=== PATIENT | female | born 1955 | race Caucasian/White ===

== ENCOUNTER 2018-10-20 13:19 | Inpatient (IN) | payer MEDICARE, SELFPAY ==
[2018-10-20 13:20] VITALS: BP 154/105; PULSE 89; RESP 16; TEMP 37.1; O2SAT 97; BMI 44.1
[2018-10-20] MEDS: 0.9% Normal Saline 1,000 ML 1000 ML IV (14:17)
[2018-10-20] MEDS: Morphine 4 MG/ML Syringe IV ×2 (14:17→16:26)
[2018-10-20] MEDS: Ondansetron 4 MG/2 ML Vial IV ×2 (14:17→19:42)
[2018-10-20 14:21] LABS: Absolute Lymphocyte Count 1.23 X10^3/ul (0.83-4.51); Absolute Neutrophil Count 5.7 X10^3/uL (2.0-7.7); Basophil# 0.02 X10^3/uL; Basophil% 0.3 % (0-1); Eosinophil# 0.09 X10^3/uL; Eosinophils% 1.2 % (0-5); Hematocrit 39.9 % (37-47); Hemoglobin 13.1 g/dl (12.0-15.0); Lymphocyte # 1.23 X10^3/ul (4.0); Mean Corp Hgb Conc 32.8 g/gl (32-36); Mean Corpuscular Hgb 28.1 pg (27.0-32.0); Mean Corpuscular Volume 85.6 fL (81-99); Mean Platelet Vol. 9.4 fl (6.2-12.0); Monocyte# 0.69 X10^3/uL; Monocyte% 8.9 % (0-10); Neutrophil # 5.66 X10^3/uL (2.7-7.7); Neutrophil % 73.3 % (47-70); POSITIVE COUNT NO; POSITIVE DIFFERENTIAL NO; POSITIVE MORPHOLOGY NO; Platelet Count 237 K/mm3 (150-450); RBC Distribution Width SD 40.8 fl (35.1-43.9); Red Blood Count 4.66 M/mm3 (4.2-5.4); White Blood Count 7.7 K/mm3 (4.4-11.0)
[2018-10-20 14:40] LABS: ALB/GLOB Ratio 1.1 RATIO (0.9-2.4); AST(SGOT) 21 U/L (15-37); Alanine Aminotransfer ALT/SGPT 17 U/L (13-56); Albumin, Serum 3.9 g/dL (3.2-5.0); Alkaline Phosphatase 84 U/L (45-117); Anion Gap 8 (5-15); BUN 24 mg/dL (7-18); BUN/Creat Ratio 27.7 RATIO (10-20); Calcium,Total 8.5 mg/dL (8.5-10.1); Chloride 107 mmol/L (98-107); Creatinine, Serum 0.86 mg/dL (0.55-1.02); EST Glomerular Filtration Rate 70 mL/min (>60); Est Glom Filt Rate - Afr Amer 85 mL/min (>60); Estimated Creatinine Clearance 50.53 ml/min; Globulin 3.4 g/dL (2.2-4.2); Glucose 96 mg/dL (74-106); Lipase 3101 U/L (73-393); Potassium 4.4 mmol/L (3.5-5.1); Protein, Total 7.3 g/dL (6.4-8.2); Sodium Level 138 mmol/L (136-145)
--- NOTE | 2018-10-20 14:55 | CT_ITS ---
STUDY: CT ABDOMEN AND PELVIS WITH CONTRAST REASON FOR EXAM: Female, 63 years old. Abdominal pain with nausea and vomiting. Body aches. RADIATION DOSAGE (If Supplied By Facility): CTDIvol = ( 15.37 ) mGy, DLP = ( 1200.75 ) mGycm TECHNIQUE: Transaxial images were obtained from the dome of the diaphragm to the symphysis pubis without oral contrast. Isovue 300 100ml IV was administered. Sagittal and coronal images were reconstructed. Individualized dose optimization techniques were used for this CT. COMPARISON: Comparison is made with prior study dated October 07, 2016. FINDINGS: Mild increased markings at the lung bases suggestive of atelectasis. The visualized portions of the heart are within normal limits. Mild dilatation of the intrahepatic biliary ducts. This is unchanged. The patient is status post cholecystectomy. There is mild splenomegaly. Stable 5.5 mm cyst in the posterior lateral aspect of the superior aspect of the spleen. There is diffuse enlargement of the pancreas with stephanie-pancreatic edema suggesting acute pancreatitis. Normal bilateral adrenal glands. Normal right kidney. Normal left kidney. There is a small hiatal hernia. Normal small intestine. There are multiple colonic diverticula consistent with diverticulosis. The appendix is visualized and appears normal. Normal abdominal aorta. Normal inferior vena cava. Normal retroperitoneum. Normal urinary bladder. Normal abdominal wall. Normal osseous structures. CT/Abdomen/Pelvis W IV Cont ONLY IMPRESSION: Mild degree of bibasilar atelectasis. Peripancreatic inflammatory changes suggestive of acute pancreatitis. Electronically Signed: César Do, at 15:31 EDT , Service support ,
[2018-10-20 15:20] VITALS: BP 157/84; PULSE 75; RESP 18; O2SAT 96
--- NOTE | 2018-10-20 15:42 | ED.VISSUMM ---
- ER Visit Summary Date of Service: 10/20/18 Chief Complaint: Abdominal and chest pain History of Present Illness: The patient is a 63 F who tells me that she has not been feeling well for over a month. However yesterday she began to have pain all over her chest all over her abdomen and into her back. She states that the same type of pain when she had pancreatitis several years ago. She had a cholecystectomy at that time and was felt to be gallstone pancreatitis. This morning she had vomiting and the pain was much worse. She sees Dr. Juárez for surgery former smoker Physical Examination: Afebrile vital signs are stable Gen: Well-nourished well-developed morbidly obese Head: Normocephalic atraumatic Eyes: Perrl EOMI ENT: TMs clear no rhinorrhea moist mucous membranes Neck: Supple no lymphadenopathy no JVD nontender CVS: Regular rate rhythm no murmurs normal S1-S2 Respiratory: No distress clear to auscultation bilaterally chest nontender Abdomen: Soft diffusely tender to palpation nondistended normal bowel sounds no masses Back: Nontender Extremity: Nontender no edema Skin: Normal color no rash Neuro: alert orientated ?3 CN II-XII intact normal strength sensation reflexes gait cerebellar Psych: Normal affect normal mood Test Results: White count is normal at 7.7. Lipase elevated 3101. No evidence of biliary obstruction. CT demonstrates peripancreatic inflammatory changes. EKG shows sinus rhythm at a rate of 71 Emergency Department Course and Treatment: Patient received IV fluids Zofran and morphine. Plan is admission Impression: 1. Acute pancreatitis This note was generated with [employer] dictation software. It may contain incorrect words, spelling, and punctuation that were not noted in review of the chart prior to signing ED Disposition - Plan for ED Patient: Referrals: Mauro Hastings MD [Primary Care Provider] -
--- NOTE | 2018-10-20 16:00 | EKG12_ITS ---
Test Reason : ABNL PAIN Blood Pressure : / mmHG Vent. Rate : 066 BPM Atrial Rate : 066 BPM P-R Int : 186 ms QRS Dur : 086 ms QT Int : 424 ms P-R-T Axes : 042 -24 041 degrees QTc Int : 444 ms Normal sinus rhythm Moderate voltage criteria for LVH, may be normal variant Inferior infarct , age undetermined Abnormal ECG Confirmed by INGA GROSSMAN, JORI ([id number]), business editor DEIDRE MENDEZ ([id number]) on 10/23/2018 10:40:04 AM Referred By: Wilbur Wolff Confirmed By:JORI XIONG MD
--- NOTE | 2018-10-20 16:12 | EKG12_ITS ---
Test Reason : ABNL PAIN Blood Pressure : / mmHG Vent. Rate : 071 BPM Atrial Rate : 071 BPM P-R Int : 202 ms QRS Dur : 090 ms QT Int : 422 ms P-R-T Axes : 057 -18 036 degrees QTc Int : 458 ms Normal sinus rhythm Septal infarct , age undetermined Inferior infarct , age undertermined Abnormal ECG Confirmed by INGA GROSSMAN, JORI ([id number]), society editor DEIDRE MENDEZ ([id number]) on 10/24/2018 9:28:35 AM Referred By: Wilbur Wolff Confirmed By:JORI XIONG MD
[2018-10-20] MEDS: 0.9% Normal Saline 1,000 ML 125 ML IV ×2 (16:27→23:45)
--- NOTE | 2018-10-20 16:27 | PCM.HP.STD ---
<Marco Anderson - Last Filed: 10/20/18 16:40> Problem List (1) Pancreatitis, acute Status: Acute (2) Morbid obesity Status: Chronic (3) GERD (gastroesophageal reflux disease) Status: Chronic (4) HLD (hyperlipidemia) Status: Chronic (5) HTN (hypertension) Status: Chronic (6) Depression Status: Chronic History of Present Illness Date of Admission: 10/20/18 Chief Complaint: abdominal pain The patient is a 63 year old F with pmhx of gallstone pancreatitis s/p cholecystectomy, hx morbid obesity, hld, depression, gerd, who presents to the ER with c/o 3 day hx of abdominal pain radiating into the back and chest pain. She describes the pain as being similar to her last episode of pancreatitis. She has sharp pain in the LUQ and midepigastric region, and aching pain in the midsternal region. This has progressively worsened for the last three days. She notes chills at home. This morning she had nausea and vomiting and has been unable to keep down any oral intake. No diarrhea. She had her GB removed after the last episode by Dr. Canas. She does not see a GI specialist. CT abdomen shows pancreatitis. [] Past Medical History Past Medical History (Chronic Problems): Chronic Problems Morbid obesity (Chronic) GERD (gastroesophageal reflux disease) (Chronic) Poor dentition (Chronic) Osteoarthritis (Chronic) HLD (hyperlipidemia) (Chronic) Multiple thyroid nodules (Chronic) biopsies negative for malignancy HTN (hypertension) (Chronic) Depression (Chronic) Obesity (Chronic) Colon polyps (Chronic) Former smoker (Chronic) Allergies No Known Allergies Allergy (Verified 10/20/18 13:19) Home Medications: Ambulatory Orders Medication Instructions Recorded Sertraline HCl [Zoloft] 150 mg PO DAILY 10/03/16 Omeprazole [Prilosec] 20 mg PO DAILY 10/25/16 Quetiapine Fumarate [Seroquel] 50 mg PO DAILY 10/20/18 Simvastatin [Zocor] 40 mg PO QHS 10/20/18 Surgical History: cholecystectomy, hysterectomy - with oophorectomy for fibroids, - - endoscopic removal of colon polyps Psychiatric History: Depression [employer] History: uterine fibroids - She has had a hysterectomy Lives: Alone Smoking Status: Former smoker Tobacco Use: Non-smoker Alcohol: None Drugs: None - *Family History Maternal History Items: Cancer - Mother of colon cancer Paternal History Items: - - Father when she was quite young due to pneumonia Sibling History Items: Cancer - She has a brother who is from lung cancer Review of Systems Constitutional: Reports: Chills. Denies: Fever, Weight Change HEENT: Denies: Head Aches, Sinus Congestion, Sinus Drainage Cardiovascular: Reports: Chest Pain. Denies: Palpitations Respiratory: Reports: Shortness of Breath. Denies: Cough, Shortness of breath at rest, Sputum production Gastrointestinal: Reports: Abdominal Pain, Nausea, Vomiting. Denies: Diarrhea Genitourinary: Denies: Dysuria Musculoskeletal: Denies: Joint Pain, Joint Tenderness Skin: Denies: Rash, Wounds Neurological: Denies: Numbness, Tingling, Focal weakness Psychiatric: Denies: Anxiety, Depression, Homicidal Ideations, Suicidal Ideations Hematologic/ Lymphatic: Denies: Easy Bruising, Easy Bleeding VTE Information - Inpt Only VTE Present on Admission: No VTE Mechan Device Prophylaxis: None VTE Pharm Prophylaxis ordered?: Yes - Physical Exam General: Alert, Oriented x3, Cooperative HEENT: Atraumatic, PERRLA, EOMI, Normocephalic Neck: Supple, No JVD, Negative Carotid Bruits Lungs: Clear to auscultation, Normal air movement Cardiovascular: Regular rate, No murmurs Abdomen: Bowel Sounds Present, Soft, Obese, Tender - worst LUQ, also tender RUQ, midepigastric Extremities: No edema, Capillary Refill Less than 3 Seconds Skin: No rashes, No breakdown Musculoskeletal: No Tenderness to Palpation of Joints or Extremities Neurological: Cranial nerves II-XII grossly intact Psych/Mental Status: Normal Affect, Appropriate, Alert and oriented to time, place, person, mood and affect Vital Signs Temp Pulse Resp BP Pulse Ox 98.8 F 75 18 157/84 H 96 10/20/18 13:20 10/20/18 15:20 10/20/18 15:20 10/20/18 15:20 10/20/18 15:20 Oxygen Delivery Method Room Air Weight: 233 lb 7.512 oz Body Mass Index (BMI) 44.1 Laboratory Tests Past 24 Hrs 10/20/18 10/20/18 13:45 13:45 WBC 7.7 RBC 4.66 Hgb 13.1 Hct 39.9 MCV 85.6 MCH 28.1 MCHC 32.8 RDW 13.0 RDW Differential 40.8 Plt Count 237 MPV 9.4 Immature Gran % (Auto) 0.300 Neut % (Auto) 73.3 H Lymph % (Auto) 16.0 L [place] % (Auto) 8.9 Eos % (Auto) 1.2 Baso % (Auto) 0.3 Absolute Neuts (auto) 5.7 Absolute Lymphs (auto) 1.23 Total Counted Not Reportable Sodium 138 Potassium 4.4 Chloride 107 Carbon Dioxide 23.0 Anion Gap 8 BUN 24 H Creatinine 0.86 Estim Creat Clear Calc 50.53 Est GFR (MDRD) Af Amer 85 Est GFR (MDRD) Non-Af 70 BUN/Creatinine Ratio 27.7 H Glucose 96 Calcium 8.5 Total Bilirubin 0.60 AST 21 ALT 17 Alkaline Phosphatase 84 Total Protein 7.3 Albumin 3.9 Globulin 3.4 Albumin/Globulin Ratio 1.1 Lipase 3101 H Assessment/Plan All Active Problems Increased anion gap metabolic acidosis (Acute) Dehydration (Acute) Pancreatitis, acute (Acute) 1. Acute pancreatitis - abdominal pain/chest pain with elevated lipase, CT abdomen demonstrating pancreatitis. Hx GB pancreatitis, no longer has GB 2/[address] Canas. No WBC elevation, no fever. Intolerant of oral intake at this time. -NPO -IV fluids -supportive care with pain control/antiemetics -check lipase in am -check lipid panel -hold simvastatin, seroquel, omeprazole (all possible causes of pancreatitis) 2. Chest pain - 2/2 above. Troponin and EKG x 2 negative. No hx coronary dz. 3. GERD - iv pepcid. 4. HLD - hold statin given pancreatitis DVT ppx: lovenox This patient was seen by Marco Anderson PA-C under the supervision of Dr. Wolff. <Wilbur Wolff - Last Filed: 10/20/18 21:38> History of Present Illness This 63-year-old female with history of gallstone pancreatitis status post cholecystectomy about [address] Juárez admitted with abdominal pain radiating to back as mentioned above along with elevated lipase H consistent with acute pancreatitis. CT abdomen was done in ER and shows peripancreatic inflammatory changes. Past Medical History Allergies No Known Allergies Allergy (Verified 10/20/18 13:19) - Physical Exam General: Alert, Oriented x3, Cooperative HEENT: Atraumatic, PERRLA, EOMI, Normocephalic Neck: Supple, No JVD, Negative Carotid Bruits Lungs: No rhonchi, No wheeze, No rales, Diminished - Air entry diminished in bilateral lung bases Cardiovascular: Regular rate, No murmurs Abdomen: Bowel Sounds Present, Soft, Obese, Tender Extremities: No edema, Capillary Refill Less than 3 Seconds Skin: No rashes, No breakdown Musculoskeletal: No Tenderness to Palpation of Joints or Extremities, Arthritic Changes Lymphatic: No Cervical, Supraclavicular, or Inguinal Adenopathy Neurological: Cranial nerves II-XII grossly intact, Deep Tendon Reflexes 2+/4 and Symmetrical, Neuro grossly intact Psych/Mental Status: Normal Affect, Appropriate Vital Signs Temp Pulse Resp BP Pulse Ox 98.1 F 77 16 146/69 H 92 10/20/18 19:53 10/20/18 19:53 10/20/18 19:53 10/20/18 19:53 10/20/18 19:53 Oxygen Delivery Method Room Air Weight: 229 lb 0.964 oz Body Mass Index (BMI) 43.2 Intake and Output for Last 24 Hours 10/18/18 10/19/18 10/20/18 22:59 23:59 23:59 Intake Total 141 / 141 Output Total 0 / 0 Balance 141 / 141 Laboratory Tests Past 24 Hrs 10/20/18 10/20/18 13:45 13:45 WBC 7.7 RBC 4.66 Hgb 13.1 Hct 39.9 MCV 85.6 MCH 28.1 MCHC 32.8 RDW 13.0 RDW Differential 40.8 Plt Count 237 MPV 9.4 Immature Gran % (Auto) 0.300 Neut % (Auto) 73.3 H Lymph % (Auto) 16.0 L [place] % (Auto) 8.9 Eos % (Auto) 1.2 Baso % (Auto) 0.3 Absolute Neuts (auto) 5.7 Absolute Lymphs (auto) 1.23 Total Counted Not Reportable Sodium 138 Potassium 4.4 Chloride 107 Carbon Dioxide 23.0 Anion Gap 8 BUN 24 H Creatinine 0.86 Estim Creat Clear Calc 50.53 Est GFR (MDRD) Af Amer 85 Est GFR (MDRD) Non-Af 70 BUN/Creatinine Ratio 27.7 H Glucose 96 Calcium 8.5 Total Bilirubin 0.60 AST 21 ALT 17 Alkaline Phosphatase 84 Total Protein 7.3 Albumin 3.9 Globulin 3.4 Albumin/Globulin Ratio 1.1 Lipase 3101 H Assessment/Plan This patient was seen in conjunction with Marco JIMENEZ. I have independently interviewed and examined the patient and reviewed pertinent history, examination findings, laboratory and plan of management. I have reviewed the note and agree with the documented findings with the few additional points. In brief, patient is admitted for acute abdominal pain and elevated lipase and CT abdomen suggestive of acute pancreatitis. Currently n.p.o., IV fluid and supportive care. If abdominal pain or pancreatitis does not improve will need right upper quadrant sonogram/MRCP to look for CBD or pancreatic duct obstruction I have discussed my assessment with Marco JIMENEZ and orders have been reviewed. Code Visit Inpatient E&M: 93451 Init Hosp L3
[2018-10-20 16:28] VITALS: BMI 44.1
[2018-10-20 16:51] VITALS: BMI 43.2
[2018-10-20 17:01] VITALS: BP 155/83; PULSE 73; RESP 16; TEMP 36.7; O2SAT 95
[2018-10-20] MEDS: Enoxaparin 40 MG/0.4 ML Syringe SC (17:15)
[2018-10-20] MEDS: Morphine 2 MG/ML Syringe IV ×4 (17:16→23:45)
--- NOTE | 2018-10-20 17:44 | CASEMGMT ---
RN CM Assessment Introduced role of RN CM to patient. Patient is alert, oriented and able to participate in RN CM Assessment. Care providers, pharmacy, and demographics verified. Presentation: Admitted for Acute Pancreatitis. Was admitted 10/03-10/11/16 for Gallstone Pancreatitis. CC: Abd pain, Cp, Back pain. PCP: Dr Mauro Hastings Specialists: Cardio- Cannot recall name Preferred Pharmacy: [facility] Insurance: [employer] [facility] Prescription Benefit: Yes LNOK: Dtr Jerri Schwartz Living Arrangements: Lives alone in a ground level apartment, there is a sidewalk with 10 steps to get to her apt, however can go all the way around to avoid stairs. Ambulates with cane, using it more lately d/t dizziness. Independent with ADL's- states has been getting more difficult. 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 Transportation: Patient does not drive; utilizes Taxi, Bus, People. 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 DME: Cane, Shower Chair. Preference through Insurance. HHC: None in past, Preference through Insurance. SNF: [facility]. DC PLAN: Home with no anticipated needs. NOELLE Oshea
[2018-10-20 19:53] VITALS: BP 146/69; PULSE 77; RESP 16; TEMP 36.7; O2SAT 92
[2018-10-20 23:57] VITALS: BP 127/87; PULSE 95; RESP 18; TEMP 36.8; O2SAT 96
[2018-10-21] MEDS: Morphine 2 MG/ML Syringe IV ×7 (02:52→19:48)
[2018-10-21] MEDS: Ondansetron 4 MG/2 ML Vial IV ×3 (02:52→19:48)
[2018-10-21 05:04] VITALS: BP 153/71; PULSE 81; RESP 18; TEMP 36.8; O2SAT 93
[2018-10-21 07:23] LABS: Absolute Lymphocyte Count 0.63 X10^3/ul (0.83-4.51); Absolute Neutrophil Count 6.8 X10^3/uL (2.0-7.7); Basophil# 0.01 X10^3/uL; Basophil% 0.1 % (0-1); Eosinophil# 0.02 X10^3/uL; Eosinophils% 0.2 % (0-5); Hemoglobin 12.6 g/dl (12.0-15.0); Lymphocyte # 0.63 X10^3/ul (4.0); Lymphocyte % 7.8 % (19-41); Mean Corp Hgb Conc 32.3 g/gl (32-36); Mean Corpuscular Volume 86.7 fL (81-99); Mean Platelet Vol. 9.7 fl (6.2-12.0); Monocyte# 0.61 X10^3/uL; Monocyte% 7.6 % (0-10); Neutrophil # 6.78 X10^3/uL (2.7-7.7); Neutrophil % 84.2 % (47-70); POSITIVE COUNT NO; POSITIVE DIFFERENTIAL NO; POSITIVE MORPHOLOGY NO; Platelet Count 236 K/mm3 (150-450); RBC Distribution Width CV 12.8 % (11.6-14.6); RBC Distribution Width SD 41.1 fl (35.1-43.9); White Blood Count 8.1 K/mm3 (4.4-11.0)
[2018-10-21 08:02] LABS: Anion Gap 9 (5-15); BUN 17 mg/dL (7-18); BUN/Creat Ratio 29.7 RATIO (10-20); Calcium,Total 7.9 mg/dL (8.5-10.1); Chloride 109 mmol/L (98-107); Cholesterol 124 mg/dL (200); Creatinine, Serum 0.57 mg/dL (0.55-1.02); EST Glomerular Filtration Rate 113 mL/min (>60); Est Glom Filt Rate - Afr Amer 137 mL/min (>60); Estimated Creatinine Clearance 76.23 ml/min; Glucose 73 mg/dL (74-106); High Density Lipoprotein 49 mg/dL; Lipase 2324 U/L (73-393); Potassium 4.2 mmol/L (3.5-5.1); Sodium Level 140 mmol/L (136-145); Triglycerides 52 mg/dL; Very Low Density Lipoprotein 10 mg/dL (5-40)
[2018-10-21] MEDS: 0.9% Normal Saline 1,000 ML 125 ML IV ×3 (08:06→23:55)
[2018-10-21] MEDS: 0.9% NaCl Peripheral Flush Adult/Peds IV ×4 (08:06→15:07)
[2018-10-21 08:10] VITALS: BP 165/82; PULSE 78; RESP 18; TEMP 37.1; O2SAT 92
[2018-10-21] MEDS: Sertraline 100 MG Tablet 150 MG PO (10:08)
[2018-10-21] MEDS: Enoxaparin 40 MG/0.4 ML Syringe SC (10:08)
--- NOTE | 2018-10-21 13:12 | PCM.PROGNOTE ---
<Marco Anderson - Last Filed: 10/21/18 13:12> Subjective: Pain improved. Chills overnight. Vomited last night. None this AM. Tolerating clears now. No BM yet. - Physical Exam General: Alert, Oriented x3, Cooperative HEENT: Atraumatic, PERRLA, EOMI, Normocephalic Neck: Supple, No JVD, Negative Carotid Bruits Lungs: Clear to auscultation, Normal air movement Cardiovascular: Regular rate, No murmurs Abdomen: Bowel Sounds Present, Soft, Tender - LUQ worst, also Midepigastric. None RUQ. Extremities: No edema, Capillary Refill Less than 3 Seconds Skin: No rashes, No breakdown Musculoskeletal: No Tenderness to Palpation of Joints or Extremities Neurological: Cranial nerves II-XII grossly intact Psych/Mental Status: Normal Affect, Appropriate, Alert and oriented to time, place, person, mood and affect Vital Signs Temp Pulse Resp BP Pulse Ox 98.8 F 78 18 165/82 H 92 10/21/18 08:10 10/21/18 08:10 10/21/18 08:10 10/21/18 08:10 10/21/18 08:10 Oxygen Delivery Method Room Air Weight: 229 lb 0.964 oz Body Mass Index (BMI) 43.2 Intake and Output for Last 24 Hours 10/19/18 10/20/18 10/21/18 23:59 23:59 23:59 Intake Total 855 / 855 662 / 662 Output Total 100 / 100 Balance 755 / 755 662 / 662 Laboratory Tests Past 24 Hrs 10/20/18 10/20/18 10/21/18 13:45 13:45 06:28 WBC 7.7 8.1 RBC 4.66 4.50 Hgb 13.1 12.6 Hct 39.9 39.0 MCV 85.6 86.7 MCH 28.1 28.0 MCHC 32.8 32.3 RDW 13.0 12.8 RDW Differential 40.8 41.1 Plt Count 237 236 MPV 9.4 9.7 Immature Gran % (Auto) 0.300 0.100 Neut % (Auto) 73.3 H 84.2 H Lymph % (Auto) 16.0 L 7.8 L [place] % (Auto) 8.9 7.6 Eos % (Auto) 1.2 0.2 Baso % (Auto) 0.3 0.1 Absolute Neuts (auto) 5.7 6.8 Absolute Lymphs (auto) 1.23 0.63 L Total Counted Not Reportable Not Reportable Sodium 138 Potassium 4.4 Chloride 107 Carbon Dioxide 23.0 Anion Gap 8 BUN 24 H Creatinine 0.86 Estim Creat Clear Calc 50.53 Est GFR (MDRD) Af Amer 85 Est GFR (MDRD) Non-Af 70 BUN/Creatinine Ratio 27.7 H Glucose 96 Calcium 8.5 Total Bilirubin 0.60 AST 21 ALT 17 Alkaline Phosphatase 84 Total Protein 7.3 Albumin 3.9 Globulin 3.4 Albumin/Globulin Ratio 1.1 Triglycerides Cholesterol LDL Cholesterol VLDL Cholesterol HDL Cholesterol Lipase 3101 H 10/21/18 06:28 WBC RBC Hgb Hct MCV MCH MCHC RDW RDW Differential Plt Count MPV Immature Gran % (Auto) Neut % (Auto) Lymph % (Auto) [place] % (Auto) Eos % (Auto) Baso % (Auto) Absolute Neuts (auto) Absolute Lymphs (auto) Total Counted Sodium 140 Potassium 4.2 Chloride 109 H Carbon Dioxide 22.0 Anion Gap 9 BUN 17 Creatinine 0.57 Estim Creat Clear Calc 76.23 Est GFR (MDRD) Af Amer 137 Est GFR (MDRD) Non-Af 113 BUN/Creatinine Ratio 29.7 H Glucose 73 L Calcium 7.9 L Total Bilirubin AST ALT Alkaline Phosphatase Total Protein Albumin Globulin Albumin/Globulin Ratio Triglycerides 52 Cholesterol 124 LDL Cholesterol 65 VLDL Cholesterol 10 HDL Cholesterol 49 Lipase 2324 H Medical Necessity - Tobacco Use Smoking Status: Former smoker Tobacco Use: Non-smoker Assessment/Plan All Active Problems Increased anion gap metabolic acidosis (Acute) Dehydration (Acute) Pancreatitis, acute (Acute) 1. Acute pancreatitis - abdominal pain/chest pain with elevated lipase, CT abdomen demonstrating pancreatitis. Hx GB pancreatitis, no longer has GB 2/[address] Cnaas. No WBC elevation, no fever. -pain and nausea improved -Lipase down -advance diet as tolerated. -IV fluids -supportive care with pain control/antiemetics -lipid panel with normal triglycerides -hold simvastatin, seroquel, omeprazole (all possible causes of pancreatitis) -consider outpatient GI follow up 2. Chest pain - 2/2 above. Troponin and EKG x 2 negative. No hx coronary dz. No further workup. 3. GERD - iv pepcid. 4. HLD - hold statin given pancreatitis 5. Depression - ssri continued. DVT ppx: lovenox This patient was seen by Marco Anderson PA-C under the supervision of Dr. Laboy <Veena Laboy - Last Filed: 10/21/18 16:14> - Physical Exam Vital Signs Temp Pulse Resp BP Pulse Ox 98.2 F 74 18 151/60 H 96 10/21/18 15:00 10/21/18 15:00 10/21/18 15:00 10/21/18 15:00 10/21/18 15:00 Oxygen Delivery Method Room Air Weight: 229 lb 0.964 oz Body Mass Index (BMI) 43.2 Intake and Output for Last 24 Hours 10/19/18 10/20/18 10/21/18 23:59 23:59 23:59 Intake Total 855 / 855 1778 / 1778 Output Total 100 / 100 1100 / 1100 Balance 755 / 755 678 / 678 Laboratory Tests Past 24 Hrs 10/21/18 10/21/18 06:28 06:28 WBC 8.1 RBC 4.50 Hgb 12.6 Hct 39.0 MCV 86.7 MCH 28.0 MCHC 32.3 RDW 12.8 RDW Differential 41.1 Plt Count 236 MPV 9.7 Immature Gran % (Auto) 0.100 Neut % (Auto) 84.2 H Lymph % (Auto) 7.8 L [place] % (Auto) 7.6 Eos % (Auto) 0.2 Baso % (Auto) 0.1 Absolute Neuts (auto) 6.8 Absolute Lymphs (auto) 0.63 L Total Counted Not Reportable Sodium 140 Potassium 4.2 Chloride 109 H Carbon Dioxide 22.0 Anion Gap 9 BUN 17 Creatinine 0.57 Estim Creat Clear Calc 76.23 Est GFR (MDRD) Af Amer 137 Est GFR (MDRD) Non-Af 113 BUN/Creatinine Ratio 29.7 H Glucose 73 L Calcium 7.9 L Triglycerides 52 Cholesterol 124 LDL Cholesterol 65 VLDL Cholesterol 10 HDL Cholesterol 49 Lipase 2324 H Assessment/Plan Patient seen by Marco Anderson PA-C under my supervision Patient was admitted with a complaint of abdominal pain and was found to have elevated lipase and CT also confirmed pancreatitis. He does have a history of previous pancreatitis attributed to gallstones and she is status post cholecystectomy. She is been managed for acute pancreatitis. Patient seen and examined this morning. Abdominal pain had resolved. She had a complaint of nausea and vomiting. She denied any fever chills or palpitations. Review of systems otherwise negative. Labs and vitals reviewed. o/e: Vital Signs Height 5 ft 1 in Weight: 229 lb 0.964 oz Weight in Pounds 229.1 lbs Pulse Ox 96 Temperature 98.2 F Pulse Rate 74 Respiratory Rate 18 Blood Pressure 151/60 Blood Pressure Position Semi-Fowlers General: Alert, Oriented x3, Cooperative HEENT: Atraumatic, PERRLA, EOMI, Normocephalic Neck: Supple, No JVD, Negative Carotid Bruits Lungs: Clear to auscultation, Normal air movement Cardiovascular: Regular rate, No murmurs Abdomen: Bowel Sounds Present, Soft, no abdominal tenderness, no guarding or rebound tenderness. Extremities: No edema, Capillary Refill Less than 3 Seconds Skin: No rashes, No breakdown Musculoskeletal: No Tenderness to Palpation of Joints or Extremities Neurological: Cranial nerves II-XII grossly intact Psych/Mental Status: Normal Affect, Appropriate, Alert and oriented to time, place, person, mood and affect Plan is to is continue hydration with IV fluid. Start on clear liquid diet and advance as tolerated. Continue current pain medication. Rest of management as per Marco Anderson PA-C's note which I have reviewed and agree with. Code Visit Inpatient E&M: 54551 Subs Hosp L3
--- NOTE | 2018-10-21 13:16 | NURSING ---
PT RESTING QUIETLY IN BED, EYES CLOSED, RESP EASY
[2018-10-21 15:00] VITALS: BP 151/60; PULSE 74; RESP 18; TEMP 36.8; O2SAT 96
[2018-10-21 20:00] VITALS: BP 137/97; PULSE 83; RESP 16; TEMP 37.1; O2SAT 97
[2018-10-22] VITALS (10 sets, daily range): BP systolic 155–200; BP diastolic 69–106; PULSE 70–81; RESP 14–18; TEMP 36.6–37.2; O2SAT 92–96
[2018-10-22] MEDS: Ondansetron 4 MG/2 ML Vial IV ×4 (02:54→23:22)
[2018-10-22] MEDS: Morphine 2 MG/ML Syringe IV ×7 (02:54→23:22)
--- NOTE | 2018-10-22 04:29 | NURSING ---
This RN went into patients room to VS and do assessment this Am, patient stated she had vomited again this shift, emesis bag present at bedside- emptied at this RN, bile present. This RN noted that patient was very diaphoretic, patient wanted to take a shower. VS assessed- BP 155/80 and T 98.9. This RN assisted patient into the shower. New bed linens applied during this time.
[2018-10-22] MEDS: 0.9% NaCl Peripheral Flush Adult/Peds IV ×5 (07:25→20:13)
[2018-10-22] MEDS: 0.9% Normal Saline 1,000 ML 125 ML IV ×2 (08:55→17:03)
[2018-10-22] MEDS: Enoxaparin 40 MG/0.4 ML Syringe SC (09:33)
[2018-10-22] MEDS: Sertraline 100 MG Tablet 150 MG PO (09:33)
[2018-10-22] MEDS: proMETHazine 25 MG/ML Syringe 12.5 MG IV ×2 (11:41→20:13)
--- NOTE | 2018-10-22 12:17 | PCM.PROGNOTE ---
<Marco Anderson - Last Filed: 10/22/18 12:17> Subjective: Increased N/V and LUQ / Midepigastric abd pain this AM. Added phenergan/kpad. Discussed careful, slow, trial of clears today - Physical Exam General: Alert, Oriented x3, Cooperative HEENT: Atraumatic, PERRLA, EOMI, Normocephalic Neck: Supple, No JVD, Negative Carotid Bruits Lungs: Clear to auscultation, Normal air movement Cardiovascular: Regular rate, No murmurs Abdomen: Bowel Sounds Present, Soft, Non Tender Extremities: No edema, Capillary Refill Less than 3 Seconds Skin: No rashes, No breakdown Musculoskeletal: No Tenderness to Palpation of Joints or Extremities Neurological: Cranial nerves II-XII grossly intact Psych/Mental Status: Normal Affect, Appropriate, Alert and oriented to time, place, person, mood and affect Vital Signs Temp Pulse Resp BP Pulse Ox 98.3 F 76 14 166/69 H 92 10/22/18 07:42 10/22/18 07:48 10/22/18 07:48 10/22/18 09:39 10/22/18 07:48 Oxygen Delivery Method Room Air Weight: 229 lb 0.964 oz Body Mass Index (BMI) 43.2 Intake and Output for Last 24 Hours 10/20/18 10/21/18 10/22/18 23:59 23:59 23:59 Intake Total 855 / 855 3730 / 3730 657 / 657 Output Total 100 / 100 1600 / 1600 400 / 400 Balance 755 / 755 2130 / 2130 257 / 257 Medical Necessity - Tobacco Use Smoking Status: Former smoker Tobacco Use: Non-smoker Assessment/Plan All Active Problems Increased anion gap metabolic acidosis (Acute) Dehydration (Acute) Pancreatitis, acute (Acute) 1. Acute pancreatitis - increased n/v/pain. Add phenergan/kpad. Advance diet slowly. Possible pancreatitis inducing home meds held. -non drinker -GB removed last admission for pancreatitis -trigs normal -Consider GI eval as o/p 2. Chest pain - 2/2 above. Troponin and EKG x 2 negative. No hx coronary dz. No further workup. 3. GERD - iv pepcid. 4. HLD - hold statin given pancreatitis 5. Depression - ssri continued. DVT ppx: lovenox This patient was seen by Marco Anderson PA-C under the supervision of Dr. Laboy <TamibárbaraVeena - Last Filed: 10/22/18 15:39> - Physical Exam Vital Signs Temp Pulse Resp BP Pulse Ox 98.1 F 76 18 181/78 H 93 10/22/18 14:00 10/22/18 14:00 10/22/18 14:00 10/22/18 14:00 10/22/18 14:00 Oxygen Delivery Method Room Air Weight: 229 lb 0.964 oz Body Mass Index (BMI) 43.2 Intake and Output for Last 24 Hours 10/20/18 10/21/18 10/22/18 23:59 23:59 23:59 Intake Total 855 / 855 3730 / 3730 657 / 657 Output Total 100 / 100 1600 / 1600 400 / 400 Balance 755 / 755 2130 / 2130 257 / 257 Assessment/Plan Patient seen by Marco Anderson PA-C under my supervision Patient complains of nausea and vomiting and inability to tolerate clear liquids overnight. Still complains of mild abdominal pain. Review of systems otherwise negative. Labs and vitals reviewed. o/e: Vital Signs Height 5 ft 1 in Weight: 229 lb 0.964 oz Weight in Pounds 229.1 lbs Pulse Ox 93 Temperature 98.1 F Pulse Rate 76 Respiratory Rate 18 Blood Pressure [BP] 181/78 Blood Pressure 188/91 Blood Pressure Position [BP] Semi-Fowlers Blood Pressure Position Supine General: Alert, Oriented x3, Cooperative HEENT: Atraumatic, PERRLA, EOMI, Normocephalic Neck: Supple, No JVD, Negative Carotid Bruits Lungs: Clear to auscultation, Normal air movement Cardiovascular: Regular rate, No murmurs Abdomen: Bowel Sounds Present, Soft, minimal epigastric tenderness, no guarding or rebound tenderness. Extremities: No edema, Capillary Refill Less than 3 Seconds Skin: No rashes, No breakdown Musculoskeletal: No Tenderness to Palpation of Joints or Extremities Neurological: Cranial nerves II-XII grossly intact Psych/Mental Status: Normal Affect, Appropriate, Alert and oriented to time, place, person, mood and affect Plan is to try to give clear liquids today and advance if she tolerates it. Continue current pain medication continue gentle hydration with IV fluids. Zofran for nausea. Of note, patient's blood pressure has been elevated and has been as high as 200 systolic. He has not a known hypertensive. Abdominal pain may be contributing to this. Will put on IV hydralazine as needed. If BP still remains elevated, will consider starting oral BP meds Rest of management as per Marco Anderson PA-C's note which I have reviewed and agree with. Code Visit Inpatient E&M: 42757 Subs Hosp L3
--- NOTE | 2018-10-22 14:10 | NURSING ---
STUDENT NURSES CHARTING REVIEWED AND USED FOR EDUCATIONAL LEARNING PURPOSES. BY KLAUS GERMAIN
[2018-10-22] MEDS: hydrALAZINE 20 MG/ML Vial 10 MG IV (17:02)
--- NOTE | 2018-10-22 17:17 | NURSING ---
DARNELL HERNANDEZ NOTIFIED OF PT BP 169/106. NEW ORDER RECEIVED.
--- NOTE | 2018-10-22 18:45 | NURSING ---
PT RESTING IN CHAIR, EYES CLOSED, RESP EASY
[2018-10-22] MEDS: Lisinopril 40 MG Tablet PO (20:04)
[2018-10-23] VITALS (15 sets, daily range): BP systolic 155–201; BP diastolic 68–92; PULSE 70–90; RESP 16–20; TEMP 36.8–37.5; O2SAT 94–96
[2018-10-23] MEDS: 0.9% Normal Saline 1,000 ML 125 ML IV ×3 (00:12→17:24)
[2018-10-23] MEDS: 0.9% NaCl Peripheral Flush Adult/Peds IV ×4 (01:07→22:37)
[2018-10-23] MEDS: hydrALAZINE 20 MG/ML Vial 10 MG IV ×4 (04:14→22:37)
[2018-10-23] MEDS: proMETHazine 25 MG/ML Syringe 12.5 MG IV (04:14)
[2018-10-23] MEDS: Morphine 2 MG/ML Syringe IV ×6 (04:17→22:38)
[2018-10-23 06:48] LABS: Absolute Neutrophil Count 8.5 X10^3/uL (2.0-7.7); Basophil# 0.03 X10^3/uL; Basophil% 0.3 % (0-1); Eosinophil# 0.01 X10^3/uL; Eosinophils% 0.1 % (0-5); Hematocrit 36.2 % (37-47); Lymphocyte % 7.9 % (19-41); Mean Corp Hgb Conc 33.1 g/gl (32-36); Mean Corpuscular Hgb 28.4 pg (27.0-32.0); Mean Corpuscular Volume 85.6 fL (81-99); Mean Platelet Vol. 9.8 fl (6.2-12.0); Monocyte# 0.67 X10^3/uL; Monocyte% 6.6 % (0-10); Neutrophil # 8.46 X10^3/uL (2.7-7.7); Neutrophil % 83.7 % (47-70); Platelet Count 248 K/mm3 (150-450); RBC Distribution Width CV 12.6 % (11.6-14.6); RBC Distribution Width SD 38.5 fl (35.1-43.9); Red Blood Count 4.23 M/mm3 (4.2-5.4); White Blood Count 10.1 K/mm3 (4.4-11.0)
[2018-10-23 06:56] LABS: POSITIVE COUNT NO; POSITIVE DIFFERENTIAL NO; POSITIVE MORPHOLOGY NO
[2018-10-23 07:02] LABS: Anion Gap 14 (5-15); BUN 8 mg/dL (7-18); BUN/Creat Ratio 14.9 RATIO (10-20); Calcium,Total 8.5 mg/dL (8.5-10.1); Chloride 109 mmol/L (98-107); Creatinine, Serum 0.54 mg/dL (0.55-1.02); EST Glomerular Filtration Rate 122 mL/min (>60); Est Glom Filt Rate - Afr Amer 148 mL/min (>60); Estimated Creatinine Clearance 80.47 ml/min; Glucose 76 mg/dL (74-106); Potassium 3.9 mmol/L (3.5-5.1); Sodium Level 139 mmol/L (136-145)
[2018-10-23] MEDS: Ondansetron 4 MG/2 ML Vial IV ×2 (08:33→17:07)
[2018-10-23] MEDS: Sertraline 100 MG Tablet 150 MG PO (09:53)
[2018-10-23] MEDS: Enoxaparin 40 MG/0.4 ML Syringe SC (09:54)
[2018-10-23] MEDS: Lisinopril 40 MG Tablet PO (09:54)
--- NOTE | 2018-10-23 11:37 | PCM.PROGNOTE ---
<Rosanna Arteaga - Last Filed: 10/23/18 11:45> Subjective: Patient seen and examined. Continues to complain of abdominal pain although she states improved since admission. Complains of nausea. Tolerating clear liquid diet without emesis. No other complaints. - Physical Exam General: Alert, Oriented x3, Cooperative HEENT: Atraumatic, PERRLA, EOMI, Normocephalic Neck: Supple, No JVD, Negative Carotid Bruits Lungs: Clear to auscultation, Normal air movement Cardiovascular: Regular rate, No murmurs Abdomen: Bowel Sounds Present, Soft, Non Tender, Non-Distended, Obese Extremities: No clubbing, No cyanosis, No edema, Capillary Refill Less than 3 Seconds Skin: No rashes, No breakdown Musculoskeletal: No Tenderness to Palpation of Joints or Extremities Neurological: Cranial nerves II-XII grossly intact, Neuro grossly intact Psych/Mental Status: Normal Affect, Appropriate Vital Signs Temp Pulse Resp BP Pulse Ox 98.6 F 88 16 155/68 H 94 10/23/18 08:20 10/23/18 08:20 10/23/18 08:20 10/23/18 08:20 10/23/18 08:20 Oxygen Delivery Method Room Air Weight: 229 lb 0.964 oz Body Mass Index (BMI) 43.2 Intake and Output for Last 24 Hours 10/21/18 10/22/18 10/23/18 23:59 23:59 23:59 Intake Total 3730 / 3730 2265 / 2265 756 / 756 Output Total 1600 / 1600 1200 / 1200 100 / 100 Balance 2130 / 2130 1065 / 1065 656 / 656 Laboratory Tests Past 24 Hrs 10/23/18 10/23/18 05:58 05:58 WBC 10.1 RBC 4.23 Hgb 12.0 Hct 36.2 L MCV 85.6 MCH 28.4 MCHC 33.1 RDW 12.6 RDW Differential 38.5 Plt Count 248 MPV 9.8 Immature Gran % (Auto) 1.400 H Neut % (Auto) 83.7 H Lymph % (Auto) 7.9 L [place] % (Auto) 6.6 Eos % (Auto) 0.1 Baso % (Auto) 0.3 Absolute Neuts (auto) 8.5 H Absolute Lymphs (auto) 0.80 L Total Counted Not Reportable Sodium 139 Potassium 3.9 Chloride 109 H Carbon Dioxide 16.0 L Anion Gap 14 BUN 8 Creatinine 0.54 L Estim Creat Clear Calc 80.47 Est GFR (MDRD) Af Amer 148 Est GFR (MDRD) Non-Af 122 BUN/Creatinine Ratio 14.9 Glucose 76 Calcium 8.5 Medical Necessity - Tobacco Use Smoking Status: Former smoker Tobacco Use: Non-smoker Assessment/Plan All Active Problems Increased anion gap metabolic acidosis (Acute) Dehydration (Acute) Pancreatitis, acute (Acute) 1. Acute pancreatitis-lipase trending down. Patient reports abdominal pain is improving. Continues to have intermittent nausea. Continue IV fluids. Trend lipase. Continue clear liquids for now. Patient had cholecystectomy 10/25/[address] Canas due to biliary pancreatitis. Anticipate discharge tomorrow if continued improvement with outpatient follow-up with Dr. Canas. 2. Chest pain, resolved-secondary to #1. Troponin negative. EKG without ST-T changes. 3. GERD-continue IV Pepcid. 4. Hyperlipidemia-statin regimen on hold. 5. Depression-continue SSRI. 6. Hypertension-continue lisinopril regimen. DVT prophylaxis-Lovenox subcu This patient was seen by DOM Reyna under the supervision of Dr. Laboy. <Veena Laboy - Last Filed: 10/23/18 15:32> - Physical Exam Vital Signs Temp Pulse Resp BP Pulse Ox 98.3 F 90 20 H 197/87 H 95 10/23/18 14:32 10/23/18 14:32 10/23/18 14:32 10/23/18 14:32 10/23/18 14:32 Oxygen Delivery Method Room Air Weight: 229 lb 0.964 oz Body Mass Index (BMI) 43.2 Intake and Output for Last 24 Hours 10/21/18 10/22/18 10/23/18 23:59 23:59 23:59 Intake Total 3730 / 3730 2265 / 2265 2199 / 2199 Output Total 1600 / 1600 1200 / 1200 500 / 500 Balance 2130 / 2130 1065 / 1065 1699 / 1699 Laboratory Tests Past 24 Hrs 10/23/18 10/23/18 10/23/18 05:58 05:58 05:58 WBC 10.1 RBC 4.23 Hgb 12.0 Hct 36.2 L MCV 85.6 MCH 28.4 MCHC 33.1 RDW 12.6 RDW Differential 38.5 Plt Count 248 MPV 9.8 Immature Gran % (Auto) 1.400 H Neut % (Auto) 83.7 H Lymph % (Auto) 7.9 L [place] % (Auto) 6.6 Eos % (Auto) 0.1 Baso % (Auto) 0.3 Absolute Neuts (auto) 8.5 H Absolute Lymphs (auto) 0.80 L Total Counted Not Reportable Sodium 139 Potassium 3.9 Chloride 109 H Carbon Dioxide 16.0 L Anion Gap 14 BUN 8 Creatinine 0.54 L Estim Creat Clear Calc 80.47 Est GFR (MDRD) Af Amer 148 Est GFR (MDRD) Non-Af 122 BUN/Creatinine Ratio 14.9 Glucose 76 Calcium 8.5 Lipase 406 H Assessment/Plan Patient seen by Rosanna Arteaga NP-Anthony under my supervision Patient seen and examined this morning. She still complains of nausea and some abdominal pain. She states she was unable to keep down much overnight. Denies any fever or chills, palpitations or dizziness or diarrhea. Review of systems otherwise negative. o/e: Vital Signs Height 5 ft 1 in Weight: 229 lb 0.964 oz Weight in Pounds 229.1 lbs Pulse Ox 95 Temperature 98.3 F Pulse Rate 90 Respiratory Rate 20 Blood Pressure [BP] 179/70 Blood Pressure 197/87 Blood Pressure Position [BP] Semi-Fowlers Blood Pressure Position Semi-Fowlers General: Alert, Oriented x3, Cooperative HEENT: Atraumatic, PERRLA, EOMI, Normocephalic Neck: Supple, No JVD, Negative Carotid Bruits Lungs: Clear to auscultation, Normal air movement Cardiovascular: Regular rate, No murmurs Abdomen: Bowel Sounds Present, Soft, minimal epigastric tenderness, no guarding or rebound tenderness. Extremities: No edema, Capillary Refill Less than 3 Seconds Skin: No rashes, No breakdown Musculoskeletal: No Tenderness to Palpation of Joints or Extremities Neurological: Cranial nerves II-XII grossly intact Psych/Mental Status: Normal Affect, Appropriate, Alert and oriented to time, place, person, mood and affect Plan is to advance to full liquids today to see how patient tolerates it. BP continues to be elevated with BP going up into the 200s systolic. She is on PO lisinopril 40mg daily. Will start amlodipine 10mg daily and monitor BP. IV hydralazine prn. Code Visit Inpatient E&M: 38473 Subs Hosp L3
[2018-10-23 12:21] LABS: Lipase 406 U/L (73-393)
--- NOTE | 2018-10-23 14:18 | EKG12_ITS ---
Test Reason : CP Blood Pressure : / mmHG Vent. Rate : 084 BPM Atrial Rate : 084 BPM P-R Int : 176 ms QRS Dur : 086 ms QT Int : 396 ms P-R-T Axes : 059 -21 042 degrees QTc Int : 467 ms Normal sinus rhythm Septal infarct , age undetermined Inferior infarct , age undetermined Abnormal ECG Confirmed by TERESA MCNULTY ([id number]), index editor MURALI NEWELL ([id number]) on 10/27/2018 5:11:33 PM Referred By: Wilbur Wolff Confirmed By:TERESA MCNULTY
[2018-10-23] MEDS: amLODIPine 10 MG Tablet PO (15:37)
[2018-10-23] MEDS: Polyethylene Glycol 3350 17 GM PACKET PO (17:01)
[2018-10-24] VITALS (10 sets, daily range): BP systolic 151–184; BP diastolic 63–100; PULSE 75–89; RESP 16–20; TEMP 36.7–37.1; O2SAT 87–95
[2018-10-24] MEDS: 0.9% Normal Saline 1,000 ML 125 ML IV ×2 (01:10→21:06)
[2018-10-24] MEDS: 0.9% NaCl Peripheral Flush Adult/Peds IV ×4 (05:10→21:06)
[2018-10-24] MEDS: Ondansetron 4 MG/2 ML Vial IV ×2 (05:10→21:07)
[2018-10-24] MEDS: Morphine 2 MG/ML Syringe IV ×2 (05:10→08:14)
[2018-10-24 06:11] LABS: Absolute Lymphocyte Count 0.75 X10^3/ul (0.83-4.51); Absolute Neutrophil Count 9.4 X10^3/uL (2.0-7.7); Basophil# 0.03 X10^3/uL; Basophil% 0.3 % (0-1); Eosinophil# 0.04 X10^3/uL; Eosinophils% 0.4 % (0-5); Hematocrit 35.9 % (37-47); Hemoglobin 11.9 g/dl (12.0-15.0); Lymphocyte # 0.75 X10^3/ul (4.0); Lymphocyte % 6.6 % (19-41); Mean Corp Hgb Conc 33.1 g/gl (32-36); Mean Corpuscular Hgb 28.3 pg (27.0-32.0); Mean Corpuscular Volume 85.3 fL (81-99); Mean Platelet Vol. 9.1 fl (6.2-12.0); Monocyte# 1.04 X10^3/uL; Monocyte% 9.2 % (0-10); Neutrophil # 9.42 X10^3/uL (2.7-7.7); Platelet Count 230 K/mm3 (150-450); RBC Distribution Width CV 13.3 % (11.6-14.6); RBC Distribution Width SD 41.4 fl (35.1-43.9); Red Blood Count 4.21 M/mm3 (4.2-5.4); White Blood Count 11.3 K/mm3 (4.4-11.0)
[2018-10-24 06:20] LABS: POSITIVE COUNT NO; POSITIVE DIFFERENTIAL NO; POSITIVE MORPHOLOGY NO
[2018-10-24 06:21] LABS: ALB/GLOB Ratio 0.8 RATIO (0.9-2.4); AST(SGOT) 13 U/L (15-37); Alanine Aminotransfer ALT/SGPT 15 U/L (13-56); Albumin, Serum 2.8 g/dL (3.2-5.0); Alkaline Phosphatase 85 U/L (45-117); Anion Gap 7 (5-15); BUN 8 mg/dL (7-18); Calcium,Total 7.7 mg/dL (8.5-10.1); Chloride 107 mmol/L (98-107); Creatinine, Serum 0.62 mg/dL (0.55-1.02); EST Glomerular Filtration Rate 104 mL/min (>60); Est Glom Filt Rate - Afr Amer 126 mL/min (>60); Estimated Creatinine Clearance 70.08 ml/min; Globulin 3.4 g/dL (2.2-4.2); Glucose 101 mg/dL (74-106); Potassium 3.6 mmol/L (3.5-5.1); Protein, Total 6.2 g/dL (6.4-8.2); Sodium Level 133 mmol/L (136-145)
[2018-10-24] MEDS: Lisinopril 40 MG Tablet PO (08:05)
[2018-10-24] MEDS: amLODIPine 10 MG Tablet PO (08:10)
--- NOTE | 2018-10-24 10:24 | DCINST_ITS ---
- Discharge Diagnoses Current Active Problems: Current Active and Chronic Problems Morbid obesity (Chronic) GERD (gastroesophageal reflux disease) (Chronic) You will use the following diet at home:: Cardiac Discharge Activity: Return to Normal Activity Call your doctor if you observe: Shortness of breath, Dizziness, Fainting spells, Chest pain Allergies/Adverse Reactions: Allergies No Known Allergies Allergy (Verified 10/20/18 13:19) Medications to take at Discharge Sertraline HCl [Zoloft] 150 mg PO DAILY 10/03/16 Omeprazole [Prilosec] 20 mg PO DAILY 10/25/16 Quetiapine Fumarate [Seroquel] 50 mg PO DAILY 10/20/18 Simvastatin [Zocor] 40 mg PO QHS 10/20/18 Lisinopril 40 mg PO DAILY 10/22/18 Amlodipine [Norvasc] 10 mg PO DAILY #30 tablet 10/24/18 The following prescriptions were given: Amlodipine [Norvasc] 10 mg PO DAILY #30 tablet Primary Care Physician: Mauro Hastings MD [Primary Care Provider] - Please follow up with your Primary Care Physician in: 1 Week Test Results: Test results from this visit will be discussed in further detail at your follow- up appointment, if applicable. Please Follow Up With: Terrence Canas MD When: 1-2 Weeks
--- NOTE | 2018-10-24 10:26 | PCM.DC.SUM ---
<Rosanna Arteaga - Last Filed: 10/24/18 10:31> Discharge Date and Diagnosis Date of Admission: 10/20/18 Date of Discharge: 10/24/18 - Primary Discharge Diagnosis 1. Acute pancreatitis 2. Chest pain, resolved-secondary to #1. 3. GERD 4. Hyperlipidemia 5. Depression 6. Hypertension, poorly controlled - Secondary Discharge Diagnosis Chronic Problems Morbid obesity (Chronic) GERD (gastroesophageal reflux disease) (Chronic) Poor dentition (Chronic) Osteoarthritis (Chronic) HLD (hyperlipidemia) (Chronic) Multiple thyroid nodules (Chronic) biopsies negative for malignancy HTN (hypertension) (Chronic) Depression (Chronic) Obesity (Chronic) Colon polyps (Chronic) Former smoker (Chronic) Hospital Course and Treatment Imaging Results: Diagnostic Data Abdomen/Pelvis CT 10/20/18 14:55 IMPRESSION: Mild degree of bibasilar atelectasis. Peripancreatic inflammatory changes suggestive of acute pancreatitis. Electronically Signed: César Hi, at 15:31 EDT , Service support , Operations: None Procedures: None Summary of Care Provided: The patient is a 63 year old F admitted 10/20/2018 due to abdominal pain. 1. Acute pancreatitis-lipase trended down from 3101 on admission to 406 at discharge. Tolerating regular diet. Patient had cholecystectomy 10/25/[address] Canas due to biliary pancreatitis. Follow-up with primary care physician in 1 week. Follow-up with Dr. Canas in 1-2 weeks. 2. Chest pain, resolved-secondary to #1. Troponin negative. EKG without ST-T changes. 3. GERD-continue home omeprazole regimen. 4. Hyperlipidemia-continue statin. 5. Depression-continue SSRI. 6. Hypertension-continue lisinopril regimen. Blood pressure poorly controlled during admission. Started on amlodipine 10 mg p.o. daily. Patient will need further monitoring at discharge with medication adjustments if necessary. General: Alert, Oriented x3, Cooperative HEENT: Atraumatic, PERRLA, EOMI, Normocephalic Neck: Supple, No JVD, Negative Carotid Bruits Lungs: Clear to auscultation, Normal air movement Cardiovascular: Regular rate, No murmurs Abdomen: Bowel Sounds Present, Soft, Non Tender, Non-Distended, Obese Extremities: No clubbing, No cyanosis, No edema, Capillary Refill Less than 3 Seconds Skin: No rashes, No breakdown Musculoskeletal: No Tenderness to Palpation of Joints or Extremities Neurological: Cranial nerves II-XII grossly intact, Neuro grossly intact Psych/Mental Status: Normal Affect, Appropriate Patient seen and examined prior to discharge. Physical assessment as noted above. Patient is stable for discharge with follow up recommendations as noted above. This patient was seen by DOM Reyna under the supervision of Dr. Laboy. - Physical Exam Vital Signs Temp Pulse Resp BP Pulse Ox 98.4 F 79 18 173/86 H 95 10/24/18 08:03 10/24/18 08:03 10/24/18 08:03 10/24/18 08:03 10/24/18 08:03 Oxygen Delivery Method Room Air Weight: 229 lb 0.964 oz Body Mass Index (BMI) 43.2 Intake and Output for Last 24 Hours 10/22/18 10/23/18 10/24/18 23:59 23:59 23:59 Intake Total 2265 / 2265 2199 / 2199 2302 / 2302 Output Total 1200 / 1200 1100 / 1100 Balance 1065 / 1065 1099 / 1099 2302 / 2302 Laboratory Tests Past 24 Hrs 10/23/18 10/23/18 10/24/18 05:58 22:45 05:28 WBC 11.3 H RBC 4.21 Hgb 11.9 L Hct 35.9 L MCV 85.3 MCH 28.3 MCHC 33.1 RDW 13.3 RDW Differential 41.4 Plt Count 230 MPV 9.1 Immature Gran % (Auto) 0.500 Neut % (Auto) 83.0 H Lymph % (Auto) 6.6 L [place] % (Auto) 9.2 Eos % (Auto) 0.4 Baso % (Auto) 0.3 Absolute Neuts (auto) 9.4 H Absolute Lymphs (auto) 0.75 L Total Counted Not Reportable Sodium Potassium Chloride Carbon Dioxide Anion Gap BUN Creatinine Estim Creat Clear Calc Est GFR (MDRD) Af Amer Est GFR (MDRD) Non-Af BUN/Creatinine Ratio Glucose Calcium Total Bilirubin AST ALT Alkaline Phosphatase Troponin I 0.029 Total Protein Albumin Globulin Albumin/Globulin Ratio Lipase 406 H 10/24/18 05:28 WBC RBC Hgb Hct MCV MCH MCHC RDW RDW Differential Plt Count MPV Immature Gran % (Auto) Neut % (Auto) Lymph % (Auto) [place] % (Auto) Eos % (Auto) Baso % (Auto) Absolute Neuts (auto) Absolute Lymphs (auto) Total Counted Sodium 133 L Potassium 3.6 Chloride 107 Carbon Dioxide 19.0 L Anion Gap 7 BUN 8 Creatinine 0.62 Estim Creat Clear Calc 70.08 Est GFR (MDRD) Af Amer 126 Est GFR (MDRD) Non-Af 104 BUN/Creatinine Ratio 13.0 Glucose 101 Calcium 7.7 L Total Bilirubin 0.60 AST 13 L ALT 15 Alkaline Phosphatase 85 Troponin I Total Protein 6.2 L Albumin 2.8 L Globulin 3.4 Albumin/Globulin Ratio 0.8 L Lipase Discharge Diet: Low fat/ Low Cholesterol Discharge Activity: Return to Normal Activity Call your doctor if you observe: Shortness of breath, Dizziness, Fainting spells, Chest pain Home Medications: Medications to take at Discharge Sertraline HCl [Zoloft] 150 mg PO DAILY 10/03/16 Omeprazole [Prilosec] 20 mg PO DAILY 10/25/16 Quetiapine Fumarate [Seroquel] 50 mg PO DAILY 10/20/18 Simvastatin [Zocor] 40 mg PO QHS 10/20/18 Lisinopril 40 mg PO DAILY 10/22/18 Amlodipine [Norvasc] 10 mg PO DAILY #30 tablet 10/24/18 Following Prescrptions Were Given to Patient: Amlodipine [Norvasc] 10 mg PO DAILY #30 tablet Primary Care Physician: Mauro Hastings MD [Primary Care Provider] - Please follow up with your Primary Care Physician in: 1 Week Please Follow Up With: Terrence Canas MD When: 1-2 Weeks Disposition: Home Minutes spent on discharge:: 35 Patient Condition:: Stable Medical Necessity - Tobacco Use Smoking Status: Former smoker Tobacco Use: Non-smoker Meaningful Use Info Meaningful Use Diagnoses (Choose all that apply): None applicable <Veena Laboy - Last Filed: 10/24/18 15:44> Discharge Date and Diagnosis - Secondary Discharge Diagnosis Chronic Problems Morbid obesity (Chronic) GERD (gastroesophageal reflux disease) (Chronic) Poor dentition (Chronic) Osteoarthritis (Chronic) HLD (hyperlipidemia) (Chronic) Multiple thyroid nodules (Chronic) biopsies negative for malignancy HTN (hypertension) (Chronic) Depression (Chronic) Obesity (Chronic) Colon polyps (Chronic) Former smoker (Chronic) Hospital Course and Treatment Summary of Care Provided: Patient seen by Rosanna FERNANDES under my supervision. The patient is a 63 year old F with a past medical history of gallstone pancreatitis status post cholecystectomy, hyperlipidemia, morbid obesity and GERD. She was admitted through the ED on 10/20/2018 epigastric pain radiating to the back with assisted chest pain. She also had pain in her left upper quadrant and said was similar to the last episode of pancreatitis. She also had assisted nausea and vomiting but no diarrhea. CT of the abdomen confirmed pancreatitis and her lipase was also elevated at around 6000. She was kept n.p.o. and started on IV fluids and pain meds. Pain improved but patient still had which was rated at about 4/5. She initially could not tolerate clear liquid diet a prescription of having nausea and vomiting. This subsided and patient was able to transition to a full liquid diet which she tolerated. Of note, her blood pressure remained elevated during admission despite her being on lisinopril. She was also started on amlodipine 10 mg daily to help control her blood pressure further. Blood pressure control improved and patient remained stable. Of note, because of pancreatitis was not clear during this admission as she noted to have hyper triglyceridemia or hypercalcemia and she had had a cholecystectomy. Patient informed that she would have to follow-up with her primary care doctor for workup of possible autoimmune pancreatitis if pancreatitis recurs. She was discharged home on 10/24/2018. She is follow-up with her primary care doctor in 1 week. Patient seen and examined prior to discharge. She had no complaints and felt well. Review of systems otherwise negative. Labs and vitals reviewed. Home medications reviewed and reconciled. o/e: Vital Signs Height 5 ft 1 in Weight: 229 lb 0.964 oz Weight in Pounds 229.1 lbs Pulse Ox 93 Temperature 98.8 F Pulse Rate 83 Respiratory Rate 16 Blood Pressure [BP] 170/80 Blood Pressure 170/80 Blood Pressure Position [BP] Semi-Fowlers Blood Pressure Position Sitting General: Alert, Oriented x3, Cooperative HEENT: Atraumatic, PERRLA, EOMI, Normocephalic Neck: Supple, No JVD, Negative Carotid Bruits Lungs: Clear to auscultation, Normal air movement Cardiovascular: Regular rate, No murmurs Abdomen: Bowel Sounds Present, Soft, no abdominal tenderness, no guarding or rebound tenderness. Extremities: No edema, Capillary Refill Less than 3 Seconds Skin: No rashes, No breakdown Musculoskeletal: No Tenderness to Palpation of Joints or Extremities Neurological: Cranial nerves II-XII grossly intact Psych/Mental Status: Normal Affect, Appropriate, Alert and oriented to time, place, person, mood and affect [] Plan as above. Management as per Rosanna Arteaga PROFESSOR [employer]IES-C's note which I have reviewed and agree with. - Physical Exam Vital Signs Temp Pulse Resp BP Pulse Ox 98.8 F 83 16 170/80 H 93 10/24/18 11:00 10/24/18 12:23 10/24/18 11:00 10/24/18 12:23 10/24/18 11:00 Oxygen Delivery Method Room Air Weight: 229 lb 0.964 oz Body Mass Index (BMI) 43.2 Intake and Output for Last 24 Hours 10/22/18 10/23/18 10/24/18 23:59 23:59 23:59 Intake Total 2265 / 2265 2199 / 2199 2302 / 2302 Output Total 1200 / 1200 1100 / 1100 Balance 1065 / 1065 1099 / 1099 2302 / 2302 Laboratory Tests Past 24 Hrs 10/23/18 10/24/18 10/24/18 22:45 05:28 05:28 WBC 11.3 H RBC 4.21 Hgb 11.9 L Hct 35.9 L MCV 85.3 MCH 28.3 MCHC 33.1 RDW 13.3 RDW Differential 41.4 Plt Count 230 MPV 9.1 Immature Gran % (Auto) 0.500 Neut % (Auto) 83.0 H Lymph % (Auto) 6.6 L [place] % (Auto) 9.2 Eos % (Auto) 0.4 Baso % (Auto) 0.3 Absolute Neuts (auto) 9.4 H Absolute Lymphs (auto) 0.75 L Total Counted Not Reportable Sodium 133 L Potassium 3.6 Chloride 107 Carbon Dioxide 19.0 L Anion Gap 7 BUN 8 Creatinine 0.62 Estim Creat Clear Calc 70.08 Est GFR (MDRD) Af Amer 126 Est GFR (MDRD) Non-Af 104 BUN/Creatinine Ratio 13.0 Glucose 101 Calcium 7.7 L Total Bilirubin 0.60 AST 13 L ALT 15 Alkaline Phosphatase 85 Troponin I 0.029 Total Protein 6.2 L Albumin 2.8 L Globulin 3.4 Albumin/Globulin Ratio 0.8 L
[2018-10-24] MEDS: Sertraline 100 MG Tablet 150 MG PO (10:48)
[2018-10-24] MEDS: Polyethylene Glycol 3350 17 GM PACKET PO (10:49)
[2018-10-24] MEDS: Enoxaparin 40 MG/0.4 ML Syringe SC (10:50)
--- NOTE | 2018-10-24 11:13 | NURSING ---
BP continues to be elevated. Checked manually by Nai GERMAIN recently. 170/80 manually. This nurse texted Dr. Laboy to inform.
[2018-10-24] MEDS: hydrALAZINE 50 MG Tablet PO (12:23)
--- NOTE | 2018-10-24 16:00 | NURSING ---
Care assumed at this time from Lori Vasquez RN
--- NOTE | 2018-10-24 18:37 | NURSING ---
pt has complaining about abd pain and nausea since eating only a few bites of lunch. Cortexted Dr. Laboy who wanted this nurse to cortext Rosanna Arteaga. Rosanna said she still wants pt to be discharged tonight. Nai GERMAIN in to tell pt. I dont have a ride now they cant come until morning, they said I was staying. This nurse had pt prior to Nai GERMAIN taking over and never once mentioned not leaving today.
--- NOTE | 2018-10-24 19:18 | CT_ITS ---
STUDY: CTA CHEST REASON FOR EXAM: Female, 63 years old. Hypoxia. RADIATION DOSAGE (If Supplied By Facility): CTDIvol = ( 11.35 ) mGy, DLP = ( 483.28 ) mGycm TECHNIQUE: The examination was performed with the intravenous administration of Isovue 370 100ml IV. Post-processing of the angiographic images was performed, with multiplanar reformation and 3D reconstruction. Individualized dose optimization techniques were used for this CT. COMPARISON: CT of the chest, September 25, 2011. FINDINGS: Normal enhancement of the main pulmonary artery and right and left pulmonary arteries. Normal enhancement of the bilateral peripheral pulmonary arteries. There is no demonstrated pulmonary embolism. The ascending thoracic aorta measures 4 x 3.5 cm at the level of the right pulmonary artery. This tapers into the arch. There is minimal degenerative changes of the descending aorta appear The There is no demonstrated aortic dissection. Normal heart and pericardium. Normal mediastinum. Normal hilar regions. Normal visualized trachea and bronchi. The lungs are well expanded. Normal pulmonary parenchyma. Normal pleura. Normal chest wall structures. Normal osseous structures. Calcified granulomata within the dome of the liver. Spleen is borderline enlarged. There is a type I hiatal hernia. CT/CTA Chest W/WO Contrast IMPRESSION: 1. No evidence of pulmonary embolus. 2. Prominent ascending thoracic aorta without dissection. 3. No acute pulmonary disease. 4. Hiatal hernia. 5. Borderline splenomegaly. Electronically Signed: Moshe Valiente DO at 21:37 EDT Tel [phone], Service support ,
--- NOTE | 2018-10-24 19:22 | NURSING ---
Change in vitals, htn and hypoxia. Dr. Laboy made aware of this, cancelled discharge and ordered CT with contrast. Ole GERMAIN aware that nursing attempted IV access x5 from 3 different nurses earlier today and will be up to attempt to re-start iv.
--- NOTE | 2018-10-24 19:29 | NURSING ---
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 jasiel Matos from ED called and states he will be up.
[2018-10-24] MEDS: oxyCODONE 5 MG Tablet PO (21:07)
[2018-10-24] MEDS: hydrALAZINE 20 MG/ML Vial 10 MG IV (21:17)
[2018-10-25 01:15] VITALS: BP 180/80; PULSE 86; RESP 16; TEMP 36.9; O2SAT 94
[2018-10-25 01:18] VITALS: PULSE 86
[2018-10-25] MEDS: hydrALAZINE 20 MG/ML Vial 10 MG IV (01:18)
[2018-10-25] MEDS: oxyCODONE 5 MG Tablet PO ×2 (03:28→09:58)
[2018-10-25 03:29] VITALS: BP 145/73; PULSE 86; RESP 16; TEMP 36.8; O2SAT 93
[2018-10-25] MEDS: 0.9% Normal Saline 1,000 ML 125 ML IV (05:32)
[2018-10-25 09:40] VITALS: BP 146/62; PULSE 92; RESP 16; TEMP 37.1; O2SAT 95
[2018-10-25] MEDS: 0.9% NaCl Peripheral Flush Adult/Peds IV (09:42)
[2018-10-25] MEDS: Enoxaparin 40 MG/0.4 ML Syringe SC (09:42)
[2018-10-25] MEDS: Polyethylene Glycol 3350 17 GM PACKET PO (09:42)
[2018-10-25] MEDS: Lisinopril 40 MG Tablet PO (09:44)
[2018-10-25] MEDS: amLODIPine 10 MG Tablet PO (09:44)
[2018-10-25] MEDS: Sertraline 100 MG Tablet 150 MG PO (09:47)
--- NOTE | 2018-10-25 11:06 | PCM.PROGNOTE ---
<Rosanna Arteaga - Last Filed: 10/25/18 11:10> Subjective: Please date progress note 10/24/2018. Patient was seen and examined. Planed for discharge 10/24/18 however patient had increased pain in the evening and reported she did not have a ride until the next morning. At time of exam, patient denied significant abdominal pain, nausea, vomiting and was tolerating regular diet. - Physical Exam General: Alert, Oriented x3, Cooperative HEENT: Atraumatic, PERRLA, EOMI, Normocephalic Neck: Supple, No JVD, Negative Carotid Bruits Lungs: Clear to auscultation, Normal air movement Cardiovascular: Regular rate, No murmurs Abdomen: Bowel Sounds Present, Soft, Non Tender, Non-Distended, Obese Extremities: No clubbing, No cyanosis, No edema, Capillary Refill Less than 3 Seconds Skin: No rashes, No breakdown Musculoskeletal: No Tenderness to Palpation of Joints or Extremities Neurological: Cranial nerves II-XII grossly intact, Neuro grossly intact Psych/Mental Status: Normal Affect, Appropriate Vital Signs Temp Pulse Resp BP Pulse Ox 98.8 F 92 16 146/62 H 95 10/25/18 09:40 10/25/18 09:40 10/25/18 09:40 10/25/18 09:40 10/25/18 09:40 Oxygen Delivery Method Room Air Weight: 229 lb 0.964 oz Body Mass Index (BMI) 43.2 Intake and Output for Last 24 Hours 10/23/18 10/24/18 10/25/18 23:59 23:59 23:59 Intake Total 2199 / 2199 2702 / 2702 1664 / 1664 Output Total 1100 / 1100 Balance 1099 / 1099 2702 / 2702 1664 / 1664 Medical Necessity - Tobacco Use Smoking Status: Former smoker Tobacco Use: Non-smoker Assessment/Plan All Active Problems Increased anion gap metabolic acidosis (Acute) Dehydration (Acute) Pancreatitis, acute (Acute) 1. Acute pancreatitis-lipase trended down from 3101 on admission to 406 at discharge. Tolerating regular diet. Patient had cholecystectomy 10/25/[address] Canas due to biliary pancreatitis. Follow-up with primary care physician in 1 week. Follow-up with Dr. Canas in 1-2 weeks. 2. Chest pain, resolved-secondary to #1. Troponin negative. EKG without ST-T changes. 3. GERD-continue home omeprazole regimen. 4. Hyperlipidemia-continue statin. 5. Depression-continue SSRI. 6. Hypertension-continue lisinopril regimen. Blood pressure poorly controlled during admission. Started on amlodipine 10 mg p.o. daily. Patient will need further monitoring at discharge with medication adjustments if necessary. DVT prophylaxis-Lovenox sc This patient was seen by DOM Reyna under the supervision of Dr. Laboy. <Veena Laboy - Last Filed: 10/25/18 16:04> - Physical Exam Vital Signs Temp Pulse Resp BP Pulse Ox 98.8 F 92 16 146/62 H 95 10/25/18 09:40 10/25/18 09:40 10/25/18 09:40 10/25/18 09:40 10/25/18 09:40 Oxygen Delivery Method Room Air Weight: 229 lb 0.964 oz Body Mass Index (BMI) 43.2 Intake and Output for Last 24 Hours 10/23/18 10/24/18 10/25/18 23:59 23:59 23:59 Intake Total 2199 / 2199 2702 / 2702 1664 / 1664 Output Total 1100 / 1100 Balance 1099 / 1099 2702 / 2702 1664 / 1664 Assessment/Plan Patient seen my supervision by Rosanna Arteaga NPC She was scheduled to be discharged on 10/24/2018. However on the evening of 5018, patient stated that she did not have a ride. She also complained of chest pain and was found to be hypoxic saturating at 87%. CT angiogram done was negative for PE. Discharge was counseled and patient was to be observed overnight. She was seen earlier in the day and had no complaints. Abdominal pain had improved and she had tolerated a full liquid diet. Review of systems otherwise negative. Labs and vitals reviewed. o/e: Vital Signs Height 5 ft 1 in Weight: 229 lb 0.964 oz Weight in Pounds 229.1 lbs Pulse Ox 93 Temperature 98.8 F Pulse Rate 83 Respiratory Rate 16 Blood Pressure [BP] 170/80 Blood Pressure 170/80 Blood Pressure Position [BP] Semi-Fowlers Blood Pressure Position Sitting General: Alert, Oriented x3, Cooperative HEENT: Atraumatic, PERRLA, EOMI, Normocephalic Neck: Supple, No JVD, Negative Carotid Bruits Lungs: Clear to auscultation, Normal air movement Cardiovascular: Regular rate, No murmurs Abdomen: Bowel Sounds Present, Soft, no abdominal tenderness, no guarding or rebound tenderness. Extremities: No edema, Capillary Refill Less than 3 Seconds Skin: No rashes, No breakdown Musculoskeletal: No Tenderness to Palpation of Joints or Extremities Neurological: Cranial nerves II-XII grossly intact Psych/Mental Status: Normal Affect, Appropriate, Alert and oriented to time, place, person, mood and affect discharge cancelled. Patient was monitored overnight. Rest of management as per Rosanna Sanford's note. Code Visit Inpatient E&M: 58907 Subs Hosp L2
== END 2018-10-25 12:28 | disposition home or self-care (01) | DRG 439 ==
LOC: ED 16:23 → MS3 16:26
PROVIDERS: Family Medicine; Nurse Practitioner Family; Physician Assistant; Admitting Provider Internal Medicine; Emergency Provider Emergency Medicine; Family Provider Family Medicine; PCP Family Medicine; Referring Provider Internal Medicine; Visit Provider Student in an Organized Health Care Education/Training Program
DX: K85.90 Acute pancreatitis without necrosis or infection, unspecified (principal); Z68.41 Body mass index [BMI] 40.0-44.9, adult; E66.01 Morbid (severe) obesity due to excess calories; Z90.49 Acquired absence of other specified parts of digestive tract; Z87.891 Personal history of nicotine dependence; E78.5 Hyperlipidemia, unspecified; F32.9 Major depressive disorder, single episode, unspecified; I10 Essential (primary) hypertension; K21.9 Gastro-esophageal reflux disease without esophagitis; M19.90 Unspecified osteoarthritis, unspecified site
CPT/HCPCS: 36415; 71275; 74177; 80048; 80053; 80061; 83690; 84484; 85025; 93005; 97116; 97162; 97165; 97530; 99285; J7030; Q9967; A4216; J2405; J3490

== ENCOUNTER 2019-04-18 03:55 | Inpatient (IN) | payer MEDICARE, SELFPAY ==
[2019-04-18] VITALS (8 sets, daily range): BP systolic 133–154; BP diastolic 80–90; PULSE 64–73; RESP 14–18; TEMP 36.7–37.4; O2SAT 92–99; BMI 41.3; BMI 41.0
--- NOTE | 2019-04-18 05:06 | ED.VIS.GEN ---
History of Present Illness Chief Complaint: Abd Pain Narrative: This patient is a 63-year-old female who presents with abdominal pain. It began yesterday. She has a sharp pain in the left upper quadrant as well as a deep aching pain. This radiates through to the back. She states it feels exactly the same as prior episodes of pancreatitis. She initially rated her pain a 7 out of 10 on arrival here but states it has worsened. She reports nausea without vomiting. No diarrhea. She has felt hot but has not checked her temperature no documented fevers. She did have pancreatitis in October of this year and states this feels very similar. She also had a hepatobiliary endoscopic ultrasound a couple of weeks ago which was normal. Gastroenterology thought that this may be related to her medications. Past Medical History - Allergies and Home Meds Allergies/Adverse Reactions: Allergies No Known Allergies Allergy (Verified 10/20/18 13:19) Primary Care Physician: Mauro Hastings MD [Primary Care Provider] - Past Medical History: - - Pancreatitis Surgical History: cholecystectomy, hysterectomy - with oophorectomy for fibroids, - - endoscopic removal of colon polyps Smoking Status: Former smoker - Family History Maternal Family History: Reports: Cancer - Mother of colon cancer Paternal Family History: Reports: - - Father when she was quite young due to pneumonia Sibling Family History: Reports: Cancer - She has a brother who is from lung cancer Review of Systems All systems negative except as indicated General: Reports: Sweats Cardiovascular: Denies: Chest pain Respiratory: Denies: Dyspnea Gastrointestinal: Reports: Abdominal pain, Nausea. Denies: Vomiting, Diarrhea Physical Exam Vital Signs/Narrative: Vital Signs Temp Pulse Resp BP Pulse Ox 04/18/19 03:56 98.8 F 64 16 133/88 H 95 Inital Vital Signs reviewed: Yes General: Well nourished Head: Normocephalic ENT: Moist mucous membranes Neck: Supple Cardiovascular: Regular rate Respiratory: No distress Abdomen: Soft, Nondistended, Tender - Epigastric and left upper quadrant tenderness without guarding without rebound Skin: Normal color Neurological: Alert Psychological: Normal affect Diagnostic/Tx/Re-eval Laboratory Results 04/18/19 04/18/19 04:15 04:15 WBC 6.5 RBC 3.99 L Hgb 11.3 L Hct 34.7 L MCV 87.0 MCH 28.3 MCHC 32.6 RDW Std Deviation 39.7 RDW Coeff of Janey 12.6 Plt Count 269 MPV 9.9 Immature Gran % (Auto) 0.300 Neut % (Auto) 73.7 H Lymph % (Auto) 16.0 L Meriwether % (Auto) 8.3 Eos % (Auto) 1.4 Baso % (Auto) 0.3 Absolute Neuts (auto) 4.8 Absolute Lymphs (auto) 1.04 Nucleated RBC % 0 Sodium 143 Potassium 3.4 L Chloride 107 Carbon Dioxide 27.0 Anion Gap 9 BUN 17 Creatinine 0.81 Estim Creat Clear Calc 53.64 Est GFR (MDRD) Af Amer 92 Est GFR (MDRD) Non-Af 76 BUN/Creatinine Ratio 21.0 H Glucose 97 Calcium 8.7 Total Bilirubin 0.60 AST 20 ALT 16 Alkaline Phosphatase 90 Total Protein 7.1 Albumin 3.4 Globulin 3.7 Albumin/Globulin Ratio 0.9 Lipase 988 H - Medical Decision Making Labs notable for lipase of 988. Patient was treated here with IV fluids, morphine, Zofran. She is improved on reevaluation although while sleeping oxygen saturation was 8%. This is likely related to the sedative effect of morphine. She was placed on 2 L oxygen by nasal cannula. She will be admitted to the hospitalist for further symptomatic care and repeat labs. ED Disposition - Plan for ED Patient: Disposition: Acute Care Hospital [facility] Diagnosis: Pancreatitis Referrals: Mauro Hastings MD [Primary Care Provider] -
[2019-04-18 05:15] LABS: Absolute Lymphocyte Count 1.04 X10^3/uL (0.83-4.51); Absolute Neutrophil Count 4.8 X10^3/uL (2.0-7.7); Basophil# 0.02 X10^3/uL; Basophil% 0.3 % (0-1); Eosinophil# 0.09 X10^3/uL; Eosinophils% 1.4 % (0-5); Hematocrit 34.7 % (37-47); Hemoglobin 11.3 g/dL (12.0-15.0); Lymphocyte # 1.04 X10^3/ul (4.0); Mean Corp Hgb Conc 32.6 g/dL (32-36); Mean Corpuscular Hgb 28.3 pg (27.0-32.0); Mean Platelet Vol. 9.9 fl (6.2-12.0); Monocyte# 0.54 X10^3/uL; Monocyte% 8.3 % (0-10); NRBC Flagged by Analyzer 0 % (0-5); Neutrophil # 4.79 X10^3/uL (2.7-7.7); Neutrophil % 73.7 % (47-70); Platelet Count 269 K/mm3 (150-450); RBC Distribution Width CV 12.6 % (11.6-14.6); RBC Distribution Width SD 39.7 fl (35.1-43.9); Red Blood Count 3.99 M/mm3 (4.2-5.4); White Blood Count 6.5 K/mm3 (4.4-11.0)
[2019-04-18] MEDS: Ondansetron 4 MG/2 ML Vial IV ×2 (05:18→16:27)
[2019-04-18] MEDS: Morphine 4 MG/ML Syringe IV ×2 (05:18→07:14)
[2019-04-18] MEDS: 0.9% Normal Saline 1,000 ML 1000 ML IV (05:18)
[2019-04-18 05:27] LABS: ALB/GLOB Ratio 0.9 RATIO (0.9-2.4); AST(SGOT) 20 U/L (15-37); Alanine Aminotransfer ALT/SGPT 16 U/L (13-56); Albumin, Serum 3.4 g/dL (3.2-5.0); Alkaline Phosphatase 90 U/L (45-117); Anion Gap 9 (5-15); BUN 17 mg/dL (7-18); Calcium,Total 8.7 mg/dL (8.5-10.1); Chloride 107 mmol/L (98-107); Creatinine, Serum 0.81 mg/dL (0.55-1.02); EST Glomerular Filtration Rate 76 mL/min (>60); Est Glom Filt Rate - Afr Amer 92 mL/min (>60); Estimated Creatinine Clearance 53.64 ml/min; Globulin 3.7 g/dL (2.2-4.2); Glucose 97 mg/dL (74-106); Lipase 988 U/L (73-393); Potassium 3.4 mmol/L (3.5-5.1); Protein, Total 7.1 g/dL (6.4-8.2); Sodium Level 143 mmol/L (136-145)
--- NOTE | 2019-04-18 06:04 | PCM.HP.STD ---
Problem List (1) Acute recurrent pancreatitis Status: Acute (2) HLD (hyperlipidemia) Status: Chronic (3) HTN (hypertension) Status: Chronic Qualifiers: (4) Increased anion gap metabolic acidosis Status: Inactive History of Present Illness Date of Admission: 04/18/19 Chief Complaint: left sided abdominal pain The patient is a 63 year old F with a significant history of pancreatitis x2 times; cholecystectomy; hypertension; depression and anxiety who presented to emergency department with severe left-sided abdominal pain that radiated to her back. Her pain has been gradually worsening. Her pain started a day before presentation. Her pain increases with movement. Her pain improves when she supports her left side and when she drinks chicken broth.. Associated with her symptoms is anorexia; malaise; nausea without vomiting. At the emergency department patient was found to have severely elevated lipase. She was diagnosed with pancreatitis and was given morphine. Following morphine administration patient was noted to be hypoxic for which reason she was placed on oxygen by nasal cannula. Past Medical History Past Medical History (Chronic Problems): Chronic Problems Morbid obesity (Chronic) GERD (gastroesophageal reflux disease) (Chronic) Poor dentition (Chronic) Osteoarthritis (Chronic) HLD (hyperlipidemia) (Chronic) Multiple thyroid nodules (Chronic) biopsies negative for malignancy HTN (hypertension) (Chronic) Depression (Chronic) Obesity (Chronic) Colon polyps (Chronic) Former smoker (Chronic) Allergies No Known Allergies Allergy (Verified 10/20/18 13:19) Home Medications: Ambulatory Orders Medication Instructions Recorded Sertraline HCl [Zoloft] 150 mg PO DAILY 10/03/16 Omeprazole [Prilosec] 20 mg PO DAILY 10/25/16 Quetiapine Fumarate [Seroquel] 50 mg PO DAILY 10/20/18 Simvastatin [Zocor] 40 mg PO QHS 10/20/18 Lisinopril 40 mg PO DAILY 10/22/18 Amlodipine [Norvasc] 10 mg PO DAILY #30 tab 10/24/18 Surgical History: cholecystectomy, hysterectomy - with oophorectomy for fibroids, - - endoscopic removal of colon polyps 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 Denies: Weight Change HEENT: Denies: Head Aches, Sinus Congestion, Sinus Drainage Cardiovascular: Denies: Chest Pain, Palpitations Respiratory: Denies: Cough, Shortness of breath at rest, Sputum production Gastrointestinal: Reports: Abdominal Pain, Nausea. Denies: Vomiting Genitourinary: Denies: Dysuria Musculoskeletal: Denies: Joint Pain, Joint Tenderness Skin: Denies: Rash, Wounds Neurological: Denies: Numbness, Tingling, Focal weakness Psychiatric: Reports: Anxiety, Depression. Denies: Homicidal Ideations, Suicidal Ideations Hematologic/ Lymphatic: Denies: Easy Bruising, Easy Bleeding VTE Information - Inpt Only VTE Present on Admission: No VTE Mechan Device Prophylaxis: None VTE Pharm Prophylaxis ordered?: Yes Patient Problems: Active and Suspected Problems Pancreatitis (Acute) Acute recurrent pancreatitis (Acute) - Physical Exam General: Alert, Oriented x3, Cooperative HEENT: Atraumatic, PERRLA, EOMI, Normocephalic Neck: Supple, No JVD, Negative Carotid Bruits Lungs: Clear to auscultation, Normal air movement Cardiovascular: Regular rate, No murmurs Abdomen: Bowel Sounds Present, Soft, Tender - severe tenderness of entire left side; mild tenderness of right side. Extremities: No edema, Capillary Refill Less than 3 Seconds Skin: No rashes, No breakdown Musculoskeletal: No Tenderness to Palpation of Joints or Extremities Neurological: Cranial nerves II-XII grossly intact Psych/Mental Status: Normal Affect, Appropriate Vital Signs Temp Pulse Resp BP Pulse Ox 98.8 F 64 16 133/88 H 95 04/18/19 03:56 04/18/19 03:56 04/18/19 03:56 04/18/19 03:56 04/18/19 03:56 Oxygen Delivery Method Room Air Weight: 99.3 kg Body Mass Index (BMI) 41.3 Laboratory Tests Past 24 Hrs 04/18/19 04/18/19 04:15 04:15 WBC 6.5 RBC 3.99 L Hgb 11.3 L Hct 34.7 L MCV 87.0 MCH 28.3 MCHC 32.6 RDW Std Deviation 39.7 RDW Coeff of Janey 12.6 Plt Count 269 MPV 9.9 Immature Gran % (Auto) 0.300 Neut % (Auto) 73.7 H Lymph % (Auto) 16.0 L Bulloch % (Auto) 8.3 Eos % (Auto) 1.4 Baso % (Auto) 0.3 Absolute Neuts (auto) 4.8 Absolute Lymphs (auto) 1.04 Nucleated RBC % 0 Sodium 143 Potassium 3.4 L Chloride 107 Carbon Dioxide 27.0 Anion Gap 9 BUN 17 Creatinine 0.81 Estim Creat Clear Calc 53.64 Est GFR (MDRD) Af Amer 92 Est GFR (MDRD) Non-Af 76 BUN/Creatinine Ratio 21.0 H Glucose 97 Calcium 8.7 Total Bilirubin 0.60 AST 20 ALT 16 Alkaline Phosphatase 90 Total Protein 7.1 Albumin 3.4 Globulin 3.7 Albumin/Globulin Ratio 0.9 Lipase 988 H Assessment/Plan All Active Problems Pancreatitis (Acute) Acute recurrent pancreatitis (Acute) Dehydration (Acute) Pancreatitis, acute (Acute) The patient is a 63 year old F with a significant history of pancreatitis x2 times; cholecystectomy; hypertension; depression and anxiety who presented to emergency department with severe left-sided abdominal pain that radiated to her back; anorexia; malaise; nausea without vomiting and elevated lipase in the setting of recent negative endoscopic ultrasound and two previous history of pancreatitis consistent with likely acute recurrent pancreatitis. Acute recurrent pancreatitis Etiology is unclear at this time. Patient reports that her lipids about a month ago was in controlled range. Patient denies alcoholism. She is post cholecystectomy and recent endoscopic ultrasound was unremarkable. Likely cause would indeed include medication as stated by GI specialist. We will repeat lipid level. Receive normal saline bolus in the emergency department. We will continue patient on lactated Ringer's. Received morphine and Zofran the emergency department. Continue patient on PRN morphine and PRN Zofran. Shared decision with patient to start solid diet as she can tolerate. For now will continue all home medications. In the long-term patient may need changes in her medication to see which of her medications may likely be a culprit of her recurrent pancreatitis. Hypokalemia Likely secondary to intake Potassium supplementation ordered. Trend BMP. Hypertension On presentation her blood pressure was not within goal Lisinopril and amlodipine continued. Trend blood pressure and adjust bp meds GERD Prilosec continued Depression anxiety disorder Seroquel and Zoloft continued DVT prophylaxis Subcutaneous Lovenox.
[2019-04-18 08:15] LABS: Cholesterol 186 mg/dL (200); High Density Lipoprotein 44 mg/dL; Triglycerides 140 mg/dL; Very Low Density Lipoprotein 28 mg/dL (5-40)
[2019-04-18] MEDS: Lactated Ringers 1,000 ML 200 ML IV ×2 (08:15→13:32)
[2019-04-18] MEDS: Pantoprazole Sodium 20 MG Tablet PO (09:47)
[2019-04-18] MEDS: Lisinopril 40 MG Tablet PO (09:47)
[2019-04-18] MEDS: amLODIPine 10 MG Tablet PO (09:47)
[2019-04-18] MEDS: Morphine 2 MG/ML Syringe IV ×5 (10:01→22:14)
--- NOTE | 2019-04-18 11:19 | CM.UR ---
RN CM Assessment Introduced role of RN CM to patient. Patient is alert, oriented and able to participate in RN CM Assessment. Care providers, pharmacy, and demographics verified. Presentation: Abd pain DX: Acute Pancreatitis. PCP: Dr Mauro Hastings Specialists: [facility]. Preferred Pharmacy: [facility] Insurance: [employer] [facility] Prescription Benefit: Yes States no copays since switched to [employer]. LNOK: Daughter Jerri Schwartz LW/HPOA: none; declines information. Living Arrangements: Lives alone in a ground level apartment, there is a sidewalk with 10 steps to get to her apt, however can go around back to avoid stairs. Ambulates with cane. Independent with ADL's. states everything is getting more difficult. Was to have [employer] to see her at home tomorrow to assess needs. Transportation: Patient does not drive; utilizes Taxi, Bus, People. 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 DME: Cane, Shower Chair, wheelchair, rollator. DME co: anyone within network HHC: None in past SNF: [facility]. DC PLAN: Home with no anticipated needs. No Denny RN, CCM.
[2019-04-18] MEDS: Enoxaparin 40 MG/0.4 ML Syringe SC (11:32)
[2019-04-18] MEDS: Sertraline 100 MG Tablet 150 MG PO (11:32)
--- NOTE | 2019-04-18 17:05 | CCHN_ITS ---
Hospitalist Note Patient was seen and examined briefly today, she is still complaining of abdominal pain and receiving IV morphine, she is on a regular diet at this time- I change this to a full liquid diet, I also placed her on continuing vigorous IV fluid. Patient states she was told recently by a specialist that lisinopril or simvastatin could cause pancreatitis-I am not aware of this. Patient confirmed to me that she does not have a gallbladder and she was checked for stones recently via ERCP according to the patient.
[2019-04-18] MEDS: Lactated Ringers 1,000 ML 175 ML IV (18:41)
[2019-04-18] MEDS: Atorvastatin Calcium 20 MG Tablet PO (21:26)
[2019-04-18] MEDS: QUEtiapine 25 MG Tablet 50 MG PO (21:26)
[2019-04-18] MEDS: 0.9% NaCl Peripheral Flush Adult/Peds IV (22:14)
[2019-04-19] MEDS: Lactated Ringers 1,000 ML 175 ML IV ×2 (00:01→05:26)
[2019-04-19] MEDS: 0.9% NaCl Peripheral Flush Adult/Peds IV ×3 (02:01→09:02)
[2019-04-19] MEDS: Ondansetron 4 MG/2 ML Vial IV ×2 (02:01→19:56)
[2019-04-19] MEDS: Morphine 2 MG/ML Syringe IV ×4 (02:01→19:57)
[2019-04-19 02:07] VITALS: BP 162/84; PULSE 78; RESP 16; TEMP 36.8; O2SAT 94
[2019-04-19] MEDS: proCHLORPERazine 10 MG/2 ML Vial 5 MG IV (05:53)
[2019-04-19 06:15] LABS: Anion Gap 8 (5-15); BUN 6 mg/dL (7-18); BUN/Creat Ratio 11.2 RATIO (10-20); Calcium,Total 8.6 mg/dL (8.5-10.1); Chloride 105 mmol/L (98-107); Creatinine, Serum 0.53 mg/dL (0.55-1.02); EST Glomerular Filtration Rate 123 mL/min (>60); Est Glom Filt Rate - Afr Amer 148 mL/min (>60); Estimated Creatinine Clearance 81.98 ml/min; Glucose 97 mg/dL (74-106); Lipase 326 U/L (73-393); Potassium 3.9 mmol/L (3.5-5.1); Sodium Level 138 mmol/L (136-145)
[2019-04-19 07:10] VITALS: O2SAT 94
[2019-04-19 08:07] VITALS: BP 144/68; PULSE 71; RESP 18; TEMP 37.1; O2SAT 98
[2019-04-19] MEDS: Enoxaparin 40 MG/0.4 ML Syringe SC (09:03)
[2019-04-19] MEDS: Lisinopril 40 MG Tablet PO (09:03)
[2019-04-19] MEDS: amLODIPine 10 MG Tablet PO (09:04)
[2019-04-19] MEDS: Pantoprazole Sodium 20 MG Tablet PO (09:04)
[2019-04-19] MEDS: Sertraline 100 MG Tablet 150 MG PO (09:04)
[2019-04-19] MEDS: 0.9% Normal Saline 1,000 ML 100 ML IV ×2 (11:50→21:39)
--- NOTE | 2019-04-19 15:48 | PCM.PROGNOTE ---
Patient Problems: Active and Suspected Problems Pancreatitis (Acute) Acute recurrent pancreatitis (Acute) Subjective: Patient was seen and examined today, she still complains of generalized abdominal pain, lipase today was 326. Patient does not think she is able to go home today, I have decided to keep the patient on IV fluids and to advance diet this afternoon to a full liquid if she is doing better. I look for information in the patient's chart today (paper chart) to see if there is any documentation of what test the patient had in March 2019 at [facility], and talking with my colleagues, it appears that the patient had an endoscopic ultrasound rather than an ERCP at that time. I do not have record of the patient's consultation with GI in [place], her physician is not on-call this weekend and I did not contact the on-call physician to see if I could obtain information. This may have to be done tomorrow. - Physical Exam General: Alert, Oriented x3, Cooperative, No apparent distress, Well developed HEENT: Atraumatic, PERRLA, EOMI, Normocephalic Oral: Moist Mucosa Neck: Supple, No JVD, Trachea Midline, Thyroid Normal Size and Texture Lungs: Clear to auscultation, Normal air movement, No rhonchi, No wheeze, No rales Cardiovascular: Regular rate, No murmurs Abdomen: Bowel Sounds Present, Soft, Hypoactive Bowel Sounds, Tender - Mild diffuse abdominal tenderness is noted to palpation Extremities: No clubbing, No cyanosis, No edema, Capillary Refill Less than 3 Seconds Skin: No rashes, No breakdown Musculoskeletal: No Tenderness to Palpation of Joints or Extremities Neurological: Cranial nerves II-XII grossly intact, Neuro grossly intact, Sensory exam intact to light touch and pain Psych/Mental Status: Normal Affect, Appropriate, Alert and oriented to time, place, person, mood and affect Vital Signs Temp Pulse Resp BP Pulse Ox 98.7 F 71 18 144/68 H 98 04/19/19 08:07 04/19/19 08:07 04/19/19 08:07 04/19/19 08:07 04/19/19 08:07 Oxygen Flow Rate (L/min) 2 Oxygen Delivery Method Room Air Weight: 98.5 kg Body Mass Index (BMI) 41.0 Intake and Output for Last 24 Hours 09/06/19 09/07/19 09/08/19 23:59 23:59 23:59 Intake Total 3839.58 / 3839.58 4131.25 / 4131.25 Output Total 1150 / 1150 3000 / 3000 Balance 2689.58 / 2689.58 1131.25 / 1131.25 Laboratory Tests Past 24 Hrs 04/19/19 05:45 Sodium 138 Potassium 3.9 Chloride 105 Carbon Dioxide 25.0 Anion Gap 8 BUN 6 L Creatinine 0.53 L Estim Creat Clear Calc 81.98 Est GFR (MDRD) Af Amer 148 Est GFR (MDRD) Non-Af 123 BUN/Creatinine Ratio 11.2 Glucose 97 Calcium 8.6 Lipase 326 Medical Necessity - Tobacco Use Smoking Status: Former smoker Assessment/Plan All Active Problems Pancreatitis (Acute) Acute recurrent pancreatitis (Acute) Dehydration (Acute) Pancreatitis, acute (Acute) #1 acute recurrent pancreatitis-etiology unclear at this point, again, patient's physician may need to be contacted tomorrow to obtain records from her consultation at the [facility] in [place]. At this point, I will stop the patient's statin as it has been implicated in causing pancreatitis in certain cases. I will continue to give the patient fluids for now, she will need to be reevaluated tomorrow. #2 hypertension #3 chronic depression #4 GERD Code Visit Inpatient E&M: 71756 Subs Hosp L2
[2019-04-19 15:50] VITALS: BP 149/75; PULSE 74; RESP 18; TEMP 37.2; O2SAT 98
[2019-04-19 19:49] VITALS: BP 151/76; PULSE 79; RESP 16; TEMP 37.2; O2SAT 96
[2019-04-19] MEDS: QUEtiapine 25 MG Tablet 50 MG PO (21:37)
[2019-04-20 00:22] VITALS: BP 144/84; PULSE 76; RESP 18; TEMP 37.1; O2SAT 97
[2019-04-20] MEDS: proCHLORPERazine 10 MG/2 ML Vial 5 MG IV (00:39)
[2019-04-20] MEDS: Morphine 2 MG/ML Syringe IV (00:40)
[2019-04-20 04:59] VITALS: BP 159/86; PULSE 77; RESP 18; TEMP 37; O2SAT 97
[2019-04-20 07:20] VITALS: BP 146/73; PULSE 76; RESP 14; TEMP 36.8; O2SAT 95
[2019-04-20] MEDS: 0.9% Normal Saline 1,000 ML 100 ML IV ×2 (09:30→18:20)
[2019-04-20] MEDS: Enoxaparin 40 MG/0.4 ML Syringe SC (09:48)
[2019-04-20] MEDS: amLODIPine 10 MG Tablet PO (09:48)
[2019-04-20] MEDS: Sertraline 100 MG Tablet 150 MG PO (09:49)
[2019-04-20] MEDS: Pantoprazole Sodium 20 MG Tablet PO (09:49)
[2019-04-20] MEDS: Lisinopril 40 MG Tablet PO (09:49)
--- NOTE | 2019-04-20 10:15 | CASEMGMT ---
Social Work Note NATALIA received note from RN that pt would like [facility]. NATALIA met with pt, introduced self and role at [facility]. Pt is alert and orientated x3. NATALIA asked pt about going to SNF. Pt states well I would prefer to go home. Pt states interest in getting help at home. NATALIA explained that HHC can be arranged and also this worker can make direction home referral to see if pt qualifies for services. Pt states understanding. NATALIA informed pt that JESSA ARORA will be in to see pt in regards to HHC. NATALIA completed and faxed referral form to [facility]. JESSA ARORA updated on pt's request for HHC. Plan: Home with HHC Nai CORDOBA, PRIOR AUTHORIZATION NURSE
--- NOTE | 2019-04-20 12:16 | CASEMGMT ---
Addendum entered by Gee Luna 04/20/19 13:43: [facility] is able to accept referral. Graciela PEACE Addendum entered by Gee Luna 04/20/19 12:56: Return call and message left with Sarah requesting review of referral. Call back information given. Per Maria Del Carmen [facility]- [facility] is [facility]. Original Note: JESSA ARORA Note: Pt declined SNF and plan is home with C. List of [facility] agencies given to patient to review. She states she does not have a preference but would start with [facility] or [facility]. JESSA ARORA called to Sarah [facility]. Message left to inquire re: accepting of pt's insurance. Awaiting return call. Graciela PEACE
[2019-04-20 13:20] VITALS: BP 144/78; PULSE 81; RESP 16; TEMP 36.8; O2SAT 97
--- NOTE | 2019-04-20 13:47 | PN_ITS ---
Patient Problems: Active and Suspected Problems Pancreatitis (Acute) Acute recurrent pancreatitis (Acute) Subjective: The patient does not have pain, tachycardia but he still has abdominal pain with radiation to left upper and lower quadrant and back although it is getting better, 6-8/10 intensity. Patient able to tolerate clear liquid diet advance to soft transitional diet. Vitals/I&O's: Vital Signs Temp Pulse Resp BP Pulse Ox 98.3 F 81 16 144/78 H 97 04/20/19 13:20 04/20/19 13:20 04/20/19 13:20 04/20/19 13:20 04/20/19 13:20 Oxygen Flow Rate (L/min) 2 Oxygen Delivery Method Room Air Weight: 217 lb 2.485 oz Body Mass Index (BMI) 41.0 Intake and Output for Last 24 Hours 04/18/19 04/19/19 04/20/19 23:59 23:59 23:59 Intake Total 3839.58 / 3839.58 6462.92 / 6762.92 1800 / 1800 Output Total 1150 / 1150 3000 / 3400 1250 / 1250 Balance 2689.58 / 2689.58 3462.92 / 3362.92 550 / 550 General: Alert, Oriented x3, Cooperative HEENT: Atraumatic, PERRLA, EOMI, Normocephalic Neck: Supple, No JVD, Negative Carotid Bruits Lungs: Clear to auscultation, Normal air movement, No rhonchi, No wheeze, No rales Cardiovascular: Regular rate, Regular Rhythm, Normal S1, Normal S2, No murmurs Abdomen: Bowel Sounds Present, Soft, Non Tender, Non-Distended Extremities: No edema, Capillary Refill Less than 3 Seconds Skin: No rashes, No breakdown Musculoskeletal: No Tenderness to Palpation of Joints or Extremities, Arthritic Changes Lymphatic: No Cervical, Supraclavicular, or Inguinal Adenopathy Neurological: Cranial nerves II-XII grossly intact, Deep Tendon Reflexes 2+/4 and Symmetrical, Neuro grossly intact Psych/Mental Status: Normal Affect, Appropriate Current Medications Amlodipine Besylate (Norvasc) 10 mg PO DAILY [facility] Last Admin: 04/20/19 09:48 Dose: 10 mg Documented by: Dextrose (D50w Syringe) 0 gm IV X1 PRN; Protocol PRN Reason: Hypoglycemia Enoxaparin Sodium (Lovenox) 40 mg SC DAILY@1000 [facility] Last Admin: 04/20/19 09:48 Dose: 40 mg Documented by: Glucagon () 1 mg IM .X1 PRN PRN Reason: Hypoglycemia Sodium Chloride () 1,000 mls @ 100 mls/hr IV .Q10H [facility] Last Admin: 04/20/19 09:30 Dose: 100 mls/hr Documented by: Lisinopril (Zestril) 40 mg PO DAILY [facility] Last Admin: 04/20/19 09:49 Dose: 40 mg Documented by: Melatonin (Melatonin) 3 mg PO QHS PRN PRN PRN Reason: INSOMNIA Morphine Sulfate () 2 mg IV Q4H PRN PRN PRN Reason: Severe pain (7-05/21) Last Admin: 04/20/19 00:40 Dose: 2 mg Documented by: Ondansetron HCl (Zofran) 4 mg IV Q8H PRN PRN PRN Reason: NAUSEA/VOMITING Last Admin: 04/19/19 19:56 Dose: 4 mg Documented by: Pantoprazole Sodium (Protonix) 20 mg PO DAILY [facility] Last Admin: 04/20/19 09:49 Dose: 20 mg Documented by: Prochlorperazine Edisylate (Compazine Iv) 5 mg IV Q6H PRN PRN PRN Reason: NAUSEA/VOMITING Last Admin: 04/20/19 00:39 Dose: 5 mg Documented by: Quetiapine Fumarate (Seroquel) 50 mg PO QHS [facility] Last Admin: 04/19/19 21:37 Dose: 50 mg Documented by: Sertraline HCl (Zoloft) 150 mg PO DAILY [facility] Last Admin: 04/20/19 09:49 Dose: 150 mg Documented by: Sodium Chloride () 10 - 40 ml IV UD PRN PRN Reason: SALINE FLUSH Last Admin: 04/19/19 09:02 Dose: 10 ml Documented by: Medical Necessity - Tobacco Use Smoking Status: Former smoker Assessment/Plan All Active Problems Pancreatitis (Acute) Acute recurrent pancreatitis (Acute) Dehydration (Acute) Pancreatitis, acute (Acute) The patient is a 63 year old F with a significant history of pancreatitis x2 times; in September 2016 when she had cholecystectomy for presumed gallstone pancreatitis then October 2018; hypertension; depression and anxiety who is being admitted for severe left-sided abdominal pain that radiated to her back; anorexia; malaise; nausea without vomiting and elevated lipase in the setting of recent negative endoscopic ultrasound consistent with acute on recurrent otitis 1 acute on recurrent pancreatitis-that is post lap cholecystectomy: Etiology unclear at this point. Endoscopic ultrasound did not show evidence of p ancreatitis dilatation of CBD. No stone or sludge in CBD. No pseudocyst. At this time, statin is discontinued with hope it will prevent further bouts of pancreatitis. Patient wants nonnarcotic medications therefore on Tylenol and Toradol as needed for mild to moderate and severe pain respectively. Lipid profile within normal limit. Patient advised to follow-up with the [facility] pancreatic specialist for discharge. #2 hypertension: Blood pressure is controlled. #3 chronic depression #4 GERD: On PPI DVT prophylaxis: Discontinue if platelet count drops less than 50,000 or hemoglo bin less than 8 g% on Lovenox 40 mg subcu daily Code Visit Inpatient E&M: 85880 Subs Hosp L2
[2019-04-20 16:22] VITALS: BP 151/83; PULSE 81; RESP 16; TEMP 37.2; O2SAT 97
[2019-04-20] MEDS: 0.9% NaCl Peripheral Flush Adult/Peds IV (16:24)
[2019-04-20] MEDS: Ketorolac 15 MG/ML Vial IV (16:24)
[2019-04-20] MEDS: Acetaminophen 325 MG Tablet 650 MG PO (19:51)
[2019-04-20 19:58] VITALS: BP 146/73; PULSE 81; RESP 16; TEMP 36.6; O2SAT 93
[2019-04-20] MEDS: QUEtiapine 25 MG Tablet 50 MG PO (22:00)
[2019-04-21] MEDS: Ketorolac 15 MG/ML Vial IV ×2 (00:29→09:20)
[2019-04-21] MEDS: 0.9% Normal Saline 1,000 ML 100 ML IV (04:32)
[2019-04-21 04:45] VITALS: BP 151/79; PULSE 85; RESP 18; TEMP 36.5; O2SAT 96
[2019-04-21 09:15] VITALS: BP 161/82; PULSE 85; RESP 18; TEMP 36.8; O2SAT 99
[2019-04-21] MEDS: 0.9% NaCl Peripheral Flush Adult/Peds IV (09:21)
[2019-04-21] MEDS: Pantoprazole Sodium 20 MG Tablet PO (09:21)
[2019-04-21] MEDS: Enoxaparin 40 MG/0.4 ML Syringe SC (09:21)
[2019-04-21] MEDS: amLODIPine 10 MG Tablet PO (09:21)
[2019-04-21] MEDS: Lisinopril 40 MG Tablet PO (09:22)
[2019-04-21] MEDS: Sertraline 100 MG Tablet 150 MG PO (09:22)
[2019-04-21] MEDS: proCHLORPERazine 10 MG/2 ML Vial 5 MG IV (09:34)
--- NOTE | 2019-04-21 10:39 | DCINST_ITS ---
- Discharge Diagnoses Current Active Problems: Current Active and Chronic Problems Pancreatitis (Acute) Acute recurrent pancreatitis (Acute) You will use the following diet at home:: Cardiac - soft diet for 3 days and then advance to solid diet. Discharge Activity: May Not Drive Call your doctor if you observe: Fever of 101 or Higher, Numbness or Tingling, Inability to urinate, Inability to have a bowel movement, Shortness of breath, Dizziness, Fainting spells, Swelling in the ankles, Chest pain, Increased palpitations (irregular heartbeat) Allergies/Adverse Reactions: Allergies No Known Allergies Allergy (Verified 10/20/18 13:19) Medications to take at Discharge Sertraline HCl [Zoloft] 150 mg PO DAILY 10/03/16 Omeprazole [Prilosec] 20 mg PO DAILY 10/25/16 Quetiapine Fumarate [Seroquel] 50 mg PO QHS 10/20/18 Lisinopril 40 mg PO DAILY 10/22/18 Amlodipine [Norvasc] 10 mg PO DAILY #30 tab 10/24/18 Primary Care Physician: Mauro Hastings MD [Primary Care Provider] - Please follow up with your Primary Care Physician in: in 1-2 weeks Test Results: Test results from this visit will be discussed in further detail at your follow- up appointment, if applicable. Please Follow Up With: Terrence Canas MD When: for recurrent pancreatitis
--- NOTE | 2019-04-21 10:41 | PCM.DC.SUM ---
Discharge Date and Diagnosis - Problem List Patient Problems: Active and Suspected Problems Pancreatitis (Acute) Acute recurrent pancreatitis (Acute) Date of Admission: 04/18/19 Date of Discharge: 04/21/19 - Primary Discharge Diagnosis Active and Suspected Problems Pancreatitis (Acute) Acute recurrent pancreatitis (Acute) - Secondary Discharge Diagnosis Chronic Problems Morbid obesity (Chronic) GERD (gastroesophageal reflux disease) (Chronic) Poor dentition (Chronic) Osteoarthritis (Chronic) HLD (hyperlipidemia) (Chronic) Multiple thyroid nodules (Chronic) biopsies negative for malignancy HTN (hypertension) (Chronic) Depression (Chronic) Obesity (Chronic) Colon polyps (Chronic) Former smoker (Chronic) Hospital Course and Treatment Operations: None Summary of Care Provided: [] The patient is a 63 year old F with a significant history of pancreatitis x2 times; in September 2016 when she had cholecystectomy for presumed gallstone pancreatitis then October 2018; hypertension; depression and anxiety who is being admitted for severe left-sided abdominal pain that radiated to her back; anorexia; malaise; nausea without vomiting and elevated lipase in the setting of recent negative endoscopic ultrasound consistent with acute on recurrent otitis 1 acute on recurrent pancreatitis-that is post lap cholecystectomy: Etiology unclear at this point. Endoscopic ultrasound did not show evidence of pancreatitis dilatation of CBD. No stone or sludge in CBD. No pseudocyst. At this time, statin is discontinued with hope it will prevent further bouts of pancreatitis. Patient wants nonnarcotic medications therefore on Tylenol and Toradol as needed for mild to moderate and severe pain respectively. Lipid profile within normal limit. #2 hypertension: Blood pressure is controlled. Home medications continued #3 chronic depression #4 GERD: On PPI DVT prophylaxis: Discontinue if platelet count drops less than 50,000 or hemoglobin less than 8 g% on Lovenox 40 mg subcu daily Discharge medication reconciliation done. Discharge follow-up instructions completed. Discharge process discussed with the patient and all questions were answered to patient's satisfaction. Patient said [facility] pain Pancreatologist discharged her as the endoscopy ultrasound was negative. Patient was advised to follow-up with Dr. Canas, [facility] surgeon if needed for episode of abdominal pain/pancreatitis. Total time spent, exact 35 minutes on discharge meds reconciliation, examination, review of imaging and blood test and discussion with the patient on follow-up instructions. Patient Problems: Active and Suspected Problems Pancreatitis (Acute) Acute recurrent pancreatitis (Acute) Subjective: Seen and examined. Patient does not have abdominal pain. No fever or tachycardia. Patient has tolerated soft diet. Objective: General: Alert, Oriented x3, Cooperative HEENT: Atraumatic, PERRLA, EOMI, Normocephalic Neck: Supple, No JVD, Negative Carotid Bruits Lungs: Clear to auscultation, Normal air movement, No rhonchi, No wheeze, No rales Cardiovascular: Regular rate, Regular Rhythm, Normal S1, Normal S2, No murmurs Abdomen: Bowel Sounds Present, Soft, Non Tender, Non-Distended, no palpable mass Extremities: No edema, Capillary Refill Less than 3 Seconds Skin: No rashes, No breakdown Musculoskeletal: No Tenderness to Palpation of Joints or Extremities, Arthritic Changes Lymphatic: No Cervical, Supraclavicular, or Inguinal Adenopathy Neurological: Cranial nerves II-XII grossly intact, Deep Tendon Reflexes 2+/4 and Symmetrical, Neuro grossly intact Psych/Mental Status: Normal Affect, Appropriate - Physical Exam Vital Signs Temp Pulse Resp BP Pulse Ox 98.3 F 85 18 161/82 H 99 04/21/19 09:15 04/21/19 09:15 04/21/19 09:15 04/21/19 09:15 04/21/19 09:15 Oxygen Flow Rate (L/min) 2 Oxygen Delivery Method Room Air Weight: 217 lb 2.485 oz Body Mass Index (BMI) 41.0 Intake and Output for Last 24 Hours 04/19/19 04/20/19 04/21/19 23:59 23:59 23:59 Intake Total 6462.92 / 6762.92 3721.67 / 3721.67 590 / 590 Output Total 3000 / 3400 2450 / 2450 650 / 650 Balance 3462.92 / 3362.92 1271.67 / 1271.67 -60 / -60 Discharge Activity: May Not Drive Call your doctor if you observe: Fever of 101 or Higher, Numbness or Tingling, Inability to urinate, Inability to have a bowel movement, Shortness of breath, Dizziness, Fainting spells, Swelling in the ankles, Chest pain, Increased palpitations (irregular heartbeat) Home Medications: Medications to take at Discharge Sertraline HCl [Zoloft] 150 mg PO DAILY 10/03/16 Omeprazole [Prilosec] 20 mg PO DAILY 10/25/16 Quetiapine Fumarate [Seroquel] 50 mg PO QHS 10/20/18 Lisinopril 40 mg PO DAILY 10/22/18 Amlodipine [Norvasc] 10 mg PO DAILY #30 tab 10/24/18 Primary Care Physician: Mauro Hastings MD [Primary Care Provider] - Please follow up with your Primary Care Physician in: in 1-2 weeks Please Follow Up With: Terrence Canas MD When: for recurrent pancreatitis Medical Necessity - Tobacco Use Smoking Status: Former smoker Meaningful Use Info Meaningful Use Diagnoses (Choose all that apply): None applicable Code Visit Inpatient E&M: 46148 Disch Hosp
[2019-04-21 13:40] VITALS: BP 157/86; PULSE 87; RESP 18; TEMP 37.1; O2SAT 97
== END 2019-04-21 13:53 | disposition home or self-care (01) | DRG 439 ==
LOC: ED 05:57 → MS3 07:04
PROVIDERS: Admitting Provider Hospitalist; Emergency Provider Emergency Medicine; Family Provider Family Medicine; PCP Family Medicine; Visit Provider Internal Medicine
DX: K85.90 Acute pancreatitis without necrosis or infection, unspecified (principal); Z68.41 Body mass index [BMI] 40.0-44.9, adult; T50.995A Adverse effect of other drugs, medicaments and biological substances, initial encounter; K86.1 Other chronic pancreatitis; E78.5 Hyperlipidemia, unspecified; E66.01 Morbid (severe) obesity due to excess calories; K21.9 Gastro-esophageal reflux disease without esophagitis; E87.6 Hypokalemia; Z87.891 Personal history of nicotine dependence; M19.90 Unspecified osteoarthritis, unspecified site; I10 Essential (primary) hypertension; Z90.49 Acquired absence of other specified parts of digestive tract; Z86.010 Personal history of colon polyps; Z90.710 Acquired absence of both cervix and uterus; Z80.1 Family history of malignant neoplasm of trachea, bronchus and lung; Z80.0 Family history of malignant neoplasm of digestive organs
CPT/HCPCS: 36415; 80048; 80053; 80061; 83690; 85025; 97162; 97165; 97530; 97535; 99285; J7030; J7120; A4216; J2405

== ENCOUNTER 2019-05-20 10:53 | Inpatient (IN) | payer MEDICARE, SELFPAY ==
[2019-05-14 13:54] VITALS: BMI 40.3
[2019-05-20 10:57] VITALS: BP 141/67; PULSE 67; PULSE 78; RESP 16; RESP 18; TEMP 37.1; O2SAT 98; BMI 40.9
--- NOTE | 2019-05-20 11:21 | EKG12_ITS ---
Test Reason : ABDNL PAIN Blood Pressure : / mmHG Vent. 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
--- NOTE | 2019-05-20 11:23 | ED.VIS.GEN ---
History of Present Illness Chief Complaint: Abd Pain Informant: Patient Onset: Yesterday Context: Gradual Onset Timing: Continuous Narrative: Patient is a 63-year-old female with history of pancreatitis, initially thought to be gallstone pancreatitis, presenting with abdominal pain. Patient states last night she developed pain in her left upper quadrant. The pain is also now in her left lower chest. It worsened this morning when she woke up. She had an episode of vomiting and has associated nausea. Her bowel movements have been normal. She denies any blood in her vomit. She describes her emesis is green in color. She states this feels like her prior episodes of pancreatitis. She denies any alcohol use. She does not use any illicit drugs has not had any recent medication changes. Patient does not know why she always gets pancreatitis. She denies any other complaints at this time. Past Medical History - Allergies and Home Meds Allergies/Adverse Reactions: Allergies No Known Allergies Allergy (Verified 05/20/19 10:54) Past Medical History: - - Depression, hypertension, hyperlipidemia, pancreatitis, abdominal aorta aneurysm- monitored Surgical History: cholecystectomy, hysterectomy - with oophorectomy for fibroids, - - endoscopic removal of colon polyps Smoking Status: Former smoker - Family History Maternal Family History: Family History (Last Reviewed 05/14/19 @ 13:58 by Sarah Covington) Mother Colon cancer Father Cancer Sister Breast cancer Brother Cancer Family History: Reports: Cancer - Mother of colon cancer Paternal Family History: Family History (Last Reviewed 05/14/19 @ 13:58 by Sarah Covington) Mother Colon cancer Father Cancer Sister Breast cancer Brother Cancer Family History: Reports: - - Father when she was quite young due to pneumonia Sibling Family History: Family History (Last Reviewed 05/14/19 @ 13:58 by Sarah Covington) Mother Colon cancer Father Cancer Sister Breast cancer Brother Cancer Family History: Reports: Cancer - She has a brother who is from lung cancer Review of Systems All systems negative except as indicated Cardiovascular: Reports: Chest pain - left lower chest Gastrointestinal: Reports: Abdominal pain, Nausea, Vomiting Physical Exam Vital Signs/Narrative: Vital Signs Temp Pulse Resp BP Pulse Ox 05/20/19 10:57 98.7 F 67 18 141/67 H 98 Inital Vital Signs reviewed: Yes General: Well nourished, Well developed, No Acute Distress Head: Normocephalic, Atraumatic Eyes: Perrl, EOMI ENT: Moist mucous membranes, No rhinorrhea Neck: Supple, Nontender Cardiovascular: Regular rate, Regular rhythm, No murmurs Respiratory: No distress, CTA bilaterally, Chest nontender Abdomen: Soft, Nondistended, Normal bowel sounds, Tender - LUQ/epigastric. Negative for: Guarding, Rebound tenderness, Pulsatile mass Back: Nontender, Normal Inspection Extremities: Nontender, No edema Skin: Normal color, No rash Neurological: Alert, Oriented x3, Cranial nerves II-XII grossly intact, Normal Strength, Normal Sensation Psychological: Normal affect, Normal Mood Diagnostic/Tx/Re-eval Chest X-Ray - ED: 2 View, Read by ED Physician, Read by Radiologist, No Acute Disease Clinical Impression(s) from Imaging Studies Chest X-Ray 05/20/19 12:13 IMPRESSION: Normal chest. Electronically Signed: Salvador Hamm, at 12:38 EDT Tel , Service support , Laboratory Data 05/20/19 05/20/19 05/20/19 11:43 11:43 11:43 WBC 6.8 RBC 3.92 L Hgb 11.0 L Hct 34.3 L MCV 87.5 MCH 28.1 MCHC 32.1 RDW Std Deviation 43.1 RDW Coeff of Janey 13.4 Plt Count 220 MPV 10.2 Immature Gran % (Auto) 0.300 Neut % (Auto) 74.9 H Lymph % (Auto) 15.6 L Swain % (Auto) 7.6 Eos % (Auto) 1.2 Baso % (Auto) 0.4 Absolute Neuts (auto) 5.1 Absolute Lymphs (auto) 1.06 Nucleated RBC % 0 Sodium 139 Potassium 3.7 Chloride 107 Carbon Dioxide 22.0 Anion Gap 10 BUN 17 Creatinine 0.87 Estim Creat Clear Calc 49.94 Est GFR (MDRD) Af Amer 85 Est GFR (MDRD) Non-Af 70 BUN/Creatinine Ratio 19.6 Glucose 55 L Lactic Acid 0.6 Calcium 8.7 Total Bilirubin 0.70 Direct Bilirubin 0.17 AST 28 ALT 18 Alkaline Phosphatase 90 Troponin I < 0.015 Total Protein 6.6 Albumin 3.1 L Globulin 3.5 Lipase Urine Color Urine Clarity Urine pH Ur Specific [place] Urine Protein Urine Glucose (UA) Urine Ketones Urine Occult Blood Urine Nitrite Urine Bilirubin Urine Urobilinogen Ur Leukocyte Esterase Urine RBC Urine WBC Ur Squamous Epith Cells Urine Bacteria Urine Mucus 05/20/19 05/20/19 11:43 13:28 WBC RBC Hgb Hct MCV MCH MCHC RDW Std Deviation RDW Coeff of Janey Plt Count MPV Immature Gran % (Auto) Neut % (Auto) Lymph % (Auto) Swain % (Auto) Eos % (Auto) Baso % (Auto) Absolute Neuts (auto) Absolute Lymphs (auto) Nucleated RBC % Sodium Potassium Chloride Carbon Dioxide Anion Gap BUN Creatinine Estim Creat Clear Calc Est GFR (MDRD) Af Amer Est GFR (MDRD) Non-Af BUN/Creatinine Ratio Glucose Lactic Acid Calcium Total Bilirubin Direct Bilirubin AST ALT Alkaline Phosphatase Troponin I Total Protein Albumin Globulin Lipase 536 H Urine Color Yellow Urine Clarity Sl. Cloudy Urine pH 5.0 Ur Specific [place] 1.020 Urine Protein 15 H Urine Glucose (UA) Normal Urine Ketones 150 H Urine Occult Blood Negative Urine Nitrite Negative Urine Bilirubin Negative Urine Urobilinogen Normal Ur Leukocyte Esterase 25 H Urine RBC 0 SEEN Urine WBC 0-5 SEEN Ur Squamous Epith Cells 0-5 SEEN Urine Bacteria 0 SEEN Urine Mucus 0 SEEN - Rhythm Strip Rhythm Strip: Sinus Rhythm Rate: 67 Ectopy: None - EKG Initial EKG Interpretation: Sinus Rhythm, - - Normal sinus rhythm at a rate of 67 SC interval 168 QRS 84 QT/QTc 424/448 Left axis deviation Normal ST segments - Medical Decision Making Patient is evaluated for worsening right upper quadrant abdominal pain which is consistent with her prior episodes of pancreatitis. She appears nontoxic in no acute distress. Patient is given IV morphine and Zofran for her pain and nausea control. Patient does have an elevated lipase but otherwise her lab work is normal. Her urinalysis does show 150 ketones consistent with dehydration. Patient recently had a CT of the abdomen and pelvis for similar presentation a month ago I did not repeat it at this time. Patient did complain of some associated chest pain but I think this is also from pancreatitis. EKG and troponin are normal. Patient does require re-dose of morphine in the emergency room. She is intermittently hypertensive with a systolic pressure above 180 however she did not take her blood pressure medication today. Patient is initially order her home dose of Norvasc as well as IV labetalol, however her blood pressure improved with a re-dose of morphine. Patient labetalol order is canceled and she is given her Norvasc. Patient be admitted to [facility] floor for further evaluation. She is agreeable with this. She stable for the general medical floor at time of disposition. Discussed the case with Dr. Branham. ED Disposition - Plan for ED Patient: Disposition: Acute Care [facility] Diagnosis: Pancreatitis, Dehydration
[2019-05-20] MEDS: Ondansetron 4 MG/2 ML Vial IV ×2 (11:41→20:02)
[2019-05-20] MEDS: Morphine 4 MG/ML Syringe IV ×2 (11:42→15:06)
[2019-05-20] MEDS: 0.9% Normal Saline 1,000 ML 1000 ML IV (11:42)
[2019-05-20 11:54] LABS: Absolute Lymphocyte Count 1.06 X10^3/uL (0.83-4.51); Absolute Neutrophil Count 5.1 X10^3/uL (2.0-7.7); Basophil# 0.03 X10^3/uL; Basophil% 0.4 % (0-1); Eosinophil# 0.08 X10^3/uL; Eosinophils% 1.2 % (0-5); Hematocrit 34.3 % (37-47); Lymphocyte # 1.06 X10^3/ul (4.0); Lymphocyte % 15.6 % (19-41); Mean Corp Hgb Conc 32.1 g/dL (32-36); Mean Corpuscular Hgb 28.1 pg (27.0-32.0); Mean Corpuscular Volume 87.5 fL (81-99); Mean Platelet Vol. 10.2 fl (6.2-12.0); Monocyte# 0.52 X10^3/uL; Monocyte% 7.6 % (0-10); NRBC Flagged by Analyzer 0 % (0-5); Neutrophil % 74.9 % (47-70); Platelet Count 220 K/mm3 (150-450); RBC Distribution Width CV 13.4 % (11.6-14.6); RBC Distribution Width SD 43.1 fl (35.1-43.9); Red Blood Count 3.92 M/mm3 (4.2-5.4); White Blood Count 6.8 K/mm3 (4.4-11.0)
[2019-05-20 12:12] LABS: AST(SGOT) 28 U/L (15-37); Alanine Aminotransfer ALT/SGPT 18 U/L (13-56); Albumin, Serum 3.1 g/dL (3.2-5.0); Alkaline Phosphatase 90 U/L (45-117); Anion Gap 10 (5-15); BUN 17 mg/dL (7-18); BUN/Creat Ratio 19.6 RATIO (10-20); Bilirubin, Direct 0.17 mg/dL (0.00-0.30); Calcium,Total 8.7 mg/dL (8.5-10.1); Chloride 107 mmol/L (98-107); Creatinine, Serum 0.87 mg/dL (0.55-1.02); EST Glomerular Filtration Rate 70 mL/min (>60); Est Glom Filt Rate - Afr Amer 85 mL/min (>60); Estimated Creatinine Clearance 49.94 ml/min; Globulin 3.5 g/dL (2.2-4.2); Glucose 55 mg/dL (74-106); Potassium 3.7 mmol/L (3.5-5.1); Protein, Total 6.6 g/dL (6.4-8.2); Sodium Level 139 mmol/L (136-145)
--- NOTE | 2019-05-20 12:13 | RAD_ITS ---
EXAM DESCRIPTION: PA and lateral chest CLINICAL HISTORY: 63 years Female, chest pain COMPARISON: Previous CT scan of the chest obtained on 10/24/2018 FINDINGS: The thorax is intact. The heart and mediastinum appear to be within normal limits. The lungs appear to be well areated without evidence of pneumonic consolidation or pleural effusion. RAD/Chest PA and Lateral IMPRESSION: Normal chest. Electronically Signed: Salvador Hansel, at 12:38 EDT Tel , Service support ,
[2019-05-20 12:17] LABS: Lactic Acid 0.6 mmol/L (0.4-2.0)
[2019-05-20 13:26] VITALS: BP 130/59
[2019-05-20 13:47] LABS: Lipase 536 U/L (73-393)
[2019-05-20 13:48] LABS: Bacteria 0 SEEN /hpf (None Seen); Mucous, Urine 0 SEEN /hpf (<or=2+); Red Blood Cells-Urine 0 SEEN /hpf (0-5)
[2019-05-20 14:04] LABS: Color, Urine Yellow (Yellow); Glucose, Dipstick Normal (Normal); Leukocyte Esterase-Dipstick 25 /ul (Negative); Nitrite-Dipstick Negative (Negative); Occult Blood-Urine Negative /ul (Negative); Protein-Dipstick 15 mg/dl (Negative); Urine Bilirubin Dipstick Negative (Negative); Urine Clarity Sl. Cloudy (Clear); Urine Urobilinogen Normal (Normal)
[2019-05-20 14:10] LABS: Ketone-Dipstick 150 mg/dl (Negative)
[2019-05-20 14:14] LABS: Squamous Epithelial Cells - UA 0-5 SEEN /hpf (5-10); White Blood Cells 0-5 SEEN /hpf (0-5)
--- NOTE | 2019-05-20 14:19 | PCM.HP.STD ---
Problem List (1) Acute recurrent pancreatitis Status: Acute (2) Anxiety and depression Status: Chronic (3) Pure hypercholesterolemia Status: Chronic (4) Thoracic aortic aneurysm without rupture Status: Chronic (5) Essential hypertension Status: Chronic (6) Morbid obesity Status: Chronic (7) GERD (gastroesophageal reflux disease) Status: Chronic Qualifiers: Esophagitis presence: esophagitis presence not specified Qualified Code(s): K21.9 - Gastro-esophageal reflux disease without esophagitis History of Present Illness Date of Admission: 05/20/19 Chief Complaint: Abdominal pain The patient is a 63 y/o F w/ PMHx: Morbid Obesity, HTN, HLD, Former Tobacco use, Anxiety and Depression, GERD, Hx Thoracic AA without rupture, Hx Thyroid nodules, Hx Pancreatitis with recent discharge on 04/21/2019 with acute recurrent pancreatitis with history status post cholecystectomy 10/2018 with presumed history of gallstone pancreatitis at that time per who re-presents to the [facility] ED on 05/20/19 with history of onset epigastric and left upper quadrant abdominal pain, severe, 10 out of 10 with associated nausea and emesis, not improving with lack of oral intake vomiting eventual ED presentation starting the evening prior and continuing. Work-up in the ED included T 98.7, heart rate 78, BP 141/67, respiratory rate 16, 98% on room air, CBC with WBC 6.8, hemoglobin 11, platelet 220 without market shift, CMP with glucose 55 otherwise not market appearing, troponin less than 0.015, lipase 536, urinalysis with elevated specific gravity, 150 ketones suggestive of dehydration otherwise no acute obvious evidence of UTI, chest x-ray with no acute cardiopulmonary findings. In the ED patient ministered normal saline, Zofran, morphine. Past Medical History Past Medical History (Chronic Problems): Chronic Problems (Last Reviewed 05/14/19 @ 13:58 by Sarah Covington) Anxiety and depression (Chronic) Pure hypercholesterolemia (Chronic) Thoracic aortic aneurysm without rupture (Chronic) Essential hypertension (Chronic) Morbid obesity (Chronic) GERD (gastroesophageal reflux disease) (Chronic) Medical History: Medical History (Last Reviewed 05/14/19 @ 13:58 by Sarah Covington) Pure hypercholesterolemia (Chronic) E78.00 Thoracic aortic aneurysm without rupture (Chronic) I71.2 Essential hypertension (Chronic) I10 Morbid obesity (Chronic) E66.01 GERD (gastroesophageal reflux disease) (Chronic) K21.9 Pancreatitis (Acute) K85.90 Acute recurrent pancreatitis (Acute) K85.90 Colon polyps K63.5 Depression F32.9 Former smoker Z87.891 Lung nodules R91.8 Multiple thyroid nodules E04.2 biopsies negative for malignancy Obesity E66.9 Osteoarthritis M19.90 Poor dentition K08.9 Allergies No Known Allergies Allergy (Verified 05/20/19 10:54) Home Medications: Ambulatory Orders Medication Instructions Recorded Sertraline HCl [Zoloft] 150 mg PO DAILY 10/03/16 Omeprazole [Prilosec] 20 mg PO DAILY 10/25/16 Quetiapine Fumarate [Seroquel] 50 mg PO QHS 10/20/18 Lisinopril 40 mg PO DAILY 10/22/18 Amlodipine [Norvasc] 10 mg PO DAILY #30 tab 10/24/18 metoprolol succinate ER 25 mg 25 mg PO DAILY #30 tab 05/14/19 tablet,extended release 24 hr Surgical History: Surgical History (Last Reviewed 05/14/19 @ 13:58 by Sarah Covington) History of carpal tunnel surgery Z98.890 History of cholecystectomy Z90.49 History of total hysterectomy Z90.710 Surgical History: cholecystectomy, hysterectomy - with oophorectomy for fibroids, - - Endoscopic removal of colon polyps, cholecystectomy, hysterectomy, bilateral carpal tunnel surgery. 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 Tobacco Use: Non-smoker Alcohol: None Drugs: None - *Family History Maternal Family History: Family History (Last Reviewed 05/14/19 @ 13:58 by Sarah Covington) Mother Colon cancer Father Cancer Sister Breast cancer Brother Cancer History Items: Cancer - Mother of colon cancer Paternal Family History: Family History (Last Reviewed 05/14/19 @ 13:58 by Sarah Covington) Mother Colon cancer Father Cancer Sister Breast cancer Brother Cancer History Items: - - Father when she was quite young due to pneumonia Sibling Family History: Family History (Last Reviewed 05/14/19 @ 13:58 by Sarah Covington) Mother Colon cancer Father Cancer Sister Breast cancer Brother Cancer History Items: Cancer - She has a brother who is from lung cancer Review of Systems Constitutional: Reports: Anorexia, Malaise, Weakness, Fatigue. Denies: Chills, Fever, Weight Change HEENT: Denies: Head Aches, Sinus Congestion, Sinus Drainage Cardiovascular: Denies: Chest Pain, Palpitations Respiratory: Denies: Cough, Shortness of breath at rest, Sputum production Gastrointestinal: Reports: Abdominal Pain, Nausea, Vomiting Genitourinary: Denies: Dysuria Musculoskeletal: Reports: Joint Pain. Denies: Joint Tenderness Skin: Denies: Rash, Wounds Neurological: Denies: Numbness, Tingling, Focal weakness Psychiatric: Reports: Anxiety, Depression. Denies: Homicidal Ideations, Suicidal Ideations Hematologic/ Lymphatic: Denies: Easy Bruising, Easy Bleeding VTE Information - Inpt Only VTE Present on Admission: No VTE Mechan Device Prophylaxis: SCD's VTE Pharm Prophylaxis ordered?: Yes Subjective: Laying in the ED bed, notes ongoing discomfort to the epigastric region, emesis bag in hand, mildly improved since initial ED presentation. Objective: Physical Examination: General: awake, alert, oriented x 3 and cooperative, seated upright in the ED bed, fatigued, mildly ear appearing, holding emesis bag Skin: normal color, turgor, no icterus, cyanosis. HEENT: AT/NC, EOMI, PERRLA, dry MM, no carotid bruits or JVD noted. Lungs: CTA bilaterally, moderate effort, moderate decrease BL bases, no rales, ronchi or wheezing. Heart: Regular rate and rhythm; no gallop, rub audible. Abdomen: soft, morbidly obese, epigastric and mild right upper quadrant tenderness, no rebound or guarding, difficult to assess distention given habitus, distant bowel sounds, difficult to assess HSM secondary to habitus and acute pain. Extremities: no cyanosis, clubbing, or edema. Neurological: patient awake, alert, oriented x 3; cognitive function intact; pupils equally reactive to light and accomodation; cranial nerves II-XII grossly normal, moving all 4 extremities, no focal deficits, strength moderately to severely global decrease secondary to acute presentation. Psychiatric: affect appears fatigued, no acute evidence of depressive or anxiety feelings. - Physical Exam Vital Signs Temp Pulse Resp BP Pulse Ox 98.7 F 78 18 130/59 H 98 05/20/19 10:57 05/20/19 10:57 05/20/19 10:57 05/20/19 13:26 05/20/19 10:57 Oxygen Delivery Method Room Air Weight: 216 lb 11.43 oz Body Mass Index (BMI) 40.9 Intake and Output for Last 24 Hours 05/18/19 05/19/19 05/20/19 23:59 23:59 23:59 Intake Total 1000 / 1000 Balance 1000 / 1000 Laboratory Tests Past 24 Hrs 05/20/19 05/20/19 05/20/19 11:43 11:43 11:43 WBC 6.8 RBC 3.92 L Hgb 11.0 L Hct 34.3 L MCV 87.5 MCH 28.1 MCHC 32.1 RDW Std Deviation 43.1 RDW Coeff of Janey 13.4 Plt Count 220 MPV 10.2 Immature Gran % (Auto) 0.300 Neut % (Auto) 74.9 H Lymph % (Auto) 15.6 L [place] % (Auto) 7.6 Eos % (Auto) 1.2 Baso % (Auto) 0.4 Absolute Neuts (auto) 5.1 Absolute Lymphs (auto) 1.06 Nucleated RBC % 0 Sodium 139 Potassium 3.7 Chloride 107 Carbon Dioxide 22.0 Anion Gap 10 BUN 17 Creatinine 0.87 Estim Creat Clear Calc 49.94 Est GFR (MDRD) Af Amer 85 Est GFR (MDRD) Non-Af 70 BUN/Creatinine Ratio 19.6 Glucose 55 L Lactic Acid 0.6 Calcium 8.7 Total Bilirubin 0.70 Direct Bilirubin 0.17 AST 28 ALT 18 Alkaline Phosphatase 90 Troponin I < 0.015 Total Protein 6.6 Albumin 3.1 L Globulin 3.5 Lipase Urine Color Urine Clarity Urine pH Ur Specific [place] Urine Protein Urine Glucose (UA) Urine Ketones Urine Occult Blood Urine Nitrite Urine Bilirubin Urine Urobilinogen Ur Leukocyte Esterase Urine RBC Urine WBC Ur Squamous Epith Cells Urine Bacteria Urine Mucus 05/20/19 05/20/19 11:43 13:28 WBC RBC Hgb Hct MCV MCH MCHC RDW Std Deviation RDW Coeff of Janey Plt Count MPV Immature Gran % (Auto) Neut % (Auto) Lymph % (Auto) [place] % (Auto) Eos % (Auto) Baso % (Auto) Absolute Neuts (auto) Absolute Lymphs (auto) Nucleated RBC % Sodium Potassium Chloride Carbon Dioxide Anion Gap BUN Creatinine Estim Creat Clear Calc Est GFR (MDRD) Af Amer Est GFR (MDRD) Non-Af BUN/Creatinine Ratio Glucose Lactic Acid Calcium Total Bilirubin Direct Bilirubin AST ALT Alkaline Phosphatase Troponin I Total Protein Albumin Globulin Lipase 536 H Urine Color Yellow Urine Clarity Sl. Cloudy Urine pH 5.0 Ur Specific [place] 1.020 Urine Protein 15 H Urine Glucose (UA) Normal Urine Ketones 150 H Urine Occult Blood Negative Urine Nitrite Negative Urine Bilirubin Negative Urine Urobilinogen Normal Ur Leukocyte Esterase 25 H Urine RBC 0 SEEN Urine WBC 0-5 SEEN Ur Squamous Epith Cells 0-5 SEEN Urine Bacteria 0 SEEN Urine Mucus 0 SEEN Assessment/Plan All Active Problems (Last Reviewed 05/14/19 @ 13:58 by Sarah Covington) Pancreatitis (Acute) Acute recurrent pancreatitis (Acute) The patient is a 63 y/o F w/ PMHx: Morbid Obesity, HTN, HLD, Former Tobacco use, Anxiety and Depression, GERD, Hx Thoracic AA without rupture, Hx Thyroid nodules, Hx Pancreatitis with recent discharge on 04/21/2019 with acute recurrent pancreatitis with history status post cholecystectomy 10/2018 with presumed history of gallstone pancreatitis at that time per who re-presents to the [facility] ED on 05/20/19 with history of onset epigastric and left upper quadrant abdominal pain, severe, 10 out of 10 with associated nausea and emesis, not improving with lack of oral intake vomiting. (1) Acute recurrent pancreatitis: Will admit to medical surgical floor, maintain on IVFs, NPO, PPI, IV/po pain control, trend lipase, CMP. Patient with history of cholecystectomy, recent lipid panel not market appearing, no alcohol abuse history. Will consult general surgeon, Dr. Canas who is familiar with patient as increased recurrent presentations with pancreatitis. Patient noting recent upper EGD 1.5 months prior at the noted to be unremarkable. Discussed case with Dr. Canas and he will evaluate the patient today. (2) Hypertension: Continue home regimen including lisinopril, metoprolol, Norvasc, PRN hydralazine. (3) Hyperlipidemia: Not on regimen, defer to outpatient. (4) GERD: IV famotidine while n.p.o. status. (5) History thoracic AA: Encourage continued outpatient monitoring and management, following w/ Dr. Miller with recent initiation of beta-adair therapy to assist with blood pressure management and plan continued outpatient imaging assessment. (6) Former tobacco use: Encouraged continued tobacco cessation. (7) History thyroid nodules: Status post multiple biopsies noted to be benign. (8) Morbid Obesity: Weight loss and lifestyle changes encouraged, nutrition consulted. (9) Anxiety and depression: We will continue home Seroquel, sertraline regimen. (10) DVT prophylaxis: SCDs, Lovenox. Code Visit Inpatient E&M: 75584 Init Hosp L3
[2019-05-20 15:00] VITALS: BP 113/52; PULSE 69; PULSE 72; RESP 14; O2SAT 95; O2SAT 96
[2019-05-20 15:01] VITALS: BMI 40.9
[2019-05-20] MEDS: 0.9% Normal Saline 1,000 ML 999 ML IV (15:06)
[2019-05-20 15:32] VITALS: BP 127/66; PULSE 71; RESP 12; O2SAT 92
--- NOTE | 2019-05-20 15:38 | ED.RN ---
CALLED PHARMACY FOR [facility].
--- NOTE | 2019-05-20 15:45 | ED.RN ---
NORVASC COME THROUGH TUBE SYSTEM ADMISSION NURSE WAS TRANSPORTING PT. NORVASC GIVEN TO ADMISSION NURSE TO TAKE TO THE FLOOR.
--- NOTE | 2019-05-20 15:48 | ED.RN ---
DR. GALLAGHER AWARE OF PT BP AND THAT NORVASC WAS NOT GIVEN IN ED.
[2019-05-20 16:08] VITALS: BMI 39.5
[2019-05-20 16:10] VITALS: BP 118/58; PULSE 67; RESP 18; TEMP 36.7; O2SAT 98
[2019-05-20] MEDS: 0.9% Normal Saline 1,000 ML 150 ML IV ×2 (17:21→23:14)
[2019-05-20 19:54] VITALS: BP 115/50; PULSE 63; RESP 17; TEMP 36.8; O2SAT 98
[2019-05-20] MEDS: 0.9% NaCl Peripheral Flush Adult/Peds IV (19:58)
[2019-05-20] MEDS: Morphine 2 MG/ML Syringe IV (19:58)
--- NOTE | 2019-05-20 20:57 | CON.PCM_ITS ---
Reason for Consult Date of Consultation: 05/20/19 Reason for Consultation: recurrent pancreatitis History of Present Illness: The patient is a 63 year old F who presents for a third episode of recurring pancreatitis. the patient and her first attack of pancreatitis in October 03, 2016. At the time of admission she was found to have acute pancreatitis and had a CT scan that demonstrated significant peripancreatic inflammation extending to the right upper quadrant. She had a somewhat protracted course but actually had resolution of her symptoms and then underwent laparoscopic cholecystectomy on October 25, 2016. Intraoperative cholangiogram was obtained which demonstrated no common duct stones and is otherwise unremarkable. Pathology returned as chronic cholecystitis. No gallstones were detected. the patient was doing well until October 20, 2018 when she was readmitted to the hospital with abdominal pain. She was found to have an elevated lipase levelof [address] scan interpreted as acute pancreatitis. The patient's symptoms resolved. the patient denies alcohol use. She has no other obvious inciting events. She had triglycerides obtained which were not elevated. MRCP was obtained to the [facility] system. This returned as no abnormalities-specifically: IMPRESSION: Minimal peripancreatic infiltration compatible with the patient's recent history of pancreatitis. No peripancreatic fluid collection. No pancreatic mass or duct dilation. she was referred to gastroenterology at [facility] for idiopathic pancreatitis. his plan was to perform endoscopic ultrasound and if no other etiologies were obtained to switch the patient off lisinopril and simvastatin. the patient underwent upper endoscopy with endoscopic ultrasound on April 01, 2019. This demonstrated findings of: Findings: ? ? ?ENDOSCOPIC FINDING: : ? ? ?The examined esophagus was normal. ? ? ?The entire examined stomach was normal. ? ? ?The examined duodenum was normal. ? ? ?ENDOSONOGRAPHIC FINDING: : ? ? ?Endosonographic imaging in the pancreatic head, genu of the pancreas, ? ? ?pancreatic body and pancreatic tail showed no chronic pancreatitis, ? ? ?mass or stones. ? ? ?Endosonographic imaging in the common bile duct showed no stones or ? ? ?sludge. Impression: ? Normal hepatobiliary endosonographic examination Estimated Blood Loss: Estimated blood loss: none. Recommendation: ? ? ? Discuss with primary care physician regarding ? finding alternative to Simivastatin and Lisinopril. the patient has since had 2 additional episodes of upper mid abdominal pain consistent with pancreatitis. Past Medical History Past Medical History (Chronic Problems): Chronic Problems (Last Reviewed 05/14/19 @ 13:58 by Sarah Covington) Anxiety and depression (Chronic) Pure hypercholesterolemia (Chronic) Thoracic aortic aneurysm without rupture (Chronic) Essential hypertension (Chronic) Morbid obesity (Chronic) GERD (gastroesophageal reflux disease) (Chronic) Medical History: Medical History (Last Reviewed 05/14/19 @ 13:58 by Sarah Covington) Pure hypercholesterolemia (Chronic) E78.00 Thoracic aortic aneurysm without rupture (Chronic) I71.2 Essential hypertension (Chronic) I10 Morbid obesity (Chronic) E66.01 GERD (gastroesophageal reflux disease) (Chronic) K21.9 Pancreatitis (Acute) K85.90 Acute recurrent pancreatitis (Acute) K85.90 Colon polyps K63.5 Depression F32.9 Former smoker Z87.891 Lung nodules R91.8 Multiple thyroid nodules E04.2 biopsies negative for malignancy Obesity E66.9 Osteoarthritis M19.90 Poor dentition K08.9 Allergies No Known Allergies Allergy (Verified 05/20/19 10:54) Home Medications: Ambulatory Orders Medication Instructions Recorded Sertraline HCl [Zoloft] 150 mg PO DAILY 10/03/16 Omeprazole [Prilosec] 20 mg PO DAILY 10/25/16 Quetiapine Fumarate [Seroquel] 50 mg PO QHS 10/20/18 Lisinopril 40 mg PO DAILY 10/22/18 Metoprolol Succinate [Toprol Xl] 25 mg PO DAILY 05/20/19 Surgical History: Surgical History (Last Reviewed 05/14/19 @ 13:58 by Sarah Covington) History of carpal tunnel surgery Z98.890 History of cholecystectomy Z90.49 History of total hysterectomy Z90.710 Surgical History: cholecystectomy, hysterectomy - with oophorectomy for fibroids, - - Endoscopic removal of colon polyps, cholecystectomy, hysterectomy, bilateral carpal tunnel surgery. 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, uterine fibroids - She has had a hysterectomy Lives: Alone Smoking Status: Former smoker Tobacco Use: Non-smoker Alcohol: None Drugs: None - *Family History Maternal Family History: Family History (Last Reviewed 05/14/19 @ 13:58 by Sarah Covington) Mother Colon cancer Father Cancer Sister Breast cancer Brother Cancer History Items: Cancer - Mother of colon cancer Paternal Family History: Family History (Last Reviewed 05/14/19 @ 13:58 by Sarah Covington) Mother Colon cancer Father Cancer Sister Breast cancer Brother Cancer History Items: - - Father when she was quite young due to pneumonia Sibling Family History: Family History (Last Reviewed 05/14/19 @ 13:58 by Sarah Covington) Mother Colon cancer Father Cancer Sister Breast cancer Brother Cancer History Items: Cancer - She has a brother who is from lung cancer Review of Systems Constitutional: Reports: Anorexia. Denies: Chills, Fever, Weight Change HEENT: Denies: Head Aches, Sinus Congestion, Sinus Drainage Cardiovascular: Denies: Chest Pain, Palpitations Respiratory: Denies: Cough, Shortness of breath at rest, Sputum production Gastrointestinal: Reports: Abdominal Pain. Denies: Nausea, Vomiting Genitourinary: Denies: Dysuria Musculoskeletal: Denies: Joint Pain, Joint Tenderness Skin: Denies: Rash, Wounds Neurological: Denies: Numbness, Tingling, Focal weakness Psychiatric: Denies: Anxiety, Depression, Homicidal Ideations, Suicidal Ideations Hematologic/ Lymphatic: Denies: Easy Bruising, Easy Bleeding Patient Problems: Active and Suspected Problems (Last Reviewed 05/14/19 @ 13:58 by Sarah Covington) Dehydration (Acute) Pancreatitis (Acute) - Physical Exam General: Alert, Oriented x3, Cooperative Lungs: Clear to auscultation, Normal air movement Cardiovascular: Regular rate, No murmurs Abdomen: Bowel Sounds Present, Soft, Non Tender - except mildly tender in the superumbilical area Vital Signs Temp Pulse Resp BP Pulse Ox 98.2 F 63 17 115/50 L 98 05/20/19 19:54 05/20/19 19:54 05/20/19 19:54 05/20/19 19:54 05/20/19 19:54 Oxygen Delivery Method Room Air Weight: 95 kg Body Mass Index (BMI) 39.5 Intake and Output for Last 24 Hours 05/18/19 05/19/19 05/20/19 23:59 23:59 23:59 Intake Total 2009 Balance 2009 Laboratory Tests Past 24 Hrs 05/20/19 05/20/19 05/20/19 11:43 11:43 11:43 WBC 6.8 RBC 3.92 L Hgb 11.0 L Hct 34.3 L MCV 87.5 MCH 28.1 MCHC 32.1 RDW Std Deviation 43.1 RDW Coeff of Janey 13.4 Plt Count 220 MPV 10.2 Immature Gran % (Auto) 0.300 Neut % (Auto) 74.9 H Lymph % (Auto) 15.6 L [place] % (Auto) 7.6 Eos % (Auto) 1.2 Baso % (Auto) 0.4 Absolute Neuts (auto) 5.1 Absolute Lymphs (auto) 1.06 Nucleated RBC % 0 Sodium 139 Potassium 3.7 Chloride 107 Carbon Dioxide 22.0 Anion Gap 10 BUN 17 Creatinine 0.87 Estim Creat Clear Calc 49.94 Est GFR (MDRD) Af Amer 85 Est GFR (MDRD) Non-Af 70 BUN/Creatinine Ratio 19.6 Glucose 55 L Lactic Acid 0.6 Calcium 8.7 Total Bilirubin 0.70 Direct Bilirubin 0.17 AST 28 ALT 18 Alkaline Phosphatase 90 Troponin I < 0.015 Total Protein 6.6 Albumin 3.1 L Globulin 3.5 Lipase Urine Color Urine Clarity Urine pH Ur Specific [place] Urine Protein Urine Glucose (UA) Urine Ketones Urine Occult Blood Urine Nitrite Urine Bilirubin Urine Urobilinogen Ur Leukocyte Esterase Urine RBC Urine WBC Ur Squamous Epith Cells Urine Bacteria Urine Mucus 05/20/19 05/20/19 11:43 13:28 WBC RBC Hgb Hct MCV MCH MCHC RDW Std Deviation RDW Coeff of Janey Plt Count MPV Immature Gran % (Auto) Neut % (Auto) Lymph % (Auto) [place] % (Auto) Eos % (Auto) Baso % (Auto) Absolute Neuts (auto) Absolute Lymphs (auto) Nucleated RBC % Sodium Potassium Chloride Carbon Dioxide Anion Gap BUN Creatinine Estim Creat Clear Calc Est GFR (MDRD) Af Amer Est GFR (MDRD) Non-Af BUN/Creatinine Ratio Glucose Lactic Acid Calcium Total Bilirubin Direct Bilirubin AST ALT Alkaline Phosphatase Troponin I Total Protein Albumin Globulin Lipase 536 H Urine Color Yellow Urine Clarity Sl. Cloudy Urine pH 5.0 Ur Specific [place] 1.020 Urine Protein 15 H Urine Glucose (UA) Normal Urine Ketones 150 H Urine Occult Blood Negative Urine Nitrite Negative Urine Bilirubin Negative Urine Urobilinogen Normal Ur Leukocyte Esterase 25 H Urine RBC 0 SEEN Urine WBC 0-5 SEEN Ur Squamous Epith Cells 0-5 SEEN Urine Bacteria 0 SEEN Urine Mucus 0 SEEN Assessment/Plan All Active Problems (Last Reviewed 05/14/19 @ 13:58 by Sarah Covington) Dehydration (Acute) Pancreatitis (Acute) Acute recurrent pancreatitis (Acute) recurring pancreatitis-unknown etiology I would plan to obtain a repeat MRCP to assure that there were no other abnormalities noted. Otherwise I would most likely plan to stop simvastatin and lisinopril per GI recommendations from [facility]. I also asked pharmacy to evaluate her home medication list for other medications that could rarely cause recurring pancreatitis..
[2019-05-20] MEDS: QUEtiapine 25 MG Tablet 50 MG PO (22:57)
[2019-05-21] VITALS (7 sets, daily range): BP systolic 100–154; BP diastolic 48–79; PULSE 73–90; RESP 16–20; TEMP 36.4–36.9; O2SAT 93–97
[2019-05-21] MEDS: 0.9% NaCl Peripheral Flush Adult/Peds IV ×4 (04:01→17:21)
[2019-05-21] MEDS: Ondansetron 4 MG/2 ML Vial IV (04:02)
[2019-05-21] MEDS: Morphine 2 MG/ML Syringe IV ×5 (04:02→22:38)
[2019-05-21] MEDS: 0.9% Normal Saline 1,000 ML 150 ML IV ×3 (05:13→20:46)
--- NOTE | 2019-05-21 07:08 | PN_ITS ---
Patient Problems: Active and Suspected Problems (Last Reviewed 05/14/19 @ 13:58 by Sarah Covington) Dehydration (Acute) Pancreatitis (Acute) Subjective: CC acute recurrent pancreatitis Patient is a 63-year-old lady with history of recurrent pancreatitis admitted with abdominal pain. Objective: GENERAL: cooperative HEENT: Atraumatic; moist oral mucosa EYES; Anicteric, Normal Conjunctiva NECK; supple, normal thyroid, RESPIRATORY: Diminished to auscultation CARDIOVASCULAR: Regular S1 S2, GI: soft, non-tender, normoactive bowel sounds, : No Renal angle tenderness; EXTREMITIES: No edema, no clubbing, MUSCULOSKELETAL: No Joint Tenderness; NEURO: Awake; no lateralizing signs. SKIN: No Rash PSYCH;flat affect Vitals/I&O's: Vital Signs Temp Pulse Resp BP Pulse Ox 98.1 F 73 16 124/48 H 95 05/21/19 03:59 05/21/19 03:59 05/21/19 03:59 05/21/19 03:59 05/21/19 03:59 Oxygen Delivery Method Room Air Weight: 95 kg Body Mass Index (BMI) 39.5 Intake and Output for Last 24 Hours 05/19/19 05/20/19 05/21/19 23:59 23:59 23:59 Intake Total 2892.5 / 2892.5 897.5 / 897.5 Output Total 850 / 850 650 / 650 Balance 2042.5 / 2042.5 247.5 / 247.5 Laboratory Results 05/20/19 11:43: WBC 6.8, RBC 3.92 L, Hgb 11.0 L, Hct 34.3 L, MCV 87.5, MCH 28.1, MCHC 32.1, RDW Std Deviation 43.1, RDW Coeff of Janey 13.4, Plt Count 220, MPV 10.2, Immature Gran % (Auto) 0.300, Neut % (Auto) 74.9 H, Lymph % (Auto) 15.6 L, Sharkey % (Auto) 7.6, Eos % (Auto) 1.2, Baso % (Auto) 0.4, Absolute Neuts (auto) 5.1, Absolute Lymphs (auto) 1.06, Nucleated RBC % 0 05/20/19 11:43: Sodium 139, Potassium 3.7, Chloride 107, Carbon Dioxide 22.0, Anion Gap 10, BUN 17, Creatinine 0.87, Estim Creat Clear Calc 49.94, Est GFR (MDRD) Af Amer 85, Est GFR (MDRD) Non-Af 70, BUN/Creatinine Ratio 19.6, Glucose 55 L, Calcium 8.7, Total Bilirubin 0.70, Direct Bilirubin 0.17, AST 28, ALT 18, Alkaline Phosphatase 90, Troponin I < 0.015, Total Protein 6.6, Albumin 3.1 L, Globulin 3.5 05/20/19 11:43: Lactic Acid 0.6 05/20/19 11:43: Lipase 536 H 05/20/19 13:28: Urine Color Yellow, Urine Clarity Sl. Cloudy, Urine pH 5.0, Ur Specific [place] 1.020, Urine Protein 15 H, Urine Glucose (UA) Normal, Urine Ketones 150 H, Urine Occult Blood Negative, Urine Nitrite Negative, Urine Bilirubin Negative, Urine Urobilinogen Normal, Ur Leukocyte Esterase 25 H, Urine RBC 0 SEEN, Urine WBC 0-5 SEEN, Ur Squamous Epith Cells 0-5 SEEN, Urine Bacteria 0 SEEN, Urine Mucus 0 SEEN Current Medications Acetaminophen (Tylenol) 650 mg PO Q6H PRN PRN PRN Reason: Non-cardiac pain (mod-severe) Hydrocodone Bitart/Acetaminophen ([place] 5mg-325mg) 1 - 2 tablet PO Q4H PRN PRN PRN Reason: Pain Score 4-10/10 Al Hydroxide/Mg Hydroxide (Mylanta Ii) 15 - 30 ml PO Q4H PRN PRN PRN Reason: INDIGESTION Albuterol Sulfate (Ventolin Aerosols) 2.5 mg INHALATION Q2H PRN PRN PRN Reason: dyspnea, wheezing Dextrose (D50w Syringe) 0 gm IV X1 PRN; Protocol PRN Reason: Hypoglycemia Enoxaparin Sodium (Lovenox) 40 mg SC DAILY@1000 SHARAN Glucagon () 1 mg IM .X1 PRN PRN Reason: Hypoglycemia Hydralazine HCl (Apresoline Iv) 10 mg IV Q4H PRN PRN PRN Reason: SBP > 160 Sodium Chloride () 1,000 mls @ 150 mls/hr IV .Q6H40M SHARAN Last Admin: 05/21/19 05:13 Dose: 150 mls/hr Documented by: Famotidine 20 mg/ Sodium (Chloride) 10 mls @ 300 mls/hr IV Q12 [facility] Last Infusion: 05/20/19 17:22 Dose: Infused Documented by: Lisinopril (Zestril) 40 mg PO DAILY [facility] Magnesium Hydroxide (Milk Of Magnesia) 30 ml PO DAILY PRN PRN Reason: Constipation Melatonin (Melatonin) 3 mg PO QHS PRN PRN PRN Reason: INSOMNIA Metoprolol Succinate (Toprol Xl (Beta Mitul)) 25 mg PO DAILY [facility] Morphine Sulfate () 2 - 4 mg IV Q4H PRN PRN PRN Reason: Pain Score 1-10/10 Last Admin: 05/21/19 04:02 Dose: 2 mg Documented by: Morphine Sulfate () 2 - 4 mg IV Q4H PRN PRN PRN Reason: Pain Score 1-10/10 Nitroglycerin (Nitrostat) 0.4 mg SUBLINGUAL Q5M PRN PRN Reason: CARDIAC/CHEST PAIN Ondansetron HCl (Zofran) 4 mg IV Q8H PRN PRN PRN Reason: NAUSEA/VOMITING Last Admin: 05/21/19 04:02 Dose: 4 mg Documented by: Prochlorperazine Edisylate (Compazine Iv) 5 mg IV Q4H PRN PRN PRN Reason: NAUSEA/VOMITING Quetiapine Fumarate (Seroquel) 50 mg PO QHS [facility] Last Admin: 05/20/19 22:57 Dose: 50 mg Documented by: Sertraline HCl (Zoloft) 150 mg PO DAILY [facility] Sodium Chloride () 5 - 15 ml IV UD PRN PRN Reason: SALINE FLUSH Last Admin: 05/21/19 04:01 Dose: 10 ml Documented by: Medical Necessity - Tobacco Use Smoking Status: Former smoker Tobacco Use: Non-smoker Assessment/Plan All Active Problems (Last Reviewed 05/14/19 @ 13:58 by Sarah Covington) Dehydration (Acute) Pancreatitis (Acute) Acute recurrent pancreatitis (Acute) Patient is a 63-year-old lady with history of recurrent pancreatitis admitted with abdominal pain. 1. Acute recurrent pancreatitis. ~Patient has apparently undergone extensive work-up at the [facility] without any identifiable etiology. She apparently underwent cholecystectomy in October 2018 for suspected gallstone pancreatitis however sentence continues to be recurrent. She was advised to stop taking her lisinopril and simvastatin. Admitted to regular nursing floor managed conservatively. Consult was placed to general surgery seen by the abdomen who recommended for patient undergo MRCP 2. Hypertension ~ blood pressure controlled, home medications except for lisinopril continued with dose adjustment as needed 3. Dyslipidemia ~Previously on statins discontinued as a result of patient's recurrent pancreatitis 4. Morbid obesity with BMI of 39.6 ~ Weight loss advised 5. Depression with anxiety ~ Patient is on SSRI as well as Seroquel 6. Thyroid nodules ~ patient is undergoing evaluation as outpatient nodules assessed to be benign 7. DVT prophylaxis SC Lovenox Active Medications Acetaminophen (Tylenol) 650 mg PO Q6H PRN PRN PRN Reason: Non-cardiac pain (mod-severe) Hydrocodone Bitart/Acetaminophen ([place] 5mg-325mg) 1 - 2 tablet PO Q4H PRN PRN PRN Reason: Pain Score 4-10/10 Al Hydroxide/Mg Hydroxide (Mylanta Ii) 15 - 30 ml PO Q4H PRN PRN PRN Reason: INDIGESTION Albuterol Sulfate (Ventolin Aerosols) 2.5 mg INHALATION Q2H PRN PRN PRN Reason: dyspnea, wheezing Dextrose (D50w Syringe) 0 gm IV X1 PRN; Protocol PRN Reason: Hypoglycemia Enoxaparin Sodium (Lovenox) 40 mg SC DAILY@1000 SHARAN Glucagon () 1 mg IM .X1 PRN PRN Reason: Hypoglycemia Hydralazine HCl (Apresoline Iv) 10 mg IV Q4H PRN PRN PRN Reason: SBP > 160 Sodium Chloride () 1,000 mls @ 150 mls/hr IV .Q6H40M [facility] Last Admin: 05/21/19 05:13 Dose: 150 mls/hr Documented by: Famotidine 20 mg/ Sodium (Chloride) 10 mls @ 300 mls/hr IV Q12 [facility] Last Infusion: 05/20/19 17:22 Dose: Infused Documented by: Magnesium Hydroxide (Milk Of Magnesia) 30 ml PO DAILY PRN PRN Reason: Constipation Melatonin (Melatonin) 3 mg PO QHS PRN PRN PRN Reason: INSOMNIA Metoprolol Succinate (Toprol Xl (Beta Mitul)) 25 mg PO DAILY [facility] Morphine Sulfate () 2 - 4 mg IV Q4H PRN PRN PRN Reason: Pain Score 1-10/10 Last Admin: 05/21/19 07:23 Dose: 2 mg Documented by: Morphine Sulfate () 2 - 4 mg IV Q4H PRN PRN PRN Reason: Pain Score 1-10/10 Nitroglycerin (Nitrostat) 0.4 mg SUBLINGUAL Q5M PRN PRN Reason: CARDIAC/CHEST PAIN Ondansetron HCl (Zofran) 4 mg IV Q8H PRN PRN PRN Reason: NAUSEA/VOMITING Last Admin: 05/21/19 04:02 Dose: 4 mg Documented by: Prochlorperazine Edisylate (Compazine Iv) 5 mg IV Q4H PRN PRN PRN Reason: NAUSEA/VOMITING Last Admin: 05/21/19 07:22 Dose: 5 mg Documented by: Quetiapine Fumarate (Seroquel) 50 mg PO QHS [facility] Last Admin: 05/20/19 22:57 Dose: 50 mg Documented by: Sertraline HCl (Zoloft) 150 mg PO DAILY [facility] Sodium Chloride () 5 - 15 ml IV UD PRN PRN Reason: SALINE FLUSH Last Admin: 05/21/19 07:23 Dose: 10 ml Documented by: Clinical Impression(s) from Imaging Studies Chest X-Ray 05/20/19 12:13 IMPRESSION: Normal chest. Electronically Signed: Salvador Hamm, at 12:38 EDT Tel , Service support , Code Visit Inpatient E&M: 57169 [facility] L2
[2019-05-21] MEDS: proCHLORPERazine 10 MG/2 ML Vial 5 MG IV ×4 (07:22→22:44)
[2019-05-21 07:35] LABS: Absolute Lymphocyte Count 1.03 X10^3/uL (0.83-4.51); Absolute Neutrophil Count 4.6 X10^3/uL (2.0-7.7); Basophil# 0.03 X10^3/uL; Basophil% 0.5 % (0-1); Eosinophil# 0.02 X10^3/uL; Eosinophils% 0.3 % (0-5); Hematocrit 34.3 % (37-47); Hemoglobin 10.6 g/dL (12.0-15.0); Lymphocyte # 1.03 X10^3/ul (4.0); Lymphocyte % 16.6 % (19-41); Mean Corp Hgb Conc 30.9 g/dL (32-36); Mean Corpuscular Hgb 28.1 pg (27.0-32.0); Mean Platelet Vol. 10.1 fl (6.2-12.0); Monocyte% 6.5 % (0-10); NRBC Flagged by Analyzer 0 % (0-5); Neutrophil # 4.63 X10^3/uL (2.7-7.7); Neutrophil % 74.6 % (47-70); Platelet Count 194 K/mm3 (150-450); RBC Distribution Width CV 13.8 % (11.6-14.6); RBC Distribution Width SD 46.5 fl (35.1-43.9); Red Blood Count 3.77 M/mm3 (4.2-5.4); White Blood Count 6.2 K/mm3 (4.4-11.0)
[2019-05-21 07:50] LABS: ALB/GLOB Ratio 0.9 RATIO (0.9-2.4); AST(SGOT) 33 U/L (15-37); Alanine Aminotransfer ALT/SGPT 19 U/L (13-56); Albumin, Serum 2.8 g/dL (3.2-5.0); Alkaline Phosphatase 95 U/L (45-117); Anion Gap 15 (5-15); BUN 11 mg/dL (7-18); BUN/Creat Ratio 16.1 RATIO (10-20); Calcium,Total 7.9 mg/dL (8.5-10.1); Chloride 114 mmol/L (98-107); Creatinine, Serum 0.68 mg/dL (0.55-1.02); EST Glomerular Filtration Rate 92 mL/min (>60); Est Glom Filt Rate - Afr Amer 111 mL/min (>60); Globulin 3.2 g/dL (2.2-4.2); Glucose 52 mg/dL (74-106); Lipase 432 U/L (73-393); Potassium 4.2 mmol/L (3.5-5.1); Sodium Level 144 mmol/L (136-145)
--- NOTE | 2019-05-21 11:30 | MRI_ITS ---
STUDY: MR CHOLANGIOPANCREATOGRAPHY (MRCP) REASON FOR EXAM: Female, 63 years old. TECHNIQUE: Standard MRCP technique was utilized. COMPARISON: CT 10/20/2018 FINDINGS: Gall Bladder: Gall bladder is not visualized, which may reflect contraction or obstruction of the cystic duct. Cystic duct: Normal with no demonstrated fixed filling defect. Intrahepatic ducts: Normal visualized intrahepatic ducts with no demonstrated fixed filling defect, dilation or stricture. Common hepatic duct: Normal with no demonstrated fixed filling defect, dilation or stricture. Common bile duct: Normal with no demonstrated fixed filling defect, dilation or stricture. Pancreatic duct: Normal with no demonstrated fixed filling defect, dilation or stricture. MRI/MRCP Abdomen without Contrast IMPRESSION: Normal MR Cholangiopancreatography (MRCP) after cholecystectomy. Electronically Signed: Terrence Durham MD at 14:30 EDT Tel , Service support ,
[2019-05-21] MEDS: Enoxaparin 40 MG/0.4 ML Syringe SC (11:46)
--- NOTE | 2019-05-21 11:59 | CASEMGMT ---
RN CM Readmission Note Previous Admission: 04/18/19-04/21/19 Diagnosis: Acute Pancreatitis DC Disposition: Home with [facility] referral. Pt refused services once home. Current Admission Presentation: Acute Pancreatitis Intro role of CM and purpose of RN CM assessment. Demographics, PCP and Pharmacy verified. See previous assessment for details. Pt sleepy but able to participate in assessment. Pt states when [facility] called she was sleepy and confused and didn't realize she had refused. Pt is agreeable to [facility] again if recommended, and [facility] is first choice. PCP: Dr. Hastings Specialists: [facility] Preferred Pharmacy: [facility] [place]: Yareli Chaves, daughter [place] PLAN: Anticipate Home with [facility]. Message left with Sarah [facility] to request review of referral. Graciela BROWNN RN ACM
--- NOTE | 2019-05-21 17:34 | PN.SURG_ITS ---
Patient Problems: Active and Suspected Problems (Last Reviewed 05/14/19 @ 13:58 by Sarah Covington) Dehydration (Acute) Pancreatitis (Acute) Subjective: worsening pain and nausea and vomiting - Physical Exam General: Alert, Oriented x3, Cooperative Lungs: Clear to auscultation, Normal air movement Cardiovascular: Regular rate, No murmurs Abdomen: Bowel Sounds Present, Soft, Tender - supraumbilical Vital Signs Temp Pulse Resp BP Pulse Ox 97.5 F L 86 18 153/73 H 97 05/21/19 17:10 05/21/19 17:10 05/21/19 17:10 05/21/19 17:10 05/21/19 17:10 Oxygen Delivery Method Room Air Weight: 95 kg Body Mass Index (BMI) 39.5 Intake and Output for Last 24 Hours 05/19/19 05/20/19 05/21/19 23:59 23:59 23:59 Intake Total 2892.5 / 2892.5 2915.0 / 2915.0 Output Total 850 / 850 3200 / 3200 Balance 2042.5 / 2042.5 -285.0 / -285.0 Laboratory Tests Past 24 Hrs 05/21/19 05/21/19 07:03 07:03 WBC 6.2 RBC 3.77 L Hgb 10.6 L Hct 34.3 L MCV 91.0 MCH 28.1 MCHC 30.9 L RDW Std Deviation 46.5 H RDW Coeff of Janey 13.8 Plt Count 194 MPV 10.1 Immature Gran % (Auto) 1.500 H Neut % (Auto) 74.6 H Lymph % (Auto) 16.6 L Weber % (Auto) 6.5 Eos % (Auto) 0.3 Baso % (Auto) 0.5 Absolute Neuts (auto) 4.6 Absolute Lymphs (auto) 1.03 Nucleated RBC % 0 Sodium 144 Potassium 4.2 Chloride 114 H Carbon Dioxide 15.0 L Anion Gap 15 BUN 11 Creatinine 0.68 Estim Creat Clear Calc 63.90 Est GFR (MDRD) Af Amer 111 Est GFR (MDRD) Non-Af 92 BUN/Creatinine Ratio 16.1 Glucose 52 L Calcium 7.9 L Total Bilirubin 0.50 AST 33 ALT 19 Alkaline Phosphatase 95 Total Protein 6.0 L Albumin 2.8 L Globulin 3.2 Albumin/Globulin Ratio 0.9 Lipase 432 H Medical Necessity - Tobacco Use Smoking Status: Former smoker Tobacco Use: Non-smoker Assessment/Plan All Active Problems (Last Reviewed 05/14/19 @ 13:58 by Sarah Covington) Dehydration (Acute) Pancreatitis (Acute) Acute recurrent pancreatitis (Acute) recurring pancreatitis-unknown etiology Repeat MRCP - no abnormalities noted. Patient also had negative IgG4 subclass, negative enteric panels and negative cryptosporidium and giardia panels She has stopped her simvastatin. GI recommendations from [facility] included recommending stopping lisinopril. I would ask pharmacy to evaluate her home medication list for other medications that could cause recurring pancreatitis. She was noting continued nausea and vomiting this morning. I ordered Compazine to see if this was more effective than Zofran.
[2019-05-21] MEDS: QUEtiapine 25 MG Tablet 50 MG PO (22:36)
[2019-05-22] VITALS (7 sets, daily range): BP systolic 142–171; BP diastolic 63–83; PULSE 72–81; RESP 16–18; TEMP 36.3–36.9; O2SAT 84–97
[2019-05-22] MEDS: 0.9% Normal Saline 1,000 ML 150 ML IV ×4 (02:38→23:09)
[2019-05-22] MEDS: Morphine 2 MG/ML Syringe IV ×3 (04:31→14:39)
[2019-05-22] MEDS: 0.9% NaCl Peripheral Flush Adult/Peds IV (04:35)
--- NOTE | 2019-05-22 08:35 | PCM.PN.HOSP ---
Patient Problems: Active and Suspected Problems (Last Reviewed 05/14/19 @ 13:58 by Sarah Covington) Dehydration (Acute) Pancreatitis (Acute) Subjective: CC follow-up acute pancreatitis Patient seen MRCP obtained the day prior was unremarkable. Patient was started on clear liquid however she has not been able to tolerate it. Was on Pepcid switched to Protonix Objective: GENERAL: cooperative HEENT: Atraumatic; moist oral mucosa EYES; Anicteric, Normal Conjunctiva NECK; supple, normal thyroid, RESPIRATORY: Diminished to auscultation CARDIOVASCULAR: Regular S1 S2, GI: soft, non-tender, normoactive bowel sounds, : No Renal angle tenderness; EXTREMITIES: No edema, no clubbing, MUSCULOSKELETAL: No Joint Tenderness; NEURO: Awake; no lateralizing signs. SKIN: No Rash PSYCH;flat affect Vitals/I&O's: Vital Signs Temp Pulse Resp BP Pulse Ox 98.4 F 80 16 142/70 H 94 05/22/19 02:35 05/22/19 02:35 05/22/19 02:35 05/22/19 02:35 05/22/19 02:35 Oxygen Delivery Method Room Air Weight: 95 kg Body Mass Index (BMI) 39.5 Intake and Output for Last 24 Hours 05/20/19 05/21/19 05/22/19 23:59 23:59 23:59 Intake Total 2892.5 / 2892.5 3392.5 / 3632.5 1560 / 1560 Output Total 850 / 850 3200 / 4200 1000 / 1000 Balance 2042.5 / 2042.5 192.5 / -567.5 560 / 560 Current Medications Acetaminophen (Tylenol) 650 mg PO Q6H PRN PRN PRN Reason: Non-cardiac pain (mod-severe) Hydrocodone Bitart/Acetaminophen ([place] 5mg-325mg) 1 - 2 tablet PO Q4H PRN PRN PRN Reason: Pain Score 4-10/10 Al Hydroxide/Mg Hydroxide (Mylanta Ii) 15 - 30 ml PO Q4H PRN PRN PRN Reason: INDIGESTION Albuterol Sulfate (Ventolin Aerosols) 2.5 mg INHALATION Q2H PRN PRN PRN Reason: dyspnea, wheezing Dextrose (D50w Syringe) 0 gm IV X1 PRN; Protocol PRN Reason: Hypoglycemia Enoxaparin Sodium (Lovenox) 40 mg SC DAILY@1000 [facility] Last Admin: 05/21/19 11:46 Dose: 40 mg Documented by: Glucagon () 1 mg IM .X1 PRN PRN Reason: Hypoglycemia Hydralazine HCl (Apresoline Iv) 10 mg IV Q4H PRN PRN PRN Reason: SBP > 160 Sodium Chloride () 1,000 mls @ 150 mls/hr IV .Q6H40M [facility] Last Admin: 05/22/19 02:38 Dose: 150 mls/hr Documented by: Pantoprazole Sodium 40 mg/ (Sodium Chloride) 110 mls @ 330 mls/hr IV Q24 [facility] Magnesium Hydroxide (Milk Of Magnesia) 30 ml PO DAILY PRN PRN Reason: Constipation Melatonin (Melatonin) 3 mg PO QHS PRN PRN PRN Reason: INSOMNIA Metoprolol Succinate (Toprol Xl (Beta Mitul)) 25 mg PO DAILY [facility] Last Admin: 05/21/19 17:18 Dose: Not Given Documented by: Morphine Sulfate () 2 - 4 mg IV Q4H PRN PRN PRN Reason: Pain Score 1-10/10 Last Admin: 05/22/19 04:31 Dose: 2 mg Documented by: Morphine Sulfate () 2 - 4 mg IV Q4H PRN PRN PRN Reason: Pain Score 1-10/10 Nitroglycerin (Nitrostat) 0.4 mg SUBLINGUAL Q5M PRN PRN Reason: CARDIAC/CHEST PAIN Ondansetron HCl (Zofran) 4 mg IV Q8H PRN PRN PRN Reason: NAUSEA/VOMITING Last Admin: 05/21/19 04:02 Dose: 4 mg Documented by: Prochlorperazine Edisylate (Compazine Iv) 5 mg IV Q4H PRN PRN PRN Reason: NAUSEA/VOMITING Last Admin: 05/21/19 22:44 Dose: 5 mg Documented by: Quetiapine Fumarate (Seroquel) 50 mg PO QHS [facility] Last Admin: 05/21/19 22:36 Dose: 50 mg Documented by: Sertraline HCl (Zoloft) 150 mg PO DAILY [facility] Last Admin: 05/21/19 17:18 Dose: Not Given Documented by: Sodium Chloride () 5 - 15 ml IV UD PRN PRN Reason: SALINE FLUSH Last Admin: 05/22/19 04:35 Dose: 10 ml Documented by: Medical Necessity - Tobacco Use Smoking Status: Former smoker Tobacco Use: Non-smoker Assessment/Plan All Active Problems (Last Reviewed 05/14/19 @ 13:58 by Sarah Covington) Dehydration (Acute) Pancreatitis (Acute) Acute recurrent pancreatitis (Acute) Patient is a 63-year-old lady with history of recurrent pancreatitis admitted with abdominal pain. 1. Acute recurrent pancreatitis. ~Patient has apparently undergone extensive work-up at the [facility] without any identifiable etiology. She apparently underwent cholecystectomy in October 2018 for suspected gallstone pancreatitis however sentence continues to be recurrent. She was advised to stop taking her lisinopril and simvastatin. Admitted to regular nursing floor managed conservatively. Consult was placed to general surgery seen by the abdomen who recommended for patient undergo MRCP ~05/22/2019; Patient seen MRCP obtained the day prior was unremarkable. Patient was started on clear liquid however she has not been able to tolerate it. Was on Pepcid switched to Protonix 2. Hypertension ~ blood pressure controlled, home medications except for lisinopril continued with dose adjustment as needed 3. Dyslipidemia ~Previously on statins discontinued as a result of patient's recurrent pancreatitis 4. Morbid obesity with BMI of 39.6 ~ Weight loss advised 5. Depression with anxiety ~ Patient is on SSRI as well as Seroquel 6. Thyroid nodules ~ patient is undergoing evaluation as outpatient nodules assessed to be benign 7. DVT prophylaxis SC Lovenox Clinical Impression(s) from Imaging Studies MRCP 05/21/19 11:30 IMPRESSION: Normal MR Cholangiopancreatography (MRCP) after cholecystectomy. Electronically Signed: Terrence Durham MD at 14:30 EDT Tel , Service support , Code Visit Inpatient E&M: [id number] Subs Hosp L2
[2019-05-22] MEDS: proCHLORPERazine 10 MG/2 ML Vial 5 MG IV (09:04)
[2019-05-22] MEDS: Enoxaparin 40 MG/0.4 ML Syringe SC (10:36)
[2019-05-22] MEDS: Metoprolol(XL)Succ 25 MG Tablet PO (14:39)
--- NOTE | 2019-05-22 14:51 | CASEMGMT ---
RN CM reviewed therapy notes, therapy recommending additional therapy. RN CM in to discuss with patient. Patient is agreeable to [facility] and prefers [facility]. RN CM sent referral to [facility] and they are able to accept the patient. RN CM updated the patient. CM will continue to follow this patient and plan for a safe discharge.
--- NOTE | 2019-05-22 18:02 | PCM.PN.SRG ---
Patient Problems: Active and Suspected Problems (Last Reviewed 05/14/19 @ 13:58 by Sarah Covington) Dehydration (Acute) Pancreatitis (Acute) Subjective: nausea better with compazine - Physical Exam Lungs: Clear to auscultation Cardiovascular: Regular rate, No murmurs Abdomen: Bowel Sounds Present, Soft, Tender - epigastrium Vital Signs Temp Pulse Resp BP Pulse Ox 98.1 F 81 16 171/83 H 95 05/22/19 14:35 05/22/19 14:39 05/22/19 14:35 05/22/19 14:35 05/22/19 14:35 Oxygen Delivery Method Room Air Weight: 95 kg Body Mass Index (BMI) 39.5 Intake and Output for Last 24 Hours 05/20/19 05/21/19 05/22/19 23:59 23:59 23:59 Intake Total 2892.5 / 2892.5 3392.5 / 3632.5 3622.5 / 3622.5 Output Total 850 / 850 3200 / 4200 2250 / 2250 Balance 2042.5 / 2042.5 192.5 / -567.5 1372.5 / 1372.5 Medical Necessity - Tobacco Use Smoking Status: Former smoker Tobacco Use: Non-smoker Assessment/Plan All Active Problems (Last Reviewed 05/14/19 @ 13:58 by Sarah Covington) Dehydration (Acute) Pancreatitis (Acute) Acute recurrent pancreatitis (Acute) recurring pancreatitis-unknown etiology Repeat MRCP - no abnormalities noted. Patient also had negative IgG4 subclass, negative enteric panels and negative cryptosporidium and giardia panels She has stopped her simvastatin. GI recommendations from [facility] included recommending stopping lisinopril. I would ask pharmacy to evaluate her home medication list for other medications that could cause recurring pancreatitis. She was noting continued nausea and vomiting yesterday. Compazine was more effective than Zofran.
[2019-05-22] MEDS: QUEtiapine 25 MG Tablet 50 MG PO (20:49)
[2019-05-23] VITALS (10 sets, daily range): BP systolic 150–184; BP diastolic 74–94; PULSE 56–72; RESP 10–16; TEMP 36.8–37.1; O2SAT 92–98
[2019-05-23] MEDS: Morphine 2 MG/ML Syringe IV ×5 (00:23→23:39)
[2019-05-23] MEDS: 0.9% Normal Saline 1,000 ML 150 ML IV (05:50)
[2019-05-23 07:30] LABS: Absolute Neutrophil Count 5.8 X10^3/uL (2.0-7.7); Basophil# 0.02 X10^3/uL; Basophil% 0.3 % (0-1); Eosinophil# 0.02 X10^3/uL; Eosinophils% 0.3 % (0-5); Hematocrit 32.2 % (37-47); Hemoglobin 10.6 g/dL (12.0-15.0); Lymphocyte % 8.4 % (19-41); Mean Corp Hgb Conc 32.9 g/dL (32-36); Mean Corpuscular Hgb 28.5 pg (27.0-32.0); Mean Corpuscular Volume 86.6 fL (81-99); Mean Platelet Vol. 10.1 fl (6.2-12.0); Monocyte% 8.4 % (0-10); NRBC Flagged by Analyzer 0 % (0-5); Neutrophil # 5.78 X10^3/uL (2.7-7.7); Neutrophil % 81.2 % (47-70); POSITIVE DIFFERENTIAL YES; Platelet Count 163 K/mm3 (150-450); RBC Distribution Width CV 13.5 % (11.6-14.6); RBC Distribution Width SD 42.1 fl (35.1-43.9); Red Blood Count 3.72 M/mm3 (4.2-5.4); White Blood Count 7.1 K/mm3 (4.4-11.0)
[2019-05-23] MEDS: 0.9% NaCl Peripheral Flush Adult/Peds IV ×8 (07:43→23:39)
[2019-05-23] MEDS: Metoprolol(XL)Succ 25 MG Tablet PO (07:46)
[2019-05-23 07:48] LABS: Differential Indicated SCAN CRITERIA MET
[2019-05-23 07:52] LABS: ALB/GLOB Ratio 0.8 RATIO (0.9-2.4); AST(SGOT) 27 U/L (15-37); Alanine Aminotransfer ALT/SGPT 18 U/L (13-56); Albumin, Serum 2.6 g/dL (3.2-5.0); Alkaline Phosphatase 85 U/L (45-117); Amylase 39 U/L (25-115); Anion Gap 12 (5-15); BUN 4 mg/dL (7-18); BUN/Creat Ratio 5.2 RATIO (10-20); Calcium,Total 7.8 mg/dL (8.5-10.1); Chloride 111 mmol/L (98-107); Creatinine, Serum 0.76 mg/dL (0.55-1.02); EST Glomerular Filtration Rate 81 mL/min (>60); Est Glom Filt Rate - Afr Amer 98 mL/min (>60); Estimated Creatinine Clearance 57.17 ml/min; Globulin 3.1 g/dL (2.2-4.2); Glucose 75 mg/dL (74-106); Lipase 223 U/L (73-393); Potassium 3.1 mmol/L (3.5-5.1); Protein, Total 5.7 g/dL (6.4-8.2); Sodium Level 141 mmol/L (136-145)
[2019-05-23 08:07] LABS: Differential Comment SCANNED
--- NOTE | 2019-05-23 08:10 | PCM.PN.HOSP ---
Patient Problems: Active and Suspected Problems (Last Reviewed 05/14/19 @ 13:58 by Sarah Covington) Dehydration (Acute) Pancreatitis (Acute) Subjective: Follow-up on pathology Patient seen still complains of significant epigastric discomfort as well as nausea. Did discuss case with Dr. Juárez with general surgery recommended for patient to undergo endoscopic evaluation to rule out either gastritis or peptic ulcer which may explain patient's persistent nausea Objective: GENERAL: cooperative HEENT: Atraumatic; moist oral mucosa EYES; Anicteric, Normal Conjunctiva NECK; supple, normal thyroid, RESPIRATORY: Diminished to auscultation CARDIOVASCULAR: Regular S1 S2, GI: soft, non-tender, normoactive bowel sounds, : No Renal angle tenderness; EXTREMITIES: No edema, no clubbing, MUSCULOSKELETAL: No Joint Tenderness; NEURO: Awake; no lateralizing signs. SKIN: No Rash PSYCH;flat affect Vitals/I&O's: Vital Signs Temp Pulse Resp BP Pulse Ox 98.5 F 69 12 173/93 H 96 05/23/19 07:41 05/23/19 07:46 05/23/19 07:41 05/23/19 07:41 05/23/19 07:41 Oxygen Delivery Method Room Air Weight: 95 kg Body Mass Index (BMI) 39.5 Intake and Output for Last 24 Hours 05/21/19 05/22/19 05/23/19 23:59 23:59 23:59 Intake Total 3392.5 / 3632.5 4972.5 / 5092.5 1220 / 1220 Output Total 3200 / 4200 2900 / 3800 1800 / 1800 Balance 192.5 / -567.5 2072.5 / 1292.5 -580 / -580 Laboratory Results 05/23/19 06:39: Sodium 141, Potassium 3.1 L, Chloride 111 H, Carbon Dioxide 18.0 L, Anion Gap 12, BUN 4 L, Creatinine 0.76, Estim Creat Clear Calc 57.17, Est GFR (MDRD) Af Amer 98, Est GFR (MDRD) Non-Af 81, BUN/Creatinine Ratio 5.2 L, Glucose 75, Calcium 7.8 L, Total Bilirubin 0.40, AST 27, ALT 18, Alkaline Phosphatase 85, Total Protein 5.7 L, Albumin 2.6 L, Globulin 3.1, Albumin/Globulin Ratio 0.8 L, Amylase 39, Lipase 223 05/23/19 06:39: WBC 7.1, RBC 3.72 L, Hgb 10.6 L, Hct 32.2 L, MCV 86.6, MCH 28.5, MCHC 32.9, RDW Std Deviation 42.1, RDW Coeff of Janey 13.5, Plt Count 163, MPV 10.1, Immature Gran % (Auto) 1.400 H, Neut % (Auto) 81.2 H, Lymph % (Auto) 8.4 L, [place] % (Auto) 8.4, Eos % (Auto) 0.3, Baso % (Auto) 0.3, Absolute Neuts (auto) 5.8, Absolute Lymphs (auto) 0.60 L, Nucleated RBC % 0, Differential Comment SCANNED Current Medications Acetaminophen (Tylenol) 650 mg PO Q6H PRN PRN PRN Reason: Non-cardiac pain (mod-severe) Hydrocodone Bitart/Acetaminophen ([place] 5mg-325mg) 1 - 2 tablet PO Q4H PRN PRN PRN Reason: Pain Score 4-10/10 Al Hydroxide/Mg Hydroxide (Mylanta Ii) 15 - 30 ml PO Q4H PRN PRN PRN Reason: INDIGESTION Albuterol Sulfate (Ventolin Aerosols) 2.5 mg INHALATION Q2H PRN PRN PRN Reason: dyspnea, wheezing Dextrose (D50w Syringe) 0 gm IV X1 PRN; Protocol PRN Reason: Hypoglycemia Enoxaparin Sodium (Lovenox) 40 mg SC DAILY@1000 SHARAN Last Admin: 05/22/19 10:36 Dose: 40 mg Documented by: Glucagon () 1 mg IM .X1 PRN PRN Reason: Hypoglycemia Hydralazine HCl (Apresoline Iv) 10 mg IV Q4H PRN PRN PRN Reason: SBP > 160 Pantoprazole Sodium 40 mg/ (Sodium Chloride) 110 mls @ 330 mls/hr IV Q24 [facility] Last Infusion: 05/22/19 10:55 Dose: Infused Documented by: Potassium Chloride/Dextrose/Sod Cl (Kcl 20meq In D5.45ns 1000ml) 1,000 mls @ 70 mls/hr IV .[id number] [facility] Magnesium Hydroxide (Milk Of Magnesia) 30 ml PO DAILY PRN PRN Reason: Constipation Melatonin (Melatonin) 3 mg PO QHS PRN PRN PRN Reason: INSOMNIA Metoprolol Succinate (Toprol Xl (Beta Mitul)) 25 mg PO DAILY [facility] Last Admin: 05/23/19 07:46 Dose: 25 mg Documented by: Morphine Sulfate () 2 - 4 mg IV Q4H PRN PRN PRN Reason: Pain Score 1-1010 Last Admin: 05/23/19 07:44 Dose: 2 mg Documented by: Morphine Sulfate () 2 - 4 mg IV Q4H PRN PRN PRN Reason: Pain Score 1-10/10 Nitroglycerin (Nitrostat) 0.4 mg SUBLINGUAL Q5M PRN PRN Reason: CARDIAC/CHEST PAIN Ondansetron HCl (Zofran) 4 mg IV Q6H PRN PRN PRN Reason: NAUSEA/VOMITING Prochlorperazine Edisylate (Compazine Iv) 5 mg IV Q4H PRN PRN PRN Reason: NAUSEA/VOMITING Last Admin: 05/22/19 09:04 Dose: 5 mg Documented by: Quetiapine Fumarate (Seroquel) 50 mg PO QHS [facility] Last Admin: 05/22/19 20:49 Dose: 50 mg Documented by: Sertraline HCl (Zoloft) 150 mg PO DAILY [facility] Last Admin: 05/22/19 12:51 Dose: Not Given Documented by: Sodium Chloride () 5 - 15 ml IV UD PRN PRN Reason: SALINE FLUSH Last Admin: 05/23/19 07:43 Dose: 10 ml Documented by: Medical Necessity - Tobacco Use Smoking Status: Former smoker Tobacco Use: Non-smoker Assessment/Plan All Active Problems (Last Reviewed 05/14/19 @ 13:58 by Sarah Covington) Dehydration (Acute) Pancreatitis (Acute) Acute recurrent pancreatitis (Acute) Patient is a 63-year-old lady with history of recurrent pancreatitis admitted with abdominal pain. 1. Acute recurrent pancreatitis. ~Patient has apparently undergone extensive work-up at the [facility] without any identifiable etiology. She apparently underwent cholecystectomy in October 2018 for suspected gallstone pancreatitis however sentence continues to be recurrent. She was advised to stop taking her lisinopril and simvastatin. Admitted to regular nursing floor managed conservatively. Consult was placed to general surgery seen by the abdomen who recommended for patient undergo MRCP ~05/22/2019; Patient seen MRCP obtained the day prior was unremarkable. Patient was started on clear liquid however she has not been able to tolerate it. Was on Pepcid switched to Protonix ~05/23/2019; Patient seen still complains of significant epigastric discomfort as well as nausea. Did discuss case with Dr. Juárez with general surgery recommended for patient to undergo endoscopic evaluation to rule out either gastritis or peptic ulcer which may explain patient's persistent nausea 2. Hypertension ~ blood pressure controlled, home medications except for lisinopril continued with dose adjustment as needed 3. Dyslipidemia ~Previously on statins discontinued as a result of patient's recurrent pancreatitis 4. Morbid obesity with BMI of 39.6 ~ Weight loss advised 5. Depression with anxiety ~ Patient is on SSRI as well as Seroquel 6. Thyroid nodules ~ patient is undergoing evaluation as outpatient nodules assessed to be benign 7. DVT prophylaxis SC Lovenox Clinical Impression(s) from Imaging Studies MRCP 05/21/19 11:30 IMPRESSION: Normal MR Cholangiopancreatography (MRCP) after cholecystectomy. Electronically Signed: Terrence Durham MD at 14:30 EDT Tel , Service support , Code Visit Inpatient E&M: 61755 Subs Hosp L2
--- NOTE | 2019-05-23 08:20 | NURSING ---
Dr. Canas called and states that per Dr. Amador's request he plans to perform an upper scope for pt today at 1000. Order for NPO now- (npo order and sign on door placed by this RN) and to have consent for EGD. Mike, RN notified of same.
--- NOTE | 2019-05-23 09:08 | NURSING ---
Report called to Kimberly Story.
--- NOTE | 2019-05-23 09:15 | NURSING ---
central reg and ER reg called and notified of pt adm in ED.M-- corrected at this time. Pt was admitted 05/20/19
[2019-05-23 09:45] LABS: International Normalized Ratio 1.2; Partial Thromboplast Time 31.9 Seconds (24.1-36.2); Prothrombin Time (Protime)PT. 15.1 SECONDS (11.7-14.9)
[2019-05-23] MEDS: Sertraline 50 MG Tablet 150 MG PO (10:33)
[2019-05-23] MEDS: Enoxaparin 40 MG/0.4 ML Syringe SC (10:35)
--- NOTE | 2019-05-23 11:10 | NURSING ---
Dr. Canas called in and states that anesthesiologist is unavailable to complete 1000 upper scope and so pt is scheduled for 0700 tomorrow morning instead. Ok to give clear liquids tonight.
[2019-05-23] MEDS: Ondansetron 4 MG/2 ML Vial IV ×2 (12:29→21:16)
--- NOTE | 2019-05-23 14:03 | PN.SURG_ITS ---
Patient Problems: Active and Suspected Problems (Last Reviewed 05/14/19 @ 13:58 by Sarah Covington) Dehydration (Acute) Pancreatitis (Acute) Subjective: still nauseated, still superumbilical and epigastric pain - Physical Exam General: Alert, Oriented x3, Cooperative Lungs: Clear to auscultation, Normal air movement Cardiovascular: Regular rate, No murmurs Abdomen: Bowel Sounds Present, Soft, Non Tender Vital Signs Temp Pulse Resp BP Pulse Ox 98.8 F 67 12 152/76 H 92 05/23/19 09:29 05/23/19 09:29 05/23/19 09:29 05/23/19 09:29 05/23/19 11:09 Oxygen Delivery Method Room Air Weight: 95 kg Body Mass Index (BMI) 39.5 Intake and Output for Last 24 Hours 05/21/19 05/22/19 05/23/19 23:59 23:59 23:59 Intake Total 3392.5 / 3632.5 4972.5 / 5092.5 2055.67 / 2055.67 Output Total 3200 / 4200 2900 / 3800 3320 / 3320 Balance 192.5 / -567.5 2072.5 / 1292.5 -1264.33 / -1264.33 Laboratory Tests Past 24 Hrs 05/23/19 05/23/19 05/23/19 06:39 06:39 09:02 WBC 7.1 RBC 3.72 L Hgb 10.6 L Hct 32.2 L MCV 86.6 MCH 28.5 MCHC 32.9 RDW Std Deviation 42.1 RDW Coeff of Janey 13.5 Plt Count 163 MPV 10.1 Immature Gran % (Auto) 1.400 H Neut % (Auto) 81.2 H Lymph % (Auto) 8.4 L [place] % (Auto) 8.4 Eos % (Auto) 0.3 Baso % (Auto) 0.3 Absolute Neuts (auto) 5.8 Absolute Lymphs (auto) 0.60 L Nucleated RBC % 0 Differential Comment SCANNED PT 15.1 H INR 1.2 APTT 31.9 Sodium 141 Potassium 3.1 L Chloride 111 H Carbon Dioxide 18.0 L Anion Gap 12 BUN 4 L Creatinine 0.76 Estim Creat Clear Calc 57.17 Est GFR (MDRD) Af Amer 98 Est GFR (MDRD) Non-Af 81 BUN/Creatinine Ratio 5.2 L Glucose 75 Calcium 7.8 L Total Bilirubin 0.40 AST 27 ALT 18 Alkaline Phosphatase 85 Total Protein 5.7 L Albumin 2.6 L Globulin 3.1 Albumin/Globulin Ratio 0.8 L Amylase 39 Lipase 223 Medical Necessity - Tobacco Use Smoking Status: Former smoker Tobacco Use: Non-smoker Assessment/Plan All Active Problems (Last Reviewed 05/14/19 @ 13:58 by Sarah Covington) Dehydration (Acute) Pancreatitis (Acute) Acute recurrent pancreatitis (Acute) recurring pancreatitis-unknown etiology Repeat MRCP - no abnormalities noted. Patient also had negative IgG4 subclass, negative enteric panels and negative cryptosporidium and giardia panels She has stopped her simvastatin. GI recommendations from [facility] included recommending stopping lisinopril. I would ask pharmacy to evaluate her home medication list for other medications that could cause recurring pancreatitis. She was noting continued nausea and vomiting yesterday. Compazine was more effective than Zofran. will plan for upper endoscopy tomorrow morning to assure that symptoms are not caused by peptic ulcer disease.
[2019-05-23] MEDS: hydrALAZINE 20 MG/ML Vial 10 MG IV (19:57)
[2019-05-23] MEDS: QUEtiapine 25 MG Tablet 50 MG PO (21:26)
[2019-05-24] VITALS (14 sets, daily range): BP systolic 128–171; BP diastolic 67–95; PULSE 54–74; RESP 12–18; TEMP 36.5–37.1; O2SAT 87–100
--- NOTE | 2019-05-24 | IMM_PTH ---
PATIENT: AUGUSTINE PENA LOC: MS3 U#:[id number] AGE/SX: 63/F ROOM: MS312 RE05/20/[address]: Dr. Tony Shine MD : 1955 BED: 1 DIS: 05/25/2019 SPEC #: [id number] RECD: 05/25/19 10:02 STATUS: MARY KATE BILLIE #: [id number] NICOLE: 05/24/19 00:[address]: Terrence Canas DEPT: IMMUNOHISTOCHEMISTRY RECD BY: Cristela Costa ENTERED: 05/25/19 10:04 SP TYPE: IMMUNO OTHR DR: MD Dr. Tony Dixon MD Dr. William Lago, MD Tissues: Gastric mucous membrane Procedures: H Pylori (initial) PHYSICIAN & INSTITUTION [place] [id number] SPECIMEN INFORMATION: Tissue Source: Antrum biopsy Clinical Info: Nausea and epigastric pain Specimen Number: [id number] CPT code: 46061 METHODOLOGY: Deparaffinized sections of prefer/formalin-fixed tissue or PAP/DQ stained slides are incubated with monoclonal/polyclonal antibodies/oligonucleotide probes. Localization is made via biotin free immunoperoxidase method. Appropriate controls are performed and reacted as expected. Results on target cell population are indicated in the following table: RESULTS: ANTIBODY / CLONE RESULT H Pylori (polyclonal) negative These tests were developed and their performance characteristics determined by [facility]. They may not have been cleared or approved by the U.S. Food and Drug Administration. The FDA has determined that such clearance or approval is not necessary. INTERPRETATION: Antrum biopsy: Negative for Helicobacter pylori organisms. SJ:hiro 05/26/19
[2019-05-24] MEDS: Morphine 2 MG/ML Syringe IV ×3 (04:28→22:08)
[2019-05-24] MEDS: 0.9% NaCl Peripheral Flush Adult/Peds IV ×2 (05:45→17:48)
[2019-05-24] MEDS: Lactated Ringers 1,000 ML 100 ML IV (06:42)
--- NOTE | 2019-05-24 07:05 | EGD_PTH ---
PATIENT: AUGUSTINE PENA LOC: MS3 U#:[id number] AGE/SX: 63/F ROOM: MS312 RE05/20/[address]: Dr. Tony Shine MD : 1955 BED: 1 DIS: 05/25/2019 SPEC #: [id number] RECD: 05/24/19 09:13 STATUS: MARY KATE BILLIE #: [id number] NICOLE: 05/24/19 07:[address]: Terrence Canas DEPT: SURGICAL PATHOLOGY RECD BY: Cristela Costa ENTERED: 05/25/19 09:32 SP TYPE: EGD BIOPSY [facility] DR: MD Dr. Tony Dixon MD Dr. William Lago, MD Tissues: Gastric mucous membrane Procedures: Surgery Specimen Level IV HEADER OPERATION: EGD ([facility]) PRE-OP DIAGNOSIS: Nausea and epigastric pain TISSUE SUBMITTED: Antrum biopsy for H. pylori and path MICROSCOPIC DIAGNOSIS Antrum biopsy: Mild gastritis. See microscopic description and comment. CASSANDRA:hiro 05/26/19 COMMENT The results of immunohistochemistry for Helicobacter pylori will be reported separately ([id number]). MICROSCOPIC DESCRIPTION Slides are reviewed. The specimen shows fragments of gastric mucosa with chronic inflammatory cell infiltrates in the lamina propria consisting of lymphocytes and plasma cells, consistent with mild chronic gastritis. GROSS DESCRIPTION Received in fixative is one container labeled with the patient's name and designated antrum biopsy. The specimen consists of one irregular fragment of light mendez soft tissue that measures 0.3 x 0.3 x 0.1 cm. The specimen is totally submitted in one cassette. / CASSANDRA:hiro 05/25/19 TC:4 CPT: 34931
--- NOTE | 2019-05-24 07:22 | OP.ENDO_ITS ---
05/24/2019 Mauro Hastings Re : Upper GI endoscopy procedure for Radha Retana Venkata This procedure was performed on Friday, May 24, 2019. My impressions and recommendations are as follows: Impressions : - Normal examined jejunum. - Normal examined duodenum. - Normal stomach. Biopsied. - Normal esophagus. Recommendations : - [facility]. - Resume previous diet. - Continue present medications. My findings are described in the full procedure note, which is enclosed. If I can be of further assistance, please feel free to contact me at Doctor phone number(s): , Work: . Sincerely, Terrence Canas MD 05/24/2019 7:21:48 AM This report has been signed electronically.
[2019-05-24] MEDS: Metoprolol(XL)Succ 25 MG Tablet PO (09:22)
[2019-05-24] MEDS: Sertraline 50 MG Tablet 150 MG PO (09:23)
[2019-05-24] MEDS: Enoxaparin 40 MG/0.4 ML Syringe SC (09:24)
[2019-05-24 09:38] LABS: Potassium 2.9 mmol/L (3.5-5.1)
--- NOTE | 2019-05-24 09:54 | PN_ITS ---
Patient Problems: Active and Suspected Problems (Last Reviewed 05/14/19 @ 13:58 by Sarah Covington) Dehydration (Acute) Pancreatitis (Acute) Subjective: CC; follow-up acute bronchitis/persistent nausea Patient seen underwent EGD this a.m. no evidence of a peptic ulcer gastritis was found. Plan is advance patient's diet. Potassium however is down to 2.9 Objective: GENERAL: cooperative HEENT: Atraumatic; moist oral mucosa EYES; Anicteric, Normal Conjunctiva NECK; supple, normal thyroid, RESPIRATORY: Diminished to auscultation CARDIOVASCULAR: Regular S1 S2, GI: soft, non-tender, normoactive bowel sounds, : No Renal angle tenderness; EXTREMITIES: No edema, no clubbing, MUSCULOSKELETAL: No Joint Tenderness; NEURO: Awake; no lateralizing signs. SKIN: No Rash PSYCH;flat affect Vitals/I&O's: Vital Signs Temp Pulse Resp BP Pulse Ox 97.8 F 69 14 157/90 H 95 05/24/19 09:00 05/24/19 09:22 05/24/19 09:00 05/24/19 09:00 05/24/19 09:00 Oxygen Flow Rate (L/min) 3 Oxygen Delivery Method Room Air Weight: 95 kg Body Mass Index (BMI) 39.5 Intake and Output for Last 24 Hours 05/22/19 05/23/19 05/24/19 23:59 23:59 23:59 Intake Total 4972.5 / 5092.5 2852.50 / 2852.50 986.83 / 986.83 Output Total 2900 / 3800 4520 / 4520 Balance 2072.5 / 1292.5 -1667.50 / -1667.50 986.83 / 986.83 Laboratory Results 05/24/19 09:18: Potassium 2.9 L Current Medications Acetaminophen (Tylenol) 650 mg PO Q6H PRN PRN PRN Reason: Non-cardiac pain (mod-severe) Hydrocodone Bitart/Acetaminophen ([place] 5mg-325mg) 1 - 2 tablet PO Q4H PRN PRN PRN Reason: Pain Score 4-10/10 Al Hydroxide/Mg Hydroxide (Mylanta Ii) 15 - 30 ml PO Q4H PRN PRN PRN Reason: INDIGESTION Albuterol Sulfate (Ventolin Aerosols) 2.5 mg INHALATION Q2H PRN PRN PRN Reason: dyspnea, wheezing Dextrose (D50w Syringe) 0 gm IV X1 PRN; Protocol PRN Reason: Hypoglycemia Enoxaparin Sodium (Lovenox) 40 mg SC DAILY@1000 SHARAN Last Admin: 05/24/19 09:24 Dose: 40 mg Documented by: Glucagon () 1 mg IM .X1 PRN PRN Reason: Hypoglycemia Hydralazine HCl (Apresoline Iv) 10 mg IV Q4H PRN PRN PRN Reason: SBP > 160 Last Admin: 05/23/19 19:57 Dose: 10 mg Documented by: Pantoprazole Sodium 40 mg/ (Sodium Chloride) 110 mls @ 330 mls/hr IV Q24 [facility] Last Admin: 05/24/19 09:15 Dose: 330 mls/hr Documented by: Potassium Chloride/Dextrose/Sod Cl (Kcl 20meq In D5.45ns 1000ml) 1,000 mls @ 70 mls/hr IV .[id number] [facility] Last Infusion: 05/24/19 09:20 Dose: 0 mls/hr Documented by: Lactated Ringer's () 1,000 mls @ 100 mls/hr IV .Q10H [facility] Last Infusion: 05/24/19 08:08 Dose: Infused Documented by: Potassium Chloride 10 meq/ N/A 100 mls @ 100 mls/hr IV Q1H [facility] Stop: 05/24/19 13:59 Magnesium Hydroxide (Milk Of Magnesia) 30 ml PO DAILY PRN PRN Reason: Constipation Melatonin (Melatonin) 3 mg PO QHS PRN PRN PRN Reason: INSOMNIA Metoprolol Succinate (Toprol Xl (Beta Mitul)) 25 mg PO DAILY [facility] Last Admin: 05/24/19 09:22 Dose: 25 mg Documented by: Morphine Sulfate () 2 - 4 mg IV Q4H PRN PRN PRN Reason: Pain Score 1-10/10 Last Admin: 05/24/19 04:28 Dose: 2 mg Documented by: Morphine Sulfate () 2 - 4 mg IV Q4H PRN PRN PRN Reason: Pain Score 1-10/10 Nitroglycerin (Nitrostat) 0.4 mg SUBLINGUAL Q5M PRN PRN Reason: CARDIAC/CHEST PAIN Nutritional Formula (Lactose Free) (Ensure Clear) 120 ml PO TIDCM [facility] Last Admin: 05/24/19 09:21 Dose: Not Given Documented by: Ondansetron HCl (Zofran) 4 mg IV Q6H PRN PRN PRN Reason: NAUSEA/VOMITING Last Admin: 05/23/19 21:16 Dose: 4 mg Documented by: Potassium Chloride (K-Dur) 40 meq PO BIDCM [facility] Prochlorperazine Edisylate (Compazine Iv) 5 mg IV Q4H PRN PRN PRN Reason: NAUSEA/VOMITING Last Admin: 05/22/19 09:04 Dose: 5 mg Documented by: Quetiapine Fumarate (Seroquel) 50 mg PO QHS [facility] Last Admin: 05/23/19 21:26 Dose: 50 mg Documented by: Sertraline HCl (Zoloft) 150 mg PO DAILY [facility] Last Admin: 05/24/19 09:23 Dose: 150 mg Documented by: Sodium Chloride () 5 - 15 ml IV UD PRN PRN Reason: SALINE FLUSH Last Admin: 05/24/19 05:45 Dose: 10 ml Documented by: Medical Necessity - Tobacco Use Smoking Status: Former smoker Tobacco Use: Non-smoker Assessment/Plan All Active Problems (Last Reviewed 05/14/19 @ 13:58 by Sarah Covington) Dehydration (Acute) Pancreatitis (Acute) Acute recurrent pancreatitis (Acute) Patient is a 63-year-old lady with history of recurrent pancreatitis admitted with abdominal pain. 1. Acute recurrent pancreatitis. ~Patient has apparently undergone extensive work-up at the [facility] without any identifiable etiology. She apparently underwent cholecystectomy in October 2018 for suspected gallstone pancreatitis however sentence continues to be recurrent. She was advised to stop taking her lisinopril and simvastatin. Admitted to regular nursing floor managed conservatively. Consult was placed to general surgery seen by the abdomen who recommended for patient undergo MRCP ~05/22/2019; Patient seen MRCP obtained the day prior was unremarkable. Patient was started on clear liquid however she has not been able to tolerate it. Was on Pepcid switched to Protonix ~05/23/2019; Patient seen still complains of significant epigastric discomfort as well as nausea. Did discuss case with Dr. Juárez with general surgery dashawn mmended for patient to undergo endoscopic evaluation to rule out either gastritis or peptic ulcer which may explain patient's persistent nausea ~05/24/2019: EGD performed this a.m. failed to demonstrate any pathology to explain for patient's symptoms. Plan is advance patient's diet as tolerated 2. Hypokalemia ~05/24/2019 with potassium of 2.9 repletion initiated 3. Dyslipidemia ~Previously on statins discontinued as a result of patient's recurrent pancreatitis 4. Morbid obesity with BMI of 39.6 ~ Weight loss advised 5. Depression with anxiety ~ Patient is on SSRI as well as Seroquel 6. Thyroid nodules ~ patient is undergoing evaluation as outpatient nodules assessed to be benign 7. Hypertension ~ blood pressure controlled, home medications except for lisinopril continued with dose adjustment as needed 8. DVT prophylaxis ~SC Lovenox Code Visit Inpatient E&M: 52765 Subs Hosp L2
--- NOTE | 2019-05-24 11:39 | PN.SURG_ITS ---
Patient Problems: Active and Suspected Problems (Last Reviewed 05/14/19 @ 13:58 by Sarah Covington) Dehydration (Acute) Pancreatitis (Acute) Subjective: less pain, tolerating liquids from last night - Physical Exam General: Alert, Oriented x3, Cooperative Lungs: Clear to auscultation, Normal air movement Cardiovascular: Regular rate, No murmurs Abdomen: Bowel Sounds Present, Soft, Non Tender Vital Signs Temp Pulse Resp BP Pulse Ox 97.8 F 69 14 157/90 H 95 05/24/19 09:00 05/24/19 09:22 05/24/19 09:00 05/24/19 09:00 05/24/19 09:00 Oxygen Flow Rate (L/min) 3 Oxygen Delivery Method Room Air Weight: 95 kg Body Mass Index (BMI) 39.5 Intake and Output for Last 24 Hours 05/22/19 05/23/19 05/24/19 23:59 23:59 23:59 Intake Total 4972.5 / 5092.5 2852.50 / 2852.50 1111.83 / 1111.83 Output Total 2900 / 3800 4520 / 4520 150 / 150 Balance 2072.5 / 1292.5 -1667.50 / -1667.50 961.83 / 961.83 Laboratory Tests Past 24 Hrs 05/24/19 09:18 Potassium 2.9 L Medical Necessity - Tobacco Use Smoking Status: Former smoker Tobacco Use: Non-smoker Assessment/Plan All Active Problems (Last Reviewed 05/14/19 @ 13:58 by Sarah Covington) Dehydration (Acute) Pancreatitis (Acute) Acute recurrent pancreatitis (Acute) recurring pancreatitis-unknown etiology Repeat MRCP - no abnormalities noted. Patient also had negative IgG4 subclass, negative enteric panels and negative cryptosporidium and giardia panels She has stopped her simvastatin. GI recommendations from [facility] included recommending stopping lisinopril. I would ask pharmacy to evaluate her home medication list for other medications that could cause recurring pancreatitis. She was noting continued nausea and vomiting yesterday. Compazine was more effective than Zofran. upper endoscopy demonstrated no specific abnormalities but H. pylori and gastric biopsies were performed.
[2019-05-24 16:56] LABS: Potassium 3.2 mmol/L (3.5-5.1)
[2019-05-24] MEDS: Potassium Chloride 10mEq/100mL 10 MEQ/100 ML IV.SOLN. 80 MEQ IV BOLUS ×3 (17:54→22:26)
[2019-05-24] MEDS: hydrALAZINE 20 MG/ML Vial 10 MG IV (20:26)
[2019-05-24] MEDS: Ondansetron 4 MG/2 ML Vial IV (20:30)
[2019-05-24] MEDS: QUEtiapine 25 MG Tablet 50 MG PO (22:08)
[2019-05-25] MEDS: Potassium Chloride 10mEq/100mL 10 MEQ/100 ML IV.SOLN. 80 MEQ IV BOLUS (00:23)
[2019-05-25 01:13] VITALS: BP 133/79; PULSE 66; RESP 16; TEMP 36.8; O2SAT 94
[2019-05-25 05:40] LABS: Anion Gap 6 (5-15); BUN 2 mg/dL (7-18); BUN/Creat Ratio 3.1 RATIO (10-20); Calcium,Total 7.9 mg/dL (8.5-10.1); Chloride 105 mmol/L (98-107); Creatinine, Serum 0.64 mg/dL (0.55-1.02); EST Glomerular Filtration Rate 100 mL/min (>60); Est Glom Filt Rate - Afr Amer 121 mL/min (>60); Estimated Creatinine Clearance 67.89 ml/min; Glucose 104 mg/dL (74-106); Magnesium 1.4 mg/dL (1.6-2.6); Potassium 3.9 mmol/L (3.5-5.1); Sodium Level 139 mmol/L (136-145)
[2019-05-25 06:08] VITALS: BP 133/80; PULSE 66; RESP 16; TEMP 36.9; O2SAT 93
[2019-05-25 10:00] VITALS: BP 147/76; PULSE 70; RESP 16; TEMP 36.8; O2SAT 95
--- NOTE | 2019-05-25 10:03 | DCINST_ITS ---
- Discharge Diagnoses Current Active Problems: Current Active and Chronic Problems (Last Reviewed 05/14/19 @ 13:58 by Sarah Covington) Anxiety and depression (Chronic) Dehydration (Acute) Pancreatitis (Acute) You will use the following diet at home:: Regular Your food should be the consistency of: Regular Your liquids should be the consistency of: Regular/Thin Discharge Activity: Return to Normal Activity Call your doctor if you observe: Fever of 101 or Higher, Shortness of breath, Dizziness, Fainting spells, Swelling in the ankles, Chest pain, Increased palpitations (irregular heartbeat) Allergies/Adverse Reactions: Allergies No Known Allergies Allergy (Verified 05/20/19 10:54) Medications to take at Discharge Sertraline HCl [Zoloft] 150 mg PO DAILY 10/03/16 Omeprazole [Prilosec] 20 mg PO DAILY 10/25/16 Quetiapine Fumarate [Seroquel] 50 mg PO QHS 10/20/18 Metoprolol Succinate [Toprol Xl] 25 mg PO DAILY 05/20/19 Primary Care Physician: Mauro Hastings MD [Primary Care Provider] - Please follow up with your Primary Care Physician in: 3-5 days Test Results: Test results from this visit will be discussed in further detail at your follow- up appointment, if applicable. Please Follow Up With: Terrence Canas MD When: 1 week
[2019-05-25 10:04] VITALS: BP 153/99; PULSE 72; RESP 16; TEMP 36.8; O2SAT 99
[2019-05-25 10:56] VITALS: PULSE 71
[2019-05-25] MEDS: Sertraline 50 MG Tablet 150 MG PO (10:56)
[2019-05-25] MEDS: Metoprolol(XL)Succ 25 MG Tablet PO (10:56)
[2019-05-25] MEDS: Enoxaparin 40 MG/0.4 ML Syringe SC (10:58)
--- NOTE | 2019-05-25 12:39 | CHAPLAIN ---
patient was asleep
[2019-05-25] MEDS: Ondansetron 4 MG/2 ML Vial IV (12:47)
[2019-05-25] MEDS: 0.9% NaCl Peripheral Flush Adult/Peds IV (12:47)
--- NOTE | 2019-05-25 14:25 | PHA.DC.MR ---
Pharmacy Service has performed discharge medication reconciliation for this patient. The patient's discharge medication list was reviewed for discrepancies and discrepancies were resolved. Request made to evaluate meds for any that may cause pancreatitis. A review of current meds (including home meds) shows patient not on any meds to cause pancreatitis. Home Medications Sertraline HCl [Zoloft] 150 mg PO DAILY 10/03/16 Omeprazole [Prilosec] 20 mg PO DAILY 10/25/16 Quetiapine Fumarate [Seroquel] 50 mg PO QHS 10/20/18 Metoprolol Succinate [Toprol Xl] 25 mg PO DAILY 05/20/19
--- NOTE | 2019-05-25 15:26 | DS.PCM_ITS ---
Discharge Date and Diagnosis - Problem List Patient Problems: Active and Suspected Problems (Last Reviewed 05/14/19 @ 13:58 by Sarah Covington) Dehydration (Acute) Pancreatitis (Acute) Date of Admission: 05/20/19 Date of Discharge: 05/25/19 - Primary Discharge Diagnosis Active and Suspected Problems (Last Reviewed 05/14/19 @ 13:58 by Sarah Covington) Dehydration (Acute) Pancreatitis (Acute) - Secondary Discharge Diagnosis Chronic Problems (Last Reviewed 05/14/19 @ 13:58 by Sarah Covington) Anxiety and depression (Chronic) Pure hypercholesterolemia (Chronic) Thoracic aortic aneurysm without rupture (Chronic) Essential hypertension (Chronic) Morbid obesity (Chronic) GERD (gastroesophageal reflux disease) (Chronic) Hospital Course and Treatment Imaging Results: CXR: IMPRESSION: Normal chest. MRCP: IMPRESSION: Normal MR Cholangiopancreatography (MRCP) after cholecystectomy. EGD: Impressions : - Normal examined jejunum. - Normal examined duodenum. - Normal stomach. Biopsied. - Normal esophagus. Recommendations : - [facility]. - Resume previous diet. - Continue present medications. Consults: General Surgery Operations: None Procedures: EGD Summary of Care Provided: Per HPI: The patient is a 63 y/o F w/ PMHx: Morbid Obesity, HTN, HLD, Former Tobacco use, Anxiety and Depression, GERD, Hx Thoracic AA without rupture, Hx Thyroid nodules, Hx Pancreatitis with recent discharge on 04/21/2019 with acute recurrent pancreatitis with history status post cholecystectomy 10/2018 with presumed history of gallstone pancreatitis at that time per who re-presents to the [facility] ED on 05/20/19 with history of onset epigastric and left upper quadrant abdominal pain, severe, 10 out of 10 with associated nausea and emesis, not improving with lack of oral intake vomiting eventual ED presentation starting the evening prior and continuing. Work-up in the ED included T 98.7, heart rate 78, BP 141/67, respiratory rate 16, 98% on room air, CBC with WBC 6.8, hemoglobin 11, platelet 220 without market shift, CMP with glucose 55 otherwise not market appearing, troponin less than 0.015, lipase 536, urinalysis with elevated specific gravity, 150 ketones suggestive of dehydration otherwise no acute obvious evidence of UTI, chest x-ray with no acute cardiopulmonary findings. In the ED patient ministered normal saline, Zofran, morphine. Hospital Course: 1. Acute recurrent [id number] female presenting with epigastric and left upper quadrant abdominal pain. She had an elevated lipase consistent with pancreatitis, because she has had pink otitis in the past when symptoms started 24 hours prior to admission, she stopped eating to see if that could help it resolve. She continued to have pain and therefore came into the ER. Her lipase on admission was 536 which is not diagnostic however it may have been higher 24 to 48 hours prior to admission when she first started having pain. She denies any alcohol intake, and had her gallbladder removed. She has had an MRCP during this admission which was negative for any choledocholithiasis. Her triglycerides in April 2019 were normal and she has had a work-up for autoimmune pancreatitis in the past which was also negative. Of note she is on simvastatin and lisinopril as an outpatient both of which have been implicated in medication induced pancreatitis. Both were stopped and she did have improvement. On the day of discharge she was tolerating breakfast and she tolerated lunch. She wanted to go home and she understood the risks of going home. I discussed with her the need to follow-up with her primary care doctor and general surgery in 1 week. 2. HTN/HLD-discontinued her statin secondary to the most part of it causing medications pancreatitis. She was also on lisinopril which were discontinued on admission. She will need to follow-up with her primary care doctor for blood pressure management as an outpatient. On the day of discharge blood pressure was fluctuant between the 130s in the 140 systolic. 3. Her other medical diagnoses were evaluated and her home medications were continued where appropriate Patient Problems: Active and Suspected Problems (Last Reviewed 05/14/19 @ 13:58 by Sarah Covington) Dehydration (Acute) Pancreatitis (Acute) - Physical Exam General: Alert, Oriented x3, Cooperative, No apparent distress HEENT: Atraumatic, PERRLA, EOMI, Normocephalic Oral: Moist Mucosa Neck: Supple, No JVD Lungs: Clear to auscultation, Normal air movement, No rhonchi, No wheeze, No rales, Diminished Cardiovascular: Regular rate, Regular Rhythm, Normal S1, Normal S2, No murmurs Abdomen: Soft, Non Tender, Non-Distended, No Hepato-splenomegaly, Obese Extremities: No edema, Capillary Refill Less than 3 Seconds Skin: No rashes, No breakdown Neurological: Neuro grossly intact, Sensory exam intact to light touch and pain Psych/Mental Status: Normal Affect, Appropriate Vital Signs Temp Pulse Resp BP Pulse Ox 98.2 F 71 16 147/76 H 95 05/25/19 10:00 05/25/19 10:56 05/25/19 10:00 05/25/19 10:00 05/25/19 10:00 Oxygen Flow Rate (L/min) 3 Oxygen Delivery Method Room Air Weight: 209 lb 7.026 oz Body Mass Index (BMI) 39.5 Intake and Output for Last 24 Hours 05/23/19 05/24/19 05/25/19 23:59 23:59 23:59 Intake Total 2852.50 / 2852.50 2540.00 / 3020.00 1480.34 / 1480.34 Output Total 4520 / 4520 150 / 150 800 / 800 Balance -1667.50 / -1667.50 2390.00 / 2870.00 680.34 / 680.34 Laboratory Tests Past 24 Hrs 05/24/19 05/25/19 16:30 05:02 Sodium 139 Potassium 3.2 L 3.9 Chloride 105 Carbon Dioxide 28.0 Anion Gap 6 BUN 2 L Creatinine 0.64 Estim Creat Clear Calc 67.89 Est GFR (MDRD) Af Amer 121 Est GFR (MDRD) Non-Af 100 BUN/Creatinine Ratio 3.1 L Glucose 104 Calcium 7.9 L Magnesium 1.4 L Discharge Activity: Return to Normal Activity Call your doctor if you observe: Fever of 101 or Higher, Shortness of breath, Dizziness, Fainting spells, Swelling in the ankles, Chest pain, Increased palpitations (irregular heartbeat) Home Medications: Medications to take at Discharge Sertraline HCl [Zoloft] 150 mg PO DAILY 10/03/16 Omeprazole [Prilosec] 20 mg PO DAILY 10/25/16 Quetiapine Fumarate [Seroquel] 50 mg PO QHS 10/20/18 Metoprolol Succinate [Toprol Xl] 25 mg PO DAILY 05/20/19 Primary Care Physician: Mauro Hastings MD [Primary Care Provider] - Please follow up with your Primary Care Physician in: 3-5 days Please Follow Up With: Terrence Canas MD When: 1 week Disposition: Home Minutes spent on discharge:: 35 Medical Necessity - Tobacco Use Smoking Status: Former smoker Tobacco Use: Non-smoker Meaningful Use Info Meaningful Use Diagnoses (Choose all that apply): None applicable Code Visit Inpatient E&M: 86225 Disch Hosp
--- NOTE | 2019-05-25 16:07 | CHAPLAIN ---
Type of Pastoral Visit _x__ Initial Visit ___ Follow-up Visit ___ On-call Visit ___ General Patient Visit ___ Spiritual Assessment ___ Family Conference ___ Bereavement ___ Rapid Response ___ Code Blue ___ Other (describe below) Pastoral Care Referral From _x__ Patient ___ Family ___ Nurse ___ Physician ___ Filter Press Operator ___ Protective Officer ___ Other (describe below) Sacrament/Intervention _x__ Active listening ___ Anointing ___ Hoahaoism ___ Bereavement ___ Communion ___ [place] exploration ___ ___ Life review _x__ Prayer ___ Reconciliation ___ Sacrament of Sick _x__ Supportive presence ___ Wedding ___ Other (describe below) Pastoral Comments
--- NOTE | 2019-05-25 18:03 | PN.SURG_ITS ---
Patient Problems: Active and Suspected Problems (Last Reviewed 05/14/19 @ 13:58 by Sarah Covington) Dehydration (Acute) Pancreatitis (Acute) Subjective: tolerating a diet, less pain today. - Physical Exam General: Alert, Oriented x3, Cooperative Lungs: Clear to auscultation, Normal air movement Cardiovascular: Regular rate, No murmurs Abdomen: Bowel Sounds Present, Soft, Non Tender Vital Signs Temp Pulse Resp BP Pulse Ox 98.2 F 71 16 147/76 H 95 05/25/19 10:00 05/25/19 10:56 05/25/19 10:00 05/25/19 10:00 05/25/19 10:00 Oxygen Flow Rate (L/min) 3 Oxygen Delivery Method Room Air Weight: 95 kg Body Mass Index (BMI) 39.5 Intake and Output for Last 24 Hours 05/23/19 05/24/19 05/25/19 23:59 23:59 23:59 Intake Total 2852.50 / 2852.50 2540.00 / 3020.00 1480.34 / 1480.34 Output Total 4520 / 4520 150 / 150 800 / 800 Balance -1667.50 / -1667.50 2390.00 / 2870.00 680.34 / 680.34 Laboratory Tests Past 24 Hrs 05/25/19 05:02 Sodium 139 Potassium 3.9 Chloride 105 Carbon Dioxide 28.0 Anion Gap 6 BUN 2 L Creatinine 0.64 Estim Creat Clear Calc 67.89 Est GFR (MDRD) Af Amer 121 Est GFR (MDRD) Non-Af 100 BUN/Creatinine Ratio 3.1 L Glucose 104 Calcium 7.9 L Magnesium 1.4 L Medical Necessity - Tobacco Use Smoking Status: Former smoker Tobacco Use: Non-smoker Assessment/Plan All Active Problems (Last Reviewed 05/14/19 @ 13:58 by Sarah Covington) Dehydration (Acute) Pancreatitis (Acute) Acute recurrent pancreatitis (Acute) recurring pancreatitis-unknown etiology Repeat MRCP - no abnormalities noted. Patient also had negative IgG4 subclass, negative enteric panels and negative cryptosporidium and giardia panels She has stopped her simvastatin. GI recommendations from [facility] included recommending stopping lisinopril. I would ask pharmacy to evaluate her home medication list for other medications that could cause recurring pancreatitis. She was noting continued nausea and vomiting yesterday. Compazine was more effective than Zofran. upper endoscopy demonstrated no specific abnormalities but H. pylori and gastric biopsies were performed. please have the patient follow-up in my office in one week.
== END 2019-05-25 19:45 | disposition home or self-care (01) | DRG 440 ==
LOC: ED 11:37 → MS3 14:48
PROVIDERS: Anesthesiology; Internal Medicine; Surgery; Admitting Provider Family Medicine; Emergency Provider Emergency Medicine; Family Provider Family Medicine; PCP Family Medicine; Referring Provider Family Medicine; Visit Provider Family Medicine
PROC: 0DJ08ZZ Inspection of Upper Intestinal Tract, Via Natural or Artificial Opening Endoscopic (ICD-10-PCS; CPT 43235; principal; 2019-05-24 07:00)
DX: K85.90 Acute pancreatitis without necrosis or infection, unspecified (principal); I10 Essential (primary) hypertension; E66.01 Morbid (severe) obesity due to excess calories; Z68.39 Body mass index [BMI] 39.0-39.9, adult; E04.2 Nontoxic multinodular goiter; F41.8 Other specified anxiety disorders; Z87.891 Personal history of nicotine dependence; E87.6 Hypokalemia; K21.9 Gastro-esophageal reflux disease without esophagitis; I71.2 Thoracic aortic aneurysm, without rupture; E78.00 Pure hypercholesterolemia, unspecified; Z90.49 Acquired absence of other specified parts of digestive tract; K29.70 Gastritis, unspecified, without bleeding
CPT/HCPCS: 36415; 71046; 74181; 80048; 80053; 80076; 81001; 82150; 83605; 83690; 83735; 84132; 84484; 85025; 85610; 85730; 88305; 88342; 93005; 97162; 97166; 97530; 97802; 99285; J7030; J7040; J7120; A4216; J2405; J3490

== ENCOUNTER 2020-10-18 10:38 | Emergency (ER) | payer MEDICARE, MEDICAID, SELFPAY ==
[2020-10-18 10:41] VITALS: BP 166/83; PULSE 72; RESP 22; TEMP 38.1; O2SAT 94; BMI 41.3
--- NOTE | 2020-10-18 10:57 | RAD_ITS ---
STUDY: X-RAY CHEST REASON FOR EXAM: Female, 65 years old. fever, cough TECHNIQUE: Single AP portable view of the chest. COMPARISON: None. FINDINGS: The lungs are clear and expanded. There is no demonstrated pleural abnormality. Normal size heart. Normal mediastinum and ivan. Normal visualized pulmonary arteries. Normal visualized aortic arch and descending thoracic aorta. Normal visualized thoracic spine. Normal visualized ribs, clavicles, and shoulders. There is no demonstrated abnormality of the visualized soft tissue structures of the upper abdomen. RAD/Chest 1 View (Portable) IMPRESSION: Normal x-ray examination of the chest. Electronically Signed: Manohar Radford MD at 13:10 EST Tel , Service support ,
--- NOTE | 2020-10-18 10:58 | CT_ITS ---
STUDY: CT ABDOMEN AND PELVIS WITH CONTRAST REASON FOR EXAM: Female, 65 years old. abd pain RADIATION DOSAGE (If Supplied By Facility): CTDIvol = ( 14.44 ) mGy, DLP = ( 1183.62 ) mGycm TECHNIQUE: Transaxial images were obtained from the dome of the diaphragm to the symphysis pubis without oral contrast. IV 100mL Isovue-300 was administered. Sagittal and coronal images were reconstructed. Individualized dose optimization techniques were used for this CT. COMPARISON: None. FINDINGS: The visualized lung bases are unremarkable. The visualized portions of the heart are within normal limits. Normal liver. There are surgical clips in the gallbladder fossa consistent with a prior cholecystectomy. Mild splenomegaly. The spleen measures approximately 14 x 9 x 14 cm. Multiple hypoattenuation lesions are seen in the spleen the largest measures 1 cm most likely represent cysts or hemangiomas. Normal pancreas. Normal bilateral adrenal glands. Normal right kidney. Normal left kidney. There is a small hiatal hernia. Normal small intestine. Normal colon. The appendix is visualized and appears normal. Normal abdominal aorta. Normal inferior vena cava. Normal retroperitoneum. Normal urinary bladder. Normal abdominal wall. Normal osseous structures. CT/Abdomen/Pelvis W IV Cont ONLY IMPRESSION: Small hiatal hernia. Mild splenomegaly. The spleen measures approximately 14 x 9 x 14 cm. Multiple hypoattenuation lesions are seen in the spleen the largest measures 1 cm most likely represent cysts or hemangiomas. Electronically Signed: Manohar Radford MD at 13:14 EST Tel , Service support ,
--- NOTE | 2020-10-18 11:01 | ED.VISSUMM ---
- ER Visit Summary Date of Service: 10/18/20 Chief Complaint: Vomiting and diarrhea History of Present Illness: The patient is a 65 F presenting with vomiting and diarrhea which started yesterday. She states she has had several episodes of both vomiting and diarrhea. She denies blood in her emesis or stool. She is having left upper quadrant pain. She has history of pancreatitis and states this feels similar. She had chills at home. She has had shortness of breath and productive cough. She has myalgias. She lost her sense of taste a few weeks ago. She has not been tested for Covid. She also states that she is suicidal. She has had thoughts of running in front of a car versus cutting herself with a razor blade versus drowning herself in the bathtub. No history of past suicide attempts. Physical Examination: Vitals are stable. Temperature 100.5. Alert no acute distress. HEENT exam is unremarkable. Neck is supple. Lungs are clear and equal bilaterally. Heart is regular rate and rhythm. Abdomen is soft left upper quadrant tenderness with no guarding or rebound Extremities are unremarkable. Skin is warm and dry. No focal neurologic deficit. Depressed affect Remainder of exam is unremarkable. Emergency Department Course and Treatment: She was given morphine, Zofran IV. She was given Tylenol. Chest x-ray read by myself and radiology shows no acute process. CT abdomen pelvis shows small hiatal hernia. Mild splenomegaly. The spleen measures approximately 14 x 9 x 14 cm. Multiple hypoattenuation lesions are seen in the spleen the largest measures 1 cm most likely represent cysts or hemangiomas. CBC, chemistries unremarkable other than glucose 126, BUN 21. Lipase is 49. Urinalysis unremarkable. Troponin is negative. Lactic acid 2.0. Alcohol negative, tox positive for opiates. Covid is negative. Discussed with social work who evaluated the patient. Patient states that her suicidal thoughts are ongoing and she has no plan and would never act on these thoughts. Social work feels she is safe for discharge to follow-up with the counseling center who she follows with. Patient is also comfortable with this plan. She is able to tolerate p.o. in the emergency department. Advised return to ED for worsening complaints. Disposition: Discharged home Impression: Vomiting and diarrhea This note was generated with [employer] dictation software. It may contain incorrect words, spelling, and punctuation that were not noted in review of the chart prior to signing ED Disposition - Plan for ED Patient: Referrals: Mauro Hastings MD [Primary Care Provider] -
[2020-10-18] MEDS: Morphine 4 MG/ML Syringe IV (11:28)
[2020-10-18] MEDS: Ondansetron 4 MG/2 ML Vial IV (11:28)
[2020-10-18] MEDS: 0.9% Normal Saline 1,000 ML 1000 ML IV (11:29)
[2020-10-18] MEDS: Acetaminophen 500 MG Tablet 1000 MG PO (11:30)
[2020-10-18 11:31] LABS: Absolute Lymphocyte Count 0.12 X10^3/uL (0.83-4.51); Absolute Neutrophil Count 8.6 X10^3/uL (2.0-7.7); Basophil# 0.01 X10^3/uL; Basophil% 0.1 % (0-1); Eosinophil# 0.07 X10^3/uL; Eosinophils% 0.8 % (0-5); Hematocrit 37.2 % (37-47); Hemoglobin 12.3 g/dL (12.0-15.0); Lymphocyte # 0.12 X10^3/ul (4.0); Lymphocyte % 1.3 % (19-41); Mean Corp Hgb Conc 33.1 g/dL (32-36); Mean Corpuscular Hgb 27.2 pg (27.0-32.0); Mean Corpuscular Volume 82.3 fL (81-99); Mean Platelet Vol. 8.7 fl (6.2-12.0); Monocyte# 0.32 X10^3/uL; Monocyte% 3.5 % (0-10); NRBC Flagged by Analyzer 0 % (0-5); Neutrophil # 8.62 X10^3/uL (2.7-7.7); Neutrophil % 93.8 % (47-70); POSITIVE DIFFERENTIAL YES; Platelet Count 196 K/mm3 (150-450); RBC Distribution Width CV 12.3 % (11.6-14.6); RBC Distribution Width SD 37.1 fl (35.1-43.9); Red Blood Count 4.52 M/mm3 (4.2-5.4); White Blood Count 9.2 K/mm3 (4.4-11.0)
[2020-10-18 11:41] VITALS: BP 137/119; PULSE 76; RESP 16; TEMP 37.7; O2SAT 95
[2020-10-18 11:45] LABS: Differential Indicated SCAN CRITERIA MET
[2020-10-18 11:49] LABS: ALB/GLOB Ratio 0.9 RATIO (0.9-2.4); AST(SGOT) 17 U/L (15-37); Alanine Aminotransfer ALT/SGPT 17 U/L (13-56); Albumin, Serum 3.3 g/dL (3.2-5.0); Alkaline Phosphatase 116 U/L (45-117); Anion Gap 8 (5-15); BUN 21 mg/dL (7-18); BUN/Creat Ratio 24.2 RATIO (10-20); Calcium,Total 8.3 mg/dL (8.5-10.1); Chloride 107 mmol/L (98-107); Creatinine, Serum 0.87 mg/dL (0.55-1.02); EST Glomerular Filtration Rate 70 mL/min (>60); Est Glom Filt Rate - Afr Amer 84 mL/min (>60); Estimated Creatinine Clearance 48.65 ml/min; Globulin 3.7 g/dL (2.2-4.2); Glucose 126 mg/dL (74-106); Lipase 49 U/L (73-393); Potassium 3.8 mmol/L (3.5-5.1); Sodium Level 142 mmol/L (136-145)
[2020-10-18 12:01] LABS: Differential Comment SCANNED
[2020-10-18 13:01] VITALS: BP 163/77; PULSE 72; RESP 16; TEMP 37.2; O2SAT 94
--- NOTE | 2020-10-18 13:20 | CM.ED ---
SOCIAL WORK ASSESSMENT Informant: Dr. Madrigal Reason for Consult: Suicidal ideation Chief Compliant: Patient presents to ER for illness. When asked suicidal risk questions patient reported suicidal ideation with plan. Marital/Social History: Living Situation: Home alone in an apartment Support/Resources: [facility], daughter, and 2 sisters, Sergio Home Health aide History: N/A Education and Employment History: High School grad, disabled Mental Health Treatment/History: Depression. Patient reports is prescribed medication and follows with [facility]. school social worker is Taz Ortiz. Triggers/Stressors: illness Coping Skills: talking with sisters and Valance Cutter, Taz Substance Abuse History: Patient reports history of drug use in younger years. Patient states rarely drinks alcohol. Risk to Self/Others: Suicidal- Patient reports suicidal ideation reporting it comes and goes. Patient states I have thought of ways. Patient denies any specific plan to this worker. Patient states, I would never do it. Patient report prior hospitalizations 10 years ago. Homicidal- Patient denies any homicidal ideation. Mental Status Exam: Orientation- A&Ox3 Memory- Good Appearance/General Behavior: clean/appropriate, calm Mood/Affect: depressed, smiles and laughs with this worker during conversation at appropriate times Communication Pattern: responds to questions Thought Process: forward thinking, appropriate General Intellectual Functioning: Judgment: good Assessment: Met with patient in room. Introduced role and reason for referral. Patient open to talking with this worker. Patient reports has not been feeling well for some time. Patient states was worried pancreatitis was acting up. Patient openly discussed history of mental health and suicidal ideation. Patient states, I just wanted to be honest when they asked. Patient denies any specific plan to this worker. Patient stating I would never do it. Patient feels safe returning home with follow up through [facility]. Patient reports will be calling Taz her shoe caser through [facility]. Patient stating, I just want to know why I have been feeling so sick. Much emotional support and active listening provided throughout. Collaboration with Dr. Madrigal. Patient does not require hospitalization at this time. Medical work up being completed. Plan: TBD pending medical work up Maria Ines Cruz MSW, PRESIDENT CELEBRITY ACQUISTION
[2020-10-18 13:35] LABS: Bacteria 0 SEEN /hpf (None Seen); Mucous, Urine 0 SEEN /hpf (<or=2+); Red Blood Cells-Urine 0 SEEN /hpf (0-5)
[2020-10-18 13:49] LABS: Amphetamine Urine VISTA NEGATIVE (<1000 ng/mL); Barbiturate Urine VISTA NEGATIVE (< 200 ng/mL); Benzodiazepine Urine VISTA NEGATIVE (< 200 ng/mL); Cocaine Urine VISTA NEGATIVE (< 300 ng/mL); Ecstacy Urine VISTA NEGATIVE (< 500 ng/mL); Methadone Urine VISTA NEGATIVE (< 300 ng/mL); PCP Urine VISTA NEGATIVE (< 25 ng/mL); THC Urine VISTA NEGATIVE (< 50 ng/mL); Vista UDS pH Range 6
[2020-10-18 13:51] LABS: Color, Urine Yellow (Yellow); Glucose, Dipstick Normal (Normal); Ketone-Dipstick Negative (Negative); Leukocyte Esterase-Dipstick 25 /ul (Negative); Nitrite-Dipstick Negative (Negative); Occult Blood-Urine Negative /ul (Negative); Protein-Dipstick 15 mg/dl (Negative); Urine Bilirubin Dipstick Negative (Negative); Urine Clarity Sl. Cloudy (Clear); Urine Urobilinogen Normal (Normal)
[2020-10-18 14:03] LABS: Squamous Epithelial Cells - UA 0-5 SEEN /hpf (5-10); White Blood Cells 0-5 SEEN /hpf (0-5)
[2020-10-18 14:16] VITALS: BP 134/98; PULSE 71; RESP 16; TEMP 37.3; O2SAT 96
--- NOTE | 2020-10-18 15:15 | CM.ED ---
SOCIAL WORK Met with patient in room to discuss discharge plan. Patient believes would benefit from skilled home health services and states had [facility] in the past. Patient reports feels safe with returning home and mind is at ease. Dr. Madrigal updated and in agreement with home health for half-way and physical therapy. Maria Ines Cruz, LOG RAFT WORKER, ENVIRONMENTAL EDUCATOR
--- NOTE | 2020-10-18 15:25 | ED.DEP ---
ED Disposition - Plan for ED Patient: Instructions: ED Vomiting and Diarrhea ... Prescriptions: Ondansetron [Zofran Odt] 4 mg PO Q8H PRN PRN #10 tab PRN Reason: Nausea Prescription Printed Referrals: Mauro Hastings MD [Primary Care Provider] - [facility]ing[facility]Center [GROUP OF PHYSICIANS] -
[2020-10-18 15:27] LABS: Reflex Lactate? Y
--- NOTE | 2020-10-18 15:55 | CM.ED ---
SOCIAL WORK Call to [facility] to update on referral. Maria Ines Cruz, SAGGER SOAK, BOWLING OR SKATING FRONT DESK CLERK
--- NOTE | 2020-10-18 16:08 | CM.ED ---
SOCIAL WORK Received call back from Makayla with [facility]. Unable to accept patient at this time. Reviewed with patient. Patient requests referral to [facility]. Left message with [facility], awaiting call back. Maria Ines Cruz MSW, IT RISK AND ASSURANCE MANAGER
--- NOTE | 2020-10-18 16:35 | CM.ED ---
SOCIAL WORK Received call back from Stefani with [facility]. Referral and order faxed. Maria Ines Cruz, PRODUCTION ASSEMBLY OPERATOR, BOXER OPERATOR
== END 2020-10-18 16:12 | disposition home or self-care (01) ==
LOC: ED 11:28
PROVIDERS: Emergency Provider Emergency Medicine; PCP Family Medicine
DX: R19.7 Diarrhea, unspecified (principal); R11.2 Nausea with vomiting, unspecified; I10 Essential (primary) hypertension; Z79.899 Other long term (current) drug therapy
CPT/HCPCS: 71045; 74177; 80053; 80307; 81001; 82077; 83605; 83690; 84484; 85025; 87426; 96361; 96374; 96375; 99285; J7030; Q9967; A4216; J2405

== ENCOUNTER 2021-10-16 14:34 | Observation (INO) | payer MEDICARE, MEDICAID, SELFPAY ==
[2021-10-16] VITALS (8 sets, daily range): BP systolic 103–151; BP diastolic 59–89; PULSE 62–68; RESP 12–18; TEMP 36.4–36.9; O2SAT 96–100; BMI 43.0; BMI 41.9
--- NOTE | 2021-10-16 14:59 | CT_ITS ---
HISTORY: dizziness, falls. TECHNIQUE: Multiple axial images were obtained of the brain without intravenous contrast. A radiation dose optimization technique was used for this scan. # of images incl. paperwork: 239. COMPARISON: 10/04/2014. FINDINGS: BRAIN PARENCHYMA:Multiple small foci and zones of low attenuation in the cerebral white matter most compatible with chronic small vessel ischemic gliosis. INTRACRANIAL HEMORRHAGE: No acute intracranial hemorrhage. CSF SPACES/MASS EFFECT: Diffuse atrophy with compensatory ventricular enlargement. No midline shift or other significant mass effect. ORBITS: Unremarkable. CALVARIUM: Intact. PARANASAL SINUSES AND MASTOID AIR CELLS: Clear. CT/Brain/Head without Contrast IMPRESSION: No acute intracranial process identified. Chronic small vessel ischemic gliosis. Individualized dose optimization techniques were used for this CT. at 1612 Reported and signed by: Tomeka Hager MD Electronically Signed: Tomeka Hager MD at 16:11 EST ,
--- NOTE | 2021-10-16 14:59 | EKG12_ITS ---
Test Reason : DIZZINESS Blood Pressure : / mmHG Vent. Rate : 063 BPM Atrial Rate : 063 BPM P-R Int : 192 ms QRS Dur : 092 ms QT Int : 446 ms P-R-T Axes : 043 -16 025 degrees QTc Int : 456 ms Normal sinus rhythm Inferior infarct , age undetermined Abnormal ECG Confirmed by INGA GROSSMAN, JORI ([id number]), book or script editor DEIDRE MENDEZ ([id number]) on 10/17/2021 9:58:08 AM Referred By: MARK Confirmed By:JORI XIONG MD
[2021-10-16 15:19] LABS: Absolute Lymphocyte Count 1.08 X10^3/uL (0.83-4.51); Absolute Neutrophil Count 5.5 X10^3/uL (2.0-7.7); Basophil# 0.05 X10^3/uL; Basophil% 0.7 % (0-1); Eosinophil# 0.15 X10^3/uL; Hemoglobin 13.2 g/dL (12.0-15.0); Lymphocyte # 1.08 X10^3/ul (0.83-4.51); Lymphocyte % 14.7 % (19-41); Mean Corpuscular Volume 87.9 fL (81-99); Mean Platelet Vol. 9.8 fl (6.2-12.0); Monocyte# 0.57 X10^3/uL; Monocyte% 7.8 % (0-10); NRBC Flagged by Analyzer 0 % (0-5); Neutrophil # 5.46 X10^3/uL (2.7-7.7); Neutrophil % 74.5 % (47-70); Platelet Count 299 K/mm3 (150-450); RBC Distribution Width CV 13.5 % (11.6-14.6); RBC Distribution Width SD 43.1 fl (35.1-43.9); Red Blood Count 4.55 M/mm3 (4.2-5.4); White Blood Count 7.3 K/mm3 (4.4-11.0)
--- NOTE | 2021-10-16 15:20 | EDS_ITS ---
HPI History of Present Illness Chief Complaint: Weakness Informant: patient Narrative Narrative: Patient is a 66-year-old female presenting with dizziness and generalized weakness. Patient states she fell out of her bed on evening, 4 days ago. She states she has been feeling unsteady with walking ever since. She notes her dizziness is worsening and she does have associated nausea with it. She notes she does not have nausea at rest when she not dizzy. The dizziness is made worse with turning her head especially when she moves her head to the left or looks to the left. She feels that her legs are weak. She is on any blood thinners. She does live home alone and does not feel safe at home. Denies any associated headache, numbness, back pain or urinary symptoms. No change in bowel movements. No fever or chills. No ringing or ears or hearing changes. No other complaints at this time. [facility] Medical History Acute recurrent pancreatitis Colon polyps Depression Essential hypertension Former smoker GERD (gastroesophageal reflux disease) Lung nodules Morbid obesity Multiple thyroid nodules Obesity Osteoarthritis Pancreatitis Poor dentition Pure hypercholesterolemia Thoracic aortic aneurysm without rupture Home Medications sertraline 200 mg PO DAILY 10/03/16 [History Last Taken 10/17/20] omeprazole 20 mg PO DAILY 10/25/16 [History Last Taken 10/17/20] metoprolol succinate 25 mg tablet,extended release 24 hr 25 mg PO DAILY #90 tab 03/23/21 [Rx Last Taken Unknown] bupropion HCl 300 mg PO DAILY 10/16/21 [History Last Taken Unknown] Allergy/AdvReac Type Severity Reaction Status Date / Time No Known Allergies Allergy Verified 10/16/21 14:38 Family History Mother Colon cancer Father Cancer Lung Sister Breast cancer Brother Cancer Lung Surgical History History of carpal tunnel surgery History of cholecystectomy History of total hysterectomy Social History Smoking Status: Former smoker alcohol intake: never substance use type: does not use caffeine: Yes Type: coffee Number of servings: 2 ROS ROS ED Constitutional Constitutional ED: Reports other Details: dizziness ; Denies chills or fever(s) Eyes Eyes: Denies blurry vision, change in vision or diplopia ENT ENT ED: Denies ear pain, rhinorrhea or sore throat Cardiovascular Cardiovascular: Denies chest pain Respiratory/Chest Respiratory/Chest: Denies cough or dyspnea Gastrointestinal Gastrointestinal: Reports nausea; Denies abdominal pain, diarrhea or vomiting Genitourinary Genitourinary ED: Denies dysuria or hematuria Musculoskeletal Musculoskeletal: Denies arthralgias, back pain, myalgias or neck pain Integumentary Denies rash Neurologic Neurologic: Reports weakness; Denies headache(s) or paresthesias Psychiatric Psychiatric: Denies depression EXAM Physical Exam Const Vital Signs: 10/16/21 14:35 10/16/21 14:40 Temperature 98.3 F Temperature Source Temporal Pulse Rate 64 Respiratory Rate 12 Respiratory Effort Normal Non-Labored Respiratory Pattern Normal Blood Pressure 151/74 H Blood Pressure Mean 99 Pulse Ox 96 Oxygen Delivery Method Room Air Positive well nourished and well developed General Appearance ED: well developed and NAD HEENT Reports TM's clear and moist mucous membranes Negative for trauma or tenderness Tympanic Membrane ED: Yes TM's clear Eyes PERRL and EOMs intact bilaterally Eyes Narrative: Patient does not like to look towards the left. Does appear to have some nystagmus with leftward gaze when I am able to get her to look to the left Neck supple and no JVD Chest Wall inspection of chest normal Resp normal respiratory effort and clear to auscultation bilaterally Cardio regular rate, regular rhythm and no murmurs GI normal to inspection, nondistended, normoactive bowel sounds and non-tender Palpation: soft Extremity normal to inspection General Extremety ED: Negative for edema or tenderness General Extremity: Negative for edema Neuro oriented x3, CN's II-XII intact bilaterally and no sensory deficits noted Neuro Narrative: NIH=0 Normal coordination with normal [id number] Sensorium / Orientation: alert Motor Exam: strength 5/5 throughout Psych mental status grossly normal Skin no rashes or lesions noted and no wounds MDM MDM MDM Narrative Medical decision making narrative: Patient evaluated for weakness, dizziness and falls. She appears nontoxic in no acute distress. Patient does have difficulty looking to the left stating that reproduces her dizziness and makes her feel nauseous. On exam patient appears mildly dehydrated. She is hemodynamically stable. CBC is normal. BMP largely unremarkable. Creatinine is 1.08. Her baseline appears to be closer to 0.8. Urinalysis is concerning for UTI with 500 with esterase and positive nitrites. Culture is added on and she is given a dose of Rocephin. Patient is given a dose of Valium for what I presume to be peripheral vertigo. CT the brain is added on and she did have a fall 4 days ago as well. This is negative for any acute process. Patient be admitted for further monitoring and evaluation. She is agreeable this plan of care. Lab Data Attestation: I reviewed the patient's lab results. Labs: Laboratory Results - last 24 hr 10/16/21 10/16/21 10/16/21 14:45 14:45 15:25 WBC 7.3 RBC 4.55 Hgb 13.2 Hct 40.0 MCV 87.9 MCH 29.0 MCHC 33.0 RDW Std Deviation 43.1 RDW Coeff of Janey 13.5 Plt Count 299 MPV 9.8 Immature Gran % (Auto) 0.300 Neut % (Auto) 74.5 H Lymph % (Auto) 14.7 L Blount % (Auto) 7.8 Eos % (Auto) 2.0 Baso % (Auto) 0.7 Absolute Neuts (auto) 5.5 Absolute Lymphs (auto) 1.08 Nucleated RBC % 0 Sodium 138 Potassium 4.7 Chloride 108 H Carbon Dioxide 25.0 Anion Gap 5 BUN 18 Creatinine 1.08 H Estim Creat Clear Calc 38.67 Est GFR (MDRD) Af Amer 65 Est GFR (MDRD) Non-Af 54 L BUN/Creatinine Ratio 16.7 Glucose 99 Calcium 8.9 Total Bilirubin 0.50 AST 43 H ALT 37 Alkaline Phosphatase 95 Troponin I High Sens 7 C-React Prot Ext Range 5.73 H Total Protein 7.3 Albumin 3.3 Globulin 4.0 Albumin/Globulin Ratio 0.8 L Urine Color Yellow Urine Clarity Sl. Cloudy Urine pH 5.0 Ur Specific [place] 1.025 Urine Protein 30 H Urine Glucose (UA) Normal Urine Ketones 5 H Urine Occult Blood Negative Urine Nitrite Positive H Urine Bilirubin Negative Urine Urobilinogen 1 H Ur Leukocyte Esterase 500 H Radiography Chest X-Ray - ED: 1 View, Read by ED Physician, Read by Radiologist and No Acute Disease Diagnostic Testing: Clinical Impression(s) from Imaging Studies Brain CT 10/16/21 14:59 IMPRESSION: No acute intracranial process identified. Chronic small vessel ischemic gliosis. Individualized dose optimization techniques were used for this CT. at 1612 Reported and signed by: Tomeka Hager MD Electronically Signed: Tomeka Hager MD at 16:11 EST Reading Location ID and State: [facility] / [place] Tel , Service support , Chest X-Ray 10/16/21 15:40 IMPRESSION: No radiographic evidence of acute cardiopulmonary disease. at 1557 Reported and signed by: Tomeka Hager MD Electronically Signed: Tomeka Hager MD at 15:56 EST , Rhythm Strip Rhythm Strip: Sinus Rhythm Rate: 63 Ectopy: None EKG Initial EKG: Attestation: I personally reviewed and interpreted this EKG as follows: Interpretation: Sinus Rhythm Comments: Normal sinus rhythm rate of 63 Normal axis Normal intervals Normal ST segments Discharge Plan Triage Chief Complaint: Weakness ED Provider: Marci Diamond Dx/Rx/DC Orders Clinical Impression: Vertigo, UTI (urinary tract infection), Debility Prescriptions: No Action sertraline 100 MG tablet 200 mg PO DAILY RF: 0 omeprazole 20 MG capsule 20 mg PO DAILY RF: 0 bupropion HCl 300 mg tablet extended release 24 hr 300 mg PO DAILY RF: 0 metoprolol succinate 25 mg tablet extended release 24 hr 25 mg PO DAILY Qty: 90 RF: 3 Primary Care Provider: Mauro Hastings Referrals: Mauro Hastings MD [Primary Care Provider] - Disposition Disposition: [facility]
[2021-10-16 15:34] LABS: Red Blood Cells-Urine 0 SEEN /hpf (0-5); Squamous Epithelial Cells - UA 0 SEEN /hpf (5-10)
[2021-10-16 15:40] LABS: Albumin, Serum 3.3 g/dL (3.2-5.0); BUN 18 mg/dL (7-18); BUN/Creat Ratio 16.7 RATIO (10-20); Creatinine, Serum 1.08 mg/dL (0.55-1.02); EST Glomerular Filtration Rate 54 mL/min (>60); Est Glom Filt Rate - Afr Amer 65 mL/min (>60); Estimated Creatinine Clearance 38.67 ml/min; Glucose 99 mg/dL (74-106); Protein, Total 7.3 g/dL (6.4-8.2)
--- NOTE | 2021-10-16 15:40 | RAD_ITS ---
HISTORY: weakness. TECHNIQUE: XR Chest 1 View. # of images incl. paperwork: 1. COMPARISON: 10/18/2020. FINDINGS: CARDIOMEDIASTINAL STRUCTURES: Cardiac silhouette not enlarged. Mediastinal contour unremarkable. LUNGS: Radiographically clear. PLEURA: No pleural effusion or pneumothorax. OSSEOUS STRUCTURES: Unremarkable. RAD/Chest 1 View (Portable) IMPRESSION: No radiographic evidence of acute cardiopulmonary disease. at 1557 Reported and signed by: Tomeka Hager MD Electronically Signed: Tomeka Hager MD at 15:56 EST ,
[2021-10-16 15:41] LABS: ALB/GLOB Ratio 0.8 RATIO (0.9-2.4); AST(SGOT) 43 U/L (15-37); Alanine Aminotransfer ALT/SGPT 37 U/L (13-56); Alkaline Phosphatase 95 U/L (45-117); Anion Gap 5 (5-15); CRP 5.73 mg/L (0.0-3.0); Calcium,Total 8.9 mg/dL (8.5-10.1); Chloride 108 mmol/L (98-107); Potassium 4.7 mmol/L (3.5-5.1); Sodium Level 138 mmol/L (136-145); Troponin-I HS 7 pg/mL (3.0-54.0)
[2021-10-16 15:44] LABS: Color, Urine Yellow (Yellow); Glucose, Dipstick Normal (Normal); Ketone-Dipstick 5 mg/dl (Negative); Leukocyte Esterase-Dipstick 500 /ul (Negative); Nitrite-Dipstick Positive (Negative); Occult Blood-Urine Negative /ul (Negative); Protein-Dipstick 30 mg/dl (Negative); Specific Gravity, Urine 1.025 (1.002-1.030); Urine Bilirubin Dipstick Negative (Negative); Urine Clarity Sl. Cloudy (Clear); Urine Urobilinogen 1 mg/dl (Normal)
[2021-10-16] MEDS: diazePAM 5 MG Tablet 2.5 MG PO (15:47)
[2021-10-16] MEDS: 0.9% Normal Saline 1,000 ML 999 ML IV (15:51)
--- NOTE | 2021-10-16 16:08 | HP.PCM.HOS_ITS ---
HPI - General General Date of Admission: 10/16/21 HPI Narrative AUGUSTINE PENA, is a 66 F with a PMH as outlined who presents with a complaint of weakness and dizziness. SHe fell out of her bed 4 nights ago and has been weak since then. Dizziness is worsening and exacerbated by turning her head. She denied any numbness or tingling, headache or any weakness in any extremities. SHe denied any urinary symptoms. She has no history of vertigo. She admits to not eating or drinking well recently. Review of systems is otherwise negative. Vitals in the ED were BP of 151/74, UT of 64, RR of 12 and temp of 98.3F. He was saturating at 96% on room air. CBC was unremarkable and BMP showed Cr of 1.08 but was otherwise negative. UA showed evidence of UTI with positive nitrites nad LE of 500/hpf. She is being admitted to be managed for vertigo, due to probable BPPV or orthostatic hypotension and dehydration, as well as UTI and debility. [facility] Medical History (Updated 10/16/21 @ 17:12 by Nai Washington) Acute recurrent pancreatitis Anemia Chronic pain Colon polyps Depression Essential hypertension Former smoker GERD (gastroesophageal reflux disease) Lung nodules Morbid obesity Multiple thyroid nodules Obesity Osteoarthritis Osteoporosis Pancreatitis Poor dentition Pure hypercholesterolemia Thoracic aortic aneurysm without rupture Home Medications sertraline 200 mg PO DAILY 10/03/16 [History Last Taken 10/16/21] omeprazole 20 mg PO DAILY 10/25/16 [History Last Taken 10/16/21] metoprolol succinate 25 mg tablet,extended release 24 hr 25 mg PO DAILY #90 tab 03/23/21 [Rx Last Taken 10/16/21] aripiprazole 5 mg PO DAILY 10/16/21 [History Last Taken 10/16/21] bupropion HCl 300 mg PO DAILY 10/16/21 [History Last Taken 10/16/21] calcium carbonate-vitamin D3 1 tab PO DAILY 10/16/21 [History Last Taken 10/16/21] melatonin 3 mg PO QHS 10/16/21 [History Last Taken 10/14/21] Allergy/AdvReac Type Severity Reaction Status Date / Time No Known Allergies Allergy Verified 10/16/21 14:38 Family History Mother Colon cancer Father Cancer Lung Sister Breast cancer Brother Cancer Lung Surgical History History of carpal tunnel surgery History of cholecystectomy History of total hysterectomy Social History Smoking Status: Former smoker alcohol intake: never substance use type: does not use caffeine: Yes Type: coffee Number of servings: 2 ROS Constitutional Constitutional: Reports anorexia, fatigue, malaise and weakness; Denies change in weight, chills or fever(s) Eyes Eyes: Denies change in vision ENT HEENT: Denies dysphagia, nasal congestion or nasal discharge Cardiovascular Cardiovascular: Denies chest pain, dyspnea on exertion, lightheadedness, orthopnea, palpitations, paroxysmal nocturnal dyspnea or rapid heart rate Respiratory/Chest Respiratory/Chest: Denies cough, dyspnea, productive cough, shortness of breath at rest or shortness of breath with exertion Gastrointestinal Gastrointestinal: Denies abdominal pain, constipation, diarrhea, nausea or other Genitourinary Genitourinary: Reports urinary hesitancy; Denies burning urination, hematuria or urinary frequency Musculoskeletal Musculoskeletal: Denies joint pain or joint swelling Neurologic Neurologic: Denies confusion, dizziness, focal weakness or seizure-like activity Psychiatric Psychiatric: Denies anxiety or depression Endocrine Endocrinology: Denies change in body appearance Hematologic/Lymphatic Hematologic/Lymphatic: Denies anemia Vital Signs Vital Signs Vital Signs: 10/16/21 14:35 10/16/21 14:40 Temperature 98.3 F Temperature Source Temporal Pulse Rate 64 Respiratory Rate 12 Respiratory Effort Normal Non-Labored Respiratory Pattern Normal Blood Pressure 151/74 H Blood Pressure Mean 99 Pulse Ox 96 Oxygen Delivery Method Room Air Weight Weight: 227 lb 15.327 oz Body Mass Index (BMI) 43.0 Physical Exam Const alert, oriented x3 and no apparent distress General Appearance: cooperative HEENT normocephalic, head/scalp atraumatic, hearing grossly normal bilaterally and moist oral mucous membranes Eyes PERRL, EOMs intact bilaterally and conjunctivae normal Neck no lymphadenopathy, supple and no JVD Resp normal respiratory effort, no retractions, no use of accessory muscles and clear to auscultation bilaterally Cardio regular rate, regular rhythm, S1 normal heart sound, S2 normal heart sound and no murmurs GI normal to inspection, nondistended, normoactive bowel sounds, soft to palpation, non-tender and non-distended Extremity normal to inspection, full ROM and no clubbing, cyanosis or edema Peripheral Pulses: Yes pulses 2+ throughout Skin no rashes or lesions noted Neuro oriented x3, CN's II-XII intact bilaterally and moves all extremities Sensorium / Orientation: awake and alert Motor Exam: strength 5/5 throughout Psych affect normal Results Lab / Micro Data Result Diagrams: 10/16/21 14:45 10/16/21 14:45 Labs: Laboratory Results - last 24 hr 10/16/21 14:45: WBC 7.3, RBC 4.55, Hgb 13.2, Hct 40.0, MCV 87.9, MCH 29.0, MCHC 33.0, RDW Std Deviation 43.1, RDW Coeff of Janey 13.5, Plt Count 299, MPV 9.8, Immature Gran % (Auto) 0.300, Neut % (Auto) 74.5 H, Lymph % (Auto) 14.7 L, [place] % (Auto) 7.8, Eos % (Auto) 2.0, Baso % (Auto) 0.7, Absolute Neuts (auto) 5.5, Absolute Lymphs (auto) 1.08, Nucleated RBC % 0 10/16/21 14:45: Sodium 138, Potassium 4.7, Chloride 108 H, Carbon Dioxide 25.0, Anion Gap 5, BUN 18, Creatinine 1.08 H, Estim Creat Clear Calc 38.67, Est GFR (MDRD) Af Amer 65, Est GFR (MDRD) Non-Af 54 L, BUN/Creatinine Ratio 16.7, Glucos e 99, Calcium 8.9, Total Bilirubin 0.50, AST 43 H, ALT 37, Alkaline Phosphatase 95, Troponin I High Sens 7, C-React Prot Ext Range 5.73 H, Total Protein 7.3, Albumin 3.3, Globulin 4.0, Albumin/Globulin Ratio 0.8 L 10/16/21 15:25: Urine Color Yellow, Urine Clarity Sl. Cloudy, Urine pH 5.0, Ur Specific [place] 1.025, Urine Protein 30 H, Urine Glucose (UA) Normal, Urine Ket ones 5 H, Urine Occult Blood Negative, Urine Nitrite Positive H, Urine Bilirubin Negative, Urine Urobilinogen 1 H, Ur Leukocyte Esterase 500 H Radiology Impression Chest X-Ray 10/16/21 15:40 IMPRESSION: No radiographic evidence of acute cardiopulmonary disease. at 1557 Reported and signed by: Tomeka Hager MD Electronically Signed: Tomeka Hager MD at 15:56 EST Reading Location ID and State: [facility] / [place] Tel , Service support , Assessment & Plan Assessment/Plan (1) Vertigo: (2) UTI (urinary tract infection): (3) Debility: PLAN: #VErtigo * admit to PCU * appears to be BPPV, as the dizziness worsens with movement of her head; orthostatics cannot be ruled out also * CT of the brain negative for any acute intracranial pathology and showed chronic small vessel ischemic gliosis * Hydrate with IV fluid normal saline. PT OT consult. * Fall precautions. * check orthostatics * Get MRI of the brain to rule out a stroke #UTI: Urinalysis positive for UTI. We will get urine cultures. Start on IV ceftriaxone. #Hypertension: On metoprolol #Depression: On bupropion and sertraline #GERD: On omeprazole DVT prophylaxis: Lovenox. CODE STATUS: full code * Patient counseled extensively about different types of CODE STATUS including full code, DNR CCA and DNR CCA. Patient elects to be full code. * Total [id number] time 17 minutes. Charges/Coding Visit Charges OBSV E&M: 59313 Initial observation care L3 Procedures Hospitalists Procedures: 68811 Advncd Care Plan 30 Min
--- NOTE | 2021-10-16 16:17 | MRI_ITS ---
EXAM: MR HEAD WITHOUT INTRAVENOUS CONTRAST CLINICAL INDICATION: vertigo TECHNIQUE: Multiplanar and multisequence MR images of the brain were obtained without intravenous contrast. This report was created using [employer] report generation technology. COMPARISON: None. FINDINGS: BRAIN AND EXTRA-AXIAL SPACES: No acute intracranial hemorrhage, mass effect or edema. No evidence of acute cortical stroke. Periventricular small vessel ischemic change. No midline shift or hydrocephalus. Diffuse parenchymal atrophy. Posterior fossa structures are unremarkable. Basal cisterns are patent. SELLA: Unremarkable. Normal sella turcica, pituitary gland, infundibular stalk, optic chiasm and hypothalamus. AUDITORY SYSTEM: Unremarkable. The internal auditory canals are patent. BONES/JOINTS: Unremarkable. No discrete lytic or blastic abnormalities. SINUSES: Unremarkable as visualized. Clear. MASTOID AIR CELLS: Visualized sinuses and mastoid air cells are clear. ORBITS: Unremarkable as visualized. Both globes, extraocular muscles, optic nerves and retrobulbar fat appear unremarkable. VASCULATURE: Unremarkable as visualized. Normal flow voids in the major intracranial circulation. MRI/Brain without Contrast IMPRESSION: 1. No evidence of acute intracranial pathology. 2. Diffuse involutional changes and chronic ischemic small vessel white matter disease. Electronically Signed: Navneet Shook MD at 18:33 EST ,
[2021-10-16 16:34] LABS: Bacteria 4+ /hpf (None Seen); Mucous, Urine 3+ /hpf (<or=2+); White Blood Cells 10-25 SEEN /hpf (0-5)
[2021-10-16] MEDS: Ceftriaxone 1 GM/50 ML BAG IV (16:38)
[2021-10-16 16:39] LABS: CPK Total, Creatine Kinase 53 U/L (26-192)
[2021-10-16] MEDS: Nystatin Powder 15gm Bottle 1 APPLIC TOPICAL (21:52)
[2021-10-16] MEDS: MELATONIN 3 MG TABLET PO (21:52)
[2021-10-17] VITALS (10 sets, daily range): BP systolic 98–128; BP diastolic 58–86; PULSE 61–71; RESP 16–18; TEMP 36.2–36.8; O2SAT 94–99
[2021-10-17] MEDS: Nystatin Powder 15gm Bottle 1 APPLIC TOPICAL ×3 (05:24→21:07)
[2021-10-17 06:43] LABS: Absolute Neutrophil Count 3.8 X10^3/uL (2.0-7.7); Basophil# 0.05 X10^3/uL; Basophil% 0.8 % (0-1); Eosinophil# 0.22 X10^3/uL; Eosinophils% 3.6 % (0-5); Hematocrit 34.4 % (37-47); Hemoglobin 11.1 g/dL (12.0-15.0); Lymphocyte % 24.5 % (19-41); Mean Corp Hgb Conc 32.3 g/dL (32-36); Mean Corpuscular Hgb 28.5 pg (27.0-32.0); Mean Corpuscular Volume 88.2 fL (81-99); Mean Platelet Vol. 9.3 fl (6.2-12.0); Monocyte# 0.54 X10^3/uL; Monocyte% 8.8 % (0-10); NRBC Flagged by Analyzer 0 % (0-5); Neutrophil # 3.79 X10^3/uL (2.7-7.7); Platelet Count 212 K/mm3 (150-450); RBC Distribution Width CV 13.5 % (11.6-14.6); RBC Distribution Width SD 43.3 fl (35.1-43.9); White Blood Count 6.1 K/mm3 (4.4-11.0)
[2021-10-17 07:14] LABS: Anion Gap 4 (5-15); BUN 16 mg/dL (7-18); BUN/Creat Ratio 19.4 RATIO (10-20); Chloride 109 mmol/L (98-107); Creatinine, Serum 0.83 mg/dL (0.55-1.02); EST Glomerular Filtration Rate 74 mL/min (>60); Est Glom Filt Rate - Afr Amer 89 mL/min (>60); Estimated Creatinine Clearance 50.31 ml/min; Glucose 95 mg/dL (74-106); Sodium Level 139 mmol/L (136-145)
[2021-10-17] MEDS: Sertraline 100 MG Tablet 200 MG PO (08:47)
[2021-10-17] MEDS: buPROPion (XL) 300 MG TABLET.XL PO (08:47)
[2021-10-17] MEDS: Enoxaparin 40 MG/0.4 ML Syringe SC (08:47)
[2021-10-17] MEDS: Ceftriaxone 1 GM/50 ML BAG IV (08:47)
[2021-10-17] MEDS: Pantoprazole Sodium 20 MG Tablet PO (08:48)
[2021-10-17] MEDS: Metoprolol(XL)Succ 25 MG Tablet PO (08:48)
--- NOTE | 2021-10-17 10:45 | CASEMGMT ---
Per physician and PA, [place] patient is agreeable to SNF if recommended. SW met with patient, introduced self and role at [facility]. [facility]. Patient said if she is being discharged today or tomorrow she is too weak to go home. SW provided patient with a list of SNF providers including quality and resource use data and consistent with the patient?s preferred geographic region, medical needs, and insurance network. SW told patient we can see how she does with therapy and SW will check back. Gela Quintero [employer]
--- NOTE | 2021-10-17 12:10 | CASEMGMT ---
Therapy updated this RN CM on pt eval and this RN CM to room to discuss with pt. Pt is undecided on C vs SNF at this time. This RN CM to check back with pt later. [place] RN CM
--- NOTE | 2021-10-17 12:27 | PCM.PN.HOSP ---
Documented by User: Salvador JIMENEZ 10/17/21 12:37 Subjective Subjective Patient is a 66-year-old female who is comfortably resting in bed, alert and oriented x3. Patient reports that her vertigo has resolved for admission, but does endorse chronic weakness. Denies development of any new symptoms overnight. Does not appear in acute distress. Objective Data Objective Data Vital Signs: Vital Signs Temp Pulse Resp BP Pulse Ox 97.9 F 62 16 128/61 H 99 10/17/21 08:36 10/17/21 08:48 10/17/21 08:36 10/17/21 08:48 10/17/21 08:36 Oxygen Delivery Method Room Air Weight: 221 lb 14.4 oz Body Mass Index (BMI) 41.9 Intake & Output: Intake and Output for Last 24 Hours 10/15/21 10/16/21 10/17/21 23:59 23:59 23:59 Intake Total 1290 / 1390 220 / 220 Output Total 400 / 400 Balance 1290 / 1390 -180 / -180 Lab / Micro Data Result Diagrams: 10/17/21 06:13 10/17/21 06:13 Labs: Laboratory Results - last 24 hr 10/16/21 14:45: WBC 7.3, RBC 4.55, Hgb 13.2, Hct 40.0, MCV 87.9, MCH 29.0, MCHC 33.0, RDW Std Deviation 43.1, RDW Coeff of Janey 13.5, Plt Count 299, MPV 9.8, Immature Gran % (Auto) 0.300, Neut % (Auto) 74.5 H, Lymph % (Auto) 14.7 L, Henry % (Auto) 7.8, Eos % (Auto) 2.0, Baso % (Auto) 0.7, Absolute Neuts (auto) 5.5, Absolute Lymphs (auto) 1.08, Nucleated RBC % 0 10/16/21 14:45: Sodium 138, Potassium 4.7, Chloride 108 H, Carbon Dioxide 25.0, Anion Gap 5, BUN 18, Creatinine 1.08 H, Estim Creat Clear Calc 38.67, Est GFR (MDRD) Af Amer 65, Est GFR (MDRD) Non-Af 54 L, BUN/Creatinine Ratio 16.7, Glucose 99, Calcium 8.9, Total Bilirubin 0.50, AST 43 H, ALT 37, Alkaline Phosphatase 95, Troponin I High Sens 7, C-React Prot Ext Range 5.73 H, Total Protein 7.3, Albumin 3.3, Globulin 4.0, Albumin/Globulin Ratio 0.8 L 10/16/21 15:09: Total Creatine Kinase 53 10/16/21 15:25: Urine Color Yellow, Urine Clarity Sl. Cloudy, Urine pH 5.0, Ur Specific Matthews 1.025, Urine Protein 30 H, Urine Glucose (UA) Normal, Urine Ketones 5 H, Urine Occult Blood Negative, Urine Nitrite Positive H, Urine Bilirubin Negative, Urine Urobilinogen 1 H, Ur Leukocyte Esterase 500 H, Urine RBC 0 SEEN, Urine WBC 10-25 SEEN, Ur Squamous Epith Cells 0 SEEN, Urine Bacteria 4+, Urine Mucus 3+ 10/17/21 06:13: WBC 6.1, RBC 3.90 L, Hgb 11.1 L, Hct 34.4 L, MCV 88.2, MCH 28.5, MCHC 32.3, RDW Std Deviation 43.3, RDW Coeff of Janey 13.5, Plt Count 212, MPV 9.3, Immature Gran % (Auto) 0.300, Neut % (Auto) 62.0, Lymph % (Auto) 24.5, Henry % (Auto) 8.8, Eos % (Auto) 3.6, Baso % (Auto) 0.8, Absolute Neuts (auto) 3.8, Absolute Lymphs (auto) 1.50, Nucleated RBC % 0 10/17/21 06:13: Sodium 139, Potassium 4.0, Chloride 109 H, Carbon Dioxide 26.0, Anion Gap 4 L, BUN 16, Creatinine 0.83, Estim Creat Clear Calc 50.31, Est GFR (MDRD) Af Amer 89, Est GFR (MDRD) Non-Af 74, BUN/Creatinine Ratio 19.4, Glucose 95, Calcium 8.0 L Micro: Microbiology 10/16/21 15:25 Urine Catheter - Catheter Urine Culture - Preliminary Presumptive E. coli Radiography Diagnostic Testing: Radiology Impression Brain CT 10/16/21 14:59 IMPRESSION: No acute intracranial process identified. Chronic small vessel ischemic gliosis. Individualized dose optimization techniques were used for this CT. at 1612 Reported and signed by: Tomeka Hager MD Electronically Signed: Tomeka Hager MD at 16:11 EST Reading Location ID and State: [facility] / [place] Tel , Service support , Chest X-Ray 10/16/21 15:40 IMPRESSION: No radiographic evidence of acute cardiopulmonary disease. at 1557 Reported and signed by: Tomeka Hager MD Electronically Signed: Tomeka Hager MD at 15:56 EST Reading Location ID and State: [facility] / [place] Tel , Service support , Brain MRI 10/16/21 16:17 IMPRESSION: 1. No evidence of acute intracranial pathology. 2. Diffuse involutional changes and chronic ischemic small vessel white matter disease. Electronically Signed: Navneet Shook MD at 18:33 EST , Rhythm Strip Rhythm Strip: Sinus Rhythm Rate: 63 Ectopy: None Physical Exam Const alert, oriented x3 and no apparent distress HEENT head/scalp atraumatic and moist oral mucous membranes Head and Scalp: normocephalic Eyes PERRL and conjunctivae normal Neck no lymphadenopathy, supple and no JVD Resp normal respiratory effort, no retractions and no use of accessory muscles Cardio regular rate, regular rhythm and no JVD GI normal to inspection, nondistended, normoactive bowel sounds Extremity normal to inspection Skin no rashes or lesions noted Neuro CN's II-XII intact bilaterally Psych affect normal Assessment & Plan Assessment/Plan (1) Vertigo: (2) UTI (urinary tract infection): (3) Debility: PLAN: Day 1 Discharge planning: Current plan is for patient to discharge home with home health care when medically ready. 1) vertigo/stroke rule out Patient reports that vertigo has resolved and patient does not complain of nor did she demonstrate any focal neurological deficits. Brain MRI did not demonstrate any acute stroke. Could be BPPV or orthostatic hypotension. Check orthostatic vitals and have patient follow-up with primary care provider. 2) debility Patient reports chronic weakness and difficulty completing her ADLs/IADLs at home. Assessed by PT/OT, home health care established by case management. 3) UTI UA on admission showed yellow cloudy urine with positive nitrites, 500 leukocyte esterase, 10-25 urine WBCs and 4+ bacteria. UC preliminarily shows presumptive E. coli. We will continue IV Rocephin, await cultures for sensitivities and speciation.\ 4) HTN Continue metoprolol. 5) depression Continue bupropion and sertraline. 6) GERD Continue PPI. DVT prophylaxis - Lovenox. Patient seen by Salvador Rolle PA-C, under the supervision of Dr. Amador. Documented by User: Dr. Leonidas Amador MD 10/17/21 13:01 Objective Data Lab / Micro Data Result Diagrams: 10/17/21 06:13 10/17/21 06:13 Assessment & Plan Addt'l Comments This patient was seen in conjunction with Salvador Rolle PA-C. I have independently interviewed and examined the patient and reviewed pertinent historical, laboratory, and other data. Please refer to Salvador Rolle PA-C's note for details of this patient's presentation, findings, and recommendations. I have reviewed Salvador Rolle PA-C's note and concur with documented findings. In brief, patient is a 66-year-old lady brought to the hospital with progressive generalized weakness and acute vertigo. Found to have acute cystitis admitted to a monitored bed for subsequent management Physical Examination: GENERAL: cooperative HEENT: Atraumatic; EYES; Anicteric, Normal Conjunctiva NECK; supple, normal thyroid, RESPIRATORY: Diminished to auscultation CARDIOVASCULAR: Regular S1 S2, GI: soft, normoactive bowel sounds, : No Renal angle tenderness; EXTREMITIES: No edema, no clubbing, MUSCULOSKELETAL: no muscle wasting NEURO: Awake; no lateralizing signs. SKIN: No Rash PSYCH; Flat affect Assessment: 1. Acute vertigo 2. Acute cystitis with E. coli 3. Physical deconditioning 4. Essential tension 5. GERD 6. Depression with anxiety 7. DVT prophylaxis Recommendations: 1. I have discussed the results of my overview and impressions with the patient 2. Options for management were reviewed Total time spent by myself and the advanced practice practitioner evaluating patient, reviewing labs, subsequent management decisions, discussion with patient as well as other providers 40 minutes ( 25 of which was spent by myself) Charges/Coding Visit Charges Inpatient E&M: 32362 Subs Hosp L3
--- NOTE | 2021-10-17 14:55 | CASEMGMT ---
This RN CM back to room and pt states that she has had increased weakness prior to current UTI and states would still like to have short term rehab prior to going home. Pt states would like TCU as first choice then [facility]. Cyndi FISHER updated, voices understanding. SStena GERMAIN CM
--- NOTE | 2021-10-17 15:07 | CASEMGMT ---
NATALIA was informed patient would like to go to [facility]. NATALIA spoke with Anayeli and she will review patient's chart. Gela CAMPBELL
--- NOTE | 2021-10-17 15:34 | CASEMGMT ---
NATALIA spoke with [facility] and they can accept patient in TCU. NATALIA will notify patient. Plan: [facility] Gela CAMPBELL
--- NOTE | 2021-10-17 15:46 | CASEMGMT ---
This RN MAITE to room with VALVERDE form, explanation done-pt voices understanding, and signs VALVERDE form. Original to chart and copy to pt. Pt voices no further questions/concerns/needs. SStaten JESSA CM
[2021-10-17] MEDS: MELATONIN 3 MG TABLET PO (21:07)
[2021-10-18] VITALS (8 sets, daily range): BP systolic 115–121; BP diastolic 66–83; PULSE 63–82; RESP 18; TEMP 36.4–36.6; O2SAT 94–97
[2021-10-18] MEDS: Nystatin Powder 15gm Bottle 1 APPLIC TOPICAL (05:24)
[2021-10-18] MEDS: Metoprolol(XL)Succ 25 MG Tablet PO (10:14)
[2021-10-18] MEDS: Pantoprazole Sodium 20 MG Tablet PO (10:14)
[2021-10-18] MEDS: buPROPion (XL) 300 MG TABLET.XL PO (10:14)
[2021-10-18] MEDS: Sertraline 100 MG Tablet 200 MG PO (10:14)
[2021-10-18] MEDS: Enoxaparin 40 MG/0.4 ML Syringe SC (10:15)
[2021-10-18] MEDS: Ceftriaxone 1 GM/50 ML BAG IV (10:15)
--- NOTE | 2021-10-18 10:41 | PCM.TXEXTCAR ---
Diet 10/16/21 17:16 Diet: Cardiac - Heart Healthy Food consistency:: Regular Liquid Consistency:: Regular/Thin Type of Dietary Supplement:: Ensure Enlive Diet Comments: 120mL strawberry ensure enlive w/ meals Therapies Weight Bearing: Weight bearing as tolerated Extremity Affected:: Bilateral Lower Physical Therapy: Eval and Treat Occupational Therapy: Eval and Treat Problem/Diagnosis (1) Vertigo: Status: Acute (2) UTI (urinary tract infection): Status: Acute (3) Debility: Status: Acute Allergies/Procedures Done in Hospital Allergies No Known Allergies Allergy (Verified 10/16/21 14:38) Type of Care/Length of Stay Estimated LOS: Convalescent Care Less Than 30 days Type of Care Needed: Skilled Rehab Potential: Good Prognosis: Good Additional Orders/Day of Discharge Day of Discharge: 10/18/21 Dietary and Speech Recommendations Dietitian Recommendations/Changes: continue cardiac diet- mechanical soft foods if requested by pt; will add 120mL ensure enlive TID for additional protein if consumed as PO intake appears compromised by dentition. Discharge Plan Admission Admit Date/Time: 10/16/21 16:15 Primary Reason for Your Visit: Vertigo Attending Provider: Leonidas Amador Primary Care Provider: Mauro Hastings Discharge Orders/Prescriptions Prescriptions: Continued sertraline 100 MG tablet 200 mg PO DAILY RF: 0 omeprazole 20 MG capsule 20 mg PO DAILY RF: 0 bupropion HCl 300 mg tablet extended release 24 hr 300 mg PO DAILY RF: 0 melatonin 3 mg Tablet 3 mg PO QHS RF: 0 aripiprazole 5 mg tablet 5 mg PO DAILY RF: 0 calcium carbonate-vitamin D3 600 mg-10 mcg (400 unit) tablet 1 tab PO DAILY RF: 0 metoprolol succinate 25 mg tablet extended release 24 hr 25 mg PO DAILY Qty: 90 RF: 3 Referrals / Follow Up: Mauro Hastings MD [Primary Care Provider] - Within 2 Weeks Disposition Disposition (needs filled in before D/C Order can be placed): Senior Living Facility
--- NOTE | 2021-10-18 11:41 | CASEMGMT ---
Patient is ready for discharge to [facility]. Orders were copied and originals placed in packet. Plan: d/c to [facility] under skilled level of care. Gela CAMPBELL
--- NOTE | 2021-10-18 12:14 | NURSING ---
Report called to nurse Bunn for pt d/c to TCU.
--- NOTE | 2021-10-18 12:29 | DS.PCM_ITS ---
Documented by User: Salvador JIMENEZ 10/18/21 12:33 Providers Date of Admission: 10/16/21 Date of Discharge: 10/18/21 Primary Care Physician: Dr. Mauro Hastings MD Reason For Visit: VERTIGO, DEBILITY Diagnosis Discharge Diagnosis (1) Vertigo: Status: Acute Code(s): R42 - Dizziness and giddiness (2) UTI (urinary tract infection): Status: Acute Code(s): N39.0 - Urinary tract infection, site not specified (3) Debility: Status: Acute Code(s): R53.81 - Other malaise Medications at Discharge Home Medications sertraline 200 mg PO DAILY 10/03/16 omeprazole 20 mg PO DAILY 10/25/16 metoprolol succinate 25 mg tablet,extended release 24 hr 25 mg PO DAILY #90 tab 03/23/21 aripiprazole 5 mg PO DAILY 10/16/21 bupropion HCl 300 mg PO DAILY 10/16/21 calcium carbonate-vitamin D3 1 tab PO DAILY 10/16/21 melatonin 3 mg PO QHS 10/16/21 Hospital Course Summary of Care Provided Minutes Spent on Discharge: 20 Hospital Course: Patient is a 66-year-old female who was admitted to [facility] on 10/16/2021 for evaluation and management of vertigo. Course and management as below. 1) vertigo/stroke rule out Patient reports that vertigo has resolved and patient does not complain of nor did she demonstrate any focal neurological deficits. Brain MRI did not demonstrate any acute stroke. Could be BPPV or orthostatic hypotension. Fluids provided and vertigo seem to have improved. Patient was advised to follow-up with primary care provider for management of her vertigo. 2) debility Patient reports chronic weakness and difficulty completing her ADLs/IADLs at home. PT/OT eval ordered and patient was deemed appropriate for SNF. Patient to discharge to transitional care unit for ongoing skilled therapy and rehab. 3) UTI UA on admission showed yellow cloudy urine with positive nitrites, 500 leukocyte esterase, 10-25 urine WBCs and 4+ bacteria. UC preliminarily shows presumptive E. coli, repeat cultures demonstrate no growth. Patient was given 3 doses of Rocephin while admitted, antibiotics were not provided on discharge due to asymptomatic course. 4) HTN Continue metoprolol. 5) depression Continue bupropion and sertraline. 6) GERD Continue PPI. Patient seen by Salvador Rolle PA-C, under the supervision of Dr. Amador. Physical Exam Narrative Patient is a 66-year-old female comfortably resting in a chair, alert and oriented x3. Patient denies any new symptoms overnight, but reports being anxious about going to the transitional care unit. Support was provided to patient and patient anxiety seemed improved. Does not appear in acute distress. Const alert, oriented x3 and no apparent distress HEENT normocephalic, head/scalp atraumatic and hearing grossly normal bilaterally Eyes PERRL and conjunctivae normal Neck no lymphadenopathy and no JVD Resp normal respiratory effort, no retractions and no use of accessory muscles Cardio regular rate, regular rhythm and no JVD GI normal to inspection, nondistended, normoactive bowel sounds Extremity normal to inspection Skin no rashes or lesions noted Neuro CN's II-XII intact bilaterally Psych affect normal Weight / BMI Weight Weight: 221 lb 14.395 oz Body Mass Index (BMI) 41.9 ABG / Lab / Microbiology Data Result Diagrams: 10/17/21 06:13 10/17/21 06:13 Microbiology: Microbiology 10/18/21 10:55 Nasal Secretion SARS-CoV-2 Antigen (Rapid) - Final 10/17/21 04:37 Urine, Random Urine Culture - Preliminary Culture exhibits no growth. 10/16/21 15:25 Urine Catheter - Catheter Urine Culture - Final Presumptive E. coli Meaningful Use Info Meaningful Use Diagnoses (Choose all that apply): None applicable Discharge Plan Admission Admit Date/Time: 10/16/21 16:15 Primary Reason for Your Visit: Vertigo Attending Provider: Leonidas Amador Primary Care Provider: Mauro Hastings Discharge Orders/Prescriptions Prescriptions: Continued sertraline 100 MG tablet 200 mg PO DAILY RF: 0 omeprazole 20 MG capsule 20 mg PO DAILY RF: 0 bupropion HCl 300 mg tablet extended release 24 hr 300 mg PO DAILY RF: 0 melatonin 3 mg Tablet 3 mg PO QHS RF: 0 aripiprazole 5 mg tablet 5 mg PO DAILY RF: 0 calcium carbonate-vitamin D3 600 mg-10 mcg (400 unit) tablet 1 tab PO DAILY RF: 0 metoprolol succinate 25 mg tablet extended release 24 hr 25 mg PO DAILY Qty: 90 RF: 3 Referrals / Follow Up: Mauro Hastings MD [Primary Care Provider] - Within 2 Weeks Disposition Disposition (needs filled in before D/C Order can be placed): [facility] Facility Documented by User: Dr. Leonidas Amador MD 10/18/21 13:13 Providers Date of Admission: 10/16/21 Reason For Visit: VERTIGO, DEBILITY Medications at Discharge Home Medications sertraline 200 mg PO DAILY 10/03/16 omeprazole 20 mg PO DAILY 10/25/16 metoprolol succinate 25 mg tablet,extended release 24 hr 25 mg PO DAILY #90 tab 03/23/21 aripiprazole 5 mg PO DAILY 10/16/21 bupropion HCl 300 mg PO DAILY 10/16/21 calcium carbonate-vitamin D3 1 tab PO DAILY 10/16/21 melatonin 3 mg PO QHS 10/16/21 Hospital Course Operations None Summary of Care Provided Minutes Spent on Discharge: 45 Hospital Course: This patient was seen in conjunction with Salvador Rolle PA-C. I have independently interviewed and examined the patient and reviewed pertinent historical, laboratory, and other data. Please refer to Salvador Rolle PA-C's note for details of this patient's presentation, findings, and recommendations. I have reviewed Salvador Rolle PA-C's note and concur with documented findings. In brief, patient is a 66-year-old lady brought to the hospital with progressive generalized weakness and acute vertigo. Found to have acute cystitis admitted to a monitored bed for subsequent management Physical Examination: GENERAL: cooperative HEENT: Atraumatic; EYES; Anicteric, Normal Conjunctiva NECK; supple, normal thyroid, RESPIRATORY: Diminished to auscultation CARDIOVASCULAR: Regular S1 S2, GI: soft, normoactive bowel sounds, : No Renal angle tenderness; EXTREMITIES: No edema, no clubbing, MUSCULOSKELETAL: no muscle wasting NEURO: Awake; no lateralizing signs. SKIN: No Rash PSYCH; Flat affect Assessment: 1. Acute vertigo 2. Acute cystitis with E. coli 3. Physical deconditioning 4. Essential tension 5. GERD 6. Depression with anxiety 7. DVT prophylaxis Hospital course: As documented above Total time spent by myself and the advanced practice practitioner evaluating patient, reviewing labs, subsequent management decisions, discussion with patient as well as other providers 45 minutes ( 25 of which was spent by myself) ABG / Lab / Microbiology Data Result Diagrams: 10/17/21 06:13 10/17/21 06:13 Discharge Plan Admission Admit Date/Time: 10/16/21 16:15 Primary Reason for Your Visit: Vertigo Attending Provider: Leonidas Amador Primary Care Provider: Mauro Hastings Discharge Orders/Prescriptions Prescriptions: Continued sertraline 100 MG tablet 200 mg PO DAILY RF: 0 omeprazole 20 MG capsule 20 mg PO DAILY RF: 0 bupropion HCl 300 mg tablet extended release 24 hr 300 mg PO DAILY RF: 0 melatonin 3 mg Tablet 3 mg PO QHS RF: 0 aripiprazole 5 mg tablet 5 mg PO DAILY RF: 0 calcium carbonate-vitamin D3 600 mg-10 mcg (400 unit) tablet 1 tab PO DAILY RF: 0 metoprolol succinate 25 mg tablet extended release 24 hr 25 mg PO DAILY Qty: 90 RF: 3 Referrals / Follow Up: Mauro Hastings MD [Primary Care Provider] - Within 2 Weeks Disposition Disposition (needs filled in before D/C Order can be placed): [facility] Facility Hospital Course Operations None
== END 2021-10-18 10:47 | disposition skilled nursing facility (03) ==
LOC: ED 16:26 → PCU 16:51
PROVIDERS: Admitting Provider Student in an Organized Health Care Education/Training Program; Emergency Provider Emergency Medicine; PCP Family Medicine; Visit Provider Internal Medicine
DX: R42 Dizziness and giddiness (principal); E66.01 Morbid (severe) obesity due to excess calories; Z68.41 Body mass index [BMI] 40.0-44.9, adult; E78.00 Pure hypercholesterolemia, unspecified; R53.81 Other malaise; N30.00 Acute cystitis without hematuria; B96.20 Unspecified Escherichia coli [E. coli] as the cause of diseases classified elsewhere; K21.9 Gastro-esophageal reflux disease without esophagitis; F41.8 Other specified anxiety disorders; R53.1 Weakness; I10 Essential (primary) hypertension; Z87.891 Personal history of nicotine dependence; Z79.899 Other long term (current) drug therapy; R94.31 Abnormal electrocardiogram [ECG] [EKG]; M19.90 Unspecified osteoarthritis, unspecified site
CPT/HCPCS: 36415; 70450; 70551; 71045; 80048; 80053; 81001; 82550; 84484; 85025; 86140; 87086; 87088; 87186; 87426; 93005; 96361; 96365; 96366; 96372; 97162; 97166; 97530; 97535; 97802; 99218; 99285; J7030; J7040; A4216; G0378

== ENCOUNTER 2021-10-18 12:37 | Inpatient (IN) | payer MEDICARE, MEDICAID, SELFPAY ==
[2021-10-18 13:07] VITALS: BP 126/69; PULSE 65; RESP 16; TEMP 35.8; O2SAT 95
[2021-10-18 13:20] VITALS: BMI 41.7
[2021-10-18] MEDS: Cephalexin 500 MG Capsule PO (17:07)
[2021-10-18] MEDS: Menthol/Lanolin/Calamine/Znox 113 GM Tube 1 APPLIC TOPICAL (17:11)
[2021-10-18] MEDS: Nystatin Powder 15gm Bottle 1 APPLIC TOPICAL (17:11)
--- NOTE | 2021-10-18 17:37 | HP.PCM_ITS ---
HPI - General General Date of Admission: 10/18/21 HPI Narrative 10/16/2021 AUGUSTINE PENA, is a 66 Female who presents to [facility] Emergency Department with weakness. 10/16/2021 EKG normal sinus rhythm, inferior infarct, age undetermined, abnormal EKG. Dizziness, weakness. Fell out of bed 4 days prior, unsteady with walking. Worsening dizziness, positive nausea, dizziness worse with turning head. Lives alone, does not feel safe home alone. Look to left makes her dizzy, nauseous. Mild dehydration. UA consistent with urinary tract infection, Urine culture sent, Rocephin 1gm iv x [address] head negative, Diazepam given for vertigo. 10/16/2021 Admit to Hospital. PT/OT, IV fluids, MRI brain for vertigo. Rocephin iv for urinary tract infection. 10/17/2021 Vertigo resolved. MRI brain negative stroke. PT/OT for Alf Facility. Rocephin iv for E. Coli urinary tract infection. 10/18/2021 Admit to TCU with debility, here for rehabilitation, strengthening, prior to discharge home alone. [facility] Medical History Acute recurrent pancreatitis Anemia Chronic pain Colon polyps Depression Essential hypertension Former smoker GERD (gastroesophageal reflux disease) Lung nodules Morbid obesity Multiple thyroid nodules Obesity Osteoarthritis Osteoporosis Pancreatitis Poor dentition Pure hypercholesterolemia Thoracic aortic aneurysm without rupture Home Medications sertraline 200 mg PO DAILY 10/03/16 [History Last Taken 10/16/21] omeprazole 20 mg PO DAILY 10/25/16 [History Last Taken 10/16/21] metoprolol succinate 25 mg tablet,extended release 24 hr 25 mg PO DAILY #90 tab 03/23/21 [Rx Last Taken 10/16/21] aripiprazole 5 mg PO DAILY 10/16/21 [History Last Taken 10/16/21] bupropion HCl 300 mg PO DAILY 10/16/21 [History Last Taken 10/16/21] calcium carbonate-vitamin D3 1 tab PO DAILY 10/16/21 [History Last Taken 10/16/21] melatonin 3 mg PO QHS 10/16/21 [History Last Taken 10/14/21] Allergy/AdvReac Type Severity Reaction Status Date / Time No Known Allergies Allergy Verified 10/16/21 14:38 Family History Mother Colon cancer Father Cancer Lung Sister Breast cancer Brother Cancer Lung Surgical History History of carpal tunnel surgery History of cholecystectomy History of total hysterectomy Social History (Updated 10/18/21 @ 17:[address] Chris Dixon MD) household members: none Smoking Status: Former smoker alcohol intake: never substance use type: does not use caffeine: Yes Type: coffee Number of servings: 2 ROS Constitutional Constitutional: Denies chills, fever(s) or weight gain ENT HEENT: Denies headache(s), nasal congestion or nasal discharge Cardiovascular Cardiovascular: Denies chest pain or palpitations Respiratory/Chest Respiratory/Chest: Denies cough, excessive phlegm production or shortness of breath with exertion Gastrointestinal Gastrointestinal: Denies abdominal pain, nausea or vomiting Genitourinary Genitourinary: Denies dysuria Musculoskeletal Musculoskeletal: Denies joint pain or joint swelling Integumentary Integumentary: Denies rash or wounds Neurologic Neurologic: Denies focal weakness, numbness or tingling Psychiatric Psychiatric: Denies anxiety, auditory hallucinations, depression, homicidal ideation or suicidal ideation Vital Signs Vital Signs Vital Signs: 10/18/21 13:02 10/18/21 13:07 Temperature 96.5 F L Temperature Source Temporal Pulse Rate 65 Pulse Rhythm Regular Pulse Strength Normal (2+) Respiratory Rate 16 Respiratory Effort Normal Non-Labored Respiratory Depth Normal Respiratory Pattern Normal Blood Pressure 126/69 H Blood Pressure Mean 88 Blood Pressure Source Monitor Blood Pressure Position Sitting Blood Pressure Location Left Arm Pulse Ox 95 Oxygen Delivery Method Room Air Room Air Weight Weight: 100.244 kg Body Mass Index (BMI) 41.7 Physical Exam Const alert General Appearance: cooperative HEENT normocephalic Eyes PERRL and EOMs intact bilaterally Neck supple, no JVD and no carotid bruits Resp normal respiratory effort, normal air movement and clear to auscultation bilaterally Cardio regular rate and regular rhythm GI normal to inspection, nondistended, normoactive bowel sounds, non-tender and non-distended Extremity normal capillary refill General Extremity: Negative for edema Skin no rashes or lesions noted General Skin Exam: no breakdown Psych affect normal Appearance: appropriate Assessment & Plan Assessment/Plan (1) Debility: (2) Dizziness: (3) Benign paroxysmal positional vertigo: (4) Orthostatic hypotension: (5) Nausea: (6) Dehydration: (7) Urinary tract infection: (8) Depression: (9) Gastroesophageal reflux disease: (10) Hypertension: PLAN: 66 year old female with below past medical history hospitalized for dizziness secondary to bppv/orthostatic hypotension, stroke ruled out, weakness secondary to urinary tract infection, admitted to TCU with debility, here for rehabilitation, strengthening, prior to discharge home alone. * Debility - PT/OT. * Pain - Tylenol 1000mg q6h prn pain (1-10). * Bowel - Miralax 17gm daily, Senna/colace 1 tablet twice daily, Dulcolax 10mg daily prn. * Adult immunization - Administer prevnar 20, fluzone, covid19 vaccine as appropriate. * DVT prophylaxis - Has-BLED score 1, Hodan Score 5, Rx Xarelto 10mg daily x 7 days. 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 * Calcium deficiency - Calcium D 1 tablet daily. * E. Coli urinary tract infection - Keflex 500mg q12h thru 10/22/2021. * Insomnia - Melatonin 3mg qhs. * Skin irritation - Calmoseptine topical bid. * Hypertension - Metoprolol succinate 25mg daily. * Tinea Corporis - Nystatin powder topical bid. * GERD - Pantoprazole 20mg daily.
[2021-10-18] MEDS: Polyethylene Glycol 3350 17 GM PACKET PO (18:11)
[2021-10-18] MEDS: Senna/Docusate Sodium 1 Tablet PO (18:11)
[2021-10-18] MEDS: MELATONIN 3 MG TABLET PO (20:17)
[2021-10-18] MEDS: Acetaminophen 500 MG Tablet 1000 MG PO (20:18)
[2021-10-19] MEDS: Nystatin Powder 15gm Bottle 1 APPLIC TOPICAL ×2 (04:30→18:03)
[2021-10-19] MEDS: Menthol/Lanolin/Calamine/Znox 113 GM Tube 1 APPLIC TOPICAL ×2 (04:30→18:02)
[2021-10-19] MEDS: Cephalexin 500 MG Capsule PO ×2 (04:43→18:01)
[2021-10-19] MEDS: ARIPiprazole 5 MG Tablet PO (04:43)
[2021-10-19] MEDS: Polyethylene Glycol 3350 17 GM PACKET PO (04:43)
[2021-10-19 04:44] VITALS: BP 127/74; PULSE 60
[2021-10-19] MEDS: Senna/Docusate Sodium 1 Tablet PO ×2 (04:44→18:01)
[2021-10-19] MEDS: Pantoprazole Sodium 20 MG Tablet PO (04:44)
[2021-10-19] MEDS: Calcium Carb/Vitamin D 1 TABLET Tablet PO (04:44)
[2021-10-19] MEDS: Sertraline 100 MG Tablet 200 MG PO (04:44)
[2021-10-19] MEDS: Metoprolol(XL)Succ 25 MG Tablet PO (04:44)
[2021-10-19] MEDS: buPROPion (XL) 300 MG TABLET.XL PO (04:44)
[2021-10-19 05:53] LABS: Absolute Lymphocyte Count 1.47 X10^3/uL (0.83-4.51); Absolute Neutrophil Count 2.9 X10^3/uL (2.0-7.7); Basophil# 0.02 X10^3/uL; Basophil% 0.4 % (0-1); Eosinophil# 0.22 X10^3/uL; Eosinophils% 4.4 % (0-5); Hematocrit 33.6 % (37-47); Hemoglobin 11.2 g/dL (12.0-15.0); Lymphocyte # 1.47 X10^3/ul (0.83-4.51); Lymphocyte % 29.2 % (19-41); Mean Corp Hgb Conc 33.3 g/dL (32-36); Mean Corpuscular Hgb 28.9 pg (27.0-32.0); Mean Corpuscular Volume 86.6 fL (81-99); Mean Platelet Vol. 9.4 fl (6.2-12.0); Monocyte# 0.45 X10^3/uL; Monocyte% 8.9 % (0-10); NRBC Flagged by Analyzer 0 % (0-5); Neutrophil # 2.85 X10^3/uL (2.7-7.7); Neutrophil % 56.7 % (47-70); Platelet Count 207 K/mm3 (150-450); RBC Distribution Width CV 13.2 % (11.6-14.6); RBC Distribution Width SD 41.3 fl (35.1-43.9); Red Blood Count 3.88 M/mm3 (4.2-5.4)
[2021-10-19 06:24] LABS: Anion Gap 4 (5-15); BUN 17 mg/dL (7-18); BUN/Creat Ratio 17.3 RATIO (10-20); Calcium,Total 8.8 mg/dL (8.5-10.1); Chloride 108 mmol/L (98-107); Creatinine, Serum 0.98 mg/dL (0.55-1.02); EST Glomerular Filtration Rate 60 mL/min (>60); Est Glom Filt Rate - Afr Amer 73 mL/min (>60); Estimated Creatinine Clearance 42.61 ml/min; Glucose 104 mg/dL (74-106); Potassium 3.8 mmol/L (3.5-5.1); Sodium Level 139 mmol/L (136-145)
[2021-10-19] MEDS: Tuberculin,Purif.prot.deriv. 50 TU/ML Vial 0.1 ML ID (12:16)
[2021-10-19 16:18] VITALS: BP 138/77; PULSE 60; RESP 18; TEMP 36.9; O2SAT 97
--- NOTE | 2021-10-19 16:21 | CASEMGMT ---
Social Work Completed chart review and noted dx of depression and anxiety; being managed by several medications. Met with patient to complete initial assessment. Introduced self and role. Explained Medicare benefit and noted pt has [facility] secondary insurance. Explained TCU is not in network with Medicaid, thus, pt would be discharged by 11/07, on day 21 that starts copays days, or SW to coordinate transfer to in network SNF for continued care. Pt expressed understanding. Explored current mood. Pt acknowledged she has chronic depression and anxiety, however, the last year or two, it has gotten worse, mostly due to COVID isolation. Pt reports she used to attend [employer] and had built a good mooretown of friends, but since she has not attended for 6 months or more, the [employer] no longer considers her a member (a policy for all of their members). Pt expressed feeling the loss of that support. SW offered to contact [employer] to reconnect with pt. Pt denied. Offered for hospital grinder chipper to visit. Pt agreed. Referral made. Explored pt's support system further. Pt and SW discussed her strained relationship with her five children. Thus, wishing not to have dtr contacted, or any family member/friend, for updates or involvement in DC plans. SW removed dtr from facesheet. However, after discussion, pt agreed per SW suggestion, to not make the decision for dtr on not wanting to be involved in pt's care, and agreed on contacting dtr to notify her of pt's admission and inquire if she would like updated. Pt did state she does have frequent conversations with her sister out of state, but denied adding her to contact list. Pt explained [facility]. She used to have a therapist that she grew to trust and connect with, but recently she changed jobs and had been reassigned to a new CM. Pt states she sees psychiatrist Dr. Ranjeet Chicas. Inquired if medications have been effective for managing depression/anxiety. Pt stated they have not been since pandemic and agreeable to have them adjusted. Explained since pt has a psychiatrist, Dr. Dixon typically does not adjust meds. Suggested to discuss changes to meds at next appt. Pt agreed. Pt reports since COVID, her sessions have been via phone and prefers to be in person. Suggested requesting in person meetings for future appts. Discussed continuity of care and having the psychiatrist/counselor meeting her where she's at in regards to topics discussed in sessions. Offered to be a liaison to the [facility] to advocate for those changes. Pt agreeable. Throughout conversation, provided supportive listening, verbal and emotional support, validated feelings, and acknowledged pt's strengths. Reflected on past experiences and coping skills. Validated resiliency to overcome past hardships and have forward thinking. Explored suicidal ideations. Pt admitted to having past thoughts of being better off , but no plan or intent to harm self or others. Denies any current thoughts, plans, intent and denies any past attempts or planning. Pt was tearful throughout conversation. Demeanor and affect were appropriate for topic of discussion; pt maintained good eye contact. SW commended for willingness to discuss and open up to this worker. Offered ongoing support throughout stay, but stated if pt does not want to discuss further, SW will not revisit to eliminate any retraumatization of topics. Pt expressed understanding and appreciative of time and support from this worker. --- [facility]. Pt has appt for 10/[address] Ranjeet Chicas. SW canceled and rescheduled for 11/13 as pt is likely to remain until day 21. Added to appts in DC plan. Spoke with nurse for Dr. Chicas whom explained pt has not been seen by him yet. Her first appt was 10/25, thus, if Dr. Dixon feels any medication changes are appropriate, he can do so. Communicated to Dr. Dixon. Medication changes were made. Nurse also explained psychiatry sees pt about every 2 months and can refer to counselor at that first visit for pt. Pt does have new CM Sarah Loomis, which her duties are truly case management. Left message for dtr requesting return phone call to this worker. SW to continue to follow. Kerri Suarez, BERYL AYALAW
[2021-10-19] MEDS: Rivaroxaban 10 MG Tablet PO (18:01)
[2021-10-19] MEDS: MELATONIN 3 MG TABLET PO (19:43)
[2021-10-19 21:13] VITALS: PULSE 61; RESP 16
[2021-10-20] MEDS: Cephalexin 500 MG Capsule PO ×2 (05:11→18:16)
[2021-10-20] MEDS: Senna/Docusate Sodium 1 Tablet PO ×2 (05:11→18:16)
[2021-10-20] MEDS: Calcium Carb/Vitamin D 1 TABLET Tablet PO (05:11)
[2021-10-20] MEDS: Pantoprazole Sodium 20 MG Tablet PO (05:11)
[2021-10-20] MEDS: Polyethylene Glycol 3350 17 GM PACKET PO (05:11)
[2021-10-20] MEDS: ARIPiprazole 5 MG Tablet PO (05:12)
[2021-10-20] MEDS: Menthol/Lanolin/Calamine/Znox 113 GM Tube 1 APPLIC TOPICAL ×2 (05:12→18:18)
[2021-10-20] MEDS: Sertraline 100 MG Tablet PO (05:12)
[2021-10-20] MEDS: Nystatin Powder 15gm Bottle 1 APPLIC TOPICAL ×2 (05:13→18:17)
[2021-10-20] MEDS: buPROPion (XL) 150 MG TABLET.XL PO ×2 (05:14→05:17)
[2021-10-20] MEDS: Citalopram 10 MG Tablet PO (05:17)
[2021-10-20 05:20] VITALS: BP 126/64; PULSE 63
[2021-10-20] MEDS: Metoprolol(XL)Succ 25 MG Tablet PO (05:20)
[2021-10-20] MEDS: Acetaminophen 500 MG Tablet 1000 MG PO ×2 (10:18→20:38)
[2021-10-20 14:01] VITALS: BP 118/64; PULSE 57; RESP 16; TEMP 36.9; O2SAT 93
--- NOTE | 2021-10-20 14:40 | PCM.PN.RX ---
Progress Note - Pharmacy Subjective: [] TCU Admission Objective: Allergies No Known Allergies Allergy (Verified 10/16/21 14:38) Current Medications Generic Name Dose Route Start Last Admin Trade Name Sari PRN Reason Stop Dose Admin Acetaminophen 1,000 mg 10/18/21 17:53 10/20/21 10:18 Acetaminophen 500 Mg Tablet PO 1,000 mg Q6H PRN PRN Administration Pain Score 1-10 Aripiprazole 5 mg 10/19/21 06:00 10/20/21 05:12 Aripiprazole 5 Mg Tablet PO 5 mg DAILY SHARAN Administration Bisacodyl 10 mg 10/18/21 17:53 Bisacodyl 5 Mg Tablet PO DAILY PRN Constipation Bupropion HCl 150 mg 10/20/21 06:00 10/20/21 05:17 Bupropion (Xl) 150 Mg Tablet.Xl PO 10/27/21 06:01 150 mg DAILY SHARAN Administration Calamine/Phenol 1 applic 10/18/21 18:00 10/20/21 05:12 Menthol/Lanolin/Calamine/Znox 113 Gm Tube TOPICAL 1 applic BID SHARAN Administration Protocol Calcium/Vitamin D 1 tablet 10/19/21 06:00 10/20/21 05:11 Calcium Carb/Vitamin D 1 Tablet Tablet PO 1 tablet DAILY SHARAN Administration Cephalexin 500 mg 10/18/21 18:00 10/20/21 05:11 Cephalexin 500 Mg Capsule PO 10/22/21 18:01 500 mg Q12 SHARAN Administration Citalopram Hydrobromide 10 mg 10/20/21 06:00 10/20/21 05:17 Citalopram 10 Mg Tablet PO 10/27/21 06:01 10 mg DAILY SHARAN Administration Citalopram Hydrobromide 20 mg 10/28/21 06:00 Citalopram 20 Mg Tablet PO DAILY SHARAN Melatonin 3 mg 10/18/21 22:00 10/19/21 19:43 Melatonin 3 Mg Tablet PO 3 mg QHS SHARAN Administration Metoprolol Succinate 25 mg 10/19/21 06:00 10/20/21 05:20 Metoprolol(Xl)Succ 25 Mg Tablet PO 25 mg DAILY SHARAN Administration Nystatin 1 applic 10/18/21 18:00 10/20/21 05:13 Nystatin Powder 15gm Bottle TOPICAL 1 applic BID SHARAN Administration Protocol Pantoprazole Sodium 20 mg 10/19/21 06:00 10/20/21 05:11 Pantoprazole Sodium 20 Mg Tablet PO 20 mg DAILY SHARAN Administration Polyethylene Glycol 17 gm 10/18/21 18:00 10/20/21 05:11 Polyethylene Glycol 3350 17 Gm Packet PO 17 gm DAILY SHARAN Administration Rivaroxaban 10 mg 10/19/21 17:00 10/19/21 18:01 Rivaroxaban 10 Mg Tablet PO 10/26/21 17:01 10 mg DINNER SHARAN Administration Senna/Docusate Sodium 1 tablet 10/18/21 18:00 10/20/21 05:11 Senna/Docusate Sodium 1 Tablet PO 1 tablet BID SHARAN Administration Sertraline HCl 100 mg 10/20/21 06:00 10/20/21 05:12 Sertraline 100 Mg Tablet PO 10/27/21 06:01 100 mg DAILY SHARAN Administration Sertraline HCl 50 mg 10/28/21 06:00 Sertraline 50 Mg Tablet PO 11/04/21 06:01 DAILY SHARAN Tuberculin PPD 0.1 ml 10/26/21 10:00 Tuberculin,Purif.Prot.Deriv. 50 Tu/Ml Vial ID 10/26/21 10:01 X1 ONE Problem List (Last Reviewed 10/18/21 @ 17:[address] Chris Dixon MD) Hypertension (Chronic) Gastroesophageal reflux disease (Acute) Depression (Acute) Urinary tract infection (Acute) Dehydration (Acute) Nausea (Acute) Orthostatic hypotension (Acute) Benign paroxysmal positional vertigo (Acute) Dizziness (Acute) Debility (Acute) Vital Signs Temp Pulse Resp BP Pulse Ox 98.4 F 57 L 16 118/64 93 10/20/21 14:01 10/20/21 14:01 10/20/21 14:01 10/20/21 14:01 10/20/21 14:01 Oxygen Delivery Method Room Air Weight: 100.244 kg Body Mass Index (BMI) 41.7 Sodium 139 mmol/L (136-145) 10/19/21 05:30 Potassium 3.8 mmol/L (3.5-5.1) 10/19/21 05:30 Chloride 108 mmol/L (98-107) H 10/19/21 05:30 Carbon Dioxide 27.0 mmol/L (21.0-32.0) 10/19/21 05:30 Anion Gap 4 (5-15) L 10/19/21 05:30 BUN 17 mg/dL (7-18) 10/19/21 05:30 Creatinine 0.98 mg/dL (0.55-1.02) 10/19/21 05:30 Est GFR (MDRD) Af Amer 73 mL/min (>60) 10/19/21 05:30 Est GFR (MDRD) Non-Af 60 mL/min (>60) 10/19/21 05:30 BUN/Creatinine Ratio 17.3 RATIO (10-20) 10/19/21 05:30 Glucose 104 mg/dL (74-106) 10/19/21 05:30 Assessment/Plan: 1) Pain: Acetaminophen 1000mg po q6h prn for pain 1-10. Please continue to monitor prn usage and for signs/symptoms of increased pain. --PRN note: There have been 2 administrations to date 2) GERD: Pantoprazole 20mg po daily. Please continue to monitor for signs/symptoms of GERD 3) Hypertension: Metoprolol Succinate 25mg po daily. Pt's average BP is 127/69.6. Please continue to monitor. 4) UTI: Cephalexin 500mg po q12h thru 10/22/2021. Pt's CrCl is 42.61ml/min. FDA recommendations for pt's with a CrCl of 30-59ml/min is a max dose of 1gm per day. Dose is appropriate for pt's renal function. Psychotropic Medications: Sertraline 200mg po daily for depression. Medication is currently being dose reduced. Please continue to monitor for signs/symptoms of depression Bupropion XL 300mg po daily for depression. Medication is currently being dose reduced. Please continue to monitor for signs/symptoms of depression Abilify 5mg po daily for depression. Pt is currently having other depression related medications reduced. GDR not recommended at this time. Please continue to monitor for signs/symptoms of depression Citalopram 10mg po daily for depression. Medication is a new start. Pt is transitioning from Sertraline and Bupropion to Citalopram for depression. Please continue to monitor for signs/symptoms of depression Melatonin 3mg po qhs for insomnia. Medication due for GDR 01/2022. Pt is on lowest possible dose available on formulary. Unnecessary Medications: Bowel Regimen: Bisacodyl 10mg po daily prn for constipation, Miralax 17gm po daily, Senna/Docusate 1 tablet po bid. Please continue to monitor prn usage and for signs/symptoms of constipation/diarrhea Date of Note:: 10/20/21
[2021-10-20 14:43] VITALS: PULSE 68; RESP 18; O2SAT 94
[2021-10-20] MEDS: Rivaroxaban 10 MG Tablet PO (18:16)
[2021-10-20] MEDS: MELATONIN 3 MG TABLET PO (20:38)
[2021-10-21] MEDS: Calcium Carb/Vitamin D 1 TABLET Tablet PO (05:53)
[2021-10-21] MEDS: Polyethylene Glycol 3350 17 GM PACKET PO (05:53)
[2021-10-21] MEDS: Sertraline 100 MG Tablet PO (05:54)
[2021-10-21] MEDS: ARIPiprazole 5 MG Tablet PO (05:54)
[2021-10-21] MEDS: Senna/Docusate Sodium 1 Tablet PO ×2 (05:54→17:55)
[2021-10-21] MEDS: Cephalexin 500 MG Capsule PO ×2 (05:54→17:55)
[2021-10-21] MEDS: Citalopram 10 MG Tablet PO (05:54)
[2021-10-21] MEDS: Pantoprazole Sodium 20 MG Tablet PO (05:54)
[2021-10-21 05:56] VITALS: BP 116/55; PULSE 61
[2021-10-21] MEDS: Metoprolol(XL)Succ 25 MG Tablet PO (05:56)
[2021-10-21] MEDS: buPROPion (XL) 150 MG TABLET.XL PO (05:58)
[2021-10-21] MEDS: Nystatin Powder 15gm Bottle 1 APPLIC TOPICAL ×2 (06:03→17:56)
[2021-10-21] MEDS: Menthol/Lanolin/Calamine/Znox 113 GM Tube 1 APPLIC TOPICAL ×2 (06:04→18:00)
[2021-10-21 13:52] VITALS: BP 120/69; PULSE 60; RESP 18; TEMP 36.4; O2SAT 95
[2021-10-21] MEDS: Rivaroxaban 10 MG Tablet PO (17:55)
--- NOTE | 2021-10-21 18:01 | NURSING ---
TB test site with ring of bruising surrounding it. Verified with JESSA Julien.
[2021-10-21] MEDS: MELATONIN 3 MG TABLET PO (19:59)
[2021-10-21 21:45] VITALS: PULSE 63; RESP 16; O2SAT 95
[2021-10-22] MEDS: Polyethylene Glycol 3350 17 GM PACKET PO (05:13)
[2021-10-22] MEDS: Citalopram 10 MG Tablet PO (05:14)
[2021-10-22] MEDS: Cephalexin 500 MG Capsule PO ×2 (05:14→16:54)
[2021-10-22] MEDS: buPROPion (XL) 150 MG TABLET.XL PO (05:14)
[2021-10-22] MEDS: Pantoprazole Sodium 20 MG Tablet PO (05:14)
[2021-10-22] MEDS: ARIPiprazole 5 MG Tablet PO (05:14)
[2021-10-22] MEDS: Calcium Carb/Vitamin D 1 TABLET Tablet PO (05:14)
[2021-10-22] MEDS: Senna/Docusate Sodium 1 Tablet PO (05:14)
[2021-10-22] MEDS: Sertraline 100 MG Tablet PO (05:14)
[2021-10-22 05:15] VITALS: BP 126/63; PULSE 64
[2021-10-22] MEDS: Metoprolol(XL)Succ 25 MG Tablet PO (05:15)
[2021-10-22] MEDS: Nystatin Powder 15gm Bottle 1 APPLIC TOPICAL ×2 (05:15→16:55)
[2021-10-22] MEDS: Menthol/Lanolin/Calamine/Znox 113 GM Tube 1 APPLIC TOPICAL ×2 (05:15→16:56)
[2021-10-22 08:44] VITALS: PULSE 67; RESP 18; O2SAT 96
[2021-10-22 15:39] VITALS: BP 121/66; PULSE 60; RESP 18; TEMP 36.6; O2SAT 95
[2021-10-22] MEDS: Rivaroxaban 10 MG Tablet PO (16:54)
[2021-10-22] MEDS: MELATONIN 3 MG TABLET PO (21:40)
[2021-10-22] MEDS: Acetaminophen 500 MG Tablet 1000 MG PO (21:44)
[2021-10-23] MEDS: Citalopram 10 MG Tablet PO (05:05)
[2021-10-23] MEDS: Menthol/Lanolin/Calamine/Znox 113 GM Tube 1 APPLIC TOPICAL ×2 (05:05→17:07)
[2021-10-23] MEDS: Calcium Carb/Vitamin D 1 TABLET Tablet PO (05:05)
[2021-10-23] MEDS: ARIPiprazole 5 MG Tablet PO (05:05)
[2021-10-23 05:06] VITALS: BP 127/65; PULSE 60
[2021-10-23] MEDS: Pantoprazole Sodium 20 MG Tablet PO (05:06)
[2021-10-23] MEDS: Polyethylene Glycol 3350 17 GM PACKET PO (05:06)
[2021-10-23] MEDS: Sertraline 100 MG Tablet PO (05:06)
[2021-10-23] MEDS: Senna/Docusate Sodium 1 Tablet PO ×2 (05:06→17:07)
[2021-10-23] MEDS: Nystatin Powder 15gm Bottle 1 APPLIC TOPICAL ×2 (05:06→17:07)
[2021-10-23] MEDS: buPROPion (XL) 150 MG TABLET.XL PO (05:06)
[2021-10-23] MEDS: Metoprolol(XL)Succ 25 MG Tablet PO (05:06)
[2021-10-23 15:03] VITALS: BP 122/67; PULSE 58; RESP 16; TEMP 36.4; O2SAT 92
[2021-10-23] MEDS: Rivaroxaban 10 MG Tablet PO (17:07)
[2021-10-23] MEDS: Acetaminophen 500 MG Tablet 1000 MG PO (20:36)
[2021-10-23] MEDS: MELATONIN 3 MG TABLET PO (20:36)
[2021-10-23 20:38] VITALS: O2SAT 94
[2021-10-24] MEDS: Calcium Carb/Vitamin D 1 TABLET Tablet PO (04:57)
[2021-10-24] MEDS: ARIPiprazole 5 MG Tablet PO (04:57)
[2021-10-24] MEDS: Citalopram 10 MG Tablet PO (04:57)
[2021-10-24] MEDS: Sertraline 100 MG Tablet PO (04:58)
[2021-10-24] MEDS: Senna/Docusate Sodium 1 Tablet PO ×2 (04:58→16:35)
[2021-10-24] MEDS: buPROPion (XL) 150 MG TABLET.XL PO (04:58)
[2021-10-24] MEDS: Pantoprazole Sodium 20 MG Tablet PO (04:58)
[2021-10-24 04:59] VITALS: BP 103/52; PULSE 58
[2021-10-24] MEDS: Polyethylene Glycol 3350 17 GM PACKET PO (04:59)
[2021-10-24] MEDS: Nystatin Powder 15gm Bottle 1 APPLIC TOPICAL ×2 (05:03→16:37)
[2021-10-24] MEDS: Acetaminophen 500 MG Tablet 1000 MG PO ×2 (10:06→16:44)
[2021-10-24 15:18] VITALS: BP 133/86; PULSE 67; RESP 16; TEMP 36.3; O2SAT 96
[2021-10-24] MEDS: Rivaroxaban 10 MG Tablet PO (16:35)
[2021-10-24] MEDS: Menthol/Lanolin/Calamine/Znox 113 GM Tube 1 APPLIC TOPICAL (16:37)
[2021-10-24] MEDS: MELATONIN 3 MG TABLET PO (20:01)
[2021-10-25] MEDS: Calcium Carb/Vitamin D 1 TABLET Tablet PO (06:07)
[2021-10-25] MEDS: Acetaminophen 500 MG Tablet 1000 MG PO ×2 (06:07→17:21)
[2021-10-25] MEDS: Polyethylene Glycol 3350 17 GM PACKET PO (06:07)
[2021-10-25 06:08] VITALS: BP 127/57; PULSE 74
[2021-10-25] MEDS: Sertraline 100 MG Tablet PO (06:08)
[2021-10-25] MEDS: ARIPiprazole 5 MG Tablet PO (06:08)
[2021-10-25] MEDS: Senna/Docusate Sodium 1 Tablet PO ×2 (06:08→17:16)
[2021-10-25] MEDS: Metoprolol(XL)Succ 25 MG Tablet PO (06:08)
[2021-10-25] MEDS: Pantoprazole Sodium 20 MG Tablet PO (06:08)
[2021-10-25] MEDS: Citalopram 10 MG Tablet PO (06:08)
[2021-10-25] MEDS: buPROPion (XL) 150 MG TABLET.XL PO (06:08)
--- NOTE | 2021-10-25 06:22 | NURSING ---
Pt. c/o feeling stuffy, runny nose and headache. Rapid covid test sent to lab, ordered for this date. Written communication left for Dr. Dixon regarding patient new symptoms. Enhanced isolation precautions in place. Afebrile
--- NOTE | 2021-10-25 09:06 | CASEMGMT ---
Social Work IDT met with patient for care plan meeting. Discussed patient's progress in PT/OT and nursing. Pt progressing well. Explained Medicare benefit. Pt has [employer] secondary thus will need to DC by day 21 which is 11/07 either home or another SNF. Pt progressing well and IDT agreeable pt will be safe to return home alone on 11/07. SW to order skilled HHC and any DME needs. Reiterated SW is available for ongoing support during stay. Pt expressed understanding. Pt inquired about contacting her dtr. SW did leave a message but have not received a return phone call. Offer to call again, but does not want to overstep. Pt agrees and stated the number should not have changed and to not call again. SW to continue to follow for DC plans and support. BERYL GongoraW
[2021-10-25 13:30] VITALS: BP 124/69; PULSE 63; RESP 18; TEMP 36.4; O2SAT 98
[2021-10-25] MEDS: Nystatin Powder 15gm Bottle 1 APPLIC TOPICAL (17:15)
[2021-10-25] MEDS: Rivaroxaban 10 MG Tablet PO (17:16)
[2021-10-25] MEDS: Menthol/Lanolin/Calamine/Znox 113 GM Tube 1 APPLIC TOPICAL (17:18)
[2021-10-25 20:00] VITALS: PULSE 59; RESP 18; O2SAT 98
[2021-10-25] MEDS: MELATONIN 3 MG TABLET PO (20:16)
[2021-10-26 05:40] LABS: Absolute Lymphocyte Count 1.04 X10^3/uL (0.83-4.51); Absolute Neutrophil Count 3.2 X10^3/uL (2.0-7.7); Basophil# 0.02 X10^3/uL; Basophil% 0.4 % (0-1); Eosinophil# 0.26 X10^3/uL; Eosinophils% 5.2 % (0-5); Hematocrit 34.3 % (37-47); Hemoglobin 11.6 g/dL (12.0-15.0); Lymphocyte # 1.04 X10^3/ul (0.83-4.51); Lymphocyte % 20.9 % (19-41); Mean Corp Hgb Conc 33.8 g/dL (32-36); Mean Corpuscular Hgb 28.9 pg (27.0-32.0); Mean Corpuscular Volume 85.3 fL (81-99); Mean Platelet Vol. 9.3 fl (6.2-12.0); Monocyte# 0.41 X10^3/uL; Monocyte% 8.2 % (0-10); NRBC Flagged by Analyzer 0 % (0-5); Neutrophil # 3.21 X10^3/uL (2.7-7.7); Neutrophil % 64.7 % (47-70); Platelet Count 182 K/mm3 (150-450); RBC Distribution Width CV 13.2 % (11.6-14.6); RBC Distribution Width SD 41.1 fl (35.1-43.9); Red Blood Count 4.02 M/mm3 (4.2-5.4)
[2021-10-26 05:56] LABS: Anion Gap 3 (5-15); BUN 16 mg/dL (7-18); BUN/Creat Ratio 20.5 RATIO (10-20); Calcium,Total 8.9 mg/dL (8.5-10.1); Chloride 106 mmol/L (98-107); Creatinine, Serum 0.78 mg/dL (0.55-1.02); EST Glomerular Filtration Rate 79 mL/min (>60); Est Glom Filt Rate - Afr Amer 95 mL/min (>60); Estimated Creatinine Clearance 41.76 ml/min; Glucose 84 mg/dL (74-106); Potassium 4.1 mmol/L (3.5-5.1); Sodium Level 138 mmol/L (136-145)
[2021-10-26] MEDS: Nystatin Powder 15gm Bottle 1 APPLIC TOPICAL ×2 (06:05→17:02)
[2021-10-26] MEDS: buPROPion (XL) 150 MG TABLET.XL PO (06:06)
[2021-10-26] MEDS: Menthol/Lanolin/Calamine/Znox 113 GM Tube 1 APPLIC TOPICAL ×2 (06:06→17:02)
[2021-10-26] MEDS: Senna/Docusate Sodium 1 Tablet PO ×2 (06:06→17:01)
[2021-10-26 06:07] VITALS: BP 120/62; PULSE 63
[2021-10-26] MEDS: Citalopram 10 MG Tablet PO (06:07)
[2021-10-26] MEDS: Polyethylene Glycol 3350 17 GM PACKET PO (06:07)
[2021-10-26] MEDS: Sertraline 100 MG Tablet PO (06:07)
[2021-10-26] MEDS: ARIPiprazole 5 MG Tablet PO (06:07)
[2021-10-26] MEDS: Calcium Carb/Vitamin D 1 TABLET Tablet PO (06:07)
[2021-10-26] MEDS: Metoprolol(XL)Succ 25 MG Tablet PO (06:07)
[2021-10-26] MEDS: Pantoprazole Sodium 20 MG Tablet PO (06:07)
[2021-10-26 06:46] LABS: Bedside Glucose 100 mg/dL (74-106)
[2021-10-26] MEDS: Acetaminophen 500 MG Tablet 1000 MG PO ×2 (09:27→22:45)
[2021-10-26] MEDS: Tuberculin,Purif.prot.deriv. 50 TU/ML Vial 0.1 ML ID (10:50)
[2021-10-26 15:40] VITALS: BP 129/71; PULSE 62; RESP 16; TEMP 36; O2SAT 95
--- NOTE | 2021-10-26 15:40 | CASEMGMT ---
Social Work Met with patient to discuss DC plans. Pt confirmed she will be ready to DC on 11/07 on the day. Provided skilled HHC list to decide on HHC agency. SW to continue to follow for DC plans. BERYL GongoraW
[2021-10-26] MEDS: Rivaroxaban 10 MG Tablet PO (17:01)
[2021-10-26] MEDS: MELATONIN 3 MG TABLET PO (22:45)
[2021-10-27 04:57] VITALS: BP 135/59; PULSE 66
[2021-10-27] MEDS: buPROPion (XL) 150 MG TABLET.XL PO (04:58)
[2021-10-27] MEDS: ARIPiprazole 5 MG Tablet PO (04:58)
[2021-10-27 04:59] VITALS: PULSE 66
[2021-10-27] MEDS: Senna/Docusate Sodium 1 Tablet PO ×2 (04:59→16:18)
[2021-10-27] MEDS: Pantoprazole Sodium 20 MG Tablet PO (04:59)
[2021-10-27] MEDS: Calcium Carb/Vitamin D 1 TABLET Tablet PO (04:59)
[2021-10-27] MEDS: Sertraline 100 MG Tablet PO (04:59)
[2021-10-27] MEDS: Citalopram 10 MG Tablet PO (04:59)
[2021-10-27] MEDS: Metoprolol(XL)Succ 25 MG Tablet PO (04:59)
[2021-10-27] MEDS: Nystatin Powder 15gm Bottle 1 APPLIC TOPICAL ×2 (04:59→16:18)
[2021-10-27] MEDS: Menthol/Lanolin/Calamine/Znox 113 GM Tube 1 APPLIC TOPICAL ×2 (05:00→16:18)
[2021-10-27 16:00] VITALS: BP 132/66; PULSE 63; RESP 16; TEMP 36.7; O2SAT 92
[2021-10-27] MEDS: Acetaminophen 500 MG Tablet 1000 MG PO (21:26)
[2021-10-27] MEDS: MELATONIN 3 MG TABLET PO (21:26)
[2021-10-27 21:30] VITALS: O2SAT 96
[2021-10-28 05:46] VITALS: BP 135/75; PULSE 60
[2021-10-28] MEDS: Pantoprazole Sodium 20 MG Tablet PO (05:46)
[2021-10-28] MEDS: ARIPiprazole 5 MG Tablet PO (05:46)
[2021-10-28] MEDS: Senna/Docusate Sodium 1 Tablet PO ×2 (05:46→16:37)
[2021-10-28] MEDS: Sertraline 50 MG Tablet PO (05:46)
[2021-10-28] MEDS: Metoprolol(XL)Succ 25 MG Tablet PO (05:46)
[2021-10-28] MEDS: Citalopram 20 MG Tablet PO (05:46)
[2021-10-28] MEDS: Calcium Carb/Vitamin D 1 TABLET Tablet PO (05:47)
[2021-10-28] MEDS: Nystatin Powder 15gm Bottle 1 APPLIC TOPICAL ×2 (05:49→16:38)
[2021-10-28] MEDS: Menthol/Lanolin/Calamine/Znox 113 GM Tube 1 APPLIC TOPICAL ×2 (05:50→16:38)
[2021-10-28] MEDS: Acetaminophen 500 MG Tablet 1000 MG PO (15:15)
[2021-10-28 15:48] VITALS: BP 119/69; PULSE 87; RESP 17; TEMP 36.7; O2SAT 95
[2021-10-28] MEDS: MELATONIN 3 MG TABLET PO (20:11)
[2021-10-29] MEDS: Pantoprazole Sodium 20 MG Tablet PO (05:08)
[2021-10-29] MEDS: ARIPiprazole 5 MG Tablet PO (05:08)
[2021-10-29] MEDS: Citalopram 20 MG Tablet PO (05:08)
[2021-10-29] MEDS: Sertraline 50 MG Tablet PO (05:08)
[2021-10-29 05:09] VITALS: BP 135/73; PULSE 63
[2021-10-29] MEDS: Calcium Carb/Vitamin D 1 TABLET Tablet PO (05:09)
[2021-10-29] MEDS: Metoprolol(XL)Succ 25 MG Tablet PO (05:09)
[2021-10-29] MEDS: Senna/Docusate Sodium 1 Tablet PO ×2 (05:09→16:30)
[2021-10-29] MEDS: Nystatin Powder 15gm Bottle 1 APPLIC TOPICAL ×2 (05:10→16:30)
[2021-10-29] MEDS: Menthol/Lanolin/Calamine/Znox 113 GM Tube 1 APPLIC TOPICAL ×2 (05:12→16:30)
[2021-10-29] MEDS: Acetaminophen 500 MG Tablet 1000 MG PO ×2 (10:13→20:18)
[2021-10-29 15:48] VITALS: BP 127/64; PULSE 61; RESP 19; TEMP 36.1; O2SAT 97
[2021-10-29] MEDS: MELATONIN 3 MG TABLET PO (20:18)
[2021-10-29 20:30] VITALS: PULSE 61; RESP 14; O2SAT 98
[2021-10-30] MEDS: ARIPiprazole 5 MG Tablet PO (05:04)
[2021-10-30] MEDS: Pantoprazole Sodium 20 MG Tablet PO (05:04)
[2021-10-30] MEDS: Senna/Docusate Sodium 1 Tablet PO ×2 (05:04→17:22)
[2021-10-30] MEDS: Nystatin Powder 15gm Bottle 1 APPLIC TOPICAL ×2 (05:04→17:24)
[2021-10-30] MEDS: Calcium Carb/Vitamin D 1 TABLET Tablet PO (05:04)
[2021-10-30] MEDS: Sertraline 50 MG Tablet PO (05:04)
[2021-10-30] MEDS: Citalopram 20 MG Tablet PO (05:04)
[2021-10-30 05:05] VITALS: BP 123/69; PULSE 60
[2021-10-30] MEDS: Metoprolol(XL)Succ 25 MG Tablet PO (05:05)
[2021-10-30] MEDS: Menthol/Lanolin/Calamine/Znox 113 GM Tube 1 APPLIC TOPICAL ×2 (05:06→17:25)
[2021-10-30] MEDS: Acetaminophen 500 MG Tablet 1000 MG PO ×2 (10:51→21:45)
[2021-10-30 14:42] VITALS: BP 128/75; PULSE 65; RESP 16; TEMP 36.2; O2SAT 95
[2021-10-30] MEDS: MELATONIN 3 MG TABLET PO (21:45)
[2021-10-31 05:55] VITALS: BP 130/73; PULSE 57
[2021-10-31] MEDS: Citalopram 20 MG Tablet PO (05:55)
[2021-10-31] MEDS: Metoprolol(XL)Succ 25 MG Tablet PO (05:55)
[2021-10-31] MEDS: Calcium Carb/Vitamin D 1 TABLET Tablet PO (05:55)
[2021-10-31] MEDS: ARIPiprazole 5 MG Tablet PO (05:55)
[2021-10-31] MEDS: Pantoprazole Sodium 20 MG Tablet PO (05:55)
[2021-10-31] MEDS: Sertraline 50 MG Tablet PO (05:55)
[2021-10-31] MEDS: Senna/Docusate Sodium 1 Tablet PO ×2 (05:58→18:11)
[2021-10-31] MEDS: Nystatin Powder 15gm Bottle 1 APPLIC TOPICAL ×2 (06:01→18:12)
[2021-10-31] MEDS: Menthol/Lanolin/Calamine/Znox 113 GM Tube 1 APPLIC TOPICAL (06:02)
[2021-10-31] MEDS: Acetaminophen 500 MG Tablet 1000 MG PO ×2 (10:06→21:27)
--- NOTE | 2021-10-31 10:31 | MDS.RN ---
Information for the mds was obtained from review of the clinical record, interview of resident, staff, and direct observation of resident's care.
[2021-10-31 14:07] VITALS: BP 151/74; PULSE 72; RESP 19; TEMP 35.7; O2SAT 97
[2021-10-31 14:37] VITALS: O2SAT 97
[2021-10-31] MEDS: Bisacodyl 5 MG Tablet 10 MG PO (15:13)
--- NOTE | 2021-10-31 15:44 | CASEMGMT ---
Social Work Followed up with pt to answer DC questions and finalize plans. Confirmed pt DC 11/07, [facility]. Pt choses [facility]. Referral made to [facility] PT/OT/GALINDO. PT requesting rollator. Inquired to [facility] about coverage with NAZIA secondary. Awaiting outcome. Pt has someone to transport her home between 10-12p. Plan: DC home alone 11/07, [facility] PT/OT/GALINDO, rollator Kerri Suarez, BERYL AYALAW
[2021-10-31] MEDS: MELATONIN 3 MG TABLET PO (21:28)
[2021-10-31 22:17] VITALS: PULSE 61; RESP 16; O2SAT 97
[2021-11-01] MEDS: ARIPiprazole 5 MG Tablet PO (05:06)
[2021-11-01] MEDS: Pantoprazole Sodium 20 MG Tablet PO (05:06)
[2021-11-01] MEDS: Citalopram 20 MG Tablet PO (05:06)
[2021-11-01] MEDS: Sertraline 50 MG Tablet PO (05:06)
[2021-11-01] MEDS: Senna/Docusate Sodium 1 Tablet PO ×2 (05:06→17:23)
[2021-11-01] MEDS: Calcium Carb/Vitamin D 1 TABLET Tablet PO (05:06)
[2021-11-01 05:07] VITALS: BP 125/70; PULSE 62
[2021-11-01] MEDS: Metoprolol(XL)Succ 25 MG Tablet PO (05:07)
[2021-11-01] MEDS: Nystatin Powder 15gm Bottle 1 APPLIC TOPICAL ×2 (05:07→17:24)
[2021-11-01] MEDS: Polyethylene Glycol 3350 17 GM PACKET PO (05:07)
[2021-11-01] MEDS: Acetaminophen 500 MG Tablet 1000 MG PO ×2 (14:44→23:18)
[2021-11-01 15:35] VITALS: BP 124/61; PULSE 66; RESP 20; TEMP 36; O2SAT 99
[2021-11-01] MEDS: Menthol/Lanolin/Calamine/Znox 113 GM Tube 1 APPLIC TOPICAL (17:24)
--- NOTE | 2021-11-01 20:31 | DS.PCM_ITS ---
Providers Date of Admission: 10/18/21 Primary Care Physician: Dr. Mauro Hastings MD Reason For Visit: VERTIGO/DEBILITY Diagnosis Discharge Diagnosis (1) Debility: Status: Acute Code(s): R53.81 - Other malaise (2) Dizziness: Status: Acute Code(s): R42 - Dizziness and giddiness (3) Benign paroxysmal positional vertigo: Status: Acute Code(s): H81.10 - Benign paroxysmal vertigo, unspecified ear (4) Orthostatic hypotension: Status: Acute Code(s): I95.1 - Orthostatic hypotension (5) Nausea: Status: Acute Code(s): R11.0 - Nausea (6) Dehydration: Status: Acute Code(s): E86.0 - Dehydration (7) Urinary tract infection: Status: Acute Code(s): N39.0 - Urinary tract infection, site not specified (8) Depression: Status: Acute Code(s): F32.A - Depression, unspecified (9) Gastroesophageal reflux disease: Status: Acute Code(s): K21.9 - Gastro-esophageal reflux disease without esophagitis (10) Hypertension: Status: Chronic Code(s): I10 - Essential (primary) hypertension Medications at Discharge Home Medications omeprazole 20 mg PO DAILY 10/25/16 metoprolol succinate 25 mg tablet,extended release 24 hr 25 mg PO DAILY #90 tab 03/23/21 aripiprazole 5 mg PO DAILY 10/16/21 calcium carbonate-vitamin D3 1 tab PO DAILY 10/16/21 melatonin 3 mg PO QHS 10/16/21 acetaminophen 1,000 mg PO Q6H PRN PRN #0 tab 11/01/21 citalopram 20 mg PO DAILY 30 Days #30 tab 11/01/21 Hospital Course Operations None Procedures None Summary of Care Provided Minutes Spent on Discharge: 35 Hospital Course: 66 year old female with below past medical history hospitalized for dizziness secondary to bppv/orthostatic hypotension, stroke ruled out, weakness secondary to urinary tract infection, admitted to TCU with debility, here for rehabilitation, strengthening, prior to discharge home alone. Discharge home alone 11/07/2021, [facility] PT/OT/GALINDO, Rollator. Physical Exam Const alert General Appearance: cooperative HEENT normocephalic Eyes PERRL and EOMs intact bilaterally Neck supple, no JVD and no carotid bruits Resp normal respiratory effort, normal air movement and clear to auscultation bilaterally Cardio regular rate and regular rhythm GI normal to inspection, nondistended, normoactive bowel sounds, non-tender and non-distended Extremity normal capillary refill General Extremity: Negative for edema Skin no rashes or lesions noted General Skin Exam: no breakdown Psych affect normal Appearance: appropriate Weight / BMI Weight Weight: 101.695 kg Body Mass Index (BMI) 41.7 ABG / Lab / Microbiology Data Result Diagrams: 10/26/21 05:23 10/26/21 05:23 Microbiology: Microbiology 10/26/21 12:20 Nasal Secretion SARS-CoV-2 Antigen (Rapid) - Final 10/25/21 05:58 Nasal Secretion SARS-CoV-2 Antigen (Rapid) - Final D/C Instructions Discharge Diet: No restrictions Discharge Activity: Return to Normal Activity, May Shower and Use Walker Weight Bearing Status: Weight bearing as tolerated Call your doctor if you observe: Fever of 101 or Higher, Inability to urinate, Inability to have a bowel movement, Shortness of breath, Dizziness, Fainting spells, Swelling in the ankles, Chest pain and Uncontrolled pain Additional Instructions: Discharge home alone 11/07/2021, [facility] PT/OT/GALINDO, Rollator. Please Follow Up With: Mauro Hastings When: Within 1 week. Meaningful Use Info Meaningful Use Diagnoses (Choose all that apply): None applicable Discharge Plan Admission Admit Date/Time: 10/18/21 12:37 Primary Reason for Your Visit: Debility. Attending Provider: Chris Dixon Chi Primary Care Provider: Mauro Hastings Instructions Additional Instructions / Restrictions: Discharge home alone 11/07/2021, [facility] PT/OT/GALINDO, Rollator. Discharge Orders/Prescriptions Prescriptions: New acetaminophen 500 mg Tablet 1,000 mg PO Q6H PRN PRN (Reason: Pain Score 1-10) Qty: 0 RF: 0 citalopram 20 mg Tablet 20 mg PO DAILY 30 Days Qty: 30 RF: 0 Continued omeprazole 20 MG capsule 20 mg PO DAILY RF: 0 melatonin 3 mg Tablet 3 mg PO QHS RF: 0 aripiprazole 5 mg tablet 5 mg PO DAILY RF: 0 calcium carbonate-vitamin D3 600 mg-10 mcg (400 unit) tablet 1 tab PO DAILY RF: 0 metoprolol succinate 25 mg tablet extended release 24 hr 25 mg PO DAILY Qty: 90 RF: 3 Discontinued sertraline 100 MG tablet 200 mg PO DAILY RF: 0 bupropion HCl 300 mg tablet extended release 24 hr 300 mg PO DAILY RF: 0 [facility]errals [facility]: [facility]Other] - 11/13/21 11:00 am Mauro Hastings MD [Primary Care Provider] - Disposition Disposition (needs filled in before D/C Order can be placed): Home Health Service
[2021-11-01] MEDS: MELATONIN 3 MG TABLET PO (22:04)
[2021-11-02] MEDS: Calcium Carb/Vitamin D 1 TABLET Tablet PO (05:12)
[2021-11-02] MEDS: Pantoprazole Sodium 20 MG Tablet PO (05:12)
[2021-11-02] MEDS: Senna/Docusate Sodium 1 Tablet PO ×2 (05:12→16:21)
[2021-11-02] MEDS: Polyethylene Glycol 3350 17 GM PACKET PO (05:12)
[2021-11-02] MEDS: Sertraline 50 MG Tablet PO (05:12)
[2021-11-02] MEDS: ARIPiprazole 5 MG Tablet PO (05:12)
[2021-11-02] MEDS: Nystatin Powder 15gm Bottle 1 APPLIC TOPICAL ×2 (05:12→16:21)
[2021-11-02] MEDS: Citalopram 20 MG Tablet PO (05:12)
[2021-11-02 05:13] VITALS: BP 116/56; PULSE 62
[2021-11-02] MEDS: Metoprolol(XL)Succ 25 MG Tablet PO (05:13)
[2021-11-02] MEDS: Acetaminophen 500 MG Tablet 1000 MG PO ×2 (05:20→13:15)
[2021-11-02 05:49] LABS: Absolute Lymphocyte Count 0.86 X10^3/uL (0.83-4.51); Absolute Neutrophil Count 3.3 X10^3/uL (2.0-7.7); Basophil# 0.04 X10^3/uL; Basophil% 0.8 % (0-1); Eosinophil# 0.25 X10^3/uL; Eosinophils% 5.2 % (0-5); Hematocrit 33.3 % (37-47); Lymphocyte # 0.86 X10^3/ul (0.83-4.51); Lymphocyte % 17.8 % (19-41); Mean Corpuscular Hgb 28.6 pg (27.0-32.0); Mean Corpuscular Volume 86.5 fL (81-99); Monocyte# 0.34 X10^3/uL; NRBC Flagged by Analyzer 0 % (0-5); Neutrophil # 3.31 X10^3/uL (2.7-7.7); Neutrophil % 68.6 % (47-70); Platelet Count 206 K/mm3 (150-450); RBC Distribution Width CV 13.3 % (11.6-14.6); RBC Distribution Width SD 41.4 fl (35.1-43.9); Red Blood Count 3.85 M/mm3 (4.2-5.4); White Blood Count 4.8 K/mm3 (4.4-11.0)
[2021-11-02 06:11] LABS: Anion Gap 5 (5-15); BUN 17 mg/dL (7-18); BUN/Creat Ratio 18.6 RATIO (10-20); Calcium,Total 8.2 mg/dL (8.5-10.1); Chloride 107 mmol/L (98-107); Creatinine, Serum 0.91 mg/dL (0.55-1.02); EST Glomerular Filtration Rate 66 mL/min (>60); Est Glom Filt Rate - Afr Amer 79 mL/min (>60); Estimated Creatinine Clearance 45.89 ml/min; Glucose 87 mg/dL (74-106); Potassium 3.9 mmol/L (3.5-5.1); Sodium Level 138 mmol/L (136-145)
[2021-11-02 14:40] VITALS: BP 123/73; PULSE 67; RESP 16; TEMP 35.8; O2SAT 98
[2021-11-02] MEDS: MELATONIN 3 MG TABLET PO (21:03)
[2021-11-02 22:22] VITALS: PULSE 73; RESP 16; O2SAT 96
[2021-11-03 05:12] VITALS: BP 135/66; PULSE 64
[2021-11-03] MEDS: Sertraline 50 MG Tablet PO (05:12)
[2021-11-03] MEDS: Senna/Docusate Sodium 1 Tablet PO ×2 (05:12→17:00)
[2021-11-03] MEDS: Metoprolol(XL)Succ 25 MG Tablet PO (05:12)
[2021-11-03] MEDS: Calcium Carb/Vitamin D 1 TABLET Tablet PO (05:12)
[2021-11-03] MEDS: Citalopram 20 MG Tablet PO (05:12)
[2021-11-03] MEDS: ARIPiprazole 5 MG Tablet PO (05:12)
[2021-11-03] MEDS: Polyethylene Glycol 3350 17 GM PACKET PO (05:12)
[2021-11-03] MEDS: Pantoprazole Sodium 20 MG Tablet PO (05:12)
[2021-11-03] MEDS: Nystatin Powder 15gm Bottle 1 APPLIC TOPICAL ×2 (05:13→17:07)
[2021-11-03 15:47] VITALS: BP 113/65; PULSE 59; RESP 16; TEMP 35.9; O2SAT 94
[2021-11-03] MEDS: Acetaminophen 500 MG Tablet 1000 MG PO (16:59)
[2021-11-03] MEDS: MELATONIN 3 MG TABLET PO (20:26)
[2021-11-03 20:33] VITALS: PULSE 62; RESP 14; O2SAT 94
[2021-11-04 05:57] VITALS: BP 128/56; PULSE 60
[2021-11-04] MEDS: Calcium Carb/Vitamin D 1 TABLET Tablet PO (05:57)
[2021-11-04] MEDS: Citalopram 20 MG Tablet PO (05:57)
[2021-11-04] MEDS: Senna/Docusate Sodium 1 Tablet PO ×2 (05:57→16:55)
[2021-11-04] MEDS: Pantoprazole Sodium 20 MG Tablet PO (05:57)
[2021-11-04] MEDS: ARIPiprazole 5 MG Tablet PO (05:57)
[2021-11-04] MEDS: Metoprolol(XL)Succ 25 MG Tablet PO (05:57)
[2021-11-04] MEDS: Nystatin Powder 15gm Bottle 1 APPLIC TOPICAL ×2 (05:58→16:56)
[2021-11-04] MEDS: Polyethylene Glycol 3350 17 GM PACKET PO (05:59)
[2021-11-04] MEDS: Sertraline 50 MG Tablet PO (06:00)
[2021-11-04 16:00] VITALS: BP 113/65; PULSE 59; RESP 16; TEMP 36.5; O2SAT 94
[2021-11-04] MEDS: MELATONIN 3 MG TABLET PO (22:41)
[2021-11-05] MEDS: Polyethylene Glycol 3350 17 GM PACKET PO (05:45)
[2021-11-05] MEDS: ARIPiprazole 5 MG Tablet PO (05:47)
[2021-11-05] MEDS: Calcium Carb/Vitamin D 1 TABLET Tablet PO (05:47)
[2021-11-05] MEDS: Pantoprazole Sodium 20 MG Tablet PO (05:47)
[2021-11-05 05:48] VITALS: BP 107/78; PULSE 61
[2021-11-05] MEDS: Citalopram 20 MG Tablet PO (05:48)
[2021-11-05] MEDS: Metoprolol(XL)Succ 25 MG Tablet PO (05:48)
[2021-11-05] MEDS: Senna/Docusate Sodium 1 Tablet PO ×2 (05:48→16:48)
[2021-11-05] MEDS: Nystatin Powder 15gm Bottle 1 APPLIC TOPICAL ×2 (05:51→16:49)
--- NOTE | 2021-11-05 05:53 | NURSING ---
Patient noted to have some nasal congestion this AM. No other symptoms noted. Will continue to monitor.
[2021-11-05 16:00] VITALS: BP 135/77; PULSE 60; RESP 16; TEMP 36.2; O2SAT 96
[2021-11-05 20:20] VITALS: RESP 18
[2021-11-05] MEDS: MELATONIN 3 MG TABLET PO (20:20)
[2021-11-06 04:55] VITALS: BP 136/71; PULSE 57; RESP 18; TEMP 36.6; O2SAT 97
[2021-11-06] MEDS: Calcium Carb/Vitamin D 1 TABLET Tablet PO (04:55)
[2021-11-06] MEDS: Polyethylene Glycol 3350 17 GM PACKET PO (04:58)
[2021-11-06 04:59] VITALS: BP 136/71; PULSE 57
[2021-11-06] MEDS: Metoprolol(XL)Succ 25 MG Tablet PO (04:59)
[2021-11-06] MEDS: Citalopram 20 MG Tablet PO (04:59)
[2021-11-06] MEDS: ARIPiprazole 5 MG Tablet PO (04:59)
[2021-11-06] MEDS: Pantoprazole Sodium 20 MG Tablet PO (04:59)
[2021-11-06] MEDS: Nystatin Powder 15gm Bottle 1 APPLIC TOPICAL ×2 (05:00→16:34)
[2021-11-06] MEDS: Acetaminophen 500 MG Tablet 1000 MG PO (10:54)
[2021-11-06 12:33] VITALS: PULSE 58; RESP 18; O2SAT 97
[2021-11-06 14:27] VITALS: BP 126/68; PULSE 60; RESP 17; TEMP 36.3; O2SAT 97
[2021-11-06] MEDS: MELATONIN 3 MG TABLET PO (21:24)
[2021-11-07 05:46] VITALS: BP 129/76; PULSE 61
[2021-11-07] MEDS: Senna/Docusate Sodium 1 Tablet PO (05:46)
[2021-11-07] MEDS: Pantoprazole Sodium 20 MG Tablet PO (05:46)
[2021-11-07] MEDS: Calcium Carb/Vitamin D 1 TABLET Tablet PO (05:46)
[2021-11-07] MEDS: Metoprolol(XL)Succ 25 MG Tablet PO (05:46)
[2021-11-07] MEDS: Citalopram 20 MG Tablet PO (05:46)
[2021-11-07] MEDS: ARIPiprazole 5 MG Tablet PO (05:46)
[2021-11-07] MEDS: Polyethylene Glycol 3350 17 GM PACKET PO (05:47)
[2021-11-07] MEDS: Nystatin Powder 15gm Bottle 1 APPLIC TOPICAL ×2 (05:47→11:02)
--- NOTE | 2021-11-07 09:19 | CASEMGMT ---
Social Work BIMS and PHQ-9 completed for MDS assessment. Pt reports her depressive symptoms has improved. She remains agreeable to attend [facility] appt 11[facility]13 and expressed appreciation for support from this worker. BERYL GongoraW
[2021-11-07 10:45] VITALS: BP 133/81; PULSE 59; RESP 22; TEMP 35.3; O2SAT 93
[2021-11-07] MEDS: Acetaminophen 500 MG Tablet 1000 MG PO (10:54)
[2021-11-07] MEDS: Menthol/Lanolin/Calamine/Znox 113 GM Tube 1 APPLIC TOPICAL (11:03)
== END 2021-11-07 12:20 | disposition home health service (06) | DRG 690 ==
PROVIDERS: Admitting Provider Family Medicine Geriatric Medicine; PCP Family Medicine; Visit Provider Family Medicine Geriatric Medicine
DX: N39.0 Urinary tract infection, site not specified (principal); Z68.41 Body mass index [BMI] 40.0-44.9, adult; B35.4 Tinea corporis; E66.01 Morbid (severe) obesity due to excess calories; B96.20 Unspecified Escherichia coli [E. coli] as the cause of diseases classified elsewhere; E78.00 Pure hypercholesterolemia, unspecified; K21.9 Gastro-esophageal reflux disease without esophagitis; I10 Essential (primary) hypertension; H81.10 Benign paroxysmal vertigo, unspecified ear; F32.A Depression, unspecified; Z87.891 Personal history of nicotine dependence; Z79.899 Other long term (current) drug therapy; Z23 Encounter for immunization
CPT/HCPCS: 0064A; 36415; 80048; 82962; 85025; 87426; 87811; 91306; 92507; 92523; 92610; 97110; 97116; 97162; 97166; 97530; 97535; 97802

== ENCOUNTER 2022-04-13 10:37 | Emergency (ER) | payer MEDICARE, MEDICAID, SELFPAY ==
[2022-04-13 10:38] VITALS: PULSE 66; RESP 18; TEMP 36.8; O2SAT 93; BMI 42.7
[2022-04-13 10:40] VITALS: BP 163/95
--- NOTE | 2022-04-13 10:49 | EKG12_ITS ---
Test Reason : Blood Pressure : / mmHG Vent. Rate : 066 BPM Atrial Rate : 066 BPM P-R Int : 184 ms QRS Dur : 086 ms QT Int : 418 ms P-R-T Axes : 043 -23 028 degrees QTc Int : 438 ms Normal sinus rhythm Minimal voltage criteria for LVH, may be normal variant ( R in aVL ) Inferior infarct , age undetermined Abnormal ECG Confirmed by KALLI GROSSMAN, LISA ([id number]), television news video editor DEIDRE MENDEZ ([id number]) on 04/17/2022 8:55:48 AM Referred By: Confirmed By:SMITHA MAHAN MD
--- NOTE | 2022-04-13 10:50 | EX.ED.DYSGE1 ---
HPI History of Present Illness Chief Complaint: Complaint Detail of Chief Complaint: Weakness Informant: patient Onset/Context/Timing Onset: Days Context: Gradual Onset Timing: Continuous Current Severity: Mild Maximum Severity: Mild Narrative Narrative: 66-year-old female complaining of generalized weakness and urinary incontinence. She says he has a history of urinary incontinence but is gotten worse and she has had type of like this before when she has a urinary tract infection. Denies fever. No dysuria. No chest or abdominal pain. Denies any nausea or vomiting. Denies any diarrhea or fever. She lives alone at home. Denies any recent admissions. Denies any recent medication changes. Prior similar symptoms: Yes Recent Illness/Hospitalization: No PFSH PFS Medical History Acute recurrent pancreatitis Anemia Chronic pain Colon polyps Depression Essential hypertension Former smoker GERD (gastroesophageal reflux disease) Lung nodules Morbid obesity Multiple thyroid nodules Obesity Osteoarthritis Osteoporosis Pancreatitis Poor dentition Pure hypercholesterolemia Thoracic aortic aneurysm without rupture Home Medications omeprazole 20 mg capsule,delayed release 20 mg PO DAILY gerd 10/25/16 [History Last Taken 10/16/21] aripiprazole 5 mg tablet 5 mg PO DAILY MENTAL HEALTH 10/16/21 [History Last Taken 10/16/21] calcium carbonate 600 mg-vitamin D3 10 mcg (400 unit) tablet 1 tab PO DAILY SUPPLEMENT 10/16/21 [History Last Taken 10/16/21] melatonin 3 mg tablet 3 mg PO QHS SLEEP 10/16/21 [History Last Taken 10/14/21] acetaminophen 500 mg tablet 1,000 mg PO Q6H PRN PRN Pain Score 1-10 #0 tabs 11/01/21 [Rx Last Taken Unknown] citalopram 20 mg tablet 20 mg PO DAILY 30 days #30 tabs 11/01/21 [Rx Last Taken Unknown] metoprolol succinate 25 mg tablet,extended release 24 hr 25 mg PO DAILY bp #90 tabs 03/09/22 [Rx Last Taken Unknown] Allergy/AdvReac Type Severity Reaction Status Date / Time No Known Allergies Allergy Verified 10/16/21 14:38 Family History Mother Colon cancer Father Cancer Lung Sister Breast cancer Brother Cancer Lung Surgical History History of carpal tunnel surgery History of cholecystectomy History of total hysterectomy Social History household members: none Smoking Status: Former smoker alcohol intake: never substance use type: does not use caffeine: Yes Type: coffee Number of servings: 2 ROS ROS ED ROS Narrative Generalized weakness. Incontinence. Review of Systems ROS Unobtainable: Denies due to encephalopathy Constitutional Constitutional ED: Denies chills or fever(s) Eyes Eyes: Denies blurry vision ENT ENT ED: Denies ear pain Cardiovascular Cardiovascular: Denies chest pain Respiratory/Chest Respiratory/Chest: Denies cough or dyspnea Gastrointestinal Gastrointestinal: Denies abdominal pain Genitourinary Genitourinary ED: Denies dysuria or hematuria Musculoskeletal Musculoskeletal: Denies arthralgias Integumentary Denies abscess Neurologic Neurologic: Denies headache(s) Psychiatric Psychiatric: Denies anxiety Endocrine Endocrinology: Denies cold intolerance Hematologic/Lymphatic Hematologic/Lymphatic: Denies none Allergic/Immunologic Allergic/Immunologic ED: Denies mouth swelling or tongue swelling EXAM Physical Exam Narrative Exam Narrative: 66-year-old female. Vital signs stable afebrile. Pulse ox 93% on room air no hypoxia. She is in no distress. H EENT exam unremarkable. Moist Riis membranes. Neck nontender no JVD. Lungs clear to auscultation. Heart regular rhythm rate about 66 no murmur. Abdomen soft nontender normal bowel sounds no peritoneal signs. Obese. Moving all 4 extremities. Calves nontender. No edema. Neurologically she is awake and alert. No focal motor deficits. Answering questions and following commands. Const Vital Signs: 04/13/22 10:38 04/13/22 10:40 04/13/22 10:41 Temperature 98.2 F Temperature Source Temporal Pulse Rate 66 Respiratory Rate 18 Respiratory Effort Normal Non-Labored Respiratory Pattern Normal Blood Pressure 163/95 H Blood Pressure Mean 117 Pulse Ox 93 Oxygen Delivery Method Room Air Positive well nourished, well developed and obese; Negative for cachectic, contractures or unkempt General Appearance ED: well developed and NAD; Negative for unkempt, cachectic, contractures, cyanotic or diaphoretic Nutritional Appearance: obese; Negative for cachectic HEENT Reports moist mucous membranes Negative for trauma Eyes PERRL and EOMs intact bilaterally General Eye ED: Negative for pale conjunctiva or scleral icterus Neck no lymphadenopathy, supple and no JVD General: Negative for tenderness Lymph Lymphatic: Negative for other Chest Wall inspection of chest normal and palpation of chest normal Chest: Negative for other Resp normal respiratory effort and clear to auscultation bilaterally Effort and Inspection: Negative for retractions Auscultation: Negative for rales, rhonchi or wheezes Cardio regular rate, regular rhythm, S1 normal heart sound, S2 normal heart sound and no murmurs Palpation: Negative for palpable S3 Rate: Negative for bradycardia Rhythm: Negative for abnormal rhythm GI normal to inspection, nondistended, normoactive bowel sounds, non-tender, non-distended and no masses Inspection: Negative for abdominal distention Auscultation: normoactive bowel sounds Palpation: soft; Negative for tender or guarding Back/Spine no CVA tenderness General Back: Negative for CVA tenderness Cervical Spine: Negative for cervical spine tenderness Thoracic Spine / Upper Back: Negative for thoracic spinal tenderness Extremity normal to inspection General Extremety ED: Negative for edema or tenderness General Extremity: Negative for edema Neuro oriented x3 Sensorium / Orientation: alert; Negative for orientation impaired, lethargic or stuporous Motor Exam: strength 5/5 throughout Psych mental status grossly normal Appearance: Negative for unkempt Attitude: No agitated Mood & Affect: Negative for depressed or anxious Skin no rashes or lesions noted Lesions: No lesion noted Rashes: No rashes noted Trauma: Negative for abrasion Wounds: Negative for wounds noted MDM MDM MDM Narrative Medical decision making narrative: 66-year-old female complaining of generalized weakness and urinary incontinence. Exam benign. Screening labs will be obtained including a urinalysis. She will be treated with IV fluids. Repeat exam patient is doing well at 12:30 PM. Went over test results. Nurses can ambulate her she ambulates Lab Data Attestation: I reviewed the patient's lab results. Lab results narrative: CBC shows a white count of 5.1. H&H 11.0 and 34 which is her baseline chronic anemia. Platelets 276. Electrolytes are 19 135 gap is 7 BUN and creatinine 20 and 0.78. Glucose 106. UA is normal. Labs not significant change from prior. Labs: Laboratory Results - last 24 hr 04/13/22 04/13/22 04/13/22 11:00 11:00 11:40 WBC 5.1 RBC 4.19 L Hgb 11.0 L Hct 34.3 L MCV 81.9 MCH 26.3 L MCHC 32.1 RDW Std Deviation 36.7 RDW Coeff of Janey 12.5 Plt Count 276 MPV 8.3 Immature Gran % (Auto) 0.600 Neut % (Auto) 76.7 H Lymph % (Auto) 13.5 L [place] % (Auto) 8.6 Eos % (Auto) 0.2 Baso % (Auto) 0.4 Absolute Neuts (auto) 3.9 Absolute Lymphs (auto) 0.69 L Nucleated RBC % 0 Sodium 135 L Potassium 4.1 Chloride 102 Carbon Dioxide 26.0 Anion Gap 7 BUN 20 H Creatinine 0.78 Estim Creat Clear Calc 41.76 Est GFR (MDRD) Af Amer 95 Est GFR (MDRD) Non-Af 79 BUN/Creatinine Ratio 25.7 H Glucose 106 Calcium 8.6 Urine Color Yellow Urine Clarity Clear Urine pH 6.0 Ur Specific [place] 1.010 Urine Protein Negative Urine Glucose (UA) Normal Urine Ketones Negative Urine Occult Blood 10 H Urine Nitrite Negative Urine Bilirubin Negative Urine Urobilinogen Normal Ur Leukocyte Esterase Negative Urine RBC 0 SEEN Urine WBC 0 SEEN Ur Squamous Epith Cells 0 SEEN Urine Bacteria RARE Urine Mucus 0 SEEN Radiography Chest X-Ray - ED: 1 View, Read by ED Physician, Read by Radiologist, Heart, Lungs, Mediastinum, Bony Structures, No Acute Disease and Chronic Changes Diagnostic Testing: Clinical Impression(s) from Imaging Studies Chest X-Ray 04/13/22 11:25 IMPRESSION: No acute abnormality is seen. Electronically Signed: César Do MD at 12:07 EDT , Chest x-ray, single view, portable interpreted myself and radiologist shows no emergent abnormality. Normal cardiac silhouette. No infiltrate. Rhythm Strip Rhythm Strip: Sinus Rhythm Rate: 66 EKG Initial EKG: Attestation: I personally reviewed and interpreted this EKG as follows: Interpretation: Sinus Rhythm and No Acute Injury Pattern Comments: Consciousness normal sinus rhythm rate of 66. No acute signs of CT or ischemia. Unchanged from prior EKG from October of this year. Prior EKG tracings: available for review Prior: Unchanged Discharge Plan Triage Chief Complaint: Complaint Other Complaint: Fever Weakness ED Provider: Sharif Rodriguez Dx/Rx/DC Orders Clinical Impression: Generalized weakness Instructions: ED Weakness (Uncertain Cause) Prescriptions: No Action omeprazole 20 MG capsule 20 mg PO DAILY melatonin 3 mg Tablet 3 mg PO QHS aripiprazole 5 mg tablet 5 mg PO DAILY calcium carbonate-vitamin D3 600 mg-10 mcg (400 unit) tablet 1 tab PO DAILY acetaminophen 500 mg Tablet 1,000 mg PO Q6H PRN PRN (Reason: Pain Score 1-10) Qty: 0 0RF citalopram 20 mg Tablet 20 mg PO DAILY 30 Days Qty: 30 0RF metoprolol succinate 25 mg tablet extended release 24 hr 25 mg PO DAILY Qty: 90 3RF Primary Care Provider: Mauro Hastings Referrals: Mauro Hastings MD [Primary Care Provider] - 3-5 Days if not improving Activity Restrictions/Additional Instructions: Plenty of fluids and rest. Follow-up with your primary care physician to ensure you are improving. Return if worse. Your labs, EKG, chest x-ray and urinalysis today were unremarkable. Disposition Disposition: Home, Self Care
[2022-04-13 11:09] LABS: Absolute Lymphocyte Count 0.69 X10^3/uL (0.83-4.51); Absolute Neutrophil Count 3.9 X10^3/uL (2.0-7.7); Basophil# 0.02 X10^3/uL; Basophil% 0.4 % (0-1); Eosinophil# 0.01 X10^3/uL; Eosinophils% 0.2 % (0-5); Hematocrit 34.3 % (37-47); Lymphocyte # 0.69 X10^3/ul (0.83-4.51); Lymphocyte % 13.5 % (19-41); Mean Corp Hgb Conc 32.1 g/dL (32-36); Mean Corpuscular Hgb 26.3 pg (27.0-32.0); Mean Corpuscular Volume 81.9 fL (81-99); Mean Platelet Vol. 8.3 fl (6.2-12.0); Monocyte# 0.44 X10^3/uL; Monocyte% 8.6 % (0-10); NRBC Flagged by Analyzer 0 % (0-5); Neutrophil # 3.92 X10^3/uL (2.7-7.7); Neutrophil % 76.7 % (47-70); Platelet Count 276 K/mm3 (150-450); RBC Distribution Width CV 12.5 % (11.6-14.6); RBC Distribution Width SD 36.7 fl (35.1-43.9); Red Blood Count 4.19 M/mm3 (4.2-5.4); White Blood Count 5.1 K/mm3 (4.4-11.0)
[2022-04-13 11:24] LABS: Anion Gap 7 (5-15); BUN 20 mg/dL (7-18); BUN/Creat Ratio 25.7 RATIO (10-20); Calcium,Total 8.6 mg/dL (8.5-10.1); Chloride 102 mmol/L (98-107); Creatinine, Serum 0.78 mg/dL (0.55-1.02); EST Glomerular Filtration Rate 79 mL/min (>60); Est Glom Filt Rate - Afr Amer 95 mL/min (>60); Estimated Creatinine Clearance 41.76 ml/min; Glucose 106 mg/dL (74-106); Potassium 4.1 mmol/L (3.5-5.1); Sodium Level 135 mmol/L (136-145)
--- NOTE | 2022-04-13 11:25 | RAD_ITS ---
STUDY: X-RAY CHEST REASON FOR EXAM: Female, 66 years old. Weakness TECHNIQUE: Single AP portable view of the chest. COMPARISON: Comparison is made with prior study 10/16/2021. FINDINGS: EKG electrodes are seen. The lungs are clear and expanded. There is no demonstrated pleural abnormality. Normal size heart. Normal mediastinum and ivan. Normal visualized pulmonary arteries. There is atherosclerotic calcification of the aortic arch with tortuosity. Normal visualized thoracic spine. Normal visualized ribs, clavicles, and shoulders. There is no demonstrated abnormality of the visualized soft tissue structures of the upper abdomen. RAD/Chest 1 View (Portable) IMPRESSION: No acute abnormality is seen. Electronically Signed: César Do MD at 12:07 EDT ,
[2022-04-13 11:47] LABS: Mucous, Urine 0 SEEN /hpf (<or=2+); Squamous Epithelial Cells - UA 0 SEEN /hpf (5-10); White Blood Cells 0 SEEN /hpf (0-5)
[2022-04-13 11:52] LABS: Color, Urine Yellow (Yellow); Glucose, Dipstick Normal (Normal); Ketone-Dipstick Negative (Negative); Leukocyte Esterase-Dipstick Negative /ul (Negative); Nitrite-Dipstick Negative (Negative); Occult Blood-Urine 10 /ul (Negative); Protein-Dipstick Negative (Negative); Urine Bilirubin Dipstick Negative (Negative); Urine Clarity Clear (Clear); Urine Urobilinogen Normal (Normal)
[2022-04-13] MEDS: Acetaminophen 325 MG Tablet 650 MG PO (11:56)
[2022-04-13 12:03] LABS: Bacteria RARE /hpf (None Seen); Red Blood Cells-Urine 0 SEEN /hpf (0-5)
--- NOTE | 2022-04-13 13:15 | CM.ED ---
Patient needs a ride home. NATALIA was advised that patient has [employer] insurance. NATALIA reviewed chart and noted that patient has medicare a and B and [employer] insurance. NATALIA spoke to PCU NATALIA Ren who confirmed that patient can be transported home in a wheelchair van from the ED with [employer] insurance. NATALIA updated Rasheeda Mata RN. Maria De Jesus PINTO
--- NOTE | 2022-04-13 13:24 | NURSING ---
ETA IS 40 TO 45 MIN
== END 2022-04-13 14:12 | disposition home or self-care (01) ==
PROVIDERS: Emergency Provider Emergency Medicine; PCP Family Medicine; Visit Provider Emergency Medicine
DX: R53.1 Weakness (principal); R32 Unspecified urinary incontinence; E78.00 Pure hypercholesterolemia, unspecified; I10 Essential (primary) hypertension; R50.9 Fever, unspecified; E66.9 Obesity, unspecified; Z79.899 Other long term (current) drug therapy; Z87.891 Personal history of nicotine dependence
CPT/HCPCS: 71045; 80048; 81001; 85025; 93005; 96360; 99285; J7040; P9612; A4216

== ENCOUNTER 2022-06-29 12:30 | Outpatient (RCR) | payer MEDICARE, MEDICAID, SELFPAY ==
--- NOTE | 2022-05-17 15:35 | HP.PTEVAL ---
Patient's Visit Information AUGUSTINE PENA is a 66 year old F referred to Physical Therapy by Dr. Mauro Hastings MD with a diagnosis of LE Weakness. Date of Evaluation: 05/17/22 Physical Therapist: Nicole Perrin DPT - Visit Plan Frequency: 2x /Week Duration: 4 Weeks Plan: LE and core strength/stabilization with functional mobility. HEP Given IEL: quad set, glut set, supine marching, seated marching, seated HR/TR: Up every hour - Subjective Patient reports that she has had a lot of muscle pains- she is barely able to get in/out of bed for the last few months. Her MD put her on Predisone and is sending her to [facility]. She had a few sicknessess that she was in the hospital for the last year and they couldn't find anything- its gotten worse. She spends a lot of time in bed- due to the pain in her legs. She is never pain free. She has pain her whole right leg from hip to ankle. The left leg is hard to get around and is now getting pains all over her body. Best: 3/10 Eases: laying down. Worst: 8/10 Agg: any sort of movement. She uses the quad cane to get around her tiny apartment- she uses her w/c to get in/out of her home- she can get in/out of a car but not a raised vehicle- they brought her in the w/c today in an accessible van. Describes the pain in her leg its sharp an shooting but just sitting its dull and achy. She has had x-rays on her back but none on her right leg. Was in the [facility] in October and has been home since then. No home health services. No exercise for her legs- but did have PT come in last year. She has not had any falls. She has a home health aid that comes in 2x a week that does her cleaning, laundry and grocery. She has a hand held shower so she can do her own bathing. Sleep: disturbed. PMHx/Meds: see chart from ED visit- but does now take predisone - Objective Posture: FH, RS- can correct but is unable to maintain. Gait: antlagic- quad cane in her left LE- decreased stance on right LE with poor heel/toe pattern. HR/TR: able with UE A. SLS: weight shift but is unable to SLS- increased pain right>left. ROM: WFL in all planes. Strength: Core: poor, Left: 4/5 throughout, Right: Hip: 4-/5, Knee: 4/5 with crepetis and pain, Ankle: 4/5. Flex: HS: severe, Gastroc: severe. Sensation: diminished on right LE. Palpation: tender along posterior knee, quad, hamstrings and greater troch on the. Sit to Stand: bilateral UE - Balance/Special Test Scores Lower Extremity Functional Score: 13 TUG Test Time Seconds: 35 - Goals Goal 1:: Patient will be I with HEP and progression Goal Time Frame: 4-6 Weeks Goal 2:: Patient will ambulate >150 feet with LRD Goal Time Frame: 4-6 Weeks Goal 3:: Patient will sit to stand x2 without UE A Goal Time Frame: 4-6 Weeks Goal 4:: Patient will report 80% improvement Goal Time Frame: 4-6 Weeks - Rehabilitation Potential Physical Therapy Diagnosis: Patient presents with hypomobility- she has decreased LE and core strength/stabilization, flex and muscular endurance leading to inability to perform ADL's Rehabilitation Potential: Fair - Anticipated Interventions Patient/Client Instruction: Educate patient on: Benefits of Fitness Program Therapeutic Exercise to Include: Strength training, Endurance training, Balance training, Agility training, Body mechanics, Postural training, Flexibilty training, Gait and locomotor training, Dynamic Lumbar Stabilization, Scapular Strength/Stabilization For the Purpose of:: To improve muscle performance and motor function Thank you for the opportunity to evaluate your patient. For Medicare and Medicare HMO plans, please review the plan of care and approve it. It will need to be FAXED BACK to us at [phone] for Medicare purposes. For Medicare only, by signing this I certify the plan of care. Please let me know if there are questions or concerns regarding this plan of care. Physician Signature: Date:
--- NOTE | 2022-11-05 07:14 | HP.PT.NRP ---
AUGUSTINE PENA was seen in my office for initial evaluation on 05/17/22. The following Plan of Care was established for this patient: Initial Frequency: 2x /Week Initial Duration: 4 Weeks Patient/Client Instruction: Educate patient on: Benefits of Fitness Program Therapeutic Exercise to Include: Strength training, Endurance training, Balance training, Agility training, Body mechanics, Postural training, Flexibilty training, Gait and locomotor training, Dynamic Lumbar Stabilization, Scapular Strength/Stabilization For the Purpose of:: To improve muscle performance and motor function This patient was last seen in our office . Pertinent comments regarding their Physical therapy will appear below: Patient has not attended PT in over 30 days- appropriate to be d/c from PT and return to MD as appropriate At this point I will be discontinuing this patient from physical therapy. I would be happy to see this patient again in the future if found appropriate by the physician. Thank you! SULEMAN SifuentesT Balance/Gait/Functional tests - Balance/Special Test Scores Lower Extremity Functional Score: 13 TUG Test Time Seconds: 35 Tug Test: >30sec.=impaired mobility
== END 2022-06-29 19:00 | disposition home or self-care (01) ==
LOC: PT 12:30
PROVIDERS: PCP Family Medicine; Referring Provider Family Medicine; Visit Provider Family Medicine
DX: M17.11 Unilateral primary osteoarthritis, right knee (principal); M62.81 Muscle weakness (generalized); R27.0 Ataxia, unspecified
CPT/HCPCS: 97110; 97162

== ENCOUNTER 2022-12-12 17:27 | Emergency (ER) | payer MEDICARE, MEDICAID, SELFPAY ==
[2022-12-12 17:28] VITALS: BP 155/86; PULSE 87; RESP 18; TEMP 37.2; O2SAT 95; BMI 48.6
--- NOTE | 2022-12-12 17:56 | EDS_ITS ---
HPI History of Present Illness Chief Complaint: Lower Extremity Injury Narrative Narrative: 67-year-old female here with concern for shortness of breath and right lower extremity swelling and pain. Patient was told to come in by her primary care physician Dr. Hastings for possible blood clot given elevated D-dimer. [facility] Medical History Acute recurrent pancreatitis Anemia Chronic pain Colon polyps Depression Essential hypertension Former smoker GERD (gastroesophageal reflux disease) Lung nodules Morbid obesity Multiple thyroid nodules Obesity Osteoarthritis Osteoporosis Pancreatitis Poor dentition Pure hypercholesterolemia Thoracic aortic aneurysm without rupture Home Medications omeprazole 20 mg capsule,delayed release 20 mg PO DAILY gerd 10/25/16 [History Last Taken 10/16/21] aripiprazole 5 mg tablet 5 mg PO DAILY MENTAL HEALTH 10/16/21 [History Last Taken 10/16/21] calcium carbonate 600 mg-vitamin D3 10 mcg (400 unit) tablet 1 tab PO DAILY SUPPLEMENT 10/16/21 [History Last Taken 10/16/21] melatonin 3 mg tablet 3 mg PO QHS SLEEP 10/16/21 [History Last Taken 10/14/21] acetaminophen 500 mg tablet 1,000 mg PO Q6H PRN PRN Pain Score 1-10 #0 tabs 11/01/21 [Rx Last Taken Unknown] citalopram 20 mg tablet 20 mg PO DAILY 30 days #30 tabs 11/01/21 [Rx Last Taken Unknown] metoprolol succinate 25 mg tablet,extended release 24 hr 25 mg PO DAILY bp #90 tabs 03/09/22 [Rx Last Taken Unknown] Allergy/AdvReac Type Severity Reaction Status Date / Time No Known Allergies Allergy Verified 12/12/22 17:30 Family History Mother Colon cancer Father Cancer Lung Sister Breast cancer Brother Cancer Lung Surgical History History of carpal tunnel surgery History of cholecystectomy History of total hysterectomy Social History household members: none Smoking Status: Former smoker alcohol intake: never substance use type: does not use caffeine: Yes Type: coffee Number of servings: 2 ROS ROS ED ROS Narrative Constitutional: Denies fever HEENT: Denies sore throat Neck: Denies neck pain Cardiovascular: Denies chest pain, syncope Respiratory: Endorses dyspnea GI: Denies nausea vomiting or abdominal pain : Denies changes in urinary habits Musculoskeletal: Denies muscle or joint pain, endorses leg swelling Neurologic: Denies numbness weakness or loss of sensation Skin denies rash EXAM Physical Exam Narrative Exam Narrative: Nursing triage notes reviewed, Vital signs reviewed Constitutional: please see mdm HENT: MMM Eyes: Pupils equal round and reactive to light, Extraocular muscles intact Neck: No stridor, no JVD, full neck ROM Lungs: Clear to auscultation, No wheezing or rales. No increased work of breathing, no conversational dyspnea, no accessory muscle use, no nasal flaring. No respiratory distress noted Heart: Regular rate and rhythm, No murmurs, No rubs and No gallops, 2+ distal pulses (radial, femoral, posterior tibial) in all extremities Abdomen: Soft, there is no tenderness, rigidity, rebound or guarding, no obvious peritoneal signs, no palpable pulsatile abdominal masses, no auscultated abdominal bruit : No CVAT Extremities: Trace edema to right lower extremity Neuro: No focal neurological deficits, cranial nerves II through XII intact, 5/5 strength in all extremities. Intact sensation to light touch in all extremities, 2+ reflexes bilateral patella dens. Normal gait. No ataxia. Skin: No rash or lesions noted Const Vital Signs: 12/12/22 17:28 12/12/22 17:36 12/12/22 21:06 Temperature 98.9 F Temperature Source Oral Pulse Rate 87 73 Respiratory Rate 18 15 Respiratory Effort Short of Breath Blood Pressure 155/86 H Blood Pressure Mean 109 Pulse Ox 95 94 Oxygen Delivery Method Room Air Room Air 12/12/22 21:48 Temperature Temperature Source Pulse Rate 73 Respiratory Rate 19 H Respiratory Effort Blood Pressure Blood Pressure Mean Pulse Ox 96 Oxygen Delivery Method [facility] MDM MDM Narrative Medical decision making narrative: Chief Complaint: Shortness of breath, leg swelling External records reviewed: D-dimer from earlier today was 1.89 MDM: Patient was hemodynamically stable, afebrile, nontoxic-appearing I considered the following differential diagnosis: PE, DVT, ACS, arrhythmia, anemia, electrolyte abnormalities I obtained a broad lab and imaging work-up to further elucidate the etiology of the patient's complaints. Labs were negative for COVID, flu, signs of volume overload or increased transmural wall pressure. EKG troponin were negative for myocardial ischemia. Patient's CTA of the chest showed no evidence of PE and DVT study was negative. Patient symptoms are unclear at this time but likely do not represent a life limiting etiology given stable vitals, negative labs and images and reassuring exam. Factors affecting care: History of hypertension, hyperlipidemia Social determinants of health: None History obtained from others: None Shared decision making: I will have a discussion with the patient and or visitors regarding risk/benefits of further testing or admission. They will be made aware of of the risk/benefits inherent in this decision they will be given the opportunity to voice understanding. Consults: None Lab Data Attestation: I reviewed the patient's lab results. Lab results narrative: EKG with normal sinus rhythm, left axis deviation, normal intervals, no STEMI CBC with leukocytosis suggestive of systemic inflammation, no anemia or thrombocytopenia noted BMP without evidence of significant electrolyte abnormalities, no anion gap, no acute kidney injury. Troponin is negative, no evidence of myocardial ischemia BNP within normal limits suggestive of no volume overload, increased transmural wall pressure or ventricular stretch COVID, flu negative Labs: Laboratory Results - last 24 hr 12/12/22 12/12/22 12/12/22 18:37 18:37 18:37 WBC 12.8 H RBC 4.41 Hgb 12.5 Hct 39.1 MCV 88.7 MCH 28.3 MCHC 32.0 RDW Std Deviation 43.0 RDW Coeff of Janey 13.3 Plt Count 297 MPV 8.3 Immature Gran % (Auto) 1.200 H Neut % (Auto) 86.9 H Lymph % (Auto) 8.6 L [place] % (Auto) 3.1 Eos % (Auto) 0.0 Baso % (Auto) 0.2 Absolute Neuts (auto) 11.1 H Absolute Lymphs (auto) 1.10 Nucleated RBC % 0 Sodium 139 Potassium 4.1 Chloride 105 Carbon Dioxide 27.0 Anion Gap 7 BUN 19 H Creatinine 0.97 Estim Creat Clear Calc 42.47 Est GFR (MDRD) Af Amer 74 Est GFR (MDRD) Non-Af 61 BUN/Creatinine Ratio 19.6 Glucose 149 H Calcium 8.9 Troponin I High Sens 11 B-Natriuretic Peptide 98.8 Radiography Diagnostic Testing: Clinical Impression(s) from Imaging Studies Venous Duplex 12/12/22 19:07 IMPRESSION: No sonographic evidence of deep venous thrombosis. Electronically Signed: Blas Woodruff MD at 20:03 EDT , Chest CTA 12/12/22 19:40 IMPRESSION: No pulmonary embolism or aortic dissection. Electronically Signed: Blas Woodruff MD at 20:22 EDT , Discharge Plan Triage Chief Complaint: Lower Extremity Injury ED Provider: Kartik Roe Dx/Rx/DC Orders Clinical Impression: SOB (shortness of breath), Leg swelling Instructions: ED Dyspnea Prescriptions: No Action omeprazole 20 MG capsule 20 mg PO DAILY melatonin 3 mg Tablet 3 mg PO QHS aripiprazole 5 mg tablet 5 mg PO DAILY calcium carbonate-vitamin D3 600 mg-10 mcg (400 unit) tablet 1 tab PO DAILY acetaminophen 500 mg Tablet 1,000 mg PO Q6H PRN PRN (Reason: Pain Score 1-10) Qty: 0 0RF citalopram 20 mg Tablet 20 mg PO DAILY 30 Days Qty: 30 0RF metoprolol succinate 25 mg tablet extended release 24 hr 25 mg PO DAILY Qty: 90 3RF Primary Care Provider: Mauro Hastings Referrals: Mauro Hastings MD [Primary Care Provider] - Activity Restrictions/Additional Instructions: Thank you for trusting us with your care today! Please take Tylenol (2 pills, 650 mg), ibuprofen (2 pills, 400 mg) every 6 hours as needed for pain and fever control. Please return to the emergency department if your symptoms change or worsen. Specifically if you develop worsening chest pain, shortness of breath, you lose consciousness. Please return if you develop worsening swelling in your lower extremities. Please follow your primary care physician for outpatient eval uation and further treatment. Please follow with your primary care physician for further outpatient evaluation and management. Disposition Disposition: Home, Self Care
[2022-12-12 18:44] LABS: Absolute Neutrophil Count 11.1 X10^3/uL (2.0-7.7); Basophil# 0.03 X10^3/uL; Basophil% 0.2 % (0-1); Hematocrit 39.1 % (37-47); Hemoglobin 12.5 g/dL (12.0-15.0); Lymphocyte % 8.6 % (19-41); Mean Corpuscular Hgb 28.3 pg (27.0-32.0); Mean Corpuscular Volume 88.7 fL (81-99); Mean Platelet Vol. 8.3 fl (6.2-12.0); Monocyte% 3.1 % (0-10); NRBC Flagged by Analyzer 0 % (0-5); Neutrophil # 11.12 X10^3/uL (2.7-7.7); Neutrophil % 86.9 % (47-70); Platelet Count 297 K/mm3 (150-450); RBC Distribution Width CV 13.3 % (11.6-14.6); Red Blood Count 4.41 M/mm3 (4.2-5.4); White Blood Count 12.8 K/mm3 (4.4-11.0)
[2022-12-12 19:06] LABS: BNP,B-Type NATRIURETIC PEPTIDE 98.8 pg/mL (0-100)
--- NOTE | 2022-12-12 19:07 | US_ITS ---
INDICATION: RIGHT UPPER POSTERIOR CALF PAIN EXAMINATION: Ultrasound Venous Duplex LE Unilat / Limited TECHNIQUE: Meza scale, pulse wave, and color flow Doppler imaging was performed of the lower extremity venous system. The RIGHT greater saphenous, common femoral, femoral, and popliteal veins were interrogated. COMPARISON: None. FINDINGS: There is normal compression, augmentation, and signal throughout the visualized deep lower extremity veins. No mass or fluid collection. US/Venous Duplex Imag/Limited/Uni IMPRESSION: No sonographic evidence of deep venous thrombosis. Electronically Signed: Blas Woodruff MD at 20:03 EDT ,
[2022-12-12 19:10] LABS: Anion Gap 7 (5-15); BUN 19 mg/dL (7-18); BUN/Creat Ratio 19.6 RATIO (10-20); Calcium,Total 8.9 mg/dL (8.5-10.1); Chloride 105 mmol/L (98-107); Creatinine, Serum 0.97 mg/dL (0.55-1.02); EST Glomerular Filtration Rate 61 mL/min (>60); Est Glom Filt Rate - Afr Amer 74 mL/min (>60); Estimated Creatinine Clearance 42.47 ml/min; Glucose 149 mg/dL (74-106); Potassium 4.1 mmol/L (3.5-5.1); Sodium Level 139 mmol/L (136-145); Troponin-I HS 11 pg/mL (3.0-54.0)
--- NOTE | 2022-12-12 19:40 | CT_ITS ---
STUDY: CTA CHEST REASON FOR EXAM: Female, 67 years old. Shortness of breath, elevated D-dimer RADIATION DOSAGE (If Supplied By Facility): CTDIvol = ( 12.65 ) mGy, DLP = ( 544.85 ) mGycm TECHNIQUE: The examination was performed with the intravenous administration of IV 100mL [id number]-370. Post-processing of the angiographic images was performed, with multiplanar reformation and 3D reconstruction. Individualized dose optimization techniques were used for this CT. COMPARISON: CTA chest exam October 24, 2018. Lower extremity ultrasound December 12, 2022. Chest x-ray April 13, 2022 FINDINGS: Normal enhancement of the main pulmonary artery and right and left pulmonary arteries. Normal enhancement of the bilateral peripheral pulmonary arteries. There is no demonstrated pulmonary embolism. Ectasia of the ascending aorta, 3.9 cm diameter. This appearance is stable. Great vessel origins are patent. There is tortuosity of the great vessels suggesting systemic hypertension. Tortuosity of the descending thoracic aorta. No dissection. Mild atherosclerotic calcification of the thoracic aorta. Normal heart size. No pericardial effusion. No significant coronary artery calcification. No focal airspace disease. No pleural effusion or pneumothorax. Normal thyroid gland. No mediastinal or hilar adenopathy. Small hiatal hernia. Trachea and esophagus are unremarkable. No acute abnormality in the visualized upper abdomen. Cholecystectomy. Mild degenerative changes of the thoracic spine. No acute osseous injury. CT/CTA Chest W/WO Contrast IMPRESSION: No pulmonary embolism or aortic dissection. Electronically Signed: Blas Woodruff MD at 20:22 EDT ,
[2022-12-12 21:06] VITALS: PULSE 73; RESP 15; O2SAT 94
[2022-12-12 21:48] VITALS: PULSE 73; RESP 19; O2SAT 96
== END 2022-12-13 00:01 | disposition home or self-care (01) ==
PROVIDERS: Emergency Provider Emergency Medicine; PCP Family Medicine; Visit Provider Emergency Medicine
DX: R06.02 Shortness of breath (principal); M79.89 Other specified soft tissue disorders; I10 Essential (primary) hypertension; Z87.891 Personal history of nicotine dependence; E78.00 Pure hypercholesterolemia, unspecified
CPT/HCPCS: 71275; 80048; 83880; 84484; 85025; 87428; 93005; 93971; 99285; Q9967; A4216

== ENCOUNTER → 2022-12-12 | Outpatient (CLI) | payer MEDICARE, MEDICAID, SELFPAY ==
[2022-12-12 16:35] LABS: D-Dimer Quantitative (DVT/PE) 1.89 FEU/ug/m (0.27-0.49)
== END | disposition home or self-care (01) ==
PROVIDERS: PCP Family Medicine; Visit Provider Family Medicine
DX: M79.604 Pain in right leg (principal); R60.9 Edema, unspecified
CPT/HCPCS: 85379

== ENCOUNTER 2023-02-04 05:03 | Inpatient (IN) | payer MEDICARE, MEDICAID, SELFPAY ==
[2023-02-04 05:04] VITALS: BP 170/106; PULSE 103; RESP 18; TEMP 36.8; O2SAT 96; BMI 46.9
--- NOTE | 2023-02-04 05:31 | EDS_ITS ---
HPI History of Present Illness Chief Complaint: Abd Pain Informant: patient and EMS Narrative Narrative: Patient is a 67-year-old female from home with past medical history of anxiety and depression as well as hypertension hyperlipidemia. She states roughly 6 mon ths ago she was diagnosed with giant cell arteritis and started on low-dose prednisone. She states in the last 10 days she had her prednisone increased to 60 mg a day. She states this is the only new medication that she has been taking compared to her baseline meds. She states that she also mid upper abdominal pain last evening and does have a history of pancreatitis and is concerned for this once again. She also states that she has had trace amount of blood in her urine and is also concerned about a UTI. Secondary to these concerns she called EMS and she was brought in for evaluation [facility] Medical History Acute recurrent pancreatitis Anemia Chronic pain Colon polyps Depression Essential hypertension Former smoker GCA (giant cell arteritis) GERD (gastroesophageal reflux disease) Lung nodules Morbid obesity Multiple thyroid nodules Obesity Osteoarthritis Osteoporosis Pancreatitis Poor dentition Pure hypercholesterolemia Thoracic aortic aneurysm without rupture Home Medications omeprazole 20 mg capsule,delayed release 20 mg PO DAILY gerd 10/25/16 [History Last Taken 10/16/21] calcium carbonate 600 mg-vitamin D3 10 mcg (400 unit) tablet 1 tab PO DAILY SUPPLEMENT 10/16/21 [History Last Taken 10/16/21] acetaminophen 500 mg tablet 1,000 mg PO Q6H PRN PRN Pain Score 1-10 #0 tabs 11/01/21 [Rx Last Taken Unknown] metoprolol succinate 25 mg tablet,extended release 24 hr 25 mg PO DAILY bp #90 tabs 01/08/23 [Rx Last Taken Unknown] bupropion HCl 150 mg 24 hr tablet, extended release 150 mg PO DAILY 02/04/23 [History Last Taken Unknown] prednisone 20 mg tablet 60 mg PO DAILY 02/04/23 [History Last Taken Unknown] sertraline 50 mg tablet 50 mg PO DAILY 02/04/23 [History Last Taken Unknown] tocilizumab 162 mg/0.9 mL subcutaneous pen injector (Actemra ACTPen) 162 mg subcut QWEEK 02/04/23 [History Last Taken Unknown] Allergy/AdvReac Type Severity Reaction Status Date / Time No Known Allergies Allergy Verified 02/04/23 05:09 Family History Mother Colon cancer Father Cancer Lung Sister Breast cancer Brother Cancer Lung Surgical History History of carpal tunnel surgery History of cholecystectomy History of total hysterectomy Social History household members: none Smoking Status: Former smoker alcohol intake: never substance use type: does not use caffeine: Yes Type: coffee Number of servings: 2 ROS ROS ED Constitutional Constitutional ED: Denies chills or fever(s) ENT ENT ED: Denies sore throat Cardiovascular Cardiovascular: Denies chest pain Respiratory/Chest Respiratory/Chest: Denies cough or dyspnea Gastrointestinal Gastrointestinal: Reports abdominal pain, nausea and vomiting; Denies diarrhea Genitourinary Genitourinary ED: Reports dysuria, hematuria and urinary frequency Musculoskeletal Musculoskeletal: Denies back pain or myalgias Integumentary Denies rash Neurologic Neurologic: Denies headache(s) Psychiatric Psychiatric: Reports anxiety and depression Hematologic/Lymphatic Hematologic/Lymphatic: Denies easy bleeding or easy bruising EXAM Physical Exam Const Vital Signs: 02/04/23 05:04 02/04/23 07:04 Temperature 98.3 F Temperature Source Temporal Pulse Rate 103 H 81 Respiratory Rate 18 16 Blood Pressure 170/106 H 161/96 H Blood Pressure Mean 127 117 Pulse Ox 96 97 Oxygen Delivery Method Room Air Positive well nourished, well developed and obese General Appearance ED: well developed Nutritional Appearance: obese HEENT Reports moist mucous membranes HEENT Narrative: No signs of infection in the posterior pharynx no airway edema or compromise Eyes PERRL and EOMs intact bilaterally Neck supple Resp normal respiratory effort and clear to auscultation bilaterally Cardio regular rhythm Rate: tachycardic and other Other Details: Radial pulses are plus 2 out of 4 bilaterally are equal and symmetric GI non-distended and no masses GI Narrative: Mild tenderness to palpation in the midepigastric region without voluntary guarding or rigidity. No pulsatile mass or fluid wave. Auscultation: normoactive bowel sounds Palpation: soft Back/Spine no CVA tenderness Extremity normal to inspection Neuro oriented x3 and CN's II-XII intact bilaterally Sensorium / Orientation: alert Psych Psych Narrative: Patient has a nervous/anxious affect Skin no rashes or lesions noted General Skin Exam: Negative for jaundice MDM MDM MDM Narrative Medical decision making narrative: Patient presented to the ER mildly hypertensive otherwise with stable vitals and she does have a past medical history of this and is in pains this is not unexpected. She does have a history of previous pancreatitis and her pain is in the midepigastric region concerning for this. However she is also reported some dysuria and hematuria concerning for UTI versus kidney stone. Her abdomen was soft and nonsurgical so I elected to start with basic laboratory studies. Patient's white count is drastically elevated at 29.9 but she has been on 60 mg of prednisone/steroid daily for almost 2 weeks which could account for the high elevation to her white blood cell count. The patient's lactic is also elevated at 3.5 and her creatinine which normally has a baseline of 0.9 is now elevated at 1.9. Indicating acute kidney injury which could be related from a possible kidney stone based on her history of hematuria and abdominal pain. Based on her JUDE and creatinine clearance of 21 I cannot provide IV contrast and therefore I will get a noncontrast CT of her abdomen and pelvis looking for pancreatic inflammation as well as possible kidney stone. The patient was treated with IV fluids given 2 L. She is also medicated with morphine and Zofran Pepcid and a GI cocktail and has had improvement of pain. The patient is urine did show signs of infection therefore sent for culture and she was started on Rocephin. CT scan did show inflammation around the pancreas consistent with acute pancreatitis and this correlates with her elevated lipase and location of pain. At this time based on her UTI and acute pancreatitis she will be admitted to the hospital for further care. Secondary to this the case was discussed with the hospitalist who does agree to accept the patient at this time. History & Record Review Discussion w/independent historian: EMS personnel and Patient Lab Data Attestation: I reviewed the patient's lab results. Labs: Laboratory Results - last 24 hr 02/04/23 02/04/23 02/04/23 05:15 05:15 05:15 WBC 29.9 H RBC 4.70 Hgb 13.1 Hct 40.4 MCV 86.0 MCH 27.9 MCHC 32.4 RDW Std Deviation 38.8 RDW Coeff of Janey 12.5 Plt Count 384 MPV 9.0 Immature Gran % (Auto) 1.600 H Neut % (Auto) 84.0 H Lymph % (Auto) 5.8 L [place] % (Auto) 8.3 Eos % (Auto) 0.0 Baso % (Auto) 0.3 Absolute Neuts (auto) 25.1 H Absolute Lymphs (auto) 1.72 Nucleated RBC % 0 Diff Path Review May foll ESR 24 Sodium 142 Potassium 3.6 Chloride 110 H Carbon Dioxide 19.0 L Anion Gap 13 BUN 40 H Creatinine 1.88 H Estim Creat Clear Calc 21.91 Est GFR (MDRD) Af Amer 34 L Est GFR (MDRD) Non-Af 28 L BUN/Creatinine Ratio 21.3 H Glucose 127 H Lactic Acid 3.5 H* Calcium 9.1 Total Bilirubin 1.50 H Direct Bilirubin 0.28 AST 36 ALT 30 Alkaline Phosphatase 71 C-React Prot Ext Range 9.46 H Total Protein 6.9 Albumin 3.7 Globulin 3.2 Lipase 565 H Urine Color Urine Clarity Urine pH Ur Specific [place] Urine Protein Urine Glucose (UA) Urine Ketones Urine Occult Blood Urine Nitrite Urine Bilirubin Urine Urobilinogen Ur Leukocyte Esterase Urine RBC Urine WBC Ur Squamous Epith Cells Urine Bacteria Hyaline Casts Urine Mucus 02/04/23 05:45 WBC RBC Hgb Hct MCV MCH MCHC RDW Std Deviation RDW Coeff of Janey Plt Count MPV Immature Gran % (Auto) Neut % (Auto) Lymph % (Auto) [place] % (Auto) Eos % (Auto) Baso % (Auto) Absolute Neuts (auto) Absolute Lymphs (auto) Nucleated RBC % Diff Path Review ESR Sodium Potassium Chloride Carbon Dioxide Anion Gap BUN Creatinine Estim Creat Clear Calc Est GFR (MDRD) Af Amer Est GFR (MDRD) Non-Af BUN/Creatinine Ratio Glucose Lactic Acid Calcium Total Bilirubin Direct Bilirubin AST ALT Alkaline Phosphatase C-React Prot Ext Range Total Protein Albumin Globulin Lipase Urine Color Yellow Urine Clarity Clear Urine pH 5.0 Ur Specific [place] 1.030 Urine Protein 30 H Urine Glucose (UA) Normal Urine Ketones 5 H Urine Occult Blood 25 H Urine Nitrite Positive H Urine Bilirubin 1 H Urine Urobilinogen 4 H Ur Leukocyte Esterase 100 H Urine RBC 0-5 SEEN Urine WBC 10-25 SEEN Ur Squamous Epith Cells 0-5 SEEN Urine Bacteria 1+ Hyaline Casts 10-25 SEEN Urine Mucus 0 SEEN Radiography Diagnostic Testing: Clinical Impression(s) from Imaging Studies Abdomen/Pelvis CT 02/04/23 06:30 IMPRESSION: Peripancreatic inflammatory changes, correlate for acute on chronic pancreatitis. Additional chronic changes as above. Electronically Signed: Bhanu Grant MD at 7:26 EDT , Management Discussion w/another healthcare provider: Hospitalist Discharge Plan Triage Chief Complaint: Abd Pain ED Provider: Navneet Anthony Dx/Rx/DC Orders Clinical Impression: Acute kidney injury, GCA (giant cell arteritis), UTI (urinary tract infection), Acute pancreatitis Prescriptions: No Action omeprazole 20 MG capsule 20 mg PO DAILY calcium carbonate-vitamin D3 600 mg-10 mcg (400 unit) tablet 1 tab PO DAILY acetaminophen 500 mg Tablet 1,000 mg PO Q6H PRN PRN (Reason: Pain Score 1-10) Qty: 0 0RF prednisone 20 mg tablet 60 mg PO DAILY sertraline 50 mg tablet 50 mg PO DAILY bupropion HCl 150 mg tablet extended release 24 hr 150 mg PO DAILY Actemra ACTPen 162 mg/0.9 mL pen injector 162 mg SUBCUT QWEEK metoprolol succinate 25 mg tablet extended release 24 hr 25 mg PO DAILY Qty: 90 3RF Primary Care Provider: Mauro Hastings Referrals: Mauro Hastings MD [Primary Care Provider] - Disposition Disposition: Acute Care Hospital [facility]
[2023-02-04] MEDS: 0.9% Normal Saline 1,000 ML 999 ML IV ×2 (05:34→06:37)
[2023-02-04] MEDS: Ondansetron 4 MG/2 ML Vial IV ×2 (05:34→14:03)
[2023-02-04] MEDS: Morphine 4 MG/ML Syringe IV ×2 (05:34→13:24)
[2023-02-04] MEDS: Famotidine 200 MG/20 ML MDV 20 MG in 0.9% Normal Saline (Pres. free 8 ML 300 MG IV (05:36)
[2023-02-04] MEDS: Mag Hydrox/Al Hydrox/Simeth 30 ML UDC PO (05:37)
[2023-02-04 05:52] LABS: Absolute Lymphocyte Count 1.72 X10^3/uL (0.83-4.51); Absolute Neutrophil Count 25.1 X10^3/uL (2.0-7.7); Basophil% 0.3 % (0-1); Hematocrit 40.4 % (37-47); Hemoglobin 13.1 g/dL (12.0-15.0); Lymphocyte # 1.72 X10^3/ul (0.83-4.51); Lymphocyte % 5.8 % (19-41); Mean Corp Hgb Conc 32.4 g/dL (32-36); Mean Corpuscular Hgb 27.9 pg (27.0-32.0); Monocyte# 2.49 X10^3/uL; Monocyte% 8.3 % (0-10); NRBC Flagged by Analyzer 0 % (0-5); Neutrophil # 25.06 X10^3/uL (2.7-7.7); POSITIVE DIFFERENTIAL YES; Platelet Count 384 K/mm3 (150-450); RBC Distribution Width CV 12.5 % (11.6-14.6); RBC Distribution Width SD 38.8 fl (35.1-43.9); White Blood Count 29.9 K/mm3 (4.4-11.0)
[2023-02-04 05:58] LABS: Mucous, Urine 0 SEEN /hpf (<or=2+)
[2023-02-04 06:21] LABS: Differential Indicated SCAN CRITERIA MET
[2023-02-04 06:24] LABS: AST(SGOT) 36 U/L (15-37); Alanine Aminotransfer ALT/SGPT 30 U/L (13-56); Albumin, Serum 3.7 g/dL (3.2-5.0); Alkaline Phosphatase 71 U/L (45-117); Anion Gap 13 (5-15); BUN 40 mg/dL (7-18); BUN/Creat Ratio 21.3 RATIO (10-20); Bilirubin, Direct 0.28 mg/dL (0.00-0.30); CRP 9.46 mg/L (0.0-3.0); Calcium,Total 9.1 mg/dL (8.5-10.1); Chloride 110 mmol/L (98-107); Creatinine, Serum 1.88 mg/dL (0.55-1.02); EST Glomerular Filtration Rate 28 mL/min (>60); Est Glom Filt Rate - Afr Amer 34 mL/min (>60); Estimated Creatinine Clearance 21.91 ml/min; Globulin 3.2 g/dL (2.2-4.2); Glucose 127 mg/dL (74-106); Lipase 565 U/L (13-75); Potassium 3.6 mmol/L (3.5-5.1); Protein, Total 6.9 g/dL (6.4-8.2); Sodium Level 142 mmol/L (136-145)
[2023-02-04 06:25] LABS: Lactic Acid 3.5 mmol/L (0.4-1.9)
[2023-02-04 06:26] LABS: Color, Urine Yellow (Yellow); Glucose, Dipstick Normal (Normal); Ketone-Dipstick 5 mg/dl (Negative); Leukocyte Esterase-Dipstick 100 /ul (Negative); Nitrite-Dipstick Positive (Negative); Occult Blood-Urine 25 /ul (Negative); Protein-Dipstick 30 mg/dl (Negative); Urine Clarity Clear (Clear); Urine Urobilinogen 4 mg/dl (Normal)
[2023-02-04 06:29] LABS: Erythrocyte Sedimentation Rate 24 mm/hr (0-30)
--- NOTE | 2023-02-04 06:30 | CT_ITS ---
INDICATION: abd pain EXAMINATION: CT ABDOMEN AND PELVIS WITHOUT CONTRAST - CT Abdomen And Pelvis W/O Contrast Injection TECHNIQUE: Helically acquired images were obtained of the abdomen and pelvis without oral or IV contrast. A radiation dose optimization technique was used for this scan. IV Contrast dosage and agent: None. Oral contrast: None. RADIATION DOSAGE (If Supplied By Facility): CTDIvol = ( 22.70 ) mGy, DLP = ( 1094.45 ) mGycm COMPARISON: CT abdomen and pelvis 10/18/2020 FINDINGS: LOWER CHEST: 3 mm pulmonary nodule in the medial right lower lobe, similar compared to the prior.. LIVER: Coarse calcifications in the liver, likely sequela of prior granulomatous disease.. GALLBLADDER/BILE DUCTS: Not visualized, may be surgically absent.. PANCREAS: Coarse calcifications in the atrophic pancreas, may represent vascular calcifications or chronic pancreatitis. Mild peripancreatic fat stranding. SPLEEN: Normal. ADRENAL GLANDS: Normal. KIDNEYS/URETERS/BLADDER: Normal. RETROPERITONEUM/AORTA: Mild atherosclerotic calcifications. BOWEL/MESENTERY: No bowel dilatation or bowel wall thickening. There are a few scattered colonic diverticula, no evidence of acute diverticulitis. APPENDIX: Identified and normal. PERITONEUM: Normal. REPRODUCTIVE ORGANS: Status post hysterectomy. BONES/SOFT TISSUES: No acute abnormality. OTHER: Small fat-containing umbilical hernia. CT/Abdomen/Pelvis without Cont IMPRESSION: Peripancreatic inflammatory changes, correlate for acute on chronic pancreatitis. Additional chronic changes as above. Electronically Signed: Bhanu Grant MD at 7:26 EDT ,
[2023-02-04 06:46] LABS: Urine Bilirubin Dipstick 1 mg/dL (Negative)
[2023-02-04 06:48] LABS: Bacteria 1+ /hpf (None Seen); Hyaline Cast 10-25 SEEN /lpf (0-5); Red Blood Cells-Urine 0-5 SEEN /hpf (0-5); Squamous Epithelial Cells - UA 0-5 SEEN /hpf (5-10); White Blood Cells 10-25 SEEN /hpf (0-5)
[2023-02-04 07:04] VITALS: BP 161/96; PULSE 81; RESP 16; O2SAT 97
[2023-02-04] MEDS: Ceftriaxone 1 GM/50 ML BAG IV (07:04)
--- NOTE | 2023-02-04 07:41 | NURSING ---
DR GOMES FOR DR LIZAMA
[2023-02-04 07:47] VITALS: BP 180/85; PULSE 79; RESP 16; TEMP 36.8; O2SAT 95
--- NOTE | 2023-02-04 07:56 | NURSING ---
MED SURG [place] ACUTE PANCREATITIS AND UTI
[2023-02-04 08:33] VITALS: BMI 47.8
[2023-02-04 08:34] VITALS: BP 157/81; PULSE 76; RESP 18; TEMP 36.9; O2SAT 97
--- NOTE | 2023-02-04 08:51 | NURSING ---
pt refused family be notified for admission. 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 Dr. Shine contacted requesting ordering PT/OT as pt states increased weakness at home.
[2023-02-04] MEDS: 0.9% Saline Lock 10 ML Syringe IV ×2 (08:53→14:03)
[2023-02-04] MEDS: 0.9% Normal Saline 1,000 ML 150 ML IV ×2 (08:53→17:46)
--- NOTE | 2023-02-04 09:09 | NURSING ---
talked with Dr. Hastings's nurse requesting home med list, she states they are currently having house wide computer issues but if are able will fax a list.
[2023-02-04 09:11] LABS: Cholesterol 281 mg/dL (200); High Density Lipoprotein 75 mg/dL; Triglycerides 181 mg/dL; Very Low Density Lipoprotein 36 mg/dL (5-40)
[2023-02-04] MEDS: Morphine 2 MG/ML Syringe IV (09:14)
[2023-02-04 09:38] LABS: Reflex Lactate? Y
[2023-02-04 10:29] LABS: Lactic Acid 1.7 mmol/L (0.4-1.9)
[2023-02-04 13:03] LABS: Pathologist Review Reviewed
--- NOTE | 2023-02-04 13:11 | MRI_ITS ---
INDICATION: Chronic Pancreatitis EXAMINATION: MRI - MR MRCP W/O Contrast TECHNIQUE: Multiplanar and multisequence MR images of the abdomen were obtained with MRCP sequence. Three-dimensional post-processing reconstructions were performed. IV Contrast Dosage and Agent: None. COMPARISON: CT abdomen and pelvis 02/04/2023, MRI 05/21/2019 FINDINGS: LIVER: No mass. Normal morphology. GALLBLADDER AND BILIARY TREE: Gallbladder not seen. The CBD measures 5 mm. No intra- or extrahepatic biliary dilation. No choledochal filling defect. PANCREAS: No mass. No pancreatic duct dilation. Mild peripancreatic fatty edema. SPLEEN: Non-enlarged. ADRENAL GLANDS: No nodules. KIDNEYS: Normal renal size and position. No hydronephrosis. No mass. LYMPH NODES: No enlarged periportal or retroperitoneal lymph nodes. PERITONEUM: No ascites or fluid collection. VESSELS: Aorta is non-dilated. LOWER CHEST: No pleural effusion. MRI/MRCP Abdomen without Contrast IMPRESSION: No biliary dilation or choledocholithiasis. Postcholecystectomy changes. Mild peripancreatic fatty edema consistent with pancreatitis. Electronically Signed: Isaac May MD at 18:46 EDT ,
--- NOTE | 2023-02-04 13:27 | HP.PCM.HOS_ITS ---
HPI - General General Date of Admission: 02/04/23 HPI Narrative AUGUSTINE PENA, is a 67 F who presents to the hospital with epigastric abdominal pain that started yesterday. She says prior to this she is been fine in regards to any abdominal pain. She denies any significant fevers or chills but she has noticed some blood in her urine. In the ER she was found to have a UTI based on the UA and was given a dose of Rocephin. CT scan and lipase demonstrates pancreatitis with the calcifications present indicating probable chronic pancreatitis. Of note about 6 months ago she was diagnosed with giant cell arteritis and is on both prednisone and tocilizumab. [facility] Medical History (Updated 02/04/23 @ 08:45 by Zoey Goel) Acute recurrent pancreatitis Anemia Anxiety Chronic pain Colon polyps Depression Essential hypertension Former smoker GCA (giant cell arteritis) GERD (gastroesophageal reflux disease) Lung nodules Morbid obesity Multiple thyroid nodules Obesity Osteoarthritis Osteoporosis Pancreatitis Poor dentition Pure hypercholesterolemia Thoracic aortic aneurysm without rupture Vision changes Home Medications omeprazole 20 mg capsule,delayed release 20 mg PO DAILY gerd 10/25/16 [History Last Taken 10/16/21] calcium carbonate 600 mg-vitamin D3 10 mcg (400 unit) tablet 1 tab PO DAILY SUPPLEMENT 10/16/21 [History Last Taken 10/16/21] acetaminophen 500 mg tablet 1,000 mg PO Q6H PRN PRN Pain Score 1-10 #0 tabs 11/01/21 [Rx Last Taken Unknown] metoprolol succinate 25 mg tablet,extended release 24 hr 25 mg PO DAILY bp #90 tabs 01/08/23 [Rx Last Taken Unknown] aripiprazole 5 mg tablet 5 mg PO DAILY Check with primary doctor 02/04/23 [History Last Taken Unknown] benzonatate 100 mg capsule 100 mg PO TID PRN Cough 02/04/23 [History Last Taken Unknown] bupropion HCl 150 mg 24 hr tablet, extended release 150 mg PO DAILY 02/04/23 [History Last Taken Unknown] citalopram 20 mg tablet (Celexa) 20 mg PO DAILY Check with primary doctor 02/04/23 [History Last Taken Unknown] ergocalciferol (vitamin D2) 1,250 mcg (50,000 unit) capsule 1,250 mcg PO QWEEK Check with primary doctor 02/04/23 [History Last Taken Unknown] lorazepam 0.5 mg tablet 0.5 mg PO DAILY PRN Anxiety 02/04/23 [History Last Taken Unknown] melatonin 3 mg tablet 3 mg PO QHS Check with primary doctor 02/04/23 [History Last Taken Unknown] nystatin 100,000 unit/gram topical cream 1 applic topical BID Check with primary doctor 02/04/23 [History Last Taken Unknown] prednisone 20 mg tablet 60 mg PO DAILY 02/04/23 [History Last Taken Unknown] psyllium husk 3.4 gram/5.4 gram oral powder (Metamucil) 1 tbsp PO DAILY Check with primary doctor 02/04/23 [History Last Taken Unknown] quetiapine 50 mg tablet (Seroquel) 50 mg PO QHS Check with primary doctor 02/04/23 [History Last Taken Unknown] sertraline 50 mg tablet 50 mg PO DAILY 02/04/23 [History Last Taken Unknown] tocilizumab 162 mg/0.9 mL subcutaneous pen injector (Actemra ACTPen) 162 mg subcut QWEEK Check with primary doctor 02/04/23 [History Last Taken Unknown] Allergy/AdvReac Type Severity Reaction Status Date / Time No Known Allergies Allergy Verified 02/04/23 05:09 Family History Mother Colon cancer Father Cancer Lung Sister Breast cancer Brother Cancer Lung Surgical History History of carpal tunnel surgery History of cholecystectomy History of total hysterectomy Social History household members: none Smoking Status: Former smoker alcohol intake: never substance use type: does not use caffeine: Yes Type: coffee Number of servings: 2 ROS Constitutional Constitutional: Denies chills, fatigue, fever(s) or malaise Eyes Eyes: Denies blurry vision ENT HEENT: Denies headache(s) or nasal discharge Cardiovascular Cardiovascular: Denies chest pain, dyspnea on exertion or syncope Respiratory/Chest Respiratory/Chest: Denies cough, shortness of breath at rest or shortness of breath with exertion Gastrointestinal Gastrointestinal: Reports abdominal pain, nausea and vomiting; Denies constipation or diarrhea Genitourinary Genitourinary: Reports burning urination and dysuria Neurologic Neurologic: Denies focal weakness, numbness or tremor(s) Psychiatric Psychiatric: Denies anxiety or depression Vital Signs Vital Signs Vital Signs: 02/04/23 05:04 02/04/23 07:04 02/04/23 07:47 Temperature 98.3 F 98.2 F Temperature Source Temporal Temporal Pulse Rate 103 H 81 79 Respiratory Rate 18 16 16 Blood Pressure 170/106 H 161/96 H 180/85 H Blood Pressure Mean 127 117 116 Blood Pressure Source Blood Pressure Position Blood Pressure Location Pulse Ox 96 97 95 Oxygen Delivery Method Room Air Room Air Oxygen Flow Rate (L/min) 02/04/23 08:34 Temperature 98.5 F Temperature Source Oral Pulse Rate 76 Respiratory Rate 18 Blood Pressure 157/81 H Blood Pressure Mean 106 Blood Pressure Source Monitor Blood Pressure Position Semi-Fowlers Blood Pressure Location Right Arm Pulse Ox 97 Oxygen Delivery Method Nasal Cannula Oxygen Flow Rate (L/min) 2 Weight Weight: 253 lb 6.4 oz Body Mass Index (BMI) 47.8 Physical Exam Narrative General: Alert, Oriented x3, Cooperative, No apparent distress HEENT: Atraumatic, PERRLA, EOMI, Normocephalic Oral: Moist Mucosa Neck: Supple, No JVD Lungs: Diminished, Normal air movement, No rhonchi, No wheeze, No rales Cardiovascular: Regular rate, Regular Rhythm, Normal S1, Normal S2, No murmurs Abdomen: Soft, mild epigastric tenderness, Non-Distended, No Hepato-splenomegaly Extremities: No edema, Capillary Refill Less than 3 Seconds Skin: No rashes, No breakdown Musculoskeletal: No Tenderness to Palpation of Joints or Extremities Neurological: Cranial nerves II-XII grossly intact, Motor Exam 5/5 strength th roughout, Sensory exam intact to light touch and pain Psych/Mental Status: Flat affect Results Lab / Micro Data Result Diagrams: 02/04/23 05:15 02/04/23 05:15 Labs: Laboratory Results - last 24 hr 02/04/23 05:15: WBC 29.9 H, RBC 4.70, Hgb 13.1, Hct 40.4, MCV 86.0, MCH 27.9, MCHC 32.4, RDW Std Deviation 38.8, RDW Coeff of Janey 12.5, Plt Count 384, MPV 9.0, Immature Gran % (Auto) 1.600 H, Neut % (Auto) 84.0 H, Lymph % (Auto) 5.8 L, Emanuel % (Auto) 8.3, Eos % (Auto) 0.0, Baso % (Auto) 0.3, Absolute Neuts (auto) 25.1 H, Absolute Lymphs (auto) 1.72, Nucleated RBC % 0, Diff Path Review Rev iewed, ESR 24 02/04/23 05:15: Sodium 142, Potassium 3.6, Chloride 110 H, Carbon Dioxide 19.0 L , Anion Gap 13, BUN 40 H, Creatinine 1.88 H, Estim Creat Clear Calc 21.91, Est GFR (MDRD) Af Amer 34 L, Est GFR (MDRD) Non-Af 28 L, BUN/Creatinine Ratio 21.3 H , Glucose 127 H, Calcium 9.1, Total Bilirubin 1.50 H, Direct Bilirubin 0.28, AST 36, ALT 30, Alkaline Phosphatase 71, C-React Prot Ext Range 9.46 H, Total Protein 6.9, Albumin 3.7, Globulin 3.2, Lipase 565 H 02/04/23 05:15: Lactic Acid 3.5 H* 02/04/23 05:15: Triglycerides 181, Cholesterol 281 H, LDL Cholesterol 170 H, VLDL Cholesterol 36, HDL Cholesterol 75 02/04/23 05:45: Urine Color Yellow, Urine Clarity Clear, Urine pH 5.0, Ur Specific [place] 1.030, Urine Protein 30 H, Urine Glucose (UA) Normal, Urine Ketones 5 H, Urine Occult Blood 25 H, Urine Nitrite Positive H, Urine Bilirubin 1 H, Urine Urobilinogen 4 H, Ur Leukocyte Esterase 100 H, Urine RBC 0-5 SEEN, Urine WBC 10-25 SEEN, Ur Squamous Epith Cells 0-5 SEEN, Urine Bacteria 1+, Hyaline Casts 10-25 SEEN, Urine Mucus 0 SEEN 02/04/23 09:50: Lactic Acid 1.7 Radiology Impression Abdomen/Pelvis CT 02/04/23 06:30 IMPRESSION: Peripancreatic inflammatory changes, correlate for acute on chronic pancreatitis. Additional chronic changes as above. Electronically Signed: Bhanu Grant MD at 7:26 EDT , Assessment & Plan Assessment/Plan (1) Acute pancreatitis: PLAN: Plan 1. Acute pancreatitis/JUDE ? Unclear at the moment as the etiology, she does have signs of chronic pancreatitis ? She is status postcholecystectomy so stone is unlikely ? We will check a triglyceride level ? We will continue with aggressive IV fluids as she does have an JUDE ? Pain management ? N.p.o. though can continue her prednisone for her giant cell arteritis ? Given the chronicity of her pancreatitis based on the calcifications in the pancreatic duct will obtain repeat MR imaging for better characterization as well as as well as autoimmune studies to better characterize the source of her chronic pancreatitis 2. UTI ? UA is consistent with UTI ? Continue with Rocephin ? Urine cultures pending 3. HTN ? Stable, slightly elevated on admission today due to pain ? Continue with her home metoprolol 4. Anxiety/depression ? Stable ? Continue with all of her home medications with sips of clears DVT: SCDs 75 minutes was spent on direct patient care as well as chart review and collaboration with colleagues Charges/Coding Visit Charges Inpatient E&M: 09831 Init Hosp L3
--- NOTE | 2023-02-04 13:42 | NURSING ---
locked off for MRI
[2023-02-04 13:48] VITALS: BP 163/83; PULSE 69; RESP 18; TEMP 36.7; O2SAT 95
[2023-02-04] MEDS: LORazepam 0.5 MG Tablet PO (14:03)
--- NOTE | 2023-02-04 15:30 | CHAPLAIN ---
Type of Pastoral Visit _x__ Initial Visit ___ Follow-up Visit ___ On-call Visit ___ General Patient Visit ___ Spiritual Assessment ___ Family Conference ___ Bereavement ___ Rapid Response ___ Code Blue ___ Other (describe below) Pastoral Care Referral From _x__ Patient ___ Family ___ Nurse ___ Physician ___ Compounding Technician ___ Double End Sewer ___ Other (describe below) Sacrament/Intervention _x__ Active listening ___ Anointing ___ Rastafari ___ Bereavement ___ Communion _x__ Mariposa exploration ___ _x__ Life review _x__ Prayer ___ Reconciliation ___ Sacrament of Sick _x__ Supportive presence ___ Wedding ___ Other (describe below) Pastoral Comments patient said she wanted just a short visit but then proceeded to describe her health and that she is out of fellowship with her last islam and that she has walked away from God; pt is tearful and expresses anxiety over her spiritual state and condition; pt wants to be in good relationship with God but states it is my fault and I walked away; pt given reassurances about God, joão, and support for her concerns; pt continues to express anxiety and illustrates some of her worries stemming from life issues, moves, and divorce; supportive listening, prayers, and offer of ongoing presence and prayer given
[2023-02-04 20:55] VITALS: BP 141/75; PULSE 62; RESP 18; TEMP 36.6; O2SAT 94
[2023-02-05] MEDS: 0.9% Normal Saline 1,000 ML 150 ML IV ×4 (00:23→20:47)
[2023-02-05 02:55] VITALS: BP 136/70; PULSE 65; RESP 18; TEMP 36.6; O2SAT 94
[2023-02-05] MEDS: Morphine 4 MG/ML Syringe IV ×3 (05:58→20:46)
[2023-02-05 06:11] LABS: Absolute Lymphocyte Count 1.84 X10^3/uL (0.83-4.51); Absolute Neutrophil Count 8.9 X10^3/uL (2.0-7.7); Basophil# 0.02 X10^3/uL; Basophil% 0.2 % (0-1); Eosinophil# 0.04 X10^3/uL; Eosinophils% 0.3 % (0-5); Hematocrit 34.7 % (37-47); Hemoglobin 10.4 g/dL (12.0-15.0); Lymphocyte # 1.84 X10^3/ul (0.83-4.51); Lymphocyte % 15.6 % (19-41); Mean Corpuscular Volume 93.3 fL (81-99); Mean Platelet Vol. 8.6 fl (6.2-12.0); Monocyte# 0.83 X10^3/uL; Monocyte% 7.1 % (0-10); NRBC Flagged by Analyzer 0 % (0-5); Neutrophil # 8.94 X10^3/uL (2.7-7.7); Platelet Count 194 K/mm3 (150-450); RBC Distribution Width SD 44.3 fl (35.1-43.9); Red Blood Count 3.72 M/mm3 (4.2-5.4); White Blood Count 11.8 K/mm3 (4.4-11.0)
[2023-02-05 07:00] LABS: AST(SGOT) 46 U/L (15-37); Alanine Aminotransfer ALT/SGPT 29 U/L (13-56); Albumin, Serum 2.8 g/dL (3.2-5.0); Alkaline Phosphatase 57 U/L (45-117); Anion Gap 7 (5-15); BUN 27 mg/dL (7-18); BUN/Creat Ratio 38.5 RATIO (10-20); Calcium,Total 7.6 mg/dL (8.5-10.1); Chloride 114 mmol/L (98-107); EST Glomerular Filtration Rate 88 mL/min (>60); Est Glom Filt Rate - Afr Amer 107 mL/min (>60); Estimated Creatinine Clearance 41.19 ml/min; Globulin 2.9 g/dL (2.2-4.2); Glucose 60 mg/dL (74-106); Potassium 3.4 mmol/L (3.5-5.1); Protein, Total 5.7 g/dL (6.4-8.2); Sodium Level 142 mmol/L (136-145)
[2023-02-05 08:55] VITALS: BP 157/76; PULSE 69; RESP 16; TEMP 37.2; O2SAT 99
[2023-02-05] MEDS: predniSONE 20 MG Tablet 60 MG PO (09:00)
--- NOTE | 2023-02-05 09:32 | PCM.PN.HOSP ---
Subjective Subjective Doing well, no issues overnight. Resting comfortably pain is minimal Objective Data Objective Data Vital Signs: Vital Signs Temp Pulse Resp BP Pulse Ox O2 Del Method O2 Flow Rate 97.8 F 65 18 136/70 H 94 Nasal Cannula 2 02/05/23 02:55 02/05/23 02:55 02/05/23 02:55 02/05/23 02:55 02/05/23 02:55 02/05/23 02:55 02/05/23 02:55 Oxygen Flow Rate (L/min) 2 Oxygen Delivery Method Nasal Cannula Weight: 253 lb 6.389 oz Body Mass Index (BMI) 47.8 Intake & Output: Intake and Output for Last 24 Hours 02/04/23 02/05/23 02/06/23 03:59 03:59 03:59 Intake Total 3977.5 / 3977.5 1000 / 1000 Output Total 200 / 200 250 / 250 Balance 3777.5 / 3777.5 750 / 750 Lab / Micro Data Result Diagrams: 02/05/23 05:40 02/05/23 05:40 Labs: Laboratory Results - last 24 hr 02/04/23 05:15: Diff Path Review Reviewed 02/04/23 09:50: Lactic Acid 1.7 02/05/23 05:40: WBC 11.8 H, RBC 3.72 L, Hgb 10.4 L, Hct 34.7 L, MCV 93.3 D, MCH 28.0, MCHC 30.0 L D, RDW Std Deviation 44.3 H, RDW Coeff of Janey 13.0, Plt Count 194, MPV 8.6, Immature Gran % (Auto) 0.800, Neut % (Auto) 76.0 H, Lymph % (Auto) 15.6 L, Mcnairy % (Auto) 7.1, Eos % (Auto) 0.3, Baso % (Auto) 0.2, Absolute Neuts (auto) 8.9 H, Absolute Lymphs (auto) 1.84, Nucleated RBC % 0 02/05/23 05:40: Sodium 142, Potassium 3.4 L, Chloride 114 H, Carbon Dioxide 21.0, Anion Gap 7, BUN 27 H, Creatinine 0.70, Estim Creat Clear Calc 41.19, Est GFR (MDRD) Af Amer 107, Est GFR (MDRD) Non-Af 88, BUN/Creatinine Ratio 38.5 H, Glucose 60 L, Calcium 7.6 L, Total Bilirubin 1.20 H, AST 46 H, ALT 29, Alkaline Phosphatase 57, Total Protein 5.7 L, Albumin 2.8 L, Globulin 2.9, Albumin/Globulin Ratio 1.0 Radiography Diagnostic Testing: Radiology Impression MRCP 02/04/23 13:11 IMPRESSION: No biliary dilation or choledocholithiasis. Postcholecystectomy changes. Mild peripancreatic fatty edema consistent with pancreatitis. Electronically Signed: Isaac May MD at 18:46 EDT Reading Location ID and State: [facility] / [place] Tel , Service support , Physical Exam Narrative General: Alert, Oriented x3, Cooperative, No apparent distress HEENT: Atraumatic, PERRLA, EOMI, Normocephalic Oral: Moist Mucosa Neck: Supple, No JVD Lungs: Diminished, Normal air movement, No rhonchi, No wheeze, No rales Cardiovascular: Regular rate, Regular Rhythm, Normal S1, Normal S2, No murmurs Abdomen: Soft, mild epigastric tenderness, Non-Distended, No Hepato-splenomegaly Extremities: No edema, Capillary Refill Less than 3 Seconds Skin: No rashes, No breakdown Musculoskeletal: No Tenderness to Palpation of Joints or Extremities Neurological: Cranial nerves II-XII grossly intact, Motor Exam 5/5 strength throughout, Sensory exam intact to light touch and pain Psych/Mental Status: Flat affect Assessment & Plan Assessment/Plan (1) Acute pancreatitis: PLAN: Plan 1. Acute pancreatitis/JUDE ? Unclear at the moment as the etiology, she does have signs of chronic pancreatitis ? She is status postcholecystectomy so stone is unlikely ?Triglycerides of 181 ? We will continue with aggressive IV fluids as she does have an JUDE ? Pain management ? N.p.o. though can continue her prednisone for her giant cell arteritis ? Given the chronicity of her pancreatitis based on the calcifications in the pancreatic duct an MRI was obtained which was unremarkable ? Lab work for evaluation of autoimmune pancreatitis is also pending 2. UTI ? UA is consistent with UTI ? Continue with Rocephin ? Urine cultures pending 3. HTN ? Stable, slightly elevated on admission today due to pain ? Continue with her home metoprolol 4. Anxiety/depression ? Stable ? Continue with all of her home medications with sips of clears DVT: SCDs Charges/Coding Visit Charges Inpatient E&M: 02129 Subs Hosp L2
--- NOTE | 2023-02-05 10:28 | CASEMGMT ---
Addendum entered by Montserrat Fan 02/05/23 11:23: Received tc back, [facility] has accepted pt and will see pt on Saturday. Pt aware. Addendum entered by Montserrat Fan 02/05/23 11:22: TC to Makayla at [facility], left message with referral, will await acceptance. Original Note: JESSA ARORA Assessment: Face to Face with pt for initial transition planning/care coordination assessment. JESSA ARORA introduced self and role at [facility], pt voices understanding and consents to assessment. Pt is A/O x4 and answers all questions appropriately at this time. Pt sitting up in bed with oxygen on in no distress, visitor just left. Care providers, pharmacy, and demographics verified/updated. Admitting Dx: acute pancreatitis, UTI PCP:Venkata Specialists:garrett Willis; cardio- pt cannot recall name Preferred Pharmacy: [facility] Prescription Benefit: yes LNOK: Yareli Chaves dtr Living Arrangements: Pt lives alone in a ground level apt with 8 steps to enter with a rail. Pt reports she is I in ADL's but it is difficult. Pt has an aide who does her shopping, laundry and household cleaning. Pt receives Mom's meals. Transportation: Pt does not drive. Pt uses [employer] services twice a week but states it is not going to be covered any longer through her insurance. She states that she is going to start using [employer]. DME/HHC/SNF: Pt has a w/c, cane that she mostly uses because her rollator is too big for her apt. Pt would like to have a FWW. She will pay if it is not covered through her insurance. Provided pt with a verbal local in network list of DME companies, pt chose [employer]. Pt has an aide through [facility] twice a week. 6 mos ago pt did therapy at [facility] and has [facility] in the past. Pt has been to [facility]. Pt states no concerns with going home at time of dc. Pt is interested in [facility] again as she states she has declined since not having services. Pt would like [facility] again. She denies need for a list of other agencies for options. Discussed pt having SN, PT and OT. Pt agreeable to this. Pt states she does not have transportation home and is interested in the [facility] van. She is aware on day of dc, RN CM will check availability. Pt states no further concerns/needs. CM to follow. Advised pt to ask CM if any further question/concerns/needs arise, voices understanding. Pt Goal: Home with HHC Plan: Home with HHC, FWW, transportation home and follow for oxygen
[2023-02-05 11:00] VITALS: BP 159/78; PULSE 65
[2023-02-05] MEDS: Citalopram 20 MG Tablet PO (11:00)
[2023-02-05] MEDS: Metoprolol(XL)Succ 25 MG Tablet PO (11:00)
[2023-02-05] MEDS: buPROPion (XL) 150 MG TABLET.XL PO (11:00)
[2023-02-05] MEDS: Sertraline 50 MG Tablet PO (11:00)
[2023-02-05] MEDS: Ceftriaxone 1 GM/50 ML BAG IV (11:00)
[2023-02-05] MEDS: Ondansetron 4 MG/2 ML Vial IV (11:03)
[2023-02-05] MEDS: 0.9% Saline Lock 10 ML Syringe IV (11:06)
--- NOTE | 2023-02-05 11:27 | CASEMGMT ---
Discharge Planning [facility] Puja Maldonado, Discharge Planning Asst.
[2023-02-05 13:19] VITALS: O2SAT 96
[2023-02-05 14:55] VITALS: BP 155/78; PULSE 72; RESP 18; TEMP 37.1; O2SAT 98
[2023-02-05 20:45] VITALS: BP 162/86; PULSE 73; RESP 16; TEMP 36.8; O2SAT 96
[2023-02-06 01:57] VITALS: BP 150/75; PULSE 64; RESP 16; TEMP 36.5; O2SAT 99
[2023-02-06] MEDS: 0.9% Normal Saline 1,000 ML 150 ML IV ×2 (03:30→09:47)
[2023-02-06 07:36] LABS: Anion Gap 7 (5-15); BUN 14 mg/dL (7-18); BUN/Creat Ratio 27.7 RATIO (10-20); Calcium,Total 7.2 mg/dL (8.5-10.1); Chloride 117 mmol/L (98-107); Creatinine, Serum 0.51 mg/dL (0.55-1.02); EST Glomerular Filtration Rate 129 mL/min (>60); Est Glom Filt Rate - Afr Amer 156 mL/min (>60); Estimated Creatinine Clearance 41.19 ml/min; Glucose 58 mg/dL (74-106); Sodium Level 140 mmol/L (136-145)
[2023-02-06 08:04] LABS: Absolute Lymphocyte Count 1.41 X10^3/uL (0.83-4.51); Absolute Neutrophil Count 10.5 X10^3/uL (2.0-7.7); Basophil# 0.02 X10^3/uL; Basophil% 0.2 % (0-1); Eosinophil# 0.01 X10^3/uL; Eosinophils% 0.1 % (0-5); Hematocrit 34.8 % (37-47); Hemoglobin 11.1 g/dL (12.0-15.0); Lymphocyte # 1.41 X10^3/ul (0.83-4.51); Mean Corp Hgb Conc 31.9 g/dL (32-36); Mean Corpuscular Hgb 28.5 pg (27.0-32.0); Mean Corpuscular Volume 89.2 fL (81-99); Mean Platelet Vol. 8.4 fl (6.2-12.0); Monocyte# 0.68 X10^3/uL; Monocyte% 5.3 % (0-10); NRBC Flagged by Analyzer 0 % (0-5); Neutrophil # 10.47 X10^3/uL (2.7-7.7); Platelet Count 159 K/mm3 (150-450); RBC Distribution Width CV 12.5 % (11.6-14.6); RBC Distribution Width SD 40.6 fl (35.1-43.9); White Blood Count 12.8 K/mm3 (4.4-11.0)
[2023-02-06 09:33] VITALS: BP 170/90; PULSE 61; RESP 18; TEMP 36.8; O2SAT 100
--- NOTE | 2023-02-06 09:39 | PCM.PN.HOSP ---
Subjective Subjective Doing well, no issues overnight Objective Data Objective Data Vital Signs: Vital Signs Temp Pulse Resp BP Pulse Ox O2 Del Method O2 Flow Rate 98.3 F 61 18 170/90 H 100 Nasal Cannula 2 02/06/23 09:33 02/06/23 09:33 02/06/23 09:33 02/06/23 09:33 02/06/23 09:33 02/06/23 09:33 02/06/23 09:33 Oxygen Flow Rate (L/min) 2 Oxygen Delivery Method Nasal Cannula Weight: 253 lb 6.389 oz Body Mass Index (BMI) 47.8 Intake & Output: Intake and Output for Last 24 Hours 02/05/23 02/06/23 02/07/23 03:59 03:59 03:59 Intake Total 3977.5 / 3977.5 3807.5 / 3807.5 Output Total 200 / 200 1200 / 1200 Balance 3777.5 / 3777.5 2607.5 / 2607.5 Lab / Micro Data 02/06/23 07:55 02/06/23 06:25 Labs: Laboratory Results - last 24 hr 02/06/23 06:25: WBC Cancelled, Corrected WBC Cancelled, RBC Cancelled, Hgb Cancelled, Hct Cancelled, MCV Cancelled, MCH Cancelled, MCHC Cancelled, RDW Std Deviation Cancelled, RDW Coeff of Janey Cancelled, Plt Count Cancelled, MPV Cancelled, Immature Gran % (Auto) Cancelled, Neut % (Auto) Cancelled, Lymph % (Auto) Cancelled, [place] % (Auto) Cancelled, Eos % (Auto) Cancelled, Baso % (Auto) Cancelled, Absolute Neuts (auto) Cancelled, Absolute Lymphs (auto) Cancelled, Total Counted Cancelled, Neutrophils % (Manual) Cancelled, Band Neutrophils % Cancelled, Lymphocytes % (Manual) Cancelled, Monocytes % (Manual) Cancelled, Eosinophils % (Manual) Cancelled, Basophils % (Manual) Cancelled, Metamyelocytes % Cancelled, Myelocytes % Cancelled, Promyelocytes % Cancelled, Blast Cells % Cancelled, Plasma Cell % (Manual) Cancelled, Other Cells % Cancelled, Nucleated RBC % Cancelled, Nucleated RBCs/100 WBC Cancelled, Differential Comment Cancelled, Diff Path Review Cancelled, Hypersegmented Neuts Cancelled, Atypical Lymphocytes Cancelled, Reactive Lymphocytes Cancelled, Smudge Cells Cancelled, Toxic Granulation Cancelled, Toxic Vacuolation Cancelled, Dohle Bodies Cancelled, Andre Rods Cancelled, Platelet Estimate Cancelled, Plt Morphology Comment Cancelled, RBC Morphology Cancelled 02/06/23 06:25: RBC Morphology Cancelled, Polychromasia Cancelled, Hypochromasia Cancelled, Poikilocytosis Cancelled, Basophilic Stippling Cancelled, Anisocytosis Cancelled, Microcytosis Cancelled, Macrocytosis Cancelled, Spherocytes Cancelled, Sickle Cells Cancelled, Target Cells Cancelled, Tear Drop Cells Cancelled, Ovalocytes Cancelled, Stomatocytes Cancelled, Perez-[place] Bodies Cancelled, Kym Cells Cancelled, Bite Cells Cancelled, Crenated Cell Cancelled, Acanthocytes (Spur) Cancelled, Rouleaux Cancelled, Schistocytes Cancelled, Sodium 140, Potassium 4.0, Chloride 117 H, Carbon Dioxide 16.0 L, Anion Gap 7, BUN 14, Creatinine 0.51 L, Estim Creat Clear Calc 41.19, Est GFR (MDRD) Af Amer 156, Est GFR (MDRD) Non-Af 129, BUN/Creatinine Ratio 27.7 H, Glucose 58 L, Calcium 7.2 L 02/06/23 07:55: WBC 12.8 H, RBC 3.90 L, Hgb 11.1 L, Hct 34.8 L, MCV 89.2, MCH 28.5, MCHC 31.9 L D, RDW Std Deviation 40.6, RDW Coeff of Janey 12.5, Plt Count 159, MPV 8.4, Immature Gran % (Auto) 1.400 H, Neut % (Auto) 82.0 H, Lymph % (Auto) 11.0 L, [place] % (Auto) 5.3, Eos % (Auto) 0.1, Baso % (Auto) 0.2, Absolute Neuts (auto) 10.5 H, Absolute Lymphs (auto) 1.41, Nucleated RBC % 0 Micro: Microbiology 02/04/23 05:45 Urine, Clean Catch Urine Culture - Final Escherichia coli Physical Exam Narrative General: Alert, Oriented x3, Cooperative, No apparent distress HEENT: Atraumatic, PERRLA, EOMI, Normocephalic Oral: Moist Mucosa Neck: Supple, No JVD Lungs: Diminished, Normal air movement, No rhonchi, No wheeze, No rales Cardiovascular: Regular rate, Regular Rhythm, Normal S1, Normal S2, No murmurs Abdomen: Soft, mild epigastric tenderness, Non-Distended, No Hepato-splenomegaly Extremities: No edema, Capillary Refill Less than 3 Seconds Skin: No rashes, No breakdown Musculoskeletal: No Tenderness to Palpation of Joints or Extremities Neurological: Cranial nerves II-XII grossly intact, Motor Exam 5/5 strength throughout, Sensory exam intact to light touch and pain Psych/Mental Status: Flat affect Assessment & Plan Assessment/Plan (1) Acute pancreatitis: PLAN: Plan 1. Acute pancreatitis/JUDE ? Unclear at the moment as the etiology, she does have signs of chronic pancreatitis ? She is status postcholecystectomy so stone is unlikely ?Triglycerides of 181 ? We will continue with aggressive IV fluids, renal function is improved we will continue to monitor ? Pain management ? N.p.o. though can continue her prednisone for her giant cell arteritis ? Given the chronicity of her pancreatitis based on the calcifications in the pancreatic duct an MRI was obtained which was unremarkable ? Lab work for evaluation of autoimmune pancreatitis is also pending 2. UTI due to pansensitive E. coli ? UA is consistent with UTI ? Continue with Rocephin 3. HTN ? Stable, slightly elevated on admission today due to pain ? Continue with her home metoprolol, will will add lisinopril 4. Anxiety/depression ? Stable ? Continue with all of her home medications with sips of clears DVT: SCDs Charges/Coding Visit Charges Inpatient E&M: 58970 Subs Hosp L2
[2023-02-06] MEDS: Nystatin Powder 15gm Bottle 1 APPLIC TOPICAL ×2 (09:45→21:08)
[2023-02-06] MEDS: predniSONE 20 MG Tablet 60 MG PO (09:45)
[2023-02-06] MEDS: Citalopram 20 MG Tablet PO (09:45)
[2023-02-06 09:46] VITALS: BP 170/90; PULSE 61
[2023-02-06] MEDS: Sertraline 50 MG Tablet PO (09:46)
[2023-02-06] MEDS: Metoprolol(XL)Succ 25 MG Tablet PO (09:46)
[2023-02-06] MEDS: buPROPion (XL) 150 MG TABLET.XL PO (09:46)
[2023-02-06] MEDS: Morphine 4 MG/ML Syringe IV ×4 (09:47→21:08)
[2023-02-06] MEDS: Ceftriaxone 1 GM/50 ML BAG IV (09:50)
[2023-02-06] MEDS: Lisinopril 10 MG Tablet PO (10:24)
--- NOTE | 2023-02-06 10:37 | CASEMGMT ---
Social Work SW received phone call from Zoey Lin CM at [facility]. Pt has services including home health aids through [facility] 3x week, [facility] 2x week, home delivered meals and a medical alert. NATALIA will send discharging information to [facility] Language [facility] at time of discharge. ART Humphrey
[2023-02-06 13:08] LABS: Anti-Centromere B Ab <0.2 AI (0.0-0.9); Anti-Chromatin <0.2 AI (0.0-0.9); Anti-Jo <0.2 AI (0.0-0.9); Anti-Scleroderma-70 AB <0.2 AI (0.0-0.9); Anti-dsDNA Ab <1 IU/mL (0-9); RNP Ab <0.2 AI (0.0-0.9); SJOGREN'S Anti-SS-A test < 0.2 AI (0.0-0.9); SJOGREN'S Anti-SS-B test < 0.2 AI (0.0-0.9); Smith Ab <0.2 AI (0.0-0.9)
--- NOTE | 2023-02-06 15:00 | CHAPLAIN ---
Type of Pastoral Visit ___ Initial Visit _x__ Follow-up Visit ___ On-call Visit ___ General Patient Visit ___ Spiritual Assessment ___ Family Conference ___ Bereavement ___ Rapid Response ___ Code Blue ___ Other (describe below) Pastoral Care Referral From _x_ Patient ___ Family ___ Nurse ___ Physician ___ Hand Hardener ___ Engineering Secretary ___ Other (describe below) Sacrament/Intervention _x__ Active listening ___ Anointing ___ Hoahaoism ___ Bereavement ___ Communion _x__ Mariposa exploration ___ _x__ Life review _x__ Prayer ___ Reconciliation ___ Sacrament of Sick _x__ Supportive presence ___ Wedding ___ Other (describe below) Pastoral Comments patient is sitting up in chair and acknowledges some improvement with some unresolved issues still in progress; pt reports a reconnection with her former christianity since her admission and states it brings great relief and comfort to her; pt is expecting to go to rehab upon discharge but uncertain about details; pt asks that this pretzel twister can continue to visit her while in the hospital; prayer and presence given
[2023-02-06 16:09] LABS: Albumin 3.1 g/dL (2.9-4.4); Alpha-1-Globulins 0.2 g/dL (0.0-0.4); Alpha-2-Globulins 0.6 g/dL (0.4-1.0); Gamma Globulin 0.3 g/dL (0.4-1.8); IgG, Quant 346 mg/dL (586-1602); Immunoglobulin A 85 mg/dL (87-352); Immunoglobulin G, Subclass 1 161 mg/dL (248-810); Immunoglobulin G, Subclass 2 144 mg/dL (130-555); Immunoglobulin G, Subclass 3 18 mg/dL (15-102); Immunoglobulin G, Subclass 4 9 mg/dL (2-96); Immunoglobulin M 70 mg/dL (26-217); PROEL- TOTAL PROTEIN 5.1 g/dL (6.0-8.5)
[2023-02-06 16:39] VITALS: BP 148/89; PULSE 67; RESP 18; TEMP 36.5; O2SAT 98
[2023-02-06] MEDS: 0.9% Normal Saline 1,000 ML 100 ML IV (17:52)
[2023-02-06] MEDS: 0.9% Saline Lock 10 ML Syringe IV (17:53)
[2023-02-06 21:00] VITALS: BP 151/91; PULSE 67; RESP 16; TEMP 36.6; O2SAT 97
[2023-02-06] MEDS: Ondansetron 4 MG/2 ML Vial IV (21:08)
[2023-02-07] VITALS (10 sets, daily range): BP systolic 159–219; BP diastolic 83–112; PULSE 59–66; RESP 16–18; TEMP 36.4–36.7; O2SAT 95–98
[2023-02-07] MEDS: Morphine 4 MG/ML Syringe IV ×3 (01:56→10:13)
[2023-02-07] MEDS: 0.9% Normal Saline 1,000 ML 100 ML IV ×3 (01:57→21:26)
[2023-02-07] MEDS: Ondansetron 4 MG/2 ML Vial IV ×2 (06:58→11:13)
[2023-02-07 07:13] LABS: Absolute Lymphocyte Count 0.98 X10^3/uL (0.83-4.51); Absolute Neutrophil Count 10.3 X10^3/uL (2.0-7.7); Basophil# 0.04 X10^3/uL; Basophil% 0.3 % (0-1); Eosinophil# 0.01 X10^3/uL; Eosinophils% 0.1 % (0-5); Hematocrit 33.7 % (37-47); Hemoglobin 10.6 g/dL (12.0-15.0); Lymphocyte # 0.98 X10^3/ul (0.83-4.51); Lymphocyte % 7.9 % (19-41); Mean Corp Hgb Conc 31.5 g/dL (32-36); Mean Corpuscular Hgb 27.6 pg (27.0-32.0); Mean Corpuscular Volume 87.8 fL (81-99); Mean Platelet Vol. 8.7 fl (6.2-12.0); Monocyte# 0.75 X10^3/uL; NRBC Flagged by Analyzer 0 % (0-5); Neutrophil # 10.33 X10^3/uL (2.7-7.7); Neutrophil % 83.4 % (47-70); Platelet Count 216 K/mm3 (150-450); RBC Distribution Width CV 12.6 % (11.6-14.6); RBC Distribution Width SD 39.6 fl (35.1-43.9); Red Blood Count 3.84 M/mm3 (4.2-5.4); White Blood Count 12.4 K/mm3 (4.4-11.0)
[2023-02-07 07:43] LABS: Anion Gap 4 (5-15); BUN 7 mg/dL (7-18); BUN/Creat Ratio 11.9 RATIO (10-20); Calcium,Total 7.6 mg/dL (8.5-10.1); Chloride 111 mmol/L (98-107); Creatinine, Serum 0.59 mg/dL (0.55-1.02); EST Glomerular Filtration Rate 109 mL/min (>60); Est Glom Filt Rate - Afr Amer 132 mL/min (>60); Estimated Creatinine Clearance 41.19 ml/min; Glucose 122 mg/dL (74-106); Potassium 3.9 mmol/L (3.5-5.1); Sodium Level 139 mmol/L (136-145)
[2023-02-07] MEDS: predniSONE 20 MG Tablet 60 MG PO (07:43)
[2023-02-07] MEDS: Metoprolol(XL)Succ 25 MG Tablet PO (07:43)
[2023-02-07] MEDS: Lisinopril 10 MG Tablet PO ×2 (07:43→20:34)
[2023-02-07] MEDS: Sertraline 50 MG Tablet PO (07:43)
[2023-02-07] MEDS: buPROPion (XL) 150 MG TABLET.XL PO (07:44)
[2023-02-07] MEDS: Nystatin Powder 15gm Bottle 1 APPLIC TOPICAL ×2 (07:44→21:25)
--- NOTE | 2023-02-07 09:42 | PN.HOSP_ITS ---
Subjective Subjective Tolerated clear liquids, no issues overnight Objective Data Objective Data Vital Signs: Vital Signs Temp Pulse Resp BP Pulse Ox O2 Del Method O2 Flow Rate 97.8 F 59 L 16 159/95 H 98 Nasal Cannula 2 02/07/23 02:11 02/07/23 07:43 02/07/23 02:11 02/07/23 02:11 02/07/23 02:11 02/07/23 02:11 02/07/23 02:11 Oxygen Flow Rate (L/min) 2 Oxygen Delivery Method Nasal Cannula Weight: 253 lb 6.389 oz Body Mass Index (BMI) 47.8 Intake & Output: Intake and Output for Last 24 Hours 02/06/23 02/07/23 02/08/23 03:59 03:59 03:59 Intake Total 3807.5 / 3807.5 2577.50 / 2577.50 Output Total 1200 / 1200 725 / 725 600 / 600 Balance 2607.5 / 2607.5 1852.50 / 1852.50 -600 / -600 Lab / Micro Data 02/07/23 06:40 02/07/23 06:40 Labs: Laboratory Results - last 24 hr 02/05/23 05:40: Total Protein (PEP) 5.1 L, Globulin 2.0 L, IgG Not Reportable, IgG Total 346 L, IgG1 161 L, IgG2 144, IgG3 18, IgG4 9, IgA 85 L, IgM 70, Immunofixation Screen Comment, Albumin (MALACHI) 3.1, Albumin/Globulin (MALACHI) 1.6, Tvfeh-9-Vauveastv MALACHI 0.2, Yfzkr-3-Ksslvmyua MALACHI 0.6, Beta-Globulins (MALACHI) 0.9, Gamma Globulins (MALACHI) 0.3 L, MALACHI M-Shad , MALACHI Comments Comment, UMU-1 Antibody <0.2, SS-A/Ro IgG Antibody < 0.2, SS-B/La IgG Antibody < 0.2, Sm (Saenz) Antibody <0.2, BURNING MACHINE OPERATOR Antibody <0.2, Scl-70 Scleroderma Ab <0.2, Double Strand DNA Ab <1, Centromere B Antibody <0.2 02/07/23 06:40: WBC 12.4 H, RBC 3.84 L, Hgb 10.6 L, Hct 33.7 L, MCV 87.8, MCH 27.6, MCHC 31.5 L, RDW Std Deviation 39.6, RDW Coeff of Janey 12.6, Plt Count 216, MPV 8.7, Immature Gran % (Auto) 2.300 H, Neut % (Auto) 83.4 H, Lymph % (Auto) 7.9 L, [place] % (Auto) 6.0, Eos % (Auto) 0.1, Baso % (Auto) 0.3, Absolute Neuts (auto) 10.3 H, Absolute Lymphs (auto) 0.98, Nucleated RBC % 0, Sodium 139, Potassium 3.9, Chloride 111 H, Carbon Dioxide 24.0, Anion Gap 4 L, BUN 7, Creatinine 0.59, Estim Creat Clear Calc 41.19, Est GFR (MDRD) Af Amer 132, Est GFR (MDRD) Non-Af 109, BUN/Creatinine Ratio 11.9, Glucose 122 H, Calcium 7.6 L Micro: Microbiology 02/04/23 05:45 Urine, Clean Catch Urine Culture - Final Escherichia coli Physical Exam Narrative General: Alert, Oriented x3, Cooperative, No apparent distress HEENT: Atraumatic, PERRLA, EOMI, Normocephalic Oral: Moist Mucosa Neck: Supple, No JVD Lungs: Diminished, Normal air movement, No rhonchi, No wheeze, No rales Cardiovascular: Regular rate, Regular Rhythm, Normal S1, Normal S2, No murmurs Abdomen: Soft, mild epigastric tenderness, Non-Distended, No Hepato-splenomegaly Extremities: No edema, Capillary Refill Less than 3 Seconds Skin: No rashes, No breakdown Musculoskeletal: No Tenderness to Palpation of Joints or Extremities Neurological: Cranial nerves II-XII grossly intact, Motor Exam 5/5 strength throughout, Sensory exam intact to light touch and pain Psych/Mental Status: Flat affect Assessment & Plan Assessment/Plan (1) Acute pancreatitis: PLAN: Plan 1. Acute pancreatitis/JUDE ? Unclear at the moment as the etiology, she does have signs of chronic pancreatitis ? She is status postcholecystectomy so stone is unlikely ?Triglycerides of 181 ? We will continue with aggressive IV fluids, renal function is improved we will continue to monitor ? Pain management ? Tolerated clears, advance as tolerated ? Given the chronicity of her pancreatitis based on the calcifications in the pancreatic duct an MRI was obtained which was unremarkable ? Lab work for evaluation of autoimmune pancreatitis is also pending, will have her follow-up as an outpatient with gastroenterology 2. UTI due to pansensitive E. coli ? UA is consistent with UTI ? Continue with Rocephin 3. HTN ? Stable, slightly elevated on admission today due to pain ? Continue with her home metoprolol, will will add lisinopril 4. Anxiety/depression ? Stable ? Continue with all of her home medications with sips of clears DVT: SCDs Charges/Coding Visit Charges Inpatient E&M: 57362 Subs Hosp L2
[2023-02-07] MEDS: 0.9% Saline Lock 10 ML Syringe IV ×2 (10:14→11:14)
[2023-02-07] MEDS: Ceftriaxone 1 GM/50 ML BAG IV (10:14)
--- NOTE | 2023-02-07 10:20 | EKG12_ITS ---
Test Reason : SOB Blood Pressure : / mmHG Vent. Rate : 060 BPM Atrial Rate : 060 BPM P-R Int : 190 ms QRS Dur : 090 ms QT Int : 452 ms P-R-T Axes : 049 -14 003 degrees QTc Int : 452 ms Normal sinus rhythm Inferior infarct , age undetermined Abnormal ECG No previous ECGs available Confirmed by INGA GROSSMAN, JORI ([id number]), photographic editor DEIDRE MENDEZ ([id number]) on 02/11/2023 1:00:34 PM Referred By: MIREYA Confirmed By:JORI XIONG MD
--- NOTE | 2023-02-07 13:55 | CASEMGMT ---
Updated Makayla at [facility] that pt will not dc today.
[2023-02-07] MEDS: Pantoprazole Sodium 20 MG Tablet PO (22:27)
[2023-02-07] MEDS: hydrALAZINE 20 MG/ML Vial 10 MG IV (22:48)
[2023-02-08] VITALS (13 sets, daily range): BP systolic 150–181; BP diastolic 73–94; PULSE 61–68; RESP 16–18; TEMP 36.6–37; O2SAT 94–99
[2023-02-08] MEDS: Morphine 4 MG/ML Syringe IV ×2 (01:59→11:42)
[2023-02-08] MEDS: 0.9% Saline Lock 10 ML Syringe IV ×5 (01:59→22:44)
[2023-02-08] MEDS: Ondansetron 4 MG/2 ML Vial IV ×2 (01:59→10:23)
[2023-02-08 06:44] LABS: Absolute Lymphocyte Count 1.59 X10^3/uL (0.83-4.51); Absolute Neutrophil Count 11.8 X10^3/uL (2.0-7.7); Basophil# 0.03 X10^3/uL; Basophil% 0.2 % (0-1); Eosinophil# 0.01 X10^3/uL; Eosinophils% 0.1 % (0-5); Hematocrit 33.1 % (37-47); Hemoglobin 10.9 g/dL (12.0-15.0); Lymphocyte # 1.59 X10^3/ul (0.83-4.51); Lymphocyte % 10.6 % (19-41); Mean Corp Hgb Conc 32.9 g/dL (32-36); Mean Corpuscular Hgb 28.8 pg (27.0-32.0); Mean Corpuscular Volume 87.6 fL (81-99); Mean Platelet Vol. 8.6 fl (6.2-12.0); Monocyte# 1.14 X10^3/uL; Monocyte% 7.6 % (0-10); NRBC Flagged by Analyzer 0 % (0-5); Neutrophil # 11.82 X10^3/uL (2.7-7.7); Neutrophil % 78.9 % (47-70); Platelet Count 216 K/mm3 (150-450); RBC Distribution Width CV 12.7 % (11.6-14.6); RBC Distribution Width SD 39.9 fl (35.1-43.9); Red Blood Count 3.78 M/mm3 (4.2-5.4)
[2023-02-08] MEDS: 0.9% Normal Saline 1,000 ML 100 ML IV ×2 (07:03→16:57)
[2023-02-08 07:18] LABS: Anion Gap 6 (5-15); BUN 6 mg/dL (7-18); BUN/Creat Ratio 10.3 RATIO (10-20); Calcium,Total 7.8 mg/dL (8.5-10.1); Chloride 110 mmol/L (98-107); Creatinine, Serum 0.58 mg/dL (0.55-1.02); EST Glomerular Filtration Rate 110 mL/min (>60); Est Glom Filt Rate - Afr Amer 133 mL/min (>60); Estimated Creatinine Clearance 41.19 ml/min; Glucose 88 mg/dL (74-106); Potassium 3.8 mmol/L (3.5-5.1); Sodium Level 141 mmol/L (136-145)
[2023-02-08] MEDS: Ceftriaxone 1 GM/50 ML BAG IV (10:33)
[2023-02-08] MEDS: Nystatin Powder 15gm Bottle 1 APPLIC TOPICAL ×2 (10:35→21:12)
[2023-02-08] MEDS: Pantoprazole Sodium 20 MG Tablet PO ×2 (11:09→21:12)
[2023-02-08] MEDS: predniSONE 20 MG Tablet 60 MG PO (11:09)
[2023-02-08] MEDS: Metoprolol(XL)Succ 25 MG Tablet PO (11:09)
[2023-02-08] MEDS: Sertraline 50 MG Tablet PO (11:10)
[2023-02-08] MEDS: buPROPion (XL) 150 MG TABLET.XL PO (11:10)
[2023-02-08] MEDS: Lisinopril 10 MG Tablet PO ×2 (11:10→20:34)
--- NOTE | 2023-02-08 11:50 | CASEMGMT ---
JESSA ARORA into pt room to discuss dc plans. Pt aware that [facility] will be out to see her once she is home, [place] [facility] [place] to see if she qualifies for [place]. Pt is aware that the [facility] van does not transport pt home on the weekend. Pt states she does not have any person who can transport her home. Discussed using her [employer] and pt states she needs to go in a stretcher or w/c. Pt states she would like [facility] to take her home. She states last time she was dc'd from the hospital this is what happened. Pt aware that this may not be paid for, pt states it was last time. Noted last [facility] TCU stay pt had a person take her home. Spoke with pt nurse to see if pt requires stretcher or w/c to go home. Spoke with therapy who will work with with her and see how pt does. JESSA ARORA to follow.
--- NOTE | 2023-02-08 15:07 | CASEMGMT ---
Social work Pt stating she does not have transportation home. [facility] confirms they can transport pts home from hospital 04/03. [facility] can be reached at [phone] ART Humphrey
--- NOTE | 2023-02-08 16:07 | PN.HOSP_ITS ---
Subjective Subjective Abdominal pain is improved a little bit today. So is nausea. She does have a leukocytosis of unclear significance as she is afebrile Objective Data Objective Data Vital Signs: Vital Signs Temp Pulse Resp BP Pulse Ox O2 Del Method O2 Flow Rate 98.2 F 62 16 153/73 H 94 Nasal Cannula 2 02/08/23 14:00 02/08/23 14:00 02/08/23 14:00 02/08/23 14:00 02/08/23 14:00 02/08/23 14:00 02/08/23 14:00 Oxygen Flow Rate (L/min) 2 Oxygen Delivery Method Nasal Cannula Weight: 253 lb 6.389 oz Body Mass Index (BMI) 47.8 Intake & Output: Intake and Output for Last 24 Hours 02/07/23 02/08/23 02/09/23 03:59 03:59 03:59 Intake Total 2577.50 / 2577.50 1896.67 / 1896.67 1081.67 / 1081.67 Output Total 725 / 725 2500 / 2500 1450 / 1450 Balance 1852.50 / 1852.50 -603.33 / -603.33 -368.33 / -368.33 Lab / Micro Data 02/08/23 06:05 02/08/23 06:05 Labs: Laboratory Results - last 24 hr 02/08/23 06:05: WBC 15.0 H, RBC 3.78 L, Hgb 10.9 L, Hct 33.1 L, MCV 87.6, MCH 28.8, MCHC 32.9, RDW Std Deviation 39.9, RDW Coeff of Janey 12.7, Plt Count 216, M PV 8.6, Immature Gran % (Auto) 2.600 H, Neut % (Auto) 78.9 H, Lymph % (Auto) 10.6 L, [place] % (Auto) 7.6, Eos % (Auto) 0.1, Baso % (Auto) 0.2, Absolute Neuts (auto) 11.8 H, Absolute Lymphs (auto) 1.59, Nucleated RBC % 0, Sodium 141, Potassium 3.8, Chloride 110 H, Carbon Dioxide 25.0, Anion Gap 6, BUN 6 L, Creatinine 0.58, Estim Creat Clear Calc 41.19, Est GFR (MDRD) Af Amer 133, Est GFR (MDRD) Non-Af 110, BUN/Creatinine Ratio 10.3, Glucose 88, Calcium 7.8 L Micro: Microbiology 02/04/23 05:45 Urine, Clean Catch Urine Culture - Final Escherichia coli Physical Exam Narrative General: Alert, Oriented x3, Cooperative, No apparent distress HEENT: Atraumatic, PERRLA, EOMI, Normocephalic Oral: Moist Mucosa Neck: Supple, No JVD Lungs: Diminished, Normal air movement, No rhonchi, No wheeze, No rales Cardiovascular: Regular rate, Regular Rhythm, Normal S1, Normal S2, No murmurs Abdomen: Soft, mild epigastric tenderness, Non-Distended, No Hepato-splenomegaly Extremities: No edema, Capillary Refill Less than 3 Seconds Skin: No rashes, No breakdown Musculoskeletal: No Tenderness to Palpation of Joints or Extremities Neurological: Cranial nerves II-XII grossly intact, Motor Exam 5/5 strength throughout, Sensory exam intact to light touch and pain Psych/Mental Status: Flat affect Assessment & Plan Assessment/Plan (1) Acute pancreatitis: PLAN: Plan 1. Acute pancreatitis/JUDE ? Unclear at the moment as the etiology, she does have signs of chronic pancreatitis ? She is status postcholecystectomy so stone is unlikely ?Triglycerides of 181 ? We will continue with aggressive IV fluids, renal function is improved we will continue to monitor ? Pain management ? We will restart clears today and see how she feels ? Given the chronicity of her pancreatitis based on the calcifications in the pancreatic duct an MRI was obtained which was unremarkable ? Lab work for evaluation of autoimmune pancreatitis is also pending, will have her follow-up as an outpatient with gastroenterology ? We will repeat CBC in the morning this could be all secondary to her predn isone though she has had extreme fluctuations 2. UTI due to pansensitive E. coli ? UA is consistent with UTI ? Continue with Rocephin 3. HTN ? Stable, slightly elevated on admission today due to pain ? Continue with her home metoprolol, will will add lisinopril 4. Anxiety/depression ? Stable ? Continue with all of her home medications with sips of clears DVT: SCDs Charges/Coding Visit Charges Inpatient E&M: 87782 Subs Hosp L2
--- NOTE | 2023-02-08 16:30 | NURSING ---
Patient ambulated in halls with this RN.
[2023-02-08] MEDS: hydrALAZINE 20 MG/ML Vial 10 MG IV (22:44)
[2023-02-09] VITALS (7 sets, daily range): BP systolic 147–163; BP diastolic 78–90; PULSE 62–69; RESP 16–18; TEMP 36.6–36.7; O2SAT 97–100
[2023-02-09] MEDS: 0.9% Normal Saline 1,000 ML 100 ML IV ×3 (02:40→21:09)
[2023-02-09 06:36] LABS: Absolute Lymphocyte Count 0.98 X10^3/uL (0.83-4.51); Absolute Neutrophil Count 8.1 X10^3/uL (2.0-7.7); Basophil# 0.02 X10^3/uL; Basophil% 0.2 % (0-1); Hematocrit 32.1 % (37-47); Hemoglobin 10.3 g/dL (12.0-15.0); Lymphocyte # 0.98 X10^3/ul (0.83-4.51); Lymphocyte % 9.8 % (19-41); Mean Corp Hgb Conc 32.1 g/dL (32-36); Mean Corpuscular Volume 87.2 fL (81-99); Mean Platelet Vol. 8.4 fl (6.2-12.0); NRBC Flagged by Analyzer 0 % (0-5); Neutrophil # 8.09 X10^3/uL (2.7-7.7); Neutrophil % 80.6 % (47-70); Platelet Count 187 K/mm3 (150-450); RBC Distribution Width CV 13.1 % (11.6-14.6); RBC Distribution Width SD 40.2 fl (35.1-43.9); Red Blood Count 3.68 M/mm3 (4.2-5.4)
[2023-02-09 07:18] LABS: AST(SGOT) 20 U/L (15-37); Alanine Aminotransfer ALT/SGPT 36 U/L (13-56); Albumin, Serum 2.7 g/dL (3.2-5.0); Alkaline Phosphatase 53 U/L (45-117); Anion Gap 5 (5-15); BUN 7 mg/dL (7-18); BUN/Creat Ratio 12.8 RATIO (10-20); Calcium,Total 7.5 mg/dL (8.5-10.1); Chloride 110 mmol/L (98-107); Creatinine, Serum 0.55 mg/dL (0.55-1.02); EST Glomerular Filtration Rate 118 mL/min (>60); Est Glom Filt Rate - Afr Amer 143 mL/min (>60); Estimated Creatinine Clearance 41.19 ml/min; Globulin 2.6 g/dL (2.2-4.2); Glucose 106 mg/dL (74-106); Potassium 3.3 mmol/L (3.5-5.1); Protein, Total 5.3 g/dL (6.4-8.2); Sodium Level 142 mmol/L (136-145)
[2023-02-09] MEDS: predniSONE 20 MG Tablet 60 MG PO (07:55)
[2023-02-09] MEDS: Metoprolol(XL)Succ 25 MG Tablet PO (08:00)
[2023-02-09] MEDS: buPROPion (XL) 150 MG TABLET.XL PO (08:01)
[2023-02-09] MEDS: Sertraline 50 MG Tablet PO (08:01)
[2023-02-09] MEDS: Lisinopril 10 MG Tablet PO ×2 (08:01→21:02)
--- NOTE | 2023-02-09 08:34 | PCM.PN.HOSP ---
Reason for Visit Reason for Visit: Diagnoses Acute pancreatitis without necrosis or infection, unspecified (02/04/23) Subjective Subjective Pt had tolerated food last night but after breakfast reports some pain and nausea, also no BM x5 days Objective Data Objective Data Vital Signs: Vital Signs Temp Pulse Resp BP Pulse Ox O2 Del Method O2 Flow Rate 98.0 F 64 18 158/90 H 97 Nasal Cannula 3.5 02/09/23 08:02/09/23 08:02/09/23 08:02/09/23 08:02/09/23 08:02/09/23 08:02/09/23 02:42 Oxygen Flow Rate (L/min) 3.5 Oxygen Delivery Method Nasal Cannula Weight: 114.94 kg Body Mass Index (BMI) 47.8 Intake & Output: Intake and Output for Last 24 Hours 02/07/23 02/08/23 02/09/23 23:59 23:59 23:59 Intake Total 2705.00 / 2705.00 2271.67 / 2471.67 1271.67 / 1271.67 Output Total 2775 / 2775 1800 / 1800 Balance -70.00 / -70.00 471.67 / 671.67 1271.67 / 1271.67 Lab / Micro Data 02/09/23 06:10 02/09/23 06:10 Labs: Laboratory Results - last 24 hr 02/09/23 06:10: WBC 10.0, RBC 3.68 L, Hgb 10.3 L, Hct 32.1 L, MCV 87.2, MCH 28.0, MCHC 32.1, RDW Std Deviation 40.2, RDW Coeff of Janey 13.1, Plt Count 187, MPV 8.4, Immature Gran % (Auto) 2.400 H, Neut % (Auto) 80.6 H, Lymph % (Auto) 9.8 L, [place] % (Auto) 7.0, Eos % (Auto) 0.0, Baso % (Auto) 0.2, Absolute Neuts (auto) 8.1 H, Absolute Lymphs (auto) 0.98, Nucleated RBC % 0, Sodium 142, Potassium 3.3 L, Chloride 110 H, Carbon Dioxide 27.0, Anion Gap 5, BUN 7, Creatinine 0.55, Estim Creat Clear Calc 41.19, Est GFR (MDRD) Af Amer 143, Est GFR (MDRD) Non-Af 118, BUN/Creatinine Ratio 12.8, Glucose 106, Calcium 7.5 L, Total Bilirubin 0.60, AST 20, ALT 36, Alkaline Phosphatase 53, Total Protein 5.3 L, Albumin 2.7 L, Globulin 2.6, Albumin/Globulin Ratio 1.0 Micro: Microbiology 02/04/23 05:45 Urine, Clean Catch Urine Culture - Final Escherichia coli Physical Exam Const alert and no apparent distress Constitutional Narrative: Oriented HEENT normocephalic and head/scalp atraumatic Eyes Eyes Narrative: EOM grossly intact, anicteric Neck supple Resp normal respiratory effort and clear to auscultation bilaterally Cardio regular rate and regular rhythm GI GI Narrative: Does not appear in pain on palpation but reports some tenderness in both upper quadrants on palpation, no r/g/r Extremity Extremity Narrative: No edema appreciated Neuro moves all extremities Neuro Narrative: No overt focal deficits appreciated Psych Psych Narrative: Overall Cooperative Assessment & Plan Assessment/Plan (1) Acute pancreatitis: PLAN: Plan # Acute pancreatitis/JUDE ? Unclear at the moment as the etiology, she does have signs of chronic pancreatitis ? She is status postcholecystectomy so stone is unlikely ?Triglycerides of 181 ? We will continue with aggressive IV fluids, renal function is improved we will continue to monitor ? Pain management ? We will restart clears today and see how she feels ? Given the chronicity of her pancreatitis based on the calcifications in the pancreatic duct an MRI was obtained which was unremarkable ? Lab work for evaluation of autoimmune pancreatitis is also pending, will have her follow-up as an outpatient with gastroenterology ? We will repeat CBC in the morning this could be all secondary to her prednisone though she has had extreme fluctuations -02/09: JUDE resolved. White blood cell count returned to normal limits. Patient started on clear liquid diet yesterday, tolerated in the PM but AM had some more pain and nausea, advised to try to eat more slowly for lunch and will work on pain and nausea control, can resume NPO if needed. Will add bowel regimen #UTI due to pansensitive E. coli ? UA is consistent with UTI ? Continue with Rocephin, started on antibiotics 02/05 #HTN ? Stable, slightly elevated on admission today due to pain ? Continue with her home metoprolol, will will add lisinopril #Anxiety/depression ? Stable ? Continue with all of her home medications #Hx GCA -Continue prednisone DVT: SCDs Time spent w/ chart review, pt interview/evaluation, discussing with team members 38mins Charges/Coding Visit Charges Inpatient E&M: 05824 Subs Hosp L3
[2023-02-09] MEDS: Ceftriaxone 1 GM/50 ML BAG IV (09:44)
[2023-02-09] MEDS: Nystatin Powder 15gm Bottle 1 APPLIC TOPICAL ×2 (09:48→21:03)
[2023-02-09] MEDS: Pantoprazole Sodium 20 MG Tablet PO ×2 (09:48→21:01)
[2023-02-09] MEDS: oxyCODONE 5 MG Tablet PO (10:00)
[2023-02-09] MEDS: Ondansetron 4 MG/2 ML Vial IV (10:01)
[2023-02-09] MEDS: Potassium Chloride 10mEq/100mL 10 MEQ/100 ML IV.SOLN. 100 MEQ IV BOLUS ×2 (10:42→12:38)
[2023-02-09] MEDS: Polyethylene Glycol 3350 17 GM PACKET PO ×2 (13:50→21:02)
[2023-02-10] VITALS (7 sets, daily range): BP systolic 149–178; BP diastolic 78–94; PULSE 59–69; RESP 18–20; TEMP 36.3–37.2; O2SAT 97–100
[2023-02-10] MEDS: 0.9% Normal Saline 1,000 ML 100 ML IV ×2 (06:26→17:14)
[2023-02-10 07:05] LABS: Absolute Lymphocyte Count 1.58 X10^3/uL (0.83-4.51); Absolute Neutrophil Count 7.3 X10^3/uL (2.0-7.7); Basophil# 0.03 X10^3/uL; Basophil% 0.3 % (0-1); Eosinophil# 0.04 X10^3/uL; Eosinophils% 0.4 % (0-5); Hemoglobin 9.8 g/dL (12.0-15.0); Lymphocyte # 1.58 X10^3/ul (0.83-4.51); Mean Corp Hgb Conc 31.6 g/dL (32-36); Mean Corpuscular Volume 88.6 fL (81-99); Monocyte# 0.76 X10^3/uL; Monocyte% 7.7 % (0-10); NRBC Flagged by Analyzer 0 % (0-5); Neutrophil # 7.26 X10^3/uL (2.7-7.7); Neutrophil % 73.5 % (47-70); Platelet Count 201 K/mm3 (150-450); RBC Distribution Width CV 13.2 % (11.6-14.6); RBC Distribution Width SD 41.1 fl (35.1-43.9); White Blood Count 9.9 K/mm3 (4.4-11.0)
[2023-02-10 07:34] LABS: ALB/GLOB Ratio 1.1 RATIO (0.9-2.4); AST(SGOT) 13 U/L (15-37); Alanine Aminotransfer ALT/SGPT 31 U/L (13-56); Albumin, Serum 2.6 g/dL (3.2-5.0); Alkaline Phosphatase 46 U/L (45-117); Anion Gap 4 (5-15); BUN 6 mg/dL (7-18); BUN/Creat Ratio 9.1 RATIO (10-20); Calcium,Total 7.3 mg/dL (8.5-10.1); Chloride 112 mmol/L (98-107); Creatinine, Serum 0.66 mg/dL (0.55-1.02); EST Glomerular Filtration Rate 95 mL/min (>60); Est Glom Filt Rate - Afr Amer 114 mL/min (>60); Estimated Creatinine Clearance 41.19 ml/min; Globulin 2.3 g/dL (2.2-4.2); Glucose 92 mg/dL (74-106); Potassium 2.8 mmol/L (3.5-5.1); Protein, Total 4.9 g/dL (6.4-8.2); Sodium Level 144 mmol/L (136-145)
--- NOTE | 2023-02-10 08:12 | PN.HOSP_ITS ---
Reason for Visit Reason for Visit: Diagnoses Acute pancreatitis without necrosis or infection, unspecified (02/04/23) Subjective Subjective Still some abdominal pain but improving and is tolerating clear liquids better now, not having nausea Objective Data Objective Data Vital Signs: Vital Signs Temp Pulse Resp BP Pulse Ox O2 Del Method O2 Flow Rate 98.4 F 59 L 19 H 178/94 H 99 Nasal Cannula 4 02/10/23 07:58 02/10/23 07:58 02/10/23 07:58 02/10/23 07:58 02/10/23 07:58 02/10/23 07:58 02/10/23 07:58 Oxygen Flow Rate (L/min) 4 Oxygen Delivery Method Nasal Cannula Weight: 114.94 kg Body Mass Index (BMI) 47.8 Intake & Output: Intake and Output for Last 24 Hours 02/08/23 02/09/23 02/10/23 23:59 23:59 23:59 Intake Total 2271.67 / 2471.67 4014.34 / 4014.34 928.33 / 928.33 Output Total 1800 / 1800 Balance 471.67 / 671.67 4014.34 / 4014.34 928.33 / 928.33 Lab / Micro Data 02/10/23 06:01 02/10/23 06:01 Labs: Laboratory Results - last 24 hr 02/10/23 06:01: WBC 9.9, RBC 3.50 L, Hgb 9.8 L, Hct 31.0 L, MCV 88.6, MCH 28.0, MCHC 31.6 L, RDW Std Deviation 41.1, RDW Coeff of Janey 13.2, Plt Count 201, MPV 9.0, Immature Gran % (Auto) 2.100 H, Neut % (Auto) 73.5 H, Lymph % (Auto) 16.0 L , [place] % (Auto) 7.7, Eos % (Auto) 0.4, Baso % (Auto) 0.3, Absolute Neuts (auto) 7.3, Absolute Lymphs (auto) 1.58, Nucleated RBC % 0, Sodium 144, Potassium 2.8 L , Chloride 112 H, Carbon Dioxide 28.0, Anion Gap 4 L, BUN 6 L, Creatinine 0.66, Estim Creat Clear Calc 41.19, Est GFR (MDRD) Af Amer 114, Est GFR (MDRD) Non-Af 95, BUN/Creatinine Ratio 9.1 L, Glucose 92, Calcium 7.3 L, Total Bilirubin 0.60, AST 13 L, ALT 31, Alkaline Phosphatase 46, Total Protein 4.9 L, Albumin 2.6 L, Globulin 2.3, Albumin/Globulin Ratio 1.1 Micro: Microbiology 02/04/23 05:45 Urine, Clean Catch Urine Culture - Final Escherichia coli Physical Exam Narrative General: Alert, oriented, no apparent distress HEENT: Atraumatic, normocephalic Eyes: Anicteric, normal conjunctiva, extraocular movements grossly intact Neck: Supple Respiratory: Clear to auscultation bilaterally, normal respiratory effort Cardiovascular: Regular rate and rhythm GI: Nondistended, not acutely distressed Extremities: No significant pitting edema Musculoskeletal: Moving all extremities Neuro: No overt focal neurological deficits Skin: No rashes appreciated Psych: Cooperative Assessment & Plan Assessment/Plan (1) Acute pancreatitis: PLAN: Plan # Acute pancreatitis/JUDE ? Unclear at the moment as the etiology, she does have signs of chronic pancreatitis ? She is status postcholecystectomy so stone is unlikely ?Triglycerides of 181 ? We will continue with aggressive IV fluids, renal function is improved we will continue to monitor ? Pain management ? We will restart clears today and see how she feels ? Given the chronicity of her pancreatitis based on the calcifications in the pancreatic duct an MRI was obtained which was unremarkable ? Lab work for evaluation of autoimmune pancreatitis is also pending, will have her follow-up as an outpatient with gastroenterology ? We will repeat CBC in the morning this could be all secondary to her prednison e though she has had extreme fluctuations -02/09: JUDE resolved. White blood cell count returned to normal limits. Patient started on clear liquid diet yesterday, tolerated in the PM but AM had some more pain and nausea, advised to try to eat more slowly for lunch and will work on pain and nausea control, can resume NPO if needed. Will add bowel regimen -02/10: Escalated bowel regimen, continue supportive care and advance diet to full liquids, can likely try transitional diet tomorrow and proceed with DC planning #UTI due to pansensitive E. coli ? UA is consistent with UTI ? Continue with Rocephin, started on antibiotics 02/05 #HTN ? Stable, slightly elevated on admission today due to pain ? Continue with her home metoprolol, will add lisinopril -02/10: Increase lisinopril, was on 10 twice daily, increased to 20 mg in the a.m. and 10 in the PM #Anxiety/depression ? Stable ? Continue with all of her home medications #Hx GCA -Continue prednisone DVT: SCDs Time spent w/ chart review, pt interview/evaluation, discussing with team members 30 mins Charges/Coding Visit Charges Inpatient E&M: 73933 Subs Hosp L2
[2023-02-10] MEDS: Ceftriaxone 1 GM/50 ML BAG IV (08:14)
[2023-02-10] MEDS: Nystatin Powder 15gm Bottle 1 APPLIC TOPICAL ×2 (08:18→22:40)
[2023-02-10] MEDS: predniSONE 20 MG Tablet 60 MG PO (08:19)
[2023-02-10] MEDS: Metoprolol(XL)Succ 25 MG Tablet PO (08:20)
[2023-02-10] MEDS: Pantoprazole Sodium 20 MG Tablet PO ×2 (08:20→22:40)
[2023-02-10] MEDS: Lisinopril 10 MG Tablet PO ×2 (08:20→22:40)
[2023-02-10] MEDS: buPROPion (XL) 150 MG TABLET.XL PO (08:21)
[2023-02-10] MEDS: Sertraline 50 MG Tablet PO (08:21)
[2023-02-10] MEDS: Polyethylene Glycol 3350 17 GM PACKET PO ×2 (08:28→22:41)
[2023-02-10] MEDS: 0.9% Saline Lock 10 ML Syringe IV (08:29)
[2023-02-10] MEDS: Potassium Chloride 10mEq/100mL 10 MEQ/100 ML IV.SOLN. 100 MEQ IV BOLUS ×4 (10:34→14:37)
[2023-02-10] MEDS: Senna/Docusate Sodium 1 Tablet 2 TABLET PO ×2 (12:03→22:40)
[2023-02-11] VITALS (8 sets, daily range): BP systolic 137–171; BP diastolic 82–98; PULSE 61–71; RESP 16–18; TEMP 36.6–36.8; O2SAT 94–100
[2023-02-11] MEDS: 0.9% Normal Saline 1,000 ML 100 ML IV (03:21)
[2023-02-11 07:06] LABS: Anion Gap 5 (5-15); BUN 5 mg/dL (7-18); BUN/Creat Ratio 7.1 RATIO (10-20); Calcium,Total 7.8 mg/dL (8.5-10.1); Chloride 110 mmol/L (98-107); EST Glomerular Filtration Rate 88 mL/min (>60); Est Glom Filt Rate - Afr Amer 107 mL/min (>60); Estimated Creatinine Clearance 41.19 ml/min; Glucose 94 mg/dL (74-106); Sodium Level 143 mmol/L (136-145)
[2023-02-11] MEDS: Potassium Chloride Oral Tablet 20 MEQ 60 MEQ PO (09:02)
[2023-02-11] MEDS: Nystatin Powder 15gm Bottle 1 APPLIC TOPICAL (09:03)
[2023-02-11] MEDS: predniSONE 20 MG Tablet 60 MG PO (09:03)
[2023-02-11] MEDS: Pantoprazole Sodium 20 MG Tablet PO (09:04)
[2023-02-11] MEDS: Ceftriaxone 1 GM/50 ML BAG IV (09:04)
[2023-02-11] MEDS: Lisinopril 10 MG Tablet PO ×2 (09:08→09:10)
[2023-02-11] MEDS: buPROPion (XL) 150 MG TABLET.XL PO (09:08)
[2023-02-11] MEDS: Sertraline 50 MG Tablet PO (09:09)
[2023-02-11] MEDS: Metoprolol(XL)Succ 25 MG Tablet PO (09:09)
--- NOTE | 2023-02-11 09:53 | DS.PCM_ITS ---
Providers Date of Admission: 02/04/23 Date of Discharge: 02/11/23 Primary Care Physician: Dr. Mauro Hastings MD Reason For Visit: ACUTE PANCREATITIS, UTI Diagnosis Discharge Diagnosis (1) Acute pancreatitis: Status: Acute Code(s): K85.90 - Acute pancreatitis without necrosis or infection, unspecified Plan # Acute pancreatitis/JUDE- resolved #UTI due to pansensitive E. coli #HTN #Anxiety/depression #Hx GCA Medications at Discharge Home Medications omeprazole 20 mg capsule,delayed release 20 mg PO DAILY gerd 10/25/16 calcium carbonate 600 mg-vitamin D3 10 mcg (400 unit) tablet 1 tab PO DAILY SUPPLEMENT 10/16/21 acetaminophen 500 mg tablet 1,000 mg (2 x 500 mg) PO Q6H PRN PRN Pain Score 1-10 #0 tabs 11/01/21 metoprolol succinate 25 mg tablet,extended release 24 hr 25 mg PO DAILY bp #90 tabs 01/08/23 benzonatate 100 mg capsule 100 mg PO TID PRN Cough 02/04/23 bupropion HCl 150 mg 24 hr tablet, extended release 150 mg PO DAILY 02/04/23 ergocalciferol (vitamin D2) 1,250 mcg (50,000 unit) capsule 1,250 mcg PO QWEEK Check with primary doctor 02/04/23 lorazepam 0.5 mg tablet 0.5 mg PO DAILY PRN Anxiety 02/04/23 melatonin 3 mg tablet 3 mg PO QHS Check with primary doctor 02/04/23 nystatin 100,000 unit/gram topical cream 1 applic topical BID Check with primary doctor 02/04/23 prednisone 20 mg tablet 60 mg PO DAILY 02/04/23 psyllium husk 3.4 gram/5.4 gram oral powder (Metamucil) 1 tbsp PO DAILY Check with primary doctor 02/04/23 quetiapine 50 mg tablet (Seroquel) 50 mg PO QHS Check with primary doctor 02/04/23 sertraline 50 mg tablet 50 mg PO DAILY 02/04/23 tocilizumab 162 mg/0.9 mL subcutaneous pen injector (Actemra ACTPen) 162 mg subcut QWEEK Check with primary doctor 02/04/23 lisinopril 10 mg tablet See Rx Instructions .Route .COMPLEX 30 days #90 tabs 02/11/23 polyethylene glycol 3350 17 gram oral powder packet 17 g PO BID 30 days #100 ea 02/11/23 potassium chloride 20 mEq tablet,extended release 20 meq PO DAILY 7 days #7 tabs 02/11/23 Hospital Course Summary of Care Provided Minutes Spent on Discharge: 35 Hospital Course: Patient is a 67-year-old female with a history of recurrent pancreatitis, GCA on prednisone, MRI, GERD who presented to [facility] 02/04/2023 with epigastric abdominal pain for [address] scan and lipase demonstrate pancreatitis as well as calcifications indicating probable chronic pancreatitis. Patient was also noted to have pansensitive E. coli UTI during her hospitalization was treated with a course of Rocephin. Patient had very slow improvement during her hospitalization but did continue to improve in a day of discharge was tolerating diet. She had JUDE on presentation which also improved with aggressive fluid resuscitation. On day of discharge patient anxious about going home due to living alone but was feeling better and was having bowel movements and nausea improved, ultimately due to patient doing well medically and doing well with physical therapy she was discharged home in stable condition with outpatient resources and home health. Discharge instructions as follows: -It is recommended to follow-up with Dr. Massey with GI in his office upon discharge due to your repeat episode of pancreatitis. Please call his office to schedule your establish care appointment (ph. [phone]) - It is recommended you take 20 mg of lisinopril in the morning and 10 at bedtime to help with her blood pressure -Would also recommend taking MiraLAX twice daily 17 g to maintain regular bowel movements -Recommend taking potassium 20 meq daily for 7 days and having lab work rechecked by your primary care physician (BMP) to check your potassium and kidney function at that time to assess for any further changes or continuations that may be needed. Please call their office upon discharge to obtain order for lab work -Any new prescriptions have been sent to your preferred pharmacy on file -Please call your primary care provider's office upon discharge to schedule a hospital follow up within 1 week. -For any concerning signs or symptoms please call 911 or proceed to the nearest emergency department Physical Exam Narrative General: Alert, oriented, no apparent distress HEENT: Atraumatic, normocephalic Eyes: Anicteric, normal conjunctiva, extraocular movements grossly intact Neck: Supple Respiratory: Clear to auscultation bilaterally, normal respiratory effort Cardiovascular: Regular rate and rhythm GI: Nondistended, nontender, no rebound, guarding, rigidity Extremities: No significant pitting edema Musculoskeletal: Moving all extremities Neuro: No overt focal neurological deficits Skin: No rashes appreciated Psych: Cooperative Weight / BMI Weight Weight: 114.94 kg Body Mass Index (BMI) 47.8 ABG / Lab / Microbiology Data 02/10/23 06:01 02/11/23 05:15 Laboratory: Laboratory Results - last 24 hr 02/11/23 05:15: Sodium 143, Potassium 3.0 L, Chloride 110 H, Carbon Dioxide 28.0, Anion Gap 5, BUN 5 L, Creatinine 0.70, Estim Creat Clear Calc 41.19, Est GFR (MDRD) Af Amer 107, Est GFR (MDRD) Non-Af 88, BUN/Creatinine Ratio 7.1 L, Glucose 94, Calcium 7.8 L Microbiology: Microbiology 02/04/23 05:45 Urine, Clean Catch Urine Culture - Final Escherichia coli D/C Instructions Discharge Diet: Light diet - advance as tolerated Meaningful Use Info Meaningful Use Diagnoses (Choose all that apply): None applicable Discharge Plan Admission Admit Date/Time: 02/04/23 07:49 Primary Reason for Your Visit: Pancreatitis Attending Provider: Samra Agee Primary Care Provider: Mauro Hastings Consulting Providers: Tony Shine Instructions Patient Instructions: Pancreatitis Acute Dc Additional Instructions / Restrictions: DISCHARGE INSTRUCTIONS PLEASE READ *Please take this with you to your next doctors appointment* -It is recommended to follow-up with Dr. Masesy with GI in his office upon discharge due to your repeat episode of pancreatitis. Please call his office to schedule your establish care appointment (ph. [phone]) - It is recommended you take 20 mg of lisinopril in the morning and 10 at bedtime to help with her blood pressure -Would also recommend taking MiraLAX twice daily 17 g to maintain regular bowel movements -Recommend taking potassium 20 meq daily for 7 days and having lab work rechecked by your primary care physician (BMP) to check your potassium and kidney function at that time to assess for any further changes or continuations that may be needed. Please call their office upon discharge to obtain order for lab work -Any new prescriptions have been sent to your preferred pharmacy on file -Please call your primary care provider's office upon discharge to schedule a hospital follow up within 1 week. -For any concerning signs or symptoms please call 911 or proceed to the nearest emergency department Discharge Orders/Prescriptions Prescriptions: New polyethylene glycol 3350 17 gram Powder In Packet 17 g PO BID 30 Days Qty: 100 0RF lisinopril 10 mg Tablet See Rx Instructions .ROUTE .COMPLEX 30 Days Qty: 90 0RF Rx Instructions: 20mg (2 tabs) in the morning and 10mg (1 tab) at night potassium chloride 20 mEq tablet extended release 20 meq PO DAILY 7 Days Qty: 7 0RF Continued omeprazole 20 MG capsule 20 mg PO DAILY calcium carbonate-vitamin D3 600 mg-10 mcg (400 unit) tablet 1 tab PO DAILY acetaminophen 500 mg Tablet 1,000 mg PO Q6H PRN PRN (Reason: Pain Score 1-10) Qty: 0 0RF prednisone 20 mg tablet 60 mg PO DAILY sertraline 50 mg tablet 50 mg PO DAILY bupropion HCl 150 mg tablet extended release 24 hr 150 mg PO DAILY Actemra ACTPen 162 mg/0.9 mL pen injector 162 mg SUBCUT QWEEK Patient Comments: pt states that she was to start it this past Saturday02/01/23 but was unsure how to give it so she did not take it. Pt will call the MD who prescribed it on Saturday to figure out what she needs to since she did not get her first dose. melatonin 3 mg Tablet 3 mg PO QHS lorazepam 0.5 mg Tablet 0.5 mg PO DAILY PRN (Reason: Anxiety) benzonatate 100 mg Capsule 100 mg PO TID PRN (Reason: Cough) nystatin 100,000 unit/gram Cream 1 applic TOPICAL BID ergocalciferol (vitamin D2) 1,250 mcg (50,000 unit) Capsule 1,250 mcg PO QWEEK quetiapine [Seroquel] 50 mg Tablet 50 mg PO QHS Patient Comments: Patient says she is not taking this, stopped in December 02 Metamucil 3.4 gram/5.4 gram Powder 1 tbsp PO DAILY Rx Instructions: mix into at least 8 oz of water or juice before administering metoprolol succinate 25 mg tablet extended release 24 hr 25 mg PO DAILY Qty: 90 3RF Discontinued citalopram [Celexa] 20 mg Tablet 20 mg PO DAILY Referrals / Follow Up: Friend,Milan, DO [Med Staff - Active Staff] - (It is recommended to follow-up with Dr. Massey with GI in his office upon discharge due to your repeat episode of pancreatitis. Please call his office to schedule your establish care appointment (ph. [phone])) Mauro Hastings MD [Primary Care Provider] - 02/18/23 2:00 pm (Arrive at 1:45PM Bring Insurance Card and Photo ID. ) Disposition Disposition (needs filled in before D/C Order can be placed): Home Health Service Charges/Coding Visit Charges Inpatient E&M: 80621 Disch Hosp >30min
--- NOTE | 2023-02-11 09:58 | CASEMGMT ---
Addendum entered by Montserrat Fan 02/11/23 12:29: Pt delivered FWW, signed consignment form. Referral to [employer] via careport with documents. Addendum entered by Montserrat Fan 02/11/23 11:31: Pt does not qualify for home oxygen. Notified trust evaluation supervisor of need for FWW. Addendum entered by Montserrat Fan 02/11/23 10:24: Pt to be taken home by w/c van via caresource. Cancelled [facility] van. [facility] will see pt on Saturday. Addendum entered by Montserrat Fan 02/11/23 10:11: JESSA ARORA into pt room, pt is aware that [facility] is set up for her, she will receive a FWW to go home with, she will be tested for oxygen and that that [facility] will transport her home at 2pm. Pt also aware that the RN MAITE will be in touch with her CM so her services can resume. Pt states Zoey Curry has already touched base with her this morning. Pt states she cannot go home with [facility] van. TC to therapy to confirm. Pt wishes to pay for an ambulette. Discussed with SW. Original Note: JESSA ARORA made aware that pt is ready for dc. TC to Jacqueline at [facility] to make aware, she will call back to make aware of SOC date. TC to [facility] transportation, pt can be taken home at 2pm. Notified pt nurse.
--- NOTE | 2023-02-11 10:30 | CASEMGMT ---
Social Work Pt to be discharged home today with concerns regarding transportation. SW called [facility] Prov[facility] a Ride and requested transport via Wheelchair van with wheelchair to be provided. nutritional yeast supervisor time between 2-4pm. Confirmation #[id number]. Pt and nurse updated on d/c time. Discharge information faxed to Zeoy Lin Sexual Assault Counselor at [facility] with request to restart services. ART Humphrey
--- NOTE | 2023-02-13 12:36 | NURSING ---
pt called at home regarding home medication left behind JIM Medina. pt states she has no transportation or contacts that would be able to machine operator picker the medication and requests [facility] disposes of the medication. Discussed with Case demetria Mariano.
== END 2023-02-11 14:03 | disposition home health service (06) | DRG 439 ==
LOC: ED 07:49 → MS3 08:18
PROVIDERS: Admitting Provider Family Medicine; Emergency Provider Emergency Medicine; PCP Family Medicine; Visit Provider Internal Medicine
DX: K85.90 Acute pancreatitis without necrosis or infection, unspecified (principal); N17.9 Acute kidney failure, unspecified; Z68.42 Body mass index [BMI] 45.0-49.9, adult; N39.0 Urinary tract infection, site not specified; M31.6 Other giant cell arteritis; E66.01 Morbid (severe) obesity due to excess calories; F41.9 Anxiety disorder, unspecified; I10 Essential (primary) hypertension; E78.00 Pure hypercholesterolemia, unspecified; F32.A Depression, unspecified; Z87.891 Personal history of nicotine dependence; Z79.52 Long term (current) use of systemic steroids; B96.20 Unspecified Escherichia coli [E. coli] as the cause of diseases classified elsewhere; Z79.899 Other long term (current) drug therapy
CPT/HCPCS: 36415; 74176; 74181; 80048; 80053; 80061; 80076; 81001; 82784; 82787; 83605; 83690; 84165; 85025; 85652; 86140; 86225; 86235; 86334; 87077; 87086; 87088; 87186; 93005; 97110; 97116; 97162; 97166; 97530; 97535; 99285; J7030; J7040; A4216; J2405; J3490

== ENCOUNTER 2023-02-20 09:17 | Outpatient (RCR) | payer MEDICARE, MEDICAID, SELFPAY ==
[2023-02-20 09:29] LABS: Mucous, Urine 0 SEEN /hpf (<or=2+); Red Blood Cells-Urine 0 SEEN /hpf (0-5)
[2023-02-20 09:34] LABS: Color, Urine Yellow (Yellow); Glucose, Dipstick Normal (Normal); Ketone-Dipstick 15 mg/dl (Negative); Leukocyte Esterase-Dipstick 100 /ul (Negative); Nitrite-Dipstick Negative (Negative); Occult Blood-Urine Negative /ul (Negative); Protein-Dipstick 15 mg/dl (Negative); Specific Gravity, Urine 1.025 (1.002-1.030); Urine Bilirubin Dipstick Negative (Negative); Urine Clarity Sl. Cloudy (Clear); Urine Urobilinogen Normal (Normal)
[2023-02-20 09:43] LABS: Bacteria 1+ /hpf (None Seen); Squamous Epithelial Cells - UA 0-5 SEEN /hpf (5-10); White Blood Cells 10-25 SEEN /hpf (0-5)
== END 2023-03-11 21:05 | disposition home or self-care (01) ==
LOC: HHLAB 09:17
PROVIDERS: PCP Family Medicine; Referring Provider Family Medicine; Visit Provider Family Medicine
DX: K85.90 Acute pancreatitis without necrosis or infection, unspecified (principal); M31.6 Other giant cell arteritis; I10 Essential (primary) hypertension
CPT/HCPCS: 81001; 87086

== ENCOUNTER 2023-02-22 11:39 | Inpatient (IN) | payer MEDICARE, MEDICAID, SELFPAY ==
[2023-02-22 11:40] VITALS: BP 186/87; PULSE 64; RESP 18; TEMP 36.9; O2SAT 95; BMI 46.6
[2023-02-22] MEDS: Morphine 4 MG/ML Syringe IV (12:09)
[2023-02-22] MEDS: 0.9% Normal Saline 1,000 ML 1000 ML IV (12:09)
[2023-02-22] MEDS: Ondansetron 4 MG/2 ML Vial IV (12:09)
--- NOTE | 2023-02-22 12:14 | CT_ITS ---
STUDY: CT ABDOMEN AND PELVIS WITH CONTRAST REASON FOR EXAM: Female, 67 years old. Left lower quadrant pain. Recent history of pancreatitis. RADIATION DOSAGE (If Supplied By Facility): CTDIvol = ( 23.34 ) mGy, DLP = ( 1706.72 ) mGycm TECHNIQUE: Transaxial images were obtained from the dome of the diaphragm to the symphysis pubis without oral contrast. IV 100mL Isovue-370 was administered. Sagittal and coronal images were reconstructed. Individualized dose optimization techniques were used for this CT. COMPARISON: Comparison is made with prior study dated February 04, 2023. FINDINGS: The visualized lung bases are unremarkable. The visualized portions of the heart are within normal limits. Normal liver. The patient is status post cholecystectomy. Several subcentimeter cysts are seen in the spleen. There are pancreatic calcifications in the distribution of the ducts consistent with chronic pancreatitis. Normal bilateral adrenal glands. Normal right kidney. Normal left kidney. Incidental note is made of a left retroaortic renal vein. Normal visualized stomach. Normal small intestine. There are scattered colonic diverticula consistent with diverticulosis. There is non-visualization of the appendix. Normal abdominal aorta. Normal inferior vena cava. Normal retroperitoneum. Normal urinary bladder. The patient is status post cholecystectomy. Normal abdominal wall. Normal osseous structures. CT/Abdomen/Pelvis W IV Cont ONLY IMPRESSION: Punctate calcifications throughout the pancreas suggestive of chronic pancreatitis. No acute abnormality is seen. The patient is status post cholecystectomy and hysterectomy. Electronically Signed: César Do MD at 13:43 EDT ,
[2023-02-22 12:18] LABS: Absolute Lymphocyte Count 1.14 X10^3/uL (0.83-4.51); Absolute Neutrophil Count 4.1 X10^3/uL (2.0-7.7); Basophil# 0.02 X10^3/uL; Basophil% 0.3 % (0-1); Eosinophil# 0.03 X10^3/uL; Eosinophils% 0.5 % (0-5); Hematocrit 38.3 % (37-47); Hemoglobin 12.3 g/dL (12.0-15.0); Lymphocyte # 1.14 X10^3/ul (0.83-4.51); Lymphocyte % 18.5 % (19-41); Mean Corp Hgb Conc 32.1 g/dL (32-36); Mean Corpuscular Hgb 28.2 pg (27.0-32.0); Mean Corpuscular Volume 87.8 fL (81-99); Monocyte# 0.77 X10^3/uL; Monocyte% 12.5 % (0-10); NRBC Flagged by Analyzer 0 % (0-5); Neutrophil # 4.13 X10^3/uL (2.7-7.7); Neutrophil % 67.1 % (47-70); Platelet Count 219 K/mm3 (150-450); RBC Distribution Width CV 14.3 % (11.6-14.6); Red Blood Count 4.36 M/mm3 (4.2-5.4); White Blood Count 6.2 K/mm3 (4.4-11.0)
--- NOTE | 2023-02-22 12:26 | ED.VIS.GI ---
HPI HPI - GI History of Present Illness Chief Complaint: Abd Pain Narrative Narrative: 67-year-old female presenting with abdominal pain. She has history of recurrent pancreatitis. She was just hospitalized for this and also had a UTI at the same time. She is on antibiotics in the hospital. She states that her pain never actually went away but it was tolerable and over the last 24 hours her pain is worse. She does state her pain is typically just to the left of center of her epigastrium and today she is having bilateral lower back pain in addition to it and states that the left lower quadrant of her abdomen is tender. She had some diarrhea over the last 24 hours. She reports that her home health health care manager took her urine a couple of days ago and she was told she has UTI now. She has not had a fever. No black or bloody stools. [facility] Medical History Acute recurrent pancreatitis Anemia Anxiety Chronic pain Colon polyps Depression Essential hypertension Former smoker GCA (giant cell arteritis) GERD (gastroesophageal reflux disease) Lung nodules Morbid obesity Multiple thyroid nodules Obesity Osteoarthritis Osteoporosis Pancreatitis Poor dentition Pure hypercholesterolemia Thoracic aortic aneurysm without rupture Vision changes Home Medications omeprazole 20 mg capsule,delayed release 20 mg PO DAILY gerd 10/25/16 [History Last Taken 10/16/21] calcium carbonate 600 mg-vitamin D3 10 mcg (400 unit) tablet 1 tab PO DAILY SUPPLEMENT 10/16/21 [History Last Taken 10/16/21] acetaminophen 500 mg tablet 1,000 mg (2 x 500 mg) PO Q6H PRN PRN Pain Score 1-10 #0 tabs 11/01/21 [Rx Last Taken Unknown] metoprolol succinate 25 mg tablet,extended release 24 hr 25 mg PO DAILY bp #90 tabs 01/08/23 [Rx Last Taken Unknown] bupropion HCl 150 mg 24 hr tablet, extended release 150 mg PO DAILY 02/04/23 [History Last Taken Unknown] ergocalciferol (vitamin D2) 1,250 mcg (50,000 unit) capsule 1,250 mcg PO TH 02/04/23 [History Last Taken 02/21/23] nystatin 100,000 unit/gram topical cream 1 applic topical BID Check with primary doctor 02/04/23 [History Last Taken Unknown] sertraline 50 mg tablet 50 mg PO DAILY 02/04/23 [History Last Taken Unknown] tocilizumab 162 mg/0.9 mL subcutaneous pen injector (Actemra ACTPen) 162 mg subcut QWEEK Check with primary doctor 02/04/23 [History Last Taken Unknown] lisinopril 10 mg tablet See Rx Instructions .Route .COMPLEX 30 days #90 tabs 02/11/23 [Rx Last Taken Unknown] potassium chloride 20 mEq tablet,extended release 20 meq PO DAILY 7 days #7 tabs 02/11/23 [Rx Last Taken Unknown] Allergy/AdvReac Type Severity Reaction Status Date / Time No Known Allergies Allergy Verified 02/04/23 05:09 Family History Mother Colon cancer Father Cancer Lung Sister Breast cancer Brother Cancer Lung Surgical History History of carpal tunnel surgery History of cholecystectomy History of total hysterectomy Social History household members: none Smoking Status: Former smoker alcohol intake: never substance use type: does not use caffeine: Yes Type: coffee Number of servings: 2 EXAM Physical Exam Const Vital Signs: 02/22/23 11:40 02/22/23 14:00 Temperature 98.5 F Temperature Source Temporal Pulse Rate 64 64 Respiratory Rate 18 14 Blood Pressure 186/87 H 183/61 H Blood Pressure Mean 120 101 Pulse Ox 95 98 Oxygen Delivery Method Room Air Room Air Positive well nourished General Appearance ED: NAD; Negative for pallor HEENT Reports moist mucous membranes normocephalic and atraumatic Eyes PERRL and EOMs intact bilaterally General Eye ED: Negative for pale conjunctiva or scleral icterus Neck no lymphadenopathy Resp normal respiratory effort and clear to auscultation bilaterally Cardio regular rate and regular rhythm GI Palpation: tender epigastric, LLQ and LUQ Back/Spine no CVA tenderness Neuro CN's II-XII intact bilaterally and moves all extremities Sensorium / Orientation: alert Motor Exam: strength 5/5 throughout Psych mental status grossly normal Skin no wounds General Skin Exam: Negative for jaundice or pallor MDM MDM MDM Narrative Medical decision making narrative: Patient presenting with abdominal pain which is somewhat atypical of her pancreatitis. She does have pain in that area but also has flank pain bilaterally and left lower quadrant pain and she is having diarrhea. Differential includes pancreatitis, colitis, gastritis, diverticulitis, UTI, pyelonephritis, small bowel obstruction, C. difficile colitis. CBC was obtained to assess white blood cell count, hemoglobin, platelets. CMP to assess liver function, renal function, electrolytes, glucose. Lipase to assess for pancreatitis. Urinalysis to assess for UTI. Patient given IV fluids, morphine, Zofran. CBC showed no significant leukocytosis. Hemoglobin chronic are stable. Platelets normal. Creatinine is slightly elevated at 1.22 she was given IV fluids already. Potassium slight low at 3.1. Lipase 172 however this is going down. Urinalysis was negative for infection. I obtained a CT of the abdomen pelvis with IV contrast which shows punctate calcifications of the pancreas and the patient does have chronic pancreatitis. Went over the results with the patient and she did not feel comfortable going home given her pain and she feels weak. I discussed this with the hospitalist and they are amenable to admission. Impression: 1. Abdominal pain 2. Nausea/vomiting Lab Data Labs: Laboratory Results - last 24 hr 02/22/23 02/22/23 12:10 13:58 WBC 6.2 RBC 4.36 Hgb 12.3 Hct 38.3 MCV 87.8 MCH 28.2 MCHC 32.1 RDW Std Deviation 44.0 H RDW Coeff of Janey 14.3 Plt Count 219 MPV 9.0 Immature Gran % (Auto) 1.100 H Neut % (Auto) 67.1 Lymph % (Auto) 18.5 L [place] % (Auto) 12.5 H Eos % (Auto) 0.5 Baso % (Auto) 0.3 Absolute Neuts (auto) 4.1 Absolute Lymphs (auto) 1.14 Nucleated RBC % 0 Sodium 138 Potassium 3.1 L Chloride 104 Carbon Dioxide 25.0 Anion Gap 9 BUN 28 H Creatinine 1.22 H Estim Creat Clear Calc 33.77 Est GFR (MDRD) Af Amer 57 L Est GFR (MDRD) Non-Af 47 L BUN/Creatinine Ratio 23.0 H Glucose 111 H Calcium 8.7 Total Bilirubin 2.20 H AST 37 ALT 50 Alkaline Phosphatase 64 Total Protein 6.3 L Albumin 3.5 Globulin 2.8 Albumin/Globulin Ratio 1.2 Lipase 172 H Urine Color Yellow Urine Clarity Clear Urine pH 5.0 Ur Specific [place] 1.020 Urine Protein 15 H Urine Glucose (UA) Normal Urine Ketones 5 H Urine Occult Blood Negative Urine Nitrite Negative Urine Bilirubin Negative Urine Urobilinogen Normal Ur Leukocyte Esterase 25 H Urine RBC 0 SEEN Urine WBC 0-5 SEEN Ur Squamous Epith Cells 0 SEEN Urine Bacteria 0 SEEN Urine Mucus 0 SEEN Radiography Diagnostic Testing: Clinical Impression(s) from Imaging Studies Abdomen/Pelvis CT 02/22/23 12:14 IMPRESSION: Punctate calcifications throughout the pancreas suggestive of chronic pancreatitis. No acute abnormality is seen. The patient is status post cholecystectomy and hysterectomy. Electronically Signed: César Do MD at 13:43 EDT , Discharge Plan Triage Chief Complaint: Abd Pain ED Provider: Kyler Fox Dx/Rx/DC Orders Prescriptions: No Action omeprazole 20 MG capsule 20 mg PO DAILY calcium carbonate-vitamin D3 600 mg-10 mcg (400 unit) tablet 1 tab PO DAILY acetaminophen 500 mg Tablet 1,000 mg PO Q6H PRN PRN (Reason: Pain Score 1-10) Qty: 0 0RF sertraline 50 mg tablet 50 mg PO DAILY bupropion HCl 150 mg tablet extended release 24 hr 150 mg PO DAILY Actemra ACTPen 162 mg/0.9 mL pen injector 162 mg SUBCUT QWEEK Patient Comments: pt states that she was to start it this past Saturday02/01/23 but was unsure how to give it so she did not take it. Pt will call the MD who prescribed it on Saturday to figure out what she needs to since she did not get her first dose. nystatin 100,000 unit/gram Cream 1 applic TOPICAL BID ergocalciferol (vitamin D2) 1,250 mcg (50,000 unit) Capsule 1,250 mcg PO TH lisinopril 10 mg Tablet See Rx Instructions .ROUTE .COMPLEX 30 Days Qty: 90 0RF Rx Instructions: 20mg (2 tabs) in the morning and 10mg (1 tab) at night potassium chloride 20 mEq tablet extended release 20 meq PO DAILY 7 Days Qty: 7 0RF metoprolol succinate 25 mg tablet extended release 24 hr 25 mg PO DAILY Qty: 90 3RF Primary Care Provider: Mauro Hastings Referrals: Mauro Hastings MD [Primary Care Provider] -
[2023-02-22 12:36] LABS: ALB/GLOB Ratio 1.2 RATIO (0.9-2.4); AST(SGOT) 37 U/L (15-37); Alanine Aminotransfer ALT/SGPT 50 U/L (13-56); Albumin, Serum 3.5 g/dL (3.2-5.0); Alkaline Phosphatase 64 U/L (45-117); Anion Gap 9 (5-15); BUN 28 mg/dL (7-18); Calcium,Total 8.7 mg/dL (8.5-10.1); Chloride 104 mmol/L (98-107); Creatinine, Serum 1.22 mg/dL (0.55-1.02); EST Glomerular Filtration Rate 47 mL/min (>60); Est Glom Filt Rate - Afr Amer 57 mL/min (>60); Estimated Creatinine Clearance 33.77 ml/min; Globulin 2.8 g/dL (2.2-4.2); Glucose 111 mg/dL (74-106); Lipase 172 U/L (13-75); Potassium 3.1 mmol/L (3.5-5.1); Protein, Total 6.3 g/dL (6.4-8.2); Sodium Level 138 mmol/L (136-145)
[2023-02-22 14:00] VITALS: BP 183/61; PULSE 64; RESP 14; O2SAT 98
[2023-02-22 14:02] LABS: Bacteria 0 SEEN /hpf (None Seen); Mucous, Urine 0 SEEN /hpf (<or=2+); Red Blood Cells-Urine 0 SEEN /hpf (0-5); Squamous Epithelial Cells - UA 0 SEEN /hpf (5-10)
[2023-02-22 14:06] LABS: Color, Urine Yellow (Yellow); Glucose, Dipstick Normal (Normal); Ketone-Dipstick 5 mg/dl (Negative); Leukocyte Esterase-Dipstick 25 /ul (Negative); Nitrite-Dipstick Negative (Negative); Occult Blood-Urine Negative /ul (Negative); Protein-Dipstick 15 mg/dl (Negative); Urine Bilirubin Dipstick Negative (Negative); Urine Clarity Clear (Clear); Urine Urobilinogen Normal (Normal)
[2023-02-22 14:20] LABS: White Blood Cells 0-5 SEEN /hpf (0-5)
--- NOTE | 2023-02-22 16:44 | NURSING ---
DR MCCONNELL FOR DR CANDELARIA
[2023-02-22 16:50] VITALS: BP 177/87; PULSE 64; PULSE 76; RESP 14; TEMP 36.4; O2SAT 98
--- NOTE | 2023-02-22 16:50 | HP.PCM.HOS_ITS ---
HPI - General General Date of Admission: 02/22/23 Date of Service: 02/22/23 Chief Complaint: Nausea vomiting and abdominal pain mainly upper quadrants HPI Narrative AUGUSTINE PENA, is a 67 F with history of chronic pancreatitis and recent adm ission between 02/04/2023 to 02/11/2023 came to ER for upper quadrant abdominal pain mainly left upper quadrant that is started about 02/16/2023. She denies abdominal pain in lower quadrants. Abdominal pain is mainly left upper quadrant is goes to back. She has chronic abdominal pain from pancreatitis but got worse since 02/16/2023. She also has nausea vomiting and diarrhea that is started on 02/19/2023. No fever or chills. She was recently treated with antibiotic ceftriaxone for 7 days during hospital course for E. coli UTI. It is also morbidly obese and arthritis of right knee, difficult ambulation and not able to take care of herself. Vitals in the ED shows BP 186/87. Heart rate normal. No hypoxia or tachypnea. Labs reviewed. She had CT abdomen which shows punctate calcifications thro ughout the pancreas suggestive of chronic pancreatitis. No acute abnormality seen. Status post cholecystectomy and hysterectomy. [facility] Medical History (Updated 02/22/23 @ 17:[address] Wilbur Wolff MD) Acute recurrent pancreatitis Anemia Anxiety Chronic pain Colon polyps Depression Essential hypertension Former smoker GCA (giant cell arteritis) GERD (gastroesophageal reflux disease) Lung nodules Morbid obesity Multiple thyroid nodules Obesity Osteoarthritis Osteoporosis Pancreatitis Poor dentition Pure hypercholesterolemia Thoracic aortic aneurysm without rupture Vision changes Home Medications omeprazole 20 mg capsule,delayed release 20 mg PO DAILY ACID REFLUX 10/25/16 [History Last Taken 02/21/23] calcium carbonate 600 mg-vitamin D3 10 mcg (400 unit) tablet 1 tab PO DAILY SUPPLEMENT 10/16/21 [History Last Taken 02/21/23] metoprolol succinate 25 mg tablet,extended release 24 hr 25 mg PO DAILY BLOOD PRESSURE #90 tabs 01/08/23 [Rx Last Taken 02/21/23] bupropion HCl 150 mg 24 hr tablet, extended release 150 mg PO DAILY DEPRESSION 02/04/23 [History Last Taken 02/21/23] ergocalciferol (vitamin D2) 1,250 mcg (50,000 unit) capsule 1,250 mcg PO TH 02/04/23 [History Last Taken 02/21/23] nystatin 100,000 unit/gram topical cream 1 applic topical BID PRN ANTIFUNGAL 02/04/23 [History Last Taken Unknown] sertraline 50 mg tablet 50 mg PO DAILY DEPRESSION 02/04/23 [History Last Taken 02/21/23] tocilizumab 162 mg/0.9 mL subcutaneous pen injector (Actemra ACTPen) 162 mg subcut TU RHEUMATOID ARTHRITIS 02/04/23 [History Last Taken 02/19/23] potassium chloride 20 mEq tablet,extended release 20 meq PO DAILY SUPPLEMENT 7 days #7 tabs 02/11/23 [Rx Last Taken 02/21/23] lisinopril 10 mg tablet 10 mg PO QHS BLOOD PRESSURE 02/22/23 [History Last Taken 02/21/23] lisinopril 10 mg tablet 20 mg PO DAILY BLOOD PRESSURE 02/22/23 [History Last Taken 02/21/23] prednisone 5 mg tablet See Taper PO DAILY STEROID 02/22/23 [History Last Taken 02/21/23] Allergy/AdvReac Type Severity Reaction Status Date / Time No Known Allergies Allergy Verified 02/04/23 05:09 Family History Mother Colon cancer Father Cancer Lung Sister Breast cancer Brother Cancer Lung Surgical History History of carpal tunnel surgery History of cholecystectomy History of total hysterectomy Social History household members: none Smoking Status: Former smoker alcohol intake: never substance use type: does not use caffeine: Yes Type: coffee Number of servings: 2 ROS ROS Narrative Constitutional: Reports fatigue and weakness. No fever. HEENT: Reports systems reviewed and no addt'l complaints, except as documented Respiratory/Chest: No acute shortness of breath or respiratory distress or wheezing. CVS: No chest pain or pressure or tightness Gastrointestinal: Denies coffee ground emesis, hematemesis. Rest as described in HPI Genitourinary: Denies burning urination or new urinary tract symptoms Musculoskeletal: Chronic back pain mainly lumbar region. Bilateral knee arthritis. ROM limited. Neurologic: Denies seizure-like symptoms. No acute strokelike symptoms. skin: No ulcer. No rash Endocrinology: Reports systems reviewed and no addt'l complaints, except as documented Hematologic/Lymphatic: Reports systems reviewed and no addt'l complaints, except as documented Rest 14 ROS are negative except as mentioned in HPI Vital Signs Vital Signs Vital Signs: 02/22/23 11:40 02/22/23 14:00 Temperature 98.5 F Temperature Source Temporal Pulse Rate 64 64 Respiratory Rate 18 14 Blood Pressure 186/87 H 183/61 H Blood Pressure Mean 120 101 Pulse Ox 95 98 Oxygen Delivery Method Room Air Room Air Weight Weight: 246 lb 14.684 oz Body Mass Index (BMI) 46.6 Physical Exam Narrative General: Alert, Oriented x3, Cooperative, morbid obese BMI 46.7 kg/m?. HEENT: Atraumatic, PERRLA, EOMI, Normocephalic Oral: Oral mucosa dry. No Gingival or Mucosal Lesions/ Ulcerations Neck: Supple, No JVD, Negative Carotid Bruits Lungs: Air entry diminished in bilateral lung bases. No crepitation/rhonchi Cardiovascular: Regular rate, Regular Rhythm, Normal S1, Normal S2, No murmurs Abdomen: Tenderness present over left upper quadrant. Bowel Sounds Present, Soft, Non-Distended : Denies acute dysuria or Tract symptoms. No renal angle tenderness. No suprapubic tenderness. Extremities: Mild bilateral nonpitting edema, Capillary Refill Less than 3 Seconds Skin: No rashes, No breakdown Musculoskeletal/spine: Tenderness present on the left paraspinal muscles. Jorge Luis ateral knee arthritis right worse than left. Disequilibrium Neurological: Cranial nerves II-XII grossly intact, DTR 2+/4 and Symmetrical, Neuro grossly intact Psych/Mental Status: Flat affect. Results Lab / Micro Data 02/22/23 12:10 02/22/23 12:10 Labs: Laboratory Results - last 24 hr 02/22/23 12:10: WBC 6.2, RBC 4.36, Hgb 12.3, Hct 38.3, MCV 87.8, MCH 28.2, MCHC 32.1, RDW Std Deviation 44.0 H, RDW Coeff of Janey 14.3, Plt Count 219, MPV 9.0, Immature Gran % (Auto) 1.100 H, Neut % (Auto) 67.1, Lymph % (Auto) 18.5 L, [place] % (Auto) 12.5 H, Eos % (Auto) 0.5, Baso % (Auto) 0.3, Absolute Neuts (auto) 4.1, Absolute Lymphs (auto) 1.14, Nucleated RBC % 0, Sodium 138, Potassium 3.1 L, Chloride 104, Carbon Dioxide 25.0, Anion Gap 9, BUN 28 H, Creatinine 1.22 H, Estim Creat Clear Calc 33.77, Est GFR (MDRD) Af Amer 57 L, Est GFR (MDRD) Non-Af 47 L, BUN/Creatinine Ratio 23.0 H, Glucose 111 H, Calcium 8.7, Total Bilirubin 2.20 H, AST 37, ALT 50, Alkaline Phosphatase 64, Total Protein 6.3 L, Albumin 3.5, Globulin 2.8, Albumin/Globulin Ratio 1.2, Lipase 172 H 02/22/23 13:58: Urine Color Yellow, Urine Clarity Clear, Urine pH 5.0, Ur Specific [place] 1.020, Urine Protein 15 H, Urine Glucose (UA) Normal, Urine Ketones 5 H, Urine Occult Blood Negative, Urine Nitrite Negative, Urine Bilirubin Negative, Urine Urobilinogen Normal, Ur Leukocyte Esterase 25 H, Urine RBC 0 SEEN, Urine WBC 0-5 SEEN, Ur Squamous Epith Cells 0 SEEN, Urine Bacteria 0 SEEN, Urine Mucus 0 SEEN Radiology Impression Abdomen/Pelvis CT 02/22/23 12:14 IMPRESSION: Punctate calcifications throughout the pancreas suggestive of chronic pancreatitis. No acute abnormality is seen. The patient is status post cholecystectomy and hysterectomy. Electronically Signed: César Do MD at 13:43 EDT , Assessment & Plan Assessment/Plan (1) Acute recurrent pancreatitis: PLAN: Plan This 67-year-old female came to ED for severe abdominal pain almost 1 week along with nausea vomiting and diarrhea for 3 days 1. Acute on recurrent abdominal pain most likely due to acute on chronic pancreatitis/C. difficile colitis: [facility] IV fluid Ringer lactate. Mild hypokalemia and potassium replacement ordered. Keep patient n.p.o. Lipase mildly elevated 172. 2. Acute diarrhea with suspicion of C. difficile colitis:CT abdomen reviewed and shows scattered colonic diverticula but no diverticulitis. High suspicion of C. difficile. C. difficile test ordered. If positive will need oral vancomy landon. Patient recently had ceftriaxone for E. coli UTI. 3. JUDE most likely due to diarrhea/prerenal: Creatinine 0.7 baseline. Creatinine 1.2 on admission. Patient also had JUDE during previous admission. At that time creatinine was 1.88 on 02/04/2023 which returned to normal. IV fluid resuscitation. Hold lisinopril 4. Hypertension: Blood pressure is elevated. IV hydralazine for SBP more than 180 mmHg. Oral antihypertensive n.p.o. is allowed. 5. Chronic degenerative arthritis mainly knee arthritis, decreased ADL with with limited mobility and anxiety/depression: PT and OT ordered. Patient also looks mildly depressed. Home medication reconciliation done 6. Hx GCA -Continue prednisone DVT: Lovenox 40 mg subcu daily. Living will/advanced directive/end of life care: Patient does not have living will or advanced directive. After discussion of benefits/risks procedures invol brenda with full code, DNR CC arrest and DNR CC, the patient Was indecisive even after thinking a lot. She looked depressed from her quality of life. I suggested if she is unsure, she can be full code until further decision is made. She agreed with that Patient does want artificial life support including intubation, tube feed, ventilator and/chest compression, central venous catheter, vasopressor and DC shock if needed Total time spent in [id number] encounter in discussion of advanced dir ective 17 minutes. Charges/Coding Visit Charges Inpatient E&M: 63163 Init Hosp L3 Procedures Hospitalists Procedures: 26266 Advncd Care Plan 30 Min
--- NOTE | 2023-02-22 17:08 | NURSING ---
317 ENEDINA ABD PAIN, WEAKNESS
[2023-02-22 18:39] VITALS: BMI 44.9
[2023-02-22 18:48] VITALS: BP 160/78; PULSE 79; RESP 18; TEMP 36.3; O2SAT 95
[2023-02-22 19:31] LABS: Magnesium 1.9 mg/dL (1.6-2.6); Phosphorus 1.9 mg/dL (2.5-4.9)
[2023-02-22] MEDS: Lactated Ringers 1,000 ML 100 ML IV (20:13)
[2023-02-22] MEDS: Enoxaparin 40 MG/0.4 ML Syringe SC (20:13)
[2023-02-22] MEDS: predniSONE 10 MG Tablet 40 MG PO (20:14)
[2023-02-22] MEDS: Acetaminophen 325 MG Tablet 650 MG PO (20:14)
[2023-02-22] MEDS: 0.9% Saline Lock 10 ML Syringe IV (20:15)
[2023-02-22 20:29] VITALS: PULSE 62
[2023-02-22] MEDS: Metoprolol(XL)Succ 25 MG Tablet PO (20:29)
[2023-02-22] MEDS: Sertraline 50 MG Tablet PO (20:31)
[2023-02-22] MEDS: buPROPion (XL) 150 MG TABLET.XL PO (20:32)
[2023-02-22] MEDS: Potassium Chloride 10mEq/100mL 10 MEQ/100 ML IV.SOLN. 100 MEQ IV BOLUS ×2 (20:41→21:49)
[2023-02-22 20:54] VITALS: BP 167/85; PULSE 62; RESP 18; TEMP 36.3; O2SAT 96
[2023-02-23] MEDS: Lactated Ringers 1,000 ML 100 ML IV (06:19)
[2023-02-23] MEDS: Acetaminophen 325 MG Tablet 650 MG PO (06:19)
[2023-02-23 06:36] VITALS: BP 164/87; PULSE 60; RESP 16; TEMP 36.9; O2SAT 96
[2023-02-23 06:40] LABS: Absolute Lymphocyte Count 0.37 X10^3/uL (0.83-4.51); Absolute Neutrophil Count 2.8 X10^3/uL (2.0-7.7); Hematocrit 35.4 % (37-47); Lymphocyte # 0.37 X10^3/ul (0.83-4.51); Lymphocyte % 11.2 % (19-41); Mean Corp Hgb Conc 31.1 g/dL (32-36); Mean Corpuscular Volume 90.1 fL (81-99); NRBC Flagged by Analyzer 0 % (0-5); Neutrophil # 2.75 X10^3/uL (2.7-7.7); Neutrophil % 83.4 % (47-70); POSITIVE DIFFERENTIAL YES; Platelet Count 195 K/mm3 (150-450); RBC Distribution Width CV 14.2 % (11.6-14.6); RBC Distribution Width SD 45.5 fl (35.1-43.9); Red Blood Count 3.93 M/mm3 (4.2-5.4); White Blood Count 3.3 K/mm3 (4.4-11.0)
[2023-02-23 06:53] LABS: Differential Indicated SCAN CRITERIA MET
[2023-02-23 07:04] LABS: Anion Gap 7 (5-15); BUN 21 mg/dL (7-18); BUN/Creat Ratio 26.2 RATIO (10-20); Calcium,Total 7.9 mg/dL (8.5-10.1); Chloride 109 mmol/L (98-107); EST Glomerular Filtration Rate 76 mL/min (>60); Est Glom Filt Rate - Afr Amer 92 mL/min (>60); Estimated Creatinine Clearance 51.49 ml/min; Glucose 114 mg/dL (74-106); Potassium 4.5 mmol/L (3.5-5.1); Sodium Level 141 mmol/L (136-145)
[2023-02-23 08:08] VITALS: O2SAT 95
[2023-02-23 08:20] VITALS: BP 156/88; PULSE 67; RESP 16; TEMP 36.7; O2SAT 92
[2023-02-23] MEDS: Nystatin Powder 15gm Bottle 1 APPLIC TOPICAL (08:35)
[2023-02-23] MEDS: Enoxaparin 40 MG/0.4 ML Syringe SC (08:35)
[2023-02-23] MEDS: Potassium Chloride Oral Tablet 20 MEQ PO (08:35)
[2023-02-23] MEDS: predniSONE 10 MG Tablet 40 MG PO (08:35)
[2023-02-23 08:36] VITALS: PULSE 67
[2023-02-23] MEDS: Sertraline 50 MG Tablet PO (08:36)
[2023-02-23] MEDS: buPROPion (XL) 150 MG TABLET.XL PO (08:36)
[2023-02-23] MEDS: Metoprolol(XL)Succ 25 MG Tablet PO (08:36)
[2023-02-23 10:39] LABS: Platelet Estimate ADEQUATE (ADEQ); Red Cell Morphology NORM C+C NORMAL (NORM C&C)
[2023-02-23 12:06] VITALS: BP 143/100; PULSE 69; RESP 16; TEMP 36.5; O2SAT 94
--- NOTE | 2023-02-23 12:31 | DCINST_ITS ---
Discharge Instructions Diet Discharge Diet: Low fat / Low cholesterol and 2000 mg Sodium Diet Activity Discharge Activity: Return to Normal Activity Weight Bearing Status: Weight bearing as tolerated Dressing / Incision Call your doctor if you observe: Fever of 101 or Higher, Coldness, Increased Pain, Numbness or Tingling, Change in Color, Inability to urinate, Inability to have a bowel movement, Using more than 1 pad per hour, Shortness of breath, Dizziness, Fainting spells, Swelling in the ankles, Chest pain, Prolonged hiccupping, Increased palpitations (irregular heartbeat) and Calf discomfort Follow Up Care When: IN 2 WEEKS Test Results: Test results from this visit will be discussed in further detail at your follow- up appointment, if applicable. Discharge Plan Admission Admit Date/Time: 02/22/23 16:50 Primary Reason for Your Visit: Chronic Pancreatitis Attending Provider: Wilbur Wolff Primary Care Provider: Mauro Hastings Discharge Orders/Prescriptions Prescriptions: New Creon 36,000-114,000- 180,000 unit capsule,delayed release(DR/EC) 2 cap PO TID 30 Days Qty: 180 2RF Rx Instructions: administer with meals and/or snacks Continued calcium carbonate-vitamin D3 600 mg-10 mcg (400 unit) tablet 1 tab PO DAILY sertraline 50 mg tablet 50 mg PO DAILY bupropion HCl 150 mg tablet extended release 24 hr 150 mg PO DAILY Actemra ACTPen 162 mg/0.9 mL pen injector 162 mg SUBCUT Patient Comments: PT STATES THEY HAD THEIR FIRST INJECTION THIS PREVIOUS SATURDAY (02-19-23) nystatin 100,000 unit/gram Cream 1 applic TOPICAL BID PRN (Reason: ANTIFUNGAL) ergocalciferol (vitamin D2) 1,250 mcg (50,000 unit) Capsule 1,250 mcg PO TH potassium chloride 20 mEq tablet extended release 20 meq PO DAILY 7 Days Qty: 7 0RF prednisone 5 mg tablet See Taper PO DAILY Taper: Prednisone Taper 40 mg DAILY for 7 Days 35 mg DAILY for 7 Days 30 mg DAILY for 7 Days 25 mg DAILY for 7 Days 20 mg DAILY for 7 Days Rx Instructions: PT IS ON DAY 5 OF THIS TAPERED PREDNISONE PRESCRIPTION. THE PT STILL NEEDS TO TAKE THEIR DOSE FOR DAY 5 lisinopril 10 mg Tablet 10 mg PO QHS Patient Comments: PER RX INSTRUCTIONS, TAKE TWO TABLETS (20MG) BY MOUTH ONCE DAILY IN THE MORNING AND ONE TABLET (10MG) AT BEDTIME metoprolol succinate 25 mg tablet extended release 24 hr 25 mg PO DAILY Qty: 90 3RF Changed omeprazole 20 MG capsule 40 mg PO DAILY 30 Days Qty: 0 0RF Held lisinopril 10 mg tablet 20 mg PO DAILY Hold Instructions: Hold it Patient Comments: PER RX INSTRUCTIONS, TAKE TWO TABLETS (20MG) BY MOUTH ONCE DAILY IN THE MORNING AND ONE TABLET (10MG) AT BEDTIME Referrals / Follow Up: Milan Massey DO [Med Staff - Active Staff] - Within 1 Month ( For chronic pancreatitis) Mauro Hastings MD [Primary Care Provider] - Disposition Disposition (needs filled in before D/C Order can be placed): Home Health Service
--- NOTE | 2023-02-23 13:30 | CASEMGMT ---
JESSA ARORA chart review: Patient was admitted 02/04-02/11/23 for Acute pancreatitis and UTI. See JESSA ARORA assessment from 02/05. Patient was discharge to home with resumption of aide services, [facility], and [facility]. Patient returned 02/22/23 for N/V/D and abdominal pain and was admitted. Patient states she attended her follow-up appt with PCP. Patient did not call Dr. Massey's office to schedule appointment. JESSA AROAR encouraged patien to call and schedule appt. Patient wishes to return home with resumption of HHC with [facility]. Patient declined further needs or concerns at this time.
--- NOTE | 2023-02-23 14:57 | PCM.DC.SUM ---
Providers Date of Admission: 02/22/23 Date of Discharge: 02/23/23 Primary Care Physician: Dr. Mauro Hastings MD Reason For Visit: ABDOMINAL PAIN Diagnosis Discharge Diagnosis (1) Acute recurrent pancreatitis: Status: Acute Code(s): K85.90 - Acute pancreatitis without necrosis or infection, unspecified Plan Has Tomy 67-year-old female came to ED for severe abdominal pain almost 1 week along with nausea vomiting and diarrhea for 3 days 1. Acute on recurrent abdominal pain most likely due to acute on chronic pancreatitis: Patient is being admitted on MedSurg floor. IV fluid Ringer lactate. Mild hypokalemia and potassium replacement ordered. Keep patient n.p.o. Lipase mildly elevated 172. 02/23: Patient abdominal pain much better but he still feels discomfort over left upper quadrant due to chronic pancreatitis. Patient did not had bowel movement after admission therefore C. difficile unlikely. No fever. Patient is discharged on Creon and follow with GI Dr. Friend 2. Acute diarrhea, exact reason unclear:CT abdomen reviewed and shows scattered colonic diverticula but no diverticulitis. C. difficile test was ordered. There was suspicion of Clostridium difficile infection because she had antibiotic during recent admission for E. coli UTI but patient did not had bowel movement after admission therefore C. difficile colitis unlikely. 3. JUDE most likely due to diarrhea/prerenal: Creatinine 0.7 baseline. Creatinine 1.2 on admission. Patient also had JUDE during previous admission. At that time creatinine was 1.88 on 02/04/2023 which returned to normal. IV fluid resuscitation. Hold lisinopril 02/23: JUDE resolved. Resume lisinopril 10 mg daily. Gradually uptitrate. Patient was on 30 mg lisinopril daily. 4. Hypertension: Blood pressure is elevated. IV hydralazine for SBP more than 180 mmHg. Oral antihypertensive n.p.o. is allowed. 5. Chronic degenerative arthritis mainly knee arthritis, decreased ADL with with limited mobility and anxiety/depression: PT and OT ordered. Patient also looks mildly depressed. Home medication reconciliation done 6. Hx GCA -Continue prednisone as per taper DVT: Lovenox 40 mg subcu daily. Discharge plan discussed with the patient and case manager specialist. Patient agreeable for going home and resumption of home health with home physical therapy. Patient was admitted as inpatient and expected to stay 2 midnight but had rapid recovery, sooner than expected in context of improvement of abdominal pain and resolution of diarrhea. She has chronic pancreatitis was discharged on Creon and follow-up with GI. Discharge medication reconciliation done. Discharge follow-up instructions completed. Discharge process discussed with the patient and all questions were answered to patient's satisfaction. Total time spent, exact 35 minutes on discharge meds reconciliation, examination, coordination of care with nurses and ancillary staff, review of imaging and blood test and discussion with the patient on follow-up instructions. Living will/advanced directive/end of life care: Patient does not have living will or advanced directive. After discussion of benefits/risks procedures involved with full code, DNR CC arrest and DNR CC, the patient Was indecisive even after thinking a lot. She looked depressed from her quality of life. I suggested if she is unsure, she can be full code until further decision is made. She agreed with that Patient does want artificial life support including intubation, tube feed, ventilator and/chest compression, central venous catheter, vasopressor and DC shock if needed Medications at Discharge Home Medications calcium carbonate 600 mg-vitamin D3 10 mcg (400 unit) tablet 1 tab PO DAILY SUPPLEMENT 10/16/21 metoprolol succinate 25 mg tablet,extended release 24 hr 25 mg PO DAILY BLOOD PRESSURE #90 tabs 01/08/23 bupropion HCl 150 mg 24 hr tablet, extended release 150 mg PO DAILY DEPRESSION 02/04/23 ergocalciferol (vitamin D2) 1,250 mcg (50,000 unit) capsule 1,250 mcg PO TH 02/04/23 nystatin 100,000 unit/gram topical cream 1 applic topical BID PRN ANTIFUNGAL 02/04/23 sertraline 50 mg tablet 50 mg PO DAILY DEPRESSION 02/04/23 tocilizumab 162 mg/0.9 mL subcutaneous pen injector (Actemra ACTPen) 162 mg subcut TU RHEUMATOID ARTHRITIS 02/04/23 potassium chloride 20 mEq tablet,extended release 20 meq PO DAILY SUPPLEMENT 7 days #7 tabs 02/11/23 lisinopril 10 mg tablet 10 mg PO QHS BLOOD PRESSURE 02/22/23 lisinopril 10 mg tablet 20 mg PO DAILY BLOOD PRESSURE 02/22/23 prednisone 5 mg tablet See Taper PO DAILY STEROID 02/22/23 [id number] 36,000-114,000-180,000 unit capsule,delay rel (Creon) 2 cap PO TID 30 days #180 [facility] 02/23/23 omeprazole 20 mg capsule,delayed release 40 mg (2 x 20 mg) PO DAILY ACID REFLUX 30 days #0 [facility] 02/23/23 Physical Exam Narrative General: Alert, Oriented x3, Cooperative, morbid obese BMI 46.7 kg/m?. HEENT: Atraumatic, PERRLA, EOMI, Normocephalic Oral: Oral mucosa dry. No Gingival or Mucosal Lesions/ Ulcerations Neck: Supple, No JVD, Negative Carotid Bruits Lungs: Air entry diminished in bilateral lung bases. No crepitation/rhonchi Cardiovascular: Regular rate, Regular Rhythm, Normal S1, Normal S2, No murmurs Abdomen: Mild tenderness present over left upper quadrant consistent with chronic pancreatitis bowel Sounds Present, Soft, Non-Distended : Denies acute dysuria or acute UTI symptoms. No renal angle tenderness. No suprapubic tenderness. Extremities: Mild bilateral nonpitting edema, Capillary Refill Less than 3 Seconds Skin: No rashes, No breakdown Musculoskeletal/spine: Tenderness present on the left paraspinal muscles. Bilateral knee arthritis right worse than left. Disequilibrium Neurological: Cranial nerves II-XII grossly intact, DTR 2+/4 and Symmetrical, Neuro grossly intact Psych/Mental Status: Flat affect. Weight / BMI Weight Weight: 237 lb 10.533 oz Body Mass Index (BMI) 44.9 ABG / Lab / Microbiology Data 02/23/23 06:14 02/23/23 06:14 Laboratory: Laboratory Results - last 24 hr 02/22/23 12:10: Phosphorus 1.9 L, Magnesium 1.9 02/23/23 06:14: WBC 3.3 L, RBC 3.93 L, Hgb 11.0 L, Hct 35.4 L, MCV 90.1, MCH 28.0, MCHC 31.1 L, RDW Std Deviation 45.5 H, RDW Coeff of Janey 14.2, Plt Count 195, MPV 9.0, Immature Gran % (Auto) 2.400 H, Neut % (Auto) 83.4 H, Lymph % (Auto) 11.2 L, [place] % (Auto) 3.0, Eos % (Auto) 0.0, Baso % (Auto) 0.0, Absolute Neuts (auto) 2.8, Absolute Lymphs (auto) 0.37 L, Nucleated RBC % 0, Diff Path Review May foll, Platelet Estimate ADEQUATE, RBC Morphology NORM C+C, Sodium 141, Potassium 4.5, Chloride 109 H, Carbon Dioxide 25.0, Anion Gap 7, BUN 21 H, Creatinine 0.80, Estim Creat Clear Calc 51.49, Est GFR (MDRD) Af Amer 92, Est GFR (MDRD) Non-Af 76, BUN/Creatinine Ratio 26.2 H, Glucose 114 H, Calcium 7.9 L Microbiology: Microbiology 02/22/23 13:58 Urine, Clean Catch Urine Culture - Preliminary Mixed Gram Positive Organisms D/C Instructions Discharge Diet: Low fat / Low cholesterol and 2000 mg Sodium Diet Weight Bearing Status: Weight bearing as tolerated Call your doctor if you observe: Fever of 101 or Higher, Coldness, Increased Pain, Numbness or Tingling, Change in Color, Inability to urinate, Inability to have a bowel movement, Using more than 1 pad per hour, Shortness of breath, Dizziness, Fainting spells, Swelling in the ankles, Chest pain, Prolonged hiccupping, Increased palpitations (irregular heartbeat) and Calf discomfort When: IN 2 WEEKS Meaningful Use Info Meaningful Use Diagnoses (Choose all that apply): None applicable Discharge Plan Admission Admit Date/Time: 02/22/23 16:50 Primary Reason for Your Visit: Chronic Pancreatitis Attending Provider: Wilbur Wolff Primary Care Provider: Mauro Hastings Discharge Orders/Prescriptions Prescriptions: New Creon 36,000-114,000- 180,000 unit capsule,delayed release(DR/EC) 2 cap PO TID 30 Days Qty: 180 2RF Rx Instructions: administer with meals and/or snacks Continued calcium carbonate-vitamin D3 600 mg-10 mcg (400 unit) tablet 1 tab PO DAILY sertraline 50 mg tablet 50 mg PO DAILY bupropion HCl 150 mg tablet extended release 24 hr 150 mg PO DAILY Actemra ACTPen 162 mg/0.9 mL pen injector 162 mg SUBCUT Patient Comments: PT STATES THEY HAD THEIR FIRST INJECTION THIS PREVIOUS SATURDAY (02-19-23) nystatin 100,000 unit/gram Cream 1 applic TOPICAL BID PRN (Reason: ANTIFUNGAL) ergocalciferol (vitamin D2) 1,250 mcg (50,000 unit) Capsule 1,250 mcg PO TH potassium chloride 20 mEq tablet extended release 20 meq PO DAILY 7 Days Qty: 7 0RF prednisone 5 mg tablet See Taper PO DAILY Taper: Prednisone Taper 40 mg DAILY for 7 Days 35 mg DAILY for 7 Days 30 mg DAILY for 7 Days 25 mg DAILY for 7 Days 20 mg DAILY for 7 Days Rx Instructions: PT IS ON DAY 5 OF THIS TAPERED PREDNISONE PRESCRIPTION. THE PT STILL NEEDS TO TAKE THEIR DOSE FOR DAY 5 lisinopril 10 mg Tablet 10 mg PO QHS Patient Comments: PER RX INSTRUCTIONS, TAKE TWO TABLETS (20MG) BY MOUTH ONCE DAILY IN THE MORNING AND ONE TABLET (10MG) AT BEDTIME metoprolol succinate 25 mg tablet extended release 24 hr 25 mg PO DAILY Qty: 90 3RF Changed omeprazole 20 MG capsule 40 mg PO DAILY 30 Days Qty: 0 0RF Held lisinopril 10 mg tablet 20 mg PO DAILY Hold Instructions: Hold it Patient Comments: PER RX INSTRUCTIONS, TAKE TWO TABLETS (20MG) BY MOUTH ONCE DAILY IN THE MORNING AND ONE TABLET (10MG) AT BEDTIME Referrals / Follow Up: Milan Massey DO [Med Staff - Active Staff] - Within 1 Month ( For chronic pancreatitis) Mauro Hastings MD [Primary Care Provider] - Disposition Disposition (needs filled in before D/C Order can be placed): Home Health Service Charges/Coding Visit Charges Inpatient E&M: 76704 Disch Hosp >30min
--- NOTE | 2023-02-23 20:08 | NURSING ---
pt leaving with ambulance, has her home meds & phone in her bag.
[2023-02-26 12:07] LABS: Pathologist Review Reviewed
== END 2023-02-23 20:00 | disposition home health service (06) | DRG 439 ==
LOC: ED 17:02 → MS3 17:10
PROVIDERS: Admitting Provider Internal Medicine; Emergency Provider Student in an Organized Health Care Education/Training Program; PCP Family Medicine; Visit Provider Internal Medicine
DX: K85.90 Acute pancreatitis without necrosis or infection, unspecified (principal); Z68.42 Body mass index [BMI] 45.0-49.9, adult; N17.9 Acute kidney failure, unspecified; M31.6 Other giant cell arteritis; E66.01 Morbid (severe) obesity due to excess calories; K86.1 Other chronic pancreatitis; E78.00 Pure hypercholesterolemia, unspecified; K57.30 Diverticulosis of large intestine without perforation or abscess without bleeding; I10 Essential (primary) hypertension; M17.11 Unilateral primary osteoarthritis, right knee; E87.6 Hypokalemia; G89.29 Other chronic pain; Z79.52 Long term (current) use of systemic steroids; Z79.899 Other long term (current) drug therapy; Z87.891 Personal history of nicotine dependence
CPT/HCPCS: 36415; 74177; 80048; 80053; 81001; 83690; 83735; 84100; 85025; 87086; 87088; 87493; 94668; 97162; 97165; 99252; 99285; J7050; J7120; Q9967; A4216; G0463; J2405

== ENCOUNTER 2023-02-24 16:02 | Inpatient (IN) | payer MEDICARE, MEDICAID, SELFPAY ==
[2023-02-24 16:04] VITALS: BP 151/82; PULSE 85; RESP 18; TEMP 36.6; O2SAT 96
[2023-02-24 16:11] VITALS: BMI 45.8
--- NOTE | 2023-02-24 16:41 | EDS_ITS ---
HPI HPI - GI History of Present Illness Chief Complaint: Nausea/Vomiting/Diarrhea Narrative Narrative: 67-year-old female presenting with nausea, vomiting, abdominal pain. Apparently she has a recurrent pancreatitis which is an issue. She has been referred to [facility] as an outpatient but has not been able to make it because she returns to the ER with abdominal pain. Patient just released yesterday. She was admitted for placement because she states she could not take care of her herself at home. At that point her lipase had been trending downward. She was a little bit dehydrated. She states the pain is never really gone away. [facility] Medical History (Updated 02/24/23 @ 21:[address] Araceli Branham MD) Anemia Anxiety and depression Chronic pain Colon polyps Essential hypertension Former smoker GCA (giant cell arteritis) GERD (gastroesophageal reflux disease) Lung nodules Morbid obesity Morbid obesity Multiple thyroid nodules Osteoarthritis Osteoporosis Pancreatitis Poor dentition Pure hypercholesterolemia Thoracic aortic aneurysm without rupture Vision changes Home Medications calcium carbonate 600 mg-vitamin D3 10 mcg (400 unit) tablet 1 tab PO DAILY SUPPLEMENT 10/16/21 [History Last Taken 02/21/23] metoprolol succinate 25 mg tablet,extended release 24 hr 25 mg PO DAILY BLOOD PRESSURE #90 tabs 01/08/23 [Rx Last Taken 02/21/23] bupropion HCl 150 mg 24 hr tablet, extended release 150 mg PO DAILY DEPRESSION 02/04/23 [History Last Taken 02/21/23] ergocalciferol (vitamin D2) 1,250 mcg (50,000 unit) capsule 1,250 mcg PO TH 02/04/23 [History Last Taken 02/21/23] nystatin 100,000 unit/gram topical cream 1 applic topical BID PRN ANTIFUNGAL 02/04/23 [History Last Taken Unknown] sertraline 50 mg tablet 50 mg PO DAILY DEPRESSION 02/04/23 [History Last Taken 02/21/23] tocilizumab 162 mg/0.9 mL subcutaneous pen injector (Actemra ACTPen) 162 mg subcut TU RHEUMATOID ARTHRITIS 02/04/23 [History Last Taken 02/19/23] potassium chloride 20 mEq tablet,extended release 20 meq PO DAILY SUPPLEMENT 7 days #7 tabs 02/11/23 [Rx Last Taken 02/21/23] lisinopril 10 mg tablet 10 mg PO QHS BLOOD PRESSURE 02/22/23 [History Last Taken 02/21/23] lisinopril 10 mg tablet 20 mg PO DAILY BLOOD PRESSURE 02/22/23 [History Last Taken 02/21/23] prednisone 5 mg tablet See Taper PO DAILY STEROID 02/22/23 [History Last Taken 02/21/23] [id number]-[id number] 36,000-114,000-180,000 unit capsule,delay rel (Creon) 2 cap PO TID 30 days #180 caps 02/23/23 [Rx Last Taken Unknown] omeprazole 20 mg capsule,delayed release 40 mg (2 x 20 mg) PO DAILY ACID REFLUX 30 days #0 caps 02/23/23 [Rx Last Taken 02/21/23] Allergy/AdvReac Type Severity Reaction Status Date / Time No Known Allergies Allergy Verified 02/24/23 16:05 Family History Mother Colon cancer Father Cancer Lung Sister Breast cancer Brother Cancer Lung Surgical History History of carpal tunnel surgery History of cholecystectomy History of total hysterectomy Social History household members: none Smoking Status: Former smoker alcohol intake: never substance use type: does not use caffeine: Yes Type: coffee Number of servings: 2 ROS ROS ED Constitutional Constitutional ED: Denies chills or fever(s) ENT ENT ED: Denies rhinorrhea or sore throat Cardiovascular Cardiovascular: Denies chest pain or palpitations Respiratory/Chest Respiratory/Chest: Denies cough or dyspnea Gastrointestinal Gastrointestinal: Reports abdominal pain, nausea and vomiting Genitourinary Genitourinary ED: Denies dysuria or hematuria Musculoskeletal Musculoskeletal: Denies arthralgias or back pain Integumentary Denies abscess Neurologic Neurologic: Denies headache(s) Psychiatric Psychiatric: Denies anxiety or depression EXAM Physical Exam Const Vital Signs: 02/24/23 16:04 Temperature 97.8 F Temperature Source Temporal Pulse Rate 85 Respiratory Rate 18 Blood Pressure 151/82 H Blood Pressure Mean 105 Pulse Ox 96 Positive well nourished General Appearance ED: NAD HEENT Reports moist mucous membranes normocephalic Eyes PERRL and EOMs intact bilaterally Resp normal respiratory effort Auscultation: Negative for rales, rhonchi or wheezes Cardio regular rate and regular rhythm GI Palpation: tender LLQ Back/Spine no CVA tenderness Neuro CN's II-XII intact bilaterally Sensorium / Orientation: alert Motor Exam: strength 5/5 throughout Psych mental status grossly normal Skin no wounds MDM MDM MDM Narrative Medical decision making narrative: Patient with recurrent pancreatitis. She is presenting with abdominal pain, nausea, vomiting. She was recently admitted for placement. The patient states that she thought she was going to be okay when she went home for the first day was okay and now she says the pain and nausea vomiting is back. She has not had a fever. She denies chest pain differential includes pancreatitis, colitis, diverticulitis, gastritis. CBC to assess white blood cell count, hemoglobin, platelet. BMP to assess renal function, electrolytes. Liver panel to assess for elevated liver enzymes. Lipase to assess for pancreatitis. Patient given a liter normal saline. Discussed with Dr. Massey who recommended a pancreas debility CT. This was ordered. Creatinine is slightly elevated again today at 1.37. White count is normal. Hemoglobin hematocrit are stable. Patient given IV fluids. It is noted that her LFTs are slightly elevated again today. Dr. Massey had been order lactate dehydrogenase, ESR, CRP. ESR and CRP are unremarkable however the lactate etiology needs is 49. EtOH was negative. High-sensitivity troponin was negative. EKG on my interpretation was normal sinus rhythm with ventricular to 66 bpm without sign of ischemic change or ectopy. Patient was discussed with the hospitalist for admission. CT scan is pending on admission. Impression: 1. Dehydration 2. Acute on chronic pancreatitis 3. Nausea/vomiting Lab Data Labs: Laboratory Results - last 24 hr 02/24/23 02/24/23 02/24/23 16:15 16:55 18:20 WBC 6.9 RBC 4.25 Hgb 12.0 Hct 38.0 MCV 89.4 MCH 28.2 MCHC 31.6 L RDW Std Deviation 46.1 H RDW Coeff of Janey 14.5 Plt Count 210 MPV 9.2 Immature Gran % (Auto) 2.600 H Neut % (Auto) 58.7 Lymph % (Auto) 26.8 [place] % (Auto) 10.4 H Eos % (Auto) 0.9 Baso % (Auto) 0.6 Absolute Neuts (auto) 4.1 Absolute Lymphs (auto) 1.86 Nucleated RBC % 0 ESR Sodium 140 Potassium 3.6 Chloride 106 Carbon Dioxide 25.0 Anion Gap 9 BUN 21 H Creatinine 1.37 H Estim Creat Clear Calc 30.07 Est GFR (MDRD) Af Amer 49 L Est GFR (MDRD) Non-Af 41 L BUN/Creatinine Ratio 15.3 Glucose 80 Calcium 8.7 Phosphorus 1.4 L Magnesium 1.7 Total Bilirubin 1.80 H Direct Bilirubin 0.35 H AST 64 H ALT 63 H Alkaline Phosphatase 60 Lactate Dehydrogenase Troponin I High Sens 27 C-React Prot Ext Range Total Protein 6.4 Albumin 3.8 Globulin 2.6 Lipase 174 H Ethyl Alcohol 02/24/23 20:20 WBC RBC Hgb Hct MCV MCH MCHC RDW Std Deviation RDW Coeff of Janey Plt Count MPV Immature Gran % (Auto) Neut % (Auto) Lymph % (Auto) [place] % (Auto) Eos % (Auto) Baso % (Auto) Absolute Neuts (auto) Absolute Lymphs (auto) Nucleated RBC % ESR 2 Sodium Potassium Chloride Carbon Dioxide Anion Gap BUN Creatinine Estim Creat Clear Calc Est GFR (MDRD) Af Amer Est GFR (MDRD) Non-Af BUN/Creatinine Ratio Glucose Calcium Phosphorus Magnesium Total Bilirubin Direct Bilirubin AST ALT Alkaline Phosphatase Lactate Dehydrogenase 489 H Troponin I High Sens C-React Prot Ext Range < 2.90 Total Protein Albumin Globulin Lipase Ethyl Alcohol < 3.0 Discharge Plan Triage Chief Complaint: Nausea/Vomiting/Diarrhea ED Provider: Kyler Fox Dx/Rx/DC Orders Primary Care Provider: Mauro Hastings
[2023-02-24 17:08] LABS: Absolute Lymphocyte Count 1.86 X10^3/uL (0.83-4.51); Absolute Neutrophil Count 4.1 X10^3/uL (2.0-7.7); Basophil# 0.04 X10^3/uL; Basophil% 0.6 % (0-1); Eosinophil# 0.06 X10^3/uL; Eosinophils% 0.9 % (0-5); Lymphocyte # 1.86 X10^3/ul (0.83-4.51); Lymphocyte % 26.8 % (19-41); Mean Corp Hgb Conc 31.6 g/dL (32-36); Mean Corpuscular Hgb 28.2 pg (27.0-32.0); Mean Corpuscular Volume 89.4 fL (81-99); Mean Platelet Vol. 9.2 fl (6.2-12.0); Monocyte# 0.72 X10^3/uL; Monocyte% 10.4 % (0-10); NRBC Flagged by Analyzer 0 % (0-5); Neutrophil # 4.08 X10^3/uL (2.7-7.7); Neutrophil % 58.7 % (47-70); Platelet Count 210 K/mm3 (150-450); RBC Distribution Width CV 14.5 % (11.6-14.6); RBC Distribution Width SD 46.1 fl (35.1-43.9); Red Blood Count 4.25 M/mm3 (4.2-5.4); White Blood Count 6.9 K/mm3 (4.4-11.0)
[2023-02-24] MEDS: Ondansetron 4 MG/2 ML Vial IV (18:04)
[2023-02-24 18:05] LABS: AST(SGOT) 64 U/L (15-37); Alanine Aminotransfer ALT/SGPT 63 U/L (13-56); Albumin, Serum 3.8 g/dL (3.2-5.0); Alkaline Phosphatase 60 U/L (45-117); Anion Gap 9 (5-15); BUN 21 mg/dL (7-18); BUN/Creat Ratio 15.3 RATIO (10-20); Bilirubin, Direct 0.35 mg/dL (0.00-0.30); Calcium,Total 8.7 mg/dL (8.5-10.1); Chloride 106 mmol/L (98-107); Creatinine, Serum 1.37 mg/dL (0.55-1.02); EST Glomerular Filtration Rate 41 mL/min (>60); Est Glom Filt Rate - Afr Amer 49 mL/min (>60); Estimated Creatinine Clearance 30.07 ml/min; Globulin 2.6 g/dL (2.2-4.2); Glucose 80 mg/dL (74-106); Lipase 174 U/L (13-75); Potassium 3.6 mmol/L (3.5-5.1); Protein, Total 6.4 g/dL (6.4-8.2); Sodium Level 140 mmol/L (136-145)
[2023-02-24] MEDS: Morphine 4 MG/ML Syringe IV (18:05)
[2023-02-24 18:43] LABS: Troponin-I HS 27 pg/mL (3.0-54.0)
--- NOTE | 2023-02-24 19:29 | CT_ITS ---
EXAM: CT ABDOMEN AND PELVIS WITHOUT AND WITH INTRAVENOUS CONTRAST CLINICAL INDICATION: abdominal -- Pancreatic protocol TECHNIQUE: Helically acquired images were obtained of the abdomen and pelvis without and with intravenous contrast. CTDIvol = ( 26.53 ) mGy, DLP = ( 2243.17 ) mGycm This CT exam was performed using one or more of the following dose reduction techniques: automated exposure control, adjustment of the mA and/or kV according to patient size, and/or use of iterative reconstruction technique. CONTRAST: [id number] 100ML COMPARISON: No relevant prior studies available. FINDINGS: LOWER THORAX: Unremarkable. Lung bases are clear. No cardiomegaly. No significant pericardial effusion. ABDOMEN: LIVER: Unremarkable. Homogeneous. No focal mass. GALLBLADDER AND BILE DUCTS: Unremarkable. No calcified gallstones. No gallbladder distention or wall edema. No intra- or extrahepatic biliary ductal dilation. PANCREAS: Stranding about the pancreas is concerning for pancreatitis. No complications. Few small scattered pancreatic calcifications. No focal cystic or solid mass. SPLEEN: Unremarkable. Normal size without focal cystic or solid mass. ADRENALS: Unremarkable. No nodules. KIDNEYS AND URETERS: Unremarkable. Normal renal size and position. No hydronephrosis. STOMACH AND BOWEL: Unremarkable. No stomach or bowel distention. No focal inflammatory change. PELVIS: APPENDIX: No evidence of acute appendicitis. BLADDER: Unremarkable. REPRODUCTIVE: Unremarkable as visualized. No mass. ABDOMEN and PELVIS: INTRAPERITONEAL SPACE: Unremarkable. No ascites or other fluid collection. No free air. BONES/JOINTS: Unremarkable. No suspicious lytic or blastic abnormality. SOFT TISSUES: Unremarkable. No discrete abdominal or pelvic wall hernia. VASCULATURE: Unremarkable. Abdominal aorta is non-dilated. LYMPH NODES: Unremarkable. No enlarged lymph nodes. CT/CT Abd/Pelvis W/WO Contrast IMPRESSION: Uncomplicated acute interstitial appendicitis. Electronically Signed: Navneet Shook MD at 23:12 EDT ,
[2023-02-24] MEDS: 0.9% Normal Saline 1,000 ML 999 ML IV (19:45)
--- NOTE | 2023-02-24 20:10 | PCM.HP.STD ---
HPI - General General Date of Admission: 02/24/23 Date of Service: 02/24/23 Chief Complaint: Recurrent N/V, abdominal pain. HPI Narrative The patient is a 67 y/o F w/ PMHx: Morbid obesity, Anxiety and Depression, Chronic pain syndrome, Chronic anemia, Former tobacco use, HTN, HLD, , Thoracic AAA, Known Lung nodules, Hx Giant cell arteritis, recent discharge 02/23/2023 with acute on chronic recurrent abdominal pain secondary to chronic pancreatitis discharged on Creon with reportedly initially diarrhea however she had no bowel movements during presentation with JUDE felt secondary to noted GI losses who now re-presents to the [facility] ED on 02/24/23 with history of recurrent nausea, emesis and abdominal pain primarily epigastric in location with inability to maintain appropriate hydration reporting that her pain and never really completely resolved but it certainly worsened since she discharged to home prompting ED return. States again she had recurrent loose stools for approximately 4-5 and to even have 1 again in the ED as when she was here recently she reported diarrhea but then had no diarrheal episodes during admission. She describes her abdominal pain as cramping and occasionally sharp, more so in the epigastric region rated 4-5 out of 10 in severity waxing and waning. She states she is felt weak and lightheaded because of her GI losses and dehydration and unable to safely care for self at home. Work-up in the ED included T97.8, heart rate 85, BP 151/82, respiratory rate 18, 96% on room air, CBC with WC 6.9, hemoglobin 12, platelet 210 with increased immature granulocytes, CMP with BUN/creatinine 21/1.37, T. bili 1.80, D bili 0.35, AST/ALT 64/63, troponin 27, lipase 174, CT abdomen pelvis with and without contrast pending upon requested evaluation of patient. In the ED patient administered IV zofran and IV morphine. ED discussed case with Gastroenterology Dr. Massey. [facility] Medical History (Updated 02/24/23 @ 21:[address] Araceli Branham MD) Anemia Anxiety and depression Chronic pain Colon polyps Essential hypertension Former smoker GCA (giant cell arteritis) GERD (gastroesophageal reflux disease) Lung nodules Morbid obesity Morbid obesity Multiple thyroid nodules Osteoarthritis Osteoporosis Pancreatitis Poor dentition Pure hypercholesterolemia Thoracic aortic aneurysm without rupture Vision changes Home Medications calcium carbonate 600 mg-vitamin D3 10 mcg (400 unit) tablet 1 tab PO DAILY SUPPLEMENT 10/16/21 [History Last Taken 02/21/23] metoprolol succinate 25 mg tablet,extended release 24 hr 25 mg PO DAILY BLOOD PRESSURE #90 tabs 01/08/23 [Rx Last Taken 02/21/23] bupropion HCl 150 mg 24 hr tablet, extended release 150 mg PO DAILY DEPRESSION 02/04/23 [History Last Taken 02/21/23] ergocalciferol (vitamin D2) 1,250 mcg (50,000 unit) capsule 1,250 mcg PO TH 02/04/23 [History Last Taken 02/21/23] nystatin 100,000 unit/gram topical cream 1 applic topical BID PRN ANTIFUNGAL 02/04/23 [History Last Taken Unknown] sertraline 50 mg tablet 50 mg PO DAILY DEPRESSION 02/04/23 [History Last Taken 02/21/23] tocilizumab 162 mg/0.9 mL subcutaneous pen injector (Actemra ACTPen) 162 mg subcut TU RHEUMATOID ARTHRITIS 02/04/23 [History Last Taken 02/19/23] potassium chloride 20 mEq tablet,extended release 20 meq PO DAILY SUPPLEMENT 7 days #7 tabs 02/11/23 [Rx Last Taken 02/21/23] lisinopril 10 mg tablet 10 mg PO QHS BLOOD PRESSURE 02/22/23 [History Last Taken 02/21/23] lisinopril 10 mg tablet 20 mg PO DAILY BLOOD PRESSURE 02/22/23 [History Last Taken 02/21/23] prednisone 5 mg tablet See Taper PO DAILY STEROID 02/22/23 [History Last Taken 02/21/23] [id number]-gryalnuw-[id number] 36,000-114,000-180,000 unit capsule,delay rel (Creon) 2 cap PO TID 30 days #180 caps 02/23/23 [Rx Last Taken Unknown] omeprazole 20 mg capsule,delayed release 40 mg (2 x 20 mg) PO DAILY ACID REFLUX 30 days #0 caps 02/23/23 [Rx Last Taken 02/21/23] Allergy/AdvReac Type Severity Reaction Status Date / Time No Known Allergies Allergy Verified 02/24/23 16:05 Family History Mother Colon cancer Father Cancer Lung Sister Breast cancer Brother Cancer Lung Surgical History History of carpal tunnel surgery History of cholecystectomy History of total hysterectomy Social History household members: none Smoking Status: Former smoker alcohol intake: never substance use type: does not use caffeine: Yes Type: coffee Number of servings: 2 ROS ROS Narrative Admission Review of Systems: CONSTITUTIONAL: No weight loss, fever, chills, + weakness or fatigue. HEENT: Eyes: No visual loss, blurred vision, double vision or yellow sclerae. Ears, Nose, Throat: No hearing loss, sneezing, congestion, runny nose or sore throat. SKIN: No rash or itching, lesions, wounds. CARDIOVASCULAR:+ Lightheadedness, dizziness. No chest pain, chest pressure or chest discomfort, palpitations, edema, orthopnea, syncopal events. RESPIRATORY: No shortness of breath, cough or sputum, wheezing, hemoptysis. GASTROINTESTINAL: + anorexia, nausea, vomiting, diarrhea, abdominal pain. No melena, BRBPR. GENITOURINARY: No dysuria, frequency, urgency or retention. NEUROLOGICAL: + Lightheadedness, dizziness. No headache, paralysis, ataxia, numbness or tingling in the extremities, focal weakness, change in bowel or bladder control, seizure. MUSCULOSKELETAL: + muscle, back pain, joint pain or stiffness. HEMATOLOGIC: + anemia, bleeding or bruising. LYMPHATICS: No enlarged nodes. No history of splenectomy. PSYCHIATRIC: + history of depression or anxiety. ENDOCRINOLOGIC: No reports of sweating, cold or heat intolerance. No polyuria or polydipsia. ALLERGIES: No history of asthma, hives, eczema or rhinitis. Vital Signs Vital Signs Vital Signs: 02/24/23 16:04 Temperature 97.8 F Temperature Source Temporal Pulse Rate 85 Respiratory Rate 18 Blood Pressure 151/82 H Blood Pressure Mean 105 Pulse Ox 96 Weight Weight: 242 lb 15.19 oz Body Mass Index (BMI) 45.8 Physical Exam Narrative Physical Examination: General: Awake, alert, oriented x 3 and cooperative, seated upright in the ED bed, fatigued and ill-appearing. Skin: Normal color, normal turgor, no icterus, no cyanosis except for very staged ecchymoses likely with recent IV access and lab draws. HEENT: AT/NC, EOMI, PERRLA, dry MM, no carotid bruits or JVD noted; however, thickened neck makes evaluation difficult. Lungs: Distant, diminished, greater bases, appropriate effort, no rales, ronchi or wheezing. Heart: Regular rate and rhythm; no gallop, rub audible. Abdomen: Soft, morbidly obese, mild epigastric tenderness but no rebound or guarding no any specific right upper quadrant pain, difficult to assess distention and HSM secondary to morbidly obese habitus, hyperactive bowel sounds. Extremities: No cyanosis, clubbing, or edema. Neurological: Patient awake, alert, oriented as noted, cognitive function intact; pupils equally reactive to light and accommodation, cranial nerves II-XII grossly normal, moving all 4 extremities, no focal deficits, strength moderately to severely global decrease secondary to acute presentation complaints. Psychiatric: Affect appears flat, fatigued, ill-appearing, no acute evidence of depressive or anxiety feelings. Results Lab / Micro Data 02/24/23 16:55 02/24/23 16:15 Labs: Laboratory Results - last 24 hr 02/24/23 16:15: Sodium 140, Potassium 3.6, Chloride 106, Carbon Dioxide 25.0, Anion Gap 9, BUN 21 H, Creatinine 1.37 H, Estim Creat Clear Calc 30.07, Est GFR (MDRD) Af Amer 49 L, Est GFR (MDRD) Non-Af 41 L, BUN/Creatinine Ratio 15.3, Glucose 80, Calcium 8.7, Total Bilirubin 1.80 H, Direct Bilirubin 0.35 H, AST 64 H, ALT 63 H, Alkaline Phosphatase 60, Total Protein 6.4, Albumin 3.8, Globulin 2.6, Lipase 174 H 02/24/23 16:55: WBC 6.9, RBC 4.25, Hgb 12.0, Hct 38.0, MCV 89.4, MCH 28.2, MCHC 31.6 L, RDW Std Deviation 46.1 H, RDW Coeff of Janey 14.5, Plt Count 210, MPV 9.2, Immature Gran % (Auto) 2.600 H, Neut % (Auto) 58.7, Lymph % (Auto) 26.8, [place] % (Auto) 10.4 H, Eos % (Auto) 0.9, Baso % (Auto) 0.6, Absolute Neuts (auto) 4.1, Absolute Lymphs (auto) 1.86, Nucleated RBC % 0 02/24/23 18:20: Troponin I High Sens 27 Assessment & Plan Assessment/Plan (1) Acute recurrent pancreatitis: PLAN: Plan The patient is a 67 y/o F w/ PMHx: Morbid obesity, Anxiety and Depression, Chronic pain syndrome, Chronic anemia, Former tobacco use, HTN, HLD, , Thoracic AAA, Known Lung nodules, Hx Giant cell arteritis, recent discharge 02/23/2023 with acute on chronic recurrent abdominal pain secondary to chronic pancreatitis discharged on Creon with reportedly initially diarrhea however she had no bowel movements during presentation with JUDE felt secondary to noted GI losses who now re-presents to the [facility] ED on 02/24/23 with history of recurrent nausea, emesis and abdominal pain primarily epigastric in location with inability to maintain appropriate hydration reporting that her pain and never really completely resolved but it certainly worsened since she discharged to home prompting ED return. #1. Recurrent abdominal pain suspected secondary to again acute on chronic pancreatitis with mild hyperbilirubinemia and transaminitis, Possible Pancreatic divisum versus possible gastritis/GI/duodenal ulceration: Recent presentation over the last several weeks with 02/04/2023 MRCP with no biliary dilatation or choledocholithiasis with postcholecystectomy changes with at that time mild peripancreatic fatty edema consistent with pancreatitis, follow-up recent admission 02/22/2023 CT abdomen pelvis with punctate calcifications throughout the pancreas suggesting chronic pancreatitis with no acute abnormality seen otherwise with evidence of status postcholecystectomy and hysterectomy status, will admit to medical surgical floor, maintain on judicious IV fluids, transition to IV PPI, will continue with consultation with gastroenterology, will allow clears if tolerated until midnight then n.p.o. status pending GI evaluation, maintain on Creon, as needed antiemetic and pain regimen. Per gastroenterology LDH, protein electrophoresis, ESR, CRP and alcohol levels requested. Possible plan for ERCP pending imaging results pending upon requested ED evaluation. #2. Acute kidney injury: Secondary to GI losses. Admission BUN/Cr 21/1.37, prior baseline creatinine noted to be primarily 0.5-0.8 to maximum. Will hydrate, hold nephrotoxic medications and repeat chemistry in AM. If no improvement would plan FeNa assessment. #3. Hypertension: Continue home regimen including metoprolol, temporally holding home lisinopril regimen given JUDE, PRN hydralazine. #4. Hyperlipidemia: We will defer any statin consideration especially given transaminitis and hyperbilirubinemia. #5. Anxiety and depression: We will continue patient on sertraline as well as bupropion regimen with close renal function monitoring and hold as needed. #6. Giant cell arteritis, history of: Given presentation concerns we will cautiously continue prednisone but do believe the patient may benefit from an upper endoscopy as certainly some type of ulcer or gastritis could be contributing to her presentation as well therefore may need to decide to hold this if absolutely necessary. Certainly would be best to attempt to decrease this dosing further. #7. Morbid Obesity: Weight loss and lifestyle changes encouraged. #8. Former tobacco use: Encourage continued tobacco cessation. #9. Known thoracic AAA: Recent chest CTA 12/12/2022 with noted ectasia of the ascending aorta 3.9 cm in diameter stable from previous imaging, encourage continued outpatient follow-up. #10. GERD: We will maintain on IV PPI. #11. DVT prophylaxis: SCDs, given recurrent ongoing persistent abdominal pain will hold on chemoprophylaxis as possible ERCP planned per GI. #12. CODE STATUS: Full code. Charges/Coding Visit Charges Inpatient E&M: 77550 Init Hosp L3
[2023-02-24 20:43] VITALS: BP 187/76; PULSE 72; RESP 20; TEMP 36.8; O2SAT 96
[2023-02-24 20:49] LABS: Alcohol, Blood (Medical)-Serum < 3.0 mg/dL
[2023-02-24 20:51] LABS: Erythrocyte Sedimentation Rate 2 mm/hr (0-30)
[2023-02-24 21:05] LABS: CRP < 2.90 mg/L (0.0-3.0); LDH 489 U/L (84-246)
[2023-02-24 21:41] LABS: Magnesium 1.7 mg/dL (1.6-2.6); Phosphorus 1.4 mg/dL (2.5-4.9)
[2023-02-25] VITALS (8 sets, daily range): BP systolic 121–193; BP diastolic 65–97; PULSE 70–83; RESP 16–20; TEMP 36.8–37.1; O2SAT 93–98; BMI 45.6; BMI 46.4
[2023-02-25] MEDS: Morphine 4 MG/ML Syringe IV (00:02)
[2023-02-25] MEDS: Ondansetron 4 MG/2 ML Vial IV ×3 (00:02→19:56)
[2023-02-25] MEDS: 0.9% Normal Saline 1,000 ML 125 ML IV ×3 (01:11→21:28)
[2023-02-25] MEDS: hydrALAZINE 20 MG/ML Vial 10 MG IV (01:14)
[2023-02-25] MEDS: Morphine 2 MG/ML Syringe IV ×3 (06:18→19:56)
[2023-02-25 06:20] LABS: Absolute Lymphocyte Count 1.82 X10^3/uL (0.83-4.51); Absolute Neutrophil Count 2.1 X10^3/uL (2.0-7.7); Basophil# 0.02 X10^3/uL; Basophil% 0.4 % (0-1); Eosinophils% 2.1 % (0-5); Hematocrit 32.2 % (37-47); Hemoglobin 9.9 g/dL (12.0-15.0); Lymphocyte # 1.82 X10^3/ul (0.83-4.51); Lymphocyte % 38.9 % (19-41); Mean Corp Hgb Conc 30.7 g/dL (32-36); Monocyte# 0.47 X10^3/uL; NRBC Flagged by Analyzer 0 % (0-5); Neutrophil # 2.09 X10^3/uL (2.7-7.7); Neutrophil % 44.8 % (47-70); Platelet Count 164 K/mm3 (150-450); RBC Distribution Width CV 14.5 % (11.6-14.6); RBC Distribution Width SD 47.7 fl (35.1-43.9); Red Blood Count 3.54 M/mm3 (4.2-5.4); White Blood Count 4.7 K/mm3 (4.4-11.0)
[2023-02-25 06:58] LABS: ALB/GLOB Ratio 1.3 RATIO (0.9-2.4); AST(SGOT) 37 U/L (15-37); Alanine Aminotransfer ALT/SGPT 45 U/L (13-56); Albumin, Serum 2.7 g/dL (3.2-5.0); Alkaline Phosphatase 47 U/L (45-117); Anion Gap 6 (5-15); BUN 15 mg/dL (7-18); BUN/Creat Ratio 16.5 RATIO (10-20); Calcium,Total 7.3 mg/dL (8.5-10.1); Chloride 111 mmol/L (98-107); Creatinine, Serum 0.91 mg/dL (0.55-1.02); EST Glomerular Filtration Rate 66 mL/min (>60); Est Glom Filt Rate - Afr Amer 79 mL/min (>60); Estimated Creatinine Clearance 45.27 ml/min; Globulin 2.1 g/dL (2.2-4.2); Glucose 73 mg/dL (74-106); Lipase 79 U/L (13-75); Potassium 3.1 mmol/L (3.5-5.1); Protein, Total 4.8 g/dL (6.4-8.2); Sodium Level 142 mmol/L (136-145)
[2023-02-25] MEDS: Sertraline 50 MG Tablet PO (08:21)
[2023-02-25] MEDS: buPROPion (XL) 150 MG TABLET.XL PO (08:21)
[2023-02-25] MEDS: Creon 24,000 unit DR Capsule 3 CAP PO ×3 (08:21→17:47)
[2023-02-25] MEDS: Metoprolol(XL)Succ 25 MG Tablet PO (08:21)
--- NOTE | 2023-02-25 11:25 | CASEMGMT ---
Social Work SW met w/pt in regard to discharge plan. Pt was just here and discharged, readmitted. Pt states on the last admission the physician seems so sure she could manage at home, agreed for home discharge. Pt is agreeable to SNF placement after this hospitalization. SW did provide to pt a list of fpc facilities in pt's preferred geographic area, insurance network, and complete with quality and resource use data. Pt has been to [facility], she is not sure where she would like a referral sent. SW reviewed the facilities in [place] as she would like to stay within [place]. SW explained we can check back w/her in regard to choices. SW also spoke w/pt about completing LW/POA. Pt states she needs to think about who she would put down. Pt has 5 children, but has strained relationships w/some of them since she and her . She also states some of them would not want to be decision makers. SW explained without POA documentation, if decisions need made all five children would need to make decisions together. Pt states she may ask her sister Yesenia Monsivais to be her POA. SW explained we can assist with the document should she want to complete it. SW let Zoey Curry, pt's Oil Laboratory Analyst with [employer], know pt is going to SNF, facility TBD. Plan: SNF, facility TBD. SW to check back w/pt in regard to where she would like a referral sent. Also, please note, pt had a qualifying stay within 30 days, in order for Medicare to cover SNF (02/06-02/11). DYLAN Abbott
[2023-02-25] MEDS: 0.9% Saline Lock 10 ML Syringe IV ×2 (14:19→19:56)
--- NOTE | 2023-02-25 14:56 | CASEMGMT ---
JESSA CM Readmission Note Previous Admission:? 02/22/23-02/23/23? Diagnosis:? abd pain DC Disposition: Home with?[facility] resumption SN, PT and OT Current Admission? Current Diagnosis: intractable N/V/abd pain, chronic pancreatitis Pt dc'd on 02/23 and readmitted on 02/24 with pain and nausea. Pt felt she was unable to safely care for herself at home. Pt reports [facility] was not able to resume care as pt returned to hospital so quickly. Pt also states she has been working with her PCP to see about another GI physician in [place] to see as Dr. Massey's office was scheduling out into May and June. Pt agreeable to SNF at this time until she gets stronger as she lives alone. [facility] aware pt is admitted with likely SNF plan at ok. DC Plan: SNF
--- NOTE | 2023-02-25 15:19 | PN.HOSP_ITS ---
Reason for Visit Reason for Visit: Abdominal pain nausea and vomiting Subjective Subjective Patient is a 67-year-old morbidly obese white female who presented to the emergency department at [facility] on 02/24/2023 with recurrent nausea, vomiting, and abdominal pain. She has had 2 recent hospitalizations here for the same. 1 was at the end of January at which time she was discharged on 02/11/2023 and most recently from 02/22/2023 through 02/23/2023. She has a known history of chronic pancreatitis and was discharged with Creon on the . She presented on the with recurrent nausea, emesis, and abdominal pain that was predominantly in the epigastric location and notes radiation around bilateral upper quadrants to her back. She indicated she was unable to maintain appropriate hydration due to her pain and stated that she never completely resolved her symptoms when discharged on the but worsened since discharge which led to her returning to the emergency department. She reports recurrent loose stools and diarrhea however had no diarrhea during her previous admission. She reported the pain is cramping in nature with occasional sharp pain in the epigastric region and waxes and wanes. She felt unable to care for herself at home due to lightheadedness and weakness. Vital signs were unremarkable on presentation. Her CBC was unremarkable. Her total bili was slightly elevated at 1.8 and serum creatinine was mildly elevated at 1.37. CT of the abdomen pelvis was performed and showed stranding about the pancreas that was concerning for pancreatitis and uncomplicated acute interstitial pancreatitis was noted on the final read. GI was called and patient was admitted. Per gastroenterology request LDH, SPEP, ESR, CRP, and alcohol levels were requested. It sounds as if they are planning on possibly performing an ERCP. After reviewing previous records it sounds like patient's had intermittent problems with this since 2019. Her gallbladder was removed at that time and she was referred to GI specialist at [facility]. I have looked in records for any documentation from this physician however there are no records in clinisync prior to 2021. She states her pain is improving and she had not required any pain medication since 6 AM. She is having ongoing nausea. She states the Zofran does help some however would like something either more frequently or something on top of the Zofran to help with her nausea. I will go ahead and start a scopolamine patch to see if this does not help. Objective Data Objective Data Vital Signs: Vital Signs Temp Pulse Resp BP Pulse Ox O2 Del Method 98.7 F 74 18 121/65 H 94 Room Air 02/25/23 14:31 02/25/23 14:31 02/25/23 14:31 02/25/23 14:31 02/25/23 14:31 02/25/23 14:31 Oxygen Delivery Method Room Air Weight: 111.5 kg Body Mass Index (BMI) 46.4 Intake & Output: Intake and Output for Last 24 Hours 02/23/23 02/24/23 02/25/23 23:59 23:59 23:59 Intake Total 1000 / 1000 1270 / 1270 Balance 1000 / 1000 1270 / 1270 Lab / Micro Data 02/25/23 05:30 02/25/23 05:30 Labs: Laboratory Results - last 24 hr 02/24/23 16:15: Sodium 140, Potassium 3.6, Chloride 106, Carbon Dioxide 25.0, Anion Gap 9, BUN 21 H, Creatinine 1.37 H, Estim Creat Clear Calc 30.07, Est GFR (MDRD) Af Amer 49 L, Est GFR (MDRD) Non-Af 41 L, BUN/Creatinine Ratio 15.3, Glucose 80, Calcium 8.7, Total Bilirubin 1.80 H, Direct Bilirubin 0.35 H, AST 64 H, ALT 63 H, Alkaline Phosphatase 60, Total Protein 6.4, Albumin 3.8, Globulin 2.6, Lipase 174 H 02/24/23 16:55: WBC 6.9, RBC 4.25, Hgb 12.0, Hct 38.0, MCV 89.4, MCH 28.2, MCHC 31.6 L, RDW Std Deviation 46.1 H, RDW Coeff of Janey 14.5, Plt Count 210, MPV 9.2, Immature Gran % (Auto) 2.600 H, Neut % (Auto) 58.7, Lymph % (Auto) 26.8, Rowan % (Auto) 10.4 H, Eos % (Auto) 0.9, Baso % (Auto) 0.6, Absolute Neuts (auto) 4.1, Absolute Lymphs (auto) 1.86, Nucleated RBC % 0 02/24/23 18:20: Phosphorus 1.4 L, Magnesium 1.7, Troponin I High Sens 27 02/24/23 20:20: ESR 2, Lactate Dehydrogenase 489 H, C-React Prot Ext Range < 2.90, Ethyl Alcohol < 3.0 02/25/23 05:30: WBC 4.7, RBC 3.54 L, Hgb 9.9 L, Hct 32.2 L, MCV 91.0, MCH 28.0, MCHC 30.7 L, RDW Std Deviation 47.7 H, RDW Coeff of Janey 14.5, Plt Count 164, MPV 9.0, Immature Gran % (Auto) 3.800 H, Neut % (Auto) 44.8 L, Lymph % (Auto) 38.9, Rowan % (Auto) 10.0, Eos % (Auto) 2.1, Baso % (Auto) 0.4, Absolute Neuts (auto) 2.1, Absolute Lymphs (auto) 1.82, Nucleated RBC % 0, Sodium 142, Potassium 3.1 L , Chloride 111 H, Carbon Dioxide 25.0, Anion Gap 6, BUN 15, Creatinine 0.91, Estim Creat Clear Calc 45.27, Est GFR (MDRD) Af Amer 79, Est GFR (MDRD) Non-Af 66, BUN/Creatinine Ratio 16.5, Glucose 73 L, Calcium 7.3 L, Total Bilirubin 1.20 H, AST 37, ALT 45, Alkaline Phosphatase 47, Total Protein 4.8 L, Albumin 2.7 L, Globulin 2.1 L, Albumin/Globulin Ratio 1.3, Lipase 79 H Radiography Diagnostic Testing: Radiology Impression Abdomen/Pelvis CT 02/24/23 19:29 IMPRESSION: Uncomplicated acute interstitial appendicitis. Electronically Signed: Navneet Shook MD at 23:12 EDT , ADDENDUM: 02/25/23 0010 IMPRESSION: Uncomplicated acute interstitial pancreatitis. (Not appendicitis). Electronically Signed: Navneet Shook MD at 0:03 EDT , Physical Exam Const alert, oriented x3, no apparent distress and well nourished Constitutional Narrative: Upper middle-aged, morbidly obese, white female, sitting up in bed, watching TV and appears comfortable at this time, nontoxic HEENT head/scalp atraumatic and moist oral mucous membranes HEENT Narrative: Edentulous, Mallampati is 2, no thrush Head and Scalp: normocephalic Resp normal respiratory effort, no retractions, no use of accessory muscles and clear to auscultation bilaterally Auscultation: Negative for rales, rhonchi or wheezes Cardio regular rate, regular rhythm, S1 normal heart sound, S2 normal heart sound, no murmurs, no rub, no gallops and no clicks GI normal to inspection, nondistended, normoactive bowel sounds and soft to palpati on; Negative for non-tender GI Narrative: Tenderness in epigastric region predominantly Extremity no clubbing, cyanosis or edema Extremity Narrative: pulses are 2+ Neuro oriented x3, CN's II-XII intact bilaterally, moves all extremities and no focal motor deficits Speech: speech normal Psych Psych Narrative: Affect is flat and mood seems depressed Assessment & Plan Assessment/Plan (1) Acute recurrent pancreatitis: (2) Diarrhea: (3) Hypokalemia: (4) Hypophosphatemia: PLAN: Plan Acute on chronic pancreatitis -N.p.o. -IV fluids at 125 cc/h -As needed morphine -Continue home Creon -N.p.o. -Has had recent MRCP that was unremarkable -Lipase was only mildly elevated at 79 -GI consultation for possible ERCP -Autoimmune work-up pending--> CRP is within normal limits/ESR is within normal limits/LDH is elevated Nausea/vomiting/diarrhea -C. difficile is unremarkable -Check enteric panel -Continue as needed Zofran and add scopolamine patch -There is some question whether or not this could be psychosomatic -GI consultation pending Hypokalemia -Potassium 3.1 -Replace and recheck in a.m. Hypophosphatemia -K-Phos bolus -Recheck in a.m. JUDE -Serum creatinine on presentation was 1.37 -Serum creatinine is resolved and back to baseline is 0.91 -Continue IV fluids Hyperbilirubinemia -Trending down -1.81 on admission and down to 1.20 today -Etiology is unclear -GI is following Hypertension -Continue home metoprolol -Lisinopril on hold -If renal function remains normal will restart lisinopril tomorrow -Continue as needed hydralazine Hyperlipidemia -patient is not take a statin at baseline -Recommend outpatient follow-up History of giant cell arteritis -Patient has been on prednisone previously -Currently no longer taking prednisone -Sed rate CRP are normal History of abdominal aortic aneurysm -CTA of chest from 12/12/2022 notes ectasia of the ascending aorta at 3.9 cm -Continue blood pressure control GERD -Continue PPI via IV Protonix History of tobacco abuse -Encouraged ongoing cessation Anxiety/depression -Continue sertraline -Continue bupropion DVT prophylaxis -Continue SCDs -Await GI input for any procedures and consider chemoprophylaxis once procedures are completed CODE STATUS -Full code Charges/Coding Visit Charges Inpatient E&M: 43577 Subs Hosp L2
--- NOTE | 2023-02-25 15:41 | CASEMGMT ---
Discharge Planning Referral sent to [facility] via [facility]. Puja Maldonado, Discharge Planning Asst.
--- NOTE | 2023-02-25 16:43 | CON.PCM.GI_ITS ---
HPI Consult Data Date of Consult: 02/25/23 Attending Care Provider: Pancreatitis HPI Narrative Reason for Consultation: Pancreatitis HPI Narrative: AUGUSTINE PENA, is a 67 F who presents with worsening abdominal pain. She has a history of chronic pancreatitis and recent admission between 02/04/2023 to 02/11/2023 came to ER for upper quadrant abdominal pain mainly left upper quadrant that is started about 02/16/2023. She denies abdominal pain in lower quadrants. Abdominal pain is mainly left upper quadrant is goes to back. She has chronic abdominal pain from pancreatitis but got worse since 02/16/2023. She also has nausea vomiting and diarrhea that is started on 02/19/2023. No fever or chills. She was recently treated with antibiotic ceftriaxone for 7 days during hospital course for E. coli UTI. It is also morbidly obese and arthritis of right knee, difficult ambulation and not able to take care of herself. Vitals in the ED shows BP 186/87. Heart rate normal. No hypoxia or tachypnea. Labs reviewed. She had CT abdomen which shows punctate calcifications throughout the pancreas suggestive of chronic pancreatitis. No acute abnormality seen. Status post cholecystectomy and hysterectomy. She underwent MRCP that did not show any signs of choledocholithiasis or double duct sign. [facility] Medical History (Updated 02/25/23 @ 16:[address] Yates Friend, DO) Anemia Anxiety and depression Chronic pain Colon polyps Essential hypertension Former smoker GCA (giant cell arteritis) GERD (gastroesophageal reflux disease) Lung nodules Morbid obesity Morbid obesity Multiple thyroid nodules Osteoarthritis Osteoporosis Pancreatitis Poor dentition Pure hypercholesterolemia Thoracic aortic aneurysm without rupture Vision changes Home Medications calcium carbonate 600 mg-vitamin D3 10 mcg (400 unit) tablet 1 tab PO DAILY SUPPLEMENT 10/16/21 [History Last Taken 02/21/23] metoprolol succinate 25 mg tablet,extended release 24 hr 25 mg PO DAILY BLOOD PRESSURE #90 tabs 01/08/23 [Rx Last Taken 02/21/23] bupropion HCl 150 mg 24 hr tablet, extended release 150 mg PO DAILY DEPRESSION 02/04/23 [History Last Taken 02/21/23] ergocalciferol (vitamin D2) 1,250 mcg (50,000 unit) capsule 1,250 mcg PO TH 02/04/23 [History Last Taken 02/21/23] nystatin 100,000 unit/gram topical cream 1 applic topical BID PRN ANTIFUNGAL 02/04/23 [History Last Taken Unknown] sertraline 50 mg tablet 50 mg PO DAILY DEPRESSION 02/04/23 [History Last Taken 02/21/23] tocilizumab 162 mg/0.9 mL subcutaneous pen injector (Actemra ACTPen) 162 mg subcut TU RHEUMATOID ARTHRITIS 02/04/23 [History Last Taken 02/19/23] potassium chloride 20 mEq tablet,extended release 20 meq PO DAILY SUPPLEMENT 7 days #7 tabs 02/11/23 [Rx Last Taken 02/21/23] lisinopril 10 mg tablet 10 mg PO QHS BLOOD PRESSURE 02/22/23 [History Last Taken 02/21/23] lisinopril 10 mg tablet 20 mg PO DAILY BLOOD PRESSURE 02/22/23 [History Last Taken 02/21/23] prednisone 5 mg tablet See Taper PO DAILY STEROID 02/22/23 [History Last Taken 02/21/23] ahstau-hoguxuih-pmfqxdo 36,000-114,000-180,000 unit capsule,delay rel (Creon) 2 cap PO TID 30 days #180 caps 02/23/23 [Rx Last Taken Unknown] omeprazole 20 mg capsule,delayed release 40 mg (2 x 20 mg) PO DAILY ACID REFLUX 30 days #0 caps 02/23/23 [Rx Last Taken 02/21/23] Allergy/AdvReac Type Severity Reaction Status Date / Time No Known Allergies Allergy Verified 02/24/23 16:05 Family History Mother Colon cancer Father Cancer Lung Sister Breast cancer Brother Cancer Lung Surgical History History of carpal tunnel surgery History of cholecystectomy History of total hysterectomy Social History household members: none Smoking Status: Former smoker alcohol intake: never substance use type: does not use caffeine: Yes Type: coffee Number of servings: 2 ROS ROS Narrative Admission Review of Systems: CONSTITUTIONAL: No weight loss, fever, chills, + weakness or fatigue. HEENT: Eyes: No visual loss, blurred vision, double vision or yellow sclerae. Ears, Nose, Throat: No hearing loss, sneezing, congestion, runny nose or sore throat. SKIN: No rash or itching, lesions, wounds. CARDIOVASCULAR:+ Lightheadedness, dizziness. No chest pain, chest pressure or chest discomfort, palpitations, edema, orthopnea, syncopal events. RESPIRATORY: No shortness of breath, cough or sputum, wheezing, hemoptysis. GASTROINTESTINAL: + anorexia, nausea, vomiting, diarrhea, abdominal pain. No melena, BRBPR. GENITOURINARY: No dysuria, frequency, urgency or retention. NEUROLOGICAL: + Lightheadedness, dizziness. No headache, paralysis, ataxia, numbness or tingling in the extremities, focal weakness, change in bowel or bladder control, seizure. MUSCULOSKELETAL: + muscle, back pain, joint pain or stiffness. HEMATOLOGIC: + anemia, bleeding or bruising. LYMPHATICS: No enlarged nodes. No history of splenectomy. PSYCHIATRIC: + history of depression or anxiety. ENDOCRINOLOGIC: No reports of sweating, cold or heat intolerance. No polyuria or polydipsia. ALLERGIES: No history of asthma, hives, eczema or rhinitis. Physical Exam Narrative Physical Examination: General: Awake, alert, oriented x 3 and cooperative, seated upright in the ED bed, fatigued and ill-appearing. Skin: Normal color, normal turgor, no icterus, no cyanosis except for very staged ecchymoses likely with recent IV access and lab draws. HEENT: AT/NC, EOMI, PERRLA, dry MM, no carotid bruits or JVD noted; however, thickened neck makes evaluation difficult. Lungs: Distant, diminished, greater bases, appropriate effort, no rales, ronchi or wheezing. Heart: Regular rate and rhythm; no gallop, rub audible. Abdomen: Soft, morbidly obese, mild epigastric tenderness but no rebound or guarding no any specific right upper quadrant pain, difficult to assess distention and HSM secondary to morbidly obese habitus, hyperactive bowel sounds. Extremities: No cyanosis, clubbing, or edema. Neurological: Patient awake, alert, oriented as noted, cognitive function intact; pupils equally reactive to light and accommodation, cranial nerves II- XII grossly normal, moving all 4 extremities, no focal deficits, strength moderately to severely global decrease secondary to acute presentation complaints. Psychiatric: Affect appears flat, fatigued, ill-appearing, no acute evidence of depressive or anxiety feelings. Lab / Micro Data 02/25/23 05:30 02/25/23 05:30 Labs: Laboratory Results - last 24 hr 02/24/23 16:15: Sodium 140, Potassium 3.6, Chloride 106, Carbon Dioxide 25.0, Anion Gap 9, BUN 21 H, Creatinine 1.37 H, Estim Creat Clear Calc 30.07, Est GFR (MDRD) Af Amer 49 L, Est GFR (MDRD) Non-Af 41 L, BUN/Creatinine Ratio 15.3, Glucose 80, Calcium 8.7, Total Bilirubin 1.80 H, Direct Bilirubin 0.35 H, AST 64 H, ALT 63 H, Alkaline Phosphatase 60, Total Protein 6.4, Albumin 3.8, Globulin 2.6, Lipase 174 H 02/24/23 16:55: WBC 6.9, RBC 4.25, Hgb 12.0, Hct 38.0, MCV 89.4, MCH 28.2, MCHC 31.6 L, RDW Std Deviation 46.1 H, RDW Coeff of Janey 14.5, Plt Count 210, MPV 9.2, Immature Gran % (Auto) 2.600 H, Neut % (Auto) 58.7, Lymph % (Auto) 26.8, [place] % (Auto) 10.4 H, Eos % (Auto) 0.9, Baso % (Auto) 0.6, Absolute Neuts (auto) 4.1, Absolute Lymphs (auto) 1.86, Nucleated RBC % 0 02/24/23 18:20: Phosphorus 1.4 L, Magnesium 1.7, Troponin I High Sens 27 02/24/23 20:20: ESR 2, Lactate Dehydrogenase 489 H, C-React Prot Ext Range < 2.90, Ethyl Alcohol < 3.0 02/25/23 05:30: WBC 4.7, RBC 3.54 L, Hgb 9.9 L, Hct 32.2 L, MCV 91.0, MCH 28.0, MCHC 30.7 L, RDW Std Deviation 47.7 H, RDW Coeff of Janey 14.5, Plt Count 164, MPV 9.0, Immature Gran % (Auto) 3.800 H, Neut % (Auto) 44.8 L, Lymph % (Auto) 38.9, [place] % (Auto) 10.0, Eos % (Auto) 2.1, Baso % (Auto) 0.4, Absolute Neuts (auto) 2.1, Absolute Lymphs (auto) 1.82, Nucleated RBC % 0, Sodium 142, Potassium 3.1 L , Chloride 111 H, Carbon Dioxide 25.0, Anion Gap 6, BUN 15, Creatinine 0.91, Estim Creat Clear Calc 45.27, Est GFR (MDRD) Af Amer 79, Est GFR (MDRD) Non-Af 66, BUN/Creatinine Ratio 16.5, Glucose 73 L, Calcium 7.3 L, Total Bilirubin 1.20 H, AST 37, ALT 45, Alkaline Phosphatase 47, Total Protein 4.8 L, Albumin 2.7 L, Globulin 2.1 L, Albumin/Globulin Ratio 1.3, Lipase 79 H Radiology Impression Abdomen/Pelvis CT 02/24/23 19:29 IMPRESSION: Uncomplicated acute interstitial appendicitis. Electronically Signed: Navneet Shook MD at 23:12 EDT , ADDENDUM: 02/25/23 0010 IMPRESSION: Uncomplicated acute interstitial pancreatitis. (Not appendicitis). Electronically Signed: Navneet Shook MD at 0:03 EDT , Assessment & Plan Assessment/Plan (1) Chronic pancreatitis: PLAN: The main goal of initial treatment is to alleviate symptoms and prevent complications by reducing pancreatic secretory stimuli and correction of fluid and electrolyte abnormalities. Initially, patients should be fluid resuscitated and kept nil by mouth with bowel rest when nausea, vomiting or abdominal pain are present. Supportive care continues until pain is resolved and diet restar tori. The majority of patients will improve within 3?7 days of conservative management.??Hypocalcaemia and hypomagnesemia should be monitored very carefully. She has chronic pancreatitis by imaging and by history. She will need to take at least 120 to 160,000 international units of pancreatic enzymes per day. I would avoid pain medicine is much as possible. She may benefit from an upper endoscopy to see if she has a pancreatic rest that is in area outside of the biliary tract that leads to pancreatitis. I will send off an IgG4, protein electrophoresis and start her on empiric steroids. Charges/Coding Visit Charges Inpatient E&M: 29688 Init Hosp L3
[2023-02-25] MEDS: Methylprednisolone Sod Succ 40 MG/ML VIAL IV (17:47)
[2023-02-25] MEDS: Scopolamine 1mg/72hr Patch 1 PATCH TD (17:47)
[2023-02-26] MEDS: 0.9% Saline Lock 10 ML Syringe IV (02:06)
[2023-02-26] MEDS: Morphine 2 MG/ML Syringe IV (02:09)
[2023-02-26 02:30] VITALS: BP 165/83; PULSE 66; RESP 16; TEMP 36.5; O2SAT 95
[2023-02-26 04:14] VITALS: BMI 46.5
[2023-02-26] MEDS: 0.9% Normal Saline 1,000 ML 125 ML IV ×3 (05:47→23:22)
[2023-02-26 06:59] LABS: Absolute Lymphocyte Count 0.32 X10^3/uL (0.83-4.51); Absolute Neutrophil Count 3.8 X10^3/uL (2.0-7.7); Basophil# 0.01 X10^3/uL; Basophil% 0.2 % (0-1); Hematocrit 32.6 % (37-47); Lymphocyte # 0.32 X10^3/ul (0.83-4.51); Lymphocyte % 7.2 % (19-41); Mean Corp Hgb Conc 30.7 g/dL (32-36); Mean Corpuscular Hgb 27.7 pg (27.0-32.0); Mean Corpuscular Volume 90.3 fL (81-99); Mean Platelet Vol. 8.8 fl (6.2-12.0); Monocyte# 0.08 X10^3/uL; Monocyte% 1.8 % (0-10); NRBC Flagged by Analyzer 0 % (0-5); Neutrophil # 3.82 X10^3/uL (2.7-7.7); Neutrophil % 85.9 % (47-70); POSITIVE DIFFERENTIAL YES; Platelet Count 143 K/mm3 (150-450); RBC Distribution Width CV 14.6 % (11.6-14.6); RBC Distribution Width SD 47.3 fl (35.1-43.9); Red Blood Count 3.61 M/mm3 (4.2-5.4); White Blood Count 4.5 K/mm3 (4.4-11.0)
[2023-02-26 07:00] LABS: Differential Indicated SCAN CRITERIA MET
[2023-02-26 08:02] LABS: ALB/GLOB Ratio 1.2 RATIO (0.9-2.4); AST(SGOT) 31 U/L (15-37); Alanine Aminotransfer ALT/SGPT 45 U/L (13-56); Albumin, Serum 2.7 g/dL (3.2-5.0); Alkaline Phosphatase 47 U/L (45-117); Anion Gap 11 (5-15); BUN 10 mg/dL (7-18); BUN/Creat Ratio 13.2 RATIO (10-20); Calcium,Total 6.8 mg/dL (8.5-10.1); Chloride 111 mmol/L (98-107); Creatinine, Serum 0.76 mg/dL (0.55-1.02); EST Glomerular Filtration Rate 81 mL/min (>60); Est Glom Filt Rate - Afr Amer 98 mL/min (>60); Estimated Creatinine Clearance 41.19 ml/min; Globulin 2.3 g/dL (2.2-4.2); Glucose 131 mg/dL (74-106); Magnesium 1.5 mg/dL (1.6-2.6); Potassium 4.2 mmol/L (3.5-5.1); Sodium Level 143 mmol/L (136-145)
[2023-02-26 09:35] VITALS: BP 154/84; PULSE 64; RESP 16; TEMP 36.5; O2SAT 97
[2023-02-26 09:46] VITALS: BP 154/84; PULSE 64
[2023-02-26] MEDS: Methylprednisolone Sod Succ 40 MG/ML VIAL IV (09:46)
[2023-02-26] MEDS: Creon 24,000 unit DR Capsule 3 CAP PO ×3 (09:46→16:57)
[2023-02-26] MEDS: buPROPion (XL) 150 MG TABLET.XL PO (09:46)
[2023-02-26] MEDS: Metoprolol(XL)Succ 25 MG Tablet PO (09:46)
[2023-02-26] MEDS: Sertraline 50 MG Tablet PO (09:47)
[2023-02-26] MEDS: Lisinopril 20 MG Tablet PO (09:50)
[2023-02-26] MEDS: oxyCODONE 5 MG Tablet PO (09:50)
--- NOTE | 2023-02-26 11:23 | CASEMGMT ---
Social Work [facility] is unable to accept pt. SW met with pt and introduced self and role of SW. SW updated pt that [facility] and [facility] are unable to accept. Pt's next choices are [facility] and [facility]. [employer] assistant principal to send referrals. Plan: [facility], pending acceptance [facility]
--- NOTE | 2023-02-26 11:36 | CASEMGMT ---
Discharge Planning [facility] d/t no bed availability. Referral sent to [facility] via [facility]. Puja Maldonado, Discharge Planning Asst.
--- NOTE | 2023-02-26 12:34 | PCM.PN.HOSP ---
Reason for Visit Reason for Visit: Abdominal pain/nausea/vomiting Subjective Subjective Still having some intermittent abdominal pain. Patient does states she is hungry and that Dr. Massey indicated to her that she could start clear liquid diet. I did clarify this with Dr. Massey and we will go ahead and order clear liquids. No EGD required this admission. Overall patient is feeling better. Objective Data Objective Data Vital Signs: Vital Signs Temp Pulse Resp BP Pulse Ox O2 Del Method 97.7 F L 64 16 154/84 H 97 Room Air 02/26/23 09:35 02/26/23 09:46 02/26/23 09:35 02/26/23 09:46 02/26/23 09:35 02/26/23 09:40 Oxygen Delivery Method Room Air Weight: 111.8 kg Body Mass Index (BMI) 46.5 Intake & Output: Intake and Output for Last 24 Hours 02/24/23 02/25/23 02/26/23 23:59 23:59 23:59 Intake Total 1000 / 1000 2490.42 / 2490.42 1853.33 / 1853.33 Balance 1000 / 1000 2490.42 / 2490.42 1853.33 / 1853.33 Lab / Micro Data 02/26/23 06:35 02/26/23 06:35 Labs: Laboratory Results - last 24 hr 02/26/23 06:35: WBC 4.5, RBC 3.61 L, Hgb 10.0 L, Hct 32.6 L, MCV 90.3, MCH 27.7, MCHC 30.7 L, RDW Std Deviation 47.3 H, RDW Coeff of Janey 14.6, Plt Count 143 L, MPV 8.8, Immature Gran % (Auto) 4.900 H, Neut % (Auto) 85.9 H, Lymph % (Auto) 7.2 L, [place] % (Auto) 1.8, Eos % (Auto) 0.0, Baso % (Auto) 0.2, Absolute Neuts (auto) 3.8, Absolute Lymphs (auto) 0.32 L, Nucleated RBC % 0, Differential Comment COMMENT, Sodium 143, Potassium 4.2, Chloride 111 H, Carbon Dioxide 21.0, Anion Gap 11, BUN 10, Creatinine 0.76, Estim Creat Clear Calc 41.19, Est GFR (MDRD) Af Amer 98, Est GFR (MDRD) Non-Af 81, BUN/Creatinine Ratio 13.2, Glucose 131 H, Calcium 6.8 L, Phosphorus 3.0, Magnesium 1.5 L, Total Bilirubin 1.30 H, AST 31, ALT 45, Alkaline Phosphatase 47, Total Protein 5.0 L, Albumin 2.7 L, Globulin 2.3, Albumin/Globulin Ratio 1.2 Physical Exam Const alert, oriented x3, no apparent distress and well nourished Constitutional Narrative: Upper middle-aged, morbidly obese, white female, lying in bed, resting comfortably, appears comfortable and nontoxic HEENT head/scalp atraumatic and moist oral mucous membranes HEENT Narrative: Edentulous, Mallampati 2, no thrush Head and Scalp: normocephalic Resp normal respiratory effort, no retractions, no use of accessory muscles and clear to auscultation bilaterally Auscultation: Negative for rales, rhonchi or wheezes Cardio regular rate, regular rhythm, S1 normal heart sound, S2 normal heart sound, no murmurs, no rub, no gallops and no clicks GI normal to inspection, nondistended, normoactive bowel sounds and soft to palpation; Negative for non-tender GI Narrative: Tenderness in epigastric region Extremity no clubbing, cyanosis or edema Extremity Narrative: pulses are 2+ Neuro oriented x3, moves all extremities and no focal motor deficits Speech: speech normal Psych Psych Narrative: Affect is flat and mood seems depressed Assessment & Plan Assessment/Plan (1) Acute recurrent pancreatitis: (2) Diarrhea: (3) Hypokalemia: (4) Hypophosphatemia: PLAN: Plan Acute on chronic pancreatitis -Okay per GI to start clear liquid diet -Continue IV fluids at 125 cc/h and will discontinue tomorrow with clear liquids go okay -Continue as needed morphine -Continue home Creon -Has had recent MRCP that was unremarkable -Lipase was only mildly elevated at 79 -GI following-appreciate input -Autoimmune work-up pending--> CRP is within normal limits/ESR is within normal limits/LDH is elevated Nausea/vomiting/diarrhea -C. difficile is unremarkable -Enteric panel is pending patient's had no further diarrhea -Continue as needed Zofran -Continue scopolamine patch -There is some question whether or not this could be psychosomatic -GI following Hypokalemia -Resolved Hypomagnesemia -Magnesium levels 1.5 -2 g bolus next-repeat lab in a.m. Hypophosphatemia -Resolved JUDE -Resolved Hyperbilirubinemia -Has stabilized between 1.2 and 1.3 -1.81 on admission -Etiology is unclear -IV steroids initiated -GI is following Debility -PT/OT following -Social work working on SNF placement at discharge Hypertension -Continue home metoprolol -Restart home lisinopril -Continue as needed hydralazine Hyperlipidemia -patient is not take a statin at baseline -Recommend outpatient follow-up History of giant cell arteritis -Patient has been on prednisone previously -Currently no longer taking prednisone -Sed rate/CRP are normal History of abdominal aortic aneurysm -CTA of chest from 12/12/2022 notes ectasia of the ascending aorta at 3.9 cm -Continue blood pressure control GERD -Continue PPI via IV Protonix History of tobacco abuse -Encouraged ongoing cessation Anxiety/depression -Continue sertraline -Continue bupropion DVT prophylaxis -Continue SCDs -Await GI input for any procedures and consider chemoprophylaxis once procedures are completed CODE STATUS -Full code Charges/Coding Visit Charges Inpatient E&M: 59962 Subs Hosp L2
--- NOTE | 2023-02-26 13:15 | CHAPLAIN ---
Type of Pastoral Visit ___ Initial Visit ___ Follow-up Visit ___ On-call Visit ___ General Patient Visit ___ Spiritual Assessment ___ Family Conference ___ Bereavement ___ Rapid Response ___ Code Blue ___ Other (describe below) Pastoral Care Referral From ___ Patient ___ Family ___ Nurse ___ Physician ___ Operator And Truck Driver ___ Meteorological Technician ___ Other (describe below) Sacrament/Intervention ___ Active listening ___ Anointing ___ Hindu ___ Bereavement ___ Communion ___ Mariposa exploration ___ ___ Life review ___ Prayer ___ Reconciliation ___ Sacrament of Sick ___ Supportive presence ___ Wedding ___ Other (describe below) Pastoral Comments patient is sleeping and did not awaken when room entered by this label printing machinist
--- NOTE | 2023-02-26 14:11 | CASEMGMT ---
Social Work [facility] is able to accept pt. SW met [facility] pt and updated and pt is agreeable to d/c plan. Plan: [facility], when medically ready ART Potter
[2023-02-26 15:31] VITALS: BP 150/79; PULSE 72; RESP 16; TEMP 36.7; O2SAT 94
[2023-02-26 16:10] LABS: Albumin 3.4 g/dL (2.9-4.4); Alpha-1-Globulins 0.2 g/dL (0.0-0.4); Alpha-2-Globulins 0.8 g/dL (0.4-1.0); Gamma Globulin 0.5 g/dL (0.4-1.8); Immunoglobulin A 79 mg/dL (87-352); Immunoglobulin G 370 mg/dL (586-1602); Immunoglobulin M 65 mg/dL (26-217); PROEL- TOTAL PROTEIN 5.8 g/dL (6.0-8.5)
--- NOTE | 2023-02-26 16:48 | PN.GI_ITS ---
Subjective Subjective Patient stated this morning that she was on steroids prior to her coming to the hospital due to recent diagnosis of giant cell arteritis. She said she was on 60 mg of prednisone and was titrating down to which she thought was 40 mg of prednisone per day. She did notice that her abdominal pain got a little bit wor se as she titrated down the steroids. I had given her steroid yesterday as a trial to see if her symptoms got better with steroids. Also she was not able to picker box operator the pancreatic enzymes after leaving the hospital. Objective Data Objective Data Vital Signs: Vital Signs Temp Pulse Resp BP Pulse Ox O2 Del Method 98.1 F 72 16 150/79 H 94 Room Air 02/26/23 15:31 02/26/23 15:31 02/26/23 15:31 02/26/23 15:31 02/26/23 15:31 02/26/23 15:31 Oxygen Delivery Method Room Air Weight: 246 lb 7.629 oz Body Mass Index (BMI) 46.5 Intake & Output: Intake and Output for Last 24 Hours 02/24/23 02/25/23 02/26/23 23:59 23:59 23:59 Intake Total 1000 / 1000 2490.42 / 2490.42 2424.00 / 2424.00 Balance 1000 / 1000 2490.42 / 2490.42 2424.00 / 2424.00 Lab / Micro Data 02/26/23 06:35 02/26/23 06:35 Labs: Laboratory Results - last 24 hr 02/24/23 20:20: Total Protein (PEP) 5.8 L, Globulin 2.4, IgG 370 L, IgA 79 L, IgM 65, Immunofixation Screen Comment, Albumin (MALACHI) 3.4, Albumin/Globulin (MALACHI) 1.5, Wyviz-8-Qqknlulup MALACHI 0.2, Wvmgb-7-Nrnjolxdg MALACHI 0.8, Beta-Globulins (MALACHI) 0.9, Gamma Globulins (MALACHI) 0.5, MALACHI Comments Comment 02/26/23 06:35: WBC 4.5, RBC 3.61 L, Hgb 10.0 L, Hct 32.6 L, MCV 90.3, MCH 27.7, MCHC 30.7 L, RDW Std Deviation 47.3 H, RDW Coeff of Janey 14.6, Plt Count 143 L, MPV 8.8, Immature Gran % (Auto) 4.900 H, Neut % (Auto) 85.9 H, Lymph % (Auto) 7.2 L, Dewitt % (Auto) 1.8, Eos % (Auto) 0.0, Baso % (Auto) 0.2, Absolute Neuts ( auto) 3.8, Absolute Lymphs (auto) 0.32 L, Nucleated RBC % 0, Differential Com ment COMMENT, Sodium 143, Potassium 4.2, Chloride 111 H, Carbon Dioxide 21.0, Anion Gap 11, BUN 10, Creatinine 0.76, Estim Creat Clear Calc 41.19, Est GFR (MDRD) Af Amer 98, Est GFR (MDRD) Non-Af 81, BUN/Creatinine Ratio 13.2, Glucose 131 H, Calcium 6.8 L, Phosphorus 3.0, Magnesium 1.5 L, Total Bilirubin 1.30 H, AST 31, ALT 45, Alkaline Phosphatase 47, Total Protein 5.0 L, Albumin 2.7 L, Globulin 2.3, Albumin/Globulin Ratio 1.2 Physical Exam Const alert, oriented x3, no apparent distress and well nourished HEENT head/scalp atraumatic and moist oral mucous membranes HEENT Narrative: Edentulous, Mallampati 2, no thrush Head and Scalp: normocephalic Resp normal respiratory effort, no retractions, no use of accessory muscles and clear to auscultation bilaterally Auscultation: Negative for rales, rhonchi or wheezes Cardio regular rate, regular rhythm, S1 normal heart sound, S2 normal heart sound, no murmurs, no rub, no gallops and no clicks GI normal to inspection, nondistended, normoactive bowel sounds and soft to palpation; Negative for non-tender GI Narrative: Tenderness in epigastric region Extremity no clubbing, cyanosis or edema Extremity Narrative: pulses are 2+ Neuro oriented x3, moves all extremities and no focal motor deficits Speech: speech normal Psych Psych Narrative: Affect is flat and mood seems depressed Assessment & Plan Assessment/Plan (1) Chronic pancreatitis: PLAN: The main goal of initial treatment is to alleviate symptoms and prevent complications by reducing pancreatic secretory stimuli and correction of fluid and electrolyte abnormalities. Initially, patients should be fluid resuscitated and kept nil by mouth with bowel rest when nausea, vomiting or abdominal pain are present. Supportive care continues until pain is resolved and diet restarted. The majority of patients will improve within 3?7 days of conservative management.??Hypocalcaemia and hypomagnesemia should be monitored very carefully. She has chronic pancreatitis by imaging and by history. She will need to take at least 120 to 160,000 international units of pancreatic enzymes per day. I would avoid pain medicine is much as possible. She may be nefit from an upper endoscopy to see if she has a pancreatic rest that is in area outside of the biliary tract that leads to pancreatitis. I will send off an IgG4, protein electrophoresis and start her on empiric steroids. 02/26: Her ESR and CRP are both within normal limits. I think her lipase could be coming from another place other than the pancreas. The differential diagnosis would be pancreatic divisum although the that was not clearly seen on MRCP. However due to motion artifact it was not a very good study. It also could come from a pancreatic rest differential diagnosis for hyper lipase anemia She does not meet 2 criteria for acute pancreatitis and she meets the criteria for chronic pancreatitis with the calcifications. I cannot tell if she has small duct chronic pancreatitis or large the duct chronic pancreatitis by her current imaging. Pancreatitis Diagnostic Criteria ? Has to meet 2 of 3 criteria ? Lipase >3x the upper limit of normal ? Imaging findings consistent with pancreatitis ? Mid-epigastric abdominal pain, classically radiating straight through to back Continue steroids for now as she was on them as an outpatient. Start pancreatic enzymes. Await IgG4. Check protein electrophoresis, celiac markers, CLAYTON level, ferritin, iron plus iron saturation. Charges/Coding Visit Charges Inpatient E&M: 64831 Subs Hosp L3
[2023-02-26 17:48] LABS: Ferritin 71 ng/mL (8-252); Iron 34 ug/dL (50-170); Iron Binding Capacity,Total 285 ug/dL (250-450); PERCENT IRON SATURATION 11.9 % (15.0-55.0)
[2023-02-26 21:00] VITALS: BP 160/78; PULSE 71; RESP 16; TEMP 36.3; O2SAT 97
[2023-02-27] VITALS (16 sets, daily range): BP systolic 138–194; BP diastolic 72–102; PULSE 65–78; RESP 16–18; TEMP 36.6–37.1; O2SAT 93–100; BMI 46.4
[2023-02-27] MEDS: oxyCODONE 5 MG Tablet PO (03:59)
[2023-02-27] MEDS: hydrALAZINE 20 MG/ML Vial 10 MG IV ×2 (04:03→21:41)
[2023-02-27] MEDS: 0.9% Saline Lock 10 ML Syringe IV ×2 (04:04→09:05)
[2023-02-27 06:41] LABS: Absolute Lymphocyte Count 1.25 X10^3/uL (0.83-4.51); Absolute Neutrophil Count 6.1 X10^3/uL (2.0-7.7); Basophil# 0.03 X10^3/uL; Basophil% 0.4 % (0-1); Eosinophil# 0.01 X10^3/uL; Eosinophils% 0.1 % (0-5); Hematocrit 32.3 % (37-47); Hemoglobin 10.2 g/dL (12.0-15.0); Lymphocyte # 1.25 X10^3/ul (0.83-4.51); Lymphocyte % 14.8 % (19-41); Mean Corp Hgb Conc 31.6 g/dL (32-36); Mean Corpuscular Hgb 28.2 pg (27.0-32.0); Mean Corpuscular Volume 89.2 fL (81-99); Monocyte# 0.69 X10^3/uL; Monocyte% 8.2 % (0-10); NRBC Flagged by Analyzer 0 % (0-5); Neutrophil # 6.14 X10^3/uL (2.7-7.7); Neutrophil % 72.7 % (47-70); Platelet Count 181 K/mm3 (150-450); RBC Distribution Width CV 14.9 % (11.6-14.6); RBC Distribution Width SD 47.3 fl (35.1-43.9); Red Blood Count 3.62 M/mm3 (4.2-5.4); White Blood Count 8.4 K/mm3 (4.4-11.0)
[2023-02-27 07:13] LABS: ALB/GLOB Ratio 1.4 RATIO (0.9-2.4); AST(SGOT) 24 U/L (15-37); Alanine Aminotransfer ALT/SGPT 44 U/L (13-56); Alkaline Phosphatase 47 U/L (45-117); Anion Gap 7 (5-15); BUN 9 mg/dL (7-18); BUN/Creat Ratio 11.8 RATIO (10-20); Calcium,Total 6.9 mg/dL (8.5-10.1); Chloride 111 mmol/L (98-107); Creatinine, Serum 0.76 mg/dL (0.55-1.02); EST Glomerular Filtration Rate 81 mL/min (>60); Est Glom Filt Rate - Afr Amer 98 mL/min (>60); Estimated Creatinine Clearance 41.19 ml/min; Globulin 2.1 g/dL (2.2-4.2); Glucose 95 mg/dL (74-106); Magnesium 1.8 mg/dL (1.6-2.6); Potassium 3.1 mmol/L (3.5-5.1); Protein, Total 5.1 g/dL (6.4-8.2); Sodium Level 141 mmol/L (136-145)
[2023-02-27] MEDS: 0.9% Normal Saline 1,000 ML 125 ML IV ×3 (09:04→21:41)
[2023-02-27] MEDS: Potassium Chloride Oral Tablet 20 MEQ 60 MEQ PO (09:05)
[2023-02-27] MEDS: Creon 24,000 unit DR Capsule 3 CAP PO ×3 (09:05→17:40)
[2023-02-27] MEDS: buPROPion (XL) 150 MG TABLET.XL PO (09:06)
[2023-02-27] MEDS: Metoprolol(XL)Succ 25 MG Tablet PO (09:06)
[2023-02-27] MEDS: Lisinopril 20 MG Tablet PO (09:06)
[2023-02-27] MEDS: Sertraline 50 MG Tablet PO (09:06)
[2023-02-27] MEDS: amLODIPine 5 MG Tablet PO (09:56)
[2023-02-27] MEDS: Methylprednisolone Sod Succ 40 MG/ML VIAL IV (09:57)
--- NOTE | 2023-02-27 10:05 | CASEMGMT ---
Discharge Planning Updates sent to [facility] via [employer]. Informed them that patient will have GI consult and will not discharge today. Puja Maldonado, Discharge Planning Asst.
--- NOTE | 2023-02-27 12:44 | OP.CCLET_ITS ---
02/27/2023 Mauro Hastings Re : Upper GI endoscopy procedure for Radha Retana Venkata This procedure was performed on Monday, February 27, 2023. My impressions and recommendations are as follows: Impressions : - Normal esophagus. - Medium-sized hiatal hernia. - Erythematous mucosa in the cardia. Biopsied. - Erythematous duodenopathy. Biopsied. Recommendations : - Discharge patient to home. - Resume previous diet. - Continue present medications. - Await pathology results. My findings are described in the full procedure note, which is enclosed. If I can be of further assistance, please feel free to contact me at . Sincerely, Milan Massey, 02/27/2023 12:43:56 PM This report has been signed electronically.
--- NOTE | 2023-02-27 12:44 | OP.EGD_ITS ---
Patient Name: Radha Schwartz Procedure Date: 02/27/2023 12:23 PM Date of : 1955 Age: 67 Procedure: Upper GI endoscopy Indications: Failure to respond to medical treatment Providers: Milan Massey DO Medicines: Monitored Anesthesia Care Patient Profile: This is a 67 year old female. Refer to note in patient chart for documentation of history and physical. Patient has symptoms of acute epigastric abdominal pain. Complications: No immediate complications. Procedure: Pre-Anesthesia Assessment: - Prior to the procedure, a History and Physical was performed, and patient medications and allergies were reviewed. The patient is competent. The risks and benefits of the procedure and the sedation options and risks were discussed with the patient. All questions were answered and informed consent was obtained. Patient identification and proposed procedure were verified by the physician. Mental Status Examination: normal. CV Examination: normal. Prophylactic Antibiotics: The patient does not require prophylactic antibiotics. Prior Anticoagulants: The patient has taken no previous anticoagulant or antiplatelet agents. After reviewing the risks and benefits, the patient was deemed in satisfactory condition to undergo the procedure. The anesthesia plan was to use minimal sedation / analgesia (anxiolysis). Immediately prior to administration of medications, the patient was re-assessed for adequacy to receive sedatives. The heart rate, respiratory rate, oxygen saturations, blood pressure, adequacy of pulmonary ventilation, and response to care were monitored throughout the procedure. The physical status of the patient was re-assessed after the procedure. After obtaining informed consent, the endoscope was passed under direct vision. Throughout the procedure, the patient's blood pressure, pulse, and oxygen saturations were monitored continuously. The gastroscope was introduced through the mouth, and advanced to the second part of duodenum. The upper GI endoscopy was accomplished without difficulty. The patient tolerated the procedure well. Scope In: 12:34:44 PM Scope Out: 12:37:28 PM Total Procedure Duration Time 0 hours 2 minutes 44 seconds Findings: The examined esophagus was normal. A medium-sized hiatal hernia was present. Patchy mildly erythematous mucosa without bleeding was found in the cardia. Biopsies were taken with a cold forceps for histology. Verification of patient identification for the specimen was done. Estimated blood loss was minimal. Patchy mildly erythematous mucosa without active bleeding and with no stigmata of bleeding was found in the duodenal bulb. Biopsies were taken with a cold forceps for histology. Verification of patient identification for the specimen was done. Estimated blood loss was minimal. Impression: - Normal esophagus. - Medium-sized hiatal hernia. - Erythematous mucosa in the cardia. Biopsied. - Erythematous duodenopathy. Biopsied. Recommendation: - Discharge patient to home. - Resume previous diet. - Continue present medications. - Await pathology results. Procedure Code(s): --- Professional --- 46287, Esophagogastroduodenoscopy, flexible, transoral; with biopsy, single or multiple CPT copyright 2017 [employer]. All rights reserved. The codes documented in this report are preliminary and upon auto emissions technician review may be revised to meet current compliance requirements. Milan Massey DO 02/27/2023 12:43:56 PM This report has been signed electronically. Number of Addenda: 0 Note Initiated On: 02/27/2023 12:23 PM
--- NOTE | 2023-02-27 13:30 | IMM_PTH ---
PATIENT: AUGUSTINE PENA LOC: MS3 U#:[id number] AGE/SX: 67/F ROOM: [facility] [place] RE02/24/[address]: Dr. Anny Leach DO : 1955 BED: 1 DIS: 03/02/2023 SPEC #: [id number] RECD: 02/28/23 13:05 STATUS: MARY KATE REQ #: [id number] NICOLE: 02/27/23 13:[address]: Ra Shilpahsaan DEPT: IMMUNOHISTOCHEMISTRY RECD BY: Anna Montelongo ENTERED: 02/28/23 13:05 SP TYPE: IMMUNO OTHR DR: MD Dr. Anny Dixon DO Dr. William Lago, MD Tissues: B - Stomach, NOS Procedures: H Pylori (initial) PHYSICIAN & INSTITUTION [place] [id number] SPECIMEN INFORMATION: Tissue Source: B - Gastric cardia Clinical Info: Abdomen pain, pancreatitis Specimen Number: [id number] CPT code: 66106 METHODOLOGY: Deparaffinized sections of prefer/formalin-fixed tissue or PAP/DQ stained slides are incubated with monoclonal/polyclonal antibodies/oligonucleotide probes. Localization is made via biotin free immunoperoxidase method. Appropriate controls are performed and reacted as expected. Results on target cell population are indicated in the following table: RESULTS: ANTIBODY / CLONE RESULT Block B H Pylori (polyclonal) negative These tests were developed and their performance characteristics determined by [facility]. They may not have been cleared or approved by the U.S. Food and Drug Administration. The FDA has determined that such clearance or approval is not necessary. The above immunohistochemical/dualISH markers are ordered and reviewed by the Pathologist. INTERPRETATION: B. Gastric cardia, biopsy: Negative for Helicobacter pylori organisms. SJ:hiro 03/01/2023
--- NOTE | 2023-02-27 13:30 | EGD_PTH ---
PATIENT: AUGUSTINE PENA LOC: MS3 U#:[id number] AGE/SX: 67/F ROOM: [facility] RE02/24/[address]: Dr. Anny Leach DO : 1955 BED: 1 DIS: 03/02/2023 SPEC #: [id number] RECD: 02/27/23 14:27 STATUS: MARY KATE REKirit #: [id number] NICOLE: 02/27/23 13:[address]: Milan Massey DEPT: SURGICAL PATHOLOGY RECD BY: Milla Terry ENTERED: 02/28/23 09:50 SP TYPE: EGD BIOPSY OT DR: MD Dr. Anny Dixon DO Dr. William Lago, MD Tissues: A - Duodenum, NOS B - Gastric mucous membrane Procedures: Surgery Specimen Level IV Comments: @ Ordering doctor for SUIV edited from to @ by MASHA at 02/28/23 1305 @ Submitting doctor edited from to @ by MASHA at 02/28/23 1305 HEADER OPERATION: EGD, biopsy PRE-OP DIAGNOSIS: Abdomen pain, pancreatitis TISSUE SUBMITTED: A - Duodenum biopsy, B - Gastric cardia biopsy MICROSCOPIC DIAGNOSIS A. Duodenum, biopsy: A fragment of duodenal mucosa, no pathologic diagnosis. B. Gastric cardia, biopsy: Minimal gastritis. See microscopic description and comment. SJ:hiro 03/01/2023 COMMENT B. The results of immunohistochemistry for Helicobacter pylori will be reported separately ([id number]). MICROSCOPIC DESCRIPTION Slides are reviewed. B. The specimen shows fragments of gastric mucosa with chronic inflammatory cell infiltrates in the lamina propria consisting of lymphocytes and plasma cells, consistent with minimal chronic gastritis. GROSS DESCRIPTION A - Received in fixative is one container labeled with the patient's name and designated duodenum biopsy. The specimen consists of one irregular fragment of light mendez soft tissue that measures 0.3 x 0.3 x 0.1 cm. The specimen is totally submitted in one cassette. B - Received in fixative is one container labeled with the patient's name and designated gastric cardia biopsy. The specimen consists of two irregular fragments of light mendez soft tissue that in aggregate measure 0.8 x 0.2 x 0.1 cm. The specimen is totally submitted in one cassette. / SJ:rg 02/28/2023 TC:3 CPT: 07370 x2
--- NOTE | 2023-02-27 14:13 | PCM.PN.HOSP ---
Reason for Visit Reason for Visit: Abdominal pain/nausea/vomiting Subjective Subjective Patient states she did well with clear liquids yesterday but developed abdominal pain and nausea and vomiting earlier this morning. She rates her pain at 8 out of 10. I will go ahead and make her n.p.o. again and continue IV fluids. Case was discussed with Dr. Massey and he plans on EGD later today since she is having ongoing issues. Objective Data Objective Data Vital Signs: Vital Signs Temp Pulse Resp BP Pulse Ox O2 Del Method 98.5 F 71 18 168/75 H 93 Room Air 02/27/23 13:26 02/27/23 13:26 02/27/23 13:26 02/27/23 13:26 02/27/23 13:26 02/27/23 13:26 Oxygen Delivery Method Room Air Weight: 111.6 kg Body Mass Index (BMI) 46.4 Intake & Output: Intake and Output for Last 24 Hours 02/25/23 02/26/23 02/27/23 23:59 23:59 23:59 Intake Total 2490.42 / 2490.42 3534.00 / 3534.00 1110 / 1110 Balance 2490.42 / 2490.42 3534.00 / 3534.00 1110 / 1110 Lab / Micro Data 02/27/23 06:30 02/27/23 06:30 Labs: Laboratory Results - last 24 hr 02/24/23 20:20: Total Protein (PEP) 5.8 L, Globulin 2.4, IgG 370 L, IgA 79 L, IgM 65, Immunofixation Screen Comment, Albumin (MALACHI) 3.4, Albumin/Globulin (MALACHI) 1.5, Vanmd-5-Jrhouwxpy MALACHI 0.2, Vvlsw-6-Bjocxlnsv MALACHI 0.8, Beta-Globulins (MALACHI) 0.9, Gamma Globulins (MALACHI) 0.5, MALACHI Comments Comment 02/26/23 06:35: Iron 34 L, TIBC 285, Iron Saturation 11.9 L, Ferritin 71 02/27/23 06:30: WBC 8.4, RBC 3.62 L, Hgb 10.2 L, Hct 32.3 L, MCV 89.2, MCH 28.2, MCHC 31.6 L, RDW Std Deviation 47.3 H, RDW Coeff of Janey 14.9 H, Plt Count 181, MPV 9.0, Immature Gran % (Auto) 3.800 H, Neut % (Auto) 72.7 H, Lymph % (Auto) 14.8 L, [place] % (Auto) 8.2, Eos % (Auto) 0.1, Baso % (Auto) 0.4, Absolute Neuts (auto) 6.1, Absolute Lymphs (auto) 1.25, Nucleated RBC % 0, Sodium 141, Potassium 3.1 L, Chloride 111 H, Carbon Dioxide 23.0, Anion Gap 7, BUN 9, Creatinine 0.76, Estim Creat Clear Calc 41.19, Est GFR (MDRD) Af Amer 98, Est GFR (MDRD) Non-Af 81, BUN/Creatinine Ratio 11.8, Glucose 95, Calcium 6.9 L, Magnesium 1.8, Total Bilirubin 1.10 H, AST 24, ALT 44, Alkaline Phosphatase 47, Total Protein 5.1 L, Albumin 3.0 L, Globulin 2.1 L, Albumin/Globulin Ratio 1.4 Physical Exam Const alert, oriented x3, no apparent distress and well nourished Constitutional Narrative: Upper middle-aged, morbidly obese, white female, lying in bed, resting comfortably, appears as if she is not feeling well at this time however is not toxic HEENT head/scalp atraumatic and moist oral mucous membranes HEENT Narrative: Edentulous, Mallampati 2, no thrush Head and Scalp: normocephalic Resp normal respiratory effort, no retractions, no use of accessory muscles and clear to auscultation bilaterally Auscultation: Negative for rales, rhonchi or wheezes Cardio regular rate, regular rhythm, S1 normal heart sound, S2 normal heart sound, no murmurs, no rub, no gallops and no clicks GI normal to inspection, nondistended, normoactive bowel sounds and soft to palpation; Negative for non-tender GI Narrative: Tenderness in epigastric region and around left and right upper abdomen Extremity no clubbing, cyanosis or edema Extremity Narrative: Pedal pulses are 2+ Neuro oriented x3, moves all extremities and no focal motor deficits Speech: speech normal Psych Psych Narrative: Affect is flat and mood seems depressed Assessment & Plan Assessment/Plan (1) Acute recurrent pancreatitis: (2) Diarrhea: (3) Hypokalemia: (4) Hypophosphatemia: PLAN: Plan Acute on chronic pancreatitis -N.p.o. since worsening pain and nausea and vomiting -Plan for EGD later today -Continue IV fluids at 125 cc/h -Continue as needed morphine -Continue home Creon -Has had recent MRCP that was unremarkable -Lipase was only mildly elevated at 79 -GI following-appreciate input -Autoimmune work-up still pending--> CRP is within normal limits/ESR is within normal limits/LDH is elevated -Wait for further input after EGD done Nausea/vomiting/diarrhea -C. difficile is unremarkable -Enteric panel is pending patient's had no further diarrhea -Continue as needed Zofran -Continue scopolamine patch -There is some question whether or not this could be psychosomatic -GI following Hypokalemia -Recurrent hypokalemia -P.o. potassium replacement -Recheck in a.m. Hypomagnesemia -Resolved in a.m. mag levels 1.8 JUDE -Resolved Hyperbilirubinemia -Has stabilized between 1.2 and 1.3 - currently has dropped down to 1.1 -Etiology is unclear -Continue IV steroids per GI -GI is following Debility -PT/OT following -Social work working on SNF placement at discharge Hypertension -Continue home metoprolol -Continue home lisinopril -Add amlodipine 5 mg daily as pressures have been elevated -Continue as needed hydralazine Hyperlipidemia -patient is not take a statin at baseline -Recommend outpatient follow-up History of giant cell arteritis -Patient has been on prednisone previously -Currently no longer taking prednisone -Sed rate/CRP are normal History of abdominal aortic aneurysm -CTA of chest from 12/12/2022 notes ectasia of the ascending aorta at 3.9 cm -Continue blood pressure control GERD -Continue PPI via IV Protonix History of tobacco abuse -Encouraged ongoing cessation Anxiety/depression -Continue sertraline -Continue bupropion DVT prophylaxis -Start Lovenox subcu CODE STATUS -Full code Charges/Coding Visit Charges Inpatient E&M: 78758 Subs Hosp L2
--- NOTE | 2023-02-27 16:07 | CHAPLAIN ---
Type of Pastoral Visit ___ Initial Visit ___ Follow-up Visit ___ On-call Visit ___ General Patient Visit ___ Spiritual Assessment ___ Family Conference ___ Bereavement ___ Rapid Response ___ Code Blue ___ Other (describe below) Pastoral Care Referral From ___ Patient ___ Family ___ Nurse ___ Physician ___ Hand Almond Blancher ___ Ups Driver ___ Other (describe below) Sacrament/Intervention ___ Active listening ___ Anointing ___ Restorationist ___ Bereavement ___ Communion ___ Mariposa exploration ___ ___ Life review ___ Prayer ___ Reconciliation ___ Sacrament of Sick ___ Supportive presence ___ Wedding ___ Other (describe below) Pastoral Comments patient was on the phone and asked that this pricer bagger would come back later
[2023-02-27] MEDS: Enoxaparin 40 MG/0.4 ML Syringe SC (21:40)
[2023-02-28] VITALS (9 sets, daily range): BP systolic 145–201; BP diastolic 70–94; PULSE 67–76; RESP 16–18; TEMP 36.6–36.8; O2SAT 91–96; BMI 46.7
[2023-02-28] MEDS: 0.9% Normal Saline 1,000 ML 125 ML IV (05:33)
[2023-02-28] MEDS: hydrALAZINE 20 MG/ML Vial 10 MG IV (06:24)
[2023-02-28 06:52] LABS: Hematocrit 32.1 % (37-47); Hemoglobin 10.3 g/dL (12.0-15.0); Mean Corp Hgb Conc 32.1 g/dL (32-36); Mean Corpuscular Hgb 28.5 pg (27.0-32.0); Mean Corpuscular Volume 88.9 fL (81-99); Mean Platelet Vol. 8.7 fl (6.2-12.0); NRBC Flagged by Analyzer 0.3 % (0-5); POSITIVE COUNT YES; POSITIVE MORPHOLOGY YES; Platelet Count 144 K/mm3 (150-450); RBC Distribution Width CV 15.5 % (11.6-14.6); RBC Distribution Width SD 48.6 fl (35.1-43.9); Red Blood Count 3.61 M/mm3 (4.2-5.4); White Blood Count 7.2 K/mm3 (4.4-11.0)
[2023-02-28 06:55] LABS: Differential Indicated SCAN CRITERIA MET
[2023-02-28 07:10] LABS: Scan Smear per Review Criteria MANUAL DIFF
[2023-02-28 07:11] LABS: Lymphocyte 16 % (19-41); Monocyte 7 % (0-10); Myelocyte 2 % (0-0); Neutrophil-Band 1 % (0-5); Neutrophil-Segmented 74 % (47-70); Platelet Estimate ADEQUATE (ADEQ); Red Cell Morphology NORM C+C NORMAL (NORM C&C); Total Cells Counted 100 (MANUAL DIFF)
[2023-02-28 07:12] LABS: Absolute Lymphocyte Count 1.16 X10^3/uL (0.83-4.51); Absolute Neutrophil Count 5.4 X10^3/uL (2.0-7.7); Lymphocyte # 1.16 X10^3/ul (0.83-4.51); Neutrophil # 5.43 X10^3/uL (2.7-7.7)
[2023-02-28 07:25] LABS: ALB/GLOB Ratio 1.3 RATIO (0.9-2.4); AST(SGOT) 18 U/L (15-37); Alanine Aminotransfer ALT/SGPT 40 U/L (13-56); Albumin, Serum 2.9 g/dL (3.2-5.0); Alkaline Phosphatase 44 U/L (45-117); Anion Gap 8 (5-15); BUN 7 mg/dL (7-18); Chloride 110 mmol/L (98-107); Creatinine, Serum 0.63 mg/dL (0.55-1.02); EST Glomerular Filtration Rate 99 mL/min (>60); Est Glom Filt Rate - Afr Amer 120 mL/min (>60); Estimated Creatinine Clearance 41.19 ml/min; Globulin 2.2 g/dL (2.2-4.2); Glucose 101 mg/dL (74-106); Potassium 3.4 mmol/L (3.5-5.1); Protein, Total 5.1 g/dL (6.4-8.2); Sodium Level 142 mmol/L (136-145)
[2023-02-28] MEDS: Metoprolol(XL)Succ 25 MG Tablet PO (09:11)
[2023-02-28] MEDS: Lisinopril 20 MG Tablet PO (09:11)
[2023-02-28] MEDS: Creon 24,000 unit DR Capsule 3 CAP PO ×3 (09:11→17:55)
[2023-02-28] MEDS: Enoxaparin 40 MG/0.4 ML Syringe SC ×2 (09:12→21:32)
[2023-02-28] MEDS: Sertraline 50 MG Tablet PO (09:12)
[2023-02-28] MEDS: buPROPion (XL) 150 MG TABLET.XL PO (09:12)
[2023-02-28] MEDS: Methylprednisolone Sod Succ 40 MG/ML VIAL IV (09:14)
[2023-02-28] MEDS: amLODIPine 10 MG Tablet PO (09:18)
--- NOTE | 2023-02-28 11:18 | PN.HOSP_ITS ---
Reason for Visit Reason for Visit: Abdominal pain/nausea/vomiting Subjective Subjective Patient states she feels about the same as yesterday however she objectively looks better. EGD yesterday was unremarkable. GI is now questioning gastroparesis. Thus far her work-up has been essentially unremarkable. Objective Data Objective Data Vital Signs: Vital Signs Temp Pulse Resp BP Pulse Ox O2 Del Method 98.2 F 76 16 161/70 H 94 Room Air 02/28/23 09:22 02/28/23 09:22 02/28/23 09:22 02/28/23 09:22 02/28/23 09:22 02/28/23 09:22 Oxygen Delivery Method Room Air Weight: 112.2 kg Body Mass Index (BMI) 46.7 Intake & Output: Intake and Output for Last 24 Hours 02/26/23 02/27/23 02/28/23 23:59 23:59 23:59 Intake Total 3534.00 / 3534.00 2797.08 / 2797.08 1454.16 / 1454.16 Balance 3534.00 / 3534.00 2797.08 / 2797.08 1454.16 / 1454.16 Lab / Micro Data 02/28/23 06:33 02/28/23 06:33 Labs: Laboratory Results - last 24 hr 02/24/23 20:20: MALACHI M-Shad 02/28/23 06:33: WBC 7.2, RBC 3.61 L, Hgb 10.3 L, Hct 32.1 L, MCV 88.9, MCH 28.5, MCHC 32.1, RDW Std Deviation 48.6 H, RDW Coeff of Janey 15.5 H, Plt Count 144 L, MPV 8.7, Immature Gran % (Auto) [employer], Neut % (Auto) [employer], Lymph % (Auto) [employer], Mcdowell % (Auto) [employer], Eos % (Auto) [employer], Baso % (Auto) [employer], Absolute Neuts (auto) 5.4, Absolute Lymphs (auto) 1.16, Total Counted 100, Neutrophils % (Manual) 74 H, Band Neutrophils % 1, Lymphocytes % (Manual) 16 L, Monocytes % (Manual) 7, Myelocytes % 2 H, Nucleated RBC % 0.3, Diff Path Review December, Platelet Estimate ADEQUATE, RBC Morphology NORM C+C, Sodium 142, Potassium 3.4 L, Chloride 110 H, Carbon Dioxide 24.0, Anion Gap 8, BUN 7, Creatinine 0.63, Estim Creat Clear Calc 41.19, Est GFR (MDRD) Af Amer 120, Est GFR (MDRD) Non-Af 99, BUN/Creatinine Ratio 11.0, Glucose 101, Calcium 7.0 L, Total Bilirubin 1.00, AST 18, ALT 40, Alkaline Phosphatase 44 L, Total Protein 5.1 L, Albumin 2.9 L, Globulin 2.2, Albumin/Globulin Ratio 1.3 Physical Exam Const alert, oriented x3, no apparent distress and well nourished Constitutional Narrative: Upper middle-aged, morbidly obese, white female, transitioning out of bed with therapy at the bedside, appears if she is feeling better than she appeared yesterday, nontoxic HEENT head/scalp atraumatic and moist oral mucous membranes Head and Scalp: normocephalic Resp normal respiratory effort, no retractions, no use of accessory muscles and clear to auscultation bilaterally Auscultation: Negative for rales, rhonchi or wheezes Cardio regular rate, regular rhythm, S1 normal heart sound, S2 normal heart sound, no murmurs, no rub, no gallops and no clicks GI normal to inspection, nondistended, normoactive bowel sounds and soft to palpation; Negative for non-tender GI Narrative: Tenderness in epigastric region and around left and right upper abdomen Extremity no clubbing, cyanosis or edema Extremity Narrative: Pedal pulses are 2+ Neuro oriented x3, moves all extremities and no focal motor deficits Neuro Narrative: Is able to transition herself from lying to sitting up on the edge of the bed independently Speech: speech normal Psych Psych Narrative: Affect is flat and mood seems depressed Assessment & Plan Assessment/Plan (1) Acute recurrent pancreatitis: (2) Diarrhea: (3) Hypokalemia: (4) Hypophosphatemia: PLAN: Plan Acute on chronic pancreatitis -We will retrial clear liquid diet -EGD was unremarkable -Decrease IV fluid rate -Continue as needed morphine -Continue home Creon -Has had recent MRCP that was unremarkable -Lipase was only mildly elevated at 79 -GI following-appreciate input -Autoimmune work-up still pending--> CRP is within normal limits/ESR is within normal limits/LDH is elevated Nausea/vomiting/diarrhea -C. difficile is unremarkable -Enteric panel is pending patient's had no further diarrhea -Continue as needed Zofran -Continue scopolamine patch -Add Reglan 10 Q8 -If the Reglan does not help we will add Xanax per GI recommendations but will titrate and add medication slowly -There is some question whether or not this could be psychosomatic -GI following--> questioning gastroparesis with negative work-up thus far Hypokalemia -Recurrent hypokalemia--> trending up but not resolved -P.o. potassium replacement -Recheck in a.m. Hyperbilirubinemia -Resolved and has normalized at 1.0 today -Continue IV steroids per GI -GI is following Debility -PT/OT following -Social work working on SNF placement at discharge Hypertension -Continue home metoprolol -Continue home lisinopril -Blood pressure still elevated above desired goal -Increase amlodipine to 10 mg from 5 mg -Continue as needed hydralazine Hyperlipidemia -patient is not take a statin at baseline -Recommend outpatient follow-up History of giant cell arteritis -Patient has been on prednisone previously -Currently no longer taking prednisone -Sed rate/CRP are normal History of abdominal aortic aneurysm -CTA of chest from 12/12/2022 notes ectasia of the ascending aorta at 3.9 cm -Continue blood pressure control GERD -Continue PPI via IV Protonix History of tobacco abuse -Encouraged ongoing cessation Anxiety/depression -Continue sertraline -Continue bupropion DVT prophylaxis -Start Lovenox subcu CODE STATUS -Full code Charges/Coding Visit Charges Inpatient E&M: 66854 Subs Hosp L2
[2023-02-28] MEDS: Potassium Chloride Oral Tablet 20 MEQ 60 MEQ PO (11:59)
[2023-02-28] MEDS: Metoclopramide 10 MG/2 ML Vial IV ×2 (14:42→21:21)
[2023-02-28] MEDS: Scopolamine 1mg/72hr Patch 1 PATCH TD (14:42)
--- NOTE | 2023-02-28 15:21 | CHAPLAIN ---
Type of Pastoral Visit ___ Initial Visit _x__ Follow-up Visit ___ On-call Visit ___ General Patient Visit ___ Spiritual Assessment ___ Family Conference ___ Bereavement ___ Rapid Response ___ Code Blue ___ Other (describe below) Pastoral Care Referral From _x__ Patient ___ Family ___ Nurse ___ Physician ___ Html Web Developer ___ Nail Setter ___ Other (describe below) Sacrament/Intervention _x__ Active listening ___ Anointing ___ Buddhist ___ Bereavement ___ Communion _x__ [place] exploration ___ ___ Life review _x__ Prayer ___ Reconciliation ___ Sacrament of Sick _x__ Supportive presence ___ Wedding ___ Other (describe below) Pastoral Comments patient gives updates from her last admission which is very recent; pt is more hopeful today as DR has addressed more of the issue; pt speaks of a plan for better life ahead and how to achieve that with diet and participation in druze; prayer and presence welcomed
[2023-02-28] MEDS: 0.9% Normal Saline 1,000 ML 70 ML IV (15:24)
--- NOTE | 2023-02-28 15:57 | CASEMGMT ---
Discharge Planning Updates sent to [facility] Puja Maldonado, Discharge Planning Asst.
[2023-02-28] MEDS: Acetaminophen 325 MG Tablet 650 MG PO (21:21)
[2023-03-01] VITALS (8 sets, daily range): BP systolic 120–179; BP diastolic 67–97; PULSE 64–75; RESP 18; TEMP 35.8–37.2; O2SAT 93–98; BMI 46.5
[2023-03-01] MEDS: hydrALAZINE 20 MG/ML Vial 10 MG IV (03:48)
[2023-03-01] MEDS: 0.9% Normal Saline 1,000 ML 70 ML IV (03:49)
[2023-03-01] MEDS: Metoclopramide 10 MG/2 ML Vial IV ×3 (05:22→22:35)
[2023-03-01 07:10] LABS: Anion Gap 7 (5-15); BUN 5 mg/dL (7-18); BUN/Creat Ratio 7.3 RATIO (10-20); Calcium,Total 7.4 mg/dL (8.5-10.1); Chloride 112 mmol/L (98-107); Creatinine, Serum 0.68 mg/dL (0.55-1.02); EST Glomerular Filtration Rate 91 mL/min (>60); Est Glom Filt Rate - Afr Amer 111 mL/min (>60); Estimated Creatinine Clearance 41.19 ml/min; Glucose 97 mg/dL (74-106); Potassium 3.5 mmol/L (3.5-5.1); Sodium Level 145 mmol/L (136-145)
--- NOTE | 2023-03-01 07:38 | CT_ITS ---
INDICATION: Diffuse abdominal pain, elevated LFTs EXAMINATION: CTA abdomen and pelvis - TECHNIQUE: Routine abdominal CT angiogram protocol was performed with IV contrast. MIP images provided. A radiation dose optimization technique was used for this scan. IV Contrast dosage and agent: 100 mL Isovue-370 contrast Radiation dose DLP mGy / cm. COMPARISON: 02/24/2023 FINDINGS: Lung bases: Interstitial changes in the lung bases with nonspecific pleural thickening, tiny bilateral pleural effusions with associated atelectasis. Liver: Normal. No bile ductal dilatation. Gallbladder: Not visualized, likely absent Spleen: Normal. Adrenal gland: Normal. Kidneys: Normal. No hydronephrosis or stone formation. Pancreas:Stable punctate pancreatic calcifications likely sequela from previous pancreatitis. Previously noted inflammatory stranding around the pancreas is no longer seen. Bowel gas pattern: Nonobstructive. Small bowel loops are unremarkable, there are few scattered colonic diverticula without CT evidence of acute diverticulitis. Appendix: Normal. Seen on coronal recon images 68 through 72 Free air: None. Free fluid: None. Pelvis: Pelvic organs: No mass lesion noted. Bone survey: No aggressive bony lesions. No acute fractures. Bony structures show degenerative change Adenopathy: No significant pathologic adenopathy detected. Other: None. Vascular: The abdominal aorta is ectatic without aneurysm or dissection. No suspicious periaortic fluid. No significant stenosis or occlusive disease in the celiac axis, SMA, or either renal artery. CT/CTA Abd/Pelvis W/WO Contrast IMPRESSION: Previously noted inflammatory changes around the periphery of the pancreas no longer identified suggesting resolution of previously noted pancreatitis. No acute solid organ abnormality No free intraperitoneal fluid, air, or suspicious adenopathy Ectatic aorta without aneurysm or dissection Electronically Signed: Vamshi Mcelroy MD at 8:42 EDT ,
[2023-03-01 07:45] LABS: Basophil# 0.03 X10^3/uL; Basophil% 0.4 % (0-1); Eosinophil# 0.01 X10^3/uL; Eosinophils% 0.1 % (0-5); Hematocrit 33.1 % (37-47); Hemoglobin 10.3 g/dL (12.0-15.0); Lymphocyte % 16.3 % (19-41); Mean Corp Hgb Conc 31.1 g/dL (32-36); Mean Corpuscular Volume 89.9 fL (81-99); Mean Platelet Vol. 8.9 fl (6.2-12.0); Monocyte# 0.72 X10^3/uL; Monocyte% 9.8 % (0-10); NRBC Flagged by Analyzer 0.3 % (0-5); Neutrophil # 5.02 X10^3/uL (2.7-7.7); Neutrophil % 68.5 % (47-70); Platelet Count 156 K/mm3 (150-450); RBC Distribution Width CV 15.7 % (11.6-14.6); RBC Distribution Width SD 50.4 fl (35.1-43.9); Red Blood Count 3.68 M/mm3 (4.2-5.4); White Blood Count 7.3 K/mm3 (4.4-11.0)
[2023-03-01] MEDS: Sertraline 50 MG Tablet PO (09:41)
[2023-03-01] MEDS: amLODIPine 10 MG Tablet PO (09:41)
[2023-03-01] MEDS: Enoxaparin 40 MG/0.4 ML Syringe SC ×2 (09:41→22:35)
[2023-03-01] MEDS: Metoprolol(XL)Succ 25 MG Tablet PO (09:41)
[2023-03-01] MEDS: buPROPion (XL) 150 MG TABLET.XL PO (09:42)
[2023-03-01] MEDS: Creon 24,000 unit DR Capsule 3 CAP PO ×2 (09:42→17:24)
[2023-03-01] MEDS: Methylprednisolone Sod Succ 40 MG/ML VIAL IV (09:43)
[2023-03-01] MEDS: Lisinopril 40 MG Tablet PO (09:47)
[2023-03-01] MEDS: Acetaminophen 325 MG Tablet 650 MG PO (10:02)
--- NOTE | 2023-03-01 11:16 | CASEMGMT ---
Discharge Planning [facility] updated regarding tentative weekend discharge. Requested phone/fax for report. Puja Maldonado, Discharge Planning Asst.
--- NOTE | 2023-03-01 12:34 | CASEMGMT ---
Social Work Per physician, pt is not ready for discharge today but possibly tomorrow. [facility] updated and they are able to accept when pt is medically ready. SW met with pt who continues to feel she needs care home placement. SW reviewed [facility] information and pt agreeable to d/c to [facility]. Pt does not want staff to contact her daughter but states she will notify her family. Plan: [facility], when medically ready [facility]rey
[2023-03-01 14:59] LABS: Pathologist Review Reviewed
--- NOTE | 2023-03-01 15:57 | PCM.PN.HOSP ---
Reason for Visit Reason for Visit: Abdominal pain/nausea/vomiting Subjective Subjective Rating pain at 4-5 out of 10. Is having intermittent nausea but was to able to tolerate clears yesterday without difficulty. Is willing to advance to full liquid diet and then regular diet if tolerates full's for lunch. We did discuss thus far we have not found anything organic causing this with multiple diagnostic tests. The last diagnostic test I discussed with her that we would perform was a CT of her abdomen and pelvis to rule out any mesenteric ischemia however this is doubtful. Objective Data Objective Data Vital Signs: Vital Signs Temp Pulse Resp BP Pulse Ox O2 Del Method 98.9 F 75 18 130/67 H 96 Room Air 03/01/23 14:10 03/01/23 14:10 03/01/23 14:10 03/01/23 14:10 03/01/23 14:10 03/01/23 14:10 Oxygen Delivery Method Room Air Weight: 111.8 kg Body Mass Index (BMI) 46.5 Intake & Output: Intake and Output for Last 24 Hours 02/27/23 02/28/23 03/01/23 23:59 23:59 23:59 Intake Total 2797.08 / 2797.08 2075.49 / 2075.49 1632.50 / 1632.50 Balance 2797.08 / 2797.08 2075.49 / 2075.49 1632.50 / 1632.50 Lab / Micro Data 03/01/23 07:35 03/01/23 06:45 Labs: Laboratory Results - last 24 hr 02/27/23 06:30: Miscellaneous Test 02/28/23 06:33: Diff Path Review Reviewed 03/01/23 06:45: WBC Cancelled, Corrected WBC Cancelled, RBC Cancelled, Hgb Cancelled, Hct Cancelled, MCV Cancelled, MCH Cancelled, MCHC Cancelled, RDW Std Deviation Cancelled, RDW Coeff of Janey Cancelled, Plt Count Cancelled, MPV Cancelled, Immature Gran % (Auto) Cancelled, Neut % (Auto) Cancelled, Lymph % (Auto) Cancelled, [place] % (Auto) Cancelled, Eos % (Auto) Cancelled, Baso % (Auto) Cancelled, Absolute Neuts (auto) Cancelled, Absolute Lymphs (auto) Cancelled, Total Counted Cancelled, Neutrophils % (Manual) Cancelled, Band Neutrophils % Cancelled, Lymphocytes % (Manual) Cancelled, Monocytes % (Manual) Cancelled, Eosinophils % (Manual) Cancelled, Basophils % (Manual) Cancelled, Metamyelocytes % Cancelled, Myelocytes % Cancelled, Promyelocytes % Cancelled, Blast Cells % Cancelled, Plasma Cell % (Manual) Cancelled, Other Cells % Cancelled, Nucleated RBC % Cancelled, Nucleated RBCs/100 WBC Cancelled, Differential Comment Cancelled, Diff Path Review Cancelled, Hypersegmented Neuts Cancelled, Atypical Lymphocytes Cancelled, Reactive Lymphocytes Cancelled, Smudge Cells Cancelled, Toxic Granulation Cancelled, Toxic Vacuolation Cancelled, Dohle Bodies Cancelled, Andre Rods Cancelled, Platelet Estimate Cancelled, Plt Morphology Comment Cancelled, RBC Morphology Cancelled 03/01/23 06:45: RBC Morphology Cancelled, Polychromasia Cancelled, Hypochromasia Cancelled, Poikilocytosis Cancelled, Basophilic Stippling Cancelled, Anisocytosis Cancelled, Microcytosis Cancelled, Macrocytosis Cancelled, Spherocytes Cancelled, Sickle Cells Cancelled, Target Cells Cancelled, Tear Drop Cells Cancelled, Ovalocytes Cancelled, Stomatocytes Cancelled, Perez-Dundarrach Bodies Cancelled, Kym Cells Cancelled, Bite Cells Cancelled, Crenated Cell Cancelled, Acanthocytes (Spur) Cancelled, Rouleaux Cancelled, Schistocytes Cancelled, Sodium 145, Potassium 3.5, Chloride 112 H, Carbon Dioxide 26.0, Anion Gap 7, BUN 5 L, Creatinine 0.68, Estim Creat Clear Calc 41.19, Est GFR (MDRD) Af Amer 111, Est GFR (MDRD) Non-Af 91, BUN/Creatinine Ratio 7.3 L, Glucose 97, Calcium 7.4 L 03/01/23 07:35: WBC 7.3, RBC 3.68 L, Hgb 10.3 L, Hct 33.1 L, MCV 89.9, MCH 28.0, MCHC 31.1 L, RDW Std Deviation 50.4 H, RDW Coeff of Janey 15.7 H, Plt Count 156, MPV 8.9, Immature Gran % (Auto) 4.900 H, Neut % (Auto) 68.5, Lymph % (Auto) 16.3 L, [place] % (Auto) 9.8, Eos % (Auto) 0.1, Baso % (Auto) 0.4, Absolute Neuts (auto) 5.0, Absolute Lymphs (auto) 1.20, Nucleated RBC % 0.3 Micro: Microbiology 03/01/23 00:19 Stool Enteric Bacteriology - Final Radiography Diagnostic Testing: Radiology Impression Abdomen/Pelvis CTA 03/01/23 07:38 IMPRESSION: Previously noted inflammatory changes around the periphery of the pancreas no longer identified suggesting resolution of previously noted pancreatitis. No acute solid organ abnormality No free intraperitoneal fluid, air, or suspicious adenopathy Ectatic aorta without aneurysm or dissection Electronically Signed: Vamshi Mcelroy MD at 8:42 EDT , Physical Exam Const alert, oriented x3, no apparent distress and well nourished Constitutional Narrative: Upper middle-aged, morbidly obese, white female, sitting up in a chair at the bedside, watching television, appears very comfortable at this time, nontoxic HEENT head/scalp atraumatic and moist oral mucous membranes HEENT Narrative: Edentulous, Mallampati 2 Resp normal respiratory effort, no retractions, no use of accessory muscles and clear to auscultation bilaterally Auscultation: Negative for rales, rhonchi or wheezes Cardio regular rate, regular rhythm, S1 normal heart sound, S2 normal heart sound, no murmurs, no rub, no gallops and no clicks GI normal to inspection, nondistended, normoactive bowel sounds, soft to palpation and non-tender GI Narrative: No significant tenderness noted on exam today Extremity no clubbing, cyanosis or edema Extremity Narrative: Pedal pulses are 2+ Neuro oriented x3, moves all extremities and no focal motor deficits Speech: speech normal Psych Psych Narrative: Affect is flat and mood seems depressed Assessment & Plan Assessment/Plan (1) Acute recurrent pancreatitis: (2) Diarrhea: (3) Hypokalemia: (4) Hypophosphatemia: PLAN: Plan Acute on chronic pancreatitis -Did okay with clear liquid diet yesterday will advance to full's and if does well to a regular diet this evening -EGD was unremarkable -Discontinue IV fluids -Continue as needed morphine -Continue home Creon -Has had recent MRCP that was unremarkable -Repeat CT today with contrast IV to assess for mesenteric ischemia this will also allow us to reassess her pancreas -Lipase was only mildly elevated at 79 -GI following-appreciate input -Autoimmune work-up is unremarkable thus far with still a few labs pending--> CRP is within normal limits/ESR is within normal limits/LDH is elevated Nausea/vomiting/diarrhea -C. difficile is unremarkable -Enteric panel is pending patient's had no further diarrhea -Continue as needed Zofran -Continue scopolamine patch -Continue Reglan 10 Q8 -Would like to avoid Xanax -There is some question whether or not this could be psychosomatic -GI following--> questioning gastroparesis with negative work-up thus far Hypokalemia -Resolved Hyperbilirubinemia -Resolved Debility -PT/OT following -Social work working on SNF placement at discharge Hypertension -Blood pressure still elevated above desired goal despite changes made yesterday -Continue home metoprolol -Continue home lisinopril but increase from 20 to 40 mg daily -Continue amlodipine 10 mg -Continue as needed hydralazine Hyperlipidemia -patient is not take a statin at baseline -Recommend outpatient follow-up History of giant cell arteritis -Patient has been on prednisone previously -Currently no longer taking prednisone -Sed rate/CRP are normal History of abdominal aortic aneurysm -CTA of chest from 12/12/2022 notes ectasia of the ascending aorta at 3.9 cm -Continue blood pressure control GERD -Continue PPI via IV Protonix History of tobacco abuse -Encouraged ongoing cessation Anxiety/depression -Continue sertraline -Continue bupropion DVT prophylaxis -Start Lovenox subcu CODE STATUS -Full code Charges/Coding Visit Charges Inpatient E&M: 32519 Subs Hosp L2
[2023-03-01 16:09] LABS: Albumin 3.1 g/dL (2.9-4.4); Alpha-1-Globulins 0.2 g/dL (0.0-0.4); Alpha-2-Globulins 0.5 g/dL (0.4-1.0); Angiotensin Convert Enzyme < 15 U/L (14-82); Deamidated Gliadin IgA 4 units (0-19); Deamidated Gliadin IgG 2 units (0-19); Endomysial Antibody IgA Negative (Negative); Gamma Globulin 0.3 g/dL (0.4-1.8); Gastrin, Serum 742 pg/mL (0-115); Immunoglobulin A 63 mg/dL (87-352); Immunoglobulin G 322 mg/dL (586-1602); Immunoglobulin M 49 mg/dL (26-217); PROEL- TOTAL PROTEIN 4.9 g/dL (6.0-8.5); t-Transglutaminase IgA <2 U/mL (0-3)
--- NOTE | 2023-03-01 17:22 | PN.GI_ITS ---
Subjective Subjective Patient is still complaining of abdominal pain. She is tolerating a diet but she says she is in excruciating pain. She has not been active. She has not left the room. She did have 1 small bowel movement. She had a CT scan abdomen pelvis today. Objective Data Objective Data Vital Signs: Vital Signs Temp Pulse Resp BP Pulse Ox O2 Del Method 98.9 F 75 18 130/67 H 96 Room Air 03/01/23 14:10 03/01/23 14:10 03/01/23 14:10 03/01/23 14:10 03/01/23 14:10 03/01/23 14:10 Oxygen Delivery Method Room Air Weight: 246 lb 7.629 oz Body Mass Index (BMI) 46.5 Intake & Output: Intake and Output for Last 24 Hours 02/27/23 02/28/23 03/01/23 23:59 23:59 23:59 Intake Total 2797.08 / 2797.08 2075.49 / 2075.49 1632.50 / 1632.50 Balance 2797.08 / 2797.08 2075.49 / 2075.49 1632.50 / 1632.50 Lab / Micro Data 03/01/23 07:35 03/01/23 06:45 Labs: Laboratory Results - last 24 hr 02/27/23 06:30: Total Protein (PEP) 4.9 L, Globulin 1.8 L, Angiotensin Convert Enz < 15, Gastrin 742 H, IgG 322 L, IgA 63 L, IgM 49, Immunofixation Screen Comment, Albumin (MALACHI) 3.1, Albumin/Globulin (MALACHI) 1.8 H, Teapb-9-Podoyfxeb MALACHI 0.2, Xulmy-1-Ipuyhzmyy MALACHI 0.5, Beta-Globulins (MALACHI) 0.7, Gamma Globulins (MALACHI) 0.3 L, MALACHI M-Shad , MALACHI Comments Comment, Endomysial IgA Ab Negative, Tiss Transglutamin IgG <2, Tiss Transglutamin IgA <2, Anti-Gliadin IgG Ab 2, Anti- Gliadin IgA Ab 4, Miscellaneous Test 02/28/23 06:33: Diff Path Review Reviewed 03/01/23 06:45: WBC Cancelled, Corrected WBC Cancelled, RBC Cancelled, Hgb Cancelled, Hct Cancelled, MCV Cancelled, MCH Cancelled, MCHC Cancelled, RDW Std Deviation Cancelled, RDW Coeff of Janey Cancelled, Plt Count Cancelled, MPV Cancelled, Immature Gran % (Auto) Cancelled, Neut % (Auto) Cancelled, Lymph % (Auto) Cancelled, Motley % (Auto) Cancelled, Eos % (Auto) Cancelled, Baso % (Auto) Cancelled, Absolute Neuts (auto) Cancelled, Absolute Lymphs (auto) Cancelled, Total Counted Cancelled, Neutrophils % (Manual) Cancelled, Band Neutrophils % Cancelled, Lymphocytes % (Manual) Cancelled, Monocytes % (Manual) Cancelled, Eosinophils % (Manual) Cancelled, Basophils % (Manual) Cancelled, Metamyelocytes % Cancelled, Myelocytes % Cancelled, Promyelocytes % Cancelled, Blast Cells % Cancelled, Plasma Cell % (Manual) Cancelled, Other Cells % Cancelled, Nucleated RBC % Cancelled, Nucleated RBCs/100 WBC Cancelled, Differential Comment Cancelled, Diff Path Review Cancelled, Hypersegmented Neuts Cancelled, Atypical Lymphocytes Cancelled, Reactive Lymphocytes Cancelled, Smudge Cells Cancelled, Toxic Granulation Cancelled, Toxic Vacuolation Cancelled, Dohle Bodies Cancelled, Andre Rods Cancelled, Platelet Estimate Cancelled, Plt Morphology Comment Cancelled, RBC Morphology Cancelled 03/01/23 06:45: RBC Morphology Cancelled, Polychromasia Cancelled, Hypochromasia Cancelled, Poikilocytosis Cancelled, Basophilic Stippling Cancelled, Anisocytosis Cancelled, Microcytosis Cancelled, Macrocytosis Cancelled, Spherocytes Cancelled, Sickle Cells Cancelled, Target Cells Cancelled, Tear Drop Cells Cancelled, Ovalocytes Cancelled, Stomatocytes Cancelled, Perez-Harrington Bodies Cancelled, Kym Cells Cancelled, Bite Cells Cancelled, Crenated Cell Cancelled, Acanthocytes (Spur) Cancelled, Rouleaux Cancelled, Schistocytes Cancelled, Sodium 145, Potassium 3.5, Chloride 112 H, Carbon Dioxide 26.0, Anion Gap 7, BUN 5 L, Creatinine 0.68, Estim Creat Clear Calc 41.19, Est GFR (MDRD) Af Amer 111, Est GFR (MDRD) Non-Af 91, BUN/Creatinine Ratio 7.3 L, Glucose 97, Calcium 7.4 L 03/01/23 07:35: WBC 7.3, RBC 3.68 L, Hgb 10.3 L, Hct 33.1 L, MCV 89.9, MCH 28.0, MCHC 31.1 L, RDW Std Deviation 50.4 H, RDW Coeff of Janey 15.7 H, Plt Count 156, MPV 8.9, Immature Gran % (Auto) 4.900 H, Neut % (Auto) 68.5, Lymph % (Auto) 16.3 L, Motley % (Auto) 9.8, Eos % (Auto) 0.1, Baso % (Auto) 0.4, Absolute Neuts (auto) 5.0, Absolute Lymphs (auto) 1.20, Nucleated RBC % 0.3 Micro: Microbiology 03/01/23 00:19 Stool Enteric Bacteriology - Final Radiography Diagnostic Testing: Radiology Impression Abdomen/Pelvis CTA 03/01/23 07:38 IMPRESSION: Previously noted inflammatory changes around the periphery of the pancreas no longer identified suggesting resolution of previously noted pancreatitis. No acute solid organ abnormality No free intraperitoneal fluid, air, or suspicious adenopathy Ectatic aorta without aneurysm or dissection Electronically Signed: Vamshi Mcelroy MD at 8:42 EDT Reading Location ID and State: [address] [place] [address] , Service support , Physical Exam Const alert, oriented x3, no apparent distress and well nourished HEENT head/scalp atraumatic and moist oral mucous membranes HEENT Narrative: Edentulous, Mallampati 2 Resp normal respiratory effort, no retractions, no use of accessory muscles and clear to auscultation bilaterally Auscultation: Negative for rales, rhonchi or wheezes Cardio regular rate, regular rhythm, S1 normal heart sound, S2 normal heart sound, no murmurs, no rub, no gallops and no clicks GI normal to inspection, nondistended, normoactive bowel sounds, soft to palpation and non-tender GI Narrative: No significant tenderness noted on exam today Extremity no clubbing, cyanosis or edema Extremity Narrative: Pedal pulses are 2+ Neuro oriented x3, moves all extremities and no focal motor deficits Speech: speech normal Psych Psych Narrative: Affect is flat and mood seems depressed Assessment & Plan Assessment/Plan (1) Chronic pancreatitis: QUALIFIERS: Pancreatitis type: unspecified pancreatitis type Qualified Code(s): K86.1 - Other chronic pancreatitis PLAN: The main goal of initial treatment is to alleviate symptoms and prevent complications by reducing pancreatic secretory stimuli and correction of fluid and electrolyte abnormalities. Initially, patients should be fluid resuscitated and kept nil by mouth with bowel rest when nausea, vomiting or abdominal pain are present. Supportive care continues until pain is resolved and diet restarted. The majority of patients will improve within 3?7 days of conservative management.??Hypocalcaemia and hypomagnesemia should be monitored very careful ly. She has chronic pancreatitis by imaging and by history. She will need to take at least 120 to 160,000 international units of pancreatic enzymes per day. I would avoid pain medicine is much as possible. She may benefit from an upper endoscopy to see if she has a pancreatic rest that is in area outside of the biliary tract that leads to pancreatitis. I will send off an IgG4, protein electrophoresis and start her on empiric steroids. 02/26: Her ESR and CRP are both within normal limits. I think her lipase could be coming from another place other than the pancreas. The differential diag nosis would be pancreatic divisum although the that was not clearly seen on MRCP. However due to motion artifact it was not a very good study. It also could come from a pancreatic rest differential diagnosis for hyper lipase anemia She does not meet 2 criteria for acute pancreatitis and she meets the criteria for chronic pancreatitis with the calcifications. I cannot tell if she has small duct chronic pancreatitis or large the duct chronic pancreatitis by her current imaging. Pancreatitis Diagnostic Criteria ? Has to meet 2 of 3 criteria ? Lipase >3x the upper limit of normal ? Imaging findings consistent with pancreatitis ? Mid-epigastric abdominal pain, classically radiating straight through to back Continue steroids for now as she was on them as an outpatient. Start pancreatic enzymes. Await IgG4. Check protein electrophoresis, celiac markers, CLAYTON level, ferritin, iron plus iron saturation. 03/01: Her labs show significant elevation in chromogranin A to 1600, gastrin 700. These are neuroendocrine hormones that could indicate the presence of a neuroendocrine tumor and has not seen. Her IgG 1 is low along with her IgA. That does indicate malnutrition without immunodeficiency. I would get a oncology consult. I will put in an octreotide scan. Her recent CT scan does show improvement in pancreatitis. Since her CHALINO and IgG4 is normal she would not benefit from steroids as she does not meet the criteria for autoimmune pancreatitis type I. I will start her on gabapentin 300 mg p.o. 3 times daily for her pain and try to avoid narcotics as much as possible as she is high risk for narcotic bowel syndrome. Charges/Coding Visit Charges Inpatient E&M: 66430 Subs Hosp L3
[2023-03-01] MEDS: LORazepam 0.5 MG Tablet PO ×2 (17:51→22:34)
[2023-03-02 03:26] VITALS: BMI 46.5
[2023-03-02] MEDS: LORazepam 0.5 MG Tablet PO ×2 (06:35→14:44)
[2023-03-02] MEDS: Metoclopramide 10 MG/2 ML Vial IV ×2 (06:35→14:44)
[2023-03-02 06:45] VITALS: BP 145/75; PULSE 68; RESP 18; TEMP 36.6; O2SAT 95
[2023-03-02 07:28] LABS: Anion Gap 4 (5-15); BUN 10 mg/dL (7-18); BUN/Creat Ratio 12.1 RATIO (10-20); Chloride 110 mmol/L (98-107); Creatinine, Serum 0.83 mg/dL (0.55-1.02); EST Glomerular Filtration Rate 73 mL/min (>60); Est Glom Filt Rate - Afr Amer 89 mL/min (>60); Estimated Creatinine Clearance 49.63 ml/min; Glucose 91 mg/dL (74-106); Potassium 3.5 mmol/L (3.5-5.1); Sodium Level 142 mmol/L (136-145); Thyroid Stim Hormone (TSH) 1.55 uIU/mL (0.358-3.74)
--- NOTE | 2023-03-02 08:56 | CT_ITS ---
HISTORY: Chromogranin A elevation. TECHNIQUE: Helically acquired images were obtained of the chest without contrast. A radiation dose optimization technique was used for this scan. 857 images. COMPARISON: CTA 12/12/2022. FINDINGS: LARGE AIRWAYS: Patent. LUNGS: Calcified granulomas in the right upper and lower lobes again seen. Minimal atelectasis or scarring in the lung bases. No suspicious nodule, mass, or acute alveolar consolidation. PLEURA: No pneumothorax or significant pleural effusion. HEART/PERICARDIUM: Heart within normal limits in size with minimal coronary artery calcification. No pericardial effusion. VESSELS: Stable 3.9 cm ectasia of the ascending aorta. Tortuous aorta. Mild atherosclerosis. MEDIASTINUM/ROSITA: No pathologically enlarged adenopathy. UPPER ABDOMEN: Calcified hepatic granulomas. BONES: Mild degenerative change without suspicious osseous lesion. CT/Chest without Contrast IMPRESSION: No evidence for acute abnormality in the chest. Chronic granulomatous disease of the chest and abdomen. No suspicious pulmonary mass or pathologically enlarged lymphadenopathy in the chest. Electronically Signed: Tomeka Hager MD at 11:09 EDT ,
[2023-03-02 09:50] VITALS: BP 141/78; PULSE 75; RESP 18; TEMP 37; O2SAT 96
[2023-03-02] MEDS: Enoxaparin 40 MG/0.4 ML Syringe SC (10:00)
[2023-03-02] MEDS: 0.9% Saline Lock 10 ML Syringe IV (10:00)
[2023-03-02] MEDS: Creon 24,000 unit DR Capsule 3 CAP PO ×2 (10:00→14:44)
[2023-03-02 10:01] VITALS: PULSE 75
[2023-03-02] MEDS: amLODIPine 10 MG Tablet PO (10:01)
[2023-03-02] MEDS: Metoprolol(XL)Succ 25 MG Tablet PO (10:01)
[2023-03-02] MEDS: buPROPion (XL) 150 MG TABLET.XL PO (10:01)
[2023-03-02] MEDS: Lisinopril 40 MG Tablet PO (10:01)
[2023-03-02] MEDS: Methylprednisolone Sod Succ 40 MG/ML VIAL IV (10:01)
[2023-03-02] MEDS: Sertraline 50 MG Tablet PO (10:02)
[2023-03-02 11:02] VITALS: O2SAT 96
--- NOTE | 2023-03-02 12:00 | PN.GI_ITS ---
Subjective Subjective Patient says that her pain is a lot better. She is tolerating a diet. Objective Data Objective Data Vital Signs: Vital Signs Temp Pulse Resp BP Pulse Ox O2 Del Method 98.6 F 75 18 141/78 H 96 Room Air 03/02/23 09:50 03/02/23 10:01 03/02/23 09:50 03/02/23 09:50 03/02/23 11:02 03/02/23 11:02 Oxygen Delivery Method Room Air Weight: 246 lb 7.629 oz Body Mass Index (BMI) 46.5 Intake & Output: Intake and Output for Last 24 Hours 02/28/23 03/01/23 03/02/23 23:59 23:59 23:59 Intake Total 2075.49 / 2075.49 2222.00 / 2222.00 500 / 500 Balance 2075.49 / 2075.49 2222.00 / 2222.00 500 / 500 Lab / Micro Data 03/01/23 07:35 03/02/23 06:28 Labs: Laboratory Results - last 24 hr 02/27/23 06:30: Total Protein (PEP) 4.9 L, Globulin 1.8 L, Angiotensin Convert Enz < 15, Gastrin 742 H, IgG 322 L, IgA 63 L, IgM 49, Immunofixation Screen Comment, Albumin (MALACHI) 3.1, Albumin/Globulin (MALACHI) 1.8 H, Pgkby-1-Xtslmxqes MALACHI 0.2, Oiiog-5-Nuogxjqii MALACHI 0.5, Beta-Globulins (MALACHI) 0.7, Gamma Globulins (MALACHI) 0.3 L, MALACHI M-Shad , MALACHI Comments Comment, Endomysial IgA Ab Negative, Tiss Transglutamin IgG <2, Tiss Transglutamin IgA <2, Anti-Gliadin IgG Ab 2, Anti- Gliadin IgA Ab 4 03/02/23 06:28: Sodium 142, Potassium 3.5, Chloride 110 H, Carbon Dioxide 28.0, Anion Gap 4 L, BUN 10, Creatinine 0.83, Estim Creat Clear Calc 49.63, Est GFR (M DRD) Af Amer 89, Est GFR (MDRD) Non-Af 73, BUN/Creatinine Ratio 12.1, Glucose 91, Calcium 8.0 L, TSH 1.55 Micro: Microbiology 03/02/23 14:40 Nasal Secretion SARS-CoV-2 Antigen (Rapid) - Final 03/01/23 00:19 Stool Enteric Bacteriology - Final Radiography Diagnostic Testing: Radiology Impression Chest CT 03/02/23 08:56 IMPRESSION: No evidence for acute abnormality in the chest. Chronic granulomatous disease of the chest and abdomen. No suspicious pulmonary mass or pathologically enlarged lymphadenopathy in the chest. Electronically Signed: Tomeka Hager MD at 11:09 EDT , Physical Exam Const alert, oriented x3, no apparent distress and well nourished General Appearance: cooperative, comfortable, well kempt and well developed Orientation / Consciousness: awake, oriented to person, oriented to place and oriented to time Exam Limitations: no limitations Nutritional Appearance: morbidly obese HEENT normocephalic, head/scalp atraumatic, hearing grossly normal bilaterally and moist oral mucous membranes HEENT Narrative: Mallampati 2-3, no thrush Eyes PERRL, EOMs intact bilaterally and conjunctivae normal Eyes Narrative: No scleral icterus Neck no lymphadenopathy and supple Neck Narrative: Achy midline, no thyroid enlargement, neck is short and thick Resp normal respiratory effort, no retractions, no use of accessory muscles and clear to auscultation bilaterally Auscultation: Negative for rales, rhonchi or wheezes Cardio regular rate, regular rhythm, S1 normal heart sound, S2 normal heart sound, no murmurs, no rub, no gallops and no clicks GI normal to inspection, nondistended, normoactive bowel sounds, soft to palpation and non-tender GI Narrative: No significant tenderness noted on exam today Extremity no clubbing, cyanosis or edema Extremity Narrative: Pedal pulses are 2+ Skin no rashes or lesions noted, no wounds, skin turgor normal and no jaundice Neuro oriented x3, CN's II-XII intact bilaterally, moves all extremities and no focal motor deficits Neuro Narrative: Is able to transition herself from lying to sitting up on the edge of the bed independently Speech: speech normal Psych Psych Narrative: Affect is flat and mood seems depressed Assessment & Plan Assessment/Plan (1) Chronic pancreatitis: QUALIFIERS: Pancreatitis type: unspecified pancreatitis type Qualified Code(s): K86.1 - Other chronic pancreatitis PLAN: The main goal of initial treatment is to alleviate symptoms and prevent complications by reducing pancreatic secretory stimuli and correction of fluid and electrolyte abnormalities. Initially, patients should be fluid resuscitated and kept nil by mouth with bowel rest when nausea, vomiting or abdominal pain are present. Supportive care continues until pain is resolved and diet restarted. The majority of patients will improve within 3?7 days of conservative management.??Hypocalcaemia and hypomagnesemia should be monitored very carefully. She has chronic pancreatitis by imaging and by history. She will need to take at least 120 to 160,000 international units of pancreatic enzymes per day. I would avoid pain medicine is much as possible. She may benefit from an upper endoscopy to see if she has a pancreatic rest that is in area outside of the biliary tract that leads to pancreatitis. I will send off an IgG4, protein electrophoresis and start her on empiric steroids. 02/26: Her ESR and CRP are both within normal limits. I think her lipase could be coming from another place other than the pancreas. The differential diagnosis would be pancreatic divisum although the that was not clearly seen on MRCP. However due to motion artifact it was not a very good study. It also could come from a pancreatic rest differential diagnosis for hyper lipase anemia She does not meet 2 criteria for acute pancreatitis and she meets the criteria for chronic pancreatitis with the calcifications. I cannot tell if she has small duct chronic pancreatitis or large the duct chronic pancreatitis by her current imaging. Pancreatitis Diagnostic Criteria ? Has to meet 2 of 3 criteria ? Lipase >3x the upper limit of normal ? Imaging findings consistent with pancreatitis ? Mid-epigastric abdominal pain, classically radiating straight through to back Continue steroids for now as she was on them as an outpatient. Start pancreatic enzymes. Await IgG4. Check protein electrophoresis, celiac markers, CLAYTON level, ferritin, iron plus iron saturation. 03/01: Her labs show significant elevation in chromogranin A to 1600, gastrin 700. These are neuroendocrine hormones that could indicate the presence of a neuroendocrine tumor and has not seen. Her IgG 1 is low along with her IgA. That does indicate malnutrition without immunodeficiency. I would get a oncology consult. I will put in an octreotide scan. Her recent CT scan does show improvement in pancreatitis. Since her CHALINO and IgG4 is normal she would not benefit from steroids as she does not meet the criteria for autoimmune pancreatitis type I. I will start her on gabapentin 300 mg p.o. 3 times daily for her pain and try to avoid narcotics as much as possible as she is high risk for narcotic bowel syndrome. 03/02: Patient is doing well with the changes in her medicines. The rest of the work-up can be done as an outpatient. She can be DC from GI standpoint. Charges/Coding Visit Charges Inpatient E&M: 88593 Subs Hosp L3
--- NOTE | 2023-03-02 13:02 | CASEMGMT ---
Social Work Pt's nurse called regarding patient d/c and testing ordered. Pt had Octrescan ordered for Saturday and is ready for d/c to [facility]. Nursing inquired if [facility] will be able to transport patient for this scan on Saturday. SW called [facility] to confirm that patient could have multi-day transport for this as outpatient status. [facility] reports patient is able to be transported for testing as needed. Pt's nurse notified. Shawna Gunderson [employer], [employer]UTION [employer]IST
--- NOTE | 2023-03-02 14:20 | PCM.DC.SUM ---
Providers Date of Admission: 02/24/23 Date of Discharge: 03/02/23 Primary Care Physician: Dr. Mauro Hastings MD Consultations 02/25/23 00:39 Consult: Gastroenterology Routine Consulting Provider: [facility] Reason for Consult: Recurrent abd pain, Chronic pancreatitis EMERGENT Consult: No MD Notified: Yes Date Notified: 02/24/23 Time Notified: 21:22 Method of Notification: ED Physician Initiated Reason For Visit: INTRACTABLE N/V/ABD PAIN, CHRONIC PANCREATITIS Diagnosis Discharge Diagnosis (1) Chronic pancreatitis: Status: Chronic Code(s): K86.1 - Other chronic pancreatitis Qualifiers: Pancreatitis type: unspecified pancreatitis type Qualified Code(s): K86.1 - Other chronic pancreatitis Medications at Discharge Home Medications calcium carbonate 600 mg-vitamin D3 10 mcg (400 unit) tablet 1 tab PO DAILY SUPPLEMENT 10/16/21 metoprolol succinate 25 mg tablet,extended release 24 hr 25 mg PO DAILY BLOOD PRESSURE #90 tabs 01/08/23 bupropion HCl 150 mg 24 hr tablet, extended release 150 mg PO DAILY DEPRESSION 02/04/23 ergocalciferol (vitamin D2) 1,250 mcg (50,000 unit) capsule 1,250 mcg PO TH 02/04/23 nystatin 100,000 unit/gram topical cream 1 applic topical BID PRN ANTIFUNGAL 02/04/23 sertraline 50 mg tablet 50 mg PO DAILY DEPRESSION 02/04/23 tocilizumab 162 mg/0.9 mL subcutaneous pen injector (Actemra ACTPen) 162 mg subcut TU RHEUMATOID ARTHRITIS 02/04/23 potassium chloride 20 mEq tablet,extended release 20 meq PO DAILY SUPPLEMENT 7 days #7 tabs 02/11/23 [id number] 36,000-114,000-180,000 unit capsule,delay rel (Creon) 2 cap PO TID 30 days #180 caps 02/23/23 omeprazole 20 mg capsule,delayed release 40 mg (2 x 20 mg) PO DAILY ACID REFLUX 30 days #0 caps 02/23/23 amlodipine 10 mg tablet 10 mg PO DAILY #0 tabs 03/02/23 lorazepam 0.5 mg tablet 0.5 mg PO Q8 #3 tabs 03/02/23 metoclopramide HCl 5 mg tablet (Reglan) 5 mg PO Q8 #1 TAB 03/02/23 oxycodone 5 mg tablet 5 mg PO Q4H PRN PRN Pain Score 4-10 1 day #6 tabs 03/02/23 scopolamine base 1 mg over 3 days transdermal patch 1 patch transdermal Q3D #0 ea 03/02/23 Hospital Course Procedures - (CT chest/CT abdomen pelvis/CTA abdomen and pelvis) Summary of Care Provided Minutes Spent on Discharge: 41 Hospital Course: Ms. Schwartz is a 67-year-old morbidly obese white female who presented to the emergency department at [facility] on 02/24/2023 with recurrent nausea, vomiting, and abdominal pain. She has had 2 recent hospitalizations here for the same. 1 was at the end of January at which time she was discharged on 02/11/2023 and most recently from 02/22/2023 through 02/23/2023. She has a known history of chronic pancreatitis and was discharged with Creon on the . She presented on the with recurrent nausea, emesis, and abdominal pain that was predominantly in the epigastric location and notes radiation around bilateral upper quadrants to her back. She indicated she was unable to maintain appropriate hydration due to her pain and stated that she never completely resolved her symptoms when discharged on the but worsened since discharge which led to her returning to the emergency department. She reports recurrent loose stools and diarrhea however had no diarrhea during her previous admission. She reported the pain is cramping in nature with occasional sharp pain in the epigastric region and waxes and wanes. She felt unable to care for herself at home due to lightheadedness and weakness. Vital signs were unremarkable on presentation. Her CBC was unremarkable. Her total bili was slightly elevated at 1.8 and serum creatinine was mildly elevated at 1.37. CT of the abdomen pelvis was performed and showed stranding about the pancreas that was concerning for pancreatitis and uncomplicated acute interstitial pancreatitis was noted on the final read. She was made n.p.o., placed on IV fluids and given antiemetics and pain medication. Gastroenterology was consulted and ordered autoimmune work-up along with LDH, CRP, ESR, gastrin level and chromogranin a level. She felt somewhat better with the above treatment and clear liquids were started. She tolerated them well for about 18 hours and then developed worsening abdominal pain, nausea and vomiting. Given her worsening of symptoms an EGD was performed on 02/27/2023 and demonstrated a normal esophagus, medium size helical hernia, patchy mild erythematous mucosa without bleeding in the cardia that were biopsied, and patchy mild erythematous areas in the mucosa in the duodenal bulb that were biopsied as well. It was recommended she stay on her home Protonix and resume an oral diet. GI was concerned that maybe she have gastroparesis and we started Reglan. She was already on scopolamine. She did not get significant relief from Reglan so Ativan was started by GI 0.53 times daily. Her abdominal pain, nausea, and vomiting significantly improved after the initiation of Ativan and she was able to tolerate a full liquid diet and this was advanced to a regular diet which she tolerated well. Progressed and level came back was noted to be elevated however not significantly elevated for someone who is on a PPI. Her chromogranin A came back extremely elevated at 1638. I discussed this with GI and they were concerned she could have a neuroendocrine tumor and an octreotide scan was ordered. We also get a CT of the chest to rule out any masses or concerning findings that could explain the elevated chromogranin level. CT was unremarkable. The octreotide scan could not be set up until next week and it is a 3-day scan. The medication for the scan need to be ordered and will likely not be until Saturday. With the patient tolerating a regular diet without difficulty we felt she was stable for discharge. See previous discharge summaries and lab work as the patient has had extensive work-up for this issue as she has had multiple admissions including an MRCP which was unremarkable. Case was discussed with GI and he felt she could obtain the octreotide scan as an outpatient and outpatient order was written. We discussed the case with the nursing facility as physical and Occupational Therapy recommended ongoing care at discharge. They indicated they would be able to get her to the hospital for her scan. Her blood pressure was markedly elevated throughout her stay we did titrate medications including increasing her lisinopril from 20 mg to 40 mg daily. It does not sound like she was taking her lisinopril at home. We also added amlodipine 10 mg daily. Her blood pressures were much improved at the time of discharge. She was able to be discharged to the nursing facility in stable condition on 03/02/2023 tolerating a regular diet. We did continue the Reglan 5 g 3 times daily and Ativan 0.5 3 times daily. I have recommended that the Ativan be continued for no longer than 2 weeks and that at that time wean the Ativan off. She is to follow-up with Dr. Massey in the next month for biopsy results and results of the octreotide scan. I recommend that she follow-up with her primary care physician within the next month or 1 to 2 weeks after discharge from the skilled facility. Discharge diagnoses: Acute on chronic pancreatitis-acute resolved Nausea and vomiting-resolved Diarrhea-resolved Abdominal pain-improved Hypokalemia-resolved Hyperbilirubinemia-resolved Chromogranin A elevation GERD Debility Hypertension Hyperlipidemia History of giant cell arteritis History of abdominal aortic aneurysm GERD History of tobacco abuse Anxiety Depression Physical Exam Const alert, oriented x3, no apparent distress and well nourished Constitutional Narrative: Upper middle-aged, morbidly obese, white female, sitting up in bed, watching television and eating a regular diet, appears very comfortable at this time, nontoxic, nursing at bedside General Appearance: cooperative, comfortable, well kempt and well developed Orientation / Consciousness: awake, oriented to person, oriented to place and oriented to time Exam Limitations: no limitations Nutritional Appearance: morbidly obese HEENT normocephalic, head/scalp atraumatic, hearing grossly normal bilaterally and moist oral mucous membranes HEENT Narrative: Mallampati 2-3, no thrush Eyes PERRL, EOMs intact bilaterally and conjunctivae normal Eyes Narrative: No scleral icterus Neck no lymphadenopathy and supple Neck Narrative: Achy midline, no thyroid enlargement, neck is short and thick Resp normal respiratory effort, no retractions, no use of accessory muscles and clear to auscultation bilaterally Auscultation: Negative for rales, rhonchi or wheezes Cardio regular rate, regular rhythm, S1 normal heart sound, S2 normal heart sound, no murmurs, no rub, no gallops and no clicks GI normal to inspection, nondistended, normoactive bowel sounds, soft to palpation and non-tender GI Narrative: No significant tenderness noted on exam today Extremity no clubbing, cyanosis or edema Extremity Narrative: Pedal pulses are 2+ Skin no rashes or lesions noted, no wounds, skin turgor normal and no jaundice Neuro oriented x3, CN's II-XII intact bilaterally, moves all extremities and no focal motor deficits Neuro Narrative: Is able to transition herself from lying to sitting up on the edge of the bed independently Speech: speech normal Psych Psych Narrative: Affect is flat and mood seems depressed Weight / BMI Weight Weight: 111.8 kg Body Mass Index (BMI) 46.5 ABG / Lab / Microbiology Data 03/01/23 07:35 03/02/23 06:28 Laboratory: Laboratory Results - last 24 hr 02/27/23 06:30: Total Protein (PEP) 4.9 L, Globulin 1.8 L, Angiotensin Convert Enz < 15, Gastrin 742 H, IgG 322 L, IgA 63 L, IgM 49, Immunofixation Screen Comment, Albumin (MALACHI) 3.1, Albumin/Globulin (MALACHI) 1.8 H, [id number]-[id number] MALACHI 0.2, Nnlkn-1-[id number] MALACHI 0.5, Beta-Globulins (MALACHI) 0.7, Gamma Globulins (MALACHI) 0.3 L, MALACHI M-Shad , MALACHI Comments Comment, Endomysial IgA Ab Negative, Tiss Transglutamin IgG <2, Tiss Transglutamin IgA <2, Anti-Gliadin IgG Ab 2, Anti-Gliadin IgA Ab 4 02/28/23 06:33: Diff Path Review Reviewed 03/02/23 06:28: Sodium 142, Potassium 3.5, Chloride 110 H, Carbon Dioxide 28.0, Anion Gap 4 L, BUN 10, Creatinine 0.83, Estim Creat Clear Calc 49.63, Est GFR (MDRD) Af Amer 89, Est GFR (MDRD) Non-Af 73, BUN/Creatinine Ratio 12.1, Glucose 91, Calcium 8.0 L, TSH 1.55 Microbiology: Microbiology 03/01/23 00:19 Stool Enteric Bacteriology - Final Radiography Diagnostic Testing: Radiology Impression Chest CT 03/02/23 08:56 IMPRESSION: No evidence for acute abnormality in the chest. Chronic granulomatous disease of the chest and abdomen. No suspicious pulmonary mass or pathologically enlarged lymphadenopathy in the chest. Electronically Signed: Tomeka Hager MD at 11:09 EDT , Meaningful Use Info Meaningful Use Diagnoses (Choose all that apply): None applicable Discharge Plan Admission Admit Date/Time: 02/24/23 20:43 Primary Reason for Your Visit: Abdominal pain/nausea/vomiting Attending Provider: Anny Leach Primary Care Provider: Mauro Hastings Consulting Providers: Araceli Branham Instructions Additional Instructions / Restrictions: 1. Octreotide scan is scheduled for next week. Likely on Saturday in the nursing facility indicated that they would transport you for this testing. Discharge Orders/Prescriptions Prescriptions: New lorazepam 0.5 mg Tablet 0.5 mg PO Q8 Qty: 3 0RF Rx Instructions: would recommend using only for 2 week max then taper off amlodipine 10 mg Tablet 10 mg PO DAILY Qty: 0 0RF scopolamine base 1 mg over 3 days Patch 3 Day 1 patch transdermal Q3D Qty: 0 0RF oxycodone 5 mg Tablet 5 mg PO Q4H PRN PRN (Reason: Pain Score 4-10) 1 Days Qty: 6 0RF metoclopramide HCl [Reglan] 5 mg tablet 5 mg PO Q8 Qty: 1 0RF Continued calcium carbonate-vitamin D3 600 mg-10 mcg (400 unit) tablet 1 tab PO DAILY sertraline 50 mg tablet 50 mg PO DAILY bupropion HCl 150 mg tablet extended release 24 hr 150 mg PO DAILY Actemra ACTPen 162 mg/0.9 mL pen injector 162 mg SUBCUT Patient Comments: PT STATES THEY HAD THEIR FIRST INJECTION THIS PREVIOUS SATURDAY (02-19-23) nystatin 100,000 unit/gram Cream 1 applic TOPICAL BID PRN (Reason: ANTIFUNGAL) ergocalciferol (vitamin D2) 1,250 mcg (50,000 unit) Capsule 1,250 mcg PO TH potassium chloride 20 mEq tablet extended release 20 meq PO DAILY 7 Days Qty: 7 0RF Creon 36,000-114,000- 180,000 unit capsule,delayed release(DR/EC) 2 cap PO TID 30 Days Qty: 180 2RF Patient Comments: hasn't filled from pharmacy Rx Instructions: administer with meals and/or snacks omeprazole 20 MG capsule 40 mg PO DAILY 30 Days Qty: 0 0RF metoprolol succinate 25 mg tablet extended release 24 hr 25 mg PO DAILY Qty: 90 3RF Discontinued lisinopril 10 mg tablet 20 mg PO DAILY Hold Instructions: Hold it Patient Comments: PER RX INSTRUCTIONS, TAKE TWO TABLETS (20MG) BY MOUTH ONCE DAILY IN THE MORNING AND ONE TABLET (10MG) AT BEDTIME prednisone 5 mg tablet See Taper PO DAILY Taper: Prednisone Taper 40 mg DAILY for 7 Days 35 mg DAILY for 7 Days 30 mg DAILY for 7 Days 25 mg DAILY for 7 Days 20 mg DAILY for 7 Days Rx Instructions: PT IS ON DAY 5 OF THIS TAPERED PREDNISONE PRESCRIPTION. THE PT STILL NEEDS TO TAKE THEIR DOSE FOR DAY 5 lisinopril 10 mg Tablet 10 mg PO QHS Hold Instructions: on hold Patient Comments: PER RX INSTRUCTIONS, TAKE TWO TABLETS (20MG) BY MOUTH ONCE DAILY IN THE MORNING AND ONE TABLET (10MG) AT BEDTIME Referrals / Follow Up: Milan Massey DO [Med Staff - Active Staff] - Within 1 Month Mauro Hastings MD [Primary Care Provider] - Within 1 Month Disposition Disposition (needs filled in before D/C Order can be placed): [facility] Charges/Coding Visit Charges Inpatient E&M: 72201 SNF Disch >30 Min
--- NOTE | 2023-03-02 16:04 | NURSING ---
Patient is to have an Octreotide scan as an outpatient on Saturday at 8AM per Salvador, from Nuclear Medicine. NATALIA Matos was in touch with [facility] transportation and they state they are able to provide transportation for this three day testing. Salvador reports that the order that is in the computer would be sufficient for the testing on Saturday. He also states that there have been times when the medication needed for the scan is not available. He was given two phone numbers for [facility] that could be used to notify [facility] should the medication be unavailable ([phone] and [phone]). Yeimy, nurse at [facility] and patient were both made aware of the same information.
[2023-03-02 16:10] VITALS: BP 142/88; PULSE 81; RESP 18; TEMP 37.1; O2SAT 93
== END 2023-03-02 17:16 | disposition skilled nursing facility (03) | DRG 439 ==
LOC: ED 20:39 → MS3 21:07
PROVIDERS: Internal Medicine Gastroenterology; Admitting Provider Family Medicine; Emergency Provider Student in an Organized Health Care Education/Training Program; PCP Family Medicine; Visit Provider Internal Medicine
PROC: 0DJ08ZZ Inspection of Upper Intestinal Tract, Via Natural or Artificial Opening Endoscopic (ICD-10-PCS; CPT 43235; principal; 2023-02-27 13:25)
DX: K85.80 Other acute pancreatitis without necrosis or infection (principal); N17.9 Acute kidney failure, unspecified; Z68.42 Body mass index [BMI] 45.0-49.9, adult; E83.39 Other disorders of phosphorus metabolism; E66.01 Morbid (severe) obesity due to excess calories; M31.6 Other giant cell arteritis; K86.1 Other chronic pancreatitis; E78.00 Pure hypercholesterolemia, unspecified; F32.A Depression, unspecified; K21.9 Gastro-esophageal reflux disease without esophagitis; I10 Essential (primary) hypertension; E86.0 Dehydration; R19.7 Diarrhea, unspecified; E87.6 Hypokalemia; F41.9 Anxiety disorder, unspecified; E80.6 Other disorders of bilirubin metabolism; E83.42 Hypomagnesemia; K31.84 Gastroparesis; G89.4 Chronic pain syndrome; Z79.52 Long term (current) use of systemic steroids; Z87.891 Personal history of nicotine dependence
CPT/HCPCS: 36415; 71250; 74174; 74178; 80048; 80053; 80076; 82077; 82164; 82728; 82784; 82941; 83516; 83540; 83550; 83615; 83690; 83735; 84100; 84165; 84443; 84484; 85025; 85652; 86140; 86255; 86334; 87506; 87811; 88305; 88342; 93005; 97110; 97162; 97166; 97530; 97535; 97802; 99285; J7030; J7050; Q9967; A4216; J2405

== ENCOUNTER → 2023-03-05 | Outpatient (CLI) | payer MEDICARE, MEDICAID, SELFPAY ==
--- NOTE | 2023-03-05 07:53 | NM_ITS ---
CLINICAL: 67-year-old female with suspected neuroendocrine tumor, chronic pancreatitis. OCTREOTIDE-SOMATOSTATIN RECEPTOR SCINTIGRAPHY COMPARISON: CT of the chest 03/02/2023, CT of the abdomen pelvis report 03/01/2023 FINDINGS: Following the intravenous administration of 7.1 mCi of In 111 Octreotide, whole body, spot planar projections and emission computed tomographic reconstructions of the abdomen and pelvis (SPECT-CT) obtained at 4, 24 and 48 hours post radiopharmaceutical administration reveal: 1. Physiologic tracer distribution is noted in the hepatic and splenic parenchyma, bilateral renal units and urinary bladder at 4 hours post tracer injection. 2. 24 and 48 hour acquisitions demonstrate redefined physiologic uptake noted in the hepatic and splenic parenchyma, bilateral renal units, urinary bladder and visualized intestinal tract. Uptake is demonstrated in the right hemithorax at 24 hours post tracer injection not seen on the 4 and 48 hour acquisitions. NM/Tumor Localization SPECT IMPRESSION: 1. NEGATIVE In-111 OCTREOTIDE SOMATOSTATIN RECEPTOR SCINTIGRAPHY 2. No scintigraphic abnormalities are identified on sequential image acquisition. The uptake defined in the right hemithorax at 24 hours post tracer injection as no definitive anatomic correlate, is of uncertain etiology and likely of limited clinical significance. Electronically Signed: Terrence Kim, at 10:02 EDT ,
== END | disposition home or self-care (01) ==
LOC: NM 07:53
PROVIDERS: PCP Family Medicine; Referring Provider Internal Medicine Gastroenterology; Visit Provider Internal Medicine Gastroenterology
DX: K85.90 Acute pancreatitis without necrosis or infection, unspecified (principal)
CPT/HCPCS: 78803; A9572

== ENCOUNTER → 2023-04-16 | Outpatient (REF) | payer MEDICARE, MEDICAID, SELFPAY ==
[2023-04-16 07:00] LABS: Absolute Lymphocyte Count 1.65 X10^3/uL (0.83-4.51); Absolute Neutrophil Count 3.4 X10^3/uL (2.0-7.7); Basophil# 0.02 X10^3/uL; Basophil% 0.3 % (0-1); Eosinophil# 0.08 X10^3/uL; Eosinophils% 1.3 % (0-5); Hematocrit 31.6 % (37-47); Hemoglobin 9.9 g/dL (12.0-15.0); Lymphocyte # 1.65 X10^3/ul (0.83-4.51); Lymphocyte % 27.6 % (19-41); Mean Corp Hgb Conc 31.3 g/dL (32-36); Mean Corpuscular Volume 92.7 fL (81-99); Mean Platelet Vol. 9.3 fl (6.2-12.0); Monocyte# 0.81 X10^3/uL; Monocyte% 13.6 % (0-10); NRBC Flagged by Analyzer 0 % (0-5); Neutrophil # 3.35 X10^3/uL (2.7-7.7); Neutrophil % 56.2 % (47-70); Platelet Count 227 K/mm3 (150-450); RBC Distribution Width SD 50.3 fl (35.1-43.9); Red Blood Count 3.41 M/mm3 (4.2-5.4)
[2023-04-16 07:15] LABS: ALB/GLOB Ratio 1.4 RATIO (0.9-2.4); AST(SGOT) 14 U/L (15-37); Alanine Aminotransfer ALT/SGPT 20 U/L (13-56); Albumin, Serum 3.4 g/dL (3.2-5.0); Alkaline Phosphatase 46 U/L (45-117); Anion Gap 7 (5-15); BUN 30 mg/dL (7-18); Calcium,Total 8.6 mg/dL (8.5-10.1); Chloride 110 mmol/L (98-107); Creatinine, Serum 0.94 mg/dL (0.55-1.02); EST Glomerular Filtration Rate 63 mL/min (>60); Est Glom Filt Rate - Afr Amer 77 mL/min (>60); Globulin 2.5 g/dL (2.2-4.2); Glucose 85 mg/dL (74-106); Potassium 3.3 mmol/L (3.5-5.1); Protein, Total 5.9 g/dL (6.4-8.2); Sodium Level 141 mmol/L (136-145)
== END ==
LOC: OLS.WHLEAS 05:00
PROVIDERS: PCP Family Medicine; Visit Provider Internal Medicine
DX: D50.9 Iron deficiency anemia, unspecified (principal)
CPT/HCPCS: 36415; 80053; 85025

== ENCOUNTER → 2023-04-22 | Outpatient (REF) | payer MEDICARE, MEDICAID, SELFPAY ==
[2023-04-22 08:25] LABS: CRP < 2.90 mg/L (0.0-3.0)
[2023-04-22 08:38] LABS: Erythrocyte Sedimentation Rate 1 mm/hr (0-30)
== END ==
LOC: OLS.WHLEAS 04:00
PROVIDERS: PCP Family Medicine; Referring Provider Internal Medicine; Visit Provider Internal Medicine
DX: M31.6 Other giant cell arteritis (principal); K85.90 Acute pancreatitis without necrosis or infection, unspecified; N17.9 Acute kidney failure, unspecified
CPT/HCPCS: 36415; 85652; 86140

== ENCOUNTER → 2023-04-23 | Outpatient (REF) | payer MEDICARE, MEDICAID, SELFPAY ==
[2023-04-23 08:29] LABS: Absolute Lymphocyte Count 2.57 X10^3/uL (0.83-4.51); Absolute Neutrophil Count 1.8 X10^3/uL (2.0-7.7); Basophil# 0.03 X10^3/uL; Basophil% 0.6 % (0-1); Eosinophil# 0.16 X10^3/uL; Eosinophils% 3.1 % (0-5); Hematocrit 32.9 % (37-47); Hemoglobin 10.3 g/dL (12.0-15.0); Lymphocyte # 2.57 X10^3/ul (0.83-4.51); Lymphocyte % 49.4 % (19-41); Mean Corp Hgb Conc 31.3 g/dL (32-36); Mean Corpuscular Hgb 28.9 pg (27.0-32.0); Mean Corpuscular Volume 92.2 fL (81-99); Mean Platelet Vol. 9.1 fl (6.2-12.0); Monocyte# 0.66 X10^3/uL; Monocyte% 12.7 % (0-10); NRBC Flagged by Analyzer 0 % (0-5); Neutrophil # 1.75 X10^3/uL (2.7-7.7); Neutrophil % 33.6 % (47-70); Platelet Count 265 K/mm3 (150-450); RBC Distribution Width CV 14.5 % (11.6-14.6); RBC Distribution Width SD 48.9 fl (35.1-43.9); Red Blood Count 3.57 M/mm3 (4.2-5.4); White Blood Count 5.2 K/mm3 (4.4-11.0)
[2023-04-23 08:42] LABS: ALB/GLOB Ratio 1.5 RATIO (0.9-2.4); AST(SGOT) 19 U/L (15-37); Alanine Aminotransfer ALT/SGPT 27 U/L (13-56); Albumin, Serum 3.7 g/dL (3.2-5.0); Alkaline Phosphatase 42 U/L (45-117); Anion Gap 6 (5-15); BUN 19 mg/dL (7-18); BUN/Creat Ratio 18.6 RATIO (10-20); Chloride 112 mmol/L (98-107); Creatinine, Serum 1.02 mg/dL (0.55-1.02); EST Glomerular Filtration Rate 57 mL/min (>60); Est Glom Filt Rate - Afr Amer 69 mL/min (>60); Globulin 2.5 g/dL (2.2-4.2); Glucose 86 mg/dL (74-106); Potassium 3.9 mmol/L (3.5-5.1); Protein, Total 6.2 g/dL (6.4-8.2); Sodium Level 144 mmol/L (136-145)
== END ==
LOC: OLS.WHLEAS 05:55
PROVIDERS: PCP Family Medicine; Visit Provider Internal Medicine
DX: D50.9 Iron deficiency anemia, unspecified (principal)
CPT/HCPCS: 36415; 80053; 85025

== ENCOUNTER → 2023-04-30 | Outpatient (REF) | payer MEDICARE, MEDICAID, SELFPAY ==
[2023-04-30 07:53] LABS: Absolute Lymphocyte Count 1.25 X10^3/uL (0.83-4.51); Absolute Neutrophil Count 2.4 X10^3/uL (2.0-7.7); Basophil# 0.02 X10^3/uL; Basophil% 0.4 % (0-1); Eosinophil# 0.16 X10^3/uL; Eosinophils% 3.5 % (0-5); Hematocrit 29.9 % (37-47); Hemoglobin 9.5 g/dL (12.0-15.0); Lymphocyte # 1.25 X10^3/ul (0.83-4.51); Lymphocyte % 27.2 % (19-41); Mean Corp Hgb Conc 31.8 g/dL (32-36); Mean Corpuscular Hgb 29.1 pg (27.0-32.0); Mean Corpuscular Volume 91.7 fL (81-99); Mean Platelet Vol. 9.1 fl (6.2-12.0); Monocyte% 15.3 % (0-10); NRBC Flagged by Analyzer 0 % (0-5); Neutrophil # 2.44 X10^3/uL (2.7-7.7); Neutrophil % 53.2 % (47-70); Platelet Count 196 K/mm3 (150-450); RBC Distribution Width CV 13.7 % (11.6-14.6); RBC Distribution Width SD 46.4 fl (35.1-43.9); Red Blood Count 3.26 M/mm3 (4.2-5.4); White Blood Count 4.6 K/mm3 (4.4-11.0)
[2023-04-30 08:08] LABS: ALB/GLOB Ratio 1.5 RATIO (0.9-2.4); AST(SGOT) 20 U/L (15-37); Alanine Aminotransfer ALT/SGPT 22 U/L (13-56); Albumin, Serum 3.2 g/dL (3.2-5.0); Alkaline Phosphatase 39 U/L (45-117); Anion Gap 5 (5-15); BUN 16 mg/dL (7-18); BUN/Creat Ratio 16.4 RATIO (10-20); Calcium,Total 8.5 mg/dL (8.5-10.1); Chloride 112 mmol/L (98-107); Creatinine, Serum 0.98 mg/dL (0.55-1.02); EST Glomerular Filtration Rate 60 mL/min (>60); Est Glom Filt Rate - Afr Amer 73 mL/min (>60); Globulin 2.1 g/dL (2.2-4.2); Glucose 90 mg/dL (74-106); Potassium 3.6 mmol/L (3.5-5.1); Protein, Total 5.3 g/dL (6.4-8.2); Sodium Level 142 mmol/L (136-145)
== END ==
LOC: OLS.WHLEAS 05:00
PROVIDERS: PCP Family Medicine; Visit Provider Internal Medicine
DX: D50.9 Iron deficiency anemia, unspecified (principal)
CPT/HCPCS: 36415; 80053; 85025

== ENCOUNTER → 2023-05-03 | Outpatient (REF) | payer MEDICARE, MEDICAID, SELFPAY ==
[2023-05-03 08:44] LABS: Erythrocyte Sedimentation Rate 7 mm/hr (0-30)
[2023-05-03 08:54] LABS: CRP 3.96 mg/L (0.0-3.0)
== END ==
LOC: OLS.WHLEAS 05:00
PROVIDERS: PCP Family Medicine; Visit Provider Internal Medicine
DX: M15.0 Primary generalized (osteo)arthritis (principal); D50.9 Iron deficiency anemia, unspecified; I10 Essential (primary) hypertension; E78.5 Hyperlipidemia, unspecified; M62.561 Muscle wasting and atrophy, not elsewhere classified, right lower leg; M62.562 Muscle wasting and atrophy, not elsewhere classified, left lower leg
CPT/HCPCS: 36415; 85652; 86140

== ENCOUNTER → 2023-05-07 | Outpatient (REF) | payer MEDICARE, MEDICAID, SELFPAY ==
[2023-05-07 08:46] LABS: Absolute Lymphocyte Count 1.45 X10^3/uL (0.83-4.51); Absolute Neutrophil Count 1.1 X10^3/uL (2.0-7.7); Basophil# 0.03 X10^3/uL; Basophil% 0.9 % (0-1); Eosinophil# 0.13 X10^3/uL; Eosinophils% 3.9 % (0-5); Hematocrit 28.7 % (37-47); Lymphocyte # 1.45 X10^3/ul (0.83-4.51); Lymphocyte % 43.5 % (19-41); Mean Corp Hgb Conc 31.4 g/dL (32-36); Mean Corpuscular Hgb 28.8 pg (27.0-32.0); Mean Corpuscular Volume 91.7 fL (81-99); Mean Platelet Vol. 9.3 fl (6.2-12.0); NRBC Flagged by Analyzer 0 % (0-5); Neutrophil # 1.11 X10^3/uL (2.7-7.7); Neutrophil % 33.4 % (47-70); Platelet Count 192 K/mm3 (150-450); RBC Distribution Width CV 13.6 % (11.6-14.6); RBC Distribution Width SD 45.5 fl (35.1-43.9); Red Blood Count 3.13 M/mm3 (4.2-5.4); White Blood Count 3.3 K/mm3 (4.4-11.0)
[2023-05-07 08:59] LABS: ALB/GLOB Ratio 1.4 RATIO (0.9-2.4); AST(SGOT) 16 U/L (15-37); Alanine Aminotransfer ALT/SGPT 21 U/L (13-56); Albumin, Serum 3.2 g/dL (3.2-5.0); Alkaline Phosphatase 40 U/L (45-117); Anion Gap 5 (5-15); BUN 16 mg/dL (7-18); BUN/Creat Ratio 17.5 RATIO (10-20); Calcium,Total 8.5 mg/dL (8.5-10.1); Chloride 113 mmol/L (98-107); Creatinine, Serum 0.91 mg/dL (0.55-1.02); EST Glomerular Filtration Rate 65 mL/min (>60); Est Glom Filt Rate - Afr Amer 79 mL/min (>60); Globulin 2.3 g/dL (2.2-4.2); Glucose 76 mg/dL (74-106); Potassium 3.8 mmol/L (3.5-5.1); Protein, Total 5.5 g/dL (6.4-8.2); Sodium Level 144 mmol/L (136-145)
== END ==
LOC: OLS.WHLEAS 04:00
PROVIDERS: PCP Family Medicine; Referring Provider Internal Medicine; Visit Provider Internal Medicine
DX: D50.9 Iron deficiency anemia, unspecified (principal)
CPT/HCPCS: 36415; 80053; 85025

== ENCOUNTER → 2023-05-14 | Outpatient (REF) | payer MEDICARE, MEDICAID, SELFPAY ==
[2023-05-14 09:15] LABS: Absolute Lymphocyte Count 1.55 X10^3/uL (0.83-4.51); Absolute Neutrophil Count 0.9 X10^3/uL (2.0-7.7); Basophil# 0.04 X10^3/uL; Basophil% 1.2 % (0-1); Eosinophil# 0.14 X10^3/uL; Eosinophils% 4.2 % (0-5); Hematocrit 30.3 % (37-47); Hemoglobin 9.7 g/dL (12.0-15.0); Lymphocyte # 1.55 X10^3/ul (0.83-4.51); Lymphocyte % 46.8 % (19-41); Mean Corpuscular Volume 90.7 fL (81-99); Mean Platelet Vol. 9.2 fl (6.2-12.0); Monocyte# 0.67 X10^3/uL; Monocyte% 20.2 % (0-10); NRBC Flagged by Analyzer 0 % (0-5); Neutrophil # 0.89 X10^3/uL (2.7-7.7); POSITIVE DIFFERENTIAL YES; Platelet Count 221 K/mm3 (150-450); RBC Distribution Width CV 13.1 % (11.6-14.6); RBC Distribution Width SD 42.8 fl (35.1-43.9); Red Blood Count 3.34 M/mm3 (4.2-5.4); White Blood Count 3.3 K/mm3 (4.4-11.0)
[2023-05-14 09:41] LABS: ALB/GLOB Ratio 1.5 RATIO (0.9-2.4); AST(SGOT) 23 U/L (15-37); Alanine Aminotransfer ALT/SGPT 27 U/L (13-56); Albumin, Serum 3.5 g/dL (3.2-5.0); Alkaline Phosphatase 40 U/L (45-117); Anion Gap 7 (5-15); BUN 19 mg/dL (7-18); BUN/Creat Ratio 18.8 RATIO (10-20); Calcium,Total 8.7 mg/dL (8.5-10.1); Chloride 111 mmol/L (98-107); Creatinine, Serum 1.01 mg/dL (0.55-1.02); EST Glomerular Filtration Rate 58 mL/min (>60); Est Glom Filt Rate - Afr Amer 70 mL/min (>60); Globulin 2.3 g/dL (2.2-4.2); Glucose 84 mg/dL (74-106); Potassium 3.5 mmol/L (3.5-5.1); Protein, Total 5.8 g/dL (6.4-8.2); Sodium Level 143 mmol/L (136-145)
[2023-05-14 09:46] LABS: Differential Indicated SCAN CRITERIA MET
[2023-05-14 09:47] LABS: Differential Comment SCANNED
== END ==
LOC: OLS.WHLEAS 05:00
PROVIDERS: PCP Family Medicine; Visit Provider Internal Medicine
DX: D50.9 Iron deficiency anemia, unspecified (principal)
CPT/HCPCS: 36415; 80053; 85025

== ENCOUNTER → 2023-05-20 | Outpatient (REF) | payer MEDICARE, MEDICAID, SELFPAY ==
[2023-05-21 09:23] LABS: Color, Urine Straw (Yellow); Glucose, Dipstick Normal (Normal); Ketone-Dipstick Negative (Negative); Leukocyte Esterase-Dipstick 25 /ul (Negative); Nitrite-Dipstick Negative (Negative); Occult Blood-Urine Negative /ul (Negative); Protein-Dipstick Negative (Negative); Specific Gravity, Urine 1.005 (1.002-1.030); Urine Bilirubin Dipstick Negative (Negative); Urine Clarity Clear (Clear); Urine Urobilinogen Normal (Normal)
== END ==
LOC: OLS.WHLEAS 17:00
PROVIDERS: PCP Family Medicine; Visit Provider Internal Medicine
DX: R35.89 Other polyuria (principal)
CPT/HCPCS: 81002; 87077; 87086; 87088; 87186

== ENCOUNTER → 2023-05-28 | Outpatient (REF) | payer MEDICARE, MEDICAID, SELFPAY ==
[2023-05-28 08:49] LABS: Absolute Lymphocyte Count 1.21 X10^3/uL (0.83-4.51); Absolute Neutrophil Count 0.8 X10^3/uL (2.0-7.7); Basophil# 0.04 X10^3/uL; Basophil% 1.4 % (0-1); Eosinophil# 0.22 X10^3/uL; Eosinophils% 7.9 % (0-5); Hematocrit 31.8 % (37-47); Hemoglobin 10.1 g/dL (12.0-15.0); Lymphocyte # 1.21 X10^3/ul (0.83-4.51); Lymphocyte % 43.2 % (19-41); Mean Corp Hgb Conc 31.8 g/dL (32-36); Mean Corpuscular Hgb 28.5 pg (27.0-32.0); Mean Corpuscular Volume 89.6 fL (81-99); Mean Platelet Vol. 9.4 fl (6.2-12.0); Monocyte# 0.55 X10^3/uL; Monocyte% 19.6 % (0-10); NRBC Flagged by Analyzer 0 % (0-5); Neutrophil # 0.78 X10^3/uL (2.7-7.7); Neutrophil % 27.9 % (47-70); POSITIVE DIFFERENTIAL YES; Platelet Count 213 K/mm3 (150-450); RBC Distribution Width CV 12.5 % (11.6-14.6); Red Blood Count 3.55 M/mm3 (4.2-5.4); White Blood Count 2.8 K/mm3 (4.4-11.0)
[2023-05-28 08:57] LABS: Differential Indicated SCAN CRITERIA MET
[2023-05-28 09:03] LABS: ALB/GLOB Ratio 1.5 RATIO (0.9-2.4); AST(SGOT) 23 U/L (15-37); Alanine Aminotransfer ALT/SGPT 31 U/L (13-56); Albumin, Serum 3.4 g/dL (3.2-5.0); Alkaline Phosphatase 43 U/L (45-117); Anion Gap 8 (5-15); BUN 14 mg/dL (7-18); BUN/Creat Ratio 11.9 RATIO (10-20); Calcium,Total 8.8 mg/dL (8.5-10.1); Chloride 111 mmol/L (98-107); Creatinine, Serum 1.18 mg/dL (0.55-1.02); EST Glomerular Filtration Rate 48 mL/min (>60); Est Glom Filt Rate - Afr Amer 59 mL/min (>60); Globulin 2.3 g/dL (2.2-4.2); Glucose 93 mg/dL (74-106); Potassium 3.9 mmol/L (3.5-5.1); Protein, Total 5.7 g/dL (6.4-8.2); Sodium Level 143 mmol/L (136-145)
== END ==
LOC: OLS.WHLEAS 05:00
PROVIDERS: PCP Family Medicine; Visit Provider Internal Medicine
DX: D50.9 Iron deficiency anemia, unspecified (principal)
CPT/HCPCS: 36415; 80053; 85025

== ENCOUNTER → 2023-05-30 | Outpatient (REF) | payer MEDICARE, MEDICAID, SELFPAY ==
[2023-05-30 09:43] LABS: Color, Urine Straw (Yellow); Glucose, Dipstick Normal (Normal); Ketone-Dipstick Negative (Negative); Leukocyte Esterase-Dipstick Negative /ul (Negative); Nitrite-Dipstick Negative (Negative); Occult Blood-Urine Negative /ul (Negative); Protein-Dipstick Negative (Negative); Urine Bilirubin Dipstick Negative (Negative); Urine Clarity Clear (Clear); Urine Urobilinogen Normal (Normal)
== END ==
LOC: OLS.WHLEAS 03:00
PROVIDERS: PCP Family Medicine; Visit Provider Internal Medicine
DX: N39.0 Urinary tract infection, site not specified (principal)
CPT/HCPCS: 81002; 87086; 87088

== ENCOUNTER → 2023-05-31 | Outpatient (REF) | payer MEDICARE, MEDICAID, SELFPAY ==
[2023-05-31 08:28] LABS: Erythrocyte Sedimentation Rate 3 mm/hr (0-30)
[2023-05-31 08:45] LABS: CRP < 2.90 mg/L (0.0-3.0)
== END ==
LOC: OLS.WHLEAS 05:00
PROVIDERS: PCP Family Medicine; Visit Provider Internal Medicine
DX: M15.0 Primary generalized (osteo)arthritis (principal); D50.9 Iron deficiency anemia, unspecified; I10 Essential (primary) hypertension; E78.5 Hyperlipidemia, unspecified; E87.6 Hypokalemia; M62.561 Muscle wasting and atrophy, not elsewhere classified, right lower leg; M62.562 Muscle wasting and atrophy, not elsewhere classified, left lower leg
CPT/HCPCS: 36415; 85652; 86140

== ENCOUNTER → 2023-06-04 | Outpatient (REF) | payer MEDICARE, MEDICAID, SELFPAY ==
[2023-06-04 08:46] LABS: Absolute Lymphocyte Count 1.14 X10^3/uL (0.83-4.51); Absolute Neutrophil Count 0.7 X10^3/uL (2.0-7.7); Basophil# 0.03 X10^3/uL; Basophil% 1.1 % (0-1); Eosinophils% 7.5 % (0-5); Hematocrit 29.6 % (37-47); Hemoglobin 9.4 g/dL (12.0-15.0); Lymphocyte # 1.14 X10^3/ul (0.83-4.51); Lymphocyte % 42.5 % (19-41); Mean Corp Hgb Conc 31.8 g/dL (32-36); Mean Corpuscular Hgb 27.8 pg (27.0-32.0); Mean Corpuscular Volume 87.6 fL (81-99); Mean Platelet Vol. 9.5 fl (6.2-12.0); Monocyte# 0.58 X10^3/uL; Monocyte% 21.6 % (0-10); NRBC Flagged by Analyzer 0 % (0-5); Neutrophil # 0.73 X10^3/uL (2.7-7.7); Neutrophil % 27.3 % (47-70); POSITIVE DIFFERENTIAL YES; Platelet Count 164 K/mm3 (150-450); RBC Distribution Width CV 12.5 % (11.6-14.6); RBC Distribution Width SD 39.8 fl (35.1-43.9); Red Blood Count 3.38 M/mm3 (4.2-5.4); White Blood Count 2.7 K/mm3 (4.4-11.0)
[2023-06-04 08:47] LABS: Differential Indicated SCAN CRITERIA MET
[2023-06-04 08:54] LABS: ALB/GLOB Ratio 1.5 RATIO (0.9-2.4); AST(SGOT) 22 U/L (15-37); Alanine Aminotransfer ALT/SGPT 23 U/L (13-56); Albumin, Serum 3.2 g/dL (3.2-5.0); Alkaline Phosphatase 42 U/L (45-117); Anion Gap 5 (5-15); BUN 16 mg/dL (7-18); BUN/Creat Ratio 12.1 RATIO (10-20); Calcium,Total 8.5 mg/dL (8.5-10.1); Chloride 113 mmol/L (98-107); Creatinine, Serum 1.32 mg/dL (0.55-1.02); EST Glomerular Filtration Rate 43 mL/min (>60); Est Glom Filt Rate - Afr Amer 52 mL/min (>60); Globulin 2.1 g/dL (2.2-4.2); Glucose 92 mg/dL (74-106); Potassium 3.9 mmol/L (3.5-5.1); Protein, Total 5.3 g/dL (6.4-8.2); Sodium Level 143 mmol/L (136-145)
== END ==
LOC: OLS.WHLEAS 05:00
PROVIDERS: PCP Family Medicine; Visit Provider Internal Medicine
DX: D50.9 Iron deficiency anemia, unspecified (principal)
CPT/HCPCS: 36415; 80053; 85025

== ENCOUNTER → 2023-06-11 | Outpatient (REF) | payer MEDICARE, MEDICAID, SELFPAY ==
[2023-06-11 08:28] LABS: Absolute Lymphocyte Count 1.19 X10^3/uL (0.83-4.51); Absolute Neutrophil Count 0.8 X10^3/uL (2.0-7.7); Basophil# 0.02 X10^3/uL; Basophil% 0.8 % (0-1); Eosinophil# 0.15 X10^3/uL; Eosinophils% 5.7 % (0-5); Hematocrit 30.1 % (37-47); Hemoglobin 9.4 g/dL (12.0-15.0); Lymphocyte # 1.19 X10^3/ul (0.83-4.51); Lymphocyte % 45.4 % (19-41); Mean Corp Hgb Conc 31.2 g/dL (32-36); Mean Corpuscular Hgb 27.2 pg (27.0-32.0); Mean Corpuscular Volume 87.2 fL (81-99); Mean Platelet Vol. 9.5 fl (6.2-12.0); Monocyte# 0.47 X10^3/uL; Monocyte% 17.9 % (0-10); NRBC Flagged by Analyzer 0 % (0-5); Neutrophil # 0.79 X10^3/uL (2.7-7.7); Neutrophil % 30.2 % (47-70); POSITIVE DIFFERENTIAL YES; Platelet Count 186 K/mm3 (150-450); RBC Distribution Width CV 12.4 % (11.6-14.6); RBC Distribution Width SD 39.6 fl (35.1-43.9); Red Blood Count 3.45 M/mm3 (4.2-5.4); White Blood Count 2.6 K/mm3 (4.4-11.0)
[2023-06-11 08:32] LABS: Differential Indicated SCAN CRITERIA MET
[2023-06-11 08:52] LABS: ALB/GLOB Ratio 1.5 RATIO (0.9-2.4); AST(SGOT) 21 U/L (15-37); Alanine Aminotransfer ALT/SGPT 21 U/L (13-56); Albumin, Serum 3.2 g/dL (3.2-5.0); Alkaline Phosphatase 38 U/L (45-117); Anion Gap 7 (5-15); BUN 16 mg/dL (7-18); BUN/Creat Ratio 15.2 RATIO (10-20); Calcium,Total 8.7 mg/dL (8.5-10.1); Chloride 112 mmol/L (98-107); Creatinine, Serum 1.05 mg/dL (0.55-1.02); EST Glomerular Filtration Rate 55 mL/min (>60); Est Glom Filt Rate - Afr Amer 67 mL/min (>60); Globulin 2.1 g/dL (2.2-4.2); Glucose 85 mg/dL (74-106); Potassium 3.8 mmol/L (3.5-5.1); Protein, Total 5.3 g/dL (6.4-8.2); Sodium Level 142 mmol/L (136-145)
== END ==
LOC: OLS.WHLEAS 05:20
PROVIDERS: PCP Family Medicine; Visit Provider Internal Medicine
DX: D50.9 Iron deficiency anemia, unspecified (principal)
CPT/HCPCS: 36415; 80053; 85025

== ENCOUNTER → 2023-06-18 | Outpatient (REF) | payer MEDICARE, MEDICAID, SELFPAY ==
[2023-06-18 08:41] LABS: Absolute Lymphocyte Count 1.22 X10^3/uL (0.83-4.51); Absolute Neutrophil Count 0.8 X10^3/uL (2.0-7.7); Basophil# 0.04 X10^3/uL; Basophil% 1.5 % (0-1); Eosinophil# 0.16 X10^3/uL; Hemoglobin 9.3 g/dL (12.0-15.0); Lymphocyte # 1.22 X10^3/ul (0.83-4.51); Lymphocyte % 45.5 % (19-41); Mean Corpuscular Hgb 27.2 pg (27.0-32.0); Mean Corpuscular Volume 87.7 fL (81-99); Monocyte% 18.7 % (0-10); NRBC Flagged by Analyzer 0 % (0-5); Neutrophil # 0.75 X10^3/uL (2.7-7.7); Neutrophil % 27.9 % (47-70); POSITIVE DIFFERENTIAL YES; Platelet Count 189 K/mm3 (150-450); RBC Distribution Width CV 12.6 % (11.6-14.6); RBC Distribution Width SD 40.3 fl (35.1-43.9); Red Blood Count 3.42 M/mm3 (4.2-5.4); White Blood Count 2.7 K/mm3 (4.4-11.0)
[2023-06-18 08:44] LABS: Differential Indicated SCAN CRITERIA MET
[2023-06-18 08:57] LABS: ALB/GLOB Ratio 1.6 RATIO (0.9-2.4); AST(SGOT) 24 U/L (15-37); Alanine Aminotransfer ALT/SGPT 21 U/L (13-56); Albumin, Serum 3.3 g/dL (3.2-5.0); Alkaline Phosphatase 41 U/L (45-117); Anion Gap 5 (5-15); BUN 16 mg/dL (7-18); BUN/Creat Ratio 15.8 RATIO (10-20); Calcium,Total 8.6 mg/dL (8.5-10.1); Chloride 112 mmol/L (98-107); Creatinine, Serum 1.01 mg/dL (0.55-1.02); EST Glomerular Filtration Rate 58 mL/min (>60); Est Glom Filt Rate - Afr Amer 70 mL/min (>60); Globulin 2.1 g/dL (2.2-4.2); Glucose 87 mg/dL (74-106); Potassium 3.8 mmol/L (3.5-5.1); Protein, Total 5.4 g/dL (6.4-8.2); Sodium Level 142 mmol/L (136-145)
== END ==
LOC: OLS.WHLEAS 05:00
PROVIDERS: PCP Family Medicine; Visit Provider Internal Medicine
DX: D50.9 Iron deficiency anemia, unspecified (principal); K85.90 Acute pancreatitis without necrosis or infection, unspecified
CPT/HCPCS: 36415; 80053; 85025

== ENCOUNTER 2024-08-25 08:27 | Inpatient (IN) | payer MEDICARE, MEDICAID, SELFPAY ==
[2024-08-25] VITALS (8 sets, daily range): BP systolic 140–158; BP diastolic 62–94; PULSE 67–91; RESP 16–18; TEMP 36.7–37.4; O2SAT 95–99; BMI 42.7; BMI 40.9
--- NOTE | 2024-08-25 08:46 | CT_ITS ---
STUDY: CT ABDOMEN AND PELVIS WITH CONTRAST - URINARY TRACT REASON FOR EXAM: Female, 69 years old. Abdominal pain, recurrent pancreatitis, nausea RADIATION DOSAGE (If Supplied By Facility): CTDIvol = ( 19.95 ) mGy, DLP = ( 1131.13 ) mGycm TECHNIQUE: IV 100mL Isovue-300 was administered. Transaxial images were obtained from the dome of the diaphragm to the symphysis pubis subsequent to intravenous contrast administration. Multiplanar coronal and sagittal images were reformatted. The protocol utilizes one or more of the following dose reduction techniques: automated exposure control, adjustment of mA and/or kV according to patient size,and/or use of iterative reconstruction technique. COMPARISON: February 24, 2023 FINDINGS: The visualized lung bases are unremarkable. The visualized portions of the heart are within normal limits. Normal liver. There is non-visualization of the gallbladder, which may be secondary to either contraction or a prior cholecystectomy. Normal spleen. There is peripancreatic stranding adjacent to the head and body of the pancreas consistent with acute pancreatitis. There are scattered calcifications throughout the body and head of the pancreas associated with mild pancreatic ductal dilatation system with a history of chronic pancreatitis. Normal bilateral adrenal glands. There is a small hiatal hernia. Normal small intestine. There are multiple colonic diverticula consistent with diverticulosis. There is non-visualization of the appendix. Normal abdominal aorta. No retroperitoneal adenopathy. Normal right kidney. There is a too small to characterize low-attenuation focus within the left kidney suggestive of a cyst. Normal urinary bladder. Normal abdominal wall. Normal osseous structures. CT/Abdomen/Pelvis W IV Cont ONLY IMPRESSION: Acute on chronic pancreatitis. Colonic diverticulosis. Electronically Signed: Hayley Valencia MD at 9:53 EST ,
[2024-08-25 08:59] LABS: Absolute Lymphocyte Count 0.73 X10^3/uL (0.83-4.51); Absolute Neutrophil Count 8.3 X10^3/uL (2.0-7.7); Basophil# 0.03 X10^3/uL; Basophil% 0.3 % (0-1); Eosinophil# 0.03 X10^3/uL; Eosinophils% 0.3 % (0-5); Hematocrit 37.9 % (37-47); Hemoglobin 12.9 g/dL (12.0-15.0); Lymphocyte # 0.73 X10^3/ul (0.83-4.51); Lymphocyte % 7.5 % (19-41); Mean Corpuscular Hgb 27.2 pg (27.0-32.0); Mean Platelet Vol. 9.3 fl (6.2-12.0); Monocyte# 0.58 X10^3/uL; NRBC Flagged by Analyzer 0 % (0-5); Neutrophil # 8.26 X10^3/uL (2.7-7.7); Neutrophil % 85.1 % (47-70); Platelet Count 236 K/mm3 (150-450); RBC Distribution Width CV 12.4 % (11.6-14.6); RBC Distribution Width SD 35.7 fl (35.1-43.9); Red Blood Count 4.74 M/mm3 (4.2-5.4); White Blood Count 9.7 K/mm3 (4.4-11.0)
--- NOTE | 2024-08-25 08:59 | EDS_ITS ---
HPI History of Present Illness Chief Complaint: Abd Pain Narrative Narrative: Chief complaint and HPI: 69-year-old female with past medical history of HTN, chronic/recurrent pancreatitis, GERD presents for evaluation of epigastric abdominal pain. Patient states she has a previous history of pancreatitis secondary to cholelithiasis. She had a cholecystectomy. Since then she has had recurrent/chronic pancreatitis. Patient used to follow with Dr. Massey but has not seen him in a while given that her symptoms improved when started on pancreatic enzymes. She denies any alcohol abuse. Patient states yesterday she developed nausea and vomiting. States she thought she was developing a viral illness. She states her epigastric abdominal pain then appeared and has progressively worsened. States this feels similar to her pancreatitis flares. She denies any fever, chills, shortness of breath, chest pain, diarrhea, constipation, dysuria. Review of systems: See HPI Medications: As listed on the chart Allergies: As listed on the chart PFSH: Per chart Vital signs: As listed on the chart. Reviewed. Physical exam: Gen: A&O x3, NAD Head: Normocephalic, atraumatic Eyes: No sclera icterus, conjunctiva clear ENT: Moist mucous membranes Neck: Trachea midline, No JVD CV: RRR, no murmurs, no peripheral edema Resp: Lungs CTA BL, no w/r/c GI: Abd soft, non-distended, mildly tender to palpation in the epigastric, no r/r/g Musc: Full ROM, no deformity Skin: Warm, dry Neuro: Alert, oriented, grossly intact, sensation intact Psych: Cooperative, appropriate mood and affect [facility] Medical History Morbid obesity Vision changes GCA (giant cell arteritis) Anemia Chronic pain Osteoporosis Anxiety and depression Lung nodules Pure hypercholesterolemia Thoracic aortic aneurysm without rupture Essential hypertension Pancreatitis GERD (gastroesophageal reflux disease) Morbid obesity Colon polyps Former smoker Poor dentition Osteoarthritis Multiple thyroid nodules Home Medications ?Medication ?Instructions ?Recorded ?Last Taken ?Type calcium 600 mg (as 1 tab PO DAILY SUPPLEMENT 10/16/21 02/21/23 History carbonate)-vitamin D3 10 mcg (400 unit) tablet metoprolol succinate 25 mg 25 mg PO DAILY BLOOD PRESSURE #90 01/08/23 02/21/23 Rx tablet,extended release 24 hr tabs bupropion HCl 150 mg 24 hr tablet, 150 mg PO DAILY DEPRESSION 02/04/23 02/21/23 History extended release ergocalciferol (vitamin D2) 1,250 1,250 mcg PO TH 02/04/23 02/21/23 History mcg (50,000 unit) capsule nystatin 100,000 unit/gram topical 1 applic topical BID PRN ANTIFUNGAL 02/04/23 Unknown History cream sertraline 50 mg tablet 50 mg PO DAILY DEPRESSION 02/04/23 02/21/23 History tocilizumab 162 mg/0.9 mL 162 mg subcut TU RHEUMATOID 02/04/23 02/19/23 History subcutaneous pen injector (Actemra ARTHRITIS ACTPen) potassium chloride 20 mEq 20 meq PO DAILY SUPPLEMENT 7 days 02/11/23 02/21/23 Rx tablet,extended release #7 tabs omeprazole 20 mg capsule,delayed 40 mg (2 x 20 mg) PO DAILY ACID 02/23/23 02/21/23 Rx release REFLUX 30 days #0 caps amlodipine 10 mg tablet 10 mg PO DAILY #0 tabs 03/02/23 Unknown Rx oxycodone 5 mg tablet 5 mg PO Q4H PRN PRN Pain Score 03/02/23 Unknown Rx 4-10 1 day #6 tabs scopolamine base 1 mg over 3 days 1 patch transdermal Q3D #0 ea 03/02/23 Unknown Rx transdermal patch [id number] See Rx Instructions PO .COMPLEX 09/02/23 Unknown Rx 40,000-126,000-168,000 unit #320 caps capsule, delay rel (Zenpep) Allergy/AdvReac Type Severity Reaction Status Date / Time No Known Allergies Allergy Verified 08/25/24 08:32 Family History Mother Colon cancer Father Cancer Lung Sister Breast cancer Brother Cancer Lung Surgical History History of total hysterectomy History of carpal tunnel surgery History of cholecystectomy Social History household members: none Smoking Status: Former smoker alcohol intake: never substance use type: does not use caffeine: Yes Type: coffee Number of servings: 2 EXAM Physical Exam Const Vital Signs: 08/25/24 08:29 08/25/24 10:28 08/25/24 11:20 Temperature 98.6 F 98.2 F Temperature Source Temporal Pulse Rate 91 86 70 Respiratory Rate 18 16 18 Blood Pressure 151/94 H 156/68 H 150/62 H Blood Pressure Mean 113 97 91 Pulse Ox 98 99 99 Oxygen Delivery Method Room Air 08/25/24 11:22 Temperature 98.2 F Temperature Source Oral Pulse Rate 72 Respiratory Rate 16 Blood Pressure 150/62 H Blood Pressure Mean 91 Pulse Ox 96 Oxygen Delivery Method Room Air MDM MDM MDM Narrative Medical decision making narrative: 69-year-old female with past medical history of HTN, chronic/recurrent pancreatitis, GERD presents for evaluation of epigastric abdominal pain. Differential diagnosis includes but is not limited to recurrent pancreatitis, electrolyte abnormality, JUDE, viral illness, colitis. NS bolus, Zofran, morphine ordered for pain. Abdominal pain workup ordered. CBC without leukocytosis or anemia. CMP without JUDE or transaminitis. Patient's lipase is elevated at 474, this is 3 times the upper limit of normal consistent with acute pancreatitis. UA shows ketones for mild dehydration. No UTI. CT abdomen pelvis shows findings of acute on chronic pancreatitis. On reevaluation patient still endorsing epigastric abdominal pain. More IV morphine ordered. Patient will warrant admission for continued pain control and IV hydration. Patient was updated of all the results and confirmed understanding of the plan. Patient was discussed with the hospitalist service who accepted admission. Impression: 1. Acute on chronic pancreatitis 2. Dehydration Lab Data Labs: Laboratory Results - last 24 hr 08/25/24 08/25/24 08:47 10:18 WBC 9.7 RBC 4.74 Hgb 12.9 Hct 37.9 MCV 80.0 L MCH 27.2 MCHC 34.0 RDW Std Deviation 35.7 RDW Coeff of Janey 12.4 Plt Count 236 MPV 9.3 Immature Gran % (Auto) 0.800 Neut % (Auto) 85.1 H Lymph % (Auto) 7.5 L [place] % (Auto) 6.0 Eos % (Auto) 0.3 Baso % (Auto) 0.3 Absolute Neuts (auto) 8.3 H Absolute Lymphs (auto) 0.73 L Nucleated RBC % 0 Sodium 136 Potassium 3.6 Chloride 104 Carbon Dioxide 20.0 L Anion Gap 13 BUN 17 Creatinine 0.83 Estim Creat Clear Calc 70.45 Est GFR (MDRD) Af Amer 87 Est GFR (MDRD) Non-Af 72 BUN/Creatinine Ratio 20.4 H Glucose 133 H Calcium 9.5 Total Bilirubin 1.40 H AST 20 ALT 15 Alkaline Phosphatase 108 Total Protein 7.2 Albumin 3.6 Globulin 3.6 Albumin/Globulin Ratio 1.0 Lipase 474 H Urine Color Yellow Urine Clarity Clear Urine pH 5.0 Ur Specific [place] 1.020 Urine Protein 30 H Urine Glucose (UA) Normal Urine Ketones 150 A* Urine Occult Blood 25 H Urine Nitrite Negative Urine Bilirubin Negative Urine Urobilinogen Normal Ur Leukocyte Esterase 500 H Urine RBC 0-5 SEEN Urine WBC 10-25 SEEN Ur Squamous Epith Cells 0-5 SEEN Urine Bacteria 0 SEEN Urine Mucus 0 SEEN Radiography Diagnostic Testing: Clinical Impression(s) from Imaging Studies Abdomen/Pelvis CT 08/25/24 08:46 IMPRESSION: Acute on chronic pancreatitis. Colonic diverticulosis. Electronically Signed: Hayley Valencia MD at 9:53 EST , Discharge Plan Triage Chief Complaint: Abd Pain ED Provider: Elmer Barajas Dx/Rx/DC Orders Prescriptions: No Action Zenpep 40,000-126,000- 168,000 unit capsule,delayed release(DR/EC) See Rx Instructions PO .COMPLEX Qty: 320 11RF Rx Instructions: take 1-2 with snacks and 2-3 with meals calcium carbonate-vitamin D3 600 mg-10 mcg (400 unit) tablet 1 tab PO DAILY sertraline 50 mg tablet 50 mg PO DAILY bupropion HCl 150 mg tablet extended release 24 hr 150 mg PO DAILY Actemra ACTPen 162 mg/0.9 mL pen injector 162 mg SUBCUT Patient Comments: PT STATES THEY HAD THEIR FIRST INJECTION THIS PREVIOUS SATURDAY (02-19-23) nystatin 100,000 unit/gram Cream 1 applic TOPICAL BID PRN (Reason: ANTIFUNGAL) ergocalciferol (vitamin D2) 1,250 mcg (50,000 unit) Capsule 1,250 mcg PO TH potassium chloride 20 mEq tablet extended release 20 meq PO DAILY 7 Days Qty: 7 0RF omeprazole 20 MG capsule 40 mg PO DAILY 30 Days Qty: 0 0RF amlodipine 10 mg Tablet 10 mg PO DAILY Qty: 0 0RF scopolamine base 1 mg over 3 days Patch 3 Day 1 patch transdermal Q3D Qty: 0 0RF oxycodone 5 mg Tablet 5 mg PO Q4H PRN PRN (Reason: Pain Score 4-10) 1 Days Qty: 6 0RF metoprolol succinate 25 mg tablet extended release 24 hr 25 mg PO DAILY Qty: 90 3RF Primary Care Provider: Mauro Hastings Referrals: Mauro Hastings MD [Primary Care Provider] - Print Language: Monegasque
[2024-08-25] MEDS: 0.9% Normal Saline (1000mL) 1,000 ML 999 ML IV (09:01)
[2024-08-25] MEDS: Morphine 4 MG/ML Syringe IV ×2 (09:01→11:18)
[2024-08-25] MEDS: Ondansetron 4 MG/2 ML Vial IV ×2 (09:02→20:59)
[2024-08-25 09:20] LABS: AST(SGOT) 20 U/L (15-37); Alanine Aminotransfer ALT/SGPT 15 U/L (13-56); Albumin, Serum 3.6 g/dL (3.2-5.0); Alkaline Phosphatase 108 U/L (45-117); Anion Gap 13 (5-15); BUN 17 mg/dL (7-18); BUN/Creat Ratio 20.4 RATIO (10-20); Calcium,Total 9.5 mg/dL (8.5-10.1); Chloride 104 mmol/L (98-107); Creatinine, Serum 0.83 mg/dL (0.55-1.02); EST Glomerular Filtration Rate 72 mL/min (>60); Est Glom Filt Rate - Afr Amer 87 mL/min (>60); Estimated Creatinine Clearance 70.45 ml/min; Globulin 3.6 g/dL (2.2-4.2); Glucose 133 mg/dL (74-106); Lipase 474 U/L (13-75); Potassium 3.6 mmol/L (3.5-5.1); Protein, Total 7.2 g/dL (6.4-8.2); Sodium Level 136 mmol/L (136-145)
[2024-08-25 10:21] LABS: Bacteria 0 SEEN /hpf (None Seen); Mucous, Urine 0 SEEN /hpf (<or=2+)
[2024-08-25 10:24] LABS: Color, Urine Yellow (Yellow); Glucose, Dipstick Normal (Normal); Leukocyte Esterase-Dipstick 500 /ul (Negative); Nitrite-Dipstick Negative (Negative); Occult Blood-Urine 25 /ul (Negative); Protein-Dipstick 30 mg/dl (Negative); Urine Bilirubin Dipstick Negative (Negative); Urine Clarity Clear (Clear); Urine Urobilinogen Normal (Normal)
[2024-08-25 10:27] LABS: Ketone-Dipstick 150 mg/dl (Negative)
[2024-08-25 10:30] LABS: White Blood Cells 10-25 SEEN /hpf (0-5)
[2024-08-25 10:31] LABS: Red Blood Cells-Urine 0-5 SEEN /hpf (0-5); Squamous Epithelial Cells - UA 0-5 SEEN /hpf (5-10)
--- NOTE | 2024-08-25 11:59 | CASEMGMT ---
Care Management Face to Face with patient for initial transition planning/care coordination assessment in the ED. This information writer introduced self and role at [facility]. Patient lying in bed, alert and oriented. Patient willing to participate in assessment and is able to answer all questions appropriately. Care providers, pharmacy, and demographics verified. Admitting Diagnosis: Acute on chronic pancreatitis; dehydration Other diagnosis history: HTN, chronic/recurrent pancreatitis, GERD PCP: Dr. Hastings Specialists: Dr. Willis, embroidery patternmaker. Dr. Massey, mr teacher. Preferred Pharmacy: [facility] Insurance: Medicare A and B (primary). [employer] (secondary). Prescription Benefit: yes Living Will/HPOA: none; denies needing information LNOK: 4 sons and 1 daughter; expresses a desire to only have daughter, Yareli, listed as emergency contact Living Arrangements: lives alone, single story apartment with no steps to enter; independent at baseline with all ADLs. Transportation: patient reports not driving and using [employer] to get to medical appointments. DME: wheelchair, walker, shower chair, and grab bars in bathroom HHC: has done PT in home, but could not recall the name of the agencies. SNF/Rehab: [facility] Community Resources: [employer]; patient reports having an aide through insurance that comes 2x per week for 3 hours at a time. Behavioral Health History: patient reports being active through [facility] with psychiatry and case management. Patient reports being diagnosed with recurrent situational depression. Patient goals: Patient wishes to discharge home and denies need for SNF at this time, but patient states the plan may change depending on how long patient has to stay admitted. Patient states the pain may become too severe to where short term placement somewhere is needed. Disposition Plan: admission to acute; RN CM/SW to follow for discharge planning needs that may arise. Lilia Mcmahon, HAIR DRYER, AERONAUTICAL RESEARCH ENGINEER
--- NOTE | 2024-08-25 15:24 | CASEMGMT ---
Social Work Pt has a hospice case manager through [facility], Zoey Curry. SW spoke w/Zoey, she is aware pt is here at [facility]. SW will continue to follow. DYLAN Abbott
[2024-08-25] MEDS: 0.9% Saline Lock 10 ML Syringe IV ×2 (15:42→20:59)
[2024-08-25] MEDS: HYDROmorphone 1 MG/ML Syringe IV ×2 (15:42→20:59)
[2024-08-25] MEDS: 0.9% Normal Saline (1000mL) 1,000 ML 175 ML IV ×2 (15:43→21:33)
--- NOTE | 2024-08-25 19:43 | PCM.HP.STD ---
HPI - General General Date of Admission: 08/25/24 Date of Service: 08/25/24 Chief Complaint: Abdominal pain HPI Narrative AUGUSTINE PENA, is a 69 F who presents to the emergency room at [facility] with epigastric abdominal pain. Patient has a previous history of pancreatitis and this was felt to be secondary to cholelithiasis. She had a cholecystectomy in the past. Since then she has had an episode of pancreatitis. Patient used to follow-up with gastroenterology but has not followed up with them in a while. She is currently on pancreatic enzyme supplements. Patient denies any alcohol abuse. Patient stated that yesterday she developed nausea and vomiting and thought it was a viral illness. She then had epigastric pain that is progressively worsened. Labs were obtained in the emergency room, CBC was unremarkable, chemistry profile was unremarkable, bilirubin was elevated at 1.4, liver enzymes were unremarkable, lipase was elevated at 474. CT of the abdomen and pelvis showed acute on chronic pancreatitis. Patient was admitted to [place] [id number] for acute recurrent pancreatitis, he will be placed on IV fluids and a liquid diet, IV pain medications will be administered as needed. [facility] Medical History (Updated 08/26/24 @ 17:[address] Ranjeet Escobar, DO) Morbid obesity Vision changes GCA (giant cell arteritis) Anemia Chronic pain Osteoporosis Anxiety and depression Lung nodules Pure hypercholesterolemia Thoracic aortic aneurysm without rupture Essential hypertension Pancreatitis GERD (gastroesophageal reflux disease) Morbid obesity Colon polyps Former smoker Poor dentition Osteoarthritis Multiple thyroid nodules Home Medications ?Medication ?Instructions ?Recorded ?Last Taken ?Type calcium 600 mg (as 1 tab PO DAILY SUPPLEMENT 10/16/21 02/21/23 History carbonate)-vitamin D3 10 mcg (400 unit) tablet metoprolol succinate 25 mg 25 mg PO DAILY BLOOD PRESSURE #90 01/08/23 02/21/23 Rx tablet,extended release 24 hr tabs bupropion HCl 150 mg 24 hr tablet, 150 mg PO DAILY DEPRESSION 02/04/23 02/21/23 History extended release ergocalciferol (vitamin D2) 1,250 1,250 mcg PO TH 02/04/23 02/21/23 History mcg (50,000 unit) capsule sertraline 50 mg tablet 100 mg PO DAILY DEPRESSION 02/04/23 02/21/23 History tocilizumab 162 mg/0.9 mL 162 mg subcut Q7D RHEUMATOID 02/04/23 08/17/24 History subcutaneous pen injector (Actemra ARTHRITIS ACTPen) potassium chloride 20 mEq 20 meq PO DAILY SUPPLEMENT 7 days 02/11/23 02/21/23 Rx tablet,extended release #7 tabs omeprazole 20 mg capsule,delayed 40 mg (2 x 20 mg) PO DAILY ACID 02/23/23 02/21/23 Rx release REFLUX 30 days #0 caps amlodipine 10 mg tablet 10 mg PO DAILY #0 tabs 03/02/23 Unknown Rx [id number] See Rx Instructions PO .COMPLEX 09/02/23 Unknown Rx 40,000-126,000-168,000 unit #320 caps capsule, delay rel (Zenpep) scopolamine base 1 mg over 3 days 1 patch transdermal Q3D PRN nausea 08/25/24 Unknown History transdermal patch Allergy/AdvReac Type Severity Reaction Status Date / Time No Known Allergies Allergy Verified 08/25/24 08:32 Family History Mother Colon cancer Father Cancer Lung Sister Breast cancer Brother Cancer Lung Surgical History History of total hysterectomy History of carpal tunnel surgery History of cholecystectomy Social History household members: none Smoking Status: Former smoker alcohol intake: never substance use type: does not use caffeine: Yes Type: coffee Number of servings: 2 ROS Constitutional Constitutional: Denies anorexia, change in weight, chills, fatigue, fever(s), night sweats or weakness Eyes Eyes: Denies blurry vision, change in vision, discharge from eye(s) or eye pain Cardiovascular Cardiovascular: Denies chest pain, claudication, edema or palpitations Respiratory/Chest Respiratory/Chest: Denies cough, hemoptysis, shortness of breath at rest or shortness of breath with exertion Gastrointestinal Gastrointestinal: Reports abdominal pain; Denies constipation, diarrhea, dyspepsia, hematemesis, hematochezia, melena, nausea or vomiting Genitourinary Genitourinary: Denies dysuria, hematuria, urinary frequency, urinary hesitancy, urinary incontinence or urinary urgency Musculoskeletal Musculoskeletal: Denies back pain, joint pain, joint stiffness, joint swelling, myalgias or neck pain Neurologic Neurologic: Denies abnormal gait, abnormal speech, dizziness, focal weakness, headache(s), loss of vision, numbness, other visual disturbances, paresthesias, syncope or tingling Psychiatric Psychiatric: Denies anxiety, cognitive impairment, depression, irritability, mood swings or suicidal ideation Endocrine Endocrinology: Denies change in body appearance, cold intolerance, excessive sweating, heat intolerance, polydipsia or polyuria Hematologic/Lymphatic Hematologic/Lymphatic: Denies none, anemia, easy bleeding, easy bruising or lymphadenopathy Allergic/Immunologic Allergic/Immunologic: Denies rhinitis, urticaria, eczemia or asthma Vital Signs Vital Signs Vital Signs: 08/25/24 08:29 08/25/24 10:28 08/25/24 11:20 Temperature 98.6 F 98.2 F Temperature Source Temporal Pulse Rate 91 86 70 Respiratory Rate 18 16 18 Blood Pressure 151/94 H 156/68 H 150/62 H Blood Pressure Mean 113 97 91 Blood Pressure Source Blood Pressure Position Blood Pressure Location Pulse Ox 98 99 99 Oxygen Delivery Method Room Air 08/25/24 11:22 08/25/24 12:00 08/25/24 14:00 Temperature 98.2 F Temperature Source Oral Pulse Rate 72 80 67 Respiratory Rate 16 16 18 Blood Pressure 150/62 H 140/62 H 157/76 H Blood Pressure Mean 91 88 103 Blood Pressure Source Blood Pressure Position Blood Pressure Location Pulse Ox 96 99 97 Oxygen Delivery Method Room Air Room Air 08/25/24 14:43 Temperature 99.4 F H Temperature Source Oral Pulse Rate 72 Respiratory Rate 16 Blood Pressure 158/85 H Blood Pressure Mean 109 Blood Pressure Source Monitor Blood Pressure Position Semi-Fowlers Blood Pressure Location Left Arm Pulse Ox 95 Oxygen Delivery Method Room Air Weight Weight: 98.3 kg Body Mass Index (BMI) 40.9 Physical Exam Const alert, oriented x3 and no apparent distress Constitutional Narrative: Patient has class III obesity General Appearance: cooperative, well kempt and well developed Orientation / Consciousness: awake, oriented to person, oriented to place and oriented to time HEENT normocephalic, head/scalp atraumatic, hearing grossly normal bilaterally and moist oral mucous membranes Eyes PERRL, EOMs intact bilaterally and conjunctivae normal Neck supple, no JVD, thyroid normal and no carotid bruits General: trachea midline Resp normal respiratory effort, no retractions, no use of accessory muscles and clear to auscultation bilaterally Auscultation: Negative for rales, rhonchi or wheezes Cardio regular rate, regular rhythm, S1 normal heart sound, S2 normal heart sound, no murmurs, no rub and no gallops GI normal to inspection, nondistended, normoactive bowel sounds, soft to palpation and non-distended GI Narrative: Patient has moderate abdominal tenderness across the mid abdomen to palpation, no rebound abdominal tenderness is noted Auscultation: hypoactive bowel sounds Extremity no clubbing, cyanosis or edema Skin no rashes or lesions noted General Skin Exam: no breakdown Neuro oriented x3, CN's II-XII intact bilaterally, moves all extremities, no focal motor deficits and no sensory deficits noted Sensorium / Orientation: awake and alert Speech: speech normal Psych affect normal Results Lab / Micro Data 08/26/24 04:56 08/26/24 04:56 Labs: Laboratory Results - last 24 hr 08/25/24 08:47: WBC 9.7, RBC 4.74, Hgb 12.9, Hct 37.9, MCV 80.0 L, MCH 27.2, MCHC 34.0, RDW Std Deviation 35.7, RDW Coeff of Janey 12.4, Plt Count 236, MPV 9.3, Immature Gran % (Auto) 0.800, Neut % (Auto) 85.1 H, Lymph % (Auto) 7.5 L, [place] % (Auto) 6.0, Eos % (Auto) 0.3, Baso % (Auto) 0.3, Absolute Neuts (auto) 8.3 H, Absolute Lymphs (auto) 0.73 L, Nucleated RBC % 0, Sodium 136, Potassium 3.6, Chloride 104, Carbon Dioxide 20.0 L, Anion Gap 13, BUN 17, Creatinine 0.83, Estim Creat Clear Calc 70.45, Est GFR (MDRD) Af Amer 87, Est GFR (MDRD) Non-Af 72, BUN/Creatinine Ratio 20.4 H, Glucose 133 H, Calcium 9.5, Total Bilirubin 1.40 H, AST 20, ALT 15, Alkaline Phosphatase 108, Total Protein 7.2, Albumin 3.6, Globulin 3.6, Albumin/Globulin Ratio 1.0, Lipase 474 H 08/25/24 10:18: Urine Color Yellow, Urine Clarity Clear, Urine pH 5.0, Ur Specific [place] 1.020, Urine Protein 30 H, Urine Glucose (UA) Normal, Urine Ketones 150 A*, Urine Occult Blood 25 H, Urine Nitrite Negative, Urine Bilirubin Negative, Urine Urobilinogen Normal, Ur Leukocyte Esterase 500 H, Urine RBC 0-5 SEEN, Urine WBC 10-25 SEEN, Ur Squamous Epith Cells 0-5 SEEN, Urine Bacteria 0 SEEN, Urine Mucus 0 SEEN Imaging Radiology Impression Abdomen/Pelvis CT 08/25/24 08:46 IMPRESSION: Acute on chronic pancreatitis. Colonic diverticulosis. Electronically Signed: Hayley Valencia MD at 9:53 EST , Assessment & Plan Assessment/Plan (1) Recurrent pancreatitis: PLAN: Plan 1. Recurrent pancreatitis-patient will be admitted to [facility] 3, IV fluids will be administered, patient will be on a clear liquid diet, IV pain medications will be given as needed #2 essential hypertension-patient will remain on her home medications, they will be adjusted as necessary #3 chronic depression-patient is on Wellbutrin and Zoloft #4 class III obesity-complicates care, management, recovery, and prognosis Total clinical time spent by myself addressing patient's medical issues, reviewing all of her data, and collaborating with patient's care team: 55 minutes Charges/Coding Visit Charges Inpatient E&M: 59044 Init Hosp L2
[2024-08-25] MEDS: Heparin Injection (Vial) 5,000 UNIT/ML VIAL 5000 UNIT SC (20:59)
[2024-08-26] VITALS (7 sets, daily range): BP systolic 127–160; BP diastolic 58–77; PULSE 57–65; RESP 16–18; TEMP 36.5–37.1; O2SAT 92–94
[2024-08-26] MEDS: 0.9% Normal Saline (1000mL) 1,000 ML 175 ML IV ×2 (03:15→09:12)
[2024-08-26] MEDS: 0.9% Saline Lock 10 ML Syringe IV ×3 (03:29→18:55)
[2024-08-26] MEDS: HYDROmorphone 1 MG/ML Syringe IV ×3 (03:31→18:53)
[2024-08-26 05:39] LABS: Absolute Lymphocyte Count 1.01 X10^3/uL (0.83-4.51); Absolute Neutrophil Count 6.5 X10^3/uL (2.0-7.7); Basophil# 0.03 X10^3/uL; Basophil% 0.3 % (0-1); Eosinophil# 0.15 X10^3/uL; Eosinophils% 1.7 % (0-5); Hematocrit 33.1 % (37-47); Hemoglobin 11.2 g/dL (12.0-15.0); Lymphocyte # 1.01 X10^3/ul (0.83-4.51); Lymphocyte % 11.7 % (19-41); Mean Corp Hgb Conc 33.8 g/dL (32-36); Mean Corpuscular Hgb 27.7 pg (27.0-32.0); Mean Corpuscular Volume 81.9 fL (81-99); Mean Platelet Vol. 9.1 fl (6.2-12.0); Monocyte# 0.85 X10^3/uL; Monocyte% 9.8 % (0-10); NRBC Flagged by Analyzer 0 % (0-5); Neutrophil # 6.53 X10^3/uL (2.7-7.7); Neutrophil % 75.8 % (47-70); Platelet Count 206 K/mm3 (150-450); RBC Distribution Width CV 12.6 % (11.6-14.6); RBC Distribution Width SD 37.7 fl (35.1-43.9); Red Blood Count 4.04 M/mm3 (4.2-5.4); White Blood Count 8.6 K/mm3 (4.4-11.0)
[2024-08-26 06:07] LABS: ALB/GLOB Ratio 1.1 RATIO (0.9-2.4); AST(SGOT) 18 U/L (15-37); Alanine Aminotransfer ALT/SGPT 15 U/L (13-56); Alkaline Phosphatase 82 U/L (45-117); Anion Gap 4 (5-15); BUN 12 mg/dL (7-18); BUN/Creat Ratio 18.7 RATIO (10-20); Calcium,Total 8.3 mg/dL (8.5-10.1); Chloride 109 mmol/L (98-107); Creatinine, Serum 0.64 mg/dL (0.55-1.02); EST Glomerular Filtration Rate 97 mL/min (>60); Est Glom Filt Rate - Afr Amer 118 mL/min (>60); Estimated Creatinine Clearance 71.25 ml/min; Globulin 2.8 g/dL (2.2-4.2); Glucose 102 mg/dL (74-106); Potassium 3.8 mmol/L (3.5-5.1); Protein, Total 5.8 g/dL (6.4-8.2); Sodium Level 138 mmol/L (136-145)
[2024-08-26] MEDS: Heparin Injection (Vial) 5,000 UNIT/ML VIAL 5000 UNIT SC ×2 (08:07→23:48)
[2024-08-26] MEDS: Metoprolol(XL)Succ 25 MG Tablet PO (08:08)
[2024-08-26] MEDS: amLODIPine 10 MG Tablet PO (08:08)
[2024-08-26] MEDS: Pantoprazole Sodium 40 MG Tablet PO (08:11)
[2024-08-26] MEDS: buPROPion (XL) 150 MG TABLET.XL PO (08:11)
[2024-08-26] MEDS: Sertraline 100 MG Tablet PO (08:12)
--- NOTE | 2024-08-26 12:31 | CASEMGMT ---
Social Work- NATALIA received a call from Zoey Cruz CM Direction Home. Zoey reports that pt has an aide three times per week, uses mom's meals, attends [place], and has services through [facility]. Zoey reports that pt needs to be up frequently or looses strength, but feels if she is encouraged to get up frequently, that pt will be safe to return home with aide services. Zoey requests that discharge paperwork be faxed to her at [phone]. NATALIA remains available to follow. ART Sarkar
--- NOTE | 2024-08-26 18:40 | PCM.PN.HOSP ---
Subjective Subjective Patient was seen and examined today, she does not want her diet advanced, she is still having some generalized abdominal pain. Objective Data Objective Data Vital Signs: Vital Signs Temp Pulse Resp BP Pulse Ox O2 Del Method 98.1 F 60 16 127/71 H 94 Room Air 08/26/24 07:39 08/26/24 08:08 08/26/24 07:39 08/26/24 07:39 08/26/24 07:43 08/26/24 07:43 Oxygen Delivery Method Room Air Weight: 98.3 kg Body Mass Index (BMI) 40.9 Intake & Output: Intake and Output for Last 24 Hours 08/24/24 08/25/24 08/26/24 23:59 23:59 23:59 Intake Total 2119 3377.5 / 3377.5 Balance 2119 3377.5 / 3377.5 Lab / Micro Data 08/26/24 04:56 08/26/24 04:56 Labs: Laboratory Results - last 24 hr 08/26/24 04:56: WBC 8.6, RBC 4.04 L, Hgb 11.2 L, Hct 33.1 L, MCV 81.9, MCH 27.7, MCHC 33.8, RDW Std Deviation 37.7, RDW Coeff of Janey 12.6, Plt Count 206, MPV 9.1, Immature Gran % (Auto) 0.700, Neut % (Auto) 75.8 H, Lymph % (Auto) 11.7 L, [place] % (Auto) 9.8, Eos % (Auto) 1.7, Baso % (Auto) 0.3, Absolute Neuts (auto) 6.5, Absolute Lymphs (auto) 1.01, Nucleated RBC % 0, Sodium 138, Potassium 3.8, Chloride 109 H, Carbon Dioxide 25.0, Anion Gap 4 L, BUN 12, Creatinine 0.64, Estim Creat Clear Calc 71.25, Est GFR (MDRD) Af Amer 118, Est GFR (MDRD) Non-Af 97, BUN/Creatinine Ratio 18.7, Glucose 102, Calcium 8.3 L, Total Bilirubin 0.90, AST 18, ALT 15, Alkaline Phosphatase 82, Total Protein 5.8 L, Albumin 3.0 L, Globulin 2.8, Albumin/Globulin Ratio 1.1 Physical Exam Narrative alert, oriented x3 and no apparent distress Constitutional Narrative: Patient has class III obesity General Appearance: cooperative, well kempt and well developed Orientation / Consciousness: awake, oriented to person, oriented to place and oriented to time HEENT normocephalic, head/scalp atraumatic, hearing grossly normal bilaterally and moist oral mucous membranes Eyes PERRL, EOMs intact bilaterally and conjunctivae normal Neck supple, no JVD, thyroid normal and no carotid bruits General: trachea midline Resp normal respiratory effort, no retractions, no use of accessory muscles and clear to auscultation bilaterally Auscultation: Negative for rales, rhonchi or wheezes Cardio regular rate, regular rhythm, S1 normal heart sound, S2 normal heart sound, no murmurs, no rub and no gallops GI normal to inspection, nondistended, normoactive bowel sounds, soft to palpation and non-distended GI Narrative: Patient has moderate abdominal tenderness across the mid abdomen to palpation, no rebound abdominal tenderness is noted Auscultation: hypoactive bowel sounds Extremity no clubbing, cyanosis or edema Skin no rashes or lesions noted General Skin Exam: no breakdown Neuro oriented x3, CN's II-XII intact bilaterally, moves all extremities, no focal motor deficits and no sensory deficits noted Sensorium / Orientation: awake and alert Speech: speech normal Psych affect normal Assessment & Plan Assessment/Plan (1) Recurrent pancreatitis: (2) Chronic pancreatitis: QUALIFIERS: Pancreatitis type: unspecified pancreatitis type Qualified Code(s): K86.1 - Other chronic pancreatitis PLAN: Plan 1. Recurrent pancreatitis-patient's diet will be remain as a full liquid diet for now, I will attempt to advance it tomorrow #2 essential hypertension-patient will remain on her home medications, they will be adjusted as necessary #3 chronic depression-patient is on Wellbutrin and Zoloft #4 class III obesity-complicates care, management, recovery, and prognosis Total clinical time spent by myself addressing patient's medical issues, reviewing all of her data, and collaborating with patient's care team: 35 minutes Charges/Coding Visit Charges Inpatient E&M: 90511 Subs Hosp L2
[2024-08-27 04:30] VITALS: BP 164/70; PULSE 62; RESP 16; TEMP 37; O2SAT 93
[2024-08-27] MEDS: Ondansetron 4 MG/2 ML Vial IV ×2 (04:35→21:30)
[2024-08-27] MEDS: HYDROmorphone 1 MG/ML Syringe IV ×4 (04:35→18:48)
[2024-08-27 08:00] VITALS: BP 131/81; PULSE 68; RESP 18; TEMP 36.6; O2SAT 93
[2024-08-27] MEDS: 0.9% Saline Lock 10 ML Syringe IV ×3 (08:13→18:49)
[2024-08-27] MEDS: Heparin Injection (Vial) 5,000 UNIT/ML VIAL 5000 UNIT SC ×2 (10:00→21:27)
[2024-08-27] MEDS: Sertraline 100 MG Tablet PO (10:00)
[2024-08-27 10:01] VITALS: PULSE 70
[2024-08-27] MEDS: Pantoprazole Sodium 40 MG Tablet PO (10:01)
[2024-08-27] MEDS: buPROPion (XL) 150 MG TABLET.XL PO (10:01)
[2024-08-27] MEDS: amLODIPine 10 MG Tablet PO (10:01)
[2024-08-27] MEDS: Metoprolol(XL)Succ 25 MG Tablet PO (10:01)
[2024-08-27 14:13] VITALS: BP 161/67; PULSE 63; RESP 16; TEMP 36.6; O2SAT 93
[2024-08-27 18:45] VITALS: BP 156/63; PULSE 60; RESP 18; TEMP 36.6; O2SAT 93
--- NOTE | 2024-08-27 19:02 | PCM.PN.HOSP ---
Subjective Subjective Patient was seen and examined today, patient is eating poorly, I told her that she must try to eat and I have advanced her diet. Patient still complains of abdominal pain. Objective Data Objective Data Vital Signs: Vital Signs Temp Pulse Resp BP Pulse Ox O2 Del Method 97.8 F 60 18 156/63 H 93 Room Air 08/27/24 18:45 08/27/24 18:45 08/27/24 18:45 08/27/24 18:45 08/27/24 18:45 08/27/24 18:45 Oxygen Delivery Method Room Air Weight: 98.3 kg Body Mass Index (BMI) 40.9 Intake & Output: Intake and Output for Last 24 Hours 08/25/24 08/26/24 08/27/24 23:59 23:59 23:59 Intake Total 2119 3377.5 / 3427.5 500 / 500 Balance 2119 3377.5 / 3427.5 500 / 500 Lab / Micro Data 08/26/24 04:56 08/26/24 04:56 Physical Exam Narrative alert, oriented x3 and no apparent distress Constitutional Narrative: Patient has class III obesity General Appearance: cooperative, well kempt and well developed Orientation / Consciousness: awake, oriented to person, oriented to place and oriented to time HEENT normocephalic, head/scalp atraumatic, hearing grossly normal bilaterally and moist oral mucous membranes Eyes PERRL, EOMs intact bilaterally and conjunctivae normal Neck supple, no JVD, thyroid normal and no carotid bruits General: trachea midline Resp normal respiratory effort, no retractions, no use of accessory muscles and clear to auscultation bilaterally Auscultation: Negative for rales, rhonchi or wheezes Cardio regular rate, regular rhythm, S1 normal heart sound, S2 normal heart sound, no murmurs, no rub and no gallops GI normal to inspection, nondistended, normoactive bowel sounds, soft to palpation and non-distended GI Narrative: Patient has moderate abdominal tenderness across the mid abdomen to palpation, no rebound abdominal tenderness is noted Auscultation: hypoactive bowel sounds Extremity no clubbing, cyanosis or edema Skin no rashes or lesions noted General Skin Exam: no breakdown Neuro oriented x3, CN's II-XII intact bilaterally, moves all extremities, no focal motor deficits and no sensory deficits noted Sensorium / Orientation: awake and alert Speech: speech normal Psych affect normal Assessment & Plan Assessment/Plan (1) Recurrent pancreatitis: PLAN: Plan 1. Recurrent pancreatitis-patient's diet will be advanced today, she will be reevaluated tomorrow for possible discharge #2 essential hypertension-patient will remain on her home medications, they will be adjusted as necessary #3 chronic depression-patient is on Wellbutrin and Zoloft #4 class III obesity-complicates care, management, recovery, and prognosis Total clinical time spent by myself addressing patient's medical issues, reviewing all of her data, and collaborating with patient's care team: 35 minutes Charges/Coding Visit Charges Inpatient E&M: 64682 Subs Hosp L2
[2024-08-27 21:22] VITALS: BP 157/66; PULSE 60; RESP 14; TEMP 36.8; O2SAT 93
[2024-08-27] MEDS: Acetaminophen 325 MG Tablet 650 MG PO (21:29)
[2024-08-28 03:44] VITALS: BP 155/70; PULSE 63; RESP 14; TEMP 36.7; O2SAT 96
[2024-08-28] MEDS: 0.9% Saline Lock 10 ML Syringe IV ×3 (03:49→10:01)
[2024-08-28] MEDS: HYDROmorphone 1 MG/ML Syringe IV (03:49)
[2024-08-28 08:05] VITALS: BP 150/64; PULSE 60; RESP 18; TEMP 36.8; O2SAT 93
[2024-08-28] MEDS: Ondansetron 4 MG/2 ML Vial IV (08:14)
[2024-08-28] MEDS: HYDROmorphone 0.5 MG/0.5 ML SYRINGE IV (10:00)
[2024-08-28 10:01] VITALS: PULSE 62
[2024-08-28] MEDS: Pantoprazole Sodium 40 MG Tablet PO (10:01)
[2024-08-28] MEDS: Heparin Injection (Vial) 5,000 UNIT/ML VIAL 5000 UNIT SC (10:01)
[2024-08-28] MEDS: Metoprolol(XL)Succ 25 MG Tablet PO (10:01)
[2024-08-28] MEDS: amLODIPine 10 MG Tablet PO (10:01)
[2024-08-28] MEDS: buPROPion (XL) 150 MG TABLET.XL PO (10:01)
[2024-08-28] MEDS: Sertraline 100 MG Tablet PO (10:02)
--- NOTE | 2024-08-28 10:44 | CASEMGMT ---
Addendum entered by Montserrat Fan 08/28/24 13:06: JESSA ARORA into pt room per request of pt, pt asks for transportation home to be obtained by [employer] in w/c. Updated escrow secretary who will schedule this. Original Note: JESSA ARORA into pt room, pt lying in bed in no distress. Pt states that she feels safe to go home when it is time. She denies any needs other than her aide services to resume. JESSA ARORA to follow.
--- NOTE | 2024-08-28 12:49 | DCINST_ITS ---
Discharge Instructions Diet Discharge Diet: No restrictions DC O2, CPAP, BIPAP needs Home O2 Discharge instructions: No Dressing / Incision Discharge Activity: Return to Normal Activity Weight Bearing Status: Full weight bearing Follow Up Care Test Results: Test results from this visit will be discussed in further detail at your follow- up appointment, if applicable. Discharge Plan Admission Admit Date/Time: 08/25/24 11:11 Primary Reason for Your Visit: Recurrent pancreatitis Attending Provider: Ranjeet Escobar Primary Care Provider: Mauro Hastings Discharge Orders/Prescriptions Prescriptions: New oxycodone 5 mg tablet 5 mg PO Q4H PRN (Reason: pain) 5 Days Qty: 30 0RF Rx Instructions: one or two every four hours as needed for pain, may take with 650 mg of Tylenol if desired Continued Zenpep 40,000-126,000- 168,000 unit capsule,delayed release(DR/EC) See Rx Instructions PO .COMPLEX Qty: 320 11RF Rx Instructions: take 1-2 with snacks and 2-3 with meals calcium carbonate-vitamin D3 600 mg-10 mcg (400 unit) tablet 1 tab PO DAILY sertraline 50 mg tablet 100 mg PO DAILY bupropion HCl 150 mg tablet extended release 24 hr 150 mg PO DAILY Actemra ACTPen 162 mg/0.9 mL pen injector 162 mg SUBCUT Q7D Patient Comments: takes on Mondays ergocalciferol (vitamin D2) 1,250 mcg (50,000 unit) Capsule 1,250 mcg PO TH potassium chloride 20 mEq tablet extended release 20 meq PO DAILY 7 Days Qty: 7 0RF omeprazole 20 MG capsule 40 mg PO DAILY 30 Days Qty: 0 0RF amlodipine 10 mg Tablet 10 mg PO DAILY Qty: 0 0RF scopolamine base 1 mg over 3 days Patch 3 Day 1 patch transdermal Q3D PRN (Reason: nausea) metoprolol succinate 25 mg tablet extended release 24 hr 25 mg PO DAILY Qty: 90 3RF Referrals / Follow Up: Milan Massey DO [Med Staff - Active Staff] - Within 1 Month Mauro Hastings MD [Primary Care Provider] - Disposition Disposition (needs filled in before D/C Order can be placed): Home, Self Care
--- NOTE | 2024-08-28 13:04 | DS.PCM_ITS ---
Providers Date of Admission: 08/25/24 Date of Discharge: 08/28/24 Primary Care Physician: Dr. Mauro Hastings MD Reason For Visit: RECURRENT PANCREATITIS Diagnosis Discharge Diagnosis (1) Recurrent pancreatitis: Status: Acute Plan 1. Recurrent pancreatitis-patient's diet will be advanced today, she will be reevaluated tomorrow for possible discharge #2 essential hypertension-patient will remain on her home medications, they will be adjusted as necessary #3 chronic depression-patient is on Wellbutrin and Zoloft #4 class III obesity-complicates care, management, recovery, and prognosis Total clinical time spent by myself addressing patient's medical issues, reviewing all of her data, and collaborating with patient's care team: 35 minutes Medications at Discharge Home Medications calcium 600 mg (as carbonate)-vitamin D3 10 mcg (400 unit) tablet 1 tab PO DAILY SUPPLEMENT 10/16/21 metoprolol succinate 25 mg tablet,extended release 24 hr 25 mg PO DAILY BLOOD PRESSURE #90 tabs 01/08/23 bupropion HCl 150 mg 24 hr tablet, extended release 150 mg PO DAILY DEPRESSION 02/04/23 ergocalciferol (vitamin D2) 1,250 mcg (50,000 unit) capsule 1,250 mcg PO TH 02/04/23 sertraline 50 mg tablet 100 mg PO DAILY DEPRESSION 02/04/23 tocilizumab 162 mg/0.9 mL subcutaneous pen injector (Actemra ACTPen) 162 mg subcut Q7D RHEUMATOID ARTHRITIS 02/04/23 potassium chloride 20 mEq tablet,extended release 20 meq PO DAILY SUPPLEMENT 7 days #7 tabs 02/11/23 omeprazole 20 mg capsule,delayed release 40 mg (2 x 20 mg) PO DAILY ACID REFLUX 30 days #0 caps 02/23/23 amlodipine 10 mg tablet 10 mg PO DAILY #0 tabs 03/02/23 [id number]-bydexeq 40,000-126,000-168,000 unit capsule, delay rel (Zenpep) See Rx Instructions PO .COMPLEX #320 caps 09/02/23 scopolamine base 1 mg over 3 days transdermal patch 1 patch transdermal Q3D PRN nausea 08/25/24 oxycodone 5 mg tablet 5 mg PO Q4H PRN pain 5 days #30 tabs 08/28/24 Hospital Course Operations None Procedures None Summary of Care Provided Minutes Spent on Discharge: 31 Hospital Course: This 69-year-old white female was seen in the emergency room and [facility] with chief complaint of diffuse abdominal pain. Patient had a history of pancreatitis in the past. Workup in the emergency room included a CT of the abdomen and pelvis which showed acute on chronic pancreatitis, patient's lipase was elevated. Patient was admitted to [place] [address] and given IV fluids and IV analgesics, her abdominal pain did not completely resolve but was under control with pain medication at the time of her discharge. I had a long talk with the patient's daughter by phone, it appears that the patient is noncompliant with her follow-up visits to gastroenterology. Patient's daughter also states the patient does not follow through with a number of things she is supposed to do. On 08/28/2024, patient was seen and examined: On examination she appeared in good health and spirits, she does not appear to be in any distress. Vital signs as documented. Skin warm and dry and without overt rashes. Neck without JVD, thyroid appears normal, trachea is midline, neck is supple. Lungs clear, normal air movement was noted. Heart exam notable for regular rhythm, normal sounds and absence of murmurs, rubs or gallops. Abdomen unremarkable and without evidence of organomegaly, masses, or abdominal aortic enlargement, bowel sounds are present in all 4 quadrants, no abdominal tenderness was noted. Extremities nonedematous, no cyanosis was noted, no clubbing was noted. Neuro: Cranial nerves II through XII are grossly intact, no focal motor deficits were noted, sensation to light touch and pinprick is intact, motor exam 5/5 throughout. Psych: Patient is alert and oriented x3, she does not appear anxious or depressed, she does not appear agitated. Patient was discharged home in stable condition on 08/28/2024 Weight / BMI Weight Weight: 98.3 kg Body Mass Index (BMI) 40.9 ABG / Lab / Microbiology Data 08/26/24 04:56 08/26/24 04:56 D/C Instructions Discharge Diet: No restrictions Weight Bearing Status: Full weight bearing DC O2, CPAP, BIPAP Needs Home O2 Discharge instructions: No Meaningful Use Info Meaningful Use Meaningful Use Diagnoses (Choose all that apply): None applicable Ischemic Stroke Statin Dosing Therapy Reference: STATIN DOSE THERAPY REFERENCE: * Patients > 75 years receive moderate or high dose statin therapy. * Patients 75 years or YOUNGER should receive HIGH intensity statin dose unless contraindicated. You will be required to document reason for non-treatment if statin daily dose does not meet guidelines. HIGH DOSE STATIN THERAPY DAILY Atorvastatin > than or = to 40 mg Rosuvastatin > than or = to 20 mg Amlodipine + Atorvastatin > than or = to 2.5/40 mg Ezetimibe + Simvastatin 10/80 mg Simvastatin 80mg Discharge Plan Admission Admit Date/Time: 08/25/24 11:11 Primary Reason for Your Visit: Recurrent pancreatitis Attending Provider: Ranjeet Escobar Primary Care Provider: Mauro Hastings Discharge Orders/Prescriptions Prescriptions: New oxycodone 5 mg tablet 5 mg PO Q4H PRN (Reason: pain) 5 Days Qty: 30 0RF Rx Instructions: one or two every four hours as needed for pain, may take with 650 mg of Tylenol if desired Continued Zenpep 40,000-126,000- 168,000 unit capsule,delayed release(DR/EC) See Rx Instructions PO .COMPLEX Qty: 320 11RF Rx Instructions: take 1-2 with snacks and 2-3 with meals calcium carbonate-vitamin D3 600 mg-10 mcg (400 unit) tablet 1 tab PO DAILY sertraline 50 mg tablet 100 mg PO DAILY bupropion HCl 150 mg tablet extended release 24 hr 150 mg PO DAILY Actemra ACTPen 162 mg/0.9 mL pen injector 162 mg SUBCUT Q7D Patient Comments: takes on Mondays ergocalciferol (vitamin D2) 1,250 mcg (50,000 unit) Capsule 1,250 mcg PO TH potassium chloride 20 mEq tablet extended release 20 meq PO DAILY 7 Days Qty: 7 0RF omeprazole 20 MG capsule 40 mg PO DAILY 30 Days Qty: 0 0RF amlodipine 10 mg Tablet 10 mg PO DAILY Qty: 0 0RF scopolamine base 1 mg over 3 days Patch 3 Day 1 patch transdermal Q3D PRN (Reason: nausea) metoprolol succinate 25 mg tablet extended release 24 hr 25 mg PO DAILY Qty: 90 3RF Referrals / Follow Up: Milan Massey DO [Med Staff - Active Staff] - Within 1 Month Mauro Hastings MD [Primary Care Provider] - Disposition Disposition (needs filled in before D/C Order can be placed): Home, Self Care Charges/Coding Visit Charges Inpatient E&M: 47581 Disch Hosp >30min
[2024-08-28 13:30] VITALS: BP 148/66; PULSE 61; RESP 18; TEMP 36.8; O2SAT 93
[2024-08-28] MEDS: oxyCODONE 5 MG Tablet PO (13:52)
--- NOTE | 2024-08-28 14:14 | CASEMGMT ---
Social Work- NATALIA faxed discharge paperwork to [facility] MA[facility] FISHER remains available to follow. ART Sarkar
== END 2024-08-28 14:44 | disposition home or self-care (01) | DRG 439 ==
LOC: ED 09:04 → MS3 14:07
PROVIDERS: Admitting Provider Internal Medicine; Emergency Provider Surgery; PCP Family Medicine; Visit Provider Internal Medicine
DX: K85.90 Acute pancreatitis without necrosis or infection, unspecified (principal); Z68.41 Body mass index [BMI] 40.0-44.9, adult; E66.813 Obesity, class 3; I10 Essential (primary) hypertension; F32.A Depression, unspecified; E78.00 Pure hypercholesterolemia, unspecified; E86.0 Dehydration; K21.9 Gastro-esophageal reflux disease without esophagitis; F41.9 Anxiety disorder, unspecified; M19.90 Unspecified osteoarthritis, unspecified site; E87.8 Other disorders of electrolyte and fluid balance, not elsewhere classified; Z90.710 Acquired absence of both cervix and uterus; Z80.0 Family history of malignant neoplasm of digestive organs; Z87.891 Personal history of nicotine dependence; Z90.49 Acquired absence of other specified parts of digestive tract; Z86.0100 Personal history of colon polyps, unspecified; Z79.899 Other long term (current) drug therapy
CPT/HCPCS: 36415; 74177; 80053; 81001; 83690; 85025; 99285; Q9967; A4216; J2405

== ENCOUNTER 2025-08-06 16:49 | Emergency (ER) | payer MEDICARE, MEDICAID, SELFPAY ==
[2025-08-06] VITALS (13 sets, daily range): BP systolic 107–157; BP diastolic 50–95; PULSE 62–86; RESP 18; TEMP 36.8–37.7; O2SAT 86–100; BMI 40.5
--- NOTE | 2025-08-06 17:16 | EX.ED.DYSGE1 ---
HPI History of Present Illness Chief Complaint: General Illness [facility] Medical History Recurrent pancreatitis Chronic pancreatitis Morbid obesity Vision changes GCA (giant cell arteritis) Anemia Chronic pain Osteoporosis Anxiety and depression Lung nodules Pure hypercholesterolemia Thoracic aortic aneurysm without rupture Essential hypertension Pancreatitis GERD (gastroesophageal reflux disease) Morbid obesity Colon polyps Former smoker Poor dentition Osteoarthritis Multiple thyroid nodules Home Medications ?Medication ?Instructions ?Recorded ?Last Taken ?Type calcium 600 mg (as 1 tab PO DAILY SUPPLEMENT 10/16/21 02/21/23 History carbonate)-vitamin D3 10 mcg (400 unit) tablet metoprolol succinate 25 mg 25 mg PO DAILY BLOOD PRESSURE #90 01/08/23 02/21/23 Rx tablet,extended release 24 hr tabs bupropion HCl 150 mg 24 hr tablet, 150 mg PO DAILY DEPRESSION 02/04/23 02/21/23 History extended release ergocalciferol (vitamin D2) 1,250 1,250 mcg PO TH 02/04/23 02/21/23 History mcg (50,000 unit) capsule sertraline 50 mg tablet 100 mg PO DAILY DEPRESSION 02/04/23 02/21/23 History tocilizumab 162 mg/0.9 mL 162 mg subcut Q7D RHEUMATOID 02/04/23 08/17/24 History subcutaneous pen injector (Actemra ARTHRITIS ACTPen) potassium chloride 20 mEq 20 meq PO DAILY SUPPLEMENT 7 days 02/11/23 02/21/23 Rx tablet,extended release #7 tabs omeprazole 20 mg capsule,delayed 40 mg (2 x 20 mg) PO DAILY ACID 02/23/23 02/21/23 Rx release REFLUX 30 days #0 caps amlodipine 10 mg tablet 10 mg PO DAILY #0 tabs 03/02/23 Unknown Rx scopolamine base 1 mg over 3 days 1 patch transdermal Q3D PRN nausea 08/25/24 Unknown History transdermal patch oxycodone 5 mg tablet 5 mg PO Q4H PRN pain 5 days #30 08/28/24 Unknown Rx tabs [id number](pork) See Rx Instructions PO .COMPLEX 10/15/24 Unknown Rx 40,000-126,000-168k unit #320 caps capsule,del rel (Zenpep) ciprofloxacin HCl 500 mg tablet 500 mg PO BID #14 TABLETS 08/06/25 Unknown Rx metronidazole 500 mg tablet 500 mg PO BID 7 days #14 tabs 08/06/25 Unknown Rx ondansetron 4 mg disintegrating 4 mg PO Q8H PRN PRN Nausea #10 tabs 08/06/25 Unknown Rx tablet Allergy/AdvReac Type Severity Reaction Status Date / Time No Known Allergies Allergy Verified 08/06/25 16:53 Family History Mother Colon cancer Father Cancer Lung Sister Breast cancer Brother Cancer Lung Surgical History History of total hysterectomy History of carpal tunnel surgery History of cholecystectomy Social History household members: none Smoking Status: Former smoker alcohol intake: never substance use type: does not use caffeine: Yes Type: coffee Number of servings: 2 EXAM Physical Exam Const Vital Signs: 08/06/25 16:49 08/06/25 16:52 08/06/25 17:01 Temperature 98.2 F 98.2 F Temperature Source Oral Oral Pulse Rate 62 62 Respiratory Rate 18 18 Respiratory Effort Normal Respiratory Pattern Normal Blood Pressure 131/95 H 131/95 H Blood Pressure Mean 107 107 Pulse Ox 100 100 Oxygen Delivery Method Room Air Room Air Oxygen Flow Rate (L/min) 08/06/25 17:52 08/06/25 18:00 08/06/25 19:00 Temperature 98.5 F 98.5 F 99.8 F H Temperature Source Oral Oral Oral Pulse Rate 77 82 77 Respiratory Rate 18 18 18 Respiratory Effort Respiratory Pattern Blood Pressure 154/61 H 154/61 H 157/61 H Blood Pressure Mean 92 92 93 Pulse Ox 97 99 94 Oxygen Delivery Method Room Air Room Air Room Air Oxygen Flow Rate (L/min) 08/06/25 19:31 08/06/25 19:32 08/06/25 20:00 Temperature 99.8 F H Temperature Source Oral Pulse Rate 79 Respiratory Rate 18 Respiratory Effort Respiratory Pattern Blood Pressure 120/50 L Blood Pressure Mean 73 Pulse Ox 86 99 98 Oxygen Delivery Method Room Air Nasal Cannula Nasal Cannula Oxygen Flow Rate (L/min) 1.5 1.5 08/06/25 21:00 08/06/25 22:00 08/06/25 22:52 Temperature 98.6 F 98.6 F 98.6 F Temperature Source Oral Oral Pulse Rate 78 79 86 Respiratory Rate 18 18 18 Respiratory Effort Respiratory Pattern Blood Pressure 118/51 L 107/50 L 125/86 H Blood Pressure Mean 73 69 99 Pulse Ox 98 92 92 Oxygen Delivery Method Nasal Cannula Room Air Oxygen Flow Rate (L/min) 1.5 08/06/25 23:00 Temperature Temperature Source Pulse Rate 80 Respiratory Rate 18 Respiratory Effort Respiratory Pattern Blood Pressure 121/52 H Blood Pressure Mean 75 Pulse Ox 92 Oxygen Delivery Method Room Air Oxygen Flow Rate (L/min) [facility] [place] [facility] [place] Narr[place] Medical decision making narrative: HISTORY OF PRESENT ILLNESS: Chief complaint: General Illness 69-year-old female presents with concern for nausea vomiting diarrhea. No she has not felt well for last 3 days. She has history of hypertension, hiatal hernia, hyperlipidemia, chronic pancreatitis, hypertension, GERD morbid obesity. She states notes RLQ abdominal pain. She also complains of nausea vomiting diarrhea. No sick contacts. Recent travel antibiotics noted. Denies fever. Denies chest pain or shortness of breath. Denies urinary complaints REVIEW OF SYSTEMS: Pertinent positives: Nausea vomiting diarrhea Pertinent negatives: Chest pain, shortness of breath, syncope PHYSICAL EXAM: Nursing triage notes reviewed, Vital signs reviewed Constitutional: please see mdm HENT: MMM Eyes: Pupils equal round and reactive to light, Extraocular muscles intact Neck: No stridor, no JVD, full neck ROM Lungs: Clear to auscultation, No wheezing or rales. No increased work of breathing, no conversational dyspnea, no accessory muscle use, no nasal flaring. No respiratory distress noted Heart: Regular rate and rhythm, No murmurs, No rubs and No gallops, 2+ distal pulses (radial, femoral, posterior tibial) in all extremities Abdomen: Soft, there is no tenderness, rigidity, rebound or guarding, no obvious peritoneal signs, no palpable pulsatile abdominal masses, no auscultated abdominal bruit : No CVAT Extremities: No edema Neuro: No new focal neurological deficits, cranial nerves II through XII intact, 5/5 strength in all present extremities. Intact sensation to light touch in all present extremities, 2+ reflexes bilateral patella tendons. Skin: No rash or lesions noted MEDICAL DECISION MAKING: Chief Complaint: please see HPI External records reviewed: Reviewed CT scan abdomen pelvis from August 2024 showed acute on chronic pancreatitis Factors affecting care: as per HPI Social determinants of health: none History obtained from others: none Consults: none [facility] [place] Narrative: The patient was initially hemodynamically stable, afebrile and nontoxic-appearing. Exam with right lower quad TTP but no peritoneal signs. I considered the following differential diagnosis: AAA, small bowel obstruction, abdominal perforation, appendicitis, pancreatitis, hepatobiliary pathology (acute cholecystitis), mesenteric ischemia, pathology (ie nephrolithiasis, pyelonephritis). I obtained broad lab and imaging work to further determine if the patient was suffering from a life-threatening etiology. Initially resuscitated patient with 1 L normal saline, gave morphine for pain Zofran for nausea and Toradol for additional anti-inflammatory effect ALL IMAGES (IF OBTAINED) HAVE BEEN PERSONALLY REVIEWED AND INTERPRETED BY MYSELF. EKG with normal sinus rhythm rate of 79, left ax deviation, prolonged QT interval at 499, no STEMI CBC with no leukocytosis, mild anemia but no thrombocytopenia BMP with hypokalemia 2.6, no acute kidney injury, no JUDE Lactate is wnl indicating no end-organ hypoperfusion and/or hypoxia. Lipase is wnl indicating no pancreatic inflammation. Urinalysis consistent with UTI CT scan shows sigmoiditis but no acute surgical pathology no perforation or abscess I have personally reviewed the patient's chest x-ray. Chest x-ray is unremarkable for pulmonary edema, pneumothorax, pneumonia or focal cardiopulmonary abnormality. Potassium was replaced with p.o. potassium Repeat abdominal exam remained benign. Of note the patient able to tolerate p.o. after Zofran here. Of note patient was transient hypoxic here likely owing to her somnolence and likely CHRISTOPHER. Patient is ambulated was able maintain oxygen level greater than 88%. Patient is appropriate for discharge home if she can tolerate p.o. including p.o. potassium replacement. She was prescribed ciprofloxacin and Flagyl given UTI and sigmoiditis. Will give GI follow-up. The patient and/or family, caregivers express understanding. The patient and/or family, caregivers agrees with the plan. Shared decision making: I will have a discussion with the patient and or visitors regarding risk/benefits of further testing or admission. They will be made aware of of the risk/benefits inherent in this decision they will be given the opportunity to voice understanding. Total critical care time today provided was at least 0 minutes. This excludes separately billable procedures. Critical care time (if documented) is secondary to the patient having high probability of clinically significant/life threatening deterioration in the patient's condition which required my urgent intervention. Impression: 1. Acute abdominal pain 2. Sigmoiditis 3. UTI Dispo: Discharge home This note was generated with [employer] dictation software. It may contain incorrect words, spelling, and punctuation that were not noted in review of the chart prior to signing. Lab Data Labs: Laboratory Results - last 24 hr 08/06/25 08/06/25 08/06/25 17:50 18:32 21:10 WBC 5.5 RBC 3.69 L Hgb 10.2 L Hct 30.8 L MCV 83.5 MCH 27.6 MCHC 33.1 RDW Std Deviation 43.6 RDW Coeff of Janey 14.2 Plt Count 239 MPV 9.9 Immature Gran % (Auto) 0.400 Neut % (Auto) 83.6 H Lymph % (Auto) 7.3 L Kleberg % (Auto) 8.2 Eos % (Auto) 0.0 Baso % (Auto) 0.5 Absolute Neuts (auto) 4.6 Absolute Lymphs (auto) 0.40 L Nucleated RBC % 0 Sodium 143 Potassium 2.6 L* Chloride 103 Carbon Dioxide 28.9 Anion Gap 11 BUN 23 H Creatinine 0.96 Estim Creat Clear Calc 59.02 Est GFR (MDRD) Non-Af 64 BUN/Creatinine Ratio 23.8 H Glucose 115 H Calcium 8.5 Total Bilirubin 0.83 AST 26 ALT 12 Alkaline Phosphatase 100 Troponin T High Sens 31 H Total Protein 5.7 L Albumin 3.2 L Globulin 2.5 Albumin/Globulin Ratio 1.3 Lipase 32 Urine Color Yellow Urine Clarity Turbid Urine pH 5.0 Ur Specific Bend 1.025 Urine Protein 30 H Urine Glucose (UA) Normal Urine Ketones 5 H Urine Occult Blood 25 H Urine Nitrite Positive H Urine Bilirubin 1 H Urine Urobilinogen 1 H Ur Leukocyte Esterase 500 H Urine RBC 5-10 SEEN Urine WBC >100 SEEN Ur Squamous Epith Cells 5-10 SEEN Ur Transition Epith Cell 0-5 SEEN Amorphous Sediment 3+ Urine Bacteria 4+ Urine Mucus 0 SEEN Radiography Diagnostic Testing: Clinical Impression(s) from Imaging Studies Abdomen/Pelvis CT 08/06/25 18:10 IMPRESSION: 1. Scattered sigmoid diverticulosis with wall thickening concerning for sigmoiditis. 2. Moderate hepatic steatosis with additional focal fatty infiltration along the falciform ligament. Reading Location: [facility] Chest X-Ray 08/06/25 21:10 IMPRESSION: No Acute Findings. Reading Location: [facility] Discharge Plan Triage Chief Complaint: General Illness ED Provider: Kartik Roe Dx/Rx/DC Orders Instructions: Diverticulitis Dc, ED UTIs Women Prescriptions: New ciprofloxacin HCl 500 mg tablet 500 mg PO BID Qty: 14 0RF metronidazole 500 mg tablet 500 mg PO BID 7 Days Qty: 14 0RF ondansetron 4 mg tablet,disintegrating 4 mg PO Q8H PRN PRN (Reason: Nausea) Qty: 10 0RF No Action calcium carbonate-vitamin D3 600 mg-10 mcg (400 unit) tablet 1 tab PO DAILY sertraline 50 mg tablet 100 mg PO DAILY bupropion HCl 150 mg tablet extended release 24 hr 150 mg PO DAILY Actemra ACTPen 162 mg/0.9 mL pen injector 162 mg SUBCUT Q7D Patient Comments: takes on Mondays ergocalciferol (vitamin D2) 1,250 mcg (50,000 unit) Capsule 1,250 mcg PO TH potassium chloride 20 mEq tablet extended release 20 meq PO DAILY 7 Days Qty: 7 0RF omeprazole 20 MG capsule 40 mg PO DAILY 30 Days Qty: 0 0RF amlodipine 10 mg Tablet 10 mg PO DAILY Qty: 0 0RF scopolamine base 1 mg over 3 days Patch 3 Day 1 patch transdermal Q3D PRN (Reason: nausea) oxycodone 5 mg tablet 5 mg PO Q4H PRN (Reason: pain) 5 Days Qty: 30 0RF Rx Instructions: one or two every four hours as needed for pain, may take with 650 mg of Tylenol if desired metoprolol succinate 25 mg tablet extended release 24 hr 25 mg PO DAILY Qty: 90 3RF Zenpep 40,000-126,000- 168,000 unit capsule,delayed release(DR/EC) See Rx Instructions PO .COMPLEX Qty: 320 11RF Rx Instructions: take 1-2 with snacks and 2-3 with meals Primary Care Provider: Mauro Hastings Referrals: Mauro Hastings MD [Primary Care Provider, Medical] Activity Restrictions/Additional Instructions: Thank you for trusting us with your care today! Your labs images consistent with diverticulitis/sigmoiditis as well as UTI. I prescribed antibiotics to treat your condition Please take Zofran as needed for nausea vomiting control. Please take Tylenol (2 pills, 650 mg), ibuprofen (2 pills, 400 mg) every 6 hours as needed for pain and fever control. Please return to the emergency department if your symptoms change or worsen. Please follow with your primary care physician for further outpatient evaluation and management. Print Language: Surinamese Disposition Disposition: Home, Self Care
--- OUTSIDE RECORDS SUMMARY | 2025-08-06 17:26 | XMS RPT_ITS | CCD ---
Author Organization [facility] Care Team Providers Care Air Intercept Controller Name Role Phone KEVIN HOUSTON Unavailable Unavailable KEVIN HOUSTON Unavailable Unavailable Mauro Krishnamurthy Unavailable Unavailable Dr. Mauro Krishnamurthy Primary Care Provider Dr. Marci Diamond Emergency Provider Dr. Veena Laboy Admit Provider Dr. Leonidas Amador Attending Provider Unavailable Dr. Leonidas Amador Other Provider Unavailable Mauro Krishnamurthy MD Primary Care Provider Mauro Krishnamurthy MD Primary Care Provider Mauro Krishnamurthy MD Primary Care Provider Mauro Krishnamurthy MD Primary Care Provider Dr. Mauro Krishnamurthy Primary Care Provider Dr. Navneet Anthony Emergency Provider Dr. Tony Shine Admit Provider Dr. Tony Shine Attending Provider Dr. Tony Shine Other Provider Dr. Samra Agee Attending Provider Dr. Samra Agee Other Provider Dr. Kyler Fox Emergency Provider Dr. Wilbur Wolff Admit Provider Dr. Wilbur Wolff Attending Provider Dr. Wilbur Wolff Other Provider Dr. Araceli Branham Admit Provider Dr. Araceli Branham Other Provider Dr. Anny Leach Attending Provider Dr. Anny Leach Other Provider Dr. Milan Massey Attending Provider Venkata, Dr. Wade Primary Care Provider Dr. Navneet Anthony Emergency Provider Dr. Tony Shine Admit Provider Dr. Tony Shine Other Provider Dr. Samra Agee Attending Provider Dr. Samra Agee Other Provider Dr. Kyler Fox Emergency Provider Dr. Wilbur Wolff Admit Provider Dr. Wilbur Wolff Attending Provider New, Dr. Bowles Other Provider Dr. Araceli Branham Admit Provider Dr. Araceli Branham Other Provider Dr. Anny Leach Attending Provider Dr. Anny Leach Other Provider Dr. Anny Leach Referring Provider Dr. Milan Massey Attending Provider Tran JOB COACH/JOB DEVELOPER, JOB COACH/JOB DEVELOPER-C Terri Attending Provider Dr. Vin Gore Attending Provider Dr. Mauro Krishnamurthy Primary Care Provider Venkata, Dr. Wade Primary Care Provider Dr. Kyler Fox Emergency Provider Dr. Wilbur Wolff Admit Provider Dr. Wilbur Wolff Attending Provider Dr. Wilbur Wolff Other Provider Dr. Araceli Branham Admit Provider Dr. Araceli Branham Other Provider Dr. Anny Leach Attending Provider Dr. Anny Leach Other Provider Dr. Anny Leach Referring Provider Dr. Milan Massey Attending Provider Tran JOB COACH/JOB DEVELOPER, JOB COACH/JOB DEVELOPER-C Terri Attending Provider Dr. Vin Gore Attending Provider Dr. Mauro Krishnamurthy Primary Care Provider Dr. Kyler Fox Emergency Provider Dr. Araceli Branham Admit Provider Dr. Araceli Branham Other Provider Dr. Anny Leach Attending Provider Dr. Anny Leach Other Provider Dr. Anny Leach Referring Provider Dr. Milan Massey Attending Provider Mauro Krishnamurthy MD Primary Care Provider Haagen DYE COLORIST DYER.Belle MARC Unavailable Suppan DYE COLORIST DYER.GROUNDS/MAINTENANCE SPECIALIST, Patriiza A Unavailable Suppan DYE COLORIST DYER.GROUNDS/MAINTENANCE SPECIALIST, Patrizia A Unavailable [phone] Suppan DYE COLORIST DYER.GROUNDS/MAINTENANCE SPECIALIST, Patrizia A Unavailable [phone] Mariajose Duval RN Unavailable Mauro Krishnamurthy Primary Care Unavailable Ranjeet Escobar Consulting Unavailable Ranjete Escobar Attending Unavailable Ranjeet Escobar Admitting Unavailable Ranjeet Escobar Admitting Unavailable Mauro Krishnamurthy Primary Care Unavailable Ranjeet Escobar Attending Unavailable Milan Massey Attending Unavailable Mauro Krishnamurthy Primary Care Unavailable Mauro Krishnamurthy Referring Unavailable BLANCHE ROGERS Referring Unavaila ble MAURO KRISHNAMURTHY Primary Care Unavailable BLANCHE ROGERS Attending Unavaila MAURO Flores Primary Care Unavailable MAURO KRISHNAMURTHY Referring Unavailable MAURO KRISHNAMURTHY Primary Care Unavailable MAURO KRISHNAMURTHY Referring Unavailable MAURO KRISHNAMURTHY Primary Care Unavailable MAURO KRISHNAMURTHY Referring Unavailable MAURO KRISHNAMURTHY Primary Care Unavailable MICHELLE MOORE Attending Unavailable PATRIZIA PABON Referring Unavailable MAURO KRISHNAMURTHY Primary Care Unavailable MICHELLE MOORE Referring Unavailable MAURO KRISHNAMURTHY Primary Care Unavailable PATRIZIA PABON Attending Unavailable MAURO KRISHNAMURTHY Primary Care Unavailable BLANCHE ROGERS Attending Unavaila ble Medications Current Medications Medication Drug Class(es) Dates Sig (Normalized) Sig (Original) amLODIPine 10 mg oral tablet (20 sources) Dihydropyridine Calcium Channel Mitul Start: 03-02-2023 End: 06-26-2025 take 1 tablet by mouth once daily amLODIPine (NORVASC) 10 mg tablet Take 1 tablet by mouth once daily. 90 tablet 3 06/26/2024 06/26/2025 Active Comment on above: Take 10 mg by mouth once daily. Take 1 tablet by aidan th once daily. amylase [id number] unt / lipase 60731 unt / protease 134654 unt delayed release oral capsule (20 sources) Start: 10-22-2023 ZENPEP 40,000-126,000- 168,000 unit delayed release capsule 10/22/2023 Active Start: 07-08-2023 End: 07-28-2024 take 3 capsules by mouth three times daily at mealtime CREON 24,000-76,000 -120,000 unit delayed release capsule Take 3 capsules by mouth three times a day with meals. 810 capsule 3 07/29/2023 07/28/2024 Active Start: 06-13-2023 End: 07-08-2023 CREON 24,000-76,000 -120,000 unit delayed release capsule Start: 02-23-2023 Start: 02-23-2023 take [id number] ca psules by mouth three times daily at mealtime Fypuoo-Wbhbvaob-Sdqwgnc (Creon) 36,000-114,000- 180,000 unit capsule,delayed release(DR/EC) Active 2 CAP PO THREE TIMES A DAY 180 February 23, 2023 12:00am administer with meals and/or snacks Comment on above: Take 3 capsules by m out three times a day with meals. ARIPiprazole 5 mg oral tablet (20 sources) Atypical Antipsychotic Start: End: take 5 mg by mouth once daily Aripiprazole Active 5 MG PO DAILY October 16, 2021 1:00am take 7.5 mg by mouth once daily ARIPiprazole (ABILIFY) 5 mg tablet Take 7.5 mg by mouth once daily. 0 Active Comment on above: Take 7.5 mg by mouth once daily. Take 5 mg by mouth o nce daily. 24 hr buPROPion hydrochloride 150 mg extended release oral tablet (20 sources) Aminoketone Start: 02-07-2023 buPROPion XL (WELLBUTRIN XL) 150 mg 24 hr tablet 02/07/2023 Active Start: 02-04-2023 take 1 tablet by aidan th once daily buPROPion XL (WELLBUTRIN XL) 150 mg 24 hr tablet Take 150 mg by mouth once daily. 02/07/2023 Active Start: 10-16-2021 End: 11-01-2021 Start: 03-29-2021 End: 02-18-2023 take 1 tablet by mouth twice daily buPROPion (WELLBUTRIN) 75 mg tablet Take 75 mg by mouth twice daily. 03/29/2021 02/18/2023 Discontinued Comment on above: Take 75 mg by mouth twice daily. 1 ml denosumab 60 mg/ml prefilled syringe (20 sources) RANK Ligand Inhibitor Start: 03-05-2025 End: 02-28-2026 denosumab 60 mg injection (PROLIA) Start: 09-27-2023 End: 09-20-2024 denosumab 60 mg injection (P ROLIA) Start: 08-22-2022 End: 08-17-2023 denosumab 60 mg injection (P ROLIA) Start: 08-12-2021 End: 08-06-2022 denosumab 60 mg injection (P ROLIA) ergocalciferol 1.25 mg oral capsule (20 sources) Provitamin D2 Compound Start: 08-06-2023 End: 03-30-2025 take 1 capsule by mouth every week ergocalciferol 50,000 unit capsule (VITAMIN D2, DRISDOL) Take 1 capsule by mouth one time a week. 12 capsule 1 03/30/2025 Active Start: 02-04-2023 Start: 02-04-2023 Ergocalciferol (Vitamin D2) Active 1250 MCG PO TH February 04, 2023 12:00am Start: 01-17-2023 End: 07-08-2023 take 1 capsule by mouth every week ergocalciferol 50,000 unit capsule (VITAMIN D2, DRISDOL) Take 1 capsule by mouth one time a week. 12 capsule 0 07/08/2023 Active Comment on above: Take [address] [facility] one time a week. ibuprofen 600 mg oral tablet (20 sources) Nonsteroidal Anti-inflammatory Drug ibuprofen (MOTRIN ORAL) Take 600 mg by mouth as needed. Active ibuprofen (MOTRI N ORAL) Take by mouth as needed. Active ibuprofen (MOTRI N ORAL) Take by mouth as needed. 0 Active Comment on above: Take by mouth as nee ded. Incontinence Pants, Reusable misc (20 sources) Start: 06-01-2019 Incontinence Pants, Reusable misc Indications: Recurrent pancreatitis 5 Units continuous. 6 Each 2 06/01/2019 Active Comment on above: 5 Units continuous. LORazepam 0.5 mg oral tablet (20 sources) Benzodiazepine Start: 03-02-2023 Start: 02-04-2023 End: 06-19-2023 take 0.5 mg by mouth once daily Lorazepam Discontinued 0.5 MG PO DAILY February 04, 2023 12:00am February 22, 2023 4:51pm Start: 02-04-2023 End: 02-22-2023 Comment on above: Take 0.5 mg by mouth once daily as needed. metoclopramide 5 mg oral tablet (7 sources) Dopamine-2 Receptor Antagonist Start: 3 24 hr metoprolol succinate 25 mg extended release oral tablet (20 sources) beta-Adrenergic Mitul Start: 9 End: 6 take 1 tablet by mouth once daily metoprolol succinate ER (TOPROL XL) 25 mg 24 hr tablet Take 1 tablet by mouth once daily. 90 tablet 3 01/05/2025 01/05/2026 Active Comment on above: Take 1 tablet by aidan once daily. nystatin [id number] unt/ml topical cream (20 sources) Polyene Antifungal Start: Start: 02-04-2023 Nystatin Activ e 1 APPLIC TOPICAL TWICE A DAY February 04, 2023 12:00am Start: 06-08-2019 End: 02-18-2023 nystatin (MYCOSTATIN) cream Indications: Dermatitis Apply 1 application to affected area twice daily. 45 g 05/24/2021 Active Comment on above: Apply 1 application to affected area twice daily. oxyCODONE hydrochloride 5 mg oral tablet (7 sources) Opioid Agonist Start: 03-02-20 pantoprazole 40 mg delayed release oral tablet (20 sources) Proton Pump Inhibitor Start: 06-13-20 End: 06-26-20 take 1 tablet by mouth once daily pantoprazole DR (PROTONIX) 40 mg tablet Take 1 tablet by mouth once daily. 90 tablet 3 06/26/2024 06/26/2025 Active Comment on above: Take 40 mg by mouth once daily. Take 1 tablet by aidan th once daily. microencapsulated potassium chloride 20 meq extended release oral tablet (20 sources) Start: 02-07-20 End: 07-04-20 take 1 tablet by mouth once daily potassium chloride ER (KLOR-CON) 20 mEq tablet Take 1 tablet by mouth once daily. 30 tablet 5 01/05/2025 07/04/2025 Active Start: 02-11-2023 End: 01-25-2024 take 1 tablet by mouth once daily potassium chloride ER (KLOR-CON) 20 mEq tablet Take 1 tablet by mouth once daily. 30 tablet 5 07/29/2023 01/25/2024 Active Start: 02-11-2023 Comment on above: Taking 40mEq in the AM and 20mEq at bedtime Take 1 tablet by aidan th once daily. Taking 40mEq in the AM and 20mEq at bedtime Take 1 tablet by aidan th once daily. sertraline 100 mg oral tablet (20 sources) Serotonin Reuptake Inhibitor Start: 09-22-2024 take 1 tablet by mouth once daily sertraline (ZOLOFT) 100 mg tablet Take 100 mg by mouth once daily. 09/22/2024 Active Start: 02-04-2023 End: 03-05-2025 take 1 tablet by mouth once daily, then take 3 tablets by mouth once daily sertraline (ZOLOFT) 50 mg tablet Take 50 mg by mouth once daily. Taking 150 mg Daily 06/13/2023 03/05/2025 Discontinued (Duplicate Entry) Start: 10-03-2016 End: 11-01-2021 End: 06-19-2023 take 2 tablets by mouth once daily sertraline 100 mg tablet Take 200 mg by mouth once daily. 06/19/2023 Discontinued (Other) Comment on above: Take 200 mg by mouth once daily. Take 50 mg by mouth once daily. Take 50 mg by mouth once daily. Taking 150 mg Daily Shower Chair with Back (20 sources) Start: 06-21-2023 Shower Chair with Back once daily. Use as directed 1 Each 06/21/2023 Active Start: 06-21-2023 Shower Chair w ith Back once daily. Use as directed 1 Each 0 06/21/2023 Active Comment on above: once daily. Use as d irected 0.9 ml tocilizumab 180 mg/ml auto-injector (20 sources) Interleukin-6 Receptor Antagonist Start: 01-18-20 End: 07-24-20 inject 162 mg by subcutaneous injection every week tocilizumab (ACTEMRA ACTPEN) 162 mg/0.9 mL Inject 162mg (1 pen) under the skin one time each week. 4 Each 07/24/2024 Active Comment on above: Inject 162mg (1 pen) under the skin one time each week. Completed/Discontinued Medications Medication Drug Class(es) Dates Sig (Normalized) Sig (Original) acetaminophen 500 mg oral tablet (20 sources) Start: 11-01-2021 End: 02-22-2023 Start: 11-01-2021 End: 02-22-2023 take 1000 mg by mouth every six hours as needed Acetaminophen Discontinued 1000 MG PO EVERY 6 HOURS NEEDED 0 November 01, 2021 12:00am February 22, 2023 4:54pm Comment on above: Take 1 tablet by aidan th every 6 hours as needed for pain. benzonatate 100 mg oral capsule (20 sources) Non-narcotic Antitussive Start: 3 End: 3 take 1 capsule by mouth three times daily as needed for cough benzonatate (TESSALON PERLES) 100 mg capsule Indications: Bronchitis Take 1 capsule by mouth three times daily as needed for cough. 30 capsule 12/12/2022 06/19/2023 Discontinued (Other) Comment on above: Take [address] [facility] three times daily as needed for cough. bisacodyl 5 mg delayed release oral tablet (20 sources) Stimulant Laxative Start: 1 End: 3 Bisacodyl (DULCOLAX) 5 mg tab Indications: Dysphagia, unspecified type , GERD without esophagitis Use as directed for Miralax / Gatorade Bowel Prep Kit 4 tablet 06/22/2021 06/19/2023 Discontinued (Other) Start: 02-17-2020 End: 06-19-2021 Bisacodyl (DULCOLAX) 5 mg ta b Indications: History of colonic polyps Use as directed for Miralax / Gatorade Bowel Prep Kit 4 tablet 02/17/2020 06/19/2021 Discontinued Comment on above: Use as directed for Miralax / Gatorade Bowel Prep Kit calcium carbonate 1500 mg / cholecalciferol 0.01 mg oral tablet (20 sources) Vitamin D Start: 3 End: 6 take 1 tablet by mouth once daily calcium carbonate 600 mg-cholecalciferol 400 units 600 mg-10 mcg (400 unit) tab Take 1 tablet by mouth once daily. 90 tablet 3 05/29/2024 04/27/2025 Discontinued Start: 06-13-2023 End: 07-01-2023 calcium carbonate 600 mg-cholecalciferol 400 units 600 mg-10 mcg (400 unit) tab Start: 07-18-2021 End: 01-17-2023 take 1 tablet by mouth once daily calcium carbonate 600 mg-cholecalciferol 400 units (CALCIUM 600 + D) 600 mg-10 mcg (400 unit) tab Indications: Age-related osteoporosis without current pathological fracture Take 1 tablet by mouth once daily. 90 tablet 3 06/28/2022 01/17/2023 Discontinued Comment on above: [facility] citalopram 20 mg oral tablet (20 sources) Serotonin Reuptake Inhibitor Start: 11-01-2021 End: 02-18-2023 Comment on above: Take 20 mg by mouth once daily. doxycycline monohydrate 100 mg oral tablet (7 sources) Tetracycline-class Drug Start: 12-12-2022 End: 12-22-2022 take 1 tablet by mouth twice daily doxycycline monohydrate 100 mg tablet Indications: Bronchitis Take 1 tablet by mouth twice daily for 10 days. 20 tablet 12/12/2022 12/22/2022 Start: 04-25-2022 End: 05-05-2022 take 1 tablet by mouth twice daily doxycycline monohydrate 100 mg tablet Indications: Cough, unspecified type Take 1 tablet by mouth twice daily for 10 days. 20 tablet 0 04/25/2022 05/05/2022 Active Comment on above: Take 1 tablet by aidan th twice daily for 10 days. lisinopril 10 mg oral tablet (20 sources) Angiotensin Converting Enzyme Inhibitor Start: 02-11-2023 End: 05-26-2024 Start: 02-11-2023 End: 03-02-2023 take 20 mg by mouth once daily Lisinopril Discontinued 20 MG PO DAILY February 22, 2023 12:00am March 02, 2023 2:21pm Start: 10-22-2018 End: 05-25-2019 Comment on above: Take 10 mg by mouth once daily. 2 tabs in the morning and 1 at night Take 1 tablet by aidan th once daily. 2 tabs in the morning and 1 at night melatonin 3 mg oral tablet (20 sources) Start: 02-04-2023 End: 02-22-2023 Start: 02-04-2023 End: 02-22-2023 take 3 mg by mouth at bedtime Melatonin Discontinued 3 MG PO AT BEDTIME February 04, 2023 12:00am February 22, 2023 4:51pm Start: 10-16-2021 take 3 mg by mouth at bedtime Melatonin Active 3 MG PO AT BEDTIME October 16, 2021 1:00am End: 02-18-2023 melatonin 3 mg capsules Take 3 mg by mouth. At night 02/18/2023 Discontinued (Other) Comment on above: Take 3 mg by mouth. At night olopatadine 1 mg/ml ophthalmic solution (12 sources) Histamine-1 Receptor Inhibitor Start: 3 End: 3 take 1 drop(s) into the eye(s) twice daily olopatadine (PATANOL) 0.1 % ophthalmic solution Indications: Allergic conjunctivitis of both eyes Use 1 Drop in both eyes twice daily for 30 days. 5 mL 11/22/2022 12/22/2022 Start: 11-22-2022 End: 12-22-2022 take 1 drop(s) into the eye(s) twice daily olopatadine (PATANOL) 0.1 % ophthalmic solution Indications: Allergic conjunctivitis of both eyes Use 1 Drop in both eyes twice daily for 30 days. 5 mL 0 11/22/2022 12/22/2022 Active Comment on above: Use 1 Drop in both e yes twice daily for 30 days. omeprazole 20 mg delayed release oral capsule (20 sources) Proton Pump Inhibitor Start: End: take 1 capsule by mouth once daily omeprazole (PRILOSEC) 20 mg capsule Take 1 capsule by mouth once daily. 30 capsule 11 02/03/2020 12/29/2020 Discontinued Start: 10-25-2016 End: 02-23-2023 Comment on above: Take 1 capsule by [facility] once daily. perflutren lipid microspheres 1.3 mL in NaCl (PF) 0.9% 10 mL injection (DEFINITY) (20 sources) Start: 10-08-2022 End: 01-07-2024 perflutren lipid microspheres 1.3 mL in NaCl (PF) 0.9% 10 mL injection (DEFINITY) polyethylene glycol 3350 20470 mg powder for oral solution (20 sources) Osmotic Laxative Start: 02-11-2023 End: 02-22-2023 Start: 06-22-2021 End: 06-19-2023 polyethylene glycol 3350 (GA RALAX, GLYCOLAX) 17 gram/dose powder Indications: Dysphagia, unspecified type , GERD without esophagitis Use as directed for Miralax / Gatorade Bowel Prep Kit 238 g 06/22/2021 06/19/2023 Discontinued (Other) Start: 02-17-2020 End: 06-19-2021 polyethylene glycol 3350 (GA RALAX, GLYCOLAX) 17 gram/dose powder Indications: History of colonic polyps Use as directed for Miralax / Gatorade Bowel Prep Kit 238 g 02/17/2020 06/19/2021 Discontinued Comment on above: Use as directed for Miralax / Gatorade Bowel Prep Kit predniSONE 5 mg oral tablet (20 sources) Start: 02-22-2023 End: 03-02-2023 Start: 02-13-2023 End: 02-18-2023 predniSONE (DELTASONE) 5 mg tablet 40 mg a day x1 week, then 35 mg a day x1 week, then 30 mg a day x1 week, then 25 mg a day x1 week, then 20 mg a day x1 week 210 tablet 0 02/13/2023 02/18/2023 Discontinued (Other) Start: 02-04-2023 End: 02-22-2023 Start: 01-28-2023 End: 02-13-2023 take 3 tablets by mouth once daily predniSONE (DELTASONE) 20 mg tablet Take 3 tablets by mouth once daily. 42 tablet 0 01/28/2023 02/13/2023 Discontinued Start: 12-21-2022 End: 01-19-2023 take 3 tablets by mouth once daily predniSONE (DELTASONE) 5 mg tablet Take 3 tablets by mouth once daily for 21 days. 63 tablet 12/21/2022 01/09/2023 Discontinued Start: 11-09-2022 End: 12-21-2022 take 5 tablets by mouth once daily predniSONE (DELTASONE) 2.5 mg tablet Take 5 tablets by mouth once daily. 150 tablet 12/07/2022 12/21/2022 Discontinued Start: 10-18-2022 End: 11-09-2022 predniSONE (DELTASONE) 5 mg tablet 15 mg a day x2 weeks, then blood work, then rheumatology will call you with additional dosing 60 tablet 0 10/18/2022 11/09/2022 Discontinued Start: 09-20-2022 End: 10-18-2022 predniSONE (DELTASONE) 10 mg tablet 40 mg a day x1 week, then 30 mg a day x1 week, then 20 mg a day x1 week, then 15 mg a day until rheumatology follow-up 90 tablet 0 09/20/2022 10/18/2022 Discontinued Start: 08-27-2022 take [address] [facility] once daily predniSONE (DELTASONE) 20 mg tablet Take 3 tablets by mouth once daily. 90 tablet 0 08/27/2022 Active Start: 08-02-2022 End: 10-31-2022 take 1 tablet by mouth once daily predniSONE (DELTASONE) 5 mg tablet Take 1 tablet by mouth once daily. 30 tablet 2 08/02/2022 08/27/2022 Discontinued Start: 07-04-2022 End: 08-03-2022 take 1 tablet by mouth once daily predniSONE (DELTASONE) 10 mg tablet Indications: Polyarthralgia , Elevated sed rate , Morning stiffness of joints , Neck pain , Hip pain Take 1 tablet by mouth once daily. 30 tablet 0 07/04/2022 08/02/2022 Discontinued Start: 05-16-2022 End: 06-15-2022 take 1 tablet by mouth once daily predniSONE (DELTASONE) 10 mg tablet Indications: PMR (polymyalgia rheumatica) ([facility]) Take 1 tablet by mouth once daily. 30 tablet 0 05/16/2022 06/15/2022 Active Start: 05-10-2022 End: 05-15-2022 take 1 tablet by mouth once daily at mealtime predniSONE (DELTASONE) 20 mg tablet Indications: Elevated sed rate , Polyarthralgia Take 1 tablet by mouth once daily for 5 days. Take daily with food. 5 tablet 0 05/10/2022 05/15/2022 Comment on above: Take 1 tablet by aidan once daily. Take 1 tablet by aidan once daily for 5 days. Take daily with food. Take [address] [facility] once daily. 40 mg a day x1 week, then 30 mg a day x1 week, then 20 mg a day x1 week, then 15 mg a day until rheumatology follow-up 15 mg a day x2 weeks , then blood work, then rheumatology will call you with additional dosing Take 5 pills a day x 2 weeks, then 4 pills a day until follow-up with rheumatology. Repeat blood work in 1 month. Take 5 tablets by mo [facility] once daily. Take [address] [facility] once daily for 21 days. Take [address] [facility] once daily for 10 days. 40 mg a day x1 week, then 35 mg a day x1 week, then 30 mg a day x1 week, then 25 mg a day x1 week, then 20 mg a day x1 week psyllium 3400 mg powder for oral suspension (20 sources) Start: 11-09-19 End: 06-19-20 take 3.4 g by mouth once daily psyllium husk (METAMUCIL) 3.4 gram/5.4 gram powd Take 3.4 g by mouth once daily. In 8 oz of water 660 g 3 11/08/2021 06/19/2023 Discontinued (Other) Comment on above: Take 3.4 g by mouth once daily. In 8 oz of water QUEtiapine 50 mg oral tablet (20 sources) Atypical Antipsychotic Start: 09-05-19 End: 06-19-20 take 1 tablet by mouth once daily at bedtime QUEtiapine (SEROQUEL) 50 mg tablet Take 50 mg by mouth daily at bedtime. 09/05/2017 06/19/2023 Discontinued (Other) Comment on above: Take 50 mg by mouth daily at bedtime. 72 hr scopolamine 0.0139 mg/hr transdermal system (20 sources) Anticholinergic Start: 03-02-20 End: 03-05-20 scopolamine (TRANSDERM-SCOP) patch 1.5 mg/72 hr (delivers 1 mg over 3 days) Indications: Dizziness Apply 1 Patch as directed every 72 hours. 24 Patch 04/03/2024 03/05/2025 Discontinued (Course of therapy completed) Comment on above: Apply 1 Patch as dir ected every 72 hours. simvastatin 40 mg oral tablet (20 sources) HMG-CoA Reductase Inhibitor Start: 04-24-20 End: 05-14-20 Start: 04-24-2019 End: 05-14-2019 take 40 mg by mouth at bedtime Simvastatin Discontinue d 40 MG PO AT BEDTIME April 24, 2019 12:00am May 14, 2019 1:56pm Start: 10-20-2018 End: 04-21-2019 Start: 10-20-2018 End: 04-21-2019 take 40 mg by mouth at bedtime Simvastatin Discontinue d 40 MG PO AT BEDTIME October 20, 2018 12:00am April 21, 2019 10:39am 125 ml sodium chloride 9 mg/ ml prefilled syringe (20 sources) Start: 10-08-2022 End: 01-07-2024 sodium chloride 0.9 % (flush ) 10 mL (BD POSIFLUSH) Problems Active Problems Problem Classification Problem Date Documented Da te Episodic/Chronic Administrative/social admission (2 sources) Counseling procedure with explicit context; 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: [Vaccine counseling] Episodic Anxiety disorders (15 sources) Mixed anxiety and depressive disorder; 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: [Anxiety disorder, unspecified] 05-20-2019 Chronic Aortic; peripheral; and visceral artery aneurysms (20 sources) Thoracic aortic aneurysm without rupture; 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: [Thoracic aortic aneurysm, without rupture] Onset: 01-28-2012 Resolved: 09-12-2022 01-28-2012 Chronic Chronic obstructive pulmonary disease and bronchiectasis (2 sources) Bronchitis; 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: [Bronchitis, not specified as acute or chronic] Episodic Deficiency and other anemia (2 sources) Anemia; 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: [Anemia, unspecified] 06-27-2023 Episodic Diseases of white blood cells (1 source) Leukopenia; 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: [Decreased white blood cell count, unspecified] 07-30-2023 Chronic Disorders of lipid metabolism (20 sources) Pure hypercholesterolemia; 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: [Pure hypercholesterolemia, unspecified] Onset: 04-09-2013 04-09-2013 Chronic Essential hypertension (20 sources) Essential hypertension; 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: [Essential (primary) hypertension] Onset: 11-28-2016 Resolved: 11-28-2016 Chronic Genitourinary symptoms and ill-defined conditions (3 sources) Microscopic hematuria; 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: [Other microscopic hematuria] Episodic Headache; including migraine (1 source) Headache; 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: [Headache above the eye region] Episodic Immunity disorders (1 source) Immunosuppression; 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: [Immunodeficiency, unspecified] 05-22-2024 Chronic Immunizations and screening for infectious disease (5 sources) Needs influenza immunization; 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: [Encounter for immunization] Episodic Inflammation; infection of eye (except that caused by tuberculosis or sexually transmitteddisease) (1 source) Allergic conjunctivitis of bilateral eyes; 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: [Acute atopic conjunctivitis, bilateral] Episodic Malaise and fatigue (20 sources) Asthenia; 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: [Other malaise] Episodic Mood disorders (20 sources) Depressive disorder; 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: [Depression] Onset: 10-11-2016 Resolved: 06-26-2023 Chronic Nausea and vomiting (16 sources) Nausea; 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: [Nausea] Episodic Osteoarthritis (20 sources) Osteoarthritis of right knee joint; 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: [Unilateral primary osteoarthritis, right knee] Onset: 06-14-2016 06-14-2016 Chronic Osteoporosis (20 sources) Senile osteoporosis; 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: [Age-related osteoporosis without current pathological fracture] Onset: 07-18-2021 07-18-2021 Chronic Other aftercare (1 source) Long-term current use of drug therapy; 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: [Other senior care (current) drug therapy] Episodic Other aftercare (6 sources) Long-term current use of systemic steroid; 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: [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] Episodic Other circulatory disease (1 source) Orthostatic hypotension; 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: [Orthostatic hypotension] Episodic Other connective tissue disease (20 sources) Polymyalgia rheumatica; 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: [Polymyalgia rheumatica] Onset: 08-23-2022 Chronic Other connective tissue disease (1 source) Polymyalgia; 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: [Polymyalgia rheumatica] Chronic Other connective tissue disease (1 source) Polymyalgia rheumatica; 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: [PMR (polymyalgia rheumatica) (HCC)] Onset: 08-23-2022 Chronic Other connective tissue disease (3 sources) Pain in right lower limb; 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: [Pain in right leg] Episodic Other connective tissue disease (1 source) Bilateral pain in upper arms; 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: [Pain in right upper arm] Episodic Other diseases of kidney and ureters (1 source) Renal impairment; 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: [Disorder of kidney and ureter, unspecified] 06-27-2023 Episodic Other endocrine disorders (20 sources) Hypoglycemia; 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: [Hypoglycemia, unspecified] Onset: 10-11-2016 02-18-2023 Chronic Other female genital disorders (20 sources) Complex atypical endometrial hyperplasia; 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: [Endometrial intraepithelial neoplasia [EIN]] Onset: 03-31-2013 08-07-2021 Chronic Other gastrointestinal disorders (7 sources) Diarrhea; 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: [Diarrhea, unspecified] 02-25-2023 Episodic Other gastrointestinal disorders (7 sources) Diarrhea, unspecified; 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: [Diarrhea] 03-02-2023 Episodic Other hematologic conditions (3 sources) ESR raised; 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: [Elevated erythrocyte sedimentation rate] Episodic Other lower respiratory disease (1 source) Dyspnea on exertion; 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: [Other forms of dyspnea] Episodic Other nervous system disorders (20 sources) Carpal tunnel syndrome of left wrist; 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: [Carpal tunnel syndrome, left upper limb] Onset: 10-29-2017 12-26-2017 Chronic Other non-traumatic joint disorders (20 sources) Pain in right knee; 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: [Pain in joint, lower leg] Onset: 06-14-2016 06-14-2016 Episodic Other non-traumatic joint disorders (2 sources) Multiple joint pain; 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: [Pain in unspecified joint] Episodic Other non-traumatic joint disorders (1 source) Morning stiffness - joint; 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: [Stiffness of unspecified joint, not elsewhere classified] Episodic Other non-traumatic joint disorders (2 sources) Hip pain; 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: [Pain in unspecified hip] Episodic Other nutritional; endocrine; and metabolic disorders (15 sources) Morbid obesity; 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: [Morbid (severe) obesity due to excess calories] 04-24-2019 Chronic Other nutritional; endocrine; and metabolic disorders (20 sources) Body mass index 40+ - severely obese; 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: [Morbid (severe) obesity due to excess calories] Onset: 04-10-2021 04-10-2021 Chronic Other nutritional; endocrine; and metabolic disorders (20 sources) Hypophosphatemia; 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: [Other disorders of phosphorus metabolism] Onset: 03-02-2023 02-25-2023 Chronic Other nutritional; endocrine; and metabolic disorders (7 sources) Other disorders of phosphorus metabolism; 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: [Disorders of phosphorus metabolism] 03-02-2023 Chronic Other nutritional; endocrine; and metabolic disorders (1 source) Body mass index (BMI) 40.0-44.9, adult; 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: [Body mass index (BMI) 40.0-44.9, adult (HCC)] Onset: 05-31-2025 Chronic Other nutritional; endocrine; and metabolic disorders (1 source) Excessive thirst; 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: [Polydipsia] Episodic Other screening for suspected conditions (not mental disorders or infectious disease) (13 sources) Patient encounter status; 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: [Encounter for other screening for malignant neoplasm of breast] Episodic Pancreatic disorders (not diabetes) (20 sources) Recurrent pancreatitis; 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: [Other chronic pancreatitis] Onset: 03-02-2023 02-18-2023 Chronic Residual codes; unclassified (1 source) Edema; 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: [Edema, unspecified] Episodic Spondylosis; intervertebral disc disorders; other back problems (3 sources) Neck pain; 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: [Cervicalgia] Episodic Systemic lupus erythematosus and connective tissue disorders (20 sources) Temporal arteritis; 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: [Other giant cell arteritis] Onset: 01-17-2023 02-04-2023 Chronic Thyroid disorders (20 sources) Non-toxic multinodular goiter; 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: [Nontoxic multinodular goiter] Onset: 11-28-2011 01-19-2021 Chronic Unclassified (1 source) Obesity, Class III, BMI 40-49.9 (morbid obesity) (HCC); 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: [Obesity, Class III, BMI 40-49.9 (morbid obesity) (HCC)] Onset: 04-10-2021 Past or Other Problems Problem Classification Problem Date Documented Da te Episodic/Chronic Abdominal pain (20 sources) Abdominal pain; 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: [Unspecified abdominal pain] Onset: 7 Resolved: 4 02-18-2023 Episodic Acute and unspecified renal failure (20 sources) Injury of kidney; 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: [Acute kidney failure, unspecified] Onset: 3 02-04-2023 Episodic Cardiac and circulatory congenital anomalies (20 sources) Aneurysm of aortic root; 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: [Congenital aneurysm of aorta] Onset: 2 Resolved: 3 09-12-2022 Chronic Conditions associated with dizziness or vertigo (20 sources) Benign paroxysmal positional vertigo; 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: [Benign paroxysmal vertigo, unspecified ear] Onset: 3 Episodic Disorders of teeth and jaw (20 sources) Tooth problem; 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: [Disorder of teeth and supporting structures, unspecified] Onset: 3 02-18-2023 Episodic Esophageal disorders (20 sources) Gastroesophageal reflux disease; 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: [Gastro-esophageal reflux disease without esophagitis] Onset: 3 Resolved: 4 Chronic Fluid and electrolyte disorders (20 sources) Dehydration; 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: [Dehydration] Onset: 7 Resolved: 3 Episodic Other and unspecified benign neoplasm (20 sources) History of polyp of colon; 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: [Personal history of colonic polyps] Onset: 6 09-25-2021 Episodic Other and unspecified benign neoplasm (20 sources) Polyp of colon; 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: [Polyp of colon] Onset: 3 02-18-2023 Episodic Other circulatory disease (20 sources) Orthostatic hypotension; 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: [Orthostatic hypotension] Onset: 3 11-15-2021 Episodic Other connective tissue disease (20 sources) Swelling of lower limb; 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: [Other specified soft tissue disorders] Onset: 3 Episodic Other connective tissue disease (20 sources) Muscle weakness; 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: [Muscle weakness (generalized)] Onset: 7 02-18-2023 Episodic Other disorders of stomach and duodenum (20 sources) Nonulcer dyspepsia; 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: [Functional dyspepsia] Onset: 7 02-18-2023 Episodic Other gastrointestinal disorders (20 sources) Dysphagia; 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: [Dysphagia, unspecified] Onset: 2 09-25-2021 Episodic Other gastrointestinal disorders (20 sources) Constipation; 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: [Constipation, unspecified] Onset: 7 02-18-2023 Episodic Other lower respiratory disease (20 sources) Multiple nodules of lung; 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: [Other nonspecific abnormal finding of lung field] Resolved: 4 11-18-2020 Episodic Other lower respiratory disease (20 sources) Dyspnea; 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: [Shortness of breath] Onset: 3 Resolved: 3 12-12-2022 Episodic Other lower respiratory disease (20 sources) Cough; 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: [Cough] Onset: 7 Resolved: 3 02-18-2023 Episodic Pancreatic disorders (not diabetes) (20 sources) Acute recurrent pancreatitis ; 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: [Acute pancreatitis without necrosis or infection, unspecified] Onset: 7 Resolved: 3 10-22-2016 Episodic Screening and history of mental health and substance abuse codes (20 sources) Ex-smoker; 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: [Personal history of nicotine dependence] Onset: 3 02-18-2023 Episodic Unclassified (1 source) Patient encounter status 01-05-2025 Urinary tract infections (20 sources) Urinary tract infectious disease; 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: [Urinary tract infection, site not specified] Onset: 3 Episodic Results Test Name Value Interpretation Reference Range Facility OV 05-31-2025 CNOV Office Visit (ORTHWS ) ----- AUGUSTINE PENA ([id number]) 1955 F Date Time Provider Department 05/31/25 11:00 AM MICHELLE MOORE During your visit today, we recorded the following information about you: Dee Dee Jacobs MA 06/04/2025 9:48 AM Signed AMB ROOMING INTAKE FLOWSHEET DATA Pain Pain Location: Knee-Right Description: Throbbing, Sharp Duration Amount of Time: (ongoing) Frequency: Continuous Intervention/Comfort measure: Other: See comment ([employer]) Michelle Moore PA-C 06/10/2025 1:35 PM Addendum Michelle Moore PA-C Department of Orthopaedics [facility] [address] [facility] [id number] Dept: [phone] Dept May 31, 2025 CHIEF COMPLAINT: Pain of the Right Knee Augustine is a 69-year-old female with a history of severe right knee arthritis, presenting for evaluation of a bubble on the back of the right knee. Right Knee Pain: - Noticed a bubble on the back of the right knee. - Long history of right knee issues, including severe arthritis. - Uses a walker or cane at home due to knee pain and balance issues. - Feels crooked and has poor balance. - Reports a crunchy sensation in the knee and difficulty straightening it. - Ice provides some relief. - History of cortisone injections in 2016 with some relief. - Interested in trying injections again to relieve pain and improve mobility. - Engages in stretching exercises. Right Leg Fracture: - Believes the fracture never healed properly, contributing to current knee issues. Pancreatitis: - Multiple hospitalizations for pancreatitis. - Gallbladder removed by Dr. Juárez, but still experiences digestive issues. - Unable to take certain medications for arthritis pain due to digestive issues; only takes acetaminophen occasionally. ASSESSMENT: M17.11 Primary osteoarthritis of right knee Z68.41 Body mass index (BMI) 40.0-44.9, adult ([facility]) PLAN: 1. Primary osteoarthritis of right knee (M17.11) - Chronic, severe right knee OA with worsening joint space narrowing and subluxation on X-rays compared to 2022. 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 - Discussed that MRI would not alter management given severity of OA. - Discussed treatment options: cortisone injection, gel injection, and total knee replacement. - Administered cortisone injection today; may repeat in 91 days if effective. - If cortisone not effective, may try gel injection after 1 week. - Advised use of ice and heat for symptomatic relief. - Discussed need for optimization of medical conditions and weight loss prior to considering knee replacement. - Encouraged patient to discuss surgical risk with GI and other specialists. - Discussed potential benefits and limitations of injections and surgery; patient expressed understanding. 2. Body mass index (BMI) 40.0-44.9, adult (HCC) (Z68.41) - BMI 44; discussed need to reduce BMI to <40 to meet surgical criteria for knee replacement. - Encouraged weight loss and optimization of medical conditions prior to surgery. Ms. Augustine Pena was advised as to contrast therapies and/or to take analgesics/anti-inflammat ories as needed and all contraindications were reviewed. OBJECTIVE: Ms. Augustine Pena is a pleasant 69 year old in no apparent distress. Gen:LMP 06/17/2016 nl development, obese, no deformities ENT: Normocephalic, normal hearing, moist mucosa CV: Pulses:DP/PT= 2+ and symmetric, capillary refill < 2 secs, no peripheral edema/varicosities Skin: no rash, bruising or lesions. Good turgor. Psych: cooperative and appropriate, alert and oriented x 3, good mood and affect. Musculoskeletal: KNEE EXAM: Right: Alignment: Fixed Valgus Range of motion is 15 degrees in extension and 80 degrees of flexion. Extension La-20 degrees Pain with ROM: Yes Effusion: Moderate Tender to the palpation of Pes anserine bursa, Patellar tendon, Posterior Knee, Medial femoral condyle, Lateral femoral condyle, Medial joint line, and Lateral joint line Pain with patellar compression: Yes Stability: Anterior/Posterior stable and Varus/Valgus stable Neurovascular Status: Sensation Intact, Moves foot and ankle up AND down, and 2+ dorsalis pedis In addition to the comprehensive evaluation, assessment and plan outlined above, and as a distinct and separate element to the visit today, separate from weight loss discussion , we have made the determination to proceed with an injection to aid in the management of the patient's condition. We discussed the risks, benefits, alternatives and expected outcomes of this injection in detail, and the patient agreed to proceed. The procedure was performed as detailed below. Large Joint Arthro/Inj 05/31/2025 1:11 PM Large Joint Arthro/Inj: R knee joint 05/31/2025 1:34 PM The procedure site was prepped in the usual st (more content not included)... Normal [facility] XR KNEE 4V AP/PA BOTH+LAT/ME R RTon 05-31-2025 XR KNEE 4V AP/PA BOTH+LAT/ARMANDO RT * * *Final Report* * * DATE OF EXAM: May 31 2025 11:42AM [id number] - XR KNEE 4V AP/PA BOTH+LAT/ARMANDO RT / PROCEDURE REASON: Right knee pain, unspecified chronicity * * * * Physician Interpretation * * * * EXAMINATION: XR KNEE 4V AP/PA BOTH+LAT/ARMANDO RT HISTORY: PT STATES RIGHT KNEE PAIN Right knee pain, unspecified chronicity . TECHNIQUE: XR KNEE 4V AP/PA BOTH+LAT/ARMANDO RT Laterality: RIGHT Number of different views (projections): 4 M: XB_1 COMPARISON: 12/21/2022 RESULT: Severe narrowing in the right medial compartment with subluxation laterally of the tibia and genu varus deformity. Moderate lateral compartment osteoarthritis with maintained patellofemoral compartment. Small to moderate right knee joint effusion. No acute fracture or dislocation. There are no bony erosions. IMPRESSION: Advanced right knee degenerative change. Carbide Grinder: PSCB Transcribe Date/Time: Jun 03 2025 5:51P Dictated by : JEMMA FARR MD This examination was interpreted and the report reviewed and electronically signed by: JEMMA FARR MD on Jun 03 2025 5:52PM EST [id number] Normal [facility] CNOVon 03-05-2025 CNOV Office Visit (FAMPWS ) ----- AUGUSTINE PENA ([id number]) 1955 F Date Time Provider Department 03/05/25 1:40 PM PATRIZIA PABON During your visit today, we recorded the following information about you: Pulse Blood pressure Weight 60/minute 127/77 107 kg Patrizia Pabon APRN.CNP 03/05/2025 2:51 PM Signed Chief Reason For Appointment No chief complaint on file. Augustine Pena is a 69 year old female who presents for annual exam. Last office visit date: 05/15/2024 Accompanied By self only Have you had any critical events, hospital stays, ER visits, surgeries or procedures since your last visit here in our office: No Specialists/Other Healthcare Providers Seen: Patient Care Team: Mauro Krishnamurthy MD as PCP - General (Family Medicine) Belle Neumann APRN.CNP as Information Systems Architect (Family Medicine) Patrizia Pabon APRN.CNP as Information Systems Architect (Family Medicine) Concerns today: Needs to get back into scheduling her Prolia shots HPI Needs to get Prolia set up[ Active Problems ACTIVE PROBLEM LIST Hypophosphatemia - 03/02/2023 Chronic Pancreatitis (Hcc) - 03/02/2023 Benign Paroxysmal Positional Vertigo - 02/18/2023 Dehydration - 02/18/2023 Disorder of Tooth - 02/18/2023 Former Smoker - 02/18/2023 Injury of Kidney - 02/18/2023 Orthostatic Hypotension - 02/18/2023 Polyp of Colon - 02/18/2023 Swelling of Lower Extremity - 02/18/2023 Urinary Tract Infection - 02/18/2023 Giant Cell Arteritis (Hcc) - 01/17/2023 Osteoarthritis - 11/07/2022 Pmr (Polymyalgia Rheumatica) (Hcc) - 08/23/2022 Dysphagia - 09/25/2021 Age-Related Osteoporosis Without Current Pathological Fracture - 07/18/2021 Obesity, Class III, BMI >= 40 - 04/10/2021 Carpal Tunnel Syndrome, Left - 10/29/2017 Comment: Added automatically from request for surgery [id number] Essential Hypertension - 11/28/2016 Thoracic Ascending Aortic Aneurysm - 11/28/2016 Functional Dyspepsia - 10/11/2016 Hypoglycemia, Unspecified - 10/11/2016 Major Depressive Disorder, Recurrent, Mild - 10/11/2016 Muscle Weakness (Generalized) - 10/11/2016 Constipation, Unspecified - 10/11/2016 Primary Osteoarthritis of Right Knee - 06/14/2016 Chronic Pain of Right Knee - 06/14/2016 History of Colonic Polyps - 04/05/2016 Hypercholesteremia Complex Endometrial Hyperplasia With Atypia - 03/31/2013 Comment: Focal to EM polyp Nontoxic Multinodular Goiter - 11/28/2011 Comment: 02/28/22-IMPRESSION: Thyroid nodule(s) is/are present. Surveillance imaging is recommended for one or more nodules as detailed in the synoptic report. TI-RADS Category: TR5 ACR Recommendation: TI-RADS 5 nodule. Follow up imaging is advised annually for 5 years. ROS: GENERAL: No weight loss, malaise or fevers/chills HEENT: Negative for frequent or significant headaches, No changes in hearing or vision. NECK: Negative for lumps, goiter, pain and significant neck swelling RESPIRATORY: Negative for cough, hemoptysis, wheezing, dyspnea or shortness of breath CARDIOVASCULAR: Negative for chest pain, leg swelling, orthopnea, or palpitations GI: No nausea, vomiting, or diarrhea/constipation. No hematochezia/melena. No heartburn or reflux symptoms. : No history of dysuria, frequency or incontinence MUSCULOSKELETAL: Negative for joint pain or swelling. SKIN: Negative for lesions, rash, and itching ENDOCRINE: Negative for cold or heat intolerance, polyuria, polydipsia and goiter NEURO: No history of headaches, syncope, paralysis, seizures or tremors MOOD: Negative for depression, anxiety, or suicidal ideation. PAST MEDICAL HISTORY Diagnosis Date Anxiety Depression Hypercholesteremia Hypertension Lung nodules unchanged ct 03/24 Pancreatitis 05/2019 Thoracic aortic aneurysm 09/23 followed by cardiology Thyroid goiter needs follow up in 05/28 PAST SURGICAL HISTORY Procedure Laterality Date COLONOSCOPY 09/25/2021 repeat in 5 years COLONOSCOPY FLX DX W/COLLJ SPEC WHEN PFRMD 03/31/2014 Colonoscopy COLONOSCOPY FLX DX W/COLLJ SPEC WHEN PFRMD 04/05/2016 Colonoscopy (MAC) EGD W/O BRSH SPEC VARICIES INJ 09/25/2021 LAPS SURG CHOLECYSTECTOMY W/CHOLANGIOGRAPHY 10/25/2016 normal [facility] NEUROPLASTY AND/TRANSPOS MEDIAN NRV CARPAL TUNNE Right 1989 Carpal tunnel decomp NEUROPLASTY AND/TRANSPOS MEDIAN NRV CARPAL TUNNE Left 12/26/2017 Left carpal tunnel release TOTAL ABDOMINAL HYSTERECT W/WO RMVL TUBE OVARY 10/01/2013 Medication List Current Outpatient Medications Medication Sig Dispense Refill ergocalciferol 50,000 unit capsule (VITAMIN D2, DRISDOL) Take 1 capsule by mouth one time a week. 12 capsule 0 metoprolol succinate ER (TOPROL XL) 25 mg 24 hr tablet Take 1 tablet by mouth once daily. 90 tablet 3 potassium chloride ER (KLOR-CON) 20 mEq tablet Take 1 tablet by mouth once daily. 30 tablet 5 sertraline (ZOLOFT) 100 mg tablet Ta (more content not included)... Normal [facility] CNOVon 10-22-2024 CNOV Office Visit (ENWSTR ) ----- AUGUSTINE PENA ([id number]) 1955 F Date Time Provider Department 10/22/24 2:00 PM BLANCHE ROGERS ENWSTR During your visit today, we recorded the following information about you: Temperature Pulse Blood pressure Weight 97.6 degrees 59/minute 117/71 101 kg Blanche Rogers MD 10/22/2024 2:39 PM Signed Fine needle aspiration of Thyroid Nodule (October 22, 2024) Referring Physician: No ref. provider found Primary Care Physician: Mauro Krishnamurthy MD Indication: (E04.1) Thyroid nodule (primary encounter diagnosis) Plan: CYTOLOGY NON-BEER COIL CLEANER, ENDO THYROID/LYMPH NODE FNA, US THYROID/PARATHYROID (POC) ENDO USE ONLY Augustine Lawton Lana was identified by name and date, acknowledges here to have an FNA of Nodule in middle right lobe performed. Patient on anti-platelet or anticoagulant drugs: No The risks, benefits and anticipated outcomes of the procedure, the risks and benefits of the alternatives to the procedure, and the roles and tasks of the personnel to be involved, were discussed with the patient. UNIVERSAL PROTOCOL / SAFETY CHECKLIST Procedure to be Performed: FNAB of 1.8x1.3x1.2 cm right mid thyroid nodule Sign In: A Moment of CARE was completed. Special equipment utilized ultrasound device. Patient/Surrogate Stated/Verified: Patient name, Date of , Relevant allergies, and The intended procedure Time Out: Relevant labs, photos, and/or imaging studies have been reviewed. Intended patient and procedure match the source document(s) (e.g. consent, HANDP, associated studies [imaging, pathology]) match the intended patient and procedure. Consent obtained and matches the intended procedure. Yes. Correct side/site has been marked and visible. Medications required for this procedure are verified. Fire risk assessed and is not applicable. Implants: are not applicable. Sign Out: Specimens are all correctly labeled and sent. All instruments, equipment, possible retained foreign bodies are accounted for. Yes. The post-procedure plan of care has been communicated to the patient or surrogate. She was positionned in decubitus with the neck in extension. FNA of Nodule in middle right lobe: I used Ice pack and EMLA to numb the skin overlying the area of the nodule. The skin was prepped in the usual aseptic manner. I performed 4 passes through target nodule using G-23 needles under sonographic guidance. Character of the aspirate: A small drop of blood Afirma sample sent: Yes The patient tolerated the procedure. Complications: No She was told to go the emergency room if there is severe pain or swelling in the neck area. She will be notified of the result by telephone. Follow up: With me MD Ken Meza Snigdha Reddy, MD 10/22/2024 2:33 PM Signed You had Fine needle aspiration of right mid thyroid nodule. 1) If there is soreness to touch or swallowing, can use ice over the area as needed 2) Can use Tylenol 500 mg every 6-8 hrs as needed (avoid using Ibuprofen,Aleeve as these can cause increased bleeding) 3) If you develop intense pain and/or swelling at the site of biopsy, please go to the ER 4) Results with be available in one week. If you do not hear from us in that time frame, please call the office for an update. Allergies As of Date: 10/22/2024 (No Known Allergies) Date Reviewed: 10/22/2024 Reviewed by: Radha Reynolds MA - Fully Assessed Reason for Visit: Thyroid Nodule [3960] Cmt: FNAB right mid Primary Visit Diagnosis:Thyroid nodule [E04.1] Order(s):CYTOLOGY NON-BEER COIL CLEANER [[id number]] Order #: [id number]. #:[id number] ENDO THYROID/LYMPH NODE FNA [[id number]] Order #: [id number] THYROID/PARATHYROID (POC) ENDO USE ONLY [[id number]] Order #: [id number]. #:[id number]: 1 Prescriptions as of 10/22/2024 - ergocalciferol 50,000 unit capsule (VITAMIN D2, DRISDOL) Take 1 capsule by mouth one time a week. - sertraline (ZOLOFT) 100 mg tablet Take 100 mg by mouth once daily. - potassium chloride ER (KLOR-CON) 20 mEq tablet Take 1 tablet by mouth once daily. - tocilizumab (ACTEMRA ACTPEN) 162 mg/0.9 mL Inject 162mg (1 pen) under the skin one time each week. - amLODIPine (NORVASC) 10 mg tablet Take 1 tablet by mouth once daily. - pantoprazole DR (PROTONIX) 40 mg tablet Take 1 tablet by mouth once daily. - calcium carbonate 600 mg-cholecalciferol 400 units 600 mg-10 mcg (400 unit) tab Take 1 tablet by mouth once daily. - scopolamine (TRANSDERM-SCOP) patch 1.5 mg/72 hr (delivers 1 mg over 3 days) Apply 1 Patch as directed every 72 hours. - metoprolol succinate ER (TOPROL XL) 25 mg 24 hr tablet Take 1 tablet by mouth once daily. - ZENPEP 40,000-126,000- 168,000 unit delayed release capsule - Shower Chair with Back once daily. Use as directed - sertraline (ZOLOFT) 50 mg tablet Take 50 m (more content not included)... Normal [facility] CYTOLOGY NON-GYNon 5 AP DISCLAIMER Normal [facility] Comment on above: Order Comment: Speci men Type: SPECIMEN OBTAINED BY ASPIRATIONOrdering Facility: [facility] Address: [address] [place] [address] Result Comment: Thelma Dominguez Test (LDT) Disclaimer: Performance characteristics of immunohistochemical, immunofluorescent, and chromogenic in-situ hybridization tests have been determined by the performing laboratory within [facility]'s [facility] Pathology and Laboratory Medicine Department ([facility], [facility], [facility], [facility], [facility], [facility], or [facility]) in a manner consistent with CLIA requirements. One or more of these tests may not have been cleared or approved by the FDA. [facility] is regulated under CLIA as qualified to perform high-complexity testing. These tests are used for clinical purposes. These should not be regarded as investigational or for research. Positive and negative controls stain appropriately. Performed By: #### C YTONON ####[facility] LABCLIA [id number] [place] [address] [place] CASE REPORT Normal [facility] Comment on above: Order Comment: Speci men Type: SPECIMEN OBTAINED BY ASPIRATIONOrdering Facility: [facility] Address: [address] [place] [address] Result Comment: [facility] Cytology Report Case: [id number] Authorizing Provider: Blanche Rogers, Collected: 10/22/2024 02:33 PM Ordering Location: Endocrinology Received: 10/22/2024 05:03 PM Pathologist: Omero Bernard MD Specimen: Thyroid, Right, Lobe, MID - 1.8 x 1.3 x 1.2 cm Performed By: #### C YTONON ####[facility] LABCLIA [id number] [place] [address] [place] CLINICAL HISTORY thyroid nodule Normal [facility] Comment on above: Order Comment: Speci men Type: SPECIMEN OBTAINED BY ASPIRATIONOrdering Facility: [facility] Address: [address] [place] [address] Result Comment: Afirma sample received Performed By: #### C YTONON ####[facility] LABCLIA [id number] [address] STATES OF [facility] FINAL DIAGNOSIS Normal [facility] Comment on above: Order Comment: Speci men Type: SPECIMEN OBTAINED BY ASPIRATIONOrdering Facility: [facility] Address: [address] [place] [address] Result Comment: A. T hyroid, Right Lobe, Mid 1.8 x 1.3 x 1.2 cm, FNA: Benign. [place] follicular cells and abundant colloid. The following cell blocks were associated with this case: A1 Cell Block, Alcohol Fixed at 1604 EDT Performed By: #### C YTONON ####[facility] LABCLIA [id number] [address] OF [facility] FINAL PERFORMING LAB Normal [facility] Comment on above: Order Comment: Speci men Type: SPECIMEN OBTAINED BY ASPIRATIONOrdering Facility: [facility] Address: [address] [place] [address] Result Comment: Tech nical component, road hogger operator screening performed at: [facility], [address] [place] [address] CLIA: [id number] Diagnostic interpretation performed at: [facility], [address] [place], [place] [id number] CLIA# [id number] Kitchen Assistant: Raj Mittal MD Performed By: #### C YTONON ####[facility] LABIA [id number] [address] OF [facility] GROSS DESCRIPTION Normal [place] Comment on above: Order Comment: Speci men Type: SPECIMEN OBTAINED BY ASPIRATIONOrdering Facility: [facility] Address: [address] [place] [address] Result Comment: A. T hyroid, Right, Lobe 30 cc cloudy red CytoLyt with particles. ThinPrep and Cell Block prepared. Afirma sample received Performed By: #### C YTONON ####[facility] LABCLDANIELLE [id number] [address] [place] Thyroid glandon [facility] Radiology Study observation (narrative) Hossein kaiden [facility] CNOVon 10-09-2024 CNOV Office Visit (ENWSTR ) ----- AUGUSTINE PENA ([id number]) 1955 F Date Time Provider Department 10/09/24 10:40 AM BLANCHE ROGERS ENWSTR During your visit today, we recorded the following information about you: Pulse Respiration Blood pressure Weight 58/minute 19/minute 132/84 100.9 kg Height 1.549 m Blanche Rogers MD 10/10/2024 7:35 PM Signed [facility] Initial Clinic Visit Note NAME: Augustine Pena PCP: Mauro Krishnamurthy MD Requesting Provider: Mauro Krihsnamurthy MD (PCP) [address] [facility] [address] My final recommendations will be communicated back to the requesting physician by way of shared medical record or letter via [place] mail. Chief Complaint: nodular goiter HPI: Augustine Pena is a 69 year old female was referred for evaluation of thyroid nodules. History in brief, she was noted to have thyroid nodule incidentally in 2012, never had a biopsy. Further evaluation with thyroid US revealed multinodular goiter initiually, she has been undergoing monitoring with thyroid US since. Now she reports referral due to changes She is in wheel chair, reports it takes long time for her to recover after hospitalization for GI issues, like gall stones Related symptoms: Swallowing difficulty: no Shortness of breath when lying flat: no Hoarseness of voice: no History of radiation exposure to the neck: no No environmental or occupational exposure to radioactive materials such as proximity to nuclear plants or living in areas of endemic high radioactivity History of smoking: quit 20 years, on and off smoker, upto 1 pack a day Family history of thyroid cancer: no Family history of thyroid nodules: no PAST MEDICAL HISTORY Diagnosis Date Anxiety Depression Hypercholesteremia Hypertension Lung nodules unchanged ct 03/24 Pancreatitis 05/2019 Thoracic aortic aneurysm (HCC) 09/23 followed by cardiology Thyroid goiter needs follow up in 05/28 PAST SURGICAL HISTORY Procedure Laterality Date COLONOSCOPY 09/25/2021 repeat in 5 years COLONOSCOPY FLX DX W/COLLJ SPEC WHEN PFRMD 03/31/2014 Colonoscopy COLONOSCOPY FLX DX W/COLLJ SPEC WHEN PFRMD 04/05/2016 Colonoscopy (MAC) EGD W/O BRSH SPEC VARICIES INJ 09/25/2021 LAPS SURG CHOLECYSTECTOMY W/CHOLANGIOGRAPHY 10/25/2016 normal IOC NEUROPLASTY AND/TRANSPOS MEDIAN NRV CARPAL TUNNE Right 1989 Carpal tunnel decomp NEUROPLASTY AND/TRANSPOS MEDIAN NRV CARPAL TUNNE Left 12/26/2017 Left carpal tunnel release TOTAL ABDOMINAL HYSTERECT W/WO RMVL TUBE OVARY 10/01/2013 ALLERGIES No Known Allergies Social History Tobacco Use Smoking status: Former Current packs/day: 0.00 Average packs/day: 0.5 packs/day for 12.0 years (6.0 ttl pk-yrs) Types: Cigarettes Start date: 05/29/1999 Quit date: 05/29/2011 Years since quittin.3 Smokeless tobacco: Former Vaping Use Vaping status: Never Used Substance Use Topics Alcohol use: Not Currently Drug use: No Comment: marijuana only as teen FAMILY HISTORY Problem Relation Age of Onset Colon Cancer Mother Cancer Father lung Breast Cancer Sister Cancer Brother lung Thyroid Cancer No Family History MEDICATIONS: Current Outpatient Medications on File Prior to Visit Medication Sig sertraline (ZOLOFT) 100 mg tablet Take 100 mg by mouth once daily. potassium chloride ER (KLOR-CON) 20 mEq tablet Take 1 tablet by mouth once daily. ergocalciferol 50,000 unit capsule (VITAMIN D2, DRISDOL) Take 1 capsule by mouth one time a week. tocilizumab (ACTEMRA ACTPEN) 162 mg/0.9 mL Inject 162mg (1 pen) under the skin one time each week. amLODIPine (NORVASC) 10 mg tablet Take 1 tablet by mouth once daily. pantoprazole DR (PROTONIX) 40 mg tablet Take 1 tablet by mouth once daily. calcium carbonate 600 mg-cholecalciferol 400 units 600 mg-10 mcg (400 unit) tab Take 1 tablet by mouth once daily. metoprolol succinate ER (TOPROL XL) 25 mg 24 hr tablet Take 1 tablet by mouth once daily. ZENPEP 40,000-126,000- 168,000 unit delayed release capsule (Patient taking differently: Take 2-3 capsules by mouth three times a day with meals. Takes 3 capsules with meals, takes 2 capsules with snacks) Shower Chair with Back once daily. Use as directed buPROPion XL (WELLBUTRIN XL) 150 mg 24 hr tablet Take 150 mg by mouth once daily. ibuprofen (MOTRIN ORAL) Take 600 mg by mouth as needed. nystatin (MYCOSTATIN) cream Apply 1 application to affected area twice daily. (Patient taking differently: Apply 1 application to affected area two times a day as needed for dry skin.) Incontinence Pants, Reusable misc 5 Units continuous. scopolamine (TRANSDERM-SCOP) patch 1.5 mg/72 hr (delivers 1 mg over 3 days) Apply 1 Patch as directed every 72 hours. (Patient not taking: Reported on 10/09/2024) sertraline (ZOLOFT) 50 mg tablet Take 50 mg by (more content not included)... Normal [facility] THYROID STIMULATING HORMONEo n 10-09-2024 TSH Qn 1.72 m[IU]/L [facility] TSH Qnon 10-09-2024 Interpretation and review of laboratory results Normal [facility] TSH SerPl-aCncon 10-09-2024 TSH Qn 1.720 m[IU]/L Normal 0.270-4.20 0 [facility] Comment on above: Order Comment: Speci men Type: BLOOD SPECIMENOrdering Facility: [facility] Address: [address] [place] [address] Performed By: #### 3 016-3 ####[facility] LABORATORYCLIA [id number] [place] [address] [place] Discharge Instructionon 08-12 Discharge Instruction [facility] Medical Records Department [address] [place] [address] Instructions for Home/Discharge Instructions 08/28/24 1249 MR#: [id number] Acct: [id number] Name: AUGUSTINE PENA Rep #: [id number] : 1955 69 From: Ranjeet Escobar DO PCP: Dr. Mauro Krishnamurthy MD Status:ADM IN Discharge Instructions Diet Discharge Diet: No restrictions DC O2, CPAP, BIPAP needs Home O2 Discharge instructions: No Dressing / Incision Discharge Activity: Return to Normal Activity Weight Bearing Status: Full weight bearing Follow Up Care Test Results: Test results from this visit will be discussed in further detail at your follow-up appointment, if applicable. Discharge Plan Admission Admit Date/Time: 08/25/24 11:11 Primary Reason for Your Visit: Recurrent pancreatitis Attending Provider: Ranjeet Escobar Primary Care Provider: Mauro Krishnamurthy Discharge Orders/Prescriptions Prescriptions: New oxycodone 5 mg tablet 5 mg PO Q4H PRN (Reason: pain) 5 Days Qty: 30 0RF Rx Instructions: one or two every four hours as needed for pain, may take with 650 mg of Tylenol if desired Continued Zenpep 40,000-126,000- 168,000 unit capsule,delayed release(DR/EC) See Rx Instructions PO .COMPLEX Qty: 320 11RF Rx Instructions: take 1-2 with snacks and 2-3 with meals calcium carbonate-vitamin D3 600 mg-10 mcg (400 unit) tablet 1 tab PO DAILY sertraline 50 mg tablet 100 mg PO DAILY bupropion HCl 150 mg tablet extended release 24 hr 150 mg PO DAILY Actemra ACTPen 162 mg/0.9 mL pen injector 162 mg SUBCUT Q7D Patient Comments: takes on Mondays ergocalciferol (vitamin D2) 1,250 mcg (50,000 unit) Capsule 1,250 mcg PO TH potassium chloride 20 mEq tablet extended release 20 meq PO DAILY 7 Days Qty: 7 0RF omeprazole 20 MG capsule 40 mg PO DAILY 30 Days Qty: 0 0RF amlodipine 10 mg Tablet 10 mg PO DAILY Qty: 0 0RF scopolamine base 1 mg over 3 days Patch 3 Day 1 patch transdermal Q3D PRN (Reason: nausea) metoprolol succinate 25 mg tablet extended release 24 hr 25 mg PO DAILY Qty: 90 3RF Referrals / Follow Up: FriendMilan DO [Med Staff - Active Staff] - Within 1 Month Mauro Krishnamurthy MD [Primary Care Provider] - Disposition Disposition (needs filled in before D/C Order can be placed): Home, Self Care 08/28/24 1304 Ranjeet Escobar DO CC: Dr. Mauro Krishnamurthy MD Signed Normal [facility] CBC W/Diff, Automatedon 08-12 Absolute Lymph 1.01 X10 3/uL Normal 0.83-4.51 [facility] Comment on above: Performed By: #### L 500.4050, L100.0100 #### [facility] [address] [place], [address] Absolute Neut 6.5 X10 3/uL Normal 2.0-7.7 [facility] Comment on above: Performed By: #### L 500.4050, L100.0100 #### [facility] [address] [place], [address] Basophils/100 WBC (Bld) 0.3 % Normal 0-1 [facility] Comment on above: Performed By: #### L 500.4050, L100.0100 #### [facility] [address] [place], [address] Eosinophils/100 WBC (Bld) 1.7 % Normal 0-5 [facility] Comment on above: Performed By: #### L 500.4050, L100.0100 #### [facility] [address] [place], [address] Erythrocyte distribution width (RBC) [Ratio] 12.6 % Normal 11.6-14.6 [facility] Comment on above: Performed By: #### L 500.4050, L100.0100 #### [facility] [address] [place], [address] Hematocrit (Bld) [Volume fraction] 33.1 % Low 37-47 [facility] Comment on above: Performed By: #### L 500.4050, L100.0100 #### [facility] [address] [place], [address] Hemoglobin (Bld) [Mass/Vol] 11.2 g/dL Low 12.0-15.0 [facility] Comment on above: Performed By: #### L 500.4050, L100.0100 #### [facility] [address] [place], [address] IG% 0.700 Normal 0.0-0.9 [facility] Comment on above: Result Comment: IG% - Immature Granulocytes (promyelocytes, myelocytes and metamyelocytes) > 1% indicates that a LEFT SHIFT is Present. Performed By: #### L 500.4050, L100.0100 #### [facility] [address] [place], [address] Lymphocytes/100 WBC (Bld) 11.7 % Low 19-41 [facility] Comment on above: Performed By: #### L 500.4050, L100.0100 #### [facility] [address] [place], [address] MCH (RBC) [Entitic mass] 27.7 pg Normal 27.0-32.0 [facility] Comment on above: Performed By: #### L 500.4050, L100.0100 #### [facility] [address] [place], [address] MCHC (RBC) [Mass/Vol] 33.8 g/dL Normal 32-36 [facility] Comment on above: Performed By: #### L 500.4050, L100.0100 #### [facility] [address] [place], [address] MCV (RBC) [Entitic vol] 81.9 fL Normal 81-99 [facility] Comment on above: Performed By: #### L 500.4050, L100.0100 #### [facility] [address] [place], [address] Monocytes/100 WBC (Bld) 9.8 % Normal 0-10 [facility] Comment on above: Performed By: #### L 500.4050, L100.0100 #### [facility] [address] [place], [address] Neutrophils/100 WBC (Bld) 75.8 % High 47-70 [facility] Comment on above: Performed By: #### L 500.4050, L100.0100 #### [facility] [address] [place], [address] Nucleated RBC (Bld) [#/Vol] 0 10*3/uL Normal 0-5 [facility] Comment on above: Performed By: #### L 500.4050, L100.0100 #### [facility] [address] [place], [address] Platelet mean volume (Bld) [Entitic vol] 9.1 fL Normal 6.2-12.0 [facility] Comment on above: Performed By: #### L 500.4050, L100.0100 #### [facility] [address] [place], [address] Platelets (Bld) [#/Vol] 206 10*3/uL Normal 150-450 [facility] Comment on above: Performed By: #### L 500.4050, L100.0100 #### [facility] [address] [place], [address] RBC (Bld) [#/Vol] 4.04 10*6/uL Low 4.2-5.4 [facility] Comment on above: Performed By: #### L 500.4050, L100.0100 #### [facility] [address] [place], [address] RDW SD 37.7 fl Normal 35.1-43.9 [facility] Comment on above: Performed By: #### L 500.4050, L100.0100 #### [facility] [address] [place], [address] WBC (Bld) [#/Vol] 8.6 10*3/uL Normal 4.4-11.0 [facility] Comment on above: Performed By: #### L 500.4050, L100.0100 #### [facility] [address] [place], [address] CNPNon 08-26-2024 [facility] ----- AUGUSTINE PENA ([id number]) 1955 F Date Time Provider Department 08/26/24 MAURO KRISHNAMURTHY [facility] During your visit today, we recorded the following information about you: Terri Mcdaniel, RN 08/26/2024 10:10 AM Signed Zoey case liner with [facility] calling to let Dr. Krishnamurthy know that pt has been admitted to [facility]. She was admitted yesterday for pancreatitis. Allergies As of Date: 08/26/2024 (No Known Allergies) Date Reviewed: 05/22/2024 Reviewed by: Dee Dee Cooper MA - Fully Assessed Reason for Visit: Patient Update [1234] Cmt: Admitted to [facility] Prescriptions as of 08/26/2024 - potassium chloride ER (KLOR-CON) 20 mEq tablet Take 1 tablet by mouth once daily. - ergocalciferol 50,000 unit capsule (VITAMIN D2, DRISDOL) Take 1 capsule by mouth one time a week. - tocilizumab (ACTEMRA ACTPEN) 162 mg/0.9 mL Inject 162mg (1 pen) under the skin one time each week. - amLODIPine (NORVASC) 10 mg tablet Take 1 tablet by mouth once daily. - pantoprazole DR (PROTONIX) 40 mg tablet Take 1 tablet by mouth once daily. - calcium carbonate 600 mg-cholecalciferol 400 units 600 mg-10 mcg (400 unit) tab Take 1 tablet by mouth once daily. - scopolamine (TRANSDERM-SCOP) patch 1.5 mg/72 hr (delivers 1 mg over 3 days) Apply 1 Patch as directed every 72 hours. - metoprolol succinate ER (TOPROL XL) 25 mg 24 hr tablet Take 1 tablet by mouth once daily. - ZENPEP 40,000-126,000- 168,000 unit delayed release capsule - Shower Chair with Back once daily. Use as directed - sertraline (ZOLOFT) 50 mg tablet Take 50 mg by mouth once daily. Taking 150 mg Daily - buPROPion XL (WELLBUTRIN XL) 150 mg 24 hr tablet - ibuprofen (MOTRIN ORAL) Take by mouth as needed. - nystatin (MYCOSTATIN) cream Apply 1 application to affected area twice daily. - Incontinence Pants, Reusable misc 5 Units continuous. 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 AAA (abdominal aortic aneurysm) [I71.40] 04/09/2013 Depression [F32.A] 06/26/2023 Lung nodules [R91.8] 05/15/2024 Hypercholesteremia [E78.00] Hypertension [I10] 11/28/2016 History of colonic polyps [Z86.0100] 04/05/2016 Primary osteoarthritis of right knee [M17.11] 06/14/2016 Chronic pain of right knee [M25.561, G89.29] 06/14/2016 Acute biliary pancreatitis without infection or*10/22/2016 06/26/2023 Essential hypertension [I10] 11/28/2016 Thoracic ascending aortic aneurysm (HCC) [I71.2*11/28/2016 Carpal tunnel syndrome, left [G56.02] 10/29/2017 Obesity, Class III, BMI >= 40 [E66.01] 04/10/2021 Age-related osteoporosis without current pathol*07/18/2021 Dysphagia [R13.10] 09/25/2021 PMR (polymyalgia rheumatica) ([facility]) [M35.3] 08/23/2022 Ectatic thoracic aorta ([facility]) [I77.810] 09/12/2022 09/12/2022 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[facility]) [M31.6] 01/17/2023 Acidosis [E87.20] 10/11/2016 04/20/2023 Benign paroxysmal positional vertigo [H81.10] 02/18/2023 Diagnosed: 02/18/2023 Cough [R05.9] 10/11/2016 06/26/2023 Diagnosed: 02/18/2023 Dehydration [E86.0] 02/18/2023 Diagnosed: 02/18/2023 Disorder of tooth [K08.9] 02/18/2023 Diagnosed: 02/18/2023 Former smoker [Z87.891] 02/18/2023 Diagnosed: 02/18/2023 Functional dyspepsia [K30] 10/11/2016 Diagnosed: 02/18/2023 Gastroesophageal reflux disease [K21.9] 02/18/2023 05/15/2024 Diagnosed: 02/18/2023 Hypoglycemia, unspecified [E16.2] 10/11/2016 Diagnosed: 02/18/2023 Injury of kidney [S37.009A] 02/18/2023 Diagnosed: 02/18/2023 Major depressive disorder, recurrent, mild ([facility]*10/11/2016 Diagnosed: 02/18/2023 Muscle weakness (generalized) [M62.81] 10/11/2016 Diagnosed: 02/18/2023 Constipation, unspecified [K59.00] 10/11/2016 Diagnosed: 02/18/2023 Orthostatic hypotension [I95.1] 02/18/2023 Diagnosed: 02/18/2023 Osteoarthritis [M19.90] 11/07/2022 Diagnosed: 02/18/2023 Polyp of colon [K63.5] 02/18/2023 Diagnosed: 02/18/2023 Shortness of breath [R06.02] 12/19/2022 06/26/2023 Diagnosed: 02/18/2023 Swelling of lower extremity [M79.89] 02/18/2023 Diagnosed: 02/18/2023 Unspecified abdominal pain [R10.9] 10/11/2016 05/15/2024 Diagnosed: 02/18/2023 Urinary tract infection [N39.0] 02/18/2023 Diagnosed: 02/18/2023 Hypophosphatemia [E83.39] 03/02/2023 Diagnosed: 07/29/2023 Chronic pancreatitis (HCC) [K86.1] 03/02/2023 Diagnosed: 07/29/2023 Encounter Status:Closed by TERRI MCDANIEL on 08/26/24 Normal [facility] Metabolic Prof ilyoko 08-26-2024 Albumin [Mass/Vol] 3.0 g/dL Low 3.2-5.0 [facility] Comment on above: Performed By: #### L 500.4050, L100.0100 #### [facility] [address] [place], [address] Albumin/Globulin [Mass ratio] 1.1 {ratio} Normal 0.9-2.4 [facility] Comment on above: Performed By: #### L 500.4050, L100.0100 #### [facility] [address] [place], [address] ALK P 82 U/L Normal 45-117 [facility] Comment on above: Performed By: #### L 500.4050, L100.0100 #### [facility] [address] [place], [address] ALT [Catalytic activity/Vol] 15 U/L Normal 13-56 [facility] Comment on above: Performed By: #### L 500.4050, L100.0100 #### [facility] [address] [place], [address] AST [Catalytic activity/Vol] 18 U/L Normal 15-37 [facility] Comment on above: Performed By: #### L 500.4050, L100.0100 #### [facility] [address] [place], [address] Bilirubin [Mass/Vol] 0.90 mg/dL Normal 0.20-1.00 [facility] Comment on above: Result Comment: For patients on eltrombopag therapy, use of Dimension [place] TBIL is not recommended. Performed By: #### L 500.4050, L100.0100 #### [facility] [address] [place], [address] BUN/CRE 18.7 RATIO Normal 10-20 [facility] Comment on above: Performed By: #### L 500.4050, L100.0100 #### [facility] Laboratory [address] [place], [address] CA,Total 8.3 mg/dL Low 8.5-10.1 [facility] Comment on above: Performed By: #### L 500.4050, L100.0100 #### [facility] Laboratory [address] [place], [address] Chloride [Moles/Vol] 109 mmol/L High 98-107 [facility] Comment on above: Performed By: #### L 500.4050, L100.0100 #### [facility] Laboratory [address] [place], [address] CO2 [Moles/Vol] 25.0 mmol/L Normal 21.0-32.0 [facility] Comment on above: Performed By: #### L 500.4050, L100.0100 #### [facility] Laboratory [address] [place], [address] Creatinine [Mass/Vol] 0.64 mg/dL Normal 0.55-1.02 [facility] Comment on above: Result Comment: The validity of the calculated GFR GFRAA in patients over 70 years has not been determined. Clinical correlation is essential. Performed By: #### L 500.4050, L100.0100 #### [facility] [address] [place], [address] ECRCL 71.25 ml/min Normal [facility] Comment on above: Performed By: #### L 500.4050, L100.0100 #### [facility] [address] [place], [address] EST GFR - AA 118 mL/min Normal >60 [facility] Comment on above: Result Comment: Afri can Belgian GFR Calc Performed By: #### L 500.4050, L100.0100 #### [facility] Laboratory [address] [place], [address] GAP 4 Low 5-15 [facility] Comment on above: Performed By: #### L 500.4050, L100.0100 #### [facility] Laboratory [address] [place], [address] GFR/1.73 sq M.predicted among non-blacks MDRD (S/P/Bld) [Vol rate/Area] 97 mL/min/{1.73_m2} Normal >60 [facility] Comment on above: Result Comment: Non- GFR Calc Performed By: #### L 500.4050, L100.0100 #### [facility] Laboratory [address] [place], [address] Globulin (S) [Mass/Vol] 2.8 g/dL Normal 2.2-4.2 [facility] Comment on above: Performed By: #### L 500.4050, L100.0100 #### [facility] [address] [place], [address] Glucose [Mass/Vol] 102 mg/dL Normal 74-106 [facility] Comment on above: Result Comment: Fast ing Glucose result from 100 to 125 mg/dL suggests IMPAIRED HOMEOSTASIS per A.D.A. criteria. Performed By: #### L 500.4050, L100.0100 #### [facility] Laboratory [address] [place], [address] Potassium [Moles/Vol] 3.8 mmol/L Normal 3.5-5.1 [facility] Comment on above: Performed By: #### L 500.4050, L100.0100 #### [facility] [address] [place], [address] Sodium [Moles/Vol] 138 mmol/L Normal 136-145 [facility] Comment on above: Performed By: #### L 500.4050, L100.0100 #### [facility] [address] [place], [address] T PROT 5.8 g/dL Low 6.4-8.2 [facility] Comment on above: Performed By: #### L 500.4050, L100.0100 #### [facility] Laboratory [address] [place], [address] Urea nitrogen [Mass/Vol] 12 mg/dL Normal 7-18 [facility] Comment on above: Performed By: #### L 500.4050, L100.0100 #### [facility] Laboratory [address] [place], [address] Abdomen/Pelvis W IV Cont ONL Yon 08-25-2024 Abdomen/Pelvis W IV Cont ONLY [facility] Imaging Services [address] [place] [address] Abdomen/Pelvis W IV Cont ONLY MR#: [id number] Acct: [id number] Name: AUGUSTINE PENA GOPAL Rep #: [id number] : 1955 F 69 From: Hayley Valencia MD PCP: Dr. Mauro Krishnamurthy MD Status: REG ER Study: Abdomen/Pelvis W IV Cont ONLY Date of Exam: Exam# [id number] Ordering Dr: Elmer Barajas DO [id number] STUDY: CT ABDOMEN AND PELVIS WITH CONTRAST - URINARY TRACT REASON FOR EXAM: Female, 69 years old. Abdominal pain, recurrent pancreatitis, nausea RADIATION DOSAGE (If Supplied By Facility): CTDIvol = ( 19.95 ) mGy, DLP = ( 1131.13 ) mGycm TECHNIQUE: IV 100mL Isovue-300 was administered. Transaxial images were obtained from the dome of the diaphragm to the symphysis pubis subsequent to intravenous contrast administration. Multiplanar coronal and sagittal images were reformatted. The protocol utilizes one or more of the following dose reduction techniques: automated exposure control, adjustment of mA and/or kV according to patient size,and/or use of iterative reconstruction technique. COMPARISON: February 24, 2023 FINDINGS: The visualized lung bases are unremarkable. The visualized portions of the heart are within normal limits. Normal liver. There is non-visualization of the gallbladder, which may be secondary to either contraction or a prior cholecystectomy. Normal spleen. There is peripancreatic stranding adjacent to the head and body of the pancreas consistent with acute pancreatitis. There are scattered calcifications throughout the body and head of the pancreas associated with mild pancreatic ductal dilatation system with a history of chronic pancreatitis. Normal bilateral adrenal glands. There is a small hiatal hernia. Normal small intestine. There are multiple colonic diverticula consistent with diverticulosis. There is non-visualization of the appendix. Normal abdominal aorta. No retroperitoneal adenopathy. Normal right kidney. There is a too small to characterize low-attenuation focus within the left kidney suggestive of a cyst. Normal urinary bladder. Normal abdominal wall. Normal osseous structures. CT/Abdomen/Pelvis W IV Cont ONLY IMPRESSION: Acute on chronic pancreatitis. Colonic diverticulosis. Electronically Signed: Hayley Valencia MD at 9:53 EST , CC: Dr. Elmer Barajas DO; Dr. Mauro Krishnamurthy MD Carbide Grinder: Signed Normal [facility] CBC W/Diff, Automatedon 08-12 Absolute Lymph 0.73 X10 3/uL Low 0.83-4.51 [facility] Comment on above: Performed By: #### L 501.2450, L500.4050, L100.0100 #### [facility] Laboratory [address] [place], [address] Absolute Neut 8.3 X10 3/uL High 2.0-7.7 [facility] Comment on above: Performed By: #### L 501.2450, L500.4050, L100.0100 #### [facility] Laboratory [address] [place], [address] Basophils/100 WBC (Bld) 0.3 % Normal 0-1 [facility] Comment on above: Performed By: #### L 501.2450, L500.4050, L100.0100 #### [facility] Laboratory [address] [place], [address] Eosinophils/100 WBC (Bld) 0.3 % Normal 0-5 [facility] Comment on above: Performed By: #### L 501.2450, L500.4050, L100.0100 #### [facility] [address] [place], [address] Erythrocyte distribution width (RBC) [Ratio] 12.4 % Normal 11.6-14.6 [facility] Comment on above: Performed By: #### L 501.2450, L500.4050, L100.0100 #### [facility] [address] [place], [address] Hematocrit (Bld) [Volume fraction] 37.9 % Normal 37-47 [facility] Comment on above: Performed By: #### L 501.2450, L500.4050, L100.0100 #### [facility] Laboratory [address] [place], [address] Hemoglobin (Bld) [Mass/Vol] 12.9 g/dL Normal 12.0-15.0 [facility] Comment on above: Performed By: #### L 501.2450, L500.4050, L100.0100 #### [facility] [address] [place], [address] IG% 0.800 Normal 0.0-0.9 [facility] Comment on above: Result Comment: IG% - Immature Granulocytes (promyelocytes, myelocytes and metamyelocytes) > 1% indicates that a LEFT SHIFT is Present. Performed By: #### L 501.2450, L500.4050, L100.0100 #### [facility] [address] [place], [address] Lymphocytes/100 WBC (Bld) 7.5 % Low 19-41 [facility] Comment on above: Performed By: #### L 501.2450, L500.4050, L100.0100 #### [facility] Laboratory [address] [place], [address] MCH (RBC) [Entitic mass] 27.2 pg Normal 27.0-32.0 [facility] Comment on above: Performed By: #### L 501.2450, L500.4050, L100.0100 #### [facility] Laboratory [address] [place], [address] MCHC (RBC) [Mass/Vol] 34.0 g/dL Normal 32-36 [facility] Comment on above: Performed By: #### L 501.2450, L500.4050, L100.0100 #### [facility] [address] [place], [address] MCV (RBC) [Entitic vol] 80.0 fL Low 81-99 [facility] Comment on above: Performed By: #### L 501.2450, L500.4050, L100.0100 #### [facility] [address] [place], [address] Monocytes/100 WBC (Bld) 6.0 % Normal 0-10 [facility] Comment on above: Performed By: #### L 501.2450, L500.4050, L100.0100 #### [facility] [address] [place], [address] Neutrophils/100 WBC (Bld) 85.1 % High 47-70 [facility] Comment on above: Performed By: #### L 501.2450, L500.4050, L100.0100 #### [facility] [address] [place], [address] Nucleated RBC (Bld) [#/Vol] 0 10*3/uL Normal 0-5 [facility] Comment on above: Performed By: #### L 501.2450, L500.4050, L100.0100 #### [facility] [address] [place], [address] Platelet mean volume (Bld) [Entitic vol] 9.3 fL Normal 6.2-12.0 [facility] Comment on above: Performed By: #### L 501.2450, L500.4050, L100.0100 #### [facility] [address] [place], [address] Platelets (Bld) [#/Vol] 236 10*3/uL Normal 150-450 [facility] Comment on above: Performed By: #### L 501.2450, L500.4050, L100.0100 #### [facility] [address] [place], [address] RBC (Bld) [#/Vol] 4.74 10*6/uL Normal 4.2-5.4 [facility] Comment on above: Performed By: #### L 501.2450, L500.4050, L100.0100 #### [facility] [address] [place], [address] RDW SD 35.7 fl Normal 35.1-43.9 [facility] Comment on above: Performed By: #### L 501.2450, L500.4050, L100.0100 #### [facility] [address] [place], [address] WBC (Bld) [#/Vol] 9.7 10*3/uL Normal 4.4-11.0 [facility] Comment on above: Performed By: #### L 501.2450, L500.4050, L100.0100 #### [facility] [address] [place], [address] Comprehensive Metabolic Prof [facility] 08-25-2024 Albumin [Mass/Vol] 3.6 g/dL Normal 3.2-5.0 [facility] Comment on above: Performed By: #### L 501.2450, L500.4050, L100.0100 #### [facility] [address] [place], [address] Albumin/Globulin [Mass ratio] 1.0 {ratio} Normal 0.9-2.4 [facility] Comment on above: Performed By: #### L 501.2450, L500.4050, L100.0100 #### [facility] [address] [place], [address] ALK P 108 U/L Normal 45-117 [facility] Comment on above: Performed By: #### L 501.2450, L500.4050, L100.0100 #### [facility] [address] [place], [address] ALT [Catalytic activity/Vol] 15 U/L Normal 13-56 [facility] Comment on above: Performed By: #### L 501.2450, L500.4050, L100.0100 #### [facility] [address] [place], [address] AST [Catalytic activity/Vol] 20 U/L Normal 15-37 [facility] Comment on above: Performed By: #### L 501.2450, L500.4050, L100.0100 #### [facility] [address] [place], [address] Bilirubin [Mass/Vol] 1.40 mg/dL High 0.20-1.00 [facility] Comment on above: Result Comment: For patients on eltrombopag therapy, use of Dimension [place] TBIL is not recommended. Performed By: #### L 501.2450, L500.4050, L100.0100 #### [facility] [address] [place], [address] BUN/CRE 20.4 RATIO High 10-20 [facility] Comment on above: Performed By: #### L 501.2450, L500.4050, L100.0100 #### [facility] [address] [place], [address] CA,Total 9.5 mg/dL Normal 8.5-10.1 [facility] Comment on above: Performed By: #### L 501.2450, L500.4050, L100.0100 #### [facility] [address] [place], [address] Chloride [Moles/Vol] 104 mmol/L Normal 98-107 [facility] Comment on above: Performed By: #### L 501.2450, L500.4050, L100.0100 #### [facility] [address] [place], [address] CO2 [Moles/Vol] 20.0 mmol/L Low 21.0-32.0 [facility] Comment on above: Performed By: #### L 501.2450, L500.4050, L100.0100 #### [facility] [address] [place], [address] Creatinine [Mass/Vol] 0.83 mg/dL Normal 0.55-1.02 [facility] Comment on above: Result Comment: The validity of the calculated GFR GFRAA in patients over 70 years has not been determined. Clinical correlation is essential. Performed By: #### L 501.2450, L500.4050, L100.0100 #### [facility] [address] [place], [address] ECRCL 70.45 ml/min Normal [facility] Comment on above: Performed By: #### L 501.2450, L500.4050, L100.0100 #### [facility] [address] [place], [address] EST GFR - AA 87 mL/min Normal >60 [facility] Comment on above: Result Comment: Afri can Belgian GFR Calc Performed By: #### L 501.2450, L500.4050, L100.0100 #### [facility] [address] [place], [address] GAP 13 Normal 5-15 [facility] Comment on above: Performed By: #### L 501.2450, L500.4050, L100.0100 #### [facility] [address] [place], [address] GFR/1.73 sq M.predicted among non-blacks MDRD (S/P/Bld) [Vol rate/Area] 72 mL/min/{1.73_m2} Normal >60 [facility] Comment on above: Result Comment: Non- GFR Calc Performed By: #### L 501.2450, L500.4050, L100.0100 #### [facility] [address] [place], [address] Globulin (S) [Mass/Vol] 3.6 g/dL Normal 2.2-4.2 [facility] Comment on above: Performed By: #### L 501.2450, L500.4050, L100.0100 #### [facility] [address] [place], [address] Glucose [Mass/Vol] 133 mg/dL High 74-106 [facility] Comment on above: Result Comment: Fast ing Glucose result greater than or equal to 126 mg/dL suggests DIABETES MELLITUS per A.D.A. criteria. Performed By: #### L 501.2450, L500.4050, L100.0100 #### [facility] [address] [place], [address] Potassium [Moles/Vol] 3.6 mmol/L Normal 3.5-5.1 [facility] Comment on above: Performed By: #### L 501.2450, L500.4050, L100.0100 #### [facility] [address] [place], [address] Sodium [Moles/Vol] 136 mmol/L Normal 136-145 [facility] Comment on above: Performed By: #### L 501.2450, L500.4050, L100.0100 #### [facility] [address] [place], [address] T PROT 7.2 g/dL Normal 6.4-8.2 [facility] Comment on above: Performed By: #### L 501.2450, L500.4050, L100.0100 #### [facility] [address] [place], [address] Urea nitrogen [Mass/Vol] 17 mg/dL Normal 7-18 [facility] Comment on above: Performed By: #### L 501.2450, L500.4050, L100.0100 #### [facility] [address] [place], [address] Emergency Department Summary on 08-25-2024 Emergency Department Summary [facility] Medical Records Department [address] [place] [address] Emergency Department Summary 08/25/24 MR#: [id number] Acct: [id number] Name: AUGUSTINE PENA GOPAL Rep #: [id number] : 1955 69 From: Elmer Barajas DO PCP: Dr. Mauro Krishnamurthy MD Status:REG ER Location: ED HPI History of Present Illness Chief Complaint: Abd Pain Narrative Narrative: Chief complaint and HPI: 69-year-old female with past medical history of HTN, chronic/recurrent pancreatitis, GERD presents for evaluation of epigastric abdominal pain. Patient states she has a previous history of pancreatitis secondary to cholelithiasis. She had a cholecystectomy. Since then she has had recurrent/chronic pancreatitis. Patient used to follow with Dr. Massey but has not seen him in a while given that her symptoms improved when started on pancreatic enzymes. She denies any alcohol abuse. Patient states yesterday she developed nausea and vomiting. States she thought she was developing a viral illness. She states her epigastric abdominal pain then appeared and has progressively worsened. States this feels similar to her pancreatitis flares. She denies any fever, chills, shortness of breath, chest pain, diarrhea, constipation, dysuria. Review of systems: See HPI Medications: As listed on the chart Allergies: As listed on the chart PFSH: Per chart Vital signs: As listed on the chart. Reviewed. Physical exam: Gen: A O x3, NAD Head: Normocephalic, atraumatic Eyes: No sclera icterus, conjunctiva clear ENT: Moist mucous membranes Neck: Trachea midline, No JVD CV: RRR, no murmurs, no peripheral edema Resp: Lungs CTA BL, no w/r/c GI: Abd soft, non-distended, mildly tender to palpation in the epigastric, no r/r/g Musc: Full ROM, no deformity Skin: Warm, dry Neuro: Alert, oriented, grossly intact, sensation intact Psych: Cooperative, appropriate mood and affect [facility] Medical History Morbid obesity Vision changes GCA (giant cell arteritis) Anemia Chronic pain Osteoporosis Anxiety and depression Lung nodules Pure hypercholesterolemia Thoracic aortic aneurysm without rupture Essential hypertension Pancreatitis GERD (gastroesophageal reflux disease) Morbid obesity Colon polyps Former smoker Poor dentition Osteoarthritis Multiple thyroid nodules Home Medications ???Medication ???Instructions ???Recorded ???Last Taken ???Type calcium 600 mg (as 1 tab PO DAILY SUPPLEMENT 10/16/21 02/21/23 History carbonate)-vitamin D3 10 mcg (400 unit) tablet metoprolol succinate 25 mg 25 mg PO DAILY BLOOD PRESSURE #90 01/08/23 02/21/23 Rx tablet,extended release 24 hr tabs bupropion HCl 150 mg 24 hr tablet, 150 mg PO DAILY DEPRESSION 02/04/23 02/21/23 History extended release ergocalciferol (vitamin D2) 1,250 1,250 mcg PO TH 02/04/23 02/21/23 History mcg (50,000 unit) capsule nystatin 100,000 unit/gram topical 1 applic topical BID PRN ANTIFUNGAL 02/04/23 Unknown History cream sertraline 50 mg tablet 50 mg PO DAILY DEPRESSION 02/04/23 02/21/23 History tocilizumab 162 mg/0.9 mL 162 mg subcut TU RHEUMATOID 02/04/23 02/19/23 History subcutaneous pen injector (Actemra ARTHRITIS ACTPen) potassium chloride 20 mEq 20 meq PO DAILY SUPPLEMENT 7 days 02/11/23 02/21/23 Rx tablet,extended release #7 tabs omeprazole 20 mg capsule,delayed 40 mg (2 x 20 mg) PO DAILY ACID 02/23/23 02/21/23 Rx release REFLUX 30 days #0 caps amlodipine 10 mg tablet 10 mg PO DAILY #0 tabs 03/02/23 Unknown Rx oxycodone 5 mg tablet 5 mg PO Q4H PRN PRN Pain Score 03/02/23 Unknown Rx 4-10 1 day #6 tabs scopolamine base 1 mg over 3 days 1 patch transdermal Q3D #0 ea 03/02/23 Unknown Rx transdermal patch [id number] See Rx Instructions PO .COMPLEX 09/02/23 Unknown Rx 40,000-126,000-168,000 unit #320 caps capsule, delay rel (Zenpep) Allergy/AdvReac Type Severity Reaction Status Date / Time No Known Allergies Allergy Verified 08/25/24 08:32 Family History Mother Colon cancer Father Cancer Lung Sister Breast cancer Brother Cancer Lung Surgical History History of total hysterectomy History of carpal tunnel surgery History of cholecystectomy Social History household members: none Smoking Status: Former smoker alcohol intake: never substance use type: does not use caffeine: Yes Type: coffee Number of servings: 2 EXAM Physical Exam Const Vital Signs: 08/25/24 08:29 08/25/24 10:28 08/25/24 11:20 Temperature 98.6 F 98.2 F Temperature Source Temporal Pulse Rate 91 86 70 Respiratory Rate 18 16 18 Blood Pressure 151/94 (more content not included)... Normal [facility] H AND P Exam - [facility] 08-25-2024 H&P Exam - Hospitalist [facility] Medical Records Department [address] [place] [address] H P Exam - Hospitalist 08/25/241942 MR#: [id number] Acct: [id number] Name: AUGUSTINE PENA GOPAL Rep #: [id number] : 1955 69 From: Ranjeet Escobar DO PCP: Dr. Mauro Krishnamurthy MD Status:ADM IN [place] [facility] [facility] HPI - General General Date of Admission: 08/25/24 Date of Service: 08/25/24 Chief Complaint: Abdominal pain HPI Narrative AUGUSTINE PENA, is a 69 F who presents to the emergency room at [facility] with epigastric abdominal pain. Patient has a previous history of pancreatitis and this was felt to be secondary to cholelithiasis. She had a cholecystectomy in the past. Since then she has had an episode of pancreatitis. Patient used to follow-up with gastroenterology but has not followed up with them in a while. She is currently on pancreatic enzyme supplements. Patient denies any alcohol abuse. Patient stated that yesterday she developed nausea and vomiting and thought it was a viral illness. She then had epigastric pain that is progressively worsened. Labs were obtained in the emergency room, CBC was unremarkable, chemistry profile was unremarkable, bilirubin was elevated at 1.4, liver enzymes were unremarkable, lipase was elevated at 474. CT of the abdomen and pelvis showed acute on chronic pancreatitis. Patient was admitted to [place] [address] for acute recurrent pancreatitis, he will be placed on IV fluids and a liquid diet, IV pain medications will be administered as needed. [facility] Medical History (Updated 08/26/24 @ 17:[address] Ranjeet Escobar, DO) Morbid obesity Vision changes GCA (giant cell arteritis) Anemia Chronic pain Osteoporosis Anxiety and depression Lung nodules Pure hypercholesterolemia Thoracic aortic aneurysm without rupture Essential hypertension Pancreatitis GERD (gastroesophageal reflux disease) Morbid obesity Colon polyps Former smoker Poor dentition Osteoarthritis Multiple thyroid nodules Home Medications ???Medication ???Instructions ???Recorded ???Last Taken ???Type calcium 600 mg (as 1 tab PO DAILY SUPPLEMENT 10/16/21 02/21/23 History carbonate)-vitamin D3 10 mcg (400 unit) tablet metoprolol succinate 25 mg 25 mg PO DAILY BLOOD PRESSURE #90 01/08/23 02/21/23 Rx tablet,extended release 24 hr tabs bupropion HCl 150 mg 24 hr tablet, 150 mg PO DAILY DEPRESSION 02/04/23 02/21/23 History extended release ergocalciferol (vitamin D2) 1,250 1,250 mcg PO TH 02/04/23 02/21/23 History mcg (50,000 unit) capsule sertraline 50 mg tablet 100 mg PO DAILY DEPRESSION 02/04/23 02/21/23 History tocilizumab 162 mg/0.9 mL 162 mg subcut Q7D RHEUMATOID 02/04/23 08/17/24 History subcutaneous pen injector (Actemra ARTHRITIS ACTPen) potassium chloride 20 mEq 20 meq PO DAILY SUPPLEMENT 7 days 02/11/23 02/21/23 Rx tablet,extended release #7 tabs omeprazole 20 mg capsule,delayed 40 mg (2 x 20 mg) PO DAILY ACID 02/23/23 02/21/23 Rx release REFLUX 30 days #0 caps amlodipine 10 mg tablet 10 mg PO DAILY #0 tabs 03/02/23 Unknown Rx [id number] See Rx Instructions PO .COMPLEX 09/02/23 Unknown Rx 40,000-126,000-168,000 unit #320 caps capsule, delay rel (Zenpep) scopolamine base 1 mg over 3 days 1 patch transdermal Q3D PRN nausea 08/25/24 Unknown History transdermal patch Allergy/AdvReac Type Severity Reaction Status Date / Time No Known Allergies Allergy Verified 08/25/24 08:32 Family History Mother Colon cancer Father Cancer Lung Sister Breast cancer Brother Cancer Lung Surgical History History of total hysterectomy History of carpal tunnel surgery History of cholecystectomy Social History household members: none Smoking Status: Former smoker alcohol intake: never substance use type: does not use caffeine: Yes Type: coffee Number of servings: 2 ROS Constitutional Constitutional: Denies anorexia, change in weight, chills, fatigue, fever(s), night sweats or weakness Eyes Eyes: Denies blurry vision, change in vision, discharge from eye(s) or eye pain Cardiovascular Cardiovascular: Denies chest pain, claudication, edema or palpitations Respiratory/Chest Respiratory/Chest: Denies cough, hemoptysis, shortness of breath at rest or shortness of breath with exertion Gastrointestinal Gastrointestinal: Reports abdominal pain; Denies constipation, diarrhea, dyspepsia, hematemesis, hematochezia, melena, nausea or vomiting Genitourinary Genitourinary: Denies dysuria, hematuria, urinary frequency, urinary hesitancy, urinary incontinence or urinary urgency Musculoskeletal Musculoskeletal: Denies back pain, joint pain, joint stiffness, joint swel (more content not included)... Normal [facility] Lipaseon 08-25-2024 Lipase [Catalytic activity/Vol] 474 U/L High 13-75 [facility] Comment on above: Result Comment: Robert blair note: LIPASE revised reference range effective 22. New Lipase methodology. Expected to produce lower values than the previous assay method. NEW Reference Range: 13 - 75 U/L Performed By: #### L 501.2450, L500.4050, L100.0100 #### [facility] [address] [place], [place], [id number] Urinalysis, Completeon 08-25 EPI,SQUAMOUS 0-5 SEEN Normal 5-10 [facility] Comment on above: Order Comment: CLEAN CATCH Performed By: #### L 400.0001 #### [facility] [address] [place], [address] RBC 0-5 SEEN Normal 0-5 [facility] Comment on above: Order Comment: CLEAN CATCH Performed By: #### L 400.0001 #### [facility] [address] [place], [address] WBC 10-25 SEEN Normal 0-5 [facility] Comment on above: Order Comment: CLEAN CATCH Performed By: #### L 400.0001 #### [facility] [address] [place], [address] BACTERIA 0 SEEN Normal None Seen [facility] Comment on above: Order Comment: CLEAN CATCH Performed By: #### L 400.0001 #### [facility] [address] [place], [address] Mucus Ql (Urine sed) 0 SEEN Normal [facility] Comment on above: Order Comment: CLEAN CATCH Performed By: #### L 400.0001 #### [facility] [address] [place], [place], [id number] [facility]20[facility] ----- AUGUSTINE PENA ([id number]) 1955 F Date Time Provider Department 06/30/24 MAURO KRISHNAMURTHY [facility] During your visit today, we recorded the following information about you: Mauro Krishnamurthy MD 06/30/2024 4:59 PM Signed Thryoid us still shows several nodules that could bear closer watching.. lets have endo follow them Lolly Stover, JESSA 07/01/2024 9:40 AM Signed Pt called and is notified of providers results and instructions. Pt voices understanding. Lolly Stover RN Allergies As of Date: 06/30/2024 (No Known Allergies) Date Reviewed: 05/22/2024 Reviewed by: Dee Dee Cooper MA - Fully Assessed Reason for Visit: Results [95] Primary Visit Diagnosis:Thyroid nodule [E04.1] Order(s):CONSULT TO ENDOCRINOLOGY [9002] Order #: [id number]: 1 FUTURE Prescriptions as of 07/01/2024 - amLODIPine (NORVASC) 10 mg tablet Take 1 tablet by mouth once daily. - pantoprazole DR (PROTONIX) 40 mg tablet Take 1 tablet by mouth once daily. - calcium carbonate 600 mg-cholecalciferol 400 units 600 mg-10 mcg (400 unit) tab Take 1 tablet by mouth once daily. - ergocalciferol 50,000 unit capsule (VITAMIN D2, DRISDOL) Take 1 capsule by mouth one time a week. - scopolamine (TRANSDERM-SCOP) patch 1.5 mg/72 hr (delivers 1 mg over 3 days) Apply 1 Patch as directed every 72 hours. - potassium chloride ER (KLOR-CON) 20 mEq tablet Take 1 tablet by mouth once daily. - metoprolol succinate ER (TOPROL XL) 25 mg 24 hr tablet Take 1 tablet by mouth once daily. - ZENPEP 40,000-126,000- 168,000 unit delayed release capsule - tocilizumab (ACTEMRA ACTPEN) 162 mg/0.9 mL Inject 162mg (1 pen) under the skin one time each week. - Shower Chair with Back once daily. Use as directed - sertraline (ZOLOFT) 50 mg tablet Take 50 mg by mouth once daily. Taking 150 mg Daily - buPROPion XL (WELLBUTRIN XL) 150 mg 24 hr tablet - ibuprofen (MOTRIN ORAL) Take by mouth as needed. - nystatin (MYCOSTATIN) cream Apply 1 application to affected area twice daily. - Incontinence Pants, Reusable misc 5 Units continuous. 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 AAA (abdominal aortic aneurysm) [I71.40] 04/09/2013 Depression [F32.A] 06/26/2023 Lung nodules [R91.8] 05/15/2024 Hypercholesteremia [E78.00] Hypertension [I10] 11/28/2016 History of colonic polyps [Z86.0100] 04/05/2016 Primary osteoarthritis of right knee [M17.11] 06/14/2016 Chronic pain of right knee [M25.561, G89.29] 06/14/2016 Acute biliary pancreatitis without infection or*10/22/2016 06/26/2023 Essential hypertension [I10] 11/28/2016 Thoracic ascending aortic aneurysm (HCC) [I71.2*11/28/2016 Carpal tunnel syndrome, left [G56.02] 10/29/2017 Obesity, Class III, BMI >= 40 [E66.01] 04/10/2021 Age-related osteoporosis without current pathol*07/18/2021 Dysphagia [R13.10] 09/25/2021 PMR (polymyalgia rheumatica) (HCC) [M35.3] 08/23/2022 Ectatic thoracic aorta (HCC) [I77.810] 09/12/2022 09/12/2022 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] 01/17/2023 Acidosis [E87.20] 10/11/2016 04/20/2023 Benign paroxysmal positional vertigo [H81.10] 02/18/2023 Diagnosed: 02/18/2023 Cough [R05.9] 10/11/2016 06/26/2023 Diagnosed: 02/18/2023 Dehydration [E86.0] 02/18/2023 Diagnosed: 02/18/2023 Disorder of tooth [K08.9] 02/18/2023 Diagnosed: 02/18/2023 Former smoker [Z87.891] 02/18/2023 Diagnosed: 02/18/2023 Functional dyspepsia [K30] 10/11/2016 Diagnosed: 02/18/2023 Gastroesophageal reflux disease [K21.9] 02/18/2023 05/15/2024 Diagnosed: 02/18/2023 Hypoglycemia, unspecified [E16.2] 10/11/2016 Diagnosed: 02/18/2023 Injury of kidney [S37.009A] 02/18/2023 Diagnosed: 02/18/2023 Major depressive disorder, recurrent, mild (HCC*10/11/2016 Diagnosed: 02/18/2023 Muscle weakness (generalized) [M62.81] 10/11/2016 Diagnosed: 02/18/2023 Constipation, unspecified [K59.00] 10/11/2016 Diagnosed: 02/18/2023 Orthostatic hypotension [I95.1] 02/18/2023 Diagnosed: 02/18/2023 Osteoarthritis [M19.90] 11/07/2022 Diagnosed: 02/18/2023 Polyp of colon [K63.5] 02/18/2023 Diagnosed: 02/18/2023 Shortness of breath [R06.02] 12/19/2022 06/26/2023 Diagnosed: 02/18/2023 Swelling of lower extremity [M79.89] 02/18/2023 Diagnosed: 02/18/2023 Unspecified abdominal pain [R10.9] 10/11/2016 05/15/2024 Diagnosed: 02/18/2023 Urinary tract infection [N39.0] 02/18/2023 Diagnosed: 02/18/2023 Hypophosphatemia [E83.39] 03/02/2023 Diagnosed: 07/29/2023 Chronic pancreatitis (HCC) [K86.1] 03/02/2023 Diagnosed: 07/29/2023 Encounter Status:Closed by LOLLY STOVER on 07/01/24 [facility] Martita 06-29-2024 CNPN Telephone ([facility]) ----- AUGUSTINE PENA ([id number]) 1955 F Date Time Provider Department 06/29/24 MAURO KRISHNAMURTHY [facility] During your visit today, we recorded the following information about you: Mauro Krishnamurthy MD 06/29/2024 4:19 PM Signed Bone density shows osteoporosis. Spine is worse than it had been in the past. If willing to consider meds, come in to discuss with one of us Patrizia Moser LPN 06/30/2024 9:00 AM Signed Patient notified. Verbalized understanding. Scheduled. Allergies As of Date: 06/29/2024 (No Known Allergies) Date Reviewed: 05/22/2024 Reviewed by: Dee Dee Cooper MA - Fully Assessed Reason for Visit: Results [95] Prescriptions as of 06/30/2024 - amLODIPine (NORVASC) 10 mg tablet Take 1 tablet by mouth once daily. - pantoprazole DR (PROTONIX) 40 mg tablet Take 1 tablet by mouth once daily. - calcium carbonate 600 mg-cholecalciferol 400 units 600 mg-10 mcg (400 unit) tab Take 1 tablet by mouth once daily. - ergocalciferol 50,000 unit capsule (VITAMIN D2, DRISDOL) Take 1 capsule by mouth one time a week. - scopolamine (TRANSDERM-SCOP) patch 1.5 mg/72 hr (delivers 1 mg over 3 days) Apply 1 Patch as directed every 72 hours. - potassium chloride ER (KLOR-CON) 20 mEq tablet Take 1 tablet by mouth once daily. - metoprolol succinate ER (TOPROL XL) 25 mg 24 hr tablet Take 1 tablet by mouth once daily. - ZENPEP 40,000-126,000- 168,000 unit delayed release capsule - tocilizumab (ACTEMRA ACTPEN) 162 mg/0.9 mL Inject 162mg (1 pen) under the skin one time each week. - Shower Chair with Back once daily. Use as directed - sertraline (ZOLOFT) 50 mg tablet Take 50 mg by mouth once daily. Taking 150 mg Daily - buPROPion XL (WELLBUTRIN XL) 150 mg 24 hr tablet - ibuprofen (MOTRIN ORAL) Take by mouth as needed. - nystatin (MYCOSTATIN) cream Apply 1 application to affected area twice daily. - Incontinence Pants, Reusable misc 5 Units continuous. 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*03/31/2013 AAA (abdominal aortic aneurysm) [I71.40] 04/09/2013 Depression [F32.A] 06/26/2023 Lung nodules [R91.8] 05/15/2024 Hypercholesteremia [E78.00] Hypertension [I10] 11/28/2016 History of colonic polyps [Z86.0100] 04/05/2016 Primary osteoarthritis of right knee [M17.11] 06/14/2016 Chronic pain of right knee [M25.561, G89.29] 06/14/2016 Acute biliary pancreatitis without infection or*10/22/2016 06/26/2023 Essential hypertension [I10] 11/28/2016 Thoracic ascending aortic aneurysm (HCC) [I71.2*11/28/2016 Carpal tunnel syndrome, left [G56.02] 10/29/2017 Obesity, Class III, BMI >= 40 [E66.01] 04/10/2021 Age-related osteoporosis without current pathol*07/18/2021 Dysphagia [R13.10] 09/25/2021 PMR (polymyalgia rheumatica) (HCC) [M35.3] 08/23/2022 Ectatic thoracic aorta (HCC) [I77.810] 09/12/2022 09/12/2022 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] 01/17/2023 Acidosis [E87.20] 10/11/2016 04/20/2023 Benign paroxysmal positional vertigo [H81.10] 02/18/2023 Diagnosed: 02/18/2023 Cough [R05.9] 10/11/2016 06/26/2023 Diagnosed: 02/18/2023 Dehydration [E86.0] 02/18/2023 Diagnosed: 02/18/2023 Disorder of tooth [K08.9] 02/18/2023 Diagnosed: 02/18/2023 Former smoker [Z87.891] 02/18/2023 Diagnosed: 02/18/2023 Functional dyspepsia [K30] 10/11/2016 Diagnosed: 02/18/2023 Gastroesophageal reflux disease [K21.9] 02/18/2023 05/15/2024 Diagnosed: 02/18/2023 Hypoglycemia, unspecified [E16.2] 10/11/2016 Diagnosed: 02/18/2023 Injury of kidney [S37.009A] 02/18/2023 Diagnosed: 02/18/2023 Major depressive disorder, recurrent, mild (HCC*10/11/2016 Diagnosed: 02/18/2023 Muscle weakness (generalized) [M62.81] 10/11/2016 Diagnosed: 02/18/2023 Constipation, unspecified [K59.00] 10/11/2016 Diagnosed: 02/18/2023 Orthostatic hypotension [I95.1] 02/18/2023 Diagnosed: 02/18/2023 Osteoarthritis [M19.90] 11/07/2022 Diagnosed: 02/18/2023 Polyp of colon [K63.5] 02/18/2023 Diagnosed: 02/18/2023 Shortness of breath [R06.02] 12/19/2022 06/26/2023 Diagnosed: 02/18/2023 Swelling of lower extremity [M79.89] 02/18/2023 Diagnosed: 02/18/2023 Unspecified abdominal pain [R10.9] 10/11/2016 05/15/2024 Diagnosed: 02/18/2023 Urinary tract infection [N39.0] 02/18/2023 Diagnosed: 02/18/2023 Hypophosphatemia [E83.39] 03/02/2023 Diagnosed: 07/29/2023 Chronic pancreatitis (HCC) [K86.1] 03/02/2023 Diagnosed: 07/29/2023 Encounter Status:Closed by PATRIZIA MOSER on 06/30/24 [facility] BD DXA - AXIAL SKELETONon BD DXA - AXIAL SKELETON * * *Final Repor t* * * DATE OF EXAM: Jun 26 2024 9:46AM WRB 0804 - BD DXA - AXIAL SKELETON / PROCEDURE REASON: Other osteoporosis * * * * Physician Interpretation * * * * EXAMINATION: DXA BONE DENSITOMETRY BD DXA - AXIAL SKELETON PATIENT DEMOGRAPHICS: Age: 68 years, Gender: Female SCANNER INFORMATION: DXA Model: [employer] - Bjond C [id number] Date Scanned: 06/26/2024 9:46 AM CLINICAL HISTORY: DIAGNOSTIC Other osteoporosis . RISK FACTORS FOR OSTEOPOROSIS AND ASSOCIATED FRACTURES REPORTED BY THIS PATIENT: Please refer to Bone Health Questionnaire in the EMR CURRENT THERAPY: Please refer to Bone Health Questionnaire in the EMR TECHNICAL LIMITATIONS: None RESULTS: Lumbar spine (L1, L2, L3, L4): 0.877 g/cm2, T-score -1.5, Z-score 0.5 Lumbar spine: 2020: 0.813 g/cm2 Statistically significant increase Right Femoral Neck: 0.519 g/cm2, T-score -3.0, Z-score -1.2 Right Femoral Neck: 2020: 0.545 g/cm2 No statistically significant change Right Total Hip: 0.666 g/cm2, T-score -2.3, Z-score -0.8 Right Total Hip: 2020: 0.659 g/cm2 No statistically significant change Left Femoral Neck: 0.605 g/cm2, T-score -2.2, Z-score -0.5 Left Femoral Neck: 2020: 0.597 g/cm2 No statistically significant change Left Total Hip: 0.787 g/cm2, T-score -1.3, Z-score 0.2 Left Total Hip: 2020: 0.796 g/cm2 No statistically significant change CHANGE IS STATISTICALLY SIGNIFICANT IN THE SPINE OR HIP IF GREATER THAN OR EQUAL TO 0.04 g/cm2 VERTEBRAL FRACTURE ASSESSMENT Not performed. IMPRESSION: THE LOWEST T-SCORE IS -3.0 IN THE RIGHT HIP 1) DIAGNOSIS (based on BMD alone): OSTEOPOROSIS Caution: Medical conditions other than osteoporosis may cause low bone density, such as osteomalacia or renal osteodystrophy. Clinical correlation is necessary. 2) FRACTURE RISK (based on FRAX): 10-year absolute fracture risk: - major osteoporotic fracture = 23 % - hip fracture = 6.8 % - A diagnosis of Osteoporosis, a 10 year probability of hip fracture greater than or equal to 3% or a 10 year probability of any major osteoporosis-related fracture greater than or equal to 20% should be considered for treatment. - DXA scanner generated FRAX calculations may slightly differ from online FRAX calculations due to differences in software versions. - All recommendations and calculations are to be considered as guidelines and should not replace sound clinical judgement - Caution: Fracture risk may be increased independent of BMD in patients with corticosteroid use, age greater than 65 years, or a history of prior fragility fracture. RECOMMENDATIONS: Follow-up in 2 years or as clinically indicated. Patients that are taking corticosteroids, are transplant recipients or have hyperparathyroidism should have annual follow-up. Follow-up scans should always be done on the same machine for accurate comparison. FOR MORE INFORMATION ABOUT DIAGNOSIS AND TREATMENT: [facility] Osteoporosis and Metabolic Bone Disease:? www.ccf.org/arthritis/ost eo National Osteoporosis Foundation:? www.nof.org International Society of Clinical Densitometry www.iscd.org Carbide Grinder: NELL Transcribe Date/Time: Jun 29 2024 12:55P Dictated by : CARLOS LESLIE MD This examination was interpreted and the report reviewed and electronically signed by: CARLOS LESLIE MD on Jun 29 2024 12:57PM EST [id number] -3.0 Normal [facility] US THYROID/PARATHYROIDon US THYROID/PARATHYROID * * *Final Report * * * DATE OF EXAM: Jun 26 2024 10:29AM U 1048 - US THYROID/PARATHYROID / PROCEDURE REASON: Thyroid nodule * * * * Physician Interpretation * * * * EXAMINATION: THYROID ULTRASOUND CLINICAL HISTORY: Thyroid nodule TECHNIQUE: Sonography and Doppler imaging of the thyroid was performed. Images were obtained and stored in a permanent archive. MQ: UST_1 COMPARISON: 02/27/2022 and 01/18/2021 RESULT: Right Lobe: 4 x 1.8 x 1.7 cm; homogeneous echogenicity, expected vascular flow. Left Lobe: 4.2 x 1.5 x 1.1 cm; homogeneous echogenicity, expected vascular flow. Isthmus: 0.6 cm The most suspicious thyroid nodule(s) (up to four) as below: NODULE 1: Location: Right mid Size: 1.8 x 1.3 x 1.2 cm Characteristics: Composition: Solid or almost completely solid, 2 points Echogenicity: Echogenicity cannot be determined, 1 point Shape: Ukqvh-xepy-wyid, 0 points Margin: Smooth, 0 points Echogenic foci (add points for all that apply): Punctate echogenic foci, 3 points Internal vascularity: present Interval growth: No significant growth given differences in technique TI-RADS Category: TR4 ACR Recommendation: TI-RADS 4 nodule. FNA is recommended. NODULE 2: Location: Inferior right Size: 1 x 1 x 0.7 cm Characteristics: Composition: Solid or almost completely solid, 2 points Echogenicity: Echogenicity cannot be determined, 1 point Shape: Divmx-pxqv-npja, 0 points Margin: Smooth, 0 points Echogenic foci (add points for all that apply): None, 0 points Internal vascularity: present Interval growth: No significant growth given differences in technique TI-RADS Category: TR3 ACR Recommendation: TI-RADS 3 nodule. No FNA or further imaging is advised. IMPRESSION: Thyroid nodule(s) is/are present. Fine needle aspiration is recommended if not previously performed. TI-RADS Category: TR4 ACR Recommendation: TI-RADS 4 nodule. FNA is recommended. ACR recommendations are strictly based on the size and imaging appearance at the time of the exam and do not consider stability or previous biopsy results. ACTIONABLE RESULT: FOLLOW-UP Acuity: Actionable Findings: Endocrine (thyroid) Routing Code: EMI_1 Recommendation: Unlisted Recommendation (see report) Time Frame: At the discretion of the clinical team. COMMUNICATION: Results will be communicated with the ordering provider via fsboWOW staff message or phone message by [facility] within 2 business days of report finalization. --END OF FINDING-- Carbide Grinder: NELL Transcribe Date/Time: Jun 30 2024 4:27P Dictated by : BAR ZAMORA MD This examination was interpreted and the report reviewed and electronically signed by: BAR ZAMORA MD on Jun 30 2024 4:39PM EST [id number] ACTIONABLE Invalid Interpretation Code [facility] CBC W Auto Differential pane l (Bld)on 05-22-2024 Basophils (Bld) [#/Vol] 0.06 10*3/uL [facility] Basophils/100 WBC (Bld) 0.9 % C [facility] Differential cell count method Nom (Bld) Auto [facility] Eosinophils (Bld) [#/Vol] 0.27 10*3/uL [facility] Eosinophils/100 WBC (Bld) 4.0 % [facility] Erythrocyte distribution width (RBC) [Ratio] 12.7 % 11.5 - 15.0 % [facility] Hematocrit (Bld) [Volume fraction] 34.8 % Low 36.0 - 46.0 % [facility] Hemoglobin (Bld) [Mass/Vol] 11.5 g/dL 11.5 - 15.5 g/dL [facility] Immature granulocytes (Bld) [#/Vol] 0.03 10*3/uL [facility] Immature granulocytes/100 WBC (Bld) 0.4 % [facility] Interpretation and review of laboratory results Abnormal [facility] Lymphocytes (Bld) [#/Vol] 1.62 10*3/uL [facility] Lymphocytes/100 WBC (Bld) 24.1 % [facility] MCH (RBC) [Entitic mass] 28.0 pg 26. 0 - 34.0 pg [facility] MCHC (RBC) [Mass/Vol] 33.0 g/dL 30.5 - 36.0 g/dL [facility] MCV (RBC) [Entitic vol] 84.9 fL 80.0 - 100.0 fL [facility] Monocytes (Bld) [#/Vol] 0.57 10*3/uL [facility] Monocytes/100 WBC (Bld) 8.5 % [facility] Neutrophils (Bld) [#/Vol] 4.18 10*3/uL [facility] Neutrophils/100 WBC (Bld) 62.1 % [facility] Nucleated RBC (Bld) [#/Vol] [facility] Nucleated RBC/100 WBC (Bld) [Ratio] 0.0 % /100 WBC [facility] Platelet mean volume (Bld) [Entitic vol] 8.8 fL Low 9.0 - 12.7 fL [facility] Platelets (Bld) [#/Vol] 172 10*3/uL [facility] RBC (Bld) [#/Vol] 4.10 10*6/uL 3.90 - 5.20 m/uL [facility] WBC (Bld) [#/Vol] 6.73 10*3/uL [facility] Comprehensive metabolic 2000 panelOrdered By: Noni Hemphill on 10-11-2024 Albumin [Mass/Vol] 4.4 g/dL 3.9 - 4.9 g/dL [facility] ALP [Catalytic activity/Vol] 54 U/L 34 - 123 U/L [facility] ALT [Catalytic activity/Vol] 9 U/L 7 - 38 U/L [facility] Anion gap [Moles/Vol] 9 mmol/L 8 - 15 mmol/L [facility] AST [Catalytic activity/Vol] 14 U/L 13 - 35 U/L [facility] Bilirubin [Mass/Vol] 0.6 mg/dL 0.2 - 1 .3 mg/dL [facility] Calcium [Mass/Vol] 9.2 mg/dL 8.5 - 10. 2 mg/dL [facility] Chloride [Moles/Vol] 108 mmol/L High 98 - 10 7 mmol/L [facility] CO2 [Moles/Vol] 26 mmol/L 22 - 30 mmol/L [facility] Creatinine [Mass/Vol] 0.94 mg/dL 0.58 - 0.96 mg/dL [facility] GFR/1.73 sq M.predicted among non-blacks MDRD (S/P/Bld) [Vol rate/Area] 66 mL/min/{1.73_m2} - PINF [facility] Comment on above: Estimated Glomerular Filtration Rate (eGFR) is calculated using the 2020 CKD-EPI creatinine equation. This equation utilizes serum creatinine, sex, and age as parameters. The creatinine assay has traceable calibration to isotope dilution-mass spectrometry. Refer to KDIGO guidelines for clinical interpretation. In patients with unstable renal function, e.g. those with acute kidney injury, the eGFR may not accurately reflect actual GFR. Glucose [Mass/Vol] 90 mg/dL 74 - 99 mg/dL [facility] Comment on above: The [place] Diab[employer] s Association (ADA) provides guidance for cutoff values for fasting glucose and random glucose. The ADA defines fasting as no caloric intake for at least 8 hours. Fasting plasma glucose results between 100 to 125 mg/dL indicate increased risk for diabetes (prediabetes). Fasting plasma glucose results greater than or equal to 126 mg/dL meet the criteria for diagnosis of diabetes. In the absence of unequivocal hyperglycemia, results should be confirmed by repeat testing. In a patient with classic symptoms of hyperglycemia or hyperglycemic crisis, random plasma glucose results greater than or equal to 200 mg/dL meet the criteria for diagnosis of diabetes. Reference: Standards of Medical Care in Diabetes 2016, [place] Diabetes Association. Diabetes Care. 2016.39(Suppl 1). Interpretation and review of laboratory results Abnormal [facility] Potassium [Moles/Vol] 4.9 mmol/L 3.7 - 5.1 mmol/L [facility] Protein [Mass/Vol] 6.2 g/dL Low 6.3 - 8.0 g/dL [facility] Sodium [Moles/Vol] 143 mmol/L 136 - 144 mmol/L [facility] Urea nitrogen [Mass/Vol] 20 mg/dL 7 - 21 mg/dL [facility] ECG COMPLETEon 10-09-2023 Atrial Rate 54 BPM [facility] Calculated P [place] 49 degrees [facility] Calculated R [place] -28 degrees [facility] Calculated T [place] 18 degrees [facility] P-R Interval 208 ms [facility] QRS Duration 80 ms [facility] QT Interval 460 ms [facility] QTC Calculation ([place]) 436 ms [facility] Center Ventricular Rate 54 BPM [facility] Basic metabolic 2000 panelon 06-27-2023 Anion gap [Moles/Vol] 9 mmol/L 9 - 18 mmol/L [facility] Calcium [Mass/Vol] 10.0 mg/dL 8.5 - 10. 2 mg/dL [facility] Chloride [Moles/Vol] 105 mmol/L 97 - 10 5 mmol/L [facility] CO2 [Moles/Vol] 25 mmol/L 22 - 30 mmol/L [facility] Creatinine [Mass/Vol] 1.17 mg/dL High 0.58 - 0.96 mg/dL [facility] Estimated Glomerular Filtration Rate 51 mL/min/1.73m Low >=60 mL/min/1.7 3m [facility] Glucose [Mass/Vol] 81 mg/dL 74 - 99 mg/dL [facility] Potassium [Moles/Vol] 5.1 mmol/L 3.7 - 5.1 mmol/L [facility] Sodium [Moles/Vol] 139 mmol/L 136 - 144 mmol/L [facility] Urea nitrogen [Mass/Vol] 21 mg/dL 7 - 21 mg/dL [facility] C-REACTIVE PROTEIN (CRP)on 08-27-2022 CRP [Mass/Vol] <0.9 mg/dL [facility] ESR Westergren method (Bld) [Velocity]on 06-27-2023 ESR (Bld) [Velocity] 5 mm/h 0 - 20 mm/hr [facility] CBC W Auto Differential pane l (Bld)on 06-26-2023 Basophils (Bld) [#/Vol] 0.05 10*3/uL <0.11 k/uL [facility] Basophils/100 WBC (Bld) 1.3 % C [facility] Differential cell count method Nom (Bld) Auto [facility] Eosinophils (Bld) [#/Vol] 0.16 10*3/uL <0.46 k/uL [facility] Eosinophils/100 WBC (Bld) 4.3 % [facility] Erythrocyte distribution width (RBC) [Ratio] 12.8 % 11.5 - 15.0 % [facility] Hematocrit (Bld) [Volume fraction] 33.5 % Low 36.0 - 46.0 % [facility] Hemoglobin (Bld) [Mass/Vol] 11.1 g/dL Low 11.5 - 15.5 g/dL [facility] Immature granulocytes (Bld) [#/Vol] <0.10 k/uL [facility] Immature granulocytes/100 WBC (Bld) 0.3 % [facility] Lymphocytes (Bld) [#/Vol] 1.24 10*3/uL 1.00 - 4.00 k/uL [facility] Lymphocytes/100 WBC (Bld) 33.2 % [facility] MCH (RBC) [Entitic mass] 28.4 pg 26. 0 - 34.0 pg [facility] MCHC (RBC) [Mass/Vol] 33.1 g/dL 30.5 - 36.0 g/dL [facility] MCV (RBC) [Entitic vol] 85.7 fL 80.0 - 100.0 fL [facility] Monocytes (Bld) [#/Vol] 0.72 10*3/uL <0.87 k/uL [facility] Monocytes/100 WBC (Bld) 19.3 % [facility] Neutrophils (Bld) [#/Vol] 1.56 10*3/uL 1.45 - 7.50 k/uL [facility] Neutrophils/100 WBC (Bld) 41.6 % [facility] Nucleated RBC (Bld) [#/Vol] <0.01 k/uL [facility] Nucleated RBC/100 WBC (Bld) [Ratio] 0.0 /100 WBC [facility] Platelet mean volume (Bld) [Entitic vol] 9.6 fL 9.0 - 12.7 fL [facility] Platelets (Bld) [#/Vol] 218 10*3/uL 150 - 400 k/uL [facility] RBC (Bld) [#/Vol] 3.91 10*6/uL 3.90 - 5.20 m/uL [facility] WBC (Bld) [#/Vol] 3.74 10*3/uL 3.70 - 11.00 k/uL [facility] Absolute lymphocyte countOrd ered By: Vin Gatica on 06-18-2023 Lymphocytes Auto (Unsp spec) [#/Vol] 1.22 10*3/uL 0.83-4.51 [facility] Basophil percentageOrdered B y: Vin Gatica on 06-18-2023 Basophil percentage 87 mg/dL 74-106 [facility] Basophil percentage 5.4 g/dL 6.4-8.2 [facility] Basophil percentage 1.30 mg/dL 0.20-1.00 [facility] Basophil percentage 142 mmol/L 136-145 [facility] Basophil percentage 3.8 mmol/L 3.5-5.1 [facility] Basophil percentage 112 mmol/L 98-107 [facility] Basophils (Bld) [#/Vol] 2.7 10*3/uL 4.4-11.0 [facility] Basophils (Bld) [#/Vol] 0.8 10*3/uL 2.0-7.7 [facility] Basophils/100 WBC (Bld) 27.9 % 47-70 [facility] Basophils/100 WBC (Bld) 6.0 % 0-5 [facility] Basophils/100 WBC (Bld) 1.5 % 0-1 [facility] Blood erythrocytes count (nu mber/volume)Ordered By: Vin Gatica on 06-18-2023 RBC (Bld) [#/Vol] 3.42 10*6/uL 4.2-5.4 [facility] Blood hemoglobin measurement (mass/volume)Ordered By: Vin Gatica on 06-18-2023 Hemoglobin (Bld) [Mass/Vol] 9.3 g/dL 12.0-15.0 [facility] Blood lymphocytes/100 leukoc ytesOrdered By: Vin Gatica on 06-18-2023 Lymphocytes/100 WBC (Bld) 45.5 % 19-41 [facility] Blood manual differential co mment interpretation (narrative result)Ordered By: Vin Gatica on 06-18-2023 Manual differential comment Angel (Bld) [Interp] COMMENT [facility] Blood monocytes/100 leukocyt esOrdered By: Vin Gatica on 06-18-2023 Monocytes/100 WBC (Bld) 18.7 % 0-10 [facility] Blood platelet mean volumeOr dered By: Vin Gatica on 06-18-2023 Platelet mean volume (Bld) [Entitic vol] 10.0 fL 6.2-12.0 [facility] Determination of erythrocyte mean corpuscular volume (MCV)Ordered By: Vin Gatica on 06-18-2023 MCV (RBC) [Entitic vol] 87.7 fL 81-99 [facility] Hematocrit Auto (Bld) [Volum e fraction]Ordered By: Vin Gatica on 06-18-2023 Hematocrit (Bld) [Volume fraction] 30.0 % 37-47 [facility] MCHC Auto (RBC) [Mass/Vol]Or dered By: Vin Gatica on 06-18-2023 MCHC (RBC) [Mass/Vol] 31.0 g/dL 32-36 [facility] No Panel InformationOrdered By: Vin Gatica on 06-18-2023 27.2 pg 27.0-32.0 [facility] 12.6 % 11.6-14.6 [facility] 40.3 fl 35.1-43.9 [facility] 0.400 % 0.0-0.9 [facility] 0 % 0-5 [facility] 58 mL/min >60 [facility] 70 mL/min >60 [facility] 15.8 RATIO 10-20 [facility] 2.1 g/dL 2.2-4.2 [facility] 41 U/L 45-117 [facility] 21 U/L 13-56 [facility] 25.0 mmol/L 21.0-32.0 [facility] Platelets bldOrdered By: Anton yadeepti Gatica on 06-18-2023 Platelets (Bld) [#/Vol] 189 10*3/uL 150-450 [facility] Serum or plasma albumin shannan urement (mass/volume)Ordered By: Vin Gatica on 06-18-2023 Albumin [Mass/Vol] 3.3 g/dL 3.2-5.0 [facility] Serum or plasma albumin/glob ulin mass ratioOrdered By: Vin Gatica on 06-18-2023 Albumin/Globulin [Mass ratio] 1.6 {ratio} 0.9-2.4 [facility] Serum or plasma calcium shannan urement (mass/volume)Ordered By: Vin Gatica on 06-18-2023 Calcium [Mass/Vol] 8.6 mg/dL 8.5-10.1 [facility] Serum or plasma creatinine m easurement (mass/volume)Ordered By: Vin Gatica on 06-18-2023 Creatinine [Mass/Vol] 1.01 mg/dL 0.55-1.02 [facility] Serum or plasma urea nitroge n measurement (mass/volume)Ordered By: Vin Gatica on 06-18-2023 Urea nitrogen [Mass/Vol] 16 mg/dL 7-18 [facility] Thin prep Papanicolaou smear with manual screeningOrdered By: Vin Gatica on 06-18-2023 Thin prep Papanicolaou smear with manual screening 24 U/L 15-37 [facility] Thin prep Papanicolaou smear with manual screening 5 5-15 [facility] Absolute lymphocyte countOrd ered By: Vin Gatica on 06-11-2023 Lymphocytes Auto (Unsp spec) [#/Vol] 1.19 10*3/uL 0.83-4.51 [facility] Basophil percentageOrdered B y: Vin Gatica on 06-11-2023 Basophil percentage 85 mg/dL 74-106 [facility] Basophil percentage 5.3 g/dL 6.4-8.2 [facility] Basophil percentage 1.30 mg/dL 0.20-1.00 [facility] Basophil percentage 142 mmol/L 136-145 [facility] Basophil percentage 3.8 mmol/L 3.5-5.1 [facility] Basophil percentage 112 mmol/L 98-107 [facility] Basophils (Bld) [#/Vol] 2.6 10*3/uL 4.4-11.0 [facility] Basophils (Bld) [#/Vol] 0.8 10*3/uL 2.0-7.7 [facility] Basophils/100 WBC (Bld) 30.2 % 47-70 [facility] Basophils/100 WBC (Bld) 5.7 % 0-5 [facility] Basophils/100 WBC (Bld) 0.8 % 0-1 [facility] Blood erythrocytes count (nu mber/volume)Ordered By: Vin Gatica on 06-11-2023 RBC (Bld) [#/Vol] 3.45 10*6/uL 4.2-5.4 [facility] Blood hemoglobin measurement (mass/volume)Ordered By: Vin Gatica on 06-11-2023 Hemoglobin (Bld) [Mass/Vol] 9.4 g/dL 12.0-15.0 [facility] Blood lymphocytes/100 leukoc ytesOrdered By: Vin Gatica on 06-11-2023 Lymphocytes/100 WBC (Bld) 45.4 % 19-41 [facility] Blood manual differential co mment interpretation (narrative result)Ordered By: Vin Gatica on 06-11-2023 Manual differential comment Angel (Bld) [Interp] COMMENT [facility] Blood monocytes/100 leukocyt esOrdered By: Vin Gatica on 06-11-2023 Monocytes/100 WBC (Bld) 17.9 % 0-10 [facility] Blood platelet mean volumeOr dered By: Vin Gatica on 06-11-2023 Platelet mean volume (Bld) [Entitic vol] 9.5 fL 6.2-12.0 [facility] Determination of erythrocyte mean corpuscular volume (MCV)Ordered By: Vin Gatica on 06-11-2023 MCV (RBC) [Entitic vol] 87.2 fL 81-99 [facility] Hematocrit Auto (Bld) [Volum e fraction]Ordered By: Vin Gatica on 06-11-2023 Hematocrit (Bld) [Volume fraction] 30.1 % 37-47 [facility] MCHC Auto (RBC) [Mass/Vol]Or dered By: Vin Gatica on 06-11-2023 MCHC (RBC) [Mass/Vol] 31.2 g/dL 32-36 [facility] No Panel InformationOrdered By: Vin Gatica on 06-11-2023 27.2 pg 27.0-32.0 [facility] 12.4 % 11.6-14.6 [facility] 39.6 fl 35.1-43.9 [facility] 0.000 % 0.0-0.9 [facility] 0 % 0-5 [facility] 55 mL/min >60 [facility] 67 mL/min >60 [facility] 15.2 RATIO 10-20 [facility] 2.1 g/dL 2.2-4.2 [facility] 38 U/L 45-117 [facility] 21 U/L 13-56 [facility] 23.0 mmol/L 21.0-32.0 [facility] Platelets bldOrdered By: Anton Gatica on 06-11-2023 Platelets (Bld) [#/Vol] 186 10*3/uL 150-450 [facility] Serum or plasma albumin shannan urement (mass/volume)Ordered By: Vin Gatica on 06-11-2023 Albumin [Mass/Vol] 3.2 g/dL 3.2-5.0 [facility] Serum or plasma albumin/glob ulin mass ratioOrdered By: Vin Gatica on 06-11-2023 Albumin/Globulin [Mass ratio] 1.5 {ratio} 0.9-2.4 [facility] Serum or plasma calcium shannan urement (mass/volume)Ordered By: Vin Strangeghe on 06-11-2023 Calcium [Mass/Vol] 8.7 mg/dL 8.5-10.1 [facility] Serum or plasma creatinine m easurement (mass/volume)Ordered By: Vin Weaverluz on 06-11-2023 Creatinine [Mass/Vol] 1.05 mg/dL 0.55-1.02 [facility] Serum or plasma urea nitroge n measurement (mass/volume)Ordered By: Vin Alexandrdiandraluz on 06-11-2023 Urea nitrogen [Mass/Vol] 16 mg/dL 7-18 [facility] Thin prep Papanicolaou smear with manual screeningOrdered By: teresa Alexandrdiandraluz on 06-11-2023 Thin prep Papanicolaou smear with manual screening 21 U/L 15-37 [facility] Thin prep Papanicolaou smear with manual screening 7 5-15 [facility] Absolute lymphocyte countOrd ered By: Vin Gatica on 06-04-2023 Lymphocytes Auto (Unsp spec) [#/Vol] 1.14 10*3/uL 0.83-4.51 [facility] Basophil percentageOrdered B y: Vin Gatica on 06-04-2023 Basophil percentage 92 mg/dL 74-106 [facility] Basophil percentage 5.3 g/dL 6.4-8.2 [facility] Basophil percentage 1.40 mg/dL 0.20-1.00 [facility] Basophil percentage 143 mmol/L 136-145 [facility] Basophil percentage 3.9 mmol/L 3.5-5.1 [facility] Basophil percentage 113 mmol/L 98-107 [facility] Basophils (Bld) [#/Vol] 2.7 10*3/uL 4.4-11.0 [facility] Basophils (Bld) [#/Vol] 0.7 10*3/uL 2.0-7.7 [facility] Basophils/100 WBC (Bld) 27.3 % 47-70 [facility] Basophils/100 WBC (Bld) 7.5 % 0-5 [facility] Basophils/100 WBC (Bld) 1.1 % 0-1 [facility] Blood erythrocytes count (nu mber/volume)Ordered By: Vin Gatica on 06-04-2023 RBC (Bld) [#/Vol] 3.38 10*6/uL 4.2-5.4 [facility] Blood hemoglobin measurement (mass/volume)Ordered By: Vin Gatica on 06-04-2023 Hemoglobin (Bld) [Mass/Vol] 9.4 g/dL 12.0-15.0 [facility] Blood lymphocytes/100 leukoc ytesOrdered By: Vin Gatica on 06-04-2023 Lymphocytes/100 WBC (Bld) 42.5 % 19-41 [facility] Blood manual differential co mment interpretation (narrative result)Ordered By: Vin Gatica on 06-04-2023 Manual differential comment Angel (Bld) [Interp] COMMENT [facility] Blood monocytes/100 leukocyt esOrdered By: Vin Gatica on 06-04-2023 Monocytes/100 WBC (Bld) 21.6 % 0-10 [facility] Blood platelet mean volumeOr dered By: Vin Gatica on 06-04-2023 Platelet mean volume (Bld) [Entitic vol] 9.5 fL 6.2-12.0 [facility] Determination of erythrocyte mean corpuscular volume (MCV)Ordered By: Vin Gatica on 06-04-2023 MCV (RBC) [Entitic vol] 87.6 fL 81-99 [facility] Hematocrit Auto (Bld) [Volum e fraction]Ordered By: Vin Gatica on 06-04-2023 Hematocrit (Bld) [Volume fraction] 29.6 % 37-47 [facility] MCHC Auto (RBC) [Mass/Vol]Or dered By: iVn Gatica on 06-04-2023 MCHC (RBC) [Mass/Vol] 31.8 g/dL 32-36 [facility] No Panel InformationOrdered By: Vin Gatica on 06-04-2023 27.8 pg 27.0-32.0 [facility] 12.5 % 11.6-14.6 [facility] 39.8 fl 35.1-43.9 [facility] 0.000 % 0.0-0.9 [facility] 0 % 0-5 [facility] 43 mL/min >60 [facility] 52 mL/min >60 [facility] 12.1 RATIO 10-20 [facility] 2.1 g/dL 2.2-4.2 [facility] 42 U/L 45-117 [facility] 23 U/L 13-56 [facility] 25.0 mmol/L 21.0-32.0 [facility] Platelets bldOrdered By: Anton Gatica on 06-04-2023 Platelets (Bld) [#/Vol] 164 10*3/uL 150-450 [facility] Serum or plasma albumin shannan urement (mass/volume)Ordered By: Vin Gatica on 06-04-2023 Albumin [Mass/Vol] 3.2 g/dL 3.2-5.0 [facility] Serum or plasma albumin/glob ulin mass ratioOrdered By: Vin Gatica on 06-04-2023 Albumin/Globulin [Mass ratio] 1.5 {ratio} 0.9-2.4 [facility] Serum or plasma calcium shannan urement (mass/volume)Ordered By: Vin Gatica on 06-04-2023 Calcium [Mass/Vol] 8.5 mg/dL 8.5-10.1 [facility] Serum or plasma creatinine m easurement (mass/volume)Ordered By: Vin Gatica on 06-04-2023 Creatinine [Mass/Vol] 1.32 mg/dL 0.55-1.02 [facility] Serum or plasma urea nitroge n measurement (mass/volume)Ordered By: Vin Gatica on 06-04-2023 Urea nitrogen [Mass/Vol] 16 mg/dL 7-18 [facility] Thin prep Papanicolaou smear with manual screeningOrdered By: Vin Gatica on 06-04-2023 Thin prep Papanicolaou smear with manual screening 22 U/L 15-37 [facility] Thin prep Papanicolaou smear with manual screening 5 5-15 [facility] Erythrocyte sedimentation ra teOrdered By: Vin Gatica on 05-31-2023 ESR (Bld) [Velocity] 3 mm/h 0-30 [facility] Serum or plasma C reactive p rotein measurement (mass/volume)Ordered By: Vin Gatica on 05-31-2023 CRP [Mass/Vol] mg/L 0.0-3.0 [facility] Bacteria identified Cx Nom ( U)Ordered By: Vin Gatica on 05-30-2023 Culture, urine Positive [facility] Bilirubin Test strip Ql (U)O rdered By: Vin Gatica on 05-30-2023 Bilirubin Ql (U) Negative Negative [facility] Ketones Test strip Ql (U)Ord ered By: Vin Gatica on 05-30-2023 Ketones Ql (U) Negative Negative [facility] Nitrite Test strip Ql (U)Ord ered By: Vin Gatica on 05-30-2023 Nitrite Ql (U) Negative Negative [facility] Protein Test strip Ql (U)Ord ered By: Vin Gatica on 05-30-2023 Protein Ql (U) Negative Negative [facility] Urine blood detectionOrdered By: Vin Gatica on 05-30-2023 RBC Ql (U) Negative Negative [facility] Urine clarityOrdered By: Anton Gatica on 05-30-2023 Clarity (U) Clear Clear [facility] Urine color determinationOrd ered By: Vin Gatica on 05-30-2023 Color (U) Straw Yellow [facility] Urine glucose detectionOrder ed By: Vin Gatica on 05-30-2023 Glucose Ql (U) Normal mg/dl Normal [facility] Urine leukocyte esterase det ection by dipstickOrdered By: Vin Gatica on 05-30-2023 Leukocyte esterase Test strip Ql (U) Negative Negative [facility] Urine pHOrdered By: Ana Luisa Gatica on 05-30-2023 pH (U) 6.0 [pH] 5.0 - 8.0 [facility] Urine specific gravity measu rementOrdered By: Vin Gatica on 05-30-2023 Specific gravity (U) [Rel density] 1.020 1.002-1.03 0 [facility] Urobilinogen Auto test strip Ql (U)Ordered By: Vin Gatica on 05-30-2023 Urobilinogen Ql (U) Normal mg/dl Normal [facility] Absolute lymphocyte countOrd ered By: Vin Gatica on 05-28-2023 Lymphocytes Auto (Unsp spec) [#/Vol] 1.21 10*3/uL 0.83-4.51 [facility] Basophil percentageOrdered B y: Vin Gatica on 05-28-2023 Basophil percentage 93 mg/dL 74-106 [facility] Basophil percentage 5.7 g/dL 6.4-8.2 [facility] Basophil percentage 1.50 mg/dL 0.20-1.00 [facility] Basophil percentage 143 mmol/L 136-145 [facility] Basophil percentage 3.9 mmol/L 3.5-5.1 [facility] Basophil percentage 111 mmol/L 98-107 [facility] Basophils (Bld) [#/Vol] 2.8 10*3/uL 4.4-11.0 [facility] Basophils (Bld) [#/Vol] 0.8 10*3/uL 2.0-7.7 [facility] Basophils/100 WBC (Bld) 27.9 % 47-70 [facility] Basophils/100 WBC (Bld) 7.9 % 0-5 [facility] Basophils/100 WBC (Bld) 1.4 % 0-1 [facility] Blood erythrocytes count (nu mber/volume)Ordered By: Vin Gatica on 05-28-2023 RBC (Bld) [#/Vol] 3.55 10*6/uL 4.2-5.4 [facility] Blood hemoglobin measurement (mass/volume)Ordered By: Vin Gatica on 05-28-2023 Hemoglobin (Bld) [Mass/Vol] 10.1 g/dL 12.0-15.0 [facility] Blood lymphocytes/100 leukoc ytesOrdered By: Vin Gatica on 05-28-2023 Lymphocytes/100 WBC (Bld) 43.2 % 19-41 [facility] Blood manual differential co mment interpretation (narrative result)Ordered By: Vin Gatica on 05-28-2023 Manual differential comment Angel (Bld) [Interp] COMMENT [facility] Blood monocytes/100 leukocyt esOrdered By: Vin Gatica on 05-28-2023 Monocytes/100 WBC (Bld) 19.6 % 0-10 [facility] Blood platelet mean volumeOr dered By: Vin Gatica on 05-28-2023 Platelet mean volume (Bld) [Entitic vol] 9.4 fL 6.2-12.0 [facility] Determination of erythrocyte mean corpuscular volume (MCV)Ordered By: Vin Gatica on 05-28-2023 MCV (RBC) [Entitic vol] 89.6 fL 81-99 [facility] Hematocrit Auto (Bld) [Volum e fraction]Ordered By: Vin Gatica on 05-28-2023 Hematocrit (Bld) [Volume fraction] 31.8 % 37-47 [facility] MCHC Auto (RBC) [Mass/Vol]Or dered By: Vin Gatica on 05-28-2023 MCHC (RBC) [Mass/Vol] 31.8 g/dL 32-36 [facility] No Panel InformationOrdered By: Vin Gatica on 05-28-2023 28.5 pg 27.0-32.0 [facility] 12.5 % 11.6-14.6 [facility] 41.0 fl 35.1-43.9 [facility] 0.000 % 0.0-0.9 [facility] 0 % 0-5 [facility] 48 mL/min >60 [facility] 59 mL/min >60 [facility] 11.9 RATIO 10-20 [facility] 2.3 g/dL 2.2-4.2 [facility] 43 U/L 45-117 [facility] 31 U/L 13-56 [facility] 24.0 mmol/L 21.0-32.0 [facility] Platelets bldOrdered By: Anton Gatica on 05-28-2023 Platelets (Bld) [#/Vol] 213 10*3/uL 150-450 [facility] Serum or plasma albumin shannan urement (mass/volume)Ordered By: Vin Gatica on 05-28-2023 Albumin [Mass/Vol] 3.4 g/dL 3.2-5.0 [facility] Serum or plasma albumin/glob ulin mass ratioOrdered By: Vin Gatica on 05-28-2023 Albumin/Globulin [Mass ratio] 1.5 {ratio} 0.9-2.4 [facility] Serum or plasma calcium shannan urement (mass/volume)Ordered By: Vin Gatica on 05-28-2023 Calcium [Mass/Vol] 8.8 mg/dL 8.5-10.1 [facility] Serum or plasma creatinine m easurement (mass/volume)Ordered By: Vin Gatica on 05-28-2023 Creatinine [Mass/Vol] 1.18 mg/dL 0.55-1.02 [facility] Serum or plasma urea nitroge n measurement (mass/volume)Ordered By: Vin Gatica on 05-28-2023 Urea nitrogen [Mass/Vol] 14 mg/dL 7-18 [facility] Thin prep Papanicolaou smear with manual screeningOrdered By: Vin Gatica on 05-28-2023 Thin prep Papanicolaou smear with manual screening 23 U/L 15-37 [facility] Thin prep Papanicolaou smear with manual screening 8 5-15 [facility] Bacteria identified Cx Nom ( U)Ordered By: Vin Gatica on 05-20-2023 Culture, urine Citrobacter freundii [facility] Bilirubin Test strip Ql (U)O rdered By: Vin Gatica on 05-20-2023 Bilirubin Ql (U) Negative Negative [facility] Ketones Test strip Ql (U)Ord ered By: Vin Gatica on 05-20-2023 Ketones Ql (U) Negative Negative [facility] Nitrite Test strip Ql (U)Ord ered By: Vin Gatica on 05-20-2023 Nitrite Ql (U) Negative Negative [facility] Protein Test strip Ql (U)Ord ered By: Vin Gatica on 05-20-2023 Protein Ql (U) Negative Negative [facility] Urine blood detectionOrdered By: Vin Gatica on 05-20-2023 RBC Ql (U) Negative Negative [facility] Urine clarityOrdered By: Anton Gatica on 05-20-2023 Clarity (U) Clear Clear [facility] Urine color determinationOrd ered By: Vin Gatica on 05-20-2023 Color (U) Straw Yellow [facility] Urine glucose detectionOrder ed By: Vin Gatica on 05-20-2023 Glucose Ql (U) Normal mg/dl Normal [facility] Urine leukocyte esterase det ection by dipstickOrdered By: Vin Gatica on 05-20-2023 Leukocyte esterase Test strip Ql (U) 25 /ul Negative [facility] Urine pHOrdered By: Ana Luisa Gatica on 05-20-2023 pH (U) 7.0 [pH] 5.0 - 8.0 [facility] Urine specific gravity measu rementOrdered By: Vin Gatica on 05-20-2023 Specific gravity (U) [Rel density] 1.005 1.002-1.03 0 [facility] Urobilinogen Auto test strip Ql (U)Ordered By: Vin Gatica on 05-20-2023 Urobilinogen Ql (U) Normal mg/dl Normal [facility] Absolute lymphocyte countOrd ered By: Vin Gatica on 05-14-2023 Lymphocytes Auto (Unsp spec) [#/Vol] 1.55 10*3/uL 0.83-4.51 [facility] Basophil percentageOrdered B y: Vin Gatica on 05-14-2023 Basophil percentage 84 mg/dL 74-106 [facility] Basophil percentage 5.8 g/dL 6.4-8.2 [facility] Basophil percentage 0.90 mg/dL 0.20-1.00 [facility] Basophil percentage 143 mmol/L 136-145 [facility] Basophil percentage 3.5 mmol/L 3.5-5.1 [facility] Basophil percentage 111 mmol/L 98-107 [facility] Basophils (Bld) [#/Vol] 3.3 10*3/uL 4.4-11.0 [facility] Basophils (Bld) [#/Vol] 0.9 10*3/uL 2.0-7.7 [facility] Basophils/100 WBC (Bld) 27.0 % 47-70 [facility] Basophils/100 WBC (Bld) 4.2 % 0-5 [facility] Basophils/100 WBC (Bld) 1.2 % 0-1 [facility] Blood erythrocytes count (nu mber/volume)Ordered By: Vin Gatica on 05-14-2023 RBC (Bld) [#/Vol] 3.34 10*6/uL 4.2-5.4 [facility] Blood hemoglobin measurement (mass/volume)Ordered By: Vin Gatica on 05-14-2023 Hemoglobin (Bld) [Mass/Vol] 9.7 g/dL 12.0-15.0 [facility] Blood lymphocytes/100 leukoc ytesOrdered By: Vin Gatica on 05-14-2023 Lymphocytes/100 WBC (Bld) 46.8 % 19-41 [facility] Blood manual differential co mment interpretation (narrative result)Ordered By: Vin Gatica on 05-14-2023 Manual differential comment Angel (Bld) [Interp] SCANNED [facility] Blood monocytes/100 leukocyt esOrdered By: Vin Gatica on 05-14-2023 Monocytes/100 WBC (Bld) 20.2 % 0-10 [facility] Blood platelet mean volumeOr dered By: Vin Gatica on 05-14-2023 Platelet mean volume (Bld) [Entitic vol] 9.2 fL 6.2-12.0 [facility] Determination of erythrocyte mean corpuscular volume (MCV)Ordered By: Vin Gatica on 05-14-2023 MCV (RBC) [Entitic vol] 90.7 fL 81-99 [facility] Hematocrit Auto (Bld) [Volum e fraction]Ordered By: Vin Gatica on 05-14-2023 Hematocrit (Bld) [Volume fraction] 30.3 % 37-47 [facility] MCHC Auto (RBC) [Mass/Vol]Or dered By: Vin Gatica on 05-14-2023 MCHC (RBC) [Mass/Vol] 32.0 g/dL 32-36 [facility] No Panel InformationOrdered By: Vin Gatica on 05-14-2023 29.0 pg 27.0-32.0 [facility] 13.1 % 11.6-14.6 [facility] 42.8 fl 35.1-43.9 [facility] 0.600 % 0.0-0.9 [facility] 0 % 0-5 [facility] 58 mL/min >60 [facility] 70 mL/min >60 [facility] 18.8 RATIO 10-20 [facility] 2.3 g/dL 2.2-4.2 [facility] 40 U/L 45-117 [facility] 27 U/L 13-56 [facility] 25.0 mmol/L 21.0-32.0 [facility] Platelets bldOrdered By: Anton Gatica on 05-14-2023 Platelets (Bld) [#/Vol] 221 10*3/uL 150-450 [facility] Serum or plasma albumin shannan urement (mass/volume)Ordered By: Vin Gatica on 05-14-2023 Albumin [Mass/Vol] 3.5 g/dL 3.2-5.0 [facility] Serum or plasma albumin/glob ulin mass ratioOrdered By: Vin Gatica on 05-14-2023 Albumin/Globulin [Mass ratio] 1.5 {ratio} 0.9-2.4 [facility] Serum or plasma calcium shannan urement (mass/volume)Ordered By: Vin Gatica on 05-14-2023 Calcium [Mass/Vol] 8.7 mg/dL 8.5-10.1 [facility] Serum or plasma creatinine m easurement (mass/volume)Ordered By: Vin Gatica on 05-14-2023 Creatinine [Mass/Vol] 1.01 mg/dL 0.55-1.02 [facility] Serum or plasma urea nitroge n measurement (mass/volume)Ordered By: Vin Gatica on 05-14-2023 Urea nitrogen [Mass/Vol] 19 mg/dL 7-18 [facility] Thin prep Papanicolaou smear with manual screeningOrdered By: Vin Gatica on 05-14-2023 Thin prep Papanicolaou smear with manual screening 23 U/L 15-37 [facility] Thin prep Papanicolaou smear with manual screening 7 5-15 [facility] Absolute lymphocyte countOrd ered By: Vin Gatica on 05-07-2023 Lymphocytes Auto (Unsp spec) [#/Vol] 1.45 10*3/uL 0.83-4.51 [facility] Basophil percentageOrdered B y: Vin Gatica on 05-07-2023 Basophil percentage 76 mg/dL 74-106 [facility] Basophil percentage 5.5 g/dL 6.4-8.2 [facility] Basophil percentage 0.70 mg/dL 0.20-1.00 [facility] Basophil percentage 144 mmol/L 136-145 [facility] Basophil percentage 3.8 mmol/L 3.5-5.1 [facility] Basophil percentage 113 mmol/L 98-107 [facility] Basophils (Bld) [#/Vol] 3.3 10*3/uL 4.4-11.0 [facility] Basophils (Bld) [#/Vol] 1.1 10*3/uL 2.0-7.7 [facility] Basophils/100 WBC (Bld) 33.4 % 47-70 [facility] Basophils/100 WBC (Bld) 3.9 % 0-5 [facility] Basophils/100 WBC (Bld) 0.9 % 0-1 [facility] Blood erythrocytes count (nu mber/volume)Ordered By: Vin Alexandrdiandraluz on 05-07-2023 RBC (Bld) [#/Vol] 3.13 10*6/uL 4.2-5.4 [facility] Blood hemoglobin measurement (mass/volume)Ordered By: Vin Gatica on 05-07-2023 Hemoglobin (Bld) [Mass/Vol] 9.0 g/dL 12.0-15.0 [facility] Blood lymphocytes/100 leukoc ytesOrdered By: Vin Gatica on 05-07-2023 Lymphocytes/100 WBC (Bld) 43.5 % 19-41 [facility] Blood monocytes/100 leukocyt esOrdered By: Vin Gatica on 05-07-2023 Monocytes/100 WBC (Bld) 18.0 % 0-10 [facility] Blood platelet mean volumeOr dered By: Vin Gatica on 05-07-2023 Platelet mean volume (Bld) [Entitic vol] 9.3 fL 6.2-12.0 [facility] Determination of erythrocyte mean corpuscular volume (MCV)Ordered By: Vin Gatica on 05-07-2023 MCV (RBC) [Entitic vol] 91.7 fL 81-99 [facility] Hematocrit Auto (Bld) [Volum e fraction]Ordered By: Nicoleorovilledeepti Gatica on 05-07-2023 Hematocrit (Bld) [Volume fraction] 28.7 % 37-47 [facility] MCHC Auto (RBC) [Mass/Vol]Or dered By: teresa Gatica on 05-07-2023 MCHC (RBC) [Mass/Vol] 31.4 g/dL 32-36 [facility] No Panel InformationOrdered By: teresa Gatica on 05-07-2023 28.8 pg 27.0-32.0 [facility] 13.6 % 11.6-14.6 [facility] 45.5 fl 35.1-43.9 [facility] 0.300 % 0.0-0.9 [facility] 0 % 0-5 [facility] 65 mL/min >60 [facility] 79 mL/min >60 [facility] 17.5 RATIO 10-20 [facility] 2.3 g/dL 2.2-4.2 [facility] 40 U/L 45-117 [facility] 21 U/L 13-56 [facility] 26.0 mmol/L 21.0-32.0 [facility] Platelets bldOrdered By: Anton Gatica on 05-07-2023 Platelets (Bld) [#/Vol] 192 10*3/uL 150-450 [facility] Serum or plasma albumin shannan urement (mass/volume)Ordered By: Vin Gatica on 05-07-2023 Albumin [Mass/Vol] 3.2 g/dL 3.2-5.0 [facility] Serum or plasma albumin/glob ulin mass ratioOrdered By: Vin Gatica on 05-07-2023 Albumin/Globulin [Mass ratio] 1.4 {ratio} 0.9-2.4 [facility] Serum or plasma calcium shannan urement (mass/volume)Ordered By: Vin Gatica on 05-07-2023 Calcium [Mass/Vol] 8.5 mg/dL 8.5-10.1 [facility] Serum or plasma creatinine m easurement (mass/volume)Ordered By: Vin Gatica on 05-07-2023 Creatinine [Mass/Vol] 0.91 mg/dL 0.55-1.02 [facility] Serum or plasma urea nitroge n measurement (mass/volume)Ordered By: Vin Gatica on 05-07-2023 Urea nitrogen [Mass/Vol] 16 mg/dL 7-18 [facility] Thin prep Papanicolaou smear with manual screeningOrdered By: Vin Gatica on 05-07-2023 Thin prep Papanicolaou smear with manual screening 16 U/L 15-37 [facility] Thin prep Papanicolaou smear with manual screening 5 5-15 [facility] Erythrocyte sedimentation ra teOrdered By: Vin Gatica on 05-03-2023 ESR (Bld) [Velocity] 7 mm/h 0-30 [facility] Serum or plasma C reactive p rotein measurement (mass/volume)Ordered By: Vin Gatica on 05-03-2023 CRP [Mass/Vol] 3.96 mg/L 0.0-3.0 [facility] Absolute lymphocyte countOrd ered By: Vin Gatica on 04-30-2023 Lymphocytes Auto (Unsp spec) [#/Vol] 1.25 10*3/uL 0.83-4.51 [facility] Basophil percentageOrdered B y: Vin Gatica on 04-30-2023 Basophil percentage 90 mg/dL 74-106 [facility] Basophil percentage 5.3 g/dL 6.4-8.2 [facility] Basophil percentage 0.90 mg/dL 0.20-1.00 [facility] Basophil percentage 142 mmol/L 136-145 [facility] Basophil percentage 3.6 mmol/L 3.5-5.1 [facility] Basophil percentage 112 mmol/L 98-107 [facility] Basophils (Bld) [#/Vol] 4.6 10*3/uL 4.4-11.0 [facility] Basophils (Bld) [#/Vol] 2.4 10*3/uL 2.0-7.7 [facility] Basophils/100 WBC (Bld) 53.2 % 47-70 [facility] Basophils/100 WBC (Bld) 3.5 % 0-5 [facility] Basophils/100 WBC (Bld) 0.4 % 0-1 [facility] Blood erythrocytes count (nu mber/volume)Ordered By: Vin Gatica on 04-30-2023 RBC (Bld) [#/Vol] 3.26 10*6/uL 4.2-5.4 [facility] Blood hemoglobin measurement (mass/volume)Ordered By: Vin Gatica on 04-30-2023 Hemoglobin (Bld) [Mass/Vol] 9.5 g/dL 12.0-15.0 [facility] Blood lymphocytes/100 leukoc ytesOrdered By: Vin Gatica on 04-30-2023 Lymphocytes/100 WBC (Bld) 27.2 % 19-41 [facility] Blood monocytes/100 leukocyt esOrdered By: Vin Gatica on 04-30-2023 Monocytes/100 WBC (Bld) 15.3 % 0-10 [facility] Blood platelet mean volumeOr dered By: Vin Gatica on 04-30-2023 Platelet mean volume (Bld) [Entitic vol] 9.1 fL 6.2-12.0 [facility] Determination of erythrocyte mean corpuscular volume (MCV)Ordered By: Vin Gatica on 04-30-2023 MCV (RBC) [Entitic vol] 91.7 fL 81-99 [facility] Hematocrit Auto (Bld) [Volum e fraction]Ordered By: Vin Gatica on 04-30-2023 Hematocrit (Bld) [Volume fraction] 29.9 % 37-47 [facility] MCHC Auto (RBC) [Mass/Vol]Or dered By: Vin Gatiac on 04-30-2023 MCHC (RBC) [Mass/Vol] 31.8 g/dL 32-36 [facility] No Panel InformationOrdered By: Vin Gatica on 04-30-2023 29.1 pg 27.0-32.0 [facility] 13.7 % 11.6-14.6 [facility] 46.4 fl 35.1-43.9 [facility] 0.400 % 0.0-0.9 [facility] 0 % 0-5 [facility] 60 mL/min >60 [facility] 73 mL/min >60 [facility] 16.4 RATIO 10-20 [facility] 2.1 g/dL 2.2-4.2 [facility] 39 U/L 45-117 [facility] 22 U/L 13-56 [facility] 25.0 mmol/L 21.0-32.0 [facility] Platelets bldOrdered By: Anton Gatica on 04-30-2023 Platelets (Bld) [#/Vol] 196 10*3/uL 150-450 [facility] Serum or plasma albumin shannan urement (mass/volume)Ordered By: Vin Gatica on 04-30-2023 Albumin [Mass/Vol] 3.2 g/dL 3.2-5.0 [facility] Serum or plasma albumin/glob ulin mass ratioOrdered By: Vin Gatica on 04-30-2023 Albumin/Globulin [Mass ratio] 1.5 {ratio} 0.9-2.4 [facility] Serum or plasma calcium shannan urement (mass/volume)Ordered By: Vin Gatica on 04-30-2023 Calcium [Mass/Vol] 8.5 mg/dL 8.5-10.1 [facility] Serum or plasma creatinine m easurement (mass/volume)Ordered By: Vin Gatica on 04-30-2023 Creatinine [Mass/Vol] 0.98 mg/dL 0.55-1.02 [facility] Serum or plasma urea nitroge n measurement (mass/volume)Ordered By: Vin Gatica on 04-30-2023 Urea nitrogen [Mass/Vol] 16 mg/dL 7-18 [facility] Thin prep Papanicolaou smear with manual screeningOrdered By: addytrentdeepti Gatica on 04-30-2023 Thin prep Papanicolaou smear with manual screening 20 U/L 15-37 [facility] Thin prep Papanicolaou smear with manual screening 5 5-15 [facility] Absolute lymphocyte countOrd ered By: Nicoletrentdeepti Gatica on 04-23-2023 Lymphocytes Auto (Unsp spec) [#/Vol] 2.57 10*3/uL 0.83-4.51 [facility] Basophil percentageOrdered B y: Meldeepti Gatica on 04-23-2023 Basophil percentage 86 mg/dL 74-106 [facility] Basophil percentage 6.2 g/dL 6.4-8.2 [facility] Basophil percentage 0.70 mg/dL 0.20-1.00 [facility] Basophil percentage 144 mmol/L 136-145 [facility] Basophil percentage 3.9 mmol/L 3.5-5.1 [facility] Basophil percentage 112 mmol/L 98-107 [facility] Basophils (Bld) [#/Vol] 5.2 10*3/uL 4.4-11.0 [facility] Basophils (Bld) [#/Vol] 1.8 10*3/uL 2.0-7.7 [facility] Basophils/100 WBC (Bld) 33.6 % 47-70 [facility] Basophils/100 WBC (Bld) 3.1 % 0-5 [facility] Basophils/100 WBC (Bld) 0.6 % 0-1 [facility] Blood erythrocytes count (nu mber/volume)Ordered By: Vin Gatica on 04-23-2023 RBC (Bld) [#/Vol] 3.57 10*6/uL 4.2-5.4 [facility] Blood hemoglobin measurement (mass/volume)Ordered By: Vin Gatica on 04-23-2023 Hemoglobin (Bld) [Mass/Vol] 10.3 g/dL 12.0-15.0 [facility] Blood lymphocytes/100 leukoc ytesOrdered By: addyorovilledeepti Gatica on 04-23-2023 Lymphocytes/100 WBC (Bld) 49.4 % 19-41 [facility] Blood monocytes/100 leukocyt esOrdered By: Vin Gatica on 04-23-2023 Monocytes/100 WBC (Bld) 12.7 % 0-10 [facility] Blood platelet mean volumeOr dered By: Vin Gatica on 04-23-2023 Platelet mean volume (Bld) [Entitic vol] 9.1 fL 6.2-12.0 [facility] Determination of erythrocyte mean corpuscular volume (MCV)Ordered By: Vin Gatica on 04-23-2023 MCV (RBC) [Entitic vol] 92.2 fL 81-99 [facility] Hematocrit Auto (Bld) [Volum e fraction]Ordered By: Vin Gatica on 04-23-2023 Hematocrit (Bld) [Volume fraction] 32.9 % 37-47 [facility] MCHC Auto (RBC) [Mass/Vol]Or dered By: Vin Gatica on 04-23-2023 MCHC (RBC) [Mass/Vol] 31.3 g/dL 32-36 [facility] No Panel InformationOrdered By: Vin Gatica on 04-23-2023 28.9 pg 27.0-32.0 [facility] 14.5 % 11.6-14.6 [facility] 48.9 fl 35.1-43.9 [facility] 0.600 % 0.0-0.9 [facility] 0 % 0-5 [facility] 57 mL/min >60 [facility] 69 mL/min >60 [facility] 18.6 RATIO 10-20 [facility] 2.5 g/dL 2.2-4.2 [facility] 42 U/L 45-117 [facility] 27 U/L 13-56 [facility] 26.0 mmol/L 21.0-32.0 [facility] Platelets bldOrdered By: Anton Gatica on 04-23-2023 Platelets (Bld) [#/Vol] 265 10*3/uL 150-450 [facility] Serum or plasma albumin shannan urement (mass/volume)Ordered By: Vin Gatica on 04-23-2023 Albumin [Mass/Vol] 3.7 g/dL 3.2-5.0 [facility] Serum or plasma albumin/glob ulin mass ratioOrdered By: Vin Gatica on 04-23-2023 Albumin/Globulin [Mass ratio] 1.5 {ratio} 0.9-2.4 [facility] Serum or plasma calcium shannan urement (mass/volume)Ordered By: Vin Gatica on 04-23-2023 Calcium [Mass/Vol] 9.0 mg/dL 8.5-10.1 [facility] Serum or plasma creatinine m easurement (mass/volume)Ordered By: Vin Gatica on 04-23-2023 Creatinine [Mass/Vol] 1.02 mg/dL 0.55-1.02 [facility] Serum or plasma urea nitroge n measurement (mass/volume)Ordered By: Vin Gatica on 04-23-2023 Urea nitrogen [Mass/Vol] 19 mg/dL 7-18 [facility] Thin prep Papanicolaou smear with manual screeningOrdered By: Vin Gatica on 04-23-2023 Thin prep Papanicolaou smear with manual screening 19 U/L 15-37 [facility] Thin prep Papanicolaou smear with manual screening 6 5-15 [facility] Erythrocyte sedimentation ra teOrdered By: Vin Gatica on 04-22-2023 ESR (Bld) [Velocity] 1 mm/h 0-30 [facility] Serum or plasma C reactive p rotein measurement (mass/volume)Ordered By: Vin Gatica on 04-22-2023 CRP [Mass/Vol] mg/L 0.0-3.0 [facility] Absolute lymphocyte countOrd ered By: Vin Gatica on 04-16-2023 Lymphocytes Auto (Unsp spec) [#/Vol] 1.65 10*3/uL 0.83-4.51 [facility] Basophil percentageOrdered B y: Vin Gatica on 04-16-2023 Basophil percentage 85 mg/dL 74-106 [facility] Basophil percentage 5.9 g/dL 6.4-8.2 [facility] Basophil percentage 0.70 mg/dL 0.20-1.00 [facility] Basophil percentage 141 mmol/L 136-145 [facility] Basophil percentage 3.3 mmol/L 3.5-5.1 [facility] Basophil percentage 110 mmol/L 98-107 [facility] Basophils (Bld) [#/Vol] 6.0 10*3/uL 4.4-11.0 [facility] Basophils (Bld) [#/Vol] 3.4 10*3/uL 2.0-7.7 [facility] Basophils/100 WBC (Bld) 56.2 % 47-70 [facility] Basophils/100 WBC (Bld) 1.3 % 0-5 [facility] Basophils/100 WBC (Bld) 0.3 % 0-1 [facility] Blood erythrocytes count (nu mber/volume)Ordered By: Vin Gatica on 04-16-2023 RBC (Bld) [#/Vol] 3.41 10*6/uL 4.2-5.4 [facility] Blood hemoglobin measurement (mass/volume)Ordered By: Vin Gatica on 04-16-2023 Hemoglobin (Bld) [Mass/Vol] 9.9 g/dL 12.0-15.0 [facility] Blood lymphocytes/100 leukoc ytesOrdered By: Vin Gatica on 04-16-2023 Lymphocytes/100 WBC (Bld) 27.6 % 19-41 [facility] Blood monocytes/100 leukocyt esOrdered By: Vin Gatica on 04-16-2023 Monocytes/100 WBC (Bld) 13.6 % 0-10 [facility] Blood platelet mean volumeOr dered By: Vin Gatica on 04-16-2023 Platelet mean volume (Bld) [Entitic vol] 9.3 fL 6.2-12.0 [facility] Determination of erythrocyte mean corpuscular volume (MCV)Ordered By: Vin Gatica on 04-16-2023 MCV (RBC) [Entitic vol] 92.7 fL 81-99 [facility] Hematocrit Auto (Bld) [Volum e fraction]Ordered By: Vin Gatica on 04-16-2023 Hematocrit (Bld) [Volume fraction] 31.6 % 37-47 [facility] MCHC Auto (RBC) [Mass/Vol]Or dered By: Vin Gatica on 04-16-2023 MCHC (RBC) [Mass/Vol] 31.3 g/dL 32-36 [facility] No Panel InformationOrdered By: Vin Gatica on 04-16-2023 29.0 pg 27.0-32.0 [facility] 15.0 % 11.6-14.6 [facility] 50.3 fl 35.1-43.9 [facility] 1.000 % 0.0-0.9 [facility] 0 % 0-5 [facility] 63 mL/min >60 [facility] 77 mL/min >60 [facility] 32.0 RATIO 10-20 [facility] 2.5 g/dL 2.2-4.2 [facility] 46 U/L 45-117 [facility] 20 U/L 13-56 [facility] 24.0 mmol/L 21.0-32.0 [facility] Platelets bldOrdered By: Anton Gatica on 04-16-2023 Platelets (Bld) [#/Vol] 227 10*3/uL 150-450 [facility] Serum or plasma albumin shannan urement (mass/volume)Ordered By: Vin Gatica on 04-16-2023 Albumin [Mass/Vol] 3.4 g/dL 3.2-5.0 [facility] Serum or plasma albumin/glob ulin mass ratioOrdered By: Vin Gatica on 04-16-2023 Albumin/Globulin [Mass ratio] 1.4 {ratio} 0.9-2.4 [facility] Serum or plasma calcium shannan urement (mass/volume)Ordered By: Vin Strangediandraluz on 04-16-2023 Calcium [Mass/Vol] 8.6 mg/dL 8.5-10.1 [facility] Serum or plasma creatinine m easurement (mass/volume)Ordered By: Nicoletrentdeepti Strangediandraluz on 04-16-2023 Creatinine [Mass/Vol] 0.94 mg/dL 0.55-1.02 [facility] Serum or plasma urea nitroge n measurement (mass/volume)Ordered By: Lizbetaddyamelia Alexandrdiandraluz on 04-16-2023 Urea nitrogen [Mass/Vol] 30 mg/dL 7-18 [facility] Thin prep Papanicolaou smear with manual screeningOrdered By: Lizbetaddyamelia Alexandrmolly on 04-16-2023 Thin prep Papanicolaou smear with manual screening 14 U/L 15-37 [facility] Thin prep Papanicolaou smear with manual screening 7 5-15 [facility] Absolute lymphocyte countOrd ered By: Vin Gatica on 04-09-2023 Lymphocytes Auto (Unsp spec) [#/Vol] 2.37 10*3/uL 0.83-4.51 [facility] Basophil percentageOrdered B y: Vin Gatica on 04-09-2023 Basophil percentage 80 mg/dL 74-106 [facility] Basophil percentage 6.6 g/dL 6.4-8.2 [facility] Basophil percentage 1.30 mg/dL 0.20-1.00 [facility] Basophil percentage 138 mmol/L 136-145 [facility] Basophil percentage 3.7 mmol/L 3.5-5.1 [facility] Basophil percentage 106 mmol/L 98-107 [facility] Basophils (Bld) [#/Vol] 9.0 10*3/uL 4.4-11.0 [facility] Basophils (Bld) [#/Vol] 5.4 10*3/uL 2.0-7.7 [facility] Basophils/100 WBC (Bld) 60.3 % 47-70 [facility] Basophils/100 WBC (Bld) 0.9 % 0-5 [facility] Basophils/100 WBC (Bld) 0.4 % 0-1 [facility] Blood erythrocytes count (nu mber/volume)Ordered By: Vin Gatica on 04-09-2023 RBC (Bld) [#/Vol] 3.96 10*6/uL 4.2-5.4 [facility] Blood hemoglobin measurement (mass/volume)Ordered By: Vin Gatica on 04-09-2023 Hemoglobin (Bld) [Mass/Vol] 11.4 g/dL 12.0-15.0 [facility] Blood lymphocytes/100 leukoc ytesOrdered By: Vin Gatica on 04-09-2023 Lymphocytes/100 WBC (Bld) 26.5 % 19-41 [facility] Blood monocytes/100 leukocyt esOrdered By: Vin Gatica on 04-09-2023 Monocytes/100 WBC (Bld) 10.8 % 0-10 [facility] Blood platelet mean volumeOr dered By: Vin Gatica on 04-09-2023 Platelet mean volume (Bld) [Entitic vol] 9.1 fL 6.2-12.0 [facility] Determination of erythrocyte mean corpuscular volume (MCV)Ordered By: Vin Gatica on 04-09-2023 MCV (RBC) [Entitic vol] 91.9 fL 81-99 [facility] Hematocrit Auto (Bld) [Volum e fraction]Ordered By: Vin Gatica on 04-09-2023 Hematocrit (Bld) [Volume fraction] 36.4 % 37-47 [facility] MCHC Auto (RBC) [Mass/Vol]Or dered By: Vin Gatica on 04-09-2023 MCHC (RBC) [Mass/Vol] 31.3 g/dL 32-36 [facility] No Panel InformationOrdered By: Vin Gatica on 04-09-2023 28.8 pg 27.0-32.0 [facility] 15.4 % 11.6-14.6 [facility] 52.0 fl 35.1-43.9 [facility] 1.100 % 0.0-0.9 [facility] 0.2 % 0-5 [facility] 55 mL/min >60 [facility] 66 mL/min >60 [facility] 17.0 RATIO 10-20 [facility] 2.6 g/dL 2.2-4.2 [facility] 41 U/L 45-117 [facility] 28 U/L 13-56 [facility] 25.0 mmol/L 21.0-32.0 [facility] Platelets bldOrdered By: Anton Gatica on 04-09-2023 Platelets (Bld) [#/Vol] 240 10*3/uL 150-450 [facility] [facility] or plasma albumin shannan urement (mass/volume)Ordered By: Vin Gatica on 04-09-2023 Albumin [Mass/Vol] 4.0 g/dL 3.2-5.0 [facility] Serum or plasma albumin/glob ulin mass ratioOrdered By: Vin Gatica on 04-09-2023 Albumin/Globulin [Mass ratio] 1.5 {ratio} 0.9-2.4 [facility] Serum or plasma calcium shannan urement (mass/volume)Ordered By: Vin Gatica on 04-09-2023 Calcium [Mass/Vol] 9.3 mg/dL 8.5-10.1 [facility] Serum or plasma creatinine m easurement (mass/volume)Ordered By: Vin aGtica on 04-09-2023 Creatinine [Mass/Vol] 1.06 mg/dL 0.55-1.02 [facility] Serum or plasma urea nitroge n measurement (mass/volume)Ordered By: Vin Gatica on 04-09-2023 Urea nitrogen [Mass/Vol] 18 mg/dL 7-18 [facility] Thin prep Papanicolaou smear with manual screeningOrdered By: Vin Gatica on 04-09-2023 Thin prep Papanicolaou smear with manual screening 18 U/L 15-37 [facility] Thin prep Papanicolaou smear with manual screening 7 5-15 [facility] Absolute lymphocyte countOrd ered By: Nicoletrentdeepti Strangediandraluz on 04-02-2023 Lymphocytes Auto (Unsp spec) [#/Vol] 2.22 10*3/uL 0.83-4.51 [facility] Basophil percentageOrdered B y: Vin Gatica on 04-02-2023 Basophil percentage 79 mg/dL 74-106 [facility] Basophil percentage 6.1 g/dL 6.4-8.2 [facility] Basophil percentage 1.10 mg/dL 0.20-1.00 [facility] Basophil percentage 142 mmol/L 136-145 [facility] Basophil percentage 3.4 mmol/L 3.5-5.1 [facility] Basophil percentage 109 mmol/L 98-107 [facility] Basophils (Bld) [#/Vol] 4.5 10*3/uL 4.4-11.0 [facility] Basophils (Bld) [#/Vol] 1.5 10*3/uL 2.0-7.7 [facility] Basophils/100 WBC (Bld) 32.1 % 47-70 [facility] Basophils/100 WBC (Bld) 2.2 % 0-5 [facility] Basophils/100 WBC (Bld) 0.7 % 0-1 [facility] Blood erythrocytes count (nu mber/volume)Ordered By: Vin Gatica on 04-02-2023 RBC (Bld) [#/Vol] 3.58 10*6/uL 4.2-5.4 [facility] Blood hemoglobin measurement (mass/volume)Ordered By: Vin Gatica on 04-02-2023 Hemoglobin (Bld) [Mass/Vol] 10.3 g/dL 12.0-15.0 [facility] Blood lymphocytes/100 leukoc ytesOrdered By: Vin Gatica on 04-02-2023 Lymphocytes/100 WBC (Bld) 49.1 % 19-41 [facility] Blood monocytes/100 leukocyt esOrdered By: Vin Gatica on 04-02-2023 Monocytes/100 WBC (Bld) 15.0 % 0-10 [facility] Blood platelet mean volumeOr dered By: Vin Gatica on 04-02-2023 Platelet mean volume (Bld) [Entitic vol] 9.0 fL 6.2-12.0 [facility] Determination of erythrocyte mean corpuscular volume (MCV)Ordered By: Vin Gatica on 04-02-2023 MCV (RBC) [Entitic vol] 91.9 fL 81-99 [facility] Hematocrit Auto (Bld) [Volum e fraction]Ordered By: Vin Gatica on 04-02-2023 Hematocrit (Bld) [Volume fraction] 32.9 % 37-47 [facility] MCHC Auto (RBC) [Mass/Vol]Or dered By: Vin Gatica on 04-02-2023 MCHC (RBC) [Mass/Vol] 31.3 g/dL 32-36 [facility] No Panel InformationOrdered By: Vin Gatica on 04-02-2023 28.8 pg 27.0-32.0 [facility] 15.9 % 11.6-14.6 [facility] 53.7 fl 35.1-43.9 [facility] 0.900 % 0.0-0.9 [facility] 0 % 0-5 [facility] 63 mL/min >60 [facility] 77 mL/min >60 [facility] 20.3 RATIO 10-20 [facility] 2.3 g/dL 2.2-4.2 [facility] 36 U/L 45-117 [facility] 31 U/L 13-56 [facility] 24.0 mmol/L 21.0-32.0 [facility] Platelets bldOrdered By: Anton Gatica on 04-02-2023 Platelets (Bld) [#/Vol] 194 10*3/uL 150-450 [facility] Serum or plasma albumin shannan urement (mass/volume)Ordered By: Vin Gatica on 04-02-2023 Albumin [Mass/Vol] 3.8 g/dL 3.2-5.0 [facility] Serum or plasma albumin/glob ulin mass ratioOrdered By: Nicoletrentdeepti Gatica on 04-02-2023 Albumin/Globulin [Mass ratio] 1.7 {ratio} 0.9-2.4 [facility] Serum or plasma calcium shannan urement (mass/volume)Ordered By: Vin Gatica on 04-02-2023 Calcium [Mass/Vol] 9.0 mg/dL 8.5-10.1 [facility] Serum or plasma creatinine m easurement (mass/volume)Ordered By: Vin Gatica on 04-02-2023 Creatinine [Mass/Vol] 0.94 mg/dL 0.55-1.02 [facility] Serum or plasma urea nitroge n measurement (mass/volume)Ordered By: Vin Gatica on 04-02-2023 Urea nitrogen [Mass/Vol] 19 mg/dL 7-18 [facility] Thin prep Papanicolaou smear with manual screeningOrdered By: Vin Gatica on 04-02-2023 Thin prep Papanicolaou smear with manual screening 21 U/L 15-37 [facility] Thin prep Papanicolaou smear with manual screening 9 5-15 [facility] Absolute lymphocyte countOrd ered By: Vin Gatica on 03-27-2023 Lymphocytes Auto (Unsp spec) [#/Vol] 0.89 10*3/uL 0.83-4.51 [facility] Basophil percentageOrdered B y: Nicoletrentdeepti Gatica on 03-27-2023 Basophil percentage 131 mg/dL 74-106 [facility] Basophil percentage 6.7 g/dL 6.4-8.2 [facility] Basophil percentage 0.80 mg/dL 0.20-1.00 [facility] Basophil percentage 140 mmol/L 136-145 [facility] Basophil percentage 4.1 mmol/L 3.5-5.1 [facility] Basophil percentage 109 mmol/L 98-107 [facility] Basophils (Bld) [#/Vol] 7.6 10*3/uL 4.4-11.0 [facility] Basophils (Bld) [#/Vol] 6.1 10*3/uL 2.0-7.7 [facility] Basophils/100 WBC (Bld) 80.6 % 47-70 [facility] Basophils/100 WBC (Bld) 0.0 % 0-5 [facility] Basophils/100 WBC (Bld) 0.3 % 0-1 [facility] Blood erythrocytes count (nu mber/volume)Ordered By: Vin Gatica on 03-27-2023 RBC (Bld) [#/Vol] 3.77 10*6/uL 4.2-5.4 [facility] Blood hemoglobin measurement (mass/volume)Ordered By: Vin Gatica on 03-27-2023 Hemoglobin (Bld) [Mass/Vol] 11.0 g/dL 12.0-15.0 [facility] Blood lymphocytes/100 leukoc ytesOrdered By: Vin Gatica on 03-27-2023 Lymphocytes/100 WBC (Bld) 11.7 % 19-41 [facility] Blood monocytes/100 leukocyt esOrdered By: Vin Gatica on 03-27-2023 Monocytes/100 WBC (Bld) 5.4 % 0-10 [facility] Blood platelet mean volumeOr dered By: Vin Gatica on 03-27-2023 Platelet mean volume (Bld) [Entitic vol] 9.1 fL 6.2-12.0 [facility] Determination of erythrocyte mean corpuscular volume (MCV)Ordered By: Vin Gatica on 03-27-2023 MCV (RBC) [Entitic vol] 90.2 fL 81-99 [facility] Hematocrit Auto (Bld) [Volum e fraction]Ordered By: Vin Gatica on 03-27-2023 Hematocrit (Bld) [Volume fraction] 34.0 % 37-47 [facility] INR in Blood by Coagulation assayOrdered By: Vin Gatica on 03-27-2023 INR Coag (Bld) [Relative time] 1.0 {INR} [facility] MCHC Auto (RBC) [Mass/Vol]Or dered By: Vin Gatica on 03-27-2023 MCHC (RBC) [Mass/Vol] 32.4 g/dL 32-36 [facility] No Panel InformationOrdered By: Vin Gatica on 03-27-2023 29.2 pg 27.0-32.0 [facility] 16.2 % 11.6-14.6 [facility] 52.6 fl 35.1-43.9 [facility] 2.000 % 0.0-0.9 [facility] 0 % 0-5 [facility] 13.4 SECONDS 11.7-14.9 [facility] 49 mL/min >60 [facility] 59 mL/min >60 [facility] 16.1 RATIO 10-20 [facility] 3.0 g/dL 2.2-4.2 [facility] 47 U/L 45-117 [facility] 34 U/L 13-56 [facility] 22.0 mmol/L 21.0-32.0 [facility] Platelets bldOrdered By: Anton Gatica on 03-27-2023 Platelets (Bld) [#/Vol] 241 10*3/uL 150-450 [facility] Serum or plasma albumin shannan urement (mass/volume)Ordered By: Vin Gatica on 03-27-2023 Albumin [Mass/Vol] 3.7 g/dL 3.2-5.0 [facility] Serum or plasma albumin/glob ulin mass ratioOrdered By: Vin Gatica on 03-27-2023 Albumin/Globulin [Mass ratio] 1.2 {ratio} 0.9-2.4 [facility] Serum or plasma calcium shannan urement (mass/volume)Ordered By: Vin Gatica on 03-27-2023 Calcium [Mass/Vol] 9.1 mg/dL 8.5-10.1 [facility] Serum or plasma creatinine m easurement (mass/volume)Ordered By: Vin Gatica on 03-27-2023 Creatinine [Mass/Vol] 1.18 mg/dL 0.55-1.02 [facility] Serum or plasma urea nitroge n measurement (mass/volume)Ordered By: Vin Gatica on 03-27-2023 Urea nitrogen [Mass/Vol] 19 mg/dL 7-18 [facility] Thin prep Papanicolaou smear with manual screeningOrdered By: Vin Gatica on 03-27-2023 Thin prep Papanicolaou smear with manual screening 22 U/L 15-37 [facility] Thin prep Papanicolaou smear with manual screening 9 5-15 [facility] Absolute lymphocyte countOrd ered By: Nicoletrentdeepti Gatica on 03-26-2023 Lymphocytes Auto (Unsp spec) [#/Vol] 2.67 10*3/uL 0.83-4.51 [facility] Basophil percentageOrdered B y: Vin Gatica on 03-26-2023 Basophil percentage 71 mg/dL 74-106 [facility] Basophil percentage 6.4 g/dL 6.4-8.2 [facility] Basophil percentage 0.80 mg/dL 0.20-1.00 [facility] Basophil percentage 141 mmol/L 136-145 [facility] Basophil percentage 3.7 mmol/L 3.5-5.1 [facility] Basophil percentage 108 mmol/L 98-107 [facility] Basophils (Bld) [#/Vol] 8.8 10*3/uL 4.4-11.0 [facility] Basophils (Bld) [#/Vol] 4.9 10*3/uL 2.0-7.7 [facility] Basophils/100 WBC (Bld) 55.9 % 47-70 [facility] Basophils/100 WBC (Bld) 1.4 % 0-5 [facility] Basophils/100 WBC (Bld) 0.6 % 0-1 [facility] Blood erythrocytes count (nu mber/volume)Ordered By: Vin Gatica on 03-26-2023 RBC (Bld) [#/Vol] 3.75 10*6/uL 4.2-5.4 [facility] Blood hemoglobin measurement (mass/volume)Ordered By: Vin Gatica on 03-26-2023 Hemoglobin (Bld) [Mass/Vol] 10.7 g/dL 12.0-15.0 [facility] Blood lymphocytes/100 leukoc ytesOrdered By: Vin Gatica on 03-26-2023 Lymphocytes/100 WBC (Bld) 30.5 % 19-41 [facility] Blood monocytes/100 leukocyt esOrdered By: Vin Gatica on 03-26-2023 Monocytes/100 WBC (Bld) 9.9 % 0-10 [facility] Blood platelet mean volumeOr dered By: Vin Gatica on 03-26-2023 Platelet mean volume (Bld) [Entitic vol] 9.3 fL 6.2-12.0 [facility] Determination of erythrocyte mean corpuscular volume (MCV)Ordered By: Vin Gatica on 03-26-2023 MCV (RBC) [Entitic vol] 91.7 fL 81-99 [facility] Erythrocyte sedimentation ra teOrdered By: Vin Gatica on 03-26-2023 ESR (Bld) [Velocity] 7 mm/h 0-30 [facility] Hematocrit Auto (Bld) [Volum e fraction]Ordered By: Vin Gatica on 03-26-2023 Hematocrit (Bld) [Volume fraction] 34.4 % 37-47 [facility] MCHC Auto (RBC) [Mass/Vol]Or dered By: Vin Gatica on 03-26-2023 MCHC (RBC) [Mass/Vol] 31.1 g/dL 32-36 [facility] No Panel InformationOrdered By: Vin Gatica on 03-26-2023 28.5 pg 27.0-32.0 [facility] 16.5 % 11.6-14.6 [facility] 54.9 fl 35.1-43.9 [facility] 1.700 % 0.0-0.9 [facility] 0 % 0-5 [facility] 53 mL/min >60 [facility] 64 mL/min >60 [facility] 17.3 RATIO 10-20 [facility] 2.8 g/dL 2.2-4.2 [facility] 43 U/L 45-117 [facility] 33 U/L 13-56 [facility] 25.0 mmol/L 21.0-32.0 [facility] Platelets bldOrdered By: Antonluz silva Alexandrdiandraluz on 03-26-2023 Platelets (Bld) [#/Vol] 241 10*3/uL 150-450 [facility] Serum or plasma C reactive p rotein measurement (mass/volume)Ordered By: Vin Gatica on 03-26-2023 CRP [Mass/Vol] mg/L 0.0-3.0 [facility] Serum or plasma albumin shannan urement (mass/volume)Ordered By: Vin Gatica on 03-26-2023 Albumin [Mass/Vol] 3.6 g/dL 3.2-5.0 [facility] Serum or plasma albumin/glob ulin mass ratioOrdered By: Vin Gatica on 03-26-2023 Albumin/Globulin [Mass ratio] 1.3 {ratio} 0.9-2.4 [facility] Serum or plasma calcium shannan urement (mass/volume)Ordered By: Vin Gatica on 03-26-2023 Calcium [Mass/Vol] 9.0 mg/dL 8.5-10.1 [facility] Serum or plasma creatinine m easurement (mass/volume)Ordered By: Vin Gatica on 03-26-2023 Creatinine [Mass/Vol] 1.10 mg/dL 0.55-1.02 [facility] Serum or plasma urea nitroge n measurement (mass/volume)Ordered By: Vin Gatica on 03-26-2023 Urea nitrogen [Mass/Vol] 19 mg/dL 7-18 [facility] Thin prep Papanicolaou smear with manual screeningOrdered By: Vin Gatica on 03-26-2023 Thin prep Papanicolaou smear with manual screening 19 U/L 15-37 [facility] Thin prep Papanicolaou smear with manual screening 8 5-15 [facility] Absolute lymphocyte countOrd ered By: Vin Gatica on 03-19-2023 Lymphocytes Auto (Unsp spec) [#/Vol] 1.76 10*3/uL 0.83-4.51 [facility] Bacteria identified Cx Nom ( U)Ordered By: Vin Gatica on 03-19-2023 Culture, urine Presumptive E. coli [facility] Basophil percentageOrdered B y: Vin Gatica on 03-19-2023 Basophil percentage 64 mg/dL 74-106 [facility] Basophil percentage 5.6 g/dL 6.4-8.2 [facility] Basophil percentage 1.00 mg/dL 0.20-1.00 [facility] Basophil percentage 139 mmol/L 136-145 [facility] Basophil percentage 3.7 mmol/L 3.5-5.1 [facility] Basophil percentage 106 mmol/L 98-107 [facility] Basophils (Bld) [#/Vol] 7.8 10*3/uL 4.4-11.0 [facility] Basophils (Bld) [#/Vol] 4.7 10*3/uL 2.0-7.7 [facility] Basophils/100 WBC (Bld) 60.8 % 47-70 [facility] Basophils/100 WBC (Bld) 1.2 % 0-5 [facility] Basophils/100 WBC (Bld) 0.6 % 0-1 [facility] Bilirubin Test strip Ql (U)O rdered By: Vin Gatica on 03-19-2023 Bilirubin Ql (U) Negative Negative [facility] Blood erythrocytes count (nu mber/volume)Ordered By: Vin Gatica on 03-19-2023 RBC (Bld) [#/Vol] 3.57 10*6/uL 4.2-5.4 [facility] Blood hemoglobin measurement (mass/volume)Ordered By: Vin Gatica on 03-19-2023 Hemoglobin (Bld) [Mass/Vol] 10.1 g/dL 12.0-15.0 [facility] Blood lymphocytes/100 leukoc ytesOrdered By: Vin Gatica on 03-19-2023 Lymphocytes/100 WBC (Bld) 22.7 % 19-41 [facility] Blood monocytes/100 leukocyt esOrdered By: Vin Gatica on 03-19-2023 Monocytes/100 WBC (Bld) 10.7 % 0-10 [facility] Blood platelet mean volumeOr dered By: Vin Gatica on 03-19-2023 Platelet mean volume (Bld) [Entitic vol] 9.0 fL 6.2-12.0 [facility] Determination of erythrocyte mean corpuscular volume (MCV)Ordered By: Vin Gatica on 03-19-2023 MCV (RBC) [Entitic vol] 91.9 fL 81-99 [facility] Hematocrit Auto (Bld) [Volum e fraction]Ordered By: Vin Gatica on 03-19-2023 Hematocrit (Bld) [Volume fraction] 32.8 % 37-47 [facility] Ketones Test strip Ql (U)Ord ered By: Vin Gatica on 03-19-2023 Ketones Ql (U) Negative Negative [facility] MCHC Auto (RBC) [Mass/Vol]Or dered By: Vin Gatica on 03-19-2023 MCHC (RBC) [Mass/Vol] 30.8 g/dL 32-36 [facility] Nitrite Test strip Ql (U)Ord ered By: Vin Gatica on 03-19-2023 Nitrite Ql (U) Negative Negative [facility] No Panel InformationOrdered By: Vin Gatica on 03-19-2023 28.3 pg 27.0-32.0 [facility] 15.8 % 11.6-14.6 [facility] 51.1 fl 35.1-43.9 [facility] 4.000 % 0.0-0.9 [facility] 0.4 % 0-5 [facility] 59 mL/min >60 [facility] 71 mL/min >60 [facility] 23.0 RATIO 10-20 [facility] 2.4 g/dL 2.2-4.2 [facility] 43 U/L 45-117 [facility] 38 U/L 13-56 [facility] 27.0 mmol/L 21.0-32.0 [facility] Platelets bldOrdered By: Anton Gatica on 03-19-2023 Platelets (Bld) [#/Vol] 184 10*3/uL 150-450 [facility] Protein Test strip Ql (U)Ord ered By: Vin Gatica on 03-19-2023 Protein Ql (U) Negative Negative [facility] Serum or plasma albumin shannan urement (mass/volume)Ordered By: Vin Gatica on 03-19-2023 Albumin [Mass/Vol] 3.2 g/dL 3.2-5.0 [facility] Serum or plasma albumin/glob ulin mass ratioOrdered By: Vin Gatica on 03-19-2023 Albumin/Globulin [Mass ratio] 1.3 {ratio} 0.9-2.4 [facility] Serum or plasma calcium shannan urement (mass/volume)Ordered By: Vin Gatica on 03-19-2023 Calcium [Mass/Vol] 8.7 mg/dL 8.5-10.1 [facility] Serum or plasma creatinine m easurement (mass/volume)Ordered By: Vin Gatica on 03-19-2023 Creatinine [Mass/Vol] 1.00 mg/dL 0.55-1.02 [facility] Serum or plasma urea nitroge n measurement (mass/volume)Ordered By: Vin Gatica on 03-19-2023 Urea nitrogen [Mass/Vol] 23 mg/dL 7-18 [facility] Thin prep Papanicolaou smear with manual screeningOrdered By: Vin Gatica on 03-19-2023 Thin prep Papanicolaou smear with manual screening 18 U/L 15-37 [facility] Thin prep Papanicolaou smear with manual screening 6 5-15 [facility] Urine blood detectionOrdered By: Vin Gatcia on 03-19-2023 RBC Ql (U) 10 /ul Negative [facility] Urine clarityOrdered By: Anton Gatica on 03-19-2023 Clarity (U) Sl. Cloudy Clear [facility] Urine color determinationOrd ered By: Vin Gatica on 03-19-2023 Color (U) Yellow Yellow [facility] Urine glucose detectionOrder ed By: Vin Gatica on 03-19-2023 Glucose Ql (U) Normal mg/dl Normal [facility] Urine leukocyte esterase det ection by dipstickOrdered By: Vin Gatica on 03-19-2023 Leukocyte esterase Test strip Ql (U) 500 /ul Negative [facility] Urine pHOrdered By: Ana Luisa luz Gavi on 03-19-2023 pH (U) 6.0 [pH] 5.0 - 8.0 [facility] Urine specific gravity measu rementOrdered By: Vin Gatica on 03-19-2023 Specific gravity (U) [Rel density] 1.015 1.002-1.03 0 [facility] Urobilinogen Auto test strip Ql (U)Ordered By: Vin Gatica on 03-19-2023 Urobilinogen Ql (U) Normal mg/dl Normal [facility] Absolute lymphocyte countOrd ered By: Vin Gatica on 03-12-2023 Lymphocytes Auto (Unsp spec) [#/Vol] 1.43 10*3/uL 0.83-4.51 [facility] Basophil percentageOrdered B y: Vin Gatica on 03-12-2023 Basophil percentage Not Reportable [facility] Basophil percentage 88 mg/dL 74-106 [facility] Basophil percentage 5.6 g/dL 6.4-8.2 [facility] Basophil percentage 0.60 mg/dL 0.20-1.00 [facility] Basophil percentage 142 mmol/L 136-145 [facility] Basophil percentage 3.7 mmol/L 3.5-5.1 [facility] Basophil percentage 109 mmol/L 98-107 [facility] Basophils (Bld) [#/Vol] 9.5 10*3/uL 4.4-11.0 [facility] Basophils (Bld) [#/Vol] 7.5 10*3/uL 2.0-7.7 [facility] Blood band neutrophil count as percentage of total leukocytesOrdered By: Vin Gatica on 03-12-2023 Band form neutrophils/100 WBC (Bld) 2 % 0-5 [facility] Blood erythrocytes count (nu mber/volume)Ordered By: Vin Gatica on 03-12-2023 RBC (Bld) [#/Vol] 3.87 10*6/uL 4.2-5.4 [facility] Blood hemoglobin measurement (mass/volume)Ordered By: Vin Gatica on 03-12-2023 Hemoglobin (Bld) [Mass/Vol] 10.9 g/dL 12.0-15.0 [facility] Blood lymphocytes/100 leukoc ytesOrdered By: Vin Gatica on 03-12-2023 Lymphocytes/100 WBC (Bld) 15 % 19-41 [facility] Blood metamyelocytes/100 jaleesa kocytesOrdered By: Vin Gatica on 03-12-2023 Metamyelocytes/100 WBC (Bld) 2 % 0-1 [facility] Blood monocytes/100 leukocyt esOrdered By: Vin Gatica on 03-12-2023 Monocytes/100 WBC (Bld) 6 % 0-10 [facility] Blood platelet adequacy dete ction by light microscopyOrdered By: Vin Gatica on 03-12-2023 Platelets LM Ql (Bld) ADEQUATE ADEQ [facility] Blood platelet mean volumeOr dered By: Vin Gatica on 03-12-2023 Platelet mean volume (Bld) [Entitic vol] 9.1 fL 6.2-12.0 [facility] Blood segmented neutrophils/ 100 leukocytesOrdered By: Vin Gatica on 03-12-2023 Segmented neutrophils/100 WBC (Bld) 71 % 47-70 [facility] Determination of erythrocyte mean corpuscular volume (MCV)Ordered By: Vin Gatica on 03-12-2023 MCV (RBC) [Entitic vol] 89.1 fL 81-99 [facility] Hematocrit Auto (Bld) [Volum e fraction]Ordered By: Vin Gatica on 03-12-2023 Hematocrit (Bld) [Volume fraction] 34.5 % 37-47 [facility] MCHC Auto (RBC) [Mass/Vol]Or dered By: Vin Gatica on 03-12-2023 MCHC (RBC) [Mass/Vol] 31.6 g/dL 32-36 [facility] No Panel InformationOrdered By: Vin Gatica on 03-12-2023 28.2 pg 27.0-32.0 [facility] 15.0 % 11.6-14.6 [facility] 47.6 fl 35.1-43.9 [facility] 4 % 0-0 [facility] 68 mL/min >60 [facility] 82 mL/min >60 [facility] 27.1 RATIO 10-20 [facility] 2.6 g/dL 2.2-4.2 [facility] 63 U/L 45-117 [facility] 61 U/L 13-56 [facility] 27.0 mmol/L 21.0-32.0 [facility] Platelets bldOrdered By: Anton Gatica on 03-12-2023 Platelets (Bld) [#/Vol] 171 10*3/uL 150-450 [facility] RBC morphologyOrdered By: Lizbet Gatica on 03-12-2023 RBC morphology finding Nom (Bld) NORM C+C NORMAL NORM C&C [facility] Review by pathologistOrdered By: Vin Gatica on 03-12-2023 Pathologist review Angel (Unsp spec) [Interp] Reviewed [facility] Serum or plasma albumin shannan urement (mass/volume)Ordered By: Vin Gatica on 03-12-2023 Albumin [Mass/Vol] 3.0 g/dL 3.2-5.0 [facility] Serum or plasma albumin/glob ulin mass ratioOrdered By: Vin Gatica on 03-12-2023 Albumin/Globulin [Mass ratio] 1.2 {ratio} 0.9-2.4 [facility] Serum or plasma calcium shannan urement (mass/volume)Ordered By: Vin Gatica on 03-12-2023 Calcium [Mass/Vol] 8.7 mg/dL 8.5-10.1 [facility] Serum or plasma creatinine m easurement (mass/volume)Ordered By: Vin Gatica on 03-12-2023 Creatinine [Mass/Vol] 0.88 mg/dL 0.55-1.02 [facility] Serum or plasma urea nitroge n measurement (mass/volume)Ordered By: Vin Gatica on 03-12-2023 Urea nitrogen [Mass/Vol] 24 mg/dL 7-18 [facility] Thin prep Papanicolaou smear with manual screeningOrdered By: Vin Gatica on 03-12-2023 Thin prep Papanicolaou smear with manual screening 29 U/L 15-37 [facility] Thin prep Papanicolaou smear with manual screening 6 5-15 [facility] Total cell countOrdered By: Vin Gatica on 03-12-2023 Cells counted Molgen (Bld/Tiss) [#] 100 MANUAL DIFF [facility] Basophil percentageOrdered B y: Vin Gatica on 03-08-2023 Basophil percentage 3.4 mmol/L 3.5-5.1 [facility] Potassium [Moles/Vol] 3.4 mmol/L 3.5-5.1 [facility] Erythrocyte sedimentation ra teOrdered By: Vin Gatica on 03-06-2023 ESR (Bld) [Velocity] 16 mm/h 0-30 [facility] Serum or plasma C reactive p rotein measurement (mass/volume)Ordered By: Vin Gatica on 03-06-2023 CRP [Mass/Vol] 10.40 mg/L 0.0-3.0 [facility] Comment on above: C-Reactive Protein ( CRP) provides useful information for thediagnosis, therapy and monitoring of inflammatory processesand associated diseases. For the evaluation of Relative Riskfor Cardiovascular Disease, a High Sensitivity CRP (HSCRP)should be ordered. Absolute lymphocyte countOrd ered By: Vin Gatica on 03-05-2023 Lymphocytes Auto (Unsp spec) [#/Vol] 1.02 10*3/uL 0.83-4.51 [facility] Basophil percentageOrdered B y: Vin Gatica on 03-05-2023 Basophil percentage 121 mg/dL 74-106 [facility] Basophil percentage 5.4 g/dL 6.4-8.2 [facility] Basophil percentage 1.00 mg/dL 0.20-1.00 [facility] Basophil percentage 140 mmol/L 136-145 [facility] Basophil percentage 3.4 mmol/L 3.5-5.1 [facility] Basophil percentage 105 mmol/L 98-107 [facility] Basophils (Bld) [#/Vol] 6.2 10*3/uL 4.4-11.0 [facility] Basophils (Bld) [#/Vol] 4.4 10*3/uL 2.0-7.7 [facility] Basophils/100 WBC (Bld) 0.3 % 0-1 [facility] Basophils/100 WBC (Bld) 70.9 % 47-70 [facility] Basophils/100 WBC (Bld) 1.6 % 0-5 [facility] Bilirubin [Mass/Vol] 1.00 mg/dL 0.20-1.00 [facility] Comment on above: For patients on eltr ombopag therapy, use of Dimension [place] TBIL is not recommended. Chloride [Moles/Vol] 105 mmol/L 98-107 [facility] Eosinophils/100 WBC (Bld) 1.6 % 0-5 [facility] Glucose [Mass/Vol] 121 mg/dL 74-106 [facility] Comment on above: Fasting Glucose resu lt from 100 to 125 mg/dL suggests IMPAIRED HOMEOSTASIS per A.D.A. criteria. Neutrophils (Bld) [#/Vol] 4.4 10*3/uL 2.0-7.7 [facility] Neutrophils/100 WBC (Bld) 70.9 % 47-70 [facility] Potassium [Moles/Vol] 3.4 mmol/L 3.5-5.1 [facility] Protein [Mass/Vol] 5.4 g/dL 6.4-8.2 [facility] Sodium [Moles/Vol] 140 mmol/L 136-145 [facility] WBC (Bld) [#/Vol] 6.2 10*3/uL 4.4-11.0 [facility] Blood erythrocytes count (nu mber/volume)Ordered By: Vin Gatica on 03-05-2023 RBC (Bld) [#/Vol] 4.20 10*6/uL 4.2-5.4 [facility] Blood hemoglobin measurement (mass/volume)Ordered By: Vin Gatica on 03-05-2023 Hemoglobin (Bld) [Mass/Vol] 11.8 g/dL 12.0-15.0 [facility] Blood lymphocytes/100 leukoc ytesOrdered By: pingdeepti Strangediandraluz on 03-05-2023 Lymphocytes/100 WBC (Bld) 16.5 % 19-41 [facility] Blood monocytes/100 leukocyt esOrdered By: [facility] Str[facility] on 03-05-2023 Monocytes/100 WBC (Bld) 8.6 % 0-10 [facility] Blood platelet mean volumeOr dered By: addyorovilledeepti Strangediandraluz on 03-05-2023 Platelet mean volume (Bld) [Entitic vol] 9.2 fL 6.2-12.0 [facility] Determination of erythrocyte mean corpuscular volume (MCV)Ordered By: addyorovilledeepti Gatica on 03-05-2023 MCV (RBC) [Entitic vol] 89.0 fL 81-99 [facility] Hematocrit Auto (Bld) [Volum e fraction]Ordered By: addyorovilledeepti Strangediandraluz on 03-05-2023 Hematocrit (Bld) [Volume fraction] 37.4 % 37-47 [facility] Laboratory - Chemistry and C hemistry - challengeOrdered By: teresa Gatica on 03-05-2023 ALP [Catalytic activity/Vol] 63 U/L 45-117 [facility] ALT [Catalytic activity/Vol] 63 U/L 13-56 [facility] CO2 [Moles/Vol] 30.0 mmol/L 21.0-32.0 [facility] Globulin (S) [Mass/Vol] 2.4 g/dL 2.2-4.2 [facility] Urea nitrogen/Creatinine [Mass ratio] 19.7 mg/mg 10-20 [facility] Laboratory - Hematology and Cell countsOrdered By: addyorovilledeepti Gatica on 03-05-2023 Erythrocyte distribution width (RBC) [Entitic vol] 48.7 fL 35.1-43.9 [facility] Erythrocyte distribution width (RBC) [Ratio] 15.3 % 11.6-14.6 [facility] Immature granulocytes/100 WBC (Bld) 2.100 % 0.0-0.9 [facility] Comment on above: IG% - Immature Granu locytes (promyelocytes, myelocytes and metamyelocytes) > 1% indicates that a LEFT SHIFT is Present. MCH (RBC) [Entitic mass] 28.1 pg 27.0-32.0 [facility] Nucleated RBC/100 WBC (Bld) [Ratio] 0 % 0-5 [facility] MCHC Auto (RBC) [Mass/Vol]Or dered By: Vin Gatica on 03-05-2023 MCHC (RBC) [Mass/Vol] 31.6 g/dL 32-36 [facility] No Panel InformationOrdered By: Vin Gatica on 03-05-2023 Estimated GFR (MDRD) Amer 90 mL/min >60 [facility] Comment on above: GFR Calc Estimated GFR (MDRD) Non-Af Amer 75 mL/min >60 [facility] Comment on above: Non- GFR Calc 28.1 pg 27.0-32.0 [facility] 15.3 % 11.6-14.6 [facility] 48.7 fl 35.1-43.9 [facility] 2.100 % 0.0-0.9 [facility] 0 % 0-5 [facility] 75 mL/min >60 [facility] 90 mL/min >60 [facility] 19.7 RATIO 10-20 [facility] 2.4 g/dL 2.2-4.2 [facility] 63 U/L 13-56 [facility] 30.0 mmol/L 21.0-32.0 [facility] Platelets bldOrdered By: Anton Gatica on 03-05-2023 Platelets (Bld) [#/Vol] 114 10*3/uL 150-450 [facility] Serum or plasma albumin shannan urement (mass/volume)Ordered By: Vin Gatica on 03-05-2023 Albumin [Mass/Vol] 3.0 g/dL 3.2-5.0 [facility] Serum or plasma albumin/glob ulin mass ratioOrdered By: Vin Gatica on 03-05-2023 Albumin/Globulin [Mass ratio] 1.2 {ratio} 0.9-2.4 [facility] Serum or plasma calcium shannan urement (mass/volume)Ordered By: Vin Gatica on 03-05-2023 Calcium [Mass/Vol] 9.1 mg/dL 8.5-10.1 [facility] Serum or plasma creatinine m easurement (mass/volume)Ordered By: Vin Gatica on 03-05-2023 Creatinine [Mass/Vol] 0.81 mg/dL 0.55-1.02 [facility] Comment on above: The validity of the calculated GFR & GFRAA in patients over 70 years has not been determined. Clinical correlation is essential. Serum or plasma urea nitroge n measurement (mass/volume)Ordered By: Vin Gatica on 03-05-2023 Urea nitrogen [Mass/Vol] 16 mg/dL 7-18 [facility] Thin prep Papanicolaou smear with manual screeningOrdered By: Vin Gatica on 03-05-2023 Thin prep Papanicolaou smear with manual screening 52 U/L 15-37 [facility] Thin prep Papanicolaou smear with manual screening 5 5-15 [facility] Basophil percentageOrdered B y: Anny Leach on 03-02-2023 Basophil percentage 91 mg/dL 74-106 [facility] Basophil percentage 142 mmol/L 136-145 [facility] Basophil percentage 3.5 mmol/L 3.5-5.1 [facility] Basophil percentage 110 mmol/L 98-107 [facility] Chloride [Moles/Vol] 110 mmol/L 98-107 [facility] Glucose [Mass/Vol] 91 mg/dL 74-106 [facility] Potassium [Moles/Vol] 3.5 mmol/L 3.5-5.1 [facility] Sodium [Moles/Vol] 142 mmol/L 136-145 [facility] COVID-19 virus antigen assay Ordered By: Anny Leach on 03-02-2023 SARS-CoV-2 (COVID-19) Ag IA.rapid Ql (Resp) [facility] SARS-CoV-2 (COVID-19) Ag IA.rapid Ql (Resp) [facility] Laboratory - Chemistry and C hemistry - challengeOrdered By: Anny Leach on 03-02-2023 CO2 [Moles/Vol] 28.0 mmol/L 21.0-32.0 [facility] Urea nitrogen/Creatinine [Mass ratio] 12.1 mg/mg 10- [facility] No Panel InformationOrdered By: Anny Leach on 03-02-2023 Estimated Creatinine Clearance Calc 49.63 ml/min [facility] Estimated GFR (MDRD) Amer 89 mL/min >60 [facility] Comment on above: GFR Calc Estimated GFR (MDRD) Non-Af Amer 73 mL/min >60 [facility] Comment on above: Non- GFR Calc Thyroid Stimulating Hormone (TSH) 1.55 uIU/mL 0.358-3.74 [facility] 73 mL/min >60 [facility] 89 mL/min >60 [facility] 49.63 ml/min [facility] 12.1 RATIO 10- [facility] 28.0 mmol/L 21.0-32.0 [facility] 1.55 uIU/mL 0.358-3.74 [facility] Serum or plasma calcium shannan urement (mass/volume)Ordered By: Anny Leach on 03-02-2023 Calcium [Mass/Vol] 8.0 mg/dL 8.5-10.1 [facility] Serum or plasma creatinine m easurement (mass/volume)Ordered By: Anny Leach on 03-02-2023 Creatinine [Mass/Vol] 0.83 mg/dL 0.55-1.02 [facility] Comment on above: The validity of the calculated GFR & GFRAA in patients over 70 years has not been determined. Clinical correlation is essential. Serum or plasma urea nitroge n measurement (mass/volume)Ordered By: Anny Leach on 03-02-2023 Urea nitrogen [Mass/Vol] 10 mg/dL -18 [facility] Thin prep Papanicolaou smear with manual screeningOrdered By: Anny Leach on 03-02-2023 Thin prep Papanicolaou smear with manual screening 4 5-15 [facility] Absolute lymphocyte countOrd ered By: Anny Leach on 03-01-2023 Lymphocytes Auto (Unsp spec) [#/Vol] 1.20 10*3/uL 0.83-4.51 [facility] Basophil percentageOrdered B y: Anny Leach on 03-01-2023 Basophils (Bld) [#/Vol] 7.3 10*3/uL 4.4-11.0 [facility] Basophils (Bld) [#/Vol] 5.0 10*3/uL 2.0-7.7 [facility] Basophils/100 WBC (Bld) 0.4 % 0-1 [facility] Basophils/100 WBC (Bld) 68.5 % 47-70 [facility] Basophils/100 WBC (Bld) 0.1 % 0-5 [facility] Eosinophils/100 WBC (Bld) 0.1 % 0-5 [facility] Neutrophils (Bld) [#/Vol] 5.0 10*3/uL 2.0-7.7 [facility] Neutrophils/100 WBC (Bld) 68.5 % 47-70 [facility] WBC (Bld) [#/Vol] 7.3 10*3/uL 4.4-11.0 [facility] Blood erythrocytes count (nu mber/volume)Ordered By: Anny Leach on 03-01-2023 RBC (Bld) [#/Vol] 3.68 10*6/uL 4.2-5.4 [facility] Blood hemoglobin measurement (mass/volume)Ordered By: Anny Leach on 03-01-2023 Hemoglobin (Bld) [Mass/Vol] 10.3 g/dL 12.0-15.0 [facility] Blood lymphocytes/100 leukoc ytesOrdered By: Anny Leach on 03-01-2023 Lymphocytes/100 WBC (Bld) 16.3 % 19-41 [facility] Blood monocytes/100 leukocyt esOrdered By: Anny Leach on 03-01-2023 Monocytes/100 WBC (Bld) 9.8 % 0-10 [facility] Blood platelet mean volumeOr dered By: Anny Leach on 03-01-2023 Platelet mean volume (Bld) [Entitic vol] 8.9 fL 6.2-12.0 [facility] Determination of erythrocyte mean corpuscular volume (MCV)Ordered By: Anny Leach on 03-01-2023 MCV (RBC) [Entitic vol] 89.9 fL 81-99 [facility] Hematocrit Auto (Bld) [Volum e fraction]Ordered By: Anny Leach on 03-01-2023 Hematocrit (Bld) [Volume fraction] 33.1 % 37-47 [facility] Laboratory - Hematology and Cell countsOrdered By: Anny Leach on 03-01-2023 Erythrocyte distribution width (RBC) [Entitic vol] 50.4 fL 35.1-43.9 [facility] Erythrocyte distribution width (RBC) [Ratio] 15.7 % 11.6-14.6 [facility] Immature granulocytes/100 WBC (Bld) 4.900 % 0.0-0.9 [facility] Comment on above: IG% - Immature Granu locytes (promyelocytes, myelocytes and metamyelocytes) > 1% indicates that a LEFT SHIFT is Present. MCH (RBC) [Entitic mass] 28.0 pg 27.0-32.0 [facility] Nucleated RBC/100 WBC (Bld) [Ratio] 0.3 % 0-5 [facility] MCHC Auto (RBC) [Mass/Vol]Or dered By: Anny Leach on 03-01-2023 MCHC (RBC) [Mass/Vol] 31.1 g/dL 32-36 [facility] No Panel InformationOrdered By: Anny Leach on 03-01-2023 28.0 pg 27.0-32.0 [facility] 15.7 % 11.6-14.6 [facility] 50.4 fl 35.1-43.9 [facility] 4.900 % 0.0-0.9 [facility] 0.3 % 0-5 [facility] Platelets bldOrdered By: Sera Leach on 03-01-2023 Platelets (Bld) [#/Vol] 156 10*3/uL 150-450 [facility] Stool enteric pathogen panel by probe and target amplification methodOrdered By: Anny Leach on 03-01-2023 Gastrointestinal pathogens panel AMBROSE+probe (Stl) [facility] Gastrointestinal pathogens panel AMBROSE+probe (Stl) [facility] Basophil percentageOrdered B y: Anny Leach on 02-28-2023 Basophil percentage 5.1 g/dL 6.4-8.2 [facility] Basophil percentage 1.00 mg/dL 0.20-1.00 [facility] Bilirubin [Mass/Vol] 1.00 mg/dL 0.20-1.00 [facility] Comment on above: For patients on eltr ombopag therapy, use of Dimension [place] TBIL is not recommended. Protein [Mass/Vol] 5.1 g/dL 6.4-8.2 [facility] Blood band neutrophil count as percentage of total leukocytesOrdered By: Anny Leach on 02-28-2023 Band form neutrophils/100 WBC (Bld) 1 % 0-5 [facility] Blood lymphocytes/100 leukoc ytesOrdered By: Anny Leach on 02-28-2023 Lymphocytes/100 WBC (Bld) 16 % 19-41 [facility] Blood monocytes/100 leukocyt esOrdered By: Anny Leach on 02-28-2023 Monocytes/100 WBC (Bld) 7 % 0-10 [facility] Blood platelet adequacy dete ction by light microscopyOrdered By: Anny Leach on 02-28-2023 Platelets LM Ql (Bld) ADEQUATE ADEQ [facility] Blood segmented neutrophils/ 100 leukocytesOrdered By: Anny Leach on 02-28-2023 Segmented neutrophils/100 WBC (Bld) 74 % 47-70 [facility] Laboratory - Chemistry and C hemistry - challengeOrdered By: Anny Leach on 02-28-2023 ALP [Catalytic activity/Vol] 44 U/L 45-117 [facility] ALT [Catalytic activity/Vol] 40 U/L 13-56 [facility] Globulin (S) [Mass/Vol] 2.2 g/dL 2.2-4.2 [facility] Laboratory - Hematology and Cell countsOrdered By: Anny Leach on 02-28-2023 Myelocytes/100 WBC (Bld) 2 % 0-0 [facility] No Panel InformationOrdered By: Anny Leach on 02-28-2023 2 % 0-0 [facility] 2.2 g/dL 2.2-4.2 [facility] 44 U/L 45-117 [facility] 40 U/L 13-56 [facility] RBC morphologyOrdered By: Sonal Leach on 02-28-2023 RBC morphology finding Nom (Bld) NORM C+C NORMAL NORM C&C [facility] Review by pathologistOrdered By: Anny Leach on 02-28-2023 Pathologist review Angel (Unsp spec) [Interp] Reviewed [facility] Comment on above: Previous reported re sult: Carmencita gilmore Edited by: RGOCOURTNEY on 03/01/23:1459Neutrophilic left shift.Normocytic anemia.Clinical correlation necessary.Mo Bustamante M.D. 03/01/23 AMENDED REPORT 03/01/23 1459 PATH REV previously reported as: Carmencita gilmore Serum or plasma albumin shannan urement (mass/volume)Ordered By: Anny Leach on 02-28-2023 Albumin [Mass/Vol] 2.9 g/dL 3.2-5.0 [facility] Serum or plasma albumin/glob ulin mass ratioOrdered By: Anny Leach on 02-28-2023 Albumin/Globulin [Mass ratio] 1.3 {ratio} 0.9-2.4 [facility] Thin prep Papanicolaou smear with manual screeningOrdered By: Anny Leach on 02-28-2023 Thin prep Papanicolaou smear with manual screening 18 U/L 15-37 [facility] Total cell countOrdered By: Anny Leach on 02-28-2023 Cells counted Molgen (Bld/Tiss) [#] 100 MANUAL DIFF [facility] Albumin Elph [Mass/Vol]Order ed By: Milan Massey on 02-27-2023 Albumin [Mass/Vol] 3.1 g/dL 2.9-4.4 [facility] Interpretation of serum or p lasma protein pattern by immunofixation (narrative resultOrdered By: Milan Masesy on 02-27-2023 Protein Fractions Immunofixation Angel [Interp] See comment [facility] Comment on above: NOT OBSERVED Laboratory - Chemistry and C hemistry - challengeOrdered By: Anny Leach on 02-27-2023 Magnesium [Mass/Vol] 1.8 mg/dL 1.6-2.6 [facility] No Panel InformationOrdered By: Milan Friend on 02-27-2023 Addendum Document Comment . [facility] Comment on above: Protein electrophore sis scan will follow via computer,mail, or jewelry maker delivery. Anti-Gliadin IgA Antibody 4 units 0-19 [facility] Comment on above: Negative 0 - 19 Weak Positive 20 - 30 Moderate to Strong Positive >30 Anti-Gliadin IgG Antibody 2 units 0-19 [facility] Comment on above: Negative 0 - 19 Weak Positive 20 - 30 Moderate to Strong Positive >30 Endomysial IgA Antibody Negative Negative [facility] Miscellaneous Test See comment [facility] Comment on above: TEST RESULT LIMITSCh romogranin A, 1638.0 High ng/mL 0.0-101.8Chromogranin A performed by [employer] methodologyValues obtained with different assay methods or kits cannot be used interchangeably. TESTING PERFORMED AT [facility]. ORIGINAL REPORT ON FILE IN LAB CONTAINS ADDITIONAL TEST SITE INFORMATION. Tissue Transglutaminase IgG Ab <2 U/mL 0-5 [facility] Comment on above: Negative 0 - 5 Weak Positive 6 - 9 Positive >9 See comment [facility] 4 units 0-19 [facility] 2 units 0-19 [facility] <2 U/mL 0-5 [facility] Negative Negative [facility] No Panel InformationOrdered By: Anny Leach on 02-27-2023 1.8 mg/dL 1.6-2.6 [facility] Serum zapqs-2-bylwdhva measu rement by electrophoresisOrdered By: Milan Massey on 02-27-2023 Alpha 1 globulin Elph [Mass/Vol] 0.2 g/dL 0.0-0.4 [facility] Alpha 1 globulin Elph [Mass/Vol] 0.5 g/dL 0.4-1.0 [facility] Serum or plasma IgA measurem ent (mass/volume)Ordered By: Milan Massey on 02-27-2023 IgA [Mass/Vol] 63 mg/dL 87-352 [facility] Comment on above: *Additional results available. Contact laboratory/see report* Serum or plasma IgG measurem ent (mass/volume)Ordered By: Milan Massey on 02-27-2023 IgG [Mass/Vol] 322 mg/dL 586-1602 [facility] Serum or plasma IgM measurem ent (mass/volume)Ordered By: Milan Massey on 02-27-2023 IgM [Mass/Vol] 49 mg/dL 26-217 [facility] Serum or plasma angiotensin converting enzyme measurement (enzymatic activity/volume)Ordered By: Milan Massey on 02-27-2023 Angiotensin converting enzyme [Catalytic activity/Vol] U/L 14-82 [facility] Comment on above: Performed at: [facility] [employer] [id number] Director: Chato Nielsen PhD, Phone: [phone] at: [facility] [id number] Director: Quintin Cuellar MD, Phone: [phone] Serum or plasma beta globuli n measurement by electrophoresis (mass/volume)Ordered By: Milan Massey on 02-27-2023 Beta globulin Elph [Mass/Vol] 0.7 g/dL 0.7-1.3 [facility] Serum or plasma gamma globul in measurement by electrophoresis (mass/volume)Ordered By: Milan Massey on 02-27-2023 Gamma globulin Elph [Mass/Vol] 0.3 g/dL 0.4-1.8 [facility] Serum or plasma gastrin shannan urement (mass/volume)Ordered By: Milan Massey on 02-27-2023 Gastrin [Mass/Vol] 742 pg/mL 0-115 [facility] Comment on above: Siemens Caktusulite 200 0 Immunochemiluminometric assay (ICMA)Values obtained with different assay methods or kits cannotbe used interchangeably. Results cannot be interpreted asabsolute evidence of the presence or absence of malignantdisease. Serum or plasma immunoelectr ophoresis interpretation (nominal result)Ordered By: Milan Massey on 02-27-2023 Interpretation IEP [Interp] Comment . [facility] Comment on above: No monoclonality det ected. Serum tissue transglutaminas e IgA antibody assay (units/volume)Ordered By: Milan Massey on 02-27-2023 tTG IgA Qn (S) <2 U/mL 0-3 [facility] Comment on above: Negative 0 - 3 Weak Positive 4 - 10 Positive >10 Tissue Transglutaminase (tTG) has been identified as the endomysial antigen. Studies have demonstr- ated that endomysial IgA antibodies have over 99% specificity for gluten sensitive enteropathy. Thin prep Papanicolaou smear with manual screeningOrdered By: Milan Massey on 02-27-2023 Thin prep Papanicolaou smear with manual screening 1.8 0.7-1.7 [facility] Total protein bloodOrdered B y: Milan Massey on 02-27-2023 Protein [Mass/Vol] 4.9 g/dL 6.0-8.5 [facility] Basophil percentageOrdered B y: Anny Leach on 02-26-2023 Basophil percentage 3.0 mg/dL 2.5-4.9 [facility] Blood manual differential co mment interpretation (narrative result)Ordered By: Anny Leach on 02-26-2023 Manual differential comment Angel (Bld) [Interp] COMMENT [facility] Comment on above: LYMPHOPENIA. Iron measurement (mass/mass) Ordered By: Milan Massey on 02-26-2023 Iron (Unsp spec) [Mass/Mass] 34 ug/dL 50-170 [facility] No Panel InformationOrdered By: Milan Massey on 02-26-2023 Total Iron Binding Capacity 285 ug/dL 250-450 [facility] 285 ug/dL 250-450 [facility] Serum or plasma ferritin luan surement (mass/volume)Ordered By: Milan Massey on 02-26-2023 Ferritin [Mass/Vol] 71 ng/mL 8-252 [facility] Serum or plasma iron saturat ion measurement (mass fraction)Ordered By: Milan Massey on 02-26-2023 Iron saturation [Mass fraction] 11.9 % 15.0-55.0 [facility] Laboratory - Chemistry and C hemistry - challengeOrdered By: Araceli Branham on 02-25-2023 Lipase [Catalytic activity/Vol] 79 U/L 13-75 [facility] Comment on above: Please note:LIPASE r evised reference range effective 22. New Lipase methodology. Expected to produce lower values than the previous assay method. NEW Reference Range: 13 - 75 U/L No Panel InformationOrdered By: Araceli Branham on 02-25-2023 79 U/L 13-75 [facility] Absolute lymphocyte countOrd ered By: Kyler Fox on 02-24-2023 Lymphocytes Auto (Unsp spec) [#/Vol] 1.86 10*3/uL 0.83-4.51 [facility] Basophil percentageOrdered B y: Kyler Fox on 02-24-2023 Basophil percentage 489 U/L 84-246 [facility] LDH [Catalytic activity/Vol] 489 U/L 84-246 [facility] Basophils/100 WBC (Bld) 0.6 % 0-1 [facility] [facility] Eosinophils/100 WBC (Bld) 0.9 % 0-5 [facility] Neutrophils (Bld) [#/Vol] 4.1 10*3/uL 2.0-7.7 [facility] Neutrophils/100 WBC (Bld) 58.7 % 47-70 [facility] WBC (Bld) [#/Vol] 6.9 10*3/uL 4.4-11.0 [facility] Bilirubin [Mass/Vol] 1.80 mg/dL 0.20-1.00 [facility] Comment on above: For patients on eltr ombopag therapy, use of Dimension [place] TBIL is not recommended. Chloride [Moles/Vol] 106 mmol/L 98-107 [facility] Glucose [Mass/Vol] 80 mg/dL 74-106 [facility] Potassium [Moles/Vol] 3.6 mmol/L 3.5-5.1 [facility] Comment on above: Moderate Hemolysis, Result may be falsely increased. Protein [Mass/Vol] 6.4 g/dL 6.4-8.2 [facility] Sodium [Moles/Vol] 140 mmol/L 136-145 [facility] Basophil percentageOrdered B y: Araceli Branham on 02-24-2023 Basophil percentage 1.4 mg/dL 2.5-4.9 [facility] Blood erythrocytes count (nu mber/volume)Ordered By: Kyler Fox on 02-24-2023 RBC (Bld) [#/Vol] 4.25 10*6/uL 4.2-5.4 [facility] Blood hemoglobin measurement (mass/volume)Ordered By: Kyler Fox on 02-24-2023 Hemoglobin (Bld) [Mass/Vol] 12.0 g/dL 12.0-15.0 [facility] Blood lymphocytes/100 leukoc ytesOrdered By: Kyler Fox on 02-24-2023 Lymphocytes/100 WBC (Bld) 26.8 % 19-41 [facility] Blood monocytes/100 leukocyt esOrdered By: Kyler Fox on 02-24-2023 Monocytes/100 WBC (Bld) 10.4 % 0-10 [facility] Blood platelet mean volumeOr dered By: Kyler Fox on 02-24-2023 Platelet mean volume (Bld) [Entitic vol] 9.2 fL 6.2-12.0 [facility] Determination of erythrocyte mean corpuscular volume (MCV)Ordered By: Kyler Fox on 02-24-2023 MCV (RBC) [Entitic vol] 89.4 fL 81-99 [facility] Direct bilirubinOrdered By: Kyler Fox on 02-24-2023 Bilirubin.direct [Mass/Vol] 0.35 mg/dL 0.00-0.30 [facility] Erythrocyte sedimentation ra teOrdered By: Kyler Fox on 02-24-2023 ESR (Bld) [Velocity] 2 mm/h 0-30 [facility] Hematocrit Auto (Bld) [Volum e fraction]Ordered By: Kyler Fox on 02-24-2023 Hematocrit (Bld) [Volume fraction] 38.0 % 37-47 [facility] Laboratory - Chemistry and C hemistry - challengeOrdered By: Araceli Branham on 02-24-2023 Magnesium [Mass/Vol] 1.7 mg/dL 1.6-2.6 [facility] Laboratory - Chemistry and C hemistry - challengeOrdered By: Kyler Fox on 02-24-2023 ALP [Catalytic activity/Vol] 60 U/L 45-117 [facility] ALT [Catalytic activity/Vol] 63 U/L 13-56 [facility] CO2 [Moles/Vol] 25.0 mmol/L 21.0-32.0 [facility] Globulin (S) [Mass/Vol] 2.6 g/dL 2.2-4.2 [facility] Lipase [Catalytic activity/Vol] 174 U/L 13-75 [facility] Comment on above: Please note:LIPASE r evised reference range effective 22. New Lipase methodology. Expected to produce lower values than the previous assay method. NEW Reference Range: 13 - 75 U/L Urea nitrogen/Creatinine [Mass ratio] 15.3 mg/mg 10-20 [facility] Laboratory - Hematology and Cell countsOrdered By: Kyler Fox on 02-24-2023 Erythrocyte distribution width (RBC) [Entitic vol] 46.1 fL 35.1-43.9 [facility] Erythrocyte distribution width (RBC) [Ratio] 14.5 % 11.6-14.6 [facility] Immature granulocytes/100 WBC (Bld) 2.600 % 0.0-0.9 [facility] Comment on above: IG% - Immature Granu locytes (promyelocytes, myelocytes and metamyelocytes) > 1% indicates that a LEFT SHIFT is Present. MCH (RBC) [Entitic mass] 28.2 pg 27.0-32.0 [facility] Nucleated RBC/100 WBC (Bld) [Ratio] 0 % 0-5 [facility] MCHC Auto (RBC) [Mass/Vol]Or dered By: Kyler Fox on 02-24-2023 MCHC (RBC) [Mass/Vol] 31.6 g/dL 32-36 [facility] No Panel InformationOrdered By: Kyler Fox on 02-24-2023 Ethyl Alcohol Level < 3.0 mg/dL [facility] Comment on above: The serum:whole bloo d ethanol ratio is approximately 1.14and varies slightly with hematocrit. Medical Alcohol reference interval and critical value innon-tolerant individuals; 50 - 100 Impairment 100 Intoxication 100 - 250 Severe Poisoning 250 - 400 Deep/possible fatal coma < 3.0 mg/dL [facility] Troponin I High Sensitivity 27 pg/mL 3.0-54.0 [facility] Comment on above: Please Note: New Ana t Units and Gender Specific Reference Ranges. For more information see Policy Stat Procedure [place] High Sensitivity Troponin (TNIH) and attachments. 27 pg/mL 3.0-54.0 [facility] Estimated Creatinine Clearance Calc 30.07 ml/min [facility] Estimated GFR (MDRD) Amer 49 mL/min >60 [facility] Comment on above: GFR Calc Estimated GFR (MDRD) Non-Af Amer 41 mL/min >60 [facility] Comment on above: Non- GFR Calc Platelets bldOrdered By: Hi Fox on 02-24-2023 Platelets (Bld) [#/Vol] 210 10*3/uL 150-450 [facility] Serum or plasma C reactive p rotein measurement (mass/volume)Ordered By: Kyler Fox on 02-24-2023 CRP [Mass/Vol] mg/L 0.0-3.0 [facility] Comment on above: C-Reactive Protein ( CRP) provides useful information for thediagnosis, therapy and monitoring of inflammatory processesand associated diseases. For the evaluation of Relative Riskfor Cardiovascular Disease, a High Sensitivity CRP (HSCRP)should be ordered. Serum or plasma albumin shannan urement (mass/volume)Ordered By: Kyler Fox on 02-24-2023 Albumin [Mass/Vol] 3.8 g/dL 3.2-5.0 [facility] Serum or plasma calcium shannan urement (mass/volume)Ordered By: Kyler Fox on 02-24-2023 Calcium [Mass/Vol] 8.7 mg/dL 8.5-10.1 [facility] Serum or plasma creatinine m easurement (mass/volume)Ordered By: Kyler Fox on 02-24-2023 Creatinine [Mass/Vol] 1.37 mg/dL 0.55-1.02 [facility] Comment on above: The validity of the calculated GFR & GFRAA in patients over 70 years has not been determined. Clinical correlation is essential. Serum or plasma urea nitroge n measurement (mass/volume)Ordered By: Kyler Fox on 02-24-2023 Urea nitrogen [Mass/Vol] 21 mg/dL 7-18 [facility] Thin prep Papanicolaou smear with manual screeningOrdered By: Kyler Fox on 02-24-2023 Thin prep Papanicolaou smear with manual screening 64 U/L 15-37 [facility] Comment on above: Moderate Hemolysis, Result may be falsely increased. Thin prep Papanicolaou smear with manual screening 9 5-15 [facility] Absolute lymphocyte countOrd ered By: Wilbur Wolff on 02-23-2023 Lymphocytes Auto (Unsp spec) [#/Vol] 0.37 10*3/uL 0.83-4.51 [facility] Basophil percentageOrdered B y: Wilbur Wolff on 02-23-2023 Basophil percentage 114 mg/dL 74-106 [facility] Basophil percentage 141 mmol/L 136-145 [facility] Basophil percentage 4.5 mmol/L 3.5-5.1 [facility] Basophil percentage 109 mmol/L 98-107 [facility] Basophils (Bld) [#/Vol] 3.3 10*3/uL 4.4-11.0 [facility] Basophils (Bld) [#/Vol] 2.8 10*3/uL 2.0-7.7 [facility] Basophils/100 WBC (Bld) 0.0 % 0-1 [facility] Basophils/100 WBC (Bld) 83.4 % 47-70 [facility] Chloride [Moles/Vol] 109 mmol/L 98-107 [facility] Eosinophils/100 WBC (Bld) 0.0 % 0-5 [facility] Glucose [Mass/Vol] 114 mg/dL 74-106 [facility] Comment on above: Fasting Glucose resu lt from 100 to 125 mg/dL suggests IMPAIRED HOMEOSTASIS per A.D.A. criteria. Neutrophils (Bld) [#/Vol] 2.8 10*3/uL 2.0-7.7 [facility] Neutrophils/100 WBC (Bld) 83.4 % 47-70 [facility] Potassium [Moles/Vol] 4.5 mmol/L 3.5-5.1 [facility] Sodium [Moles/Vol] 141 mmol/L 136-145 [facility] WBC (Bld) [#/Vol] 3.3 10*3/uL 4.4-11.0 [facility] Blood erythrocytes count (nu mber/volume)Ordered By: Wilbur Wolff on 02-23-2023 RBC (Bld) [#/Vol] 3.93 10*6/uL 4.2-5.4 [facility] Blood hemoglobin measurement (mass/volume)Ordered By: Wilbur Wolff on 02-23-2023 Hemoglobin (Bld) [Mass/Vol] 11.0 g/dL 12.0-15.0 [facility] Blood lymphocytes/100 leukoc ytesOrdered By: Wilbur Wolff on 02-23-2023 Lymphocytes/100 WBC (Bld) 11.2 % 19-41 [facility] Blood monocytes/100 leukocyt esOrdered By: Wilbur Wolff on 02-23-2023 Monocytes/100 WBC (Bld) 3.0 % 0-10 [facility] Blood platelet adequacy dete ction by light microscopyOrdered By: Wilbur Wolff on 02-23-2023 Platelets LM Ql (Bld) ADEQUATE ADEQ [facility] Blood platelet mean volumeOr dered By: Wilbur Wolff on 02-23-2023 Platelet mean volume (Bld) [Entitic vol] 9.0 fL 6.2-12.0 [facility] Clostridium difficile detect ion by polymerase chain reactionOrdered By: Wilbur Wolff on 02-23-2023 C. difficile DNA AMBROSE+probe Ql (Unsp spec) [facility] C. difficile DNA AMBROSE+probe Ql (Unsp spec) [facility] Determination of erythrocyte mean corpuscular volume (MCV)Ordered By: Wilbur Wolff on 02-23-2023 MCV (RBC) [Entitic vol] 90.1 fL 81-99 [facility] Hematocrit Auto (Bld) [Volum e fraction]Ordered By: Wilbur Wolff on 02-23-2023 Hematocrit (Bld) [Volume fraction] 35.4 % 37-47 [facility] Laboratory - Chemistry and C hemistry - challengeOrdered By: Wilbur Wolff on 02-23-2023 CO2 [Moles/Vol] 25.0 mmol/L 21.0-32.0 [facility] Urea nitrogen/Creatinine [Mass ratio] 26.2 mg/mg 10- [facility] Laboratory - Hematology and Cell countsOrdered By: Wilbur Wolff on 02-23-2023 Erythrocyte distribution width (RBC) [Entitic vol] 45.5 fL 35.1-43.9 [facility] Erythrocyte distribution width (RBC) [Ratio] 14.2 % 11.6-14.6 [facility] Immature granulocytes/100 WBC (Bld) 2.400 % 0.0-0.9 [facility] Comment on above: IG% - Immature Granu locytes (promyelocytes, myelocytes and metamyelocytes) > 1% indicates that a LEFT SHIFT is Present. MCH (RBC) [Entitic mass] 28.0 pg 27.0-32.0 [facility] Nucleated RBC/100 WBC (Bld) [Ratio] 0 % 0- [facility] MCHC Auto (RBC) [Mass/Vol]Or dered By: Wilbur Wolff on 02-23-2023 MCHC (RBC) [Mass/Vol] 31.1 g/dL 32-36 [facility] No Panel InformationOrdered By: Wilbur Wolff on 02-23-2023 Estimated Creatinine Clearance Calc 51.49 ml/min [facility] Estimated GFR (MDRD) Amer 92 mL/min >60 [facility] Comment on above: GFR Calc Estimated GFR (MDRD) Non-Af Amer 76 mL/min >60 [facility] Comment on above: Non- GFR Calc 28.0 pg 27.0-32.0 [facility] 14.2 % 11.6-14.6 [facility] 45.5 fl 35.1-43.9 [facility] 2.400 % 0.0-0.9 [facility] 0 % 0-5 [facility] 76 mL/min >60 [facility] 92 mL/min >60 [facility] 51.49 ml/min [facility] 26.2 RATIO 05-31 [facility] 25.0 mmol/L 21.0-32.0 [facility] Platelets bldOrdered By: Allyn Wolff on 02-23-2023 Platelets (Bld) [#/Vol] 195 10*3/uL 150-450 [facility] RBC morphologyOrdered By: Candie Wolff on 02-23-2023 RBC morphology finding Nom (Bld) NORM C+C NORMAL NORM C&C [facility] Review by pathologistOrdered By: Wilbur Wolff on 02-23-2023 Pathologist review Angel (Unsp spec) [Interp] Carmencita gilmore [facility] Pathologist review Angel (Unsp spec) [Interp] Reviewed [facility] Comment on above: Previous reported re sult: Carmencita gilmore Edited by: RGOOD on 02/26/23:1207 AMENDED REPORT 02/26/23 1207 PATH REV previously reported as: Carmencita gilmore Serum or plasma calcium shannan urement (mass/volume)Ordered By: Wilbur Wolff on 02-23-2023 Calcium [Mass/Vol] 7.9 mg/dL 8.5-10.1 [facility] Serum or plasma creatinine m easurement (mass/volume)Ordered By: Wilbur Wolff on 02-23-2023 Creatinine [Mass/Vol] 0.80 mg/dL 0.55-1.02 [facility] Comment on above: The validity of the calculated GFR & GFRAA in patients over 70 years has not been determined. Clinical correlation is essential. Serum or plasma urea nitroge n measurement (mass/volume)Ordered By: Wilbur Wolff on 02-23-2023 Urea nitrogen [Mass/Vol] 21 mg/dL 02-26 [facility] Stool Clostridium difficile detectionOrdered By: Wilbur Wolff on 02-23-2023 C. difficile Ql (Stl) [facility] C. difficile Ql (Stl) [facility] Thin prep Papanicolaou smear with manual screeningOrdered By: Wilbur Wolff on 02-23-2023 Thin prep Papanicolaou smear with manual screening 12-24 [facility] Absolute lymphocyte countOrd ered By: Kyler Fox on 02-22-2023 Lymphocytes Auto (Unsp spec) [#/Vol] 1.14 10*3/uL 0.83-4.51 [facility] Bacteria identified Cx Nom ( U)Ordered By: Wilbur Wolff on 02-22-2023 Culture, urine Positive [facility] Culture, urine Positive [facility] Basophil percentageOrdered B y: Kyler Fox on 02-22-2023 Basophil percentage 0-5 SEEN /hpf 0-5 [facility] Basophil percentage 6.3 g/dL 6.4-8.2 [facility] Basophil percentage 2.20 mg/dL 0.20-1.00 [facility] Basophils/100 WBC (Bld) 0.3 % 0-1 [facility] Bilirubin [Mass/Vol] 2.20 mg/dL 0.20-1.00 [facility] Comment on above: For patients on eltr ombopag therapy, use of Dimension [place] TBIL is not recommended. Chloride [Moles/Vol] 104 mmol/L 98-107 [facility] Eosinophils/100 WBC (Bld) 0.5 % 0-5 [facility] Glucose [Mass/Vol] 111 mg/dL 74-106 [facility] Comment on above: Fasting Glucose resu lt from 100 to 125 mg/dL suggests IMPAIRED HOMEOSTASIS per A.D.A. criteria. Neutrophils (Bld) [#/Vol] 4.1 10*3/uL 2.0-7.7 [facility] Neutrophils/100 WBC (Bld) 67.1 % 47-70 [facility] Potassium [Moles/Vol] 3.1 mmol/L 3.5-5.1 [facility] Protein [Mass/Vol] 6.3 g/dL 6.4-8.2 [facility] Sodium [Moles/Vol] 138 mmol/L 136-145 [facility] WBC (Bld) [#/Vol] 6.2 10*3/uL 4.4-11.0 [facility] Basophil percentageOrdered B y: Wilbur Wolff on 02-22-2023 Basophil percentage 1.9 mg/dL 2.5-4.9 [facility] Bilirubin Test strip Ql (U)O rdered By: Kyler Fox on 02-22-2023 Bilirubin Ql (U) Negative Negative [facility] Blood erythrocytes count (nu mber/volume)Ordered By: Kyler Fox on 02-22-2023 RBC (Bld) [#/Vol] 4.36 10*6/uL 4.2-5.4 [facility] Blood hemoglobin measurement (mass/volume)Ordered By: Kyler Fox on 02-22-2023 Hemoglobin (Bld) [Mass/Vol] 12.3 g/dL 12.0-15.0 [facility] Blood lymphocytes/100 leukoc ytesOrdered By: Kyler Fox on 02-22-2023 Lymphocytes/100 WBC (Bld) 18.5 % 19-41 [facility] Blood monocytes/100 leukocyt esOrdered By: Kyler Fox on 02-22-2023 Monocytes/100 WBC (Bld) 12.5 % 0-10 [facility] Blood platelet mean volumeOr dered By: Kyler Fox on 02-22-2023 Platelet mean volume (Bld) [Entitic vol] 9.0 fL 6.2-12.0 [facility] Culture, urineOrdered By: Candie Wolff on 02-22-2023 Bacteria identified Cx Nom (U) Positive [facility] Determination of erythrocyte mean corpuscular volume (MCV)Ordered By: Kyler Fox on 02-22-2023 MCV (RBC) [Entitic vol] 87.8 fL 81-99 [facility] Hematocrit Auto (Bld) [Volum e fraction]Ordered By: Kyler Fox on 02-22-2023 Hematocrit (Bld) [Volume fraction] 38.3 % 37-47 [facility] Ketones Test strip Ql (U)Ord ered By: Kyler Fox on 02-22-2023 Ketones Ql (U) 5 mg/dl Negative [facility] Laboratory - Chemistry and C hemistry - challengeOrdered By: Kyler Fox on 02-22-2023 ALP [Catalytic activity/Vol] 64 U/L 45-117 [facility] ALT [Catalytic activity/Vol] 50 U/L 13-56 [facility] CO2 [Moles/Vol] 25.0 mmol/L 21.0-32.0 [facility] Globulin (S) [Mass/Vol] 2.8 g/dL 2.2-4.2 [facility] Lipase [Catalytic activity/Vol] 172 U/L 13-75 [facility] Comment on above: Please note:LIPASE r evised reference range effective 22. New Lipase methodology. Expected to produce lower values than the previous assay method. NEW Reference Range: 13 - 75 U/L Urea nitrogen/Creatinine [Mass ratio] 23.0 mg/mg 10-20 [facility] Laboratory - Chemistry and C hemistry - challengeOrdered By: Wilbur Wolff on 02-22-2023 Magnesium [Mass/Vol] 1.9 mg/dL 1.6-2.6 [facility] Comment on above: Slight Hemolysis, Re sult may be falsely increased. Laboratory - Hematology and Cell countsOrdered By: Kyler Fox on 02-22-2023 Erythrocyte distribution width (RBC) [Entitic vol] 44.0 fL 35.1-43.9 [facility] Erythrocyte distribution width (RBC) [Ratio] 14.3 % 11.6-14.6 [facility] Immature granulocytes/100 WBC (Bld) 1.100 % 0.0-0.9 [facility] Comment on above: IG% - Immature Granu locytes (promyelocytes, myelocytes and metamyelocytes) > 1% indicates that a LEFT SHIFT is Present. MCH (RBC) [Entitic mass] 28.2 pg 27.0-32.0 [facility] Nucleated RBC/100 WBC (Bld) [Ratio] 0 % 0-5 [facility] MCHC Auto (RBC) [Mass/Vol]Or dered By: Kyler Fox on 02-22-2023 MCHC (RBC) [Mass/Vol] 32.1 g/dL 32-36 [facility] Mucus LM Ql (Urine sed)Order ed By: Kyler Fox on 02-22-2023 Mucus Ql (Urine sed) 0 SEEN /hpf [facility] Nitrite Test strip Ql (U)Ord ered By: Kyler Fox on 02-22-2023 Nitrite Ql (U) Negative Negative [facility] No Panel InformationOrdered By: Kyler Fox on 02-22-2023 Estimated Creatinine Clearance Calc 33.77 ml/min [facility] Estimated GFR (MDRD) Amer 57 mL/min >60 [facility] Comment on above: GFR Calc Estimated GFR (MDRD) Non-Af Amer 47 mL/min >60 [facility] Comment on above: Non- GFR Calc 2.8 g/dL 2.2-4.2 [facility] 172 U/L 13-75 [facility] 64 U/L 45-117 [facility] 50 U/L 13-56 [facility] No Panel InformationOrdered By: Wilbur Wolff on 02-22-2023 1.9 mg/dL 1.6-2.6 [facility] Platelets bldOrdered By: Hi Fox on 02-22-2023 Platelets (Bld) [#/Vol] 219 10*3/uL 150-450 [facility] Protein Test strip Ql (U)Ord ered By: Kyler Fox on 02-22-2023 Protein Ql (U) 15 mg/dl Negative [facility] Serum or plasma albumin shannan urement (mass/volume)Ordered By: Kyler Fox on 02-22-2023 Albumin [Mass/Vol] 3.5 g/dL 3.2-5.0 [facility] Serum or plasma albumin/glob ulin mass ratioOrdered By: Kyler Fox on 02-22-2023 Albumin/Globulin [Mass ratio] 1.2 {ratio} 0.9-2.4 [facility] Serum or plasma calcium shannan urement (mass/volume)Ordered By: Kyler Fox on 02-22-2023 Calcium [Mass/Vol] 8.7 mg/dL 8.5-10.1 [facility] Serum or plasma creatinine m easurement (mass/volume)Ordered By: Kyler Fox on 02-22-2023 Creatinine [Mass/Vol] 1.22 mg/dL 0.55-1.02 [facility] Comment on above: The validity of the calculated GFR & GFRAA in patients over 70 years has not been determined. Clinical correlation is essential. Serum or plasma urea nitroge n measurement (mass/volume)Ordered By: Kyler Fox on 02-22-2023 Urea nitrogen [Mass/Vol] 28 mg/dL 7-18 [facility] Squamous epithelial cells de tection in urine sediment by light microscopyOrdered By: Kyler Fox on 02-22-2023 Epithelial cells.squamous LM Ql (Urine sed) 0 SEEN /hpf 5-10 [facility] Thin prep Papanicolaou smear with manual screeningOrdered By: Kyler Fox on 02-22-2023 Thin prep Papanicolaou smear with manual screening 37 U/L 15-37 [facility] Thin prep Papanicolaou smear with manual screening 9 5-15 [facility] Urine blood detectionOrdered By: Kyler Fox on 02-22-2023 RBC Ql (U) Negative Negative [facility] RBC Ql (U) 0 SEEN /hpf 0-5 [facility] Urine clarityOrdered By: Hi Fox on 02-22-2023 Clarity (U) Clear Clear [facility] Urine color determinationOrd ered By: Kyler Fox on 02-22-2023 Color (U) Yellow Yellow [facility] Urine glucose detectionOrder ed By: Kyler Fox on 02-22-2023 Glucose Ql (U) Normal mg/dl Normal [facility] Urine leukocyte esterase det ection by dipstickOrdered By: Kyler Fox on 02-22-2023 Leukocyte esterase Test strip Ql (U) 25 /ul Negative [facility] Urine pHOrdered By: Kyler galeas on 02-22-2023 pH (U) 5.0 [pH] 5.0 - 8.0 [facility] Urine sediment bacteria coun t by microscopy (number/high power field)Ordered By: Kyler Fox on 02-22-2023 Bacteria LM.HPF (Urine sed) [#/Area] 0 /[HPF] None Seen [facility] Urine specific gravity measu rementOrdered By: Kyler Fox on 02-22-2023 Specific gravity (U) [Rel density] 1.020 1.002-1.03 0 [facility] Urobilinogen Auto test strip Ql (U)Ordered By: Kyler Fox on 02-22-2023 Urobilinogen Ql (U) Normal mg/dl Normal [facility] Basophil percentageOrdered B y: Mauro Krishnamurthy on 02-20-2023 Basophil percentage 10-25 SEEN /hpf 0-5 [facility] Bilirubin Test strip Ql (U)O rdered By: Mauro Krishnamurthy on 02-20-2023 Bilirubin Ql (U) Negative Negative [facility] Culture, urineOrdered By: Tyler Krishnamurthy on 02-20-2023 Bacteria identified Cx Nom (U) Culture exhibits no growth. [facility] Bacteria identified Cx Nom (U) Culture exhibits no growth. [facility] Ketones Test strip Ql (U)Ord ered By: Mauro Krishnamurthy on 02-20-2023 Ketones Ql (U) 15 mg/dl Negative [facility] Mucus LM Ql (Urine sed)Order ed By: Mauro Krishnamurthy on 02-20-2023 Mucus Ql (Urine sed) 0 SEEN /hpf [facility] Nitrite Test strip Ql (U)Ord ered By: Mauro Krishnamurthy on 02-20-2023 Nitrite Ql (U) Negative Negative [facility] Protein Test strip Ql (U)Ord ered By: Mauro Krishnamurthy on 02-20-2023 Protein Ql (U) 15 mg/dl Negative [facility] Squamous epithelial cells de tection in urine sediment by light microscopyOrdered By: Mauro Krishnamurthy on 02-20-2023 Epithelial cells.squamous LM Ql (Urine sed) 0-5 SEEN /hpf 5-10 [facility] Urine blood detectionOrdered By: Mauro Krishnamurthy on 02-20-2023 RBC Ql (U) Negative Negative [facility] RBC Ql (U) 0 SEEN /hpf 0-5 [facility] Urine clarityOrdered By: Adan Krishnamurthy on 02-20-2023 Clarity (U) Sl. Cloudy Clear [facility] Urine color determinationOrd ered By: Mauro Krishnamurthy on 02-20-2023 Color (U) Yellow Yellow [facility] Urine glucose detectionOrder ed By: Mauro Krishnamurthy on 02-20-2023 Glucose Ql (U) Normal mg/dl Normal [facility] Urine leukocyte esterase det ection by dipstickOrdered By: Mauro Krishnamurthy on 02-20-2023 Leukocyte esterase Test strip Ql (U) 100 /ul Negative [facility] Urine pHOrdered By: Mauro Krishnamurthy on 02-20-2023 pH (U) 5.0 [pH] 5.0 - 8.0 [facility] Urine sediment bacteria coun t by microscopy (number/high power field)Ordered By: Mauro Krishnamurthy on 02-20-2023 Bacteria LM.HPF (Urine sed) [#/Area] 1 /[HPF] None Seen [facility] Urine specific gravity measu rementOrdered By: Mauro Krishnamurthy on 02-20-2023 Specific gravity (U) [Rel density] 1.025 1.002-1.03 0 [facility] Urobilinogen Auto test strip Ql (U)Ordered By: Mauro Krishnamurthy on 02-20-2023 Urobilinogen Ql (U) Normal mg/dl Normal [facility] CBC W Auto Differential pane l (Bld)on 02-19-2023 Basophils (Bld) [#/Vol] <0.11 k/uL [facility] Basophils/100 WBC (Bld) 0.2 % [facility] Differential cell count method Nom (Bld) Auto [facility] Eosinophils (Bld) [#/Vol] <0.46 k/uL [facility] Eosinophils/100 WBC (Bld) 0.0 % [facility] Erythrocyte distribution width (RBC) [Ratio] 14.0 % 11.5 - 15.0 % [facility] Hematocrit (Bld) [Volume fraction] 40.7 % 36.0 - 46.0 % [facility] Hemoglobin (Bld) [Mass/Vol] 12.4 g/dL 11.5 - 15.5 g/dL [facility] Immature granulocytes (Bld) [#/Vol] 0.13 10*3/uL High <0.10 k/uL [facility] Immature granulocytes/100 WBC (Bld) 1.0 % [facility] Lymphocytes (Bld) [#/Vol] 0.52 10*3/uL Low 1.00 - 4.00 k/uL [facility] Lymphocytes/100 WBC (Bld) 4.1 % [facility] MCH (RBC) [Entitic mass] 27.8 pg 26. 0 - 34.0 pg [facility] MCHC (RBC) [Mass/Vol] 30.5 g/dL 30.5 - 36.0 g/dL [facility] MCV (RBC) [Entitic vol] 91.3 fL 80.0 - 100.0 fL [facility] Monocytes (Bld) [#/Vol] 0.30 10*3/uL <0.87 k/uL [facility] Monocytes/100 WBC (Bld) 2.4 % [facility] Neutrophils (Bld) [#/Vol] 11.58 10*3/uL High 1.45 - 7.50 k/uL [facility] Neutrophils/100 WBC (Bld) 92.3 % [facility] Nucleated RBC (Bld) [#/Vol] <0.01 k/uL [facility] Nucleated RBC/100 WBC (Bld) [Ratio] 0.0 /100 WBC [facility] Platelet mean volume (Bld) [Entitic vol] 9.7 fL 9.0 - 12.7 fL [facility] Platelets (Bld) [#/Vol] 225 10*3/uL 150 - 400 k/uL [facility] RBC (Bld) [#/Vol] 4.46 10*6/uL 3.90 - 5.20 m/uL [facility] WBC (Bld) [#/Vol] 12.55 10*3/uL High 3.70 - 11.00 k/uL [facility] Basophil percentageOrdered B y: Samra Agee on 02-11-2023 Basophil percentage 94 mg/dL 74-106 [facility] Basophil percentage 143 mmol/L 136-145 [facility] Basophil percentage 3.0 mmol/L 3.5-5.1 [facility] Basophil percentage 110 mmol/L 98-107 [facility] Chloride [Moles/Vol] 110 mmol/L 98-107 [facility] Glucose [Mass/Vol] 94 mg/dL 74-106 [facility] Potassium [Moles/Vol] 3.0 mmol/L 3.5-5.1 [facility] Sodium [Moles/Vol] 143 mmol/L 136-145 [facility] Laboratory - Chemistry and C hemistry - challengeOrdered By: Samra Agee on 02-11-2023 CO2 [Moles/Vol] 28.0 mmol/L 21.0-32.0 [facility] Urea nitrogen/Creatinine [Mass ratio] 7.1 mg/mg 10- [facility] No Panel InformationOrdered By: Samra Agee on 02-11-2023 Estimated Creatinine Clearance Calc 41.19 ml/min [facility] Estimated GFR (MDRD) Amer 107 mL/min >60 [facility] Comment on above: GFR Calc Estimated GFR (MDRD) Non-Af Amer 88 mL/min >60 [facility] Comment on above: Non- GFR Calc 88 mL/min >60 [facility] 107 mL/min >60 [facility] 41.19 ml/min [facility] 7.1 RATIO 10-20 [facility] 28.0 mmol/L 21.0-32.0 [facility] Serum or plasma calcium shannan urement (mass/volume)Ordered By: Samra Agee on 02-11-2023 Calcium [Mass/Vol] 7.8 mg/dL 8.5-10.1 [facility] Serum or plasma creatinine m easurement (mass/volume)Ordered By: Samra Agee on 02-11-2023 Creatinine [Mass/Vol] 0.70 mg/dL 0.55-1.02 [facility] Comment on above: The validity of the calculated GFR & GFRAA in patients over 70 years has not been determined. Clinical correlation is essential. Serum or plasma urea nitroge n measurement (mass/volume)Ordered By: Samra Agee on 02-11-2023 Urea nitrogen [Mass/Vol] 5 mg/dL 7-18 [facility] Thin prep Papanicolaou smear with manual screeningOrdered By: Samra Agee on 02-11-2023 Thin prep Papanicolaou smear with manual screening 5 5-15 [facility] Absolute lymphocyte countOrd ered By: Samra Agee on 02-10-2023 Lymphocytes Auto (Unsp spec) [#/Vol] 1.58 10*3/uL 0.83-4.51 [facility] Basophil percentageOrdered B y: Samra Agee on 02-10-2023 Basophil percentage 4.9 g/dL 6.4-8.2 [facility] Basophil percentage 0.60 mg/dL 0.20-1.00 [facility] Basophils (Bld) [#/Vol] 9.9 10*3/uL 4.4-11.0 [facility] Basophils (Bld) [#/Vol] 7.3 10*3/uL 2.0-7.7 [facility] Basophils/100 WBC (Bld) 0.3 % 0-1 [facility] Basophils/100 WBC (Bld) 73.5 % 47-70 [facility] Basophils/100 WBC (Bld) 0.4 % 0-5 [facility] Bilirubin [Mass/Vol] 0.60 mg/dL 0.20-1.00 [facility] Comment on above: For patients on eltr ombopag therapy, use of Dimension [place] TBIL is not recommended. Eosinophils/100 WBC (Bld) 0.4 % 0-5 [facility] Neutrophils (Bld) [#/Vol] 7.3 10*3/uL 2.0-7.7 [facility] Neutrophils/100 WBC (Bld) 73.5 % 47-70 [facility] Protein [Mass/Vol] 4.9 g/dL 6.4-8.2 [facility] WBC (Bld) [#/Vol] 9.9 10*3/uL 4.4-11.0 [facility] Blood erythrocytes count (nu mber/volume)Ordered By: Samra Agee on 02-10-2023 RBC (Bld) [#/Vol] 3.50 10*6/uL 4.2-5.4 [facility] Blood hemoglobin measurement (mass/volume)Ordered By: Samra Agee on 02-10-2023 Hemoglobin (Bld) [Mass/Vol] 9.8 g/dL 12.0-15.0 [facility] Blood lymphocytes/100 leukoc ytesOrdered By: Samra Agee on 02-10-2023 Lymphocytes/100 WBC (Bld) 16.0 % 19-41 [facility] Blood monocytes/100 leukocyt esOrdered By: Samra Agee on 02-10-2023 Monocytes/100 WBC (Bld) 7.7 % 0-10 [facility] Blood platelet mean volumeOr dered By: Samra Agee on 02-10-2023 Platelet mean volume (Bld) [Entitic vol] 9.0 fL 6.2-12.0 [facility] Determination of erythrocyte mean corpuscular volume (MCV)Ordered By: Samra Agee on 02-10-2023 MCV (RBC) [Entitic vol] 88.6 fL 81-99 [facility] Hematocrit Auto (Bld) [Volum e fraction]Ordered By: Samra Agee on 02-10-2023 Hematocrit (Bld) [Volume fraction] 31.0 % 37-47 [facility] Laboratory - Chemistry and C hemistry - challengeOrdered By: Samra Agee on 02-10-2023 ALP [Catalytic activity/Vol] 46 U/L 45-117 [facility] ALT [Catalytic activity/Vol] 31 U/L 13-56 [facility] Globulin (S) [Mass/Vol] 2.3 g/dL 2.2-4.2 [facility] Laboratory - Hematology and Cell countsOrdered By: Samra Agee on 02-10-2023 Erythrocyte distribution width (RBC) [Entitic vol] 41.1 fL 35.1-43.9 [facility] Erythrocyte distribution width (RBC) [Ratio] 13.2 % 11.6-14.6 [facility] Immature granulocytes/100 WBC (Bld) 2.100 % 0.0-0.9 [facility] Comment on above: IG% - Immature Granu locytes (promyelocytes, myelocytes and metamyelocytes) > 1% indicates that a LEFT SHIFT is Present. MCH (RBC) [Entitic mass] 28.0 pg 27.0-32.0 [facility] Nucleated RBC/100 WBC (Bld) [Ratio] 0 % 0-5 [facility] MCHC Auto (RBC) [Mass/Vol]Or dered By: Samra Agee on 02-10-2023 MCHC (RBC) [Mass/Vol] 31.6 g/dL 32-36 [facility] No Panel InformationOrdered By: Samra Agee on 02-10-2023 28.0 pg 27.0-32.0 [facility] 13.2 % 11.6-14.6 [facility] 41.1 fl 35.1-43.9 [facility] 2.100 % 0.0-0.9 [facility] 0 % 0-5 [facility] 2.3 g/dL 2.2-4.2 [facility] 46 U/L 45-117 [facility] 31 U/L 13-56 [facility] Platelets bldOrdered By: Tamia Agee on 02-10-2023 Platelets (Bld) [#/Vol] 201 10*3/uL 150-450 [facility] Serum or plasma albumin shannan urement (mass/volume)Ordered By: Samra Agee on 02-10-2023 Albumin [Mass/Vol] 2.6 g/dL 3.2-5.0 [facility] Serum or plasma albumin/glob ulin mass ratioOrdered By: Samra Agee on 02-10-2023 Albumin/Globulin [Mass ratio] 1.1 {ratio} 0.9-2.4 [facility] Thin prep Papanicolaou smear with manual screeningOrdered By: Samra Agee on 02-10-2023 Thin prep Papanicolaou smear with manual screening 13 U/L 15-37 [facility] Albumin Elph [Mass/Vol]Order ed By: Tony Shine on 02-05-2023 Albumin [Mass/Vol] 3.1 g/dL 2.9-4.4 [facility] Basophil percentageOrdered B y: Tony Shine on 02-05-2023 Basophil percentage < 0.2 AI 0.0-0.9 [facility] Interpretation of serum or p lasma protein pattern by immunofixation (narrative resultOrdered By: Tony Shine on 02-05-2023 Protein Fractions Immunofixation Angel [Interp] See comment [facility] Comment on above: NOT OBSERVED No Panel InformationOrdered By: Tony Shine on 02-05-2023 Addendum Document Comment . [facility] Comment on above: Protein electrophore sis scan will follow via computer,mail, or jewelry maker delivery. Centrome[employer] B Antibody <0.2 AI 0.0-0.9 [facility] Immunoglobulin G4 9 mg/dL [facility] Comment on above: Performed at: [place] [id number] Director: Chato Nielsen PhD, Phone: [phone] [employer] Antibody <0.2 AI 0.0-0.9 [facility] 9 mg/dL [facility] <0.2 AI 0.0-0.9 [facility] Serum DNA double strand anti body assay (units/volume)Ordered By: Tony Shine on 02-05-2023 DNA double strand Ab Qn (S) [IU]/mL 0-9 [facility] Comment on above: Negative <5 Equivoca l 5 - 9 Positive >9 Serum IgG subclass 1 measure ment (mass/volume)Ordered By: Tony Shine on 02-05-2023 IgG subclass 1 (S) [Mass/Vol] 161 mg/dL 248-810 [facility] Serum IgG subclass 2 measure ment (mass/volume)Ordered By: Tony Shine on 02-05-2023 IgG subclass 2 (S) [Mass/Vol] 144 mg/dL 130-555 [facility] Serum IgG subclass 3 measure ment (mass/volume)Ordered By: Tony Shine on 02-05-2023 IgG subclass 3 (S) [Mass/Vol] 18 mg/dL 15-102 [facility] Serum Fallon-1 antibody assay (u nits/volume)Ordered By: Tony Shine on 02-05-2023 Fallon-1 extractable nuclear Ab Qn (S) <0.2 AI 0.0-0.9 [facility] Serum Scl-70 extractable nuc lear antibody assay (units/volume)Ordered By: Tony Shine on 02-05-2023 SCL-70 extractable nuclear Ab Qn (S) <0.2 AI 0.0-0.9 [facility] Serum Saenz extractable nucl ear antibody detectionOrdered By: Tony Shine on 02-05-2023 Saenz extractable nuclear Ab Ql (S) <0.2 AI 0.0-0.9 [facility] Serum [id number] measu rement by electrophoresisOrdered By: Tony Shine on 02-05-2023 Alpha 1 globulin Elph [Mass/Vol] 0.2 g/dL 0.0-0.4 [facility] Alpha 1 globulin Elph [Mass/Vol] 0.6 g/dL 0.4-1.0 [facility] Serum or plasma IgA measurem ent (mass/volume)Ordered By: Tony Shine on 02-05-2023 IgA [Mass/Vol] 85 mg/dL 87-352 [facility] Serum or plasma IgG measurem ent (mass/volume)Ordered By: Tony Shine on 02-05-2023 IgG [Mass/Vol] 346 mg/dL [phone] [facility] IgG [Mass/Vol] Not Reportable [facility] Serum or plasma IgM measurem ent (mass/volume)Ordered By: Tony Shine on 02-05-2023 IgM [Mass/Vol] 70 mg/dL 26-217 [facility] Serum or plasma beta globuli n measurement by electrophoresis (mass/volume)Ordered By: Tony Shine on 02-05-2023 Beta globulin Elph [Mass/Vol] 0.9 g/dL 0.7-1.3 [facility] Serum or plasma gamma globul in measurement by electrophoresis (mass/volume)Ordered By: Tony Shine on 02-05-2023 Gamma globulin Elph [Mass/Vol] 0.3 g/dL 0.4-1.8 [facility] Serum or plasma immunoelectr ophoresis interpretation (nominal result)Ordered By: Tony Shine on 02-05-2023 Interpretation IEP [Interp] Comment . [facility] Comment on above: No monoclonality det ected. Thin prep Papanicolaou smear with manual screeningOrdered By: Tony Shine on 02-05-2023 Thin prep Papanicolaou smear with manual screening 1.6 0.7-1.7 [facility] Total protein bloodOrdered B y: Tony Shine on 02-05-2023 Protein [Mass/Vol] 5.1 g/dL 6.0-8.5 [facility] Absolute lymphocyte countOrd ered By: Navneet Anthony on 02-04-2023 Lymphocytes Auto (Unsp spec) [#/Vol] 1.72 10*3/uL 0.83-4.51 [facility] Bacteria identified Cx Nom ( U)Ordered By: Navneet Anthony on 02-04-2023 Culture, urine Escherichia coli [facility] Basophil percentageOrdered B y: Navneet Anthony on 02-04-2023 Basophil percentage 1.7 mmol/L 0.4-2.0 [facility] Lactate [Moles/Vol] 1.7 mmol/L 0.4-2.0 [facility] Basophil percentage 10-25 SEEN /hpf 0-5 [facility] Basophils/100 WBC (Bld) 0.3 % 0-1 [facility] Bilirubin [Mass/Vol] 1.50 mg/dL 0.20-1.00 [facility] Comment on above: For patients on eltr ombopag therapy, use of Dimension [place] TBIL is not recommended. Chloride [Moles/Vol] 110 mmol/L 98-107 [facility] Eosinophils/100 WBC (Bld) 0.0 % 0-5 [facility] Glucose [Mass/Vol] 127 mg/dL 74-106 [facility] Comment on above: Fasting Glucose resu lt greater than or equal to 126 mg/dL suggests DIABETES MELLITUS per A.D.A. criteria. Lactate [Moles/Vol] 3.5 mmol/L 0.4-2.0 [facility] Comment on above: Critical Result(s) C alled at: 06:24:35 02/04/2023 by: Carolyn Lundberg. Results read back by same. Neutrophils (Bld) [#/Vol] 25.1 10*3/uL 2.0-7.7 [facility] Neutrophils/100 WBC (Bld) 84.0 % 47-70 [facility] Potassium [Moles/Vol] 3.6 mmol/L 3.5-5.1 [facility] Protein [Mass/Vol] 6.9 g/dL 6.4-8.2 [facility] Sodium [Moles/Vol] 142 mmol/L 136-145 [facility] WBC (Bld) [#/Vol] 29.9 10*3/uL 4.4-11.0 [facility] Basophil percentageOrdered B y: Tonytawana Shine on 02-04-2023 Basophil percentage 281 mg/dL <200 [facility] Basophil percentage 181 mg/dL <199 [facility] Cholesterol [Mass/Vol] 281 mg/dL <200 [facility] Comment on above: <200 mg/dL Desirable 200-240 mg/dL Borderline >240 mg/dL High Risk Triglyceride [Mass/Vol] 181 mg/dL <199 [facility] Comment on above: The drugs N-Acetylcy steine and Metamizole may falsely depress this assay.Serum Triglycerides Reference Interval Normal <150 mg/dL Borderline high 150 - 199 mg/dL High 200 - 499 mg/dL Very High > or = 500 mg/dL Bilirubin Test strip Ql (U)O rdered By: Navneet Anthony on 02-04-2023 Bilirubin Ql (U) 1 mg/dL Negative [facility] Comment on above: COLOR OF URINE MAY A FFECT DIPSTICK RESULTS. Blood erythrocytes count (nu mber/volume)Ordered By: Navneet Anthony on 02-04-2023 RBC (Bld) [#/Vol] 4.70 10*6/uL 4.2-5.4 [facility] Blood hemoglobin measurement (mass/volume)Ordered By: Navneet Anthony on 02-04-2023 Hemoglobin (Bld) [Mass/Vol] 13.1 g/dL 12.0-15.0 [facility] Blood lymphocytes/100 leukoc ytesOrdered By: Navneet Anthony on 02-04-2023 Lymphocytes/100 WBC (Bld) 5.8 % 19-41 [facility] Blood monocytes/100 leukocyt esOrdered By: Navneet Anthony on 02-04-2023 Monocytes/100 WBC (Bld) 8.3 % 0-10 [facility] Blood platelet mean volumeOr dered By: Navneet Anthony on 02-04-2023 Platelet mean volume (Bld) [Entitic vol] 9.0 fL 6.2-12.0 [facility] Culture, urineOrdered By: Yue Anthony on 02-04-2023 Bacteria identified Cx Nom (U) Escherichia coli [facility] Determination of erythrocyte mean corpuscular volume (MCV)Ordered By: Navneet Anthony on 02-04-2023 MCV (RBC) [Entitic vol] 86.0 fL 81-99 [facility] Direct bilirubinOrdered By: Navneet Anthony on 02-04-2023 Bilirubin.direct [Mass/Vol] 0.28 mg/dL 0.00-0.30 [facility] Erythrocyte sedimentation ra teOrdered By: Navneet Anthony on 02-04-2023 ESR (Bld) [Velocity] 24 mm/h 0-30 [facility] Hematocrit Auto (Bld) [Volum e fraction]Ordered By: Navneet Anthony on 02-04-2023 Hematocrit (Bld) [Volume fraction] 40.4 % 37-47 [facility] Hyaline casts LM.LPF (Urine sed) [#/Area]Ordered By: Navneet Anthony on 02-04-2023 Hyaline casts (Urine sed) [#/Area] 10 /[LPF] 0-5 [facility] Ketones Test strip Ql (U)Ord ered By: Navneet Anthony on 02-04-2023 Ketones Ql (U) 5 mg/dl Negative [facility] Laboratory - Chemistry and C hemistry - challengeOrdered By: Navneet Anthony on 02-04-2023 ALP [Catalytic activity/Vol] 71 U/L 45-117 [facility] ALT [Catalytic activity/Vol] 30 U/L 13-56 [facility] CO2 [Moles/Vol] 19.0 mmol/L 21.0-32.0 [facility] Globulin (S) [Mass/Vol] 3.2 g/dL 2.2-4.2 [facility] Lipase [Catalytic activity/Vol] 565 U/L 13-75 [facility] Comment on above: Please note:LIPASE r evised reference range effective 22. New Lipase methodology. Expected to produce lower values than the previous assay method. NEW Reference Range: 13 - 75 U/L Urea nitrogen/Creatinine [Mass ratio] 21.3 mg/mg 10-20 [facility] Laboratory - Hematology and Cell countsOrdered By: Navneet Anthony on 02-04-2023 Erythrocyte distribution width (RBC) [Entitic vol] 38.8 fL 35.1-43.9 [facility] Erythrocyte distribution width (RBC) [Ratio] 12.5 % 11.6-14.6 [facility] Immature granulocytes/100 WBC (Bld) 1.600 % 0.0-0.9 [facility] Comment on above: IG% - Immature Granu locytes (promyelocytes, myelocytes and metamyelocytes) > 1% indicates that a LEFT SHIFT is Present. MCH (RBC) [Entitic mass] 27.9 pg 27.0-32.0 [facility] Nucleated RBC/100 WBC (Bld) [Ratio] 0 % 0-5 [facility] MCHC Auto (RBC) [Mass/Vol]Or dered By: Navneet Anthony on 02-04-2023 MCHC (RBC) [Mass/Vol] 32.4 g/dL 32-36 [facility] Mucus LM Ql (Urine sed)Order ed By: Navneet Anthony on 02-04-2023 Mucus Ql (Urine sed) 0 SEEN /hpf [facility] Nitrite Test strip Ql (U)Ord ered By: Navneet Anthony on 02-04-2023 Nitrite Ql (U) Positive Negative [facility] No Panel InformationOrdered By: Navneet Anthony on 02-04-2023 Estimated Creatinine Clearance Calc 21.91 ml/min [facility] Estimated GFR (MDRD) Amer 34 mL/min >60 [facility] Comment on above: GFR Calc Estimated GFR (MDRD) Non-Af Amer 28 mL/min >60 [facility] Comment on above: Non- GFR Calc 565 U/L 13-75 [facility] Platelets bldOrdered By: Ethan Anthony on 02-04-2023 Platelets (Bld) [#/Vol] 384 10*3/uL 150-450 [facility] Protein Test strip Ql (U)Ord ered By: Navneet Anthony on 02-04-2023 Protein Ql (U) 30 mg/dl Negative [facility] Review by pathologistOrdered By: Navneet Anthony on 02-04-2023 Pathologist review Angel (Unsp spec) [Interp] Carmencita gilmore [facility] Pathologist review Angel (Unsp spec) [Interp] Reviewed [facility] Comment on above: Previous reported re sult: Carmencita gilmore Edited by: RGOOD on 02/04/23:1303Neutrophilic leukocytosis with left shift. Clinical correlation necessary.Mo Bustamante M.D. 02/04/23 AMENDED REPORT 02/04/23 1303 PATH REV previously reported as: Carmencita gilmore Serum or plasma C reactive p rotein measurement (mass/volume)Ordered By: Navneet Anthony on 02-04-2023 CRP [Mass/Vol] 9.46 mg/L 0.0-3.0 [facility] Comment on above: C-Reactive Protein ( CRP) provides useful information for thediagnosis, therapy and monitoring of inflammatory processesand associated diseases. For the evaluation of Relative Riskfor Cardiovascular Disease, a High Sensitivity CRP (HSCRP)should be ordered. Serum or plasma albumin shannan urement (mass/volume)Ordered By: Navneet Anthony on 02-04-2023 Albumin [Mass/Vol] 3.7 g/dL 3.2-5.0 [facility] Serum or plasma calcium shannan urement (mass/volume)Ordered By: Navneet Anthony on 02-04-2023 Calcium [Mass/Vol] 9.1 mg/dL 8.5-10.1 [facility] Serum or plasma cholesterol in HDL measurement (mass/volume)Ordered By: Tony Sihne on 02-04-2023 Cholesterol in HDL [Mass/Vol] 75 mg/dL >40 [facility] Comment on above: The drugs N-Acetylcy steine and Metamizole may falsely depress this assay. Reference Range HDL <40 mg/dL Low HDL Cholesterol HDL >or= 60 mg/dL High HDL Cholesterol Serum or plasma cholesterol in VLDL measurement (mass/volume)Ordered By: Tony Shine on 02-04-2023 Cholesterol in VLDL [Mass/Vol] 36 mg/dL 5-40 [facility] Serum or plasma creatinine m easurement (mass/volume)Ordered By: Navneet Antohny on 02-04-2023 Creatinine [Mass/Vol] 1.88 mg/dL 0.55-1.02 [facility] Comment on above: The validity of the calculated GFR & GFRAA in patients over 70 years has not been determined. Clinical correlation is essential. Serum or plasma low density lipoprotein (LDL) cholesterol measurement (mass/volume)Ordered By: Tony Shine on 02-04-2023 Cholesterol in LDL [Mass/Vol] 170 mg/dL 0-130 [facility] Serum or plasma urea nitroge n measurement (mass/volume)Ordered By: Navneet Anthony on 02-04-2023 Urea nitrogen [Mass/Vol] 40 mg/dL 7-18 [facility] Squamous epithelial cells de tection in urine sediment by light microscopyOrdered By: Navneet Anthony on 02-04-2023 Epithelial cells.squamous LM Ql (Urine sed) 0-5 SEEN /hpf 5-10 [facility] Thin prep Papanicolaou smear with manual screeningOrdered By: Navneet Anthony on 02-04-2023 Thin prep Papanicolaou smear with manual screening 36 U/L 15-37 [facility] Thin prep Papanicolaou smear with manual screening 13 5-15 [facility] Urine blood detectionOrdered By: Navneet Anthony on 02-04-2023 RBC Ql (U) 25 /ul Negative [facility] RBC Ql (U) 0-5 SEEN /hpf 0-5 [facility] Urine clarityOrdered By: Ethan Anthony on 02-04-2023 Clarity (U) Clear Clear [facility] Urine color determinationOrd ered By: Navneet Anthony on 02-04-2023 Color (U) Yellow Yellow [facility] Urine glucose detectionOrder ed By: Navneet Anthony on 02-04-2023 Glucose Ql (U) Normal mg/dl Normal [facility] Urine leukocyte esterase det ection by dipstickOrdered By: Navneet Anthony on 02-04-2023 Leukocyte esterase Test strip Ql (U) 100 /ul Negative [facility] Urine pHOrdered By: Navneet hayes on 02-04-2023 pH (U) 5.0 [pH] 5.0 - 8.0 [facility] Urine sediment bacteria coun t by microscopy (number/high power field)Ordered By: Navneet Anthony on 02-04-2023 Bacteria LM.HPF (Urine sed) [#/Area] 1 /[HPF] None Seen [facility] Urine specific gravity measu rementOrdered By: Navneet Anthony on 02-04-2023 Specific gravity (U) [Rel density] 1.030 1.002-1.03 0 [facility] Urobilinogen Auto test strip Ql (U)Ordered By: Navneet Anthony on 02-04-2023 Urobilinogen Ql (U) 4 mg/dl Normal [facility] XR Knee - bilateral 4 Viewso n 12-24-2022 IMPRESSION: 1. Severe right knee osteoarthritis with joint effusion relatively unchanged 2. Mild patellofemoral osteophytes at the left knee. [facility] Transcribe Date/Time: Dec 24 2022 1:00P Dictated by : ADELE TERRY MD This examination was interpreted and the report reviewed and electronically signed by: ADELE TERRY MD on Dec 24 2022 1:02PM [facility] DIVISION OF RADIOLOGY * * *Final Report* * * DATE OF EXAM: Dec 21 2022 3:04PM [id number] 5618 - XR KNEE 4V AP/PA/LAT/[facility] DANY[facility] / PROCEDURE REASON: multiple diagnoses * * * * Physician Interpretation * * * * Bilateral knee radiographs HISTORY: Acute right knee pain.: Myalgia rheumatica TECHNIQUE: 5 views of both knees COMPARISON: 07/04/2022 FINDINGS: Right knee: Tricompartmental joint space narrowing most severe at the medial compartment. Subchondral sclerosis, cystic changes and marginal osteophytes. Knee joint effusion. Left knee: Mild medial compartment joint space narrowing. Mild patellofemoral osteophytes. No fracture, erosions or avascular necrosis. No joint effusion. DIVISION OF RADIOLOGY Provider, [facility] - 12/24/2022 * * *Final Report* * * DATE OF EXAM: Dec 21 2022 3:04PM STX [id number] - XR KNEE 4V AP/PA/LAT/[facility] DANYA / PROCEDURE REASON: multiple diagnoses * * * * Physician Interpretation * * * * Bilateral knee radiographs HISTORY: Acute right knee pain.: Myalgia rheumatica TECHNIQUE: 5 views of both knees COMPARISON: 07/04/2022 FINDINGS: Right knee: Tricompartmental joint space narrowing most severe at the medial compartment. Subchondral sclerosis, cystic changes and marginal osteophytes. Knee joint effusion. Left knee: Mild medial compartment joint space narrowing. Mild patellofemoral osteophytes. No fracture, erosions or avascular necrosis. No joint effusion. IMPRESSION IMPRESSION: 1. Severe right knee osteoarthritis with joint effusion relatively unchanged 2. Mild patellofemoral osteophytes at the left knee. Carbide Grinder: [facility] Transcribe Date/Time: Dec 24 2022 1:00P Dictated by : ADELE TERRY MD This examination was interpreted and the report reviewed and electronically signed by: ADELE TERRY MD on Dec 24 2022 1:02PM EST [facility] XR Pelvis and Hip - right AP and Lateral frogon 12-24-2022 IMPRESSION: 1. No significant right hip joint abnormality Carbide Grinder: [facility] Transcribe Date/Time: Dec 24 2022 12:59P Dictated by : ADELE TERRY MD This examination was interpreted and the report reviewed and electronically signed by: ADELE TERRY MD on Dec 24 2022 1:00PM [facility] DIVISION OF RADIOLOGY * * *Final Report* * * DATE OF EXAM: Dec 21 2022 3:03PM STX 5352 - XR HIP 3V PELV+ AP/LAT RT / PROCEDURE REASON: multiple diagnoses * * * * Physician Interpretation * * * * Right hip radiographs HISTORY: Pain TECHNIQUE: 3 views of the right hip COMPARISON: 07/04/2022 FINDINGS: No fracture, erosions or avascular necrosis. Right hip joint space is preserved. Periarticular soft tissues are unremarkable. Chronic widening and mild sclerosis about the symphysis pubis. Mild degenerative changes at sacroiliac joints. DIVISION OF RADIOLOGY Provider, [facility] - 12/24/2022 * * *Final Report* * * DATE OF EXAM: Dec 21 2022 3:03PM STX 5352 - XR HIP 3V PELV+ AP/LAT RT / PROCEDURE REASON: multiple diagnoses * * * * Physician Interpretation * * * * Right hip radiographs HISTORY: Pain TECHNIQUE: 3 views of the right hip COMPARISON: 07/04/2022 FINDINGS: No fracture, erosions or avascular necrosis. Right hip joint space is preserved. Periarticular soft tissues are unremarkable. Chronic widening and mild sclerosis about the symphysis pubis. Mild degenerative changes at sacroiliac joints. IMPRESSION IMPRESSION: 1. No significant right hip joint abnormality Carbide Grinder: [facility] Transcribe Date/Time: Dec 24 2022 12:59P Dictated by : ADELE TERRY MD This examination was interpreted and the report reviewed and electronically signed by: ADELE TERRY MD on Dec 24 2022 1:00PM EST [facility] XR Pelvis and Hip - right AP and Lateral frogOrdered By: [facility] Provider on 12-24-2022 [facility] No Panel Informationon 12-21 Radiology Study observation (narrative) [facility] Absolute lymphocyte countOrd ered By: Dr. Roe on 12-12-2022 Lymphocytes Auto (Unsp spec) [#/Vol] 1.10 10*3/uL 0.83-4.51 [facility] Basophil percentageOrdered B y: Dr. Roe on 12-12-2022 Basophils/100 WBC (Bld) 0.2 % 0-1 [facility] Chloride [Moles/Vol] 105 mmol/L 98-107 [facility] Eosinophils/100 WBC (Bld) 0.0 % 0-5 [facility] Glucose [Mass/Vol] 149 mg/dL 74-106 [facility] Comment on above: Fasting Glucose resu lt greater than or equal to 126 mg/dL suggests DIABETES MELLITUS per A.D.A. criteria. Neutrophils (Bld) [#/Vol] 11.1 10*3/uL 2.0-7.7 [facility] Neutrophils/100 WBC (Bld) 86.9 % 47-70 [facility] Potassium [Moles/Vol] 4.1 mmol/L 3.5-5.1 [facility] Sodium [Moles/Vol] 139 mmol/L 136-145 [facility] WBC (Bld) [#/Vol] 12.8 10*3/uL 4.4-11.0 [facility] Blood erythrocytes count (nu mber/volume)Ordered By: Dr. Roe on 12-12-2022 RBC (Bld) [#/Vol] 4.41 10*6/uL 4.2-5.4 [facility] Blood hemoglobin measurement (mass/volume)Ordered By: Dr. Roe on 12-12-2022 Hemoglobin (Bld) [Mass/Vol] 12.5 g/dL 12.0-15.0 [facility] Blood lymphocytes/100 leukoc ytesOrdered By: Dr. Roe on 12-12-2022 Lymphocytes/100 WBC (Bld) 8.6 % 19-41 [facility] Blood monocytes/100 leukocyt esOrdered By: Dr. Roe on 12-12-2022 Monocytes/100 WBC (Bld) 3.1 % 0-10 [facility] Blood platelet mean volumeOr dered By: Dr. Roe on 12-12-2022 Platelet mean volume (Bld) [Entitic vol] 8.3 fL 6.2-12.0 [facility] CBC W Auto Differential pane l (Bld)on 12-12-2022 Basophils (Bld) [#/Vol] 0.07 10*3/uL <0.11 k/uL [facility] Basophils/100 WBC (Bld) 0.5 % [facility] Differential cell count method Nom (Bld) Auto [facility] Eosinophils (Bld) [#/Vol] 0.05 10*3/uL <0.46 k/uL [facility] Eosinophils/100 WBC (Bld) 0.3 % [facility] Erythrocyte distribution width (RBC) [Ratio] 13.6 % 11.5 - 15.0 % [facility] Hematocrit (Bld) [Volume fraction] 40.8 % 36.0 - 46.0 % [facility] Hemoglobin (Bld) [Mass/Vol] 13.3 g/dL 11.5 - 15.5 g/dL [facility] Immature granulocytes (Bld) [#/Vol] 0.16 10*3/uL High <0.10 k/uL [facility] Immature granulocytes/100 WBC (Bld) 1.1 % [facility] Lymphocytes (Bld) [#/Vol] 1.36 10*3/uL 1.00 - 4.00 k/uL [facility] Lymphocytes/100 WBC (Bld) 9.3 % [facility] MCH (RBC) [Entitic mass] 28.9 pg 26. 0 - 34.0 pg [facility] MCHC (RBC) [Mass/Vol] 32.6 g/dL 30.5 - 36.0 g/dL [facility] MCV (RBC) [Entitic vol] 88.7 fL 80.0 - 100.0 fL [facility] Monocytes (Bld) [#/Vol] 0.61 10*3/uL <0.87 k/uL [facility] Monocytes/100 WBC (Bld) 4.2 % [facility] Neutrophils (Bld) [#/Vol] 12.32 10*3/uL High 1.45 - 7.50 k/uL [facility] Neutrophils/100 WBC (Bld) 84.6 % [facility] Nucleated RBC (Bld) [#/Vol] <0.01 k/uL [facility] Nucleated RBC/100 WBC (Bld) [Ratio] 0.0 /100 WBC [facility] Platelet mean volume (Bld) [Entitic vol] 8.8 fL Low 9.0 - 12.7 fL [facility] Platelets (Bld) [#/Vol] 361 10*3/uL 150 - 400 k/uL [facility] RBC (Bld) [#/Vol] 4.60 10*6/uL 3.90 - 5.20 m/uL [facility] WBC (Bld) [#/Vol] 14.57 10*3/uL High 3.70 - 11.00 k/uL [facility] Determination of erythrocyte mean corpuscular volume (MCV)Ordered By: Dr. Reo on 12-12-2022 MCV (RBC) [Entitic vol] 88.7 fL 81-99 [facility] Hematocrit Auto (Bld) [Volum e fraction]Ordered By: Dr. Roe on 12-12-2022 Hematocrit (Bld) [Volume fraction] 39.1 % 37-47 [facility] Influenza virus A and B and SARS-CoV-2 (COVID-19) Ag panel - Upper respiratory specimOrdered By: Kartik Roe on 12-12-2022 SARS-CoV-2 (COVID-19) RNA AMBROSE+probe Ql (Resp) [facility] Influenza virus A and B and SARS-CoV-2 (COVID-19) Ag panel - Upper respiratory specimOrdered By: Dr. Roe on 12-12-2022 SARS-CoV-2 (COVID-19) RNA AMBROSE+probe Ql (Resp) [facility] Laboratory - Chemistry and C hemistry - challengeOrdered By: Dr. Roe on 12-12-2022 CO2 [Moles/Vol] 27.0 mmol/L 21.0-32.0 [facility] Natriuretic peptide B (Bld) [Mass/Vol] 98.8 pg/mL 0-100 [facility] Urea nitrogen/Creatinine [Mass ratio] 19.6 mg/mg 10-20 [facility] Laboratory - Hematology and Cell countsOrdered By: Dr. Roe on 12-12-2022 Erythrocyte distribution width (RBC) [Entitic vol] 43.0 fL 35.1-43.9 [facility] Erythrocyte distribution width (RBC) [Ratio] 13.3 % 11.6-14.6 [facility] Immature granulocytes/100 WBC (Bld) 1.200 % 0.0-0.9 [facility] Comment on above: IG% - Immature Granu locytes (promyelocytes, myelocytes and metamyelocytes) > 1% indicates that a LEFT SHIFT is Present. MCH (RBC) [Entitic mass] 28.3 pg 27.0-32.0 [facility] Nucleated RBC/100 WBC (Bld) [Ratio] 0 [facility] [Mass/Vol]Or dered By: Dr. Roe on 12-12-2022 MCHC (RBC) [Mass/Vol] 32.0 g/dL 32-36 [facility] No Panel InformationOrdered By: Dr. Roe on 12-12-2022 Estimated Creatinine Clearance Calc 42.47 ml/min [facility] Estimated GFR (MDRD) Amer 74 mL/min >60 [facility] Comment on above: GFR Calc Estimated GFR (MDRD) Non-Af Amer 61 mL/min >60 [facility] Comment on above: Non- GFR Calc Troponin I High Sensitivity 11 pg/mL 3.0-54.0 [facility] Comment on above: Please Note: New Ana t Units and Gender Specific Reference Ranges. For more information see Policy Stat Procedure [place] High Sensitivity Troponin (TNIH) and attachments. No Panel InformationOrdered By: Dr. Krishnamurthy on 12-12-2022 D-Dimer Quantitative (PE/DVT) 1.89 FEU/ug/m 0.27-0.49 [facility] Comment on above: D-Dimer ELEVATED (>0 .49): Additional studies and clinicalassessments are indicated to conclude diagnosis of:Deep Vein Thrombosis (DVT) or Pulmonary Embolism (PE)CRITICAL VALUE VERIFIED. CALLED TO MARIA DE JESUS SIMON12/12/22 1635 Lacey Floyd.RESULTS READ BACK BY SAME . Platelets bldOrdered By: Dr. Roe on 12-12-2022 Platelets (Bld) [#/Vol] 297 10*3/uL 150-450 [facility] Serum or plasma calcium shannan urement (mass/volume)Ordered By: Dr. Roe on 12-12-2022 Calcium [Mass/Vol] 8.9 mg/dL 8.5-10.1 [facility] Serum or plasma creatinine m easurement (mass/volume)Ordered By: Dr. Roe on 12-12-2022 Creatinine [Mass/Vol] 0.97 mg/dL 0.55-1.02 [facility] Comment on above: The validity of the calculated GFR & GFRAA in patients over 70 years has not been determined. Clinical correlation is essential. Serum or plasma urea nitroge n measurement (mass/volume)Ordered By: Dr. Roe on 12-12-2022 Urea nitrogen [Mass/Vol] 19 mg/dL 7-18 [facility] Thin prep Papanicolaou smear with manual screeningOrdered By: Dr. Roe on 12-12-2022 Thin prep Papanicolaou smear with manual screening 7 5-15 [facility] XR CHEST 2V FRONTAL/LATon [facility] XR Chest PA and Lateralon IMPRESSION: No acute radiographic abnormality. Carbide Grinder: [facility] Transcribe Date/Time: Dec 12 2022 4:16P Dictated by : VIELKA COOMBS MD This examination was interpreted and the report reviewed and electronically signed by: VIELKA COOMBS MD on Dec 12 2022 4:17PM [facility] DIVISION OF RADIOLOGY * * *Final Report* * * DATE OF EXAM: Dec 12 2022 2:49PM WOX 5291 - XR CHEST 2V FRONTAL/LAT / PROCEDURE REASON: Bronchitis * * * * Physician Interpretation * * * * EXAMINATION: CHEST RADIOGRAPH (2 VIEW FRONTAL & LATERAL) CLINICAL HISTORY: Bronchitis MQ: XC2_6 EXAM DATE/TIME: 12/12/2022 2:49 PM COMPARISON: No relevant prior studies available. RESULT: Lines, tubes, and devices: None. Lungs and pleura: No consolidation. No lung mass. No pleural effusion. No pneumothorax. There are large bilateral pericardial fat pads. Cardiomediastinal silhouette: The cardiac silhouette is within normal limits, with tortuosity of the thoracic aorta. Bones and soft tissues: Unremarkable. DIVISION OF RADIOLOGY Provider, [facility] - 12/12/2022 * * *Final Report* * * DATE OF EXAM: Dec 12 2022 2:49PM WOX 5291 - XR CHEST 2V FRONTAL/LAT / PROCEDURE REASON: Bronchitis * * * * Physician Interpretation * * * * EXAMINATION: CHEST RADIOGRAPH (2 VIEW FRONTAL & LATERAL) CLINICAL HISTORY: Bronchitis MQ: XC2_6 EXAM DATE/TIME: 12/12/2022 2:49 PM COMPARISON: No relevant prior studies available. RESULT: Lines, tubes, and devices: None. Lungs and pleura: No consolidation. No lung mass. No pleural effusion. No pneumothorax. There are large bilateral pericardial fat pads. Cardiomediastinal silhouette: The cardiac silhouette is within normal limits, with tortuosity of the thoracic aorta. Bones and soft tissues: Unremarkable. IMPRESSION IMPRESSION: No acute radiographic abnormality. Carbide Grinder: [facility] Transcribe Date/Time: Dec 12 2022 4:16P Dictated by : VIELKA COOMBS MD This examination was interpreted and the report reviewed and electronically signed by: VIELKA COOMBS MD on Dec 12 2022 4:17PM EST [facility] Radiology Study observation (narrative) [facility] XR Chest PA and LateralOrder ed By: [facility] Provider on 12-12-2022 [facility] No Panel Informationon 07-04 Radiology Study observation (narrative) [facility] XR Cervical spine AP and Lat eral and obliqueon 07-04-2022 IMPRESSION: Cervical spine degenerative changes as described above. Carbide Grinder: [facility] Transcribe Date/Time: Jul 04 2022 4:24P Dictated by : VIELKA COOMBS MD This examination was interpreted and the report reviewed and electronically signed by: VIELKA COOMBS MD on Jul 04 2022 4:26PM [facility] DIVISION OF RADIOLOGY * * *Final Report* * * DATE OF EXAM: Jul 04 2022 3:38PM WOX 5311 - XR CERVICAL 4V AP/LAT/OBL / PROCEDURE REASON: Neck pain * * * * Physician Interpretation * * * * EXAM TITLE: XR CERVICAL 4V AP/LAT/OBL EXAM DATE/TIME: 07/04/2022 3:38 PM COMPARISON: None. CLINICAL INDICATION/HISTORY: Neck pain. TECHNIQUE: AP, lateral and oblique views of the cervical spine are presented. FINDINGS: Limitations: Only 6 cervical vertebrae are visualized on lateral view, due to superimposed soft tissue from the shoulders. No acute fractures seen. There appears be minimal C4 on C5 anterolisthesis. C5-6 mild disc space narrowing is demonstrated. There is mild osteophyte formation. The neural foramina are grossly patent. The prevertebral soft tissues are normal. DIVISION OF RADIOLOGY Provider, Noni [facility] - 07/04/2022 * * *Final Report* * * DATE OF EXAM: Jul 04 2022 3:38PM WOX 5311 - XR CERVICAL 4V AP/LAT/OBL / PROCEDURE REASON: Neck pain * * * * Physician Interpretation * * * * EXAM TITLE: XR CERVICAL 4V AP/LAT/OBL EXAM DATE/TIME: 07/04/2022 3:38 PM COMPARISON: None. CLINICAL INDICATION/HISTORY: Neck pain. TECHNIQUE: AP, lateral and oblique views of the cervical spine are presented. FINDINGS: Limitations: Only 6 cervical vertebrae are visualized on lateral view, due to superimposed soft tissue from the shoulders. No acute fractures seen. There appears be minimal C4 on C5 anterolisthesis. C5-6 mild disc space narrowing is demonstrated. There is mild osteophyte formation. The neural foramina are grossly patent. The prevertebral soft tissues are normal. IMPRESSION IMPRESSION: Cervical spine degenerative changes as described above. Carbide Grinder: [facility] Transcribe Date/Time: Jul 04 2022 4:24P Dictated by : VIELKA COOMBS MD This examination was interpreted and the report reviewed and electronically signed by: VIELKA COOMBS MD on Jul 04 2022 4:26PM [facility] XR HIP BILATERAL 5V PEL/AP/L AT EACH HIPon 07-04-2022 IMPRESSION: No radiographic evidence of acute osseous abnormality Carbide Grinder: [facility] Transcribe Date/Time: Jul 04 2022 4:07P Dictated by : CARLOS LESLIE MD This examination was interpreted and the report reviewed and electronically signed by: CARLOS LESLIE MD on Jul 04 2022 4:13PM [facility] DIVISION OF RADIOLOGY * * *Final Report* * * DATE OF EXAM: Jul 04 2022 3:38PM WOX 5353 - XR HIP DANYA 5V PEL+ AP/LAT EA HIP / PROCEDURE REASON: Hip pain * * * * Physician Interpretation * * * * CLINICAL INDICATION: Pain TECHNIQUE: AP radiograph of the pelvis and AP/frog leg lateral radiographs of the bilateral hips COMPARISON: None FINDINGS: No acute fracture or dislocation identified. Joint spaces preserved. Degenerative changes about the pubic symphysis with subchondral sclerosis. DIVISION OF RADIOLOGY Provider, [facility] - 07/04/2022 * * *Final Report* * * DATE OF EXAM: Jul 04 2022 3:38PM WOX 5353 - XR HIP DANYA 5V PEL+ AP/LAT EA HIP / PROCEDURE REASON: Hip pain * * * * Physician Interpretation * * * * CLINICAL INDICATION: Pain TECHNIQUE: AP radiograph of the pelvis and AP/frog leg lateral radiographs of the bilateral hips COMPARISON: None FINDINGS: No acute fracture or dislocation identified. Joint spaces preserved. Degenerative changes about the pubic symphysis with subchondral sclerosis. IMPRESSION IMPRESSION: No radiographic evidence of acute osseous abnormality Carbide Grinder: [facility] Transcribe Date/Time: Jul 04 2022 4:07P Dictated by : CARLOS LESLIE MD This examination was interpreted and the report reviewed and electronically signed by: CARLOS LESLIE MD on Jul 04 2022 4:13PM [facility] XR Knee - right 4 Viewson IMPRESSION: 1. Large right suprapatellar joint effusion. 2. Osteoarthritis, as described, and severe on the right. Carbide Grinder: [facility] Transcribe Date/Time: Jul 04 2022 4:15P Dictated by : CARLOS LESLIE MD This examination was interpreted and the report reviewed and electronically signed by: CARLOS LESLIE MD on Jul 04 2022 4:17PM [facility] DIVISION OF RADIOLOGY * * *Final Report* * * DATE OF EXAM: Jul 04 2022 3:38PM WOX 5203 - XR KNEE 4V AP/PA BOTH+LAT/ARMANDO RT / PROCEDURE REASON: Right knee pain, unspecified chronicity * * * * Physician Interpretation * * * * CLINICAL INDICATION: Knee pain TECHNIQUE: AP/PA/merchant radiographs of both knees and lateral radiograph of the right knee COMPARISON: Radiograph dated November 18, 2020 FINDINGS: Right knee: Large suprapatellar joint effusion. No acute fracture. Mild lateral translation of the proximal tibia relative to the distal femur. Severe medial compartmental joint space narrowing with subchondral cystic change, subchondral sclerosis and marginal osteophyte formation. Moderate lateral compartmental joint space narrowing with subchondral cystic change. Minimal lateral patellar subluxation with mild to moderate patellofemoral compartmental joint space narrowing. Left knee: No acute fracture or dislocation. Mild medial and mild to moderate patellofemoral compartmental joint space narrowing. DIVISION OF RADIOLOGY Provider, [facility] [place] - 07/04/2022 * * *Final Report* * * DATE OF EXAM: Jul 04 2022 3:38PM WOX 5203 - XR KNEE 4V AP/PA BOTH+LAT/ARMANDO RT / PROCEDURE REASON: Right knee pain, unspecified chronicity * * * * Physician Interpretation * * * * CLINICAL INDICATION: Knee pain TECHNIQUE: AP/PA/merchant radiographs of both knees and lateral radiograph of the right knee COMPARISON: Radiograph dated November 18, 2020 FINDINGS: Right knee: Large suprapatellar joint effusion. No acute fracture. Mild lateral translation of the proximal tibia relative to the distal femur. Severe medial compartmental joint space narrowing with subchondral cystic change, subchondral sclerosis and marginal osteophyte formation. Moderate lateral compartmental joint space narrowing with subchondral cystic change. Minimal lateral patellar subluxation with mild to moderate patellofemoral compartmental joint space narrowing. Left knee: No acute fracture or dislocation. Mild medial and mild to moderate patellofemoral compartmental joint space narrowing. IMPRESSION IMPRESSION: 1. Large right suprapatellar joint effusion. 2. Osteoarthritis, as described, and severe on the right. Carbide Grinder: [facility] Transcribe Date/Time: Jul 04 2022 4:15P Dictated by : CARLOS LESLIE MD This examination was interpreted and the report reviewed and electronically signed by: CARLOS LESLIE MD on Jul 04 2022 4:17PM EST [facility] XR Knee - right 4 ViewsOrder ed By: [facility] Provider on 07-04-2022 [facility] Absolute lymphocyte counton 04-13-2022 Lymphocytes Auto (Unsp spec) [#/Vol] 0.69 10*3/uL 0.83-4.51 [facility] Work Phone: Basophil percentageon 2021 Basophil percentage 0 SEEN /hpf 0-5 [facility] Work Phone: [phone] Basophils/100 WBC (Bld) 0.4 % 0-1 [facility] Work Phone: Chloride [Moles/Vol] 102 mmol/L 98-107 [facility] Work Phone: Eosinophils/100 WBC (Bld) 0.2 % 0-5 [facility] Work Phone: Glucose [Mass/Vol] 106 mg/dL 74-106 [facility] Work Phone: [phone] Comment on above: Fasting Glucose resu lt from 100 to 125 mg/dL suggests IMPAIRED HOMEOSTASIS per A.D.A. criteria. Neutrophils (Bld) [#/Vol] 3.9 10*3/uL 2.0-7.7 [facility] Work Phone: Neutrophils/100 WBC (Bld) 76.7 % 47-70 [facility] Work Phone: Potassium [Moles/Vol] 4.1 mmol/L 3.5-5.1 [facility] Work Phone: [phone] Sodium [Moles/Vol] 135 mmol/L 136-145 [facility] Work Phone: WBC (Bld) [#/Vol] 5.1 10*3/uL 4.4-11.0 [facility] Work Phone: [phone] Bilirubin Test strip Ql (U)o n 04-13-2022 Bilirubin Ql (U) Negative Negative [facility] Work Phone: [phone] Blood erythrocytes count (nu mber/volume)on 04-13-2022 RBC (Bld) [#/Vol] 4.19 10*6/uL 4.2-5.4 [facility] Work Phone: Blood hemoglobin measurement (mass/volume)on 04-13-2022 Hemoglobin (Bld) [Mass/Vol] 11.0 g/dL 12.0-15.0 [facility] Work Phone: Blood lymphocytes/100 leukoc yteson 04-13-2022 Lymphocytes/100 WBC (Bld) 13.5 % 19-41 [facility] Work Phone: Blood monocytes/100 leukocyt eson 04-13-2022 Monocytes/100 WBC (Bld) 8.6 % 0-10 [facility] Work Phone: Blood platelet mean volumeon 04-13-2022 Platelet mean volume (Bld) [Entitic vol] 8.3 fL 6.2-12.0 [facility] Work Phone: Determination of erythrocyte mean corpuscular volume (MCV)on 04-13-2022 MCV (RBC) [Entitic vol] 81.9 fL 81-99 [facility] Work Phone: Hematocrit Auto (Bld) [Volum e fraction]on 04-13-2022 Hematocrit (Bld) [Volume fraction] 34.3 % 37-47 [facility] Work Phone: Ketones Test strip Ql (U)on 04-13-2022 Ketones Ql (U) Negative Negative [facility] Work Phone: Laboratory - Chemistry and C hemistry - challengeon 04-13-2022 CO2 [Moles/Vol] 26.0 mmol/L 21.0-32.0 [facility] Work Phone: Urea nitrogen/Creatinine [Mass ratio] 25.7 mg/mg 10-20 [facility] Work Phone: Laboratory - Hematology and Cell countson 04-13-2022 Erythrocyte distribution width (RBC) [Entitic vol] 36.7 fL 35.1-43.9 [facility] Work Phone: Erythrocyte distribution width (RBC) [Ratio] 12.5 % 11.6-14.6 [facility] Work Phone: Immature granulocytes/100 WBC (Bld) 0.600 % 0.0-0.9 [facility] Work Phone: Comment on above: IG% - Immature Granu locytes (promyelocytes, myelocytes and metamyelocytes) > 1% indicates that a LEFT SHIFT is Present. MCH (RBC) [Entitic mass] 26.3 pg 27.0-32.0 [facility] Work Phone: [phone] Nucleated RBC/100 WBC (Bld) [Ratio] 0 % 0-5 [facility] Work Phone: MCHC Auto (RBC) [Mass/Vol]on 04-13-2022 MCHC (RBC) [Mass/Vol] 32.1 g/dL 32-36 [facility] Work Phone: Mucus LM Ql (Urine sed)on Mucus Ql (Urine sed) 0 SEEN /hpf [facility] Work Phone: Nitrite Test strip Ql (U)on 04-13-2022 Nitrite Ql (U) Negative Negative [facility] Work Phone: No Panel Informationon 04-13 Estimated Creatinine Clearance Calc 41.76 ml/min [facility] Work Phone: Estimated GFR (MDRD) Amer 95 mL/min >60 [facility] Work Phone: Comment on above: GFR Calc Estimated GFR (MDRD) Non-Af Amer 79 mL/min >60 [facility] Work Phone: Comment on above: Non- GFR Calc Platelets bldon 04-13-2022 Platelets (Bld) [#/Vol] 276 10*3/uL 150-450 [facility] Work Phone: Protein Test strip Ql (U)on 04-13-2022 Protein Ql (U) Negative Negative [facility] Work Phone: Serum or plasma calcium shannan urement (mass/volume)on 04-13-2022 Calcium [Mass/Vol] 8.6 mg/dL 8.5-10.1 [facility] Work Phone: Serum or plasma creatinine m easurement (mass/volume)on 04-13-2022 Creatinine [Mass/Vol] 0.78 mg/dL 0.55-1.02 [facility] Work Phone: Comment on above: The validity of the calculated GFR & GFRAA in patients over 70 years has not been determined. Clinical correlation is essential. Serum or plasma urea nitroge n measurement (mass/volume)on 04-13-2022 Urea nitrogen [Mass/Vol] 20 mg/dL 7-18 [facility] Work Phone: Squamous epithelial cells de tection in urine sediment by light microscopyon 04-13-2022 Epithelial cells.squamous LM Ql (Urine sed) 0 SEEN /hpf 5-10 [facility] Work Phone: Thin prep Papanicolaou smear with manual screeningon 04-13-2022 Thin prep Papanicolaou smear with manual screening 7 5-15 [facility] Work Phone: [phone] Urine blood detectionon RBC Ql (U) 10 /ul Negative [facility] Work Phone: [phone] RBC Ql (U) 0 SEEN /hpf 0-5 [facility] Work Phone: [phone] Urine clarityon 04-13-2022 Clarity (U) Clear Clear [facility] Work Phone: Urine color determinationon 04-13-2022 Color (U) Yellow Yellow [facility] Work Phone: Urine glucose detectionon Glucose Ql (U) Normal mg/dl Normal [facility] Work Phone: [phone] Urine leukocyte esterase det ection by dipstickon 04-13-2022 Leukocyte esterase Test strip Ql (U) Negative Negative [facility] Work Phone: [phone] Urine pHon 04-13-2022 pH (U) 6.0 [pH] 5.0 - 8.0 [facility] Work Phone: Urine sediment bacteria coun t by microscopy (number/high power field)on 04-13-2022 Bacteria LM.HPF (Urine sed) [#/Area] RARE /hpf None Seen [facility] Work Phone: [phone] Urine specific gravity measu rementon 04-13-2022 Specific gravity (U) [Rel density] 1.010 1.002-1.03 0 [facility] Work Phone: [phone] Urobilinogen Auto test strip Ql (U)on 04-13-2022 Urobilinogen Ql (U) Normal mg/dl Normal [facility] Work Phone: Absolute lymphocyte counton 11-02-2021 Lymphocytes Auto (Unsp spec) [#/Vol] 0.86 10*3/uL 0.83-4.51 [facility] Work Phone: Basophil percentageon 2021 Basophils/100 WBC (Bld) 0.8 % 0-1 [facility] Work Phone: Chloride [Moles/Vol] 107 mmol/L 98-107 [facility]: Eosinophils/100 WBC (Bld) 5.2 % 0-5 [facility] Work Phone: Glucose [Mass/Vol] 87 mg/dL 74-106 [facility] Work Phone: Neutrophils (Bld) [#/Vol] 3.3 10*3/uL 2.0-7.7 [facility] Work Phone: Neutrophils/100 WBC (Bld) 68.6 % 47-70 [facility] Work Phone: Potassium [Moles/Vol] 3.9 mmol/L 3.5-5.1 [facility] Work Phone: Sodium [Moles/Vol] 138 mmol/L 136-145 [facility] Work Phone: WBC (Bld) [#/Vol] 4.8 10*3/uL 4.4-11.0 [facility] Work Phone: Blood erythrocytes count (nu mber/volume)on 11-02-2021 RBC (Bld) [#/Vol] 3.85 10*6/uL 4.2-5.4 [facility] Work Phone: Blood hemoglobin measurement (mass/volume)on 11-02-2021 Hemoglobin (Bld) [Mass/Vol] 11.0 g/dL 12.0-15.0 [facility] Work Phone: Blood lymphocytes/100 leukoc yteson 11-02-2021 Lymphocytes/100 WBC (Bld) 17.8 % 19-41 [facility] Work Phone: Blood monocytes/100 leukocyt eson 11-02-2021 Monocytes/100 WBC (Bld) 7.0 % 0-10 [facility] Work Phone: Blood platelet mean volumeon 11-02-2021 Platelet mean volume (Bld) [Entitic vol] 9.0 fL 6.2-12.0 [facility] Work Phone: [phone] Determination of erythrocyte mean corpuscular volume (MCV)on 11-02-2021 MCV (RBC) [Entitic vol] 86.5 fL 81-99 [facility] Work Phone: Hematocrit Auto (Bld) [Volum e fraction]on 11-02-2021 Hematocrit (Bld) [Volume fraction] 33.3 % 37-47 [facility] Work Phone: [phone] Laboratory - Chemistry and C hemistry - challengeon 11-02-2021 CO2 [Moles/Vol] 26.0 mmol/L 21.0-32.0 [facility] Work Phone: Urea nitrogen/Creatinine [Mass ratio] 18.6 mg/mg 10-20 [facility] Work Phone: Laboratory - Hematology and Cell countson 11-02-2021 Erythrocyte distribution width (RBC) [Entitic vol] 41.4 fL 35.1-43.9 [facility] Work Phone: [phone] Erythrocyte distribution width (RBC) [Ratio] 13.3 % 11.6-14.6 [facility] Work Phone: [phone] Immature granulocytes/100 WBC (Bld) 0.600 % 0.0-0.9 [facility] Work Phone: [phone] Comment on above: IG% - Immature Granu locytes (promyelocytes, myelocytes and metamyelocytes) > 1% indicates that a LEFT SHIFT is Present. MCH (RBC) [Entitic mass] 28.6 pg 27.0-32.0 [facility] Work Phone: Nucleated RBC/100 WBC (Bld) [Ratio] 0 % 0-5 [facility] Work Phone: MCHC Auto (RBC) [Mass/Vol]on 11-02-2021 MCHC (RBC) [Mass/Vol] 33.0 g/dL 32-36 [facility] Work Phone: No Panel Informationon 11-02 Estimated Creatinine Clearance Calc 45.89 ml/min [facility] Work Phone: Estimated GFR (MDRD) Amer 79 mL/min >60 [facility] Work Phone: Comment on above: GFR Calc Estimated GFR (MDRD) Non-Af Amer 66 mL/min >60 [facility] Work Phone: Comment on above: Non- GFR Calc Platelets bldon 11-02-2021 Platelets (Bld) [#/Vol] 206 10*3/uL 150-450 [facility] Work Phone: Serum or plasma calcium shannan urement (mass/volume)on 11-02-2021 Calcium [Mass/Vol] 8.2 mg/dL 8.5-10.1 [facility] Work Phone: Serum or plasma creatinine m easurement (mass/volume)on 11-02-2021 Creatinine [Mass/Vol] 0.91 mg/dL 0.55-1.02 [facility] Work Phone: Comment on above: The validity of the calculated GFR & GFRAA in patients over 70 years has not been determined. Clinical correlation is essential. Serum or plasma urea nitroge n measurement (mass/volume)on 11-02-2021 Urea nitrogen [Mass/Vol] 17 mg/dL 7-18 [facility] Work Phone: Thin prep Papanicolaou smear with manual screeningon 11-02-2021 Thin prep Papanicolaou smear with manual screening 5 5-15 [facility] Work Phone: Glucose Glucometer (BldC) [M ass/Vol]on 10-26-2021 Glucose [Mass/Vol] 100 mg/dL 74-106 [facility] Work Phone: Comment on above: MANAGEMENT OF PATIEN T CARE PER NURSING PROTOCOL Absolute lymphocyte counton 10-17-2021 Lymphocytes Auto (Unsp spec) [#/Vol] 1.50 10*3/uL 0.83-4.51 [facility] Work Phone: Basophil percentageon 2021 Basophils/100 WBC (Bld) 0.8 % 0-1 [facility] Work Phone: Chloride [Moles/Vol] 109 mmol/L 98-107 [facility] Work Phone: Eosinophils/100 WBC (Bld) 3.6 % 0-5 [facility] Work Phone: Glucose [Mass/Vol] 95 mg/dL 74-106 [facility] Work Phone: Neutrophils (Bld) [#/Vol] 3.8 10*3/uL 2.0-7.7 [facility] Work Phone: Neutrophils/100 WBC (Bld) 62.0 % 47-70 [facility] Work Phone: Potassium [Moles/Vol] 4.0 mmol/L 3.5-5.1 [facility] Work Phone: Sodium [Moles/Vol] 139 mmol/L 136-145 [facility] Work Phone: WBC (Bld) [#/Vol] 6.1 10*3/uL 4.4-11.0 [facility] Work Phone: Blood erythrocytes count (nu mber/volume)on 10-17-2021 RBC (Bld) [#/Vol] 3.90 10*6/uL 4.2-5.4 [facility] Work Phone: Blood hemoglobin measurement (mass/volume)on 10-17-2021 Hemoglobin (Bld) [Mass/Vol] 11.1 g/dL 12.0-15.0 [facility] Work Phone: Blood lymphocytes/100 leukoc yteson 10-17-2021 Lymphocytes/100 WBC (Bld) 24.5 % 19-41 [facility] Work Phone: Blood monocytes/100 leukocyt eson 10-17-2021 Monocytes/100 WBC (Bld) 8.8 % 0-10 [facility] Work Phone: [phone] Blood platelet mean volumeon 10-17-2021 Platelet mean volume (Bld) [Entitic vol] 9.3 fL 6.2-12.0 [facility] Work Phone: [phone] Culture, urineon 10-17-2021 Bacteria identified Cx Nom (U) Positive [facility] Work Phone: [phone] Determination of erythrocyte mean corpuscular volume (MCV)on 10-17-2021 MCV (RBC) [Entitic vol] 88.2 fL 81-99 [facility] Work Phone: [phone] Hematocrit Auto (Bld) [Volum e fraction]on 10-17-2021 Hematocrit (Bld) [Volume fraction] 34.4 % 37-47 [facility] Work Phone: [phone] Laboratory - Chemistry and C hemistry - challengeon 10-17-2021 CO2 [Moles/Vol] 26.0 mmol/L 21.0-32.0 [facility] Work Phone: [phone] Urea nitrogen/Creatinine [Mass ratio] 19.4 mg/mg 10-20 [facility] Work Phone: [phone] Laboratory - Hematology and Cell countson 10-17-2021 Erythrocyte distribution width (RBC) [Entitic vol] 43.3 fL 35.1-43.9 [facility] Work Phone: [phone] Erythrocyte distribution width (RBC) [Ratio] 13.5 % 11.6-14.6 [facility] Work Phone: [phone] Immature granulocytes/100 WBC (Bld) 0.300 % 0.0-0.9 [facility] Work Phone: [phone] Comment on above: IG% - Immature Granu locytes (promyelocytes, myelocytes and metamyelocytes) > 1% indicates that a LEFT SHIFT is Present. MCH (RBC) [Entitic mass] 28.5 pg 27.0-32.0 [facility] Work Phone: Nucleated RBC/100 WBC (Bld) [Ratio] 0 % 0-5 [facility] Work Phone: MCHC Auto (RBC) [Mass/Vol]on 10-17-2021 MCHC (RBC) [Mass/Vol] 32.3 g/dL 32-36 [facility] Work Phone: No Panel Informationon 10-17 Estimated Creatinine Clearance Calc 50.31 ml/min [facility] Work Phone: Estimated GFR (MDRD) Amer 89 mL/min >60 [facility] Work Phone: Comment on above: GFR Calc Estimated GFR (MDRD) Non-Af Amer 74 mL/min >60 [facility] Work Phone: Comment on above: Non- GFR Calc Platelets bldon 10-17-2021 Platelets (Bld) [#/Vol] 212 10*3/uL 150-450 [facility] Work Phone: Serum or plasma calcium shannan urement (mass/volume)on 10-17-2021 Calcium [Mass/Vol] 8.0 mg/dL 8.5-10.1 [facility] Work Phone: Serum or plasma creatinine m easurement (mass/volume)on 10-17-2021 Creatinine [Mass/Vol] 0.83 mg/dL 0.55-1.02 [facility] Work Phone: Comment on above: The validity of the calculated GFR & GFRAA in patients over 70 years has not been determined. Clinical correlation is essential. Serum or plasma urea nitroge n measurement (mass/volume)on 10-17-2021 Urea nitrogen [Mass/Vol] 16 mg/dL 7-18 [facility] Work Phone: Thin prep Papanicolaou smear with manual screeningon 10-17-2021 Thin prep Papanicolaou smear with manual screening 4 5-15 [facility] Work Phone: Basophil percentageon 2021 Basophil percentage 10-25 SEEN /hpf [facility] Work Phone: Bilirubin [Mass/Vol] 0.50 mg/dL 0.20-1.00 [facility] Work Phone: Comment on above: For patients on eltr ombopag therapy, use of Dimension [place] TBIL is not recommended. Protein [Mass/Vol] 7.3 g/dL 6.4-8.2 [facility] Work Phone: Bilirubin Test strip Ql (U)o n 10-16-2021 Bilirubin Ql (U) Negative Negative [facility] Work Phone: Ketones Test strip Ql (U)on 10-16-2021 Ketones Ql (U) 5 mg/dl Negative [facility] Work Phone: Laboratory - Chemistry and C hemistry - challengeon 10-16-2021 CK [Catalytic activity/Vol] 53 U/L 26-192 [facility] Work Phone: Comment on above: Moderate Hemolysis, Result may be falsely increased. ALP [Catalytic activity/Vol] 95 U/L 45-117 [facility] Work Phone: ALT [Catalytic activity/Vol] 37 U/L 13-56 [facility] Work Phone: Globulin (S) [Mass/Vol] 4.0 g/dL 2.2-4.2 [facility] Work Phone: Mucus LM Ql (Urine sed)on Mucus Ql (Urine sed) 3+ /hpf [facility] Work Phone: Nitrite Test strip Ql (U)on 10-16-2021 Nitrite Ql (U) Positive Negative [facility] Work Phone: No Panel Informationon 10-16 Troponin I High Sensitivity 7 pg/mL 3.0-54.0 [facility] Work Phone: Comment on above: Please Note: New Ana t Units and Gender Specific Reference Ranges. For more information see Policy Stat Procedure [place] High Sensitivity Troponin (TNIH) and attachments. Protein Test strip Ql (U)on 10-16-2021 Protein Ql (U) 30 mg/dl Negative [facility] Work Phone: Serum or plasma C reactive p rotein measurement (mass/volume)on 10-16-2021 CRP [Mass/Vol] 5.73 mg/L 0.0-3.0 [facility] Work Phone: Comment on above: C-Reactive Protein ( CRP) provides useful information for thediagnosis, therapy and monitoring of inflammatory processesand associated diseases. For the evaluation of Relative Riskfor Cardiovascular Disease, a High Sensitivity CRP (HSCRP)should be ordered. Serum or plasma albumin shannan urement (mass/volume)on 10-16-2021 Albumin [Mass/Vol] 3.3 g/dL 3.2-5.0 [facility] Work Phone: Serum or plasma albumin/glob ulin mass ratioon 10-16-2021 Albumin/Globulin [Mass ratio] 0.8 {ratio} 0.9-2.4 [facility] Work Phone: Squamous epithelial cells de tection in urine sediment by light microscopyon 10-16-2021 Epithelial cells.squamous LM Ql (Urine sed) 0 SEEN /hpf [facility] Work Phone: Thin prep Papanicolaou smear with manual screeningon 10-16-2021 Thin prep Papanicolaou smear with manual screening 43 U/L 15-37 [facility] Work Phone: Comment on above: Moderate Hemolysis, Result may be falsely increased. Urine blood detectionon - RBC Ql (U) Negative Negative [facility] Work Phone: RBC Ql (U) 0 SEEN /hpf [facility] Work Phone: Urine clarityon 10-16-2021 Clarity (U) Sl. Cloudy Clear [facility] Work Phone: Urine color determinationon 10-16-2021 Color (U) Yellow Yellow [facility] Work Phone: Urine glucose detectionon Glucose Ql (U) Normal mg/dl Normal [facility] Work Phone: Urine leukocyte esterase det ection by dipstickon 10-16-2021 Leukocyte esterase Test strip Ql (U) 500 /ul Negative [facility] Work Phone: Urine pHon 10-16-2021 pH (U) 5.0 [pH] [facility] Work Phone: Urine sediment bacteria coun t by microscopy (number/high power field)on 10-16-2021 Bacteria LM.HPF (Urine sed) [#/Area] 4 /[HPF] None Seen [facility] Work Phone: Urine specific gravity measu rementon 10-16-2021 Specific gravity (U) [Rel density] 1.025 [facility] Work Phone: Urobilinogen Auto test strip Ql (U)on 10-16-2021 Urobilinogen Ql (U) 1 mg/dl Normal [facility] Work Phone: ANES POSTPROC EVALon 022 ANES POSTPROC EVAL HNO ID: [id number] Author: Tony Roach MD Service: Anesthesiology Author Type: Anesthesiologist Type: Anesthesia Postprocedure Evaluation Filed: 09/25/2021 2:29 PM Note Text: POST ANESTHESIA EVALUATION NOTE : 1955 Procedure Summary Date: 09/25/21 Room / Location: [facility]oscopy Anesthesia Start: 1308 Anesthesia Stop: 1357 Procedures: COLONOSCOPY DIAGNOSTIC EGD DIAGNOSTIC Diagnosis: Constipation, unspecified constipation type Personal history of colonic polyps Screen for colon cancer Gastroesophageal reflux disease without esophagitis Dysphagia, unspecified type Acute biliary pancreatitis without infection or necrosis Family history of colon cancer (High risk colon cancer surveillance: Personal history of colonic polyps) (Dysphagia) Scheduled Providers: Terrence Canas MD; Fely Huizar APRN.MILIT[employer] SOURCE OPERATIONS SPECIALIST Responsible Provider: Tony Roach MD Anesthesia Type: MAC ASA Status: 4 Anesthesia Type: MAC Last Vitals Vitals Value Taken Time BP 126/59 09/25/21 1415 Temp 36.7 ?C (98.1 ?F) 09/25/21 1354 Pulse 65 09/25/21 1428 Resp 26 09/25/21 1428 SpO2 97 % 09/25/21 1428 Vitals shown include unvalidated device data. Post Anesthesia Patient Status Patient Evaluation: bedside. Anticipated Disposition: phase 2 then home. Neurological Status: aware and responsive. Pulmonary Status: breathing comfortably on room air Airway Control: returned to baseline unsupported. Cardiovascular Status: stable. Pain Management: clinically adequate Postoperative Hydration: acceptable. Intraoperative Events: no significant anesthesia events Post Operative Nausea/Vomiting Status: no significant post operative nausea or vomiting Anesthetic Observations: Recommendation: continue current plan of care. Anesthesia Observations No Documentation SIGNATURE: Tony Roach MD PATIENT NAME: Augustine Pena DATE: September 25, 2021 TIME: 2:29 PM CSN: [id number] Normal [facility] ANES PRE-OPon 09-25-2021 ANES PRE-OP HNO ID: [id number] Author: Tony Roach MD Service: Anesthesiology Author Type: Anesthesiologist Type: Anesthesia Preprocedure Evaluation Filed: 09/25/2021 11:56 AM Note Text: ANESTHESIOLOGY DAY OF SURGERY NOTE : 1955 Procedure Information Date/Time: 09/25/21 1000 Scheduled providers: Terrence Canas MD; Fely Huizar APRN.MILIT[employer] SOURCE OPERATIONS SPECIALIST Procedures: COLONOSCOPY DIAGNOSTIC EGD DIAGNOSTIC Location: [facility] Endoscopy Estimated body mass index is 42.7 kg/m? as calculated from the following: Height as of this encounter: 154.9 cm (5' 1). Weight as of this encounter: 102.5 kg (226 lb). Most recent hematocrit and potassium results: Hematocrit 40.3 11/18/2020 Potassium 4.5 11/18/2020 Relevant Problems CARDIO (+) Essential hypertension (+) Thoracic ascending aortic aneurysm (HCC) NEURO-PSYCH (+) History of colonic polyps I - PHYSICAL EVALUATION AIRWAY Patient intubated: No. Tracheostomy tube not present Mallampati: I. TM distance: >3 FB. Neck ROM: full ROM without neurological symptoms. Mouth opening: adequate. Short neck: no. Thick neck: no DENTAL Dental findings: edentulous. Additional exam findings: no II - ANESTHESIA PLAN ASA Score: 4 Anesthetic Plan: MAC The patient is not a current smoker. NPO Status: adequate Monitoring plan: standard ASA. Postoperative analgesic plan: parenteral or oral opioids. Anesthetic Risks, Benefits, Alternatives, Personnel Discussed. Consent obtained from: patient.Patient / Surrogate agrees to blood products: blood products not planned DNR status not reviewed with patient and/or family prior to surgery. Significant changes in the patient condition since the History and Physical, not otherwise documented in primary service progress note: no. Potential Anesthesia issues that may suggest increased risk of complications or contraindication to planned procedure: none. Vitals Value Taken Time BP 150/71 09/25/21 1147 Pulse 67 09/25/21 1147 Resp 16 09/25/21 1147 Temp 36.6 ?C (97.9 ?F) 09/25/21 1147 SpO2 100 % 09/25/21 114 Outpatient Medications as of 09/25/2021 Medication Sig - calcium carbonate 600 mg-cholecalciferol 400 units (CALCIUM 600 + D) 600 mg(1,500mg) -400 unit tab Take 1 tablet by mouth once daily. - buPROPion (WELLBUTRIN) 75 mg tablet Take 75 mg by mouth twice daily. - omeprazole (PRILOSEC) 20 mg capsule Take 1 capsule by mouth once daily. - ARIPiprazole (ABILIFY) 5 mg tablet Take 7.5 mg by mouth once daily. - metoprolol succinate ER (TOPROL XL) 25 mg 24 hr tablet Take 1 tablet by mouth once daily. - QUEtiapine (SEROQUEL) 50 mg tablet Take 50 mg by mouth daily at bedtime. - sertraline 100 mg tablet Take 200 mg by mouth once daily. - clotrimazole (LOTRIMIN, CLOTRIM) 1 % cream Apply to affected area twice daily for 14 days. - miconazole (ZEASORB AF) 2 % powder Apply 1 application to affected area as needed for up to 14 days. - polyethylene glycol 3350 (MIRALAX, GLYCOLAX) 17 gram/dose powder Use as directed for Miralax / Gatorade Bowel Prep Kit - Bisacodyl (DULCOLAX) 5 mg tab Use as directed for Miralax / Gatorade Bowel Prep Kit - ibuprofen (MOTRIN ORAL) Take by mouth as needed. - melatonin 3 mg capsules Take 3 mg by mouth. At night - nystatin (MYCOSTATIN) cream Apply 1 application to affected area twice daily. - LORazepam (ATIVAN) 0.5 mg tab Take 0.5 mg by mouth once daily as needed. (Patient not taking: Reported on 09/20/2021) - nystatin (MYCOSTATIN) cream Apply 1 application to affected area twice daily. - Incontinence Pants, Reusable misc 5 Units continuous. (Patient not taking: Reported on 09/20/2021 ) Facility-Administered Medications as of 09/25/2021 Medication Dose Route Frequency - lactated ringers iv infusion 30 mL/hr INTRAVENOUS CONTINUOUS - denosumab 60 mg injection (PROLIA) 60 mg SUBCUTANEOUS Q 6 MONTH I have interviewed and examined the patient. I have reviewed the medical record and/or the pre-anesthesia evaluation, pertinent labs, and test results. This contains updated information obtained within 48 hours of Surgery/Procedure. SIGNATURE: Tony Roach MD PATIENT NAME: Augustine Pena DATE: September 25, 2021 TIME: 11:55 AM CSN: [id number] [facility] HISTORY PHYSICALon HISTORY PHYSICAL HNO ID: [id number] Author: Terrence Canas MD Service: General Surgery Author Type: Physician Type: HANDP Filed: 09/25/2021 12:09 PM Note Text: DEPARTMENT OF GASTROENTEROLOGY - NEW PATIENT/CONSULT ? REASON FOR VISIT Augustine Pena is a 65 year old female who is scheduled at the request of Mauro Krishnamurthy for No chief complaint on file.. My final recommendations will be communicated back to the requesting physician by the way of the shared medical record, fax, or via US Mail The patient was seen by 04/05/2016 for colonoscopy for family history of colon cancer in first-degree relative, personal history of colonic polyps,previous colonoscopy 03/31/2014, preparation was poor one 5 mm polyp tubular adenoma. ?The procedures were performed with MAC sedation. The procedure report has been reviewed and findings as follows: Impression: ? - One 5 mm polyp at the ileocecal valve. Resected and ? retrieved. ? - One 10 mm polyp at 35 cm proximal to the anus. ? Resected and retrieved. ? FINAL DIAGNOSIS 1. Ileocecal valve polyp, biopsy (A) - Tubular adenoma. 2. Colon polyp at 35 cm, biopsy (B) - Tubular adenoma. ? HISTORY OF PRESENT ILLNESS Augustine Pena is a 65 year old female with a past medical history pancreatitis, lung nodules, hypertension, hypercholesteremia, thoracic aortic aneurysm, thyroid goiter, anxiety depression, suicidal ideation. Patient reports family history of colon cancer mother diagnosed at 63 years. ? Who presents today for an evaluation of colon cancer screening. ? The patient denies change in bowel habits, black stool, rectal bleeding or abdominal pain. Having a bowel movement every couple days BM form BM. ? Omeprazole 20mg controls heartburn symptoms ? Symptoms difficulty swallowing solid - feels like it's getting stuck. Reports hers appetite has decreased. She reports food makes her feel sick when eating and this causes bloating. She feels like she does not digest the food well. She reports her symptoms remind her like she has pancreatitis. Denies fever or chills or weight loss. She reports she has a weight gain. ? PAST MEDICAL HISTORY PAST MEDICAL HISTORY Diagnosis Date - Anxiety ? - Depression ? - Hypercholesteremia ? - Hypertension ? - Lung nodules ? ? unchanged ct 03/24 - Pancreatitis 05/2019 - Thoracic aortic aneurysm (HCC) 09/23 ? followed by cardiology - Thyroid goiter ? ? needs follow up in 05/28 ? PAST SURGICAL HISTORY PAST SURGICAL HISTORY Procedure Laterality Date - COLONOSCOP W/ OR W/O BRS SPEC ? 03/31/14 ? Colonoscopy - COLONOSCOP W/ OR W/O BRS SPEC ? 04/05/16 ? Colonoscopy (MAC) - COLONOSCOPY ? ? - LAP CHOLECYSTECT/CHOLANGIOGRA PHY ? 10/25/2016 ? normal IOC - REVISE MEDIAN N/CARPAL TUNNEL SURG Right 1989 ? Carpal tunnel decomp - REVISE MEDIAN N/CARPAL TUNNEL SURG Left 12/26/2017 ? Left carpal tunnel release - TOTAL ABDOM HYSTERECTOMY ? 10/01/2013 ? CURRENT MEDICATIONS Current Outpatient Medications Medication Sig Dispense Refill - ibuprofen (MOTRIN ORAL) Take by mouth as needed. ? ? - melatonin 3 mg capsules Take 3 mg by mouth. At night ? ? - buPROPion (WELLBUTRIN) 75 mg tablet Take 75 mg by mouth twice daily. ? ? ? - omeprazole (PRILOSEC) 20 mg capsule Take 1 capsule by mouth once daily. 30 capsule 11 - LORazepam (ATIVAN) 0.5 mg tab Take 0.5 mg by mouth once daily as needed. ? ? - Incontinence Pants, Reusable misc 5 Units continuous. 6 Each 2 - metoprolol succinate ER (TOPROL XL) 25 mg 24 hr tablet Take 1 tablet by mouth once daily. ? ? - sertraline 100 mg tablet Take 200 mg by mouth once daily. ? ? ? - polyethylene glycol 3350 (MIRALAX, GLYCOLAX) 17 gram/dose powder Use as directed for Miralax / Gatorade Bowel Prep Kit 238 g 0 - Bisacodyl (DULCOLAX) 5 mg tab Use as directed for Miralax / Gatorade Bowel Prep Kit 4 tablet 0 - magnesium citrate solution Take 296 mL by mouth one time only for 1 dose. 296 mL 0 - nystatin (MYCOSTATIN) cream Apply 1 application to affected area twice daily. 45 g 0 - ARIPiprazole (ABILIFY) 5 mg tablet Take 7.5 mg by mouth once daily. (Patient not taking: Reported on 06/19/2021 ) ? ? - nystatin (MYCOSTATIN) cream Apply 1 application to affected area twice daily. (Patient not taking: Reported on 12/19/2020 ) 45 g 1 - QUEtiapine (SEROQUEL) 50 mg tablet Take 50 mg by mouth daily at bedtime. (Patient not taking: Reported on 05/24/2021 ) ? ? ? No current facility-administered medications for this visit. ? ? ALLERGIES ALLERGIES No Known Allergies ? SOCIAL HISTORY Social History ? Tobacco Use - Smoking status: Former Smoker ? ? Packs/day: 0.50 ? ? Years: 12.00 ? ? Pack years: 6.00 ? ? Types: Cigarettes ? ? Quit date: 05/29/2011 ? ? Years since quittin.0 - Smokeless tobacco: Former User Substance Use Topics - Alcohol use: Not Currently - Drug use: N (more content not included)... [facility] NURSING PROGon 09-25-2021 NURSING PROG HNO ID: [id number] Author: Rosanna Valdez RN Service: Nursing Author Type: Registered Nurse Type: Nursing Progress Note Filed: 09/25/2021 2:05 PM Note Text: Nursing Progress Note Patient Name: Augustine Pena Patient Location: Room/bed info not found at bedside talking with pt, pt denies pain, VSS, passing flatus This note was completed by: Rosanna Wagner [facility] SURGICAL PATHOLOGYon 022 SURGICAL PATHOLOGY Specimen originated from [facility] Specimen #: [id number] Submitting Physician: Terrence Canas M.D. FINAL DIAGNOSIS 1. Cecum polyp, polypectomy (A) - Tubular adenoma. 2. Esophagus, distal, biopsy (B) - Squamous epithelium with features of reflux. - Inflamed gastric cardia-type mucosa. - No evidence of intestinal metaplasia or dysplasia. 3. Esophagus, mid, biopsy (C) - Squamous epithelium with no significant diagnostic alteration. 4. Stomach, antrum, biopsy (D) - Gastric antral mucosa with reactive change. - No morphological evidence of Helicobacter pylori organisms. ALISON DIAZ MD (Electronic Signature) SPECIMEN SUBMITTED A: CECUM POLYP B: DISTAL ESOPHAGUS, BIOPSY C: MID ESOPHAGUS, BIOPSY D: GASTRIC/ANTRAL, BIOPSY CLINICAL DATA N/A, LMP: NA, GERD D: R/O H. PYLORI GROSS DESCRIPTION A. Received in formalin are multiple pieces of mendez, soft tissue aggregating to 1.7 x 0.4 x 0.3 cm. Totally submitted in one cassette. Gross examination performed at [facility], [address] [place], [place] [id number] BC 09/25/2021 5:42:08 PM B. Received in formalin is one piece of mendez, soft tissue measuring 0.3 x 0.2 x 0.1 cm. Totally submitted in one cassette. C. Received in formalin is one piece of mendez, soft tissue measuring 0.4 x 0.2 x 0.1 cm. Totally submitted in one cassette. D. Received in formalin is one piece of mendez, soft tissue measuring 0.3 x 0.2 x 0.2 cm. Totally submitted in one cassette. Gross examination performed at [facility], [address] [place] [address] JTS 09/25/2021 8:11:51 PM Date of Report: 09/27/2021 Date of Procedure: 09/25/2021 Date of Receipt: 09/25/2021 Submitted by: Terrence Canas M.D. Location: [facility] Diagnostic interpretation performed at [facility], [address] [place] [address]. [place] Number: [id number] [facility] XR Knee - right 4 Viewson * * *Final Report* * * DATE OF EXAM: Nov 18 2020 4:06PM WOX 5203 - XR KNEE 4V AP/PA BOTH+LAT/ARMANDO RT / PROCEDURE REASON: Acute pain of right knee * * * * Physician Interpretation * * * * EXAMINATION: XR KNEE 4V AP/PA BOTH+LAT/ARMANDO RT PATIENT/TECHNOLOGIST PROVIDED HISTORY: pt states pain for 10 years and getting worse, pain in entire knee but mostly anterior area no inj CLINICAL INFORMATION: 65 years old Female with Acute pain of right knee TECHNIQUE: XR KNEE 4V AP/PA BOTH+LAT/ARMANDO RT Laterality: RIGHT Number of different views (projections): 4 COMPARISON: Right knee radiographs 10/21/2017 RESULT: Tricompartmental osteoarthritis with tricompartmental subchondral cystic change and marginal osteophytes. Severe medial compartment joint space narrowing with jmyx-eh-zyge contact and articular surface remodeling, progressed since 10/21/2017. Genu varus and lateral tibial translation. Moderate joint effusion. No fracture identified. Osteopenia. DIVISION OF RADIOLOGY Provider, [facility] - 11/18/2020 * * *Final Report* * * DATE OF EXAM: Nov 18 2020 4:06PM WOX 5203 - XR KNEE 4V AP/PA BOTH+LAT/ARMANDO RT / PROCEDURE REASON: Acute pain of right knee * * * * Physician Interpretation * * * * EXAMINATION: XR KNEE 4V AP/PA BOTH+LAT/ARMANDO RT PATIENT/TECHNOLOGIST PROVIDED HISTORY: pt states pain for 10 years and getting worse, pain in entire knee but mostly anterior area no inj CLINICAL INFORMATION: 65 years old Female with Acute pain of right knee TECHNIQUE: XR KNEE 4V AP/PA BOTH+LAT/ARMANDO RT Laterality: RIGHT Number of different views (projections): 4 COMPARISON: Right knee radiographs 10/21/2017 RESULT: Tricompartmental osteoarthritis with tricompartmental subchondral cystic change and marginal osteophytes. Severe medial compartment joint space narrowing with qsmy-ie-zpgb contact and articular surface remodeling, progressed since 10/21/2017. Genu varus and lateral tibial translation. Moderate joint effusion. No fracture identified. Osteopenia. IMPRESSION IMPRESSION: Severe right knee osteoarthritis progressed since 10/21/2017. Moderate joint effusion. Carbide Grinder: PSCB Transcribe Date/Time: Nov 18 2020 4:09P Dictated by : HOLLY MARAVILLA DO This examination was interpreted and the report reviewed and electronically signed by: HOLLY MARAVILLA DO on Nov 18 2020 4:13PM EST [facility] Radiology Study observation (narrative) Hossein garcia [facility] XR Knee - right 4 ViewsOrder ed By: [facility] Provider on 11-18-2020 [facility] CNCOon 10-04-2017 [facility] Letter Text [facility] [id number] [place] [address]Sfnj: [phone] SsvckqwKevin Houston MDFebruary 2017Padena [address]WooHas[facility] [id number] Augustine Pena,We missed seeing you for your scheduled appointment with Dr. Houston on10/02/17.Our goal is to offer the best possible care to our patients, so we areconcerned when you are unable to keep a scheduled appointment.Please call us at [phone] so that we can reschedule your appointment fora day and time that will work for you.If you find it difficult to keep your appointment, please notify our officeat least 24 hours in advance so that we may reschedule your appointment.We are glad that you [facility] for yourcardiovascular needs and hope to continue serving you in the future.Sincerely,Kevin Houston MD(Signed electronically to expedite mailing) [facility] Vital Signs Date Time Vital Sign Value Performing Clinician Facility 03-05-2025 13:55-0400 Body mass index (BMI) [Ratio] 44.59 kg/m2 Patrizia Suppan DYE COLORIST DYER.GROUNDS/MAINTENANCE SPECIALIST Work Phone: [facility] 03-05-2025 13:55-0400 Body weight 107.05 kg Patrizia Suppan DYE COLORIST DYER.GROUNDS/MAINTENANCE SPECIALIST Work Phone: [facility] 03-05-2025 13:55-0400 Diastolic blood pressure 77 mm[Hg] Patrizia Suppan DYE COLORIST DYER.GROUNDS/MAINTENANCE SPECIALIST Work Phone: [facility] 03-05-2025 13:55-0400 Heart rate 60 /min Patrizia Suppan DYE COLORIST DYER.GROUNDS/MAINTENANCE SPECIALIST Work Phone: [facility] 03-05-2025 13:55-0400 SaO2% (BldA) [Mass fraction] 99 % Patrizia Suppan DYE COLORIST DYER.GROUNDS/MAINTENANCE SPECIALIST Work Phone: [facility] 03-05-2025 13:55-0400 Systolic blood pressure 127 mm[Hg] Patrizia Suppan DYE COLORIST DYER.GROUNDS/MAINTENANCE SPECIALIST Work Phone: [facility] 10-22-2024 14:05-0400 Body mass index (BMI) [Ratio] 42.06 kg/m2 Blanche Rogers MD Work Phone: [facility] 10-22-2024 14:05-0400 Body temperature 97.59 [degF] Blanche Rogers MD Work Phone: [facility] 10-22-2024 14:05-0400 Body weight 100.97 kg Blanche Rogers MD Work Phone: [facility] 10-22-2024 14:05-0400 Diastolic blood pressure 71 mm[Hg] Blanche Rogers MD Work Phone: [facility] 10-22-2024 14:05-0400 Heart rate 59 /min Blanche Rogers MD Work Phone: [facility] 10-22-2024 14:05-0400 SaO2% (BldA) [Mass fraction] 100 % Blanche Rogers MD Work Phone: [facility] 10-22-2024 14:05-0400 Systolic blood pressure 117 mm[Hg] Blanche Rogers MD Work Phone: [facility] 10-09-2024 10:46-0500 Body height 154.9 cm Blanche Rogers MD Work Phone: [facility] 10-09-2024 10:46-0500 Body mass index (BMI) [Ratio] 42.02 kg/m2 Blanche Rogers MD Work Phone: [facility] 10-09-2024 10:46-0500 Body weight 100.88 kg Blanche Rogers MD Work Phone: [facility] 10-09-2024 10:46-0500 Diastolic blood pressure 84 mm[Hg] Blanche Rogers MD Work Phone: [facility] 10-09-2024 10:46-0500 Heart rate 58 /min Blanche Rogers MD Work Phone: [facility] 10-09-2024 10:46-0500 Respiratory rate 19 /min Blanche Rogers MD Work Phone: [facility] 10-09-2024 10:46-0500 SaO2% (BldA) [Mass fraction] 99 % Blanche Rogers MD Work Phone: [facility] 10-09-2024 10:46-0500 Systolic blood pressure 132 mm[Hg] Blanche Rogers MD Work Phone: [facility] 05-22-2024 10:52-0400 Body height 154.9 cm Radha Willis MD Work Phone: [facility] 05-22-2024 10:52-0400 Body mass index (BMI) [Ratio] 41.19 kg/m2 Radha Willis MD Work Phone: [facility] 05-22-2024 10:52-0400 Body weight 98.88 kg Radha Willis MD Work Phone: [facility] 05-22-2024 10:52-0400 Diastolic blood pressure 69 mm[Hg] Radha Willis MD Work Phone: [facility] 05-22-2024 10:52-0400 Heart rate 51 /min Radha Willis MD Work Phone: [facility] 05-22-2024 10:52-0400 Systolic blood pressure 138 mm[Hg] Radha Willis MD Work Phone: [facility] 05-15-2024 10:48-0400 Diastolic blood pressure 70 mm[Hg] Mauro Krishnamurthy MD Work Phone: [facility] 05-15-2024 10:48-0400 Systolic blood pressure 130 mm[Hg] Mauro Krishnamurthy MD Work Phone: [facility] 05-15-2024 10:08-0400 Body height 154.9 cm Mauro Krishnamurthy MD Work Phone: [facility] 05-15-2024 10:08-0400 Body mass index (BMI) [Ratio] 40.62 kg/m2 Mauro Krishnamurthy MD Work Phone: [facility] 05-15-2024 10:08-0400 Body weight 97.52 kg Mauro Krishnamurthy MD Work Phone: [facility] 05-15-2024 10:08-0400 Heart rate 58 /min Mauro Krishnamurthy MD Work Phone: [facility] 10-09-2023 11:10-0500 Body height 154.9 cm Joaquin Cantrell MD Work Phone: [facility] 10-09-2023 11:10-0500 Body weight 95.25 kg Joaquin Cantrell MD Work Phone: [facility] 10-09-2023 11:10-0500 Diastolic blood pressure 68 mm[Hg] Joaquin Cantrell MD Work Phone: [facility] 10-09-2023 11:10-0500 Heart rate 56 /min Joaquin Cantrell MD Work Phone: [facility] 10-09-2023 11:10-0500 SaO2% (BldA) [Mass fraction] 99 % Joaquin Cantrell MD Work Phone: [facility] 10-09-2023 11:10-0500 Systolic blood pressure 106 mm[Hg] Joaquin Cantrell MD Work Phone: [facility] 06-26-2023 14:36-0500 Body weight 99.79 kg Mauro Krishnamurthy MD Work Phone: [facility] 06-26-2023 14:36-0500 Diastolic blood pressure 82 mm[Hg] Mauro Krishnamurthy MD Work Phone: [facility] 06-26-2023 14:36-0500 Heart rate 64 /min Mauro Krishnamurthy MD Work Phone: [facility] 06-26-2023 14:36-0500 SaO2% (BldA) [Mass fraction] 100 % Mauro Krishnamurthy MD Work Phone: [facility] 06-26-2023 14:36-0500 Systolic blood pressure 124 mm[Hg] Mauro Krishnamurthy MD Work Phone: [facility] 03-02-2023 16:10-0400 Body temperature 98.8 [degF] Dr. Mauro Krishnamurthy Work Phone: [facility] 03-02-2023 16:10-0400 Diastolic blood pressure 88 mm[Hg] Dr. Mauro Krishnamurthy Work Phone: 8(012)758-060102 [place] [address] 03-02-2023 16:10-0400 Heart rate 81 /min Dr. Mauro Krishnamurthy Work Phone: 3(248)174-523902 [place] [address] 03-02-2023 16:10-0400 Respiratory rate 18 /min Dr. Mauro Krishnamurthy Work Phone: 4(693)032-596102 [place] [address] 03-02-2023 16:10-0400 SaO2% (BldA) [Mass fraction] 93 % Dr. Mauro Krishnamurthy Work Phone: 0(112)621-041802 [place] [address] 03-02-2023 16:10-0400 Systolic blood pressure 142 mm[Hg] Dr. Mauro Krishnamurthy Work Phone: 4(217)766-942802 [place] [address] 03-02-2023 03:26-0400 Body mass index (BMI) [Ratio] 46.5 kg/m2 Dr. Mauro Krishnamurthy Work Phone: 1(975)722-187002 [place] [address] 03-02-2023 03:26-0400 Body weight 111.[address] Mauro Krishnamurthy Work Phone: 1(803)615-199402 [place] [address] 02-27-2023 13:31-0400 Body height 154.[address] Mauro Krishnamurthy Work Phone: 5(207)948-822902 [place] [address] 02-25-2023 00:02-0400 Diastolic blood pressure 91 mm[Hg] Dr. Mauro Krishnamurthy Work Phone: 7(593)213-232302 [place] [address] 02-25-2023 00:02-0400 Heart rate 83 /min Dr. Mauro Krishnamurthy Work Phone: 9(039)658-232102 [place] [address] 02-25-2023 00:02-0400 Respiratory rate 20 /min Dr. Mauro Krishnamurthy Work Phone: 3(861)059-307802 [place] [address] 02-25-2023 00:02-0400 SaO2% (BldA) [Mass fraction] 94 % Dr. Mauro Krishnamurthy Work Phone: 7(184)544-452502 [place] [address] 02-25-2023 00:02-0400 Systolic blood pressure 174 mm[Hg] Dr. Mauro Krishnamurthy Work Phone: 2(309)961-976802 [place] [address] 02-24-2023 20:43-0400 Body temperature 98.3 [degF] Dr. Mauro Krishnamurthy Work Phone: 1(534)040-900502 [place] [address] 02-24-2023 16:11-0400 Body mass index (BMI) [Ratio] 45.8 kg/m2 Dr. Mauro Krishnamurthy Work Phone: 2(466)552-117502 [place] [address] 02-24-2023 16:11-0400 Body weight 110.[address] Mauro Krishnamurthy Work Phone: 6(621)051-929202 [place] [address] 02-24-2023 16:04-0400 Body height 154.[address] Mauro Krishnamurthy Work Phone: 6(127)469-725802 [place] [address] 02-23-2023 12:07-0400 Body height 154.[address] Mauro Krishnamurthy Work Phone: 6(381)339-599502 [place] [address] 02-23-2023 12:07-0400 Body weight 107.[address] Mauro Krishnamurthy Work Phone: 5(830)763-733002 [place] [address] 02-23-2023 12:06-0400 Body temperature 97.7 [degF] Dr. Mauro Krishnamurthy Work Phone: 9(091)968-206602 [place] [address] 02-23-2023 12:06-0400 Diastolic blood pressure 100 mm[Hg] Dr. Mauro Krishnamurthy Work Phone: 2(957)695-184802 [place] [address] 02-23-2023 12:06-0400 Heart rate 69 /min Dr. Mauro Krishnamurthy Work Phone: 4(796)066-557302 [place] [address] 02-23-2023 12:06-0400 Respiratory rate 16 /min Dr. Mauro Krishnamurthy Work Phone: 4(224)776-391702 [place] [address] 02-23-2023 12:06-0400 SaO2% (BldA) [Mass fraction] 94 % Dr. Mauro Krishnamurthy Work Phone: 4(986)985-276802 [place] [address] 02-23-2023 12:06-0400 Systolic blood pressure 143 mm[Hg] Dr. Mauro Krishnamurthy Work Phone: 6(455)925-707702 [place] [address] 02-22-2023 18:39-0400 Body mass index (BMI) [Ratio] 44.9 kg/m2 Dr. Maruo Krishnamurthy Work Phone: 0(336)826-436464 [place] [address] 02-22-2023 16:50-0400 Body temperature 97.6 [degF] Dr. Mauro Krishnamurthy Work Phone: 6(610)176-936502 [place] [address] 02-22-2023 16:50-0400 Diastolic blood pressure 87 mm[Hg] Dr. Mauro Krishnamurthy Work Phone: 5(366)077-933902 [place] [address] 02-22-2023 16:50-0400 Heart rate 64 /min Dr. Mauro Krishnamurthy Work Phone: 0(140)938-905602 [place] [address] 02-22-2023 16:50-0400 Respiratory rate 14 /min Dr. Mauro Krishnamurthy Work Phone: 3(638)312-709802 [place] [address] 02-22-2023 16:50-0400 SaO2% (BldA) [Mass fraction] 98 % Dr. Mauro Krishnamurthy Work Phone: 4(111)966-772802 [place] [address] 02-22-2023 16:50-0400 Systolic blood pressure 177 mm[Hg] Dr. Mauro Krishnamurthy Work Phone: 4(887)804-880402 [place] [address] 02-22-2023 11:40-0400 Body height 154.[address] Mauro Krishnamurthy Work Phone: 2(892)758-444002 [place] [address] 02-22-2023 11:40-0400 Body mass index (BMI) [Ratio] 46.6 kg/m2 Dr. Mauro Krishnamurthy Work Phone: 3(683)880-276602 [place] [address] 02-22-2023 11:40-0400 Body weight [address] Mauro Krishnamurthy Work Phone: [facility] 02-18-2023 13:31-0400 Body height 154.9 cm Mauro Krishnamurthy MD Work Phone: [facility] 02-18-2023 13:31-0400 Body weight 110.77 kg Mauro Krishnamurthy MD Work Phone: [facility] 02-18-2023 13:31-0400 Diastolic blood pressure 78 mm[Hg] Mauro Krishnamurthy MD Work Phone: [facility] 02-18-2023 13:31-0400 Heart rate 71 /min Mauro Krishnamurthy MD Work Phone: [facility] 02-18-2023 13:31-0400 SaO2% (BldA) [Mass fraction] 96 % Mauro Krishnamurthy MD Work Phone: [facility] 02-18-2023 13:31-0400 Systolic blood pressure 138 mm[Hg] Mauro Krishnamurthy MD Work Phone: [facility] 02-11-2023 11:18-0400 Inhaled oxygen flow rate 1 L/min Dr. Mauro Krishnamurthy Work Phone: [facility] 02-11-2023 11:18-0400 SaO2% (BldA) [Mass fraction] 96 % Dr. Mauro Krishnamurthy Work Phone: [facility] 02-11-2023 09:58-0400 Body temperature 98.2 [degF] Dr. Mauro Krishnamurthy Work Phone: 6(111)234-887164 [place] [address] 02-11-2023 09:58-0400 Diastolic blood pressure 98 mm[Hg] Dr. Mauro Krishnamurthy Work Phone: 6(098)810-766099 [address] 02-11-2023 09:58-0400 Heart rate 70 /min Dr. Mauro Krishnamurthy Work Phone: [facility] 02-11-2023 09:58-0400 Respiratory rate 16 /min Dr. Mauro Krishnamurthy Work Phone: [facility] 02-11-2023 09:58-0400 Systolic blood pressure 137 mm[Hg] Dr. Mauro Krishnamurthy Work Phone: [facility] 02-06-2023 15:15-0400 Body weight 114.[address] Mauro Krishnamurthy Work Phone: 1(511)883-736802 [place] [address] 02-04-2023 08:33-0400 Body mass index (BMI) [Ratio] 47.8 kg/m2 Dr. Mauro Krishnamurthy Work Phone: 6(034)022-122664 [place] [address] 02-04-2023 07:47-0400 Body temperature 98.2 [degF] [facility] 02-04-2023 07:47-0400 Diastolic blood pressure 85 mm[Hg] [facility] 02-04-2023 07:47-0400 Heart rate 79 /min [facility] 02-04-2023 07:47-0400 Respiratory rate 16 /min [facility] 02-04-2023 07:47-0400 SaO2% (BldA) [Mass fraction] 95 % [facility] 02-04-2023 07:47-0400 Systolic blood pressure 180 mm[Hg] [facility] 02-04-2023 05:04-0400 Body height 154.[address] [facility] 02-04-2023 05:04-0400 Body mass index (BMI) [Ratio] 46.9 kg/m2 [facility] 02-04-2023 05:04-0400 Body weight 112.[address] [facility] 12-12-2022 21:48-0400 Heart rate 73 /min [facility] 12-12-2022 21:48-0400 Respiratory rate 19 /min [facility] 12-12-2022 21:48-0400 SaO2% (BldA) [Mass fraction] 96 % [facility] 12-12-2022 17:28-0400 Body height 154.[address] [facility] 12-12-2022 17:28-0400 Body mass index (BMI) [Ratio] 48.6 kg/m2 [facility] 12-12-2022 17:28-0400 Body temperature 98.9 [degF] [facility] 12-12-2022 17:28-0400 Body weight 116.[address] [facility] 12-12-2022 17:28-0400 Diastolic blood pressure 86 mm[Hg] [facility] 12-12-2022 17:28-0400 Systolic blood pressure 155 mm[Hg] [facility] 12-12-2022 14:44-0400 Body height 154.9 cm Mauro Krishnamurthy MD Work Phone: [facility] 12-12-2022 14:44-0400 Body weight 113.85 kg Mauro Krishnamurthy MD Work Phone: [facility] 12-12-2022 14:44-0400 Diastolic blood pressure 92 mm[Hg] Mauro Krishnamurthy MD Work Phone: [facility] 12-12-2022 14:44-0400 Heart rate 83 /min Mauro Krishnamurthy MD Work Phone: [facility] 12-12-2022 14:44-0400 SaO2% (BldA) [Mass fraction] 97 % Mauro Krishnamurthy MD Work Phone: [facility] 12-12-2022 14:44-0400 Systolic blood pressure 136 mm[Hg] Mauro Krishnamurthy MD Work Phone: [facility] 11-22-2022 12:55-0400 Body temperature 97.81 [degF] Marisol Praisler-Wood DYE COLORIST DYER.GROUNDS/MAINTENANCE SPECIALIST Work Phone: [facility] 11-22-2022 12:55-0400 Diastolic blood pressure 78 mm[Hg] Marisol Praisler-Wood DYE COLORIST DYER.GROUNDS/MAINTENANCE SPECIALIST Work Phone: [facility] 11-22-2022 12:55-0400 Heart rate 83 /min Marisol Praisler-Wood DYE COLORIST DYER.GROUNDS/MAINTENANCE SPECIALIST Work Phone: [facility] 11-22-2022 12:55-0400 Respiratory rate 16 /min Marisol Praisler-Wood DYE COLORIST DYER.GROUNDS/MAINTENANCE SPECIALIST Work Phone: [facility] 11-22-2022 12:55-0400 SaO2% (BldA) [Mass fraction] 98 % Marisol Praisler-Wood DYE COLORIST DYER.GROUNDS/MAINTENANCE SPECIALIST Work Phone: [facility] 11-22-2022 12:55-0400 Systolic blood pressure 126 mm[Hg] Marisol Praisler-Wood DYE COLORIST DYER.GROUNDS/MAINTENANCE SPECIALIST Work Phone: [facility] 10-08-2022 14:36-0500 Diastolic blood pressure 82 mm[Hg] Leonidas Sun MD Work Phone: [facility] 10-08-2022 14:36-0500 Systolic blood pressure 136 mm[Hg] Leonidas Sun MD Work Phone: [facility] 10-08-2022 14:24-0500 Heart rate 77 /min Leonidas Sun MD Work Phone: [facility] 10-08-2022 14:24-0500 SaO2% (BldA) [Mass fraction] 99 % Leonidas Sun MD Work Phone: [facility] 09-12-2022 13:13-0500 Body weight 106.14 kg Mauro Krishnamurthy MD Work Phone: [facility] 09-12-2022 13:13-0500 Diastolic blood pressure 72 mm[Hg] Mauro Krishnamurthy MD Work Phone: [facility] 09-12-2022 13:13-0500 Heart rate 69 /min Mauro Krishnamurthy MD Work Phone: [facility] 09-12-2022 13:13-0500 SaO2% (BldA) [Mass fraction] 95 % Mauro Krishnamurthy MD Work Phone: [facility] 09-12-2022 13:13-0500 Systolic blood pressure 112 mm[Hg] Mauro Krishnamurthy MD Work Phone: [facility] 08-01-2022 14:20-0500 Body weight 103.78 kg Mauro Krishnamurthy MD Work Phone: [facility] 08-01-2022 14:20-0500 Diastolic blood pressure 82 mm[Hg] Mauro Krishnamurthy MD Work Phone: [facility] 08-01-2022 14:20-0500 Heart rate 64 /min Mauro Krishnamurthy MD Work Phone: [facility] 08-01-2022 14:20-0500 Respiratory rate 18 /min Mauro Krishnamurthy MD Work Phone: [facility] 08-01-2022 14:20-0500 Systolic blood pressure 124 mm[Hg] Mauro Krishnamurthy MD Work Phone: [facility] 07-04-2022 13:40-0500 Body height 154.9 cm Mauro Krishnamurthy MD Work Phone: [facility] 07-04-2022 13:40-0500 Body weight 97.07 kg Mauro Krishnamurthy MD Work Phone: [facility] 07-04-2022 13:40-0500 Diastolic blood pressure 68 mm[Hg] Mauro Krishnamurthy MD Work Phone: [facility] 07-04-2022 13:40-0500 Heart rate 81 /min Mauro Krishnamurthy MD Work Phone: [facility] 07-04-2022 13:40-0500 SaO2% (BldA) [Mass fraction] 96 % Mauro Krishnamurthy MD Work Phone: [facility] 07-04-2022 13:40-0500 Systolic blood pressure 116 mm[Hg] Mauro Krishnamurthy MD Work Phone: [facility] 05-31-2022 11:29-0400 Diastolic blood pressure 62 mm[Hg] NA Whiting PA-C Work Phone: [facility] 05-31-2022 11:29-0400 Heart rate 77 /min NA Whiting PA-C Work Phone: [facility] 05-31-2022 11:29-0400 Respiratory rate 18 /min NA Whiting PA-C Work Phone: [facility] 05-31-2022 11:29-0400 SaO2% (BldA) [Mass fraction] 94 % NA Whiting PA-C Work Phone: [facility] 05-31-2022 11:29-0400 Systolic blood pressure 106 mm[Hg] NA Whiting PA-C Work Phone: [facility] 04-13-2022 10:40-0400 Diastolic blood pressure 95 mm[Hg] [facility] Work Phone: 04-13-2022 10:40-0400 Systolic blood pressure 163 mm[Hg] [facility] Work Phone: 04-13-2022 10:38-0400 Body height 154.[address] [facility] Work Phone: 04-13-2022 10:38-0400 Body mass index (BMI) [Ratio] 42.7 kg/m2 [facility] Work Phone: 04-13-2022 10:38-0400 Body temperature 98.2 [degF] [facility] Work Phone: 04-13-2022 10:38-0400 Body weight 102.[address] [facility] Work Phone: 04-13-2022 10:38-0400 Heart rate 66 /min [facility] Work Phone: 04-13-2022 10:38-0400 Respiratory rate 18 /min [facility] Work Phone: 04-13-2022 10:38-0400 SaO2% (BldA) [Mass fraction] 93 % [facility] Work Phone: 11-17-2021 16:12-0400 Body weight 99.79 kg Mauro Krishnamurthy MD Work Phone: [facility] 11-17-2021 16:12-0400 Diastolic blood pressure 72 mm[Hg] Mauro Krishnamurthy MD Work Phone: [facility] 11-17-2021 16:12-0400 Heart rate 56 /min Mauro Krishnamurthy MD Work Phone: [facility] 11-17-2021 16:12-0400 Systolic blood pressure 118 mm[Hg] Mauro Krishnamurthy MD Work Phone: [facility] 11-07-2021 10:45-0400 Body temperature 95.6 [degF] Dr. Mauro Krishnamurthy Work Phone: [facility] Work Phone: 11-07-2021 10:45-0400 Diastolic blood pressure 81 mm[Hg] Dr. Mauro Krishnamurthy Work Phone: [facility] Work Phone: 11-07-2021 10:45-0400 Heart rate 59 /min Dr. Mauro Krishnamurthy Work Phone: [facility] Work Phone: 11-07-2021 10:45-0400 Respiratory rate 22 /min Dr. Mauro Krishnamurthy Work Phone: [facility] Work Phone: 11-07-2021 10:45-0400 SaO2% (BldA) [Mass fraction] 93 % Dr. Mauro Krishnamurthy Work Phone: [facility] Work Phone: 11-07-2021 10:45-0400 Systolic blood pressure 133 mm[Hg] Dr. Mauro Krishnamurthy Work Phone: [facility] Work Phone: 11-01-2021 08:29-0400 Body height 154.[address] Mauro Krishnamurthy Work Phone: [facility] Work Phone: 11-01-2021 08:29-0400 Body weight 101.[address] Mauro Krishnamurthy Work Phone: [facility] Work Phone: 10-18-2021 12:20-0500 Body mass index (BMI) [Ratio] 41.7 kg/m2 Dr. Mauro Krishnamurthy Work Phone: [facility] Work Phone: 10-18-2021 10:28-0500 Body temperature 97.5 [degF] Dr. Mauro Krishnamurthy Work Phone: [facility] Work Phone: 10-18-2021 10:28-0500 Diastolic blood pressure 66 mm[Hg] Dr. Mauro Krishnamurthy Work Phone: [facility] Work Phone: 10-18-2021 10:28-0500 Heart rate 82 /min Dr. Mauro Krishnamurthy Work Phone: [facility] Work Phone: 10-18-2021 10:28-0500 Respiratory rate 18 /min Dr. Mauro Krishnamurthy Work Phone: [facility] Work Phone: 10-18-2021 10:28-0500 SaO2% (BldA) [Mass fraction] 96 % Dr. Mauro Krishnamurthy Work Phone: [facility] Work Phone: 10-18-2021 10:28-0500 Systolic blood pressure 121 mm[Hg] Dr. Mauro Krishnamurthy Work Phone: [facility] Work Phone: 10-17-2021 13:27-0500 Body weight 100.[address] Mauro Krishnamurthy Work Phone: [facility] Work Phone: 10-16-2021 15:59-0500 Body mass index (BMI) [Ratio] 41.9 kg/m2 Dr. Mauro Krishnamurthy Work Phone: [facility] Work Phone: Encounters Encounter Date Encounter Type Care Provider Facility Start: 05-31-2025 End: 05-31-2025 ambulatory MAURO KRISHNAMURTHY Facility:[facility] Start: 04-27-2025 End: 04-27-2025 Refill Mauro Krishnamurthy MD Work Phone: [facility] Comment on above: Refill Request Start: 03-30-2025 End: 03-30-2025 Refill Mauro Krishnamurthy MD Work Phone: [facility] Comment on above: Refill Request Start: 03-05-2025 End: 03-05-2025 Patient encounter procedure Patrizia Pabon DYE COLORIST DYER.GROUNDS/MAINTENANCE SPECIALIST Work Phone: [facility] Comment on above: Hypercholesteremia ( Primary Dx); Chronic recurrent pancreatitis (HCC); 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HCC); Obesity, Class III, BMI 40-49.9 (morbid obesity) (HCC); Essential hypertension; PMR (polymyalgia rheumatica) (HCC); Chronic pancreatitis, unspecified pancreatitis type (HCC); Nontoxic multinodular goiter; Primary osteoarthritis of right knee; Age-related osteoporosis without current pathological fracture; Wellness examination Start: 03-05-2025 End: 03-05-2025 Patient encounter status Patrizia Pabon SIRIA Work Phone: [facility] Start: 03-05-2025 End: 03-05-2025 ambulatory MAURO KRISHNAMURTHY Facility:[facility] Start: 03-05-2025 Encounter for genera l adult medical examination without abnormal findings PATRIZIA PABON [facility] Start: 02-03-2025 End: 02-03-2025 ambulatory Dee Dee Camacho [facility] Start: 02-03-2025 End: 02-03-2025 Patient encounter procedure Dee Dee Doug [facility] Comment on above: Population Health Na vigation Outreach ([place] ) Start: 01-05-2025 End: 02-05-2025 Refill Mauro Krishnamurthy MD Work Phone: [facility] [place] Comment on above: Refill Request Start: 12-24-2024 End: 12-24-2024 ambulatory Dee Dee Camacho MA [facility] Start: 12-24-2024 End: 12-24-2024 Patient encounter procedure Dee Dee Doug PALUMBO [facility] Comment on above: Population Health Na vigation Outreach ([place] ) Start: 12-11-2024 ambulatory Milan Massey Facility :[facility] Start: 11-24-2024 End: 11-24-2024 ambulatory Dee Dee Doug [place] [facility] Start: 11-24-2024 End: 11-24-2024 Patient encounter procedure Dee Dee Doug [facility] Comment on above: Population Health Na vigation Outreach ([place] ) Start: 10-29-2024 End: 10-29-2024 Follow-up encounter Blanche Rogers MD Work Phone: Endocrinology Comment on above: Results (Biopsy resu lts) Start: 10-22-2024 End: 10-22-2024 ambulatory MAURO KRISHNAMURTHY Facility:[facility] Start: 10-22-2024 End: 10-22-2024 Patient encounter procedure Blanche Rogers MD Work Phone: Endocrinology Comment on above: Thyroid nodule (Prim todd Dx) Start: 10-16-2024 End: 10-16-2024 Refill Mauro Krishnamurthy MD Work Phone: [facility] [place] Comment on above: Refill Request Start: 10-10-2024 End: 10-12-2024 Follow-up encounter Blanche Rogers MD Work Phone: Endocrinology Start: 10-09-2024 End: 10-09-2024 ambulatory BLANCHE ROGERS Facility:[facility] Start: 10-09-2024 End: 10-09-2024 Patient encounter procedure Blanche Rogers MD Work Phone: Endocrinology Comment on above: Thyroid nodule (Prim todd Dx) Start: 09-08-2024 End: 09-08-2024 Patient Outreach Mariajose Duval RN Work Phone: [employer] [facility] Comment on above: Initial phone contac t for Transitional Care Management Start: 08-26-2024 End: 08-26-2024 Telephone encounter Mauro Krishnamurthy MD Work Phone: [facility] [place] Comment on above: Patient Update (Admi t[facility] to [facility]) Start: 08-25-2024 ambulatory Mauro Krishnamurthy Facility:[facility] Start: 08-25-2024 End: 08-28-2024 Evaluation and management of inpatient Ranjeet Escobar Facility:[facility] Start: 07-24-2024 End: 07-24-2024 Refill Mauro Krishnamurthy MD Work Phone: [facility] [place] Comment on above: Refill Request Start: 06-30-2024 End: 07-01-2024 Telephone encounter Mauro Krishnamurthy MD Work Phone: [facility] [place] Comment on above: Results Start: 06-29-2024 End: 06-30-2024 Telephone encounter Mauro Krishnamurthy MD Work Phone: [facility] [place] Comment on above: Results Start: 06-26-2024 End: 06-26-2024 Refill Mauro Krishnamurthy MD Work Phone: [facility] Comment on above: Refill Request Other osteoporosis [ M81.8] Thyroid nodule [E04. 1] Start: 05-29-2024 End: 05-29-2024 Refill Mauro Krishnamurthy MD Work Phone: [facility] Comment on above: Refill Request Start: 05-25-2024 End: 05-25-2024 Telephone encounter Radha Willis MD Work Phone: Rheumatology Start: 05-22-2024 End: 05-22-2024 Patient encounter procedure Radha Willis MD Work Phone: Rheumatology Comment on above: PMR (polymyalgia rhe umatica) (HCC) (Primary Dx); Other osteoporosis; Medication monitoring encounter; Immunosuppression (HCC); Vaccine counseling; Age-related osteoporosis without current pathological fracture Start: 05-15-2024 End: 05-28-2024 Telephone encounter [facility]ur[facility] MD [facility] Start: 05-15-2024 End: 05-15-2024 Patient encounter procedure Mauro Krishnamurthy MD Work Phone: [facility] Comment on above: PMR (polymyalgia rhe umatica) (HCC) (Primary Dx); Encounter for immunization; Essential hypertension; 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HCC); Orthostatic hypotension; Aneurysm of ascending aorta without rupture (HCC); Chronic pancreatitis, unspecified pancreatitis type (HCC); Thyroid nodule; Obesity, Class III, BMI >= 40; Major depressive disorder, recurrent, mild (HCC); Other osteoporosis; Encounter for screening examination for other mental health and behavioral disorders; Need for vaccination Start: 05-01-2024 End: 05-01-2024 Refill Mauro Krishnamurthy MD Work Phone: [facility] Comment on above: Refill Request Start: 04-03-2024 End: 04-03-2024 Refill Mauro Krishnamurthy MD Work Phone: [facility] Comment on above: Refill Request Start: 02-07-2024 Refill Mauro Krishnamurthy MD Work Phone: [facility] [place] Comment on above: Refill Request Start: 02-05-2024 ambulatory Mauro Krishnamurthy MD Work Phone: [facility] [place] Start: 01-15-2024 Refill Mauro Krishnamurthy MD Work Phone: [facility] [place] Comment on above: Refill Request Start: 11-21-2023 Refill Mauro Krishnamurthy MD Work Phone: [facility] [place] Comment on above: Refill Request Start: 11-15-2023 Refill Mauro Krishnamurthy MD Work Phone: [facility] [place] Comment on above: Refill Request Start: 11-11-2023 Telephone encounter Mauro Krishnamurthy MD Work Phone: [facility] [place] Comment on above: Results Start: 10-29-2023 Telephone encounter Mauro Krishnamurthy MD Work Phone: [facility] [place] Comment on above: Question Start: 10-28-2023 Telephone encounter Radha knight MD Work Phone: Allergy Comment on above: Insurance Authorizat ion Start: 10-09-2023 End: 10-09-2023 Patient encounter procedure Joaquin Cantrell MD Work Phone: Cardiology Comment on above: Aneurysm of ascendin g aorta without rupture (HCC) (Primary Dx); Primary hypertension Start: 09-23-2023 End: 09-23-2023 Nursing evaluation of patient and report Mi Nurse Work Phone: [facility] [place] Comment on above: Age-related osteopor osis without current pathological fracture (Primary Dx) Start: 09-20-2023 Refill Mauro Krishnamurthy MD Work Phone: [facility] [place] Comment on above: Refill Request Start: 09-11-2023 Telephone encounter Mauro Krishnamurthy MD Work Phone: [facility] [place] Comment on above: Results Start: 07-30-2023 Telephone encounter Mauro Krishnamurthy MD Work Phone: [facility] [place] Comment on above: Results Start: 07-18-2023 Refill Mauro Krishnamurthy MD Work Phone: [facility] [place] Start: 07-16-2023 Refill Mauro Krishnamurthy MD Work Phone: [facility] [place] Comment on above: Refill Request Start: 07-15-2023 Telephone encounter Radha knight MD Work Phone: Rheumatology Comment on above: Results Start: 07-12-2023 Telephone encounter Mauro Krishnamurthy MD Work Phone: [facility] [place] Comment on above: Results Start: 07-08-2023 Refill Mauro Krishnamurthy MD Work Phone: [facility] [place] Comment on above: Refill Request Start: 07-01-2023 Refill Mauro Krishnamurthy MD Work Phone: [facility] [place] Comment on above: Refill Request Start: 06-27-2023 Telephone encounter Mauro Krishnamurthy MD Work Phone: [facility] [place] Comment on above: Results Start: 06-26-2023 End: 06-26-2023 Patient encounter procedure Mauro Krishnamurthy MD Work Phone: [facility] [place] Comment on above: Chronic pancreatitis , unspecified pancreatitis type (HCC) (Primary Dx); Encounter for immunization; PMR (polymyalgia rheumatica) (HCC); Essential hypertension; Hypercholesteremia; Aneurysm of ascending aorta without rupture (HCC); Orthostatic hypotension; Major depressive disorder, recurrent, mild (HCC) Start: 06-19-2023 Telephone encounter Mauro Krishnamurthy MD Work Phone: [facility] [place] Comment on above: Medication Update Patient Update Start: 06-18-2023 End: 06-18-[address] Mauro Krishnamurthy Work Phone: [facility] Work Phone: Start: 06-18-2023 End: 06-18-2023 Dr. Mauro Krishnamurthy Work Phone: [facility] Start: 06-11-2023 Telephone encounter Mauro Krishnamurthy MD Work Phone: [facility] Comment on above: Home Health Orders Start: 06-11-2023 End: 06-11-[address] Mauro Krishnamurthy Work Phone: [facility] Work Phone: Start: 06-11-2023 End: 06-11-2023 Dr. Mauro Krishnamurthy Work Phone: [facility] Start: 06-04-2023 End: 06-04-[address] Mauro Krishnamurthy Work Phone: [facility] Work Phone: Start: 06-04-2023 End: 06-04-2023 Dr. Mauro Krishnamurthy Work Phone: [facility] Start: 05-31-2023 End: 05-31-[address] Mauro Krishnamurthy Work Phone: [facility] Work Phone: Start: 05-31-2023 End: 05-31-2023 Dr. Mauro Krishnamurthy Work Phone: [facility] Start: 05-30-2023 End: 05-30-[address] Mauro Krishnamurthy Work Phone: [facility] Work Phone: Start: 05-30-2023 End: 05-30-2023 Dr. Mauro Krishnamurthy Work Phone: [facility] Start: 05-28-2023 End: 05-28-[address] Mauro Krishnamurthy Work Phone: [facility] Work Phone: Start: 05-28-2023 End: 05-28-2023 Dr. Mauro Krishnamurthy Work Phone: [facility] Start: 05-27-2023 Refill Mauro Krishnamurthy MD Work Phone: [facility] Comment on above: Refill Request Start: 05-21-2023 End: 05-21-2023 Dr. Mauro Krishnamurthy Work Phone: [facility] Work Phone: Start: 05-20-2023 End: 05-20-2023 Dr. Mauro Krishnamurthy Work Phone: [facility] Start: 05-15-2023 End: 05-15-2023 Dr. Mauro Krishnamurthy Work Phone: [facility] Work Phone: Start: 05-14-2023 End: 05-14-2023 Dr. Mauro Krishnamurthy Work Phone: [facility] Start: 05-07-2023 End: 05-07-2023 Dr. Mauro Krishnamurthy Work Phone: [facility] Start: 05-03-2023 End: 05-03-2023 Dr. 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 Mauro Krishnamurthy Work Phone: [facility] Work Phone: Start: 04-29-2023 End: 04-03-2024 Telephone encounter Mauro Krishnamurthy MD Work Phone: [facility] [place] Start: 04-23-2023 End: 04-23-2023 Dr. Mauro Krishnamurthy Work Phone: [facility] Start: 04-22-2023 End: 04-22-2023 Dr. Mauro Krishnamurthy Work Phone: [facility] Start: 04-16-2023 End: 04-16-2023 Dr. Mauro Krishnamurthy Work Phone: [facility] Start: 04-10-2023 Telephone encounter Mauro Krishnamurthy MD Work Phone: [facility] [place] Comment on above: Orders Start: 04-09-2023 Dr. Mauro Reyes Work Phone: [facility] Start: 04-02-2023 Dr. Mauro Reyes Work Phone: [facility] Start: 04-01-2023 End: 04-01-2023 Dr. Mauro Krishnamurthy Work Phone: [facility] Work Phone: Start: 03-27-2023 Telephone encounter Radha knight MD Work Phone: Rheumatology Comment on above: Patient Question; Pa tient Update Start: 03-27-2023 End: 03-27-2023 ambulatory Radha Willis MD Work Phone: Rheumatology Comment on above: 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HCC) (Primary Dx) Start: 03-27-2023 End: 03-27-2023 Telemedicine consultation with patient Radha Willis MD Work Phone: [facility] Start: 03-27-2023 Dr. Mauro Reyes Work Phone: [facility] Start: 03-26-2023 Dr. Muaro Reyes Work Phone: [facility] Start: 03-22-2023 Telephone encounter Radha knight MD Work Phone: Rheumatology Comment on above: Patient Update Start: 03-19-2023 Dr. Mauro Reyes Work Phone: [facility] Start: 03-18-2023 End: 03-18-2023 Dr. Mauro Krishnamurthy Work Phone: [facility] Work Phone: Start: 03-12-2023 Dr. Mauro Reyes Work Phone: [facility] Start: 03-11-2023 Specialty Pharmacy [facility] Comment on above: Erroneous encounter- disregard Start: 03-08-[address] Breezy Krishnamurthy Work Phone: [facility] Start: 03-08-2023 Dr. Mauro Reyes Work Phone: [facility] Start: 03-06-[address] Breezy Krishnamurthy Work Phone: [facility] Start: 03-06-2023 Dr. Mauro Reyes Work Phone: [facility] Start: 03-05-2023 End: 03-05-[address] Mauro Krishnamurthy Work Phone: [facility] Work Phone: Start: 03-05-2023 End: 03-05-[address] Mauro Krishnamurthy Work Phone: [facility] Work Phone: Start: 03-05-2023 End: 03-05-2023 Dr. Mauro Krishnamurthy Work Phone: [facility] Work Phone: Start: 03-05-[address] Breezy Krishnamurthy Work Phone: [facility] Start: 03-05-2023 End: 03-05-2023 Dr. Mauro Krishnamurthy Work Phone: [facility] Work Phone: Start: 03-04-2023 End: 03-04-2023 Dr. Mauro Krishnamurthy Work Phone: [facility] Work Phone: Start: 03-02-2023 Non-patient / Non-visit Dr. Tyler Krishnamurthy Work Phone: [facility] Work Phone: Start: 03-02-2023 Dr. Mauro Reyes Work Phone: [facility] Work Phone: Start: 03-01-2023 Non-patient / Non-visit Dr. Tyler Krishnamurthy Work Phone: [facility] Start: 03-01-2023 Dr. Mauro Reyes Work Phone: [facility] Start: 03-01-2023 Non-patient / Non-visit Dr. Tyler Krishnamurthy Work Phone: [facility] Work Phone: Start: 03-01-2023 Dr. Mauro Reyes Work Phone: [facility] Work Phone: Start: 02-28-2023 Non-patient / Non-visit Dr. Tyler Krishnamurthy Work Phone: [facility] Work Phone: Start: 02-28-2023 Dr. Mauro Reyes Work Phone: [facility] Work Phone: Start: 02-27-2023 Non-patient / Non-visit Dr. Tyler Krishnamurthy Work Phone: [facility] Work Phone: Start: 02-27-2023 Dr. Mauro Reyes Work Phone: [facility] Work Phone: Start: 02-27-2023 Non-patient / Non-visit Dr. Tyler Krishnamurthy Work Phone: [facility] Start: 02-27-2023 Dr. Mauro Reyes Work Phone: [facility] Start: 02-26-2023 Non-patient / Non-visit Dr. Tyler Krishnamurthy Work Phone: [facility] Start: 02-26-2023 Dr. Mauro Reyes Work Phone: [facility] Start: 02-26-2023 Non-patient / Non-visit Dr. Tyler Krishnamurthy Work Phone: [facility] Work Phone: Start: 02-26-2023 Dr. Mauro Reyes Work Phone: [facility] Work Phone: Start: 02-25-2023 Non-patient / Non-visit Dr. Tyler Krishnamurthy Work Phone: [facility] Start: 02-25-2023 Dr. Mauro Reyes Work Phone: [facility] Start: 02-25-2023 Non-patient / Non-visit Dr. Tyler Krishnamurthy Work Phone: [facility] Work Phone: Start: 02-25-2023 Dr. Mauro Reyes Work Phone: [facility] Work Phone: Start: 02-24-2023 End: 03-02-2023 Evaluation and management of inpatient Dr. Mauro Krishnamurthy Work Phone: [facility] Work Phone: Start: 02-24-2023 End: 03-02-2023 Dr. Mauro Krishnamurthy Work Phone: [facility] Work Phone: Start: 02-23-2023 Non-patient / Non-visit Dr. Tyler Krishnamurthy Work Phone: [facility] Work Phone: Start: 02-23-2023 Dr. Mauro Reyes Work Phone: [facility] Work Phone: Start: 02-22-2023 End: 02-23-2023 Evaluation and management of inpatient Dr. Mauro Krishnamurthy Work Phone: [facility] Work Phone: Start: 02-22-2023 End: 02-23-2023 Dr. Mauro Krishnamurthy Work Phone: [facility] Work Phone: Start: 02-22-2023 ambulatory Mauro Krishnamurthy MD Work Phone: [facility] Comment on above: Abdominal Pain SPP Inflammatory Con ditions - Medication Refill (Actemra) Start: 02-21-2023 Telephone encounter Mauro Krishnamurthy MD Work Phone: [facility] Comment on above: Patient Update Start: 02-20-2023 Telephone encounter Mauro Krishnamurthy MD Work Phone: [facility] Comment on above: Results (Urine) Start: 02-20-[address] Genaro Krishnamurthy Work Phone: [facility] Start: 02-20-2023 End: 03-11-2023 Dr. Mauro Krishnamurthy Work Phone: [facility] Start: 02-19-2023 Telephone encounter Mauro Krishnamurthy MD Work Phone: [facility] Comment on above: Orders Start: 02-18-2023 End: 02-18-2023 Patient encounter procedure Mauro Krishnamurthy MD Work Phone: [facility] Comment on above: Chronic recurrent pa ncreatitis (HCC) (Primary Dx); Essential hypertension; PMR (polymyalgia rheumatica) (HCC); Hypokalemia; Encounter for screening mammogram for malignant neoplasm of breast; Need for vaccination Start: 02-15-2023 Telephone encounter Mauro Krishnamurthy MD Work Phone: [facility] Comment on above: Question Start: 02-14-2023 Telephone encounter Mauro Krishnamurthy MD Work Phone: [facility] Comment on above: Nursing plan of care Start: 02-13-2023 Telephone encounter Mauro Krishnamurthy MD Work Phone: [facility] Comment on above: Home Health Start of Care Start: 02-13-2023 End: 02-13-2023 ambulatory Radha Willis MD Work Phone: Rheumatology Comment on above: 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HCC) (Primary Dx); PMR (polymyalgia rheumatica) (HCC); 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 Tyler Krishnamurthy Work Phone: [facility] Work Phone: Start: 02-11-2023 Dr. Mauro Reyes Work Phone: [facility] Work Phone: Start: 02-10-2023 Non-patient / Non-visit Dr. Tyler Krishnamurthy Work Phone: [facility] Work Phone: Start: 02-10-2023 Dr. Mauro Reyes Work Phone: [facility] Work Phone: Start: 02-09-2023 Non-patient / Non-visit Dr. Tyler Krishnamurthy Work Phone: [facility] Work Phone: Start: 02-08-2023 Non-patient / Non-visit Dr. Tyler Krishnamurthy Work Phone: [facility] Work Phone: Start: 02-07-2023 Telephone encounter Mauro Krishnamurthy MD Work Phone: [facility] Comment on above: [facility] calling for v erbal orders Start: 02-07-2023 Non-patient / Non-visit Dr. Tyler Krishnamurthy Work Phone: [facility] Work Phone: Start: 02-06-2023 Non-patient / Non-visit Dr. 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 Tyler Krishnamurthy Work Phone: [facility] Work Phone: Start: 02-04-2023 Non-patient / Non-visit Dr. Tyler Krishnamurthy Work Phone: [facility] Work Phone: Start: 02-04-2023 End: 02-11-2023 [facility] Start: 02-04-2023 End: 02-11-2023 Dr. Mauro Krish[facility]urthy [facility] Work Phone: Start: 01-09-2023 Telephone encounter Radha knight MD Work Phone: Rheumatology Comment on above: Medication Request Start: 12-24-2022 Telephone encounter Radha knight MD Work Phone: Rheumatology Comment on above: Results Start: 12-21-2022 End: 12-21-2022 Subsequent hospital visit by physician Xr [facility] Work Phone: Radiology Comment on above: Acute pain of right knee [M25.561] Start: 12-18-2022 Telephone encounter Radha knight MD Work Phone: Rheumatology Comment on above: Orders; Patient Ques tion Start: 12-13-2022 Telephone encounter Mauro Krishnamurthy MD Work Phone: [facility] Comment on above: Results Start: 12-12-2022 End: 12-13-2022 Emergency department patient visit [facility] Start: 12-12-2022 End: 12-12-2022 Patient encounter procedure [facility], Specimen Start: 12-12-2022 End: 12-12-2022 Subsequent hospital visit by physician Xr [facility] Work Phone: Radiology Comment on above: Bronchitis [J40] Start: 12-12-2022 End: 12-12-2022 Patient encounter procedure Mauro Krishnamurthy MD Work Phone: [facility] Comment on above: Bronchitis (Primary Dx); Pain of right lower extremity; Edema, unspecified type Start: 12-12-2022 Telephone encounter Mauro Krishnamurthy MD Work Phone: [facility] Comment on above: Critical Results Start: 12-07-2022 Telephone encounter Mauro Krishnamurthy MD Work Phone: [facility] Comment on above: Results Start: 12-07-2022 End: 12-07-2022 ambulatory Radha Willis MD Work Phone: Rheumatology Comment on above: Right leg pain (Prim todd Dx); Leg swelling; Dyspnea on exertion; PMR (polymyalgia rheumatica) (HCC); Medication management; 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 Start: 12-07-2022 End: 12-07-2022 Telemedicine consultation with patient Radha Willis MD Work Phone: [facility] Start: 11-30-2022 Telephone encounter Radha knight MD Work Phone: Rheumatology Comment on above: [facility] Start: 11-28-2022 Telephone encounter Radha knight MD Work Phone: Rheumatology Comment on above: Patient Update Start: 11-22-2022 Telephone encounter Radha knight MD Work Phone: Rheumatology Comment on above: Eye Problem; Referra l Request Start: 11-22-2022 End: 11-22-2022 Patient encounter procedure Marisol Llanes APRN.[facility] Work Phone: [facility] Comment on above: Allergic conjunctivi tis of both eyes (Primary Dx) Start: 11-12-2022 Refill Mauro Krishnamurthy MD Work Phone: [facility] Comment on above: Refill Request Start: 11-09-2022 End: 11-09-2022 ambulatory Radha Willis MD Work Phone: Rheumatology Comment on above: PMR (polymyalgia rhe umatica) (HCC) (Primary Dx); 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; Medication management Start: 11-09-2022 End: 11-09-2022 Telemedicine consultation with patient Radha Willis MD Work Phone: [facility] Start: 11-07-2022 Telephone encounter Radha knight MD Work Phone: Rheumatology Comment on above: Appointment Start: 11-01-2022 Telephone encounter Radha knight MD Work Phone: Rheumatology Comment on above: Patient Question Start: 10-18-2022 End: 10-18-2022 ambulatory Radha Willis MD Work Phone: Rheumatology Comment on above: PMR (polymyalgia rhe umatica) (HCC) (Primary Dx); 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; Medication management; Vaccine counseling Start: 10-18-2022 End: 10-18-2022 Telemedicine consultation with patient Radha Wlilis MD Work Phone: [facility] Start: 10-08-2022 End: 10-08-2022 Patient encounter procedure Leonidas Sun MD Work Phone: Cardiology Comment on above: Aneurysm of ascendin g aorta without rupture (HCC) (Primary Dx); Essential hypertension; Hypercholesteremia Start: 09-20-2022 Telephone encounter Radha knight MD Work Phone: Laboratory Medicine Comment on above: Orders Start: 09-12-2022 End: 09-12-2022 Patient encounter procedure Mauro Krishnamurthy MD Work Phone: [facility] Comment on above: PMR (polymyalgia rhe umatica) (HCC) (Primary Dx); Ectatic thoracic aorta (HCC); Aneurysm of ascending aorta without rupture; Depression, unspecified depression type Start: 09-10-2022 Telephone encounter Siomara Medina MD Work Phone: Ophthalmology Comment on above: TABX question Start: 08-31-2022 Nurse Triage Patrizia malcolm LPN NURSE TIP CEMENTER Comment on above: Refill Request Start: 08-27-2022 Telephone encounter Radha knight MD Work Phone: [facility] Comment on above: Medication Problem Crusher - O ther Start: 08-22-2022 Telephone encounter Mauro Krishnamurthy MD Work Phone: [facility] [place] Comment on above: Orders Start: 08-22-2022 End: 08-22-2022 Nursing evaluation of patient and report Mi Nurse Work Phone: [facility] [place] Comment on above: Age-related osteopor osis without current pathological fracture (Primary Dx) Start: 08-02-2022 Telephone encounter Mauro Krishnamurthy MD Work Phone: [facility] [place] Comment on above: Results Start: 08-01-2022 End: 08-01-2022 Patient encounter procedure Mauro Krishnamurthy MD Work Phone: [facility] [place] Comment on above: Polymyalgia (HCC) (P rimary Dx); Depression, unspecified depression type; Fatigue, unspecified type; Polydipsia; 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 Start: 07-23-2022 Telephone encounter Mauro Krishnamurthy MD Work Phone: [facility] [place] Comment on above: Missed Appointment Start: 07-06-2022 Telephone encounter Mauro Krishnamurthy MD Work Phone: [facility] [place] Comment on above: Results Start: 07-04-2022 End: 07-04-2022 Subsequent hospital visit by physician Margaret [facility] [place] Work Phone: Radiology Comment on above: Right knee pain, uns pecified chronicity [M25.561] Start: 07-04-2022 Telephone encounter Mauro Krishnamurthy MD Work Phone: [facility] [place] Comment on above: Erroneous encounter- disregard Start: 07-04-2022 End: 07-04-2022 Patient encounter procedure Mauro Krishnamurthy MD Work Phone: [facility] [place] Comment on above: Chronic pain of righ t knee (Primary Dx); Polyarthralgia; Elevated sed rate; Morning stiffness of joints; Neck pain; Hip pain; Need for influenza vaccination; Screening breast examination Start: 06-28-2022 Refill [facility]ur[facility] MD [facility] Comment on above: Refill Request Start: 06-13-2022 Orders Only Guadalupe Gaitan DO Work Phone: Orthopaedics Comment on above: Right knee pain, uns pecified chronicity (Primary Dx) Start: 06-04-2022 Telephone encounter Mauro Krishnamurthy MD Work Phone: [facility] [place] Comment on above: Results Start: 05-31-2022 End: 05-31-2022 Patient encounter procedure Abbe Major Henko BLUM Work Phone: [facility] [place] Comment on above: Right leg pain (Prim todd Dx); Pain in both upper arms; Neck pain; Primary osteoarthritis of right knee Start: 05-24-2022 Telephone encounter Mauro Krishnamurthy MD Work Phone: [facility] [place] Comment on above: Results Start: 05-16-2022 Telephone encounter Mauro Krishnamurthy MD Work Phone: [facility] [place] Comment on above: Patient Update; Resu lts Start: 05-10-2022 Telephone encounter Mauro Krishnamurthy MD Work Phone: [facility] [place] Comment on above: Results Start: 04-26-2022 Telephone encounter Mauro Krishanmurthy MD Work Phone: [facility] [place] Comment on above: Results Start: 04-13-2022 End: 04-13-2022 Emergency department patient visit [facility] Start: 02-28-2022 Telephone encounter Mauro Krishnamurthy MD Work Phone: [facility] [place] Comment on above: Results Start: 02-27-2022 End: 02-27-2022 Subsequent hospital visit by physician [facility] Work Phone: Radiology Comment on above: Nontoxic multinodula r goiter [E04.2] Start: 12-16-2021 Telephone encounter Mauro Krishnamurthy MD Work Phone: [facility] [place] Comment on above: Results Start: 12-08-2021 Telephone encounter Mauro Krishnamurthy MD Work Phone: [facility] [place] Comment on above: Results Start: 12-01-2021 Telephone encounter Mauro Krishnamurthy MD Work Phone: [facility] [place] Comment on above: Patient Update Start: 11-17-2021 End: 11-17-2021 Patient encounter procedure Mauro Krishnamurthy MD Work Phone: [facility] Comment on above: Urinary tract infect ion without hematuria, site unspecified (Primary Dx); Vertigo; Debility; Essential hypertension; Hypercholesteremia; Depression, unspecified depression type; Nontoxic multinodular goiter Start: 11-13-2021 Telephone encounter Mauro Krishnamurthy MD Work Phone: [facility] Comment on above: OT Plan of Care Start: 11-08-2021 Telephone encounter Mauro Krishnamurthy MD Work Phone: [facility] Comment on above: PT POC Start: 10-18-2021 End: 11-07-2021 Evaluation and management of inpatient Dr. Mauro Krishnamurthy [facility] Start: 10-18-2021 Non-patient / Non-visit Dr. Tyler Krishnamurthy Work Phone: [facility] Start: 10-17-2021 Non-patient / Non-visit Dr. Tyler Krishnamurthy Work Phone: [facility] Start: 10-16-2021 End: 10-18-2021 Evaluation and management of inpatient Dr. Mauro Krishnamurthy [facility] Start: 11-18-2020 End: 11-18-2020 Subsequent hospital visit by physician Xr [facility] [place] Work Phone: Radiology Comment on above: Acute pain of right knee [M25.561] Start: 10-02-2017 Ambulatory [facility] Facility :[facility] Procedures Date Procedure Procedure Detail Performing Clinician Start: 10-22-2024 Us soft tissue head & neck real time imge jakob Rogers MD Work Phone: Start: 05-15-2024 [employer] COVID-19 VACCINE AGE 12+ YR (COMIRNATY) Mauro Krsihnamurthy MD Work Phone: Start: 11-08-2023 Lipid 1996 panel - Serum or Plasma Genaro Krishnamurthy MD Work Phone: Start: 10-09-2023 Ecg routine ecg w/least 12 lds i&r only [facility] Provider Start: 06-26-2023 INFLUENZA VACCINE, PRSV FREE, AGE 65+ YR, HIGH DOSE, QUADRIVALENT (FLUZONE HIGH-DOSE) Mauro Krishnamurthy MD Work Phone: Start: 06-26-2023 [facility] COVID-19 VACCINE ( SEASON) AGE 12+ YR Mauro Krishnamurthy MD Work Phone: Start: 05-30-[address] Mauro Krishnamurthy Work Phone: Start: 05-20-[address] Mauro Krishnamurthy Work Phone: Start: 03-19-[address] Mauro Krishnamurthy Work Phone: Start: 03-05-2023 Single photon emission computed tomography of tumor Dr. Mauro Krishnamurthy Work Phone: Start: 03-02-[address] Mauro Krishnamurthy Work Phone: Start: 03-02-2023 CT of chest without contrast Dr. Mauro Krishnamurthy Work Phone: Start: 03-01-[address] Mauro Krishnamurthy Work Phone: Start: 03-01-2023 Computed tomography angiography of abdominal and/or pelvic blood vessel Dr. Mauro Krishnamurthy Work Phone: Start: 02-27-[address] aMuro julien Work Phone: Start: 02-24-2023 Computed tomography of abdomen and pelvis with contrast Dr. Mauro Krishnamurthy Work Phone: Start: 02-23-[address] Reynaldo Krishnamurthy Work Phone: Start: 02-22-[address] Mauro Krishnamurthy Work Phone: Start: 02-22-2023 Computed tomography of abdomen and pelvis with intravenous contrast Dr. Mauro Krishnamurthy Work Phone: Start: 02-20-[address] Mauro Krishnamurthy Work Phone: Start: 02-04-[address] Mauro Krishnamurthy Work Phone: Start: 02-04-[address] Mauro Krishnamurthy Work Phone: Start: 02-04-2023 CT of abdomen and pelvis without contrast Start: 12-21-2022 End: 12-21-2022 Radex hip unilateral with pelvis 2-3 views Radha Willis MD Work Phone: Start: 12-12-2022 CT angiography of chest with contrast Start: 12-12-2022 Radiologic exam chest 2 views Mauro Krishnamurthy MD Work Phone: Start: 12-12-2022 SARS-CoV-2 & FLU Antigen (Rapid) Start: 07-04-2022 Radex spine cervical 4 or 5 views Breezy Krishnamurthy MD Work Phone: Start: 07-04-2022 INFLUENZA SEASONAL QUADRIVALENT HIGH DOSE AGE 65+ Mauro Krishnamurthy MD Work Phone: Start: 04-13-2022 Plain chest X-ray Start: 02-27-2022 Us soft tissue head & neck real time imge docm Mauro Krishnamurthy MD Work Phone: Start: 12-07-2021 Lipid 1996 panel - Serum or Plasma Dorita Willis MD Work Phone: Start: 11-02-2021 End: 11-02-[address] Mauro Krishnamurthy Work Phone: Start: 10-18-2021 End: 10-18-[address] Mauro Krishnamurthy Work Phone: Start: 10-17-[address] Mauro Krishnamurthy Work Phone: Start: 10-16-2021 MRI of brain without contrast Dr. Breezy Krishnamurthy Work Phone: Start: 10-16-2021 Plain chest X-ray Dr. Mauro Krishnamurthy Work Phone: Start: 10-16-2021 CT of head without contrast Dr. Mauro Krishnamurthy Work Phone: Start: 09-25-2021 Colonoscopy Mauro Krishnamurthy MD Work Phone: Start: 06-22-2021 Mammography Mauro Krishnamurthy MD Work Phone: Start: 11-18-2020 Radiologic exam knee complete 4/more views Mauro Krishnamurthy MD Work Phone: Plan of Treatment Date Care Activity Detail Author Start: 11-07-2028 Lipid panel Lipid Screening [facility] Start: 05-22-2027 Diabetes Screening Diabetes Screening [facility] Start: 12-07-2026 Lipid 1996 panel - Serum or Plasma Lipid Screening [facility] Start: 12-07-2026 Lipid panel Lipid Screening [facility] Start: 12-07-2026 LIPID SCREEN LIPID SCREEN [facility] Start: 11-07-2026 Diabetes Screening Diabetes Screening [facility] Start: 09-25-2026 Colonoscopy COLONOSCOPY [facility] Start: 09-25-2026 COLORECTAL CANCER SCREENING COLORECTAL CANCER SCREENING [facility] Start: 09-25-2026 Screening for malignant neoplasm of colon [facility] Start: 07-11-2026 Diabetes Screening Diabetes Screening [facility] Start: 06-26-2026 Diabetes Screening Diabetes Screening [facility] Start: 06-26-2026 Screening for osteoporosis Bone Density Screening [facility] Start: 03-05-2026 Annual PCP Team Chronic Disease Visit Annual PCP Team Chronic Disease Visit [facility] Start: 03-05-2026 Medicare Annual Wellness Visit Medicare Annual Wellness Visit [facility] Start: 02-18-2026 DIABETES SCREEN DIABETES SCREEN [facility] Start: 02-18-2026 Diabetes Screening Diabetes Screening [facility] Start: 12-12-2025 DIABETES SCREEN DIABETES SCREEN [facility] Start: 11-18-2025 LIPID SCREEN LIPID SCREEN [facility] Start: 10-22-2025 BP Controlled (<130/80) BP Controlled (<130/80) [facility] Start: 10-13-2025 End: 01-12-2026 Thyrotropin [Units/volume] in Serum or Plasma THYROID STIMULATING HORMONE Lab Routine Nontoxic multinodular goiter Expected: 10/13/2025, Expires: 01/12/2026 [facility] Work Phone: Comment on above: Expected: 10/13/2025, Expires: Start: 10-13-2025 End: 11-28-2025 US Thyroid gland US THYROID/PARATHYROID Radiology Routine Nontoxic multinodular goiter Expected: 10/13/2025, Expires: 11/28/2025 [facility] Comment on above: Expected: 10/13/2025, Expires: Start: 09-10-2025 End: 09-10-2025 Patient encounter procedure 09/10/2025 10:40 AM EST Office Visit [facility] [place] [address] [place], [place] [id number] Mauro Krishnamurthy MD [address] [place] [address] 6 month exam [facility] [place] Comment on above: 6 month exam Start: 09-05-2025 Screening for malignant neoplasm of breast Mammogram Screening [facility] Comment on above: Postponed from 06/22/2022 (Postponed To Appropriate Date) Start: 08-11-2025 Advance Directive Discussion Advance Directive Discussion [facility] Comment on above: Postponed from 08/12/2024 (Declined at t his time) Start: 08-01-2025 DIABETES SCREEN DIABETES SCREEN [facility] Start: 05-31-2025 End: 05-31-2025 Patient encounter procedure 05/31/2025 11:00 AM EDT Office Visit Orthopaedics [address] [place] [address] Michelle Moore PA-C [address], [place] [id number] Dx: Primary osteoarthritis of right knee [M17.11] Orthopaedics Comment on above: Dx: Primary osteoarthritis of right knee [M17.11] Start: 05-15-2025 Annual PCP Team Chronic Disease Visit Annual PCP Team Chronic Disease Visit [facility] Start: 05-15-2025 Anxiety Screening Anxiety Screening [facility] Start: 05-15-2025 Covid-19 Vaccine (6 - season) Covid-19 Vaccine ( - season) [facility] Comment on above: Postponed from 07/10/2024 (Declined at t his time) Start: 05-15-2025 Covid-19 Vaccine (6 - Moderna risk season) Covid-19 Vaccine (6 - Moderna risk season) [facility] [facility] Comment on above: Postponed from 11/13/2024 (Declined at t his time) Start: 04-12-2025 [facility] Start: 03-17-2025 End: 03-17-2025 Nursing evaluation of patient and report 03/17/2025 11:15 AM EDT Nurse Visit [facility] [place] [address] [facility] [place], [place] [id number] Nurse, Wi [address] [facility] [place], [place] [id number] [facility] [place] Comment on above: proldanielle Start: 03-08-2025 End: 03-08-2025 Patient encounter procedure 03/08/2025 10:50 AM EDT Appointment Mammogram [address] [facility], [place] [id number] Dx: Encounter for screening mammogram for breast cancer [Z12.31] Mammogram Comment on above: Dx: Encounter for screening mammogram fo r breast cancer [Z12.31] Start: 03-05-2025 End: 06-04-2025 CBC W Auto Differential panel - Blood COMPLETE BLOOD COUNT AND DIFFERENTIAL Lab Routine Chronic recurrent pancreatitis (HCC) 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HCC) Expected: 03/05/2025, Expires: 06/04/2025 [facility] Work Phone: Comment on above: Expected: 03/05/2025, Expires: Start: 03-05-2025 End: 06-04-2025 Cobalamin (Vitamin B12) [Mass/volume] in Serum or Plasma VITAMIN B12 Lab Routine 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HCC) Expected: 03/05/2025, Expires: 06/04/2025 [facility] Comment on above: Expected: 03/05/2025, Expires: Start: 03-05-2025 End: 06-04-2025 Comprehensive metabolic 2000 panel - Serum or Plasma COMPREHENSIVE METABOLIC PANEL Lab Routine Hypercholesteremia Essential hypertension PMR (polymyalgia rheumatica) (HCC) Chronic pancreatitis, unspecified pancreatitis type (HCC) Expected: 03/05/2025, Expires: 06/04/2025 [facility] Comment on above: Expected: 03/05/2025, Expires: Start: 03-05-2025 End: 06-04-2025 Lipid 1996 panel - Serum or Plasma LIPID PANEL, FASTING Lab Routine Hypercholesteremia Expected: 03/05/2025, Expires: 06/04/2025 [facility] Comment on above: Expected: 03/05/2025, Expires: Start: 03-05-2025 End: 06-04-2025 Magnesium [Mass/volume] in Serum or Plasma MAGNESIUM Lab Routine Essential hypertension Expected: 03/05/2025, Expires: 06/04/2025 [facility] Comment on above: Expected: 03/05/2025, Expires: Start: 03-05-2025 End: 06-04-2025 Thyrotropin [Units/volume] in Serum or Plasma THYROID STIMULATING HORMONE Lab Routine Nontoxic multinodular goiter Expected: 03/05/2025, Expires: 06/04/2025 [facility] Comment on above: Expected: 03/05/2025, Expires: Start: 03-05-2025 End: 03-05-2025 Patient encounter procedure 03/05/2025 1:40 PM EDT Office Visit [facility] [place] [address] [place], [place] [id number] Patrizia Pabon, DYE COLORIST DYER.GROUNDS/MAINTENANCE SPECIALIST [address] [place], [place] [id number] Medicare Wellness [facility] [place] Comment on above: Medicare Wellness Start: 12-07-2024 DIABETES SCREEN DIABETES SCREEN [facility] Start: 11-20-2024 End: 11-20-2024 Patient encounter procedure 11/20/2024 12:30 PM EDT Office Visit Rheumatology [address] [place] [address] [place] [address] [place] [address] 6mo follow up Rheumatology Comment on above: 6mo follow up Start: 11-16-2024 End: 11-16-2024 Patient encounter procedure 11/16/2024 10:00 AM EDT Office Visit [facility] [place] [address] [place] [address] Mauro Krishnamurthy MD [address] [place] [address] 6 month follow up. Fasting labs prior [facility] [place] Comment on above: 6 month follow up. Fasting labs prior Start: 11-13-2024 End: 02-12-2025 25-hydroxyvitamin D3 [Mass/volume] in Serum or Plasma VITAMIN D 25 HYDROXY Lab Routine Other osteoporosis Expected: 11/13/2024, Expires: 02/12/2025 [facility] Comment on above: Expected: 11/13/2024, Expires: Start: 11-13-2024 End: 02-12-2025 CBC W Auto Differential panel - Blood COMPLETE BLOOD COUNT AND DIFFERENTIAL Lab Routine Essential hypertension Expected: 11/13/2024, Expires: 02/12/2025 [facility] Comment on above: Expected: 11/13/2024, Expires: Start: 11-13-2024 End: 02-12-2025 Comprehensive metabolic 2000 panel - Serum or Plasma COMPREHENSIVE METABOLIC PANEL Lab Routine Essential hypertension Expected: 11/13/2024, Expires: 02/12/2025 [facility] Comment on above: Expected: 11/13/2024, Expires: Start: 11-13-2024 End: 02-12-2025 Lipid 1996 panel - Serum or Plasma LIPID PANEL BASIC Lab Routine Essential hypertension Expected: 11/13/2024, Expires: 02/12/2025 [facility] Comment on above: Expected: 11/13/2024, Expires: Start: 11-07-2024 Annual PCP Team Chronic Disease Visit Annual PCP Team Chronic Disease Visit [facility] Start: 11-07-2024 BP Controlled (<130/80) BP Controlled (<130/80) [facility] Start: 11-07-2024 Covid-19 Vaccine ( season) Covid-19 Vaccine ( season) [facility] Comment on above: Postponed from 08/21/2023 (Declined at t his time) Start: 10-22-2024 End: 10-22-2024 Patient encounter procedure 10/22/2024 2:00 PM EDT Office Visit Endocrinology [address] [place], [place] [id number] Blanche Rogers MD [address] [place] [address] [facility] Comment on above: [facility] Start: 10-09-2024 BP Controlled (<130/80) BP Controlled (<130/80) [facility] Start: 10-09-2024 End: 10-09-2024 Patient encounter procedure 10/09/2024 10:40 AM EST Office Visit Endocrinology [address] [place] [address] Blanche Rogers MD [address] [place] [id number] Thyroid nodule [E04.1] Endocrinology Comment on above: Thyroid nodule [E04.1] Start: 08-12-2024 Advance Directive Discussion Advance Directive Discussion [facility] Start: 07-29-2024 Annual PCP Team Chronic Disease Visit Annual PCP Team Chronic Disease Visit [facility] Start: 07-29-2024 BP Controlled (<130/80) BP Controlled (<130/80) [facility] Start: 07-29-2024 RSV Vaccine (1 - 1-dose 60+ series) RSV Vaccine (1 - 1-dose 60+ series) [facility] Comment on above: Postponed from 2015 (Declined at t his time) Start: 07-29-2024 RSV Vaccine (1 - Risk 60-74 years 1-dose series) RSV Vaccine (1 - Risk 60-74 years 1-dose series) [facility] Comment on above: Postponed from 2015 (Declined at t his time) Start: 07-29-2024 Shingrix Vaccine (1 of 2) Shingrix Vaccine (1 of 2) [facility] Comment on above: Postponed from 1974 (Declined at t his time) Start: 07-29-2024 Urine microalbumin profile DTaP,Tdap,Td Vaccine (1 - Tdap) [facility] Comment on above: Postponed from 1974 (Declined at t his time) Start: 07-07-2024 End: 07-07-2024 Patient encounter procedure 07/07/2024 10:40 AM EST Office Visit [facility] [place] [address] [place], [place] [phone] Patrizia Pabon DYE COLORIST DYER.GROUNDS/MAINTENANCE SPECIALIST [address] [place], [place] [id number] Spine issue follow up [facility] [place] Comment on above: Spine issue follow up Start: 06-26-2024 Annual PCP Team Chronic Disease Visit Annual PCP Team Chronic Disease Visit [facility] Start: 06-26-2024 End: 06-26-2024 Patient encounter procedure Radiology Comment on above: Other osteoporosis [M81.8] Thyroid nodule [E04. 1] Start: 05-22-2024 End: 08-21-2024 25-hydroxyvitamin D3 [Mass/volume] in Serum or Plasma [facility] Comment on above: Expected: 05/22/2024, Expires: Start: 05-22-2024 End: 08-21-2024 C reactive protein [Mass/volume] in Serum or Plasma [facility] Comment on above: Expected: 05/22/2024, Expires: Start: 05-22-2024 End: 08-21-2024 Erythrocyte sedimentation rate [facility] Work Phone: Comment on above: Expected: 05/22/2024, Expires: Start: 05-22-2024 End: 05-22-2024 Patient encounter procedure 05/22/2024 10:50 AM EDT Office Visit Rheumatology [address] [place] [address] [place] [address] [place] [address] 05/15/2025 Priority: Routine Rheumatology Comment on above: 05/15/2025 Priority: Routine Start: 05-15-2024 End: 05-15-2024 Patient encounter procedure 05/15/2024 10:20 AM EDT Office Visit [facility] [place] [address] [facility] [place], [place] [phone] Mauro Krishnamurthy MD [address] [facility] [place], [place] [id number] 6 month follow up [facility] [place] Comment on above: 6 month follow up Start: 05-14-2024 End: 05-14-2024 Patient encounter procedure Rheumatology Comment on above: 6-9 month follow up Start: 05-12-2024 End: 05-12-2024 Patient encounter procedure 05/12/2024 1:40 PM EDT Office Visit [facility] [place] [address] [facility] [place] [address] Mauro Krishnamurthy MD [address] [place] [address] 6 month follow up [facility] [place] Comment on above: 6 month follow up Start: 04-12-2024 Covid-19 Vaccine ( season) Covid-19 Vaccine ( season) [facility] Start: 04-12-2024 Covid-19 Vaccine ( season) Covid-19 Vaccine ( season) [facility] Start: 04-12-2024 Influenza vaccination [facility] Start: 03-23-2024 End: 03-23-2024 Nursing evaluation of patient and report 03/23/2024 1:30 PM EDT Nurse Visit [facility] [place] [address] [facility] [place], [place] [phone] Nurse, Wi [address] [place] [address] [facility] [place] Comment on above: Ethan Start: 02-19-2024 ANNUAL PCP TEAM CHRONIC DISEASE VISIT ANNUAL PCP TEAM CHRONIC DISEASE VISIT [facility] Start: 02-19-2024 COVID-19 VACCINE (4 - Booster for Moderna series) COVID-19 VACCINE (4 - Booster for Moderna series) [facility] Comment on above: Postponed from 12/18/2021 (Declined at t his time) Start: 02-19-2024 COVID-19 VACCINE (4 - Moderna risk series) COVID-19 VACCINE (4 - Moderna risk series) [facility] Comment on above: Postponed from 12/18/2021 (Declined at t his time) Start: 12-13-2023 ANNUAL PCP TEAM CHRONIC DISEASE VISIT ANNUAL PCP TEAM CHRONIC DISEASE VISIT [facility] Start: 11-23-2023 BP CONTROLLED (<130/80) BP CONTROLLED (<130/80) [facility] Start: 11-19-2023 DIABETES SCREEN DIABETES SCREEN [facility] Start: 11-11-2023 End: 02-10-2024 POTASSIUM BLD POTASSIUM BLD Lab Routine Hyperkalemia Expected: 11/11/2023, Expires: 02/10/2024 [facility] Work Phone: Comment on above: Expected: 11/11/2023, Expires: Start: 09-12-2023 ANNUAL PCP TEAM CHRONIC DISEASE VISIT ANNUAL PCP TEAM CHRONIC DISEASE VISIT [facility] Start: 09-12-2023 BP CONTROLLED (<130/80) BP CONTROLLED (<130/80) [facility] Start: 08-23-2023 BP CONTROLLED (<130/80) BP CONTROLLED (<130/80) [facility] Start: 08-21-2023 Covid-19 Vaccine () Covid-19 Vaccine () [facility] Start: 08-12-2023 Advance Directive Discussion Advance Directive Discussion [facility] Start: 08-01-2023 ANNUAL PCP TEAM CHRONIC DISEASE VISIT ANNUAL PCP TEAM CHRONIC DISEASE VISIT [facility] Start: 07-30-2023 End: 10-29-2023 CBC W Ordered Manual Differential panel - Blood PATHOLOGIST INTERPRETATION WITH CBC AND DIFF Lab Routine Leukopenia, unspecified type Expected: 07/30/2023, Expires: 10/29/2023 [facility] Work Phone: Comment on above: Expected: 07/30/2023, Expires: 4 Start: 07-12-2023 End: 10-11-2023 CBC W Auto Differential panel - Blood CBC + DIFF Lab Routine Anemia, unspecified type Expected: 07/12/2023, Expires: 10/11/2023 [facility] Work Phone: Comment on above: Expected: 07/12/2023, Expires: Start: 07-12-2023 End: 10-11-2023 RETIC COUNT RETIC COUNT Lab Routine Anemia, unspecified type Expected: 07/12/2023, Expires: 10/11/2023 [facility] Work Phone: Comment on above: Expected: 07/12/2023, Expires: 4 Start: 07-04-2023 ANNUAL PCP TEAM CHRONIC DISEASE VISIT ANNUAL PCP TEAM CHRONIC DISEASE VISIT [facility] Start: 07-04-2023 BP CONTROLLED (<130/80) BP CONTROLLED (<130/80) [facility] Start: 06-27-2023 End: 09-26-2023 Basic metabolic 2000 panel - Serum or Plasma BASIC METABOLIC PNL Lab Routine Anemia, unspecified type Renal insufficiency Expected: 06/27/2023, Expires: 09/26/2023 [facility] Work Phone: Comment on above: Expected: 06/27/2023, Expires: 4 Start: 06-27-2023 End: 06-27-2024 CBC W Auto Differential panel - Blood CBC + DIFF Lab Routine Anemia, unspecified type Renal insufficiency Expected: 06/27/2023, Expires: 06/27/2024 [facility] Work Phone: Comment on above: Expected: 06/27/2023, Expires: 4 Start: 06-27-2023 End: 06-27-2024 Cobalamin (Vitamin B12) [Mass/volume] in Serum or Plasma VITAMIN B12 BLOOD Lab Routine Anemia, unspecified type Renal insufficiency Expected: 06/27/2023, Expires: 06/27/2024 [facility] Work Phone: Comment on above: Expected: 06/27/2023, Expires: 4 Start: 06-27-2023 End: 06-27-2024 Ferritin [Mass/volume] in Serum or Plasma FERRITIN BLD Lab Routine Anemia, unspecified type Renal insufficiency Expected: 06/27/2023, Expires: 06/27/2024 [facility] Work Phone: Comment on above: Expected: 06/27/2023, Expires: Start: 06-27-2023 End: 06-27-2024 Folate [Mass/volume] in Serum or Plasma FOLATE SERUM Lab Routine Anemia, unspecified type Renal insufficiency Expected: 06/27/2023, Expires: 06/27/2024 [facility] Work Phone: Comment on above: Expected: 06/27/2023, Expires: 4 Start: 06-27-2023 End: 06-27-2024 Iron and Iron binding capacity panel - Serum or Plasma IRON + TIBC Lab Routine Anemia, unspecified type Renal insufficiency Expected: 06/27/2023, Expires: 06/27/2024 [facility] Work Phone: Comment on above: Expected: 06/27/2023, Expires: 4 Start: 06-22-2023 Screening for osteoporosis Bone Density Screening [facility] Start: 05-31-2023 ANNUAL PCP TEAM CHRONIC DISEASE VISIT ANNUAL PCP TEAM CHRONIC DISEASE VISIT [facility] Start: 05-31-2023 BP CONTROLLED (<130/80) BP CONTROLLED (<130/80) [facility] Start: 05-31-2023 SHINGRIX VACCINE (1 of 2) SHINGRIX VACCINE (1 of 2) [facility] Comment on above: Postponed from 2005 (Declined at t his time) Postponed from 08/24 (Declined at this time) Start: 05-31-2023 Urine microalbumin profile [facility] Comment on above: Postponed from 1974 (Declined at t his time) Start: 04-25-2023 ANNUAL PCP TEAM CHRONIC DISEASE VISIT ANNUAL PCP TEAM CHRONIC DISEASE VISIT [facility] Start: 04-25-2023 BP CONTROLLED (<130/80) BP CONTROLLED (<130/80) [facility] Start: 04-12-2023 Covid-19 Vaccine () Covid-19 Vaccine () [facility] Start: 04-12-2023 Influenza vaccination [facility] Start: 03-02-2023 Patient discharge [facility] Start: 02-27-2023 Catheterization of vein [facility] Start: 02-25-2023 Following clinical pathway protocol [facility] Start: 02-25-2023 Application of intermittent pneumatic compression device [facility] Start: 02-25-2023 Assessment of risk of venous thromboembolism [facility] Start: 02-25-2023 Fall prevention [facility] Start: 02-25-2023 Insertion of catheter into peripheral vein [facility] Start: 02-25-2023 Introduction of urinary catheter [facility] Start: 02-25-2023 Measuring intake and output [facility] Start: 02-25-2023 Providing care according to standard [facility] Start: 02-25-2023 Provision of activity privileges [facility] Start: 02-25-2023 Referral to gastroenterology service [facility] Start: 02-25-2023 Referral to occupational therapist [facility] Start: 02-25-2023 Referral to service [facility] Start: 02-25-2023 Consultation [facility] Start: 02-25-2023 Inhalation therapy procedure [facility] Start: 02-25-2023 Patient referral to dietitian [facility] Start: 02-25-2023 End: 02-25-2023 [facility] Start: 02-24-2023 Verification routine [facility] Start: 02-24-2023 Admission procedure [facility] Start: 02-24-2023 Serum immunofixation [facility] Start: 02-23-2023 Referral to service [facility] Start: 02-23-2023 Patient discharge [facility] Start: 02-23-2023 C. difficile GDH Antigen & Toxins C. difficile GDH Antigen & Toxins [facility] Start: 02-22-2023 [facility] Start: 02-22-2023 Following clinical pathway protocol [facility] Start: 02-22-2023 Ambulation without limitation [facility] Start: 02-22-2023 Assessment of risk of venous thromboembolism [facility] Start: 02-22-2023 Incentive spirometry [facility] Start: 02-22-2023 Insertion of catheter into peripheral vein [facility] Start: 02-22-2023 Measuring intake and output [facility] Start: 02-22-2023 Oxygen therapy [facility] Start: 02-22-2023 Providing care according to standard [facility] Start: 02-22-2023 Provision of activity privileges [facility] Start: 02-22-2023 Referral to occupational therapist [facility] Start: 02-22-2023 Referral to service [facility] Start: 02-22-2023 [facility] Start: 02-22-2023 Enteric precautions [facility] Start: 02-22-2023 Clostridioides difficile DNA [Presence] in Unspecified specimen by AMBROSE with probe detection [facility] Start: 02-22-2023 Admission procedure [facility] Start: 02-22-2023 Verification routine [facility] Start: 02-22-2023 Bacteria identified in Urine by Culture Urine Culture [facility] Start: 02-22-2023 Urine culture Urine Culture [facility] Start: 02-22-2023 [facility] Start: 02-22-2023 [facility] Start: 02-22-2023 Consultation [facility] Start: 02-19-2023 End: 04-21-2023 Bacteria identified in Urine by Culture URINE CULTURE Microbiology Routine Dysuria Expected: 02/19/2023, Expires: 04/21/2023 [facility] Work Phone: Comment on above: Expected: 02/19/2023, Expires: Start: 02-19-2023 End: 04-21-2023 Urinalysis complete panel - Urine URINALYSIS, WITH MICROSCOPIC Lab Routine Dysuria Expected: 02/19/2023, Expires: 04/21/2023 [facility] Work Phone: Comment on above: Expected: 02/19/2023, Expires: 3 Start: 02-18-2023 End: 04-20-2023 Comprehensive metabolic 2000 panel - Serum or Plasma [facility] Work Phone: Comment on above: Expected: 02/18/2023, Expires: 3 Start: 02-18-2023 End: 04-20-2023 Lipase [Enzymatic activity/volume] in Serum or Plasma [facility] Work Phone: Comment on above: Expected: 02/18/2023, Expires: 3 Start: 02-15-2023 ANNUAL PCP TEAM CHRONIC DISEASE VISIT ANNUAL PCP TEAM CHRONIC DISEASE VISIT [facility] Start: 02-15-2023 BP CONTROLLED (<130/80) BP CONTROLLED (<130/80) [facility] Start: 02-11-2023 Patient discharge [facility] Start: 02-11-2023 [facility] Start: 02-09-2023 Oxygen therapy [facility] Start: 02-08-2023 [facility] Start: 02-05-2023 Referral to service [facility] Start: 02-04-2023 Referral to service [facility] Start: 02-04-2023 Referral to occupational therapist [facility] Start: 02-04-2023 Following clinical pathway protocol [facility] Start: 02-04-2023 Ambulation without limitation [facility] Start: 02-04-2023 Assessment of risk of venous thromboembolism [facility] Start: 02-04-2023 Insertion of catheter into peripheral vein [facility] Start: 02-04-2023 Providing care according to standard [facility] Start: 02-04-2023 [facility] Start: 02-04-2023 Verification routine [facility] Start: 02-04-2023 Admission procedure [facility] Start: 02-04-2023 End: 02-04-2023 [facility] Start: 02-04-2023 [facility] Start: 12-18-2022 End: 02-17-2023 C reactive protein [Mass/volume] in Serum or Plasma C-REACTIVE PROTEIN (CRP) Lab Routine PMR (polymyalgia rheumatica) ([facility]) Medication management Expected: 12/18/2022, Expires: 02/17/2023 [facility] Work Phone: Comment on above: Expected: 12/18/2022, Expires: 3 Start: 12-18-2022 End: 02-17-2023 Erythrocyte sedimentation rate SED RATE WESTERGREN Lab Routine PMR (polymyalgia rheumatica) ([facility]) Medication management Expected: 12/18/2022, Expires: 02/17/2023 [facility] Work Phone: Comment on above: Expected: 12/18/2022, Expires: Start: 12-12-2022 End: 02-11-2023 Basic metabolic 2000 panel - Serum or Plasma [facility] Work Phone: Comment on above: Expected: 12/12/2022, Expires: 3 Start: 12-07-2022 End: 02-06-2023 C reactive protein [Mass/volume] in Serum or Plasma C-REACTIVE PROTEIN (CRP) Lab Routine PMR (polymyalgia rheumatica) ([facility]) 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 Expected: 12/07/2022, Expires: 02/06/2023 [facility] Work Phone: Comment on above: Expected: 12/07/2022, Expires: 3 Start: 12-07-2022 End: 02-06-2023 Erythrocyte sedimentation rate SED RATE WESTERGREN Lab Routine PMR (polymyalgia rheumatica) ([facility]) Medication management senior care current use of systemic steroids Expected: 12/07/2022, Expires: 02/06/2023 [facility] Work Phone: Comment on above: Expected: 12/07/2022, Expires: 3 Start: 11-22-2022 End: 01-22-2023 C reactive protein [Mass/volume] in Serum or Plasma C-REACTIVE PROTEIN (CRP) Lab Routine PMR (polymyalgia rheumatica) ([facility]) Expected: 11/22/2022, Expires: 01/22/2023 [facility] Work Phone: Comment on above: Expected: 11/22/2022, Expires: 3 Start: 11-22-2022 End: 01-22-2023 Erythrocyte sedimentation rate SED RATE WESTERGREN Lab Routine PMR (polymyalgia rheumatica) ([facility]) Expected: 11/22/2022, Expires: 01/22/2023 [facility] Work Phone: Comment on above: Expected: 11/22/2022, Expires: 3 Start: 11-17-2022 ANNUAL PCP TEAM CHRONIC DISEASE VISIT ANNUAL PCP TEAM CHRONIC DISEASE VISIT [facility] Start: 11-17-2022 BP CONTROLLED (<130/80) BP CONTROLLED (<130/80) [facility] Start: 10-31-2022 End: 12-31-2022 C reactive protein [Mass/volume] in Serum or Plasma C-REACTIVE PROTEIN (CRP) Lab Routine PMR (polymyalgia rheumatica) ([facility]) 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 Medication management Vaccine counseling Expected: 10/31/2022, Expires: 12/31/2022 [facility] Work Phone: Comment on above: Expected: 10/31/2022, Expires: 3 Start: 10-31-2022 End: 12-31-2022 Erythrocyte sedimentation rate SED RATE WESTERGREN Lab Routine PMR (polymyalgia rheumatica) ([facility]) 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 Medication management Vaccine counseling Expected: 10/31/2022, Expires: 12/31/2022 [facility] Work Phone: Comment on above: Expected: 10/31/2022, Expires: 3 Start: 10-09-2022 BP CONTROLLED (<130/80) BP CONTROLLED (<130/80) [facility] in Start: 08-12-2022 ADVANCE DIRECTIVE DISCUSSION ADVANCE DIRECTIVE DISCUSSION [facility] Start: 08-01-2022 End: 10-01-2022 Basic metabolic 2000 panel - Serum or Plasma [facility] Work Phone: Comment on above: Expected: 08/01/2022, Expires: 3 Start: 08-01-2022 End: 10-01-2022 C reactive protein [Mass/volume] in Serum or Plasma [facility] Work Phone: Comment on above: Expected: 08/01/2022, Expires: 3 Start: 08-01-2022 End: 10-01-2022 CBC W Auto Differential panel - Blood [facility] Work Phone: Comment on above: Expected: 08/01/2022, Expires: 3 Start: 08-01-2022 End: 10-01-2022 Erythrocyte sedimentation rate [facility] Work Phone: Comment on above: Expected: 08/01/2022, Expires: 3 Start: 08-01-2022 End: 10-01-2022 Hemoglobin A1c in Blood [facility] Work Phone: Comment on above: Expected: 08/01/2022, Expires: 3 Start: 08-01-2022 End: 10-01-2022 Thyrotropin [Units/volume] in Serum or Plasma [facility] Work Phone: Comment on above: Expected: 08/01/2022, Expires: 3 Start: 07-18-2022 ANNUAL PCP TEAM CHRONIC DISEASE VISIT ANNUAL PCP TEAM CHRONIC DISEASE VISIT [facility] Start: 07-04-2022 End: 09-03-2022 C reactive protein [Mass/volume] in Serum or Plasma [facility] Work Phone: Comment on above: Expected: 07/04/2022, Expires: 3 Start: 07-04-2022 End: 09-03-2022 Erythrocyte sedimentation rate [facility] Work Phone: Comment on above: Expected: 07/04/2022, Expires: 3 Start: 06-22-2022 Mammography [facility] Start: 06-22-2022 Screening for malignant neoplasm of breast Mammogram Screening [facility] Start: 05-31-2022 End: 07-31-2022 C reactive protein [Mass/volume] in Serum or Plasma [facility] Work Phone: Comment on above: Expected: 05/31/2022, Expires: 2 Start: 05-31-2022 End: 07-31-2022 Erythrocyte sedimentation rate [facility] Work Phone: Comment on above: Expected: 05/31/2022, Expires: 2 Start: 05-24-2022 PNEUMOCOCCAL: 65+ (#3) PNEUMOCOCCAL: 65+ (#3) [facility] Start: 05-24-2022 PNEUMOCOCCAL: 65+ (2 - PPSV23 or PCV20) PNEUMOCOCCAL: 65+ (2 - PPSV23 or PCV20) [facility] Start: 05-24-2022 PNEUMOCOCCAL: 65+ (3 - PPSV23 if available, else PCV20) PNEUMOCOCCAL: 65+ (3 - PPSV23 if available, else PCV20) [facility] Start: 05-16-2022 End: 07-16-2022 C reactive protein [Mass/volume] in Serum or Plasma C-REACTIVE PROTEIN (CRP) Lab Routine PMR (polymyalgia rheumatica) ([facility]) Expected: 05/16/2022, Expires: 07/16/2022 [facility] Work Phone: Comment on above: Expected: 05/16/2022, Expires: 2 Start: 05-16-2022 End: 07-16-2022 Erythrocyte sedimentation rate SED RATE WESTERGREN Lab Routine PMR (polymyalgia rheumatica) ([facility]) Expected: 05/16/2022, Expires: 07/16/2022 [facility] Work Phone: Comment on above: Expected: 05/16/2022, Expires: 2 Start: 04-26-2022 End: 04-26-2023 CHALINO BY IFA SCREEN CHALINO BY IFA SCREEN Lab Routine Elevated sed rate Expected: 04/26/2022, Expires: 04/26/2023 [facility] Work Phone: Comment on above: Expected: 04/26/2022, Expires: 3 Start: 04-26-2022 End: 04-26-2023 C reactive protein [Mass/volume] in Serum or Plasma C-REACTIVE PROTEIN (CRP) Lab Routine Elevated sed rate Expected: 04/26/2022, Expires: 04/26/2023 [facility] Work Phone: Comment on above: Expected: 04/26/2022, Expires: 3 Start: 04-26-2022 End: 04-26-2023 Erythrocyte sedimentation rate SED RATE WESTERGREN Lab Routine Elevated sed rate Expected: 04/26/2022, Expires: 04/26/2023 [facility] Work Phone: Comment on above: Expected: 04/26/2022, Expires: 3 Start: 04-26-2022 End: 04-26-2023 Rheumatoid factor [Units/volume] in Serum or Plasma RHEUMATOID FACTOR BL Lab Routine Elevated sed rate Expected: 04/26/2022, Expires: 04/26/2023 [facility] Work Phone: Comment on above: Expected: 04/26/2022, Expires: 3 Start: 04-12-2022 Influenza vaccination [facility] Start: 02-22-2022 COVID-19 VACCINE (4 - Booster for Moderna series) COVID-19 VACCINE (4 - Booster for Moderna series) [facility] Start: 02-08-2022 Influenza vaccination INFLUENZA (#1) [facility] Comment on above: Postponed from 04/12/2021 (Declined at t his time) Start: 01-16-2022 End: 03-18-2022 Urinalysis complete panel - Urine URINALYSIS, WITH MICROSCOPIC Lab Routine Proteinuria, unspecified type Expected: 01/16/2022, Expires: 03/18/2022 [facility] Work Phone: Comment on above: Expected: 01/16/2022, Expires: 2 Start: 12-18-2021 COVID-19 VACCINE (4 - Booster for Moderna series) COVID-19 VACCINE (4 - Booster for Moderna series) [facility] Start: 12-08-2021 End: 02-07-2022 Bacteria identified in Urine by Culture URINE CULTURE Microbiology Routine Microscopic hematuria Expected: 12/08/2021, Expires: 02/07/2022 [facility] Work Phone: Comment on above: Expected: 12/08/2021, Expires: 2 Start: 11-17-2021 End: 01-17-2022 Bacteria identified in Urine by Culture URINE CULTURE Microbiology Routine Urinary tract infection without hematuria, site unspecified Expected: 11/17/2021, Expires: 01/17/2022 [facility] Work Phone: Comment on above: Expected: 11/17/2021, Expires: 2 Start: 11-17-2021 End: 01-17-2022 CBC W Auto Differential panel - Blood CBC + DIFF Lab Routine Essential hypertension Expected: 11/17/2021, Expires: 01/17/2022 [facility] Work Phone: Comment on above: Expected: 11/17/2021, Expires: 2 Start: 11-17-2021 End: 01-17-2022 Comprehensive metabolic 2000 panel - Serum or Plasma COMP METABOLIC PANEL Lab Routine Essential hypertension Expected: 11/17/2021, Expires: 01/17/2022 [facility] Work Phone: Comment on above: Expected: 11/17/2021, Expires: 2 Start: 11-17-2021 End: 01-17-2022 LIPID PANEL BASIC LIPID PANEL BASIC Lab Routine Essential hypertension Expected: 11/17/2021, Expires: 01/17/2022 [facility] Work Phone: Comment on above: Expected: 11/17/2021, Expires: 2 Start: 11-17-2021 End: 01-17-2022 Thyrotropin [Units/volume] in Serum or Plasma TSH BLD Lab Routine Nontoxic multinodular goiter Expected: 11/17/2021, Expires: 01/17/2022 [facility] Work Phone: Comment on above: Expected: 11/17/2021, Expires: 2 Start: 11-17-2021 End: 01-17-2022 Urinalysis complete panel - Urine URINALYSIS, WITH MICROSCOPIC Lab Routine Urinary tract infection without hematuria, site unspecified Expected: 11/17/2021, Expires: 01/17/2022 [facility] Work Phone: Comment on above: Expected: 11/17/2021, Expires: 2 Start: 08-12-2021 ADVANCE DIRECTIVE DISCUSSION ADVANCE DIRECTIVE DISCUSSION [facility] Start: 04-26-2021 COVID-19 VACCINE (3 - Booster for Moderna series) COVID-19 VACCINE (3 - Booster for Moderna series) [facility] Start: 2020 PNEUMOVAX AGE 65 AND OVER WITH 5YR LOOKBACK (#1) PNEUMOVAX AGE 65 AND OVER WITH 5YR LOOKBACK (#1) [facility] Start: 2015 RSV Vaccine (1 - 1-dose 60+ series) RSV Vaccine (1 - 1-dose 60+ series) [facility] Start: 2015 RSV Vaccine (1 - Risk 60-74 years 1-dose series) RSV Vaccine (1 - Risk 60-74 years 1-dose series) [facility] Start: 07-12-2014 Medicare Annual Wellness Visit Medicare Annual Wellness Visit [facility] Start: 2005 SHINGRIX VACCINE (1 of 2) SHINGRIX VACCINE (1 of 2) [facility] Start: 2000 COLOGUARD (FIT-DNA) COLOGUARD (FIT-DNA) [facility] Start: [address] COLONOGRAPHY [facility] Start: 2000 FECAL OCCULT BLOOD FECAL OCCULT BLOOD [facility] Start: 2000 Screening for malignant neoplasm of colon [facility] Start: 2000 SIGMOIDOSCOPY SIGMOIDOSCOPY [facility] Start: 1974 Shingrix Vaccine (1 of 2) Shingrix Vaccine (1 of 2) [facility] Start: 1974 Urine microalbumin profile [facility] Start: 1973 Anxiety Screening Anxiety Screening [facility] Start: 1973 BP CONTROLLED (<130/80) BP CONTROLLED (<130/80) [facility] Albumin [Moles/volum e] in Serum or Plasma [facility] Albumin/Globulin ratio [facility] Bacteria identified in Urine by Culture Urine Culture [facility] End: 06-14-2025 BD DXA TRABECULAR BONE SCORE (TBS) BD DXA TRABECULAR BONE SCORE (TBS) Radiology Routine Other osteoporosis 1 Occurrences starting 05/15/2024 until 06/14/2025 [facility] Comment on above: 1 Occurrences starting 05/15/2024 until 06/14/2025 End: 09-20-2023 C reactive protein [Mass/volume] in Serum or Plasma C-REACTIVE PROTEIN (CRP) Lab Routine PMR (polymyalgia rheumatica) (HCC) Once per month for 6 Occurrences starting 09/20/2022 until 09/20/2023 [facility] Work Phone: Comment on above: Once per month for 6 Occurrences startin g 09/20/2022 until 09/20/2023 Clostridioides diffi cile [Presence] in Stool [facility] CYTOLOGY NON-BEER COIL CLEANER CYTOLOGY NON-GY N Lab Routine Thyroid nodule 10/22/2024 2:33 PM EDT [facility] End: 03-06-2025 DBT Breast - bilateral screening KAM SCREENING W SURESH Radiology Routine Encounter for screening mammogram for breast cancer 1 Occurrences starting 02/05/2024 until 03/06/2025 [facility] Work Phone: Comment on above: 1 Occurrences starting 02/05/2024 until 03/06/2025 End: 02-04-2026 DBT Breast - bilateral screening KAM SCREENING W SURESH Radiology Routine Encounter for screening mammogram for breast cancer 1 Occurrences starting 01/05/2025 until 02/04/2026 [facility] Work Phone: Comment on above: 1 Occurrences starting 01/05/2025 until 02/04/2026 End: 06-14-2025 DXA Skeletal system.axial Views for bone density DXA-AXIAL SKELETON Radiology Routine Other osteoporosis 1 Occurrences starting 05/15/2024 until 06/14/2025 [facility] Comment on above: 1 Occurrences starting 05/15/2024 until 06/14/2025 DXA Skeletal system.axial Views for bone density DXA-AXIAL SKELETON Radiology Routine Other osteoporosis 06/26/2024 9:46 AM EST [facility] Work Phone: ECG COMPLETE ECG COMPLETE ECG Routine Aneurysm of ascending aorta without rupture (HCC) Ordered: 10/09/2023 [facility] Work Phone: Comment on above: Ordered: 10/09/2023 End: 10-08-2023 Echocardiography ECHO Cardiology Routine Aneurysm of ascending aorta without rupture (HCC) 1 Occurrences starting 10/08/2022 until 10/08/2023 [facility] Work Phone: Comment on above: 1 Occurrences starting 10/08/2022 until 10/08/2023 End: 06-26-2024 Echocardiography ECHO Cardiology Routine Aneurysm of ascending aorta without rupture (HCC) 1 Occurrences starting 06/26/2023 until 06/26/2024 [facility] Work Phone: Comment on above: 1 Occurrences starting 06/26/2023 until 06/26/2024 Electrophoresis: [id number] [facility] Electrophoresis: rm ma globulin [facility] ENDO THYROID/LYMPH N ODE FNA ENDO THYROID/LYMPH NODE FNA Procedures Routine Thyroid nodule Ordered: 10/22/2024 [facility] Work Phone: Comment on above: Ordered: 10/22/2024 End: 09-20-2023 Erythrocyte sedimentation rate SED RATE WESTERGREN Lab Routine PMR (polymyalgia rheumatica) (HCC) Once per month for 6 Occurrences starting 09/20/2022 until 09/20/2023 [facility] Work Phone: Comment on above: Once per month for 6 Occurrences startin g 09/20/2022 until 09/20/2023 Globulin measurement [facility] IgA [Mass/volume] in Serum or Plasma [facility] IgG [Mass/volume] in Serum or Plasma [facility] IgM [Mass/volume] in Serum or Plasma [facility] Magnesium [Mass/volu me] in Serum or Plasma [facility] End: 03-19-2024 KAM SCREENING KAM SCREENING Radiology Routine Encounter for screening mammogram for malignant neoplasm of breast 1 Occurrences starting 02/18/2023 until 03/19/2024 [facility] Work Phone: Comment on above: 1 Occurrences starting 02/18/2023 until 03/19/2024 Patient Education [facility] Work Phone: Patient referral [facility] Work Phone: Protein electrophore sis panel - Serum or Plasma [facility] End: 01-06-2024 Radiologic exam chest 2 views XR CHEST 2V FRONTAL/LAT Radiology Routine Right leg pain Leg swelling Dyspnea on exertion 1 Occurrences starting 12/07/2022 until 01/06/2024 [facility] Work Phone: Comment on above: 1 Occurrences starting 12/07/2022 until 01/06/2024 End: 08-03-2023 Screening mammography bi 2-view breast inc cad KAM SCREENING Radiology Routine Screening breast examination 1 Occurrences starting 07/04/2022 until 08/03/2023 [facility] Work Phone: Comment on above: 1 Occurrences starting 07/04/2022 until 08/03/2023 Serum protein electrophoresis [facility] End: 01-06-2024 US DVT LOWER RIGHT US DVT LOWER RIGHT Radiology Routine Right leg pain Leg swelling Dyspnea on exertion 1 Occurrences starting 12/07/2022 until 01/06/2024 [facility] Work Phone: Comment on above: 1 Occurrences starting 12/07/2022 until 01/06/2024 Us soft tissue head & neck real time imge docm US THYROID/PARATHYROID Radiology Routine Nontoxic multinodular goiter 02/27/2022 10:32 AM EDT [facility] Work Phone: End: 06-14-2025 US Thyroid gland US THYROID/PARATHYROID Radiology Routine Thyroid nodule 1 Occurrences starting 05/15/2024 until 06/14/2025 [facility] Work Phone: Comment on above: 1 Occurrences starting 05/15/2024 until 06/14/2025 US Thyroid gland US THYROID/PARA THYROID Radiology Routine Thyroid nodule 06/26/2024 10:29 AM EST [facility] Work Phone: End: 07-13-2023 XR KNEE GENERAL 4V AP BOTH/PA BOTH/LAT/MERC RIGHT XR KNEE GENERAL 4V AP BOTH/PA BOTH/LAT/MERC RIGHT Radiology Routine Right knee pain, unspecified chronicity 1 Occurrences starting 06/13/2022 until 07/13/2023 [facility] Work Phone: Comment on above: 1 Occurrences starting 06/13/2022 until 07/13/2023 [facility] Immunizations Immunization Date Immunization Notes Care Provider [facility] 05-15-2024 COVID-19 vaccine, ag e 12+ yr (PFIZER-BIONTECH [facility]) Mauro Krishnamurthy MD Work Phone: [facility] 05-15-2024 influenza, high dose seasonal, preservative-free Mauro Krishnamurthy MD Work Phone: [facility] 05-15-2024 influenza virus vacc ine, unspecified formulation Patrizia Pabon APRN.CNP Work Phone: [facility] 06-26-2023 COVID-19 vaccine, ag e 12+ yr, 2022- season ([employer]) Mauro Krishnamurthy MD Work Phone: [facility] 06-26-2023 influenza (HD-IIV4) vaccine, age 65+ yr, high dose, quadrivalent, PF (FLUZONE HIGH-DOSE) Mauro Krishnamurthy MD Work Phone: [facility] 06-26-2023 influenza virus vacc ine, unspecified formulation Mauro Krishnamurthy MD Work Phone: [facility] 02-18-2023 pneumococcal polysaccharide vaccine, 23 valent Mauro Krishnamurthy MD Work Phone: [facility] 07-04-2022 influenza, high dose seasonal, preservative-free Dr. Mauro Krishnamurthy Work Phone: [facility] 07-04-2022 influenza, high-dose , quadrivalent vaccine (FLUZONE HIGH DOSE QUADRIVALENT) Mauro Krishnamurthy MD Work Phone: [facility] 07-04-2022 influenza virus vacc ine, unspecified formulation Radha Willis MD Work Phone: [facility] 10-23-2021 Covid (Moderna) Dr. Mauro Krishnamurthy Work Phone: [facility] 05-24-2021 pneumococcal conjuga te vaccine, [address] Mauro Krishnamurthy Work Phone: [facility] 11-24-2020 Covid (Moderna) Dr. Mauro Krishnamurthy Work Phone: [facility] 10-27-2020 Covid (Moderna) Dr. Mauro Krishnamurthy Work Phone: [facility] 05-25-2016 influenza, injectabl e, quadrivalent, contains preservative Mauro Krishnamurthy MD Work Phone: [facility] 05-25-2016 influenza, injectabl e, quadrivalent, preservative free Dr. Mauro Krishnamurthy Work Phone: [facility] 05-25-2016 influenza, seasonal, injectable Dr. Mauro Krishnamurthy Work Phone: [facility] 05-12-[address] Mauro Krishnamurthy Work Phone: [facility] 05-12-2016 influenza, seasonal, injectable, preservative free Mauro Krishnamurthy MD Work Phone: [facility] 05-05-2014 influenza, injectabl e, quadrivalent, preservative free Dr. Mauro Krsihnamurthy Work Phone: [facility] 05-05-2014 influenza, seasonal, injectable Mauro Krishnamurthy MD Work Phone: [facility] 10-02-2013 pneumococcal polysaccharide vaccine, 23 valent Mauro Krishnamurthy MD Work Phone: [facility] 10-02-[address] Adan Krishnamurthy Work Phone: [facility] Work Phone: 10-02-2013 pneumococcal vaccine , unspecified formulation [facility] Payers Date Payer Category Payer Medicaid [id number] 2024 Self-pay [id number] 2019 [facility] [id number] 2018 Medicaid [employer] MEDICAID [id number] 2018-Present [phone] [address] [place] [address] Medicaid [id number] 2018 Medicaid [id number] 2014 Medicare [id number] 2014 Medicare MEDICARE MEDICAR E A AND B [id number] 2014-Present [phone] [address] [address] [place] [address] Medicare [id number] 2014 Medicare [id number] 2014 Medicare [id number] Unknown [id number] Unknown [id number] Unknown [id number] Unknown [id number] Unknown [id number] Unknown [id number] Social History Date Type Detail Facility Start: 10-18-2021 End: 02-25-2023 Tobacco smoking status [facility] Unknown if ever smoked [facility] Start: 05-20-2019 None [facility] Start: 05-20-2019 Alone [facility] Start: 05-20-2019 Non-smoker [facility] Start: 1955 Sex Assigned At Female [facility] Start: 02-24-2014 End: 05-15-2024 Tobacco smoking status [place] Ex-smoker [facility] Work Phone: Start: 05-29-1999 End: 05-29-2011 History of tobacco use Current smoker [facility] Work Phone: Start: 05-29-1999 End: 05-29-2011 History of tobacco use Cigarette Smoker [facility] Work Phone: Start: 02-24-2014 End: 12-12-2022 Cigarettes smoked current (pack per day) - Reported 0.5 [facility] Start: 02-24-2014 End: 05-15-2024 Tobacco use and exposure Former smokeless tobacco user [facility] Work Phone: Start: 10-12-2021 End: 10-22-2024 Alcohol intake Ex-drinker (finding) [facility] Start: 1955 Sex Assigned At Not on file [facility] Start: 10-19-2020 End: 07-04-2022 Exposure to SARS-CoV-2 (event) Not sure [facility] Start: 12-12-2022 End: 02-18-2023 Tobacco use panel [facility] Start: 07-13-2012 Adult Depression Screening Assessment 1 [facility] How often to you hav e a drink containing alcohol? Never [facility] Goals Date Patient Goal Desired Activity /State Personal health goal Personal health goal Comment on above: Formatting of this n ote might be different from the original. Pt will continue home PT exercises to increase strength Personal health goal Comment on above: Formatting of this n ote might be different from the original. States I want to get better and get out around town Comment on above: Formatting of this n ote might be different from the original. Pt will continue home PT exercises to increase strength Comment on above: Formatting of this n ote might be different from the original. States I want to get better and get out around town Functional Status Date Assessment Result Facility 03-05-2025 Total score [AUDIT-C] 0 03/05/20 25 1:56 PM Farrah Torres MA [facility] 03-02-2023 Functional status Chair [facility] Work Phone: 02-23-2023 Functional status Ambulates [facility] Work Phone: 02-11-2023 Functional status Ambulates [facility] Work Phone: 11-07-2021 Functional status Activity Abili ty Independent [facility] Work Phone: 11-06-2021 Functional status Ambulates;Up ad adalgisa [facility] Work Phone: 10-18-2021 Functional status Activity Abili ty With Assist of 1 [facility] Work Phone: 10-18-2021 Functional status Ambulates [facility] Work Phone: 11-16-2014 Are you deaf, or do you have serious difficulty hearing No 11/16/2014 2:55 PM EDNicole Alberto RN No [facility] 11-16-2014 Are you blind, or do you have serious difficulty seeing, even when wearing glasses No 11/16/2014 2:55 PM Nicole Bernardo RN No [facility] 11-16-2014 Do you have serious difficulty walking or climbing stairs No 11/16/2014 2:55 PM Nicole Bernardo RN No [facility] 11-16-2014 Do you have difficul ty dressing or bathing No 11/16/2014 2:55 PM Nicole Bernardo RN No [facility] 11-16-2014 Because of a physica l, mental, or emotional condition, do you have difficulty doing errands alone such as visiting a physician's office or shopping No 11/16/2014 2:55 PM Nicole Bernardo RN No [facility] Mental Status Date Assessment Result Facility 03-02-2023 Cognitive function Voice/Name [facility] Work Phone: 02-23-2023 Cognitive function Voice/Name [facility] Work Phone: 02-11-2023 Cognitive function Voice/Name [facility] Work Phone: 12-12-2022 Cognitive function Level Of Cons ciousness Awake;Alert;Appropriate [facility] Work Phone: 04-13-2022 Cognitive function Level Of Cons ciousness Awake;Alert;Appropriate;Fol lows Commands [facility] Work Phone: 11-07-2021 Cognitive function Voice/Name [facility] Work Phone: 11-05-2021 Cognitive function Appropriate;Cooperativ e [facility] Work Phone: 10-18-2021 Cognitive function Voice/Name [facility] Work Phone: 11-16-2014 Because of a physica l, mental, or emotional condition, do you have serious difficulty concentrating, remembering, or making decisions No 11/16/2014 2:55 PM EDT Nicole Valadez RN No [facility] Clinical Notes 04-09-2013 to 05-31-2025 Telephone Encounter - Halle Miller - 04/27/2025 9:13 AM EDTTelephone Encounter - Alexx Milner, Halle - 04/27/2025 9:13 AM EDTTelephone Encounter - Abbe Higgins RN - 03/30/2025 10:36 AM EDT Note Date & Type Note Facility 05-31-2025 Note HNO ID: [id number] Author: MICHELLE MOORE PA-C Service: ? Author Type: Physician Process Analyst Type: Progress Notes Filed: 06/10/2025 13:35 Note Text: Michelle Moore PA-C Department of Orthopaedics Orthopaedics [address] [facility] [address] Dept: [phone] Dept May 31, 2025 CHIEF COMPLAINT: Pain of the Right Knee Augustine is a 69-year-old female with a history of severe right knee arthritis, presenting for evaluation of a bubble on the back of the right knee. Right Knee Pain: - Noticed a bubble on the back of the right knee. - Long history of right knee issues, including severe arthritis. - Uses a walker or cane at home due to knee pain and balance issues. - Feels crooked and has poor balance. - Reports a crunchy sensation in the knee and difficulty straightening it. - Ice provides some relief. - History of cortisone injections in 2016 with some relief. - Interested in trying injections again to relieve pain and improve mobility. - Engages in stretching exercises. Right Leg Fracture: - Believes the fracture never healed properly, contributing to current knee issues. Pancreatitis: - Multiple hospitalizations for pancreatitis. - Gallbladder removed by Dr. Juárez, but still experiences digestive issues. - Unable to take certain medications for arthritis pain due to digestive issues; only takes acetaminophen occasionally. ASSESSMENT: M17.11 Primary osteoarthritis of right knee Z68.41 Body mass index (BMI) 40.0-44.9, adult ([facility]) PLAN: 1. Primary osteoarthritis of right knee (M17.11) - Chronic, severe right knee OA with worsening joint space narrowing and subluxation on X-rays compared to 2022. 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 - Discussed that MRI would not alter management given severity of OA. - Discussed treatment options: cortisone injection, gel injection, and total knee replacement. - Administered cortisone injection today; may repeat in 91 days if effective. - If cortisone not effective, may try gel injection after 1 week. - Advised use of ice and heat for symptomatic relief. - Discussed need for optimization of medical conditions and weight loss prior to considering knee replacement. - Encouraged patient to discuss surgical risk with GI and other specialists. - Discussed potential benefits and limitations of injections and surgery; patient expressed understanding. 2. Body mass index (BMI) 40.0-44.9, adult (HCC) (Z68.41) - BMI 44; discussed need to reduce BMI to <40 to meet surgical criteria for knee replacement. - Encouraged weight loss and optimization of medical conditions prior to surgery. Ms. Augustine Pena was advised as to contrast therapies and/or to take analgesics/anti-inflammatories as needed and all contraindications were reviewed. OBJECTIVE: Ms. Augustine Pena is a pleasant 69 year old in no apparent distress. Gen:LMP 06/17/2016 nl development, obese, no deformities ENT: Normocephalic, normal hearing, moist mucosa CV: Pulses:DP/PT= 2+ and symmetric, capillary refill < 2 secs, no peripheral edema/varicosities Skin: no rash, bruising or lesions. Good turgor. Psych: cooperative and appropriate, alert and oriented x 3, good mood and affect. Musculoskeletal: KNEE EXAM: Right: Alignment: Fixed Valgus Range of motion is 15 degrees in extension and 80 degrees of flexion. Extension La-20 degrees Pain with ROM: Yes Effusion: Moderate Tender to the palpation of Pes anserine bursa, Patellar tendon, Posterior Knee, Medial femoral condyle, Lateral femoral condyle, Medial joint line, and Lateral joint line Pain with patellar compression: Yes Stability: Anterior/Posterior stable and Varus/Valgus stable Neurovascular Status: Sensation Intact, Moves foot and ankle up AND down, and 2+ dorsalis pedis In addition to the comprehensive evaluation, assessment and plan outlined above, and as a distinct and separate element to the visit today, separate from weight loss discussion , we have made the determination to proceed with an injection to aid in the management of the patient's condition. We discussed the risks, benefits, alternatives and expected outcomes of this injection in detail, and the patient agreed to proceed. The procedure was performed as detailed below. Large Joint Arthro/Inj 05/31/2025 1:11 PM Large Joint Arthro/Inj: R knee joint 05/31/2025 1:34 PM The procedure site was prepped in the usual sterile fashion. Site: R knee joint Medications: 6 mg betamethasone acetate-betamethasone sodium phosphate 6 mg/mL Anesthetics: 5 mL lidocaine (PF) 10 mg/mL (1 %) Outcome: Tolerated well, no immediate complications Post-injection instructions were reviewed with the patient and the patient voiced understanding of these instructions. Informed Consent Consent Obtained: Verbal Pixley Protocol A moment to CARE was completed. SIGN IN Sign in communication not a (more content not included)... [facility] 05-31-2025 Note HNO ID: [id number] Author: DEE DEE JACOBS MA Service: ? Author Type: Microbiology Soil Scientist Type: Progress Notes Filed: 06/04/2025 09:48 Note Text: AMB ROOMING INTAKE FLOWSHEET DATA Pain Pain Location: Knee-Right Description: Throbbing, Sharp Duration Amount of Time: (ongoing) Frequency: Continuous Intervention/Comfort measure: Other: See comment (Kavita elaine) [facility] 04-27-2025 Telephone encounter Note Prescription Refill Information The patient has been identified by name and date of : Yes Caregiver verified no other encounters exist for this prescription request: Yes Caregiver confirmed with patient/requestor that no other refills are due, in the near future, with this provider at this time: Yes The last office visit in the department: 03-05-25 Does the patient have a future office visit with this provider/department: Yes Requested Prescriptions Pending Prescriptions Disp Refills calcium carbonate 600 mg-cholecalciferol 400 units 600 mg-10 mcg (400 unit) tab 90 tablet 3 Sig: Take 1 tablet by mouth once daily. Halle Milner April 27, 2025 9:13 AM [facility] 04-27-2025 Miscellaneous Notes Prescription Refill Information The patient has been identified by name and date of : Yes Caregiver verified no other encounters exist for this prescription request: Yes Caregiver confirmed with patient/requestor that no other refills are due, in the near future, with this provider at this time: Yes The last office visit in the department: 03-05-25 Does the patient have a future office visit with this provider/department: Yes Requested Prescriptions Pending Prescriptions Disp Refills calcium carbonate 600 mg-cholecalciferol 400 units 600 mg-10 mcg (400 unit) tab 90 tablet 3 Sig: Take 1 tablet by mouth once daily. Halle Milner April 27, 2025 9:13 AM documented in this encounter [facility] 03-30-2025 Telephone encounter Note The patient has been identified by name and date of : Yes Caregiver verified no other encounters exist for this prescription request: Yes Caregiver confirmed with patient/requestor that no other refills are due, in the near future, with this provider at this time: Yes The last office visit in the department: 03/05/2025 Does the patient have a future office visit with this provider/department: Yes 09/10/2025 Requested Prescriptions Pending Prescriptions Disp Refills ergocalciferol 50,000 unit capsule (VITAMIN D2, DRISDOL) 12 capsule 1 Sig: Take 1 capsule by mouth one time a week. Abbe Higgins RN March 30, 2025 10:38 AM [facility] 03-30-2025 Miscellaneous Notes The patient has been identified by name and date of : Yes Caregiver verified no other encounters exist for this prescription request: Yes Caregiver confirmed with patient/requestor that no other refills are due, in the near future, with this provider at this time: Yes The last office visit in the department: 03/05/2025 Does the patient have a future office visit with this provider/department: Yes 09/10/2025 Requested Prescriptions Pending Prescriptions Disp Refills ergocalciferol 50,000 unit capsule (VITAMIN D2, DRISDOL) 12 capsule 1 Sig: Take 1 capsule by mouth one time a week. Abbe Higgins RN March 30, 2025 10:38 AM documented in this encounter [facility] 03-05-2025 Instructions Patrizia Pabon APRN.GROUNDS/MAINTENANCE SPECIALIST - 03/05/2025 2:32 PM EDT 1) Schedule prolia injection (medication ordered) 2) Consult orthopedics 3) Get labs done 4) Mammogram ordered Screening schedule The following prevention plan is recommended: DTaP,Tdap,Td Vaccine(1 - Tdap) Never done Shingrix Vaccine(1 of 2) Never done Medicare Annual Wellness Visit Never done RSV Vaccine(1 - Risk 60-74 years 1-dose series) Never done WHAT YOU CAN DO TO PREVENT FALLS Many falls can be prevented. By making some changes, you can lower your chances of falling. Four things YOU can do to prevent falls for you* and your caregiver 1. Begin a regular exercise program Exercise is one of the most important ways to lower your chances of falling. It makes you stronger and helps you feel better. Exercises that improve balance and coordination (like Chris Chi) are the most helpful. Lack of exercise leads to weakness and increases your chances of falling. Ask your doctor or health care provider about the best type of exercise program for you. 2. Have your health care provider review your medicines Have your doctor or pharmacist review all the medicines you take, even [id number] medicines. As you get older, the way medicines work in your body can change. Some medicines, or combinations of medicines, can make you sleepy or dizzy and can cause you to fall. 3. Have your vision checked Have your eyes checked by an eye doctor at least once a year. You may be wearing the wrong glasses or have a condition like glaucoma or cataracts that limits your vision. Poor vision can increase your chances of falling. 4. Make your home safer About half of all falls happen at home. To make your home safer: Remove things you can trip over (like papers, books, clothes, and shoes) from stairs and places where you walk. Remove small throw rugs or use double-sided tape to keep the rugs from slipping. Keep items you use often in cabinets you can reach easily without using a step stool. Have grab bars put in next to your toilet and in the tub or shower. Use non-slip mats in the bathtub and on shower floors. Improve the lighting in your home. As you get older, you need brighter lights to see well. Hang light-weight curtains or shades to reduce glare. Have handrails and lights put in on all staircases. Wear shoes both inside and outside the house. Avoid going barefoot or wearing slippers. For more information, contact: Centers for Disease Control and Prevention www.cdc.gov/injury * This information may not apply if you have certain medical conditions. documented in this encounter [facility] 03-05-2025 Note HNO ID: [id number] Author: PATRIZIA PABON APRN.TARI Service: ? Author Type: Nurse Practitioner Type: Progress Notes Filed: 03/05/2025 14:51 Note Text: Chief Reason For Appointment No chief complaint on file. Augustine Pena is a 69 year old female who presents for annual exam. Last office visit date: 05/15/2024 Accompanied By self only Have you had any critical events, hospital stays, ER visits, surgeries or procedures since your last visit here in our office: No Specialists/Other Healthcare Providers Seen: Patient Care Team: Mauro Krishnamurthy MD as PCP - General (Family Medicine) Belle Neumann APRN.CNP as Information Systems Architect (Family Medicine) Patrizia Pabon APRN.CNP as Information Systems Architect (Family Medicine) Concerns today: Needs to get back into scheduling her Prolia shots HPI Needs to get Prolia set up[ Active Problems ACTIVE PROBLEM LIST Hypophosphatemia - 03/02/2023 Chronic Pancreatitis (Hcc) - 03/02/2023 Benign Paroxysmal Positional Vertigo - 02/18/2023 Dehydration - 02/18/2023 Disorder of Tooth - 02/18/2023 Former Smoker - 02/18/2023 Injury of Kidney - 02/18/2023 Orthostatic Hypotension - 02/18/2023 Polyp of Colon - 02/18/2023 Swelling of Lower Extremity - 02/18/2023 Urinary Tract Infection - 02/18/2023 Giant Cell Arteritis (Hcc) - 01/17/2023 Osteoarthritis - 11/07/2022 Pmr (Polymyalgia Rheumatica) (Hcc) - 08/23/2022 Dysphagia - 09/25/2021 Age-Related Osteoporosis Without Current Pathological Fracture - 07/18/2021 Obesity, Class III, BMI >= 40 - 04/10/2021 Carpal Tunnel Syndrome, Left - 10/29/2017 Comment: Added automatically from request for surgery [id number] Essential Hypertension - 11/28/2016 Thoracic Ascending Aortic Aneurysm - 11/28/2016 Functional Dyspepsia - 10/11/2016 Hypoglycemia, Unspecified - 10/11/2016 Major Depressive Disorder, Recurrent, Mild - 10/11/2016 Muscle Weakness (Generalized) - 10/11/2016 Constipation, Unspecified - 10/11/2016 Primary Osteoarthritis of Right Knee - 06/14/2016 Chronic Pain of Right Knee - 06/14/2016 History of Colonic Polyps - 04/05/2016 Hypercholesteremia Complex Endometrial Hyperplasia With Atypia - 03/31/2013 Comment: Focal to EM polyp Nontoxic Multinodular Goiter - 11/28/2011 Comment: 02/28/22-IMPRESSION: Thyroid nodule(s) is/are present. Surveillance imaging is recommended for one or more nodules as detailed in the synoptic report. TI-RADS Category: TR5 ACR Recommendation: TI-RADS 5 nodule. Follow up imaging is advised annually for 5 years. ROS: GENERAL: No weight loss, malaise or fevers/chills HEENT: Negative for frequent or significant headaches, No changes in hearing or vision. NECK: Negative for lumps, goiter, pain and significant neck swelling RESPIRATORY: Negative for cough, hemoptysis, wheezing, dyspnea or shortness of breath CARDIOVASCULAR: Negative for chest pain, leg swelling, orthopnea, or palpitations GI: No nausea, vomiting, or diarrhea/constipation. No hematochezia/melena. No heartburn or reflux symptoms. : No history of dysuria, frequency or incontinence MUSCULOSKELETAL: Negative for joint pain or swelling. SKIN: Negative for lesions, rash, and itching ENDOCRINE: Negative for cold or heat intolerance, polyuria, polydipsia and goiter NEURO: No history of headaches, syncope, paralysis, seizures or tremors MOOD: Negative for depression, anxiety, or suicidal ideation. PAST MEDICAL HISTORY Diagnosis Date Anxiety Depression Hypercholesteremia Hypertension Lung nodules unchanged ct 03/24 Pancreatitis 05/2019 Thoracic aortic aneurysm 09/23 followed by cardiology Thyroid goiter needs follow up in 05/28 PAST SURGICAL HISTORY Procedure Laterality Date COLONOSCOPY 09/25/2021 repeat in 5 years COLONOSCOPY FLX DX W/COLLJ SPEC WHEN PFRMD 03/31/2014 Colonoscopy COLONOSCOPY FLX DX W/COLLJ SPEC WHEN PFRMD 04/05/2016 Colonoscopy (MAC) EGD W/O BRSH SPEC VARICIES INJ 09/25/2021 LAPS SURG CHOLECYSTECTOMY W/CHOLANGIOGRAPHY 10/25/2016 normal IOC NEUROPLASTY AND/TRANSPOS MEDIAN NRV CARPAL TUNNE Right 1989 Carpal tunnel decomp NEUROPLASTY AND/TRANSPOS MEDIAN NRV CARPAL TUNNE Left 12/26/2017 Left carpal tunnel release TOTAL ABDOMINAL HYSTERECT W/WO RMVL TUBE OVARY 10/01/2013 Medication List Current Outpatient Medications Medication Sig Dispense Refill ergocalciferol 50,000 unit capsule (VITAMIN D2, DRISDOL) Take 1 capsule by mouth one time a week. 12 capsule 0 metoprolol succinate ER (TOPROL XL) 25 mg 24 hr tablet Take 1 tablet by mouth once daily. 90 tablet 3 potassium chloride ER (KLOR-CON) 20 mEq tablet Take 1 tablet by mouth once daily. 30 tablet 5 sertraline (ZOLOFT) 100 mg tablet Take 100 mg by mouth once daily. tocilizumab (ACTEMRA ACTPEN) 162 mg/0.9 mL Inject 162mg (1 pen) under the skin one time each week. 4 Each 11 amLODIPine (NORVASC) 10 mg tablet Take 1 tablet by mouth once daily. [address] (more content not included)... [facility] 03-05-2025 History of Present illness Narrative Images from the original note were not included. Chief Reason For Appointment No chief complaint on file. Augustine Pena is a 69 year old female who presents for annual exam. Last office visit date: 05/15/2024 Accompanied By self only Have you had any critical events, hospital stays, ER visits, surgeries or procedures since your last visit here in our office: No Specialists/Other Healthcare Providers Seen: Patient Care Team: Mauro Krishnamurthy MD as PCP - General (Family Medicine) Belle Neumann APRN.TARI as Information Systems Architect (Family Medicine) Patrizia Pabon APRN.TARI as Information Systems Architect (Family Medicine) Concerns today: Needs to get back into scheduling her Prolia shots HPI Needs to get Prolia set up[ Active Problems ACTIVE PROBLEM LIST Hypophosphatemia - 03/02/2023 Chronic Pancreatitis (Hcc) - 03/02/2023 Benign Paroxysmal Positional Vertigo - 02/18/2023 Dehydration - 02/18/2023 Disorder of Tooth - 02/18/2023 Former Smoker - 02/18/2023 Injury of Kidney - 02/18/2023 Orthostatic Hypotension - 02/18/2023 Polyp of Colon - 02/18/2023 Swelling of Lower Extremity - 02/18/2023 Urinary Tract Infection - 02/18/2023 Giant Cell Arteritis (Hcc) - 01/17/2023 Osteoarthritis - 11/07/2022 Pmr (Polymyalgia Rheumatica) ([facility]) - 08/23/2022 Dysphagia - 09/25/2021 Age-Related Osteoporosis Without Current Pathological Fracture - 07/18/2021 Obesity, Class III, BMI >= 40 - 04/10/2021 Carpal Tunnel Syndrome, Left - 10/29/2017 Comment: Added automatically from request for surgery [id number] Essential Hypertension - 11/28/2016 Thoracic Ascending Aortic Aneurysm - 11/28/2016 Functional Dyspepsia - 10/11/2016 Hypoglycemia, Unspecified - 10/11/2016 Major Depressive Disorder, Recurrent, Mild - 10/11/2016 Muscle Weakness (Generalized) - 10/11/2016 Constipation, Unspecified - 10/11/2016 Primary Osteoarthritis of Right Knee - 06/14/2016 Chronic Pain of Right Knee - 06/14/2016 History of Colonic Polyps - 04/05/2016 Hypercholesteremia Complex Endometrial Hyperplasia With Atypia - 03/31/2013 Comment: Focal to EM polyp Nontoxic Multinodular Goiter - 11/28/2011 Comment: 02/28/22-IMPRESSION: Thyroid nodule(s) is/are present. Surveillance imaging is recommended for one or more nodules as detailed in the synoptic report. TI-RADS Category: TR5 ACR Recommendation: TI-RADS 5 nodule. Follow up imaging is advised annually for 5 years. ROS: GENERAL: No weight loss, malaise or fevers/chills HEENT: Negative for frequent or significant headaches, No changes in hearing or vision. NECK: Negative for lumps, goiter, pain and significant neck swelling RESPIRATORY: Negative for cough, hemoptysis, wheezing, dyspnea or shortness of breath CARDIOVASCULAR: Negative for chest pain, leg swelling, orthopnea, or palpitations GI: No nausea, vomiting, or diarrhea/constipation. No hematochezia/melena. No heartburn or reflux symptoms. : No history of dysuria, frequency or incontinence MUSCULOSKELETAL: Negative for joint pain or swelling. SKIN: Negative for lesions, rash, and itching ENDOCRINE: Negative for cold or heat intolerance, polyuria, polydipsia and goiter NEURO: No history of headaches, syncope, paralysis, seizures or tremors MOOD: Negative for depression, anxiety, or suicidal ideation. PAST MEDICAL HISTORY Diagnosis Date Anxiety Depression Hypercholesteremia Hypertension Lung nodules unchanged ct 03/24 Pancreatitis 05/2019 Thoracic aortic aneurysm 09/23 followed by cardiology Thyroid goiter needs follow up in 05/28 PAST SURGICAL HISTORY Procedure Laterality Date COLONOSCOPY 09/25/2021 repeat in 5 years COLONOSCOPY FLX DX W/COLLJ SPEC WHEN PFRMD 03/31/2014 Colonoscopy COLONOSCOPY FLX DX W/COLLJ SPEC WHEN PFRMD 04/05/2016 Colonoscopy (MAC) EGD W/O [facility] SPEC VARICIES INJ 09/25/2021 LAPS SURG CHOLECYSTECTOMY W/CHOLANGIOGRAPHY 10/25/2016 normal IOC NEUROPLASTY &/TRANSPOS MEDIAN NRV CARPAL TUNNE Right 1989 Carpal tunnel decomp NEUROPLASTY &/TRANSPOS MEDIAN NRV CARPAL TUNNE Left 12/26/2017 Left carpal tunnel release TOTAL ABDOMINAL HYSTERECT W/WO RMVL TUBE OVARY 10/01/2013 Medication List Current Outpatient Medications Medication Sig Dispense Refill ergocalciferol 50,000 unit capsule (VITAMIN D2, DRISDOL) Take 1 capsule by mouth one time a week. 12 capsule 0 metoprolol succinate ER (TOPROL XL) 25 mg 24 hr tablet Take 1 tablet by mouth once daily. 90 tablet 3 potassium chloride ER (KLOR-CON) 20 mEq tablet Take 1 tablet by mouth once daily. 30 tablet 5 sertraline (ZOLOFT) 100 mg tablet Take 100 mg by mouth once daily. tocilizumab (ACTEMRA ACTPEN) 162 mg/0.9 mL Inject 162mg (1 pen) under the skin one time each week. 4 Each 11 amLODIPine (NORVASC) 10 mg tablet Take 1 tablet by mouth once daily. [address] (PROTONIX) 40 mg tablet Take 1 tablet by mouth once daily. 90 tablet 3 calcium carbonate 600 mg-cholecalciferol 400 units 600 mg-10 mcg (400 unit) tab Take 1 tablet by mouth once daily. 90 tablet 3 ZENPEP 40,000-126,000- 168,000 unit delayed release capsule buPROPion XL (WELLBUTRIN XL) 150 mg 24 hr tablet Take 150 mg by mouth once daily. ibuprofen (MOTRIN ORAL) Take 600 mg by mouth as needed. nystatin (MYCOSTATIN) cream Apply 1 application to affected area twice daily. (Patient taking differently: Apply 1 application to affected area two times a day as needed for dry skin.) 45 g 0 scopolamine (TRANSDERM-SCOP) patch 1.5 mg/72 hr (delivers 1 mg over 3 days) Apply 1 Patch as directed every 72 hours. 24 Patch 0 Shower Chair with Back once daily. Use as directed 1 Each 0 sertraline (ZOLOFT) 50 mg tablet Take 50 mg by mouth once daily. Taking 150 mg Daily Incontinence Pants, Reusable misc 5 Units continuous. 6 Each 2 No current facility-administered medications for this visit. Weight Summary: Weight Change: Body mass index is 44.59 kg/m . Last Wt 03/05/25 : 107 kg (236 lb) 10/22/24 : 101 kg (222 lb 9.6 oz) 10/09/24 : 100.9 kg (222 lb 6.4 oz) 05/22/24 : 98.9 kg (218 lb) 05/15/24 : 97.5 kg (215 lb) Physical Exam: General Appearance: well appearing- presents in a wheelchair, alert and oriented. Skin: no suspicious lesion, no rash, no open sores Head: normocephalic, no obvious masses, lesions, tenderness or abnormalities. Eyes: Anicteric sclera. Pupils are equally round and reactive to light. 2mm danya. Extraocular movements are intact. No nystagmus. Fundi benign. Ears: external ears normal, canals clear, TM's normal. Hearing to conversational voice intact. Nose/Sinuses: nares normal, septum midline, mucosa normal, no drainage or sinus tenderness. Oropharynx: lips, mucosa, and tongue normal, oropharynx normal. Edentuous. Neck: trachea midline, thyroid without mass or nodularity, thyroid moves normally with swallow, no regional lymphadenopathy. Carotids normal upstroke, no bruit or thrill. Back:no pain to palpation of vertebrae, no percussion tenderness over spine. Lungs: Chest rise & fall symmetrical, Lungs clear to auscultation. No wheezing or rhonchi. No rales. Abdomen: normal bowel sounds, no mass, non-tender Heart: S1S2, no gallop, no rub, no murmur Lymph Nodes: no lymphadenopathy. Ext: no clubbing, cyanosis or edema. Mood: bright affect, speech clear, answers questions appropriately SCREENINGS Health Maintenance Listing DTaP,Tdap,Td Vaccine(1 - Tdap) Shingrix Vaccine(1 of 2) Medicare Annual Wellness Visit RSV Vaccine(1 - Risk 60-74 years 1-dose series) Mammogram Screening Advance Directive Discussion TEST RESULTS: Lab Studies: Date of lab studies: check labs fasting - glucose - potassium - Creatinine, gfr - LFTs Lipid: WBC, H&H, Platelets: A1C: Vitamin D: Other: A/P: ASSESSMENT/PLAN: 1. Hypercholesteremia - ICD9: 272.0, ICD10: E78.00 (primary diagnosis) Check fasting labs - COMPREHENSIVE METABOLIC PANEL - LIPID PANEL, FASTING 2. Chronic recurrent pancreatitis (HCC) - ICD9: 577.1, ICD10: K86.1 Better with enzymes - COMPLETE BLOOD COUNT AND DIFFERENTIAL 3. 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HCC) - ICD9: 446.5, ICD10: M31.6 Stable on medication - COMPLETE BLOOD COUNT AND DIFFERENTIAL - VITAMIN B12 4. Obesity, Class III, BMI 40-49.9 (morbid obesity) (HCC) - ICD9: 278.01, ICD10: E66.813 Weight increasing - Eat well program 5. Essential hypertension - ICD9: 401.9, ICD10: I10 - Controlled - Recommend home blood pressure monitoring, to bring results to next visit - Encouraged sodium restriction, DASH or Mediterranean diet - Recommend regular aerobic exercise - COMPREHENSIVE METABOLIC PANEL - MAGNESIUM 6. PMR (polymyalgia rheumatica) (HCC) - ICD9: 725, ICD10: M35.3 Stable - COMPREHENSIVE METABOLIC PANEL 7. Chronic pancreatitis, unspecified pancreatitis type (HCC) - ICD9: 577.1, ICD10: K86.1 Stable on creon - COMPREHENSIVE METABOLIC PANEL 8. Nontoxic multinodular goiter - ICD9: 241.1, ICD10: E04.2 Follows with endocrinology - THYROID STIMULATING HORMONE - Ultrasound in October 9. Primary osteoarthritis of right knee - ICD9: 715.16, ICD10: M17.11 Lost to follow up- reconsult - CONSULT TO ORTHOPAEDICS 10. Age-related osteoporosis without current pathological fracture - ICD9: 733.01, ICD10: M81.0 - Reviewed the need for Calcium and Vitamin D supplements and weight bearing exercise as tolerated - DENOSUMAB 60 MG/ML SUBCUTANEOUS SYRINGE 11. Wellness examination - ICD9: V70.0, ICD10: Z00.00 - Counseled on healthy diet and regular exercise Follow Up Plans: 6 m Augustine Pena is a 69 year old female here for a Medicare wellness visit. Medicare Health Risk Assessment General Health Fair Exercise: Minutes/Day 20 min Exercise: Days/Week 2 days Alcohol: Daily Use Never Alcohol: Drinks/Day Patient does not drink Alcohol: 6 or more drinks Never Feel off balance Yes Concerns: Teeth/Dentures Yes Concerns: Sexual function No Troubled by feelings None of the above Frequency: Eating healthy diet More than half the days ADLs requiring help Grocery shopping; Cooking; Housework; Walking; Driving Safety precautions in home/vehicle Yes Smoke, vape, chews tobacco No Difficulty hearing No Difficulty seeing Yes Current Providers Specialists: I have reviewed specialist-related care of the patient in the medical record. Medical/Family history review Reviewed and updated problem list, medical/surgical/family/social history, medications, and allergies. Opioid use review Opioid Medications (last 90 days) No data to display Anxiety/Depression screening PHQ-2 Score: 0 (Lower risk for depression) Recommendation: no further intervention at this time Cognitive screening Mini Cog Score: 5 Cognitive screening reviewed and No further action needed (score 3-5). Functional Observation Was the patient's Timed Up & Go test unsteady or >= 12 seconds? Yes Advance Care Planning Surrogate decision maker and/or advance care plan documented Measurements BP 127/77 Pulse 60 Wt 107 kg (236 lb) LMP 06/17/2016 SpO2 99% BMI 44.59 kg/m Vision Screening: Follows with optometry/ophthalmology Assessment/Plan Medicare annual wellness visit, subsequent (Z00.00) - Counseled on healthy diet and regular exercise - Fall avoidance information provided - Personalized prevention plan provided documented in this encounter [facility] 02-03-2025 Note HNO ID: [id number] Author: DEE DEE CAMACHO MA Service: ? Author Type: Microbiology Soil Scientist Type: Progress Notes Filed: 02/03/2025 08:48 Note Text: POPULATION HEALTH NAVIGATION OUTREACH Action/FYI Spoke to patient and appointment for AWV with HCC gap closure scheduled. Topic Due (Y or N) Comments Annual Wellness Exam Yes PCP Follow up No Colorectal Cancer Screening No A1C No HTN/Controlling BP No HCC Yes Updated appointment notes No Reason for Outreach Care Gap/HCC or Scheduling Wellness Visits Care Gaps due: Medicare Annual Wellness Visit Patient Contacted: Spoke to patient/parent/or legal guardian Patient identified by name and : Yes Care Gap/HCC/Scheduling Wellness actions taken: Patient scheduled/pended orders: Medicare Annual Wellness Visit 03/05/2025 in [facility] with PATRIZIA PABON - Medicare Wellness, HCC gap closure HCC related Navigation Signature: Dee Dee Camacho MA February 03, 2025 8:47 AM [facility] 02-03-2025 History of Present illness Narrative POPULATION HEALTH NAVIGATION OUTREACH Action/FYI Spoke to patient and appointment for AWV with HCC gap closure scheduled. Topic Due (Y or N) Comments Annual Wellness Exam Yes PCP Follow up No Colorectal Cancer Screening No A1C No HTN/Controlling BP No HCC Yes Updated appointment notes No Reason for Outreach Care Gap/HCC or Scheduling Wellness Visits Care Gaps due: Medicare Annual Wellness Visit Patient Contacted: Spoke to patient/parent/or legal guardian Patient identified by name and : Yes Care Gap/HCC/Scheduling Wellness actions taken: Patient scheduled/pended orders: Medicare Annual Wellness Visit 03/05/2025 in [facility] with PATRIZIA PABON - Medicare Wellness, HCC gap closure HCC related Navigation Signature: Dee Dee Camacho MA February 03, 2025 8:47 AM documented in this encounter [facility] 02-03-2025 Note Patient Outreach (NE TNAV) AUGUSTINE PENA ([id number]) 1955 F Date Time Provider Department 02/03/25 DEE DEE CAMACHO During your visit today, we recorded the following information about you: Dee Dee Camacho MA 02/03/2025 8:48 AM Signed POPULATION HEALTH NAVIGATION OUTREACH Action/FYI Spoke to patient and appointment for AWV with HCC gap closure scheduled. Topic Due (Y or N) Comments Annual Wellness Exam Yes PCP Follow up No Colorectal Cancer Screening No A1C No HTN/Controlling BP No HCC Yes Updated appointment notes No Reason for Outreach Care Gap/HCC or Scheduling Wellness Visits Care Gaps due: Medicare Annual Wellness Visit Patient Contacted: Spoke to patient/parent/or legal guardian Patient identified by name and : Yes Care Gap/HCC/Scheduling Wellness actions taken: Patient scheduled/pended orders: Medicare Annual Wellness Visit 03/05/2025 in [facility] with PATRIZIA PABON - Medicare Wellness, HCC gap closure HCC related Navigation Signature: Dee Dee Camacho MA February 03, 2025 8:47 AM Allergies As of Date: 02/03/2025 (No Known Allergies) Date Reviewed: 10/22/2024 Reviewed by: Radha Reynolds MA - Fully Assessed Reason for Visit: Population Health Navigation Outreach [3910] Cmt: [place]/Workbench/ACO Prescriptions as of 02/03/2025 - ergocalciferol 50,000 unit capsule (VITAMIN D2, DRISDOL) Take 1 capsule by mouth one time a week. - metoprolol succinate ER (TOPROL XL) 25 mg 24 hr tablet Take 1 tablet by mouth once daily. - potassium chloride ER (KLOR-CON) 20 mEq tablet Take 1 tablet by mouth once daily. - sertraline (ZOLOFT) 100 mg tablet Take 100 mg by mouth once daily. - tocilizumab (ACTEMRA ACTPEN) 162 mg/0.9 mL Inject 162mg (1 pen) under the skin one time each week. - amLODIPine (NORVASC) 10 mg tablet Take 1 tablet by mouth once daily. - pantoprazole DR (PROTONIX) 40 mg tablet Take 1 tablet by mouth once daily. - calcium carbonate 600 mg-cholecalciferol 400 units 600 mg-10 mcg (400 unit) tab Take 1 tablet by mouth once daily. - scopolamine (TRANSDERM-SCOP) patch 1.5 mg/72 hr (delivers 1 mg over 3 days) Apply 1 Patch as directed every 72 hours. - ZENPEP 40,000-126,000- 168,000 unit delayed release capsule - Shower Chair with Back once daily. Use as directed - sertraline (ZOLOFT) 50 mg tablet Take 50 mg by mouth once daily. Taking 150 mg Daily - buPROPion XL (WELLBUTRIN XL) 150 mg 24 hr tablet Take 150 mg by mouth once daily. - ibuprofen (MOTRIN ORAL) Take 600 mg by mouth as needed. - nystatin (MYCOSTATIN) cream Apply 1 application to affected area twice daily. - Incontinence Pants, Reusable misc 5 Units continuous. 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] 01/28/2012 09/12/2022 Complex endometrial hyperplasia with atypia [N8*03/31/2013 AAA (abdominal aortic aneurysm) [I71.40] 04/09/2013 Depression [F32.A] 06/26/2023 Lung nodules [R91.8] 05/15/2024 Hypercholesteremia [E78.00] Hypertension [I10] 11/28/2016 History of colonic polyps [Z86.0100] 04/05/2016 Primary osteoarthritis of right knee [M17.11] 06/14/2016 Chronic pain of right knee [M25.561, G89.29] 06/14/2016 Acute biliary pancreatitis without infection or*10/22/2016 06/26/2023 Essential hypertension [I10] 11/28/2016 Thoracic ascending aortic aneurysm (HCC) [I71.2*11/28/2016 Carpal tunnel syndrome, left [G56.02] 10/29/2017 Obesity, Class III, BMI >= 40 [E66.813] 04/10/2021 Age-related osteoporosis without current pathol*07/18/2021 Dysphagia [R13.10] 09/25/2021 PMR (polymyalgia rheumatica) (HCC) [M35.3] 08/23/2022 Ectatic thoracic aorta (HCC) [I77.810] 09/12/2022 09/12/2022 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] 01/17/2023 Acidosis [E87.20] 10/11/2016 04/20/2023 Benign paroxysmal positional vertigo [H81.10] 02/18/2023 Diagnosed: 02/18/2023 Cough [R05.9] 10/11/2016 06/26/2023 Diagnosed: 02/18/2023 Dehydration [E86.0] 02/18/2023 Diagnosed: 02/18/2023 Disorder of tooth [K08.9] 02/18/2023 Diagnosed: 02/18/2023 Former smoker [Z87.891] 02/18/2023 Diagnosed: 02/18/2023 Functional dyspepsia [K30] 10/11/2016 Diagnosed: 02/18/2023 Gastroesophageal reflux disease [K21.9] 02/18/2023 05/15/2024 Diagnosed: 02/18/2023 Hypoglycemia, unspecified [E16.2] 10/11/2016 Diagnosed: 02/18/2023 Injury of kidney [S37.009A] 02/18/2023 Diagnosed: 02/18/2023 Major depressive disorder, recurrent, mild (HCC*10/11/2016 Diagnosed: 02/18/2023 Muscle weakness (generalized) [M62.81] 10/11/2016 Diagnosed: 02/18/2023 Constipation, unspecified [K59.00] 10/11/2016 Diagnosed: 02/18/2023 Orthostatic hypotension [I95.1] 02/18/2023 Diagnosed: 02/18/2023 Osteoarthritis [M19.90] 11/07/2022 Diagnosed: 02/18/2023 Polyp of colon [K63.5] 02/18/2023 Diagnosed: 02/18/2023 Shortne (more content not included)... [facility] 01-05-2025 Telephone encounter Note Prescription Refill Information The patient has been identified by name and date of : Yes Caregiver verified no other encounters exist for this prescription request: Yes Caregiver confirmed with patient/requestor that no other refills are due, in the near future, with this provider at this time: Yes The last office visit in the department: 05-15-24 Does the patient have a future office visit with this provider/department: Yes Requested Prescriptions Pending Prescriptions Disp Refills ergocalciferol 50,000 unit capsule (VITAMIN D2, DRISDOL) 12 capsule 0 Sig: Take 1 capsule by mouth one time a week. metoprolol succinate ER (TOPROL XL) 25 mg 24 hr tablet 90 tablet 3 Sig: Take 1 tablet by mouth once daily. potassium chloride ER (KLOR-CON) 20 mEq tablet 30 tablet 5 Sig: Take 1 tablet by mouth once daily. Halle Milner January 05, 2025 9:07 AM T [facility] 01-05-2025 Miscellaneous Notes Prescription Refill Information The patient has been identified by name and date of : Yes Caregiver verified no other encounters exist for this prescription request: Yes Caregiver confirmed with patient/requestor that no other refills are due, in the near future, with this provider at this time: Yes The last office visit in the department: 05-15-24 Does the patient have a future office visit with this provider/department: Yes Requested Prescriptions Pending Prescriptions Disp Refills ergocalciferol 50,000 unit capsule (VITAMIN D2, DRISDOL) 12 capsule 0 Sig: Take 1 capsule by mouth one time a week. metoprolol succinate ER (TOPROL XL) 25 mg 24 hr tablet 90 tablet 3 Sig: Take 1 tablet by mouth once daily. potassium chloride ER (KLOR-CON) 20 mEq tablet 30 tablet 5 Sig: Take 1 tablet by mouth once daily. Halle Milner January 05, 2025 9:07 AM documented in this encounter [facility] 01-05-2025 Note Patient Outreach (FA MPWS) AUGUSTINE PENA ([id number]) 1955 F Date Time Provider Department 01/05/25 MAURO KRISHNAMURTHY During your visit today, we recorded the following information about you: Allergies As of Date: 01/05/2025 (No Known Allergies) Date Reviewed: 10/22/2024 Reviewed by: Radha Reynolds MA - Fully Assessed Visit Diagnosis:Encounter for screening mammogram for breast cancer [Z12.31] Order(s):KAM PRINCE [[id number]] Order #: [id number] FUTURE Prescriptions as of 02/05/2025 - ergocalciferol 50,000 unit capsule (VITAMIN D2, DRISDOL) Take 1 capsule by mouth one time a week. - metoprolol succinate ER (TOPROL XL) 25 mg 24 hr tablet Take 1 tablet by mouth once daily. - potassium chloride ER (KLOR-CON) 20 mEq tablet Take 1 tablet by mouth once daily. - sertraline (ZOLOFT) 100 mg tablet Take 100 mg by mouth once daily. - tocilizumab (ACTEMRA ACTPEN) 162 mg/0.9 mL Inject 162mg (1 pen) under the skin one time each week. - amLODIPine (NORVASC) 10 mg tablet Take 1 tablet by mouth once daily. - pantoprazole DR (PROTONIX) 40 mg tablet Take 1 tablet by mouth once daily. - calcium carbonate 600 mg-cholecalciferol 400 units 600 mg-10 mcg (400 unit) tab Take 1 tablet by mouth once daily. - scopolamine (TRANSDERM-SCOP) patch 1.5 mg/72 hr (delivers 1 mg over 3 days) Apply 1 Patch as directed every 72 hours. - ZENPEP 40,000-126,000- 168,000 unit delayed release capsule - Shower Chair with Back once daily. Use as directed - sertraline (ZOLOFT) 50 mg tablet Take 50 mg by mouth once daily. Taking 150 mg Daily - buPROPion XL (WELLBUTRIN XL) 150 mg 24 hr tablet Take 150 mg by mouth once daily. - ibuprofen (MOTRIN ORAL) Take 600 mg by mouth as needed. - nystatin (MYCOSTATIN) cream Apply 1 application to affected area twice daily. - Incontinence Pants, Reusable misc 5 Units continuous. 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 AAA (abdominal aortic aneurysm) [I71.40] 04/09/2013 Depression [F32.A] 06/26/2023 Lung nodules [R91.8] 05/15/2024 Hypercholesteremia [E78.00] Hypertension [I10] 11/28/2016 History of colonic polyps [Z86.0100] 04/05/2016 Primary osteoarthritis of right knee [M17.11] 06/14/2016 Chronic pain of right knee [M25.561, G89.29] 06/14/2016 Acute biliary pancreatitis without infection or*10/22/2016 06/26/2023 Essential hypertension [I10] 11/28/2016 Thoracic ascending aortic aneurysm (HCC) [I71.2*11/28/2016 Carpal tunnel syndrome, left [G56.02] 10/29/2017 Obesity, Class III, BMI >= 40 [E66.813] 04/10/2021 Age-related osteoporosis without current pathol*07/18/2021 Dysphagia [R13.10] 09/25/2021 PMR (polymyalgia rheumatica) (HCC) [M35.3] 08/23/2022 Ectatic thoracic aorta (HCC) [I77.810] 09/12/2022 09/12/2022 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] 01/17/2023 Acidosis [E87.20] 10/11/2016 04/20/2023 Benign paroxysmal positional vertigo [H81.10] 02/18/2023 Diagnosed: 02/18/2023 Cough [R05.9] 10/11/2016 06/26/2023 Diagnosed: 02/18/2023 Dehydration [E86.0] 02/18/2023 Diagnosed: 02/18/2023 Disorder of tooth [K08.9] 02/18/2023 Diagnosed: 02/18/2023 Former smoker [Z87.891] 02/18/2023 Diagnosed: 02/18/2023 Functional dyspepsia [K30] 10/11/2016 Diagnosed: 02/18/2023 Gastroesophageal reflux disease [K21.9] 02/18/2023 05/15/2024 Diagnosed: 02/18/2023 Hypoglycemia, unspecified [E16.2] 10/11/2016 Diagnosed: 02/18/2023 Injury of kidney [S37.009A] 02/18/2023 Diagnosed: 02/18/2023 Major depressive disorder, recurrent, mild (HCC*10/11/2016 Diagnosed: 02/18/2023 Muscle weakness (generalized) [M62.81] 10/11/2016 Diagnosed: 02/18/2023 Constipation, unspecified [K59.00] 10/11/2016 Diagnosed: 02/18/2023 Orthostatic hypotension [I95.1] 02/18/2023 Diagnosed: 02/18/2023 Osteoarthritis [M19.90] 11/07/2022 Diagnosed: 02/18/2023 Polyp of colon [K63.5] 02/18/2023 Diagnosed: 02/18/2023 Shortness of breath [R06.02] 12/19/2022 06/26/2023 Diagnosed: 02/18/2023 Swelling of lower extremity [M79.89] 02/18/2023 Diagnosed: 02/18/2023 Unspecified abdominal pain [R10.9] 10/11/2016 05/15/2024 Diagnosed: 02/18/2023 Urinary tract infection [N39.0] 02/18/2023 Diagnosed: 02/18/2023 Hypophosphatemia [E83.39] 03/02/2023 Diagnosed: 07/29/2023 Chronic pancreatitis (HCC) [K86.1] 03/02/2023 Diagnosed: 07/29/2023 Encounter Status:Closed by KORY TRISTAN on 02/05/25 [facility] 12-24-2024 Note HNO ID: [id number] Author: DEE DEE CAMACHO MA Service: ? Author Type: Microbiology Soil Scientist Type: Progress Notes Filed: 12/24/2024 14:02 Note Text: POPULATION HEALTH NAVIGATION OUTREACH Action/FYI Contacted patient to schedule HCC care gaps and health maintenance. 1st attempt: Left message with my direct number Topic Due (Y or N) Comments Annual Wellness Exam Yes PCP Follow up No Colorectal Cancer Screening No A1C No HTN/Controlling BP No HCC Yes Updated appointment notes No Reason for Outreach Care Gap/HCC or Scheduling Wellness Visits Care Gaps due: Medicare Annual Wellness Visit Patient Contacted: Unable or unnecessary to reach patient: Left message HCC related Navigation Signature: Dee Dee Camacho MA December 24, 2024 2:02 PM [facility] 12-24-2024 History of Present illness Narrative POPULATION HEALTH NAVIGATION OUTREACH Action/FYI Contacted patient to schedule HCC care gaps and health maintenance. 1st attempt: Left message with my direct number Topic Due (Y or N) Comments Annual Wellness Exam Yes PCP Follow up No Colorectal Cancer Screening No A1C No HTN/Controlling BP No HCC Yes Updated appointment notes No Reason for Outreach Care Gap/HCC or Scheduling Wellness Visits Care Gaps due: Medicare Annual Wellness Visit Patient Contacted: Unable or unnecessary to reach patient: Left message HCC related Navigation Signature: Dee Dee Camacho MA December 24, 2024 2:02 PM documented in this encounter [facility] 12-24-2024 Note Patient Outreach (JAYY POSADA) AUGUSTINE PENA ([id number]) 1955 F Date Time Provider Department 12/24/24 DEE DEE CAMACHO During your visit today, we recorded the following information about you: Dee Dee Camacho MA 12/24/2024 2:02 PM Signed POPULATION HEALTH NAVIGATION OUTREACH Action/FYI Contacted patient to schedule HCC care gaps and health maintenance. 1st attempt: Left message with my direct number Topic Due (Y or N) Comments Annual Wellness Exam Yes PCP Follow up No Colorectal Cancer Screening No A1C No HTN/Controlling BP No HCC Yes Updated appointment notes No Reason for Outreach Care Gap/HCC or Scheduling Wellness Visits Care Gaps due: Medicare Annual Wellness Visit Patient Contacted: Unable or unnecessary to reach patient: Left message HCC related Navigation Signature: Dee Dee Camacho MA December 24, 2024 2:02 PM Allergies As of Date: 12/24/2024 (No Known Allergies) Date Reviewed: 10/22/2024 Reviewed by: Radha Reynolds MA - Fully Assessed Reason for Visit: Population Health Navigation Outreach [3910] Cmt: [place]/Workbench/ACO Prescriptions as of 12/24/2024 - ergocalciferol 50,000 unit capsule (VITAMIN D2, DRISDOL) Take 1 capsule by mouth one time a week. - sertraline (ZOLOFT) 100 mg tablet Take 100 mg by mouth once daily. - potassium chloride ER (KLOR-CON) 20 mEq tablet Take 1 tablet by mouth once daily. - tocilizumab (ACTEMRA ACTPEN) 162 mg/0.9 mL Inject 162mg (1 pen) under the skin one time each week. - amLODIPine (NORVASC) 10 mg tablet Take 1 tablet by mouth once daily. - pantoprazole DR (PROTONIX) 40 mg tablet Take 1 tablet by mouth once daily. - calcium carbonate 600 mg-cholecalciferol 400 units 600 mg-10 mcg (400 unit) tab Take 1 tablet by mouth once daily. - scopolamine (TRANSDERM-SCOP) patch 1.5 mg/72 hr (delivers 1 mg over 3 days) Apply 1 Patch as directed every 72 hours. - metoprolol succinate ER (TOPROL XL) 25 mg 24 hr tablet Take 1 tablet by mouth once daily. - ZENPEP 40,000-126,000- 168,000 unit delayed release capsule - Shower Chair with Back once daily. Use as directed - sertraline (ZOLOFT) 50 mg tablet Take 50 mg by mouth once daily. Taking 150 mg Daily - buPROPion XL (WELLBUTRIN XL) 150 mg 24 hr tablet Take 150 mg by mouth once daily. - ibuprofen (MOTRIN ORAL) Take 600 mg by mouth as needed. - nystatin (MYCOSTATIN) cream Apply 1 application to affected area twice daily. - Incontinence Pants, Reusable misc 5 Units continuous. 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 AAA (abdominal aortic aneurysm) [I71.40] 04/09/2013 Depression [F32.A] 06/26/2023 Lung nodules [R91.8] 05/15/2024 Hypercholesteremia [E78.00] Hypertension [I10] 11/28/2016 History of colonic polyps [Z86.0100] 04/05/2016 Primary osteoarthritis of right knee [M17.11] 06/14/2016 Chronic pain of right knee [M25.561, G89.29] 06/14/2016 Acute biliary pancreatitis without infection or*10/22/2016 06/26/2023 Essential hypertension [I10] 11/28/2016 Thoracic ascending aortic aneurysm (HCC) [I71.2*11/28/2016 Carpal tunnel syndrome, left [G56.02] 10/29/2017 Obesity, Class III, BMI >= 40 [E66.813] 04/10/2021 Age-related osteoporosis without current pathol*07/18/2021 Dysphagia [R13.10] 09/25/2021 PMR (polymyalgia rheumatica) (HCC) [M35.3] 08/23/2022 Ectatic thoracic aorta (HCC) [I77.810] 09/12/2022 09/12/2022 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] 01/17/2023 Acidosis [E87.20] 10/11/2016 04/20/2023 Benign paroxysmal positional vertigo [H81.10] 02/18/2023 Diagnosed: 02/18/2023 Cough [R05.9] 10/11/2016 06/26/2023 Diagnosed: 02/18/2023 Dehydration [E86.0] 02/18/2023 Diagnosed: 02/18/2023 Disorder of tooth [K08.9] 02/18/2023 Diagnosed: 02/18/2023 Former smoker [Z87.891] 02/18/2023 Diagnosed: 02/18/2023 Functional dyspepsia [K30] 10/11/2016 Diagnosed: 02/18/2023 Gastroesophageal reflux disease [K21.9] 02/18/2023 05/15/2024 Diagnosed: 02/18/2023 Hypoglycemia, unspecified [E16.2] 10/11/2016 Diagnosed: 02/18/2023 Injury of kidney [S37.009A] 02/18/2023 Diagnosed: 02/18/2023 Major depressive disorder, recurrent, mild (HCC*10/11/2016 Diagnosed: 02/18/2023 Muscle weakness (generalized) [M62.81] 10/11/2016 Diagnosed: 02/18/2023 Constipation, unspecified [K59.00] 10/11/2016 Diagnosed: 02/18/2023 Orthostatic hypotension [I95.1] 02/18/2023 Diagnosed: 02/18/2023 Osteoarthritis [M19.90] 11/07/2022 Diagnosed: 02/18/2023 Polyp of colon [K63.5] 02/18/2023 Diagnosed: 02/18/2023 Shortness of breath [R06.02] 12/19/2022 06/26/2023 Diagnosed: 02/18/2023 Swelling of lower extremity [M79.89] 02/18/2023 Diagnosed: 02/18/2023 Unspecified abdominal pain [R10.9] 10/11/2016 (more content not included)... [facility] 11-24-2024 Note HNO ID: [id number] Author: DEE DEE CAMACHO MA Service: ? Author Type: Microbiology Soil Scientist Type: Progress Notes Filed: 11/24/2024 09:04 Note Text: POPULATION HEALTH NAVIGATION OUTREACH Action/FYI Contacted patient to schedule HCC care gaps and health maintenance. 1st attempt: Left message with my direct number Topic Due (Y or N) Comments Annual Wellness Exam Yes PCP Follow up Yes Colorectal Cancer Screening No A1C No HTN/Controlling BP No HCC Yes Updated appointment notes No Reason for Outreach Care Gap/HCC or Scheduling Wellness Visits Care Gaps due: Medicare Annual Wellness Visit Follow-up Appointment Patient Contacted: Unable or unnecessary to reach patient: Left message HCC related Navigation Signature: Dee Dee Camacho MA November 24, 2024 9:03 AM [facility] 11-24-2024 History of Present illness Narrative POPULATION HEALTH NAVIGATION OUTREACH Action/FYI Contacted patient to schedule HCC care gaps and health maintenance. 1st attempt: Left message with my direct number Topic Due (Y or N) Comments Annual Wellness Exam Yes PCP Follow up Yes Colorectal Cancer Screening No A1C No HTN/Controlling BP No HCC Yes Updated appointment notes No Reason for Outreach Care Gap/HCC or Scheduling Wellness Visits Care Gaps due: Medicare Annual Wellness Visit Follow-up Appointment Patient Contacted: Unable or unnecessary to reach patient: Left message HCC related Navigation Signature: Dee Dee Camacho MA November 24, 2024 9:03 AM documented in this encounter [facility] 11-24-2024 Note Patient Outreach (NE TNAV) AUGUSTINE PENA ([id number]) 1955 F Date Time Provider Department 11/24/24 DEE DEE CAMACHO During your visit today, we recorded the following information about you: Dee Dee Camacho MA 11/24/2024 9:04 AM Signed POPULATION HEALTH NAVIGATION OUTREACH Action/FYI Contacted patient to schedule HCC care gaps and health maintenance. 1st attempt: Left message with my direct number Topic Due (Y or N) Comments Annual Wellness Exam Yes PCP Follow up Yes Colorectal Cancer Screening No A1C No HTN/Controlling BP No HCC Yes Updated appointment notes No Reason for Outreach Care Gap/HCC or Scheduling Wellness Visits Care Gaps due: Medicare Annual Wellness Visit Follow-up Appointment Patient Contacted: Unable or unnecessary to reach patient: Left message HCC related Navigation Signature: Dee Dee Camacho MA November 24, 2024 9:03 AM Allergies As of Date: 11/24/2024 (No Known Allergies) Date Reviewed: 10/22/2024 Reviewed by: Radha Reynolds MA - Fully Assessed Reason for Visit: Population Health Navigation Outreach [3910] Cmt: Leatha/Workbench/ACO Prescriptions as of 11/24/2024 - ergocalciferol 50,000 unit capsule (VITAMIN D2, DRISDOL) Take 1 capsule by mouth one time a week. - sertraline (ZOLOFT) 100 mg tablet Take 100 mg by mouth once daily. - potassium chloride ER (KLOR-CON) 20 mEq tablet Take 1 tablet by mouth once daily. - tocilizumab (ACTEMRA ACTPEN) 162 mg/0.9 mL Inject 162mg (1 pen) under the skin one time each week. - amLODIPine (NORVASC) 10 mg tablet Take 1 tablet by mouth once daily. - pantoprazole DR (PROTONIX) 40 mg tablet Take 1 tablet by mouth once daily. - calcium carbonate 600 mg-cholecalciferol 400 units 600 mg-10 mcg (400 unit) tab Take 1 tablet by mouth once daily. - scopolamine (TRANSDERM-SCOP) patch 1.5 mg/72 hr (delivers 1 mg over 3 days) Apply 1 Patch as directed every 72 hours. - metoprolol succinate ER (TOPROL XL) 25 mg 24 hr tablet Take 1 tablet by mouth once daily. - ZENPEP 40,000-126,000- 168,000 unit delayed release capsule - Shower Chair with Back once daily. Use as directed - sertraline (ZOLOFT) 50 mg tablet Take 50 mg by mouth once daily. Taking 150 mg Daily - buPROPion XL (WELLBUTRIN XL) 150 mg 24 hr tablet Take 150 mg by mouth once daily. - ibuprofen (MOTRIN ORAL) Take 600 mg by mouth as needed. - nystatin (MYCOSTATIN) cream Apply 1 application to affected area twice daily. - Incontinence Pants, Reusable misc 5 Units continuous. 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 AAA (abdominal aortic aneurysm) [I71.40] 04/09/2013 Depression [F32.A] 06/26/2023 Lung nodules [R91.8] 05/15/2024 Hypercholesteremia [E78.00] Hypertension [I10] 11/28/2016 History of colonic polyps [Z86.0100] 04/05/2016 Primary osteoarthritis of right knee [M17.11] 06/14/2016 Chronic pain of right knee [M25.561, G89.29] 06/14/2016 Acute biliary pancreatitis without infection or*10/22/2016 06/26/2023 Essential hypertension [I10] 11/28/2016 Thoracic ascending aortic aneurysm (HCC) [I71.2*11/28/2016 Carpal tunnel syndrome, left [G56.02] 10/29/2017 Obesity, Class III, BMI >= 40 [E66.01] 04/10/2021 Age-related osteoporosis without current pathol*07/18/2021 Dysphagia [R13.10] 09/25/2021 PMR (polymyalgia rheumatica) (HCC) [M35.3] 08/23/2022 Ectatic thoracic aorta (HCC) [I77.810] 09/12/2022 09/12/2022 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] 01/17/2023 Acidosis [E87.20] 10/11/2016 04/20/2023 Benign paroxysmal positional vertigo [H81.10] 02/18/2023 Diagnosed: 02/18/2023 Cough [R05.9] 10/11/2016 06/26/2023 Diagnosed: 02/18/2023 Dehydration [E86.0] 02/18/2023 Diagnosed: 02/18/2023 Disorder of tooth [K08.9] 02/18/2023 Diagnosed: 02/18/2023 Former smoker [Z87.891] 02/18/2023 Diagnosed: 02/18/2023 Functional dyspepsia [K30] 10/11/2016 Diagnosed: 02/18/2023 Gastroesophageal reflux disease [K21.9] 02/18/2023 05/15/2024 Diagnosed: 02/18/2023 Hypoglycemia, unspecified [E16.2] 10/11/2016 Diagnosed: 02/18/2023 Injury of kidney [S37.009A] 02/18/2023 Diagnosed: 02/18/2023 Major depressive disorder, recurrent, mild (HCC*10/11/2016 Diagnosed: 02/18/2023 Muscle weakness (generalized) [M62.81] 10/11/2016 Diagnosed: 02/18/2023 Constipation, unspecified [K59.00] 10/11/2016 Diagnosed: 02/18/2023 Orthostatic hypotension [I95.1] 02/18/2023 Diagnosed: 02/18/2023 Osteoarthritis [M19.90] 11/07/2022 Diagnosed: 02/18/2023 Polyp of colon [K63.5] 02/18/2023 Diagnosed: 02/18/2023 Shortness of breath [R06.02] 12/19/2022 06/26/2023 Diagnosed: 02/18/2023 Swelling of lower extremity [M79.89] 02/18/2023 Diagnosed: 02/18/2023 Unspecified abdominal pain (more content not included)... [facility] 10-29-2024 Telephone encounter Note Phoned patient as requested relayed message as per provider. Patient reports understanding and is transferred to [facility] for scheduling. Radha Reynolds MA [facility] 10-29-2024 Miscellaneous Notes Phoned patient as requested relayed message as per provider. Patient reports understanding and is transferred to [facility] for scheduling. Radha Reynolds MA documented in this encounter [facility] 10-22-2024 Instructions Blanche Rogers MD - 10/22/2024 2:33 PM EDT You had Fine needle aspiration of right mid thyroid nodule. 1) If there is soreness to touch or swallowing, can use ice over the area as needed 2) Can use Tylenol 500 mg every 6-8 hrs as needed (avoid using Ibuprofen,Aleeve as these can cause increased bleeding) 3) If you develop intense pain and/or swelling at the site of biopsy, please go to the ER 4) Results with be available in one week. If you do not hear from us in that time frame, please call the office for an update. documented in this encounter [facility] 10-22-2024 Note HNO ID: [id number] Author: BLANCHE ROGERS MD Service: ? Author Type: Physician Type: Procedures Filed: 10/22/2024 14:39 Note Text: Fine needle aspiration of Thyroid Nodule (October 22, 2024) Referring Physician: No ref. provider found Primary Care Physician: Mauro Krishnamurthy MD Indication: (E04.1) Thyroid nodule (primary encounter diagnosis) Plan: CYTOLOGY NON-BEER COIL CLEANER, ENDO THYROID/LYMPH NODE FNA, US THYROID/PARATHYROID (POC) ENDO USE ONLY Augustine Pena was identified by name and date, acknowledges here to have an FNA of Nodule in middle right lobe performed. Patient on anti-platelet or anticoagulant drugs: No The risks, benefits and anticipated outcomes of the procedure, the risks and benefits of the alternatives to the procedure, and the roles and tasks of the personnel to be involved, were discussed with the patient. UNIVERSAL PROTOCOL / SAFETY CHECKLIST Procedure to be Performed: FNAB of 1.8x1.3x1.2 cm right mid thyroid nodule Sign In: A Moment of CARE was completed. Special equipment utilized ultrasound device. Patient/Surrogate Stated/Verified: Patient name, Date of , Relevant allergies, and The intended procedure Time Out: Relevant labs, photos, and/or imaging studies have been reviewed. Intended patient and procedure match the source document(s) (e.g. consent, HANDP, associated studies [imaging, pathology]) match the intended patient and procedure. Consent obtained and matches the intended procedure. Yes. Correct side/site has been marked and visible. Medications required for this procedure are verified. Fire risk assessed and is not applicable. Implants: are not applicable. Sign Out: Specimens are all correctly labeled and sent. All instruments, equipment, possible retained foreign bodies are accounted for. Yes. The post-procedure plan of care has been communicated to the patient or surrogate. She was positionned in decubitus with the neck in extension. FNA of Nodule in middle right lobe: I used Ice pack and EMLA to numb the skin overlying the area of the nodule. The skin was prepped in the usual aseptic manner. I performed 4 passes through target nodule using G-23 needles under sonographic guidance. Character of the aspirate: A small drop of blood Afirma sample sent: Yes The patient tolerated the procedure. Complications: No She was told to go the emergency room if there is severe pain or swelling in the neck area. She will be notified of the result by telephone. Follow up: With me Blanche Rogers MD [facility] 10-22-2024 Procedure note Fine needle aspiration of Thyroid Nodule (October 22, 2024) Referring Physician: No ref. provider found Primary Care Physician: Mauro Krishnamurthy MD Indication: (E04.1) Thyroid nodule (primary encounter diagnosis) Plan: CYTOLOGY NON-BEER COIL CLEANER, ENDO THYROID/LYMPH NODE FNA, US THYROID/PARATHYROID (POC) ENDO USE ONLY Augustine Pena was identified by name and date, acknowledges here to have an FNA of Nodule in middle right lobe performed. Patient on anti-platelet or anticoagulant drugs: No The risks, benefits and anticipated outcomes of the procedure, the risks and benefits of the alternatives to the procedure, and the roles and tasks of the personnel to be involved, were discussed with the patient. UNIVERSAL PROTOCOL / SAFETY CHECKLIST Procedure to be Performed: FNAB of 1.8x1.3x1.2 cm right mid thyroid nodule Sign In: A Moment of CARE was completed. Special equipment utilized ultrasound device. Patient/Surrogate Stated/Verified: Patient name, Date of , Relevant allergies, and The intended procedure Time Out: Relevant labs, photos, and/or imaging studies have been reviewed. Intended patient and procedure match the source document(s) (e.g. consent, H&P, associated studies [imaging, pathology]) match the intended patient and procedure. Consent obtained and matches the intended procedure. Yes. Correct side/site has been marked and visible. Medications required for this procedure are verified. Fire risk assessed and is not applicable. Implants: are not applicable. Sign Out: Specimens are all correctly labeled and sent. All instruments, equipment, possible retained foreign bodies are accounted for. Yes. The post-procedure plan of care has been communicated to the patient or surrogate. She was positionned in decubitus with the neck in extension. FNA of Nodule in middle right lobe: I used Ice pack and EMLA to numb the skin overlying the area of the nodule. The skin was prepped in the usual aseptic manner. I performed 4 passes through target nodule using G-23 needles under sonographic guidance. Character of the aspirate: A small drop of blood Afirma sample sent: Yes The patient tolerated the procedure. Complications: No She was told to go the emergency room if there is severe pain or swelling in the neck area. She will be notified of the result by telephone. Follow up: With me Blanche Rogers MD [facility] Work Phone: 10-22-2024 Procedure note Fine needle aspiration of Thyroid Nodule (October 22, 2024) Referring Physician: No ref. provider found Primary Care Physician: Mauro Krishnamurthy MD Indication: (E04.1) Thyroid nodule (primary encounter diagnosis) Plan: CYTOLOGY NON-BEER COIL CLEANER, ENDO THYROID/LYMPH NODE FNA, US THYROID/PARATHYROID (POC) ENDO USE ONLY Augustine Pena was identified by name and date, acknowledges here to have an FNA of Nodule in middle right lobe performed. Patient on anti-platelet or anticoagulant drugs: No The risks, benefits and anticipated outcomes of the procedure, the risks and benefits of the alternatives to the procedure, and the roles and tasks of the personnel to be involved, were discussed with the patient. UNIVERSAL PROTOCOL / SAFETY CHECKLIST Procedure to be Performed: FNAB of 1.8x1.3x1.2 cm right mid thyroid nodule Sign In: A Moment of CARE was completed. Special equipment utilized ultrasound device. Patient/Surrogate Stated/Verified: Patient name, Date of , Relevant allergies, and The intended procedure Time Out: Relevant labs, photos, and/or imaging studies have been reviewed. Intended patient and procedure match the source document(s) (e.g. consent, H&P, associated studies [imaging, pathology]) match the intended patient and procedure. Consent obtained and matches the intended procedure. Yes. Correct side/site has been marked and visible. Medications required for this procedure are verified. Fire risk assessed and is not applicable. Implants: are not applicable. Sign Out: Specimens are all correctly labeled and sent. All instruments, equipment, possible retained foreign bodies are accounted for. Yes. The post-procedure plan of care has been communicated to the patient or surrogate. She was positionned in decubitus with the neck in extension. FNA of Nodule in middle right lobe: I used Ice pack and EMLA to numb the skin overlying the area of the nodule. The skin was prepped in the usual aseptic manner. I performed 4 passes through target nodule using G-23 needles under sonographic guidance. Character of the aspirate: A small drop of blood Afirma sample sent: Yes The patient tolerated the procedure. Complications: No She was told to go the emergency room if there is severe pain or swelling in the neck area. She will be notified of the result by telephone. Follow up: With me Blanche Rogers MD documented in this encounter [facility] 10-16-2024 Miscellaneous Notes Requesting medication that is : Patient last seen: 05-15-24 Future appointment scheduled: yes PHARMACY: [facility]/[place] documented in this encounter [facility] 10-16-2024 Telephone encounter Note Requesting medication that is : Patient last seen: 05-15-24 Future appointment scheduled: yes PHARMACY: [facility]/[place] [facility] 10-12-2024 Telephone encounter Note Phoned patient as requested,relayed message as below. Patient reports understanding and has no further questions. Radha Reynolds MA [facility] 10-12-2024 Miscellaneous Notes Phoned patient as requested,relayed message as below. Patient reports understanding and has no further questions. Radha Reynolds MA ----- Message from Blanche Rogers MD sent at 10/10/2024 7:21 PM EST ----- Please let the patient know she keep biopsy appointment on 10/22 documented in this encounter [facility] 10-12-2024 Telephone encounter Note ----- Message from Blanche Rogers MD sent at 10/10/2024 7:21 PM EST ----- Please let the patient know she keep biopsy appointment on 10/22 [facility] 10-09-2024 Instructions Blanche Rogers MD - 10/09/2024 11:17 AM EST Please do thyroid blood test today- if not high, we shall schedule for biopsy documented in this encounter [facility] 10-09-2024 Note HNO ID: [id number] Author: BLANCHE ROGERS MD Service: ? Author Type: Physician Type: Progress Notes Filed: 10/10/2024 19:35 Note Text: [facility] Initial Clinic Visit Note NAME: Augustine Pena PCP: Mauro Krishnamurthy MD Requesting Provider: Mauro Krishnamurthy MD (PCP) [address] [facility] [address] My final recommendations will be communicated back to the requesting physician by way of shared medical record or letter via [place] mail. Chief Complaint: nodular goiter HPI: Augustine Pena is a 69 year old female was referred for evaluation of thyroid nodules. History in brief, she was noted to have thyroid nodule incidentally in 2012, never had a biopsy. Further evaluation with thyroid US revealed multinodular goiter initiually, she has been undergoing monitoring with thyroid US since. Now she reports referral due to changes She is in wheel chair, reports it takes long time for her to recover after hospitalization for GI issues, like gall stones Related symptoms: Swallowing difficulty: no Shortness of breath when lying flat: no Hoarseness of voice: no History of radiation exposure to the neck: no No environmental or occupational exposure to radioactive materials such as proximity to nuclear plants or living in areas of endemic high radioactivity History of smoking: quit 20 years, on and off smoker, upto 1 pack a day Family history of thyroid cancer: no Family history of thyroid nodules: no PAST MEDICAL HISTORY Diagnosis Date Anxiety Depression Hypercholesteremia Hypertension Lung nodules unchanged ct 03/24 Pancreatitis 05/2019 Thoracic aortic aneurysm (HCC) 09/23 followed by cardiology Thyroid goiter needs follow up in 05/28 PAST SURGICAL HISTORY Procedure Laterality Date COLONOSCOPY 09/25/2021 repeat in 5 years COLONOSCOPY FLX DX W/COLLJ SPEC WHEN PFRMD 03/31/2014 Colonoscopy COLONOSCOPY FLX DX W/COLLJ SPEC WHEN PFRMD 04/05/2016 [facility] VARICIES INJ 09/25/2021 LAPS SURG CHOLECYSTECTOMY W/CHOLANGIOGRAPHY 10/25/2016 normal IOC NEUROPLASTY AND/TRANSPOS MEDIAN NRV CARPAL TUNNE Right 1989 Carpal tunnel decomp NEUROPLASTY AND/TRANSPOS MEDIAN NRV CARPAL TUNNE Left 12/26/2017 Left carpal tunnel release TOTAL ABDOMINAL HYSTERECT W/WO RMVL TUBE OVARY 10/01/2013 ALLERGIES No Known Allergies Social History Tobacco Use Smoking status: Former Current packs/day: 0.00 Average packs/day: 0.5 packs/day for 12.0 years (6.0 ttl pk-yrs) Types: Cigarettes Start date: 05/29/1999 Quit date: 05/29/2011 Years since quittin.3 Smokeless tobacco: Former Vaping Use Vaping status: Never Used Substance Use Topics Alcohol use: Not Currently Drug use: No Comment: marijuana only as teen FAMILY HISTORY Problem Relation Age of Onset Colon Cancer Mother Cancer Father lung Breast Cancer Sister Cancer Brother lung Thyroid Cancer No Family History MEDICATIONS: Current Outpatient Medications on File Prior to Visit Medication Sig sertraline (ZOLOFT) 100 mg tablet Take 100 mg by mouth once daily. potassium chloride ER (KLOR-CON) 20 mEq tablet Take 1 tablet by mouth once daily. ergocalciferol 50,000 unit capsule (VITAMIN D2, DRISDOL) Take 1 capsule by mouth one time a week. tocilizumab (ACTEMRA ACTPEN) 162 mg/0.9 mL Inject 162mg (1 pen) under the skin one time each week. amLODIPine (NORVASC) 10 mg tablet Take 1 tablet by mouth once daily. pantoprazole DR (PROTONIX) 40 mg tablet Take 1 tablet by mouth once daily. calcium carbonate 600 mg-cholecalciferol 400 units 600 mg-10 mcg (400 unit) tab Take 1 tablet by mouth once daily. metoprolol succinate ER (TOPROL XL) 25 mg 24 hr tablet Take 1 tablet by mouth once daily. ZENPEP 40,000-126,000- 168,000 unit delayed release capsule (Patient taking differently: Take 2-3 capsules by mouth three times a day with meals. Takes 3 capsules with meals, takes 2 capsules with snacks) Shower Chair with Back once daily. Use as directed buPROPion XL (WELLBUTRIN XL) 150 mg 24 hr tablet Take 150 mg by mouth once daily. ibuprofen (MOTRIN ORAL) Take 600 mg by mouth as needed. nystatin (MYCOSTATIN) cream Apply 1 application to affected area twice daily. (Patient taking differently: Apply 1 application to affected area two times a day as needed for dry skin.) Incontinence Pants, Reusable misc 5 Units continuous. scopolamine (TRANSDERM-SCOP) patch 1.5 mg/72 hr (delivers 1 mg over 3 days) Apply 1 Patch as directed every 72 hours. (Patient not taking: Reported on 10/09/2024) sertraline (ZOLOFT) 50 mg tablet Take 50 mg by mouth once daily. Taking 150 mg Daily (Patient not taking: Reported on 10/09/2024) No current facility-administered medications on file prior to visit. REVIEW OF SYSTEMS: 10 point ROS was reviewed and negative unless indicated in the HPI PHYSICAL EXAMINATION: BP: 132/84 Pulse: 58 Resp: 19 (more content not included)... [facility] 10-09-2024 History of Present illness Narrative [facility] Initial Clinic Visit Note NAME: Augustine Pena PCP: Mauro Krishnamurthy MD Requesting Provider: Mauro Krishnamurthy MD (PCP) [address] [facility] [address] My final recommendations will be communicated back to the requesting physician by way of shared medical record or letter via [place] mail. Chief Complaint: nodular goiter HPI: Augustine Pena is a 69 year old female was referred for evaluation of thyroid nodules. History in brief, she was noted to have thyroid nodule incidentally in 2012, never had a biopsy. Further evaluation with thyroid US revealed multinodular goiter initiually, she has been undergoing monitoring with thyroid US since. Now she reports referral due to changes She is in wheel chair, reports it takes long time for her to recover after hospitalization for GI issues, like gall stones Related symptoms: Swallowing difficulty: no Shortness of breath when lying flat: no Hoarseness of voice: no History of radiation exposure to the neck: no No environmental or occupational exposure to radioactive materials such as proximity to nuclear plants or living in areas of endemic high radioactivity History of smoking: quit 20 years, on and off smoker, upto 1 pack a day Family history of thyroid cancer: no Family history of thyroid nodules: no PAST MEDICAL HISTORY Diagnosis Date Anxiety Depression Hypercholesteremia Hypertension Lung nodules unchanged ct 03/24 Pancreatitis 05/2019 Thoracic aortic aneurysm (HCC) 09/23 followed by cardiology Thyroid goiter needs follow up in 05/28 PAST SURGICAL HISTORY Procedure Laterality Date COLONOSCOPY 09/25/2021 repeat in 5 years COLONOSCOPY FLX DX W/COLLJ SPEC WHEN PFRMD 03/31/2014 Colonoscopy COLONOSCOPY FLX DX W/COLLJ SPEC WHEN PFRMD 04/05/2016 Colonoscopy (MAC) EGD W/O [facility] SPEC VARICIES INJ 09/25/2021 LAPS SURG CHOLECYSTECTOMY W/CHOLANGIOGRAPHY 10/25/2016 normal IOC NEUROPLASTY &/TRANSPOS MEDIAN NRV CARPAL TUNNE Right 1989 Carpal tunnel decomp NEUROPLASTY &/TRANSPOS MEDIAN NRV CARPAL TUNNE Left 12/26/2017 Left carpal tunnel release TOTAL ABDOMINAL HYSTERECT W/WO RMVL TUBE OVARY 10/01/2013 ALLERGIES No Known Allergies Social History Tobacco Use Smoking status: Former Current packs/day: 0.00 Average packs/day: 0.5 packs/day for 12.0 years (6.0 ttl pk-yrs) Types: Cigarettes Start date: 05/29/1999 Quit date: 05/29/2011 Years since quittin.3 Smokeless tobacco: Former Vaping Use Vaping status: Never Used Substance Use Topics Alcohol use: Not Currently Drug use: No Comment: marijuana only as teen FAMILY HISTORY Problem Relation Age of Onset Colon Cancer Mother Cancer Father lung Breast Cancer Sister Cancer Brother lung Thyroid Cancer No Family History MEDICATIONS: Current Outpatient Medications on File Prior to Visit Medication Sig sertraline (ZOLOFT) 100 mg tablet Take 100 mg by mouth once daily. potassium chloride ER (KLOR-CON) 20 mEq tablet Take 1 tablet by mouth once daily. ergocalciferol 50,000 unit capsule (VITAMIN D2, DRISDOL) Take 1 capsule by mouth one time a week. tocilizumab (ACTEMRA ACTPEN) 162 mg/0.9 mL Inject 162mg (1 pen) under the skin one time each week. amLODIPine (NORVASC) 10 mg tablet Take 1 tablet by mouth once daily. pantoprazole DR (PROTONIX) 40 mg tablet Take 1 tablet by mouth once daily. calcium carbonate 600 mg-cholecalciferol 400 units 600 mg-10 mcg (400 unit) tab Take 1 tablet by mouth once daily. metoprolol succinate ER (TOPROL XL) 25 mg 24 hr tablet Take 1 tablet by mouth once daily. ZENPEP 40,000-126,000- 168,000 unit delayed release capsule (Patient taking differently: Take 2-3 capsules by mouth three times a day with meals. Takes 3 capsules with meals, takes 2 capsules with snacks) Shower Chair with Back once daily. Use as directed buPROPion XL (WELLBUTRIN XL) 150 mg 24 hr tablet Take 150 mg by mouth once daily. ibuprofen (MOTRIN ORAL) Take 600 mg by mouth as needed. nystatin (MYCOSTATIN) cream Apply 1 application to affected area twice daily. (Patient taking differently: Apply 1 application to affected area two times a day as needed for dry skin.) Incontinence Pants, Reusable misc 5 Units continuous. scopolamine (TRANSDERM-SCOP) patch 1.5 mg/72 hr (delivers 1 mg over 3 days) Apply 1 Patch as directed every 72 hours. (Patient not taking: Reported on 10/09/2024) sertraline (ZOLOFT) 50 mg tablet Take 50 mg by mouth once daily. Taking 150 mg Daily (Patient not taking: Reported on 10/09/2024) No current facility-administered medications on file prior to visit. REVIEW OF SYSTEMS: 10 point ROS was reviewed and negative unless indicated in the HPI PHYSICAL EXAMINATION: BP: 132/84 Pulse: 58 Resp: 19 SpO2: 99 % General: no acute distress, alert and orientated X 3, in wheel chair Eyes:EOMI, pupils are equally round, anicteric sclera Neck - supple, no significant adenopathy, Thyroid: enlarged in size, asymmetry noted, right sided mid pole discretely palpable nodule Neuro: alert, oriented, normal speech, no focal findings noted CV: normal rate and regular rhythm, S1 and S2 normal. Chest: unlabored breathing on room air Extremities: no edema, limited exam Skin: no rash or erythema LABS AND IMAGING TSH Date Value Ref Range Status 08/01/2022 1.670 0.270 - 4.200 mIU/L Final No recent test available Thyroid ultrasound (06/26/24): RESULT: Right Lobe: 4 x 1.8 x 1.7 cm; homogeneous echogenicity, expected vascular flow. Left Lobe: 4.2 x 1.5 x 1.1 cm; homogeneous echogenicity, expected vascular flow. Isthmus: 0.6 cm The most suspicious thyroid nodule(s) (up to four) as below: NODULE 1: Location: Right mid Size: 1.8 x 1.3 x 1.2 cm - this was a TR3 nodule in the past Characteristics: Composition: Solid or almost completely solid, 2 points Echogenicity: Echogenicity cannot be determined, 1 point Shape: Kcpea-ceqy-iviy, 0 points Margin: Smooth, 0 points Echogenic foci (add points for all that apply): Punctate echogenic foci, 3 points Internal vascularity: present Interval growth: No significant growth given differences in technique TI-RADS Category: TR4 ACR Recommendation: TI-RADS 4 nodule. FNA is recommended. NODULE 2: Location: Inferior right Size: 1 x 1 x 0.7 cm Characteristics: Composition: Solid or almost completely solid, 2 points Echogenicity: Echogenicity cannot be determined, 1 point Shape: Oqddi-ioic-vwha, 0 points Margin: Smooth, 0 points Echogenic foci (add points for all that apply): None, 0 points Internal vascularity: present Interval growth: No significant growth given differences in technique TI-RADS Category: TR3 ACR Recommendation: TI-RADS 3 nodule. No FNA or further imaging is advised. ASSESSMENT AND PLAN: Augustine Pena is a 69 year old female presenting to endocrinology for evaluation of thyroid nodule. 1. Multiple Thyroid nodules: - I personally reviewed the images of the thyroid ultrasound and discussed the findings with the patient. - I discussed with the patient the following: The prevalence of thyroid nodules and risk of cancer The indication, benefits and risks of doing an FNA as well as the benefits and risks of the alternatives. Discussed hyperfunctioning nodules and management, possible surgery if >4 cm/ or if compressive symptoms The procedure, at length. The possible scenarios depending on the cytology: benign, indeterminate, malignant and the respective management. The availability of Afirma for indeterminate cytology. - she agrees to have the FNA done. - TSH ordered today,and was normal in the past, clinically she is euthyroid Patient would like to have FNA performed if needed based on lab test and prefers to be done at my office, I have reviewed that I do not use lidocaine for numbing and rather ice, numbing spray, with which she is okay. This will be scheduled accordingly. Follow up to be determined based on cytopathology results Blanche Rogers MD [facility] Endocrinology and Metabolism [place] [facility] Medical Decision Making: Problems: Moderate: 1+ chronic illnesses with change Data: Unique test result(s) reviewed: 3+ Unique test(s) ordered: 1 Risk: Moderate: Decision on minor surgery w/ risk factors Medical Decision Making Level: 4 - Moderate documented in this encounter [facility] 09-08-2024 Note HNO ID: [id number] Author: MARIAJOSE DUVAL RN Service: ? Author Type: Registered Nurse Type: Progress Notes Filed: 09/08/2024 11:21 Note Text: Transitional Care Management (TCM) Follow-Up Note PCP Update / Actionable Items N/A - No specialty updates needed Patient Source: [facility] (OON) Discharge Outreach Summary: Pt reports she is feeling much improved. States this was her 3rd episode of pancreatitis. Has PCP f/u in November, declines a sooner appt. Pt states she has a thyroid nodule and did not schedule endo. consult was ordered 06/2024- encouraged to contact [facility] for scheduling. Patient discharged from [facility] Discharge date: 09/01/24 Admitted for: Pancreatitis Readmission Risk: n/a Value-Based Contract: ACO Contact: Contact made with patient: Yes Spoke to: Patient Validation: Validated the person spoken to is actively involved in the patient's care. The patient was identified by Name and Date of . I'd like to get an update on how you're doing since our last phone call. Is now a good time to talk? Yes Symptoms: Are you feeling about the same, better or worse since leaving the hospital? Better Weekly Outreach: 1st Outreach Medications: Do you have any questions about taking your medications, including which medications you should be on, or do you need refills on your medications? No Patient Questions / Concerns: Do you have any questions related to your discharge? No Appointment / TCM Follow-Up: Have you had a follow-up visit with your Primary Care Provider or Specialist since you were discharged? No Do you need any assistance with scheduling or changing your follow-up appointments? Patient declines appointment Education N/A Targets addressed / completed during outreach: N/A Outreach Outcome: Continue TCM Outreach for remainder of 30 days Care Management partners utilized: N/A Mariajose Duval RN September 08, 2024 11:16 AM [facility] 09-08-2024 History of Present illness Narrative Transitional Care Management (TCM) Follow-Up Note PCP Update / Actionable Items N/A - No specialty updates needed Patient Source: [facility] (OON) Discharge Outreach Summary: Pt reports she is feeling much improved. States this was her 3rd episode of pancreatitis. Has PCP f/u in November, declines a sooner appt. Pt states she has a thyroid nodule and did not schedule endo. consult was ordered 06/2024- encouraged to contact [facility] for scheduling. Patient discharged from [facility]. Hospital Discharge date: 09/01/24 Admitted for: Pancreatitis Readmission Risk: n/a Value-Based Contract: ACO Contact: Contact made with patient: Yes Spoke to: Patient Validation: Validated the person spoken to is actively involved in the patient's care. The patient was identified by Name and Date of . I'd like to get an update on how you're doing since our last phone call. Is now a good time to talk? Yes Symptoms: Are you feeling about the same, better or worse since leaving the hospital? Better Weekly Outreach: 1st Outreach Medications: Do you have any questions about taking your medications, including which medications you should be on, or do you need refills on your medications? No Patient Questions / Concerns: Do you have any questions related to your discharge? No Appointment / TCM Follow-Up: Have you had a follow-up visit with your Primary Care Provider or Specialist since you were discharged? No Do you need any assistance with scheduling or changing your follow-up appointments? Patient declines appointment Education N/A Targets addressed / completed during outreach: N/A Outreach Outcome: Continue TCM Outreach for remainder of 30 days Care Management partners utilized: N/A Mariajose Duval RN September 08, 2024 11:16 AM documented in this encounter [facility] 09-08-2024 Note Patient Outreach ([facility] [place] AUGUSTINE PENA ([id number]) 1955 F Date Time Provider Department 09/08/24 MARIAJOSE DUVAL During your visit today, we recorded the following information about you: Mariajose Duval RN 09/08/2024 11:21 AM Signed Transitional Care Management (TCM) Follow-Up Note PCP Update / Actionable Items N/A - No specialty updates needed Patient Source: [facility] (OON) Discharge Outreach Summary: Pt reports she is feeling much improved. States this was her 3rd episode of pancreatitis. Has PCP f/u in November, declines a sooner appt. Pt states she has a thyroid nodule and did not schedule endo. consult was ordered 06/2024- encouraged to contact [facility] for scheduling. Patient discharged from [facility]. Hospital Discharge date: 09/01/24 Admitted for: Pancreatitis Readmission Risk: n/a Value-Based Contract: ACO Contact: Contact made with patient: Yes Spoke to: Patient Validation: Validated the person spoken to is actively involved in the patient's care. The patient was identified by Name and Date of . I'd like to get an update on how you're doing since our last phone call. Is now a good time to talk? Yes Symptoms: Are you feeling about the same, better or worse since leaving the hospital? Better Weekly Outreach: 1st Outreach Medications: Do you have any questions about taking your medications, including which medications you should be on, or do you need refills on your medications? No Patient Questions / Concerns: Do you have any questions related to your discharge? No Appointment / TCM Follow-Up: Have you had a follow-up visit with your Primary Care Provider or Specialist since you were discharged? No Do you need any assistance with scheduling or changing your follow-up appointments? Patient declines appointment Education N/A Targets addressed / completed during outreach: N/A Outreach Outcome: Continue TCM Outreach for remainder of 30 days Care Management partners utilized: N/A Mariajose Duval RN September 08, 2024 11:16 AM Allergies As of Date: 09/08/2024 (No Known Allergies) Date Reviewed: 05/22/2024 Reviewed by: Dee Dee Cooper MA - Fully Assessed Prescriptions as of 09/08/2024 - potassium chloride ER (KLOR-CON) 20 mEq tablet Take 1 tablet by mouth once daily. - ergocalciferol 50,000 unit capsule (VITAMIN D2, DRISDOL) Take 1 capsule by mouth one time a week. - tocilizumab (ACTEMRA ACTPEN) 162 mg/0.9 mL Inject 162mg (1 pen) under the skin one time each week. - amLODIPine (NORVASC) 10 mg tablet Take 1 tablet by mouth once daily. - pantoprazole DR (PROTONIX) 40 mg tablet Take 1 tablet by mouth once daily. - calcium carbonate 600 mg-cholecalciferol 400 units 600 mg-10 mcg (400 unit) tab Take 1 tablet by mouth once daily. - scopolamine (TRANSDERM-SCOP) patch 1.5 mg/72 hr (delivers 1 mg over 3 days) Apply 1 Patch as directed every 72 hours. - metoprolol succinate ER (TOPROL XL) 25 mg 24 hr tablet Take 1 tablet by mouth once daily. - ZENPEP 40,000-126,000- 168,000 unit delayed release capsule - Shower Chair with Back once daily. Use as directed - sertraline (ZOLOFT) 50 mg tablet Take 50 mg by mouth once daily. Taking 150 mg Daily - buPROPion XL (WELLBUTRIN XL) 150 mg 24 hr tablet - ibuprofen (MOTRIN ORAL) Take by mouth as needed. - nystatin (MYCOSTATIN) cream Apply 1 application to affected area twice daily. - Incontinence Pants, Reusable misc 5 Units continuous. 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 AAA (abdominal aortic aneurysm) [I71.40] 04/09/2013 Depression [F32.A] 06/26/2023 Lung nodules [R91.8] 05/15/2024 Hypercholesteremia [E78.00] Hypertension [I10] 11/28/2016 History of colonic polyps [Z86.0100] 04/05/2016 Primary osteoarthritis of right knee [M17.11] 06/14/2016 Chronic pain of right knee [M25.561, G89.29] 06/14/2016 Acute biliary pancreatitis without infection or*10/22/2016 06/26/2023 Essential hypertension [I10] 11/28/2016 Thoracic ascending aortic aneurysm (HCC) [I71.2*11/28/2016 Carpal tunnel syndrome, left [G56.02] 10/29/2017 Obesity, Class III, BMI >= 40 [E66.01] 04/10/2021 Age-related osteoporosis without current pathol*07/18/2021 Dysphagia [R13.10] 09/25/2021 PMR (polymyalgia rheumatica) (HCC) [M35.3] 08/23/2022 Ectatic thoracic aorta (HCC) [I77.810] 09/12/2022 09/12/2022 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] 01/17/2023 Acidosis [E87.20] 10/11/2016 04/20/2023 Benign paroxysmal positional vertigo [H81.10] 02/18/2023 Diagnosed: 02/18/2023 Cough [R05.9] 10/11/2016 06/26/2023 Diagnosed: (more content not included)... [facility] 08-28-2024 Note [facility] Medical Records Department [address] [place] [address] Discharge Summary 08/28/24 1304 MR#: [id number] Acct: [id number] Name: AUGUSTINE PENA GOPAL Rep #: [id number] : 1955 69 From: Ranjeet Escobar DO PCP: Dr. Mauro Krishnamurthy MD Status:DIS IN Location: [place] [id number] Providers Date of Admission: 08/25/24 Date of Discharge: 08/28/24 Primary Care Physician: Dr. Mauro Krishnamurthy MD Reason For Visit: RECURRENT PANCREATITIS Diagnosis Discharge Diagnosis (1) Recurrent pancreatitis: Status: Acute Plan 1. Recurrent pancreatitis-patient's diet will be advanced today, she will be reevaluated tomorrow for possible discharge #2 essential hypertension-patient will remain on her home medications, they will be adjusted as necessary #3 chronic depression-patient is on Wellbutrin and Zoloft #4 class III obesity-complicates care, management, recovery, and prognosis Total clinical time spent by myself addressing patient's medical issues, reviewing all of her data, and collaborating with patient's care team: 35 minutes Medications at Discharge Home Medications calcium 600 mg (as carbonate)-vitamin D3 10 mcg (400 unit) tablet 1 tab PO DAILY SUPPLEMENT 10/16/21 metoprolol succinate 25 mg tablet,extended release 24 hr 25 mg PO DAILY BLOOD PRESSURE #90 tabs 01/08/23 bupropion HCl 150 mg 24 hr tablet, extended release 150 mg PO DAILY DEPRESSION 02/04/23 ergocalciferol (vitamin D2) 1,250 mcg (50,000 unit) capsule 1,250 mcg PO TH 02/04/23 sertraline 50 mg tablet 100 mg PO DAILY DEPRESSION 02/04/23 tocilizumab 162 mg/0.9 mL subcutaneous pen injector (Actemra ACTPen) 162 mg subcut Q7D RHEUMATOID ARTHRITIS 02/04/23 potassium chloride 20 mEq tablet,extended release 20 meq PO DAILY SUPPLEMENT 7 days #7 tabs 02/11/23 omeprazole 20 mg capsule,delayed release 40 mg (2 x 20 mg) PO DAILY ACID REFLUX 30 days #0 caps 02/23/23 amlodipine 10 mg tablet 10 mg PO DAILY #0 tabs 03/02/23 xyvbdi-xdkcvinl-zwgjerc 40,000-126,000-168,000 unit capsule, delay rel (Zenpep) See Rx Instructions PO .COMPLEX #320 caps 09/02/23 scopolamine base 1 mg over 3 days transdermal patch 1 patch transdermal Q3D PRN nausea 08/25/24 oxycodone 5 mg tablet 5 mg PO Q4H PRN pain 5 days #30 tabs 08/28/24 Hospital Course Operations None Procedures None Summary of Care Provided Minutes Spent on Discharge: 31 Hospital Course: This 69-year-old white female was seen in the emergency room and [facility] with chief complaint of diffuse abdominal pain. Patient had a history of pancreatitis in the past. Workup in the emergency room included a CT of the abdomen and pelvis which showed acute on chronic pancreatitis, patient's lipase was elevated. Patient was admitted to [place] [address] and given IV fluids and IV analgesics, her abdominal pain did not completely resolve but was under control with pain medication at the time of her discharge. I had a long talk with the patient's daughter by phone, it appears that the patient is noncompliant with her follow-up visits to gastroenterology. Patient's daughter also states the patient does not follow through with a number of things she is supposed to do. On 08/28/2024, patient was seen and examined: On examination she appeared in good health and spirits, she does not appear to be in any distress. Vital signs as documented. Skin warm and dry and without overt rashes. Neck without JVD, thyroid appears normal, trachea is midline, neck is supple. Lungs clear, normal air movement was noted. Heart exam notable for regular rhythm, normal sounds and absence of murmurs, rubs or gallops. Abdomen unremarkable and without evidence of organomegaly, masses, or abdominal aortic enlargement, bowel sounds are present in all 4 quadrants, no abdominal tenderness was noted. Extremities nonedematous, no cyanosis was noted, no clubbing was noted. Neuro: Cranial nerves II through XII are grossly intact, no focal motor deficits were noted, sensation to light touch and pinprick is intact, motor exam 5/5 throughout. Psych: Patient is alert and oriented x3, she does not appear anxious or depressed, she does not appear agitated. Patient was discharged home in stable condition on 08/28/2024 Weight / BMI Weight Weight: 98.3 kg Body Mass Index (BMI) 40.9 ABG / Lab / Microbiology Data 08/26/24 04:56 08/26/24 04:56 D/C Instructions Discharge Diet: No restrictions Weight Bearing Status: Full weight bearing DC O2, CPAP, BIPAP Needs Home O2 Discharge instructions: No Meaningful Use Info Meaningful Use Meaningful Use Diagnoses (Choose all that apply): None applicable Ischemic Stroke Statin Dosing Therapy Reference: STATIN DOSE THERAPY REFERENCE: * Patients > 75 years receive moderate or high dose statin therapy. * Patients 75 years or YOUNGER should receive HIGH intensity s (more content not included)... [facility] 08-26-2024 Telephone encounter Note Zoey case liner with [facility] calling to let Dr. Krishnamurthy know that pt has been admitted to [facility]. She was admitted yesterday for pancreatitis. [facility] 08-26-2024 Miscellaneous Notes Zoey case liner with [facility] calling to let Dr. Krishnamurthy know that pt has been admitted to [facility]. She was admitted yesterday for pancreatitis. documented in this encounter [facility] 07-24-2024 Telephone encounter Note Images from the original note were not included. Most recent Rheumatology visit: 05/22/2024 (with Radha Willis) Last Bone Density on file: 06/29/2024 Rheumatology Care Team: None on file Recent Office Visits - This Specialty 05/22/2024 PMR (polymyalgia rheumatica) ([facility]) Rheumatology Radha Willis MD 09/10/2023 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[facility]) Rheumatology Radha Willis MD 08/21/2023 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[facility]) Rheumatology Radha Willis MD Upcoming Rheumatology Appointments - Next 365 Days Visit Type Date Time Department [facility] 11/20/2024 12:30 PM [facility] CBC: Latest Ref Rng & Units 11/08/2023 05/22/2024 CBC WBC 3.70 - 11.00 k/uL 5.80 6.73 Hemoglobin 11.5 - 15.5 g/dL 11.8 11.5 Hematocrit 36.0 - 46.0 % 36.9 34.8 Platelet Count 150 - 400 k/uL 240 172 Abs Neut (ANC) 1.45 - 7.50 k/uL 3.55 4.18 Abs Lymph 1.00 - 4.00 k/uL 1.46 1.62 Vitamin D: Latest Ref Rng & Units 07/11/2023 05/22/2024 Vitamin D Vitamin D 25 Hydroxy 31.0 - 80.0 ng/mL 50.5 60.9 LFT: Latest Ref Rng & Units 11/08/2023 05/22/2024 CMP Sodium 136 - 144 mmol/L 140 143 Potassium 3.7 - 5.1 mmol/L 5.4 4.9 Chloride 98 - 107 mmol/L 106 108 CO2 22 - 30 mmol/L 24 26 Glucose 74 - 99 mg/dL 90 90 BUN 7 - 21 mg/dL 18 20 Creatinine 0.58 - 0.96 mg/dL 0.84 0.94 Calcium 8.5 - 10.2 mg/dL 8.7 9.2 AST 13 - 35 U/L 30 14 ALT 7 - 38 U/L 16 9 Alkaline Phosphatase 34 - 123 U/L 67 54 Hepatic Function: Creatinine: Latest Ref Rng & Units 11/08/2023 05/22/2024 Creatinine Creatinine 0.58 - 0.96 mg/dL 0.84 0.94 ESR/CRP: Latest Ref Rng & Units 07/29/2023 05/22/2024 ESR, WSR WSR 0 - 20 mm/hr 5 9 Latest Ref Rng & Units 07/29/2023 05/22/2024 CRP CRP <0.9 mg/dL <0.3 <0.3 Uric Acid: None on file in the last 6 months Open Standing (Multiple Instance) Lab Orders None Open Future (Single Instance) Lab Orders Expected Expires Ordered COMPLETE BLOOD COUNT AND DIFFERENTIAL [SQCBCDIF] 11/13/24 02/12/25 05/15/24 Auth. provider: Mauro Krishnamurthy MD Assoc. diagnoses: Essential hypertension COMPREHENSIVE METABOLIC PANEL [SQCMP] 11/13/24 02/12/25 05/15/24 Auth. provider: Mauro Krishnamurthy MD Assoc. diagnoses: Essential hypertension LIPID PANEL BASIC [SQLIPB] 11/13/24 02/12/25 05/15/24 Auth. provider: Mauro Krishnamurthy MD Assoc. diagnoses: Essential hypertension VITAMIN D 25 HYDROXY [SQVITD] 11/13/24 02/12/25 05/15/24 Auth. provider: Mauro Krishnamurthy MD Assoc. diagnoses: Other osteoporosis Stefani Branham RN [facility] 07-24-2024 Miscellaneous Notes Images from the original note were not included. Most recent Rheumatology visit: 05/22/2024 (with Radha Willis) Last Bone Density on file: 06/29/2024 Rheumatology Care Team: None on file Recent Office Visits - This Specialty 05/22/2024 PMR (polymyalgia rheumatica) (HCC) Rheumatology Radha Willis MD 09/10/2023 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HCC) Rheumatology Radha Willis MD 08/21/2023 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HCC) Rheumatology Radha Willis MD Upcoming Rheumatology Appointments - Next 365 Days Visit Type Date Time Department [facility] 11/20/2024 12:30 PM [facility] CBC: Latest Ref Rng & Units 11/08/2023 05/22/2024 CBC WBC 3.70 - 11.00 k/uL 5.80 6.73 Hemoglobin 11.5 - 15.5 g/dL 11.8 11.5 Hematocrit 36.0 - 46.0 % 36.9 34.8 Platelet Count 150 - 400 k/uL 240 172 Abs Neut (ANC) 1.45 - 7.50 k/uL 3.55 4.18 Abs Lymph 1.00 - 4.00 k/uL 1.46 1.62 Vitamin D: Latest Ref Rng & Units 07/11/2023 05/22/2024 Vitamin D Vitamin D 25 Hydroxy 31.0 - 80.0 ng/mL 50.5 60.9 LFT: Latest Ref Rng & Units 11/08/2023 05/22/2024 CMP Sodium 136 - 144 mmol/L 140 143 Potassium 3.7 - 5.1 mmol/L 5.4 4.9 Chloride 98 - 107 mmol/L 106 108 CO2 22 - 30 mmol/L 24 26 Glucose 74 - 99 mg/dL 90 90 BUN 7 - 21 mg/dL 18 20 Creatinine 0.58 - 0.96 mg/dL 0.84 0.94 Calcium 8.5 - 10.2 mg/dL 8.7 9.2 AST 13 - 35 U/L 30 14 ALT 7 - 38 U/L 16 9 Alkaline Phosphatase 34 - 123 U/L 67 54 Hepatic Function: Creatinine: Latest Ref Rng & Units 11/08/2023 05/22/2024 Creatinine Creatinine 0.58 - 0.96 mg/dL 0.84 0.94 ESR/CRP: Latest Ref Rng & Units 07/29/2023 05/22/2024 ESR, WSR WSR 0 - 20 mm/hr 5 9 Latest Ref Rng & Units 07/29/2023 05/22/2024 CRP CRP <0.9 mg/dL <0.3 <0.3 Uric Acid: None on file in the last 6 months Open Standing (Multiple Instance) Lab Orders None Open Future (Single Instance) Lab Orders Expected Expires Ordered COMPLETE BLOOD COUNT AND DIFFERENTIAL [SQCBCDIF] 04/04/25 07/04/25 10/04/24 Auth. provider: Mauro Krishnamurthy MD Assoc. diagnoses: Essential hypertension COMPREHENSIVE METABOLIC PANEL [SQCMP] 11/13/24 02/12/25 05/15/24 Auth. provider: Mauro Krishnamurthy MD Assoc. diagnoses: Essential hypertension LIPID PANEL BASIC [SQLIPB] 11/13/24 02/12/25 05/15/24 Auth. provider: Mauro Krishnamurthy MD Assoc. diagnoses: Essential hypertension VITAMIN D 25 HYDROXY [SQVITD] 11/13/24 02/12/25 05/15/24 Auth. provider: Mauro Krishnamurthy MD Assoc. diagnoses: Other osteoporosis Stefani Branham RN [facility] called requested refills for tocilizumab (ACTEMRA ACTPEN) 162 mg/0.9 mL Inject 162mg (1 pen) under the skin one time each week. documented in this encounter [facility] 07-24-2024 Telephone encounter Note [facility] called requested refills for tocilizumab (ACTEMRA ACTPEN) 162 mg/0.9 mL Inject 162mg (1 pen) under the skin one time each week. [facility] 07-24-2024 Telephone encounter Note The patient has been identified by name and date of : Yes pharmacy Caregiver verified no other encounters exist for this prescription request: Yes Caregiver confirmed with patient/requestor that no other refills are due, in the near future, with this provider at this time: Yes The last office visit in the department: 05/15/2024 Does the patient have a future office visit with this provider/department: Yes 11/16/2024 Requested Prescriptions Pending Prescriptions Disp Refills potassium chloride ER (KLOR-CON) 20 mEq tablet 30 tablet 5 Sig: Take 1 tablet by mouth once daily. ergocalciferol 50,000 unit capsule (VITAMIN D2, DRISDOL) 12 capsule 0 Sig: Take 1 capsule by mouth one time a week. Maria De Jesus Simon LPN July 24, 2024 10:54 AM [facility] 07-24-2024 Miscellaneous Notes The patient has been identified by name and date of : Yes pharmacy Caregiver verified no other encounters exist for this prescription request: Yes Caregiver confirmed with patient/requestor that no other refills are due, in the near future, with this provider at this time: Yes The last office visit in the department: 05/15/2024 Does the patient have a future office visit with this provider/department: Yes 11/16/2024 Requested Prescriptions Pending Prescriptions Disp Refills potassium chloride ER (KLOR-CON) 20 mEq tablet 30 tablet 5 Sig: Take 1 tablet by mouth once daily. ergocalciferol 50,000 unit capsule (VITAMIN D2, DRISDOL) 12 capsule 0 Sig: Take 1 capsule by mouth one time a week. Maria De Jesus Simon LPN July 24, 2024 10:54 AM documented in this encounter [facility] 07-01-2024 Telephone encounter Note Pt called and is notified of providers results and instructions. Pt voices understanding. Lolly Stover RN [facility] 07-01-2024 Miscellaneous Notes Pt called and is notified of providers results and instructions. Pt voices understanding. Lolly Stover RN Thryoid us still shows several nodules that could bear closer watching.. lets have endo follow them documented in this encounter [facility] 06-30-2024 Telephone encounter Note Thryoid us still shows several nodules that could bear closer watching.. lets have endo follow them [facility] 06-30-2024 Telephone encounter Note Patient notified. Verbalized understanding. Scheduled. [facility] 06-30-2024 Miscellaneous Notes Patient notified. Verbalized understanding. Scheduled. Bone density shows osteoporosis. Spine is worse than it had been in the past. If willing to consider meds, come in to discuss with one of us documented in this encounter [facility] 06-29-2024 Telephone encounter Note Bone density shows osteoporosis. Spine is worse than it had been in the past. If willing to consider meds, come in to discuss with one of us [facility] 06-26-2024 Telephone encounter Note The patient has been identified by name and date of : Yes Caregiver verified no other encounters exist for this prescription request: Yes Caregiver confirmed with patient/requestor that no other refills are due, in the near future, with this provider at this time: Yes The last office visit in the department: 05/15/2024 Does the patient have a future office visit with this provider/department: Yes 11/16/2024 Requested Prescriptions Pending Prescriptions Disp Refills amLODIPine (NORVASC) 10 mg tablet 90 tablet 3 Sig: Take 1 tablet by mouth once daily. pantoprazole DR (PROTONIX) 40 mg tablet 90 tablet 3 Sig: Take 1 tablet by mouth once daily. Maria De Jesus Simon LPN June 26, 2024 2:48 PM [facility] 06-26-2024 Miscellaneous Notes The patient has been identified by name and date of : Yes Caregiver verified no other encounters exist for this prescription request: Yes Caregiver confirmed with patient/requestor that no other refills are due, in the near future, with this provider at this time: Yes The last office visit in the department: 05/15/2024 Does the patient have a future office visit with this provider/department: Yes 11/16/2024 Requested Prescriptions Pending Prescriptions Disp Refills amLODIPine (NORVASC) 10 mg tablet 90 tablet 3 Sig: Take 1 tablet by mouth once daily. pantoprazole DR (PROTONIX) 40 mg tablet 90 tablet 3 Sig: Take 1 tablet by mouth once daily. Maria De Jesus Simon LPN June 26, 2024 2:48 PM documented in this encounter [facility] 06-26-2024 History of Present illness Narrative Radiology Service Progress Note PATIENT NAME: Augustine Pena DATE OF SERVICE: June 26, 2024 TIME: 10:03 AM PATIENT IDENTITY VERIFICATION COMPLETED USING TWO (2) IDENTIFIERS: Name and Date of confirmed by patient verbally. FALL SCREENING: Has the patient had 2 falls in the last year or 1 fall with injury or currently using an Ambulatory Assistive Device (Walker, Cane, Wheelchair, Crutches, etc.)? Yes, Patient High Risk for Falls What interventions were put in place to prevent falls during this visit? Offered Assistance with Transfers/Clothing and Increased Observations by Caregivers PATIENT GENDER DATA: Female. status: : No status: NO. PATIENT RELEVANT IMPLANT DATA REVIEWED: Not Applicable PATIENT PRESENTS WITH AN IMPLANTABLE OR ATTACHED SENIOR PHP WEB DEVELOPER: No RADIOLOGY DEPARTMENT: Ultrasound PERIPHERAL IV DATA: Not applicable SIGNED BY: Zeny Finch RDMS June 26, 2024 10:03 AM documented in this encounter [facility] 06-26-2024 Note HNO ID: [id number] Author: ZENY FINCH RDMS Service: ? Author Type: Size Mixer Type: Progress Notes Filed: 06/26/2024 10:04 Note Text: Radiology Service Progress Note PATIENT NAME: Augustine Pena DATE OF SERVICE: June 26, 2024 TIME: 10:03 AM PATIENT IDENTITY VERIFICATION COMPLETED USING TWO (2) IDENTIFIERS: Name and Date of confirmed by patient verbally. FALL SCREENING: Has the patient had 2 falls in the last year or 1 fall with injury or currently using an Ambulatory Assistive Device (Walker, Cane, Wheelchair, Crutches, etc.)? Yes, Patient High Risk for Falls What interventions were put in place to prevent falls during this visit? Offered Assistance with Transfers/Clothing and Increased Observations by Caregivers PATIENT GENDER DATA: Female. status: : No status: NO. PATIENT RELEVANT IMPLANT DATA REVIEWED: Not Applicable PATIENT PRESENTS WITH AN IMPLANTABLE OR ATTACHED SENIOR PHP WEB DEVELOPER: No RADIOLOGY DEPARTMENT: Ultrasound PERIPHERAL IV DATA: Not applicable SIGNED BY: Zeny Finch RDMS June 26, 2024 10:03 AM [facility] 06-26-2024 History of Present illness Narrative Radiology Service Progress Note PATIENT NAME: Augustine Pena DATE OF SERVICE: June 26, 2024 TIME: 9:26 AM PATIENT IDENTITY VERIFICATION COMPLETED USING TWO (2) IDENTIFIERS: Name and Date of confirmed by patient verbally. FALL SCREENING: Has the patient had 2 falls in the last year or 1 fall with injury or currently using an Ambulatory Assistive Device (Walker, Cane, Wheelchair, Crutches, etc.)? No PATIENT GENDER DATA: Female. status: : No status: NO. PATIENT RELEVANT IMPLANT DATA REVIEWED: Not Applicable PATIENT PRESENTS WITH AN IMPLANTABLE OR ATTACHED SENIOR PHP WEB DEVELOPER: No RADIOLOGY DEPARTMENT: Bone Density PERIPHERAL IV DATA: Not applicable SIGNED BY: RT Eddi(Rosie) June 26, 2024 9:26 AM documented in this encounter [facility] 06-26-2024 Note HNO ID: [id number] Author: GIOVANY ARCEO RT(Rosie) Service: ? Author Type: Technologist Type: Progress Notes Filed: 06/26/2024 09:35 Note Text: Radiology Service Progress Note PATIENT NAME: Augustine Pena DATE OF SERVICE: June 26, 2024 TIME: 9:26 AM PATIENT IDENTITY VERIFICATION COMPLETED USING TWO (2) IDENTIFIERS: Name and Date of confirmed by patient verbally. FALL SCREENING: Has the patient had 2 falls in the last year or 1 fall with injury or currently using an Ambulatory Assistive Device (Walker, Cane, Wheelchair, Crutches, etc.)? No PATIENT GENDER DATA: Female. status: : No status: NO. PATIENT RELEVANT IMPLANT DATA REVIEWED: Not Applicable PATIENT PRESENTS WITH AN IMPLANTABLE OR ATTACHED SENIOR PHP WEB DEVELOPER: No RADIOLOGY DEPARTMENT: Bone Density PERIPHERAL IV DATA: Not applicable SIGNED BY: RT Eddi(Rosie) June 26, 2024 9:26 AM [facility] 05-29-2024 Telephone encounter Note Prescription Refill Information The patient has been identified by name and date of : Yes Caregiver verified no other encounters exist for this prescription request: Yes Caregiver confirmed with patient/requestor that no other refills are due, in the near future, with this provider at this time: Yes The last office visit in the department: 05/15/24 Does the patient have a future office visit with this provider/department: Yes Requested Prescriptions Pending Prescriptions Disp Refills calcium carbonate 600 mg-cholecalciferol 400 units 600 mg-10 mcg (400 unit) tab 90 tablet 3 Sig: Take 1 tablet by mouth once daily. Reina Billy LPN May 29, 2024 10:53 AM [facility] 05-29-2024 Miscellaneous Notes Prescription Refill Information The patient has been identified by name and date of : Yes Caregiver verified no other encounters exist for this prescription request: Yes Caregiver confirmed with patient/requestor that no other refills are due, in the near future, with this provider at this time: Yes The last office visit in the department: 05/15/24 Does the patient have a future office visit with this provider/department: Yes Requested Prescriptions Pending Prescriptions Disp Refills calcium carbonate 600 mg-cholecalciferol 400 units 600 mg-10 mcg (400 unit) tab 90 tablet 3 Sig: Take 1 tablet by mouth once daily. Reina Billy LPN May 29, 2024 10:53 AM documented in this encounter [facility] 05-25-2024 Telephone encounter Note Spoke with patient, relayed message below. Verbalizes understanding-agrees with plan. Andie Fang RN [facility] 05-25-2024 Miscellaneous Notes Spoke with patient, relayed message below. Verbalizes understanding-agrees with plan. Andie Fang RN ----- Message from Radha Willis MD sent at 05/25/2024 1:32 PM EDT ----- Please call patient to let her know her labs look great and that we need to do nothing else at this time other than continue the weekly Actemra injections. Thank you! documented in this encounter [facility] 05-25-2024 Telephone encounter Note ----- Message from Radha Willis MD sent at 05/25/2024 1:32 PM EDT ----- Please call patient to let her know her labs look great and that we need to do nothing else at this time other than continue the weekly Actemra injections. Thank you! [facility] 05-22-2024 Note Addended by: RADHA WILLIS on: 05/22/2024 11:30 AM Modules accepted: Orders [facility] 05-22-2024 Miscellaneous Notes Addended by: RADHA WILLIS on: 05/22/2024 11:30 AM Modules accepted: Orders documented in this encounter [facility] 05-22-2024 Instructions Radha Willis MD - 05/22/2024 11:06 AM EDT Labs on 1st floor, be sure to tell them to do BOTH Dr. Willis and Dr. Krishanmurthy labs Make appointment with Dr. Krishnamurthy for the prolia Let me know if you get PMR symptoms or new Headaches, visual changes, jaw pain Make a reminder on your phone for the Actemra shots once a week Follow up 6 months with me documented in this encounter [facility] 05-22-2024 History of Present illness Narrative Images from the original note were not included. Rheumatology FOLLOW UP VISIT Date of Service: 05/22/2024 Patient: Augustine Pena Medical Record: [id number] Primary Care Physician: Mauro Krishnamurthy MD Last Rheumatology visit: 09/10/2023 (with Radha Willis) Chief Complaint: Osteoarthritis (Complains of arthritis in right leg very bad) INTERVAL HISTORY Last evaluated 08/2023 at which point plan was to continue Actemra weekly injections and Prolia per her PCP Saw cardiology for ascending aortic aneurysm with stability Seeing a specialist for pancreatitis, put on enzymes, Dr. Friend Still on actemra, has been forgetting to give them to herself Off of prednisone for awhile now Has baseline arthritis pain, R leg, no PMR sx Missed a prolia shot with PCP Tries to do PT at home, sometimes difficult Uses essental oil for pain which helps L shoulder R leg Ros otherwise negative RHEUMATOLOGIC HISTORY She is currently taking tocilizumab. Augustine is RF negative - 10 (05/09/2022). Her most recent CHALINO was negative (05/09/2022). HISTORY OF PRESENT ILLNESS 1. PMR 08/2022 with transformation to GCA 01/17/2023 2. Mechanical tenderness over left TMJ 3. 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 Hypertension 5. Hyperlipidemia 6. Lung nodules 7. Thoracic aortic aneurysm 8. Thyroid goiter 9. OA 10. Recurrent pancreatitis, follows with local GI Dr. Friend Treatment: Prednisone intermittently since 05/2022, high-dose 08/23/2022, 60 mg down titration due to rastafarian pain, negative biopsy then more rapid taper 10 mg a week 09/20, 15 mg 10/18, Relapse on 12.5 mg, increased to 15 mg 12/21/2022, off since sometime fall/winter 2022 (unclear was in and out of hospitals and nursing facilities) Transformation to GCA 01/17/2023, reinitiate 60 mg daily while awaiting Actemra Actemra 01/17/2023-present weekly dosing Current prednisone dosing: OFF Work-up: Negative temporal artery biopsy 08/2022 Negative temporal artery ultrasound 04/2022: CHALINO negative Negative RF CK24 ESR trend: 04/25 50 05/09 51 05/23 29 05/31 43 07/04 68 08/01 27 2, 5 10/17, 15 10/31 17 11/27 27 12/06 27 5 29 12/21 29 06/26 5 07/29 5 CRP trend 04/25, 3.9 05/09, 3.7 05/23, less than 0.3 05/31, 4.6 07/04, 7.0 08/01, 0.3 09/20, 0.3 10/17, 2.1 10/31 0.5 11/27 0.6 12/06 0.8 12/12 0.7 12/21 1.0 06/26 < 0.3 07/29 < 0.3 Augustine Pena is a 66 year old White female with history of hypertension, hyperlipidemia, lung nodules, anxiety/depression, thoracic aortic aneurysm, thyroid goiter, OA who presents to rheumatology clinic for evaluation of PMR. Chart review reveals she was evaluated by her PCP 04/25 at which point she was complaining of weakness and swelling. She also endorsed pain throughout her body with stiffness. Radiographs demonstrated large right suprapatellar effusion, severe OA on right knee, degenerative change in cervical spine, minimal pelvic degeneration with preserved hip joints. Extensive laboratory evaluation was done which demonstrated normal CK, CRP 3.9, ESR 50, normal TSH, negative CHALINO, negative RF. She was initiated on prednisone 10/5 10 mg as well as physical therapy. Today she presents to clinic alone. She states that for many years she has had recurrent pain in her right leg described as the whole leg starting in her back and radiating down. She also notes tenderness on the medial aspect of her right knee and subjective redness and swelling over the tibia. Sometime early to mid last year she started feeling quite poor with significant pain and stiffness in her shoulders and hips and neck. She describes all over pain that had a few hours worth of morning stiffness. She was eventually started on prednisone 10 mg in May by her PCP with significant improvement in her symptoms about 50%. She reportedly went through a few trials of steroids and every time she would discontinue her steroids, her symptoms would recur. This is also reflected in her serial inflammatory markers. She does note newer onset temporal pain within the past year on the left but cannot state when exactly it started. She thinks her temporal pain could be related to posterior neck pain. She has not had any visual changes, black spots, blurry vision, blind spots, jaw pain, jaw claudication, tongue claudication. She has a long history of night sweats for many years that have not changed in quality however she now has sweating during the day. Rheumatologic review of systems otherwise notable for years of constipation. She denies fevers, unintentional weight loss, headaches, history of uveitis, dry eye, dry mouth, sores in her nose or mouth, malar rash, photosensitivity, difficulty swallowing, cough, congestion, chest pain, shortness of breath, nausea, vomiting, abdominal pain, blood in her urine or stool, Raynaud's, numbness/tingling. Pain Evaluation 09/07/2022 09/07/2022 09/12/2022 09/20/2022 12/21/2022 Pain Evaluation Pain Score 0 0 5 5 4 Location Leg-Right Description Aching;Sharp Duration (Timeframe) Years Weeks Frequency Continuous Continuous Intervention Declined PATIENT-ENTERED DATA PROMIS Assessments 06/28/2016 11/27/2016 12/27/2016 PROMIS Assessments Physical Health Percentile 10 6.55 7 15 Mental Health Percentile 53 43.25 43 43 Pain Score 2 5 3 4 Multiple values from one day are sorted in reverse-chronological order RAPID 3 Mitchell Activities of Daily Living No Data Dress self? - Get in and out of bed? - Walk outdoors? - Wash and dry body? - Get in and out of car? - RAPID 3 Disease Activity Weighed Score Levels: 0 - 1: Near Remission 1.3 - 2.0: Low Severity 2.3 - 4.0: Moderate Severity 4.3 - 10.0: High Severity No data to display ROS RHEUMATOLOGY REVIEW OF SYSTEMS Complete ROS (HEENT, respiratory, cardiology, GI, , skin, psych, hematology, endocrine, neuro, musculoskeletal) negative except as noted in HPI. HISTORIES Past medical, surgical, family, and social history reviewed and notable changes since last visit include: Noted in HPI MEDICATIONS Current Outpatient Medications Medication Sig ergocalciferol 50,000 unit capsule (VITAMIN D2, DRISDOL) Take 1 capsule by mouth one time a week. scopolamine (TRANSDERM-SCOP) patch 1.5 mg/72 hr (delivers 1 mg over 3 days) Apply 1 Patch as directed every 72 hours. potassium chloride ER (KLOR-CON) 20 mEq tablet Take 1 tablet by mouth once daily. metoprolol succinate ER (TOPROL XL) 25 mg 24 hr tablet Take 1 tablet by mouth once daily. ZENPEP 40,000-126,000- 168,000 unit delayed release capsule pantoprazole DR (PROTONIX) 40 mg tablet Take 1 tablet by mouth once daily. amLODIPine (NORVASC) 10 mg tablet Take 1 tablet by mouth once daily. tocilizumab (ACTEMRA ACTPEN) 162 mg/0.9 mL Inject 162mg (1 pen) under the skin one time each week. calcium carbonate 600 mg-cholecalciferol 400 units 600 mg-10 mcg (400 unit) tab Take 1 tablet by mouth once daily. Shower Chair with Back once daily. Use as directed sertraline (ZOLOFT) 50 mg tablet Take 50 mg by mouth once daily. Taking 150 mg Daily buPROPion XL (WELLBUTRIN XL) 150 mg 24 hr tablet ibuprofen (MOTRIN ORAL) Take by mouth as needed. nystatin (MYCOSTATIN) cream Apply 1 application to affected area twice daily. Incontinence Pants, Reusable misc 5 Units continuous. ALLERGIES ALLERGIES No Known Allergies PHYSICAL EXAM VITAL SIGNS: BP 138/69 Pulse 51 Ht 5' 1 (1.55m) Wt 218 lb (98.9kg) LMP 06/17/2016 BMI 41.21 kg/(m^2). GENERAL: Alert and oriented, appears a stated age. In no acute distress. EYES: Anicteric sclerae, no conjunctival injection HENT: Normocephalic, atraumatic NECK: No mass or asymmetry. No lymphadenopathy RESPIRATORY: Normal respiratory effort. Clear to auscultation bilaterally CARDIOVASCULAR: Regular in rate and rhythm without murmurs, rubs, or gallops ABDOMEN: Soft, nontender, nondistended NEUROLOGIC: No gross focal neurologic deficits. Cranial nerves II-XII grossly intact. SKIN: No rash, thickening, nodules, discoloration. Normal nails. MSK: Normal range of motion, no deformities, no swelling, and no tenderness in the hands, wrists, elbows, shoulders, spine, hips, knees, ankles, feet except as noted below: OA changes, in a wheelchair, difficulty with walking, no evidence of erosive disease or synovitis LABS Reviewed in [facility], notable for: Latest Ref Rng & Units 06/26/2023 07/11/2023 07/29/2023 11/08/2023 CBC WBC 3.70 - 11.00 k/uL 3.74 3.37 3.50 5.80 Hemoglobin 11.5 - 15.5 g/dL 11.1 11.2 12.1 11.8 Hematocrit 36.0 - 46.0 % 33.5 34.6 36.8 36.9 Platelet Count 150 - 400 k/uL 218 224 256 240 Abs Neut (ANC) 1.45 - 7.50 k/uL 1.56 1.69 1.94 3.55 Abs Lymph 1.00 - 4.00 k/uL 1.24 0.89 0.86 1.46 Latest Ref Rng & Units 02/18/2023 06/26/2023 07/11/2023 11/08/2023 CMP Sodium 136 - 144 mmol/L 137 139 138 140 Potassium 3.7 - 5.1 mmol/L 3.9 5.1 4.1 5.4 Chloride 97 - 105 mmol/L 100 105 104 106 CO2 22 - 30 mmol/L 24 25 24 24 Glucose 74 - 99 mg/dL 107 81 92 90 BUN 7 - 21 mg/dL 14 21 17 18 Creatinine 0.58 - 0.96 mg/dL 0.90 1.17 1.00 0.84 Calcium 8.5 - 10.2 mg/dL 9.0 10.0 9.6 8.7 AST 13 - 35 U/L 26 30 ALT 7 - 38 U/L 33 16 Alkaline Phosphatase 34 - 123 U/L 69 67 Latest Ref Rng & Units 12/20/2022 06/26/2023 07/11/2023 07/29/2023 ESR, WSR WSR 0 - 20 mm/hr 29 5 8 5 Latest Ref Rng & Units 01/16/2023 06/26/2023 07/11/2023 07/29/2023 CRP CRP <0.9 mg/dL 0.7 <0.3 <0.3 <0.3 Latest Ref Rng & Units 04/25/2022 CK CK 42 - 196 U/L 24 Latest Ref Rng & Units 05/09/2022 RF and CCP Rheumatoid Factor <16 IU/mL 10 Latest Ref Rng & Units 07/02/2016 01/18/2021 Hepatitis Screen Hep A Ab, IgM Negative Negative Hep B Core Ab, IgM Negative Negative Hep C Antibody IA Negative Negative HBsAg Negative Negative Latest Ref Rng & Units 05/09/2022 Antibodies CHALINO Negative Negative Latest Ref Rng & Units 06/15/2013 12/07/2021 Urinalysis Protein, Urine Negative trace 1+ RBC, Urine 0-3 /HPF 0-3 /HPF IMAGING Reviewed in [facility], notable for: No new relevant imaging ASSESSMENT Augustine Pena is a 68 year old White female with history of hypertension, hyperlipidemia, lung nodules, anxiety/depression, thoracic aortic aneurysm, thyroid goiter, OA, recurrent pancreatitis who presents to rheumatology clinic for follow-up of PMR with transformation to GCA. Remains in remission. Continue Actemra, off of prednisone, Healthcare maintenance as below. IMPRESSIONS Diagnoses: (M35.3) PMR (polymyalgia rheumatica) (HCC) (primary encounter diagnosis) (M81.8) Other osteoporosis (Z51.81) Medication monitoring encounter (D84.9) Immunosuppression (HCC) (Z71.85) Vaccine counseling (M81.0) Age-related osteoporosis without current pathological fracture PLAN 1. Continue Actemra weekly injection 2. Will recheck ESR, CRP due to missing Actemra injections 3. Continue off of prednisone 4. Continue Prolia per PCP, vitamin D 50,000 units once a week for osteoporosis with previous fracture, appears to be due for bone density and overdue for Prolia. She is overdue 5. Vaccine counseling: She will qualify for flu, COVID, pneumonia, shingles, Tdap, RSV, defer to PCP 6. Follow-up 6 months in person visit Current Immunizations Reviewed on 11/13/2013 Name Date COVID-19 vaccine ([employer]) 05/15/2024, 06/26/2023 COVID-19 vaccine, monovalent (MODERNA) 10/23/2021, 11/24/2020, 10/27/2020 influenza (HD-IIV3) vaccine 05/15/2024 influenza (HD-IIV4) vaccine 06/26/2023, 07/04/2022 influenza (IIV3) vaccine 05/12/2016, 05/05/2014 influenza (IIV4) vaccine 05/25/2016 pneumococcal (PCV13) vaccine 05/24/2021 pneumococcal (PPV23) vaccine 02/18/2023, 10/02/2013 pneumococcal vaccine 10/02/2013 tuberculin skin test 10/18/2016, 10/11/2016 Orders this visit: Office Visit on 05/22/24 SEDIMENTATION RATE, WESTERGREN C-REACTIVE PROTEIN CONSULT TO RHEUM/IMMUN DISEASE Return in about 6 months (around 11/20/2024). Medical Decision Making: Problems: Moderate: 2+ stable chronic illnesses Data: Unique source(s) for external note(s) reviewed: 3+ Unique test result(s) reviewed: 2 Unique test(s) ordered: 3+ Independent interpretation of test from other physician/QHCP Risk: Moderate: Drug management High: High risk from testing/treatment Medical Decision Making Level: 5 - High This note was partially generated with the assistance of [employer] voice recognition software. An attempt was made to correct any dictation errors however there may be some incorrect words, spellings, and punctuation. Radha Willis MD Rheumatology Date: May 22, 2024 Time: 10:56 AM documented in this encounter [facility] 05-15-2024 Instructions Mauro Krishnamurthy MD - 05/15/2024 10:43 AM EDT BONE MINERAL DENSITY PATIENT INSTRUCTIONS ======== Bone mineral density testing measures the amount of calcium in certain parts of your bones. This information determines how strong your bones are. The test is used to detect osteoporosis, a disease in which the bone's mineral content and density are low, increasing a person's risk of fractures. The lumbar spine (lower back) and the hip are the skeletal sites usually examined. For the test, remember that: 1. You cannot take this test if you are . 2. Eat a normal diet on the day of the test. 3. Take your medications as you normally would. 4. DO NOT take calcium supplements (such as Tums) for 24 hours before the test. 5. On the day of the test, leave valuables (jewelry or credit cards) at home. 6. The test should be performed prior to oral, rectal or IV contrast studies, or at least 7 days after any of these studies. For the test, you may be asked to wear a hospital gown. You will lie on your back, on a padded table, in a comfortable position. Generally, you can resume your usual activities immediately. documented in this encounter [facility] 05-15-2024 History of Present illness Narrative Patient presents with: 6 Month Exam HPI: Patient presents today for office visit for 6 month follow up. Ambulating today in wheelchair. No falls. Was able to push the wheelchair and walk to the scale to get weighed. She states she's doing really well. GERD: Continues taking Pantoprazole 40 mg daily. Denies any heartburn. Symptoms are controlled. No GI concerns. Denies bloody or black stool. Currently on Zenpep enzymes Missed her appointment with Dr. Massey. Needs to reschedule. Denies abd pain Denies any nausea or vomiting Denies diarrhea HTN: Taking Amlodipine 10 mg daily. Does not monitor at home. Denies chest pain and shortness of breath. Denies headaches and dizziness. Denies palpitations and syncope. Swelling is much better. PSYCH: Moods have been pretty good. Sees counseling center. GASTROENTEROLOGY:over due for follow up. No gi issues. RHEUM: last saw in Aug. Now off of steroids. Was to follow up over summer. Do not need to monitor sed rate unless symptomatic. Is on vit and prolia. Over due to get done. Reinforced need to follow up. Take actemira Follows with cardiology MEDICATIONS: Current Outpatient Medications Medication Sig ergocalciferol 50,000 unit capsule (VITAMIN D2, DRISDOL) Take 1 capsule by mouth one time a week. scopolamine (TRANSDERM-SCOP) patch 1.5 mg/72 hr (delivers 1 mg over 3 days) Apply 1 Patch as directed every 72 hours. potassium chloride ER (KLOR-CON) 20 mEq tablet Take 1 tablet by mouth once daily. metoprolol succinate ER (TOPROL XL) 25 mg 24 hr tablet Take 1 tablet by mouth once daily. ZENPEP 40,000-126,000- 168,000 unit delayed release capsule pantoprazole DR (PROTONIX) 40 mg tablet Take 1 tablet by mouth once daily. amLODIPine (NORVASC) 10 mg tablet Take 1 tablet by mouth once daily. tocilizumab (ACTEMRA ACTPEN) 162 mg/0.9 mL Inject 162mg (1 pen) under the skin one time each week. calcium carbonate 600 mg-cholecalciferol 400 units 600 mg-10 mcg (400 unit) tab Take 1 tablet by mouth once daily. Shower Chair with Back once daily. Use as directed sertraline (ZOLOFT) 50 mg tablet Take 50 mg by mouth once daily. Taking 150 mg Daily buPROPion XL (WELLBUTRIN XL) 150 mg 24 hr tablet ibuprofen (MOTRIN ORAL) Take by mouth as needed. nystatin (MYCOSTATIN) cream Apply 1 application to affected area twice daily. Incontinence Pants, Reusable misc 5 Units continuous. Current Facility-Administered Medications Medication Dose Route Frequency denosumab 60 mg injection (PROLIA) 60 mg SUBCUTANEOUS Q 6 MONTH ALLERGIES: ALLERGIES No Known Allergies PAST MEDICAL HISTORY Diagnosis Date Anxiety Depression Hypercholesteremia Hypertension Lung nodules unchanged ct 03/24 Pancreatitis 05/2019 Thoracic aortic aneurysm (HCC) 09/23 followed by cardiology Thyroid goiter needs follow up in 05/28 PAST SURGICAL HISTORY Procedure Laterality Date COLONOSCOPY 09/25/2021 repeat in 5 years COLONOSCOPY FLX DX W/COLLJ SPEC WHEN PFRMD 03/31/2014 Colonoscopy COLONOSCOPY FLX DX W/COLLJ SPEC WHEN PFRMD 04/05/2016 Colonoscopy (MAC) EGD W/O BRSH SPEC VARICIES INJ 09/25/2021 LAPS SURG CHOLECYSTECTOMY W/CHOLANGIOGRAPHY 10/25/2016 normal IOC NEUROPLASTY &/TRANSPOS MEDIAN NRV CARPAL TUNNE Right 1989 Carpal tunnel decomp NEUROPLASTY &/TRANSPOS MEDIAN NRV CARPAL TUNNE Left 12/26/2017 Left carpal tunnel release TOTAL ABDOMINAL HYSTERECT W/WO RMVL TUBE OVARY 10/01/2013 FAMILY HISTORY Problem Relation Age of Onset Colon Cancer Mother Cancer Father lung Breast Cancer Sister Cancer Brother lung Social History Tobacco Use Smoking status: Former Current packs/day: 0.00 Average packs/day: 0.5 packs/day for 12.0 years (6.0 ttl pk-yrs) Types: Cigarettes Start date: 05/29/1999 Quit date: 05/29/2011 Years since quittin.9 Smokeless tobacco: Former Vaping Use Vaping status: Never Used Substance Use Topics Alcohol use: Not Currently Drug use: No Comment: marijuana only as teen Reviewed current medications, allergies, past medical history, surgical history, family history and social history today. REVIEW OF SYSTEMS All other reviewed and negative other than HPI. HEALTH MAINTENANCE: Reviewed health maintenance issues today and recommended the following in detail. Anxiety Screening Never done Mammogram Screening due on 06/22/2022 Bone Density Screening due on 06/22/2023 Influenza Vaccine(1) due on 04/12/2024 Covid-19 Vaccine( season) due on 04/12/2024 VITALS: BP 130/70 Pulse (!) 58 Ht 154.9 cm (5' 1) Wt 97.5 kg (215 lb) LMP 06/17/2016 BMI 40.62 kg/m Last 4 Encounter Wt Readings: Date: Wt: 11/08/2023 97.5 kg (215 lb) 10/09/2023 95.3 kg (210 lb) 07/29/2023 95.3 kg (210 lb 3.2 oz) 06/26/2023 99.8 kg (220 lb) PHYSICAL EXAMINATION: General appearance: Well appearing, alert, in no acute distress, well-hydrated, well nourished. Skin: Skin color, texture, turgor normal, no suspicious rashes or lesions Head: Normocephalic, no masses, lesions, tenderness or abnormalities Eyes: Anicteric sclera. Pupils are equally round and reactive to light. Extraocular movements are intact. Lungs: Lungs clear to auscultation. No wheezing, rhonchi, rales Heart: RRR without murmur, gallop, or rubs. No ectopy Abdomen: Normal abdominal exam, Abdomen soft, non-tender. Bowel sounds normal. No masses, organomegaly Extremities: No deformities, edema, skin discoloration, clubbing or cyanosis. Good capillary refill. Musculoskeletal: No joint swelling, deformity, or tenderness ASSESSMENT/PLAN: 1. PMR (polymyalgia rheumatica) (HCC) - ICD9: 725, ICD10: M35.3 (primary diagnosis) - over due for follow up with rheum. - CONSULT TO RHEUM/IMMUN DISEASE 2. Encounter for immunization - ICD9: V03.89, ICD10: Z23 - INFLUENZA VACCINE, PRSV FREE, AGE 65+ YR, HIGH DOSE, TRIVALENT (FLUZONE HIGH-DOSE) - [employer] COVID-19 VACCINE AGE 12+ YR ([place]Y) 3. Essential hypertension - ICD9: 401.9, ICD10: I10 - Controlled - Continue current medications 4. 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HCC) - ICD9: 446.5, ICD10: M31.6 - as above. 5. Orthostatic hypotension - ICD9: 458.0, ICD10: I95.1 - stable. 6. Aneurysm of ascending aorta without rupture (HCC) - ICD9: 441.2, ICD10: I71.21 - per cardiology. Doing well . 7. Chronic pancreatitis, unspecified pancreatitis type (HCC) - ICD9: 577.1, ICD10: K86.1 - doing much better. Follow up with gi. - CONSULT TO GASTROENTEROLOGY 8. Thyroid nodule - ICD9: 241.0, ICD10: E04.1 - recheck, - US THYROID/PARATHYROID 9. Obesity, Class III, BMI >= 40 - ICD9: 278.01, ICD10: E66.01 - watch diet. 10. Major depressive disorder, recurrent, mild (HCC) - ICD9: 296.31, ICD10: F33.0 - doing well. Per psych 11. Other osteoporosis - ICD9: 733.09, ICD10: M81.8 - per hruem. - DXA-AXIAL SKELETON - BD DXA TRABECULAR BONE SCORE (TBS) 12. Encounter for screening examination for other mental health and behavioral disorders - ICD9: V79.8, ICD10: Z13.3 - ANXIETY SCREENING 13. Need for vaccination - ICD9: V05.9, ICD10: Z23 - [employer] COVID-19 VACCINE AGE 12+ YR ([place]Y) Mauro Krishnamurthy MD documented in this encounter [facility] 05-01-2024 Telephone encounter Note The patient has been identified by name and date of : Yes Caregiver verified no other encounters exist for this prescription request: Yes Caregiver confirmed with patient/requestor that no other refills are due, in the near future, with this provider at this time: Yes The last office visit in the department: 11/08/2023 Does the patient have a future office visit with this provider/department: Yes 05/12/2024 Requested Prescriptions Pending Prescriptions Disp Refills ergocalciferol 50,000 unit capsule (VITAMIN D2, DRISDOL) 12 capsule 0 Sig: Take 1 capsule by mouth one time a week. Bianka Kilgore RN [facility] 05-01-2024 Miscellaneous Notes The patient has been identified by name and date of : Yes Caregiver verified no other encounters exist for this prescription request: Yes Caregiver confirmed with patient/requestor that no other refills are due, in the near future, with this provider at this time: Yes The last office visit in the department: 11/08/2023 Does the patient have a future office visit with this provider/department: Yes 05/12/2024 Requested Prescriptions Pending Prescriptions Disp Refills ergocalciferol 50,000 unit capsule (VITAMIN D2, DRISDOL) 12 capsule 0 Sig: Take 1 capsule by mouth one time a week. Bianka Kilgore RN documented in this encounter [facility] 04-03-2024 Telephone encounter Note The following approved medication requests have been transmitted electronically. Requested Prescriptions Pending Prescriptions Disp Refills scopolamine (TRANSDERM-SCOP) patch 1.5 mg/72 hr (delivers 1 mg over 3 days) 24 Patch 0 Sig: Apply 1 Patch as directed every 72 hours. Patrizia Pabon APRN.CNP [facility] 04-03-2024 Miscellaneous Notes The following approved medication requests have been transmitted electronically. Requested Prescriptions Pending Prescriptions Disp Refills scopolamine (TRANSDERM-SCOP) patch 1.5 mg/72 hr (delivers 1 mg over 3 days) 24 Patch 0 Sig: Apply 1 Patch as directed every 72 hours. Patrizia Pabon APRN.CNP The patient has been identified by name and date of : Yes Caregiver verified no other encounters exist for this prescription request: Yes Caregiver confirmed with patient/requestor that no other refills are due, in the near future, with this provider at this time: Yes The last office visit in the department: 11/08/2023 Does the patient have a future office visit with this provider/department: Yes 05/12/2024 Requested Prescriptions Pending Prescriptions Disp Refills scopolamine (TRANSDERM-SCOP) patch 1.5 mg/72 hr (delivers 1 mg over 3 days) 24 Patch 0 Sig: Apply 1 Patch as directed every 72 hours. Bianka Kilgore RN documented in this encounter [facility] 04-03-2024 Telephone encounter Note The patient has been identified by name and date of : Yes Caregiver verified no other encounters exist for this prescription request: Yes Caregiver confirmed with patient/requestor that no other refills are due, in the near future, with this provider at this time: Yes The last office visit in the department: 11/08/2023 Does the patient have a future office visit with this provider/department: Yes 05/12/2024 Requested Prescriptions Pending Prescriptions Disp Refills scopolamine (TRANSDERM-SCOP) patch 1.5 mg/72 hr (delivers 1 mg over 3 days) 24 Patch 0 Sig: Apply 1 Patch as directed every 72 hours. Bianka Kilgore RN [facility] 02-07-2024 Telephone encounter Note The patient has been identified by name and date of : Yes Caregiver verified no other encounters exist for this prescription request: Yes Caregiver confirmed with patient/requestor that no other refills are due, in the near future, with this provider at this time: Yes The last office visit in the department: 11/08/2023 Does the patient have a future office visit with this provider/department: Yes 03/23/2024 Requested Prescriptions Pending Prescriptions Disp Refills potassium chloride ER (KLOR-CON) 20 mEq tablet 30 tablet 5 Sig: Take 1 tablet by mouth once daily. ergocalciferol 50,000 unit capsule (VITAMIN D2, DRISDOL) 12 capsule 0 Sig: Take 1 capsule by mouth one time a week. scopolamine (TRANSDERM-SCOP) patch 1.5 mg/72 hr (delivers 1 mg over 3 days) 24 Patch 0 Sig: Apply 1 Patch as directed every 72 hours. Jillian Silver RN February 07, 2024 1:27 PM [facility] 02-07-2024 Miscellaneous Notes The patient has been identified by name and date of : Yes Caregiver verified no other encounters exist for this prescription request: Yes Caregiver confirmed with patient/requestor that no other refills are due, in the near future, with this provider at this time: Yes The last office visit in the department: 11/08/2023 Does the patient have a future office visit with this provider/department: Yes 03/23/2024 Requested Prescriptions Pending Prescriptions Disp Refills potassium chloride ER (KLOR-CON) 20 mEq tablet 30 tablet 5 Sig: Take 1 tablet by mouth once daily. ergocalciferol 50,000 unit capsule (VITAMIN D2, DRISDOL) 12 capsule 0 Sig: Take 1 capsule by mouth one time a week. scopolamine (TRANSDERM-SCOP) patch 1.5 mg/72 hr (delivers 1 mg over 3 days) 24 Patch 0 Sig: Apply 1 Patch as directed every 72 hours. 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 [facility] 01-15-2024 Miscellaneous Notes Pharmacy stated wheel truing machine tender was the last to prescribe this medication, but they told pharmacy that they had to request it from pcp. Patient has been identified by name and date of : Yes, Provider [facility] phones for refill(s): Requested Prescriptions Pending Prescriptions Disp Refills metoprolol succinate ER (TOPROL XL) 25 mg 24 hr tablet Sig: Take 1 tablet by mouth once daily. Date of last office visit in primary care: 11/08/2023 Date of next office visit in primary care: 03/23/2024 Please advise. Thank you. Brie Milner. documented in this encounter [facility] 01-15-2024 Telephone encounter Note Patient has been identified by name and date of : Yes, Provider [facility] phones for refill(s): Requested Prescriptions Pending Prescriptions Disp Refills metoprolol succinate ER (TOPROL XL) 25 mg 24 hr tablet Sig: Take 1 tablet by mouth once daily. Date of last office visit in primary care: 11/08/2023 Date of next office visit in primary care: 03/23/2024 Please advise. Thank you. Brie Milner. [facility] 11-21-2023 Miscellaneous Notes Patient has been identified by name and date of : Yes, Provider Dr. Krishnamurthy Date 11/21/23 Time 4:19 pm Pharmacy phones for refill(s): Requested Prescriptions Pending Prescriptions Disp Refills scopolamine (TRANSDERM-SCOP) patch 1.5 mg/72 hr (delivers 1 mg over 3 days) 24 Patch 0 Sig: Apply 1 Patch as directed every 72 hours. Date of last office visit in primary care: 11/08/2023 Date of next office visit in primary care: 05/12/24 Thank you. Valentine Coffey LPN. documented in this encounter [facility] 11-15-2023 Miscellaneous Notes Patient has been identified by name and date of : Yes, Niesha Beckwith RN Date 11/15/2023 Time 2:50 pm Pharmacy phones for refill(s): Requested Prescriptions Pending Prescriptions Disp Refills ergocalciferol 50,000 unit capsule (VITAMIN D2, DRISDOL) 12 capsule 0 Sig: Take 1 capsule by mouth one time a week. Date of last office visit in primary care: 11/08/2023 Date of next office visit in primary care: 03/23/2024 Please advise. Thank you. Niesha Beckwith RN. documented in this encounter [facility] 11-15-2023 Miscellaneous Notes Called and updated patient on lab results. Aleah Garcia LPN November 15, 2023 8:26 AM Called and left message for patient to call office back for lab results. Patient identified self on Voicemail. Aleah Garcia LPN November 11, 2023 11:39 AM Labs show cholesterol is up. Watch diet. Potassium is high. Likely lab error. Recheck k in next week. documented in this encounter [facility] 10-29-2023 Miscellaneous Notes Pt notified. Anny Casas MA Can use mucinex. If she has a home covid test can do it. Can also come into urgent care to be seen if desires or worsens. Pt called to see what she can take for a cold. OTC. PT reports she is on a lot of medication and not sure what she can have. Symptoms: nasal drainage (clear in color), sore throat with swollen glands, coughing all x 2 days. DENIES: fever, chest pain, SOB Please advise pt. Okay to leave a detailed message. Valentine Coffey LPN documented in this encounter [facility] 10-28-2023 Miscellaneous Notes PA for Actemra has been APPROVED is for 10/17/2023 until further notice. Patient is to call pharmacy to process the prescription claim. Approval send to scanning. Patient has been notified. Prior authorization for tocilizumab (ACTEMRA ACTPEN) 162 mg/0.9 mL completed via CoverMyMeds and submitted to [facility]. Final determination will be made with in 24-72 hours. Lexie Pike MA Augustine is calling Radha Willis MD today with concern regarding Insurance Authorization Patient has been identified by name and birthdate. Duration of symptoms: N/A Person calling: pharmacy: Yaquelin from [facility] [phone] Yaquelin is calling for status on prior authorization for Actemra Actpen. Patient needs to start it on Saturday. Yaquelin is wondering if she should call insurance. Closing statement: Prior Authorization Calls: Thank you for calling [facility], your call will be returned within the next 24 hours or next business day. Maria Del Carmen Jeffery documented in this encounter [facility] 10-09-2023 History of Present illness Narrative Chief Complaint: Patient presents with: Consult: Aneurysm of ascending aorta without Rupture History of Present Illness: Augustine Pena is a 68 year old female who presents for a follow up on ascending aortic dilatation. Patient has a history of polymyalgia rheumatica and mild ascending aortic aneurysm, hypertension, dyslipidemia and obesity. She is an established patient of Dr. Sun who sees her at the [place] location. She said she was in the alf for a few months so she was not able to schedule her annual follow-up with him so she scheduled to see me today in the office. She denies chest pain, shortness of breath, orthopnea, cough, edema, palpitations, PND, lightheadedness or syncope. PAST MEDICAL HISTORY Diagnosis Date Anxiety Depression Hypercholesteremia Hypertension Lung nodules unchanged ct 03/24 Pancreatitis 05/2019 Thoracic aortic aneurysm (HCC) 09/23 followed by cardiology Thyroid goiter needs follow up in 05/28 PAST SURGICAL HISTORY Procedure Laterality Date COLONOSCOPY 09/25/2021 repeat in 5 years COLONOSCOPY FLX DX W/COLLJ SPEC WHEN PFRMD 03/31/2014 Colonoscopy COLONOSCOPY FLX DX W/COLLJ SPEC WHEN PFRMD 04/05/2016 Colonoscopy (MAC) EGD W/O BRSH SPEC VARICIES INJ 09/25/2021 LAPS SURG CHOLECYSTECTOMY W/CHOLANGIOGRAPHY 10/25/2016 normal IOC NEUROPLASTY &/TRANSPOS MEDIAN NRV CARPAL TUNNE Right 1989 Carpal tunnel decomp NEUROPLASTY &/TRANSPOS MEDIAN NRV CARPAL TUNNE Left 12/26/2017 Left carpal tunnel release TOTAL ABDOMINAL HYSTERECT W/WO RMVL TUBE OVARY 10/01/2013 FAMILY HISTORY Problem Relation Age of Onset Colon Cancer Mother Cancer Father lung Breast Cancer Sister Cancer Brother lung Social History Tobacco Use Smoking status: Former Packs/day: 0.50 Years: 12.00 Additional pack years: 0.00 Total pack years: 6.00 Types: Cigarettes Quit date: 05/29/2011 Years since quittin.3 Smokeless tobacco: Former Vaping Use Vaping Use: Never used Substance Use Topics Alcohol use: Not Currently Drug use: No Comment: marijuana only as teen Current Outpatient Medications Medication Sig scopolamine (TRANSDERM-SCOP) patch 1.5 mg/72 hr (delivers 1 mg over 3 days) Apply 1 Patch as directed every 72 hours. ergocalciferol 50,000 unit capsule (VITAMIN D2, DRISDOL) Take 1 capsule by mouth one time a week. CREON 24,000-76,000 -120,000 unit delayed release capsule Take 3 capsules by mouth three times a day with meals. pantoprazole DR (PROTONIX) 40 mg tablet Take 1 tablet by mouth once daily. amLODIPine (NORVASC) 10 mg tablet Take 1 tablet by mouth once daily. potassium chloride ER (KLOR-CON) 20 mEq tablet Take 1 tablet by mouth once daily. tocilizumab (ACTEMRA ACTPEN) 162 mg/0.9 mL Inject 162mg (1 pen) under the skin one time each week. calcium carbonate 600 mg-cholecalciferol 400 units 600 mg-10 mcg (400 unit) tab Take 1 tablet by mouth once daily. Shower Chair with Back once daily. Use as directed sertraline (ZOLOFT) 50 mg tablet Take 50 mg by mouth once daily. Taking 150 mg Daily buPROPion XL (WELLBUTRIN XL) 150 mg 24 hr tablet ibuprofen (MOTRIN ORAL) Take by mouth as needed. nystatin (MYCOSTATIN) cream Apply 1 application to affected area twice daily. Incontinence Pants, Reusable misc 5 Units continuous. metoprolol succinate ER (TOPROL XL) 25 mg 24 hr tablet Take 1 tablet by mouth once daily. Current Facility-Administered Medications Medication Dose Route Frequency denosumab 60 mg injection (PROLIA) 60 mg SUBCUTANEOUS Q 6 MONTH perflutren lipid microspheres 1.3 mL in NaCl (PF) 0.9% 10 mL injection (DEFINITY) INTRAVENOUS DIRECTED PRN sodium chloride 0.9 % (flush) 10 mL (BD POSIFLUSH) 10 mL INTRAVENOUS DIRECTED PRN ALLERGIES No Known Allergies Review of Systems: General: No weight loss, malaise, fevers, chills, or night sweats HEENT: Negative for epistaxis Neck: Negative for pain and significant neck swelling Respiratory: Negative for cough, shortness of breath at rest or on exertion, wheezing Cardiac: Negative history of chest pain on exertion, dyspnea on exertion, orthopnea, paroxysmal nocturnal dyspnea, lower extremity edema, presyncope, syncope, or palpitations Gastrointestinal: Negative history of abdominal pain, nausea, vomiting, constipation, diarrhea, melena, or hematochezia Urinary: Negative history of dysuria, hematuria, or frequency Peripheral vascular: No claudication Musculoskeletal: Negative for joint aches/pain, neck pain, or back pain Neurologic: Negative history of dizziness/lightheadedness, vertigo, numbness/tingling of hands or feet Hematologic: Negative for easy bruising or easy bleeding. Endocrine: Negative history of obesity Skin: Negative history of rash and itching Other: The rest of the review of systems is unremarkable and negative or non-contributory Physical Examination: BP 106/68 Pulse 56 Ht 5' 1 (1.55m) Wt 210 lb (95.3kg) SpO2 99% LMP 06/17/2016 BMI 39.70 kg/(m^2). General appearance: Normal, alert, appears to be in no acute distress, cooperative Head: Normocephalic, atraumatic HEENT: Extraocular movements intact; mucous membranes moist; no JVD Lungs: CTAB; no rales, rhonchi, or wheezes Heart: RRR; normal S1/S2; no murmurs/gallops/rubs Abdomen: Abdomen soft, non-distended, non-tender. NABS Extremities: No cyanosis, clubbing or edema Skin: No rashes noted Neurologic: Nonfocal Psych: Normal mood/affect Cardiac Testing and Procedures: Electrocardiogram: 10/09/2023: Sinus bradycardia at 54 bpm. Possible anterior infarct age undetermined. Echocardiogram 07/09/2023: EF 66%. Mid ascending aorta 4 cm distal ascending aorta 4.2 cm. 10/28/2015: EF 58%. Mid ascending 4 cm distal ascending aorta 4.[address] chest 03/02/2023: CT without contrast: Ascending aorta stable at 3.9 cm 12/12/2022: CTA chest: 3.9 cm ectasia of ascending aorta I have personally reviewed the Electrocardiogram. ASSESSMENT/PLAN: 1. Aneurysm of ascending aorta without rupture (HCC) - ICD9: 441.2, ICD10: I71.21 This has been stable over many years now both on echocardiogram as well as CT chest that was done last year in the summer. Patient just had an echocardiogram in June 2023 which shows stable aortic size. To repeat echocardiogram next year. 2. Essential hypertension Adequately controlled on the current medications. Patient is established with Dr. Sun and needs to location and wanted to follow-up with him on an annual basis. She states she made the appointment with me today as she was not able to get in to see around this time which is her annual follow-up visit time. Joaquin Cantrell MD documented in this encounter [facility] 09-23-2023 History of Present illness Narrative Patient presents for Prolia injection. Denies any problems at this time. Patient instructed on any SE of medication, verbalized understanding and agreed to proceed with treatment. Tolerated injection well. Stefani Atkins LPN documented in this encounter [facility] 09-20-2023 Miscellaneous Notes Patient has been identified by name and date of : Yes, Provider [facility] phones for refill(s): Requested Prescriptions Pending Prescriptions Disp Refills scopolamine (TRANSDERM-SCOP) patch 1.5 mg/72 hr (delivers 1 mg over 3 days) 24 Patch 0 Sig: Apply 1 Patch as directed every 72 hours. Date of last office visit in primary care: 07/29/2023 Date of next office visit in primary care: 09/23/2023 Please advise. Thank you. Brie Antoine Pss. documented in this encounter [facility] 09-13-2023 Miscellaneous Notes Scheduled, pt aware of appt date/time Vinita Chisholm Needs appt with Stefani in two weeks for prolia Pt informed and would like to receive in [place]. Leesa Singh I just spoke with rheum and we are behind on prolia. Does he want to do here in [place]? documented in this encounter [facility] 07-31-2023 Miscellaneous Notes Patient informed and verbalized understanding. Vinita Chisholm Anemia is better. White count is still minimally low. Recheck cbc in six weeks. documented in this encounter [facility] 07-18-2023 Miscellaneous Notes Pt calling stating that Dr Krishnamurthy reduced her potassium to one 20 meq tablet daily. (Per TE 06/27/23) pt states pharmacy is still sending new rx with old instructions of two tablets in the am and one tablet at night. Needing new rx sent to pharm with updated dosing instructions. Call pt only if problem. Order pended, please review. Zo Estes LPN documented in this encounter [facility] 07-16-2023 Miscellaneous Notes Needs to go to ordering provider Patient has been identified by name and date of : Yes, Provider Dr. Krishnamurthy Date 07/16/23 Time 8:53 am Pharmacy phones for refill(s): Requested Prescriptions Pending Prescriptions Disp Refills tocilizumab (ACTEMRA ACTPEN) 162 mg/0.9 mL 4 mL 11 Sig: Inject 162mg (1 pen) under the skin one time each week. Date of last office visit in primary care: 06/26/2023 Date of next office visit in primary care: 07/26/2023 Last 2 Encounter Wt Readings: Date: Wt: 06/26/2023 99.8 kg (220 lb) 02/18/2023 110.8 kg (244 lb 3.2 oz) Previous labs/tests for medication: Diabetes: Hemoglobin A1C (%) Date Value 08/01/2022 5.4 Thank you. aVlentine Coffey LPN. documented in this encounter [facility] 07-15-2023 Miscellaneous Notes Patient is notified of results and verbalized understanding. Patient is taking Vitamin D2 50,000 units one take a week prescribed by her PCP. Lexie Pike MA Please call patient and let her know her labs look great! We will continue with Actemra and off of the prednisone. Is she on any vitamin D? If not, I recommend taking once a day over the counter 1000 units D3. Thanks! documented in this encounter [facility] 07-15-2023 Miscellaneous Notes Letter mailed to pt home of results. Anny Casas MA Called and left message on patients voicemail to return call to the office and ask to speak with a triage nurse. Dipika Kapadia Ma Labs stable. Anemia is stable. White count down slightly. Recheck labs with next ov. documented in this encounter [facility] 07-08-2023 Miscellaneous Notes [facility] calls to request prescriptions refills. Verified doses they have on file from alf orders. Potassium 20 mEq daily pended but might not need? Pended 30 day supply as patient is to have follow up appt. Niesha Beckwith RN documented in this encounter [facility] 07-01-2023 Miscellaneous Notes Patient has been identified by name and date of : Yes, Provider Dr Krishnamurthy Date 07/01/23 Time 1500. Pharmacy phones for refill(s): Requested Prescriptions Pending Prescriptions Disp Refills calcium carbonate 600 mg-cholecalciferol 400 units 600 mg-10 mcg (400 unit) tab Date of last office visit in primary care: 06/26/2023 Date of next office visit in primary care: 07/26/2023 Last 2 Encounter Wt Readings: Date: Wt: 06/26/2023 99.8 kg (220 lb) 02/18/2023 110.8 kg (244 lb 3.2 oz) Previous labs/tests for medication: Blood Pressure: BUN (mg/dL) Date Value 06/26/2023 21 11/18/2020 16 Sodium (mmol/L) Date Value 06/26/2023 139 11/18/2020 138 Last 1 Encounter BP Readings: Date: BP: 06/26/2023 124/82 Please advise. Thank you. Lolly Stover RN. documented in this encounter [facility] 06-27-2023 Miscellaneous Notes Patient returned call and given provider's message below with verbalized understanding. Patient reports she is not taking any diuretics. Patient denies vomiting or diarrhea. Patient agreeable to take 20 mEq potassium once daily, and has enough pills for 15 more days. Patient agreeable to have lab draw in 2 weeks, around Jul 11 and advised not to take anything with biotin (B7) in it for 12 hours prior to lab draw- such as MVI or dietary supplements. Left message for patient to call office back Adrianne Elizabeth Ma Her kidney function is down slightly. Her potassium is high normal. Make sure not on any diuretics we do not know about. If having nothing like vomiting and diarrhea, we will taper off her potassium and see if it is ok. Should not continue to need itr. Change to just 20 meq in am and stop the 40 meq. Recheck bmp in two weeks She is mildly anemic. Do anemia labs in two weeks. documented in this encounter [facility] 06-26-2023 History of Present illness Narrative Patient presents with: Hospital F/U HPI: Patient presents today for office visit for follow up. SNF FOLLOW UP: Reason for visit: intractable NVD, very limited records. Which facility: [facility] from [facility] Date of visit: came home 06/18/23 Diagnosis: pancreatits Testing done: unsure. Treatment given: started on Creon Current symptoms: feeling much better home with home health Did well at [facility] was able to lose some weight and is stronger. Questioning dosage of her potassium? Taking twice a day and total of 60 mEq. I am unsure why she is still on potassium. She also mentions she had anemia. She had further work up via GASTROENTEROLOGY but I have no records for that as well. Hospitalized in February. Then to skilled care at [facility]. Emotionally she is better. Her abd pain is better. No currrent gi issue. No chest pain or shortness of breath. No edema. No dizziness. MEDICATIONS: Current Outpatient Medications Medication Sig amLODIPine (NORVASC) 10 mg tablet Take 10 mg by mouth once daily. calcium carbonate 600 mg-cholecalciferol 400 units 600 mg-10 mcg (400 unit) tab CREON 24,000-76,000 -120,000 unit delayed release capsule pantoprazole DR (PROTONIX) 40 mg tablet Take 40 mg by mouth once daily. scopolamine (TRANSDERM-SCOP) patch 1.5 mg/72 hr (delivers 1 mg over 3 days) sertraline (ZOLOFT) 50 mg tablet Take 50 mg by mouth once daily. buPROPion XL (WELLBUTRIN XL) 150 mg 24 hr tablet potassium chloride ER (KLOR-CON) 20 mEq tablet Taking 40mEq in the AM and 20mEq at bedtime ergocalciferol 50,000 unit capsule (VITAMIN D2, DRISDOL) Take 1 capsule by mouth one time a week. tocilizumab (ACTEMRA ACTPEN) 162 mg/0.9 mL Inject 162mg (1 pen) under the skin one time each week. nystatin (MYCOSTATIN) cream Apply 1 application to affected area twice daily. metoprolol succinate ER (TOPROL XL) 25 mg 24 hr tablet Take 1 tablet by mouth once daily. Shower Chair with Back once daily. Use as directed ibuprofen (MOTRIN ORAL) Take by mouth as needed. Incontinence Pants, Reusable misc 5 Units continuous. Current Facility-Administered Medications Medication Dose Route Frequency perflutren lipid microspheres 1.3 mL in NaCl (PF) 0.9% 10 mL injection (DEFINITY) INTRAVENOUS DIRECTED PRN sodium chloride 0.9 % (flush) 10 mL (BD POSIFLUSH) 10 mL INTRAVENOUS DIRECTED PRN denosumab 60 mg injection (PROLIA) 60 mg SUBCUTANEOUS Q 6 MONTH ALLERGIES: ALLERGIES No Known Allergies PAST MEDICAL HISTORY Diagnosis Date Anxiety Depression Hypercholesteremia Hypertension Lung nodules unchanged ct 03/24 Pancreatitis 05/2019 Thoracic aortic aneurysm (HCC) 09/23 followed by cardiology Thyroid goiter needs follow up in 05/28 PAST SURGICAL HISTORY Procedure Laterality Date COLONOSCOPY 09/25/2021 repeat in 5 years COLONOSCOPY FLX DX W/COLLJ SPEC WHEN PFRMD 03/31/2014 Colonoscopy COLONOSCOPY FLX DX W/COLLJ SPEC WHEN PFRMD 04/05/2016 Colonoscopy (MAC) EGD W/O BRSH SPEC VARICIES INJ 09/25/2021 LAPS SURG CHOLECYSTECTOMY W/CHOLANGIOGRAPHY 10/25/2016 normal IOC NEUROPLASTY &/TRANSPOS MEDIAN NRV CARPAL TUNNE Right 1989 Carpal tunnel decomp NEUROPLASTY &/TRANSPOS MEDIAN NRV CARPAL TUNNE Left 12/26/2017 Left carpal tunnel release TOTAL ABDOMINAL HYSTERECT W/WO RMVL TUBE OVARY 10/01/2013 FAMILY HISTORY Problem Relation Age of Onset Colon Cancer Mother Cancer Father lung Breast Cancer Sister Cancer Brother lung Social History Tobacco Use Smoking status: Former Packs/day: 0.50 Years: 12.00 Additional pack years: 0.00 Total pack years: 6.00 Types: Cigarettes Quit date: 05/29/2011 Years since quittin.0 Smokeless tobacco: Former Vaping Use Vaping Use: Never used Substance Use Topics Alcohol use: Not Currently Drug use: No Comment: marijuana only as teen Reviewed current medications, allergies, past medical history, surgical history, family history and social history today. REVIEW OF SYSTEMS Due for follow up with her other specialists. Her pmr symptoms are better as well. All other reviewed and negative other than HPI. VITALS: BP 124/82 Pulse 64 Wt 99.8 kg (220 lb) LMP 06/17/2016 SpO2 100% BMI 41.57 kg/m Last 4 Encounter Wt Readings: Date: Wt: 02/18/2023 110.8 kg (244 lb 3.2 oz) 12/21/2022 113.4 kg (250 lb) 12/12/2022 113.9 kg (251 lb) 11/22/2022 0 kg () PHYSICAL EXAMINATION: General appearance: Well appearing, alert, in no acute distress, well-hydrated, well nourished. Skin: Skin color, texture, turgor normal, no suspicious rashes or lesions Head: Normocephalic, no masses, lesions, tenderness or abnormalities Lungs: Lungs clear to auscultation. No wheezing, rhonchi, rales Heart: RRR without murmur, gallop, or rubs. No ectopy Abdomen: Normal abdominal exam, Abdomen soft, non-tender. Bowel sounds normal. No masses, organomegaly Extremities: No deformities, edema, skin discoloration, clubbing or cyanosis. Good capillary refill. Musculoskeletal: No joint swelling, deformity, or tenderness Peripheral pulses: Normal Neuro: Negative. ASSESSMENT/PLAN: 1. Chronic pancreatitis, unspecified pancreatitis type (HCC) - ICD9: 577.1, ICD10: K86.1 (primary diagnosis) - very difficult to assess given I have nearly no records and only given short time to evaluate patient. Addressed urgent issues today. Check labs and continue meds until I can collect the past info. Get back into her specialists as well. 2. Encounter for immunization - ICD9: V03.89, ICD10: Z23 - INFLUENZA VACCINE, PRSV FREE, AGE 65+ YR, HIGH DOSE, QUADRIVALENT (FLUZONE HIGH-DOSE) - [employer] COVID-19 VACCINE (2022- SEASON) AGE 12+ YR 3. PMR (polymyalgia rheumatica) (HCC) - ICD9: 725, ICD10: M35.3 - C-REACTIVE PROTEIN (CRP) - SED RATE WESTERGREN - CONSULT TO RHEUM/IMMUN DISEASE 4. Essential hypertension - ICD9: 401.9, ICD10: I10 - Controlled - Continue current medications - CBC + DIFF - BASIC METABOLIC PNL 5. Hypercholesteremia - ICD9: 272.0, ICD10: E78.00 6. Aneurysm of ascending aorta without rupture (HCC) - ICD9: 441.2, ICD10: I71.21 Over due for follow up - ECHO - PERFLUTREN LIPID MICROSPHERES 1.1 MG/ML INJECTION IN NS 10 ML - SODIUM CHLORIDE 0.9 % (FLUSH) INJECTION SYRINGE - CONSULT TO CARDIOLOGY 7. Orthostatic hypotension - ICD9: 458.0, ICD10: I95.1 8. Major depressive disorder, recurrent, mild (HCC) - ICD9: 296.31, ICD10: F33.0 - doing well. Mauro Krishnamurthy MD RTO for 40 minutes once records etc are obtained for complete follow up. documented in this encounter [facility] 06-20-2023 Miscellaneous Notes Call placed to Dena with [employer] and verbal orders given as requested for Tubi-manufacturing production technician. Dena verbalizes understanding. Niesha Beckwith, RN Ok to change order to tubi manufacturing production technician for bilateral lower leg swelling Dena with [employer] calls to let provider know she will see patient weekly for 8 weeks for custodial. Dena reports that currently patient has an order from the rehab facility to wear master flex wraps to bilateral legs for swelling. Apply daily. Dena reports they aren't able to go to the house daily to put them on and patient wasn't consistently wearing them in the rehab facility because only one nurse knew how to properly apply them. Dena asking if she could change order to tubi manufacturing production technician for bilateral lower leg swelling as patient will have assistance to apply this in the home. Dena requests call back at [phone]. Niesha Beckwith, RN documented in this encounter [facility] 06-19-2023 Miscellaneous Notes Received updated medication list from [facility]. Medications reconciled. Vinita Chisholm documented in this encounter [facility] 06-11-2023 Miscellaneous Notes Call to Farrah and notified her of PCP's verbal okay to follow up. Dipika Kapadia Ma ok Farrah from [facility] asking if pcp will follow pt for custodial & Pt? Puja Bedoya LPN documented in this encounter [facility] 05-27-2023 Miscellaneous Notes [facility] calling patient requesting refill on Lisinopril rx that was given to her by Hospitalist. Pending rx needs completed. Please advise Patient has been identified by name and date of : Pharmacy phones for refill(s): Requested Prescriptions Pending Prescriptions Disp Refills lisinopril (ZESTRIL) 10 mg tablet Sig: Take 1 tablet by mouth once daily. 2 tabs in the morning and 1 at night Date of last office visit in primary care: 02/18/2023 Date of next office visit in primary care: No future appt scheduled Last 2 Encounter Wt Readings: Date: Wt: 02/18/2023 110.8 kg (244 lb 3.2 oz) 12/21/2022 113.4 kg (250 lb) Previous labs/tests for medication: Blood Pressure: BUN (mg/dL) Date Value 02/18/2023 14 11/18/2020 16 Sodium (mmol/L) Date Value 02/18/2023 137 11/18/2020 138 Last 1 Encounter BP Readings: Date: BP: 02/18/2023 138/78 Please advise. Thank you. Maria De Jesus Simon LPN. documented in this encounter [facility] 05-02-2023 Miscellaneous Notes Phone and spoke with Theodora. Advised Theodora to restart the 10 mg prednisone immediately until labs resolve at which point we will recommend additional taper. Theodora voiced understanding. Ayden Kemp R.N. Recommend restarting 10 mg prednisone immediately until labs resolve at which point we will recommend additional taper. Phone and spoke with Theodora the nurse at [facility]. Theodora states that patient took her last Prednisone 10 mg dose once a day on April 24, 2023. Theodora advised that patient needs an ESR and CRP monthly and now. Theodora states that she will have labs done on tomorrow. Advised to continue on Actemra weekly. Last Actemra was given on Saturday. Today's visit faxed to [facility]. Ayden Kemp R.N. Patient is calling back to speak with someone. Per Dr. Radha Willis: Please call patient's alf [facility] to clarify what dose of prednisone she is on. Please asked them to obtain monthly ESR, CRP, she is due now. I need these levels in order to recommend ongoing steroid taper. Please also fax them my clinic note from today and let them know that once we obtain new ESR, CRP we will reach back out to them with prednisone recommendations. Recommend continuing Actemra weekly injections. documented in this encounter [facility] 05-02-2023 History of Present illness Narrative Images from the original note were not included. Rheumatology FOLLOW UP VISIT Date of Service: 05/02/2023 Patient: Augustine Pena Medical Record: [id number] Primary Care Physician: Mauro Krishnamurthy MD Last Rheumatology visit: 03/27/2023 (with Radha Willis) Chief Complaint: Follow Up This is a virtual visit using Audio Only Visit. It required patient-provider interaction for the medical decision making as documented below. Patient consented to this form of visit. I have communicated my name and active licensure. The patient's identity and physical location were verified at the time of this visit. Either the patient or their legal mortician supplies sales representative has been informed of the risks and benefits of -- and alternatives to -- treatment through a remote evaluation and consents to proceed with the evaluation remotely. INTERVAL HISTORY Doing pretty well Still in alf Missed one shot of actemra, then got one yesterday so will now take on Wednesdays Unknown prednisone dose, thinks 1 pill now Symptoms are gone! No headaches, stiffness/pain in hips/shoulders, jaw pain, jaw claudication Retaining water and is swollen in legs and feet, x 1 week, both legs up past legs Walks with a walker every day No CP, SOB [facility] Dr ordered compression socks, told keep elevated, helps some Sees cardiology yearly, 05/20/2023 for aortic aneurysm, no known heart failure RHEUMATOLOGIC HISTORY She is currently taking tocilizumab. Augustine is RF negative - 10 (05/09/2022). Her most recent CHALINO was negative (05/09/2022). HISTORY OF PRESENT ILLNESS 1. PMR 08/2022 with transformation to GCA 01/17/2023 2. Mechanical tenderness over left TMJ Treatment: Prednisone intermittently since 05/2022, high-dose 08/23/2022, 60 mg down titration due to rastafarian pain, negative biopsy then more rapid taper 10 mg a week 09/20, 15 mg 10/18, Relapse on 12.5 mg, increased to 15 mg 12/21/2022 Transformation to GCA 01/17/2023, reinitiate 60 mg daily while awaiting Actemra Actemra 01/17/2023-present weekly dosing Current prednisone dosing: Presumably 10 mg, she is not sure Work-up: Negative temporal artery biopsy 08/2022 Negative temporal artery ultrasound 04/2022: CHALINO negative Negative RF CK24 ESR trend: 04/25 50 05/09 51 05/23 29 05/31 43 07/04 68 08/01 27 09/20, 5 10/17, 15 10/31 17 11/27 27 12/06 27 12/12 29 12/21 29 CRP trend 04/25, 3.9 05/09, 3.7 05/23, less than 0.3 05/31, 4.6 07/04, 7.0 08/01, 0.3 09/20, 0.3 10/17, 2.1 10/31 0.5 11/27 0.6 12/06 0.8 12/12 0.7 12/21 1.0 Augustine Pena is a 66 year old White female with history of hypertension, hyperlipidemia, lung nodules, anxiety/depression, thoracic aortic aneurysm, thyroid goiter, OA who presents to rheumatology clinic for evaluation of PMR. Chart review reveals she was evaluated by her PCP 04/25 at which point she was complaining of weakness and swelling. She also endorsed pain throughout her body with stiffness. Radiographs demonstrated large right suprapatellar effusion, severe OA on right knee, degenerative change in cervical spine, minimal pelvic degeneration with preserved hip joints. Extensive laboratory evaluation was done which demonstrated normal CK, CRP 3.9, ESR 50, normal TSH, negative CHALINO, negative RF. She was initiated on prednisone 10/5 10 mg as well as physical therapy. Today she presents to clinic alone. She states that for many years she has had recurrent pain in her right leg described as the whole leg starting in her back and radiating down. She also notes tenderness on the medial aspect of her right knee and subjective redness and swelling over the tibia. Sometime early to mid last year she started feeling quite poor with significant pain and stiffness in her shoulders and hips and neck. She describes all over pain that had a few hours worth of morning stiffness. She was eventually started on prednisone 10 mg in May by her PCP with significant improvement in her symptoms about 50%. She reportedly went through a few trials of steroids and every time she would discontinue her steroids, her symptoms would recur. This is also reflected in her serial inflammatory markers. She does note newer onset temporal pain within the past year on the left but cannot state when exactly it started. She thinks her temporal pain could be related to posterior neck pain. She has not had any visual changes, black spots, blurry vision, blind spots, jaw pain, jaw claudication, tongue claudication. She has a long history of night sweats for many years that have not changed in quality however she now has sweating during the day. Rheumatologic review of systems otherwise notable for years of constipation. She denies fevers, unintentional weight loss, headaches, history of uveitis, dry eye, dry mouth, sores in her nose or mouth, malar rash, photosensitivity, difficulty swallowing, cough, congestion, chest pain, shortness of breath, nausea, vomiting, abdominal pain, blood in her urine or stool, Raynaud's, numbness/tingling. Pain Evaluation Pain Evaluation 09/07/2022 09/07/2022 09/12/2022 09/20/2022 12/21/2022 Pain Score 0 0 5 5 4 Location - - Leg-Right - - Description - - - Aching;Sharp - Duration (#) - - - - - Duration (Timeframe) - - - Years Weeks Frequency - - - Continuous Continuous Intervention - - - Declined - PATIENT-ENTERED DATA PROMIS Assessments PROMIS Assessments 11/27/2016 11/27/2016 12/27/2016 Physical Health Percentile 7 % 6.55 % 15 % Mental Health Percentile 43 % 43.25 % 43 % Pain Score 3 5 4 RAPID 3 [place] Activities of Daily Living No Data Dress self? - Get in and out of bed? - Walk outdoors? - Wash and dry body? - Get in and out of car? - RAPID 3 Disease Activity Weighed Score Levels: 0 - 1: Near Remission 1.3 - 2.0: Low Severity 2.3 - 4.0: Moderate Severity 4.3 - 10.0: High Severity No flowsheet data found. REVIEW OF SYSTEMS Complete ROS (HEENT, respiratory, cardiology, GI, , skin, psych, hematology, endocrine, neuro, musculoskeletal) negative except as noted in HPI. HISTORIES Past medical, surgical, family, and social history reviewed and notable changes since last visit include: Noted in HPI MEDICATIONS Current Outpatient Medications Medication Sig buPROPion XL (WELLBUTRIN XL) 150 mg 24 hr tablet lisinopril (ZESTRIL) 10 mg tablet Take 10 mg by mouth once daily. 2 tabs in the morning and 1 at night potassium chloride ER (KLOR-CON) 20 mEq tablet (Patient not taking: Reported on 02/18/2023) ergocalciferol 50,000 unit capsule (VITAMIN D2, DRISDOL) Take 1 capsule by mouth one time a week. tocilizumab (ACTEMRA ACTPEN) 162 mg/0.9 mL Inject 162mg (1 pen) under the skin one time each week. benzonatate (TESSALON PERLES) 100 mg capsule Take 1 capsule by mouth three times daily as needed for cough. omeprazole (PRILOSEC) 20 mg capsule Take 1 capsule by mouth once daily. psyllium husk (METAMUCIL) 3.4 gram/5.4 gram powd Take 3.4 g by mouth once daily. In 8 oz of water polyethylene glycol 3350 (MIRALAX, GLYCOLAX) 17 gram/dose powder Use as directed for Miralax / Gatorade Bowel Prep Kit Bisacodyl (DULCOLAX) 5 mg tab Use as directed for Miralax / Gatorade Bowel Prep Kit ibuprofen (MOTRIN ORAL) Take by mouth as needed. nystatin (MYCOSTATIN) cream Apply 1 application to affected area twice daily. LORazepam (ATIVAN) 0.5 mg Take 0.5 mg by mouth once daily as needed. Incontinence Pants, Reusable misc 5 Units continuous. metoprolol succinate ER (TOPROL XL) 25 mg 24 hr tablet Take 1 tablet by mouth once daily. QUEtiapine (SEROQUEL) 50 mg tablet Take 50 mg by mouth daily at bedtime. sertraline 100 mg tablet Take 200 mg by mouth once daily. ALLERGIES ALLERGIES No Known Allergies PHYSICAL EXAM N/A LABS Reviewed in [facility], notable for: No new labs available for review CBC Latest Ref Rng & Units 12/07/2021 08/01/2022 12/12/2022 02/18/2023 WBC 3.70 - 11.00 k/uL 6.76 13.74(H) 14.57(H) 12.55(H) HEMOGLOBIN 11.5 - 15.5 g/dL 13.0 12.0 13.3 12.4 HEMOGLOBIN, LEATHA 11.5 - 15.5 g/dL - - - - HEMATOCRIT 36.0 - 46.0 % 39.5 37.9 40.8 40.7 PLATELETS 150 - 400 k/uL 328 322 361 225 ABS NEUT (ANC) 1.45 - 7.50 k/uL 4.68 11.08(H) 12.32(H) 11.58(H) ABS NEUT, LEATHA 1.45 - 7.50 k/uL - - - - ABS LYMP, LEATHA 1.00 - 4.00 k/uL - - - - ABS LYMPH 1.00 - 4.00 k/uL 1.45 1.78 1.36 0.52(L) CMP Latest Ref Rng & Units 12/07/2021 08/01/2022 12/12/2022 02/18/2023 SODIUM 136 - 144 mmol/L 139 135(L) 138 137 SODIUM, LEATHA 132 - 148 mmol/L - - - - SODIUM, LEATHA 132 - 148 mmol/L - - - - POTASSIUM 3.7 - 5.1 mmol/L 4.1 4.5 4.5 3.9 POTASSIUM, LEATHA 3.5 - 5.0 mmol/L - - - - CHLORIDE 97 - 105 mmol/L 102 97 100 100 CHLORIDE, LEATHA 98 - 110 mmol/L - - - - CO2 22 - 30 mmol/L 26 25 23 24 CO2, LEATHA 23.0 - 32.0 mmol/L - - - - GLUCOSE 74 - 99 mg/dL 90 80 85 107(H) GLUCOSE, LEATHA 65 - 100 mg/dL - - - - BUN 7 - 21 mg/dL 21 20 18 14 BUN, LEATHA 10 - 25 mg/dL - - - - CREATININE 0.58 - 0.96 mg/dL 0.79 0.74 0.89 0.90 CREATININE, LEATHA 0.7 - 1.4 mg/dL - - - - CALCIUM, LEATHA 8.5 - 10.5 mg/dL - - - - CALCIUM, TOTAL 8.5 - 10.2 mg/dL 9.4 8.9 9.5 9.0 AST 13 - 35 U/L 22 - - 26 AST, LEATHA 7 - 40 U/L - - - - ALT 7 - 38 U/L 13 - - 33 ALT, LEATHA 0 - 45 U/L - - - - ALKALINE PHOSPHATASE 34 - 123 U/L 87 - - 69 ESR, WSR Latest Ref Rng & Units 11/27/2022 12/06/2022 12/12/2022 12/20/2022 WSR 0 - 20 mm/hr 27(H) 27(H) 29(H) 29(H) CRP Latest Ref Rng & Units 12/06/2022 12/12/2022 12/20/2022 01/16/2023 CRP <0.9 mg/dL 0.8 0.7 1.0(H) 0.7 CK Latest Ref Rng & Units 04/25/2022 CK 42 - 196 U/L 24(L) RF and CCP Latest Ref Rng & Units 05/09/2022 RHEUMATOID FACTOR <16 IU/mL 10 Hepatitis Screen Latest Ref Rng & Units 07/02/2016 01/18/2021 HEPAIGM Negative - Negative HEPBCIGM Negative - Negative HEPCABEIA Negative Negative - HBSAGR Negative - Negative Antibodies Latest Ref Rng & Units 05/09/2022 CHALINO Negative Negative Urinalysis Latest Ref Rng & Units 06/15/2013 12/07/2021 PROTEIN, URINE Negative trace 1+(A) RBC, URINE 0-3 /HPF - 0-3 /HPF IMAGING Reviewed in [facility], notable for: No new imaging available for review ASSESSMENT Augustine Pena is a 67 year old White female with history of hypertension, hyperlipidemia, lung nodules, anxiety/depression, thoracic aortic aneurysm, thyroid goiter, OA, recurrent pancreatitis who presents to rheumatology telephone clinic for follow-up of PMR with transformation to GCA. At this time she is doing quite well on her weekly Actemra and prednisone taper, presumably she is on 10 mg we do not know as the medications are currently being managed by her nursing facility. We will touch base with nursing facility to be sure she is on 10 mg and get updated ESR, CRP anytime. If normal will recommend decreasing by prednisone 1 mg every 1 week until off with monthly ESR CRP is to be faxed to my office. Of note she will bring up her leg swelling with her cardiology visit in 2 weeks. She does have a physician monitoring her at her nursing facility every few weeks and was deemed low risk for blood clot. Instructed that if she gets any chest pain, shortness of breath, dizziness, severe pain with her legs that she should be evaluated AMPARO in the ER. 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 Continue Actemra weekly injection 2. ESR, CRP now and once a month, appreciate assistance with alf and obtaining them and faxing them to us 3. We will confirm current prednisone dosing with her alf and recommend taper based on results of new ESR, CRP 4. Continue Prolia per PCP, vitamin D 50,000 units once a week 5. Vaccine counseling: She would qualify for flu, COVID, pneumonia, shingles, Tdap, RSV, defer to PCP team 6. Follow-up 2 months virtual visit Orders this visit: No orders found for this visit on 05/02/23. Return in about 2 months (around 07/02/2023). I spent a total of 15 minutes on the date of the service on the phone with the patient which included completing clinical documentation and counseling and educating the patient/family/caregiver. This note was partially generated with the assistance of [employer] voice recognition software. An attempt was made to correct any dictation errors however there may be some incorrect words, spellings, and punctuation. Radha Willis MD Rheumatology Date: May 02, 2023 Time: 1:30 PM documented in this encounter [facility] 04-29-2023 Telephone encounter Note Patient called in stating that she is still in the alf and is unsure of when she will be released. She wanted her PCP to be aware Thank you! [facility] 04-29-2023 Miscellaneous Notes Patient called in stating that she is still in the alf and is unsure of when she will be released. She wanted her PCP to be aware Thank you! documented in this encounter [facility] 04-10-2023 Miscellaneous Notes Call placed to Krissy on secure work voice mail and message left as below. Niesha Beckwith RN Ok. Krissy with [facility] calls to see if provider will follow their HH orders for SN and PT following d/c from [facility] after rehab for reoccurring pancreatitis. Krissy requests verbal order be called to [phone]. Niesha Beckwith RN documented in this encounter [facility] 03-27-2023 Miscellaneous Notes Called patient. No answer. Left a message for patient to return the call. Lola Shay RN Please call patient and give her recommendations from my chart review note today. My [facility] team already faxed the note to the facility so they should have prednisone recs already. OK to reschedule if she wants to talk sooner rather than 1 month, otherwise my [facility] team is working on getting her rescheduled in 1 month Pt called letting us know she missed the appointment for today @ 11:00 am for a phone call visit. Pt is supposed to be taken off her prednisone medication, in the alf the nurse wants to continue this medication for the pt. Pt would like to receive a call back. Best # to reach pt: [phone] documented in this encounter [facility] 03-27-2023 History of Present illness Narrative Attempted to call patient 3 times during appointment slot. No answer each time, voicemail left each time. On review of chart, 03/26/2023: Creatinine 1.10, GFR 53 Otherwise unremarkable CMP CRP <2.9 ESR 7 Hemoglobin 10.7 No other absolute cytopenias Per discussion with nursing staff yesterday, patient was restarted on her Actemra and continued on 20 mg of prednisone with last day of antibiotics yesterday. RECOMMENDATIONS: 1. Decrease prednisone to 17.5 mg x 1 week, then 15 mg x 1 week, then 12.5 mg x 1 week, then 10 mg x 1 week 2. Repeat ESR, CRP when on 10 mg of prednisone 3. Continue weekly Actemra 4. Alert rheumatology immediately if she gets new signs or symptoms such as new or worsening headache, jaw pain, jaw claudication, visual changes, double vision, blackout vision, intermittent blindness. If gets any new visual symptoms such as intermittent blindness recommend ER evaluation right away 5. Recommend evaluation of anemia by PCP team 6. Follow-up rheumatology 1 month documented in this encounter [facility] 03-26-2023 Miscellaneous Notes Phone and spoke with Estefani GERMAIN. Estefani faxed over current lab results . Lab results scanned into chart for review. Cosetta L. Uqdah R.N. Phone and spoke with patient. Patient states that they just took her lab work. Spoke with patient nurse Estefani and they just jyoti lab this morning. Estefani stated that she will either have them drawn today or have them added to her lab work today. Estefani was given our fax number to fax results and was informed that patient is to be seen on tomorrow Saturday. Will need results to taper steroids at appointment. Will follow-up on labs. Ayden Kemp R.N. Thanks. These are from 03/06/2023. She will need repeat anytime to decide on steroid taper Received records of lab reports. Reports scanned into charts. Ayden Kemp R.NJarad Phone and spoke with Breana at the [facility] . Requested records from her facility on the ESR and CRP our fax number given to Breana ( nurse) at this time. Ayden Kemp R.NJarad Can you please attempt to get records from her facility? She was supposed to have ESR, CRP drawn prior to her appointment with me this Saturday. Thanks, will discuss with her during her phone appointment. Called and spoke to patient. Remains on ABT for UTI. Confirmed appointment. Brady Oneill RN Patient has been identified by name and date of : Yes . Patient calling for :patient update. Patient called stated she is still a [facility] Patient missed a dose of her Acterma last Saturday due to her having another UTI Pharmacy has been updated: Yes . Return call needed: Patient is expecting a call back. Can be reached at phone number listed below.. Patient can be reached at : [phone] documented in this encounter [facility] 02-25-2023 Discharge summary Note Date/Time February 24, 2023 4:44pm [facility] Medical Records Department [address] [place] [address] Emergency Department Summary 02/24/23 MR#: [id number] Acct: [id number] Name: AUGUSTINE PENA GOPAL Rep #:[id number] : 1955 67 From: Kyler Fox DO PCP: Dr. Mauro Krishnamurthy MD Status:ADM I N Location: [place] [address] HPI HPI - GI History of Present Illness Chief Complaint: Nausea/Vomiting/Diarrhea Narrative Narrative: 67-year-old female presenting with nausea, vomiting, abdominal pain. Apparentlyshe has a recurrent pancreatitis which is an issue. She has been referred to Dr. Massey as an outpatient but has not been able to make it because she returns to the ER with abdominal pain. Patient just released yesterday. She was admitted for placement because she states she could not take care of her herselfat home. At that point her lipase had been trending downward. She was a littlebit dehydrated. She states the pain is never really gone away. [facility] Medical History (Updated 02/24/23 @ 21:[address] Araceli Branham MD) Anemia Anxiety and depression Chronic pain Colon polyps Essential hypertension Former smoker GCA (giant cell arteritis) GERD (gastroesophageal reflux disease) Lung nodules Morbid obesity Morbid obesity Multiple thyroid nodules Osteoarthritis Osteoporosis Pancreatitis Poor dentition Pure hypercholesterolemia Thoracic aortic aneurysm without rupture Vision changes Home Medications calcium carbonate 600 mg-vitamin D3 10 mcg (400 unit) tablet 1 tab PO DAILY SUPPLEMENT 10/16/21 [History Last Taken 02/21/23] metoprolol succinate 25 mg tablet,extended release 24 hr 25 mg PO DAILY BLOOD PRESSURE #90 tabs 01/08/23 [Rx Last Taken 02/21/23] bupropion HCl 150 mg 24 hr tablet, extended release 150 mg PO DAILY DEPRESSION 02/04/23 [History Last Taken 02/21/23] ergocalciferol (vitamin D2) 1,250 mcg (50,000 unit) capsule 1,250 mcg PO TH 02/04/23 [History Last Taken 02/21/23] nystatin 100,000 unit/gram topical cream 1 applic topical BID PRN ANTIFUNGAL 02/04/23 [History Last Taken Unknown] sertraline 50 mg tablet 50 mg PO DAILY DEPRESSION 02/04/23 [History Last Taken 02/21/23] tocilizumab 162 mg/0.9 mL subcutaneous pen injector (Actemra ACTPen) 162 mg subcut TU RHEUMATOID ARTHRITIS 02/04/23 [History Last Taken 02/19/23] potassium chloride 20 mEq tablet,extended release 20 meq PO DAILY SUPPLEMENT 7 days #7 tabs 02/11/23 [Rx Last Taken 02/21/23] lisinopril 10 mg tablet 10 mg PO QHS BLOOD PRESSURE 02/22/23 [History Last Taken 02/21/23] lisinopril 10 mg tablet 20 mg PO DAILY BLOOD PRESSURE 02/22/23 [History Last Taken 02/21/23] prednisone 5 mg tablet See Taper PO DAILY STEROID 02/22/23 [History Last Taken 02/21/23] [id number]-[id number]-aqthbej 36,000-114,000-180,000 unit capsule,delay rel (Creon) 2 cap PO TID 30 days #180 caps 02/23/23 [Rx Last Taken Unknown] omeprazole 20 mg capsule,delayed release 40 mg (2 x 20 mg) PO DAILY ACID REFLUX 30 days #0 caps 02/23/23 [Rx Last Taken 02/21/23] Allergy/AdvReac Type Severity Reaction Status Date / Time No Known Allergies Allergy Verified 02/24/23 16:05 Family History Mother Colon cancer Father Cancer Lung Sister Breast cancer Brother Cancer Lung Surgical History History of carpal tunnel surgery History of cholecystectomy History of total hysterectomy Social History household members: none Smoking Status: Former smoker alcohol intake: never substance use type: does not use caffeine: Yes Type: coffee Number of servings: 2 ROS ROS ED Constitutional Constitutional ED: Denies chills or fever(s) ENT ENT ED: Denies rhinorrhea or sore throat Cardiovascular Cardiovascular: Denies chest pain or palpitations Respiratory/Chest Respiratory/Chest: Denies cough or dyspnea Gastrointestinal Gastrointestinal: Reports abdominal pain, nausea and vomiting Genitourinary Genitourinary ED: Denies dysuria or hematuria Musculoskeletal Musculoskeletal: Denies arthralgias or back pain Integumentary Denies abscess Neurologic Neurologic: Denies headache(s) Psychiatric Psychiatric: Denies anxiety or depression EXAM Physical Exam Const Vital Signs: 02/24/23 16:04 Temperature 97.8 F Temperature Source Temporal Pulse Rate 85 Respiratory Rate 18 Blood Pressure 151/82 H Blood Pressure Mean 105 Pulse Ox 96 Positive well nourished General Appearance ED: NAD HEENT Reports moist mucous membranes normocephalic Eyes PERRL and EOMs intact bilaterally Resp normal respiratory effort Auscultation: Negative for rales, rhonchi or wheezes Cardio regular rate and regular rhythm GI Palpation: tender LLQ Back/Spine no CVA tenderness Neuro CN's II-XII intact bilaterally Sensorium / Orientation: alert Motor Exam: strength 5/5 throughout Psych mental status grossly normal Skin no wounds MDM MDM MDM Narrative Medical decision making narrative: Patient with recurrent pancreatitis. She is presenting with abdominal pain, nausea, vomiting. She was recently admitted for placement. The patient states that she thought she was going to be okay when she went home for the first day was okay and now she says the pain and nausea vomiting is back. She has not hada fever. She denies chest pain differential includes pancreatitis, colitis, diverticulitis, gastritis. CBC to assess white blood cell count, hemoglobin, platelet. BMP to assess renal function, electrolytes. Liver panel to assess for elevated liver enzymes. Lipase to assess for pancreatitis. Patient given aliter normal saline. Discussed with Dr. Massey who recommended a pancreas debility CT. This was ordered. Creatinine is slightly elevated again today at 1.37. White count is normal. Hemoglobin hematocrit are stable. Patient given IV fluids. It is noted that her LFTs are slightly elevated again today. Dr. Massey had been order lactate dehydrogenase, ESR, CRP. ESR and CRP are unremarkable however the lactate etiology needs is 49. EtOH was negative. High-sensitivity troponin was negative. EKG on my interpretation was normal sinus rhythm with ventricular to 66 bpm without sign of ischemic change or ectopy. Patient was discussed with the hospitalist for admission. CT scan is pending on admission. Impression: 1. Dehydration 2. Acute on chronic pancreatitis 3. Nausea/vomiting Lab Data Labs: Laboratory Results - last 24 hr 02/24/23 02/24/23 02/24/23 16:15 16:55 18:20 WBC 6.9 RBC 4.25 Hgb 12.0 Hct 38.0 MCV 89.4 MCH 28.2 MCHC 31.6 L RDW Std Deviation 46.1 H RDW Coeff of Janey 14.5 Plt Count 210 MPV 9.2 Immature Gran % (Auto) 2.600 H Neut % (Auto) 58.7 Lymph % (Auto) 26.8 [place] % (Auto) 10.4 H Eos % (Auto) 0.9 Baso % (Auto) 0.6 Absolute Neuts (auto) 4.1 Absolute Lymphs (auto) 1.86 Nucleated RBC % 0 ESR Sodium 140 Potassium 3.6 Chloride 106 Carbon Dioxide 25.0 Anion Gap 9 BUN 21 H Creatinine 1.37 H Estim Creat Clear Calc 30.07 Est GFR (MDRD) Af Amer 49 L Est GFR (MDRD) Non-Af 41 L BUN/Creatinine Ratio 15.3 Glucose 80 Calcium 8.7 Phosphorus 1.4 L Magnesium 1.7 Total Bilirubin 1.80 H Direct Bilirubin 0.35 H AST 64 H ALT 63 H Alkaline Phosphatase 60 Lactate Dehydrogenase Troponin I High Sens 27 C-React Prot Ext Range Total Protein 6.4 Albumin 3.8 Globulin 2.6 Lipase 174 H Ethyl Alcohol 02/24/23 20:20 WBC RBC Hgb Hct MCV MCH MCHC RDW Std Deviation RDW Coeff of Janey Plt Count MPV Immature Gran % (Auto) Neut % (Auto) Lymph % (Auto) [place] % (Auto) Eos % (Auto) Baso % (Auto) Absolute Neuts (auto) Absolute Lymphs (auto) Nucleated RBC % ESR 2 Sodium Potassium Chloride Carbon Dioxide Anion Gap BUN Creatinine Estim Creat Clear Calc Est GFR (MDRD) Af Amer Est GFR (MDRD) Non-Af BUN/Creatinine Ratio Glucose Calcium Phosphorus Magnesium Total Bilirubin Direct Bilirubin AST ALT Alkaline Phosphatase Lactate Dehydrogenase 489 H Troponin I High Sens C-React Prot Ext Range < 2.90 Total Protein Albumin Globulin Lipase Ethyl Alcohol < 3.0 Discharge Plan Triage Chief Complaint: Nausea/Vomiting/Diarrhea ED Provider: Kyler Fox Dx/Rx/DC Orders Primary Care Provider: Mauro Krishnamurthy What to do if you have Problems For any increased pain, shortness of breath, bleeding, nausea or vomiting, chestpain, or any unexpected problems, contact your Primary Care Provider. Call [facility] ([phone]) or report to the closest Emergency Room. Call 911 if necessary. 02/24/232222 <Electronically signed by Kyler Fox DO> Cosigner Signature (if applicable): CC: Dr. Mauro Krishnamurthy MD ~ Signed [facility] Work Phone: [phone]) 914-163807-16-2023 History and physical note Author Araceli Branham [facility] February 24, 2023 11:29pm Note Date/Time February 24, 2023 8:11 pm [facility] Medical Records Department [address] [place] [id number] H&P Exam - Hospitalist 02/24/232009 MR#: [id number] Acct: [id number] Name: AUGUSTINE PENA GOPAL Rep #:[id number] : 1955 67 From: Araceli Branham MD PCP: Dr. Mauro Krishnamurthy MD Status:ADM I N [id number] - General General Date of Admission: 02/24/23 Date of Service: 02/24/23 Chief Complaint: Recurrent N/V, abdominal pain. HPI Narrative The patient is a 67 y/o F w/ PMHx: Morbid obesity, Anxiety and Depression, Chronic pain syndrome, Chronic anemia, Former tobacco use, HTN, HLD, , Thoracic AAA, Known Lung nodules, Hx Giant cell arteritis, recent discharge 02/23/2023 with acute on chronic recurrent abdominal pain secondary to chronic pancreatitisdischarged on Creon with reportedly initially diarrhea however she had no bowel movements during presentation with JUDE felt secondary to noted GI losses who nowre[facility] ED on 02/24/23 with history of recurrent nausea, emesis and abdominal pain primarily epigastric in location with inability to maintain appropriate hydration reporting that her pain and never really completely resolved but it certainly worsened since she discharged to home prompting ED return. States again she had recurrent loose stools for approximately 4-5 and to even have 1 again in the ED as when she was here recently she reported diarrhea but then had no diarrheal episodes during admission. She describes herabdominal pain as cramping and occasionally sharp, more so in the epigastric region rated 4-5 out of 10 in severity waxing and waning. She states she is felt weak and lightheaded because of her GI losses and dehydration and unable tosafely care for self at home. Work-up in the ED included T97.8, heart rate 85, BP 151/82, respiratory rate 18, 96% on room air, CBC with WC 6.9, hemoglobin 12,platelet 210 with increased immature granulocytes, CMP with BUN/creatinine 21/1.37, T. bili 1.80, D bili 0.35, AST/ALT 64/63, troponin 27, lipase 174, CT abdomen pelvis with and without contrast pending upon requested evaluation of patient. In the ED patient administered IV zofran and IV morphine. ED discussed case with Gastroenterology Dr. Massey. [facility] Medical History (Updated 02/24/23 @ 21:[address] Araceli Branham MD) Anemia Anxiety and depression Chronic pain Colon polyps Essential hypertension Former smoker GCA (giant cell arteritis) GERD (gastroesophageal reflux disease) Lung nodules Morbid obesity Morbid obesity Multiple thyroid nodules Osteoarthritis Osteoporosis Pancreatitis Poor dentition Pure hypercholesterolemia Thoracic aortic aneurysm without rupture Vision changes Home Medications calcium carbonate 600 mg-vitamin D3 10 mcg (400 unit) tablet 1 tab PO DAILY SUPPLEMENT 10/16/21 [History Last Taken 02/21/23] metoprolol succinate 25 mg tablet,extended release 24 hr 25 mg PO DAILY BLOOD PRESSURE #90 tabs 01/08/23 [Rx Last Taken 02/21/23] bupropion HCl 150 mg 24 hr tablet, extended release 150 mg PO DAILY DEPRESSION 02/04/23 [History Last Taken 02/21/23] ergocalciferol (vitamin D2) 1,250 mcg (50,000 unit) capsule 1,250 mcg PO TH 02/04/23 [History Last Taken 02/21/23] nystatin 100,000 unit/gram topical cream 1 applic topical BID PRN ANTIFUNGAL 02/04/23 [History Last Taken Unknown] sertraline 50 mg tablet 50 mg PO DAILY DEPRESSION 02/04/23 [History Last Taken 02/21/23] tocilizumab 162 mg/0.9 mL subcutaneous pen injector (Actemra ACTPen) 162 mg subcut TU RHEUMATOID ARTHRITIS 02/04/23 [History Last Taken 02/19/23] potassium chloride 20 mEq tablet,extended release 20 meq PO DAILY SUPPLEMENT 7 days #7 tabs 02/11/23 [Rx Last Taken 02/21/23] lisinopril 10 mg tablet 10 mg PO QHS BLOOD PRESSURE 02/22/23 [History Last Taken 02/21/23] lisinopril 10 mg tablet 20 mg PO DAILY BLOOD PRESSURE 02/22/23 [History Last Taken 02/21/23] prednisone 5 mg tablet See Taper PO DAILY STEROID 02/22/23 [History Last Taken 02/21/23] [id number]-tmceuaoh-mwvisey 36,000-114,000-180,000 unit capsule,delay rel (Creon) 2 cap PO TID 30 days #180 caps 02/23/23 [Rx Last Taken Unknown] omeprazole 20 mg capsule,delayed release 40 mg (2 x 20 mg) PO DAILY ACID REFLUX 30 days #0 caps 02/23/23 [Rx Last Taken 02/21/23] Allergy/AdvReac Type Severity Reaction Status Date / Time No Known Allergies Allergy Verified 02/24/23 16:05 Family History Mother Colon cancer Father Cancer Lung Sister Breast cancer Brother Cancer Lung Surgical History History of carpal tunnel surgery History of cholecystectomy History of total hysterectomy Social History household members: none Smoking Status: Former smoker alcohol intake: never substance use type: does not use caffeine: Yes Type: coffee Number of servings: 2 ROS ROS Narrative Admission Review of Systems: CONSTITUTIONAL: No weight loss, fever, chills, + weakness or fatigue. HEENT: Eyes: No visual loss, blurred vision, double vision or yellow sclerae. Ears, Nose, Throat: No hearing loss, sneezing, congestion, runny nose or sore throat. SKIN: No rash or itching, lesions, wounds. CARDIOVASCULAR:+ Lightheadedness, dizziness. No chest pain, chest pressure or chest discomfort, palpitations, edema, orthopnea, syncopal events. RESPIRATORY: No shortness of breath, cough or sputum, wheezing, hemoptysis. GASTROINTESTINAL: + anorexia, nausea, vomiting, diarrhea, abdominal pain. No melena, BRBPR. GENITOURINARY: No dysuria, frequency, urgency or retention. NEUROLOGICAL: + Lightheadedness, dizziness. No headache, paralysis, ataxia, numbness or tingling in the extremities, focal weakness, change in bowel or bladder control, seizure. MUSCULOSKELETAL: + muscle, back pain, joint pain or stiffness. HEMATOLOGIC: + anemia, bleeding or bruising. LYMPHATICS: No enlarged nodes. No history of splenectomy. PSYCHIATRIC: + history of depression or anxiety. ENDOCRINOLOGIC: No reports of sweating, cold or heat intolerance. No polyuria orpolydipsia. ALLERGIES: No history of asthma, hives, eczema or rhinitis. Vital Signs Vital Signs Vital Signs: 02/24/23 16:04 Temperature 97.8 F Temperature Source Temporal Pulse Rate 85 Respiratory Rate 18 Blood Pressure 151/82 H Blood Pressure Mean 105 Pulse Ox 96 Weight Weight: 242 lb 15.19 oz Body Mass Index (BMI) 45.8 Physical Exam Narrative Physical Examination: General: Awake, alert, oriented x 3 and cooperative, seated upright in the ED bed, fatigued and ill-appearing. Skin: Normal color, normal turgor, no icterus, no cyanosis except for very staged ecchymoses likely with recent IV access and lab draws. HEENT: AT/NC, EOMI, PERRLA, dry MM, no carotid bruits or JVD noted; however, thickened neck makes evaluation difficult. Lungs: Distant, diminished, greater bases, appropriate effort, no rales, ronchi or wheezing. Heart: Regular rate and rhythm; no gallop, rub audible. Abdomen: Soft, morbidly obese, mild epigastric tenderness but no rebound or guarding no any specific right upper quadrant pain, difficult to assess distention and HSM secondary to morbidly obese habitus, hyperactive bowel sounds. Extremities: No cyanosis, clubbing, or edema. Neurological: Patient awake, alert, oriented as noted, cognitive function intact; pupils equally reactive to light and accommodation, cranial nerves II-XII grossly normal, moving all 4 extremities, no focal deficits, strength moderatelyto severely global decrease secondary to acute presentation complaints. Psychiatric: Affect appears flat, fatigued, ill-appearing, no acute evidence of depressive or anxiety feelings. Results Lab / Micro Data 02/24/23 16:55 02/24/23 16:15 Labs: Laboratory Results - last 24 hr 02/24/23 16:15: Sodium 140, Potassium 3.6, Chloride 106, Carbon Dioxide 25.0, Anion Gap 9, BUN 21 H, Creatinine 1.37 H, Estim Creat Clear Calc 30.07, Est GFR (MDRD) Af Amer 49 L, Est GFR (MDRD) Non-Af 41 L, BUN/Creatinine Ratio 15.3, Glucose 80, Calcium 8.7, Total Bilirubin 1.80 H, Direct Bilirubin 0.35 H, AST 64H, ALT 63 H, Alkaline Phosphatase 60, Total Protein 6.4, Albumin 3.8, Globulin 2.6, Lipase 174 H 02/24/23 16:55: WBC 6.9, RBC 4.25, Hgb 12.0, Hct 38.0, MCV 89.4, MCH 28.2, MCHC 31.6 L, RDW Std Deviation 46.1 H, RDW Coeff of Janey 14.5, Plt Count 210, MPV 9.2,Immature Gran % (Auto) 2.600 H, Neut % (Auto) 58.7, Lymph % (Auto) 26.8, [place] % (Auto) 10.4 H, Eos % (Auto) 0.9, Baso % (Auto) 0.6, Absolute Neuts (auto) 4.1, Absolute Lymphs (auto) 1.86, Nucleated RBC % 0 02/24/23 18:20: Troponin I High Sens 27 Assessment & Plan Assessment/Plan (1) Acute recurrent pancreatitis: PLAN: Plan The patient is a 67 y/o F w/ PMHx: Morbid obesity, Anxiety and Depression, Chronic pain syndrome, Chronic anemia, Former tobacco use, HTN, HLD, , Thoracic AAA, Known Lung nodules, Hx Giant cell arteritis, recent discharge 02/23/2023 with acute on chronic recurrent abdominal pain secondary to chronic pancreatitisdischarged on Creon with reportedly initially diarrhea however she had no bowel movements during presentation with JUDE felt secondary to noted GI losses who nowre-[facility] the [facility] ED on 02/24/23 with history of recurrent nausea, emesis and abdominal pain primarily epigastric in location with inability to maintain appropriate hydration reporting that her pain and never really completely resolved but it certainly worsened since she discharged to home prompting ED return. #1. Recurrent abdominal pain suspected secondary to again acute on chronic pancreatitis with mild hyperbilirubinemia and transaminitis, Possible Pancreaticdivisum versus possible gastritis/GI/duodenal ulceration: Recent presentation over the last several weeks with 02/04/2023 MRCP with no biliary dilatation or choledocholithiasis with postcholecystectomy changes with at that time mild peripancreatic fatty edema consistent with pancreatitis, follow-up recent admission 02/22/2023 CT abdomen pelvis with punctate calcifications throughout the pancreas suggesting chronic pancreatitis with no acute abnormality seen otherwise with evidence of status postcholecystectomy and hysterectomy status, will admit to medical surgical floor, maintain on judicious IV fluids, transition to IV PPI, will continue with consultation with gastroenterology, will allow clears if tolerated until midnight then n.p.o. status pending GI evaluation, maintain on Creon, as needed antiemetic and pain regimen. Per gastroenterology LDH, protein electrophoresis, ESR, CRP and alcohol levels requested. Possible plan for ERCP pending imaging results pending upon requestedED evaluation. #2. Acute kidney injury: Secondary to GI losses. Admission BUN/Cr 21/1.37, prior baseline creatinine noted to be primarily 0.5-0.8 to maximum. Will hydrate, hold nephrotoxic medications and repeat chemistry in AM. If no improvement would plan FeNa assessment. #3. Hypertension: Continue home regimen including metoprolol, temporally holding home lisinopril regimen given JUDE, PRN hydralazine. #4. Hyperlipidemia: We will defer any statin consideration especially given transaminitis and hyperbilirubinemia. #5. Anxiety and depression: We will continue patient on sertraline as well as bupropion regimen with close renal function monitoring and hold as needed. #6. Giant cell arteritis, history of: Given presentation concerns we will cautiously continue prednisone but do believe the patient may benefit from an upper endoscopy as certainly some type of ulcer or gastritis could be contributing to her presentation as well therefore may need to decide to hold this if absolutely necessary. Certainly would be best to attempt to decrease this dosing further. #7. Morbid Obesity: Weight loss and lifestyle changes encouraged. #8. Former tobacco use: Encourage continued tobacco cessation. #9. Known thoracic AAA: Recent chest CTA 12/12/2022 with noted ectasia of the ascending aorta 3.9 cm in diameter stable from previous imaging, encourage continued outpatient follow-up. #10. GERD: We will maintain on IV PPI. #11. DVT prophylaxis: SCDs, given recurrent ongoing persistent abdominal pain will hold on chemoprophylaxis as possible ERCP planned per GI. #12. CODE STATUS: Full code. Charges/Coding Visit Charges Inpatient E&M: 83216 Init Hosp L3 02/24/232154 <Electronically signed by Araceli Branham MD> Cosigner Signature (if applicable): CC: Dr. Araceli Branham MD; Dr. Mauro Krishnamurthy MD~ Signed ADDENDUM by Dr. Araceli Branham MD on 02/24/[address] A/P resulted with uncomplicated acute interstitial appendicitis. Discussed with ED physician and will add zosyn. Also, he is contacting general surgery airport control operator Dr. Lopez. 02/24/232316<Electronically signed by Araceli Branham MD> Cosigner Signature (if applicable): cc: Dr. Araceli Branham MD; Dr. Mauro Krishnamurthy MD ~* Signed ADDENDUM by Dr. Araceli Branham MD on 02/24/23 at 2329 Addendum Currently attempting to have a correction made on the CT A/P as further review notes in the description body specifically stranding about the pancreas concerning for pancreatitis and in the body specifically unremarkable appendix but has the incorrect impression to match the former description. Discussed withED physician and he noted he would make request to have the radiology place an over-read for correction. Will defer consultation with surgery or abx therapy atthis time until assure correct formal read obtained and no evidence of acute appendicitis. 02/24/232328<Electronically signed by Araceli Branham MD> Cosigner Signature (if applicable): cc: Dr. Araceli Branham MD; Dr. Mauro Krishnamurthy MD ~* Signed [facility] Work Phone: 1(598) 362-910307-15-2023 Discharge summary Author Wilbur Wolff [facility] February 23, 2023 3:04pm Note Date/Time February 23, 2023 2:59 pm [facility] Medical Records Department [address] [place] [address] Discharge Summary 02/23/23 1457 MR#: [id number] Acct: [id number] Name: AUGUSTINE PENA GOPAL Rep #:[id number] : 1955 67 From: Wilbur Garcia PCP: Dr. Mauro Krishnamurthy MD Status:ADM I N Location: [place] [address] Providers Date of Admission: 02/22/23 Date of Discharge: 02/23/23 Primary Care Physician: Dr. Mauro Krishnamurthy MD Reason For Visit: ABDOMINAL PAIN Diagnosis Discharge Diagnosis (1) Acute recurrent pancreatitis: Status: Acute Code(s): K85.90 - Acute pancreatitis without necrosis or infection, unspecified Plan Has gottenThis 67-year-old female came to ED for severe abdominal pain almost 1 week along with nausea vomiting and diarrhea for 3 days 1. Acute on recurrent abdominal pain most likely due to acute on chronic pancreatitis: Patient is being admitted on MedSur floor. IV fluid Ringer lactate. Mild hypokalemia and potassium replacement ordered. Keep patient n.p.o. Lipase mildly elevated 172. 7/15: Patient abdominal pain much better but he still feels discomfort over leftupper quadrant due to chronic pancreatitis. Patient did not had bowel movement after admission therefore C. difficile unlikely. No fever. Patient is discharged on Creon and follow with GI Dr. Friend 2. Acute diarrhea, exact reason unclear:CT abdomen reviewed and shows scatteredcolonic diverticula but no diverticulitis. C. difficile test was ordered. There was suspicion of Clostridium difficile infection because she had antibiotic during recent admission for E. coli UTI but patient did not had bowelmovement after admission therefore C. difficile colitis unlikely. 3. JUDE most likely due to diarrhea/prerenal: Creatinine 0.7 baseline. Creatinine 1.2 on admission. Patient also had JUDE during previous admission. At that time creatinine was 1.88 on 02/04/2023 which returned to normal. IV fluid resuscitation. Hold lisinopril 02/23: JUDE resolved. Resume lisinopril 10 mg daily. Gradually uptitrate. Patient was on 30 mg lisinopril daily. 4. Hypertension: Blood pressure is elevated. IV hydralazine for SBP more than 180 mmHg. Oral antihypertensive n.p.o. is allowed. 5. Chronic degenerative arthritis mainly knee arthritis, decreased ADL with with limited mobility and anxiety/depression: PT and OT ordered. Patient also looks mildly depressed. Home medication reconciliation done 6. Hx GCA -Continue prednisone as per taper DVT: Lovenox 40 mg subcu daily. Discharge plan discussed with the patient and case liner. Patient agreeable for going home and resumption of home health with home physical therapy. Patient was admitted as inpatient and expected to stay 2 midnight but had rapid recovery, sooner than expected in context of improvement of abdominal pain and resolution of diarrhea. She has chronic pancreatitis was discharged on Creon and follow-up with GI. Discharge medication reconciliation done. Discharge follow-up instructions completed. Discharge process discussed with the patient and all questions wereanswered to patient's satisfaction. Total time spent, exact 35 minutes on discharge meds reconciliation, examination, coordination of care with nurses and ancillary staff, review of imaging and blood test and discussion with the patient on follow-up instructions. Living will/advanced directive/end of life care: Patient does not have living will or advanced directive. After discussion of benefits/risks procedures involved with full code, DNR CC arrest and DNR CC, the patient Was indecisive even after thinking a lot. She looked depressed from her quality of life. I suggested if she is unsure, she can be full code until further decision is made. She agreed with that Patient does want artificial life support including intubation, tube feed, ventilator and/chest compression, central venous catheter, vasopressor and DC shock if needed Medications at Discharge Home Medications calcium carbonate 600 mg-vitamin D3 10 mcg (400 unit) tablet 1 tab PO DAILY SUPPLEMENT 10/16/21 metoprolol succinate 25 mg tablet,extended release 24 hr 25 mg PO DAILY BLOOD PRESSURE #90 tabs 01/08/23 bupropion HCl 150 mg 24 hr tablet, extended release 150 mg PO DAILY DEPRESSION 02/04/23 ergocalciferol (vitamin D2) 1,250 mcg (50,000 unit) capsule 1,250 mcg PO TH 02/04/23 nystatin 100,000 unit/gram topical cream 1 applic topical BID PRN ANTIFUNGAL 02/04/23 sertraline 50 mg tablet 50 mg PO DAILY DEPRESSION 02/04/23 tocilizumab 162 mg/0.9 mL subcutaneous pen injector (Actemra ACTPen) 162 mg subcut TU RHEUMATOID ARTHRITIS 02/04/23 potassium chloride 20 mEq tablet,extended release 20 meq PO DAILY SUPPLEMENT 7 days #7 tabs 02/11/23 lisinopril 10 mg tablet 10 mg PO QHS BLOOD PRESSURE 02/22/23 lisinopril 10 mg tablet 20 mg PO DAILY BLOOD PRESSURE 02/22/23 prednisone 5 mg tablet See Taper PO DAILY STEROID 02/22/23 [id number] 36,000-114,000-180,000 unit capsule,delay rel (Creon) 2 cap PO TID 30 days #180 caps 02/23/23 omeprazole 20 mg capsule,delayed release 40 mg (2 x 20 mg) PO DAILY ACID REFLUX 30 days #0 caps 02/23/23 Physical Exam Narrative General: Alert, Oriented x3, Cooperative, morbid obese BMI 46.7 kg/m?. HEENT: Atraumatic, PERRLA, EOMI, Normocephalic Oral: Oral mucosa dry. No Gingival or Mucosal Lesions/ Ulcerations Neck: Supple, No JVD, Negative Carotid Bruits Lungs: Air entry diminished in bilateral lung bases. No crepitation/rhonchi Cardiovascular: Regular rate, Regular Rhythm, Normal S1, Normal S2, No murmurs Abdomen: Mild tenderness present over left upper quadrant consistent with chronic pancreatitis bowel Sounds Present, Soft, Non-Distended : Denies acute dysuria or acute UTI symptoms. No renal angle tenderness. No suprapubic tenderness. Extremities: Mild bilateral nonpitting edema, Capillary Refill Less than 3 Seconds Skin: No rashes, No breakdown Musculoskeletal/spine: Tenderness present on the left paraspinal muscles. Bilateral knee arthritis right worse than left. Disequilibrium Neurological: Cranial nerves II-XII grossly intact, DTR 2+/4 and Symmetrical, Neuro grossly intact Psych/Mental Status: Flat affect. Weight / BMI Weight Weight: 237 lb 10.533 oz Body Mass Index (BMI) 44.9 ABG / Lab / Microbiology Data 02/23/23 06:14 02/23/23 06:14 Laboratory: Laboratory Results - last 24 hr 02/22/23 12:10: Phosphorus 1.9 L, Magnesium 1.9 02/23/23 06:14: WBC 3.3 L, RBC 3.93 L, Hgb 11.0 L, Hct 35.4 L, MCV 90.1, MCH 28.0, MCHC 31.1 L, RDW Std Deviation 45.5 H, RDW Coeff of Janey 14.2, Plt Count 195, MPV 9.0, Immature Gran % (Auto) 2.400 H, Neut % (Auto) 83.4 H, Lymph % (Auto) 11.2 L, [place] % (Auto) 3.0, Eos % (Auto) 0.0, Baso % (Auto) 0.0, Absolute Neuts (auto) 2.8, Absolute Lymphs (auto) 0.37 L, Nucleated RBC % 0, Diff Path Review December, Platelet Estimate ADEQUATE, RBC Morphology NORM C+C, Sodium 141, Potassium 4.5, Chloride 109 H, Carbon Dioxide 25.0, Anion Gap 7, BUN 21 H, Creatinine 0.80, Estim Creat Clear Calc 51.49, Est GFR (MDRD) Af Amer 92, Est GFR (MDRD) Non-Af 76, BUN/Creatinine Ratio 26.2 H, Glucose 114 H, Calcium 7.9 L Microbiology: Microbiology 02/22/23 13:58 Urine, Clean Catch Urine Culture - Preliminary Mixed Gram Positive Organisms D/C Instructions Discharge Diet: Low fat / Low cholesterol and 2000 mg Sodium Diet Weight Bearing Status: Weight bearing as tolerated Call your doctor if you observe: Fever of 101 or Higher, Coldness, Increased Pain, Numbness or Tingling, Change in Color, Inability to urinate, Inability to have a bowel movement, Using more than 1 pad per hour, Shortness of breath, Dizziness, Fainting spells, Swelling in the ankles, Chest pain, Prolonged hiccupping, Increased palpitations (irregular heartbeat) and Calf discomfort When: IN 2 WEEKS Meaningful Use Info Meaningful Use Diagnoses (Choose all that apply): None applicable Discharge Plan Admission Admit Date/Time: 02/22/23 16:50 Primary Reason for Your Visit: Chronic Pancreatitis Attending Provider: Wilbur Wolff Primary Care Provider: Mauro Krishnamurthy Discharge Orders/Prescriptions Prescriptions: New Creon 36,000-114,000- 180,000 unit capsule,delayed release(DR/EC) 2 cap PO TID 30 Days Qty: 180 2RF Rx Instructions: administer with meals and/or snacks Continued calcium carbonate-vitamin D3 600 mg-10 mcg (400 unit) tablet 1 tab PO DAILY sertraline 50 mg tablet 50 mg PO DAILY bupropion HCl 150 mg tablet extended release 24 hr 150 mg PO DAILY Actemra ACTPen 162 mg/0.9 mL pen injector 162 mg SUBCUT Patient Comments: PT STATES THEY HAD THEIR FIRST INJECTION THIS PREVIOUS SATURDAY (02-19-23) nystatin 100,000 unit/gram Cream 1 applic TOPICAL BID PRN (Reason: ANTIFUNGAL) ergocalciferol (vitamin D2) 1,250 mcg (50,000 unit) Capsule 1,250 mcg PO TH potassium chloride 20 mEq tablet extended release 20 meq PO DAILY 7 Days Qty: 7 0RF prednisone 5 mg tablet See Taper PO DAILY Taper: Prednisone Taper 40 mg DAILY for 7 Days 35 mg DAILY for 7 Days 30 mg DAILY for 7 Days 25 mg DAILY for 7 Days 20 mg DAILY for 7 Days Rx Instructions: PT IS ON DAY 5 OF THIS TAPERED PREDNISONE PRESCRIPTION. THE PT STILL NEEDS TOTAKE THEIR DOSE FOR DAY 5 lisinopril 10 mg Tablet 10 mg PO QHS Patient Comments: PER RX INSTRUCTIONS, TAKE TWO TABLETS (20MG) BY MOUTH ONCE DAILY IN THE MORNING AND ONE TABLET (10MG) AT BEDTIME metoprolol succinate 25 mg tablet extended release 24 hr 25 mg PO DAILY Qty: 90 3RF Changed omeprazole 20 MG capsule 40 mg PO DAILY 30 Days Qty: 0 0RF Held lisinopril 10 mg tablet 20 mg PO DAILY Hold Instructions: Hold it Patient Comments: PER RX INSTRUCTIONS, TAKE TWO TABLETS (20MG) BY MOUTH ONCE DAILY IN THE MORNING AND ONE TABLET (10MG) AT BEDTIME Referrals / Follow Up: Milan Massey DO [Med Staff - Active Staff] - Within 1 Month ( For chronic pancreatitis) Mauro Krishnamurthy MD [Primary Care Provider] - Disposition Disposition (needs filled in before D/C Order can be placed): Home Health Service Charges/Coding Visit Charges Inpatient E&M: 08659 Disch Hosp >30min 02/23/23 1504 <Electronically signed by Wilbur Wolff MD> Cosigner Signature (if applicable): CC: Dr. Wilbur Wolff MD; Dr. Mauro Krishnamurthy MD~ Signed [facility] Work Phone: [phone]) 648-234907-15-2023 Discharge summary Author Wilbur Wolff [facility] February 23, 2023 2:56pm Note Date/Time February 23, 2023 12:3 3pm [facility] Medical Records Department [address] [place] [address] Instructions for Home/Discharge Instructions 02/23/23 1231 MR#: [id number] Acct: [id number] Name: AUGUSTINE PENA GOPAL Rep #:[id number] : 1955 67 From: Wilbur Garcia PCP: Dr. Mauro Krishnamurthy MD Status:ADM I N Discharge Instructions Diet Discharge Diet: Low fat / Low cholesterol and 2000 mg Sodium Diet Activity Discharge Activity: Return to Normal Activity Weight Bearing Status: Weight bearing as tolerated Dressing / Incision Call your doctor if you observe: Fever of 101 or Higher, Coldness, Increased Pain, Numbness or Tingling, Change in Color, Inability to urinate, Inability to have a bowel movement, Using more than 1 pad per hour, Shortness of breath, Dizziness, Fainting spells, Swelling in the ankles, Chest pain, Prolonged hiccupping, Increased palpitations (irregular heartbeat) and Calf discomfort Follow Up Care When: IN 2 WEEKS Test Results: Test results from this visit will be discussed in further detail at your follow- up appointment, if applicable. Discharge Plan Admission Admit Date/Time: 02/22/23 16:50 Primary Reason for Your Visit: Chronic Pancreatitis Attending Provider: Wilbur Wolff Primary Care Provider: Mauro Krishnamurthy Discharge Orders/Prescriptions Prescriptions: New Creon 36,000-114,000- 180,000 unit capsule,delayed release(DR/EC) 2 cap PO TID 30 Days Qty: 180 2RF Rx Instructions: administer with meals and/or snacks Continued calcium carbonate-vitamin D3 600 mg-10 mcg (400 unit) tablet 1 tab PO DAILY sertraline 50 mg tablet 50 mg PO DAILY bupropion HCl 150 mg tablet extended release 24 hr 150 mg PO DAILY Actemra ACTPen 162 mg/0.9 mL pen injector 162 mg SUBCUT TU Patient Comments: PT STATES THEY HAD THEIR FIRST INJECTION THIS PREVIOUS SATURDAY (02-19-23) nystatin 100,000 unit/gram Cream 1 applic TOPICAL BID PRN (Reason: ANTIFUNGAL) ergocalciferol (vitamin D2) 1,250 mcg (50,000 unit) Capsule 1,250 mcg PO TH potassium chloride 20 mEq tablet extended release 20 meq PO DAILY 7 Days Qty: 7 0RF prednisone 5 mg tablet See Taper PO DAILY Taper: Prednisone Taper 40 mg DAILY for 7 Days 35 mg DAILY for 7 Days 30 mg DAILY for 7 Days 25 mg DAILY for 7 Days 20 mg DAILY for 7 Days Rx Instructions: PT IS ON DAY 5 OF THIS TAPERED PREDNISONE PRESCRIPTION. THE PT STILL NEEDS TOTAKE THEIR DOSE FOR DAY 5 lisinopril 10 mg Tablet 10 mg PO QHS Patient Comments: PER RX INSTRUCTIONS, TAKE TWO TABLETS (20MG) BY MOUTH ONCE DAILY IN THE MORNING AND ONE TABLET (10MG) AT BEDTIME metoprolol succinate 25 mg tablet extended release 24 hr 25 mg PO DAILY Qty: 90 3RF Changed omeprazole 20 MG capsule 40 mg PO DAILY 30 Days Qty: 0 0RF Held lisinopril 10 mg tablet 20 mg PO DAILY Hold Instructions: Hold it Patient Comments: PER RX INSTRUCTIONS, TAKE TWO TABLETS (20MG) BY MOUTH ONCE DAILY IN THE MORNING AND ONE TABLET (10MG) AT BEDTIME Referrals / Follow Up: Milan Massey DO [Med Staff - Active Staff] - Within 1 Month ( For chronic pancreatitis) Mauro Krishnamurthy MD [Primary Care Provider] - Disposition Disposition (needs filled in before D/C Order can be placed): Home Health Service 02/23/23 9706<Electronically signed by Wilbur Wolff MD>Wilbur Wolff MD CC: Dr. Mauro Krishnamurthy MD ~ Signed [facility] Work Phone: [phone]) [phone] History and physical note Author Wilbur Wolff [facility] February 22, 2023 5:25pm Note Date/Time February 22, 2023 4:50 pm [facility] Medical Records Department [address] [place] [address] [place] [address] H&P Exam - Hospitalist 02/22/23 1658 MR#: [id number] Acct: [id number] Name: AUGUSTINE PENA Rep #:[id number] : 1955 67 From: Wilbur Garcia PCP: Dr. Mauro Krishnamurthy MD Status:ADM I N [place] [facility] [place] [id number] HPI - General General Date of Admission: 02/22/23 Date of Service: 02/22/23 Chief Complaint: Nausea vomiting and abdominal pain mainly upper quadrants HPI Narrative AUGUSTINE PENA, is a 67 F with history of chronic pancreatitis and recent admission between 02/04/2023 to 02/11/2023 came to ER for upper quadrant abdominal pain mainly left upper quadrant that is started about 02/16/2023. She denies abdominalpain in lower quadrants. Abdominal pain is mainly left upper quadrant is goes to back. She has chronic abdominal pain from pancreatitis but got worse since 02/16/2023. She also has nausea vomiting and diarrhea that is started on 02/19/2023. No fever or chills. She was recently treated with antibiotic ceftriaxone for 7 days during hospital course for E. coli UTI. It is also morbidly obese and arthritis of right knee, difficult ambulation and not able to take care of herself. Vitals in the ED shows BP 186/87. Heart rate normal. No hypoxia or tachypnea. Labs reviewed. She had CT abdomen which shows punctate calcifications throughout the pancreas suggestive of chronic pancreatitis. No acute abnormality seen. Status post cholecystectomy and hysterectomy. [facility] Medical History (Updated 02/22/23 @ 17:[address] Wilbur Wolff MD) Acute recurrent pancreatitis Anemia Anxiety Chronic pain Colon polyps Depression Essential hypertension Former smoker GCA (giant cell arteritis) GERD (gastroesophageal reflux disease) Lung nodules Morbid obesity Multiple thyroid nodules Obesity Osteoarthritis Osteoporosis Pancreatitis Poor dentition Pure hypercholesterolemia Thoracic aortic aneurysm without rupture Vision changes Home Medications omeprazole 20 mg capsule,delayed release 20 mg PO DAILY ACID REFLUX 10/25/16 [History Last Taken 02/21/23] calcium carbonate 600 mg-vitamin D3 10 mcg (400 unit) tablet 1 tab PO DAILY SUPPLEMENT 10/16/21 [History Last Taken 02/21/23] metoprolol succinate 25 mg tablet,extended release 24 hr 25 mg PO DAILY BLOOD PRESSURE #90 tabs 01/08/23 [Rx Last Taken 02/21/23] bupropion HCl 150 mg 24 hr tablet, extended release 150 mg PO DAILY DEPRESSION 02/04/23 [History Last Taken 02/21/23] ergocalciferol (vitamin D2) 1,250 mcg (50,000 unit) capsule 1,250 mcg PO TH 02/04/23 [History Last Taken 02/21/23] nystatin 100,000 unit/gram topical cream 1 applic topical BID PRN ANTIFUNGAL 02/04/23 [History Last Taken Unknown] sertraline 50 mg tablet 50 mg PO DAILY DEPRESSION 02/04/23 [History Last Taken 02/21/23] tocilizumab 162 mg/0.9 mL subcutaneous pen injector (Actemra ACTPen) 162 mg subcut TU RHEUMATOID ARTHRITIS 02/04/23 [History Last Taken 02/19/23] potassium chloride 20 mEq tablet,extended release 20 meq PO DAILY SUPPLEMENT 7 days #7 tabs 02/11/23 [Rx Last Taken 02/21/23] lisinopril 10 mg tablet 10 mg PO QHS BLOOD PRESSURE 02/22/23 [History Last Taken 02/21/23] lisinopril 10 mg tablet 20 mg PO DAILY BLOOD PRESSURE 02/22/23 [History Last Taken 02/21/23] prednisone 5 mg tablet See Taper PO DAILY STEROID 02/22/23 [History Last Taken 02/21/23] Allergy/AdvReac Type Severity Reaction Status Date / Time No Known Allergies Allergy Verified 02/04/23 05:09 Family History Mother Colon cancer Father Cancer Lung Sister Breast cancer Brother Cancer Lung Surgical History History of carpal tunnel surgery History of cholecystectomy History of total hysterectomy Social History household members: none Smoking Status: Former smoker alcohol intake: never substance use type: does not use caffeine: Yes Type: coffee Number of servings: 2 ROS ROS Narrative Constitutional: Reports fatigue and weakness. No fever. HEENT: Reports systems reviewed and no addt'l complaints, except as documented Respiratory/Chest: No acute shortness of breath or respiratory distress or wheezing. CVS: No chest pain or pressure or tightness Gastrointestinal: Denies coffee ground emesis, hematemesis. Rest as described in HPI Genitourinary: Denies burning urination or new urinary tract symptoms Musculoskeletal: Chronic back pain mainly lumbar region. Bilateral knee arthritis. ROM limited. Neurologic: Denies seizure-like symptoms. No acute strokelike symptoms. skin: No ulcer. No rash Endocrinology: Reports systems reviewed and no addt'l complaints, except as documented Hematologic/Lymphatic: Reports systems reviewed and no addt'l complaints, exceptas documented Rest 14 ROS are negative except as mentioned in HPI Vital Signs Vital Signs Vital Signs: 02/22/23 11:40 02/22/23 14:00 Temperature 98.5 F Temperature Source Temporal Pulse Rate 64 64 Respiratory Rate 18 14 Blood Pressure 186/87 H 183/61 H Blood Pressure Mean 120 101 Pulse Ox 95 98 Oxygen Delivery Method Room Air Room Air Weight Weight: 246 lb 14.684 oz Body Mass Index (BMI) 46.6 Physical Exam Narrative General: Alert, Oriented x3, Cooperative, morbid obese BMI 46.7 kg/m?. HEENT: Atraumatic, PERRLA, EOMI, Normocephalic Oral: Oral mucosa dry. No Gingival or Mucosal Lesions/ Ulcerations Neck: Supple, No JVD, Negative Carotid Bruits Lungs: Air entry diminished in bilateral lung bases. No crepitation/rhonchi Cardiovascular: Regular rate, Regular Rhythm, Normal S1, Normal S2, No murmurs Abdomen: Tenderness present over left upper quadrant. Bowel Sounds Present, Soft, Non-Distended : Denies acute dysuria or Tract symptoms. No renal angle tenderness. No suprapubic tenderness. Extremities: Mild bilateral nonpitting edema, Capillary Refill Less than 3 Seconds Skin: No rashes, No breakdown Musculoskeletal/spine: Tenderness present on the left paraspinal muscles. Bilateral knee arthritis right worse than left. Disequilibrium Neurological: Cranial nerves II-XII grossly intact, DTR 2+/4 and Symmetrical, Neuro grossly intact Psych/Mental Status: Flat affect. Results Lab / Micro Data 02/22/23 12:10 02/22/23 12:10 Labs: Laboratory Results - last 24 hr 02/22/23 12:10: WBC 6.2, RBC 4.36, Hgb 12.3, Hct 38.3, MCV 87.8, MCH 28.2, MCHC 32.1, RDW Std Deviation 44.0 H, RDW Coeff of Janey 14.3, Plt Count 219, MPV 9.0, Immature Gran % (Auto) 1.100 H, Neut % (Auto) 67.1, Lymph % (Auto) 18.5 L, [place] % (Auto) 12.5 H, Eos % (Auto) 0.5, Baso % (Auto) 0.3, Absolute Neuts (auto) 4.1,Absolute Lymphs (auto) 1.14, Nucleated RBC % 0, Sodium 138, Potassium 3.1 L, Chloride 104, Carbon Dioxide 25.0, Anion Gap 9, BUN 28 H, Creatinine 1.22 H, Estim Creat Clear Calc 33.77, Est GFR (MDRD) Af Amer 57 L, Est GFR (MDRD) Non-Af47 L, BUN/Creatinine Ratio 23.0 H, Glucose 111 H, Calcium 8.7, Total Bilirubin 2.20 H, AST 37, ALT 50, Alkaline Phosphatase 64, Total Protein 6.3 L, Albumin 3.5, Globulin 2.8, Albumin/Globulin Ratio 1.2, Lipase 172 H 02/22/23 13:58: Urine Color Yellow, Urine Clarity Clear, Urine pH 5.0, Ur Specific [place] 1.020, Urine Protein 15 H, Urine Glucose (UA) Normal, Urine Ketones 5 H, Urine Occult Blood Negative, Urine Nitrite Negative, Urine Bilirubin Negative, Urine Urobilinogen Normal, Ur Leukocyte Esterase 25 H, UrineRBC 0 SEEN, Urine WBC 0-5 SEEN, Ur Squamous Epith Cells 0 SEEN, Urine Bacteria 0SEEN, Urine Mucus 0 SEEN Radiology Impression Abdomen/Pelvis CT 02/22/23 12:14 IMPRESSION: Punctate calcifications throughout the pancreas suggestive of chronic pancreatitis. No acute abnormality is seen. The patient is status post cholecystectomy and hysterectomy. Electronically Signed: César Do MD at 13:43 EDT , Assessment & Plan Assessment/Plan (1) Acute recurrent pancreatitis: PLAN: Plan This 67-year-old female came to ED for severe abdominal pain almost 1 week alongwith nausea vomiting and diarrhea for 3 days 1. Acute on recurrent abdominal pain most likely due to acute on chronic pancreatitis/C. difficile colitis: Patient is being admitted on [facility] floor. IV fluid Ringer lactate. Mild hypokalemia and potassium replacement ordered. Keep patient n.p.o. Lipase mildly elevated 172. 2. Acute diarrhea with suspicion of C. difficile colitis:CT abdomen reviewed and shows scattered colonic diverticula but no diverticulitis. High suspicion of C. difficile. C. difficile test ordered. If positive will need oral vancomycin. Patient recently had ceftriaxone for E. coli UTI. 3. JUDE most likely due to diarrhea/prerenal: Creatinine 0.7 baseline. Creatinine 1.2 on admission. Patient also had JUDE during previous admission. At that time creatinine was 1.88 on 02/04/2023 which returned to normal. IV fluid resuscitation. Hold lisinopril 4. Hypertension: Blood pressure is elevated. IV hydralazine for SBP more than 180 mmHg. Oral antihypertensive n.p.o. is allowed. 5. Chronic degenerative arthritis mainly knee arthritis, decreased ADL with with limited mobility and anxiety/depression: PT and OT ordered. Patient also looks mildly depressed. Home medication reconciliation done 6. Hx GCA -Continue prednisone DVT: Lovenox 40 mg subcu daily. Living will/advanced directive/end of life care: Patient does not have living will or advanced directive. After discussion of benefits/risks procedures involved with full code, DNR CC arrest and DNR CC, the patient Was indecisive even after thinking a lot. She looked depressed from her quality of life. I suggested if she is unsure, she can be full code until further decision is made. She agreed with that Patient does want artificial life support including intubation, tube feed, ventilator and/chest compression, central venous catheter, vasopressor and DC shock if needed Total time spent in [id number] encounter in discussion of advanced directive 17 minutes. Charges/Coding Visit Charges Inpatient E&M: 98427 Init Hosp L3 Procedures Hospitalists Procedures: 94711 Advncd Care Plan 30 Min 02/22/231724 <Electronically signed by Wilbur Wolff MD> Cosigner Signature (if applicable): CC: Dr. Wilbur Wolff MD; Dr. Mauro Krishnamurthy MD~ Signed [facility] Work Phone: [phone]) 997-739507-14-2023 Discharge summary Author Kylerfelicitas Fox [facility] February 22, 2023 4:57pm Note Date/Time February 22, 2023 12:3 0pm [facility] Medical Records Department [address] [place] [address] Emergency Department Summary 02/22/23 MR#: [id number] Acct: [id number] Name: AUGUSTINE PENA Rep #:[id number] : 1955 67 From: Kyler Fox DO PCP: Dr. Mauro Krishnamurthy MD Status:REG E R Location: ED HPI HPI - GI History of Present Illness Chief Complaint: Abd Pain Narrative Narrative: 67-year-old female presenting with abdominal pain. She has history of recurrentpancreatitis. She was just hospitalized for this and also had a UTI at the sametime. She is on antibiotics in the hospital. She states that her pain never actually went away but it was tolerable and over the last 24 hours her pain is worse. She does state her pain is typically just to the left of center of her epigastrium and today she is having bilateral lower back pain in addition to it and states that the left lower quadrant of her abdomen is tender. She had some diarrhea over the last 24 hours. She reports that her home health overnight caregiver took her urine a couple of days ago and she was told she has UTI now. She has not had a fever. No black or bloody stools. [facility] Medical History Acute recurrent pancreatitis Anemia Anxiety Chronic pain Colon polyps Depression Essential hypertension Former smoker GCA (giant cell arteritis) GERD (gastroesophageal reflux disease) Lung nodules Morbid obesity Multiple thyroid nodules Obesity Osteoarthritis Osteoporosis Pancreatitis Poor dentition Pure hypercholesterolemia Thoracic aortic aneurysm without rupture Vision changes Home Medications omeprazole 20 mg capsule,delayed release 20 mg PO DAILY gerd 10/25/16 [History Last Taken 10/16/21] calcium carbonate 600 mg-vitamin D3 10 mcg (400 unit) tablet 1 tab PO DAILY SUPPLEMENT 10/16/21 [History Last Taken 10/16/21] acetaminophen 500 mg tablet 1,000 mg (2 x 500 mg) PO Q6H PRN PRN Pain Score 1- 10#0 tabs 11/01/21 [Rx Last Taken Unknown] metoprolol succinate 25 mg tablet,extended release 24 hr 25 mg PO DAILY bp #90 tabs 01/08/23 [Rx Last Taken Unknown] bupropion HCl 150 mg 24 hr tablet, extended release 150 mg PO DAILY 02/04/23 [History Last Taken Unknown] ergocalciferol (vitamin D2) 1,250 mcg (50,000 unit) capsule 1,250 mcg PO TH 02/04/23 [History Last Taken 02/21/23] nystatin 100,000 unit/gram topical cream 1 applic topical BID Check with primarydoctor 02/04/23 [History Last Taken Unknown] sertraline 50 mg tablet 50 mg PO DAILY 02/04/23 [History Last Taken Unknown] tocilizumab 162 mg/0.9 mL subcutaneous pen injector (Actemra ACTPen) 162 mg subcut QWEEK Check with primary doctor 02/04/23 [History Last Taken Unknown] lisinopril 10 mg tablet See Rx Instructions .Route .COMPLEX 30 days #90 tabs 02/11/23 [Rx Last Taken Unknown] potassium chloride 20 mEq tablet,extended release 20 meq PO DAILY 7 days #7 tabs02/11/23 [Rx Last Taken Unknown] Allergy/AdvReac Type Severity Reaction Status Date / Time No Known Allergies Allergy Verified 02/04/23 05:09 Family History Mother Colon cancer Father Cancer Lung Sister Breast cancer Brother Cancer Lung Surgical History History of carpal tunnel surgery History of cholecystectomy History of total hysterectomy Social History household members: none Smoking Status: Former smoker alcohol intake: never substance use type: does not use caffeine: Yes Type: coffee Number of servings: 2 EXAM Physical Exam Const Vital Signs: 02/22/23 11:40 02/22/23 14:00 Temperature 98.5 F Temperature Source Temporal Pulse Rate 64 64 Respiratory Rate 18 14 Blood Pressure 186/87 H 183/61 H Blood Pressure Mean 120 101 Pulse Ox 95 98 Oxygen Delivery Method Room Air Room Air Positive well nourished General Appearance ED: NAD; Negative for pallor HEENT Reports moist mucous membranes normocephalic and atraumatic Eyes PERRL and EOMs intact bilaterally General Eye ED: Negative for pale conjunctiva or scleral icterus Neck no lymphadenopathy Resp normal respiratory effort and clear to auscultation bilaterally Cardio regular rate and regular rhythm GI Palpation: tender epigastric, LLQ and LUQ Back/Spine no CVA tenderness Neuro CN's II-XII intact bilaterally and moves all extremities Sensorium / Orientation: alert Motor Exam: strength 5/5 throughout Psych mental status grossly normal Skin no wounds General Skin Exam: Negative for jaundice or pallor MDM MDM MDM Narrative Medical decision making narrative: Patient presenting with abdominal pain which is somewhat atypical of her pancreatitis. She does have pain in that area but also has flank pain bilaterally and left lower quadrant pain and she is having diarrhea. Differential includes pancreatitis, colitis, gastritis, diverticulitis, UTI, pyelonephritis, small bowel obstruction, C. difficile colitis. CBC was obtainedto assess white blood cell count, hemoglobin, platelets. CMP to assess liver function, renal function, electrolytes, glucose. Lipase to assess for pancreatitis. Urinalysis to assess for UTI. Patient given IV fluids, morphine,Zofran. CBC showed no significant leukocytosis. Hemoglobin chronic are stable. Platelets normal. Creatinine is slightly elevated at 1.22 she was given IV fluids already. Potassium slight low at 3.1. Lipase 172 however this is going down. Urinalysis was negative for infection. I obtained a CT of the abdomen pelvis with IV contrast which shows punctate calcifications of the pancreas and the patient does have chronic pancreatitis. Went over the results with the patient and she did not feel comfortable going home given her pain and she feelsweak. I discussed this with the hospitalist and they are amenable to admission. Impression: 1. Abdominal pain 2. Nausea/vomiting Lab Data Labs: Laboratory Results - last 24 hr 02/22/23 02/22/23 12:10 13:58 WBC 6.2 RBC 4.36 Hgb 12.3 Hct 38.3 MCV 87.8 MCH 28.2 MCHC 32.1 RDW Std Deviation 44.0 H RDW Coeff of Janey 14.3 Plt Count 219 MPV 9.0 Immature Gran % (Auto) 1.100 H Neut % (Auto) 67.1 Lymph % (Auto) 18.5 L [place] % (Auto) 12.5 H Eos % (Auto) 0.5 Baso % (Auto) 0.3 Absolute Neuts (auto) 4.1 Absolute Lymphs (auto) 1.14 Nucleated RBC % 0 Sodium 138 Potassium 3.1 L Chloride 104 Carbon Dioxide 25.0 Anion Gap 9 BUN 28 H Creatinine 1.22 H Estim Creat Clear Calc 33.77 Est GFR (MDRD) Af Amer 57 L Est GFR (MDRD) Non-Af 47 L BUN/Creatinine Ratio 23.0 H Glucose 111 H Calcium 8.7 Total Bilirubin 2.20 H AST 37 ALT 50 Alkaline Phosphatase 64 Total Protein 6.3 L Albumin 3.5 Globulin 2.8 Albumin/Globulin Ratio 1.2 Lipase 172 H Urine Color Yellow Urine Clarity Clear Urine pH 5.0 Ur Specific [place] 1.020 Urine Protein 15 H Urine Glucose (UA) Normal Urine Ketones 5 H Urine Occult Blood Negative Urine Nitrite Negative Urine Bilirubin Negative Urine Urobilinogen Normal Ur Leukocyte Esterase 25 H Urine RBC 0 SEEN Urine WBC 0-5 SEEN Ur Squamous Epith Cells 0 SEEN Urine Bacteria 0 SEEN Urine Mucus 0 SEEN Radiography Diagnostic Testing: Clinical Impression(s) from Imaging Studies Abdomen/Pelvis CT 02/22/23 12:14 IMPRESSION: Punctate calcifications throughout the pancreas suggestive of chronic pancreatitis. No acute abnormality is seen. The patient is status post cholecystectomy and hysterectomy. Electronically Signed: César Do MD at 13:43 EDT , Discharge Plan Triage Chief Complaint: Abd Pain ED Provider: Kyler Fox Dx/Rx/DC Orders Prescriptions: No Action omeprazole 20 MG capsule 20 mg PO DAILY calcium carbonate-vitamin D3 600 mg-10 mcg (400 unit) tablet 1 tab PO DAILY acetaminophen 500 mg Tablet 1,000 mg PO Q6H PRN PRN (Reason: Pain Score 1-10) Qty: 0 0RF sertraline 50 mg tablet 50 mg PO DAILY bupropion HCl 150 mg tablet extended release 24 hr 150 mg PO DAILY Actemra ACTPen 162 mg/0.9 mL pen injector 162 mg SUBCUT QWEEK Patient Comments: pt states that she was to start it this past Saturday02/01/23 but was unsure how to give it so she did not take it. Pt will call the MD who prescribed it on Saturday to figure out what she needs to since she did not get her first dose. nystatin 100,000 unit/gram Cream 1 applic TOPICAL BID ergocalciferol (vitamin D2) 1,250 mcg (50,000 unit) Capsule 1,250 mcg PO TH lisinopril 10 mg Tablet See Rx Instructions .ROUTE .COMPLEX 30 Days Qty: 90 0RF Rx Instructions: 20mg (2 tabs) in the morning and 10mg (1 tab) at night potassium chloride 20 mEq tablet extended release 20 meq PO DAILY 7 Days Qty: 7 0RF metoprolol succinate 25 mg tablet extended release 24 hr 25 mg PO DAILY Qty: 90 3RF Primary Care Provider: Mauro Krishnamurthy Referrals: aMuro Krishnamurthy MD [Primary Care Provider] - What to do if you have Problems For any increased pain, shortness of breath, bleeding, nausea or vomiting, chestpain, or any unexpected problems, contact your Primary Care Provider. Call [facility] ([phone]) or report to the closest Emergency Room. Call 911 if necessary. 02/22/231656 <Electronically signed by Kyler Fox DO> Cosigner Signature (if applicable): CC: Dr. Mauro Krishnamurthy MD ~ Signed [facility] Work Phone: [phone]) 970-340407-14-2023 Discharge summary Author Kyler Fox [facility] February 22, 2023 4:57pm Note Date/Time February 22, 2023 12:3 0pm [facility] Medical Records Department [address] [place] [id number] Emergency Department Summary 02/22/23 MR#: [id number] Acct: [id number] Name: AUGUSTINE PENA GOPAL Rep #:[id number] : 1955 67 From: Kyler Fox DO PCP: Dr. Mauro Krishnamurthy MD Status:REG E R Location: ED HPI HPI - GI History of Present Illness Chief Complaint: Abd Pain Narrative Narrative: 67-year-old female presenting with abdominal pain. She has history of recurrentpancreatitis. She was just hospitalized for this and also had a UTI at the sametime. She is on antibiotics in the hospital. She states that her pain never actually went away but it was tolerable and over the last 24 hours her pain is worse. She does state her pain is typically just to the left of center of her epigastrium and today she is having bilateral lower back pain in addition to it and states that the left lower quadrant of her abdomen is tender. She had some diarrhea over the last 24 hours. She reports that her home health overnight caregiver took her urine a couple of days ago and she was told she has UTI now. She has not had a fever. No black or bloody stools. [facility] Medical History Acute recurrent pancreatitis Anemia Anxiety Chronic pain Colon polyps Depression Essential hypertension Former smoker GCA (giant cell arteritis) GERD (gastroesophageal reflux disease) Lung nodules Morbid obesity Multiple thyroid nodules Obesity Osteoarthritis Osteoporosis Pancreatitis Poor dentition Pure hypercholesterolemia Thoracic aortic aneurysm without rupture Vision changes Home Medications omeprazole 20 mg capsule,delayed release 20 mg PO DAILY gerd 10/25/16 [History Last Taken 10/16/21] calcium carbonate 600 mg-vitamin D3 10 mcg (400 unit) tablet 1 tab PO DAILY SUPPLEMENT 10/16/21 [History Last Taken 10/16/21] acetaminophen 500 mg tablet 1,000 mg (2 x 500 mg) PO Q6H PRN PRN Pain Score 1- 10#0 tabs 11/01/21 [Rx Last Taken Unknown] metoprolol succinate 25 mg tablet,extended release 24 hr 25 mg PO DAILY bp #90 tabs 01/08/23 [Rx Last Taken Unknown] bupropion HCl 150 mg 24 hr tablet, extended release 150 mg PO DAILY 02/04/23 [History Last Taken Unknown] ergocalciferol (vitamin D2) 1,250 mcg (50,000 unit) capsule 1,250 mcg PO TH 02/04/23 [History Last Taken 02/21/23] nystatin 100,000 unit/gram topical cream 1 applic topical BID Check with primarydoctor 02/04/23 [History Last Taken Unknown] sertraline 50 mg tablet 50 mg PO DAILY 02/04/23 [History Last Taken Unknown] tocilizumab 162 mg/0.9 mL subcutaneous pen injector (Actemra ACTPen) 162 mg subcut QWEEK Check with primary doctor 02/04/23 [History Last Taken Unknown] lisinopril 10 mg tablet See Rx Instructions .Route .COMPLEX 30 days #90 tabs 02/11/23 [Rx Last Taken Unknown] potassium chloride 20 mEq tablet,extended release 20 meq PO DAILY 7 days #7 tabs02/11/23 [Rx Last Taken Unknown] Allergy/AdvReac Type Severity Reaction Status Date / Time No Known Allergies Allergy Verified 02/04/23 05:09 Family History Mother Colon cancer Father Cancer Lung Sister Breast cancer Brother Cancer Lung Surgical History History of carpal tunnel surgery History of cholecystectomy History of total hysterectomy Social History household members: none Smoking Status: Former smoker alcohol intake: never substance use type: does not use caffeine: Yes Type: coffee Number of servings: 2 EXAM Physical Exam Const Vital Signs: 02/22/23 11:40 02/22/23 14:00 Temperature 98.5 F Temperature Source Temporal Pulse Rate 64 64 Respiratory Rate 18 14 Blood Pressure 186/87 H 183/61 H Blood Pressure Mean 120 101 Pulse Ox 95 98 Oxygen Delivery Method Room Air Room Air Positive well nourished General Appearance ED: NAD; Negative for pallor HEENT Reports moist mucous membranes normocephalic and atraumatic Eyes PERRL and EOMs intact bilaterally General Eye ED: Negative for pale conjunctiva or scleral icterus Neck no lymphadenopathy Resp normal respiratory effort and clear to auscultation bilaterally Cardio regular rate and regular rhythm GI Palpation: tender epigastric, LLQ and LUQ Back/Spine no CVA tenderness Neuro CN's II-XII intact bilaterally and moves all extremities Sensorium / Orientation: alert Motor Exam: strength 5/5 throughout Psych mental status grossly normal Skin no wounds General Skin Exam: Negative for jaundice or pallor MDM MDM MDM Narrative Medical decision making narrative: Patient presenting with abdominal pain which is somewhat atypical of her pancreatitis. She does have pain in that area but also has flank pain bilaterally and left lower quadrant pain and she is having diarrhea. Differential includes pancreatitis, colitis, gastritis, diverticulitis, UTI, pyelonephritis, small bowel obstruction, C. difficile colitis. CBC was obtainedto assess white blood cell count, hemoglobin, platelets. CMP to assess liver function, renal function, electrolytes, glucose. Lipase to assess for pancreatitis. Urinalysis to assess for UTI. Patient given IV fluids, morphine,Zofran. CBC showed no significant leukocytosis. Hemoglobin chronic are stable. Platelets normal. Creatinine is slightly elevated at 1.22 she was given IV fluids already. Potassium slight low at 3.1. Lipase 172 however this is going down. Urinalysis was negative for infection. I obtained a CT of the abdomen pelvis with IV contrast which shows punctate calcifications of the pancreas and the patient does have chronic pancreatitis. Went over the results with the patient and she did not feel comfortable going home given her pain and she feelsweak. I discussed this with the hospitalist and they are amenable to admission. Impression: 1. Abdominal pain 2. Nausea/vomiting Lab Data Labs: Laboratory Results - last 24 hr 02/22/23 02/22/23 12:10 13:58 WBC 6.2 RBC 4.36 Hgb 12.3 Hct 38.3 MCV 87.8 MCH 28.2 MCHC 32.1 RDW Std Deviation 44.0 H RDW Coeff of Janey 14.3 Plt Count 219 MPV 9.0 Immature Gran % (Auto) 1.100 H Neut % (Auto) 67.1 Lymph % (Auto) 18.5 L [place] % (Auto) 12.5 H Eos % (Auto) 0.5 Baso % (Auto) 0.3 Absolute Neuts (auto) 4.1 Absolute Lymphs (auto) 1.14 Nucleated RBC % 0 Sodium 138 Potassium 3.1 L Chloride 104 Carbon Dioxide 25.0 Anion Gap 9 BUN 28 H Creatinine 1.22 H Estim Creat Clear Calc 33.77 Est GFR (MDRD) Af Amer 57 L Est GFR (MDRD) Non-Af 47 L BUN/Creatinine Ratio 23.0 H Glucose 111 H Calcium 8.7 Total Bilirubin 2.20 H AST 37 ALT 50 Alkaline Phosphatase 64 Total Protein 6.3 L Albumin 3.5 Globulin 2.8 Albumin/Globulin Ratio 1.2 Lipase 172 H Urine Color Yellow Urine Clarity Clear Urine pH 5.0 Ur Specific [place] 1.020 Urine Protein 15 H Urine Glucose (UA) Normal Urine Ketones 5 H Urine Occult Blood Negative Urine Nitrite Negative Urine Bilirubin Negative Urine Urobilinogen Normal Ur Leukocyte Esterase 25 H Urine RBC 0 SEEN Urine WBC 0-5 SEEN Ur Squamous Epith Cells 0 SEEN Urine Bacteria 0 SEEN Urine Mucus 0 SEEN Radiography Diagnostic Testing: Clinical Impression(s) from Imaging Studies Abdomen/Pelvis CT 02/22/23 12:14 IMPRESSION: Punctate calcifications throughout the pancreas suggestive of chronic pancreatitis. No acute abnormality is seen. The patient is status post cholecystectomy and hysterectomy. Electronically Signed: César Do MD at 13:43 EDT , Discharge Plan Triage Chief Complaint: Abd Pain ED Provider: Kyler Fox Dx/Rx/DC Orders Prescriptions: No Action omeprazole 20 MG capsule 20 mg PO DAILY calcium carbonate-vitamin D3 600 mg-10 mcg (400 unit) tablet 1 tab PO DAILY acetaminophen 500 mg Tablet 1,000 mg PO Q6H PRN PRN (Reason: Pain Score 1-10) Qty: 0 0RF sertraline 50 mg tablet 50 mg PO DAILY bupropion HCl 150 mg tablet extended release 24 hr 150 mg PO DAILY Actemra ACTPen 162 mg/0.9 mL pen injector 162 mg SUBCUT QWEEK Patient Comments: pt states that she was to start it this past Saturday02/01/23 but was unsure how to give it so she did not take it. Pt will call the MD who prescribed it on Saturday to figure out what she needs to since she did not get her first dose. nystatin 100,000 unit/gram Cream 1 applic TOPICAL BID ergocalciferol (vitamin D2) 1,250 mcg (50,000 unit) Capsule 1,250 mcg PO TH lisinopril 10 mg Tablet See Rx Instructions .ROUTE .COMPLEX 30 Days Qty: 90 0RF Rx Instructions: 20mg (2 tabs) in the morning and 10mg (1 tab) at night potassium chloride 20 mEq tablet extended release 20 meq PO DAILY 7 Days Qty: 7 0RF metoprolol succinate 25 mg tablet extended release 24 hr 25 mg PO DAILY Qty: 90 3RF Primary Care Provider: Mauro Krishnamurthy Referrals: Mauro Krishnamurthy MD [Primary Care Provider] - What to do if you have Problems For any increased pain, shortness of breath, bleeding, nausea or vomiting, chestpain, or any unexpected problems, contact your Primary Care Provider. Call [facility] ([phone]) or report to the closest Emergency Room. Call 911 if necessary. 02/22/23 3435 <Electronically signed by Kyler Fox DO> Cosigner Signature (if applicable): CC: Dr. Mauro Krishnamurthy MD ~ Signed [facility] Work Phone: 1(289) 673-650707-14-2023 Miscellaneous Notes* Telephone Encounter - Abbe Higgins RN - 02/22/2023 10:54 AM EDT Nessa from [facility] phoned reporting pt is having severe, 8/10 abdominal pain since last evening. Pt was recently hospitalized on 02/04 for acute pancreatitis and pt believes it has returned. Pt has N/V, diarrhea, and severe pain. Pt is agreeable to ER per triage protocol recommendation. Because ptis unable to drive and has no one to take her, nurse will call 911. Reason for Disposition [1] SEVERE pain (e.g., excruciating) AND [2] present > 1 hour Answer Assessment - Initial Assessment Questions 1. LOCATION: HH Nurse is at pt's home and reports pt having abdominal pain and was recently hospitalized with pancreatitis and believes pancreatitis has returned. 2. RADIATION: Pain radiates to back and sides. 3. ONSET: Last evening. 4. SUDDEN: Sudden pain, worsened overnight since onset. 5. PATTERN: Constant pain, now worsening. 6. SEVERITY: Pain 8/10, severe since onset. 7. RECURRENT SYMPTOM: Yes had similar abdominal pain when she had pancreatitis (four times), last time was 02/04 and pt was admitted to hospital. 8. CAUSE: Believes pain d/t pancreatitis, pain feels the same as last time. 9. RELIEVING/AGGRAVATING FACTORS: Nothing relieves the pain. Pt did not try pain meds. Nothing worsens the pain. 10. OTHER SYMPTOMS: Do you have any other symptoms? (e.g., back pain, diarrhea, vomiting). Endorses back pain, diarrhea, nausea and vomiting, and confusion. Notes diarrhea occurs x4 yesterday. Mildamount of vomiting per pt. Vomit is yellow bile. Per pt, confusion since last Saturday. Nurse reports positive UA. Pt denies fever or pain/burning with urination. 11. : Pt post-menopausal. Protocols used: Abdominal Pain - [id number] documented in this encounterFirelands Regional Medical Center07-13-2023 Miscellaneous Notes* Telephone Encounter - Mauro Krishnamurthy MD - 02/21/2023 1:04 PM EDT agree * Telephone Encounter - Niesha Beckwith RN - 02/21/2023 12:34 PM EDT Jasmina nurse with [facility] calls to let provider know that patient cancelled therapy appointment todayd/t not feeling well. Patient reported she was having bilateral abdominal pain, nausea, vomiting x 1, and diarrhea. Patient not eating d/t nausea. Tolerating fluids. nurse instructed patient that if symptoms got worse to go to ED, if abdominal pain wasn't controlled to go to ED, and reviewed, s/s of dehydration to go to ED for. nurse to visit patient tomorrow. nurse requests we call patient if there is any further instructions for patient at [phone]. Niesha Beckwith, RN documented in this encounterFirelands Regional Medical Center07-12-2023 Miscellaneous Notes* Telephone Encounter - Mauro Krishnamurthy MD - 02/20/2023 2:07 PM EDT Urine is ok. Wait on culture. * Telephone Encounter - Vinita Chisholm - 02/20/2023 1:51 PM EDT Scan on 02/20/2023 10:02 AM by Provider, VIKTORIA Glasgow: Chemistry documented in this encounterFirelands Regional Medical Center07-11-2023 Miscellaneous Notes* Telephone Encounter - Patrizia Moser LPN - 02/19/2023 2:10 PM EDT Susan notified. Verbalized understanding. * Telephone Encounter - Niesha Beckwith RN - 02/19/2023 12:28 PM EDT Susan with [facility] calls to request an order for ua c&s at patient's request. Patient reports that she is having some episodes of confusion. No other urinary symptoms reported. Afebrile. Susan requests call back with verbal order at [phone]. Susan reports she will collect urine while with patient and if provider doesn't agree will dispose of. Niesha Beckwith RN documented in this encounterFirelands Regional Medical Center07-10-2023 Miscellaneous Notes* Telephone Encounter - Francine Chiu MA - 02/18/2023 2:20 PM EDT Faxed. Confirmation received. * Telephone Encounter - Radha Willis MD - 02/18/2023 2:12 PM EDT Thank you! [place] clinical team, can you please fax the order for Actemra to [facility], fax number noted above. Let me know if they require an additional order in the form of a letter with instructions, thisshould be a once a week medication for her given through the Autopen that she has at home. * Telephone Encounter - Mauro Krishnamurthy MD - 02/18/2023 1:38 PM EDT Will forward to rheum * Telephone Encounter - Stefani Atkins LPN - 02/18/2023 1:24 PM EDT Spoke with Jacqueline at [facility]. Advised of information below and she states that they can help with instructing pt on medication/self-injection training. Requesting order to be faxed regarding medication and when to complete (they will be with pt Tues/Fri of this week). Please review and advise. Fax to [phone]. Stefani Atkins LPN * Telephone Encounter - Stefani Atkins LPN - 02/15/2023 12:34 PM EDT Left message for [facility] office to contact PCP office: Patient's perishable fruit inspector is requesting patient to be given self-injection teaching for her Actemra autopen. D/t transportation issues and inability to do virtual appt for pt, they are trying to have this completed locally. With pt currently to start receiving nursing, is this something that theywould be able to help provide to help decrease additional strain of need for transportation to get to appts? Stefani Atkins LPN documented in this encounterFirelands Regional Medical Center07-10-2023 History of Present illness Narrative* Mauro Krishnamurthy MD - 02/18/2023 1:24 PM EDT Patient presents with: Hospital F/U HPI: Patient presents today for office visit for hospital follow up. Admitted into [facility] on 02/04/23 Discharged 02/11/23 Dx with acute pancreatitis, UTI Needs to schedule follow up with Dr. Massey Also noted to have E. Coli UTI. Treated with course of Rocephin. No urinary issues. Lipase was up. CT showed pancreatitis and calcifications indicative of chronic pancreatitis. Still with left mid-abd pain. Constant dull ache. Does not drink alcohol. Some nausea. Denies vomiting. No diarrhea but states her stool is very loose. Hard to wipe and get clean. Has had recurrent pancreatitis issues itn the past. Potassium was low. They supplemented for 7 days. Will need recheck. They added an additional 10 mg of lisinopril to her bp control and added mirlax for constipation. Has seen Dr. Velez in the past for her idiopathic pancreatitis. Mild nausea. No vomiting. Having up to three times a da y. Can hold mirlax if having loose stools. MEDICATIONS: Current Outpatient Medications Medication Sig buPROPion XL (WELLBUTRIN XL) 150 mg 24 hr tablet ergocalciferol 50,000 unit capsule (VITAMIN D2, DRISDOL) Take 1 capsule by mouth one time a week. benzonatate (TESSALON PERLES) 100 mg capsule Take 1 capsule by mouth three times daily as needed for cough. psyllium husk (METAMUCIL) 3.4 gram/5.4 gram powd Take 3.4 g by mouth once daily. In 8 oz of water polyethylene glycol 3350 (MIRALAX, GLYCOLAX) 17 gram/dose powder Use as directed for Miralax / Gatorade Bowel Prep Kit Bisacodyl (DULCOLAX) 5 mg tab Use as directed for Miralax / Gatorade Bowel Prep Kit ibuprofen (MOTRIN ORAL) Take by mouth as needed. melatonin 3 mg capsules Take 3 mg by mouth. At night nystatin (MYCOSTATIN) cream Apply 1 application to affected area twice daily. ARIPiprazole (ABILIFY) 5 mg tablet Take 5 mg by mouth once daily. LORazepam (ATIVAN) 0.5 mg Take 0.5 mg by mouth once daily as needed. Incontinence Pants, Reusable misc 5 Units continuous. metoprolol succinate ER (TOPROL XL) 25 mg 24 hr tablet Take 1 tablet by mouth once daily. QUEtiapine (SEROQUEL) 50 mg tablet Take 50 mg by mouth daily at bedtime. sertraline 100 mg tablet Take 200 mg by mouth once daily. lisinopril (ZESTRIL) 10 mg tablet potassium chloride ER (KLOR-CON) 20 mEq tablet tocilizumab (ACTEMRA ACTPEN) 162 mg/0.9 mL Inject 162mg (1 pen) under the skin one time each week. omeprazole (PRILOSEC) 20 mg capsule Take 1 capsule by mouth once daily. Current Facility-Administered Medications Medication Dose Route Frequency perflutren lipid microspheres 1.3 mL in NaCl (PF) 0.9% 10 mL injection (DEFINITY) INTRAVENOUS DIRECTED PRN sodium chloride 0.9 % (flush) 10 mL (BD POSIFLUSH) 10 mL INTRAVENOUS DIRECTED PRN denosumab 60 mg injection (PROLIA) 60 mg SUBCUTANEOUS Q 6 MONTH ALLERGIES: ALLERGIES No Known Allergies PAST MEDICAL HISTORY Diagnosis Date Anxiety Depression Hypercholesteremia Hypertension Lung nodules unchanged ct 03/24 Pancreatitis 05/2019 Thoracic aortic aneurysm (HCC) 09/23 followed by cardiology Thyroid goiter needs follow up in 05/28 PAST SURGICAL HISTORY Procedure Laterality Date COLONOSCOPY 09/25/2021 repeat in 5 years COLONOSCOPY FLX DX W/COLLJ SPEC WHEN PFRMD 03/31/2014 Colonoscopy COLONOSCOPY FLX DX W/COLLJ SPEC WHEN PFRMD 04/05/2016 Colonoscopy (MAC) EGD W/O BRSH SPEC VARICIES INJ 09/25/2021 LAPS SURG CHOLECYSTECTOMY W/CHOLANGIOGRAPHY 10/25/2016 normal IOC NEUROPLASTY &/TRANSPOS MEDIAN NRV CARPAL TUNNE Right 1989 Carpal tunnel decomp NEUROPLASTY &/TRANSPOS MEDIAN NRV CARPAL TUNNE Left 12/26/2017 Left carpal tunnel release TOTAL ABDOMINAL HYSTERECT W/WO RMVL TUBE OVARY 10/01/2013 FAMILY HISTORY Problem Relation Age of Onset Colon Cancer Mother Cancer Father lung Breast Cancer Sister Cancer Brother lung Social History Tobacco Use Smoking status: Former Packs/day: 0.50 Years: 12.00 Total pack years: 6.00 Types: Cigarettes Quit date: 05/29/2011 Years since quittin.7 Smokeless tobacco: Former Vaping Use Vaping Use: Never used Substance Use Topics Alcohol use: Not Currently Drug use: No Comment: marijuana only as teen Reviewed current medications, allergies, past medical history, surgical history, family history andsocial history today. REVIEW OF SYSTEMS No current urinary symptoms. All other reviewed and negative other than HPI. HEALTH MAINTENANCE: Reviewed health maintenance issues today and recommended the following in detail. COVID-19 VACCINE(4 - Booster for Moderna series) due on 12/18/2021 PNEUMOCOCCAL: 65+(3 - PPSV23 or PCV20) due on 05/24/2022 MAMMOGRAM due on 06/22/2022 ADVANCE DIRECTIVE DISCUSSION Never done VITALS: BP 138/78 Pulse 71 Ht 154.9 cm (5' 1) Wt 110.8 kg (244 lb 3.2 oz) LMP 06/17/2016 SpO2 96% BMI 46.14 kg/m Last 4 Encounter Wt Readings: Date: Wt: 12/21/2022 113.4 kg (250 lb) 12/12/2022 113.9 kg (251 lb) 11/22/2022 0 kg () 10/08/2022 0 kg () PHYSICAL EXAMINATION: General appearance: Well appearing, alert, in no acute distress, well-hydrated, well nourished. Skin: Skin color, texture, turgor normal, no suspicious rashes or lesions Head: Normocephalic, no masses, lesions, tenderness or abnormalities Lungs: Lungs clear to auscultation. No wheezing, rhonchi, rales Heart: RRR without murmur, gallop, or rubs. No ectopy Abdomen: Normal abdominal exam, Abdomen soft, non-tender. Bowel sounds normal. No masses, organomegaly Extremities: No deformities, edema, skin discoloration, clubbing or cyanosis. Good capillary refill. ASSESSMENT/PLAN: 1. Chronic recurrent pancreatitis (HCC) - ICD9: 577.1, ICD10: K86.1 (primary diagnosis) - see gi. Has seen Dr. Velez in the past for the same. Light diet. Red flags for re-assessment reviewed with patient in detail. - CONSULT TO GASTROENTEROLOGY - LIPASE BLD - COMP METABOLIC PANEL - CBC + DIFF 2. Essential hypertension - ICD9: 401.9, ICD10: I10 - Controlled - Continue current medications 3. PMR (polymyalgia rheumatica) (HCC) - ICD9: 725, ICD10: M35.3 - per rheum 4. Hypokalemia - ICD9: 276.8, ICD10: E87.6 - check labs. - COMP METABOLIC PANEL 5. Encounter for screening mammogram for malignant neoplasm of breast - ICD9: V76.12, ICD10: Z12.31 - Follow up for annual exam in one year. - KAM SCREENING 6. Need for vaccination - ICD9: V05.9, ICD10: Z23 - PNEUMOCOCCAL VACCINE (PNEUMOVAX 23) Mauro Krishnamurthy MD documented in this encounterFirelands Regional Medical Center07-06-2023 Miscellaneous Notes* Telephone Encounter - Mauro Krishnamurthy MD - 02/14/2023 2:25 PM EDT ok * Telephone Encounter - Desiree Yu RN - 02/14/2023 2:20 PM EDT Niru, nurse @ [facility] calling with plan of care. Nursing will see patient 1 x/week for one week, 2 x/week for one week and 1 x/week for three weeks Desiree Yu RN documented in this encounterFirelands Regional Medical Center07-05-2023 Miscellaneous Notes* Telephone Encounter - Patrizia Moser LPN - 02/13/2023 3:25 PM EDT Jacqueline notified. * Telephone Encounter - Mauro Krishnamurthy MD - 02/13/2023 3:11 PM EDT ok * Telephone Encounter - Puja Bedoya LPN - 02/13/2023 2:52 PM EDT Nurse Jacqueline from [facility] states pt was discharged 02/11/23 & they usually see pt's within 48 hrs.Jacqueline asking if ok for a delay in start of care for services? Please advise. Puja Bedoya LPN documented in this encounterFirelands Regional Medical Center07-05-2023 History of Present illness Narrative* Radha Willis MD - 02/13/2023 10:59 AM EDT Images from the original note were not included. Rheumatology FOLLOW UP VISIT Date of Service: 02/13/2023 Patient: Augustine Pena Medical Record: [id number] Primary Care Physician: Mauro Krishnamurthy MD Last Rheumatology visit: 12/21/2022 (with Radha Willis) Chief Complaint: Vasculitis This is a virtual visit using Audio only. It required patient-provider interaction for the medical decision making as documented below. Patient consented to this form of visit. I have communicated my name and active licensure. The patient's identity and physical location wereverified at the time of this visit. Either the patient or their legal mortician supplies sales representative has been informed of the risks and benefits of -- and alternatives to -- treatment through a remote evaluation andconsents to proceed with the evaluation remotely. INTERVAL HISTORY Was in hospital for pancreatitis, UTI Got home yesterday, feels better but not great, still on full liquid diet and still has abdominal pain Has to see specialist about recurrent pancreatitis Did not start Actemra, is scared about doing the shots and wants to be shown how EATON went away with increase of prednisone, still on 60 mg No change in vision, jaw pain, or jaw claudication RHEUMATOLOGIC HISTORY She is currently taking prednisone, tocilizumab. Augustine is RF negative - 10 (05/09/2022). Her most recent CHALINO was negative (05/09/2022). HISTORY OF PRESENT ILLNESS 1. PMR 08/2022 with transformation to GCA 01/17/2023 2. Mechanical tenderness over left TMJ Treatment: Prednisone intermittently since 05/2022, high-dose 08/23/2022, 60 mg down titration due to rastafarian pain, negative biopsy then more rapid taper 10 mg a week 09/20, 15 mg 10/18, Relapse on 12.5 mg, increasedto 15 mg 12/21/2022 Transformation to GCA 01/17/2023, reinitiate 60 mg daily while awaiting Actemra Actemra pending initiation 01/17/2023 Work-up: Negative temporal artery biopsy 08/2022 Negative temporal artery ultrasound 04/2022: CHALINO negative Negative RF CK24 ESR trend: 04/25 50 05/09 51 05/23 29 05/31 43 07/04 68 08/01 27 29, 5 10/17, 15 10/31 17 11/27 27 12/06 27 5 29 12/21 29 CRP trend 04/25, 3.9 05/09, 3.7 05/23, less than 0.3 05/31, 4.6 07/04, 7.0 08/01, 0.3 09/20, 0.3 10/17, 2.1 10/31 0.5 11/27 0.6 12/06 0.8 12/12 0.7 12/21 1.0 Augustine Pena is a 66 year old White female with history of hypertension, hyperlipidemia, lung nodules, anxiety/depression, thoracic aortic aneurysm, thyroid goiter, OA who presents to rheumatologyclinic for evaluation of PMR. Chart review reveals she was evaluated by her PCP 04/25 at which point she was complaining of weakness and swelling. She also endorsed pain throughout her body with stiffness. Radiographs demonstratedlarge right suprapatellar effusion, severe OA on right knee, degenerative change in cervical spine,minimal pelvic degeneration with preserved hip joints. Extensive laboratory evaluation was done which demonstrated normal CK, CRP 3.9, ESR 50, normal TSH, negative CHALINO, negative RF. She was initiatedon prednisone 10/5 10 mg as well as physical therapy. Today she presents to clinic alone. She states that for many years she has had recurrent pain in her right leg described as the whole leg starting in her back and radiating down. She also notes tenderness on the medial aspect of her right knee and subjective redness and swelling over the tibia. Sometime early to mid last year she started feeling quite poor with significant pain and stiffness in her shoulders and hips and neck. She describes all over pain that had a few hours worth of morning stiffness. She was eventually started on prednisone 10 mg in May by her PCP with significant improvement in her symptoms about 50%. She reportedly went through a few trials of steroids and every time she would discontinue her steroids, her symptoms would recur. This is also reflected in her serialinflammatory markers. She does note newer onset temporal pain within the past year on the left but cannot state when exactly it started. She thinks her temporal pain could be related to posterior neck pain. She has not had any visual changes, black spots, blurry vision, blind spots, jaw pain, jaw cl audication, tongue claudication. She has a long history of night sweats for many years that have not changed in quality however she now has sweating during the day. Rheumatologic review of systems otherwise notable for years of constipation. She denies fevers, unintentional weight loss, headaches, history of uveitis, dry eye, dry mouth, sores in her nose or mouth, malar rash, photosensitivity, difficulty swallowing, cough, congestion, chest pain, shortness of breath, nausea, vomiting, abdominal pain, blood in her urine or stool, Raynaud's, numbness/tingling. Pain Evaluation Pain Evaluation 09/07/2022 09/07/2022 09/12/2022 09/20/2022 12/21/2022 Pain Score 0 0 5 5 4 Location - - Leg-Right - - Description - - - Aching;Sharp - Duration (#) - - - - - Duration (Timeframe) - - - Years Weeks Frequency - - - Continuous Continuous Intervention - - - Declined - PATIENT-ENTERED DATA PROMIS Assessments PROMIS Assessments 11/27/2016 11/27/2016 12/27/2016 Physical Health Percentile 7 % 6.55 % 15 % Mental Health Percentile 43 % 43.25 % 43 % Pain Score 3 5 4 RAPID 3 Mitchell Activities of Daily Living No Data Dress self? - Get in and out of bed? - Walk outdoors? - Wash and dry body? - Get in and out of car? - RAPID 3 Disease Activity Weighed Score Levels: 0 - 1: Near Remission 1.3 - 2.0: Low Severity 2.3 - 4.0: Moderate Severity 4.3 - 10.0: High Severity No flowsheet data found. REVIEW OF SYSTEMS Complete ROS (HEENT, respiratory, cardiology, GI, , skin, psych, hematology, endocrine, neuro, musculoskeletal) negative except as noted in HPI. HISTORIES Past medical, surgical, family, and social history reviewed and notable changes since last visit include: Noted in HPI MEDICATIONS Current Outpatient Medications Medication Sig predniSONE (DELTASONE) 5 mg tablet 40 mg a day x1 week, then 35 mg a day x1 week, then 30 mg a day x1 week, then 25 mg a day x1 week, then 20 mg a day x1 week ergocalciferol 50,000 unit capsule (VITAMIN D2, DRISDOL) Take 1 capsule by mouth one time a week. tocilizumab (ACTEMRA ACTPEN) 162 mg/0.9 mL Inject 162mg (1 pen) under the skin one time each week. benzonatate (TESSALON PERLES) 100 mg capsule Take 1 capsule by mouth three times daily as needed for cough. omeprazole (PRILOSEC) 20 mg capsule Take 1 capsule by mouth once daily. citalopram (CELEXA) 20 mg tablet Take 20 mg by mouth once daily. psyllium husk (METAMUCIL) 3.4 gram/5.4 gram powd Take 3.4 g by mouth once daily. In 8 oz of water polyethylene glycol 3350 (MIRALAX, GLYCOLAX) 17 gram/dose powder Use as directed for Miralax / Gatorade Bowel Prep Kit Bisacodyl (DULCOLAX) 5 mg tab Use as directed for Miralax / Gatorade Bowel Prep Kit ibuprofen (MOTRIN ORAL) Take by mouth as needed. melatonin 3 mg capsules Take 3 mg by mouth. At night nystatin (MYCOSTATIN) cream Apply 1 application to affected area twice daily. buPROPion (WELLBUTRIN) 75 mg tablet Take 75 mg by mouth twice daily. ARIPiprazole (ABILIFY) 5 mg tablet Take 5 mg by mouth once daily. LORazepam (ATIVAN) 0.5 mg Take 0.5 mg by mouth once daily as needed. nystatin (MYCOSTATIN) cream Apply 1 application to affected area twice daily. Incontinence Pants, Reusable misc 5 Units continuous. metoprolol succinate ER (TOPROL XL) 25 mg 24 hr tablet Take 1 tablet by mouth once daily. QUEtiapine (SEROQUEL) 50 mg tablet Take 50 mg by mouth daily at bedtime. sertraline 100 mg tablet Take 200 mg by mouth once daily. ALLERGIES ALLERGIES No Known Allergies PHYSICAL EXAM N/A LABS Reviewed in [facility], notable for: Hospitalization labs not available for review CBC Latest Ref Rng & Units 11/18/2020 12/07/2021 08/01/2022 12/12/2022 WBC 3.70 - 11.00 k/uL 11.75(H) 6.76 13.74(H) 14.57(H) HEMOGLOBIN 11.5 - 15.5 g/dL 13.0 13.0 12.0 13.3 HEMOGLOBIN, LEATHA 11.5 - 15.5 g/dL - - - - HEMATOCRIT 36.0 - 46.0 % 40.3 39.5 37.9 40.8 PLATELETS 150 - 400 k/uL 337 328 322 361 ABS NEUT (ANC) 1.45 - 7.50 k/uL 9.24(H) 4.68 11.08(H) 12.32(H) ABS NEUT, LEATHA 1.45 - 7.50 k/uL - - - - ABS LYMP, LEATHA 1.00 - 4.00 k/uL - - - - ABS LYMPH 1.00 - 4.00 k/uL 1.75 1.45 1.78 1.36 CMP Latest Ref Rng & Units 01/18/2021 12/07/2021 08/01/2022 12/12/2022 SODIUM 136 - 144 mmol/L - 139 135(L) 138 SODIUM, LEATHA 132 - 148 mmol/L - - - - SODIUM, LEATHA 132 - 148 mmol/L - - - - POTASSIUM 3.7 - 5.1 mmol/L - 4.1 4.5 4.5 POTASSIUM, LEATHA 3.5 - 5.0 mmol/L - - - - CHLORIDE 97 - 105 mmol/L - 102 97 100 CHLORIDE, LEATHA 98 - 110 mmol/L - - - - CO2 22 - 30 mmol/L - 26 25 23 CO2, LEATHA 23.0 - 32.0 mmol/L - - - - GLUCOSE 74 - 99 mg/dL - 90 80 85 GLUCOSE, LEATHA 65 - 100 mg/dL - - - - BUN 7 - 21 mg/dL - 21 20 18 BUN, LEATHA 10 - 25 mg/dL - - - - CREATININE 0.58 - 0.96 mg/dL - 0.79 0.74 0.89 CREATININE, LEATHA 0.7 - 1.4 mg/dL - - - - CALCIUM, LEATHA 8.5 - 10.5 mg/dL - - - - CALCIUM, TOTAL 8.5 - 10.2 mg/dL - 9.4 8.9 9.5 AST 13 - 35 U/L 25 22 - - AST, LEATHA 7 - 40 U/L - - - - ALT 7 - 38 U/L 15 13 - - ALT, LEATHA 0 - 45 U/L - - - - ALKALINE PHOSPHATASE 34 - 123 U/L 110 87 - - ESR, WSR Latest Ref Rng & Units 11/27/2022 12/06/2022 12/12/2022 12/20/2022 WSR 0 - 20 mm/hr 27(H) 27(H) 29(H) 29(H) CRP Latest Ref Rng & Units 12/06/2022 12/12/2022 12/20/2022 01/16/2023 CRP <0.9 mg/dL 0.8 0.7 1.0(H) 0.7 CK Latest Ref Rng & Units 04/25/2022 CK 42 - 196 U/L 24(L) RF and CCP Latest Ref Rng & Units 05/09/2022 RHEUMATOID FACTOR <16 IU/mL 10 Hepatitis Screen Latest Ref Rng & Units 07/02/2016 01/18/2021 HEPAIGM Negative - Negative HEPBCIGM Negative - Negative HEPCABEIA Negative Negative - HBSAGR Negative - Negative Antibodies Latest Ref Rng & Units 05/09/2022 CHALINO Negative Negative Urinalysis Latest Ref Rng & Units 06/15/2013 12/07/2021 PROTEIN, URINE Negative trace 1+(A) RBC, URINE 0-3 /HPF - 0-3 /HPF IMAGING Reviewed in [facility], notable for: Hospitalization imaging not available for review ASSESSMENT Augustine Pena is a 68 year old White female with history of hypertension, hyperlipidemia, lung nodules, anxiety/depression, thoracic aortic aneurysm, thyroid goiter, OA, recurrent pancreatitis who presents to rheumatology telephone clinic for follow-up of PMR with transformation to GCA. At this time she is better from a GCA standpoint to due to the higher dose of prednisone. She is out of prednisone and needs a refill. We will send new prescription 40 mg decreasing by 5 mg a week per her request to [facility]. She unfortunately was unable to take the Actemra as she does not know how to use it. She wants someone to show her how to use it. We will attempt to coordinate with Dr. Krishnamurthy and our pharmacy team to see if we can assist her with this as transportation is a large limiting factor and she does not have the capacity for video visits by herself. 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 Start 40 mg prednisone decreasing by 5 mg every week 2. Start Actemra 162 mg injections once a week 3. Continue Prolia per PCP 4. ESR, CRP in 1 month 5. Start vitamin D weekly 50,000 units, she has them but has not started them 6. Follow-up 3 to 4 weeks telephone visit Current Immunizations Reviewed on 11/13/2013 Name Date COVID-19 vaccine, monovalent (MODERNA) 10/23/2021 , 11/24/2020 , 10/27/2020 influenza (HD-IIV4) vaccine 07/04/2022 influenza (IIV3) vaccine 05/12/2016 , 05/05/2014 influenza (IIV4) vaccine 05/25/2016 pneumococcal (PCV13) vaccine 05/24/2021 pneumococcal (PPV23) vaccine 10/02/2013 Orders this visit: [facility] on 02/13/23 predniSONE (DELTASONE) 5 mg tablet No follow-ups on file. I spent a total of 21 minutes on the date of the service which included preparing to see the patient, completing clinical documentation, counseling and educating the patient/family/caregiver, and ordering medications, tests, or procedures. This note was partially generated with the assistance of [employer] voice recognition software. An attempt was made to correct any dictation errors however there may be some incorrect words, spellings, and punctuation. Radha Willis MD Rheumatology Date: February 13, 2023 Time: 10:59 AM documented in this encounterFirelands Regional Medical Center06-29-2023 Miscellaneous Notes* Telephone Encounter - Vinita Chisholm - 02/07/2023 9:46 AM EDT Makayla Chisholm * Telephone Encounter - Mauro Krishnamurthy MD - 02/07/2023 9:42 AM EDT Ok to do * Telephone Encounter - Valentine Coffey LPN - 02/07/2023 9:28 AM EDT Makayla with [facility] calling to let you know pt was d/c from [facility] yesterday 02-06-23 and HH has been order for nursing, PT and OT. DX was pancreatitis and UTI. If pt is agreeable they plan on seeing pt tomorrow 02-08-23. Checking to see if you will follow and sign for HH. Please advise Makayla. Okay to leave a detailed message. Valentine Coffey LPN documented in this encounterFirelands Regional Medical Center06-27-2023 Miscellaneous Notes* Telephone Encounter - Lolly Stover RN - 02/05/2023 4:13 PM EDT Zoey Salgado from [facility] calling to let Dr. Krishnamurthy know that pt is currently in [facility]. She got admitted on 02/03 for pancreatitis, UTI and a problem with her kidney. They have not made a dx on thekidney problem. documented in this encounterFirelands Regional Medical Center06-27-2023 Miscellaneous Notes* Telephone Encounter - Ayden Kemp RN - 02/05/2023 11:23 AM EDT Phone and spoke with patient and the nurse Stephanie at [facility]. Patient and the nurse verbalized understanding of information given. Stephanie verbalized that the Provider at the Hospital did notwant to give the Actemra due to her symptoms and diagnosis currently. Nurse Stephanie verbalized that patient is currently on 60 mg Dosage of Steroids. Verbalized understanding of recommendation to wait to initiate Actemra until her UTI has been fully treated. Recommendation to give on discharge decrease dosage to 40 mg prednisone. Informed patient to call us on discharge and we can reschedule her appointment with Dr. Willis. Ayden Kemp R.N. * Telephone Encounter - Radha Willis MD - 02/05/2023 10:52 AM EDT Thank you! Sounds like symptoms not related to her GCA. Would wait to initiate Actemra until her UTI has been fully treated. Defer to inpatient team but recommend they assess need for stress dose steroids in the setting of long-term high-dose steroid use with current UTI. Recommend on discharge decreasing to 40 mg prednisone. If she is not out of the hospital by her upcoming appointment, please push it back 1 week. * Telephone Encounter - Ayden Kemp RN - 02/05/2023 10:23 AM EDT Phone and spoke with patient. Patient states that she was told by Dr. Willis to go to the ER if her symptoms were worsening. Patient stated that they did. She was experiencing fatigue and weakness. States that she was vomiting a lot and had blood in her urine. Patient states that she was not admitted for the GCA but was admitted for Pancreatitis, UTI and states that something is going on with her Kidneys. Patient had a CT-SCAN done on yesterday to see the level of the Pancreatitis. Patient states that she will be in the hospital for awhile. States that she bought her Actemra to the hospital, but left it out too long. Patient stated that she was told that the order to give Actemra would have to come directly from Dr. Willis. Advised patient to have Provider or nurse to give mitesh to give and fax number to send order. Ayden Kemp R.N. * Telephone Encounter - Radha Willis MD - 02/05/2023 9:57 AM EDT Please call patient and assess her symptoms. Is she currently hospitalized for the symptoms? Okay to allow [facility] to show her how to use Actemra. Do we need to give any released for this? * Telephone Encounter - Roya Lazar - 02/05/2023 9:15 AM EDT PT calling in stating she is in the hospital and did not do her injections tocilizumab (ACTEMRA ACTPEN) 162 mg/0.9 mL on Saturday, she now states it was left out to long and can not use that and is wanting to know if you would give permission to [facility] to be able to show her how to use them please assist. Patient can be reached at [phone]. Patient also states she is having worsening symptoms vomiting, blood in urine, fatigued. documented in this encounterFirelands Regional Medical Center06-26-2023 Discharge summary Author Navneet Anthony [facility] February 04, 2023 7:49am Note Date/Time February 04, 2023 5:34 am [facility] Medical Records Department [address] [place] [id number] Emergency Department Summary 02/04/23 MR#: [id number] Acct: [id number] Name: AUGUSTINE PENA GOPAL Rep #:[id number] 2 : 1955 67 From: Navneet Anthony DO PCP: Dr. Mauro Krishnamurthy MD Status:REG E R Location: ED HPI History of Present Illness Chief Complaint: Abd Pain Informant: patient and EMS Narrative Narrative: Patient is a 67-year-old female from home with past medical history of anxiety and depression as well as hypertension hyperlipidemia. She states roughly 6 months ago she was diagnosed with giant cell arteritis and started on low-dose prednisone. She states in the last 10 days she had her prednisone increased to 60 mg a day. She states this is the only new medication that she has been taking compared to her baseline meds. She states that she also mid upper abdominal pain last evening and does have a history of pancreatitis and is concerned for this once again. She also states that she has had trace amount ofblood in her urine and is also concerned about a UTI. Secondary to these concerns she called EMS and she was brought in for evaluation [facility] Medical History Acute recurrent pancreatitis Anemia Chronic pain Colon polyps Depression Essential hypertension Former smoker GCA (giant cell arteritis) GERD (gastroesophageal reflux disease) Lung nodules Morbid obesity Multiple thyroid nodules Obesity Osteoarthritis Osteoporosis Pancreatitis Poor dentition Pure hypercholesterolemia Thoracic aortic aneurysm without rupture Home Medications omeprazole 20 mg capsule,delayed release 20 mg PO DAILY gerd 10/25/16 [History Last Taken 10/16/21] calcium carbonate 600 mg-vitamin D3 10 mcg (400 unit) tablet 1 tab PO DAILY SUPPLEMENT 10/16/21 [History Last Taken 10/16/21] acetaminophen 500 mg tablet 1,000 mg PO Q6H PRN PRN Pain Score 1-10 #0 tabs 11/01/21 [Rx Last Taken Unknown] metoprolol succinate 25 mg tablet,extended release 24 hr 25 mg PO DAILY bp #90 tabs 01/08/23 [Rx Last Taken Unknown] bupropion HCl 150 mg 24 hr tablet, extended release 150 mg PO DAILY 02/04/23 [History Last Taken Unknown] prednisone 20 mg tablet 60 mg PO DAILY 02/04/23 [History Last Taken Unknown] sertraline 50 mg tablet 50 mg PO DAILY 02/04/23 [History Last Taken Unknown] tocilizumab 162 mg/0.9 mL subcutaneous pen injector (Actemra ACTPen) 162 mg subcut QWEEK 02/04/23 [History Last Taken Unknown] Allergy/AdvReac Type Severity Reaction Status Date / Time No Known Allergies Allergy Verified 02/04/23 05:09 Family History Mother Colon cancer Father Cancer Lung Sister Breast cancer Brother Cancer Lung Surgical History History of carpal tunnel surgery History of cholecystectomy History of total hysterectomy Social History household members: none Smoking Status: Former smoker alcohol intake: never substance use type: does not use caffeine: Yes Type: coffee Number of servings: 2 ROS ROS ED Constitutional Constitutional ED: Denies chills or fever(s) ENT ENT ED: Denies sore throat Cardiovascular Cardiovascular: Denies chest pain Respiratory/Chest Respiratory/Chest: Denies cough or dyspnea Gastrointestinal Gastrointestinal: Reports abdominal pain, nausea and vomiting; Denies diarrhea Genitourinary Genitourinary ED: Reports dysuria, hematuria and urinary frequency Musculoskeletal Musculoskeletal: Denies back pain or myalgias Integumentary Denies rash Neurologic Neurologic: Denies headache(s) Psychiatric Psychiatric: Reports anxiety and depression Hematologic/Lymphatic Hematologic/Lymphatic: Denies easy bleeding or easy bruising EXAM Physical Exam Const Vital Signs: 02/04/23 05:04 02/04/23 07:04 Temperature 98.3 F Temperature Source Temporal Pulse Rate 103 H 81 Respiratory Rate 18 16 Blood Pressure 170/106 H 161/96 H Blood Pressure Mean 127 117 Pulse Ox 96 97 Oxygen Delivery Method Room Air Positive well nourished, well developed and obese General Appearance ED: well developed Nutritional Appearance: obese HEENT Reports moist mucous membranes HEENT Narrative: No signs of infection in the posterior pharynx no airway edema or compromise Eyes PERRL and EOMs intact bilaterally Neck supple Resp normal respiratory effort and clear to auscultation bilaterally Cardio regular rhythm Rate: tachycardic and other Other Details: Radial pulses are plus 2 out of 4 bilaterally are equal and symmetric GI non-distended and no masses GI Narrative: Mild tenderness to palpation in the midepigastric region without voluntary guarding or rigidity. No pulsatile mass or fluid wave. Auscultation: normoactive bowel sounds Palpation: soft Back/Spine no CVA tenderness Extremity normal to inspection Neuro oriented x3 and CN's II-XII intact bilaterally Sensorium / Orientation: alert Psych Psych Narrative: Patient has a nervous/anxious affect Skin no rashes or lesions noted General Skin Exam: Negative for jaundice MDM MDM MDM Narrative Medical decision making narrative: Patient presented to the ER mildly hypertensive otherwise with stable vitals andshe does have a past medical history of this and is in pains this is not unexpected. She does have a history of previous pancreatitis and her pain is inthe midepigastric region concerning for this. However she is also reported somedysuria and hematuria concerning for UTI versus kidney stone. Her abdomen was soft and nonsurgical so I elected to start with basic laboratory studies. Patient's white count is drastically elevated at 29.9 but she has been on 60 mg of prednisone/steroid daily for almost 2 weeks which could account for the high elevation to her white blood cell count. The patient's lactic is also elevated at 3.5 and her creatinine which normally has a baseline of 0.9 is now elevated at 1.9. Indicating acute kidney injury which could be related from a possible kidney stone based on her history of hematuria and abdominal pain. Based on herAKI and creatinine clearance of 21 I cannot provide IV contrast and therefore I will get a noncontrast CT of her abdomen and pelvis looking for pancreatic inflammation as well as possible kidney stone. The patient was treated with IV fluids given 2 L. She is also medicated with morphine and Zofran Pepcid and a GI cocktail and has had improvement of pain. The patient is urine did show signs of infection therefore sent for culture and she was started on Rocephin. CT scan did show inflammation around the pancreas consistent with acute pancreatitis and this correlates with her elevated lipase and location of pain. At this time based on her UTI and acute pancreatitis [facility]. Secondary to this the case was discussed with the hospitalist who does agree to accept the patient at this time. History & Record Review Discussion w/independent historian: EMS personnel and Patient Lab Data Attestation: I reviewed the patient's lab results. Labs: Laboratory Results - last 24 hr 02/04/23 02/04/23 02/04/23 05:15 05:15 05:15 WBC 29.9 H RBC 4.70 Hgb 13.1 Hct 40.4 MCV 86.0 MCH 27.9 MCHC 32.4 RDW Std Deviation 38.8 RDW Coeff of Janey 12.5 Plt Count 384 MPV 9.0 Immature Gran % (Auto) 1.600 H Neut % (Auto) 84.0 H Lymph % (Auto) 5.8 L [place] % (Auto) 8.3 Eos % (Auto) 0.0 Baso % (Auto) 0.3 Absolute Neuts (auto) 25.1 H Absolute Lymphs (auto) 1.72 Nucleated RBC % 0 Diff Path Review December foll ESR 24 Sodium 142 Potassium 3.6 Chloride 110 H Carbon Dioxide 19.0 L Anion Gap 13 BUN 40 H Creatinine 1.88 H Estim Creat Clear Calc 21.91 Est GFR (MDRD) Af Amer 34 L Est GFR (MDRD) Non-Af 28 L BUN/Creatinine Ratio 21.3 H Glucose 127 H Lactic Acid 3.5 H* Calcium 9.1 Total Bilirubin 1.50 H Direct Bilirubin 0.28 AST 36 ALT 30 Alkaline Phosphatase 71 C-React Prot Ext Range 9.46 H Total Protein 6.9 Albumin 3.7 Globulin 3.2 Lipase 565 H Urine Color Urine Clarity Urine pH Ur Specific [place] Urine Protein Urine Glucose (UA) Urine Ketones Urine Occult Blood Urine Nitrite Urine Bilirubin Urine Urobilinogen Ur Leukocyte Esterase Urine RBC Urine WBC Ur Squamous Epith Cells Urine Bacteria Hyaline Casts Urine Mucus 02/04/23 05:45 WBC RBC Hgb Hct MCV MCH MCHC RDW Std Deviation RDW Coeff of Janey Plt Count MPV Immature Gran % (Auto) Neut % (Auto) Lymph % (Auto) [place] % (Auto) Eos % (Auto) Baso % (Auto) Absolute Neuts (auto) Absolute Lymphs (auto) Nucleated RBC % Diff Path Review ESR Sodium Potassium Chloride Carbon Dioxide Anion Gap BUN Creatinine Estim Creat Clear Calc Est GFR (MDRD) Af Amer Est GFR (MDRD) Non-Af BUN/Creatinine Ratio Glucose Lactic Acid Calcium Total Bilirubin Direct Bilirubin AST ALT Alkaline Phosphatase C-React Prot Ext Range Total Protein Albumin Globulin Lipase Urine Color Yellow Urine Clarity Clear Urine pH 5.0 Ur Specific [place] 1.030 Urine Protein 30 H Urine Glucose (UA) Normal Urine Ketones 5 H Urine Occult Blood 25 H Urine Nitrite Positive H Urine Bilirubin 1 H Urine Urobilinogen 4 H Ur Leukocyte Esterase 100 H Urine RBC 0-5 SEEN Urine WBC 10-25 SEEN Ur Squamous Epith Cells 0-5 SEEN Urine Bacteria 1+ Hyaline Casts 10-25 SEEN Urine Mucus 0 SEEN Radiography Diagnostic Testing: Clinical Impression(s) from Imaging Studies Abdomen/Pelvis CT 02/04/23 06:30 IMPRESSION: Peripancreatic inflammatory changes, correlate for acute on chronic pancreatitis. Additional chronic changes as above. Electronically Signed: Bhanu Grant MD at 7:26 EDT , Management Discussion w/another healthcare provider: Hospitalist Discharge Plan Triage Chief Complaint: Abd Pain ED Provider: Navneet Anthony Dx/Rx/DC Orders Clinical Impression: Acute kidney injury, GCA (giant cell arteritis), UTI (urinary tract infection),Acute pancreatitis Prescriptions: No Action omeprazole 20 MG capsule 20 mg PO DAILY calcium carbonate-vitamin D3 600 mg-10 mcg (400 unit) tablet 1 tab PO DAILY acetaminophen 500 mg Tablet 1,000 mg PO Q6H PRN PRN (Reason: Pain Score 1-10) Qty: 0 0RF prednisone 20 mg tablet 60 mg PO DAILY sertraline 50 mg tablet 50 mg PO DAILY bupropion HCl 150 mg tablet extended release 24 hr 150 mg PO DAILY Actemra ACTPen 162 mg/0.9 mL pen injector 162 mg SUBCUT QWEEK metoprolol succinate 25 mg tablet extended release 24 hr 25 mg PO DAILY Qty: 90 3RF Primary Care Provider: Mauro Krishnamurthy Referrals: Mauro Krishnamurthy MD [Primary Care Provider] - Disposition Disposition: Acute Care Hospital [facility] What to do if you have Problems For any increased pain, shortness of breath, bleeding, nausea or vomiting, chestpain, or any unexpected problems, contact your Primary Care Provider. Call [facility] ([phone]) or report to the closest Emergency Room. Call 911 if necessary. 02/04/23 0749 <Electronically signed by Navneet Anthony DO> Cosigner Signature (if applicable): CC: Dr. Mauro Krishnamruthy MD ~ Signed [facility] Work Phone: [phone]) 294-550905-31-2023 Miscellaneous Notes* Telephone Encounter - Lexie Pike MA - 01/09/2023 12:44 PM EDT Patient is notified of message below and verbalized understanding of instructions. Lexie Pike MA * Telephone Encounter - Radha Willis MD - 01/09/2023 11:42 AM EDT Ordered refill, please let patient know she can pick it up later today. * Telephone Encounter - Melanie Roberson [facility] - 01/09/2023 11:19 AM EDT Patient calling. She just realized that she has only a day's worth of prednisone left until she sees Dr Willis on 01/17/23. predniSONE (DELTASONE) 5 mg tablet Please refill. She said that she takes 3 per day. Preferred pharmacy: [facility], Leatha Barboza. documented in this encounterFirelands Regional Medical Center05-15-2023 Miscellaneous Notes* Telephone Encounter - Lexie Pike MA - 12/24/2022 3:32 PM EDT Patient notified of results, verbalizes understanding of instructions. Patient is interested in receiving steroid injection, but will call back at another time to schedule. Lexie Pike MA * Telephone Encounter - Lexie Pike MA - 12/24/2022 3:29 PM EDT ----- Message from Radha Willis MD sent at 12/24/2022 3:29 PM EDT ----- Please call patient to let her know her x-ray shows severe [id number] arthritis of the right knee. Her right hip looks normal. I recommend following up with orthopedics for the right knee, if she would like a steroid injection in the knee we can also do that in clinic for her. documented in this encounterFirelands Regional Medical Center05-12-2023 History of Present illness Narrative* Carol Mccullough RT(R) - 12/21/2022 2:30 PM EDT Radiology Service Progress Note PATIENT NAME: Augustine Pena DATE OF SERVICE: December 21, 2022 TIME: 3:05 PM PATIENT IDENTITY VERIFICATION COMPLETED USING TWO (2) IDENTIFIERS: Name and Date of confirmedby patient verbally. FALL SCREENING: Has the patient had 2 falls in the last year or 1 fall with injury or currently using an Ambulatory Assistive Device (Walker, Cane, Wheelchair, Crutches, etc.)? No PATIENT GENDER DATA: Female. status: : No status: NO. PATIENT RELEVANT IMPLANT DATA REVIEWED: Not Applicable RADIOLOGY DEPARTMENT: General X-ray: Exam(s) Completed: Pelvis X-Ray: Pelvis with Hip Right Lower Extremity X-Ray(s): Knee, AP / Lat / Tunne / Merchant Bilateral PERIPHERAL IV DATA: Not applicable SIGNED BY: CAROL MCCULLOUGH RT(R) December 21, 2022 3:05 PM documented in this encounterFirelands Regional Medical Center05-10-2023 History of Past illness Narrative* Problem Noted Date Diagnosed Date Resolved Date Shortness of breath 12/19/2022 02/18/2023 06/26/20 23 Ectatic thoracic aorta 09/12/202209/12 Overview: Seen on ct of chest 2020 Last echo normal. 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 Measurements - Sinus 3.6 cm. Sinotubular junction 3.0 cm. Mid ascending aorta 4.0 cm. Distal ascending aorta 4.2 cm. AAA (abdominal aortic aneurysm) 04/09/2013 Depression 06/26/2023 Last Assessment & Plan: Assessment: and anxiety, stable on rx per pt Hypertension 11/28/2016 documented as of this encounter (statuses as of 06/27/2023) [facility]05-10-[facility] History of Past illness Narrative* Problem Noted Date Diagnosed Date Resolved Date Shortness of breath 12/19/2022 02/18/2023 06/26/20 23 Ectatic thoracic aorta 09/12/202209/12 Overview: Seen on ct of chest 2020 Last echo normal. 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 Measurements - Sinus 3.6 cm. Sinotubular junction 3.0 cm. Mid ascending aorta 4.0 cm. Distal ascending aorta 4.2 cm. AAA (abdominal aortic aneurysm) 04/09/2013 Depression 06/26/2023 Last Assessment & Plan: Assessment: and anxiety, stable on rx per pt Hypertension 11/28/2016 documented as of this encounter (statuses as of 06/27/2023) [facility] History of Past illness Narrative* Problem Noted Date Diagnosed Date Resolved Date Shortness of breath 12/19/2022 02/18/2023 06/26/20 23 Ectatic thoracic aorta 09/12/202209/12 Overview: Seen on ct of chest 2020 Last echo normal. 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 Measurements - Sinus 3.6 cm. Sinotubular junction 3.0 cm. Mid ascending aorta 4.0 cm. Distal ascending aorta 4.2 cm. AAA (abdominal aortic aneurysm) 04/09/2013 Depression 06/26/2023 Last Assessment & Plan: Assessment: and anxiety, stable on rx per pt Hypertension 11/28/2016 documented as of this encounter (statuses as of 07/02/2023) [facility] History of Past illness Narrative* Problem Noted Date Diagnosed Date Resolved Date Shortness of breath 12/19/2022 02/18/2023 06/26/20 23 Ectatic thoracic aorta 09/12/202209/12 Overview: Seen on ct of chest 2020 Last echo normal. 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 Measurements - Sinus 3.6 cm. Sinotubular junction 3.0 cm. Mid ascending aorta 4.0 cm. Distal ascending aorta 4.2 cm. AAA (abdominal aortic aneurysm) 04/09/2013 Depression 06/26/2023 Last Assessment & Plan: Assessment: and anxiety, stable on rx per pt Hypertension 11/28/2016 documented as of this encounter (statuses as of 07/09/2023) [facility] of Past illness Narrative* Problem Noted Date Diagnosed Date Resolved Date Shortness of breath 12/19/2022 02/18/2023 06/26/20 23 Ectatic thoracic aorta 09/12/202209/12 Overview: Seen on ct of chest 2020 Last echo normal. 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 Measurements - Sinus 3.6 cm. Sinotubular junction 3.0 cm. Mid ascending aorta 4.0 cm. Distal ascending aorta 4.2 cm. AAA (abdominal aortic aneurysm) 04/09/2013 Depression 06/26/2023 Last Assessment & Plan: Assessment: and anxiety, stable on rx per pt Hypertension 11/28/2016 documented as of this encounter (statuses as of 07/15/2023) [facility] of Past illness Narrative* Problem Noted Date Diagnosed Date Resolved Date Shortness of breath 12/19/2022 02/18/2023 06/26/20 23 Ectatic thoracic aorta 09/12/202209/12 Overview: Seen on ct of chest 2020 Last echo normal. 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 Measurements - Sinus 3.6 cm. Sinotubular junction 3.0 cm. Mid ascending aorta 4.0 cm. Distal ascending aorta 4.2 cm. AAA (abdominal aortic aneurysm) 04/09/2013 Depression 06/26/2023 Last Assessment & Plan: Assessment: and anxiety, stable on rx per pt Hypertension 11/28/2016 documented as of this encounter (statuses as of 07/17/2023) [facility] of Past illness Narrative* Problem Noted Date Diagnosed Date Resolved Date Shortness of breath 12/19/2022 02/18/2023 06/26/20 23 Ectatic thoracic aorta 09/12/202209/12 Overview: Seen on ct of chest 2020 Last echo normal. 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 Measurements - Sinus 3.6 cm. Sinotubular junction 3.0 cm. Mid ascending aorta 4.0 cm. Distal ascending aorta 4.2 cm. AAA (abdominal aortic aneurysm) 04/09/2013 Depression 06/26/2023 Last Assessment & Plan: Assessment: and anxiety, stable on rx per pt Hypertension 11/28/2016 documented as of this encounter (statuses as of 07/19/2023) [facility]05-10-2023 History of Past illness Narrative* Problem Noted Date Diagnosed Date Resolved Date Shortness of breath 12/19/2022 02/18/2023 06/26/20 23 Ectatic thoracic aorta 09/12/202209/12 Overview: Seen on ct of chest 2020 Last echo normal. 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 Measurements - Sinus 3.6 cm. Sinotubular junction 3.0 cm. Mid ascending aorta 4.0 cm. Distal ascending aorta 4.2 cm. AAA (abdominal aortic aneurysm) 04/09/2013 Depression 06/26/2023 Last Assessment & Plan: Assessment: and anxiety, stable on rx per pt Hypertension 11/28/2016 documented as of this encounter (statuses as of 07/23/2023) [facility]05-10-2023 History of Past illness Narrative* Problem Noted Date Diagnosed Date Resolved Date Shortness of breath 12/19/2022 02/18/2023 06/26/20 23 Ectatic thoracic aorta 09/12/202209/12 Overview: Seen on ct of chest 2020 Last echo normal. 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 Measurements - Sinus 3.6 cm. Sinotubular junction 3.0 cm. Mid ascending aorta 4.0 cm. Distal ascending aorta 4.2 cm. AAA (abdominal aortic aneurysm) 04/09/2013 Depression 06/26/2023 Last Assessment & Plan: Assessment: and anxiety, stable on rx per pt Hypertension 11/28/2016 documented as of this encounter (statuses as of 08/01/2023) [facility]-10[facility] History of Past illness Narrative* Problem Noted Date Diagnosed Date Resolved Date Shortness of breath 12/19/2022 02/18/2023 06/26/20 23 Ectatic thoracic aorta 09/12/202209/12 Overview: Seen on ct of chest 2020 Last echo normal. 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 Measurements - Sinus 3.6 cm. Sinotubular junction 3.0 cm. Mid ascending aorta 4.0 cm. Distal ascending aorta 4.2 cm. AAA (abdominal aortic aneurysm) 04/09/2013 Depression 06/26/2023 Last Assessment & Plan: Assessment: and anxiety, stable on rx per pt Hypertension 11/28/2016 documented as of this encounter (statuses as of 09/13/2023) [facility]-10-2023 History of Past illness Narrative* Problem Noted Date Diagnosed Date Resolved Date Shortness of breath 12/19/2022 02/18/2023 06/26/20 23 Ectatic thoracic aorta 09/12/202209/12 Overview: Seen on ct of chest 2020 Last echo normal. 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 Measurements - Sinus 3.6 cm. Sinotubular junction 3.0 cm. Mid ascending aorta 4.0 cm. Distal ascending aorta 4.2 cm. AAA (abdominal aortic aneurysm) 04/09/2013 Depression 06/26/2023 Last Assessment & Plan: Assessment: and anxiety, stable on rx per pt Hypertension 11/28/2016 documented as of this encounter (statuses as of 09/20/2023) [facility] History of Past illness Narrative* Problem Noted Date Diagnosed Date Resolved Date Shortness of breath 12/19/2022 02/18/2023 06/26/20 23 Ectatic thoracic aorta 09/12/202209/12 Overview: Seen on ct of chest 2020 Last echo normal. 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 Measurements - Sinus 3.6 cm. Sinotubular junction 3.0 cm. Mid ascending aorta 4.0 cm. Distal ascending aorta 4.2 cm. AAA (abdominal aortic aneurysm) 04/09/2013 Depression 06/26/2023 Last Assessment & Plan: Assessment: and anxiety, stable on rx per pt Hypertension 11/28/2016 documented as of this encounter (statuses as of 09/23/2023) [facility]-10-2023 History of Past illness Narrative* Problem Noted Date Diagnosed Date Resolved Date Shortness of breath 12/19/2022 02/18/2023 06/26/20 23 Ectatic thoracic aorta 09/12/202209/12 Overview: Seen on ct of chest 2020 Last echo normal. 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 Measurements - Sinus 3.6 cm. Sinotubular junction 3.0 cm. Mid ascending aorta 4.0 cm. Distal ascending aorta 4.2 cm. AAA (abdominal aortic aneurysm) 04/09/2013 Depression 06/26/2023 Last Assessment & Plan: Assessment: and anxiety, stable on rx per pt Hypertension 11/28/2016 documented as of this encounter (statuses as of 10/09/2023) [facility] History of Past illness Narrative* Problem Noted Date Diagnosed Date Resolved Date Shortness of breath 12/19/2022 02/18/2023 06/26/20 23 Ectatic thoracic aorta 09/12/202209/12 Overview: Seen on ct of chest 2020 Last echo normal. 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 Measurements - Sinus 3.6 cm. Sinotubular junction 3.0 cm. Mid ascending aorta 4.0 cm. Distal ascending aorta 4.2 cm. AAA (abdominal aortic aneurysm) 04/09/2013 Depression 06/26/2023 Last Assessment & Plan: Assessment: and anxiety, stable on rx per pt Hypertension 11/28/2016 documented as of this encounter (statuses as of 10/28/2023) [facility]05-10-2023 History of Past illness Narrative* Problem Noted Date Diagnosed Date Resolved Date Shortness of breath 12/19/2022 02/18/2023 06/26/20 23 Ectatic thoracic aorta 09/12/202209/12 Overview: Seen on ct of chest 2020 Last echo normal. 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 Measurements - Sinus 3.6 cm. Sinotubular junction 3.0 cm. Mid ascending aorta 4.0 cm. Distal ascending aorta 4.2 cm. AAA (abdominal aortic aneurysm) 04/09/2013 Depression 06/26/2023 Last Assessment & Plan: Assessment: and anxiety, stable on rx per pt Hypertension 11/28/2016 documented as of this encounter (statuses as of 10/29/2023) [facility]05-10-[facility]23 History of Past illness Narrative* Problem Noted Date Diagnosed Date Resolved Date Shortness of breath 12/19/2022 02/18/2023 06/26/20 23 Ectatic thoracic aorta 09/12/202209/12 Overview: Seen on ct of chest 2020 Last echo normal. 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 Measurements - Sinus 3.6 cm. Sinotubular junction 3.0 cm. Mid ascending aorta 4.0 cm. Distal ascending aorta 4.2 cm. AAA (abdominal aortic aneurysm) 04/09/2013 Depression 06/26/2023 Last Assessment & Plan: Assessment: and anxiety, stable on rx per pt Hypertension 11/28/2016 documented as of this encounter (statuses as of 11/15/2023) [facility]05-10-2023 History of Past illness Narrative* Problem Noted Date Diagnosed Date Resolved Date Shortness of breath 12/19/2022 02/18/2023 06/26/20 23 Ectatic thoracic aorta 09/12/202209/12 Overview: Seen on ct of chest 2020 Last echo normal. Acute biliary pancreatitis w ithout infection or necrosis 10/22/2016 06/26/2023 Acidosis 10/11/2016 02/18/2023 04/20/2023 Cough 10/11/2016 02/18/2023 06/26/2023 Aortic root aneurysm 01/28/201209/12/ 023 Last Assessment & Plan: Assessment: under surveillance 11/2016 echo AORTA The visualized aorta is dilated. Measurements - Sinus 3.6 cm. Sinotubular junction 3.0 cm. Mid ascending aorta 4.0 cm. Distal ascending aorta 4.2 cm. AAA (abdominal aortic aneurysm) 04/09/2013 Depression 06/26/2023 Last Assessment & Plan: Assessment: and anxiety, stable on rx per pt Hypertension 11/28/2016 documented as of this encounter (statuses as of 11/22/2023) [facility]05-09-2023 Miscellaneous Notes* Telephone Encounter - Lexie Pike MA - 12/18/2022 4:10 PM EDT Patient is notified of message below and verbalized understanding of instructions. Patient made a mistake. She has been taking Prednisone 2.5 mg (5 tablets PO once daily) as prescribed on 12/07/2022. Lexie Pike MA * Telephone Encounter - Radha Willis MD - 12/18/2022 3:53 PM EDT Please call patient back and let her know that she should be on 12.5 mg of prednisone per our last appointment. It was ordered and sent in pharmacy. Since she has not gone up to the 12.5 mg of prednisone her labs would not be any different and she does NOT need to get them done on . I want her on the 12.5 mg of prednisone for 2 weeks and then get her labs done to assess for response. Thiswas the plan at the last appointment. * Telephone Encounter - Lexie Pike MA - 12/18/2022 3:46 PM EDT Patient is notified of message below and verbalized understanding of instructions. Patient is currently taking Prednisone 10 mg PO once daily. Thanks, Lexie Pike MA * Telephone Encounter - Radha Willis MD - 12/18/2022 3:31 PM EDT Please call patient to let her know yes, I would like labs done on . I have reordered them.Please confirm with her what dose of prednisone she is taking. Thank you! * Telephone Encounter - Dee Dee Dutton - 12/18/2022 3:01 PM EDT Pt has an appt this Saturday and was supposed to get labs done on however she was at the labon 12[facility]12 for another provider and they did Dr. Willis's labs. Does she need to et them done again. If so please place new orders. Please call pt to let her know. Thank you! [facility] Miscellaneous Notes* Telephone Encounter - Niesha Beckwith RN - 12/13/2022 4:00 PM EDT Patient calls and notified of results. Patient verbalizes understanding. Patient reports she went to [facility] ED yesterday as recommended and ultrasound of leg was negative and CT of chest with no significant findings. Results noted under imaging. Niesha Beckwith RN * Telephone Encounter - Mauro Krishnamurthy MD - 12/13/2022 3:39 PM EDT Let her know cbc and bmp are ok for her. documented in this encounterFire[facility] Roe [facility] December 12, 2022 11:44pm Note Date/Time December 12, 2022 5:57pm [facility] Medical Records Department [address] [place] [address] Emergency Department Summary 12/12/22 MR#: [id number] Acct: [id number] Name: AUGUSTINE PENA GOPAL Rep #:[id number] : 1955 67 From: Kartik Servin PCP: Dr. Mauro Krishnamurthy MD Status:REG E R Location: ED HPI History of Present Illness Chief Complaint: Lower Extremity Injury Narrative Narrative: 67-year-old female here with concern for shortness of breath and right lower extremity swelling and pain. Patient was told to come in by her primary care physician Dr. Krishnamurthy for possible blood clot given elevated D-dimer. [facility] Medical History Acute recurrent pancreatitis Anemia Chronic pain Colon polyps Depression Essential hypertension Former smoker GERD (gastroesophageal reflux disease) Lung nodules Morbid obesity Multiple thyroid nodules Obesity Osteoarthritis Osteoporosis Pancreatitis Poor dentition Pure hypercholesterolemia Thoracic aortic aneurysm without rupture Home Medications omeprazole 20 mg capsule,delayed release 20 mg PO DAILY gerd 10/25/16 [History Last Taken 10/16/21] aripiprazole 5 mg tablet 5 mg PO DAILY MENTAL HEALTH 10/16/21 [History Last Taken 10/16/21] calcium carbonate 600 mg-vitamin D3 10 mcg (400 unit) tablet 1 tab PO DAILY SUPPLEMENT 10/16/21 [History Last Taken 10/16/21] melatonin 3 mg tablet 3 mg PO QHS SLEEP 10/16/21 [History Last Taken 10/14/21] acetaminophen 500 mg tablet 1,000 mg PO Q6H PRN PRN Pain Score 1-10 #0 tabs 11/01/21 [Rx Last Taken Unknown] citalopram 20 mg tablet 20 mg PO DAILY 30 days #30 tabs 11/01/21 [Rx Last Taken Unknown] metoprolol succinate 25 mg tablet,extended release 24 hr 25 mg PO DAILY bp #90 tabs 03/09/22 [Rx Last Taken Unknown] Allergy/AdvReac Type Severity Reaction Status Date / Time No Known Allergies Allergy Verified 12/12/22 17:30 Family History Mother Colon cancer Father Cancer Lung Sister Breast cancer Brother Cancer Lung Surgical History History of carpal tunnel surgery History of cholecystectomy History of total hysterectomy Social History household members: none Smoking Status: Former smoker alcohol intake: never substance use type: does not use caffeine: Yes Type: coffee Number of servings: 2 ROS ROS ED ROS Narrative Constitutional: Denies fever HEENT: Denies sore throat Neck: Denies neck pain Cardiovascular: Denies chest pain, syncope Respiratory: Endorses dyspnea GI: Denies nausea vomiting or abdominal pain : Denies changes in urinary habits Musculoskeletal: Denies muscle or joint pain, endorses leg swelling Neurologic: Denies numbness weakness or loss of sensation Skin denies rash EXAM Physical Exam Narrative Exam Narrative: Nursing triage notes reviewed, Vital signs reviewed Constitutional: please see mdm HENT: MMM Eyes: Pupils equal round and reactive to light, Extraocular muscles intact Neck: No stridor, no JVD, full neck ROM Lungs: Clear to auscultation, No wheezing or rales. No increased work of breathing, no conversational dyspnea, no accessory muscle use, no nasal flaring. No respiratory distress noted Heart: Regular rate and rhythm, No murmurs, No rubs and No gallops, 2+ distal pulses (radial, femoral, posterior tibial) in all extremities Abdomen: Soft, there is no tenderness, rigidity, rebound or guarding, no obviousperitoneal signs, no palpable pulsatile abdominal masses, no auscultated abdominal bruit : No CVAT Extremities: Trace edema to right lower extremity Neuro: No focal neurological deficits, cranial nerves II through XII intact, 5/5strength in all extremities. Intact sensation to light touch in all extremities,2+ reflexes bilateral patella dens. Normal gait. No ataxia. Skin: No rash or lesions noted Const Vital Signs: 12/12/22 17:28 12/12/22 17:36 12/12/22 21:06 Temperature 98.9 F Temperature Source Oral Pulse Rate 87 73 Respiratory Rate 18 15 Respiratory Effort Short of Breath Blood Pressure 155/86 H Blood Pressure Mean 109 Pulse Ox 95 94 Oxygen Delivery Method Room Air Room Air 12/12/22 21:48 Temperature Temperature Source Pulse Rate 73 Respiratory Rate 19 H Respiratory Effort Blood Pressure Blood Pressure Mean Pulse Ox 96 Oxygen Delivery Method [facility] MDM Narrative Medical decision making narrative: Chief Complaint: Shortness of breath, leg swelling External records reviewed: D-dimer from earlier today was 1.89 MDM: Patient was hemodynamically stable, afebrile, nontoxic-appearing I considered the following differential diagnosis: PE, DVT, ACS, arrhythmia, anemia, electrolyte abnormalities I obtained a broad lab and imaging work-up to further elucidate the etiology of the patient's complaints. Labs were negative for COVID, flu, signs of volume overload or increased transmural wall pressure. EKG troponin were negative for myocardial ischemia. Patient's CTA of the chest showed no evidence of PE and DVT study was negative. Patient symptoms are unclear at this time but likely donot represent a life limiting etiology given stable vitals, negative labs and images and reassuring exam. Factors affecting care: History of hypertension, hyperlipidemia Social determinants of health: None History obtained from others: None Shared decision making: I will have a discussion with the patient and or visitors regarding risk/benefits of further testing or admission. They will be made aware of of the risk/benefits inherent in this decision they will be given the opportunity to voice understanding. Consults: None Lab Data Attestation: I reviewed the patient's lab results. Lab results narrative: EKG with normal sinus rhythm, left axis deviation, normal intervals, no STEMI CBC with leukocytosis suggestive of systemic inflammation, no anemia or thrombocytopenia noted BMP without evidence of significant electrolyte abnormalities, no anion gap, no acute kidney injury. Troponin is negative, no evidence of myocardial ischemia BNP within normal limits suggestive of no volume overload, increased transmural wall pressure or ventricular stretch COVID, flu negative Labs: Laboratory Results - last 24 hr 12/12/22 12/12/22 12/12/22 18:37 18:37 18:37 WBC 12.8 H RBC 4.41 Hgb 12.5 Hct 39.1 MCV 88.7 MCH 28.3 MCHC 32.0 RDW Std Deviation 43.0 RDW Coeff of Janey 13.3 Plt Count 297 MPV 8.3 Immature Gran % (Auto) 1.200 H Neut % (Auto) 86.9 H Lymph % (Auto) 8.6 L [place] % (Auto) 3.1 Eos % (Auto) 0.0 Baso % (Auto) 0.2 Absolute Neuts (auto) 11.1 H Absolute Lymphs (auto) 1.10 Nucleated RBC % 0 Sodium 139 Potassium 4.1 Chloride 105 Carbon Dioxide 27.0 Anion Gap 7 BUN 19 H Creatinine 0.97 Estim Creat Clear Calc 42.47 Est GFR (MDRD) Af Amer 74 Est GFR (MDRD) Non-Af 61 BUN/Creatinine Ratio 19.6 Glucose 149 H Calcium 8.9 Troponin I High Sens 11 B-Natriuretic Peptide 98.8 Radiography Diagnostic Testing: Clinical Impression(s) from Imaging Studies Venous Duplex 12/12/22 19:07 IMPRESSION: No sonographic evidence of deep venous thrombosis. Electronically Signed: Blas Woodruff MD at 20:03 EDT , Chest CTA 12/12/22 19:40 IMPRESSION: No pulmonary embolism or aortic dissection. Electronically Signed: Blas Woodruff MD at 20:22 EDT , Discharge Plan Triage Chief Complaint: Lower Extremity Injury ED Provider: Kartik Roe Dx/Rx/DC Orders Clinical Impression: SOB (shortness of breath), Leg swelling Instructions: ED Dyspnea Prescriptions: No Action omeprazole 20 MG capsule 20 mg PO DAILY melatonin 3 mg Tablet 3 mg PO QHS aripiprazole 5 mg tablet 5 mg PO DAILY calcium carbonate-vitamin D3 600 mg-10 mcg (400 unit) tablet 1 tab PO DAILY acetaminophen 500 mg Tablet 1,000 mg PO Q6H PRN PRN (Reason: Pain Score 1-10) Qty: 0 0RF citalopram 20 mg Tablet 20 mg PO DAILY 30 Days Qty: 30 0RF metoprolol succinate 25 mg tablet extended release 24 hr 25 mg PO DAILY Qty: 90 3RF Primary Care Provider: Mauro Krishnamurthy Referrals: Mauro Krishnamurthy MD [Primary Care Provider] - Activity Restrictions/Additional Instructions: Thank you for trusting us with your care today! Please take Tylenol (2 pills, 650 mg), ibuprofen (2 pills, 400 mg) every 6 hoursas needed for pain and fever control. Please return to the emergency department if your symptoms change or worsen. Specifically if you develop worsening chest pain, shortness of breath, you lose consciousness. Please return if you develop worsening swelling in your lower extremities. Please follow your primary care physician for outpatient evaluation and further treatment. Please follow with your primary care physician for further outpatient evaluationand management. Disposition Disposition: Home, Self Care What to do if you have Problems For any increased pain, shortness of breath, bleeding, nausea or vomiting, chestpain, or any unexpected problems, contact your Primary Care Provider. Call [facility] ([phone]) or report to the closest Emergency Room. Call 911 if necessary. 12/12/22 [id number] <Electronically signed by Kartik Roe DO> Cosigner Signature (if applicable): CC: Dr. Mauro Krishnamurthy MD ~ Signed [facility] Work Phone: [phone] 557-561305-03-2023 Miscellaneous Notes* Telephone Encounter - Vinita Chisholm - 12/12/2022 4:47 PM EDT Patient informed and verbalized understanding. She's worried about transportation and wanted to wait until tomorrow. I explained to her again per Dr. Krishnamurthy's message and what was discussed she needs to go to ER [place]. I advised her to call EMS in which she verbalized that's what she's going to do andgo to [facility]. Vinita Chisholm * Telephone Encounter - Mauro Krishnamurthy MD - 12/12/2022 4:41 PM EDT Let her know her clot test was positive. Her chest xray was ok. Will need to go to ER as we first discussed due to leg pain and positive d dimer. * Telephone Encounter - Maria De Jesus Simon LPN - 12/12/2022 4:35 PM EDT Patient s identity has been confirmed by name and birthdate: Yes Call received from Marisol at 435 PM to report a critical value for D-Dimer with a result of 1.89 normal range is 0.[address] Krishnamurthy was notified of the result at 436 PM sending phone message. Maria De Jesus Simon LPN documented in this encounterFirelands [facility] Center05-03-[facility]23 History of Present illness Narrative* Lorene Mata, RT(R) - 12/12/2022 3:50 PM EDT Radiology Service Progress Note PATIENT NAME: Augustine Pena DATE OF SERVICE: December 12, 2022 TIME: 3:44 PM PATIENT IDENTITY VERIFICATION COMPLETED USING TWO (2) IDENTIFIERS: Name and Date of confirmedby patient verbally. FALL SCREENING: Has the patient had 2 falls in the last year or 1 fall with injury or currently using an Ambulatory Assistive Device (Walker, Cane, Wheelchair, Crutches, etc.)? No PATIENT GENDER DATA: Female. status: : No status: NO. PATIENT RELEVANT IMPLANT DATA REVIEWED: Not Applicable RADIOLOGY DEPARTMENT: General X-ray: Exam(s) Completed: Chest X-Ray PERIPHERAL IV DATA: Not applicable SIGNED BY: RT Jacoby(R) December 12, 2022 3:44 PM documented in this encounterFirelands [facility] Medical Center05-03-2023 History of Present illness Narrative* Mauro Krishnamurthy MD - 12/12/2022 2:44 PM EDT Patient presents with: Follow Up HPI: Patient presents today for office visit for follow up. Saw Rheum on 12/07/22. See note: Neck has been hurting again and shoulders x 1 week Worse in morning with stiffness, lasts all day No hip issues On 10 mg prednisone, felt better on 12.5 mg New headache, top of head Still has conjunctivitis, is clearing up, saw ophtho, said no GCA No double vision, blind spots No weight loss or fevers Still with night sweats, has been going on with initiation of PMR Shortness of breath, started past 1 month, when walks only, no asc chest pain, no hemoptysis No abd sx, pain, no change in constipation R leg hurts constantly with known arthritis but more pain in calf on R with some swelling, left legis normal Ultrasound and Xray have not been scheduled yet. She was to do at [facility] and she has not returned their phone call to set it up. Does not have a ride that I can do it today. Will do xray here and stat labs including d dimer. I did explain if she has a positive d dimer, will needs to get transport to ER Shortness of breath seems a little better since being back on 10 mg Prednisone. Started with the cough. No current chest pain. Is productive of sputum. Some drainage. Has been going on for a few weeks. Did not do covid testing. Leg pain is better than it was. Less edema. Still uncomfortable. No redness or warmth. MEDICATIONS: Current Outpatient Medications Medication Sig predniSONE (DELTASONE) 2.5 mg tablet Take 5 tablets by mouth once daily. olopatadine (PATANOL) 0.1 % ophthalmic solution Use 1 Drop in both eyes twice daily for 30 days. omeprazole (PRILOSEC) 20 mg capsule Take 1 capsule by mouth once daily. calcium carbonate 600 mg-cholecalciferol 400 units (CALCIUM 600 + D) 600 mg-10 mcg (400 unit) tab Take 1 tablet by mouth once daily. citalopram (CELEXA) 20 mg tablet Take 20 mg by mouth once daily. psyllium husk (METAMUCIL) 3.4 gram/5.4 gram powd Take 3.4 g by mouth once daily. In 8 oz of water polyethylene glycol 3350 (MIRALAX, GLYCOLAX) 17 gram/dose powder Use as directed for Miralax / Gatorade Bowel Prep Kit Bisacodyl (DULCOLAX) 5 mg tab Use as directed for Miralax / Gatorade Bowel Prep Kit ibuprofen (MOTRIN ORAL) Take by mouth as needed. melatonin 3 mg capsules Take 3 mg by mouth. At night nystatin (MYCOSTATIN) cream Apply 1 application to affected area twice daily. buPROPion (WELLBUTRIN) 75 mg tablet Take 75 mg by mouth twice daily. ARIPiprazole (ABILIFY) 5 mg tablet Take 5 mg by mouth once daily. LORazepam (ATIVAN) 0.5 mg Take 0.5 mg by mouth once daily as needed. nystatin (MYCOSTATIN) cream Apply 1 application to affected area twice daily. Incontinence Pants, Reusable misc 5 Units continuous. metoprolol succinate ER (TOPROL XL) 25 mg 24 hr tablet Take 1 tablet by mouth once daily. sertraline 100 mg tablet Take 200 mg by mouth once daily. QUEtiapine (SEROQUEL) 50 mg tablet Take 50 mg by mouth daily at bedtime. (Patient not taking: Reported on 12/12/2022) Current Facility-Administered Medications Medication Dose Route Frequency perflutren lipid microspheres 1.3 mL in NaCl (PF) 0.9% 10 mL injection (DEFINITY) INTRAVENOUS DIRECTED PRN sodium chloride 0.9 % (flush) 10 mL (BD POSIFLUSH) 10 mL INTRAVENOUS DIRECTED PRN denosumab 60 mg injection (PROLIA) 60 mg SUBCUTANEOUS Q 6 MONTH ALLERGIES: ALLERGIES No Known Allergies PAST MEDICAL HISTORY Diagnosis Date Anxiety Depression Hypercholesteremia Hypertension Lung nodules unchanged ct 03/24 Pancreatitis 05/2019 Thoracic aortic aneurysm (HCC) 09/23 followed by cardiology Thyroid goiter needs follow up in 05/28 PAST SURGICAL HISTORY Procedure Laterality Date COLONOSCOPY 09/25/2021 repeat in 5 years COLONOSCOPY FLX DX W/COLLJ SPEC WHEN PFRMD 03/31/2014 Colonoscopy COLONOSCOPY FLX DX W/COLLJ SPEC WHEN PFRMD 04/05/2016 Colonoscopy (MAC) EGD W/O BRSH SPEC VARICIES INJ 09/25/2021 LAPS SURG CHOLECYSTECTOMY W/CHOLANGIOGRAPHY 10/25/2016 normal IOC NEUROPLASTY &/TRANSPOS MEDIAN NRV CARPAL TUNNE Right 1989 Carpal tunnel decomp NEUROPLASTY &/TRANSPOS MEDIAN NRV CARPAL TUNNE Left 12/26/2017 Left carpal tunnel release TOTAL ABDOMINAL HYSTERECT W/WO RMVL TUBE OVARY 10/01/2013 FAMILY HISTORY Problem Relation Age of Onset Colon Cancer Mother Cancer Father lung Breast Cancer Sister Cancer Brother lung Social History Tobacco Use Smoking status: Former Packs/day: 0.50 Years: 12.00 Pack years: 6.00 Types: Cigarettes Quit date: 05/29/2011 Years since quittin.5 Smokeless tobacco: Former Vaping Use Vaping Use: Never used Substance Use Topics Alcohol use: Not Currently Drug use: No Comment: marijuana only as teen Reviewed current medications, allergies, past medical history, surgical history, family history andsocial history today. REVIEW OF SYSTEMS All other reviewed and negative other than HPI. VITALS: BP 136/92 Pulse 83 Ht 154.9 cm (5' 1) Wt 113.9 kg (251 lb) LMP 06/17/2016 SpO2 97% BMI47.43 kg/m Last 4 Encounter Wt Readings: Date: Wt: 11/22/2022 0 kg () 10/08/2022 0 kg () 09/20/2022 106.1 kg (234 lb) 09/12/2022 106.1 kg (234 lb) PHYSICAL EXAMINATION: General appearance: Well appearing, alert, in no acute distress, well-hydrated, well nourished. Skin: Skin color, texture, turgor normal, no suspicious rashes or lesions Head: Normocephalic, no masses, lesions, tenderness or abnormalities Eyes: Anicteric sclera. Pupils are equally round and reactive to light. Extraocular movements are intact. Ears: External ears normal, canals clear Nose/Sinuses: Nares normal, septum midline, mucosa normal, no drainage or sinus tenderness Oropharynx: Lips, mucosa, and tongue normal, teeth and gums normal, oropharynx normal Neck: Negative findings: no adenopathy Lungs: Lungs clear to auscultation. No wheezing, rhonchi, rales Heart: RRR without murmur, gallop, or rubs. No ectopy Abdomen: Normal abdominal exam, Abdomen soft, non-tender. Bowel sounds normal. No masses, organomegaly Extremities: No deformities, tender near calf. No redness or warmth. ASSESSMENT/PLAN: 1. Bronchitis - ICD9: 490, ICD10: J40 (primary diagnosis) - Discussed risks and benefits of new medication with the patient. Advised them to call if any sideeffects or questions. Red flags for re-assessment reviewed with patient in detail. Call if symptoms worsen at all or if not better in one to two weeks Reviewed diagnosis and treatment options in detail. Questions were answered. Patient expressed understanding of treatment plan. - XR CHEST 2V FRONTAL/LAT - DOXYCYCLINE MONOHYDRATE 100 MG TABLET - BENZONATATE 100 MG CAPSULE 2. Pain of right lower extremity - ICD9: 729.5, ICD10: M79.604 - since has not gotten duplex as ordered, do stat d dimer. Will need ER eval if positive since it is too late for me to be able to arrange an outpatient one tonight and she was to have done it previously. - D-DIMER 3. Edema, unspecified type - ICD9: 782.3, ICD10: R60.9 - CBC + DIFF - BASIC METABOLIC PNL - D-DIMER Mauro Krishnamurthy MD documented in this encounterFirelands Regional Medical Center04-28-2023 Miscellaneous Notes* Telephone Encounter - Taz Mcmullen LPN - 12/07/2022 1:28 PM EDT Appt scheduled for December 12 per pt preference. Taz Mcmullen LPN * Telephone Encounter - Mauro Krishnamurthy MD - 12/07/2022 12:[address] Willis ordered duplex and xray today due to leg pain and shortness of breath. Can we get her into see one of us early next week for follow up documented in this encounterFirelands Regional Medical Center04-28-2023 History of Present illness Narrative* Radha Willis MD - 12/07/2022 11:00 AM EDT Images from the original note were not included. Rheumatology FOLLOW UP VISIT Date of Service: 12/07/2022 Patient: Augustine Pena Medical Record: [id number] Primary Care Physician: Mauro Krishnamurthy MD Last Rheumatology visit: 11/09/2022 (with Radha Willis) Chief Complaint: PMR This is a virtual visit using Audio only. It required patient-provider interaction for the medical decision making as documented below. Patient consented to this form of visit. I have communicated my name and active licensure. The patient's identity and physical location wereverified at the time of this visit. Either the patient or their legal mortician supplies sales representative has been informed of the risks and benefits of -- and alternatives to -- treatment through a remote evaluation andconsents to proceed with the evaluation remotely. INTERVAL HISTORY Neck has been hurting again and shoulders x 1 week Worse in morning with stiffness, lasts all day No hip issues On 10 mg prednisone, felt better on 12.5 mg New headache, top of head Still has conjunctivitis, is clearing up, saw ophtho, said no GCA No double vision, blind spots No weight loss or fevers Still with night sweats, has been going on with initiation of PMR Shortness of breath, started past 1 month, when walks only, no asc chest pain, no hemoptysis No abd sx, pain, no change in constipation R leg hurts constantly with known arthritis but more pain in calf on R with some swelling, left legis normal RHEUMATOLOGIC HISTORY HISTORY OF PRESENT ILLNESS 1. PMR 2. Mechanical tenderness over left TMJ Work-up: Negative temporal artery biopsy Negative temporal artery ultrasound 04/2022: CHALINO negative Negative RF CK24 ESR trend: 04/25 50 05/09 51 05/23 29 05/31 43 07/04 68 08/01 27 09/20, 5 10/17, 15 10/31 17 11/27 27 12/06 27 CRP trend 04/25, 3.9 05/09, 3.7 05/23, less than 0.3 05/31, 4.6 07/04, 7.0 08/01, 0.3 09/20, 0.3 10/17, 2.1 10/31 0.5 11/27 0.6 12/06 0.8 Treatment: Prednisone intermittently since 05/2022, high-dose 08/23/2022, 60 mg down titration due to rastafarian pain, negative biopsy then more rapid taper 10 mg a week 09/20, 15 mg 10/18 Augustine Pena is a 66 year old White female with history of hypertension, hyperlipidemia, lung nodules, anxiety/depression, thoracic aortic aneurysm, thyroid goiter, OA who presents to rheumatologyclinic for evaluation of PMR. Chart review reveals she was evaluated by her PCP 04/25 at which point she was complaining of weakness and swelling. She also endorsed pain throughout her body with stiffness. Radiographs demonstratedlarge right suprapatellar effusion, severe OA on right knee, degenerative change in cervical spine,minimal pelvic degeneration with preserved hip joints. Extensive laboratory evaluation was done which demonstrated normal CK, CRP 3.9, ESR 50, normal TSH, negative CHALINO, negative RF. She was initiatedon prednisone 10/5 10 mg as well as physical therapy. Today she presents to clinic alone. She states that for many years she has had recurrent pain in her right leg described as the whole leg starting in her back and radiating down. She also notes tenderness on the medial aspect of her right knee and subjective redness and swelling over the tibia. Sometime early to mid last year she started feeling quite poor with significant pain and stiffness in her shoulders and hips and neck. She describes all over pain that had a few hours worth of morning stiffness. She was eventually started on prednisone 10 mg in May by her PCP with significant improvement in her symptoms about 50%. She reportedly went through a few trials of steroids and every time she would discontinue her steroids, her symptoms would recur. This is also reflected in her serialinflammatory markers. She does note newer onset temporal pain within the past year on the left but cannot state when exactly it started. She thinks her temporal pain could be related to posterior neck pain. She has not had any visual changes, black spots, blurry vision, blind spots, jaw pain, jaw cl audication, tongue claudication. She has a long history of night sweats for many years that have not changed in quality however she now has sweating during the day. Rheumatologic review of systems otherwise notable for years of constipation. She denies fevers, unintentional weight loss, headaches, history of uveitis, dry eye, dry mouth, sores in her nose or mouth, malar rash, photosensitivity, difficulty swallowing, cough, congestion, chest pain, shortness of breath, nausea, vomiting, abdominal pain, blood in her urine or stool, Raynaud's, numbness/tingling. Pain Evaluation Pain Evaluation 08/23/2022 09/07/2022 09/07/2022 09/12/2022 09/20/2022 Pain Score 8 0 0 5 5 Location - - - Leg-Right - Description Sharp - - - Aching;Sharp Duration (#) - - - - - Duration (Timeframe) Years - - - Years Frequency Continuous - - - Continuous Intervention Declined - - - Declined PATIENT-ENTERED DATA PROMIS Assessments PROMIS Assessments 11/27/2016 11/27/2016 12/27/2016 Physical Health Percentile 7 % 6.55 % 15 % Mental Health Percentile 43 % 43.25 % 43 % Pain Score 3 5 4 RAPID 3 Mitchell Activities of Daily Living No Data Dress self? - Get in and out of bed? - Walk outdoors? - Wash and dry body? - Get in and out of car? - RAPID 3 Disease Activity Weighed Score Levels: 0 - 1: Near Remission 1.3 - 2.0: Low Severity 2.3 - 4.0: Moderate Severity 4.3 - 10.0: High Severity No flowsheet data found. REVIEW OF SYSTEMS Complete ROS (HEENT, respiratory, cardiology, GI, , skin, psych, hematology, endocrine, neuro, musculoskeletal) negative except as noted in HPI. HISTORIES Past medical, surgical, family, and social history reviewed and notable changes since last visit include: Noted in HPI MEDICATIONS Current Outpatient Medications Medication Sig predniSONE (DELTASONE) 2.5 mg tablet Take 5 tablets by mouth once daily. olopatadine (PATANOL) 0.1 % ophthalmic solution Use 1 Drop in both eyes twice daily for 30 days. omeprazole (PRILOSEC) 20 mg capsule Take 1 capsule by mouth once daily. calcium carbonate 600 mg-cholecalciferol 400 units (CALCIUM 600 + D) 600 mg-10 mcg (400 unit) tab Take 1 tablet by mouth once daily. citalopram (CELEXA) 20 mg tablet Take 20 mg by mouth once daily. psyllium husk (METAMUCIL) 3.4 gram/5.4 gram powd Take 3.4 g by mouth once daily. In 8 oz of water polyethylene glycol 3350 (MIRALAX, GLYCOLAX) 17 gram/dose powder Use as directed for Miralax / Gatorade Bowel Prep Kit (Patient not taking: Reported on 10/08/2022) Bisacodyl (DULCOLAX) 5 mg tab Use as directed for Miralax / Gatorade Bowel Prep Kit ibuprofen (MOTRIN ORAL) Take by mouth as needed. melatonin 3 mg capsules Take 3 mg by mouth. At night nystatin (MYCOSTATIN) cream Apply 1 application to affected area twice daily. buPROPion (WELLBUTRIN) 75 mg tablet Take 75 mg by mouth twice daily. ARIPiprazole (ABILIFY) 5 mg tablet Take 5 mg by mouth once daily. LORazepam (ATIVAN) 0.5 mg Take 0.5 mg by mouth once daily as needed. nystatin (MYCOSTATIN) cream Apply 1 application to affected area twice daily. Incontinence Pants, Reusable misc 5 Units continuous. metoprolol succinate ER (TOPROL XL) 25 mg 24 hr tablet Take 1 tablet by mouth once daily. QUEtiapine (SEROQUEL) 50 mg tablet Take 50 mg by mouth daily at bedtime. sertraline 100 mg tablet Take 200 mg by mouth once daily. ALLERGIES ALLERGIES No Known Allergies PHYSICAL EXAM N/A LABS Reviewed in [facility], notable for: ESR increased to 27, stable CRP CBC Latest Ref Rng & Units 01/20/2020 11/18/2020 12/07/2021 08/01/2022 WBC 3.70 - 11.00 k/uL 7.38 11.75(H) 6.76 13.74(H) HEMOGLOBIN 11.5 - 15.5 g/dL 11.7 13.0 13.0 12.0 HEMOGLOBIN, LEATHA 11.5 - 15.5 g/dL - - - - HEMATOCRIT 36.0 - 46.0 % 37.8 40.3 39.5 37.9 PLATELETS 150 - 400 k/uL 267 337 328 322 ABS NEUT (ANC) 1.45 - 7.50 k/uL - 9.24(H) 4.68 11.08(H) ABS NEUT, LEATHA 1.45 - 7.50 k/uL - - - - ABS LYMP, LETAHA 1.00 - 4.00 k/uL - - - - ABS LYMPH 1.00 - 4.00 k/uL - 1.75 1.45 1.78 CMP Latest Ref Rng & Units 11/18/2020 01/18/2021 12/07/2021 08/01/2022 SODIUM 136 - 144 mmol/L 138 - 139 135(L) SODIUM, LEATHA 132 - 148 mmol/L - - - - SODIUM, LEATHA 132 - 148 mmol/L - - - - POTASSIUM 3.7 - 5.1 mmol/L 4.5 - 4.1 4.5 POTASSIUM, LEATHA 3.5 - 5.0 mmol/L - - - - CHLORIDE 97 - 105 mmol/L 100 - 102 97 CHLORIDE, LEATHA 98 - 110 mmol/L - - - - CO2 22 - 30 mmol/L 24 - 26 25 CO2, LEATHA 23.0 - 32.0 mmol/L - - - - GLUCOSE 74 - 99 mg/dL 104(H) - 90 80 GLUCOSE, LEATHA 65 - 100 mg/dL - - - - BUN 7 - 21 mg/dL 16 - 21 20 BUN, LEATHA 10 - 25 mg/dL - - - - CREATININE 0.58 - 0.96 mg/dL 0.73 - 0.79 0.74 CREATININE, LEATHA 0.7 - 1.4 mg/dL - - - - CALCIUM, LEATHA 8.5 - 10.5 mg/dL - - - - CALCIUM, TOTAL 8.5 - 10.2 mg/dL 9.4 - 9.4 8.9 AST 13 - 35 U/L 50(H) 25 22 - AST, LEATHA 7 - 40 U/L - - - - ALT 7 - 38 U/L 33 15 13 - ALT, LEATHA 0 - 45 U/L - - - - ALKALINE PHOSPHATASE 34 - 123 U/L 113 110 87 - ESR, WSR Latest Ref Rng & Units 10/17/2022 10/31/2022 11/27/2022 12/06/2022 WSR 0 - 20 mm/hr 15 17 27(H) 27(H) CRP Latest Ref Rng & Units 10/17/2022 10/31/2022 11/27/2022 12/06/2022 CRP <0.9 mg/dL 2.1(H) 0.5 0.6 0.8 CK Latest Ref Rng & Units 04/25/2022 CK 42 - 196 U/L 24(L) RF and CCP Latest Ref Rng & Units 05/09/2022 RHEUMATOID FACTOR <16 IU/mL 10 Hepatitis Screen Latest Ref Rng & Units 07/02/2016 01/18/2021 HEPAIGM Negative - Negative HEPBCIGM Negative - Negative HEPCABEIA Negative Negative - HBSAGR Negative - Negative Antibodies Latest Ref Rng & Units 05/09/2022 CHALINO Negative Negative Urinalysis Latest Ref Rng & Units 06/15/2013 12/07/2021 PROTEIN, URINE Negative trace 1+(A) RBC, URINE 0-3 /HPF - 0-3 /HPF IMAGING Reviewed in Epic, notable for: No new imaging ASSESSMENT Augustine Pena is a 67 year old White female with history of hypertension, hyperlipidemia, lung nodules, anxiety/depression, thoracic aortic aneurysm, thyroid goiter, OA who presents to rheumatologytelephone clinic for follow-up of PMR. Today she is presenting with worsening inflammatory markers and symptomatology consistent with PMR recurrence. We will go back up to last stable dose of prednisone 12.5 mg and stay there until her next visit. Her eye symptoms were evaluated by ophthalmology with no concern for GCA. She has a headache on the top of her head which is not consistent with GCA. More worrisome is this new onset dyspnea on exertion. She was quite out of breath after walking across the room during her phone call and could not speak in full sentences. She additionally endorsed right calf pain and potential swelling concerning for DVT and PE. Encouraged patient to go to ER for evaluation, she declined. Will order chest x-ray and lower extremity ultrasound and fax to [facility] per her request. Instructed her that if she has any new or worsening symptoms she should beevaluated in the ER right away such as persistent shortness of breath at rest or chest pain. Encouraged her to make an appointment with PCP to assist with other etiologies of shortness of breath. With a phone encounter I cannot assess for heart failure, pneumonia, valvular disease with heart murmurs, etc. She will call and make an appointment. We will also reach out via staff message to PCP. IMPRESSIONS Diagnoses: (M79.604) Right leg pain (primary encounter diagnosis) (M79.89) Leg swelling (R06.09) Dyspnea on exertion (M35.3) PMR (polymyalgia rheumatica) (HCC) (Z79.899) Medication management (Z79.52) senior care current use of systemic steroids PLAN 1. Increase prednisone to 12.5 mg and repeat ESR, CRP in 2 weeks, ordered 2. Chest x-ray and DVT ultrasound right lower extremity sent to [facility] 3. Strongly encouraged patient to get evaluated AMPARO in the ED to rule out PE as she is acutely inflamed with active PMR which puts her at increased risk for blood clots, she declined 4. Strongly encouraged patient to make appoint with PCP to evaluate other etiologies of shortness of breath such as pneumonia as she is immunosuppressed 5. Low threshold for CT PE 6. Follow-up 2 to 3 weeks to discuss response to prednisone and next steps Current Immunizations Reviewed on 11/13/2013 Name Date COVID-19 vaccine, monovalent (MODERNA) 10/27/2020 influenza (HD-IIV4) vaccine 07/04/2022 influenza (IIV3) vaccine 05/12/2016 , 05/05/2014 influenza (IIV4) vaccine 05/25/2016 pneumococcal (PCV13) vaccine 05/24/2021 pneumococcal (PPV23) vaccine 10/02/2013 Orders this visit: [facility] on 12/07/22 XR CHEST 2V FRONTAL/LAT US DVT LOWER RIGHT SED RATE WESTERGREN C-REACTIVE PROTEIN (CRP) predniSONE (DELTASONE) 2.5 mg tablet No follow-ups on file. I spent a total of 36 minutes on the date of the service which included preparing to see the patient, [id number] patient care, completing clinical documentation, obtaining and/or reviewing separately obtained history, performing a medically appropriate examination, counseling and educating the pat ient/family/caregiver, and ordering medications, tests, or procedures. This note was partially generated with the assistance of [employer] voice recognition software. An attempt was made to correct any dictation errors however there may be some incorrect words, spellings, and punctuation. Radha Willis MD Rheumatology Date: December 07, 2022 Time: 10:59 AM documented in this encounterFirelands Regional Medical Center04-24-2023 Miscellaneous Notes* Telephone Encounter - Radha Willis MD - 12/03/2022 10:46 AM EDT Ophthalmology records: Diagnosed with early stage dry ARMD bilaterally No evidence of PMR or GCA. * Telephone Encounter - Tomasa Draper - 11/30/2022 4:05 PM EDT Received eye results from [facility] collected on 11/30/22. Scanned in for review. documented in this encounterFirelands Regional Medical Center04-21-2023 Miscellaneous Notes* Telephone Encounter - Radha Willis MD - 11/30/2022 11:38 AM EDT Will await ophthalmology eval and go from there. * Telephone Encounter - Angella Lopez - 11/28/2022 4:09 PM EDT Her symptoms are about the same, she is taking 4 tabs of prednisone 2.5 mg tabs daily, she has not seen optho yet she is going this Saturday the . * Telephone Encounter - Francine Chiu MA - 11/28/2022 4:01 PM EDT Attempted to reach patient. No answer. LMTCB. PSR please relay message as written below. Please document and route back to our pool. Thank you Francine * Telephone Encounter - Francine Chiu MA - 11/28/2022 3:59 PM EDT ----- Message from Radha Willis MD sent at 11/28/2022 3:57 PM EDT ----- Can you please call the patient to see how she is doing with her PMR symptoms (pain and morning stiffness in the shoulders and hips), what dose of prednisone she is on, and if she has seen ophthalmology yet? If she has seen ophthalmology, can we ple ase get records from them? Thanks! documented in this encounterFirelands Regional Medical Center04-13-2023 Miscellaneous Notes* Telephone Encounter - Lexie Pike MA - 11/22/2022 3:27 PM EDT Referral to OPHTHALMOLOGY faxed to Dr. Urbina as requested. Confirmation received. Patient has been notified and verbalized understanding. Lexie Pike MA * Telephone Encounter - Belle Devine - 11/22/2022 3:12 PM EDT Patient was calling back that referral is for Dr. Urbina and to be sent to Jeremy Benavides at [phone]. Thank You * Telephone Encounter - Radha Willis MD - 11/22/2022 3:06 PM EDT Perfect, thank you! * Telephone Encounter - Melanie Milner - 11/22/2022 2:57 PM EDT Please send referral to patient's land acquisition manager: [place] [address] Patient's appointment is on 11/30/22. * Telephone Encounter - Francine Chiu MA - 11/22/2022 2:18 PM EDT Patient has been notified of message below and verbalized understanding. Patient reports she has NO new onset headaches, no temporal pain, no jaw pain,no pain in her jaw when she chews, no black spots in her vision that come and go, no pain when she moves her eyes side toside, no blurriness that will not go away. Patient will get labs done and make appointment with ophthalmology doctor. Francine Chiu MA * Telephone Encounter - Radha Willis MD - 11/22/2022 2:08 PM EDT Chart reviewed, diagnosed with allergic conjunctivitis based on itching and redness. Please call patient to assess if she is having any of the following: New onset headaches, temporal pain, jaw pain,pain in her jaw when she chews, black spots in her vision that come and go, pain when she moves hereyes side to side, blurriness that will not go away. I recommend checking her inflammatory markers immediately and if elevated we will need to significantly increase her prednisone. She should make an appointment with an actual land acquisition manager AMPARO given PMR with visual changes. Hopefully this is truly just allergic conjunctivitis. * Telephone Encounter - Dee Dee Saenz [facility] - 11/22/2022 1:48 PM EDT Pt calling because she has some changes in her eyes. She eaton conjunctivitis right now. She was seen in [facility] for that. She states she was to call the office if she had any eye changes. Please call to discuss. Thank you! documented in this encounterFirelands Regional Medical Center04-13-2023 History of Present illness Narrative* Marisol Llanes APRN.[facility] - 11/22/2022 1:09 PM EDT Subjective Eye Problem Pertinent negatives include no chills, congestion, coughing, fever, headaches or sore throat. Augustine Pena is a 67 year old female who presents with both eyes with itching for the past 2 weeks. She has had some increased tearing that is intermittent-sometimes clear sometimes goopy. Denies eye pain or visual changes. Not currently wearing her glasses as they don't work for me. Has not seen her eye doctor in 2 years. Review of Systems Constitutional: Negative for chills and fever. HENT: Negative for congestion, ear pain and sore throat. Eyes: Positive for discharge. Negative for blurred vision, double vision, photophobia, pain and redness. Respiratory: Negative for cough. Neurological: Negative for headaches. BP 126/78 Pulse 83 Temp 36.6 C (97.8 F) (Tympanic) Resp 16 LMP 06/17/2016 SpO2 98% PAST MEDICAL HISTORY Diagnosis Date Anxiety Depression Hypercholesteremia Hypertension Lung nodules unchanged ct 03/24 Pancreatitis 05/2019 Thoracic aortic aneurysm (HCC) 09/23 followed by cardiology Thyroid goiter needs follow up in 05/28 PAST SURGICAL HISTORY Procedure Laterality Date COLONOSCOPY 09/25/2021 repeat in 5 years COLONOSCOPY FLX DX W/COLLJ SPEC WHEN PFRMD 03/31/2014 Colonoscopy COLONOSCOPY FLX DX W/COLLJ SPEC WHEN PFRMD 04/05/2016 Colonoscopy (MAC) EGD W/O [facility] SPEC VARICIES INJ 09/25/2021 LAPS SURG CHOLECYSTECTOMY W/CHOLANGIOGRAPHY 10/25/2016 normal IOC NEUROPLASTY &/TRANSPOS MEDIAN NRV CARPAL TUNNE Right 1989 Carpal tunnel decomp NEUROPLASTY &/TRANSPOS MEDIAN NRV CARPAL TUNNE Left 12/26/2017 Left carpal tunnel release TOTAL ABDOMINAL HYSTERECT W/WO RMVL TUBE OVARY 10/01/2013 ALLERGIES Patient has no known allergies. MEDICATIONS omeprazole (PRILOSEC) 20 mg capsule^Take 1 capsule by mouth once daily.^Disp: 30 capsule^Rfl: 11 predniSONE (DELTASONE) 2.5 mg tablet^Take 5 pills a day x2 weeks, then 4 pills a day until follow-up with rheumatology. Repeat blood work in 1 month.^Disp: 154 tablet^Rfl: 0 calcium carbonate 600 mg-cholecalciferol 400 units (CALCIUM 600 + D) 600 mg-10 mcg (400 unit) tab^Take 1 tablet by mouth once daily.^Disp: 90 tablet^Rfl: 3 citalopram (CELEXA) 20 mg tablet^Take 20 mg by mouth once daily.^Disp: ^Rfl: psyllium husk (METAMUCIL) 3.4 gram/5.4 gram powd^Take 3.4 g by mouth once daily. In 8 oz of water^Disp: 660 g^Rfl: 3 Bisacodyl (DULCOLAX) 5 mg tab^Use as directed for Miralax / Gatorade Bowel Prep Kit^Disp: 4 tablet^Rfl: 0 ibuprofen (MOTRIN ORAL)^Take by mouth as needed.^Disp: ^Rfl: melatonin 3 mg capsules^Take 3 mg by mouth. At night^Disp: ^Rfl: nystatin (MYCOSTATIN) cream^Apply 1 application to affected area twice daily.^Disp: 45 g^Rfl: 0 buPROPion (WELLBUTRIN) 75 mg tablet^Take 75 mg by mouth twice daily. ^Disp: ^Rfl: ARIPiprazole (ABILIFY) 5 mg tablet^Take 5 mg by mouth once daily. ^Disp: ^Rfl: LORazepam (ATIVAN) 0.5 mg^Take 0.5 mg by mouth once daily as needed.^Disp: ^Rfl: nystatin (MYCOSTATIN) cream^Apply 1 application to affected area twice daily.^Disp: 45 g^Rfl: 1 Incontinence Pants, Reusable misc^5 Units continuous.^Disp: 6 Each^Rfl: 2 metoprolol succinate ER (TOPROL XL) 25 mg 24 hr tablet^Take 1 tablet by mouth once daily.^Disp: ^Rfl: QUEtiapine (SEROQUEL) 50 mg tablet^Take 50 mg by mouth daily at bedtime. ^Disp: ^Rfl: sertraline 100 mg tablet^Take 200 mg by mouth once daily. ^Disp: ^Rfl: olopatadine (PATANOL) 0.1 % ophthalmic solution^Use 1 Drop in both eyes twice daily for 30 days.^Disp: 5 mL^Rfl: 0 polyethylene glycol 3350 (MIRALAX, GLYCOLAX) 17 gram/dose powder^Use as directed for Miralax / Gatorade Bowel Prep Kit^Disp: 238 g^Rfl: 0 (Patient not taking: Reported on 10/08/2022) FAMILY HISTORY Problem Relation Age of Onset Colon Cancer Mother Cancer Father lung Breast Cancer Sister Cancer Brother lung Social History Tobacco Use Smoking status: Former Packs/day: 0.50 Years: 12.00 Pack years: 6.00 Types: Cigarettes Quit date: 05/29/2011 Years since quittin.4 Smokeless tobacco: Former Vaping Use Vaping Use: Never used Substance Use Topics Alcohol use: Not Currently Drug use: No Comment: marijuana only as teen Objective Physical Exam Vitals and nursing note reviewed. Constitutional: General: She is not in acute distress. Appearance: Normal appearance. She is obese. She is not ill-appearing. HENT: Right Ear: Tympanic membrane, ear canal and external ear normal. Left Ear: Tympanic membrane, ear canal and external ear normal. Mouth/Throat: Pharynx: Uvula midline. Eyes: General: Lids are normal. Conjunctiva/sclera: Conjunctivae normal. Right eye: Right conjunctiva is not injected. No chemosis, exudate or hemorrhage. Left eye: Left conjunctiva is not injected. No chemosis, exudate or hemorrhage. Pupils: Pupils are equal, round, and reactive to light. Cardiovascular: Rate and Rhythm: Normal rate and regular rhythm. Heart sounds: Normal heart sounds. Pulmonary: Effort: Pulmonary effort is normal. No respiratory distress. Breath sounds: Normal breath sounds. No wheezing or rales. Musculoskeletal: Cervical back: Neck supple. Lymphadenopathy: Cervical: No cervical adenopathy. Skin: General: Skin is warm and dry. Findings: No erythema or rash. Neurological: Mental Status: She is alert. ASSESSMENT/PLAN: 1. Allergic conjunctivitis of both eyes - ICD9: 372.14, ICD10: H10.13 - see medication orders - course and contagiousness issues discussed, including hand washing. - Instructed to call if high fever, development of periorbital redness or swelling, eye pain, visual changes, concerns or if symptoms persist. - OLOPATADINE 0.1 % EYE DROPS - Follow-up with your eye doctor in 3-5 days if symptoms have not improved or sooner if symptoms worsen - Discussed red flags and need for immediate medical evaluation if any occur. - Discussed supportive care treatment with fluids, rest and analgesia. - Discussed expected course of illness Marisol Llanes APRN.CNP documented in this encounterFirelands [facility] Center04-13-2023 Instructions* Patient Instructions* Marisol Llanes APRN.CNP - 11/22/2022 1:09 PM EDT ASSESSMENT/PLAN: 1. Allergic conjunctivitis of both eyes - ICD9: 372.14, ICD10: H10.13 - see medication orders - course and contagiousness issues discussed, including hand washing. - Instructed to call if high fever, development of periorbital redness or swelling, eye pain, visual changes, concerns or if symptoms persist. - OLOPATADINE 0.1 % EYE DROPS - Follow-up with your eye doctor in 3-5 days if symptoms have not improved or sooner if symptoms worsen - Discussed red flags and need for immediate medical evaluation if any occur. - Discussed supportive care treatment with fluids, rest and analgesia. - Discussed expected course of illness Marisol Llanes APRN.CNP documented in this encounterFirelands Regional Medical Center04-03-2023 Miscellaneous Notes* Telephone Encounter - Maria De Jesus Simon LPN - 11/12/2022 3:10 PM EDT Patient has been identified by name and date of : Pharmacy phones for refill(s): Requested Prescriptions Pending Prescriptions Disp Refills omeprazole (PRILOSEC) 20 mg capsule 30 capsule 11 Sig: Take 1 capsule by mouth once daily. Date of last office visit in primary care: 09/12/2022, has appt 01/16/2023 Last 2 Encounter Wt Readings: Date: Wt: 10/08/2022 0 kg () 09/20/2022 106.1 kg (234 lb) Previous labs/tests for medication: Not applicable Please advise. Thank you. Maria De Jesus Simon LPN documented in this encounterFirelands Regional Medical Center03-31-2023 History of Present illness Narrative* Radha Willis MD - 11/09/2022 1:30 PM EDT Images from the original note were not included. Rheumatology FOLLOW UP VISIT Date of Service: 11/09/2022 Patient: Augustine Pena Medical Record: [id number] Primary Care Physician: Mauro Krishnamurthy MD Last Rheumatology visit: 10/18/2022 (with Radha Willis) Chief Complaint: PMR This is a virtual visit using Audio only. It required patient-provider interaction for the medical decision making as documented below. Patient consented to this form of visit. I have communicated my name and active licensure. The patient's identity and physical location wereverified at the time of this visit. Either the patient or their legal mortician supplies sales representative has been informed of the risks and benefits of -- and alternatives to -- treatment through a remote evaluation andconsents to proceed with the evaluation remotely. INTERVAL HISTORY No recurrence of shoulder pain 15 mg prednisone No new headaches, jaw pain, jaw claudication Sometimes hard to eat secondary to having no teeth, nothing new No fevers, night sweats, change in weight gain, chest pain, SOB, red hot swollen joints ROS otherwise negative RHEUMATOLOGIC HISTORY HISTORY OF PRESENT ILLNESS 1. PMR 2. Mechanical tenderness over left TMJ Work-up: Negative temporal artery biopsy Negative temporal artery ultrasound 04/2022: CHALINO negative Negative RF CK24 ESR trend: 04/25 50 05/09 51 05/23 29 05/31 43 07/04 68 08/01 27 09/20, 5 10/17, 15 10/31 17 CRP trend 04/25, 3.9 05/09, 3.7 05/23, less than 0.3 05/31, 4.6 07/04, 7.0 08/01, 0.3 09/20, 0.3 10/17, 2.1 10/31 0.5 Treatment: Prednisone intermittently since 05/2022, high-dose 08/23/2022, 60 mg down titration due to rastafarian pain, negative biopsy then more rapid taper 10 mg a week 09/20, 15 mg 10/18 Augustine Pena is a 66 year old White female with history of hypertension, hyperlipidemia, lung nodules, anxiety/depression, thoracic aortic aneurysm, thyroid goiter, OA who presents to rheumatologyclinic for evaluation of PMR. Chart review reveals she was evaluated by her PCP 04/25 at which point she was complaining of weakness and swelling. She also endorsed pain throughout her body with stiffness. Radiographs demonstratedlarge right suprapatellar effusion, severe OA on right knee, degenerative change in cervical spine,minimal pelvic degeneration with preserved hip joints. Extensive laboratory evaluation was done which demonstrated normal CK, CRP 3.9, ESR 50, normal TSH, negative CHALINO, negative RF. She was initiatedon prednisone 10/5 10 mg as well as physical therapy. Today she presents to clinic alone. She states that for many years she has had recurrent pain in her right leg described as the whole leg starting in her back and radiating down. She also notes tenderness on the medial aspect of her right knee and subjective redness and swelling over the tibia. Sometime early to mid last year she started feeling quite poor with significant pain and stiffness in her shoulders and hips and neck. She describes all over pain that had a few hours worth of morning stiffness. She was eventually started on prednisone 10 mg in May by her PCP with significant improvement in her symptoms about 50%. She reportedly went through a few trials of steroids and every time she would discontinue her steroids, her symptoms would recur. This is also reflected in her serialinflammatory markers. She does note newer onset temporal pain within the past year on the left but cannot state when exactly it started. She thinks her temporal pain could be related to posterior neck pain. She has not had any visual changes, black spots, blurry vision, blind spots, jaw pain, jaw cl audication, tongue claudication. She has a long history of night sweats for many years that have not changed in quality however she now has sweating during the day. Rheumatologic review of systems otherwise notable for years of constipation. She denies fevers, unintentional weight loss, headaches, history of uveitis, dry eye, dry mouth, sores in her nose or mouth, malar rash, photosensitivity, difficulty swallowing, cough, congestion, chest pain, shortness of breath, nausea, vomiting, abdominal pain, blood in her urine or stool, Raynaud's, numbness/tingling. Pain Evaluation Pain Evaluation 08/23/2022 09/07/2022 09/07/2022 09/12/2022 09/20/2022 Pain Score 8 0 0 5 5 Location - - - Leg-Right - Description Sharp - - - Aching;Sharp Duration (#) - - - - - Duration (Timeframe) Years - - - Years Frequency Continuous - - - Continuous Intervention Declined - - - Declined PATIENT-ENTERED DATA PROMIS Assessments PROMIS Assessments 11/27/2016 11/27/2016 12/27/2016 Physical Health Percentile 7 % 6.55 % 15 % Mental Health Percentile 43 % 43.25 % 43 % Pain Score 3 5 4 RAPID 3 [place] Activities of Daily Living No Data Dress self? - Get in and out of bed? - Walk outdoors? - Wash and dry body? - Get in and out of car? - RAPID 3 Disease Activity Weighed Score Levels: 0 - 1: Near Remission 1.3 - 2.0: Low Severity 2.3 - 4.0: Moderate Severity 4.3 - 10.0: High Severity No flowsheet data found. REVIEW OF SYSTEMS Complete ROS (HEENT, respiratory, cardiology, GI, , skin, psych, hematology, endocrine, neuro, musculoskeletal) negative except as noted in HPI. HISTORIES Past medical, surgical, family, and social history reviewed and notable changes since last visit include: Noted in HPI MEDICATIONS Current Outpatient Medications Medication Sig predniSONE (DELTASONE) 2.5 mg tablet Take 5 pills a day x2 weeks, then 4 pills a day until follow-up with rheumatology. Repeat blood work in 1 month. calcium carbonate 600 mg-cholecalciferol 400 units (CALCIUM 600 + D) 600 mg-10 mcg (400 unit) tab Take 1 tablet by mouth once daily. omeprazole (PRILOSEC) 20 mg capsule Take 1 capsule by mouth once daily. citalopram (CELEXA) 20 mg tablet Take 20 mg by mouth once daily. psyllium husk (METAMUCIL) 3.4 gram/5.4 gram powd Take 3.4 g by mouth once daily. In 8 oz of water polyethylene glycol 3350 (MIRALAX, GLYCOLAX) 17 gram/dose powder Use as directed for Miralax / Gatorade Bowel Prep Kit (Patient not taking: Reported on 10/08/2022) Bisacodyl (DULCOLAX) 5 mg tab Use as directed for Miralax / Gatorade Bowel Prep Kit ibuprofen (MOTRIN ORAL) Take by mouth as needed. melatonin 3 mg capsules Take 3 mg by mouth. At night nystatin (MYCOSTATIN) cream Apply 1 application to affected area twice daily. buPROPion (WELLBUTRIN) 75 mg tablet Take 75 mg by mouth twice daily. ARIPiprazole (ABILIFY) 5 mg tablet Take 5 mg by mouth once daily. LORazepam (ATIVAN) 0.5 mg Take 0.5 mg by mouth once daily as needed. nystatin (MYCOSTATIN) cream Apply 1 application to affected area twice daily. Incontinence Pants, Reusable misc 5 Units continuous. metoprolol succinate ER (TOPROL XL) 25 mg 24 hr tablet Take 1 tablet by mouth once daily. QUEtiapine (SEROQUEL) 50 mg tablet Take 50 mg by mouth daily at bedtime. sertraline 100 mg tablet Take 200 mg by mouth once daily. ALLERGIES ALLERGIES No Known Allergies PHYSICAL EXAM Not applicable LABS Reviewed in [facility], notable for: 10/31/2022: CRP 0.5 ESR 17 CBC Latest Ref Rng & Units 01/20/2020 11/18/2020 12/07/2021 08/01/2022 WBC 3.70 - 11.00 k/uL 7.38 11.75(H) 6.76 13.74(H) HEMOGLOBIN 11.5 - 15.5 g/dL 11.7 13.0 13.0 12.0 HEMOGLOBIN, LEATHA 11.5 - 15.5 g/dL - - - - HEMATOCRIT 36.0 - 46.0 % 37.8 40.3 39.5 37.9 PLATELETS 150 - 400 k/uL 267 337 328 322 ABS NEUT (ANC) 1.45 - 7.50 k/uL - 9.24(H) 4.68 11.08(H) ABS NEUT, LEATHA 1.45 - 7.50 k/uL - - - - ABS LYMP, LEATHA 1.00 - 4.00 k/uL - - - - ABS LYMPH 1.00 - 4.00 k/uL - 1.75 1.45 1.78 CMP Latest Ref Rng & Units 11/18/2020 01/18/2021 12/07/2021 08/01/2022 SODIUM 136 - 144 mmol/L 138 - 139 135(L) SODIUM, LEATHA 132 - 148 mmol/L - - - - SODIUM, LEATHA 132 - 148 mmol/L - - - - POTASSIUM 3.7 - 5.1 mmol/L 4.5 - 4.1 4.5 POTASSIUM, LEATHA 3.5 - 5.0 mmol/L - - - - CHLORIDE 97 - 105 mmol/L 100 - 102 97 CHLORIDE, LEATHA 98 - 110 mmol/L - - - - CO2 22 - 30 mmol/L 24 - 26 25 CO2, LEATHA 23.0 - 32.0 mmol/L - - - - GLUCOSE 74 - 99 mg/dL 104(H) - 90 80 GLUCOSE, LEATHA 65 - 100 mg/dL - - - - BUN 7 - 21 mg/dL 16 - 21 20 BUN, LEATHA 10 - 25 mg/dL - - - - CREATININE 0.58 - 0.96 mg/dL 0.73 - 0.79 0.74 CREATININE, LEATHA 0.7 - 1.4 mg/dL - - - - CALCIUM, LEATHA 8.5 - 10.5 mg/dL - - - - CALCIUM, TOTAL 8.5 - 10.2 mg/dL 9.4 - 9.4 8.9 AST 13 - 35 U/L 50(H) 25 22 - AST, LEATHA 7 - 40 U/L - - - - ALT 7 - 38 U/L 33 15 13 - ALT, LEATHA 0 - 45 U/L - - - - ALKALINE PHOSPHATASE 34 - 123 U/L 113 110 87 - ESR, WSR Latest Ref Rng & Units 08/01/2022 09/20/2022 10/17/2022 10/31/2022 WSR 0 - 20 mm/hr 27(H) 5 15 17 CRP Latest Ref Rng & Units 08/01/2022 09/20/2022 10/17/2022 10/31/2022 CRP <0.9 mg/dL 0.3 <0.3 2.1(H) 0.5 CK Latest Ref Rng & Units 04/25/2022 CK 42 - 196 U/L 24(L) RF and CCP Latest Ref Rng & Units 05/09/2022 RHEUMATOID FACTOR <16 IU/mL 10 Hepatitis Screen Latest Ref Rng & Units 07/02/2016 01/18/2021 HEPAIGM Negative - Negative HEPBCIGM Negative - Negative HEPCABEIA Negative Negative - HBSAGR Negative - Negative Antibodies Latest Ref Rng & Units 05/09/2022 CHALINO Negative Negative Urinalysis Latest Ref Rng & Units 06/15/2013 12/07/2021 PROTEIN, URINE Negative trace 1+(A) RBC, URINE 0-3 /HPF - 0-3 /HPF IMAGING Reviewed in [facility], notable for: No new imaging ASSESSMENT Augustine Pena is a 67 year old White female with history of hypertension, hyperlipidemia, lung nodules, anxiety/depression, thoracic aortic aneurysm, thyroid goiter, OA who presents to rheumatologytelephone clinic for follow-up of PMR. Her inflammatory markers are stable. She remains in remission from PMR standpoint. Still with difficulty chewing secondary to having no teeth, no concern for active GCA or progression of PMR. We willdown titrate prednisone as below and follow-up in 1 month. IMPRESSIONS Diagnoses: (M35.3) PMR (polymyalgia rheumatica) (HCC) (primary encounter diagnosis) (Z79.52) senior care current use of systemic steroids (Z79.899) Medication management PLAN 1. Decrease prednisone 12.5 mg x 2 weeks, then 10 mg x 2 weeks, then labs and follow-up in rheumatology 2. Repeat ESR, CRP in 1 month 3. Continue Prolia per PCP, continue vitamin D 4. Vaccines: Appears to be due for COVID booster and shingles, ideally will be on less than 20 mg when she gets these vaccines to improve efficacy 5. Follow-up 4 weeks with in person or telephone call Current Immunizations Reviewed on 11/13/2013 Name Date COVID-19 vaccine, monovalent (MODERNA) 10/23/2021 , 11/24/2020 , 10/27/2020 influenza (HD-IIV4) vaccine 07/04/2022 influenza (IIV3) vaccine 05/12/2016 , 05/05/2014 influenza (IIV4) vaccine 05/25/2016 pneumococcal (PCV13) vaccine 05/24/2021 pneumococcal (PPV23) vaccine 10/02/2013 Orders this visit: [facility] on 11/09/22 predniSONE (DELTASONE) 2.5 mg tablet No follow-ups on file. I spent a total of 15 minutes on the date of the service which included completing clinical documentation, obtaining and/or reviewing separately obtained history, counseling and educating the patient/family/caregiver, and ordering medications, tests, or procedures. This note was partially generated with the assistance of [employer] voice recognition software. An attempt was made to correct any dictation errors however there may be some incorrect words, spellings, and punctuation. Radha Willis MD Rheumatology Date: November 09, 2022 Time: 1:12 PM documented in this encounterFirelands [facility] Center03-29-2023 Miscellaneous Notes* Telephone Encounter - Lexie Pike MA - 11/07/2022 4:13 PM EDT Spoke with patient. Phone call appointment scheduled for 11/09/2022. Lexie Pike MA * Telephone Encounter - Radha Willis MD - 11/07/2022 3:46 PM EDT Attempted to call patient x3 for her scheduled phone call visit today. No answer. Left voicemail. Can you please call the patient and set up another appointment with her AMPARO next available. Can be in person at [place] or [facility] but she must pick up worker the phone. This is the second phone visit she has noticed. documented in this encounterFirelands [facility] Center03-23-2023 Miscellaneous Notes* Telephone Encounter - Radha Willis MD - 11/01/2022 2:59 PM EDT Can we please call her to reschedule her phone appointment at any available slot within the next week at either location? We just can't seem connect today. Can use same day slots. When you get a holdof her, please ask her if she has enough prednisone and what dose she is on (should be 15mg). * Telephone Encounter - Radha Willis MD - 11/01/2022 12:36 PM EDT Attempted to call patient for phone visit as scheduled x 3 during visit slot. LVM. Attempted to call patient again now, no answer. * Telephone Encounter - Vi Saenz [facility] - 11/01/2022 12:27 PM EDT Patient called and was returning Dr. Willis's call please advice documented in this encounterFirelands Regional Medical Center03-09-2023 History of Present illness Narrative* Radha Willis MD - 10/18/2022 11:16 AM EST Images from the original note were not included. Rheumatology FOLLOW UP VISIT Date of Service: 10/18/2022 Patient: Augustine Pena Medical Record: [id number] Primary Care Physician: Mauro Krishnamurthy MD Last Rheumatology visit: 09/20/2022 (with Radha Willis) Chief Complaint: No chief complaint on file. This is a virtual visit using Audio only. It required patient-provider interaction for the medical decision making as documented below. Patient consented to this form of visit. INTERVAL HISTORY Currently on 15 mg pred, feels back to normal, no morning stiffness Had headaches on opposite side of biopsy, on side over rastafarian, not severe Having blurriness, due to glasses check, some double vision for a few months No blind spots or black spots No jaw pain, claudication Chronic night sweats Doesn't feel like lost weight ROS otherwise negative RHEUMATOLOGIC HISTORY HISTORY OF PRESENT ILLNESS 1. PMR 2. Mechanical tenderness over left TMJ Work-up: Negative temporal artery biopsy Negative temporal artery ultrasound 04/2022: CHALINO negative Negative RF CK24 ESR trend: 04/25 50 05/09 51 05/23 29 05/31 43 07/04 68 08/01 27 09/20, 5 10/17, 15 CRP trend 04/25, 3.9 05/09, 3.7 05/23, less than 0.3 05/31, 4.6 07/04, 7.0 08/01, 0.3 09/20, 0.3 10/17, 2.1 Treatment: Prednisone intermittently since 05/2020, high-dose 08/2022, currently on 60 mg with down titration ordered Augustine Pena is a 66 year old White female with history of hypertension, hyperlipidemia, lung nodules, anxiety/depression, thoracic aortic aneurysm, thyroid goiter, OA who presents to rheumatologyclinic for evaluation of PMR. Chart review reveals she was evaluated by her PCP 04/25 at which point she was complaining of weakness and swelling. She also endorsed pain throughout her body with stiffness. Radiographs demonstratedlarge right suprapatellar effusion, severe OA on right knee, degenerative change in cervical spine,minimal pelvic degeneration with preserved hip joints. Extensive laboratory evaluation was done which demonstrated normal CK, CRP 3.9, ESR 50, normal TSH, negative CHALINO, negative RF. She was initiatedon prednisone 10/5 10 mg as well as physical therapy. Today she presents to clinic alone. She states that for many years she has had recurrent pain in her right leg described as the whole leg starting in her back and radiating down. She also notes tenderness on the medial aspect of her right knee and subjective redness and swelling over the tibia. Sometime early to mid last year she started feeling quite poor with significant pain and stiffness in her shoulders and hips and neck. She describes all over pain that had a few hours worth of morning stiffness. She was eventually started on prednisone 10 mg in May by her PCP with significant improvement in her symptoms about 50%. She reportedly went through a few trials of steroids and every time she would discontinue her steroids, her symptoms would recur. This is also reflected in her serialinflammatory markers. She does note newer onset temporal pain within the past year on the left but cannot state when exactly it started. She thinks her temporal pain could be related to posterior neck pain. She has not had any visual changes, black spots, blurry vision, blind spots, jaw pain, jaw cl audication, tongue claudication. She has a long history of night sweats for many years that have not changed in quality however she now has sweating during the day. Rheumatologic review of systems otherwise notable for years of constipation. She denies fevers, unintentional weight loss, headaches, history of uveitis, dry eye, dry mouth, sores in her nose or mouth, malar rash, photosensitivity, difficulty swallowing, cough, congestion, chest pain, shortness of breath, nausea, vomiting, abdominal pain, blood in her urine or stool, Raynaud's, numbness/tingling. Pain Evaluation Pain Evaluation 08/23/2022 09/07/2022 09/07/2022 09/12/2022 09/20/2022 Pain Score 8 0 0 5 5 Location - - - Leg-Right - Description Sharp - - - Aching;Sharp Duration (#) - - - - - Duration (Timeframe) Years - - - Years Frequency Continuous - - - Continuous Intervention Declined - - - Declined PATIENT-ENTERED DATA PROMIS Assessments PROMIS Assessments 11/27/2016 11/27/2016 12/27/2016 Physical Health Percentile 7 % 6.55 % 15 % Mental Health Percentile 43 % 43.25 % 43 % Pain Score 3 5 4 RAPID 3 [place] Activities of Daily Living No Data Dress self? - Get in and out of bed? - Walk outdoors? - Wash and dry body? - Get in and out of car? - RAPID 3 Disease Activity Weighed Score Levels: 0 - 1: Near Remission 1.3 - 2.0: Low Severity 2.3 - 4.0: Moderate Severity 4.3 - 10.0: High Severity No flowsheet data found. REVIEW OF SYSTEMS Complete ROS (HEENT, respiratory, cardiology, GI, , skin, psych, hematology, endocrine, neuro, musculoskeletal) negative except as noted in HPI. HISTORIES Past medical, surgical, family, and social history reviewed and notable changes since last visit include: Noted in HPI MEDICATIONS Current Outpatient Medications Medication Sig predniSONE (DELTASONE) 5 mg tablet 15 mg a day x2 weeks, then blood work, then rheumatology will call you with additional dosing calcium carbonate 600 mg-cholecalciferol 400 units (CALCIUM 600 + D) 600 mg-10 mcg (400 unit) tab Take 1 tablet by mouth once daily. omeprazole (PRILOSEC) 20 mg capsule Take 1 capsule by mouth once daily. citalopram (CELEXA) 20 mg tablet Take 20 mg by mouth once daily. psyllium husk (METAMUCIL) 3.4 gram/5.4 gram powd Take 3.4 g by mouth once daily. In 8 oz of water polyethylene glycol 3350 (MIRALAX, GLYCOLAX) 17 gram/dose powder Use as directed for Miralax / Gatorade Bowel Prep Kit (Patient not taking: Reported on 10/08/2022) Bisacodyl (DULCOLAX) 5 mg tab Use as directed for Miralax / Gatorade Bowel Prep Kit ibuprofen (MOTRIN ORAL) Take by mouth as needed. melatonin 3 mg capsules Take 3 mg by mouth. At night nystatin (MYCOSTATIN) cream Apply 1 application to affected area twice daily. buPROPion (WELLBUTRIN) 75 mg tablet Take 75 mg by mouth twice daily. ARIPiprazole (ABILIFY) 5 mg tablet Take 5 mg by mouth once daily. LORazepam (ATIVAN) 0.5 mg Take 0.5 mg by mouth once daily as needed. nystatin (MYCOSTATIN) cream Apply 1 application to affected area twice daily. Incontinence Pants, Reusable misc 5 Units continuous. metoprolol succinate ER (TOPROL XL) 25 mg 24 hr tablet Take 1 tablet by mouth once daily. QUEtiapine (SEROQUEL) 50 mg tablet Take 50 mg by mouth daily at bedtime. sertraline 100 mg tablet Take 200 mg by mouth once daily. ALLERGIES ALLERGIES No Known Allergies PHYSICAL EXAM N/AA LABS Reviewed in [facility], notable for: ESR 15 CRP 2.1 CBC Latest Ref Rng & Units 01/20/2020 11/18/2020 12/07/2021 08/01/2022 WBC 3.70 - 11.00 k/uL 7.38 11.75(H) 6.76 13.74(H) HEMOGLOBIN 11.5 - 15.5 g/dL 11.7 13.0 13.0 12.0 HEMOGLOBIN, LEATHA 11.5 - 15.5 g/dL - - - - HEMATOCRIT 36.0 - 46.0 % 37.8 40.3 39.5 37.9 PLATELETS 150 - 400 k/uL 267 337 328 322 ABS NEUT (ANC) 1.45 - 7.50 k/uL - 9.24(H) 4.68 11.08(H) ABS NEUT, LEATHA 1.45 - 7.50 k/uL - - - - ABS LYMP, LEATHA 1.00 - 4.00 k/uL - - - - ABS LYMPH 1.00 - 4.00 k/uL - 1.75 1.45 1.78 CMP Latest Ref Rng & Units 11/18/2020 01/18/2021 12/07/2021 08/01/2022 SODIUM 136 - 144 mmol/L 138 - 139 135(L) SODIUM, LEATHA 132 - 148 mmol/L - - - - SODIUM, LEATHA 132 - 148 mmol/L - - - - POTASSIUM 3.7 - 5.1 mmol/L 4.5 - 4.1 4.5 POTASSIUM, LEATHA 3.5 - 5.0 mmol/L - - - - CHLORIDE 97 - 105 mmol/L 100 - 102 97 CHLORIDE, LEATHA 98 - 110 mmol/L - - - - CO2 22 - 30 mmol/L 24 - 26 25 CO2, LEATHA 23.0 - 32.0 mmol/L - - - - GLUCOSE 74 - 99 mg/dL 104(H) - 90 80 GLUCOSE, LEATHA 65 - 100 mg/dL - - - - BUN 7 - 21 mg/dL 16 - 21 20 BUN, LEATHA 10 - 25 mg/dL - - - - CREATININE 0.58 - 0.96 mg/dL 0.73 - 0.79 0.74 CREATININE, LEATHA 0.7 - 1.4 mg/dL - - - - CALCIUM, LEATHA 8.5 - 10.5 mg/dL - - - - CALCIUM, TOTAL 8.5 - 10.2 mg/dL 9.4 - 9.4 8.9 AST 13 - 35 U/L 50(H) 25 22 - AST, LEATHA 7 - 40 U/L - - - - ALT 7 - 38 U/L 33 15 13 - ALT, LEATHA 0 - 45 U/L - - - - ALKALINE PHOSPHATASE 34 - 123 U/L 113 110 87 - ESR, WSR Latest Ref Rng & Units 07/04/2022 08/01/2022 09/20/2022 10/17/2022 WSR 0 - 20 mm/hr 68(H) 27(H) 5 15 CRP Latest Ref Rng & Units 07/04/2022 08/01/2022 09/20/2022 10/17/2022 CRP <0.9 mg/dL 7.0(H) 0.3 <0.3 2.1(H) CK Latest Ref Rng & Units 04/25/2022 CK 42 - 196 U/L 24(L) RF and CCP Latest Ref Rng & Units 05/09/2022 RHEUMATOID FACTOR <16 IU/mL 10 Hepatitis Screen Latest Ref Rng & Units 07/02/2016 01/18/2021 HEPAIGM Negative - Negative HEPBCIGM Negative - Negative HEPCABEIA Negative Negative - HBSAGR Negative - Negative Antibodies Latest Ref Rng & Units 05/09/2022 CHALINO Negative Negative Urinalysis Latest Ref Rng & Units 06/15/2013 12/07/2021 PROTEIN, URINE Negative trace 1+(A) RBC, URINE 0-3 /HPF - 0-3 /HPF IMAGING Reviewed in [facility], notable for: No new imaging ASSESSMENT Augustine Pena is a 67 year old White female with history of hypertension, hyperlipidemia, lung nodules, anxiety/depression, thoracic aortic aneurysm, thyroid goiter, OA who presents to rheumatologytelephone clinic for follow-up of PMR. Her inflammatory markers have gone up ever so slightly when going from 20 to 15 mg. We will keep on50 mg for 2 weeks then repeat ESR and CRP. If stable or improved we will continue with taper otherwise we will go back up to 20 mg and try again. If fails additional taper will discuss other therapies. Counseled patient to let me know immediately if her headaches get worse or if she develops new symptoms such as persistent headache, blindness, black spots in her vision, jaw pain, jaw claudication. 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 Continue 15 mg prednisone daily, new order sent to pharmacy 2. Repeat ESR, CRP in 2 weeks and decide additional taper at that time 3. Continue Prolia for PCP, continue vitamin D 4. Vaccines: Appears to be due for COVID booster and shingles, ideally will be on less than 20 mg when she gets these vaccines to improve efficacy 5. Follow-up 2 weeks with phone call Orders this visit: [facility] on 10/18/22 SED RATE ARUNAREN C-REACTIVE PROTEIN (CRP) predniSONE (DELTASONE) 5 mg tablet Return in about 2 weeks (around 11/01/2022). I spent a total of 21 minutes on the date of the service which included completing clinical documentation, counseling and educating the patient/family/caregiver, and ordering medications, tests, or procedures. This note was partially generated with the assistance of [employer] voice recognition software. An attempt was made to correct any dictation errors however there may be some incorrect words, spellings, and punctuation. Radha Willis MD Rheumatology Date: October 18, 2022 Time: 11:17 AM documented in this encounterFirelands [facility] Center02-27-[facility]23 History of Present illness Narrative* Leonidas Sun MD - 10/08/2022 2:40 PM EST Images from the original note were not included. [facility] SE[facility]ARDIOLOGY Cardiology ([address]) [address] [facility] [id number] OUTPATIENT VISIT DATE 10/09/2021 PRIMARY CARE PHYSICIAN: [place] [address] REFERRING PHYSICIAN: Mauro Krishnamurthy [address] [facility] [address] HISTORY OF PRESENT ILLNESS: Ms. Pena is a 67 year old woman with a history of dilated ascending thoracic aorta/aortic root, hypertension, and dyslipidemia who presents for routine follow-up. She was diagnosed with polymyalgia rheumatica earlier this year. She has been placed on prednisone therapy. She tells me she is down to 15 mg daily. She has had some improvement in her functional capacity but still has diffuse aches andpains. She is limited by severe diffuse arthritis. She is currently in a wheelchair with minimal mobility. She has not had symptoms of chest pain or pressure. She denies symptoms concerning for congestive heart failure including PND, orthopnea, or lower extremity edema. PAST MEDICAL HISTORY Diagnosis Date Anxiety Depression Hypercholesteremia Hypertension Lung nodules unchanged ct 03/24 Pancreatitis 05/2019 Thoracic aortic aneurysm (HCC) 09/23 followed by cardiology Thyroid goiter needs follow up in 05/28 PAST SURGICAL HISTORY Procedure Laterality Date COLONOSCOPY 09/25/2021 repeat in 5 years COLONOSCOPY FLX DX W/COLLJ SPEC WHEN PFRMD 03/31/2014 Colonoscopy COLONOSCOPY FLX DX W/COLLJ SPEC WHEN PFRMD 04/05/2016 Colonoscopy (MAC) EGD W/O [facility] SPEC VARICIES INJ 09/25/2021 LAPS SURG CHOLECYSTECTOMY W/CHOLANGIOGRAPHY 10/25/2016 normal IOC NEUROPLASTY &/TRANSPOS MEDIAN NRV CARPAL TUNNE Right 1989 Carpal tunnel decomp NEUROPLASTY &/TRANSPOS MEDIAN NRV CARPAL TUNNE Left 12/26/2017 Left carpal tunnel release TOTAL ABDOMINAL HYSTERECT W/WO RMVL TUBE OVARY 10/01/2013 SOCIAL HISTORY Social History Tobacco Use Smoking status: Former Packs/day: 0.50 Years: 12.00 Pack years: 6.00 Types: Cigarettes Quit date: 05/29/2011 Years since quittin.3 Smokeless tobacco: Former Vaping Use Vaping Use: Never used Substance Use Topics Alcohol use: Not Currently Drug use: No Comment: marijuana only as teen FAMILY HISTORY Problem Relation Age of Onset Colon Cancer Mother Cancer Father lung Breast Cancer Sister Cancer Brother lung ALLERGIES: ALLERGIES No Known Allergies MEDICATIONS: predniSONE (DELTASONE) 10 mg tablet^40 mg a day x1 week, then 30 mg a day x1 week, then 20 mg a dayx1 week, then 15 mg a day until rheumatology follow- up^Disp: 90 tablet^Rfl: 0 calcium carbonate 600 mg-cholecalciferol 400 units (CALCIUM 600 + D) 600 mg-10 mcg (400 unit) tab^Take 1 tablet by mouth once daily.^Disp: 90 tablet^Rfl: 3 omeprazole (PRILOSEC) 20 mg capsule^Take 1 capsule by mouth once daily.^Disp: 30 capsule^Rfl: 11 citalopram (CELEXA) 20 mg tablet^Take 20 mg by mouth once daily.^Disp: ^Rfl: psyllium husk (METAMUCIL) 3.4 gram/5.4 gram powd^Take 3.4 g by mouth once daily. In 8 oz of water^Disp: 660 g^Rfl: 3 Bisacodyl (DULCOLAX) 5 mg tab^Use as directed for Miralax / Gatorade Bowel Prep Kit^Disp: 4 tablet^Rfl: 0 ibuprofen (MOTRIN ORAL)^Take by mouth as needed.^Disp: ^Rfl: melatonin 3 mg capsules^Take 3 mg by mouth. At night^Disp: ^Rfl: nystatin (MYCOSTATIN) cream^Apply 1 application to affected area twice daily.^Disp: 45 g^Rfl: 0 buPROPion (WELLBUTRIN) 75 mg tablet^Take 75 mg by mouth twice daily. ^Disp: ^Rfl: ARIPiprazole (ABILIFY) 5 mg tablet^Take 5 mg by mouth once daily. ^Disp: ^Rfl: LORazepam (ATIVAN) 0.5 mg^Take 0.5 mg by mouth once daily as needed.^Disp: ^Rfl: nystatin (MYCOSTATIN) cream^Apply 1 application to affected area twice daily.^Disp: 45 g^Rfl: 1 Incontinence Pants, Reusable misc^5 Units continuous.^Disp: 6 Each^Rfl: 2 metoprolol succinate ER (TOPROL XL) 25 mg 24 hr tablet^Take 1 tablet by mouth once daily.^Disp: ^Rfl: QUEtiapine (SEROQUEL) 50 mg tablet^Take 50 mg by mouth daily at bedtime. ^Disp: ^Rfl: sertraline 100 mg tablet^Take 200 mg by mouth once daily. ^Disp: ^Rfl: polyethylene glycol 3350 (MIRALAX, GLYCOLAX) 17 gram/dose powder^Use as directed for Miralax / Gatorade Bowel Prep Kit^Disp: 238 g^Rfl: 0 (Patient not taking: Reported on 10/08/2022) REVIEW OF SYSTEMS: Review of Systems Constitutional: Negative for chills, fever, malaise/fatigue and weight loss. HENT: Negative for hearing loss and sore throat. Eyes: Negative for blurred vision and double vision. Respiratory: Negative. Cardiovascular: Negative. Gastrointestinal: Negative. Genitourinary: Negative for dysuria, frequency, hematuria and urgency. Musculoskeletal: Negative. Skin: Negative. Neurological: Negative for dizziness, seizures, loss of consciousness, weakness and headaches. Endo/Heme/Allergies: Negative for environmental allergies. Does not bruise/bleed easily. Psychiatric/Behavioral: Negative for depression. PHYSICAL EXAMINATION: BP 136/82 (BP Site: Right Arm, BP Position: Sitting, BP Cuff Size: Large Adult) Pulse 77 LMP 06/17/2016 SpO2 99% General: Somewhat obese woman sitting appears comfortable no apparent distress. She is alert and oriented x3 HEENT: Carotid upstrokes are brisk without bruits no JVD appreciated. Pulmonary: Lungs are clear no rales, wheezes, rhonchi Cardiovascular: Normal S1, S2 with regular rate and rhythm. No murmurs, rubs, or gallops Extremities: Warm, well-perfused, no lower extremity edema. Dorsalis pedis posterior tibial pulses are 1-2+ and symmetric. CARDIOVASCULAR MEDICINE TESTING: ECG in the office 04/10/2021: Normal sinus rhythm with left axis deviation. Q waves noted in leads III and aVF. Poor R wave progression anteriorly Echocardiogram 11/28/16 CONCLUSIONS: - Exam indication: Thoracic aneurysm, annual review - The left ventricle is normal in size. Left ventricular systolic function is normal. EF = 67 5% (2D biplane) Grade I left ventricular diastolicdysfunction. - The right ventricle is normal in size. Right ventricular systolic function is normal. - The left atrial cavity is mildly dilated. - 3D images not able to be obtained d/t probe. - No significant valvular abnormalities - Exam was compared with the prior echocardiographic exam performed on 10/28/2015. No significant changes in aortic dilatation. CT Chest 04/24/2021: Heart, pericardium, and thoracic vessels: The main pulmonary arteries are normal in caliber. There is ectatic ascending aorta measuring 4.1 cm in diameter, unchanged. The cardiac chambers are normal in size. No coronary artery atherosclerotic calcifications are noted, although the study is not optimized for coronary assessment. No pericardial effusion or thickening. IMPRESSION: Remote granulomatous disease in the chest and abdomen. Ectatic ascending aorta. CT Scan 05/13/2014 Vascular calcifications noted. Mild fusiform aneurysmal dilatation of ascending thoracic aorta again noted: 4.1 cm AP x 4.0 cm transverse diameter, stable. Mid aortic arch: 2.7 cm. Mid descending thoracic aorta: 2.4 x 2.4 cm. Heart enlarged. No pericardial fluid. IMPRESSION: Ms. Pena is a 66 year old woman with a history of thoracic aortic aneurysm hypertension, dyslipidemia who presents for routine follow-up PLAN AND RECOMMENDATIONS: 1. Aneurysm of ascending aorta without rupture (HCC) - ICD9: 441.2, ICD10: I71.21 (primary diagnosis) Repeat echocardiogram for assessment of aortic root and ascending aorta. May need repeat CT scan pending outcome of echocardiographic results. - ECHO - PERFLUTREN LIPID MICROSPHERES 1.1 MG/ML INJECTION IN NS 10 ML - SODIUM CHLORIDE 0.9 % (FLUSH) INJECTION SYRINGE 2. Essential hypertension - ICD9: 401.9, ICD10: I10 Well-controlled on current regimen. 3. Hypercholesteremia - ICD9: 272.0, ICD10: E78.00 Intolerant to statin therapy due to history of recurrent pancreatitis. Leonidas Sun MD documented in this encounterFire[facility]02-27-2023 Instructions* Patient Instructions* Leonidas Sun MD - 10/08/2022 2:34 PM EST We will schedule you for an echocardiogram documented in this encounterFirelands Regional [facility] Center02-09-2023 Miscellaneous Notes* Telephone Encounter - Radha Willis MD - 09/20/2022 3:44 PM EST Ordered as standing labs going forward as she will need them monthly * Telephone Encounter - Pina Harris - 09/20/2022 3:19 PM EST Hello, This patient needs the other set of C-Reactive Protein and the Sed Rate Westergren. They both were linked to her appointment for today. Thank you, Pina documented in this encounterFirelands [facility] Center02-01-2023 History of Past illness Narrative* Problem Noted Date Resolved Date Ectatic thoracic aorta 09/12/2022 Overview: Seen on ct of chest 2020 Last echo normal. 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 Measurements - Sinus 3.6 cm. Sinotubular junction 3.0 cm. Mid ascending aorta 4.0 cm. Distal ascending aorta 4.2 cm. AAA (abdominal aortic aneurysm) 04/09/2013 Hypertension 11/28/2016 documented as of this encounter (statuses as of 09/12/2022) [facility]02[facility] History of Past illness Narrative* Problem Noted Date Resolved Date Ectatic thoracic aorta 09/12/2022 3 Overview: Seen on ct of chest 2020 Last echo normal. 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 Measurements - Sinus 3.6 cm. Sinotubular junction 3.0 cm. Mid ascending aorta 4.0 cm. Distal ascending aorta 4.2 cm. AAA (abdominal aortic aneurysm) 04/09/2013 Hypertension 11/28/2016 documented as of this encounter (statuses as of 09/20/2022) [facility] History of Past illness Narrative* Problem Noted Date Resolved Date Ectatic thoracic aorta 09/12/2022 3 Overview: Seen on ct of chest 2020 Last echo normal. 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 Measurements - Sinus 3.6 cm. Sinotubular junction 3.0 cm. Mid ascending aorta 4.0 cm. Distal ascending aorta 4.2 cm. AAA (abdominal aortic aneurysm) 04/09/2013 Hypertension 11/28/2016 documented as of this encounter (statuses as of 10/09/2022) [facility] History of Past illness Narrative* Problem Noted Date Resolved Date Ectatic thoracic aorta 09/12/2022 Overview: Seen on ct of chest 2020 Last echo normal. 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 Measurements - Sinus 3.6 cm. Sinotubular junction 3.0 cm. Mid ascending aorta 4.0 cm. Distal ascending aorta 4.2 cm. AAA (abdominal aortic aneurysm) 04/09/2013 Hypertension 11/28/2016 documented as of this encounter (statuses as of 10/18/2022) [facility] History of Past illness Narrative* Problem Noted Date Resolved Date Ectatic thoracic aorta 09/12/2022 3 Overview: Seen on ct of chest 2020 Last echo normal. 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 Measurements - Sinus 3.6 cm. Sinotubular junction 3.0 cm. Mid ascending aorta 4.0 cm. Distal ascending aorta 4.2 cm. AAA (abdominal aortic aneurysm) 04/09/2013 Hypertension 11/28/2016 documented as of this encounter (statuses as of 11/01/2022) [facility] of Past illness Narrative* Problem Noted Date Resolved Date Ectatic thoracic aorta 09/12/2022 Overview: Seen on ct of chest 2020 Last echo normal. 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 Measurements - Sinus 3.6 cm. Sinotubular junction 3.0 cm. Mid ascending aorta 4.0 cm. Distal ascending aorta 4.2 cm. AAA (abdominal aortic aneurysm) 04/09/2013 Hypertension 11/28/2016 documented as of this encounter (statuses as of 11/07/2022) [facility] of Past illness Narrative* Problem Noted Date Resolved Date Ectatic thoracic aorta 09/12/2022 Overview: Seen on ct of chest 2020 Last echo normal. 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 Measurements - Sinus 3.6 cm. Sinotubular junction 3.0 cm. Mid ascending aorta 4.0 cm. Distal ascending aorta 4.2 cm. AAA (abdominal aortic aneurysm) 04/09/2013 Hypertension 11/28/2016 documented as of this encounter (statuses as of 11/09/2022) [facility] of Past illness Narrative* Problem Noted Date Resolved Date Ectatic thoracic aorta 09/12/2022 Overview: Seen on ct of chest 2020 Last echo normal. 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 Measurements - Sinus 3.6 cm. Sinotubular junction 3.0 cm. Mid ascending aorta 4.0 cm. Distal ascending aorta 4.2 cm. AAA (abdominal aortic aneurysm) 04/09/2013 Hypertension 11/28/2016 documented as of this encounter (statuses as of 11/13/2022) [facility] of Past illness Narrative* Problem Noted Date Resolved Date Ectatic thoracic aorta 09/12/2022 Overview: Seen on ct of chest 2020 Last echo normal. 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 Measurements - Sinus 3.6 cm. Sinotubular junction 3.0 cm. Mid ascending aorta 4.0 cm. Distal ascending aorta 4.2 cm. AAA (abdominal aortic aneurysm) 04/09/2013 Hypertension 11/28/2016 documented as of this encounter (statuses as of 11/23/2022) [facility] of Past illness Narrative* Problem Noted Date Resolved Date Ectatic thoracic aorta 09/12/2022 Overview: Seen on ct of chest 2020 Last echo normal. 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 Measurements - Sinus 3.6 cm. Sinotubular junction 3.0 cm. Mid ascending aorta 4.0 cm. Distal ascending aorta 4.2 cm. AAA (abdominal aortic aneurysm) 04/09/2013 Hypertension 11/28/2016 documented as of this encounter (statuses as of 11/23/2022) [facility] of Past illness Narrative* Problem Noted Date Resolved Date Ectatic thoracic aorta 09/12/2022 3 Overview: Seen on ct of chest 2020 Last echo normal. 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 Measurements - Sinus 3.6 cm. Sinotubular junction 3.0 cm. Mid ascending aorta 4.0 cm. Distal ascending aorta 4.2 cm. AAA (abdominal aortic aneurysm) 04/09/2013 Hypertension 11/28/2016 documented as of this encounter (statuses as of 11/30/2022) [facility] of Past illness Narrative* Problem Noted Date Resolved Date Ectatic thoracic aorta 09/12/2022 Overview: Seen on ct of chest 2020 Last echo normal. 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 Measurements - Sinus 3.6 cm. Sinotubular junction 3.0 cm. Mid ascending aorta 4.0 cm. Distal ascending aorta 4.2 cm. AAA (abdominal aortic aneurysm) 04/09/2013 Hypertension 11/28/2016 documented as of this encounter (statuses as of 12/03/2022) [facility] of Past illness Narrative* Problem Noted Date Resolved Date Ectatic thoracic aorta 09/12/2022 Overview: Seen on ct of chest 2020 Last echo normal. 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 Measurements - Sinus 3.6 cm. Sinotubular junction 3.0 cm. Mid ascending aorta 4.0 cm. Distal ascending aorta 4.2 cm. AAA (abdominal aortic aneurysm) 04/09/2013 Hypertension 11/28/2016 documented as of this encounter (statuses as of 12/07/2022) [facility] of [facility] illness Narrative* Problem Noted Date Resolved Date Ectatic thoracic aorta 09/12/2022 Overview: Seen on ct of chest 2020 Last echo normal. 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 Measurements - Sinus 3.6 cm. Sinotubular junction 3.0 cm. Mid ascending aorta 4.0 cm. Distal ascending aorta 4.2 cm. AAA (abdominal aortic aneurysm) 04/09/2013 Hypertension 11/28/2016 documented as of this encounter (statuses as of 12/07/2022) [facility] Past illness Narrative* Problem Noted Date Resolved Date Ectatic thoracic aorta 09/12/2022 Overview: Seen on ct of chest 2020 Last echo normal. 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 Measurements - Sinus 3.6 cm. Sinotubular junction 3.0 cm. Mid ascending aorta 4.0 cm. Distal ascending aorta 4.2 cm. AAA (abdominal aortic aneurysm) 04/09/2013 Hypertension 11/28/2016 documented as of this encounter (statuses as of 12/13/2022) [facility]02[facility]01[facility] History of Past illness Narrative* Problem Noted Date Resolved Date Ectatic thoracic aorta 09/12/2022 Overview: Seen on ct of chest 2020 Last echo normal. 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 Measurements - Sinus 3.6 cm. Sinotubular junction 3.0 cm. Mid ascending aorta 4.0 cm. Distal ascending aorta 4.2 cm. AAA (abdominal aortic aneurysm) 04/09/2013 Hypertension 11/28/2016 documented as of this encounter (statuses as of 12/13/2022) [facility]02-01-2023 History of Past illness Narrative* Problem Noted Date Resolved Date Ectatic thoracic aorta 09/12/2022 Overview: Seen on ct of chest 2020 Last echo normal. 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 Measurements - Sinus 3.6 cm. Sinotubular junction 3.0 cm. Mid ascending aorta 4.0 cm. Distal ascending aorta 4.2 cm. AAA (abdominal aortic aneurysm) 04/09/2013 Hypertension 11/28/2016 documented as of this encounter (statuses as of 12/15/2022) [facility] History of Past illness Narrative* Problem Noted Date Resolved Date Ectatic thoracic aorta 09/12/2022 Overview: Seen on ct of chest 2020 Last echo normal. 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 Measurements - Sinus 3.6 cm. Sinotubular junction 3.0 cm. Mid ascending aorta 4.0 cm. Distal ascending aorta 4.2 cm. AAA (abdominal aortic aneurysm) 04/09/2013 Hypertension 11/28/2016 documented as of this encounter (statuses as of 12/19/2022) [facility] History of Past illness Narrative* Problem Noted Date Resolved Date Ectatic thoracic aorta 09/12/2022 Overview: Seen on ct of chest 2020 Last echo normal. 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 Measurements - Sinus 3.6 cm. Sinotubular junction 3.0 cm. Mid ascending aorta 4.0 cm. Distal ascending aorta 4.2 cm. AAA (abdominal aortic aneurysm) 04/09/2013 Hypertension 11/28/2016 documented as of this encounter (statuses as of 12/25/2022) [facility] History of Past illness Narrative* Problem Noted Date Resolved Date Ectatic thoracic aorta 09/12/2022 Overview: Seen on ct of chest 2020 Last echo normal. 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 Measurements - Sinus 3.6 cm. Sinotubular junction 3.0 cm. Mid ascending aorta 4.0 cm. Distal ascending aorta 4.2 cm. AAA (abdominal aortic aneurysm) 04/09/2013 Hypertension 11/28/2016 documented as of this encounter (statuses as of 01/09/2023) [facility] History of Past illness Narrative* Problem Noted Date Resolved Date Ectatic thoracic aorta 09/12/2022 3 Overview: Seen on ct of chest 2020 Last echo normal. 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 Measurements - Sinus 3.6 cm. Sinotubular junction 3.0 cm. Mid ascending aorta 4.0 cm. Distal ascending aorta 4.2 cm. AAA (abdominal aortic aneurysm) 04/09/2013 Hypertension 11/28/2016 documented as of this encounter (statuses as of 02/05/2023) [facility] History of Past illness Narrative* Problem Noted Date Resolved Date Ectatic thoracic aorta 09/12/2022 3 Overview: Seen on ct of chest 2020 Last echo normal. 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 Measurements - Sinus 3.6 cm. Sinotubular junction 3.0 cm. Mid ascending aorta 4.0 cm. Distal ascending aorta 4.2 cm. AAA (abdominal aortic aneurysm) 04/09/2013 Hypertension 11/28/2016 documented as of this encounter (statuses as of 02/06/2023) [facility] History of Past illness Narrative* Problem Noted Date Resolved Date Ectatic thoracic aorta 09/12/2022 3 Overview: Seen on ct of chest 2020 Last echo normal. 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 Measurements - Sinus 3.6 cm. Sinotubular junction 3.0 cm. Mid ascending aorta 4.0 cm. Distal ascending aorta 4.2 cm. AAA (abdominal aortic aneurysm) 04/09/2013 Hypertension 11/28/2016 documented as of this encounter (statuses as of 02/07/2023) [facility] History of Past illness Narrative* Problem Noted Date Resolved Date Ectatic thoracic aorta 09/12/2022 Overview: Seen on ct of chest 2020 Last echo normal. 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 Measurements - Sinus 3.6 cm. Sinotubular junction 3.0 cm. Mid ascending aorta 4.0 cm. Distal ascending aorta 4.2 cm. AAA (abdominal aortic aneurysm) 04/09/2013 Hypertension 11/28/2016 documented as of this encounter (statuses as of 02/13/2023) [facility] History of Past illness Narrative* Problem Noted Date Resolved Date Ectatic thoracic aorta 09/12/2022 Overview: Seen on ct of chest 2020 Last echo normal. 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 Measurements - Sinus 3.6 cm. Sinotubular junction 3.0 cm. Mid ascending aorta 4.0 cm. Distal ascending aorta 4.2 cm. AAA (abdominal aortic aneurysm) 04/09/2013 Hypertension 11/28/2016 documented as of this encounter (statuses as of 02/14/2023) [facility] History of Past illness Narrative* Problem Noted Date Resolved Date Ectatic thoracic aorta 09/12/2022 Overview: Seen on ct of chest 2020 Last echo normal. 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 Measurements - Sinus 3.6 cm. Sinotubular junction 3.0 cm. Mid ascending aorta 4.0 cm. Distal ascending aorta 4.2 cm. AAA (abdominal aortic aneurysm) 04/09/2013 Hypertension 11/28/2016 documented as of this encounter (statuses as of 02/15/2023) [facility] History of Past illness Narrative* Problem Noted Date Diagnosed Date Resolved Date Ectatic thoracic aorta 09/12/202209/12 Overview: Seen on ct of chest 2020 Last echo normal. 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 Measurements - Sinus 3.6 cm. Sinotubular junction 3.0 cm. Mid ascending aorta 4.0 cm. Distal ascending aorta 4.2 cm. AAA (abdominal aortic aneurysm) 04/09/2013 Hypertension 11/28/2016 documented as of this encounter (statuses as of 02/19/2023) [facility] History of Past illness Narrative* Problem Noted Date Diagnosed Date Resolved Date Ectatic thoracic aorta 09/12/202209/12 Overview: Seen on ct of chest 2020 Last echo normal. 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 Measurements - Sinus 3.6 cm. Sinotubular junction 3.0 cm. Mid ascending aorta 4.0 cm. Distal ascending aorta 4.2 cm. AAA (abdominal aortic aneurysm) 04/09/2013 Hypertension 11/28/2016 documented as of this encounter (statuses as of 02/19/2023) [facility] History of Past illness Narrative* Problem Noted Date Diagnosed Date Resolved Date Ectatic thoracic aorta 09/12/202209/12 Overview: Seen on ct of chest 2020 Last echo normal. 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 Measurements - Sinus 3.6 cm. Sinotubular junction 3.0 cm. Mid ascending aorta 4.0 cm. Distal ascending aorta 4.2 cm. AAA (abdominal aortic aneurysm) 04/09/2013 Hypertension 11/28/2016 documented as of this encounter (statuses as of 02/20/2023) [facility] History of Past illness Narrative* Problem Noted Date Diagnosed Date Resolved Date Ectatic thoracic aorta 09/12/202209/12 Overview: Seen on ct of chest 2020 Last echo normal. 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 Measurements - Sinus 3.6 cm. Sinotubular junction 3.0 cm. Mid ascending aorta 4.0 cm. Distal ascending aorta 4.2 cm. AAA (abdominal aortic aneurysm) 04/09/2013 Hypertension 11/28/2016 documented as of this encounter (statuses as of 02/21/2023) [facility]23 History of Past illness Narrative* Problem Noted Date Diagnosed Date Resolved Date Ectatic thoracic aorta 09/12/202209/12 Overview: Seen on ct of chest 2020 Last echo normal. 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 Measurements - Sinus 3.6 cm. Sinotubular junction 3.0 cm. Mid ascending aorta 4.0 cm. Distal ascending aorta 4.2 cm. AAA (abdominal aortic aneurysm) 04/09/2013 Hypertension 11/28/2016 documented as of this encounter (statuses as of 02/22/2023) [facility] History of Past illness Narrative* Problem Noted Date Diagnosed Date Resolved Date Ectatic thoracic aorta 09/12/202209/12 Overview: Seen on ct of chest 2020 Last echo normal. 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 Measurements - Sinus 3.6 cm. Sinotubular junction 3.0 cm. Mid ascending aorta 4.0 cm. Distal ascending aorta 4.2 cm. AAA (abdominal aortic aneurysm) 04/09/2013 Hypertension 11/28/2016 documented as of this encounter (statuses as of 02/22/2023) [facility]23 History of Past illness Narrative* Problem Noted Date Diagnosed Date Resolved Date Ectatic thoracic aorta 09/12/202209/12 Overview: Seen on ct of chest 2020 Last echo normal. 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 Measurements - Sinus 3.6 cm. Sinotubular junction 3.0 cm. Mid ascending aorta 4.0 cm. Distal ascending aorta 4.2 cm. AAA (abdominal aortic aneurysm) 04/09/2013 Hypertension 11/28/2016 documented as of this encounter (statuses as of 03/11/2023) [facility]2023 History of Past illness Narrative* Problem Noted Date Diagnosed Date Resolved Date Ectatic thoracic aorta 09/12/202209/12 Overview: Seen on ct of chest 2020 Last echo normal. 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 Measurements - Sinus 3.6 cm. Sinotubular junction 3.0 cm. Mid ascending aorta 4.0 cm. Distal ascending aorta 4.2 cm. AAA (abdominal aortic aneurysm) 04/09/2013 Hypertension 11/28/2016 documented as of this encounter (statuses as of 03/26/2023) [facility]23 History of Past illness Narrative* Problem Noted Date Diagnosed Date Resolved Date Ectatic thoracic aorta 09/12/202209/12 Overview: Seen on ct of chest 2020 Last echo normal. 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 Measurements - Sinus 3.6 cm. Sinotubular junction 3.0 cm. Mid ascending aorta 4.0 cm. Distal ascending aorta 4.2 cm. AAA (abdominal aortic aneurysm) 04/09/2013 Hypertension 11/28/2016 documented as of this encounter (statuses as of 03/28/2023) [facility] History of Past illness Narrative* Problem Noted Date Diagnosed Date Resolved Date Ectatic thoracic aorta 09/12/202209/12 Overview: Seen on ct of chest 2020 Last echo normal. 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 Measurements - Sinus 3.6 cm. Sinotubular junction 3.0 cm. Mid ascending aorta 4.0 cm. Distal ascending aorta 4.2 cm. AAA (abdominal aortic aneurysm) 04/09/2013 Hypertension 11/28/2016 documented as of this encounter (statuses as of 04/10/2023) [facility] History of Past illness Narrative* Problem Noted Date Diagnosed Date Resolved Date Ectatic thoracic aorta 09/12/202209/12 Overview: Seen on ct of chest 2020 Last echo normal. 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 Measurements - Sinus 3.6 cm. Sinotubular junction 3.0 cm. Mid ascending aorta 4.0 cm. Distal ascending aorta 4.2 cm. AAA (abdominal aortic aneurysm) 04/09/2013 Hypertension 11/28/2016 documented as of this encounter (statuses as of 05/03/2023) [facility]01[facility]2023 History of Past illness Narrative* Problem Noted Date Diagnosed Date Resolved Date Ectatic thoracic aorta 09/12/202209/12 Overview: Seen on ct of chest 2020 Last echo normal. 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 Measurements - Sinus 3.6 cm. Sinotubular junction 3.0 cm. Mid ascending aorta 4.0 cm. Distal ascending aorta 4.2 cm. AAA (abdominal aortic aneurysm) 04/09/2013 Hypertension 11/28/2016 documented as of this encounter (statuses as of 05/03/2023) [facility] History of Past illness Narrative* Problem Noted Date Diagnosed Date Resolved Date Ectatic thoracic aorta 09/12/202209/12 Overview: Seen on ct of chest 2020 Last echo normal. 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 Measurements - Sinus 3.6 cm. Sinotubular junction 3.0 cm. Mid ascending aorta 4.0 cm. Distal ascending aorta 4.2 cm. AAA (abdominal aortic aneurysm) 04/09/2013 Hypertension 11/28/2016 documented as of this encounter (statuses as of 05/27/2023) [facility] History of Past illness Narrative* Problem Noted Date Diagnosed Date Resolved Date Ectatic thoracic aorta 09/12/202209/12 Overview: Seen on ct of chest 2020 Last echo normal. 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 Measurements - Sinus 3.6 cm. Sinotubular junction 3.0 cm. Mid ascending aorta 4.0 cm. Distal ascending aorta 4.2 cm. AAA (abdominal aortic aneurysm) 04/09/2013 Hypertension 11/28/2016 documented as of this encounter (statuses as of 06/12/2023) [facility]02[facility] History of Past illness Narrative* Problem Noted Date Diagnosed Date Resolved Date Ectatic thoracic aorta 09/12/202209/12 Overview: Seen on ct of chest 2020 Last echo normal. 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 Measurements - Sinus 3.6 cm. Sinotubular junction 3.0 cm. Mid ascending aorta 4.0 cm. Distal ascending aorta 4.2 cm. AAA (abdominal aortic aneurysm) 04/09/2013 Hypertension 11/28/2016 documented as of this encounter (statuses as of 06/20/2023) [facility]01[facility]23 History of Past illness Narrative* Problem Noted Date Diagnosed Date Resolved Date Ectatic thoracic aorta 09/12/202209/12 Overview: Seen on ct of chest 2020 Last echo normal. 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 Measurements - Sinus 3.6 cm. Sinotubular junction 3.0 cm. Mid ascending aorta 4.0 cm. Distal ascending aorta 4.2 cm. AAA (abdominal aortic aneurysm) 04/09/2013 Hypertension 11/28/2016 documented as of this encounter (statuses as of 06/20/2023) [facility]02[facility]01-[facility]23 History of Present illness Narrative* Mauro Krishnamurthy MD - 09/12/2022 1:35 PM EST Patient presents with: Follow Up HPI: Patient presents today for office visit for follow up. Seen by rheum recently for PMR. She had a new complaint with rheumatology of temporal artery tenderness which she did not have when seen previously by me. Us of the temporal artery were negative. Shehad a biopsy which did not show giant cells but did show some persistent chronic inflammation that could be giant cell arteritis. She sees rheum in next week. Feels much better since she is on the higher dose of steroids. Her wide spread myalgias are better. Her neck and shoulders are feeling better. No headache Is gaining weight from the steroids. Sees cardiology again soon. Last ct showed just an ectatic aorta. No chest pain. No shortness of breath. No pelvic pain or bleeding. On prolia for osteoporosis. Stomach is stable. Moods are unchanged. MEDICATIONS: Current Outpatient Medications Medication Sig predniSONE (DELTASONE) 20 mg tablet Take 3 tablets by mouth once daily. calcium carbonate 600 mg-cholecalciferol 400 units (CALCIUM 600 + D) 600 mg-10 mcg (400 unit) tab Take 1 tablet by mouth once daily. omeprazole (PRILOSEC) 20 mg capsule Take 1 capsule by mouth once daily. citalopram (CELEXA) 20 mg tablet Take 20 mg by mouth once daily. melatonin 3 mg capsules Take 3 mg by mouth. At night buPROPion (WELLBUTRIN) 75 mg tablet Take 75 mg by mouth twice daily. ARIPiprazole (ABILIFY) 5 mg tablet Take 5 mg by mouth once daily. LORazepam (ATIVAN) 0.5 mg Take 0.5 mg by mouth once daily as needed. metoprolol succinate ER (TOPROL XL) 25 mg 24 hr tablet Take 1 tablet by mouth once daily. QUEtiapine (SEROQUEL) 50 mg tablet Take 50 mg by mouth daily at bedtime. sertraline 100 mg tablet Take 200 mg by mouth once daily. psyllium husk (METAMUCIL) 3.4 gram/5.4 gram powd Take 3.4 g by mouth once daily. In 8 oz of water polyethylene glycol 3350 (MIRALAX, GLYCOLAX) 17 gram/dose powder Use as directed for Miralax / Gatorade Bowel Prep Kit Bisacodyl (DULCOLAX) 5 mg tab Use as directed for Miralax / Gatorade Bowel Prep Kit ibuprofen (MOTRIN ORAL) Take by mouth as needed. nystatin (MYCOSTATIN) cream Apply 1 application to affected area twice daily. nystatin (MYCOSTATIN) cream Apply 1 application to affected area twice daily. Incontinence Pants, Reusable misc 5 Units continuous. Current Facility-Administered Medications Medication Dose Route Frequency denosumab 60 mg injection (PROLIA) 60 mg SUBCUTANEOUS Q 6 MONTH ALLERGIES: ALLERGIES No Known Allergies PAST MEDICAL HISTORY Diagnosis Date Anxiety Depression Hypercholesteremia Hypertension Lung nodules unchanged ct 03/24 Pancreatitis 05/2019 Thoracic aortic aneurysm 09/23 followed by cardiology Thyroid goiter needs follow up in 05/28 PAST SURGICAL HISTORY Procedure Laterality Date COLONOSCOPY 09/25/2021 repeat in 5 years COLONOSCOPY FLX DX W/COLLJ SPEC WHEN PFRMD 03/31/2014 Colonoscopy COLONOSCOPY FLX DX W/COLLJ SPEC WHEN PFRMD 04/05/2016 Colonoscopy (MAC) EGD W/O [facility] SPEC VARICIES INJ 09/25/2021 LAPS SURG CHOLECYSTECTOMY W/CHOLANGIOGRAPHY 10/25/2016 normal IOC NEUROPLASTY &/TRANSPOS MEDIAN NRV CARPAL TUNNE Right 1989 Carpal tunnel decomp NEUROPLASTY &/TRANSPOS MEDIAN NRV CARPAL TUNNE Left 12/26/2017 Left carpal tunnel release TOTAL ABDOMINAL HYSTERECT W/WO RMVL TUBE OVARY 10/01/2013 FAMILY HISTORY Problem Relation Age of Onset Colon Cancer Mother Cancer Father lung Breast Cancer Sister Cancer Brother lung Social History Tobacco Use Smoking status: Former Packs/day: 0.50 Years: 12.00 Pack years: 6.00 Types: Cigarettes Quit date: 05/29/2011 Years since quittin.2 Smokeless tobacco: Former Vaping Use Vaping Use: Never used Substance Use Topics Alcohol use: Not Currently Drug use: No Comment: marijuana only as teen Reviewed current medications, allergies, past medical history, surgical history, family history andsocial history today. REVIEW OF SYSTEMS All other reviewed and negative other than HPI. HEALTH MAINTENANCE: Reviewed health maintenance issues today and recommended the following in detail. COVID-19 VACCINE(4 - Booster for Moderna series) due on 12/18/2021 PNEUMOCOCCAL: 65+(3) due on 05/24/2022 MAMMOGRAM due on 06/22/2022- needs rescheduled. VITALS: BP 112/72 Pulse 69 Wt 106.1 kg (234 lb) LMP 06/17/2016 SpO2 95% BMI 44.21 kg/m Last 4 Encounter Wt Readings: Date: Wt: 09/12/2022 106.1 kg (234 lb) 08/23/2022 102.5 kg (226 lb) 08/01/2022 103.8 kg (228 lb 12.8 oz) 07/04/2022 97.1 kg (214 lb) PHYSICAL EXAMINATION: General appearance: Well appearing, alert, in no acute distress, well-hydrated, well nourished. Skin: incision healing well Head: Normocephalic, no masses, lesions, tenderness or abnormalities Lungs: Lungs clear to auscultation. No wheezing, rhonchi, rales Heart: RRR without murmur, gallop, or rubs. No ectopy Abdomen: Normal abdominal exam, Abdomen soft, non-tender. Bowel sounds normal. No masses, organomegaly Extremities: No deformities, edema, skin discoloration, clubbing or cyanosis. Good capillary refill. ASSESSMENT/PLAN: 1. PMR (polymyalgia rheumatica) (HCC) - ICD9: 725, ICD10: M35.3 (primary diagnosis) - ? Resolving GCA. Continue meds per rheum. 2. Ectatic thoracic aorta (HCC) - ICD9: 447.71, ICD10: I77.810 - see cardiology. Keep bp tight 3. Aneurysm of ascending aorta without rupture - ICD9: 441.2, ICD10: I71.21 4. Depression, unspecified depression type - ICD9: 311, ICD10: F32.A - per psyc Mauro Krishnamurthy MD [facility] Miscellaneous Notes* Telephone Encounter - Marie Hewitt PA-C - 09/10/2022 11:17 AM EST Attempted to reach patient again re:questions about bandage Left detailed voicemail that patient may remove bandage and start using ointment 4 times daily x 1 week then 2 times daily x 1 week. Advised to call back if she has any further questions. Call office at with any questions or concerns. Marie Hewitt PA-C September 10, 2022 * Telephone Encounter - Barb Tapia - 09/10/2022 11:10 AM EST patient missed a phone call from the office [phone] * Telephone Encounter - Barb Tapia - 09/10/2022 10:18 AM EST patient has questions on her bandage, she would like to speak to Siomara [phone] 09/07/2022 TABX documented in [facility]Fire[facility] Miscellaneous Notes* Telephone Encounter - Patrizia Scott LPN - 08/31/2022 5:07 PM EST Patient calling with medication/refill: Patient denies any new or worsening symptoms of which a provider is not aware:Yes Pt has enough medication to last till Saturday of next week. She will call office Saturday for refill. Patrizia Scott LPN documented in this [facility]Fire[facility]23 Miscellaneous Notes* Telephone Encounter - Siomara Medina MD - 08/27/2022 5:23 PM EST Referred by Dr. Willis (Rheumatology) Started steroids May 2022 Discussed temporal artery biopsy procedure in detail with patient. Goal is to take a segment of artery (~2cm) for pathologist to rule out giant cell arteritis. Incision will be within hairline or just in front of hairline (depending on artery course) usually 4-5 cm in length. All sutures dissolve, thus no post operative appointment with Dr. Cervantes required. Discussed risks of surgery including hematoma formation, nerve damage, inadequate specimen, among others listed below. Patient understands and would like to proceed. Please note that steroids will be managed by referring doctor, not by Dr. Cervantes. *discussed with patient that since has been in senior care steroids, yield of biopsy is lower. Plan: Right or left temporal artery biopsy (likely left) 30 mins Local Schedule for 08/31/22 pending OR availability Not on blood thinners Patient will need to coordinate transport (wheelchair bound) Siomara Cervantes MD Oculofacial Plastic Surgery Fellow documented in this encounterFirelands [facility] Center01-16-2023 Miscellaneous Notes* Telephone Encounter - Lexie Pike MA - 08/27/2022 3:00 PM EST Patient is notified of message below and verbalized understanding of instructions. Lexie Pike MA * Telephone Encounter - Radha Willis MD - 08/27/2022 2:22 PM EST Prednisone order placed. Please call patient to let her know that [facility] and that she should take 3 pills once a day for a total of 60 mg until she gets her biopsy. Please tell her to keep her phone on as ophthalmology has been trying to get a hold of her to schedule her temporal artery biopsy. * Telephone Encounter - Belle Devine - 08/27/2022 1:34 PM EST Good Afternoon, Patient called in that she was supposed to get her prednesone increased from 5mg to 10mg and she took her last pill last night. Thank You documented in this encounterFirelands Regional Medical Center01-11-2023 Miscellaneous Notes* Telephone Encounter - Stefani Atkins LPN - 08/22/2022 1:15 PM EST Patient scheduled for nurse visit 08/22/22 to receive Prolia injection. Please place order at this time. Stefani Atkins LPN documented in this encounterFirelands Regional Medical Center01-11-2023 History of Present illness Narrative* Stefani Atkins LPN - 08/22/2022 1:14 PM EST Patient presents for Prolia injection. Denies any problems at this time. Tolerated injection well. Stefani Atkins LPN documented in this encounterFirelands Regional Medical Center12-22-2022 Miscellaneous Notes* Telephone Encounter - Lolly Stover RN - 08/02/2022 2:48 PM EST Pt called and is notified of providers results and instructions. Pt voices understanding. Lolly Stover RN * Telephone Encounter - Mauro Krishnamurthy MD - 08/02/2022 12:39 PM EST Her labs are ok. Her inflammatory markers are significantly better on prednisone. Keep appt with rheum. Decrease prednisone to 5 mg a day and see if feels any better. documented in this [facility]12-21-2022 Instructions* Patient Instructions* Mauro Krishnamurthy MD - 08/01/2022 2:41 PM EST Make sure you keep the appointment with rheumatology. documented in this encounterFirelands Regional Medical Center12-21-2022 History of Present illness Narrative* Mauro Krishnamurthy MD - 08/01/2022 2:30 PM EST Patient presents with: Follow Up: 1 week HPI: Patient presents today for office visit for follow up. She is more tired on steroids. Stiffness and pain is noticeably different on the steroids. No stomach upset. Appetite is increased. Has been eating more M and Ms. Some polyuria and polydipsia. Sleeping much more. Moods have been worse. Sees psychiatry. No suicidal ideation. No chest pain or shortness of breath. Reminded importance of seeing rheum. No fever or chills. Sign of infection. See previous ov: Patient presents today for office visit for follow up for symptoms off and on over 6 months with weakness, lightheadedness, pain in right leg mainly. Saw Paul Whiting on 05/31/22. See below. Was referred to ortho. Labs were repeated after steroids. On review. Labs did improve dramatically while on steroids and then resumed when off. Sees Dr Gaitan on 07/19 Sees Rheum 08/23. She had told Paul her pain was primarily in her right leg. She is telling me today she has polyarthralgia which is what she had told me initially. Pain in the neck. Pain in the shoulders, pain in the hands, pain in both hips, pain in the right knee. Worse on getting up, especially in the morning. She complains significantly of stiffness. She states she talked more about her knee last time because she had such dramatic improvement in her polyarthralgia except the knee. After she was off it came back. In hind sight she was much better on it. No swelling or redness in joints. No headaches. No issues swallowing or dry eyes. No fevers or chills. Her primary pain is neck and shoulders girdle and hips. That might be more consistent with pmr. Complaints today of nausea and dizziness. Trouble standing and walking. Had a fall a few days ago. Can't remember exact day. Did not hit her head. Did not injure anything. Nausea and dizziness are not worse than anything she has had before. MEDICATIONS: Current Outpatient Medications Medication Sig predniSONE (DELTASONE) 10 mg tablet Take 1 tablet by mouth once daily. calcium carbonate 600 mg-cholecalciferol 400 units (CALCIUM 600 + D) 600 mg-10 mcg (400 unit) tab Take 1 tablet by mouth once daily. omeprazole (PRILOSEC) 20 mg capsule Take 1 capsule by mouth once daily. citalopram (CELEXA) 20 mg tablet Take 20 mg by mouth once daily. melatonin 3 mg capsules Take 3 mg by mouth. At night nystatin (MYCOSTATIN) cream Apply 1 application to affected area twice daily. buPROPion (WELLBUTRIN) 75 mg tablet Take 75 mg by mouth twice daily. ARIPiprazole (ABILIFY) 5 mg tablet Take 5 mg by mouth once daily. nystatin (MYCOSTATIN) cream Apply 1 application to affected area twice daily. Incontinence Pants, Reusable misc 5 Units continuous. metoprolol succinate ER (TOPROL XL) 25 mg 24 hr tablet Take 1 tablet by mouth once daily. psyllium husk (METAMUCIL) 3.4 gram/5.4 gram powd Take 3.4 g by mouth once daily. In 8 oz of water (Patient not taking: Reported on 08/01/2022) polyethylene glycol 3350 (MIRALAX, GLYCOLAX) 17 gram/dose powder Use as directed for Miralax / Gatorade Bowel Prep Kit (Patient not taking: Reported on 08/01/2022) Bisacodyl (DULCOLAX) 5 mg tab Use as directed for Miralax / Gatorade Bowel Prep Kit (Patient not taking: Reported on 08/01/2022) ibuprofen (MOTRIN ORAL) Take by mouth as needed. (Patient not taking: Reported on 08/01/2022) LORazepam (ATIVAN) 0.5 mg Take 0.5 mg by mouth once daily as needed. (Patient not taking: Reported on 08/01/2022) QUEtiapine (SEROQUEL) 50 mg tablet Take 50 mg by mouth daily at bedtime. (Patient not taking: Reported on 08/01/2022) sertraline 100 mg tablet Take 200 mg by mouth once daily. (Patient not taking: Reported on 08/01/2022) No current facility-administered medications for this visit. ALLERGIES: ALLERGIES No Known Allergies PAST MEDICAL HISTORY Diagnosis Date Anxiety Depression Hypercholesteremia Hypertension Lung nodules unchanged ct 03/24 Pancreatitis 05/2019 Thoracic aortic aneurysm 09/23 followed by cardiology Thyroid goiter needs follow up in 05/28 PAST SURGICAL HISTORY Procedure Laterality Date COLONOSCOPY 09/25/2021 repeat in 5 years COLONOSCOPY FLX DX W/COLLJ SPEC WHEN PFRMD 03/31/2014 Colonoscopy COLONOSCOPY FLX DX W/COLLJ SPEC WHEN PFRMD 04/05/2016 Colonoscopy (MAC) EGD W/O BRSH SPEC VARICIES INJ 09/25/2021 LAPS SURG CHOLECYSTECTOMY W/CHOLANGIOGRAPHY 10/25/2016 normal IOC NEUROPLASTY &/TRANSPOS MEDIAN NRV CARPAL TUNNE Right 1989 Carpal tunnel decomp NEUROPLASTY &/TRANSPOS MEDIAN NRV CARPAL TUNNE Left 12/26/2017 Left carpal tunnel release TOTAL ABDOMINAL HYSTERECT W/WO RMVL TUBE OVARY 10/01/2013 FAMILY HISTORY Problem Relation Age of Onset Colon Cancer Mother Cancer Father lung Breast Cancer Sister Cancer Brother lung Social History Tobacco Use Smoking status: Former Packs/day: 0.50 Years: 12.00 Pack years: 6.00 Types: Cigarettes Quit date: 05/29/2011 Years since quittin.1 Smokeless tobacco: Former Vaping Use Vaping Use: Never used Substance Use Topics Alcohol use: Not Currently Drug use: No Comment: marijuana only as teen Reviewed current medications, allergies, past medical history, surgical history, family history andsocial history today. REVIEW OF SYSTEMS All other reviewed and negative other than HPI. HEALTH MAINTENANCE: Reviewed health maintenance issues today and recommended the following in detail. MAMMOGRAM due on 06/22/2022 VITALS: BP 124/82 (BP Site: Left Arm, BP Position: Sitting) Pulse 64 Resp 18 Wt 103.8 kg (228 lb 12.8oz) LMP 06/17/2016 BMI 43.23 kg/m Last 4 Encounter Wt Readings: Date: Wt: 08/01/2022 103.8 kg (228 lb 12.8 oz) 07/04/2022 97.1 kg (214 lb) 05/31/2022 0 kg () 04/25/2022 97.3 kg (214 lb 6.4 oz) PHYSICAL EXAMINATION: General appearance: Well appearing, alert, in no acute distress, well-hydrated, well nourished. Skin: Skin color, texture, turgor normal, no suspicious rashes or lesions Head: Normocephalic, no masses, lesions, tenderness or abnormalities Lungs: Lungs clear to auscultation. No wheezing, rhonchi, rales Heart: RRR without murmur, gallop, or rubs. No ectopy Abdomen: Normal abdominal exam, Abdomen soft, non-tender. Bowel sounds normal. No masses, organomegaly Extremities: No deformities, edema, skin discoloration, clubbing or cyanosis. Good capillary refill. ASSESSMENT/PLAN: 1. Polymyalgia (HCC) - ICD9: 725, ICD10: M35.3 (primary diagnosis) - see past hx. Again. Widespread polymyaglia is improved after steroids. Her crp and sed rate significantly responded to steroids. Keep appt with rheum. If numbers improving, taper steroids. .wlered - SED RATE WESTERGREN - C-REACTIVE PROTEIN (CRP) 2. Depression, unspecified depression type - ICD9: 311, ICD10: F32.A - follow with psych 3. Fatigue, unspecified type - ICD9: 780.79, ICD10: R53.83 - check labs including a1c. ? Mood issues playing a role as well. Red flags for re-assessment reviewed with patient in detail. - CBC + DIFF - TSH BLD - BASIC METABOLIC PNL 4. Polydipsia - ICD9: 783.5, ICD10: R63.1 - HGB A1C 5. 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 documented in this encounterFirelands [facility] Center12-12-2022 Miscellaneous Notes* Telephone Encounter - Farrah Strauss Ma - 07/23/2022 2:46 PM EST She is having increased fatigue. She fell asleep and missed her ride. Appointment scheduled * Telephone Encounter - Jillian Nathan - 07/23/2022 12:37 PM EST Patient called in wanting to talk with a nurse as to why she missed her appointment last week. Attempted to reschedule with Dr. Krishnamurthy only and first available isn't until . Please contact patient. Jillian Nathan documented in this encounterFirelands Regional Medical Center11-29-2022 Miscellaneous Notes* Telephone Encounter - Taz Mcmullen LPN - 07/10/2022 2:14 PM EST Pt notified. She verbalized understanding. She will keep already scheduled appt on 07/18. * Telephone Encounter - Bianka Kilgore RN - 07/06/2022 9:31 AM EST VM left for pt to call PCP office for result message below. Bianka Kilgore RN COPIED: Mauro Krishnamurthy MD 07/06/2022 7:54 AM EST Let her now her inflammatory markers are even much higher than before. Definitely continue to take the prednisone as I recommended earlier and follow up with me in two weeks as we discussed. We will follow labs as she is on meds. documented in this encounterFirelands Regional Medical Center11-23-2022 History of Present illness Narrative* Mauro Krishnamurthy MD - 07/04/2022 1:40 PM EST Patient presents with: Follow Up HPI: Patient presents today for office visit for follow up for symptoms off and on over 6 months with weakness, lightheadedness, pain in right leg mainly. Saw Paul Whiting on 05/31/22. See below. Was referred to ortho. Labs were repeated after steroids. On review. Labs did improve dramatically while on steroids and then resumed when off. Sees Dr Gaitan on 07/19 Sees Rheum 08/23. She had told Paul her pain was primarily in her right leg. She is telling me today she has polyarthralgia which is what she had told me initially. Pain in the neck. Pain in the shoulders, pain in the hands, pain in both hips, pain in the right knee. Worse on getting up, especially in the morning. She complains significantly of stiffness. She states she talked more about her knee last time because she had such dramatic improvement in her polyarthralgia except the knee. After she was off it came back. In hind sight she was much better on it. No swelling or redness in joints. No headaches. No issues swallowing or dry eyes. No fevers or chills. Her primary pain is neck and shoulders girdle and hips. That might be more consistent with pmr. Complaints today of nausea and dizziness. Trouble standing and walking. Had a fall a few days ago. Can't remember exact day. Did not hit her head. Did not injure anything. Nausea and dizziness are not worse than anything she has had before. Note was copied and pasted, without alteration from: Paul's last note: 66 year old female with hx pancreatitis, gallstones. c/o follow up on possible PMR. Symptoms off and on over 6 months with weakness, lightheadedness, pain in right leg mainly. Whole right leg hurts, primarily the knee. Has degenerative knee arthritis none on bone with remodeling right medial knee. 06/14/[address] Roderick Agee ortho Was referred to Dr. Corona with possibility of going to [facility] following surgery locally but insurance doesn't cover. Medicare/ Medicaid, [facility]: [facility] insurance won't cover. On calls states pain level about 8/10 Current pain 8/10. Started PT yesterday Steroids helped quite a bit: states pain didn't ever go away but seemed less. Daily function is low. Lives alone, bathes and dresses herself. Has urinary incontinence a few times a week. Eats prepackaged foods, frozen meals, cheese and crackers, apple sauce, cottage cheese and fruit during the day 05/16/2022 started prednisone 10mg daily 04/25/2022 ESR 50, CRP 3.9, CK 24, lipase 8, TSH 1.080 Component Latest Ref Rng & Units 05/09/2022 05/23/2022 05/31/2022 WSR 0 - 20 mm/hr 51 (H) 29 (H) 43 (H) CRP <0.9 mg/dL 3.7 (H) <0.3 4.6 (H) CHALINO Negative Negative Rheumatoid Factor <16 IU/mL 10 MEDICATIONS: Current Outpatient Medications Medication Sig calcium carbonate 600 mg-cholecalciferol 400 units (CALCIUM 600 + D) 600 mg-10 mcg (400 unit) tab Take 1 tablet by mouth once daily. omeprazole (PRILOSEC) 20 mg capsule Take 1 capsule by mouth once daily. citalopram (CELEXA) 20 mg tablet Take 20 mg by mouth once daily. psyllium husk (METAMUCIL) 3.4 gram/5.4 gram powd Take 3.4 g by mouth once daily. In 8 oz of water polyethylene glycol 3350 (MIRALAX, GLYCOLAX) 17 gram/dose powder Use as directed for Miralax / Gatorade Bowel Prep Kit Bisacodyl (DULCOLAX) 5 mg tab Use as directed for Miralax / Gatorade Bowel Prep Kit ibuprofen (MOTRIN ORAL) Take by mouth as needed. melatonin 3 mg capsules Take 3 mg by mouth. At night nystatin (MYCOSTATIN) cream Apply 1 application to affected area twice daily. buPROPion (WELLBUTRIN) 75 mg tablet Take 75 mg by mouth twice daily. ARIPiprazole (ABILIFY) 5 mg tablet Take 5 mg by mouth once daily. LORazepam (ATIVAN) 0.5 mg Take 0.5 mg by mouth once daily as needed. nystatin (MYCOSTATIN) cream Apply 1 application to affected area twice daily. Incontinence Pants, Reusable misc 5 Units continuous. metoprolol succinate ER (TOPROL XL) 25 mg 24 hr tablet Take 1 tablet by mouth once daily. QUEtiapine (SEROQUEL) 50 mg tablet Take 50 mg by mouth daily at bedtime. sertraline 100 mg tablet Take 200 mg by mouth once daily. No current facility-administered medications for this visit. ALLERGIES: ALLERGIES No Known Allergies PAST MEDICAL HISTORY Diagnosis Date Anxiety Depression Hypercholesteremia Hypertension Lung nodules unchanged ct 03/24 Pancreatitis 05/2019 Thoracic aortic aneurysm 09/23 followed by cardiology Thyroid goiter needs follow up in 05/28 PAST SURGICAL HISTORY Procedure Laterality Date COLONOSCOPY 09/25/2021 repeat in 5 years COLONOSCOPY FLX DX W/COLLJ SPEC WHEN PFRMD 03/31/2014 Colonoscopy COLONOSCOPY FLX DX W/COLLJ SPEC WHEN PFRMD 04/05/2016 Colonoscopy (MAC) EGD W/O BRSH SPEC VARICIES INJ 09/25/2021 LAPS SURG CHOLECYSTECTOMY W/CHOLANGIOGRAPHY 10/25/2016 normal IOC NEUROPLASTY &/TRANSPOS MEDIAN NRV CARPAL TUNNE Right 1989 Carpal tunnel decomp NEUROPLASTY &/TRANSPOS MEDIAN NRV CARPAL TUNNE Left 12/26/2017 Left carpal tunnel release TOTAL ABDOMINAL HYSTERECT W/WO RMVL TUBE OVARY 10/01/2013 FAMILY HISTORY Problem Relation Age of Onset Colon Cancer Mother Cancer Father lung Breast Cancer Sister Cancer Brother lung Social History Tobacco Use Smoking status: Former Packs/day: 0.50 Years: 12.00 Pack years: 6.00 Types: Cigarettes Quit date: 05/29/2011 Years since quittin.1 Smokeless tobacco: Former Vaping Use Vaping Use: Never used Substance Use Topics Alcohol use: Not Currently Drug use: No Comment: marijuana only as teen Reviewed current medications, allergies, past medical history, surgical history, family history andsocial history today. REVIEW OF SYSTEMS All other reviewed and negative other than HPI. HEALTH MAINTENANCE: Reviewed health maintenance issues today and recommended the following in detail. ADVANCE DIRECTIVE DISCUSSION Never done COVID-19 VACCINE(4 - Booster for Moderna series) due on 12/18/2021 INFLUENZA(1) due on 04/12/2022 PNEUMOCOCCAL: 65+(3) due on 05/24/2022 MAMMOGRAM due on 06/22/2022 VITALS: BP 116/68 Pulse 81 Ht 154.9 cm (5' 1) Wt 97.1 kg (214 lb) LMP 06/17/2016 SpO2 96% BMI 40.43 kg/m Last 4 Encounter Wt Readings: Date: Wt: 05/31/2022 0 kg () 04/25/2022 97.3 kg (214 lb 6.4 oz) 11/17/2021 99.8 kg (220 lb) 09/25/2021 102.5 kg (226 lb) PHYSICAL EXAMINATION: General appearance: Well appearing, alert, in no acute distress, well-hydrated, well nourished. Skin: Skin color, texture, turgor normal, no suspicious rashes or lesions Head: Normocephalic, no masses, lesions, tenderness or abnormalitie Lungs: Lungs clear to auscultation. No wheezing, rhonchi, rales Heart: RRR without murmur, gallop, or rubs. No ectopy Abdomen: Normal abdominal exam, Abdomen soft, non-tender. Bowel sounds normal. No masses, organomegaly Extremities: No deformities, edema, skin discoloration, clubbing or cyanosis. Good capillary refill. ASSESSMENT/PLAN: 1. Chronic pain of right knee - ICD9: 719.46, 338.29, ICD10: M25.561, G89.29 (primary diagnosis) - keep ortho appt, however, she has other issues other than just her knee. 2. Polyarthralgia - ICD9: 719.49, ICD10: M25.50 - given her elevated inflammatory markers, pronounced stiffness that is worse in am and marked improvement in symptoms and markers with steroids, will resume and keep appt with ortho to rule out issues like pmr. Check xrays of hips and shoulders since that is where most of her pain and stiffness istoday. - SED RATE WESTERGREN - C-REACTIVE PROTEIN (CRP) - PREDNISONE 10 MG TABLET 3. Elevated sed rate - ICD9: 790.1, ICD10: R70.0 - SED RATE WESTERGREN - C-REACTIVE PROTEIN (CRP) - PREDNISONE 10 MG TABLET 4. Morning stiffness of joints - ICD9: 719.50, ICD10: M25.60 - SED RATE WESTERGREN - C-REACTIVE PROTEIN (CRP) - PREDNISONE 10 MG TABLET 5. Neck pain - ICD9: 723.1, ICD10: M54.2 - XR CERV OTHER 4V AP/LAT/OBL - PREDNISONE 10 MG TABLET 6. Hip pain - ICD9: 719.45, ICD10: M25.559 - PREDNISONE 10 MG TABLET - XR HIP BILATERAL 5V PEL/AP/LAT EACH HIP 7. Need for influenza vaccination - ICD9: V04.81, ICD10: Z23 - INFLUENZA SEASONAL QUADRIVALENT HIGH DOSE AGE 65+ 8. Screening breast examination - ICD9: V76.10, ICD10: Z12.39 - Follow up for annual exam in one year. - [facility] SCREENING Mauro Krishnamurthy MD Recheck in two weeks. documented in this encounterFirelands Regional Medical Center11-17-2022 Miscellaneous Notes* Telephone Encounter - Niesha Beckwith RN - 06/28/2022 4:38 PM EST Patient has been identified by name and date of : Yes Pharmacy phones for refill(s): Requested Prescriptions Pending Prescriptions Disp Refills calcium carbonate 600 mg-cholecalciferol 400 units (CALCIUM 600 + D) 600 mg-10 mcg (400 unit) tab 90 tablet 3 Sig: Take 1 tablet by mouth once daily. Date of last office visit with pcp: 05/31/2022 Future appt: 07/04/2022 Last 2 Encounter Wt Readings: Date: Wt: 05/31/2022 0 kg () 04/25/2022 97.3 kg (214 lb 6.4 oz) Previous labs/tests for medication: Blood Pressure: BUN (mg/dL) Date Value 12/07/2021 21 11/18/2020 16 Sodium (mmol/L) Date Value 12/07/2021 139 11/18/2020 138 Last 1 Encounter BP Readings: Date: BP: 05/31/2022 106/62 Liver Function: ALT (U/L) Date Value 12/07/2021 13 01/18/2021 15 AST (U/L) Date Value 12/07/2021 22 01/18/2021 25 Please advise. Thank you. Niesha Beckwith RN documented in this encounterFirelands Regional Medical Center10-24-2022 Miscellaneous Notes* Telephone Encounter - Vinita Chisholm - 06/04/2022 9:19 AM EDT Placed call to patient with no answer. Left VM advising patient to return call for results. Try again later. Vinita Chisholm * Telephone Encounter - Vinita Chisholm - 06/04/2022 9:17 AM EDT ----- Message from Abbe Whtiing PA-C sent at 06/02/2022 10:34 AM EDT ----- Please advise CRP and sed rate are still elevated mid-range. Is she still taking the prednisone? It looks like she improved nicely at first. Thanks, Paul Whiting PA-C documented in this encounterFirelands Regional Medical Center10-20-2022 History of Present illness Narrative* M Major Whiting PA-C - 05/31/2022 11:20 AM EDT 66 year old female with hx pancreatitis, gallstones. c/o follow up on possible PMR. Symptoms off and on over 6 months with weakness, lightheadedness, pain in right leg mainly. Whole right leg hurts, primarily the knee. Has degenerative knee arthritis none on bone with remodeling right medial knee. 06/14/[address] Roderick Agee ortho Was referred to Dr. Corona with possibility of going to [facility] following surgery locally but insurance doesn't cover. Medicare/ Medicaid, [facility]: [facility] insurance won't cover. On calls states pain level about 8/10 Current pain 8/10. Started PT yesterday Steroids helped quite a bit: states pain didn't ever go away but seemed less. Daily function is low. Lives alone, bathes and dresses herself. Has urinary incontinence a few times a week. Eats prepackaged foods, frozen meals, cheese and crackers, apple sauce, cottage cheese and fruit during the day 05/16/2022 started prednisone 10mg daily 04/25/2022 ESR 50, CRP 3.9, CK 24, lipase 8, TSH 1.080 HISTORIES FAMILY HISTORY Problem Relation Age of Onset Colon Cancer Mother Cancer Father lung Breast Cancer Sister Cancer Brother lung PAST MEDICAL HISTORY Diagnosis Date Anxiety Depression Hypercholesteremia Hypertension Lung nodules unchanged ct 03/24 Pancreatitis 05/2019 Thoracic aortic aneurysm (HCC) 09/23 followed by cardiology Thyroid goiter needs follow up in 05/28 PAST SURGICAL HISTORY Procedure Laterality Date COLONOSCOPY 09/25/2021 repeat in 5 years COLONOSCOPY FLX DX W/COLLJ SPEC WHEN PFRMD 03/31/2014 Colonoscopy COLONOSCOPY FLX DX W/COLLJ SPEC WHEN PFRMD 04/05/2016 Colonoscopy (MAC) EGD W/O BRSH SPEC VARICIES INJ 09/25/2021 LAPS SURG CHOLECYSTECTOMY W/CHOLANGIOGRAPHY 10/25/2016 normal IOC NEUROPLASTY &/TRANSPOS MEDIAN NRV CARPAL TUNNE Right 1989 Carpal tunnel decomp NEUROPLASTY &/TRANSPOS MEDIAN NRV CARPAL TUNNE Left 12/26/2017 Left carpal tunnel release TOTAL ABDOMINAL HYSTERECT W/WO RMVL TUBE OVARY 10/01/2013 Social History Tobacco Use Smoking status: Former Packs/day: 0.50 Years: 12.00 Pack years: 6.00 Types: Cigarettes Quit date: 05/29/2011 Years since quittin.0 Smokeless tobacco: Former Vaping Use Vaping Use: Never used Substance Use Topics Alcohol use: Not Currently Drug use: No Comment: marijuana only as teen ACTIVE PROBLEM LIST 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 30 tablet 0 omeprazole (PRILOSEC) 20 mg capsule Take 1 capsule by mouth once daily. 30 capsule 11 citalopram (CELEXA) 20 mg tablet Take 20 mg by mouth once daily. psyllium husk (METAMUCIL) 3.4 gram/5.4 gram powd Take 3.4 g by mouth once daily. In 8 oz of water 660 g 3 calcium carbonate 600 mg-cholecalciferol 400 units (CALCIUM 600 + D) 600 mg(1,500mg) -400 unit tab Take 1 tablet by mouth once daily. 90 tablet 3 polyethylene glycol 3350 (MIRALAX, GLYCOLAX) 17 gram/dose powder Use as directed for Miralax / Gatorade Bowel Prep Kit 238 g 0 Bisacodyl (DULCOLAX) 5 mg tab Use as directed for Miralax / Gatorade Bowel Prep Kit 4 tablet 0 ibuprofen (MOTRIN ORAL) Take by mouth as needed. melatonin 3 mg capsules Take 3 mg by mouth. At night nystatin (MYCOSTATIN) cream Apply 1 application to affected area twice daily. 45 g 0 buPROPion (WELLBUTRIN) 75 mg tablet Take 75 mg by mouth twice daily. ARIPiprazole (ABILIFY) 5 mg tablet Take 5 mg by mouth once daily. LORazepam (ATIVAN) 0.5 mg Take 0.5 mg by mouth once daily as needed. nystatin (MYCOSTATIN) cream Apply 1 application to affected area twice daily. 45 g 1 Incontinence Pants, Reusable misc 5 Units continuous. 6 Each 2 metoprolol succinate ER (TOPROL XL) 25 mg 24 hr tablet Take 1 tablet by mouth once daily. QUEtiapine (SEROQUEL) 50 mg tablet Take 50 mg by mouth daily at bedtime. sertraline 100 mg tablet Take 200 mg by mouth once daily. No current facility-administered medications for this visit. DTAP,TDAP,TD(1 - Tdap) Never done SHINGRIX VACCINE(1 of 2) Never done ADVANCE DIRECTIVE DISCUSSION Never done COVID-19 VACCINE(4 - Booster for Moderna series) due on 12/18/2021 INFLUENZA(1) due on 04/12/2022 PNEUMOCOCCAL: 65+(3) due on 05/24/2022 MAMMOGRAM due on 06/22/2022 EXAM: BP 106/62 Pulse 77 Resp 18 LMP 06/17/2016 SpO2 94% Overweight adult woman no acute distress. Alert and oriented all spheres. Normal affect and cognition. Speech normal. No deficits to learning or comprehension. Skin warm, dry, pink to lips and nailbeds. Normal turgor. Respirations regular and unlabored. HEENT: NCAT. No scleral icterus or conjunctival injection. TM's clear. Nose and oropharynx free from injection or lesion. Oral membranes moist and pink. No cervical lymph nodes. Thyroid non-tender, no masses, or enlargement. Carotids pulses 2+/4+ without bruits. No JVD with HOB at 30 degrees. Chest is normal shape. Lungs are clear to all moore with good air exchange through out. HRRR without murmur or gallop. No lifts, heaves, or rubs. Extrem: no clubbing or cyanosis. Edema: none. Extremities are warm and pink with prompt capillary refill. Non-tender on palpation arms, shoulders, hips, thighs. Right knee with mild infrapatellar and popliteal effusion. Restricted extension and flexion. ASSESSMENT/PLAN: 1. Right leg pain - ICD9: 729.5, ICD10: M79.604 (primary diagnosis) RT arthritis - CONSULT TO ORTHOPAEDICS 2. Pain in both upper arms - ICD9: 729.5, ICD10: M79.621, M79.622 Myofascial. Elevated Sed rate/ CRP may be indicative of PMR though I suspect if has more to do witharthritis, lifestyle and physical complications. Recheck labs: if lower, taper prednisone slowly. Has consult rheum but not for a few months. - C-REACTIVE PROTEIN (CRP) - SED RATE WESTERGREN - CONSULT TO ORTHOPAEDICS 3. Neck pain - ICD9: 723.1, ICD10: M54.2 - C-REACTIVE PROTEIN (CRP) - SED RATE WESTERGREN - CONSULT TO ORTHOPAEDICS 4. Primary osteoarthritis of right knee - ICD9: 715.16, ICD10: M17.11 Consult to ortho. Discussed social needs, financial stress: offered social service consult Abbe Whiting PA-C documented in this encounterFirelands Regional Medical Center10-13-2022 Miscellaneous Notes* Telephone Encounter - Farrah Strauss Ma - 05/24/2022 11:10 AM EDT Patient notified of lab results. She feels better while on medication. Advised to continue as directed and call back as needed. Farrah Strauss Ma * Telephone Encounter - Mauro Krishnamurthy MD - 05/24/2022 8:10 AM EDT Labs are improving. Check how feeling back on meds documented in this encounterFirelands Regional Medical Center10-05-2022 Miscellaneous Notes* Telephone Encounter - Patrizia Moser LPN - 05/16/2022 2:45 PM EDT Patient notified. Verbalized understanding. Scheduled with Paul, due to pcp out in 2 weeks. * Telephone Encounter - Mauro Krishnamurthy MD - 05/16/2022 2:20 PM EDT Ok. Lets treat her for possible PMR.-polymyalgia rheumatica Rx sent in. Recheck labs in one week and follow up with me in approximately two weeks * Telephone Encounter - Desiree Yu RN - 05/16/2022 2:11 PM EDT Patient calling to let PCP know the course of Prednisone did help but she was only off of the medication one day until she began feeling return of pain in right leg and decreased mobility. The pain in her right leg improved on Prednisone but never went away. She has an appointment with [facility] in [facility] on August 23. Desiree Yu RN documented in this encounterFirelands Regional Medical Center09-30-2022 Miscellaneous Notes* Telephone Encounter - Farrah Strauss Ma - 05/11/2022 4:38 PM EDT Patient would prefer to stay with [facility]. Please assist pt in making consult appt. Farrah Strauss Ma * Telephone Encounter - Mauro Krishnamurthy MD - 05/11/2022 3:04 PM EDT Would have to be [facility], [place] [facility] [place] [facility]. * Telephone Encounter - Kajal Bazzi LPN - 05/11/2022 2:50 PM EDT Patient returned call and Dr. Perez is not taking any new patients. Please advise do you have someone else you would like for her to see. * Telephone Encounter - Mary Barakat LPN - 05/11/2022 2:42 PM EDT Patient is going to check with Dr Perez's office to see if they are taking new patient and if they accept her insurance. * Telephone Encounter - Radha Maza - 05/11/2022 2:07 PM EDT Pt returned call. She would like to stay local and has asked if the referral could be [facility] to the [facility]. * Telephone Encounter - Roya Lazar - 05/11/2022 1:57 PM EDT Called PT LVM to call back and schedule consult to rheum. Roya MILNER * Telephone Encounter - Mary Barakat LPN - 05/10/2022 4:11 PM EDT Patient is notified and verbalizes understanding. * Telephone Encounter - Mauro Krishnamurthy MD - 05/10/2022 3:46 PM EDT Lets see rheum I am going to place her on a short course of prednisone to see if helps Call with update on Saturday to let me know how doing. * Telephone Encounter - Desiree Yu RN - 05/10/2022 1:30 PM EDT Spoke with patient. Given message from provider's office. Patient verbalizes understanding. Patient reports she still feels fatigued with generalized weakness. Cough is gone. She states she is having low back pain and bilateral shoulder and neck pain which is not normal forher. Her right leg is painful with arthritis. Desiree Yu RN * Telephone Encounter - Lolly Stover RN - 05/10/2022 1:22 PM EDT Called and left a detailed voicemail notifying patient of providers message. Hospital phone number was left in case patient had any questions. Lolly Stover RN * Telephone Encounter - Mauro Krishnamurthy MD - 05/10/2022 12:27 PM EDT Her inflammatory labs are still up. The rest of the albs are ok. Is she feeling any better since I saw her on the ? documented in this encounterFirelands Regional Medical Center09-15-2022 Miscellaneous Notes* Telephone Encounter - Radha Maza - 04/26/2022 9:21 AM EDT Pt returned call. Given Dr. Krishnamurthy's message below. Pt verbalized understanding. * Telephone Encounter - Angella Santana MA - 04/26/2022 9:14 AM EDT Unable to reach patient. Left VM to return call to office. Please read below and advise. Angella Santana MA * Telephone Encounter - Mauro Krishnamurthy MD - 04/26/2022 8:05 AM EDT Also let her know covid was negative. * Telephone Encounter - Mauro Krishnamurthy MD - 04/26/2022 8:02 AM EDT Her inflammatory markers are up, however, that can be from the infection we are treating. Recheck arthritis labs in two weeks documented in this encounterFirelands Regional Medical Center07-22-2022 Miscellaneous Notes* Telephone Encounter - Bianka Kilgore RN - 03/02/2022 12:35 PM EDT Patient returned call and given provider's message below and patient verbalized understanding. Jerrica Kilgore RN * Telephone Encounter - Dipika Kapadia Ma - 02/28/2022 3:48 PM EDT Called and left message on patients voicemail to return call to the office and ask to speak with a triage nurse. Dipika Kapadia Ma * Telephone Encounter - Dipika Kapadia Ma - 02/28/2022 3:47 PM EDT ----- Message from Mauro Krishnamurthy MD sent at 02/28/2022 2:08 PM EDT ----- Let her know still shows nodules. They recommend annual us for five years. documented in this encounterFirelands Regional Medical Center07-19-2022 History of Present illness Narrative* Zeny Finch, RT(R) - 02/27/2022 10:00 AM EDT Radiology Service Progress Note PATIENT NAME: Augustine Pena DATE OF SERVICE: February 27, 2022 TIME: 10:32 AM PATIENT IDENTITY VERIFICATION COMPLETED USING TWO (2) IDENTIFIERS: Name and Date of confirmedby patient verbally. FALL SCREENING: Has the patient had 2 falls in the last year or 1 fall with injury or currently using an Ambulatory Assistive Device (Walker, Cane, Wheelchair, Crutches, etc.)? Yes, Patient High Riskfor Falls What interventions were put in place to prevent falls during this visit? Offered Assistance with Transfers/Clothing and Increased Observations by Caregivers PATIENT GENDER DATA: Female. status: : No status: NO. PATIENT RELEVANT IMPLANT DATA REVIEWED: Not Applicable RADIOLOGY DEPARTMENT: Ultrasound PERIPHERAL IV DATA: Not applicable SIGNED BY: RT Ashley(R) February 27, 2022 10:32 AM documented in this encounterFirelands Regional Medical Center05-09-2022 Miscellaneous Notes* Telephone Encounter - Angella Prado Cma - 12/18/2021 9:20 AM EDT Left message for patient to return call to office Angella Prado Cma * Telephone Encounter - Mauro Krishnamurthy MD - 12/16/2021 12:32 PM EDT Urine culture did not show uti. Probably the earlier sample was contaminated. Since it showed some protein, lets do another clean catch ua in one to two months for protein. documented in this encounterFirelands Regional Medical Center04-29-2022 Miscellaneous Notes* Telephone Encounter - Farrah Strauss Ma - 12/08/2021 5:10 PM EDT Pt notified to get urine culture * Telephone Encounter - Mauro Krishnamurthy MD - 12/08/2021 5:01 PM EDT Urine shows white cells and blood. Culture was ordered but not done. Can we have her check a culture. * Telephone Encounter - Rosemarie Zamora - 12/08/2021 4:56 PM EDT Verified with [facility] lab CX was not collected or ran. * Telephone Encounter - Mauro Krishnamurthy MD - 12/08/2021 4:08 PM EDT Culture is not listed as pending from labs. Can we make sure it was done? documented in this encounterFirelands Regional Medical Center04-22-2022 Miscellaneous Notes* Telephone Encounter - Farrah Strauss Ma - 12/01/2021 2:04 PM EDT Pt is scheduled in next 3 months To see PCP. Farrah Strauss Ma * Telephone Encounter - Abbe Whiting PA-C - 12/01/2021 1:49 PM EDT Noted. Check at next OV- or schedule if > 3months out ThanksPaul PA-C * Telephone Encounter - Jillian Silver RN - 12/01/2021 1:45 PM EDT Thalia OT from [facility] calls in to report that patient's blood pressure today was 148/95, Pulse 75,O2 97. At the end of visit patient's blood pressure was 146//96. Jillian Silver RN documented in this encounterFirelands Regional Medical Center04-08-2022 History of Present illness Narrative* Mauro Krishnamurthy MD - 11/17/2021 4:34 PM EDT Patient presents with: Hospital Discharge HPI: Patient presents today for office visit for hospital follow up. Hospitalized at [facility] for vertigo, malaise and debility. Was found to have Uti. Would like to have another urine checked. Has no symptoms but had none to begin with. While in TCU, had stopped citalopram and wellbutrin. Her psych is aware and is following. Was initially feeling more depressed but is improving. Denies current chest pain or shortness of breath. No edema. No dizziness. No gi issues. [facility] is following and she is following with occupational and physical therapy. MEDICATIONS: Current Outpatient Medications Medication Sig citalopram (CELEXA) 20 mg tablet Take 20 mg by mouth once daily. calcium carbonate 600 mg-cholecalciferol 400 units (CALCIUM 600 + D) 600 mg(1,500mg) -400 unit tab Take 1 tablet by mouth once daily. melatonin 3 mg capsules Take 3 mg by mouth. At night omeprazole (PRILOSEC) 20 mg capsule Take 1 capsule by mouth once daily. ARIPiprazole (ABILIFY) 5 mg tablet Take 5 mg by mouth once daily. metoprolol succinate ER (TOPROL XL) 25 mg 24 hr tablet Take 1 tablet by mouth once daily. acetaminophen (TYLENOL EXTRA STRENGTH) 500 mg tablet Take 1 tablet by mouth every 6 hours as neededfor pain. psyllium husk (METAMUCIL) 3.4 gram/5.4 gram powd Take 3.4 g by mouth once daily. In 8 oz of water polyethylene glycol 3350 (MIRALAX, GLYCOLAX) 17 gram/dose powder Use as directed for Miralax / Gatorade Bowel Prep Kit Bisacodyl (DULCOLAX) 5 mg tab Use as directed for Miralax / Gatorade Bowel Prep Kit ibuprofen (MOTRIN ORAL) Take by mouth as needed. nystatin (MYCOSTATIN) cream Apply 1 application to affected area twice daily. buPROPion (WELLBUTRIN) 75 mg tablet Take 75 mg by mouth twice daily. LORazepam (ATIVAN) 0.5 mg tab Take 0.5 mg by mouth once daily as needed. (Patient not taking: Reported on 09/20/2021) nystatin (MYCOSTATIN) cream Apply 1 application to affected area twice daily. Incontinence Pants, Reusable misc 5 Units continuous. (Patient not taking: Reported on 09/20/2021 ) QUEtiapine (SEROQUEL) 50 mg tablet Take 50 mg by mouth daily at bedtime. sertraline 100 mg tablet Take 200 mg by mouth once daily. Current Facility-Administered Medications Medication Dose Route Frequency denosumab 60 mg injection (PROLIA) 60 mg SUBCUTANEOUS Q 6 MONTH ALLERGIES: ALLERGIES No Known Allergies PAST MEDICAL HISTORY Diagnosis Date Anxiety Depression Hypercholesteremia Hypertension Lung nodules unchanged ct 03/24 Pancreatitis 05/2019 Thoracic aortic aneurysm (HCC) 09/23 followed by cardiology Thyroid goiter needs follow up in 05/28 PAST SURGICAL HISTORY Procedure Laterality Date COLONOSCOPY 09/25/2021 repeat in 5 years COLONOSCOPY FLX DX W/COLLJ SPEC WHEN PFRMD 03/31/2014 Colonoscopy COLONOSCOPY FLX DX W/COLLJ SPEC WHEN PFRMD 04/05/2016 Colonoscopy (MAC) EGD W/O BRSH SPEC VARICIES INJ 09/25/2021 LAPS SURG CHOLECYSTECTOMY W/CHOLANGIOGRAPHY 10/25/2016 normal IOC NEUROPLASTY &/TRANSPOS MEDIAN NRV CARPAL TUNNE Right 1989 Carpal tunnel decomp NEUROPLASTY &/TRANSPOS MEDIAN NRV CARPAL TUNNE Left 12/26/2017 Left carpal tunnel release TOTAL ABDOMINAL HYSTERECT W/WO RMVL TUBE OVARY 10/01/2013 FAMILY HISTORY Problem Relation Age of Onset Colon Cancer Mother Cancer Father lung Breast Cancer Sister Cancer Brother lung Social History Tobacco Use Smoking status: Former Smoker Packs/day: 0.50 Years: 12.00 Pack years: 6.00 Types: Cigarettes Quit date: 05/29/2011 Years since quittin.4 Smokeless tobacco: Former User Vaping Use Vaping Use: Never used Substance Use Topics Alcohol use: Not Currently Drug use: No Comment: marijuana only as teen Reviewed current medications, allergies, past medical history, surgical history, family history andsocial history today. REVIEW OF SYSTEMS All other reviewed and negative other than HPI. VITALS: BP 118/72 Pulse (!) 56 Wt 99.8 kg (220 lb) LMP 06/17/2016 BMI 41.57 kg/m Last 4 Encounter Wt Readings: Date: Wt: 11/17/2021 99.8 kg (220 lb) 09/25/2021 102.5 kg (226 lb) 09/20/2021 102.5 kg (226 lb) 09/13/2021 103 kg (227 lb) PHYSICAL EXAMINATION: General appearance: Well appearing, alert, in no acute distress, well-hydrated, well nourished. Skin: Skin color, texture, turgor normal, no suspicious rashes or lesions Lungs: Lungs clear to auscultation. No wheezing, rhonchi, rales Heart: RRR without murmur, gallop, or rubs. No ectopy Abdomen: Normal abdominal exam, Abdomen soft, non-tender. Bowel sounds normal. No masses, organomegaly Extremities: No deformities, edema, skin discoloration, clubbing or cyanosis. Good capillary refill. Musculoskeletal: No joint swelling, deformity, or tenderness Peripheral pulses: Normal Neuro: Gait normal. Reflexes normal and symmetric. Sensation grossly intact. ASSESSMENT/PLAN: 1. Urinary tract infection without hematuria, site unspecified - ICD9: 599.0, ICD10: N39.0 (primarydiagnosis) acute - check labs. - URINALYSIS, WITH MICROSCOPIC - URINE CULTURE 2. Vertigo - ICD9: 780.4, ICD10: R42 - call if any issues. 3. Debility - ICD9: 799.3, ICD10: R53.81 - as above. 4. Essential hypertension - ICD9: 401.9, ICD10: I10 - good control - CBC + DIFF- Continue current medication(s) - Recommended regular aerobic exercise. - Recommend home blood pressure monitoring, to bring results in on next visit - Goal of BP <130/80 - COMP METABOLIC PANEL - LIPID PANEL BASIC 5. Hypercholesteremia - ICD9: 272.0, ICD10: E78.00 6. Depression, unspecified depression type - ICD9: 311, ICD10: F32.A 7. Nontoxic multinodular goiter - ICD9: 241.1, ICD10: E04.2 - TSH BLD Mauro Krishnamurthy RTO in three months and prn. documented in this encounterFirelands Regional Medical Center04-04-2022 Miscellaneous Notes* Telephone Encounter - Mary Barakat LPN - 11/13/2021 1:15 PM EDT Discussed with Rosetta. She was encouraging patient today. States that affect is very flat. Didn't want blinds open. No harmful thoughts. Did tell OT that is sometimes even hard for her to verbalize herthoughts to her psych. Advised that she does have a visit this week that will be sure to touch on this issue at visit. * Telephone Encounter - Mauro Krishnamurthy MD - 11/13/2021 12:49 PM EDT I am not sure that more frequent appts are available most places unless patient is declining rapidly or having suicidal ideation. They would have to talk to psych about that one. * Telephone Encounter - Jillian Silver RN - 11/13/2021 12:39 PM EDT Rosetta OT calling from [facility] to report plan of care for patient and OT will visit patient 2 times a week for 3 weeks and 1 time a week for 1 week. OT will work with patient on ADLs, Strengthening, Providing strategies for depression management. Rosetta states that patient's biggest brigido is depression management. Rosetta states that patient see psychiatrist 1 time a month. Rosetta asking if provider thinks patient would benefit from seeing someone more often? Please review and Advise, Jillian Silver RN documented in this encounterFirelands Regional Medical Center03-30-2022 Miscellaneous Notes* Telephone Encounter - Lolly Stover RN - 11/08/2021 12:11 PM EDT Nikhil from [facility] called in and reports PT will be seeing Pt two times a week for four weeks for functional mobility training. OT will evaluate. Pt is requesting she get Tylenol PRN and Metamucil sentto [place] for her. Patient has been identified by name and date of : Yes Home Health phones for refill(s): Pending Prescriptions Disp Refills ACETAMINOPHEN 500 MG TABLET Sig: Take 1 tablet by mouth every 6 hours as needed for pain. METAMUCIL 3.4 GRAM/5.4 GRAM ORAL POWDER Sig: Take by mouth. Date of last office visit in primary care: 07/18/21 Future visit: 11/23/21 Last 2 Encounter Wt Readings: Date: Wt: 09/25/2021 102.5 kg (226 lb) 09/20/2021 102.5 kg (226 lb) Previous labs/tests for medication: Blood Pressure: BUN (mg/dL) Date Value 11/18/2020 16 Sodium (mmol/L) Date Value 11/18/2020 138 Last 1 Encounter BP Readings: Date: BP: 10/09/2021 110/66 Liver Function: ALT (U/L) Date Value 01/18/2021 15 AST (U/L) Date Value 01/18/2021 25 Please advise. Thank you. Lolly Stover RN documented in this encounterFirelands Regional Medical Center04-09-2021 NoteIMPRESSION: Severe right knee osteoarthritis progressed since 10/21/2017. Moderate joint effusion. Carbide Grinder: NELL Transcribe Date/Time: Nov 18 2020 4:09P Dictated by : HOLLY MARAVILLA DO This examination was interpreted and the report reviewed and electronically signed by: HOLLY MARAVILLA DO on Nov 18 2020 4:13PM [facility] OF [id number] History of Present illness Narrative* Lorene Mata), Tech - 11/18/2020 3:30 PM EDT Radiology Service Progress Note PATIENT NAME: Augustine Pena DATE OF SERVICE: November 18, 2020 TIME: 4:07 PM PATIENT IDENTITY VERIFICATION COMPLETED USING TWO (2) IDENTIFIERS: Name and Date of confirmedby patient verbally. FALL SCREENING: Has the patient had 2 falls in the last year or 1 fall with injury or currently using an Ambulatory Assistive Device (Walker, Cane, Wheelchair, Crutches, etc.)? No PATIENT GENDER DATA: Female. status: : No status: NO. PATIENT RELEVANT IMPLANT DATA REVIEWED: Not Applicable RADIOLOGY DEPARTMENT: General X-ray: Exam(s) Completed: Lower Extremity X- Ray(s): Knee, AP / Lat / Tunne / Merchant Right and Wt. Bearing: PERIPHERAL IV DATA: Not applicable SIGNED BY: RT Jacoby November 18, 2020 4:07 PM documented in this encounterFirelands Regional Medical Center08-29-2013 History of Past illness Narrative* Problem Noted Date Resolved Date AAA (abdominal aortic aneurysm) 04/09/2013 Hypertension 11/28/2016 documented as of this encounter (statuses as of 11/08/2021) [facility] of Past illness Narrative* Problem Noted Date Resolved Date AAA (abdominal aortic aneurysm) 04/09/2013 Hypertension 11/28/2016 documented as of this encounter (statuses as of 11/13/2021) [facility] of Past illness Narrative* Problem Noted Date Resolved Date AAA (abdominal aortic aneurysm) 04/09/2013 Hypertension 11/28/2016 documented as of this encounter (statuses as of 11/17/2021) [facility] of Past illness Narrative* Problem Noted Date Resolved Date AAA (abdominal aortic aneurysm) 04/09/2013 Hypertension 11/28/2016 documented as of this encounter (statuses as of 12/01/2021) [facility] of Past illness Narrative* Problem Noted Date Resolved Date AAA (abdominal aortic aneurysm) 04/09/2013 Hypertension 11/28/2016 documented as of this encounter (statuses as of 12/08/2021) [facility] of Past illness Narrative* Problem Noted Date Resolved Date AAA (abdominal aortic aneurysm) 04/09/2013 Hypertension 11/28/2016 documented as of this encounter (statuses as of 12/18/2021) [facility] of [facility] illness Narrative* Problem Noted Date Resolved Date AAA (abdominal aortic aneurysm) 04/09/2013 Hypertension 11/28/2016 documented as of this encounter (statuses as of 02/28/2022) [facility] of [facility] illness Narrative* Problem Noted Date Resolved Date AAA (abdominal aortic aneurysm) 04/09/2013 Hypertension 11/28/2016 documented as of this encounter (statuses as of 03/02/2022) [facility] Narrative* Problem Noted Date Resolved Date AAA (abdominal aortic aneurysm) 04/09/2013 Hypertension 11/28/2016 documented as of this encounter (statuses as of 04/26/2022) [facility] Narrative* Problem Noted Date Resolved Date AAA (abdominal aortic aneurysm) 04/09/2013 Hypertension 11/28/2016 documented as of this encounter (statuses as of 05/16/2022) [facility] of [facility] Narrative* Problem Noted Date Resolved Date AAA (abdominal aortic aneurysm) 04/09/2013 Hypertension 11/28/2016 documented as of this encounter (statuses as of 05/24/2022) [place] [id number] History of Past illness Narrative* Problem Noted Date Resolved Date AAA (abdominal aortic aneurysm) 04/09/2013 Hypertension 11/28/2016 documented as of this encounter (statuses as of 05/31/2022) [facility] Narrative* Problem Noted Date Resolved Date AAA (abdominal aortic aneurysm) 04/09/2013 Hypertension 11/28/2016 documented as of this encounter (statuses as of 05/31/2022) [facility] Narrative* Problem Noted Date Resolved Date AAA (abdominal aortic aneurysm) 04/09/2013 Hypertension 11/28/2016 documented as of this encounter (statuses as of 06/04/2022) [facility] History of Past illness Narrative* Problem Noted Date Resolved Date AAA (abdominal aortic aneurysm) 04/09/2013 Hypertension 11/28/2016 documented as of this encounter (statuses as of 06/13/2022) [facility] History of Past illness Narrative* Problem Noted Date Resolved Date AAA (abdominal aortic aneurysm) 04/09/2013 Hypertension 11/28/2016 documented as of this encounter (statuses as of 06/28/2022) [facility]2013 History of Past illness Narrative* Problem Noted Date Resolved Date AAA (abdominal aortic aneurysm) 04/09/2013 Hypertension 11/28/2016 documented as of this encounter (statuses as of 07/04/2022) [facility] History of Past illness Narrative* Problem Noted Date Resolved Date AAA (abdominal aortic aneurysm) 04/09/2013 Hypertension 11/28/2016 documented as of this encounter (statuses as of 07/04/2022) [facility] History of Past illness Narrative* Problem Noted Date Resolved Date AAA (abdominal aortic aneurysm) 04/09/2013 Hypertension 11/28/2016 documented as of this encounter (statuses as of 07/10/2022) [place] [id number] History of Past illness Narrative* Problem Noted Date Resolved Date AAA (abdominal aortic aneurysm) 04/09/2013 Hypertension 11/28/2016 documented as of this encounter (statuses as of 07/23/2022) [facility] History of Past illness Narrative* Problem Noted Date Resolved Date AAA (abdominal aortic aneurysm) 04/09/2013 Hypertension 11/28/2016 documented as of this encounter (statuses as of 08/01/2022) [facility] History of Past illness Narrative* Problem Noted Date Resolved Date AAA (abdominal aortic aneurysm) 04/09/2013 Hypertension 11/28/2016 documented as of this encounter (statuses as of 08/03/2022) [facility] History of Past illness Narrative* Problem Noted Date Resolved Date AAA (abdominal aortic aneurysm) 04/09/2013 Hypertension 11/28/2016 documented as of this encounter (statuses as of 08/22/2022) [facility] History of Past illness Narrative* Problem Noted Date Resolved Date AAA (abdominal aortic aneurysm) 04/09/2013 Hypertension 11/28/2016 documented as of this encounter (statuses as of 08/22/2022) [facility] History of Past illness Narrative* Problem Noted Date Resolved Date AAA (abdominal aortic aneurysm) 04/09/2013 Hypertension 11/28/2016 documented as of this encounter (statuses as of 08/27/2022) [facility] History of Past illness Narrative* Problem Noted Date Resolved Date AAA (abdominal aortic aneurysm) 04/09/2013 Hypertension 11/28/2016 documented as of this encounter (statuses as of 08/28/2022) [place] [address]-29-2013 History of Past illness Narrative* Problem Noted Date Resolved Date AAA (abdominal aortic aneurysm) 04/09/2013 Hypertension 11/28/2016 documented as of this encounter (statuses as of 08/31/2022) [place] [address]-29-2013 History of Past illness Narrative* Problem Noted Date Resolved Date AAA (abdominal aortic aneurysm) 04/09/2013 Hypertension 11/28/2016 documented as of this encounter (statuses as of 09/10/2022) [facility] Onset Date Resolution Status Debility acute Vertigo acute UTI (urinary tract infection) resolved Benign paroxysmal positional vertigo acute Debility acute Dehydration acute Depression acute Dizziness acute Gastroesophageal reflux disease acute Nausea acute Orthostatic hypotension acut e Urinary tract infection acut e Hypertension [facility] Work Phone: Evaluation note* Diagnosis Urinary tract infection without hematuria, site unspecified- Primary Vertigo Dizziness and giddiness Debility Debility, unspecified Essential hypertension Unspecified essential hypertension Hypercholesteremia Pure hypercholesterolemia Depression, unspecified depression type Nontoxic multinodular goiter documented in this encounter [facility] note* Diagnosis Microscopic hematuria- Primary documented in this encounter [facility] note* Diagnosis Proteinuria, unspecified type- Primary documented in this encounter [facility] note* Diagnosis Nontoxic multinodular goiter documented in this encounter [facility] noteNo assessment information [facility] Work [facility]* Diagnosis Elevated sed rate- Primary Elevated sedimentation rate documented in this encounter [facility] note* Diagnosis PMR (polymyalgia rheumatica) (HCC)- Primary Polymyalgia rheumatica documented in this encounter [facility] note* Diagnosis Right leg pain- Primary Pain in limb Pain in both upper arms Neck pain Cervicalgia Primary osteoarthritis of right knee Primary localized osteoarthrosis, lower leg [facility] Diagnosis Elevated sed rate- Primary Elevated sedimentation rate Polyarthralgia Pain in joint, multiple sites documented in this encounter [facility] note* Diagnosis Right knee pain, unspecified chronicity- Primary documented in this encounter [facility] note* Diagnosis Age-related osteoporosis without current pathological fracture Senile osteoporosis documented in this encounter [facility] note* Diagnosis Chronic pain of right knee- Primary Polyarthralgia Pain in joint, multiple sites Elevated sed rate Elevated sedimentation rate Morning stiffness of joints Stiffness of joint, not elsewhere classified, unspecified site Neck pain Cervicalgia Hip pain Pain in joint, pelvic region and thigh Need for influenza vaccination Need for prophylactic vaccination and inoculation against influenza Screening breast examination Breast screening, unspecified documented in this encounter [facility] note* Diagnosis Polymyalgia (HCC)- Primary Polymyalgia rheumatica Depression, unspecified depression type Fatigue, unspecified type Polydipsia 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 documented in this encounter [facility] note* Diagnosis Age-related osteoporosis without current pathological fracture- Primary Senile osteoporosis [facility]* Diagnosis Age-related osteoporosis without current pathological fracture- Primary Senile osteoporosis [facility]* Diagnosis Headache above the eye region- Primary Headache [facility]* Diagnosis PMR (polymyalgia rheumatica) (HCC)- Primary Polymyalgia rheumatica Ectatic thoracic aorta (HCC) Thoracic aortic ectasia Aneurysm of ascending aorta without rupture Depression, unspecified depression type documented in this encounter [facility] note* Diagnosis PMR (polymyalgia rheumatica) (HCC)- Primary Polymyalgia rheumatica [facility] Diagnosis Aneurysm of ascending aorta without rupture ([facility])- Primary Essential hypertension Unspecified essential hypertension Hypercholesteremia Pure hypercholesterolemia [facility]* Diagnosis PMR (polymyalgia rheumatica) (HCC)- Primary Polymyalgia rheumatica senior care current use of systemic steroids Encounter for long-term (current) use of steroids Medication management Encounter for long-term (current) use of other medications Vaccine counseling Other specified counseling [facility]* Diagnosis PMR (polymyalgia rheumatica) ([facility])- Primary Polymyalgia rheumatica senior care current use of systemic steroids Encounter for long-term (current) use of steroids Medication management Encounter for long-term (current) use of other medications [facility]* Diagnosis Allergic conjunctivitis of both eyes- Primary Other chronic allergic conjunctivitis [facility]* Diagnosis PMR (polymyalgia rheumatica) ([facility])- Primary Polymyalgia rheumatica [facility] Diagnosis Right leg pain- Primary Pain in limb Leg swelling Swelling of limb Dyspnea on exertion Other dyspnea and respiratory abnormality PMR (polymyalgia rheumatica) ([facility]) Polymyalgia rheumatica Medication management Encounter for long-term (current) use of other medications 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 Encounter for long-term (current) use of steroids [facility]* Diagnosis Bronchitis- Primary Bronchitis, not specified as acute or chronic Pain of right lower extremity Edema, unspecified type [facility] Diagnosis PMR (polymyalgia rheumatica) (HCC)- Primary Polymyalgia rheumatica Medication management Encounter for long-term (current) use of other medications [facility] Diagnosis Onset Date Resolution Status Acute kidney injury acute Acute pancreatitis acute GCA (giant cell arteritis) a cute UTI (urinary tract infection) acute [facility] Work Phone: Evaluation note* Diagnosis 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HCC)- Primary Giant cell arteritis PMR (polymyalgia rheumatica) (HCC) Polymyalgia rheumatica senior care current use of systemic steroids Encounter for long-term (current) use of steroids Medication management Encounter for long-term (current) use of other medications [facility] Diagnosis Chronic recurrent pancreatitis (HCC)- Primary Chronic pancreatitis Essential hypertension Unspecified essential hypertension PMR (polymyalgia rheumatica) (HCC) Polymyalgia rheumatica Hypokalemia Hypopotassemia Encounter for screening mammogram for malignant neoplasm of breast Other screening mammogram Need for vaccination Need for prophylactic vaccination and inoculation against unspecified single disease [facility] Diagnosis Dysuria- Primary [facility] Diagnosis Onset Date Resolution Status GCA (giant cell arteritis) a cute Acute kidney injury resolved Acute pancreatitis resolved UTI (urinary tract infection) resolved Acute recurrent pancreatitis acute [facility] Work Phone: Evaluation note* Diagnosis 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HCC)- Primary Giant cell arteritis [facility] Diagnosis Onset Date Resolution Status GCA (giant cell arteritis) a cute Acute kidney injury resolved Acute pancreatitis resolved UTI (urinary tract infection) resolved Acute recurrent pancreatitis acute Acute recurrent pancreatitis acute [facility] Work Phone: Evaluation note* Diagnosis Onset Date Resolution Status GCA (giant cell arteritis) a cute Acute kidney injury resolved Acute pancreatitis resolved UTI (urinary tract infection) resolved Acute recurrent pancreatitis resolved Diarrhea acute Hypokalemia acute Hypophosphatemia acute Chronic pancreatitis chronic Acute recurrent pancreatitis resolved [facility] Work Phone: Evaluation note* Diagnosis 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HCC)- Primary Giant cell arteritis [facility] Diagnosis 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HCC)- Primary Giant cell arteritis [facility] Diagnosis 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HCC)- Primary Giant cell arteritis PMR (polymyalgia rheumatica) (HCC) Polymyalgia 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 Encounter for long-term (current) use of steroids Medication management Encounter for long-term (current) use of other medications [facility] Diagnosis Onset Date Resolution Status Acute recurrent pancreatitis resolved Diarrhea acute Hypokalemia acute Hypophosphatemia acute Chronic pancreatitis chronic Acute recurrent pancreatitis resolved [facility] Work Phone: Evaluation note* Diagnosis Chronic pancreatitis, unspecified pancreatitis type (HCC)- Primary Encounter for immunization Need for other specified prophylactic vaccination against single bacterial disease PMR (polymyalgia rheumatica) (HCC) Polymyalgia rheumatica Essential hypertension Unspecified essential hypertension Hypercholesteremia Pure hypercholesterolemia Aneurysm of ascending aorta without rupture (HCC) Orthostatic hypotension Major depressive disorder, recurrent, mild (HCC) Major depressive disorder, recurrent episode, mild [facility]* Diagnosis Anemia, unspecified type- Primary Renal insufficiency Unspecified disorder of kidney and ureter [facility] Diagnosis Onset Date Resolution Status Diarrhea acute Hypokalemia acute Hypophosphatemia acute Chronic pancreatitis chronic Acute recurrent pancreatitis resolved [facility] Work Phone: Evaluation note* Diagnosis Anemia, unspecified type- Primary [facility]* Diagnosis Leukopenia, unspecified type- Primary [facility]* Diagnosis Age-related osteoporosis without current pathological fracture- Primary Senile osteoporosis [facility]* Diagnosis Age-related osteoporosis without current pathological fracture- Primary Senile osteoporosis [facility] Diagnosis Aneurysm of ascending aorta without rupture (HCC)- Primary Primary hypertension Unspecified essential hypertension [facility]* Diagnosis Hyperkalemia- Primary Hyperpotassemia documented [facility]* Diagnosis Encounter for screening mammogram for breast cancer [facility] Diagnosis Pre-operative examination- Primary Preoperative examination, unspecified Dysphagia, unspecified type History of colonic polyps Personal history of colonic polyps Aortic root aneurysm Aortic aneurysm of unspecified site without mention of rupture Essential hypertension Unspecified essential hypertension Hypercholesteremia Pure hypercholesterolemia Lung nodules Other nonspecific abnormal finding of lung field Nontoxic multinodular goiter Age-related osteoporosis without current pathological fracture Senile osteoporosis Depression, unspecified depression type Obesity, Class III, BMI >= 40 Morbid obesity Dizziness- Primary Dizziness and giddiness documented [facility]* Diagnosis Pre-operative examination- Primary Preoperative examination, unspecified Dysphagia, unspecified type History of colonic polyps Personal history of colonic polyps Aortic root aneurysm Aortic aneurysm of unspecified site without mention of rupture Essential hypertension Unspecified essential hypertension Hypercholesteremia Pure hypercholesterolemia Lung nodules Other nonspecific abnormal finding of lung field Nontoxic multinodular goiter Age-related osteoporosis without current pathological fracture Senile osteoporosis Depression, unspecified depression type Obesity, Class III, BMI >= 40 Morbid obesity Acute pain of right knee PMR (polymyalgia rheumatica) (HCC) Polymyalgia rheumatica Medication management Encounter for long-term (current) use of other medications 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 Encounter for long-term (current) use of steroids [facility]* Diagnosis Pre-operative examination- Primary Preoperative examination, unspecified Dysphagia, unspecified type History of colonic polyps Personal history of colonic polyps Aortic root aneurysm Aortic aneurysm of unspecified site without mention of rupture Essential hypertension Unspecified essential hypertension Hypercholesteremia Pure hypercholesterolemia Lung nodules Other nonspecific abnormal finding of lung field Nontoxic multinodular goiter Age-related osteoporosis without current pathological fracture Senile osteoporosis Depression, unspecified depression type Obesity, Class III, BMI >= 40 Morbid obesity Bronchitis Bronchitis, not specified as acute or chronic [facility] Diagnosis Pre-operative examination- Primary Preoperative examination, unspecified Dysphagia, unspecified type History of colonic polyps Personal history of colonic polyps Aortic root aneurysm Aortic aneurysm of unspecified site without mention of rupture Essential hypertension Unspecified essential hypertension Hypercholesteremia Pure hypercholesterolemia Lung nodules Other nonspecific abnormal finding of lung field Nontoxic multinodular goiter Age-related osteoporosis without current pathological fracture Senile osteoporosis Depression, unspecified depression type Obesity, Class III, BMI >= 40 Morbid obesity Right knee pain, unspecified chronicity Neck pain Cervicalgia Hip pain Pain in joint, pelvic region and thigh documented in this encounter [facility] note* Diagnosis Acute pain of right knee Pre-operative examination- Primary Preoperative examination, unspecified Dysphagia, unspecified type History of colonic polyps Personal history of colonic polyps Aortic root aneurysm Aortic aneurysm of unspecified site without mention of rupture Essential hypertension Unspecified essential hypertension Hypercholesteremia Pure hypercholesterolemia Lung nodules Other nonspecific abnormal finding of lung field Nontoxic multinodular goiter Age-related osteoporosis without current pathological fracture Senile osteoporosis Depression, unspecified depression type Obesity, Class III, BMI >= 40 Morbid obesity [facility]* Diagnosis Pre-operative examination- Primary Preoperative examination, unspecified Dysphagia, unspecified type History of colonic polyps Personal history of colonic polyps Aortic root aneurysm Aortic aneurysm of unspecified site without mention of rupture Essential hypertension Unspecified essential hypertension Hypercholesteremia Pure hypercholesterolemia Lung nodules Other nonspecific abnormal finding of lung field Nontoxic multinodular goiter Age-related osteoporosis without current pathological fracture Senile osteoporosis Depression, unspecified depression type Obesity, Class III, BMI >= 40 Morbid obesity PMR (polymyalgia rheumatica) (HCC)- Primary Polymyalgia rheumatica Encounter for immunization Need for other specified prophylactic vaccination against single bacterial disease Essential hypertension Unspecified essential hypertension 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HCC) Giant cell arteritis Orthostatic hypotension Aneurysm of ascending aorta without rupture (HCC) Chronic pancreatitis, unspecified pancreatitis type (HCC) Thyroid nodule Nontoxic uninodular goiter Obesity, Class III, BMI >= 40 Morbid obesity Major depressive disorder, recurrent, mild (HCC) Major depressive disorder, recurrent episode, mild Other osteoporosis Encounter for screening examination for other mental health and behavioral disorders Need for vaccination Need for prophylactic vaccination and inoculation against unspecified single disease documented in this encounter [facility] note* Diagnosis Pre-operative examination- Primary Preoperative examination, unspecified Dysphagia, unspecified type History of colonic polyps Personal history of colonic polyps Aortic root aneurysm Aortic aneurysm of unspecified site without mention of rupture Essential hypertension Unspecified essential hypertension Hypercholesteremia Pure hypercholesterolemia Lung nodules Other nonspecific abnormal finding of lung field Nontoxic multinodular goiter Age-related osteoporosis without current pathological fracture Senile osteoporosis Depression, unspecified depression type Obesity, Class III, BMI >= 40 Morbid obesity PMR (polymyalgia rheumatica) (HCC)- Primary Polymyalgia rheumatica Other osteoporosis Medication monitoring encounter Encounter for therapeutic drug monitoring Immunosuppression (HCC) Unspecified disorder of immune mechanism Vaccine counseling Other specified counseling Age-related osteoporosis without current pathological fracture Senile osteoporosis [facility] Diagnosis Pre-operative examination- Primary Preoperative examination, unspecified Dysphagia, unspecified type History of colonic polyps Personal history of colonic polyps Aortic root aneurysm Aortic aneurysm of unspecified site without mention of rupture Essential hypertension Unspecified essential hypertension Hypercholesteremia Pure hypercholesterolemia Lung nodules Other nonspecific abnormal finding of lung field Nontoxic multinodular goiter Age-related osteoporosis without current pathological fracture Senile osteoporosis Depression, unspecified depression type Obesity, Class III, BMI >= 40 Morbid obesity Other osteoporosis documented in this encounter [facility] note* Diagnosis Pre-operative examination- Primary Preoperative examination, unspecified Dysphagia, unspecified type History of colonic polyps Personal history of colonic polyps Aortic root aneurysm Aortic aneurysm of unspecified site without mention of rupture Essential hypertension Unspecified essential hypertension Hypercholesteremia Pure hypercholesterolemia Lung nodules Other nonspecific abnormal finding of lung field Nontoxic multinodular goiter Age-related osteoporosis without current pathological fracture Senile osteoporosis Depression, unspecified depression type Obesity, Class III, BMI >= 40 Morbid obesity Thyroid nodule Nontoxic uninodular goiter documented in this encounter [facility] note* Diagnosis Pre-operative examination- Primary Preoperative examination, unspecified Dysphagia, unspecified type History of colonic polyps Personal history of colonic polyps Aortic root aneurysm Aortic aneurysm of unspecified site without mention of rupture Essential hypertension Unspecified essential hypertension Hypercholesteremia Pure hypercholesterolemia Lung nodules Other nonspecific abnormal finding of lung field Nontoxic multinodular goiter Age-related osteoporosis without current pathological fracture Senile osteoporosis Depression, unspecified depression type Obesity, Class III, BMI >= 40 Morbid obesity Thyroid nodule- Primary Nontoxic uninodular goiter documented in this encounter [facility] note* Diagnosis Pre-operative examination- Primary Preoperative examination, unspecified Dysphagia, unspecified type History of colonic polyps Personal history of colonic polyps Aortic root aneurysm Aortic aneurysm of unspecified site without mention of rupture Essential hypertension Unspecified essential hypertension Hypercholesteremia Pure hypercholesterolemia Lung nodules Other nonspecific abnormal finding of lung field Nontoxic multinodular goiter Age-related osteoporosis without current pathological fracture Senile osteoporosis Depression, unspecified depression type Obesity, Class III, BMI >= 40 Morbid obesity Thyroid nodule- Primary Nontoxic uninodular goiter documented in this encounter [facility] note* Diagnosis Pre-operative examination- Primary Preoperative examination, unspecified Dysphagia, unspecified type History of colonic polyps Personal history of colonic polyps Aortic root aneurysm Aortic aneurysm of unspecified site without mention of rupture Essential hypertension Unspecified essential hypertension Hypercholesteremia Pure hypercholesterolemia Lung nodules Other nonspecific abnormal finding of lung field Nontoxic multinodular goiter Age-related osteoporosis without current pathological fracture Senile osteoporosis Depression, unspecified depression type Obesity, Class III, BMI >= 40 Morbid obesity Thyroid nodule- Primary Nontoxic uninodular goiter documented in this encounter [facility] note* Diagnosis Pre-operative examination- Primary Preoperative examination, unspecified Dysphagia, unspecified type History of colonic polyps Personal history of colonic polyps Aortic root aneurysm Aortic aneurysm of unspecified site without mention of rupture Essential hypertension Unspecified essential hypertension Hypercholesteremia Pure hypercholesterolemia Lung nodules Other nonspecific abnormal finding of lung field Nontoxic multinodular goiter Age-related osteoporosis without current pathological fracture Senile osteoporosis Depression, unspecified depression type Obesity, Class III, BMI >= 40 Morbid obesity Nontoxic multinodular goiter- Primary documented in this encounter [facility] note* Diagnosis Pre-operative examination- Primary Preoperative examination, unspecified Dysphagia, unspecified type History of colonic polyps Personal history of colonic polyps Aortic root aneurysm (HCC) Aortic aneurysm of unspecified site without mention of rupture Essential hypertension Unspecified essential hypertension Hypercholesteremia Pure hypercholesterolemia Lung nodules Other nonspecific abnormal finding of lung field Nontoxic multinodular goiter Age-related osteoporosis without current pathological fracture Senile osteoporosis Depression, unspecified depression type Obesity, Class III, BMI >= 40 Morbid obesity Encounter for screening mammogram for breast cancer documented in this encounter [facility] note* Diagnosis Pre-operative examination- Primary Preoperative examination, unspecified Dysphagia, unspecified type History of colonic polyps Personal history of colonic polyps Aortic root aneurysm (HCC) Aortic aneurysm of unspecified site without mention of rupture Essential hypertension Unspecified essential hypertension Hypercholesteremia Pure hypercholesterolemia Lung nodules Other nonspecific abnormal finding of lung field Nontoxic multinodular goiter Age-related osteoporosis without current pathological fracture Senile osteoporosis Depression, unspecified depression type Obesity, Class III, BMI >= 40 Morbid obesity Hypercholesteremia- Primary Pure hypercholesterolemia Chronic recurrent pancreatitis (HCC) Chronic pancreatitis 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HCC) Giant cell arteritis Obesity, Class III, BMI 40-49.9 (morbid obesity) (HCC) Morbid obesity Essential hypertension Unspecified essential hypertension PMR (polymyalgia rheumatica) (HCC) Polymyalgia rheumatica Chronic pancreatitis, unspecified pancreatitis type (HCC) Nontoxic multinodular goiter Primary osteoarthritis of right knee Primary localized osteoarthrosis, lower leg Age-related osteoporosis without current pathological fracture Senile osteoporosis Wellness examination [facility] Wilbur Wolff [facility] February 22, 2023 5:25pm Note Date/Time February 22, 2023 4:50 pm [facility] Medical Records Department [address] [place] [address] H&P Exam - Hospitalist 02/22/23 1650 MR#: [id number] Acct: [id number] Name: AUGUSTINE PENA GOPAL Rep #:[id number] 5 : 1955 67 From: Wilbur Garcia PCP: Dr. Mauro Krishnamurthy MD Status:ADM I N [place] [facility] HPI - General General Date of Admission: 02/22/23 Date of Service: 02/22/23 Chief Complaint: Nausea vomiting and abdominal pain mainly upper quadrants HPI Narrative AUGUSTINE PENA, is a 67 F with history of chronic pancreatitis and recent admission between 02/04/2023 to 02/11/2023 came to ER for upper quadrant abdominal pain mainly left upper quadrant that is started about 02/16/2023. She denies abdominalpain in lower quadrants. Abdominal pain is mainly left upper quadrant is goes to back. She has chronic abdominal pain from pancreatitis but got worse since 02/16/2023. She also has nausea vomiting and diarrhea that is started on 02/19/2023. No fever or chills. She was recently treated with antibiotic ceftriaxone for 7 days during hospital course for E. coli UTI. It is also morbidly obese and arthritis of right knee, difficult ambulation and not able to take care of herself. Vitals in the ED shows BP 186/87. Heart rate normal. No hypoxia or tachypnea. Labs reviewed. She had CT abdomen which shows punctate calcifications throughout the pancreas suggestive of chronic pancreatitis. No acute abnormality seen. Status post cholecystectomy and hysterectomy. [facility] Medical History (Updated 02/22/23 @ 17:[address] Wilbur Wolff MD) Acute recurrent pancreatitis Anemia Anxiety Chronic pain Colon polyps Depression Essential hypertension Former smoker GCA (giant cell arteritis) GERD (gastroesophageal reflux disease) Lung nodules Morbid obesity Multiple thyroid nodules Obesity Osteoarthritis Osteoporosis Pancreatitis Poor dentition Pure hypercholesterolemia Thoracic aortic aneurysm without rupture Vision changes Home Medications omeprazole 20 mg capsule,delayed release 20 mg PO DAILY ACID REFLUX 10/25/16 [History Last Taken 02/21/23] calcium carbonate 600 mg-vitamin D3 10 mcg (400 unit) tablet 1 tab PO DAILY SUPPLEMENT 10/16/21 [History Last Taken 02/21/23] metoprolol succinate 25 mg tablet,extended release 24 hr 25 mg PO DAILY BLOOD PRESSURE #90 tabs 01/08/23 [Rx Last Taken 02/21/23] bupropion HCl 150 mg 24 hr tablet, extended release 150 mg PO DAILY DEPRESSION 02/04/23 [History Last Taken 02/21/23] ergocalciferol (vitamin D2) 1,250 mcg (50,000 unit) capsule 1,250 mcg PO TH 02/04/23 [History Last Taken 02/21/23] nystatin 100,000 unit/gram topical cream 1 applic topical BID PRN ANTIFUNGAL 02/04/23 [History Last Taken Unknown] sertraline 50 mg tablet 50 mg PO DAILY DEPRESSION 02/04/23 [History Last Taken 02/21/23] tocilizumab 162 mg/0.9 mL subcutaneous pen injector (Actemra ACTPen) 162 mg subcut TU RHEUMATOID ARTHRITIS 02/04/23 [History Last Taken 02/19/23] potassium chloride 20 mEq tablet,extended release 20 meq PO DAILY SUPPLEMENT 7 days #7 tabs 02/11/23 [Rx Last Taken 02/21/23] lisinopril 10 mg tablet 10 mg PO QHS BLOOD PRESSURE 02/22/23 [History Last Taken 02/21/23] lisinopril 10 mg tablet 20 mg PO DAILY BLOOD PRESSURE 02/22/23 [History Last Taken 02/21/23] prednisone 5 mg tablet See Taper PO DAILY STEROID 02/22/23 [History Last Taken 02/21/23] Allergy/AdvReac Type Severity Reaction Status Date / Time No Known Allergies Allergy Verified 02/04/23 05:09 Family History Mother Colon cancer Father Cancer Lung Sister Breast cancer Brother Cancer Lung Surgical History History of carpal tunnel surgery History of cholecystectomy History of total hysterectomy Social History household members: none Smoking Status: Former smoker alcohol intake: never substance use type: does not use caffeine: Yes Type: coffee Number of servings: 2 ROS ROS Narrative Constitutional: Reports fatigue and weakness. No fever. HEENT: Reports systems reviewed and no addt'l complaints, except as documented Respiratory/Chest: No acute shortness of breath or respiratory distress or wheezing. CVS: No chest pain or pressure or tightness Gastrointestinal: Denies coffee ground emesis, hematemesis. Rest as described in HPI Genitourinary: Denies burning urination or new urinary tract symptoms Musculoskeletal: Chronic back pain mainly lumbar region. Bilateral knee arthritis. ROM limited. Neurologic: Denies seizure-like symptoms. No acute strokelike symptoms. skin: No ulcer. No rash Endocrinology: Reports systems reviewed and no addt'l complaints, except as documented Hematologic/Lymphatic: Reports systems reviewed and no addt'l complaints, exceptas documented Rest 14 ROS are negative except as mentioned in HPI Vital Signs Vital Signs Vital Signs: 02/22/23 11:40 02/22/23 14:00 Temperature 98.5 F Temperature Source Temporal Pulse Rate 64 64 Respiratory Rate 18 14 Blood Pressure 186/87 H 183/61 H Blood Pressure Mean 120 101 Pulse Ox 95 98 Oxygen Delivery Method Room Air Room Air Weight Weight: 246 lb 14.684 oz Body Mass Index (BMI) 46.6 Physical Exam Narrative General: Alert, Oriented x3, Cooperative, morbid obese BMI 46.7 kg/m?. HEENT: Atraumatic, PERRLA, EOMI, Normocephalic Oral: Oral mucosa dry. No Gingival or Mucosal Lesions/ Ulcerations Neck: Supple, No JVD, Negative Carotid Bruits Lungs: Air entry diminished in bilateral lung bases. No crepitation/rhonchi Cardiovascular: Regular rate, Regular Rhythm, Normal S1, Normal S2, No murmurs Abdomen: Tenderness present over left upper quadrant. Bowel Sounds Present, Soft, Non-Distended : Denies acute dysuria or Tract symptoms. No renal angle tenderness. No suprapubic tenderness. Extremities: Mild bilateral nonpitting edema, Capillary Refill Less than 3 Seconds Skin: No rashes, No breakdown Musculoskeletal/spine: Tenderness present on the left paraspinal muscles. Bilateral knee arthritis right worse than left. Disequilibrium Neurological: Cranial nerves II-XII grossly intact, DTR 2+/4 and Symmetrical, Neuro grossly intact Psych/Mental Status: Flat affect. Results Lab / Micro Data 02/22/23 12:10 02/22/23 12:10 Labs: Laboratory Results - last 24 hr 02/22/23 12:10: WBC 6.2, RBC 4.36, Hgb 12.3, Hct 38.3, MCV 87.8, MCH 28.2, MCHC 32.1, RDW Std Deviation 44.0 H, RDW Coeff of Janey 14.3, Plt Count 219, MPV 9.0, Immature Gran % (Auto) 1.100 H, Neut % (Auto) 67.1, Lymph % (Auto) 18.5 L, [place] % (Auto) 12.5 H, Eos % (Auto) 0.5, Baso % (Auto) 0.3, Absolute Neuts (auto) 4.1,Absolute Lymphs (auto) 1.14, Nucleated RBC % 0, Sodium 138, Potassium 3.1 L, Chloride 104, Carbon Dioxide 25.0, Anion Gap 9, BUN 28 H, Creatinine 1.22 H, Estim Creat Clear Calc 33.77, Est GFR (MDRD) Af Amer 57 L, Est GFR (MDRD) Non-Af47 L, BUN/Creatinine Ratio 23.0 H, Glucose 111 H, Calcium 8.7, Total Bilirubin 2.20 H, AST 37, ALT 50, Alkaline Phosphatase 64, Total Protein 6.3 L, Albumin 3.5, Globulin 2.8, Albumin/Globulin Ratio 1.2, Lipase 172 H 02/22/23 13:58: Urine Color Yellow, Urine Clarity Clear, Urine pH 5.0, Ur Specific [place] 1.020, Urine Protein 15 H, Urine Glucose (UA) Normal, Urine Ketones 5 H, Urine Occult Blood Negative, Urine Nitrite Negative, Urine Bilirubin Negative, Urine Urobilinogen Normal, Ur Leukocyte Esterase 25 H, UrineRBC 0 SEEN, Urine WBC 0-5 SEEN, Ur Squamous Epith Cells 0 SEEN, Urine Bacteria 0SEEN, Urine Mucus 0 SEEN Radiology Impression Abdomen/Pelvis CT 02/22/23 12:14 IMPRESSION: Punctate calcifications throughout the pancreas suggestive of chronic pancreatitis. No acute abnormality is seen. The patient is status post cholecystectomy and hysterectomy. Electronically Signed: César Do MD at 13:43 EDT , Assessment & Plan Assessment/Plan (1) Acute recurrent pancreatitis: PLAN: Plan This 67-year-old female came to ED for severe abdominal pain almost 1 week alongwith nausea vomiting and diarrhea for 3 days 1. Acute on recurrent abdominal pain most likely due to acute on chronic pancreatitis/C. difficile colitis: [facility] fluid Ringer lactate. Mild hypokalemia and potassium replacement ordered. Keep patient n.p.o. Lipase mildly elevated 172. 2. Acute diarrhea with suspicion of C. difficile colitis:CT abdomen reviewed and shows scattered colonic diverticula but no diverticulitis. High suspicion of C. difficile. C. difficile test ordered. If positive will need oral vancomycin. Patient recently had ceftriaxone for E. coli UTI. 3. JUDE most likely due to diarrhea/prerenal: Creatinine 0.7 baseline. Creatinine 1.2 on admission. Patient also had JUDE during previous admission. At that time creatinine was 1.88 on 02/04/2023 which returned to normal. IV fluid resuscitation. Hold lisinopril 4. Hypertension: Blood pressure is elevated. IV hydralazine for SBP more than 180 mmHg. Oral antihypertensive n.p.o. is allowed. 5. Chronic degenerative arthritis mainly knee arthritis, decreased ADL with with limited mobility and anxiety/depression: PT and OT ordered. Patient also looks mildly depressed. Home medication reconciliation done 6. Hx GCA -Continue prednisone DVT: Lovenox 40 mg subcu daily. Living will/advanced directive/end of life care: Patient does not have living will or advanced directive. After discussion of benefits/risks procedures involved with full code, DNR CC arrest and DNR CC, the patient Was indecisive even after thinking a lot. She looked depressed from her quality of life. I suggested if she is unsure, she can be full code until further decision is made. She agreed with that Patient does want artificial life support including intubation, tube feed, ventilator and/chest compression, central venous catheter, vasopressor and DC shock if needed Total time spent in [id number] encounter in discussion of advanced directive 17 minutes. Charges/Coding Visit Charges Inpatient E&M: 40533 Init Hosp L3 Procedures Hospitalists Procedures: 97189 Advncd Care Plan 30 Min 02/22/23 4755 <Electronically signed by Wilbur Wolff MD> Cosigner Signature (if applicable): CC: Dr. Wilbur Wolff MD; Dr. Mauro Krishnamurthy MD~ Signed [facility] Work Phone: Hospital Discharge instructions Additional Instructions Plenty of fluids and rest. Follow-up with your primary care physician to ensure you are improving. Return if worse. Your labs, EKG, chest x-ray and urinalysis today were unremarkable.[facility] Work Phone: Hospital Discharge instructions Additional Instructions Thank you for trusting us with your care today! Please take Tylenol (2 pills, 650 mg), ibuprofen (2 pills, 400 mg) every 6 hours as needed for pain and fever control. Please return to the emergency department if your symptoms change or worsen. Specifically if you develop worsening chest pain, shortness of breath, you lose consciousness. Please return if you develop worsening swelling in your lower extremities. Please follow your primary care physician for outpatient evaluation and further treatment. Please follow with your primary care physician for further outpatient evaluation and management.[facility] Work Phone: Reason for referral (narrative)* Diagnostic Procedure Only (Routine) - Closed Specialty Diagnoses / Procedures Referred By Contac t Referred To Contact US IMAGING Diagnoses Nontoxic multinodular goiter Procedures US THYROID/PARATHYROID US SOFT TISSUE HEAD & NECK REAL TIME IMGE Mauro Corea MD [address] [place] [address] Us Imaging Referral ID Status Reason Start Date Expiration Date V isits Requested Visits Authorized [id number] Closed Auto-Generate d Referral 02/15/2022 03/17/2023 1 1 [facility] for referral (narrative)* Diagnostic Procedure Only (Routine) - Pending Review Specialty Diagnoses / Procedures Referred By Contac t Referred To Contact XR IMAGING Diagnoses Right knee pain, unspecified chronicity Procedures XR KNEE GENERAL 4V AP BOTH/PA BOTH/LAT/MERC RIGHT RADIOLOGIC EXAM KNEE COMPLETE 4/MORE VIEWS Guadalupe Gaitan DO [address] [place] [address] Xr Imaging Referral ID Status Reason Start Date Expiration Date Visits Requested Visits Authorized [id number] Pending Review Auto-Generat ed Referral 06/13/2022 07/13/2023 1 1 [facility] for referral (narrative)* Diagnostic Procedure Only (Routine) - Pending Review Specialty Diagnoses / Procedures Referred By Contac t Referred To Contact BR IMAGING Diagnoses Screening breast examination Procedures KAM SCREENING SCREENING MAMMOGRAPHY BI 2-VIEW BREAST INC CAD Mauro Krishnamurthy MD [address] [place] [address] [facility] Imaging [address] [place] [address] Referral ID Status Reason Start Date Expiration Date Visits Requested Visits Authorized [id number] Pending Review Auto-Generat ed Referral 08/03/2023 1 1 * Diagnostic Procedure Only (Routine) - Closed Specialty Diagnoses / Procedures Referred By Contac t Referred To Contact XR IMAGING Diagnoses Hip pain Procedures XR HIP BILATERAL 5V PEL/AP/LAT EACH HIP RADEX HIPS BILATERAL WITH PELVIS MINIMUM 5 VIEWS Mauro Krishnamurthy MD [address] [place] [address] Xr Imaging Referral ID Status Reason Start Date Expiration Date V isits Requested Visits Authorized [id number] Closed Auto-Generate d Referral 07/04/2022 08/03/2023 1 1 * Diagnostic Procedure Only (Routine) - Closed Specialty Diagnoses / Procedures Referred By Contac t Referred To Contact XR IMAGING Diagnoses Neck pain Procedures XR CERV OTHER 4V AP/LAT/OBL RADEX SPINE CERVICAL 4 OR 5 VIEWS Mauro Krishnamurthy MD [address] [place] [address] Xr Imaging Referral ID Status Reason Start Date Expiration Date V isits Requested Visits Authorized [id number] Closed Auto-Generate d Referral 07/04/2022 08/03/2023 1 1 [facility] for referral (narrative)* Outpatient Procedure (Routine) - Authorized Specialty Diagnoses / Procedures Referred By Contac t Referred To Contact [facility] Diagnoses Aneurysm of ascending aorta without rupture (HCC) Procedures ECHO ECHO TTHRC R-T 2D W/WOM-MODE COMPL SPEC&COLR D Leonidas Sun MD [address] [place] [address] [facility] [place] [address] Referral ID Status Reason Start Date Expiration Date Visits Requested Visits Authorized [id number] Authorized Auto-Generat ed Referral 10/08/2022 10/08/2023 1 1 [facility] for referral (narrative)* Diagnostic Procedure Only (Routine) - Pending Review Specialty Diagnoses / Procedures Referred By Bradley t Referred To Contact US IMAGING Diagnoses Right leg pain Leg swelling Dyspnea on exertion Procedures US DVT LOWER RIGHT DUP-SCAN XTR VEINS UNILATERAL/[place] [address] [place] [address] Us Imaging Referral ID Status Reason Start Date Expiration Date Visits Requested Visits Authorized [id number] Pending Review Auto-Generat ed Referral 12/07/2022 01/06/2024 1 1 [facility] for referral (narrative)* Diagnostic Procedure Only (Routine) - Authorized Specialty Diagnoses / Procedures Referred By Bradley t Referred To Contact BR IMAGING Diagnoses Encounter for screening mammogram for malignant neoplasm of breast Procedures KAM SCREENING SCREENING MAMMOGRAPHY BI 2-VIEW BREAST INC CAD Mauro Krishnamurthy MD [address] [place] [address] [facility] Imaging [address] [place] [address] Referral ID Status Reason Start Date Expiration Date Visits Requested Visits Authorized [id number] Authorized Auto-Generat ed Referral 02/18/2023 03/19/2024 1 1 * Consult, Test, Treat (Routine) - Authorized Specialty Diagnoses / Procedures Referred By Contac t Referred To Contact Gastroenterology Diagnoses Chronic recurrent pancreatitis (HCC) Procedures CONSULT TO GASTROENTEROLOGY OFFICE/OUTPATIENT [facility] 60-74 MINUTES Mauro Krishnamurthy MD [address] [place] [address] Referral ID Status Reason Start Date Expiration Date Visits Requested Visits Authorized [id number] Authorized PCP Requested Referral 02/18/2023 02/18/2024 1 1 [facility] for referral (narrative)* Outpatient Procedure (Routine) - Pending Review Specialty Diagnoses / Procedures Referred By Contac t Referred To [facility] Diagnoses Aneurysm of ascending aorta without rupture (HCC) Procedures ECG COMPLETE ECG ROUTINE ECG W/LEAST 12 LDS W/I&R Joaquin Cantrell MD [address] [place] [address] [facility] [place] [address] [place] [address] Referral ID Status Reason Start Date Expiration Date Visits Requested Visits Authorized [id number] Pending Review Auto-Generat ed Referral 10/09/2023 10/07/2024 1 1 [facility] for referral (narrative)* Diagnostic Procedure Only (Routine) - Pending Review Specialty Diagnoses / Procedures Referred By Contac t Referred To Contact BR IMAGING Diagnoses Encounter for screening mammogram for breast cancer Procedures KAM SCREENING W SURESH SCREENING DIGITAL BREAST TOMOSYNTHESIS BI SCREENING MAMMOGRAPHY BI 2-VIEW BREAST INC CAD Mauro Krishnamurthy MD [address] [place] [address] [facility] Imaging [address] [place] [address] Referral ID Status Reason Start Date Expiration Date Visits Requested Visits Authorized [id number] Pending Review Auto-Generat ed Referral 02/05/2024 03/06/2025 1 1 [facility] for referral (narrative)* Diagnostic Procedure Only (Routine) - Closed Specialty Diagnoses / Procedures Referred By Contac t Referred To Contact XR IMAGING Diagnoses Acute pain of right knee PMR (polymyalgia rheumatica) (HCC) Medication management senior care current use of systemic steroids Procedures XR HIP GENERAL 3V PELV/AP/LAT RIGHT RADEX HIP UNILATERAL WITH PELVIS 2-[place] [address] [place] [id number] [place] [address] Referral ID Status Reason Start Date Expiration Date V isits Requested Visits Authorized [id number] Closed Auto-Generate d Referral 12/21/2022 01/20/2024 1 1 * Diagnostic Procedure Only (Routine) - Closed Specialty Diagnoses / Procedures Referred By Contac t Referred To Contact XR IMAGING Diagnoses Acute pain of right knee PMR (polymyalgia rheumatica) (HCC) Medication management senior care current use of systemic steroids Procedures XR KNEE GENERAL 4V AP BOTH/PA BOTH/LAT/MERC BILATERAL RADIOLOGIC EXAM KNEE COMPLETE 4/[place] [address] [place] [id number] [place] [address] Referral ID Status Reason Start Date Expiration Date V isits Requested Visits Authorized [id number] Closed Auto-Generate d Referral 12/21/2022 01/20/2024 1 1 [facility] for referral (narrative)* Diagnostic Procedure Only (Routine) - Closed Specialty Diagnoses / Procedures Referred By Contac t Referred To Contact XR IMAGING Diagnoses Hip pain Procedures XR HIP BILATERAL 5V PEL/AP/LAT EACH HIP RADEX HIPS BILATERAL WITH PELVIS MINIMUM 5 VIEWS Minkler, Mauro J, MD [address] [place] [address] [place] [address] Referral ID Status Reason Start Date Expiration Date V isits Requested Visits Authorized [id number] Closed Auto-Generate d Referral 07/04/2022 08/03/2023 1 1 * Diagnostic Procedure Only (Routine) - Closed Specialty Diagnoses / Procedures Referred By Contac t Referred To Contact XR IMAGING Diagnoses Neck pain Procedures XR CERV OTHER 4V AP/LAT/OBL RADEX SPINE CERVICAL 4 OR 5 VIEWS Mauro Krishnamurthy MD [address] [place] [address] [place] [address] Referral ID Status Reason Start Date Expiration Date V isits Requested Visits Authorized [id number] Closed Auto-Generate d Referral 07/04/2022 08/03/2023 1 1 * Diagnostic Procedure Only (Routine) - Closed Specialty Diagnoses / Procedures Referred By Contac t Referred To Contact XR IMAGING Diagnoses Right knee pain, unspecified chronicity Procedures XR KNEE GENERAL 4V AP BOTH/PA BOTH/LAT/MERC RIGHT RADIOLOGIC EXAM KNEE COMPLETE 4/MORE VIEWS Guadalupe Gaitan DO [address] [place] [place] [id number] [place] [address] Referral ID Status Reason Start Date Expiration Date V isits Requested Visits Authorized [id number] Closed Auto-Generate d Referral 06/13/2022 07/13/2023 1 1 [facility] for referral (narrative)* Diagnostic Procedure Only (Routine) - Authorized Specialty Diagnoses / Procedures Referred By Contac t Referred To Contact XR IMAGING Diagnoses Other osteoporosis Procedures DXA-AXIAL SKELETON DXA BONE DENSITY STUDY 1/> SITES AXIAL SKEL Mauro Krishnamurthy MD [address] [place] [address] [place] [address] Referral ID Status Reason Start Date Expiration Date Visits Requested Visits Authorized [id number] Authorized Auto-Generat ed Referral 05/15/2024 06/14/2025 1 1 * Consult, Test, Treat (Routine) - Authorized Specialty Diagnoses / Procedures Referred By Contac t Referred To Contact Rheumatology Diagnoses PMR (polymyalgia rheumatica) (HCC) Other osteoporosis Procedures CONSULT TO RHEUM/IMMUN DISEASE OFFICE/OUTPATIENT [facility] MDM 60 MINUTES Mauro Krishnamurthy MD [address] [place] [address] Referral ID Status Reason Start Date Expiration Date Visits Requested Visits Authorized [id number] Authorized PCP Requested Referral 05/15/2024 05/15/2025 1 1 * Transition of Care (Routine) - Ref Not Required Specialty Diagnoses / Procedures Referred By Contac t Referred To Contact Gastroenterology Diagnoses Chronic pancreatitis, unspecified pancreatitis type (HCC) Procedures CONSULT TO GASTROENTEROLOGY Mauro Krishnamurthy MD [address] [place] [address] Referral ID Status Reason Start Date Expiration Date Visits Requested Visits Authorized [id number] Ref Not Required PCP Requested Referral 05/15/2024 05/15/2025 1 1 * Diagnostic Procedure Only (Routine) - Authorized Specialty Diagnoses / Procedures Referred By Contac t Referred To Contact US IMAGING Diagnoses Thyroid nodule Procedures US THYROID/PARATHYROID US SOFT TISSUE HEAD & NECK REAL TIME IMGE DOCM Mauro Krishnamurthy MD [address] [place] [address] [place] [address] Referral ID Status Reason Start Date Expiration Date Visits Requested Visits Authorized [id number] Authorized Auto-Generat ed Referral 05/15/2024 06/14/2025 1 1 [facility] for visit Narrative* Diagnostic Procedure Only (Routine) - Closed Specialty Diagnoses / Procedures Referred By Contac t Referred To Contact XR IMAGING Diagnoses Hip pain Procedures XR HIP BILATERAL 5V PEL/AP/LAT EACH HIP RADEX HIPS BILATERAL WITH PELVIS MINIMUM 5 VIEWS Mauro Krishnamurthy MD [address] [place] [address] [place] [address] Referral ID Status Reason Start Date Expiration Date V isits Requested Visits Authorized [id number] Closed Auto-Generate d Referral 07/04/2022 08/03/2023 1 1 [facility] for visit Narrative* Diagnostic Procedure Only (Routine) - Closed Specialty Diagnoses / Procedures Referred By Contac t Referred To Contact XR IMAGING Diagnoses Other osteoporosis Procedures DXA-AXIAL SKELETON DXA BONE DENSITY STUDY SITES AXIAL SKEL Mauro Krishnamurthy MD [address] [place] [address] [place] [address] Referral ID Status Reason Start Date Expiration Date V isits Requested Visits Authorized [id number] Closed Auto-Generate d Referral 05/15/2024 06/14/2025 1 1 [facility] Summary Purpose Family History No Family History Records Found Relationship Condition Age at Onset Recorded Date/T juan mother Malignant neoplasm of colon Unknown father Malignant neoplasm Unknown sister Malignant neoplasm of breast Unknown brother Malignant neoplasm Unknown Advance Directives No Advanced Directives Records Found Advance Directive Response Recorded Date/ Time Advance Directives No September 12:18pm Living Will No October 19, 2021 5:12pm Power of Telephone Clerk No October 19 5:12pm Documents on File Type Date Recorded 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 Expl 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 Advance Directive(s) 09/25/2021 12:21 PM Advance Directive(s) 12/26/2017 12:42 PM Advance Directive(s) 04/05/2016 12:13 PM Documents on File Type Date Recorded 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 Expl anation Advance Directive(s) 09/25/2021 12:21 PM Advance Directive(s) 12/26/2017 12:42 PM Advance Directive(s) 04/05/2016 12:13 PM Advance Directive Response Recorded Date/ Time Advance Directives No September 12:18pm Living Will No April 13, 10:40am Power of Telephone Clerk No April 13, 2022 10:40am Advance Directive Response Recorded Date/ Time Advance Directives No September 12:18pm Living Will No December 12, 2022 5: 35pm Power of Telephone Clerk No December 12, 2022 5:35pm Advance Directive Response Recorded Date/ Time Advance Directives No September 12:18pm Living Will No February 04, 2023 5:09am Power of Telephone Clerk No February 04 5:09am Advance Directive Response Recorded Date/ Time Advance Directives No September 12:18pm Living Will No February 22, 2023 12:13pm Power of Telephone Clerk No February 22 12:13pm Advance Directive Response Recorded Date/ Time Advance Directives No September 12:18pm Living Will No February 22, 2023 6:48pm Power of Telephone Clerk No February 22 6:48pm Advance Directive Response Recorded Date/ Time Advance Directives No September 12:18pm Living Will No February 24, 2023 4:12pm Power of Telephone Clerk No February 24 4:12pm Advance Directive Response Recorded Date/ Time Advance Directives No September 12:18pm Living Will No February 25, 2023 12:39am Power of Telephone Clerk No February 25 12:39am Advance Directive Response Recorded Date/ Time Advance Directives No September 11:18am Living Will No February 24, 2023 11:39pm Power of Telephone Clerk No February 24 11:39pm Chief Complaint and Reason for Visit Chief Complaint VERTIGO, DEBILITY VERTIGO, DEBILITY VERTIGO, DEBILITY VERTIGO/DEBILITY Reason for Visit Debility Vertigo UTI (urinary tract infection) Benign paroxysmal positional vertigo Debility Dehydration Depression Dizziness Gastroesophageal reflux disease Nausea Orthostatic hypotension Urinary tract infection Hypertension Chief Complaint general weakness, fe marlee, uti Chief Complaint DVT? Chief Complaint DVT? ACUTE PANCREATITIS, UTI Reason for Visit Acute kidney injury Acute pancreatitis GCA (giant cell arteritis) UTI (urinary tract infection) Chief Complaint DVT? ACUTE PANCREATITIS, UTI ACUTE PANCREATITIS, UTI ACUTE PANCREATITIS, UTI ACUTE PANCREATITIS, UTI ACUTE PANCREATITIS, UTI ACUTE PANCREATITIS, UTI ACUTE PANCREATITIS, UTI ACUTE PANCREATITIS, UTI ACUTE PANCREATITIS, UTI ABDOMINAL PAIN Reason for Visit GCA (giant cell biju ritis) Acute kidney injury Acute pancreatitis UTI (urinary tract infection) Acute recurrent pancreatitis Chief Complaint DVT? ACUTE PANCREATITIS, UTI ACUTE PANCREATITIS, UTI ACUTE PANCREATITIS, UTI ACUTE PANCREATITIS, UTI ACUTE PANCREATITIS, UTI ACUTE PANCREATITIS, UTI ACUTE PANCREATITIS, UTI ACUTE PANCREATITIS, UTI ACUTE PANCREATITIS, UTI ABDOMINAL PAIN ABDOMINAL PAIN Reason for Visit GCA (giant cell biju ritis) Acute kidney injury Acute pancreatitis UTI (urinary tract infection) Acute recurrent pancreatitis Chief Complaint DVT? ACUTE PANCREATITIS, UTI ACUTE PANCREATITIS, UTI ACUTE PANCREATITIS, UTI ACUTE PANCREATITIS, UTI ACUTE PANCREATITIS, UTI ACUTE PANCREATITIS, UTI ACUTE PANCREATITIS, UTI ACUTE PANCREATITIS, UTI ACUTE PANCREATITIS, UTI ABDOMINAL PAIN ABDOMINAL PAIN INTRACTABLE N/V/ABD PAIN, CHRONIC PANCREATITIS Reason for Visit GCA (giant cell biju ritis) Acute kidney injury Acute pancreatitis UTI (urinary tract infection) Acute recurrent pancreatitis Acute recurrent pancreatitis Chief Complaint DVT? ACUTE PANCREATITIS, UTI ACUTE PANCREATITIS, UTI ACUTE PANCREATITIS, UTI ACUTE PANCREATITIS, UTI ACUTE PANCREATITIS, UTI ACUTE PANCREATITIS, UTI ACUTE PANCREATITIS, UTI ACUTE PANCREATITIS, UTI ACUTE PANCREATITIS, UTI ABDOMINAL PAIN ABDOMINAL PAIN INTRACTABLE N/V/ABD PAIN, CHRONIC PANCREATITIS INTRACTABLE N/V/ABD PAIN, CHRONIC PANCREATITIS INTRACTABLE N/V/ABD PAIN, CHRONIC PANCREATITIS INTRACTABLE N/V/ABD PAIN, CHRONIC PANCREATITIS INTRACTABLE N/V/ABD PAIN, CHRONIC PANCREATITIS INTRACTABLE N/V/ABD PAIN, CHRONIC PANCREATITIS INTRACTABLE N/V/ABD PAIN, CHRONIC PANCREATITIS INTRACTABLE N/V/ABD PAIN, CHRONIC PANCREATITIS INTRACTABLE N/V/ABD PAIN, CHRONIC PANCREATITIS INTRACTABLE N/V/ABD PAIN, CHRONIC PANCREATITIS INTRACTABLE N/V/ABD PAIN, CHRONIC PANCREATITIS ENDOCRINE TUMOR Reason for Visit GCA (giant cell biju ritis) Acute kidney injury Acute pancreatitis UTI (urinary tract infection) Acute recurrent pancreatitis Diarrhea Hypokalemia Hypophosphatemia Chronic pancreatitis Acute recurrent pancreatitis Chief Complaint ACUTE PANCREATITIS, UTI ACUTE PANCREATITIS, UTI ACUTE PANCREATITIS, UTI ABDOMINAL PAIN ABDOMINAL PAIN INTRACTABLE N/V/ABD PAIN, CHRONIC PANCREATITIS INTRACTABLE N/V/ABD PAIN, CHRONIC PANCREATITIS INTRACTABLE N/V/ABD PAIN, CHRONIC PANCREATITIS INTRACTABLE N/V/ABD PAIN, CHRONIC PANCREATITIS INTRACTABLE N/V/ABD PAIN, CHRONIC PANCREATITIS INTRACTABLE N/V/ABD PAIN, CHRONIC PANCREATITIS INTRACTABLE N/V/ABD PAIN, CHRONIC PANCREATITIS INTRACTABLE N/V/ABD PAIN, CHRONIC PANCREATITIS INTRACTABLE N/V/ABD PAIN, CHRONIC PANCREATITIS INTRACTABLE N/V/ABD PAIN, CHRONIC PANCREATITIS INTRACTABLE N/V/ABD PAIN, CHRONIC PANCREATITIS ADMISSION EX[facility] ENDOCRINE TUMOR ADMISSION EXAM LAB WORK LABWORK LAB WORK NEW [facility] LAB WORK [facility] WORK [facility] MONTHLY EXAM [facility] Reason for Visit GCA (giant cell biju ritis) Acute kidney injury Acute pancreatitis UTI (urinary tract infection) Acute recurrent pancreatitis Diarrhea Hypokalemia Hypophosphatemia Chronic pancreatitis Acute recurrent pancreatitis Chief Complaint ABDOMINAL PAIN ABDOMINAL PAIN INTRACTABLE N/V/ABD PAIN, CHRONIC PANCREATITIS INTRACTABLE N/V/ABD PAIN, CHRONIC PANCREATITIS INTRACTABLE N/V/ABD PAIN, CHRONIC PANCREATITIS INTRACTABLE N/V/ABD PAIN, CHRONIC PANCREATITIS INTRACTABLE N/V/ABD PAIN, CHRONIC PANCREATITIS INTRACTABLE N/V/ABD PAIN, CHRONIC PANCREATITIS INTRACTABLE N/V/ABD PAIN, CHRONIC PANCREATITIS INTRACTABLE N/V/ABD PAIN, CHRONIC PANCREATITIS INTRACTABLE N/V/ABD PAIN, CHRONIC PANCREATITIS INTRACTABLE N/V/ABD PAIN, CHRONIC PANCREATITIS INTRACTABLE N/V/ABD PAIN, CHRONIC PANCREATITIS ADMISSION EXAM [facility] ENDOCRINE TUMOR ADMISSION EXAM LAB WORK LABWORK LAB WORK NEW CONCERN LAB WORK [facility] LAB WORK NEW [facility] LABWORK [facility] WORK [facility] MONTHLY EXAM [facility] WORK [facility] Reason for Visit Acute recurrent panc reatitis Diarrhea Hypokalemia Hypophosphatemia Chronic pancreatitis Acute recurrent pancreatitis Chief Complaint ABDOMINAL PAIN ABDOMINAL PAIN INTRACTABLE N/V/ABD PAIN, CHRONIC PANCREATITIS INTRACTABLE N/V/ABD PAIN, CHRONIC PANCREATITIS INTRACTABLE N/V/ABD PAIN, CHRONIC PANCREATITIS INTRACTABLE N/V/ABD PAIN, CHRONIC PANCREATITIS INTRACTABLE N/V/ABD PAIN, CHRONIC PANCREATITIS INTRACTABLE N/V/ABD PAIN, CHRONIC PANCREATITIS INTRACTABLE N/V/ABD PAIN, CHRONIC PANCREATITIS INTRACTABLE N/V/ABD PAIN, CHRONIC PANCREATITIS INTRACTABLE N/V/ABD PAIN, CHRONIC PANCREATITIS INTRACTABLE N/V/ABD PAIN, CHRONIC PANCREATITIS INTRACTABLE N/V/ABD PAIN, CHRONIC PANCREATITIS ADMISSION EXAM [facility] ENDOCRINE TUMOR ADMISSION EXAM LAB WORK LABWORK LAB WORK NEW CONCERN LAB WORK [facility] LAB WORK NEW [facility] LABWORK [facility] WORK [facility] MONTHLY EXAM [facility] LAB WORK [facility] WORK [facility] Reason for Visit Acute recurrent panc reatitis Diarrhea Hypokalemia Hypophosphatemia Chronic pancreatitis Acute recurrent pancreatitis Chief Complaint ABDOMINAL PAIN ABDOMINAL PAIN INTRACTABLE N/V/ABD PAIN, CHRONIC PANCREATITIS INTRACTABLE N/V/ABD PAIN, CHRONIC PANCREATITIS INTRACTABLE N/V/ABD PAIN, CHRONIC PANCREATITIS INTRACTABLE N/V/ABD PAIN, CHRONIC PANCREATITIS INTRACTABLE N/V/ABD PAIN, CHRONIC PANCREATITIS INTRACTABLE N/V/ABD PAIN, CHRONIC PANCREATITIS INTRACTABLE N/V/ABD PAIN, CHRONIC PANCREATITIS INTRACTABLE N/V/ABD PAIN, CHRONIC PANCREATITIS INTRACTABLE N/V/ABD PAIN, CHRONIC PANCREATITIS INTRACTABLE N/V/ABD PAIN, CHRONIC PANCREATITIS INTRACTABLE N/V/ABD PAIN, CHRONIC PANCREATITIS ADMISSION EXAM [facility] ENDOCRINE TUMOR ADMISSION EXAM LAB WORK LABWORK LAB WORK NEW [facility]CERN LAB WORK [facility] LAB WORK [facility] LABWORK [facility] WORK [facility] MONTHLY EXAM [facility] WORK NEW [employer]CERN NEW [facility] MONTHLY EXAM [facility] Reason for Visit Acute recurrent panc reatitis Diarrhea Hypokalemia Hypophosphatemia Chronic pancreatitis Acute recurrent pancreatitis Chief Complaint ABDOMINAL PAIN ABDOMINAL PAIN INTRACTABLE N/V/ABD PAIN, CHRONIC PANCREATITIS INTRACTABLE N/V/ABD PAIN, CHRONIC PANCREATITIS INTRACTABLE N/V/ABD PAIN, CHRONIC PANCREATITIS INTRACTABLE N/V/ABD PAIN, CHRONIC PANCREATITIS INTRACTABLE N/V/ABD PAIN, CHRONIC PANCREATITIS INTRACTABLE N/V/ABD PAIN, CHRONIC PANCREATITIS INTRACTABLE N/V/ABD PAIN, CHRONIC PANCREATITIS INTRACTABLE N/V/ABD PAIN, CHRONIC PANCREATITIS INTRACTABLE N/V/ABD PAIN, CHRONIC PANCREATITIS INTRACTABLE N/V/ABD PAIN, CHRONIC PANCREATITIS INTRACTABLE N/V/ABD PAIN, CHRONIC PANCREATITIS ADMISSION EXAM [facility] ENDOCRINE TUMOR ADMISSION EXAM LAB WORK LABWORK LAB WORK NEW CONCERN LAB WORK [facility] LAB WORK NEW [facility] LABWORK [facility] WORK [facility] MONTHLY EXAM [facility] LAB WORK [facility] LAB WORK [facility] LAB WORK NEW CONCERN NEW [facility] MONTHLY EXAM [facility] Reason for Visit Acute recurrent panc reatitis Diarrhea Hypokalemia Hypophosphatemia Chronic pancreatitis Acute recurrent pancreatitis Chief Complaint INTRACTABLE N/V/ABD PAIN, CHRONIC PANCREATITIS INTRACTABLE N/V/ABD PAIN, CHRONIC PANCREATITIS INTRACTABLE N/V/ABD PAIN, CHRONIC PANCREATITIS INTRACTABLE N/V/ABD PAIN, CHRONIC PANCREATITIS INTRACTABLE N/V/ABD PAIN, CHRONIC PANCREATITIS INTRACTABLE N/V/ABD PAIN, CHRONIC PANCREATITIS ADMISSION EXAM [facility] ENDOCRINE TUMOR ADMISSION EXAM LAB WORK LABWORK LAB WORK NEW CONCERN LAB WORK [facility] LAB WORK [facility]WORK [facility] MONTHLY EXAM [facility] LAB WORK NEW CONCERN NEW [facility] MONTHLY EXAM [facility] Reason for Visit Diarrhea Hypokalemia Hypophosphatemia Chronic pancreatitis Acute recurrent pancreatitis Reason for Referral Specialty Diagnoses / Procedures Referred By Contac t Referred To Contact Orthopedics Diagnoses Right leg pain Pain in both upper arms Neck pain Procedures CONSULT TO ORTHOPAEDICS OFFICE/OUTPATIENT [facility] 60-74 MINUTES Abbe Whitnig PA-C [address] [place] [address] Referral ID Status Reason Start Date Expiration Date Visits Requested Visits Authorized [id number] Authorized PCP Requested Referral 2 05/31/2023 1 1 Specialty Diagnoses / Procedures Referred By Contac t Referred To Contact Rheumatology Diagnoses Elevated sed rate Procedures CONSULT TO RHEUM/IMMUN DISEASE OFFICE/OUTPATIENT [facility] 60-74 MINUTES Mauro Krishnamurthy MD [address] [place] [address] Referral ID Status Reason Start Date Expiration Date Visits Requested Visits Authorized [id number] Authorized PCP Requested Referral 05/10/2022 05/10/2023 1 1 Specialty Diagnoses / Procedures Referred By Contac t Referred To Contact Rheumatology Diagnoses PMR (polymyalgia rheumatica) ([facility]) Procedures CONSULT TO RHEUM/IMMUN DISEASE OFFICE/OUTPATIENT [facility] 60-74 MINUTES Mauro Krishnamurthy MD [address] [place] [address] Referral ID Status Reason Start Date Expiration Date Visits Requested Visits Authorized [id number] Authorized PCP Requested Referral 3 06/25/2024 1 1 Specialty Diagnoses / Procedures Referred By Contac t Referred To Contact Cardiology Diagnoses Aneurysm of ascending aorta without rupture (HCC) Procedures CONSULT TO CARDIOLOGY OFFICE/OUTPATIENT [facility] 60-74 MINUTES Mauro Krishnamurthy MD [address] [place] [address] Referral ID Status Reason Start Date Expiration Date Visits Requested Visits Authorized [id number] Authorized PCP Requested Referral 3 06/25/2024 1 1 Specialty Diagnoses / Procedures Referred By Contac t Referred [facility] Diagnoses Aneurysm of ascending aorta without rupture (HCC) Procedures ECHO ECHO TTHRC R-T 2D W/WOM-MODE COMPL SPEC&COLR D Mauro Krishnamurthy MD [address] [place] [address] [facility] [address] [place] [address] Referral ID Status Reason Start Date Expiration Date Visits Requested Visits Authorized [id number] Authorized Auto-Generat ed Referral 3 06/25/2024 1 1 Specialty Diagnoses / Procedures Referred By Contac t Referred To Contact Mauro Krishnamurthy MD [address] [place] [address] Referral ID Status Reason Start Date Expiration Date Visits Re quested Visits Authorized [id number] Closed 1 1 Specialty Diagnoses / Procedures Referred By Contac t Referred To Contact Diagnoses Patrizia Irwin, DYE COLORIST DYER.GROUNDS/MAINTENANCE SPECIALIST [address] [place] [address] Referral ID Status Reason Start Date Expiration Date V isits Requested Visits Authorized [id number] Pending Review 1 1 Specialty Diagnoses / Procedures Referred By Contac t Referred To Contact Endocrinology Diagnoses Thyroid nodule Procedures CONSULT TO ENDOCRINOLOGY OFFICE/OUTPATIENT [facility] 60 MINUTES Mauro Krishnamurthy MD [address] [place] [address] Referral ID Status Reason Start Date Expiration Date Visits Requested Visits Authorized [id number] Authorized PCP Requested Referral 4 06/30/2025 1 1 Specialty Diagnoses / Procedures Referred By Contac [place] [address] [place] [address] Referral ID Status Reason Start Date Expiration Date Visits Re quested Visits Authorized [id number] Closed 1 1 Medications Administered Section Active Administered Medications - up to 3 most recent administrations Medication Order MAR Action Action Date Dose Rate Site denosumab 60 mg injection (PROLIA) 60 mg, SUBCUTANEOUS, EVERY 6 MONTHS, 2 doses, First dose on 08/22/22 at 1430, Last dose on 02/18/23 at 1430, Allow To Come To Room Temperature Before Administration. REFRIGERATE Given 08/22/2022 2:23 PM EST 60 mg Arm, Right Administered Medications Medication Order MAR Action Action Date Dose Rate Site tuberculin skin test, unspecified formulation Given 10/18/2016 0.1 ml tuberculin skin test, unspecified formulation Given 10/11/2016 0.1 ml Additional Source Comments INFORMATION SOURCE (unrecogn ized section and content) DATE CREATED AUTHOR 01/31/2018 [facility] DATE CREATED AUTHOR AUTHOR'S ORGANIZ ATION 01/31/2018 [facility] DATE CREATED AUTHOR AUTHOR'S ORGANIZ ATION 09/28/2021 [facility] DATE CREATED AUTHOR AUTHOR'S ORGANIZ ATION 11/28/[address] [facility] DATE CREATED AUTHOR AUTHOR'S ORGANIZ ATION 06/12/2025 [facility] Goals (unrecognized section and content) Goals may be documented in a n alternate sectionGoals may be documented in an alternate sectionGoals may be documented in an alternate sectionGoals may be documented in an alternate sectionGoals may be documented in an alternate section Source Comments (unrecognize d section and content) In the event this informatio n is protected by the Federal Confidentiality of Alcohol and Drug Abuse Patient Records regulations: The Federal rules restrict any use of the information to criminally investigate or prosecute any alcohol or drug abuse patient.[facility] the event this information is protected by the Federal Confidentiality of Alcohol and Drug Abuse Patient Records regulations: The Federal rules restrict any use of the information to criminally investigate or prosecute any alcohol or drug abuse patient.[facility] Center[facility] the event this information is protected by the Federal Confidentiality of Alcohol and Drug Abuse Patient Records regulations: The Federal rules restrict any use of the information to criminally investigate or prosecute any alcohol or drug abuse patient.[facility] Center[facility] the event this information is protected by the Federal Confidentiality of Alcohol and Drug Abuse Patient Records regulations: The Federal rules restrict any use of the information to criminally investigate or prosecute any alcohol or drug abuse patient.[facility] the event this information is protected by the Federal Confidentiality of Alcohol and Drug Abuse Patient Records regulations: The Federal rules restrict any use of the information to criminally investigate or prosecute any alcohol or drug abuse patient.[facility] Center[facility] the event this information is protected by the Federal Confidentiality of Alcohol and Drug Abuse Patient Records regulations: The Federal rules restrict any use of the information to criminally investigate or prosecute any alcohol or drug abuse patient.[facility] Center[facility] the event this information is protected by the Federal Confidentiality of Alcohol and Drug Abuse Patient Records regulations: The Federal rules restrict any use of the information to criminally investigate or prosecute any alcohol or drug abuse patient.[facility] the event this information is protected by the Federal Confidentiality of Alcohol and Drug Abuse Patient Records regulations: The Federal rules restrict any use of the information to criminally investigate or prosecute any alcohol or drug abuse patient.[facility] Center[facility] the event this information is protected by the Federal Confidentiality of Alcohol and Drug Abuse Patient Records regulations: The Federal rules restrict any use of the information to criminally investigate or prosecute any alcohol or drug abuse patient.[facility] Center[facility] the event this information is protected by the Federal Confidentiality of Alcohol and Drug Abuse Patient Records regulations: The Federal rules restrict any use of the information to criminally investigate or prosecute any alcohol or drug abuse patient.[facility] Center[facility] the event this information is protected by the Federal Confidentiality of Alcohol and Drug Abuse Patient Records regulations: The Federal rules restrict any use of the information to criminally investigate or prosecute any alcohol or drug abuse patient.[facility] Center[facility] the event this information is protected by the Federal Confidentiality of Alcohol and Drug Abuse Patient Records regulations: The Federal rules restrict any use of the information to criminally investigate or prosecute any alcohol or drug abuse patient.[facility] Center[facility] the event this information is protected by the Federal Confidentiality of Alcohol and Drug Abuse Patient Records regulations: The Federal rules restrict any use of the information to criminally investigate or prosecute any alcohol or drug abuse patient.[facility] Center[facility] the event this information is protected by the Federal Confidentiality of Alcohol and Drug Abuse Patient Records regulations: The Federal rules restrict any use of the information to criminally investigate or prosecute any alcohol or drug abuse patient.[facility] Center[facility] the event this information is protected by the Federal Confidentiality of Alcohol and Drug Abuse Patient Records regulations: The Federal rules restrict any use of the information to criminally investigate or prosecute any alcohol or drug abuse patient.[facility] Center[facility] the event this information is protected by the Federal Confidentiality of Alcohol and Drug Abuse Patient Records regulations: The Federal rules restrict any use of the information to criminally investigate or prosecute any alcohol or drug abuse patient.[facility]In the event this information is protected by the Federal Confidentiality of Alcohol and Drug Abuse Patient Records regulations: The Federal rules restrict any use of the information to criminally investigate or prosecute any alcohol or drug abuse patient.[facility] CenterIn the event this information is protected by the Federal Confidentiality of Alcohol and Drug Abuse Patient Records regulations: The Federal rules restrict any use of the information to criminally investigate or prosecute any alcohol or drug abuse patient.[facility] CenterIn the event this information is protected by the Federal Confidentiality of Alcohol and Drug Abuse Patient Records regulations: The Federal rules restrict any use of the information to criminally investigate or prosecute any alcohol or drug abuse patient.[facility] CenterIn the event this information is protected by the Federal Confidentiality of Alcohol and Drug Abuse Patient Records regulations: The Federal rules restrict any use of the information to criminally investigate or prosecute any alcohol or drug abuse patient.[facility] CenterIn the event this information is protected by the Federal Confidentiality of Alcohol and Drug Abuse Patient Records regulations: The Federal rules restrict any use of the information to criminally investigate or prosecute any alcohol or drug abuse patient.[facility] CenterIn the event this information is protected by the Federal Confidentiality of Alcohol and Drug Abuse Patient Records regulations: The Federal rules restrict any use of the information to criminally investigate or prosecute any alcohol or drug abuse patient.[facility]In the event this information is protected by the Federal Confidentiality of Alcohol and Drug Abuse Patient Records regulations: The Federal rules restrict any use of the information to criminally investigate or prosecute any alcohol or drug abuse patient.[facility] CenterIn the event this information is protected by the Federal Confidentiality of Alcohol and Drug Abuse Patient Records regulations: The Federal rules restrict any use of the information to criminally investigate or prosecute any alcohol or drug abuse patient.[facility] CenterIn the event this information is protected by the Federal Confidentiality of Alcohol and Drug Abuse Patient Records regulations: The Federal rules restrict any use of the information to criminally investigate or prosecute any alcohol or drug abuse patient.[facility]In the event this information is protected by the Federal Confidentiality of Alcohol and Drug Abuse Patient Records regulations: The Federal rules restrict any use of the information to criminally investigate or prosecute any alcohol or drug abuse patient.[facility] CenterIn the event this information is protected by the Federal Confidentiality of Alcohol and Drug Abuse Patient Records regulations: The Federal rules restrict any use of the information to criminally investigate or prosecute any alcohol or drug abuse patient.[facility] CenterIn the event this information is protected by the Federal Confidentiality of Alcohol and Drug Abuse Patient Records regulations: The Federal rules restrict any use of the information to criminally investigate or prosecute any alcohol or drug abuse patient.[facility]In the event this information is protected by the Federal Confidentiality of Alcohol and Drug Abuse Patient Records regulations: The Federal rules restrict any use of the information to criminally investigate or prosecute any alcohol or drug abuse patient.[facility]In the event this information is protected by the Federal Confidentiality of Alcohol and Drug Abuse Patient Records regulations: The Federal rules restrict any use of the information to criminally investigate or prosecute any alcohol or drug abuse patient.[facility]In the event this information is protected by the Federal Confidentiality of Alcohol and Drug Abuse Patient Records regulations: The Federal rules restrict any use of the information to criminally investigate or prosecute any alcohol or drug abuse patient.[facility] CenterIn the event this information is protected by the Federal Confidentiality of Alcohol and Drug Abuse Patient Records regulations: The Federal rules restrict any use of the information to criminally investigate or prosecute any alcohol or drug abuse patient.[facility] CenterIn the event this information is protected by the Federal Confidentiality of Alcohol and Drug Abuse Patient Records regulations: The Federal rules restrict any use of the information to criminally investigate or prosecute any alcohol or drug abuse patient.[facility] CenterIn the event this information is protected by the Federal Confidentiality of Alcohol and Drug Abuse Patient Records regulations: The Federal rules restrict any use of the information to criminally investigate or prosecute any alcohol or drug abuse patient.[facility] CenterIn the event this information is protected by the Federal Confidentiality of Alcohol and Drug Abuse Patient Records regulations: The Federal rules restrict any use of the information to criminally investigate or prosecute any alcohol or drug abuse patient.[facility] CenterIn the event this information is protected by the Federal Confidentiality of Alcohol and Drug Abuse Patient Records regulations: The Federal rules restrict any use of the information to criminally investigate or prosecute any alcohol or drug abuse patient.[facility]In the event this information is protected by the Federal Confidentiality of Alcohol and Drug Abuse Patient Records regulations: The Federal rules restrict any use of the information to criminally investigate or prosecute any alcohol or drug abuse patient.[facility] CenterIn the event this information is protected by the Federal Confidentiality of Alcohol and Drug Abuse Patient Records regulations: The Federal rules restrict any use of the information to criminally investigate or prosecute any alcohol or drug abuse patient.[facility]In the event this information is protected by the Federal Confidentiality of Alcohol and Drug Abuse Patient Records regulations: The Federal rules restrict any use of the information to criminally investigate or prosecute any alcohol or drug abuse patient.[facility] CenterIn the event this information is protected by the Federal Confidentiality of Alcohol and Drug Abuse Patient Records regulations: The Federal rules restrict any use of the information to criminally investigate or prosecute any alcohol or drug abuse patient.[facility] the event this information is protected by the Federal Confidentiality of Alcohol and Drug Abuse Patient Records regulations: The Federal rules restrict any use of the information to criminally investigate or prosecute any alcohol or drug abuse patient.[facility] CenterIn the event this information is protected by the Federal Confidentiality of Alcohol and Drug Abuse Patient Records regulations: The Federal rules restrict any use of the information to criminally investigate or prosecute any alcohol or drug abuse patient.[facility] CenterIn the event this information is protected by the Federal Confidentiality of Alcohol and Drug Abuse Patient Records regulations: The Federal rules restrict any use of the information to criminally investigate or prosecute any alcohol or drug abuse patient.[facility] the event this information is protected by the Federal Confidentiality of Alcohol and Drug Abuse Patient Records regulations: The Federal rules restrict any use of the information to criminally investigate or prosecute any alcohol or drug abuse patient.[facility]In the event this information is protected by the Federal Confidentiality of Alcohol and Drug Abuse Patient Records regulations: The Federal rules restrict any use of the information to criminally investigate or prosecute any alcohol or drug abuse patient.[facility]In the event this information is protected by the Federal Confidentiality of Alcohol and Drug Abuse Patient Records regulations: The Federal rules restrict any use of the information to criminally investigate or prosecute any alcohol or drug abuse patient.[facility]In the event this information is protected by the Federal Confidentiality of Alcohol and Drug Abuse Patient Records regulations: The Federal rules restrict any use of the information to criminally investigate or prosecute any alcohol or drug abuse patient.[facility]In the event this information is protected by the Federal Confidentiality of Alcohol and Drug Abuse Patient Records regulations: The Federal rules restrict any use of the information to criminally investigate or prosecute any alcohol or drug abuse patient.[facility]In the event this information is protected by the Federal Confidentiality of Alcohol and Drug Abuse Patient Records regulations: The Federal rules restrict any use of the information to criminally investigate or prosecute any alcohol or drug abuse patient.[facility]In the event this information is protected by the Federal Confidentiality of Alcohol and Drug Abuse Patient Records regulations: The Federal rules restrict any use of the information to criminally investigate or prosecute any alcohol or drug abuse patient.[facility]In the event this information is protected by the Federal Confidentiality of Alcohol and Drug Abuse Patient Records regulations: The Federal rules restrict any use of the information to criminally investigate or prosecute any alcohol or drug abuse patient.[facility]In the event this information is protected by the Federal Confidentiality of Alcohol and Drug Abuse Patient Records regulations: The Federal rules restrict any use of the information to criminally investigate or prosecute any alcohol or drug abuse patient.[facility]In the event this information is protected by the Federal Confidentiality of Alcohol and Drug Abuse Patient Records regulations: The Federal rules restrict any use of the information to criminally investigate or prosecute any alcohol or drug abuse patient.[facility]In the event this information is protected by the Federal Confidentiality of Alcohol and Drug Abuse Patient Records regulations: The Federal rules restrict any use of the information to criminally investigate or prosecute any alcohol or drug abuse patient.[facility]In the event this information is protected by the Federal Confidentiality of Alcohol and Drug Abuse Patient Records regulations: The Federal rules restrict any use of the information to criminally investigate or prosecute any alcohol or drug abuse patient.[facility]In the event this information is protected by the Federal Confidentiality of Alcohol and Drug Abuse Patient Records regulations: The Federal rules restrict any use of the information to criminally investigate or prosecute any alcohol or drug abuse patient.[facility]In the event this information is protected by the Federal Confidentiality of Alcohol and Drug Abuse Patient Records regulations: The Federal rules restrict any use of the information to criminally investigate or prosecute any alcohol or drug abuse patient.[facility]In the event this information is protected by the Federal Confidentiality of Alcohol and Drug Abuse Patient Records regulations: The Federal rules restrict any use of the information to criminally investigate or prosecute any alcohol or drug abuse patient.[facility]In the event this information is protected by the Federal Confidentiality of Alcohol and Drug Abuse Patient Records regulations: The Federal rules restrict any use of the information to criminally investigate or prosecute any alcohol or drug abuse patient.[facility]In the event this information is protected by the Federal Confidentiality of Alcohol and Drug Abuse Patient Records regulations: The Federal rules restrict any use of the information to criminally investigate or prosecute any alcohol or drug abuse patient.[facility]In the event this information is protected by the Federal Confidentiality of Alcohol and Drug Abuse Patient Records regulations: The Federal rules restrict any use of the information to criminally investigate or prosecute any alcohol or drug abuse patient.[facility]In the event this information is protected by the Federal Confidentiality of Alcohol and Drug Abuse Patient Records regulations: The Federal rules restrict any use of the information to criminally investigate or prosecute any alcohol or drug abuse patient.[facility]In the event this information is protected by the Federal Confidentiality of Alcohol and Drug Abuse Patient Records regulations: The Federal rules restrict any use of the information to criminally investigate or prosecute any alcohol or drug abuse patient.[facility]In the event this information is protected by the Federal Confidentiality of Alcohol and Drug Abuse Patient Records regulations: The Federal rules restrict any use of the information to criminally investigate or prosecute any alcohol or drug abuse patient.[facility]In the event this information is protected by the Federal Confidentiality of Alcohol and Drug Abuse Patient Records regulations: The Federal rules restrict any use of the information to criminally investigate or prosecute any alcohol or drug abuse patient.[facility]In the event this information is protected by the Federal Confidentiality of Alcohol and Drug Abuse Patient Records regulations: The Federal rules restrict any use of the information to criminally investigate or prosecute any alcohol or drug abuse patient.[facility]In the event this information is protected by the Federal Confidentiality of Alcohol and Drug Abuse Patient Records regulations: The Federal rules restrict any use of the information to criminally investigate or prosecute any alcohol or drug abuse patient.[facility]In the event this information is protected by the Federal Confidentiality of Alcohol and Drug Abuse Patient Records regulations: The Federal rules restrict any use of the information to criminally investigate or prosecute any alcohol or drug abuse patient.[facility]In the event this information is protected by the Federal Confidentiality of Alcohol and Drug Abuse Patient Records regulations: The Federal rules restrict any use of the information to criminally investigate or prosecute any alcohol or drug abuse patient.[facility]In the event this information is protected by the Federal Confidentiality of Alcohol and Drug Abuse Patient Records regulations: The Federal rules restrict any use of the information to criminally investigate or prosecute any alcohol or drug abuse patient.[facility]In the event this information is protected by the Federal Confidentiality of Alcohol and Drug Abuse Patient Records regulations: The Federal rules restrict any use of the information to criminally investigate or prosecute any alcohol or drug abuse patient.[facility]In the event this information is protected by the Federal Confidentiality of Alcohol and Drug Abuse Patient Records regulations: The Federal rules restrict any use of the information to criminally investigate or prosecute any alcohol or drug abuse patient.[facility]In the event this information is protected by the Federal Confidentiality of Alcohol and Drug Abuse Patient Records regulations: The Federal rules restrict any use of the information to criminally investigate or prosecute any alcohol or drug abuse patient.[facility]In the event this information is protected by the Federal Confidentiality of Alcohol and Drug Abuse Patient Records regulations: The Federal rules restrict any use of the information to criminally investigate or prosecute any alcohol or drug abuse patient.[facility]In the event this information is protected by the Federal Confidentiality of Alcohol and Drug Abuse Patient Records regulations: The Federal rules restrict any use of the information to criminally investigate or prosecute any alcohol or drug abuse patient.[facility]In the event this information is protected by the Federal Confidentiality of Alcohol and Drug Abuse Patient Records regulations: The Federal rules restrict any use of the information to criminally investigate or prosecute any alcohol or drug abuse patient.[facility]In the event this information is protected by the Federal Confidentiality of Alcohol and Drug Abuse Patient Records regulations: The Federal rules restrict any use of the information to criminally investigate or prosecute any alcohol or drug abuse patient.[facility]In the event this information is protected by the Federal Confidentiality of Alcohol and Drug Abuse Patient Records regulations: The Federal rules restrict any use of the information to criminally investigate or prosecute any alcohol or drug abuse patient.[facility]In the event this information is protected by the Federal Confidentiality of Alcohol and Drug Abuse Patient Records regulations: The Federal rules restrict any use of the information to criminally investigate or prosecute any alcohol or drug abuse patient.[facility]In the event this information is protected by the Federal Confidentiality of Alcohol and Drug Abuse Patient Records regulations: The Federal rules restrict any use of the information to criminally investigate or prosecute any alcohol or drug abuse patient.[facility]In the event this information is protected by the Federal Confidentiality of Alcohol and Drug Abuse Patient Records regulations: The Federal rules restrict any use of the information to criminally investigate or prosecute any alcohol or drug abuse patient.[facility]In the event this information is protected by the Federal Confidentiality of Alcohol and Drug Abuse Patient Records regulations: The Federal rules restrict any use of the information to criminally investigate or prosecute any alcohol or drug abuse patient.[facility]In the event this information is protected by the Federal Confidentiality of Alcohol and Drug Abuse Patient Records regulations: The Federal rules restrict any use of the information to criminally investigate or prosecute any alcohol or drug abuse patient.[facility]In the event this information is protected by the Federal Confidentiality of Alcohol and Drug Abuse Patient Records regulations: The Federal rules restrict any use of the information to criminally investigate or prosecute any alcohol or drug abuse patient.[facility]In the event this information is protected by the Federal Confidentiality of Alcohol and Drug Abuse Patient Records regulations: The Federal rules restrict any use of the information to criminally investigate or prosecute any alcohol or drug abuse patient.[facility]In the event this information is protected by the Federal Confidentiality of Alcohol and Drug Abuse Patient Records regulations: The Federal rules restrict any use of the information to criminally investigate or prosecute any alcohol or drug abuse patient.[facility]In the event this information is protected by the Federal Confidentiality of Alcohol and Drug Abuse Patient Records regulations: The Federal rules restrict any use of the information to criminally investigate or prosecute any alcohol or drug abuse patient.[facility]In the event this information is protected by the Federal Confidentiality of Alcohol and Drug Abuse Patient Records regulations: The Federal rules restrict any use of the information to criminally investigate or prosecute any alcohol or drug abuse patient.[facility]In the event this information is protected by the Federal Confidentiality of Alcohol and Drug Abuse Patient Records regulations: The Federal rules restrict any use of the information to criminally investigate or prosecute any alcohol or drug abuse patient.[facility]In the event this information is protected by the Federal Confidentiality of Alcohol and Drug Abuse Patient Records regulations: The Federal rules restrict any use of the information to criminally investigate or prosecute any alcohol or drug abuse patient.[facility] the event this information is protected by the Federal Confidentiality of Alcohol and Drug Abuse Patient Records regulations: The Federal rules restrict any use of the information to criminally investigate or prosecute any alcohol or drug abuse patient.[facility]In the event this information is protected by the Federal Confidentiality of Alcohol and Drug Abuse Patient Records regulations: The Federal rules restrict any use of the information to criminally investigate or prosecute any alcohol or drug abuse patient.[facility]In the event this information is protected by the Federal Confidentiality of Alcohol and Drug Abuse Patient Records regulations: The Federal rules restrict any use of the information to criminally investigate or prosecute any alcohol or drug abuse patient.[facility]In the event this information is protected by the Federal Confidentiality of Alcohol and Drug Abuse Patient Records regulations: The Federal rules restrict any use of the information to criminally investigate or prosecute any alcohol or drug abuse patient.[facility]In the event this information is protected by the Federal Confidentiality of Alcohol and Drug Abuse Patient Records regulations: The Federal rules restrict any use of the information to criminally investigate or prosecute any alcohol or drug abuse patient.[facility]In the event this information is protected by the Federal Confidentiality of Alcohol and Drug Abuse Patient Records regulations: The Federal rules restrict any use of the information to criminally investigate or prosecute any alcohol or drug abuse patient.[facility]In the event this information is protected by the Federal Confidentiality of Alcohol and Drug Abuse Patient Records regulations: The Federal rules restrict any use of the information to criminally investigate or prosecute any alcohol or drug abuse patient.[facility]In the event this information is protected by the Federal Confidentiality of Alcohol and Drug Abuse Patient Records regulations: The Federal rules restrict any use of the information to criminally investigate or prosecute any alcohol or drug abuse patient.[facility]In the event this information is protected by the Federal Confidentiality of Alcohol and Drug Abuse Patient Records regulations: The Federal rules restrict any use of the information to criminally investigate or prosecute any alcohol or drug abuse patient.[facility] CenterIn the event this information is protected by the Federal Confidentiality of Alcohol and Drug Abuse Patient Records regulations: The Federal rules restrict any use of the information to criminally investigate or prosecute any alcohol or drug abuse patient.[facility] CenterIn the event this information is protected by the Federal Confidentiality of Alcohol and Drug Abuse Patient Records regulations: The Federal rules restrict any use of the information to criminally investigate or prosecute any alcohol or drug abuse patient.[facility] CenterIn the event this information is protected by the Federal Confidentiality of Alcohol and Drug Abuse Patient Records regulations: The Federal rules restrict any use of the information to criminally investigate or prosecute any alcohol or drug abuse patient.[facility] CenterIn the event this information is protected by the Federal Confidentiality of Alcohol and Drug Abuse Patient Records regulations: The Federal rules restrict any use of the information to criminally investigate or prosecute any alcohol or drug abuse patient.[facility] CenterIn the event this information is protected by the Federal Confidentiality of Alcohol and Drug Abuse Patient Records regulations: The Federal rules restrict any use of the information to criminally investigate or prosecute any alcohol or drug abuse patient.[facility] CenterIn the event this information is protected by the Federal Confidentiality of Alcohol and Drug Abuse Patient Records regulations: The Federal rules restrict any use of the information to criminally investigate or prosecute any alcohol or drug abuse patient.[facility] CenterIn the event this information is protected by the Federal Confidentiality of Alcohol and Drug Abuse Patient Records regulations: The Federal rules restrict any use of the information to criminally investigate or prosecute any alcohol or drug abuse patient.[facility] CenterIn the event this information is protected by the Federal Confidentiality of Alcohol and Drug Abuse Patient Records regulations: The Federal rules restrict any use of the information to criminally investigate or prosecute any alcohol or drug abuse patient.[facility] CenterIn the event this information is protected by the Federal Confidentiality of Alcohol and Drug Abuse Patient Records regulations: The Federal rules restrict any use of the information to criminally investigate or prosecute any alcohol or drug abuse patient.[facility] CenterIn the event this information is protected by the Federal Confidentiality of Alcohol and Drug Abuse Patient Records regulations: The Federal rules restrict any use of the information to criminally investigate or prosecute any alcohol or drug abuse patient.[facility] CenterIn the event this information is protected by the Federal Confidentiality of Alcohol and Drug Abuse Patient Records regulations: The Federal rules restrict any use of the information to criminally investigate or prosecute any alcohol or drug abuse patient.[facility] CenterIn the event this information is protected by the Federal Confidentiality of Alcohol and Drug Abuse Patient Records regulations: The Federal rules restrict any use of the information to criminally investigate or prosecute any alcohol or drug abuse patient.[facility] CenterIn the event this information is protected by the Federal Confidentiality of Alcohol and Drug Abuse Patient Records regulations: The Federal rules restrict any use of the information to criminally investigate or prosecute any alcohol or drug abuse patient.[facility] CenterIn the event this information is protected by the Federal Confidentiality of Alcohol and Drug Abuse Patient Records regulations: The Federal rules restrict any use of the information to criminally investigate or prosecute any alcohol or drug abuse patient.[facility] CenterIn the event this information is protected by the Federal Confidentiality of Alcohol and Drug Abuse Patient Records regulations: The Federal rules restrict any use of the information to criminally investigate or prosecute any alcohol or drug abuse patient.[facility] CenterIn the event this information is protected by the Federal Confidentiality of Alcohol and Drug Abuse Patient Records regulations: The Federal rules restrict any use of the information to criminally investigate or prosecute any alcohol or drug abuse patient.[facility] CenterIn the event this information is protected by the Federal Confidentiality of Alcohol and Drug Abuse Patient Records regulations: The Federal rules restrict any use of the information to criminally investigate or prosecute any alcohol or drug abuse patient.[facility] CenterIn the event this information is protected by the Federal Confidentiality of Alcohol and Drug Abuse Patient Records regulations: The Federal rules restrict any use of the information to criminally investigate or prosecute any alcohol or drug abuse patient.[facility] CenterIn the event this information is protected by the Federal Confidentiality of Alcohol and Drug Abuse Patient Records regulations: The Federal rules restrict any use of the information to criminally investigate or prosecute any alcohol or drug abuse patient.[facility] CenterIn the event this information is protected by the Federal Confidentiality of Alcohol and Drug Abuse Patient Records regulations: The Federal rules restrict any use of the information to criminally investigate or prosecute any alcohol or drug abuse patient.[facility] CenterIn the event this information is protected by the Federal Confidentiality of Alcohol and Drug Abuse Patient Records regulations: The Federal rules restrict any use of the information to criminally investigate or prosecute any alcohol or drug abuse patient.[facility] CenterIn the event this information is protected by the Federal Confidentiality of Alcohol and Drug Abuse Patient Records regulations: The Federal rules restrict any use of the information to criminally investigate or prosecute any alcohol or drug abuse patient.[facility] CenterIn the event this information is protected by the Federal Confidentiality of Alcohol and Drug Abuse Patient Records regulations: The Federal rules restrict any use of the information to criminally investigate or prosecute any alcohol or drug abuse patient.[facility] CenterIn the event this information is protected by the Federal Confidentiality of Alcohol and Drug Abuse Patient Records regulations: The Federal rules restrict any use of the information to criminally investigate or prosecute any alcohol or drug abuse patient.[facility] CenterIn the event this information is protected by the Federal Confidentiality of Alcohol and Drug Abuse Patient Records regulations: The Federal rules restrict any use of the information to criminally investigate or prosecute any alcohol or drug abuse patient.[facility] CenterIn the event this information is protected by the Federal Confidentiality of Alcohol and Drug Abuse Patient Records regulations: The Federal rules restrict any use of the information to criminally investigate or prosecute any alcohol or drug abuse patient.[facility] CenterIn the event this information is protected by the Federal Confidentiality of Alcohol and Drug Abuse Patient Records regulations: The Federal rules restrict any use of the information to criminally investigate or prosecute any alcohol or drug abuse patient.[facility] CenterIn the event this information is protected by the Federal Confidentiality of Alcohol and Drug Abuse Patient Records regulations: The Federal rules restrict any use of the information to criminally investigate or prosecute any alcohol or drug abuse patient.[facility] Reason for Visit (unrecogniz ed section and content) Reason Comments PT POC Reason Comments OT Plan of Care Reason Comments Hospital Discharge Reason Comments Patient Update Reason Comments Results Reason Comments Radiology US Specialty Diagnoses / Procedures Referred By Contac t Referred To Contact US IMAGING Diagnoses Nontoxic multinodular goiter Procedures US THYROID/PARATHYROID US SOFT TISSUE HEAD & NECK REAL TIME IMGE Mauro Corea MD [address] [place] [address] Us Imaging Referral ID Status Reason Start Date Expiration Date V isits Requested Visits Authorized [id number] Closed Auto-Generate d Referral 02/15/2022 03/17/2023 1 1 Reason Comments Patient Update Results Reason Comments Follow Up PMR Reason Comments Results Reason Onset Date Comments Refill Request 06/28/2022 Reason Onset Date Comments Follow Up Immunizations 07/04/2022 Flu vaccination Reason Comments Erroneous encounter-disregard Reason Comments Missed Appointment Reason Comments Follow Up 1 week Reason Comments Orders Reason Comments Imm/Inj Reason Comments Medication Problem 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 Reason Comments Eye Problem Referral Request Reason Comments Received Outside Medical Records Reason Comments PMR Reason Comments Critical Results Reason Comments Orders Patient Question Reason Comments Medication Request Reason Comments [facility] calling for verbal orders Reason Comments Vasculitis Reason Comments Home Health Start of Care Reason Comments Nursing plan of care Reason Comments Question Reason Comments Hospital F/U Reason Comments Results Urine Reason Comments Abdominal Pain Reason Onset Date Comments SPP Inflammatory Conditions - Medication Refill 02/22/2023 Actemra Reason Onset Date Comments Erroneous encounter-disregard 03/11/2023 Reason Comments GCA Reason Comments Patient Question Patient Update Reason Onset Date Comments Refill Request 05/27/2023 Reason Comments Home Health Orders Reason Comments Medication Update Reason Comments Hospital F/U Reason Onset Date Comments Refill Request 07/01/2023 Reason Onset Date Comments Refill Request 07/08/2023 Reason Onset Date Comments Refill Request 07/16/2023 Reason Onset Date Comments Refill Request 09/20/2023 Reason Comments Consult Aneurysm of ascendin g aorta without Rupture Specialty Diagnoses / Procedures Referred By Contac t Referred To Contact Cardiology Diagnoses Aneurysm of ascending aorta without rupture (HCC) Procedures CONSULT TO CARDIOLOGY OFFICE/OUTPATIENT [facility] MDM 60-74 MINUTES Mauro Krishnamurthy MD [address] [place] [address] Referral ID Status Reason Start Date Expiration Date V isits Requested Visits Authorized [id number] Closed PCP Requested Referral 06/26/2023 06/25/2024 1 1 Reason Comments Insurance Authorization Reason Onset Date Comments Refill Request 11/15/2023 Reason Onset Date Comments Refill Request 11/21/2023 Reason Onset Date Comments Refill Request 01/15/2024 Reason Onset Date Comments Refill Request 02/07/2024 Reason Onset Date Comments Refill Request 04/03/2024 Reason Onset Date Comments Refill Request 05/01/2024 Reason Comments Radio Gen RMP Specialty Diagnoses / Procedures Referred By Contac t Referred To Contact XR IMAGING Diagnoses Acute pain of right knee PMR (polymyalgia rheumatica) (HCC) 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 Procedures XR HIP GENERAL 3V PELV/AP/LAT RIGHT RADEX HIP UNILATERAL WITH PELVIS 2-[place] [id number] [id number] Xr Imaging [place] [address] Referral ID Status Reason Start Date Expiration Date V isits Requested Visits Authorized [id number] Closed Auto-Generate d Referral 12/21/2022 01/20/2024 1 1 Reason Comments 6 Month Exam Reason Comments Osteoarthritis Complains of arthrit is in right leg very bad Specialty Diagnoses / Procedures Referred By Contac t Referred To Contact Rheumatology Diagnoses PMR (polymyalgia rheumatica) (HCC) Other osteoporosis Procedures CONSULT TO RHEUM/IMMUN DISEASE OFFICE/OUTPATIENT [facility] 60 MINUTES Mauro Krishnamurthy MD [address] [place] [address] Referral ID Status Reason Start Date Expiration Date V isits Requested Visits Authorized [id number] Closed PCP Requested Referral 05/15/2024 05/15/2025 1 1 Reason Onset Date Comments Refill Request 05/29/2024 Reason Onset Date Comments Refill Request 06/26/2024 Reason Comments Radiology US Specialty Diagnoses / Procedures Referred By Contac t Referred To Contact US IMAGING Diagnoses Thyroid nodule Procedures US THYROID/PARATHYROID US SOFT TISSUE HEAD & NECK REAL TIME IMGE DOCMauro Hogan MD [address] [place] [address] [facility] [address] Referral ID Status Reason Start Date Expiration Date V isits Requested Visits Authorized [id number] Closed Auto-Generate d Referral 05/15/2024 06/14/2025 1 1 Reason Onset Date Comments Refill Request 07/24/2024 Reason Onset Date Comments Refill Request 07/24/2024 Reason Comments Patient Update Admitted to [facility] Reason Comments Thyroid Nodule Specialty Diagnoses / Procedures Referred By Bradley t Referred To Contact Endocrinology Diagnoses Thyroid nodule Procedures CONSULT TO ENDOCRINOLOGY OFFICE/OUTPATIENT [facility] 60 MINUTES Mauro Krishnamurthy MD [address] [place] [address] Phone: tel: fax: Referral ID Status Reason Start Date Expiration Date V isits Requested Visits Authorized [id number] Closed PCP Requested Referral 06/30/2024 06/30/2025 1 1 Reason Onset Date Comments Results, Lab 10/10/2024 Reason Onset Date Comments Refill Request 10/16/2024 Reason Comments Thyroid Nodule FNAB right mid Reason Onset Date Comments Results 10/29/2024 Biopsy results Reason Onset Date Comments Population Health Navigation Outreach 11/24/2024 [place] Reason Onset Date Comments Population Health Navigation Outreach 12/24/2024 [place] Reason Onset Date Comments Refill Request 01/05/2025 Reason Onset Date Comments Population Health Navigation Outreach 02/03/2025 [place] Reason Onset Date Comments Refill Request 03/30/2025 Reason Onset Date Comments Refill Request 04/27/2025 Care Teams (unrecognized sec tion and content) Air Intercept Controller Relationship Specialty Start Date End Date Mauro Krishnamurthy MD [address] [place], [place] [id number] PCP - General Family Practice 04/09/13 Air Intercept Controller Relationship Specialty Start Date End Date Mauro Krishnamurthy MD [address] [place], [place] [id number] PCP - General Family Practice 04/09/13 Air Intercept Controller Relationship Specialty Start Date End Date Mauro Krishnamurthy MD [address] [facility] [place] [address] PCP - General Family Practice 04/09/13 Air Intercept Controller Relationship Specialty Start Date End Date Mauro Krishnamurthy MD [address] [facility] [place] [address] PCP - General Family Practice 04/09/13 Air Intercept Controller Relationship Specialty Start Date End Date Mauro Krishnamurthy MD [address] [facility] [place] [address] PCP - General Family Practice 04/09/13 Air Intercept Controller Relationship Specialty Start Date End Date Mauro Krishnamurthy MD [address] [facility] [place] [address] PCP - General Family Practice 04/09/13 Air Intercept Controller Relationship Specialty Start Date End Date Mauro Krishnamurthy MD [address] [facility] [place] [address] PCP - General Family Practice 04/09/13 Air Intercept Controller Relationship Specialty Start Date End Date Mauro Krishnamurthy MD [address] [facility] [place] [address] PCP - General Family Practice 04/09/13 Air Intercept Controller Relationship Specialty Start Date End Date Mauro Krishnamurthy MD [address] [facility] [place] [address] PCP - General Family Practice 04/09/13 Air Intercept Controller Relationship Specialty Start Date End Date Mauro Krishnamurthy MD [address] [facility] [place] [address] PCP - General Family Medicine 04/09/13 Air Intercept Controller Relationship Specialty Start Date End Date Mauro Krishnamurthy MD [address] [facility] [place] [address] PCP - General Family Medicine 04/09/13 Air Intercept Controller Relationship Specialty Start Date End Date Mauro Krishnamurthy MD [address] [facility] [place] [address] PCP - General Family Medicine 04/09/13 Air Intercept Controller Relationship Specialty Start Date End Date Mauro Krishnamurthy MD [address] [facility] [place] [address] PCP - General Family Medicine 04/09/13 Air Intercept Controller Relationship Specialty Start Date End Date Mauro Krishnamurthy MD [address] [facility] [place] [address] PCP - General Family Medicine 04/09/13 Air Intercept Controller Relationship Specialty Start Date End Date Mauro Krishnamurthy MD [address] [facility] [place] [address] PCP - General Family Medicine 04/09/13 Air Intercept Controller Relationship Specialty Start Date End Date Mauro Krishnamurthy MD [address] [facility] [place] [address] PCP - General Family Medicine 04/09/13 Air Intercept Controller Relationship Specialty Start Date End Date Mauro Krishnamurthy MD [address] [facility] [place] [address] PCP - General Family Medicine 04/09/13 Air Intercept Controller Relationship Specialty Start Date End Date Mauro Krishnamurthy MD [address] [facility] [place] [address] PCP - General Family Medicine 04/09/13 Air Intercept Controller Relationship Specialty Start Date End Date Mauro Krishnamurthy MD [address] [facility] [place] [address] PCP - General Family Medicine 04/09/13 Air Intercept Controller Relationship Specialty Start Date End Date Mauro Krishnamurthy MD [address] [facility] [place] [address] PCP - General Family Medicine 04/09/13 Air Intercept Controller Relationship Specialty Start Date End Date Mauro Krishnamurthy MD [address] [facility] [place] [address] PCP - General Family Medicine 04/09/13 Air Intercept Controller Relationship Specialty Start Date End Date Mauro Krishnamurthy MD [address] [facility] [place] [address] PCP - General Family Medicine 04/09/13 Air Intercept Controller Relationship Specialty Start Date End Date Mauro Krishnamurthy MD [address] [facility] [place] [address] PCP - General Family Medicine 04/09/13 Air Intercept Controller Relationship Specialty Start Date End Date Mauro Krishnamurthy MD [address] [facility] [place] [address] PCP - General Family Medicine 04/09/13 Air Intercept Controller Relationship Specialty Start Date End Date Mauro Krishnamurthy MD [address] [facility] [place] [address] PCP - General Family Medicine 04/09/13 Air Intercept Controller Relationship Specialty Start Date End Date Mauro Krishnamurthy MD [address] [facility] [place] [address] PCP - General Family Medicine 04/09/13 Air Intercept Controller Relationship Specialty Start Date End Date Mauro Krishnamurthy MD [address] [facility] [place] [address] PCP - General Family Medicine 04/09/13 Air Intercept Controller Relationship Specialty Start Date End Date Mauro Krishnamurthy MD [address] [facility] [place] [address] PCP - General Family Medicine 04/09/13 Air Intercept Controller Relationship Specialty Start Date End Date Mauro Krishnamurthy MD [address] [facility] [place] [address] PCP - General Family Medicine 04/09/13 Air Intercept Controller Relationship Specialty Start Date End Date Mauro Krishnamurthy MD [address] [place] [address] PCP - General Family Medicine 04/09/13 Team Status: Active Member Role Status Dates Dr. Mauro Krishnamurthy MD Family Provider Active Dr. Mauro Krishnamurthy MD Primary Care Provider Active Team Status: Active Member Role Status Dates Dr. Mauro Krishnamurthy MD Primary Care Provider, Attending Provider Active Team Status: Inactive Member Role Status Dates Dr. Mauro Krishnamurthy MD Primary Care Provider Active Dr. Kartik Roe DO Emergency Provider Active Air Intercept Controller Relationship Specialty Start Date End Date Mauro Krishnamurthy MD [address] [place] [address] PCP - General Family Medicine 04/09/13 Air Intercept Controller Relationship Specialty Start Date End Date Mauro Krishnamurthy MD [address] [place] [address] PCP - General Family Medicine 04/09/13 Air Intercept Controller Relationship Specialty Start Date End Date Mauro Krishnamurthy MD [address] [place] [address] PCP - General Family Medicine 04/09/13 Air Intercept Controller Relationship Specialty Start Date End Date Mauro Krishnamurthy MD [address] [place] [address] PCP - General Family Medicine 04/09/13 Team Status: Inactive Member Role Status Dates Dr. Mauro Krishnamurthy MD Primary Care Provider, Attending Provider Active Team Status: Inactive Member Role Status Dates Dr. Mauro Krishnamurthy MD Primary Care Provider Active Dr. Kartik Roe DO Attending Provider, Emergency P misty Active Team Status: Active Member Role Status Dates Dr. Mauro Krishnamurthy MD Primary Care Provider Active Dr. Navneet Anthony DO Emergency Provider Active Dr. Tony Shine MD Admit Provider, Attending Provider Active Air Intercept Controller Relationship Specialty Start Date End Date Mauro Krishnamurthy MD [address] [facility] [place] [address] PCP - General Family Medicine 04/09/13 Air Intercept Controller Relationship Specialty Start Date End Date Mauro Krishnamurthy MD [address] [facility] [place] [address] PCP - General Family Medicine 04/09/13 Air Intercept Controller Relationship Specialty Start Date End Date Mauro Krishnamurthy MD [address] [facility] [place] [address] PCP - General Family Medicine 04/09/13 Air Intercept Controller Relationship Specialty Start Date End Date Mauro Krishnamurthy MD [address] [facility] [place], [place] [id number] PCP - General Family Medicine 04/09/13 Team Status: Active Member Role Status Dates Dr. Mauro Krishnamurthy MD Primary Care Provider Active Dr. Navneet Anhtony , DO Emergency Provider Active Dr. Tony Shine MD Admit Provi luly, Attending Provider, Other Provider Active Team Status: Active Member Role Status Dates Dr. Mauro Krishnamurthy MD Primary Care Provider Active Dr. Navneet Anthony , DO Emergency Provider Active Dr. Tony Shine MD Admit Provider, Other Pro vider Active Dr. Sarma Agee MD Attending Provider, Other Provid er Active Team Status: Inactive Member Role Status Dates Dr. Mauro Krishnamurthy MD Primary Care Provider Active Dr. Navneet Anthony , DO Emergency Provider Active Dr. Tony Shine MD Admit Provider, Other Pro vider Active Dr. Samra Agee MD Attending Provider Active Team Status: Active Member Role Status Dates Dr. Mauro Krishnamurthy MD Primary Care Provider Active Dr. Kyler Fox , DO Emergency Provider Active Dr. Wilbur Wolff MD Admit Provider, Attending Provi luly Active Team Status: Active Member Role Status Dates Dr. Mauro Krishnamurthy MD Primary Care Provi luly, Attending Provider, Referring Provider Active Air Intercept Controller Relationship Specialty Start Date End Date Mauro Krishnamurthy MD [address] [facility] [place] [address] PCP - General Family Medicine 04/09/13 Team Status: Active Member Role Status Dates Dr. Mauro Krishnamurthy MD Primary Care Provider Active Dr. Kyler Fox DO Emergency Provider Active Dr. Wilbur Wolff MD Admit Provider, A ttending Provider, Other Provider Active Team Status: Inactive Member Role Status Dates Dr. Mauro Krishnamurthy MD Primary Care Provider Active Dr. Kyler Fox DO Emergency Provider Active Dr. Wilbur Wolff MD Admit Provider, Attending Provi luly Active Team Status: Active Member Role Status Dates Dr. Mauro Krishnamurthy MD Primary Care Provider Active Dr. Kyler Fox DO Emergency Provider Active Dr. Araceli Branham MD Admit Provider, Attending Prov ider Active Team Status: Active Member Role Status Dates Dr. Mauro Krishnamurthy MD Primary Care Provider Active Dr. Kyler Fox DO Emergency Provider Active Dr. Araceli Branham MD Admit Provider, Other Provider Active Dr. Anny Leach DO Attending Provider, Other Provide r Active Team Status: Active Member Role Status Dates Dr. Mauro Krishnamurthy MD Primary Care Provider Active Dr. Kyler Fox DO Emergency Provider Active Dr. Araceli Branham MD Admit Provider, Other Provider Active Dr. Anny Leach DO Other Provider Active Dr. Milan Massey DO Attending Provider Active Team Status: Active Member Role Status Dates Dr. Mauro Krishnamurthy MD Primary Care Provider Active Dr. Milan Massey DO Attending Provider Active Team Status: Active Member Role Status Dates Dr. Mauro Krishnamurthy MD Primary Care Provider Active Vin MCDUFFIE MD Attending Provider Active Team Status: Inactive Member Role Status Dates Dr. Mauro Krishnamurthy MD Primary Care Provider Active Dr. Kyler Fox DO Emergency Provider Active Dr. Araceli Branham MD Admit Provider, Other Provider Active Dr. Anny Leach DO Attending Provider Active Team Status: Inactive Member Role Status Dates Dr. Mauro Krishnamurthy MD Primary Care Provider Active Dr. Milan Massey , Attending Provider, Referring Provider Active Air Intercept Controller Relationship Specialty Start Date End Date Mauro Krishnamurthy MD [address] [place] [address] PCP - General Family Medicine 04/09/13 Air Intercept Controller Relationship Specialty Start Date End Date Mauro Krishnamurthy MD [address] [place] [address] PCP - General Family Medicine 04/09/13 Air Intercept Controller Relationship Specialty Start Date End Date Mauro Krishnamurthy MD [address] [place], [place] [address] PCP - General Family Medicine 04/09/13 Team Status: Active Member Role Status Dates Dr. Mauro Krishnamurthy MD Primary Care Provider Active Dr. Kyler Fox , Emergency Provider Active Dr. Araceli Branham MD Admit Provider, Other Provider Active Dr. Anny Leach , DO Referring Provider, Other Provide r Active Dr. Milan Massey , DO Attending Provider Active Team Status: Active Member Role Status Dates Dr. Mauro Krishnamurthy MD Primary Care Provider Active Dr. Milan Massey , Attending Provider Active Dr. Anny Leach , Referring Provider Active Team Status: Inactive Member Role Status Dates Dr. Mauro Krishnamurthy MD Primary Care Provider Active Terri Mayfield JOB COACH/JOB DEVELOPER, JOB COACH/JOB DEVELOPER-C Attending Provider Active Team Status: Inactive Member Role Status Dates Dr. Mauro Krishnamurthy MD Primary Care Provider Active Dr. Vin Gatica MD Attending Provider Active Team Status: Inactive Member Role Status Dates Dr. Mauro Krishnamurthy MD Primary Care Provider Active Vin MCDUFFIE MD Attending Provider, Referring Provider Active Team Status: Inactive Member Role Status Dates Dr. Mauro Krishnamurthy MD Primary Care Provider Active Vin MCDUFFIE MD Attending Provider Active Team Status: Inactive Member Role Status Dates Dr. Mauro Krishnamurthy MD Primary Care Provi luly, Attending Provider, Referring Provider Active Air Intercept Controller Relationship Specialty Start Date End Date Mauro Krishnamurthy MD [address] [place], [place] [address] PCP - General Family Medicine 04/09/13 Air Intercept Controller Relationship Specialty Start Date End Date Mauro Krishnamurthy MD [address] [place], [place] [id number] PCP - General Family Medicine 04/09/13 Air Intercept Controller Relationship Specialty Start Date End Date Mauro Krishnamurthy MD [address] [place] [address] PCP - General Family Medicine 04/09/13 Air Intercept Controller Relationship Specialty Start Date End Date Mauro Krishnamurthy MD [address] [place] [address] PCP - General Family Medicine 04/09/13 Air Intercept Controller Relationship Specialty Start Date End Date Mauro Krishnamurthy MD [address] [place] [address] PCP - General Family Medicine 04/09/13 Air Intercept Controller Relationship Specialty Start Date End Date Mauro Krishnamurthy MD [address] [place] [address] PCP - General Family Medicine 04/09/13 Air Intercept Controller Relationship Specialty Start Date End Date Mauro Krishnamurthy MD [address] [place] [address] PCP - General Family Medicine 04/09/13 Air Intercept Controller Relationship Specialty Start Date End Date Mauro Krishnamurthy MD [address] [place], [place] [address] PCP - General Family Medicine 04/09/13 Air Intercept Controller Relationship Specialty Start Date End Date Mauro Krishnamurthy MD [address] [place], [place] [id number] PCP - General Family Medicine 04/09/13 Air Intercept Controller Relationship Specialty Start Date End Date Mauro Krishnamurthy MD [address] [place] [address] PCP - General Family Medicine 04/09/13 Air Intercept Controller Relationship Specialty Start Date End Date Mauro Krishnamurthy MD [address] [place], [place] [address] PCP - General Family Medicine 04/09/13 Air Intercept Controller Relationship Specialty Start Date End Date Mauro Krishnamurthy MD [address] [place] [address] PCP - General Family Medicine 04/09/13 Air Intercept Controller Relationship Specialty Start Date End Date Mauro Krishnamurthy MD [address] [place] [address] PCP - General Family Medicine 04/09/13 Air Intercept Controller Relationship Specialty Start Date End Date Mauro Krishnamurthy MD [address] [place] [address] PCP - General Family Medicine 04/09/13 Air Intercept Controller Relationship Specialty Start Date End Date Mauro Krishnamurthy MD [address] [place] [address] PCP - General Family Medicine 04/09/13 Air Intercept Controller Relationship Specialty Start Date End Date Mauro Krishnamurthy MD [address] [place], [place] [address] PCP - General Family Medicine 04/09/13 Air Intercept Controller Relationship Specialty Start Date End Date Mauro Krishnamurthy MD [address] [place], [place] [address] PCP - General Family Medicine 04/09/13 Air Intercept Controller Relationship Specialty Start Date End Date Mauro Krishnamurthy MD [address] [place] [address] PCP - General Family Medicine 04/09/13 Air Intercept Controller Relationship Specialty Start Date End Date Mauro Krishnamurthy MD [address] [place] [address] PCP - General Family Medicine 04/09/13 Air Intercept Controller Relationship Specialty Start Date End Date Mauro Krishnamurthy MD [address] [place] [address] PCP - General Family Medicine 04/09/13 Air Intercept Controller Relationship Specialty Start Date End Date Mauro Krishnamurthy MD [address] [place] [address] PCP - General Family Medicine 04/09/13 Air Intercept Controller Relationship Specialty Start Date End Date Mauro Krishnamurthy MD [address] [place] [address] PCP - General Family Medicine 04/09/13 Air Intercept Controller Relationship Specialty Start Date End Date Mauro Krishnamurthy MD [address] [place] [address] PCP - General Family Medicine 04/09/13 Air Intercept Controller Relationship Specialty Start Date End Date Mauro Krishnamurthy MD [address] [place] [address] PCP - General Family Medicine 04/09/13 Air Intercept Controller Relationship Specialty Start Date End Date Mauro Krishnamurthy MD [address] [place] [address] PCP - General Family Medicine 04/09/13 Air Intercept Controller Relationship Specialty Start Date End Date Mauro Krishnamurthy MD [address] [place] [address] PCP - General Family Medicine 04/09/13 Air Intercept Controller Relationship Specialty Start Date End Date Mauro Krishnamurthy MD [address] [place] [address] PCP - General Family Medicine 04/09/13 Belle Neumann APRN.GROUNDS/MAINTENANCE SPECIALIST [address] [place] [address] Information Systems Architect Family Medicine 07/20/24 Patrizia Pabon DYE COLORIST DYER.GROUNDS/MAINTENANCE SPECIALIST [address] [place] [address] Information Systems Architect Family Medicine 07/20/24 Air Intercept Controller Relationship Specialty Start Date End Date Mauro Krishnamurthy MD [address] [place] [address] PCP - General Family Medicine 04/09/13 Belle Neumann DYE COLORIST DYER.GROUNDS/MAINTENANCE SPECIALIST [address] [place] [address] Information Systems Architect Family Medicine 07/20/24 Patrizia Pabon DYE COLORIST DYER.GROUNDS/MAINTENANCE SPECIALIST [address] [place] [address] Information Systems Architect Family Medicine 07/20/24 Air Intercept Controller Relationship Specialty Start Date End Date Mauro Krishnamurthy MD [address] [place] [address] PCP - General Family Medicine 04/09/13 Belle Neumann APRN.GROUNDS/MAINTENANCE SPECIALIST [address] [place] [address] Information Systems Architect Family [facility] 07/20/24 Patrizia Pabon APRN.GROUNDS/MAINTENANCE SPECIALIST [address] [place] [address] Information Systems Architect [facility] 07/20/24 Air Intercept Controller Relationship Specialty Start Date End Date Mauro Krishnamurthy MD [address] [place] [address] PCP - General Family Medicine 04/09/13 Belle Neumann APRN.GROUNDS/MAINTENANCE SPECIALIST [address] [place] [address] Information Systems Architect [facility] 07/20/24 Patrizia Pabon APRN.GROUNDS/MAINTENANCE SPECIALIST [address] [place] [address] [facility] 07/20/24 Mariajose Duval, JESSA [address] [place] [phone] Primary Care Route Service Representative 08/31/24 Air Intercept Controller Relationship Specialty Start Date End Date Mauro Krishnamurthy MD [address] [place] [address] PCP - General Family Medicine 04/09/13 Belle Neumann APRN.GROUNDS/MAINTENANCE SPECIALIST [address] [place] [address] Information Systems Architect Family Medicine 07/20/24 Patrizia Pabon APRN.GROUNDS/MAINTENANCE SPECIALIST [address] [place] [address] Information Systems Architect Family [facility] 07/20/24 Air Intercept Controller Relationship Specialty Start Date End Date Mauro Krishnamurthy MD [address] [place] [address] PCP - General Family Medicine 04/09/13 Belle Neumann APRN.GROUNDS/MAINTENANCE SPECIALIST [address] [place] [address] Information Systems Architect Family Medicine 07/20/24 Patrizia Pabon APRN.GROUNDS/MAINTENANCE SPECIALIST [address] [place] [address] Information Systems [facility] 07/20/24 Air Intercept Controller Relationship Specialty Start Date End Date Mauro Krishnamurthy MD [address] [place] [address] PCP - General Family Medicine 04/09/13 Belle Neumann DYE COLORIST DYER.GROUNDS/MAINTENANCE SPECIALIST [address] [place] [address] Information Systems Architect Family Medicine 07/20/24 Patrizia Pabon DYE COLORIST DYER.GROUNDS/MAINTENANCE SPECIALIST [address] [place] [address] Information Systems Architect Family Medicine 07/20/24 Air Intercept Controller Relationship Specialty Start Date End Date Mauro Krishnamurthy MD [address] [place] [address] PCP - General Family Medicine 04/09/13 Belle Neumann, DYE COLORIST DYER.GROUNDS/MAINTENANCE SPECIALIST [address] [place] [address] Information Systems Architect Family Medicine 07/20/24 Patrizia Pabon DYE COLORIST DYER.GROUNDS/MAINTENANCE SPECIALIST [address] [place] [address] [facility] 07/20/24 Air Intercept Controller Relationship Specialty Start Date End Date Mauro Krishnamurthy MD [address] [facility] [place] [address] PCP - General Family Medicine 04/09/13 Belle Neumann APRN.GROUNDS/MAINTENANCE SPECIALIST [address] [place] [address] [facility] 07/20/24 Patrizia Pabon DYE COLORIST DYER.GROUNDS/MAINTENANCE SPECIALIST [address] [facility] [place] [address] [facility] 07/20/24 Air Intercept Controller Relationship Specialty Start Date End Date Mauro Krishnamurthy MD [address] [facility] [place] [address] PCP - General Family Medicine 04/09/13 Belle Neumann, DYE COLORIST DYER.GROUNDS/MAINTENANCE SPECIALIST [address] [place] [address] [facility] 07/20/24 Patrizia Pabon DYE COLORIST DYER.GROUNDS/MAINTENANCE SPECIALIST [address] [facility] [place] [address] [facility] 07/20/24 Air Intercept Controller Relationship Specialty Start Date End Date Mauro Krishnamurthy MD [address] [facility] [place] [address] [phone] PCP - General Family Medicine 04/09/13 Belle Neumann DYE COLORIST DYER.GROUNDS/MAINTENANCE SPECIALIST [address] [place] [address] [facility] 07/20/24 Patrizia Pabon DYE COLORIST DYER.GROUNDS/MAINTENANCE SPECIALIST [address] [facility] [place] [address] [facility] 07/20/24 Air Intercept Controller Relationship Specialty Start Date End Date Mauro Krishnamurthy MD [address] [place] [address] PCP - General Family Medicine 04/09/13 Belle Neumann APRN.GROUNDS/MAINTENANCE SPECIALIST [address] [place] [address] [facility] 07/20/24 Patrizia Pabon DYE COLORIST DYER.GROUNDS/MAINTENANCE SPECIALIST [address] [facility] [place] [address] [facility] 07/20/24 Air Intercept Controller Relationship Specialty Start Date End Date Mauro Krishnamurthy MD [address] [facility] [place] [address] PCP - General Family Medicine 04/09/13 Belle Neumann DYE COLORIST DYER.GROUNDS/MAINTENANCE SPECIALIST [address] [facility] [place] [address] [facility] 07/20/24 Patrizia Pabon DYE COLORIST DYER.GROUNDS/MAINTENANCE SPECIALIST [address] [facility] [place] [address] [employer] [facility] 07/20/24 Active Administered Medications - up to 3 most recent administrations Administered Medications (un recognized section and content) Medication Order MAR Action Action Date Dose Rate Site denosumab 60 mg injection (PROLIA) 60 mg, SUBCUTANEOUS, EVERY 6 MONTHS, 2 doses, First dose on Sat09/27/23 at 0000, Last dose on Sat03/25/24 at 0000, Allow To Come To Room Temperature Before Administration. REFRIGERATE Given 09/23/2023 1:36 PM EST 60 mg Arm, Right FOR RECORDS PERTAINING TO PATIENTS WHO ARE OR HAVE BEEN ENROLLED IN A CHEMICAL DEPENDENCY/SUBSTANCEABUSE PROGRAM, SOME INFORMATION MAY BE OMITTED. This clinical summary was aggregated from multiple sources. Caution should be exercised in using it in the provision of clinical care. This summary normalizes information from multiple sources, and as a consequence, information in this document may materially change the coding, format and clinical context of patient data. In addition, data may be omitted in some cases. CLINICAL DECISIONS SHOULD BE BASED ON THE PRIMARY CLINICAL RECORDS. [employer] [facility]. provides no warranty or guarantee of the accuracy or completeness of information in this document.
--- NOTE | 2025-08-06 18:10 | CT_ITS ---
PROCEDURE: ABDOMEN/PELVIS W IV CONT ONLY 08/06/2025 REASON FOR EXAM: RIGHT LOWER QUAD ABDOMINAL PAIN TECHNIQUE: Procedure Code: [id number] Modality: CT Procedure: ABDOMEN/PELVIS W IV CONT ONLY Coronal and Sagittal reconstruction series were provided. CONTRAST: 100 cc of Isovue 370 One or more dose reduction techniques were used (e.g., Automated exposure control, adjustment of the mA and/or kV according to patient size, use of iterative reconstruction technique. COMPARISON: 08/25/2024 FINDINGS: Lung bases: Bibasilar dependent atelectasis. Liver: Nonenlarged. Moderate hepatic steatosis. Focal fatty infiltration along the falciform ligament. No obvious hepatic mass. Gallbladder: Not visualized and likely surgically absent. No biliary ductal dilatation. Spleen: Normal size. Pancreas: Scattered pancreatic calcifications likely sequelae of chronic pancreatitis. Adrenals: Unremarkable. Kidneys: Normal renal sizes. No hydronephrosis. Bladder: Unremarkable. Reproductive Organs: Prior hysterectomy. Adnexal regions are unremarkable. Bowel: Scattered sigmoid diverticulosis. Circumferential thickening of the sigmoid colon concerning for sigmoiditis. Appendix: The appendix is not identified. There is no inflammatory process identified in the right lower quadrant to suggest appendicitis. Lymph nodes: Unremarkable. Vasculature: The abdominal aorta and IVC are normal. Peritoneum / Retroperitoneum: No free fluid or air. Bones: No acute fractures. CT/Abdomen/Pelvis W IV Cont ONLY IMPRESSION: 1. Scattered sigmoid diverticulosis with wall thickening concerning for sigmoid itis. 2. Moderate hepatic steatosis with additional focal fatty infiltration along th e falciform ligament. Reading [facility]
[2025-08-06 18:35] LABS: Hematocrit 30.8 % (37-47); Hemoglobin 10.2 g/dL (12.0-15.0); Immature Granulocytes Count 0.020 X10^3/uL (0.0-0.0); Mean Corp Hgb Conc 33.1 g/dL (32-36); Mean Corpuscular Volume 83.5 fL (81-99); Mean Platelet Vol. 9.9 fl (6.2-12.0); NRBC Flagged by Analyzer 0 % (0-5); POSITIVE DIFFERENTIAL YES; Platelet Count 239 K/mm3 (150-450); RBC Distribution Width CV 14.2 % (11.6-14.6); RBC Distribution Width SD 43.6 fl (35.1-43.9); Red Blood Count 3.69 M/mm3 (4.2-5.4); White Blood Count 5.5 K/mm3 (4.4-11.0)
[2025-08-06 18:38] LABS: AST(SGOT) 26 U/L (<=31); Alanine Aminotransfer ALT/SGPT 12 U/L (<=34); Albumin, Serum 3.2 g/dL (3.4-4.8); Alkaline Phosphatase 100 U/L (35-104); Anion Gap 11 (7-18); BUN 23 mg/dL (4-19); BUN/Creat Ratio 23.8 RATIO (10-20); Calcium,Total 8.5 mg/dL (7.6-11.0); Carbon Dioxide 28.9 mmol/L (20.0-29.0); Chloride 103 mmol/L (96-106); Estimated Creatinine Clearance 59.02 ml/min (50-250); Globulin 2.5 g/dL (2.2-4.2); Glucose 115 mg/dL (70-99); Lipase 32 U/L (13-75); Potassium 2.6 mmol/L (3.5-5.1)
[2025-08-06 18:39] LABS: Mucous, Urine 0 SEEN /hpf (<or=2+)
[2025-08-06] MEDS: 0.9% Normal Saline (1000mL) 1,000 ML 999 ML IV (18:43)
[2025-08-06 18:48] LABS: Color, Urine Yellow (Yellow); Glucose, Dipstick Normal (Normal); Ketone-Dipstick 5 mg/dl (Negative); Leukocyte Esterase-Dipstick 500 /ul (Negative); Nitrite-Dipstick Positive (Negative); Occult Blood-Urine 25 /ul (Negative); Protein-Dipstick 30 mg/dl (Negative); Specific Gravity, Urine 1.025 (1.002-1.030); Urine Bilirubin Dipstick 1 mg/dL (Negative)
[2025-08-06 19:10] LABS: Squamous Epithelial Cells - UA 5-10 SEEN /hpf (5-10)
[2025-08-06 19:12] LABS: Red Blood Cells-Urine 5-10 SEEN /hpf (0-5)
[2025-08-06 19:13] LABS: Transitional Epithelial - Ur 0-5 SEEN /hpf (0-5)
--- NOTE | 2025-08-06 21:02 | EKG12_ITS ---
Test Reason : HYPOXIA Blood Pressure : */* mmHG Vent. Rate : 79 BPM Atrial Rate : 79 BPM P-R Int : 194 ms QRS Dur : 96 ms QT Int : 436 ms P-R-T Axes : 51 -21 -18 degrees QTcB Int : 499 ms Sinus rhythm with Premature atrial complexes Inferior infarct , age undetermined QTcB >= 480 msec Abnormal ECG Confirmed by Leonidas Novoa ([id number]), editor greeting card DEIDRE MENDEZ ([id number]) on 08/13/2025 6:49:10 AM Referred By: KINGA Confirmed By: Leonidas Novoa
--- NOTE | 2025-08-06 21:10 | RAD_ITS ---
PROCEDURE: CHEST 1 VIEW (PORTABLE) 08/06/2025 REASON FOR EXAM: HYPOXIA TECHNIQUE: Frontal view of the chest. COMPARISON: CT chest 03/02/2023 FINDINGS: Hardware: None. Heart: The heart size is normal. Lungs: The lungs are clear. No pneumothorax or pleural effusion. Bones: The bones are unremarkable. RAD/Chest 1 View (Portable) IMPRESSION: No Acute Findings. Reading [facility]
[2025-08-06 21:40] LABS: Troponin T High Sensitivity 31 ng/L (<=14)
[2025-08-07 01:00] VITALS: BP 100/47; PULSE 69; RESP 18; O2SAT 97
[2025-08-07 03:00] VITALS: BP 112/82; PULSE 85; RESP 16; O2SAT 96
[2025-08-07 05:00] VITALS: BP 124/49; PULSE 76; RESP 16; O2SAT 93
== END 2025-08-07 06:01 | disposition home or self-care (01) ==
PROVIDERS: Emergency Provider Emergency Medicine; PCP Family Medicine; Visit Provider Emergency Medicine
DX: R10.9 Unspecified abdominal pain (principal); K86.1 Other chronic pancreatitis; E66.01 Morbid (severe) obesity due to excess calories; N39.0 Urinary tract infection, site not specified; Z87.891 Personal history of nicotine dependence; I10 Essential (primary) hypertension; E78.00 Pure hypercholesterolemia, unspecified; K21.9 Gastro-esophageal reflux disease without esophagitis; K52.9 Noninfective gastroenteritis and colitis, unspecified
CPT/HCPCS: 71045; 74177; 80053; 81001; 83690; 84484; 85025; 93005; 96361; 96374; 96375; 99285; Q9967; A4216; J2405